=== PATIENT | male | born 1960 | race Two or more races ===

== ENCOUNTER 2019-11-29 10:46 | Inpatient (IN) | payer MEDICAID ==
[2019-11-29] VITALS (7 sets, daily range): BP systolic 112–145; BP diastolic 62–81
[~2019-11-29] VITALS: Ht 167.6 cm; Wt 68.5 kg
--- NOTE | 2019-11-29 11:00 | NUR ---
ED Nurse Note: pt brought in by ambulance from home due to SOB. per pt, he lives with his son and his son tested positive on Covid19. pt also got tested last week and result came out negative but SOB got worse gradually and it was untolerable this morning. room air saturation 65%. pt currently on non breather mask 15L/min and saturating at 95%. SOB and labored breathing noted. pt aao x4 and cooperative. pt is in gown and on rn cardiac.
[2019-11-29] MEDS ORDERED: cefTRIAXone 1 GM in NS 55 ML IV SCH (11:15)
[2019-11-29] MEDS ORDERED: Azithromycin 500 MG in NS 275 ML IV ONE (11:15)
[2019-11-29 11:33] LABS: ANION GAP 15 mmol/L (5-15); BLOOD UREA NITROGEN 19 mg/dL (7-18); CALCIUM 8.7 MG/DL (8.5-10.1); CARBON DIOXIDE 21 MMOL/L (21-32); CHLORIDE 101 MMOL/L (98-107); POTASSIUM 4.5 MMOL/L (3.5-5.1); SODIUM 137 MMOL/L (136-145)
[2019-11-29 11:43] LABS: HEMATOCRIT 44.3 % (42.0-52.0); HEMOGLOBIN 15.2 G/DL (14.2-18.0); MEAN CORPUSCULAR VOLUME 87 FL (80-99); PLATELET COUNT 368 K/UL (150-450); RED BLOOD COUNT 5.08 M/UL (4.70-6.10); RED CELL DISTRIBUTION WIDTH 11.5 % (11.6-14.8); WHITE BLOOD COUNT 13.4 K/UL (4.8-10.8)
[2019-11-29 11:46] LABS: ALANINE AMINOTRANSFERASE 84 U/L (12-78); ALBUMIN 2.6 G/DL (3.4-5.0); ALBUMIN/GLOBULIN RATIO 0.5 (1.0-2.7); ALKALINE PHOSPHATASE 132 U/L (46-116); ASPARTATE AMINO TRANSFERASE 69 U/L (15-37); BILIRUBIN,TOTAL 1.3 MG/DL (0.2-1.0); CREATINE KINASE 145 U/L (26-308)
[2019-11-29 11:48] LABS: BILIRUBIN,DIRECT 0.5 MG/DL (0.0-0.3)
--- NOTE | 2019-11-29 11:57 | NUR ---
ED Nurse Note: x-ray at bedside.
--- NOTE | 2019-11-29 12:01 | Emergency Room Report ---
History of Present Illness General Chief Complaint: Dyspnea/Respdistress Source: Patient, EMS Present Illness HPI This patient is brought in by EMS for difficulty breathing for the past 3 days. The patient's son is positive for COVID-19 and he has been living with his son. EMS state that on their arrival his room air oxygen saturation was 65%. He was put on 15 L nonrebreather mask and had improvement in his O2 saturations to the mid 90s. There are no other complaints. Allergies: Coded Allergies: No Known Allergies (Unverified , 11/29/19) COVID-19 Screening Contact w/high risk pt: Yes Recent Travel to affected area: No Experienced COVID-19 symptoms?: Yes COVID-19 symptoms experienced: Shortness of Breath, Cough Patient History Past Medical History: see triage record, HTN Social History: Denies: smoking, alcohol use, drug use Reviewed Nursing Documentation: PMH: Agreed; PSxH: Agreed Nursing Documentation-PMH Past Medical History: No History, Except For Hx Hypertension: Yes Review of Systems All Other Systems: negative except mentioned in HPI Physical Exam Vital Signs Date Time Temp Pulse Resp B/P (MAP) Pulse Ox O2 Delivery O2 Flow Rate FiO2 11/29/19 10:38 125 22 139/85 (103) 93 Non-Rebreather 15.0 Sp02 EP Interpretation: reviewed, abnormal General Appearance: alert, GCS 15, mild distress - Tachypnea Head: normocephalic, atraumatic Eyes: bilateral eye normal inspection ENT: hearing grossly normal, normal pharynx, no angioedema, normal voice Neck: normal inspection, full range of motion Respiratory: normal breath sounds, no retraction, no accessory muscle use, speaking full sentences - on NRB Cardiovascular #1: no edema, tachycardia Gastrointestinal: normal inspection Rectal: deferred Musculoskeletal: normal inspection, normal range of motion, non-tender Neurologic: alert, motor strength/tone normal, oriented x3, sensory intact, responsive, speech normal Psychiatric: judgement/insight normal, memory normal, mood/affect normal, no suicidal/homicidal ideation Skin: no rash, normal color Medical Decision Making Diagnostic Impression: Primary Impression: Suspected COVID-19 virus infection Additional Impressions: Pneumonia Respiratory distress ER Course This patient presents with suspected COVID-19 ARDS. The patient is alert and oriented and able to follow instructions appropriately. He does have hypoxemia , however, the patient's hypoxemia is responsive to low levels of CPAP. The patient is also able to follow instructions and follow proning protocols. I considered rapid sequence intubation in this patient, however, currently the evolving but current practice in COVID-19 ARDS is to defer intubation as long as the patient is able to tolerate noninvasive ventilation as intubation has proven to worsen outcome in this particular patient population presenting in this manner. IV fluids were held as currently this is also felt to worsen the clinical progress in these patients. There is also data coming out of [facility] where the center of the [place] epidemic lies currently that has shown in this particular patient population, IM epinephrine 0.3 mg, IV atropine 0.4 mg IV and oral montelukast has shown if to be implemented early in the emergency department that better outcomes occur in these patients and many times they do not need to be intubated. This set of medications were given in the emergency department without complication. The patient was given broad- spectrum antibiotics as a precaution, although, I suspect COVID-19. This patient will be admitted to the ICU. This patient was evaluated in the context of the global COVID-19 pandemic, which necessitated consideration that the patient might be at risk for infection with the [id number] virus that causes COVID-19. Institutional protocols and algorithms that pertain to the evaluation of patients at risk for COVID-19 and the state of rapid change based on information released by multiple regulatory bodies including the CDC and federal and state organizations. These policies and algorithms were followed during the patient' s care in the ED. This patient is critically ill. This patient required complex medical decision- making, aggressive intervention, extensive laboratory workup and monitoring. Critical care time: 40 minutes. SEE EMR. Mild leukocytosis. Low lymphocytes. Elevated lactate. EKG Diagnostic Results Rate: tachycardiac Rhythm: other - s.tachycardia ST Segments: no acute changes Rhythm Strip Diag. Results EP Interpretation: yes Rate: 110's Rhythm: no PVC's, no ectopy, other - S.tachycardia Chest X-Ray Diagnostic Results Chest X-Ray Diagnostic Results : Chest X-Ray Ordered: Yes # of Views/Limited/Complete: 1 View Indication: Shortness of Breath EP Interpretation: Yes Interpretation: other - Diffuse interstitial opacities Impression: Other - See ABOVE. Pulmonary edema. Electronically Signed by: Sue Najera DO Last Vital Signs Date Time Temp Pulse Resp B/P (MAP) Pulse Ox O2 Delivery O2 Flow Rate FiO2 11/29/19 10:38 125 22 139/85 (103) 93 Non-Rebreather 15.0 Status: improved Disposition: ADMITTED INPATIENT Condition: Critical Referrals: NOT CHOSEN IPA/,REFERRING (PCP) Sue Najera DO Nov 29, 2019 12:01
[2019-11-29] MEDS ORDERED: Montelukast 10mg tablet ORAL ONE (12:30)
[2019-11-29] MEDS ORDERED: EPINEPHrine 1mg/1ml Amp IM ONE (12:30)
[2019-11-29] MEDS ORDERED: Atropine Sulfate 0.4mg/ml inj IVP ONE (12:30)
--- NOTE | 2019-11-29 13:00 | NUR ---
ED Nurse Note: received verbal order to reposition pt to Lt side and alternate later. pt was directed to lie on Lt side.
--- NOTE | 2019-11-29 13:03 | Diagnostic Imaging Report ---
Indication: Cough Technique: One view of the chest Comparison: none Findings: There are peripheral bilateral hazy infiltrates. The heart size is normal. The pleural spaces are clear. Impression: Bilateral infiltrates, most likely pneumonia. Pulmonary edema also possibility.
--- NOTE | 2019-11-29 14:00 | NUR ---
ED Nurse Note: pt directed to lie on Rt side.
--- NOTE | 2019-11-29 14:48 | NUR ---
ED Nurse Note: Dr Aguayo and Dr. Olivares consulting about pt's RR being between 30 to 40.
--- NOTE | 2019-11-29 14:59 | History and Physical ---
History of Present Illness General Reason for Hospitalization: Dyspnea/Respdistress Present Illness HPI 59-year-old male with PMH of HTN presents with acute respiratory distress. History is limited due to pt being Kyrgyz speaking and in acute respiratory distress, belt glass sander phone used as well as milking machine technician in room acting as belt glass sander. Patient states he was short of breath for 3 days, has mild cough, no hemoptysis, states his son was tested positive for COVID who he lives with. Pt denies F/C, abd pain, dysuria or diarrhea. On admission patient's SPO2 was 60 % on room air, ER physician placed patient placed on nonrebreather with no improvement, was given 1 dose of epinephrine, montelukast and atropine and then was started on BiPAP. CXR reviewed w/ b/l infiltrates. Pt to be admitted to ICU for further treatment and care. PMH: HTN FH: reviewed and not pertinent SH: denies tobacco, ETOH Sx: denies Allergies: NKDA Allergies: Coded Allergies: No Known Allergies (Unverified , 11/29/19) COVID-19 Screening Contact w/high risk pt: Yes Recent Travel to affected area: No Experienced COVID-19 symptoms?: Yes COVID-19 symptoms experienced: Shortness of Breath, Cough Patient History Limited by: language barrier, medical condition Healthcare decision maker N Resuscitation status Advanced Directive on File Review of Systems Constitutional: Denies: no symptoms, see HPI, chills, sweats, fever, malaise, weakness, other Eye: Denies: no symptoms, see HPI, eye pain, blurred vision, tearing, double vision, nose pain, nose congestion, acuity changes, discharge, other ENT: Denies: no symptoms, see HPI, ear pain, ear discharge, nose pain, nose congestion, throat pain, throat swelling, mouth pain, hearing loss, nasal discharge, other Cardiovascular: Denies: no symptoms, see HPI, chest pain, edema, palpitations, syncope, PND, other Gastrointestinal: Denies: no symptoms, see HPI, abdominal pain, constipation, diarrhea, nausea, vomiting, melena, hematemesis, other Genitourinary: Denies: no symptoms, see HPI, discharge, dysuria, frequency, hematuria, pain, retention, incontinence, urgency, vag bleed/dc, other Musculoskeletal: Denies: no symptoms, see HPI, back pain, gout, joint pain, joint swelling, muscle pain, muscle stiffness, other Skin: Denies: no symptoms, see HPI, rash, change in color, change in hair/nails , dryness, lesions, other Physical Exam Physical Exam Narrative General: A&O x 3, in acute respiratory distress, on BiPAP HEENT: NCAT, EOMi CV: tachycardic on exam Pulm: good airway movement in lungs b/l, conversationaly dyspnea, RR on monitor showed 35-50 GI: Soft, nontender, nondistended, bowel sounds present Ext: No lower extremity edema bilaterally Skin: warm, well perfused appearing Msk: Joints symmetrical in upper extremity and lower extremity bilaterally, no joint swelling. Neuro: CN 2-12 grossly intact bilaterally, no focal signs. Last 24 Hour Vital Signs Date Time Temp Pulse Resp B/P (MAP) Pulse Ox O2 Delivery O2 Flow Rate FiO2 11/29/19 12:45 99 30 59 100 11/29/19 11:00 123 35 Non-Rebreather 15.0 11/29/19 11:00 98.9 124 35 126/79 95 Non-Rebreather 15.0 11/29/19 10:38 125 22 139/85 (103) 93 Non-Rebreather 15.0 Laboratory Tests Test 11/29/19 11:00 11/29/19 12:45 White Blood Count 13.4 K/UL (4.8-10.8) H Red Blood Count 5.08 M/UL (4.70-6.10) Hemoglobin 15.2 G/DL (14.2-18.0) Hematocrit 44.3 % (42.0-52.0) Mean Corpuscular Volume 87 FL (80-99) Mean Corpuscular Hemoglobin 30.0 PG (27.0-31.0) Mean Corpuscular Hemoglobin Concent 34.3 G/DL (32.0-36.0) Red Cell Distribution Width 11.5 % (11.6-14.8) L Platelet Count 368 K/UL (150-450) Mean Platelet Volume 5.9 FL (6.5-10.1) L Neutrophils (%) (Auto) % (45.0-75.0) Lymphocytes (%) (Auto) % (20.0-45.0) Monocytes (%) (Auto) % (1.0-10.0) Eosinophils (%) (Auto) % (0.0-3.0) Basophils (%) (Auto) % (0.0-2.0) Differential Total Cells Counted 100 Neutrophils % (Manual) 89 % (45-75) H Lymphocytes % (Manual) 2 % (20-45) L Monocytes % (Manual) 8 % (1-10) Eosinophils % (Manual) 0 % (0-3) Basophils % (Manual) 0 % (0-2) Band Neutrophils 1 % (0-8) Platelet Estimate Adequate Platelet Morphology Normal Red Blood Cell Morphology Normal Sodium Level 137 MMOL/L (136-145) Potassium Level 4.5 MMOL/L (3.5-5.1) Chloride Level 101 MMOL/L (98-107) Carbon Dioxide Level 21 MMOL/L (21-32) Anion Gap 15 mmol/L (5-15) Blood Urea Nitrogen 19 mg/dL (7-18) H Creatinine 1.0 MG/DL (0.55-1.30) Estimat Glomerular Filtration Rate > 60 mL/min (>60) Glucose Level 133 MG/DL (74-106) H Lactic Acid Level 3.30 mmol/L (0.4-2.0) H 2.10 mmol/L (0.66-2.22) Calcium Level 8.7 MG/DL (8.5-10.1) Total Bilirubin 1.3 MG/DL (0.2-1.0) H Direct Bilirubin 0.5 MG/DL (0.0-0.3) H Aspartate Amino Transf (AST/SGOT) 69 U/L (15-37) H Alanine Aminotransferase (ALT/SGPT) 84 U/L (12-78) H Alkaline Phosphatase 132 U/L (46-116) H Total Creatine Kinase 145 U/L (26-308) Creatine Kinase MB 2.0 NG/ML (0.0-3.6) Creatine Kinase MB Relative Index 1.3 Troponin I 0.000 ng/mL (0.000-0.056) Total Protein 8.2 G/DL (6.4-8.2) Albumin 2.6 G/DL (3.4-5.0) L Globulin 5.6 g/dL Albumin/Globulin Ratio 0.5 (1.0-2.7) L Height (Feet): 5 Height (Inches): 7.00 Weight (Pounds): 190 Medications Current Medications Medications (Trade) Dose Ordered Sig/Vicki Route PRN Reason Start Time Stop Time Status Last Admin Dose Admin Ceftriaxone Sodium 1 gm/ Sodium Chloride 55 ml @ 110 mls/hr Q24H IV 11/29/19 11:15 11/30/19 11:14 11/29/19 11:14 Dextrose (Dextrose 50%) 25 ml Q30M PRN IV Hypoglycemia 11/29/19 14:15 02/27/20 14:14 Dextrose (Dextrose 50%) 50 ml Q30M PRN IV Hypoglycemia 11/29/19 14:15 02/27/20 14:14 Ondansetron HCl (Zofran) 4 mg Q6H PRN IVP Nausea & Vomiting 11/29/19 14:15 12/29/19 14:14 Assessment/Plan Assessment/Plan: 59-year-old male with PMH of HTN presents with acute respiratory distress. #Acute Hypoxic Respiratory Distress #Sepsis 2/2 PNA #CAP #COVID exposure, high suspicion #Transaminitis -admit to critical care unit -pt is at high risk of rapid decompensation and requires ICU level of care -pt was given atropine, epinephrine, Singulair in ED -pt was started on BiPAP by ER -COVID-19 ordered, pending -droplet isolation/precautions -Lactic acid 3.5 on admission, improved to 2.10 -CXR reviewed: b/l infiltrates suspicious for PNA -Transaminitis likely reactive/2/2 possible COVID -cont. to monitor LFTs -BCx ordered and pending -EKG reviewed, sinus tach, HR 115, QTc 437 -trop negative x1, no CP at this time -obtain d-dimer -Cont. supplemental O2 to maintain goal SpO2 92-96% -D/w Motor Vehicle Field Representative, Dr. Cortes, pt may need to be intubated if RR remains high -d/w ID, Dr. Rodriguez, start hydroxychloroquine, azithromycin, ceftriaxone #HTN -pt does not know home medications -hydralazine PRN DVT PPX: Lovenox Time spent on encounter: 76 mins, 45 mins spent on critical care time. Critical Care Services performed include: EKG Review Hemodynamic measurement interpretation Laboratory data review and interpretation Radiology image review and interpretation Discussion of patient's care with ER physician, ICU team, Nursing staff, ID and Pulm. Time of note doesn't reflect time of encounter. Theodore Aguayo M.D. Nov 29, 2019 14:59
[2019-11-29] MEDS ORDERED: Hydroxychloroquine Fact Sheet MISC ONE (15:00)
--- NOTE | 2019-11-29 15:06 | NUR ---
ED Nurse Note: REPORT GIVEN TO DARYA DOOLEY BY MANUEL JIN RN.
--- NOTE | 2019-11-29 15:30 | NUR ---
NURSE NOTES: Report received from ED Nurse, Nate Mendoza, RN; however, pt remains in ED at this time as pt is on Airborne isolation and room is not ready as of yet.
--- NOTE | 2019-11-29 15:40 | NUR ---
ED Nurse Note: explained about Hydroxychloroquine and pt agreed.
--- NOTE | 2019-11-29 17:00 | NUR ---
ED Nurse Note: per CN in ICU, pt needs negative pressure room due to having Bipap. they are rearranging the room. will wait until ICU is ready with a room.
--- NOTE | 2019-11-29 19:05 | NUR ---
HAND-OFF: Report given to DARYA Carson. Pt is on their way up to the unit from the ED.
--- NOTE | 2019-11-29 19:06 | NUR ---
NURSE NOTES: Received report from DARYA Pires. patient arrived on unit via gurney from ER. patient awake alert oriented x4. respirations shallow and tachypnic on nonrebreather for transport and changed to CPAP FiO2 100% oxygen saturation 94%. right AC PIV gauge 20 clean and patent saline lock. skin warm dry intact with bilateral lower extremity rash up to and scattered over abdomen. temp 100.5F axillary. will continue to monitor. bed locked lowest position call light within reach.
--- NOTE | 2019-11-29 22:00 | NUR ---
NURSE NOTES: Paged Dr. Sroiano to report temp 100.6F axillary and abnormal labs. message left. awaiting call back. patient on CPAP oxygen saturation 93%. patient repositioned self. will continue to monitor.
--- NOTE | 2019-11-29 22:10 | NUR ---
NURSE NOTES: Dr. Lombardi returned page. order received, read back, and carried out. will continue to monitor.
[2019-11-30] VITALS (24 sets, daily range): BP systolic 99–142; BP diastolic 60–87
--- NOTE | 2019-11-30 | NUR ---
NURSE NOTES: patient awake alert and oriented. patient on CPAP FiO2 100% with oxygen saturation 95% and respirations tachypneic. BP 112/70 HR 112. patient denies pain. patient repositioned self. will continue to monitor.
--- NOTE | 2019-11-30 02:00 | NUR ---
NURSE NOTES: patient asleep arousable to name and oriented. BP 106/69 HR 95 RR 37 on CPAP with FiO2 100% and oxygen saturation 93%. patient kept NPO except for meds and ice. patient repositioned self. will continue to monitor.
--- NOTE | 2019-11-30 04:00 | NUR ---
NURSE NOTES: patient asleep arousable to name and oriented. patient on CPAP FiO2 100% with oxygen saturation 94%. BP 114/74 HR 100 Temp 98.8F axillary, RR 40 with no cough at this time. patient denies pain. patient used urinal to void 250ml dark marge urine. assisted bed bath, patient repositioned self. will continue to monitor.
--- NOTE | 2019-11-30 06:00 | NUR ---
NURSE NOTES: patient asleep arousable to name and oriented x4. patient on CPAP with oxygen saturation 93%. BP 123/80 HR 107, temp 98.9F axillary. right AC PIV gauge 20 clean and asymptomatic. skin warm dry with rashes scattered over abdomen. will continue to monitor.
--- NOTE | 2019-11-30 07:39 | NUR ---
HAND-OFF: Report given to DARYA Ambrose.
[2019-11-30 07:52] LABS: HEMATOCRIT 40.8 % (42.0-52.0); HEMOGLOBIN 14.5 G/DL (14.2-18.0); MEAN CORPUSCULAR VOLUME 88 FL (80-99); PLATELET COUNT 377 K/UL (150-450); RED BLOOD COUNT 4.66 M/UL (4.70-6.10); RED CELL DISTRIBUTION WIDTH 11.6 % (11.6-14.8); WHITE BLOOD COUNT 10.6 K/UL (4.8-10.8)
--- NOTE | 2019-11-30 08:00 | NUR ---
NURSE NOTES: Received report from Carrie Quiroga RN. Patient alert and oriented x 4, anxious and restless. ST 106 on cable engineer outside plant. Patient receiving O2 via CPAP with FiO2 100%, patient's respiratory rate is high 40s-low 50s, left message for Dr. Cortes. Right AC 20g IV site patent and asymptomatic. Bed locked in lowest position with side rails up x 3. All needs attended to. Call light within reach. Will continue to monitor.
[2019-11-30 08:19] LABS: ALANINE AMINOTRANSFERASE 68 U/L (12-78); ALBUMIN 2.2 G/DL (3.4-5.0); ALBUMIN/GLOBULIN RATIO 0.4 (1.0-2.7); ALKALINE PHOSPHATASE 126 U/L (46-116); ANION GAP 12 mmol/L (5-15); ASPARTATE AMINO TRANSFERASE 57 U/L (15-37); BILIRUBIN,TOTAL 1.2 MG/DL (0.2-1.0); BLOOD UREA NITROGEN 24 mg/dL (7-18); CALCIUM 9.2 MG/DL (8.5-10.1); CARBON DIOXIDE 23 MMOL/L (21-32); CHLORIDE 103 MMOL/L (98-107); CREATININE 0.9 MG/DL (0.55-1.30); POTASSIUM 4.6 MMOL/L (3.5-5.1); SODIUM 137 MMOL/L (136-145)
[2019-11-30 08:24] LABS: BILIRUBIN,DIRECT 0.6 MG/DL (0.0-0.3)
--- NOTE | 2019-11-30 08:32 | NUR ---
NURSE NOTES: Dr. Soriano notified of upward trending lactic acid, previously 2.10 and now 2.30, lactic acid reflex order already in place. Also made aware of respiratory rate as high as 50s, patient very anxious. No new orders received. Will continue to monitor.
--- NOTE | 2019-11-30 09:14 | NUR ---
NURSE NOTES: Received call back from Dr. Cortes, notified of patient's respiratory rate as high as low 50s on CPAP with FiO2 100%. Received order for ABG. Will report results.
--- NOTE | 2019-11-30 10:05 | NUR ---
NURSE NOTES: Dr. Duarte at bedside, covering for Dr. Soriano, made aware of patient's status, awaiting ABG results. Patient needs DVT and GI prophylaxis. Dr. Duarte to place orders.
--- NOTE | 2019-11-30 10:43 | NUR ---
NURSE NOTES: Left message for Dr. Cortes regarding ABG results. Awaiting call back.
--- NOTE | 2019-11-30 11:30 | NUR ---
NURSE NOTES: Dr. Cortes at bedside, aware of ABG results. Patient's respiratory rate still between 30-50s
[2019-11-30] MEDS: Pantoprazole Inj IVP SCH (12:52)
[2019-11-30] MEDS: Heparin 5000 units/ml inj SUBQ SCH ×2 (13:01→21:01)
--- NOTE | 2019-11-30 13:20 | NUR ---
NURSE NOTES: Lactic acid drawn and sent to lab.
--- NOTE | 2019-11-30 13:41 | General Progress Note ---
Assessment/Plan Assessment/Plan: 59-year-old male with PMH of HTN presents with acute respiratory distress. #Acute Hypoxic Respiratory Failure #Severe sepsis #COVID19 positive #CAP #Transaminitis -continue ICU level of care -pt is at high risk of rapid decompensation and requires continued ICU level of care -continue BiPAP -COVID-19 positive -droplet isolation/precautions -Lactic acid 3.5 on admission, improved -CXR reviewed: b/l infiltrates suspicious for PNA -Transaminitis likely reactive/2/2 possible COVID -cont. to monitor LFTs -BCx ordered and pending -EKG reviewed, sinus tach, HR 115, QTc 437 -trop negative x1, no CP at this time -obtain d-dimer -Cont. supplemental O2 to maintain goal SpO2 92-96% -D/w Technical Assistant, Dr. Cortes, pt may need to be intubated if RR remains high -d/w ID, Dr. Rodriguez, cont hydroxychloroquine, azithromycin, ceftriaxone #HTN -CTM -hydralazine PRN DVT PPX: Lovenox Time spent on encounter: 75 mins, 40 mins spent on critical care time. Critical Care Services performed include: EKG Review Hemodynamic measurement interpretation Laboratory data review and interpretation Radiology image review and interpretation ABG interpretation Discussion of patient's care with ICU team, Nursing staff, ID and Pulm. Time of note doesn't reflect time of encounter. Subjective Date patient seen: Nov 30, 2019 Time patient seen: 09:00 ROS Limited/Unobtainable: Yes Allergies: Coded Allergies: No Known Allergies (Unverified , 11/29/19) Subjective Follow up for acute hypoxic resp failure, COVID19 positive Patient remains on NIPPV 100% fiO2 Spoke with RN at bedside Objective Last 24 Hour Vital Signs Date Time Temp Pulse Resp B/P (MAP) Pulse Ox O2 Delivery O2 Flow Rate FiO2 11/30/19 13:19 105 44 93 100 11/30/19 13:00 109 43 120/72 (88) 91 11/30/19 12:00 Bi-pap 11/30/19 12:00 99.1 111 43 117/70 (86) 92 11/30/19 12:00 100 11/30/19 11:57 110 11/30/19 11:00 106 43 117/75 (89) 94 11/30/19 10:49 107 38 94 100 11/30/19 10:00 109 46 128/75 (92) 93 11/30/19 09:00 106 44 116/78 (91) 94 11/30/19 09:00 103 45 93 100 11/30/19 08:42 107 11/30/19 08:00 98.0 108 34 121/72 (88) 95 11/30/19 08:00 Bi-pap 11/30/19 08:00 100 11/30/19 07:00 111 30 116/74 (88) 94 11/30/19 06:59 104 47 94 100 11/30/19 06:00 107 45 123/80 (94) 93 11/30/19 05:00 96 43 107/68 (81) 93 11/30/19 04:00 100 11/30/19 04:00 97 11/30/19 04:00 98.8 100 42 114/74 (87) 94 11/30/19 04:00 Bi-pap 11/30/19 03:00 94 34 119/72 (88) 96 11/30/19 02:00 97 42 104/67 (79) 92 11/30/19 01:00 97 39 99/60 (73) 90 11/30/19 00:00 Bi-pap 11/30/19 00:00 100.0 107 43 106/81 (89) 92 11/29/19 23:29 100.3 11/29/19 23:05 95 42 96 100 11/29/19 23:00 114 36 145/77 (99) 88 11/29/19 22:00 120 34 112/80 (91) 91 11/29/19 21:30 115 42 118/62 (80) 92 11/29/19 21:00 111 37 117/77 (90) 93 11/29/19 20:30 110 38 132/81 (98) 96 11/29/19 20:00 113 11/29/19 20:00 100.5 115 40 125/81 (96) 94 11/29/19 20:00 Bi-pap 11/29/19 20:00 113 11/29/19 20:00 100 11/29/19 19:40 Bi-Pap 11/29/19 19:39 Bi-Pap 11/29/19 19:00 107 36 92 Bi-Pap 100 11/29/19 19:00 109 33 95 100 11/29/19 17:05 92 47 96 100 11/29/19 15:05 82 50 95 100 Intake and Output 11/29/19 11/30/19 19:00 07:00 Intake Total 330 ml Output Total 450 ml Balance 330 ml -450 ml IV Total 330 ml Output Urine Total 450 ml # Voids 2 Laboratory Tests 11/30/19 06:32: White Blood Count 10.6, Red Blood Count 4.66L, Hemoglobin 14.5, Hematocrit 40.8L , Mean Corpuscular Volume 88, Mean Corpuscular Hemoglobin 31.1H, Mean Corpuscular Hemoglobin Concent 35.4, Red Cell Distribution Width 11.6, Platelet Count 377, Mean Platelet Volume 5.7L, Neutrophils (%) (Auto) , Lymphocytes (%) ( Auto) , Monocytes (%) (Auto) , Eosinophils (%) (Auto) , Basophils (%) (Auto) , Differential Total Cells Counted 100, Neutrophils % (Manual) 90H, Lymphocytes % (Manual) 6L, Monocytes % (Manual) 4, Eosinophils % (Manual) 0, Basophils % ( Manual) 0, Band Neutrophils 0, Platelet Estimate Adequate, Platelet Morphology Normal, Red Blood Cell Morphology Normal, Sodium Level 137, Potassium Level 4.6 , Chloride Level 103, Carbon Dioxide Level 23, Anion Gap 12, Blood Urea Nitrogen 24H, Creatinine 0.9, Estimat Glomerular Filtration Rate > 60, Glucose Level 112H, Lactic Acid Level 2.30H, Calcium Level 9.2, Total Bilirubin 1.2H, Direct Bilirubin 0.6H, Aspartate Amino Transf (AST/SGOT) 57H, Alanine Aminotransferase (ALT/SGPT) 68, Alkaline Phosphatase 126H, Total Protein 7.5, Albumin 2.2L, Globulin 5.3, Albumin/Globulin Ratio 0.4L 11/30/19 10:15: Arterial Blood pH 7.409, Arterial Blood Partial Pressure CO2 35.6, Arterial Blood Partial Pressure O2 74.2L, Arterial Blood HCO3 22.0, Arterial Blood Oxygen Saturation 94.6L, Arterial Blood Base Excess -2.0, Melecio Test Positive 11/30/19 12:30: Lactic Acid Level [Pending] Height (Feet): 5 Height (Inches): 6.00 Weight (Pounds): 190 General Appearance: lethargic, other - On BiPAP Cardiovascular: normal rate, regular rhythm Respiratory/Chest: lungs clear, normal breath sounds, no respiratory distress Abdomen: non tender, soft Bernabe Cadet MD Nov 30, 2019 13:41
--- NOTE | 2019-11-30 15:15 | NUR ---
NURSE NOTES: Ceftriaxone 1g IV ordered by Dr. Casillas, awaiting pharmacy delivery of medication.
[2019-11-30] MEDS: cefTRIAXone 1 GM in D5W 50 ML IVPB SCH (16:18)
--- NOTE | 2019-11-30 17:13 | NUR ---
NURSE NOTES: Patient requesting water, educated on NPO status and high risk of aspiration, verbalized understanding, reinforcement needed.
--- NOTE | 2019-11-30 17:40 | NUR ---
NURSE NOTES: Dr. Casillas at bedside, updated on patient's status, afebrile, due meds given.
--- NOTE | 2019-11-30 18:13 | NUR ---
NURSE NOTES: Dr. Duarte notified of increasing lactic acid level of 2.5. Ordered next lactic acid lab draw for 6 hours after last draw.
--- NOTE | 2019-11-30 18:27 | Infectious Diseases Prog Note ---
Assessment/Plan Assessment/Plan Full consult dictated; A) 1) covid-19 virus infection with pna, ? cap, sepsis, leukocytosis, fevers 2) on bipap, hypoxia 3) allergies - nkda P) 1) ceftriaxone, doxycycline 2) hydroxychloroquine for 5 days 3) icu care 4) thank you Subjective Allergies: Coded Allergies: No Known Allergies (Unverified , 11/29/19) Objective Vital Signs Last 24 Hour Vital Signs Date Time Temp Pulse Resp B/P (MAP) Pulse Ox O2 Delivery O2 Flow Rate FiO2 11/30/19 17:22 112 42 94 100 11/30/19 17:00 110 39 140/87 (104) 92 11/30/19 16:01 111 11/30/19 16:00 Bi-pap 11/30/19 16:00 97.8 111 41 130/76 (94) 91 11/30/19 16:00 100 11/30/19 15:00 105 46 90 100 11/30/19 15:00 110 40 112/77 (89) 93 11/30/19 14:00 105 41 102/61 (75) 92 11/30/19 13:19 105 44 93 100 11/30/19 13:00 109 43 120/72 (88) 91 11/30/19 12:00 Bi-pap 11/30/19 12:00 99.1 111 43 117/70 (86) 92 11/30/19 12:00 100 11/30/19 11:57 110 11/30/19 11:00 106 43 117/75 (89) 94 11/30/19 10:49 107 38 94 100 11/30/19 10:00 109 46 128/75 (92) 93 11/30/19 09:00 106 44 116/78 (91) 94 11/30/19 09:00 103 45 93 100 11/30/19 08:42 107 11/30/19 08:00 98.0 108 34 121/72 (88) 95 11/30/19 08:00 Bi-pap 11/30/19 08:00 100 11/30/19 07:00 111 30 116/74 (88) 94 11/30/19 06:59 104 47 94 100 11/30/19 06:00 107 45 123/80 (94) 93 11/30/19 05:00 96 43 107/68 (81) 93 11/30/19 04:00 100 11/30/19 04:00 97 11/30/19 04:00 98.8 100 42 114/74 (87) 94 11/30/19 04:00 Bi-pap 11/30/19 03:00 94 34 119/72 (88) 96 11/30/19 02:00 97 42 104/67 (79) 92 11/30/19 01:00 97 39 99/60 (73) 90 11/30/19 00:00 Bi-pap 11/30/19 00:00 100.0 107 43 106/81 (89) 92 11/29/19 23:29 100.3 11/29/19 23:05 95 42 96 100 11/29/19 23:00 114 36 145/77 (99) 88 11/29/19 22:00 120 34 112/80 (91) 91 11/29/19 21:30 115 42 118/62 (80) 92 11/29/19 21:00 111 37 117/77 (90) 93 11/29/19 20:30 110 38 132/81 (98) 96 11/29/19 20:00 113 11/29/19 20:00 100.5 115 40 125/81 (96) 94 11/29/19 20:00 Bi-pap 11/29/19 20:00 113 11/29/19 20:00 100 11/29/19 19:40 Bi-Pap 11/29/19 19:39 Bi-Pap 11/29/19 19:00 107 36 92 Bi-Pap 100 11/29/19 19:00 109 33 95 100 Height (Feet): 5 Height (Inches): 6.00 Weight (Pounds): 190 Laboratory Tests Test 11/30/19 06:32 11/30/19 10:15 11/30/19 12:30 11/30/19 17:10 White Blood Count 10.6 K/UL (4.8-10.8) Red Blood Count 4.66 M/UL (4.70-6.10) L Hemoglobin 14.5 G/DL (14.2-18.0) Hematocrit 40.8 % (42.0-52.0) L Mean Corpuscular Volume 88 FL (80-99) Mean Corpuscular Hemoglobin 31.1 PG (27.0-31.0) H Mean Corpuscular Hemoglobin Concent 35.4 G/DL (32.0-36.0) Red Cell Distribution Width 11.6 % (11.6-14.8) Platelet Count 377 K/UL (150-450) Mean Platelet Volume 5.7 FL (6.5-10.1) L Neutrophils (%) (Auto) % (45.0-75.0) Lymphocytes (%) (Auto) % (20.0-45.0) Monocytes (%) (Auto) % (1.0-10.0) Eosinophils (%) (Auto) % (0.0-3.0) Basophils (%) (Auto) % (0.0-2.0) Differential Total Cells Counted 100 Neutrophils % (Manual) 90 % (45-75) H Lymphocytes % (Manual) 6 % (20-45) L Monocytes % (Manual) 4 % (1-10) Eosinophils % (Manual) 0 % (0-3) Basophils % (Manual) 0 % (0-2) Band Neutrophils 0 % (0-8) Platelet Estimate Adequate Platelet Morphology Normal Red Blood Cell Morphology Normal Sodium Level 137 MMOL/L (136-145) Potassium Level 4.6 MMOL/L (3.5-5.1) Chloride Level 103 MMOL/L (98-107) Carbon Dioxide Level 23 MMOL/L (21-32) Anion Gap 12 mmol/L (5-15) Blood Urea Nitrogen 24 mg/dL (7-18) H Creatinine 0.9 MG/DL (0.55-1.30) Estimat Glomerular Filtration Rate > 60 mL/min (>60) Glucose Level 112 MG/DL (74-106) H Lactic Acid Level 2.30 mmol/L (0.4-2.0) H 2.10 mmol/L (0.4-2.0) H 2.50 mmol/L (0.66-2.22) H Calcium Level 9.2 MG/DL (8.5-10.1) Total Bilirubin 1.2 MG/DL (0.2-1.0) H Direct Bilirubin 0.6 MG/DL (0.0-0.3) H Aspartate Amino Transf (AST/SGOT) 57 U/L (15-37) H Alanine Aminotransferase (ALT/SGPT) 68 U/L (12-78) Alkaline Phosphatase 126 U/L (46-116) H Total Protein 7.5 G/DL (6.4-8.2) Albumin 2.2 G/DL (3.4-5.0) L Globulin 5.3 g/dL Albumin/Globulin Ratio 0.4 (1.0-2.7) L Arterial Blood pH 7.409 (7.350-7.450) Arterial Blood Partial Pressure CO2 35.6 mmHg (35.0-45.0) Arterial Blood Partial Pressure O2 74.2 mmHg (75.0-100.0) L Arterial Blood HCO3 22.0 mmol/L (22.0-26.0) Arterial Blood Oxygen Saturation 94.6 % (95-100) L Arterial Blood Base Excess -2.0 (-2-2) Melecio Test Positive Current Medications Medications (Trade) Dose Ordered Sig/Vicki Route PRN Reason Start Time Stop Time Status Last Admin Dose Admin Acetaminophen (Tylenol) 650 mg Q6H PRN ORAL Temp >100.5 11/29/19 21:00 12/29/19 20:59 11/29/19 22:59 Ceftriaxone Sodium 1 gm/ Dextrose 50 ml @ 100 mls/hr Q24H IVPB 11/30/19 15:15 12/07/19 15:14 11/30/19 16:18 Dextrose (Dextrose 50%) 25 ml Q30M PRN IV Hypoglycemia 11/29/19 14:15 02/27/20 14:14 Dextrose (Dextrose 50%) 50 ml Q30M PRN IV Hypoglycemia 11/29/19 14:15 02/27/20 14:14 Doxycycline Hyclate 100 mg/ Dextrose 100 ml @ 100 mls/hr Q12HR IV 11/30/19 21:00 12/07/19 20:59 Heparin Sodium (Porcine) (Heparin 5000 units/ml) 5,000 units EVERY 8 HOURS SUBQ 11/30/19 14:00 01/14/20 13:59 11/30/19 13:01 Hydralazine HCl (Apresoline) 10 mg Q4H PRN IV For High Blood Pressure 11/29/19 15:15 02/27/20 15:14 Hydroxychloroquine Sulfate (Plaquenil) 200 mg 0900,2100 ORAL 11/30/19 09:00 4/21/20 21:01 11/30/19 09:11 Ondansetron HCl (Zofran) 4 mg Q6H PRN IVP Nausea & Vomiting 11/29/19 14:15 12/29/19 14:14 Pantoprazole (Protonix) 40 mg DAILY IVP 11/30/19 12:15 12/30/19 12:14 11/30/19 12:52 Ilsa Rodriguez MD Nov 30, 2019 18:27
--- NOTE | 2019-11-30 18:58 | NUR ---
HAND-OFF: Report given to Carrie Quiroga RN.
--- NOTE | 2019-11-30 19:00 | NUR ---
NURSE NOTES: patient received from DARYA Ambrose. patient awake alert oriented x4. BP 132/82 HR 110 RR 38 with patient on CPAP with FiO2 100%. patient denies pain. right AC PIV gauge 20 clean and asymptomatic. will continue to monitor. bed locked lowest position call light within reach.
--- NOTE | 2019-11-30 19:57 | NUR ---
RESPIRATORY NOTE: Received pt on CPAP 10, 100%. Pt is on a Full Face mask, skin intact, no redness/breakdowns noted. Foam tape applied on forehead/cheeks/chin to prevent mask irritations. Pt is alert/awake, follows commands. B/S louise. diminished, nonproductive cough. BiPAP plugged into red outlet, alarms on & audible. Will continue to monitor pt.
--- NOTE | 2019-11-30 21:15 | Consultation ---
DATE OF CONSULTATION: 11/30/2019 PULMONARY CONSULTATION HISTORY OF PRESENT ILLNESS: This is a 59-year-old male who was admitted overnight to the ICU with respiratory distress. The patient has a previous history of hypertension only, however, has been living at home with other members who have tested positive for COVID-19. The patient came in shortness of breath. He was placed on a BiPAP by the ER physician. Currently, he remains on CPAP, however, is tachypneic. ABG is adequate with pO2 of 73 on 100% through CPAP. X-ray shows peripheral densities suggestive of COVID-19. The patient denies any hemoptysis or sore throat. The patient did receive epinephrine yesterday and atropine and was placed on CPAP. PAST MEDICAL HISTORY: Hypertension. PAST SURGICAL HISTORY: None. SOCIAL HISTORY: Denies alcohol, tobacco usage. ALLERGIES: None. REVIEW OF SYSTEMS: Denies any headaches, hematemesis, melena, hematochezia, night sweats, or weight loss. PHYSICAL EXAMINATION: GENERAL: Reveals a 59-year-old male. VITAL SIGNS: Blood pressure is 130/60, heart rate 120, respirations 42, O2 saturation 96% on CPAP. HEENT: Unremarkable. CHEST: Decreased breath sounds bilaterally with normal heart sounds. ABDOMEN: Soft. EXTREMITIES: There is no edema. LABORATORY AND DIAGNOSTIC DATA: ABG shows pH 7.40, pCO2 35, pO2 74. CBC and chemistry is unremarkable. Chemistries are normal except for a lactic acid of 3.3, now 2.3. IMPRESSION: 1. Bilateral pneumonia. 2. High suspicion of COVID-19. 3. Impending respiratory failure. DISCUSSION: Admit. Keep in ICU. Keep on isolation. Broad-spectrum antibiotics with the addition of Plaquenil as well as azithromycin. Blood pressure control. Low threshold for intubation. We will follow carefully. Sushil Cortes M.D. DR: Annemarie JOB#: [id number] CC: SABRA
--- NOTE | 2019-11-30 22:00 | NUR ---
NURSE NOTES: patient awake alert and oriented. BP115/71 HR 110 RR 43 Temp 100.6F axillary. prn tylenol administered. patient on CPAP 10 FiO2 100% oxygen saturation 96%. patient denies pain. right forearm Gauge 20 PIV started. patient voided in urinal dark marge urine.
[2019-12-01] VITALS (24 sets, daily range): BP systolic 104–151; BP diastolic 63–94
--- NOTE | 2019-12-01 | NUR ---
NURSE NOTES: patient awake alert and oriented. BP104/69 HR 103 RR 37. patient on CPAP 10 FiO2 80% oxygen saturation 94%. patient denies pain. right forearm Gauge 20 PIV clean and asymptomatic. patient repositioned self.
--- NOTE | 2019-12-01 02:00 | NUR ---
NURSE NOTES: patient awake alert and oriented. BP112/66 HR 102 RR 39 and afebrile. patient on CPAP 10 FiO2 80% oxygen saturation 95%. patient stated eye dryness, RT changed CPAP mask. right forearm Gauge 20 PIV clean and asymptomatic. patient repositioned self. will continue to monitor.
--- NOTE | 2019-12-01 04:00 | NUR ---
NURSE NOTES: patient awake alert and oriented. BP126/79 HR 105 RR 46 and afebrile. patient on CPAP 10 FiO2 80% oxygen saturation 99%. right forearm Gauge 20 PIV clean and asymptomatic. patient repositioned self, and assisted with bath. patient swabed for MRSA nares but refused VRE rectal swab. will continue to monitor.
--- NOTE | 2019-12-01 05:14 | Consultation ---
DATE OF CONSULTATION: 11/30/2019 INFECTIOUS DISEASES CONSULTATION CONSULTING PHYSICIAN: Ilsa Rodriguez MD. ATTENDING PHYSICIAN: Dorian Soriano MD. REFERRING PHYSICIAN: Dorian Soriano MD, and Dr. Aguayo. REASON FOR CONSULTATION: COVID-19 virus infection, pneumonia, sepsis, leukocytosis, fevers. CHIEF COMPLAINT: The patient's chief complaint coming into the hospital is COVID-19 virus infection. HISTORY OF PRESENT ILLNESS: This is a 59-year-old male who was in the ICU on BiPAP, currently with hypoxia. The patient is positive for COVID-19 virus infection with pneumonia. The patient is septic with elevated white count, fevers, and possible community-acquired pneumonia. Infectious Diseases consultation was requested. He is on doxycycline, Rocephin, and hydroxychloroquine. REVIEW OF SYSTEMS: CONSTITUTIONAL: The patient with limited review of systems, on BiPAP, short of breath. He has fevers. No pressors. CARDIAC: No pressors. GASTROINTESTINAL: No nausea, vomiting, or diarrhea. GENITOURINARY: He has a Joe. PULMONARY: He is short of breath and hypoxic. PAST MEDICAL HISTORY: The patient has a past medical history of hypertension. No diabetes history. ALLERGIES: No known drug allergies. SOCIAL HISTORY: Negative for smoking, alcohol, or drug abuse. FAMILY HISTORY: Noncontributory. MEDICATIONS: Noted and reviewed. He is on doxycycline, Rocephin, hydroxychloroquine, Protonix, hydralazine, Zofran, and IV fluids. PHYSICAL EXAMINATION: VITAL SIGNS: Temperature 97.8, pulse rate 112, respiratory rate 42, blood pressure 140/87, saturation 94% on FiO2 to 100% on BiPAP. T-max 100.5. GENERAL: Short of breath, on BiPAP. HEART: Regular. No gallop or murmur. Tachycardic. ABDOMEN: Soft. Positive bowel sounds. LUNGS: Bilateral rhonchi and rales. SKIN: No rash. MUSCULOSKELETAL: No effusion. LINE SITES: Without phlebitis. PERIPHERAL VASCULAR: No cyanosis. GENITOURINARY: He has a Joe. Urine is slightly cloudy. NEUROLOGIC: Alert and responsive. LABORATORY AND DIAGNOSTIC DATA: On admission, white count 13.4, hemoglobin 15.2. Now, white count 10.6, hemoglobin 14.5. Creatinine 0.9. Lactic acid is elevated. LFTs were elevated. Cultures pending. Imaging studies, chest x-ray with bilateral infiltrates, most likely pneumonia. Per the records, COVID-19 virus PCR testing positive. ASSESSMENT AND PLAN: 1. The patient has COVID-19 virus infection with pneumonia, rule out community-acquired pneumonia, sepsis, leukocytosis, and fevers. Continue Rocephin and doxycycline to cover CAP pneumonia and sepsis. Continue hydroxychloroquine for 5-day course. Continue BiPAP. The patient may need intubation. Continue the supportive care and ICU care. Prognosis is quite guarded. 2. Hypertension. 3. No known allergies. 4. Social history negative. 5. Family history noncontributory. 6. MAR was noted. 7. Case discussed with RN. 8. Continue treatment per primary consultants. Ilsa Rodriguez M.D. DR: José JOB#: [id number] CC:
--- NOTE | 2019-12-01 06:00 | NUR ---
NURSE NOTES: patient awake alert and oriented. BP104/53 HR 115 RR 52 and afebrile. patient on CPAP 10 FiO2 80% oxygen saturation 99%. patient encouraged to deep breath, patient verbalized understanding. right forearm Gauge 20 PIV clean and asymptomatic. patient repositioned self, will continue to monitor.
[2019-12-01] MEDS: Heparin 5000 units/ml inj SUBQ SCH ×3 (06:14→20:13)
[2019-12-01 06:44] LABS: HEMATOCRIT 40.6 % (42.0-52.0); HEMOGLOBIN 14.1 G/DL (14.2-18.0); MEAN CORPUSCULAR VOLUME 89 FL (80-99); PLATELET COUNT 453 K/UL (150-450); RED BLOOD COUNT 4.56 M/UL (4.70-6.10); RED CELL DISTRIBUTION WIDTH 11.6 % (11.6-14.8); WHITE BLOOD COUNT 15.8 K/UL (4.8-10.8)
[2019-12-01 07:24] LABS: ALANINE AMINOTRANSFERASE 63 U/L (12-78); ALBUMIN 2.2 G/DL (3.4-5.0); ALBUMIN/GLOBULIN RATIO 0.4 (1.0-2.7); ALKALINE PHOSPHATASE 121 U/L (46-116); ANION GAP 13 mmol/L (5-15); ASPARTATE AMINO TRANSFERASE 46 U/L (15-37); BILIRUBIN,TOTAL 1.3 MG/DL (0.2-1.0); BLOOD UREA NITROGEN 26 mg/dL (7-18); CARBON DIOXIDE 25 MMOL/L (21-32); CHLORIDE 103 MMOL/L (98-107); CREATININE 0.9 MG/DL (0.55-1.30); POTASSIUM 4.4 MMOL/L (3.5-5.1); SODIUM 140 MMOL/L (136-145)
[2019-12-01 07:27] LABS: BILIRUBIN,DIRECT 0.6 MG/DL (0.0-0.3)
--- NOTE | 2019-12-01 07:30 | NUR ---
HAND-OFF: Report given to DARYA Jacome.
--- NOTE | 2019-12-01 08:38 | Diagnostic Imaging Report ---
EXAM: XR Chest, 1 View CLINICAL HISTORY: ABN CHST TECHNIQUE: Frontal view of the chest. COMPARISON: Chest x-ray dated 11/29/19 FINDINGS: Lungs: Persistent diffuse peripheral groundglass opacities, not significantly changed, concerning for pneumonia. Pleural space: Unremarkable. The costophrenic angles are sharp. No visible pneumothorax. Heart: Unremarkable. No cardiomegaly. Mediastinum: Unremarkable. Bones/joints: Mild degenerative changes throughout the visualized spine. Tubes, lines and devices: Telemetry leads overlie the thorax. IMPRESSION: No significant change compared to the prior chest x-ray. Persistent diffuse peripheral groundglass opacities, concerning for pneumonia.
[2019-12-01] MEDS: Pantoprazole Inj IVP SCH (09:30)
--- NOTE | 2019-12-01 10:01 | NUR ---
NURSE NOTES: Dr. Cotres updated on patient respiratory status while on CPAP with pressure of 10 and on fio2 at 100%. he still remains with rr of 35-43 shallow and fast
--- NOTE | 2019-12-01 10:54 | Pulmonology Progress Note ---
Assessment/Plan Assessment/Plan IMPRESSION: 1. Bilateral pneumonia. 2. High suspicion of COVID-19. 3. Impending respiratory failure. DISCUSSION: May need to be intubated Keep in ICU. Keep on isolation. Broad-spectrum antibiotics with the addition of Plaquenil as well as azithromycin. Blood pressure control. Low threshold for intubation. Patient agrees, I will follow carefully. Sushil Cortes M.D. Subjective Interval Events: Remains on BiPAP; [id number]% ; RR 45 Constitutional: Reports: no symptoms HEENT: Repors: no symptoms Respiratory: Reports: dry cough, shortness of breath Cardiovascular: Reports: no symptoms Gastrointestinal/Abdominal: Reports: no symptoms Genitourinary: Reports: no symptoms Allergies: Coded Allergies: No Known Allergies (Unverified , 11/29/19) Objective Last 24 Hour Vital Signs Date Time Temp Pulse Resp B/P (MAP) Pulse Ox O2 Delivery O2 Flow Rate FiO2 12/01/19 10:00 119 47 133/77 (95) 100 12/01/19 09:00 113 46 128/63 (84) 97 12/01/19 09:00 Bi-pap 12/01/19 08:36 123 47 96 100 12/01/19 08:00 98.3 122 48 132/75 (94) 97 12/01/19 08:00 100 12/01/19 08:00 122 12/01/19 07:02 119 49 95 100 12/01/19 07:00 130 42 138/85 (102) 87 12/01/19 06:00 117 42 128/76 (93) 100 12/01/19 05:23 115 47 97 100 12/01/19 05:00 110 46 134/73 (93) 98 12/01/19 04:00 80 12/01/19 04:00 Bi-pap 12/01/19 04:00 98.1 109 43 126/78 (94) 100 12/01/19 04:00 106 12/01/19 03:21 107 45 95 100 12/01/19 03:00 101 37 123/80 (94) 95 12/01/19 02:00 102 39 112/66 (81) 95 12/01/19 01:08 103 45 95 100 12/01/19 01:00 97 37 111/63 (79) 97 12/01/19 00:00 Bi-pap 12/01/19 00:00 98.9 106 34 104/69 (81) 93 11/30/19 23:21 111 47 99 100 11/30/19 23:00 109 39 115/74 (88) 96 11/30/19 22:32 99.9 11/30/19 22:00 113 37 124/75 (91) 99 11/30/19 21:11 112 48 98 100 11/30/19 21:00 114 40 142/79 (100) 98 11/30/19 20:00 100.0 110 47 134/79 (97) 97 11/30/19 20:00 114 11/30/19 20:00 Bi-pap 11/30/19 20:00 100 11/30/19 19:54 112 43 93 100 11/30/19 19:00 109 34 135/75 (95) 92 11/30/19 18:00 112 44 131/78 (95) 92 11/30/19 17:22 112 42 94 100 11/30/19 17:00 110 39 140/87 (104) 92 11/30/19 16:01 111 11/30/19 16:00 Bi-pap 11/30/19 16:00 97.8 111 41 130/76 (94) 91 11/30/19 16:00 100 11/30/19 15:00 105 46 90 100 11/30/19 15:00 110 40 112/77 (89) 93 11/30/19 14:00 105 41 102/61 (75) 92 11/30/19 13:19 105 44 93 100 11/30/19 13:00 109 43 120/72 (88) 91 11/30/19 12:00 Bi-pap 11/30/19 12:00 99.1 111 43 117/70 (86) 92 11/30/19 12:00 100 20 11:57 110 11/30/19 11:00 106 43 117/75 (89) 94 Intake and Output 11/30/19 12/01/19 19:00 07:00 Intake Total 100 ml 100 ml Output Total 400 ml 650 ml Balance -300 ml -550 ml Intake Oral 50 ml 0 ml IV Total 50 ml 100 ml Output Urine Total 400 ml 650 ml # Voids 1 3 General Appearance: no acute distress HEENT: normocephalic Respiratory/Chest: decreased breath sounds Cardiovascular: normal peripheral pulses, tachycardia Abdomen: normal bowel sounds Microbiology Date/Time Source Procedure Growth Status 11/29/19 11:00 Blood Blood Culture - Preliminary NO GROWTH AFTER 24 HOURS Resulted 11/29/19 10:45 Blood Blood Culture - Preliminary NO GROWTH AFTER 24 HOURS Resulted 11/29/19 11:00 Nasopharynx Coronavirus COVID-19 PCR ([facility]) - Final Complete Laboratory Tests 11/30/19 12:30: Lactic Acid Level 2.10H 11/30/19 17:10: Lactic Acid Level 2.50H 11/30/19 20:50: Lactic Acid Level 2.30H 12/01/19 05:20: Lactic Acid Level 2.10H, White Blood Count 15.8H, Red Blood Count 4.56L, Hemoglobin 14.1L, Hematocrit 40.6L, Mean Corpuscular Volume 89, Mean Corpuscular Hemoglobin 30.8, Mean Corpuscular Hemoglobin Concent 34.6, Red Cell Distribution Width 11.6, Platelet Count 453H, Mean Platelet Volume 5.6L, Neutrophils (%) (Auto) , Lymphocytes (%) (Auto) , Monocytes (%) (Auto) , Eosinophils (%) (Auto) , Basophils (%) (Auto) , Differential Total Cells Counted 100, Neutrophils % (Manual) 92H, Lymphocytes % (Manual) 6L, Monocytes % (Manual) 1, Eosinophils % (Manual) 1, Basophils % (Manual) 0, Band Neutrophils 0 , Platelet Estimate Adequate, Platelet Morphology Normal, Red Blood Cell Morphology Normal, Sodium Level 140, Potassium Level 4.4, Chloride Level 103, Carbon Dioxide Level 25, Anion Gap 13, Blood Urea Nitrogen 26H, Creatinine 0.9, Estimat Glomerular Filtration Rate > 60, Glucose Level 100, Calcium Level 9.0, Total Bilirubin 1.3H, Direct Bilirubin 0.6H, Aspartate Amino Transf (AST/SGOT) 46H, Alanine Aminotransferase (ALT/SGPT) 63, Alkaline Phosphatase 121H, Total Protein 7.9, Albumin 2.2L, Globulin 5.7, Albumin/Globulin Ratio 0.4L 12/01/19 08:36: Arterial Blood pH 7.412, Arterial Blood Partial Pressure CO2 36.1, Arterial Blood Partial Pressure O2 62.2L, Arterial Blood HCO3 22.5, Arterial Blood Oxygen Saturation 91.5L, Arterial Blood Base Excess -1.6, Melecio Test Positive Current Medications Medications (Trade) Dose Ordered Sig/Vicki Route PRN Reason Start Time Stop Time Status Last Admin Dose Admin Acetaminophen (Tylenol) 650 mg Q6H PRN ORAL Temp >100.5 11/29/19 21:00 12/29/19 20:59 11/30/19 22:02 Ceftriaxone Sodium 1 gm/ Dextrose 50 ml @ 100 mls/hr Q24H IVPB 11/30/19 15:15 12/07/19 15:14 11/30/19 16:18 Dextrose (Dextrose 50%) 25 ml Q30M PRN IV Hypoglycemia 11/29/19 14:15 02/27/20 14:14 Dextrose (Dextrose 50%) 50 ml Q30M PRN IV Hypoglycemia 11/29/19 14:15 02/27/20 14:14 Doxycycline Hyclate 100 mg/ Dextrose 100 ml @ 100 mls/hr Q12HR IV 11/30/19 21:00 12/07/19 20:59 12/01/19 09:31 Heparin Sodium (Porcine) (Heparin 5000 units/ml) 5,000 units EVERY 8 HOURS SUBQ 11/30/19 14:00 01/14/20 13:59 12/01/19 06:14 Hydralazine HCl (Apresoline) 10 mg Q4H PRN IV For High Blood Pressure 11/29/19 15:15 02/27/20 15:14 Hydroxychloroquine Sulfate (Plaquenil) 200 mg 0900,2100 ORAL 11/30/19 09:00 12/03/19 21:01 12/01/19 09:30 Ondansetron HCl (Zofran) 4 mg Q6H PRN IVP Nausea & Vomiting 11/29/19 14:15 12/29/19 14:14 Pantoprazole (Protonix) 40 mg DAILY IVP 11/30/19 12:15 12/30/19 12:14 12/01/19 09:30 Sushil Cortes MD Dec 01, 2019 10:54
--- NOTE | 2019-12-01 11:30 | NUR ---
NURSE NOTES: patient told about the possibility of intubation if respiratory don't improve. patient spoke with regarding possibility of intubation, daughter informed of patient may have to be intubated.
--- NOTE | 2019-12-01 11:32 | NUR ---
NURSE NOTES: patient remains awake and talkative, no pain over chest and expresses his respiration are at a normal rate. told that Dr. Cortes is worried he may tire out of breathing and require intubation.
[2019-12-01] MEDS ORDERED: NS 275ml ONE (14:01)
[2019-12-01] MEDS ORDERED: Tubing IV Secondary IV ONE (14:01)
--- NOTE | 2019-12-01 14:08 | General Progress Note ---
Assessment/Plan Assessment/Plan: 59-year-old male with PMH of HTN presents with acute respiratory distress. #Acute Hypoxic Respiratory Failure #Severe sepsis #COVID19 positive #CAP #Transaminitis -continue ICU level of care -pt is at high risk of rapid decompensation and requires continued ICU level of care, may need intubation -continue BiPAP -COVID-19 positive -droplet isolation/precautions -CXR reviewed: b/l infiltrates suspicious for PNA -Transaminitis likely reactive/2/2 possible COVID -cont. to monitor LFTs -BCx ordered and pending -EKG reviewed, sinus tach, HR 115, QTc 437 -trop negative x1, no CP at this time -obtain d-dimer -Cont. supplemental O2 to maintain goal SpO2 92-96% -Pulm follow up appreciated -d/w ID, Dr. Rodriguez, cont hydroxychloroquine, azithromycin, ceftriaxone #HTN -CTM -hydralazine PRN DVT PPX: Lovenox Time spent on encounter: 75 mins, 40 mins spent on critical care time. Critical Care Services performed include: EKG Review Hemodynamic measurement interpretation Laboratory data review and interpretation Radiology image review and interpretation ABG interpretation Discussion of patient's care with ICU team, Nursing staff, ID and Pulm. Time of note doesn't reflect time of encounter. Subjective Date patient seen: Dec 01, 2019 Time patient seen: 09:23 ROS Limited/Unobtainable: Yes Allergies: Coded Allergies: No Known Allergies (Unverified , 11/29/19) Subjective Follow up for acute hypoxic resp failure, COVID19 positive Patient remains on NIPPV 100% fiO2 Spoke with RN at bedside, patient is awake and alert. Objective Last 24 Hour Vital Signs Date Time Temp Pulse Resp B/P (MAP) Pulse Ox O2 Delivery O2 Flow Rate FiO2 12/01/19 12:00 111 12/01/19 11:05 118 44 95 100 12/01/19 11:00 112 47 131/94 (106) 98 12/01/19 10:00 119 47 133/77 (95) 100 12/01/19 09:00 113 46 128/63 (84) 97 12/01/19 09:00 Bi-pap 12/01/19 08:36 123 47 96 100 12/01/19 08:00 98.3 122 48 132/75 (94) 97 12/01/19 08:00 100 4/19/20 08:00 122 12/01/19 07:02 119 49 95 100 12/01/19 07:00 130 42 138/85 (102) 87 12/01/19 06:00 117 42 128/76 (93) 100 12/01/19 05:23 115 47 97 100 12/01/19 05:00 110 46 134/73 (93) 98 12/01/19 04:00 80 12/01/19 04:00 Bi-pap 12/01/19 04:00 98.1 109 43 126/78 (94) 100 12/01/19 04:00 106 12/01/19 03:21 107 45 95 100 12/01/19 03:00 101 37 123/80 (94) 95 12/01/19 02:00 102 39 112/66 (81) 95 12/01/19 01:08 103 45 95 100 12/01/19 01:00 97 37 111/63 (79) 97 12/01/19 00:00 Bi-pap 12/01/19 00:00 98.9 106 34 104/69 (81) 93 11/30/19 23:21 111 47 99 100 11/30/19 23:00 109 39 115/74 (88) 96 11/30/19 22:32 99.9 11/30/19 22:00 113 37 124/75 (91) 99 11/30/19 21:11 112 48 98 100 11/30/19 21:00 114 40 142/79 (100) 98 20 20:00 100.0 110 47 134/79 (97) 97 11/30/19 20:00 114 11/30/19 20:00 Bi-pap 11/30/19 20:00 100 11/30/19 19:54 112 43 93 100 11/30/19 19:00 109 34 135/75 (95) 92 20 18:00 112 44 131/78 (95) 92 20 17:22 112 42 94 100 11/30/19 17:00 110 39 140/87 (104) 92 11/30/19 16:01 111 11/30/19 16:00 Bi-pap 11/30/19 16:00 97.8 111 41 130/76 (94) 91 4/18/20 16:00 100 11/30/19 15:00 105 46 90 100 11/30/19 15:00 110 40 112/77 (89) 93 Intake and Output 11/30/19 12/01/19 19:00 07:00 Intake Total 100 ml 100 ml Output Total 400 ml 650 ml Balance -300 ml -550 ml Intake Oral 50 ml 0 ml IV Total 50 ml 100 ml Output Urine Total 400 ml 650 ml # Voids 1 3 Laboratory Tests 11/30/19 17:10: Lactic Acid Level 2.50H 11/30/19 20:50: Lactic Acid Level 2.30H 12/01/19 05:20: Lactic Acid Level 2.10H, White Blood Count 15.8H, Red Blood Count 4.56L, Hemoglobin 14.1L, Hematocrit 40.6L, Mean Corpuscular Volume 89, Mean Corpuscular Hemoglobin 30.8, Mean Corpuscular Hemoglobin Concent 34.6, Red Cell Distribution Width 11.6, Platelet Count 453H, Mean Platelet Volume 5.6L, Neutrophils (%) (Auto) , Lymphocytes (%) (Auto) , Monocytes (%) (Auto) , Eosinophils (%) (Auto) , Basophils (%) (Auto) , Differential Total Cells Counted 100, Neutrophils % (Manual) 92H, Lymphocytes % (Manual) 6L, Monocytes % (Manual) 1, Eosinophils % (Manual) 1, Basophils % (Manual) 0, Band Neutrophils 0 , Platelet Estimate Adequate, Platelet Morphology Normal, Red Blood Cell Morphology Normal, Sodium Level 140, Potassium Level 4.4, Chloride Level 103, Carbon Dioxide Level 25, Anion Gap 13, Blood Urea Nitrogen 26H, Creatinine 0.9, Estimat Glomerular Filtration Rate > 60, Glucose Level 100, Calcium Level 9.0, Total Bilirubin 1.3H, Direct Bilirubin 0.6H, Aspartate Amino Transf (AST/SGOT) 46H, Alanine Aminotransferase (ALT/SGPT) 63, Alkaline Phosphatase 121H, Total Protein 7.9, Albumin 2.2L, Globulin 5.7, Albumin/Globulin Ratio 0.4L 12/01/19 08:36: Arterial Blood pH 7.412, Arterial Blood Partial Pressure CO2 36.1, Arterial Blood Partial Pressure O2 62.2L, Arterial Blood HCO3 22.5, Arterial Blood Oxygen Saturation 91.5L, Arterial Blood Base Excess -1.6, Melecio Test Positive Height (Feet): 5 Height (Inches): 6.00 Weight (Pounds): 186 General Appearance: alert, other - On BiPAP Cardiovascular: normal rate, regular rhythm Respiratory/Chest: lungs clear, normal breath sounds, no respiratory distress Abdomen: non tender, soft Bernabe Cadet MD Dec 01, 2019 14:08
--- NOTE | 2019-12-01 14:15 | NUR ---
NURSE NOTES: Dr. Casillas updated patient WBC count and patient progression while on CPAP, Non vebral orders given at this time.
--- NOTE | 2019-12-01 15:45 | NUR ---
NURSE NOTES: Heparin given subq and and hung ceftriaxone on right forearm iv
[2019-12-01] MEDS: cefTRIAXone 1 GM in D5W 50 ML IVPB SCH (16:06)
--- NOTE | 2019-12-01 17:35 | NUR ---
NURSE NOTES: Patient signed consent for intubation, if unable to tolerate being on CPAP. consent placed on chart.
--- NOTE | 2019-12-01 19:34 | NUR ---
NURSE NOTES: Received patient from DARYA Jacome. patient awake alert oriented x4. BP 121/79 HR 118 RR 46 with oxygen saturation 99%. patient on CPAP 10 with FiO2 100%. patient denies pain. Right AC and Right Forearm PIV gauge 20 clean and asymptomatic TKO. skin warm dry intact with rashes scattered over abdomen. will continue to monitor.
--- NOTE | 2019-12-01 19:34 | NUR ---
HAND-OFF: Report given to DARYA Watts
--- NOTE | 2019-12-01 22:00 | NUR ---
NURSE NOTES: patient awake alert oriented x4. BP 138/84 HR 125 RR 48 with oxygen saturation 98%. patient on CPAP 10 with FiO2 100%. Right AC and Right Forearm PIV gauge 20 clean and asymptomatic TKO. patient voided with urinal, dark marge urine noted. patient repositioned self. will continue to monitor.
[2019-12-02] VITALS (28 sets, daily range): BP systolic 111–149; BP diastolic 60–116
--- NOTE | 2019-12-02 | NUR ---
NURSE NOTES: patient awake alert oriented. BP 123/84 HR 111 RR 37 with oxygen saturation 97%. patient on CPAP 10 with FiO2 100%. Right AC and Right Forearm PIV gauge 20 clean and asymptomatic TKO. patient repositioned self. will continue to monitor.
--- NOTE | 2019-12-02 02:00 | NUR ---
NURSE NOTES: patient awake alert oriented. BP 120/79 HR 114 RR 43 with oxygen saturation 96%. patient on CPAP 10 with FiO2 100%. Right AC and Right Forearm PIV gauge 20 clean and asymptomatic TKO. patient repositioned self. dark marge urine noted in urinal. will continue to monitor.
--- NOTE | 2019-12-02 04:00 | NUR ---
NURSE NOTES: patient awake alert oriented. BP 130/81 HR 106 RR 38 with oxygen saturation 97%, temp 99.7F axillary. patient on CPAP 10 with FiO2 100%. Right AC and Right Forearm PIV gauge 20 clean and asymptomatic TKO. assisted patient with bed bath. will continue to monitor.
[2019-12-02 05:14] LABS: HEMATOCRIT 38.6 % (42.0-52.0); HEMOGLOBIN 13.6 G/DL (14.2-18.0); MEAN CORPUSCULAR VOLUME 88 FL (80-99); PLATELET COUNT 519 K/UL (150-450); RED BLOOD COUNT 4.37 M/UL (4.70-6.10); RED CELL DISTRIBUTION WIDTH 11.6 % (11.6-14.8); WHITE BLOOD COUNT 18.9 K/UL (4.8-10.8)
[2019-12-02] MEDS: Heparin 5000 units/ml inj SUBQ SCH ×3 (05:14→23:28)
[2019-12-02 05:39] LABS: ALANINE AMINOTRANSFERASE 50 U/L (12-78); ALBUMIN 1.9 G/DL (3.4-5.0); ALBUMIN/GLOBULIN RATIO 0.3 (1.0-2.7); ALKALINE PHOSPHATASE 113 U/L (46-116); ANION GAP 12 mmol/L (5-15); ASPARTATE AMINO TRANSFERASE 41 U/L (15-37); BILIRUBIN,TOTAL 1.3 MG/DL (0.2-1.0); BLOOD UREA NITROGEN 24 mg/dL (7-18); CALCIUM 8.9 MG/DL (8.5-10.1); CARBON DIOXIDE 23 MMOL/L (21-32); CHLORIDE 103 MMOL/L (98-107); CREATININE 0.9 MG/DL (0.55-1.30); POTASSIUM 4.7 MMOL/L (3.5-5.1); SODIUM 138 MMOL/L (136-145)
[2019-12-02 05:59] LABS: BILIRUBIN,DIRECT 0.8 MG/DL (0.0-0.3)
--- NOTE | 2019-12-02 06:00 | NUR ---
NURSE NOTES: patient awake alert oriented x4. BP 120/66 HR 111 RR 42 with oxygen saturation 97%. respirations shallow and tachypneic with patient on CPAP 10 with FiO2 100%. Right AC and Right forearm PIV gauge 20 clean and asymptomatic. will continue to monitor.
--- NOTE | 2019-12-02 07:18 | NUR ---
HAND-OFF: Report given to DARYA Valentin. endorsed POC.
--- NOTE | 2019-12-02 07:19 | NUR ---
NURSE NOTES: Pt received from DARYA Carson. Pt awake, able to follow commands, AAOx4. Bilat pupils PERRLA +. 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 Bilat radial pulses 3+ and dorsalis pedis pulses 2+. Pt is on CPAP with FiO2 100% with spO2> 90%. All lung lobes noted with rhonchi upon auscultation. Abd is round, soft, and non-tender with active bowel sounds to all quadrants. Pt has a barnes draining dark marge urine. Skin alterations noted. Pt has RAC and RFA 20g IVs runing NS TKO at 5 cc/hr. Pt is currently afebrile. Bed is in lowest position, alarm on, side rails up x 3, call light within reach. No acute distress noted. Will continue with plan of care.
[2019-12-02] MEDS: Pantoprazole Inj IVP SCH (08:43)
--- NOTE | 2019-12-02 10:00 | NUR ---
NURSE NOTES: Dr Cortes at bedside assessing pt- care plan discussed. Pt in no acute distress at this time.
--- NOTE | 2019-12-02 10:53 | Pulmonology Progress Note ---
Assessment/Plan Assessment/Plan IMPRESSION: 1. Bilateral pneumonia. 2. High suspicion of COVID-19. 3. Impending respiratory failure. DISCUSSION: May need to be intubated however currently holding his own Begin voluntary proning Keep in ICU. Keep on isolation. Broad-spectrum antibiotics with the addition of Plaquenil as well as azithromycin. Blood pressure control. Low threshold for intubation. Patient agrees, I will follow carefully. Sushil Cortes M.D. Subjective Interval Events: None new; looking better Constitutional: Reports: no symptoms HEENT: Repors: no symptoms Respiratory: Reports: no symptoms Cardiovascular: Reports: no symptoms Gastrointestinal/Abdominal: Reports: no symptoms Genitourinary: Reports: no symptoms Allergies: Coded Allergies: No Known Allergies (Unverified , 11/29/19) Objective Last 24 Hour Vital Signs Date Time Temp Pulse Resp B/P (MAP) Pulse Ox O2 Delivery O2 Flow Rate FiO2 12/02/19 08:00 100 12/02/19 07:01 117 32 98 100 12/02/19 07:00 117 44 129/78 (95) 98 12/02/19 06:00 111 42 120/66 (84) 97 12/02/19 05:00 118 42 126/76 (93) 97 12/02/19 04:00 104 12/02/19 04:00 100 12/02/19 04:00 99.7 106 38 130/81 (97) 97 12/02/19 04:00 Bi-pap 12/02/19 03:28 119 36 97 100 12/02/19 03:00 116 48 129/87 (101) 96 12/02/19 02:00 112 43 121/60 (80) 96 12/02/19 01:00 117 47 130/80 (97) 99 12/02/19 00:00 100.2 115 35 123/84 (97) 97 12/02/19 00:00 Bi-pap 12/01/19 23:27 121 52 95 100 12/01/19 23:00 125 48 151/91 (111) 99 12/01/19 22:00 125 44 105/80 (88) 99 12/01/19 21:00 117 45 140/82 (101) 100 12/01/19 20:00 Bi-pap 12/01/19 20:00 99.6 122 46 126/79 (95) 98 12/01/19 20:00 117 12/01/19 20:00 100 12/01/19 19:30 120 41 100 100 12/01/19 19:00 117 48 133/80 (97) 98 12/01/19 18:00 125 38 126/69 (88) 99 12/01/19 17:04 115 32 99 100 12/01/19 17:00 116 46 133/72 (92) 99 12/01/19 16:00 99.9 118 45 125/72 (89) 99 12/01/19 16:00 Bi-pap 12/01/19 16:00 100 12/01/19 15:59 116 12/01/19 15:00 114 45 137/79 (98) 97 12/01/19 14:00 113 45 129/73 (91) 97 12/01/19 13:29 106 40 97 100 12/01/19 13:00 112 44 119/81 (94) 98 12/01/19 12:00 Bi-pap 12/01/19 12:00 100 12/01/19 12:00 99.5 113 43 131/94 (106) 98 12/01/19 12:00 111 12/01/19 11:05 118 44 95 100 12/01/19 11:00 112 47 131/94 (106) 98 Intake and Output 12/01/19 12/02/19 19:00 07:00 Intake Total 200 ml 100 ml Output Total 400 ml 500 ml Balance -200 ml -400 ml Intake Oral 50 ml IV Total 150 ml 100 ml Output Urine Total 400 ml 500 ml # Voids 3 3 General Appearance: no acute distress HEENT: normocephalic Respiratory/Chest: chest wall non-tender, lungs clear Cardiovascular: normal peripheral pulses, normal rate Abdomen: normal bowel sounds Microbiology Date/Time Source Procedure Growth Status 11/29/19 11:00 Blood Blood Culture - Preliminary NO GROWTH AFTER 48 HOURS Resulted 11/29/19 11:00 Nasopharynx Coronavirus COVID-19 PCR ([facility]) - Final Complete Laboratory Tests 12/02/19 04:00: White Blood Count 18.9H, Red Blood Count 4.37L, Hemoglobin 13.6L, Hematocrit 38.6L, Mean Corpuscular Volume 88, Mean Corpuscular Hemoglobin 31.2H, Mean Corpuscular Hemoglobin Concent 35.3, Red Cell Distribution Width 11.6, Platelet Count 519H, Mean Platelet Volume 5.9L, Neutrophils (%) (Auto) , Lymphocytes (%) (Auto) , Monocytes (%) (Auto) , Eosinophils (%) (Auto) , Basophils (%) (Auto) , Differential Total Cells Counted 100, Neutrophils % (Manual) 88H, Lymphocytes % (Manual) 4L, Monocytes % (Manual) 8, Eosinophils % (Manual) 0, Basophils % ( Manual) 0, Band Neutrophils 0, Platelet Estimate Adequate, Platelet Morphology Normal, Red Blood Cell Morphology Normal, Sodium Level 138, Potassium Level 4.7 , Chloride Level 103, Carbon Dioxide Level 23, Anion Gap 12, Blood Urea Nitrogen 24H, Creatinine 0.9, Estimat Glomerular Filtration Rate > 60, Glucose Level 111H, Lactic Acid Level 2.40H, Calcium Level 8.9, Magnesium Level 2.2, Total Bilirubin 1.3H, Direct Bilirubin 0.8H, Aspartate Amino Transf (AST/SGOT) 41H, Alanine Aminotransferase (ALT/SGPT) 50, Alkaline Phosphatase 113, Total Protein 7.6, Albumin 1.9L, Globulin 5.7, Albumin/Globulin Ratio 0.3L Current Medications Medications (Trade) Dose Ordered Sig/Vicki Route PRN Reason Start Time Stop Time Status Last Admin Dose Admin Acetaminophen (Tylenol) 650 mg Q6H PRN ORAL Temp >100.5 11/29/19 21:00 12/29/19 20:59 11/30/19 22:02 Ceftriaxone Sodium 1 gm/ Dextrose 50 ml @ 100 mls/hr Q24H IVPB 11/30/19 15:15 12/07/19 15:14 12/01/19 16:06 Dextrose (Dextrose 50%) 25 ml Q30M PRN IV Hypoglycemia 11/29/19 14:15 02/27/20 14:14 Dextrose (Dextrose 50%) 50 ml Q30M PRN IV Hypoglycemia 11/29/19 14:15 02/27/20 14:14 Doxycycline Hyclate 100 mg/ Dextrose 100 ml @ 100 mls/hr Q12HR IV 11/30/19 21:00 12/07/19 20:59 12/02/19 08:43 Heparin Sodium (Porcine) (Heparin 5000 units/ml) 5,000 units EVERY 8 HOURS SUBQ 11/30/19 14:00 01/14/20 13:59 12/02/19 05:14 Hydralazine HCl (Apresoline) 10 mg Q4H PRN IV For High Blood Pressure 11/29/19 15:15 02/27/20 15:14 Hydroxychloroquine Sulfate (Plaquenil) 200 mg 0900,2100 ORAL 11/30/19 09:00 12/03/19 21:01 12/02/19 08:43 Ondansetron HCl (Zofran) 4 mg Q6H PRN IVP Nausea & Vomiting 11/29/19 14:15 12/29/19 14:14 Pantoprazole (Protonix) 40 mg DAILY IVP 11/30/19 12:15 12/30/19 12:14 12/02/19 08:43 Sushil Cortes MD Dec 02, 2019 10:53
--- NOTE | 2019-12-02 12:00 | NUR ---
NURSE NOTES: Spoke with pt regarding prone position- however, pt is refusing to lay in prone at this time. I explained benefits but pt still refused. Pt remains afebrile at this time with temp 98.4 ax F. No distress noted at this time.
--- NOTE | 2019-12-02 12:06 | NUR ---
Social Work Patient is currently in isolation in ICU, while remains alert/oriented x4. This SW spoke with niece, Lizzy Carolina @ [phone] who explains patient lives with their cousin (age 38) who recently in this hospital from COVID-19. Niece explains there are unknown past medical diagnosis with patient, except for possible diabetes, which had not been treated. 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 This SW informed niece regarding follow up with [facility], as needed, due to does not qualify for full scope [facility] at this time. Niece explains she and her mother (patients sister) will assist, as needed. Patient did not have any history of chronic substance abuse, nor mental health concerns, according to the niece. Pending progress at this time. Niece requesting mortuary contact information (for their cousin who ). Resources provided. Brief support provided to family. SW to follow further, as needed.
[2019-12-02] MEDS ORDERED: Vancomycin 1.5gm/NS Premix IVPB ONE (13:00)
[2019-12-02] MEDS: Piperacillin/Tazobactam 3.375 GM in NS 110 ML IVPB SCH ×2 (13:54→23:27)
--- NOTE | 2019-12-02 14:44 | NUR ---
CASE MANAGEMENT: REVIEW 59 YEAR OLD MALE BIBA FROM HOME CC: SOB SAT 65% . COUGH . PATIENT LIVES WITH COVID POSITIVE SON SI: COVID-19 VIRAL INFECTION . PNA T 100.5 HR 113 RR 40 BP 145/77 SAT 88% BIPAP FIO2 100 WBC 13.4 ALK PHOS 121 D-DIMER 1.13 CORONAVIRUS COVID-19 DETECTED IS: VIBRAMYCIN IV X1 CEFTRIAXONE IV Q24HR AZITHROMYCIN IV X1 NS IVF BOLUS X1 PATIENT ADMITTED TO ICU 11/29/2019 DCP: PATIENT IS FROM HOME
--- NOTE | 2019-12-02 17:10 | NUR ---
NURSE NOTES: Spoke to Dr Cortes, updated him with lactic acid results of 2.4, order received to repeat Lactic acid tomorrow at 0400 (d/c today's lactic acid scheduled for 1999).
--- NOTE | 2019-12-02 19:26 | NUR ---
HAND-OFF: Report given to DARYA New. Pt in no acute distress.
--- NOTE | 2019-12-02 19:30 | NUR ---
NURSE NOTES: Received patient from DARYA Valentin. Will continue plan of care.
--- NOTE | 2019-12-02 20:00 | NUR ---
NURSE NOTES: Patient is awake and alert. On CPAP @ 100%. BP:138/80, HR:119, RESP:43, O2:90%. Patient shows no signs of pain or distress, Safety measures in place. Bed low, locked and alarm is on. Will continue plan of care.
--- NOTE | 2019-12-02 20:41 | Infectious Diseases Prog Note ---
Assessment/Plan Assessment/Plan ASSESSMENT AND PLAN: 1. covid-19 virus infection with pna, rule out bacterial pna, sepsis, fevers, leukocytosis - zosyn, vancomycin, doxycycline - hydroxychloroquine - monitor chest x-ray and labs 2. Hypertension. 3. No known allergies. 4. Social history negative. 5. Family history noncontributory. 6. MAR was noted. 7. Case discussed with RN. 8. Continue treatment per primary consultants. Subjective Constitutional: Reports: fever HEENT: Reports: congestion Respiratory: Reports: shortness of breath Cardiovascular: Denies: chest pain Gastrointestinal/Abdominal: Denies: nausea, vomiting, diarrhea Genitourinary: Reports: other - no barnes Neurologic: Reports: other - alert Psychiatric: Reports: other - NA Skin: Denies: rash Hematologic: Denies: bleeding Musculoskeletal: Denies: pain Allergies: Coded Allergies: No Known Allergies (Unverified , 11/29/19) Objective Vital Signs Last 24 Hour Vital Signs Date Time Temp Pulse Resp B/P (MAP) Pulse Ox O2 Delivery O2 Flow Rate FiO2 12/02/19 20:00 100 12/02/19 20:00 Bi-pap 12/02/19 19:00 114 49 130/81 (97) 90 12/02/19 18:00 113 44 143/86 (105) 92 12/02/19 17:00 105 43 140/81 (100) 92 12/02/19 16:00 114 12/02/19 16:00 98.8 110 44 131/76 (94) 90 12/02/19 16:00 100 12/02/19 16:00 Bi-pap 12/02/19 15:01 112 43 90 100 12/02/19 15:00 112 47 140/81 (100) 92 12/02/19 14:00 115 44 127/80 (96) 88 12/02/19 13:00 103 41 121/71 (88) 92 12/02/19 12:00 Bi-pap 12/02/19 12:00 100 12/02/19 12:00 98.4 109 49 127/75 (92) 90 12/02/19 12:00 108 12/02/19 11:02 107 51 91 100 12/02/19 11:00 113 47 131/83 (99) 91 12/02/19 10:00 113 46 132/77 (95) 98 12/02/19 09:00 121 49 129/78 (95) 96 12/02/19 08:00 100 12/02/19 08:00 125 12/02/19 08:00 Bi-pap 12/02/19 08:00 111 46 111/68 (82) 99 12/02/19 07:01 117 32 98 100 12/02/19 07:00 117 44 129/78 (95) 98 12/02/19 06:00 111 42 120/66 (84) 97 12/02/19 05:00 118 42 126/76 (93) 97 12/02/19 04:00 104 12/02/19 04:00 100 12/02/19 04:00 99.7 106 38 130/81 (97) 97 12/02/19 04:00 Bi-pap 12/02/19 03:28 119 36 97 100 12/02/19 03:00 116 48 129/87 (101) 96 12/02/19 02:00 112 43 121/60 (80) 96 12/02/19 01:00 117 47 130/80 (97) 99 12/02/19 00:00 100.2 115 35 123/84 (97) 97 12/02/19 00:00 Bi-pap 12/01/19 23:27 121 52 95 100 12/01/19 23:00 125 48 151/91 (111) 99 12/01/19 22:00 125 44 105/80 (88) 99 12/01/19 21:00 117 45 140/82 (101) 100 Height (Feet): 5 Height (Inches): 6.00 Weight (Pounds): 178 General Appearance: no acute distress, other - +bipap HEENT: atraumatic, anicteric Respiratory/Chest: respiratory distress, accessory muscle use, crackles/rales, rhonchi - bilaterally Cardiovascular: normal rate, regular rhythm, no gallop/murmur Abdomen: normal bowel sounds, soft, non tender, no organomegaly, non distended Genitourinary: other - no barnes Extremities: no cyanosis Skin: no rash 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 COMPARISON: Chest x-ray dated 11/29/19 FINDINGS: Lungs: Persistent diffuse peripheral groundglass opacities, not significantly changed, concerning for pneumonia. Pleural space: Unremarkable. The costophrenic angles are sharp. No visible pneumothorax. Heart: Unremarkable. No cardiomegaly. Mediastinum: Unremarkable. Bones/joints: Mild degenerative changes throughout the visualized spine. Tubes, lines and devices: Telemetry leads overlie the thorax. IMPRESSION: No significant change compared to the prior chest x-ray. Persistent diffuse peripheral groundglass opacities, concerning for pneumonia. Microbiology Date/Time Source Procedure Growth Status 11/29/19 11:00 Blood Blood Culture - Preliminary NO GROWTH AFTER 48 HOURS Resulted 11/29/19 11:00 Nasopharynx Coronavirus COVID-19 PCR ([facility]) - Final Complete covid-19 - + pcr Laboratory Tests Test 12/02/19 04:00 12/02/19 14:30 White Blood Count 18.9 K/UL (4.8-10.8) H Red Blood Count 4.37 M/UL (4.70-6.10) L Hemoglobin 13.6 G/DL (14.2-18.0) L Hematocrit 38.6 % (42.0-52.0) L Mean Corpuscular Volume 88 FL (80-99) Mean Corpuscular Hemoglobin 31.2 PG (27.0-31.0) H Mean Corpuscular Hemoglobin Concent 35.3 G/DL (32.0-36.0) Red Cell Distribution Width 11.6 % (11.6-14.8) Platelet Count 519 K/UL (150-450) H Mean Platelet Volume 5.9 FL (6.5-10.1) L Neutrophils (%) (Auto) % (45.0-75.0) Lymphocytes (%) (Auto) % (20.0-45.0) Monocytes (%) (Auto) % (1.0-10.0) Eosinophils (%) (Auto) % (0.0-3.0) Basophils (%) (Auto) % (0.0-2.0) Differential Total Cells Counted 100 Neutrophils % (Manual) 88 % (45-75) H Lymphocytes % (Manual) 4 % (20-45) L Monocytes % (Manual) 8 % (1-10) Eosinophils % (Manual) 0 % (0-3) Basophils % (Manual) 0 % (0-2) Band Neutrophils 0 % (0-8) Platelet Estimate Adequate Platelet Morphology Normal Red Blood Cell Morphology Normal Sodium Level 138 MMOL/L (136-145) Potassium Level 4.7 MMOL/L (3.5-5.1) Chloride Level 103 MMOL/L (98-107) Carbon Dioxide Level 23 MMOL/L (21-32) Anion Gap 12 mmol/L (5-15) Blood Urea Nitrogen 24 mg/dL (7-18) H Creatinine 0.9 MG/DL (0.55-1.30) Estimat Glomerular Filtration Rate > 60 mL/min (>60) Glucose Level 111 MG/DL (74-106) H Lactic Acid Level 2.40 mmol/L (0.4-2.0) H 2.40 mmol/L (0.4-2.0) H Calcium Level 8.9 MG/DL (8.5-10.1) Magnesium Level 2.2 MG/DL (1.8-2.4) Total Bilirubin 1.3 MG/DL (0.2-1.0) H Direct Bilirubin 0.8 MG/DL (0.0-0.3) H Aspartate Amino Transf (AST/SGOT) 41 U/L (15-37) H Alanine Aminotransferase (ALT/SGPT) 50 U/L (12-78) Alkaline Phosphatase 113 U/L (46-116) Total Protein 7.6 G/DL (6.4-8.2) Albumin 1.9 G/DL (3.4-5.0) L Globulin 5.7 g/dL Albumin/Globulin Ratio 0.3 (1.0-2.7) L Current Medications Medications (Trade) Dose Ordered Sig/Vicki Route PRN Reason Start Time Stop Time Status Last Admin Dose Admin Acetaminophen (Tylenol) 650 mg Q6H PRN ORAL Temp >100.5 11/29/19 21:00 12/29/19 20:59 11/30/19 22:02 Dextrose (Dextrose 50%) 25 ml Q30M PRN IV Hypoglycemia 11/29/19 14:15 02/27/20 14:14 Dextrose (Dextrose 50%) 50 ml Q30M PRN IV Hypoglycemia 11/29/19 14:15 02/27/20 14:14 Doxycycline Hyclate 100 mg/ Dextrose 100 ml @ 100 mls/hr Q12HR IV 11/30/19 21:00 12/07/19 20:59 12/02/19 08:43 Heparin Sodium (Porcine) (Heparin 5000 units/ml) 5,000 units EVERY 8 HOURS SUBQ 11/30/19 14:00 01/14/20 13:59 12/02/19 13:04 Hydralazine HCl (Apresoline) 10 mg Q4H PRN IV For High Blood Pressure 11/29/19 15:15 02/27/20 15:14 Hydroxychloroquine Sulfate (Plaquenil) 200 mg 0900,2099 ORAL 11/30/19 09:00 12/03/19 21:01 12/02/19 08:43 Ondansetron HCl (Zofran) 4 mg Q6H PRN IVP Nausea & Vomiting 11/29/19 14:15 12/29/19 14:14 Pantoprazole (Protonix) 40 mg DAILY IVP 11/30/19 12:15 12/30/19 12:14 12/02/19 08:43 Piperacillin Sod/ Tazobactam Sod 3.375 gm/Sodium Chloride 110 ml @ 27.5 mls/hr EVERY 8 HOURS IVPB 12/02/19 14:00 12/07/19 13:59 12/02/19 13:54 Vancomycin HCl (Vanco rx to dose) 1 ea DAILY PRN MISC Per rx protocol 12/02/19 12:00 01/01/20 11:59 Vancomycin HCl 750 mg/Sodium Chloride 275 ml @ 183.333 mls/hr Q12H IVPB 12/03/19 01:00 12/08/19 00:59 Ilsa Rodriguez MD Dec 02, 2019 20:41
--- NOTE | 2019-12-02 22:00 | NUR ---
NURSE NOTES: Patient remains on CPAP. Up and sitting in bed. BP:143/83, HR:117, O2:90%. Will continue to monitor.
[2019-12-03] VITALS (26 sets, daily range): BP systolic 103–151; BP diastolic 65–91
--- NOTE | 2019-12-03 | NUR ---
NURSE NOTES: Patient is compliant on keeping CPAP continuously on. Able to swallow medications whole. No changes in condition.
[2019-12-03] MEDS: Vancomycin 750mg/NS 275ml IVPB SCH ×4 (00:58→13:15)
--- NOTE | 2019-12-03 02:00 | NUR ---
NURSE NOTES: Patient remains alert but drowsy. RT at bedside. Patient refuses bed bath and linen change at the moment, informed him I will ask again later in the AM and give fresh linens.
--- NOTE | 2019-12-03 04:00 | NUR ---
NURSE NOTES: Blood drawn and sent to lab for AM results. Bed bath and linen change provided. Patient refuses gown. Compliant on CPAP 100% but O2 saturations remains averaging at 88-90%. Safety measures on. Will continue to monitor.
[2019-12-03 05:26] LABS: HEMATOCRIT 36.8 % (42.0-52.0); HEMOGLOBIN 12.9 G/DL (14.2-18.0); MEAN CORPUSCULAR VOLUME 88 FL (80-99); PLATELET COUNT 505 K/UL (150-450); RED CELL DISTRIBUTION WIDTH 11.3 % (11.6-14.8); WHITE BLOOD COUNT 20.2 K/UL (4.8-10.8)
[2019-12-03 05:45] LABS: ANION GAP 10 mmol/L (5-15); BLOOD UREA NITROGEN 24 mg/dL (7-18); CALCIUM 8.6 MG/DL (8.5-10.1); CARBON DIOXIDE 24 MMOL/L (21-32); CHLORIDE 103 MMOL/L (98-107); CREATININE 0.8 MG/DL (0.55-1.30); POTASSIUM 4.6 MMOL/L (3.5-5.1); SODIUM 137 MMOL/L (136-145)
[2019-12-03] MEDS: Piperacillin/Tazobactam 3.375 GM in NS 110 ML IVPB SCH ×3 (05:46→21:20)
[2019-12-03] MEDS: Heparin 5000 units/ml inj SUBQ SCH ×3 (05:47→21:22)
--- NOTE | 2019-12-03 06:00 | NUR ---
NURSE NOTES: Patient is asleep, remains on CPAP at 100%. Awaiting morning ABG. O2 saturation continues to average 88-90%
--- NOTE | 2019-12-03 07:13 | NUR ---
HAND-OFF: Report given to DARYA Shields.
--- NOTE | 2019-12-03 07:40 | NUR ---
NURSE NOTES: Late entry: Received report from oscar shin. Pt in bed, awake, verbal. very drowsy and fatigued. Follows simple commands. able to understand some azeri. Pupils 3mm sluggish. ST on monitor, hr 119. bp 120/65, rr 46, sating 90%, labored breaths, pursed lips. hob high folwer. pt on cpap 10, 100%fi02. encouraged pt to lye prone to increase ability to breath and get oxygen. pt refused stating too painful to lye on abdomen. secretions scant, thick, white. diminished breath sounds. abdomen distended, hypoactive in all quadrants. no bm. urinal at bedside. voids, dark marge urine. iv access rt fa20g, occluded. will remove and replace. rt ac 20g tko. airborne contact, covid +. will continue to monitor pt.
[2019-12-03] MEDS: Pantoprazole Inj IVP SCH (09:11)
--- NOTE | 2019-12-03 10:00 | NUR ---
NURSE NOTES: MD Cortes here to see pt. was updated on a.m abg: ph 7.415, pc02 37, p02 61.2, hco3 23.2, pt labored breaths and rr 30-40"s. pt won't turn prone due to abdominal pain. no new orders at this time.
--- NOTE | 2019-12-03 10:11 | NUR ---
RADIOLOGY DEPT., CHEST X-RAY DONE.-P.DYE
--- NOTE | 2019-12-03 11:42 | Pulmonology Progress Note ---
Assessment/Plan Assessment/Plan IMPRESSION: 1. Bilateral pneumonia. 2. Positive COVID-19. 3. Respiratory failure. DISCUSSION: May need to be intubated however currently holding his own Begin voluntary proning Keep in ICU. Keep on isolation. Broad-spectrum antibiotics with the addition of Plaquenil as well as azithromycin. Blood pressure control. Low threshold for intubation. Patient agrees, I will follow carefully. Sushil Cortes M.D. Subjective Interval Events: Remains tachypnic; SaO2 92% Constitutional: Reports: no symptoms HEENT: Repors: no symptoms Respiratory: Reports: no symptoms Cardiovascular: Reports: no symptoms Gastrointestinal/Abdominal: Reports: no symptoms Genitourinary: Reports: no symptoms Allergies: Coded Allergies: No Known Allergies (Unverified , 11/29/19) Objective Last 24 Hour Vital Signs Date Time Temp Pulse Resp B/P (MAP) Pulse Ox O2 Delivery O2 Flow Rate FiO2 12/03/19 11:00 111 44 132/79 (96) 91 12/03/19 10:00 117 48 141/81 (101) 91 12/03/19 09:00 121 45 90 100 12/03/19 09:00 119 43 113/82 (92) 91 12/03/19 08:00 116 12/03/19 08:00 116 43 113/82 (92) 90 12/03/19 07:20 120 45 90 100 12/03/19 07:00 118 47 120/65 (83) 90 12/03/19 06:00 104 41 129/91 (104) 87 12/03/19 05:00 103 25 123/72 (89) 89 12/03/19 04:00 Bi-pap 12/03/19 04:00 100 12/03/19 04:00 99.1 111 45 103/76 (85) 88 12/03/19 03:30 103 39 135/76 (95) 89 12/03/19 03:29 119 44 93 100 12/03/19 03:05 103 12/03/19 03:00 104 26 121/74 (90) 91 12/03/19 02:30 109 42 111/70 (84) 88 12/03/19 02:00 117 44 116/70 (85) 90 20 01:28 100.0 12/03/19 01:00 117 36 134/74 (94) 88 12/03/19 00:00 100.2 114 38 130/76 (94) 89 12/03/19 00:00 Bi-pap 12/02/19 23:30 111 25 140/116 (124) 89 12/02/19 23:11 112 35 94 100 12/02/19 23:03 115 12/02/19 23:00 116 25 129/78 (95) 91 12/02/19 22:30 119 25 131/86 (101) 90 12/02/19 22:00 117 25 143/83 (103) 90 12/02/19 21:30 116 25 134/74 (94) 90 12/02/19 21:00 115 25 121/72 (88) 90 12/02/19 20:30 119 48 138/80 (99) 90 12/02/19 20:29 115 12/02/19 20:00 100 12/02/19 20:00 99.9 122 28 149/77 (101) 92 20 20:00 Bi-pap 12/02/19 19:20 117 36 92 100 12/02/19 19:00 114 49 130/81 (97) 90 12/02/19 18:00 113 44 143/86 (105) 92 12/02/19 17:00 105 43 140/81 (100) 92 12/02/19 16:00 114 12/02/19 16:00 98.8 110 44 131/76 (94) 90 12/02/19 16:00 100 12/02/19 16:00 Bi-pap 12/02/19 15:01 112 43 90 100 12/02/19 15:00 112 47 140/81 (100) 92 12/02/19 14:00 115 44 127/80 (96) 88 12/02/19 13:00 103 41 121/71 (88) 92 12/02/19 12:00 Bi-pap 12/02/19 12:00 100 12/02/19 12:00 98.4 109 49 127/75 (92) 90 12/02/19 12:00 108 Intake and Output 12/02/19 12/03/19 19:00 07:00 Intake Total 210.0 ml 427.273 ml Output Total 350 ml 500 ml Balance -140.0 ml -72.727 ml IV Total 210.0 ml 427.273 ml Output Urine Total 350 ml 500 ml # Voids 1 General Appearance: no acute distress HEENT: normocephalic Respiratory/Chest: chest wall non-tender, lungs clear Cardiovascular: normal peripheral pulses, normal rate Abdomen: normal bowel sounds Microbiology Date/Time Source Procedure Growth Status 12/01/19 04:00 Nasal Nares MRSA Culture - Final NO METHICILLIN RESISTANT STAPH AUREUS... Complete Laboratory Tests 12/02/19 14:30: Lactic Acid Level 2.40H 12/03/19 04:00: Lactic Acid Level 2.00, White Blood Count 20.2H, Red Blood Count 4.20L, Hemoglobin 12.9L, Hematocrit 36.8L, Mean Corpuscular Volume 88, Mean Corpuscular Hemoglobin 30.8, Mean Corpuscular Hemoglobin Concent 35.1, Red Cell Distribution Width 11.3L, Platelet Count 505H, Mean Platelet Volume 6.0L, Neutrophils (%) (Auto) , Lymphocytes (%) (Auto) , Monocytes (%) (Auto) , Eosinophils (%) (Auto) , Basophils (%) (Auto) , Differential Total Cells Counted 100, Neutrophils % (Manual) 84H, Lymphocytes % (Manual) 5L, Monocytes % (Manual) 10, Eosinophils % (Manual) 1, Basophils % (Manual) 0, Band Neutrophils 0, Platelet Estimate IncreasedH, Platelet Morphology Normal, Red Blood Cell Morphology Normal, Sodium Level 137, Potassium Level 4.6, Chloride Level 103, Carbon Dioxide Level 24, Anion Gap 10, Blood Urea Nitrogen 24H, Creatinine 0.8, Estimat Glomerular Filtration Rate > 60, Glucose Level 103, Calcium Level 8.6 12/03/19 08:35: Arterial Blood pH 7.415, Arterial Blood Partial Pressure CO2 37.0, Arterial Blood Partial Pressure O2 61.2L, Arterial Blood HCO3 23.2, Arterial Blood Oxygen Saturation 90.2L, Arterial Blood Base Excess -1.0, Melecio Test Positive Current Medications Medications (Trade) Dose Ordered Sig/Vicki Route PRN Reason Start Time Stop Time Status Last Admin Dose Admin Acetaminophen (Tylenol) 650 mg Q6H PRN ORAL Temp >100.5 11/29/19 21:00 12/29/19 20:59 12/03/19 00:58 Dextrose (Dextrose 50%) 25 ml Q30M PRN IV Hypoglycemia 11/29/19 14:15 02/27/20 14:14 Dextrose (Dextrose 50%) 50 ml Q30M PRN IV Hypoglycemia 11/29/19 14:15 02/27/20 14:14 Doxycycline Hyclate 100 mg/ Dextrose 100 ml @ 100 mls/hr Q12HR IV 11/30/19 21:00 12/07/19 20:59 12/03/19 09:11 Heparin Sodium (Porcine) (Heparin 5000 units/ml) 5,000 units EVERY 8 HOURS SUBQ 11/30/19 14:00 01/14/20 13:59 12/03/19 05:47 Hydralazine HCl (Apresoline) 10 mg Q4H PRN IV For High Blood Pressure 11/29/19 15:15 02/27/20 15:14 Hydroxychloroquine Sulfate (Plaquenil) 200 mg 0900,2100 ORAL 11/30/19 09:00 12/03/19 21:01 12/03/19 09:12 Ondansetron HCl (Zofran) 4 mg Q6H PRN IVP Nausea & Vomiting 11/29/19 14:15 12/29/19 14:14 Pantoprazole (Protonix) 40 mg DAILY IVP 11/30/19 12:15 12/30/19 12:14 12/03/19 09:11 Piperacillin Sod/ Tazobactam Sod 3.375 gm/Sodium Chloride 110 ml @ 27.5 mls/hr EVERY 8 HOURS IVPB 12/02/19 14:00 12/07/19 13:59 12/03/19 05:46 Vancomycin HCl (Vanco rx to dose) 1 ea DAILY PRN MISC Per rx protocol 12/02/19 12:00 01/01/20 11:59 Vancomycin HCl 750 mg/Sodium Chloride 275 ml @ 183.333 mls/hr Q12H IVPB 12/03/19 01:00 12/08/19 00:59 12/03/19 00:58 Sushil Cortes MD Dec 03, 2019 11:42
--- NOTE | 2019-12-03 12:00 | NUR ---
NURSE NOTES: pt in room resting. hr 118, bp 151/85, rr 46, sating 90%. diminished breath sounds. abdomen distended, hypoactive in all quadrants. no bm. urinal at bedside. voids, new iv access placed 22g rt wrist. rt ac 20g tko. call light in reach, bed alarm on. bed locked in low position. will continue to monitor pt.
--- NOTE | 2019-12-03 12:38 | Diagnostic Imaging Report ---
Indication: Dyspnea Technique: One view of the chest Comparison: 12/01/2019 Findings: Bilateral peripheral infiltrates are unchanged, allowing for differences in exposure technique. No definite effusions. Normal heart size. Impression: Unchanged bilateral infiltrates, over 2 days
--- NOTE | 2019-12-03 13:25 | NUR ---
RD ASSESSMENT & RECOMMENDATIONS SEE CARE ACTIVITY FOR COMPLETE ASSESSMENT DAILY ESTIMATED NEEDS: Needs based on Pulmonary 68.4kg abw 25-30 kcals/kg total kcals 1-1.5 g protein/kg 68-103 g total protein 25-30 mL/kg total fluid mLs NUTRITION DIAGNOSIS: Altered nutrition related lab values r/t clinical status as evidenced by mildly elev BG 103-133, elev T bili, elev WBC (20.2), febrile (tmax 100.2). CURRENT DIET: NPO PO DIET RECOMMENDATIONS: As medically able-> Regular diet/ texture as tolerated ADDITIONAL RECOMMENDATIONS: 1) Feed as medically able 2) Rec HgA1C for eval 3) Maintain calibrated bed scale wts 4) Rec IVF while NPO
--- NOTE | 2019-12-03 16:18 | NUR ---
NURSE NOTES: pt cleaned, medication administration. pt febrile. cooling measures in place. hob 45. encouraged pt to prone. refused. vss. hydration offered. no bm at this time. will continue to implement plan
--- NOTE | 2019-12-03 19:09 | NUR ---
HAND-OFF: Report given to AMANDA Arshad PT IN NO ACUTE DISTRESS
--- NOTE | 2019-12-03 19:10 | NUR ---
NURSE NOTES: Received patient from DARYA Shields. Will continue plan of care.
--- NOTE | 2019-12-03 20:00 | NUR ---
NURSE NOTES: Patient is awake and alert, sitting in high fowlers position and refusing to be in prone position. On CPAP @ 100%. BP:133/77, HR:122, RESP:44, O2:94%. Patient breathing is labored. Shows no signs of pain or being uncomfortable. Safety measures in place. Bed low, locked and alarm is on. Will continue plan of care.
--- NOTE | 2019-12-03 22:00 | NUR ---
NURSE NOTES: Patient is awake and alert. Elevated temp of 100.9F axillary, re-checked 100.1F axillary. Refuses prone position and ice packs. O2 saturation:92% Will continue to monitor.
[2019-12-04] VITALS (49 sets, daily range): BP systolic 72–174; BP diastolic 43–103
--- NOTE | 2019-12-04 | NUR ---
NURSE NOTES: Patient continues to refuse prone position. Temp down to 99.3F axillary. Blood drawn for vanco trough and sent to lab for results.
[2019-12-04] MEDS: Vancomycin 750mg/NS 275ml IVPB SCH ×2 (01:39)
--- NOTE | 2019-12-04 02:00 | NUR ---
NURSE NOTES: No changes in condition. BP:142/86 HR:115, O2:93. Will continue to monitor.
--- NOTE | 2019-12-04 04:00 | NUR ---
NURSE NOTES: Gown given, patient does not want to put it on. Refused bed bath, he is able to do it himself today. Continues to refuse to be prone.
[2019-12-04] MEDS: Piperacillin/Tazobactam 3.375 GM in NS 110 ML IVPB SCH ×3 (05:26→20:10)
[2019-12-04] MEDS: Heparin 5000 units/ml inj SUBQ SCH ×3 (05:27→20:11)
[2019-12-04] MEDS: Vancomycin 1.5gm/NS Premix IVPB SCH ×3 (05:27→20:10)
[2019-12-04] MEDS ORDERED: Etomidate 40mg/20ml Inj IV ONE (06:00)
[2019-12-04] MEDS ORDERED: Rocuronium Bromide 50mg/5ml Inj IV ONE (06:00)
--- NOTE | 2019-12-04 06:00 | NUR ---
NURSE NOTES: Current BP:144/91, HR:122, O2:92%. No changes in condition. Patient looks comfortable.
--- NOTE | 2019-12-04 07:20 | NUR ---
HAND-OFF: Report given to DARYA German.
--- NOTE | 2019-12-04 07:21 | NUR ---
NURSE NOTES: Received patient from DARYA New. Patient blood pressure, HR, and RR elevated at this time. BP 157/91, HR 130, and SpO2 92%. Patient sleeping at this time. Patient on CPAP at 100% FiO2. Patient is reported to be alert to name, place, and purpose. Patient English speaking. Patient NPO at this time. Patient uses urinal. Urinal at bedside. Patient has right wrist 22 gauge peripheral IV and right forearm 20 gauge peripheral IV. Patient bed in low position with bed alarm on and call light in reach at this time. Patient assisted to reposition. Oral care offered. Will continue to monitor. Addendum: 12/04/19 at 1122 by Monserrat Murphy RN Dry Psoriasis plaques noted on abdomen/belly button.
[2019-12-04] MEDS: Pantoprazole Inj IVP SCH (08:51)
--- NOTE | 2019-12-04 10:00 | NUR ---
NURSE NOTES: Patient denies pain or distress. HR, RR, and BP remain elevated. Will continue to monitor. Patient repositioned himself. Addendum: 12/04/19 at 1118 by Monserrat Murphy RN BP not elevated. BP 114/68.
--- NOTE | 2019-12-04 10:51 | Pulmonology Progress Note ---
Assessment/Plan Assessment/Plan IMPRESSION: 1. Bilateral pneumonia. 2. Positive COVID-19. 3. Respiratory failure. DISCUSSION: May need to be intubated however currently holding his own Begin voluntary proning Keep in ICU. Keep on isolation. Broad-spectrum antibiotics with the addition of Plaquenil as well as azithromycin. Blood pressure control. Low threshold for intubation. Patient agrees, I will follow carefully. Sushil Cortes M.D. Subjective ROS Limited/Unobtainable: Yes Interval Events: Remains tachypnic; SaO2 92% Constitutional: Reports: no symptoms HEENT: Repors: no symptoms Respiratory: Reports: no symptoms Cardiovascular: Reports: no symptoms Gastrointestinal/Abdominal: Reports: no symptoms Genitourinary: Reports: no symptoms Psychiatric: Reports: other - NA Skin: Denies: rash Musculoskeletal: Denies: pain Allergies: Coded Allergies: No Known Allergies (Unverified , 11/29/19) Objective Last 24 Hour Vital Signs Date Time Temp Pulse Resp B/P (MAP) Pulse Ox O2 Delivery O2 Flow Rate FiO2 12/04/19 10:32 115 46 92 100 12/04/19 10:00 131 47 147/86 (106) 90 12/04/19 09:22 100.4 12/04/19 09:00 100.4 128 49 140/90 (107) 92 12/04/19 08:00 Bi-pap 12/04/19 08:00 130 43 93 100 12/04/19 08:00 100 12/04/19 08:00 130 42 157/91 (113) 93 12/04/19 07:00 129 43 142/79 (100) 90 12/04/19 06:00 118 44 144/91 (108) 92 12/04/19 05:00 126 43 124/76 (92) 91 12/04/19 04:00 100 12/04/19 04:00 Bi-pap 12/04/19 04:00 119 46 142/81 (101) 93 12/04/19 03:06 111 12/04/19 03:00 120 41 133/80 (97) 93 12/04/19 02:45 67 42 92 100 12/04/19 02:00 116 51 142/86 (104) 93 12/04/19 01:00 115 44 136/80 (98) 92 12/04/19 00:00 Bi-pap 12/04/19 00:00 99.3 115 31 135/82 (99) 94 12/03/19 23:14 119 12/03/19 23:01 109 36 93 100 12/03/19 23:00 118 45 119/74 (89) 94 12/03/19 22:00 125 43 132/73 (92) 93 12/03/19 21:00 118 48 138/85 (102) 96 12/03/19 20:00 100.1 123 46 133/77 (95) 94 12/03/19 20:00 100 12/03/19 20:00 Bi-pap 12/03/19 19:18 125 12/03/19 19:00 117 47 129/83 (98) 93 12/03/19 18:55 110 38 94 100 12/03/19 18:00 119 47 142/87 (105) 91 12/03/19 17:02 114 41 90 100 12/03/19 17:01 117 38 130/73 (92) 83 12/03/19 16:00 100 12/03/19 16:00 Bi-pap 12/03/19 16:00 101.0 111 46 131/84 (100) 87 12/03/19 16:00 119 12/03/19 15:00 109 36 114/74 (87) 86 12/03/19 14:00 100.0 124 49 123/75 (91) 87 12/03/19 13:00 123 32 128/75 (92) 90 12/03/19 12:35 116 53 93 100 12/03/19 12:00 125 37 151/85 (107) 90 12/03/19 12:00 Bi-pap 12/03/19 12:00 100 12/03/19 12:00 116 12/03/19 11:00 111 44 132/79 (96) 91 Intake and Output 12/03/19 12/04/19 19:00 07:00 Intake Total 646.666 ml 530.432 ml Output Total 680 ml 420 ml Balance -33.334 ml 110.432 ml Intake Oral 70 ml IV Total 576.666 ml 530.432 ml Output Urine Total 680 ml 420 ml General Appearance: no acute distress HEENT: normocephalic Respiratory/Chest: chest wall non-tender, lungs clear Cardiovascular: normal peripheral pulses, normal rate Abdomen: normal bowel sounds Genitourinary: other - no barnes Extremities: no cyanosis Skin: no rash 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/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, alert, oriented x 3, responsive Lymphatic: no neck adenopathy Musculoskeletal: no effusion Laboratory Tests 12/04/19 00:00: Vancomycin Level Trough 1.2L Current Medications Medications (Trade) Dose Ordered Sig/Vicki Route PRN Reason Start Time Stop Time Status Last Admin Dose Admin Acetaminophen (Tylenol) 650 mg Q6H PRN ORAL Temp >100.5 11/29/19 21:00 12/29/19 20:59 12/04/19 08:52 Dextrose (Dextrose 50%) 25 ml Q30M PRN IV Hypoglycemia 11/29/19 14:15 02/27/20 14:14 Dextrose (Dextrose 50%) 50 ml Q30M PRN IV Hypoglycemia 11/29/19 14:15 02/27/20 14:14 Doxycycline Hyclate 100 mg/ Dextrose 100 ml @ 100 mls/hr Q12HR IV 11/30/19 21:00 12/07/19 20:59 12/04/19 08:51 Heparin Sodium (Porcine) (Heparin 5000 units/ml) 5,000 units EVERY 8 HOURS SUBQ 11/30/19 14:00 01/14/20 13:59 12/04/19 05:27 Hydralazine HCl (Apresoline) 10 mg Q4H PRN IV For High Blood Pressure 11/29/19 15:15 02/27/20 15:14 Ondansetron HCl (Zofran) 4 mg Q6H PRN IVP Nausea & Vomiting 11/29/19 14:15 12/29/19 14:14 Pantoprazole (Protonix) 40 mg DAILY IVP 11/30/19 12:15 12/30/19 12:14 12/04/19 08:51 Piperacillin Sod/ Tazobactam Sod 3.375 gm/Sodium Chloride 110 ml @ 27.5 mls/hr EVERY 8 HOURS IVPB 12/02/19 14:00 12/07/19 13:59 12/04/19 05:26 Vancomycin HCl (Vanco rx to dose) 1 ea DAILY PRN MISC Per rx protocol 12/02/19 12:00 01/01/20 11:59 Vancomycin/Sodium Chloride 275 ml @ 137.5 mls/ hr Q8H IVPB 12/04/19 04:00 12/09/19 03:59 12/04/19 05:27 Sushil Cortes MD Dec 04, 2019 10:51
--- NOTE | 2019-12-04 11:09 | General Progress Note ---
Assessment/Plan Assessment/Plan: 59-year-old male with PMH of HTN presents with acute respiratory distress. #Acute Hypoxic Respiratory Failure #Severe sepsis #COVID19 positive #CAP #Transaminitis -continue ICU level of care -pt is at high risk of rapid decompensation and requires continued ICU level of care -droplet isolation/precautions -CXR reviewed: b/l infiltrates suspicious for PNA -Transaminitis likely reactive/ 2/2 possible COVID -cont. to monitor LFTs -continue BiPAP -11/25 BCx NGTD -EKG reviewed, sinus tach, HR 115, QTc 437 -trop negative x1, no CP at this time -d-dimer elevated likely 2/2 COVID -fluctuating fevers likely 2/2 COVID -Pulm following, recs appreciated -ID, Dr. Rodriguez, following: hydroxychloroquine, van, zosyn, doxy -called Lizzy corona , updated on POC, answered all questions to her satisfaction #Tachycardia #HTN -hydralazine PRN -Cardio, , consulted, recs appreciated DVT PPX: Lovenox Time spent on encounter: 75 mins, 40 mins spent on critical care time. Critical Care Services performed include: EKG Review Hemodynamic measurement interpretation Laboratory data review and interpretation Radiology image review and interpretation ABG interpretation Discussion of patient's care with ICU team, Nursing staff, ID and Pulm. Time of note doesn't reflect time of encounter. Subjective Allergies: Coded Allergies: No Known Allergies (Unverified , 11/29/19) Subjective Follow up for acute hypoxic resp failure, COVID19 positive Patient remains on NIPPV 100% fiO2 Spoke with RN at bedside, patient is awake and alert. Fluctuating fevers. Tachycardic. Objective Last 24 Hour Vital Signs Date Time Temp Pulse Resp B/P (MAP) Pulse Ox O2 Delivery O2 Flow Rate FiO2 12/04/19 11:00 128 47 147/86 (106) 91 12/04/19 10:32 115 46 92 100 12/04/19 10:00 131 47 147/86 (106) 90 12/04/19 09:22 100.4 12/04/19 09:00 100.4 128 49 140/90 (107) 92 12/04/19 08:00 Bi-pap 12/04/19 08:00 130 43 93 100 4/22/20 08:00 100 12/04/19 08:00 16 12/04/19 08:00 130 42 157/91 (113) 93 12/04/19 07:00 129 43 142/79 (100) 90 12/04/19 06:00 118 44 144/91 (108) 92 12/04/19 05:00 126 43 124/76 (92) 91 12/04/19 04:00 100 12/04/19 04:00 Bi-pap 12/04/19 04:00 119 46 142/81 (101) 93 12/04/19 03:06 111 12/04/19 03:00 120 41 133/80 (97) 93 12/04/19 02:45 67 42 92 100 12/04/19 02:00 116 51 142/86 (104) 93 12/04/19 01:00 115 44 136/80 (98) 92 12/04/19 00:00 Bi-pap 12/04/19 00:00 99.3 115 31 135/82 (99) 94 12/03/19 23:14 119 12/03/19 23:01 109 36 93 100 12/03/19 23:00 118 45 119/74 (89) 94 12/03/19 22:00 125 43 132/73 (92) 93 12/03/19 21:00 118 48 138/85 (102) 96 12/03/19 20:00 100.1 123 46 133/77 (95) 94 12/03/19 20:00 100 12/03/19 20:00 Bi-pap 12/03/19 19:18 125 12/03/19 19:00 117 47 129/83 (98) 93 12/03/19 18:55 110 38 94 100 12/03/19 18:00 119 47 142/87 (105) 91 12/03/19 17:02 114 41 90 100 12/03/19 17:01 117 38 130/73 (92) 83 12/03/19 16:00 100 12/03/19 16:00 Bi-pap 12/03/19 16:00 101.0 111 46 131/84 (100) 87 12/03/19 16:00 119 12/03/19 15:00 109 36 114/74 (87) 86 12/03/19 14:00 100.0 124 49 123/75 (91) 87 12/03/19 13:00 123 32 128/75 (92) 90 12/03/19 12:35 116 53 93 100 12/03/19 12:00 125 37 151/85 (107) 90 12/03/19 12:00 Bi-pap 12/03/19 12:00 100 12/03/19 12:00 116 Intake and Output 12/03/19 12/04/19 19:00 07:00 Intake Total 646.666 ml 530.432 ml Output Total 680 ml 420 ml Balance -33.334 ml 110.432 ml Intake Oral 70 ml IV Total 576.666 ml 530.432 ml Output Urine Total 680 ml 420 ml Laboratory Tests 12/04/19 00:00: Vancomycin Level Trough 1.2L Height (Feet): 5 Height (Inches): 6.00 Weight (Pounds): 176 Objective General Appearance: alert, awake, On BiPAP Cardiovascular: normal rate, regular rhythm Respiratory/Chest: lungs clear, normal breath sounds, no respiratory distress on BiPAP Abdomen: non tender, soft Ext: no edema Theodore Aguayo M.D. Dec 04, 2019 11:09
--- NOTE | 2019-12-04 12:00 | NUR ---
NURSE NOTES: Vital signs stable. HR remains elevated at 132 beats per minute. patient denies pain or distress. Patient sleeping at this time. Patient on CPAP at 100% FiO2. Patient alert to name, place, and purpose. Patient Luxembourgish speaking. Patient remains NPO at this time. Patient has right wrist 22 gauge peripheral IV and right forearm 20 gauge peripheral IV. Dry Psoriasis plaques noted on abdomen/belly button. Patient bed in low position with bed alarm on and call light in reach at this time. Patient assisted to reposition. Oral care offered. Will continue to monitor.
--- NOTE | 2019-12-04 12:04 | NUR ---
RADIOLOGY DEPT., CHEST X-RAY DONE.-P.DYE
--- NOTE | 2019-12-04 12:26 | Diagnostic Imaging Report ---
Indication: Dyspnea Technique: One view of the chest Comparison: 12/03/2019 Findings: Interim worsening of bilateral extensive airspace consolidation, now in an ARDS pattern. Old healed right navicular fracture deformity again noted. Impression: Worsening bilateral diffuse and extensive infiltrates, over one day
--- NOTE | 2019-12-04 12:48 | Cardiac Electrophysiology PN ---
Subjective Subjective [id number] Objective Last 24 Hour Vital Signs Date Time Temp Pulse Resp B/P (MAP) Pulse Ox O2 Delivery O2 Flow Rate FiO2 12/04/19 11:00 128 47 147/86 (106) 91 12/04/19 10:32 115 46 92 100 12/04/19 10:00 131 47 147/86 (106) 90 12/04/19 09:22 100.4 12/04/19 09:00 100.4 128 49 140/90 (107) 92 12/04/19 08:00 Bi-pap 12/04/19 08:00 130 43 93 100 12/04/19 08:00 100 12/04/19 08:00 16 12/04/19 08:00 130 42 157/91 (113) 93 12/04/19 07:00 129 43 142/79 (100) 90 12/04/19 06:00 118 44 144/91 (108) 92 12/04/19 05:00 126 43 124/76 (92) 91 12/04/19 04:00 100 12/04/19 04:00 Bi-pap 12/04/19 04:00 119 46 142/81 (101) 93 12/04/19 03:06 111 12/04/19 03:00 120 41 133/80 (97) 93 12/04/19 02:45 67 42 92 100 12/04/19 02:00 116 51 142/86 (104) 93 12/04/19 01:00 115 44 136/80 (98) 92 12/04/19 00:00 Bi-pap 12/04/19 00:00 99.3 115 31 135/82 (99) 94 12/03/19 23:14 119 12/03/19 23:01 109 36 93 100 12/03/19 23:00 118 45 119/74 (89) 94 12/03/19 22:00 125 43 132/73 (92) 93 12/03/19 21:00 118 48 138/85 (102) 96 12/03/19 20:00 100.1 123 46 133/77 (95) 94 12/03/19 20:00 100 12/03/19 20:00 Bi-pap 12/03/19 19:18 125 12/03/19 19:00 117 47 129/83 (98) 93 4/21/20 18:55 110 38 94 100 12/03/19 18:00 119 47 142/87 (105) 91 12/03/19 17:02 114 41 90 100 12/03/19 17:01 117 38 130/73 (92) 83 12/03/19 16:00 100 12/03/19 16:00 Bi-pap 12/03/19 16:00 101.0 111 46 131/84 (100) 87 12/03/19 16:00 119 12/03/19 15:00 109 36 114/74 (87) 86 12/03/19 14:00 100.0 124 49 123/75 (91) 87 12/03/19 13:00 123 32 128/75 (92) 90 Intake and Output 12/03/19 12/04/19 19:00 07:00 Intake Total 646.666 ml 530.432 ml Output Total 680 ml 420 ml Balance -33.334 ml 110.432 ml Intake Oral 70 ml IV Total 576.666 ml 530.432 ml Output Urine Total 680 ml 420 ml Laboratory Tests Test 12/04/19 00:00 Vancomycin Level Trough 1.2 ug/mL (5.0-12.0) Raul Ott MD Dec 04, 2019 12:48
[2019-12-04 13:09] LABS: HEMATOCRIT 39.9 % (42.0-52.0); HEMOGLOBIN 13.6 G/DL (14.2-18.0); MEAN CORPUSCULAR VOLUME 89 FL (80-99); PLATELET COUNT 595 K/UL (150-450); RED BLOOD COUNT 4.49 M/UL (4.70-6.10); RED CELL DISTRIBUTION WIDTH 11.8 % (11.6-14.8)
[2019-12-04 13:22] LABS: WHITE BLOOD COUNT 29.4 K/UL (4.8-10.8)
[2019-12-04 13:50] LABS: ALANINE AMINOTRANSFERASE 43 U/L (12-78); ALBUMIN 1.7 G/DL (3.4-5.0); ALBUMIN/GLOBULIN RATIO 0.3 (1.0-2.7); ALKALINE PHOSPHATASE 118 U/L (46-116); ANION GAP 11 mmol/L (5-15); ASPARTATE AMINO TRANSFERASE 46 U/L (15-37); BILIRUBIN,TOTAL 1.2 MG/DL (0.2-1.0); BLOOD UREA NITROGEN 18 mg/dL (7-18); CALCIUM 8.7 MG/DL (8.5-10.1); CARBON DIOXIDE 26 MMOL/L (21-32); CHLORIDE 107 MMOL/L (98-107); CREATININE 0.8 MG/DL (0.55-1.30); POTASSIUM 4.1 MMOL/L (3.5-5.1); SODIUM 143 MMOL/L (136-145)
[2019-12-04 13:53] LABS: BILIRUBIN,DIRECT 0.9 MG/DL (0.0-0.3)
--- NOTE | 2019-12-04 14:58 | NUR ---
NURSE NOTES: Patient HR elevated at 176, RR 50, and O2 saturation 77%. ABG ordered. Awaiting result. Will continue to monitor.
--- NOTE | 2019-12-04 15:20 | NUR ---
NURSE NOTES: Reported ABG result to Dr Cortes. Received telephone order to intubate patient. Dr Cortes notified ER . RN notified RT. Will follow up. Addendum: 12/04/19 at 1941 by Monserrat Murphy RN Order read back, verified, and placed.
[2019-12-04] MEDS: Acetaminophen 650 MG SUPP RECTAL PRN ×2 (16:10→20:10)
--- NOTE | 2019-12-04 16:22 | Emergency Room Report ---
History of Present Illness General Chief Complaint: Dyspnea/Respdistress Source: Patient, EMS Present Illness Allergies: Coded Allergies: No Known Allergies (Unverified , 11/29/19) COVID-19 Screening Contact w/high risk pt: Yes Recent Travel to affected area: No Experienced COVID-19 symptoms?: Yes COVID-19 symptoms experienced: Shortness of Breath, Cough Nursing Documentation-PMH Past Medical History: No History, Except For Hx Cardiac Problems: Yes Hx Hypertension: Yes Hx Gastrointestinal Problems: Yes Hx Neurological Problems: No Physical Exam Vital Signs Date Time Temp Pulse Resp B/P (MAP) Pulse Ox O2 Delivery O2 Flow Rate FiO2 11/30/19 06:59 104 47 94 100 11/30/19 07:00 116/74 (88) 11/30/19 08:00 Bi-pap 11/30/19 08:00 98.0 Procedures Intubation Intubation : Consent: Emergent Time of Intubation: 16:05 Intubation Method: orotracheal Tube Size (cm): 8.0 Medications: Etomidate, Rocuronium Breath Sounds after Intubation: equal Intubation Complications: no complications Post Intubation Xray: Yes Attempts: One Patient Tolerated: Well Complications: None Progress Patient was intubated with a glide scope with direct visualized vocal cords. Patient was noted to have initial saturation approximate 70%. Patient was placed on a ventilator and bagged via endotracheal tube with improvement oxygen saturation to approximately 85%. Patient was placed on ventilator. Continued to be tachycardic. Medical Decision Making Diagnostic Impression: Primary Impression: Suspected COVID-19 virus infection Additional Impressions: Respiratory distress Pneumonia Last Vital Signs Date Time Temp Pulse Resp B/P (MAP) Pulse Ox O2 Delivery O2 Flow Rate FiO2 12/04/19 15:33 140 50 80 100 12/04/19 15:00 174/101 (125) 12/04/19 12:00 98.1 12/04/19 12:00 Bi-pap Disposition: ADMITTED INPATIENT Condition: Critical Referrals: NOT CHOSEN IPA/,REFERRING (PCP) Yuriy Yao MD Dec 04, 2019 16:22
--- NOTE | 2019-12-04 16:33 | NUR ---
NURSE NOTES: Patient successfully intubated with size 8.0 ET tube with 24cm at the lip line. etomidate 20mg and rocuronium 50mg given prior to intubation. Chest x-ray taken. Awaiting result. SpO2 90-96% at this time. HR remains elevated at 166 beats per minute. Will notify Dr Appiah. RR 24. blood pressure 132/79.
--- NOTE | 2019-12-04 17:10 | NUR ---
NURSE NOTES: Notified Dr Cortes via telephone call that patient HR remains elevated at 158-175 beats per minute. Oxygen saturation now dropped to 75%. Received order for ABG after a few hours and propofol drip now. Order read back, verified, and placed.
[2019-12-04] MEDS: propofoL 1,000mg/100ml 100 ML IV SCH ×2 (17:25→22:40)
--- NOTE | 2019-12-04 17:32 | NUR ---
CASE MANAGEMENT: REVIEW SI: COVID-19 INFECTION . PNA . INTUBATED T 100.4 HR 136 RR 49 BP 152/90 SAT 92% MECH VENT FIO2 100 WBC 29.4 ABG: PH 7.376 PCO2 39.2 PO2 41.3 HCO3 74.8 BASE -2.4 IS: VIBRAMYCIN IV Q12HR ZOSYN IV Q8HR VANCO IV Q8HR TYLENOL 650MG Q6HR PRN ICU STATUS DCP: PATIENT IS FROM HOME
--- NOTE | 2019-12-04 17:53 | Diagnostic Imaging Report ---
Indication: Post intubation Technique: One view of the chest Comparison: 5 hours earlier Findings: Satisfactory endotracheal intubation, endotracheal tube tip projecting proximally 3 cm above the cindi. Bilateral extensive infiltrates are unchanged. The heart size is normal. Impression: Satisfactory endotracheal intubation Unchanged bilateral infiltrates
--- NOTE | 2019-12-04 18:04 | NUR ---
NURSE NOTES: Patient HR 155 in sinus tachycardia. Blood pressure 94/54. RR 40 on the ventilator on propofol. Oxygen saturation 58% on 100% FiO2. Called and notified Dr Cortes regarding patient's worsening condition and reported ABG result post intubation. Received order to prone patient, 12 hours on and 12 hours off, and change ventilator setting to AC 20, TV 500, FiO2 100%, and PEEP 10. Orders read back, verified, and placed.
--- NOTE | 2019-12-04 19:20 | NUR ---
NURSE NOTES: Received patient from ADRYA German. Will continue plan of care.
--- NOTE | 2019-12-04 19:30 | NUR ---
HAND-OFF: Report given to DARYA New. Patient HR remains 155. Oxygen saturation 87/88% at this time. Propofol running at 40mcg/kg/hr at this time. Was unable to prone patient. Endorsed to follow up.
--- NOTE | 2019-12-04 19:59 | NUR ---
NURSE NOTES: Patient BP been low SBP drops to the high 70s. HR still high in the 150s, apparently due to the patient fighting ventilator. Informed Dr. Musa and also informed that pt is now on propofol and does not have any maintenance IV fluids.
--- NOTE | 2019-12-04 20:00 | NUR ---
NURSE NOTES: Received patient intubated. ETT 8 @ 24cm to the lipline to vent with settings of AC:20, TV:500, FiO2:100%, PEEP:10. O2 saturation are in the 70-80%s at the moment; patient is very restless and breathing against the ventilator. Propofol was increased to 40mcgs by previous RN to reach goal of RASS -2 light sedation.
--- NOTE | 2019-12-04 20:25 | NUR ---
NURSE NOTES: Dr. Appiah ordered 500ml NS bolus. Will input order and administer.
--- NOTE | 2019-12-04 20:45 | Consultation ---
DATE OF CONSULTATION: 12/04/2019 CARDIOLOGY CONSULTATION CONSULTING PHYSICIAN: aRul Appiah MD. REFERRING PHYSICIAN: Beatrice Morgan MD. REASON FOR CONSULTATION: Tachycardia. HISTORY OF PRESENT ILLNESS: The patient is a 59-year-old gentleman with history of hypertension, who presented to the emergency room with increasing shortness of breath. The patient was having difficulty breathing for 3 days. The patient's son was positive for COVID-19 and he has been living with his son. On the arrival, the oxygen saturation was only 65%. The patient was admitted to intensive care unit. His chest x-ray got worse on a daily basis and ARDS. His heart rate is in the 130s and Cardiology consultation was obtained for further evaluation. At the time of my evaluation, the patient is in intensive care unit on CPAP and is not able to provide any meaningful information. REVIEW OF SYSTEMS: Cannot be obtained. PAST MEDICAL HISTORY: Includes only hypertension. FAMILY HISTORY: Noncontributory. SOCIAL HISTORY: He lives with son. Does not smoke or drink alcohol. PHYSICAL EXAMINATION: VITAL SIGNS: Show blood pressure of 147/86, pulse is 130, respiration is 47. HEAD AND NECK: Shows no JVD. LUNGS: Decreased breath sounds. Coarse rhonchi. CARDIOVASCULAR: Shows tachycardic S1 and S2 with no gallop. ABDOMEN: Soft. EXTREMITIES: No pitting edema. LABORATORY AND DIAGNOSTIC DATA: His labs show white count of 20.2, hemoglobin 12.9, hematocrit 36.8, and platelet count of 505,000. Sodium 137, potassium 4.6, BUN of 24, creatinine 0.8, and glucose of 103. D-dimer is 1.13. ASSESSMENT AND PLAN: 1. Tachycardia due to sinus tachycardia due to respiratory failure and COVID-19 pneumonia. The patient may have superimposing infection. The patient already on IV antibiotic with vancomycin and Zosyn as well as doxycycline. We will get an echocardiogram for further evaluation. The patient already completed hydroxychloroquine. 2. Hypertension, on p.r.n. hydralazine at this time. 3. Respiratory failure, on CPAP, likely would need to be intubated. Further evaluation by Dr. Cortes. Thank you very much for allowing me to participate in the care of this patient. Please do not hesitate to contact me for any questions regarding my evaluation. Raul Appiah M.D. DR: Samia JOB#: [id number] CC:
--- NOTE | 2019-12-04 20:51 | Infectious Diseases Prog Note ---
Assessment/Plan Assessment/Plan ASSESSMENT AND PLAN: 1. covid-19 virus infection with pna, rule out bacterial pna, sepsis, fevers, leukocytosis now on vent - meropenem vancomycin - s/p hydroxychloroquine - monitor chest x-ray and labs - critical - check cultures, labs, chest x-ray 2. Hypertension. 3. No known allergies. 4. Social history negative. 5. Family history noncontributory. 6. MAR was noted. 7. Case discussed with RN. 8. Continue treatment per primary consultants. Subjective Constitutional: Reports: fever, other - on vent now HEENT: Reports: congestion Respiratory: Reports: shortness of breath Cardiovascular: Reports: other - no pressors Gastrointestinal/Abdominal: Denies: nausea, vomiting Genitourinary: Reports: other - no barnes Psychiatric: Reports: other - NA Skin: Denies: rash Hematologic: Denies: bleeding Musculoskeletal: Reports: other - NA Allergies: Coded Allergies: No Known Allergies (Unverified , 11/29/19) Objective Vital Signs Last 24 Hour Vital Signs Date Time Temp Pulse Resp B/P (MAP) Pulse Ox O2 Delivery O2 Flow Rate FiO2 12/04/19 19:00 39 91/52 Mechanical Ventilator 100 12/04/19 19:00 155 39 98/56 (70) 77 12/04/19 18:45 39 91/52 Mechanical Ventilator 100 12/04/19 18:30 39 107/55 Mechanical Ventilator 100 12/04/19 18:15 38 107/55 Mechanical Ventilator 100 12/04/19 18:00 150 41 89/53 (65) 57 12/04/19 18:00 40 94/54 Mechanical Ventilator 100 12/04/19 17:45 40 94/54 Mechanical Ventilator 100 12/04/19 17:25 40 91/57 Mechanical Ventilator 100 12/04/19 17:00 99.5 149 32 93/69 (77) 56 12/04/19 17:00 149 32 93/69 (77) 56 12/04/19 16:40 99.7 12/04/19 16:32 100 12/04/19 16:00 101.4 171 32 132/79 (96) 92 12/04/19 16:00 159 20 100 12/04/19 16:00 Mechanical Ventilator 12/04/19 16:00 171 32 132/79 (96) 92 12/04/19 16:00 169 12/04/19 15:33 140 50 80 100 12/04/19 15:00 160 52 174/101 (125) 77 12/04/19 14:00 174 50 161/103 (122) 80 12/04/19 13:00 136 46 152/90 (110) 86 12/04/19 12:00 131 12/04/19 12:00 100 12/04/19 12:00 98.1 132 51 137/85 (102) 88 12/04/19 12:00 Bi-pap 12/04/19 11:00 128 47 147/86 (106) 91 12/04/19 10:32 115 46 92 100 12/04/19 10:00 131 47 147/86 (106) 90 12/04/19 09:22 100.4 12/04/19 09:00 100.4 128 49 140/90 (107) 92 12/04/19 08:00 Bi-pap 12/04/19 08:00 130 43 93 100 12/04/19 08:00 100 12/04/19 08:00 116 12/04/19 08:00 130 42 157/91 (113) 93 12/04/19 07:00 129 43 142/79 (100) 90 12/04/19 06:00 118 44 144/91 (108) 92 12/04/19 05:00 126 43 124/76 (92) 91 12/04/19 04:00 100 12/04/19 04:00 Bi-pap 12/04/19 04:00 119 46 142/81 (101) 93 12/04/19 03:06 111 12/04/19 03:00 120 41 133/80 (97) 93 12/04/19 02:45 67 42 92 100 12/04/19 02:00 116 51 142/86 (104) 93 12/04/19 01:00 115 44 136/80 (98) 92 12/04/19 00:00 Bi-pap 12/04/19 00:00 99.3 115 31 135/82 (99) 94 12/03/19 23:14 119 12/03/19 23:01 109 36 93 100 12/03/19 23:00 118 45 119/74 (89) 94 12/03/19 22:00 125 43 132/73 (92) 93 12/03/19 21:00 118 48 138/85 (102 96 Height (Feet): 5 Height (Inches): 6.00 Weight (Pounds): 176 General Appearance: other - on vent, low sats noted HEENT: normocephalic, atraumatic, anicteric Respiratory/Chest: crackles/rales, rhonchi - bilaterally Cardiovascular: regular rhythm, tachycardia Abdomen: normal bowel sounds, soft, non tender, no organomegaly, non distended Genitourinary: other - + barnes Extremities: no cyanosis Skin: no rash Neurologic/Psychiatric: other - weak, sedated Lymphatic: no neck adenopathy Musculoskeletal: no effusion Objective Chest x-ray - 12/02/19 - Procedure: XRAY Chest 1v EXAM: XR Chest, 1 View CLINICAL HISTORY: ABN CHST TECHNIQUE: Frontal view of the chest. COMPARISON: Chest x-ray dated 11/29/19 FINDINGS: Lungs: Persistent diffuse peripheral groundglass opacities, not significantly changed, concerning for pneumonia. Pleural space: Unremarkable. The costophrenic angles are sharp. No visible pneumothorax. Heart: Unremarkable. No cardiomegaly. Mediastinum: Unremarkable. Bones/joints: Mild degenerative changes throughout the visualized spine. Tubes, lines and devices: Telemetry leads overlie the thorax. IMPRESSION: No significant change compared to the prior chest x-ray. Persistent diffuse peripheral groundglass opacities, concerning for pneumonia. Laboratory Tests Test 12/04/19 00:00 12/04/19 12:46 12/04/19 14:57 12/04/19 17:30 Vancomycin Level Trough 1.2 ug/mL (5.0-12.0) L White Blood Count 29.4 K/UL (4.8-10.8) *H Red Blood Count 4.49 M/UL (4.70-6.10) L Hemoglobin 13.6 G/DL (14.2-18.0) L Hematocrit 39.9 % (42.0-52.0) L Mean Corpuscular Volume 89 FL (80-99) Mean Corpuscular Hemoglobin 30.2 PG (27.0-31.0) Mean Corpuscular Hemoglobin Concent 34.0 G/DL (32.0-36.0) Red Cell Distribution Width 11.8 % (11.6-14.8) Platelet Count 595 K/UL (150-450) H Mean Platelet Volume 5.9 FL (6.5-10.1) L Neutrophils (%) (Auto) % (45.0-75.0) Lymphocytes (%) (Auto) % (20.0-45.0) Monocytes (%) (Auto) % (1.0-10.0) Eosinophils (%) (Auto) % (0.0-3.0) Basophils (%) (Auto) % (0.0-2.0) Differential Total Cells Counted 100 Neutrophils % (Manual) 93 % (45-75) H Lymphocytes % (Manual) 3 % (20-45) L Monocytes % (Manual) 4 % (1-10) Eosinophils % (Manual) 0 % (0-3) Basophils % (Manual) 0 % (0-2) Band Neutrophils 0 % (0-8) Platelet Estimate Increased H Platelet Morphology Normal Sodium Level 143 MMOL/L (136-145) Potassium Level 4.1 MMOL/L (3.5-5.1) Chloride Level 107 MMOL/L (98-107) Carbon Dioxide Level 26 MMOL/L (21-32) Anion Gap 11 mmol/L (5-15) Blood Urea Nitrogen 18 mg/dL (7-18) Creatinine 0.8 MG/DL (0.55-1.30) Estimat Glomerular Filtration Rate > 60 mL/min (>60) Glucose Level 106 MG/DL (74-106) Calcium Level 8.7 MG/DL (8.5-10.1) Total Bilirubin 1.2 MG/DL (0.2-1.0) H Direct Bilirubin 0.9 MG/DL (0.0-0.3) H Aspartate Amino Transf (AST/SGOT) 46 U/L (15-37) H Alanine Aminotransferase (ALT/SGPT) 43 U/L (12-78) Alkaline Phosphatase 118 U/L (46-116) H Total Protein 7.5 G/DL (6.4-8.2) Albumin 1.7 G/DL (3.4-5.0) L Globulin 5.8 g/dL Albumin/Globulin Ratio 0.3 (1.0-2.7) L Triglycerides Level 109 MG/DL (30-150) Arterial Blood pH 7.376 (7.350-7.450) 7.039 (7.350-7.450) Arterial Blood Partial Pressure CO2 39.2 mmHg (35.0-45.0) 78.0 mmHg (35.0-45.0) *H Arterial Blood Partial Pressure O2 41.3 mmHg (75.0-100.0) 43.4 mmHg (75.0-100.0) Arterial Blood HCO3 22.5 mmol/L (22.0-26.0) 20.6 mmol/L (22.0-26.0) L Arterial Blood Oxygen Saturation 74.8 % (95-100) *L 57.9 % (95-100) *L Arterial Blood Base Excess -2.4 (-2-2) L -11.5 (-2-2) *L Melecio Test Positive Positive Current Medications Medications (Trade) Dose Ordered Sig/Vicki Route PRN Reason Start Time Stop Time Status Last Admin Dose Admin Acetaminophen (Tylenol) 650 mg Q4H PRN RECTAL Mild Pain (Pain Scale 1-3) 12/04/19 11:45 01/03/20 11:44 12/04/19 20:10 Acetaminophen (Tylenol) 650 mg Q6H PRN ORAL Temp >100.5 11/29/19 21:00 12/29/19 20:59 12/04/19 08:52 Dextrose (Dextrose 50%) 25 ml Q30M PRN IV Hypoglycemia 11/29/19 14:15 02/27/20 14:14 Dextrose (Dextrose 50%) 50 ml Q30M PRN IV Hypoglycemia 11/29/19 14:15 02/27/20 14:14 Doxycycline Hyclate 100 mg/ Dextrose 100 ml @ 100 mls/hr Q12HR IV 11/30/19 21:00 12/07/19 20:59 12/04/19 20:10 Heparin Sodium (Porcine) (Heparin 5000 units/ml) 5,000 units EVERY 8 HOURS SUBQ 11/30/19 14:00 01/14/20 13:59 12/04/19 20:11 Hydralazine HCl (Apresoline) 10 mg Q4H PRN IV For High Blood Pressure 11/29/19 15:15 02/27/20 15:14 Ondansetron HCl (Zofran) 4 mg Q6H PRN IVP Nausea & Vomiting 11/29/19 14:15 12/29/19 14:14 Pantoprazole (Protonix) 40 mg DAILY IVP 11/30/19 12:15 12/30/19 12:14 12/04/19 08:51 Piperacillin Sod/ Tazobactam Sod 3.375 gm/Sodium Chloride 110 ml @ 27.5 mls/hr EVERY 8 HOURS IVPB 12/02/19 14:00 12/07/19 13:59 12/04/19 20:10 Propofol 100 ml @ 0 mls/hr Q24H IV 12/04/19 17:15 12/06/19 17:14 12/04/19 17:25 Vancomycin HCl (Vanco rx to dose) 1 ea DAILY PRN MISC Per rx protocol 12/02/19 12:00 01/01/20 11:59 Vancomycin/Sodium Chloride 275 ml @ 137.5 mls/ hr Q8H IVPB 12/04/19 04:00 12/09/19 03:59 12/04/19 20:10 Ilsa Rodriguez MD Dec 04, 2019 20:51
--- NOTE | 2019-12-04 21:16 | NUR ---
RESPIRATORY NOTE: Received pt on AC 20, 500VT, 100%, PEEP +10. Pt intubated w/ ETT 8.0 @ 24cm lipline, secured by anchorfast. Pt sedated. B/S louise. rhonchi/diminished, sxn small amounts of thick/thin, doss-brown secretions w/ occasional red specks/clots. Pt just proned. Vent plugged into red outlet, ambubag at bedside. Pt tolerating well. Will continue to monitor pt.
--- NOTE | 2019-12-04 22:00 | NUR ---
NURSE NOTES: Second attempt at barnes catheter insertion, unable to insert. Urine drainage bag placed. 500ml NS bolus running for low BP (76/62). Patient placed into prone position. Safety measures in place.
[2019-12-04 23:23] LABS: APPEARANCE,URINE CLOUDY; BILIRUBIN, URINE NEGATIVE (NEGATIVE); GLUCOSE, URINE (UA) NEGATIVE (NEGATIVE); KETONES,URINE 3+ (NEGATIVE); LEUKOCYTE ESTERASE ,URINE 1+ (NEGATIVE); NITRITE,URINE NEGATIVE (NEGATIVE); PH,URINE 6 (4.5-8.0); PROTEIN,URINE 2+ (NEGATIVE); UROBILINOGEN,URINE 4 MG/DL (0.0-1.0)
[2019-12-05] VITALS (64 sets, daily range): BP systolic 48–156; BP diastolic 26–80
--- NOTE | 2019-12-05 | NUR ---
NURSE NOTES: Patient is now RASS -2 lightly sedated. Propofol running at 40mcgs and patient is tolerating. BP:101/65 w/ MAP74, HR:136, O2 saturation: 100%, showing little to no distress. Sputum and urine collected and sent to lab. Patient is in prone position, head turned to the right. Will continue plan of care.
[2019-12-05 00:04] LABS: COLOR,URINE YELLOW
--- NOTE | 2019-12-05 02:00 | NUR ---
NURSE NOTES: RASS -2 light sedation. Eyes open briefly and arouses easily. Continues propofol @40mcg, vital signs are stable, O2 saturating >98%. Will continue to monitor.
[2019-12-05] MEDS: propofoL 1,000mg/100ml 100 ML IV SCH ×2 (03:43→08:35)
--- NOTE | 2019-12-05 04:00 | NUR ---
NURSE NOTES: Remains on prone position until 0900. Head turned to the left and arm is positioned on top. Partial bed bath given.
[2019-12-05 05:21] LABS: HEMATOCRIT 38.3 % (42.0-52.0); HEMOGLOBIN 12.9 G/DL (14.2-18.0); MEAN CORPUSCULAR VOLUME 90 FL (80-99); PLATELET COUNT 490 K/UL (150-450); RED BLOOD COUNT 4.24 M/UL (4.70-6.10); RED CELL DISTRIBUTION WIDTH 12.1 % (11.6-14.8)
[2019-12-05 05:23] LABS: WHITE BLOOD COUNT 34.3 K/UL (4.8-10.8)
[2019-12-05 05:37] LABS: ALANINE AMINOTRANSFERASE 83 U/L (12-78); ALBUMIN 1.5 G/DL (3.4-5.0); ALBUMIN/GLOBULIN RATIO 0.3 (1.0-2.7); ALKALINE PHOSPHATASE 106 U/L (46-116); ANION GAP 13 mmol/L (5-15); ASPARTATE AMINO TRANSFERASE 155 U/L (15-37); BLOOD UREA NITROGEN 36 mg/dL (7-18); CALCIUM 8.2 MG/DL (8.5-10.1); CARBON DIOXIDE 23 MMOL/L (21-32); CHLORIDE 111 MMOL/L (98-107); CREATININE 2.3 MG/DL (0.55-1.30); POTASSIUM 5.2 MMOL/L (3.5-5.1); SODIUM 147 MMOL/L (136-145)
[2019-12-05] MEDS: Heparin 5000 units/ml inj SUBQ SCH ×3 (05:56→21:10)
--- NOTE | 2019-12-05 06:00 | NUR ---
NURSE NOTES: Patient suctioned. Very thick secretions. Small amount of blood from the nose. Vital signs stable.
--- NOTE | 2019-12-05 07:22 | NUR ---
HAND-OFF: Report given to DARYA German.
--- NOTE | 2019-12-05 07:23 | NUR ---
NURSE NOTES: Received patient from DARYA New. Patient sedated with RASS -2. Patient HR elevated at 135 beats per minute. Patient blood pressure 129/68. SpO2 98% and RR 39. Patient orally intubated with size 8 ET tube with 24cm at the lip line. Ventilator setting AC 20, tidal volume 500, FiO2 100%, and PEEP 10. Patient NPO. Patient has right wrist 22 gauge peripheral IV and right forearm 20 gauge peripheral IV that is running propofol at 40mcg/kg/hr. RASS -2. Peripheral IV patent, asymptomatic, and saline locked. Patient has urine pouch in place at this time. Dark marge urine noted. Patient bed in low position with bed alarm on and call light in reach at this time. Will continue to monitor. Patients complete metabolic panel results abnormal. will order stat redraw to confirm results are accurate. Oral care done at this time. Patient in prone position at this time. Will turn patient back over at 0900. Skin intact apart from psoriasis dry plaques on abdomen and legs.
--- NOTE | 2019-12-05 07:30 | NUR ---
RESPIRATORY NOTE: Received pt on AC 20,500ml , 100%, PEEP 10. Pt is sedated and intubated with ETT 8.0 @ 24cm lip line, secured by anchor fast. Vent plugged into red outlet, alarms are set and audible, ambu bag at bedside. Pt on prone position and in no apparent distress at this time. Will continue to monitor pt.
[2019-12-05] MEDS: Pantoprazole Inj IVP SCH (08:33)
[2019-12-05] MEDS: Acetaminophen 650 MG SUPP RECTAL PRN ×3 (08:55→21:10)
--- NOTE | 2019-12-05 09:12 | General Progress Note ---
Assessment/Plan Assessment/Plan: 59-year-old male with PMH of HTN presents with acute respiratory distress. #Acute Hypoxic Respiratory Failure s/p intubation #Severe sepsis #COVID19 positive #CAP #Transaminitis #elevated d-dimer #Fevers -continue ICU level of care -s/p Intubation 12/03 -vent management per Pulm/ICU/CCM team -cont. droplet isolation/precautions -CXR reviewed: b/l infiltrates suspicious for PNA -Transaminitis/d-dimer/fluctuating fevers likely reactive/ 2/2 COVID -cont. to monitor LFTs -11/25 BCx NGTD -EKG reviewed, sinus tach, HR 115, QTc 437 -trop negative x1, no CP at this time -s/p hydroxychloroquine -Pulm following, recs appreciated -ID, Dr. Rodriguez, following: Merrem, Vanc -Updated Lizzy yuen , on pt's condition/intubation #ALBARO #Hypernatremia -likely 2/2 to above, COVID -Cr 0.8>2.3 >3.1 -Na 146 -repeat BMP with worsening Cr -d/w Nephro, Dr. Soriano, recs appreciated #Sinus Tachycardia 2/2 respiratory failure #HTN -hydralazine PRN -Cardio, , following: Echo ordered, pending #Hyperkalemia -kayexalate -cont. to montior DVT PPX: Lovenox Pt is at high risk of rapid decompensation and requires continued ICU level of care Prognosis guarded Time spent on encounter: 75 mins, 40 mins spent on critical care time. Critical Care Services performed include: EKG Review Hemodynamic measurement interpretation Laboratory data review and interpretation Radiology image review and interpretation ABG interpretation Reviewed Tele monitor Discussion of patient's care with ICU team, Nursing staff, ID, Nephro and Pulm. Time of note doesn't reflect time of encounter. Subjective Allergies: Coded Allergies: No Known Allergies (Unverified , 11/29/19) Subjective Follow up for acute hypoxic resp failure, COVID19 positive Pt intubated yesterday due to respiratory failure. WBC worsening and Cr worsening from 0.8 -> 2.3. Objective Last 24 Hour Vital Signs Date Time Temp Pulse Resp B/P (MAP) Pulse Ox O2 Delivery O2 Flow Rate FiO2 12/05/19 08:35 35 121/70 Mechanical Ventilator 100 12/05/19 07:30 134 39 100 12/05/19 07:00 133 38 124/71 (88) 98 12/05/19 06:43 36 124/74 Mechanical Ventilator 100 12/05/19 06:00 132 39 127/72 (90) 98 12/05/19 05:43 40 126/75 Mechanical Ventilator 40 12/05/19 05:30 129 40 121/75 (90) 97 12/05/19 05:00 129 39 122/68 (86) 97 12/05/19 04:43 39 120/73 Mechanical Ventilator 100 12/05/19 04:30 128 39 117/75 (89) 98 12/05/19 04:00 100 12/05/19 04:00 Mechanical Ventilator 12/05/19 04:00 100.0 126 25 109/75 (86) 100 12/05/19 03:48 131 36 100 12/05/19 03:43 34 111/71 Mechanical Ventilator 100 12/05/19 03:40 36 111/71 Mechanical Ventilator 100 12/05/19 03:30 130 41 118/79 (92) 100 12/05/19 03:24 130 12/05/19 03:00 132 33 121/72 (88) 100 12/05/19 02:40 38 119/68 Mechanical Ventilator 100 12/05/19 02:30 131 33 98/73 (81) 100 12/05/19 02:00 132 32 97/70 (79) 100 12/05/19 01:40 33 116/70 Mechanical Ventilator 100 12/05/19 01:30 133 33 98/67 (77) 100 12/05/19 01:00 134 40 109/71 (84) 100 12/05/19 00:40 38 104/70 Mechanical Ventilator 100 12/05/19 00:30 135 35 110/68 (82) 100 12/05/19 00:00 99.8 137 34 98/61 (73) 99 12/05/19 00:00 Mechanical Ventilator 12/04/19 23:40 37 99/64 Mechanical Ventilator 100 12/04/19 23:30 136 34 97/64 (75) 99 12/04/19 23:25 137 30 100 12/04/19 23:22 136 12/04/19 23:15 137 45 96/66 (76) 99 12/04/19 23:00 137 46 97/62 (74) 98 12/04/19 22:45 136 39 95/62 (73) 98 12/04/19 22:40 24 86/57 Mechanical Ventilator 100 12/04/19 22:30 140 44 85/63 (70) 100 12/04/19 22:15 142 39 83/59 (67) 100 12/04/19 22:00 38 90/54 Mechanical Ventilator 100 12/04/19 22:00 142 34 77/51 (60) 99 12/04/19 21:45 145 47 72/55 (61) 97 12/04/19 21:30 151 33 107/59 (75) 96 12/04/19 21:25 144 33 85/59 (68) 96 12/04/19 21:22 144 31 72/55 (61) 96 12/04/19 21:20 144 33 74/51 (59) 95 12/04/19 21:19 144 34 80/50 (60) 94 12/04/19 21:17 144 36 77/54 (62) 94 12/04/19 21:16 144 33 94 Mechanical Ventilator 100 12/04/19 21:15 144 44 94/74 (81) 93 12/04/19 21:14 144 33 100 12/04/19 21:10 147 21 85/43 (57) 89 12/04/19 21:00 150 31 79/55 (63) 89 12/04/19 21:00 35 79/55 Mechanical Ventilator 100 12/04/19 20:55 151 36 99/56 (70) 88 12/04/19 20:50 151 37 101/47 (65) 89 12/04/19 20:45 151 39 93/66 (75) 88 12/04/19 20:40 100.0 12/04/19 20:40 151 36 103/58 (73) 88 12/04/19 20:35 151 40 90/49 (63) 90 12/04/19 20:30 151 40 95/61 (72) 89 12/04/19 20:25 152 40 85/49 (61) 89 12/04/19 20:20 152 40 87/48 (61) 89 12/04/19 20:15 152 39 96/51 (66) 88 12/04/19 20:10 153 40 96/44 (61) 89 12/04/19 20:05 154 40 85/60 (68) 88 12/04/19 20:00 100.8 154 40 84/64 (71) 88 12/04/19 20:00 100 12/04/19 20:00 40 85/60 Mechanical Ventilator 100 12/04/19 20:00 Mechanical Ventilator 12/04/19 19:35 155 12/04/19 19:00 39 91/52 Mechanical Ventilator 100 12/04/19 19:00 155 39 98/56 (70) 77 12/04/19 18:45 39 91/52 Mechanical Ventilator 100 12/04/19 18:30 39 107/55 Mechanical Ventilator 100 12/04/19 18:15 38 107/55 Mechanical Ventilator 100 12/04/19 18:00 150 41 89/53 (65) 57 12/04/19 18:00 40 94/54 Mechanical Ventilator 100 12/04/19 17:45 40 94/54 Mechanical Ventilator 100 12/04/19 17:25 40 91/57 Mechanical Ventilator 100 12/04/19 17:00 99.5 149 32 93/69 (77) 56 12/04/19 17:00 149 32 93/69 (77) 56 12/04/19 16:32 100 12/04/19 16:00 101.4 171 32 132/79 (96) 92 12/04/19 16:00 159 20 100 12/04/19 16:00 Mechanical Ventilator 12/04/19 16:00 171 32 132/79 (96) 92 12/04/19 16:00 169 12/04/19 15:33 140 50 80 100 12/04/19 15:00 160 52 174/101 (125) 77 12/04/19 14:00 174 50 161/103 (122) 80 12/04/19 13:00 136 46 152/90 (110) 86 12/04/19 12:00 131 12/04/19 12:00 100 12/04/19 12:00 98.1 132 51 137/85 (102) 88 12/04/19 12:00 Bi-pap 12/04/19 11:00 128 47 147/86 (106) 91 12/04/19 10:32 115 46 92 100 12/04/19 10:00 131 47 147/86 (106) 90 12/04/19 09:22 100.4 Intake and Output 12/04/19 12/05/19 19:00 07:00 Intake Total 628.39200 ml 798.214 ml Output Total 400 ml 300 ml Balance 228.99055 ml 498.214 ml IV Total 628.75938 ml 798.214 ml Output Urine Total 400 ml 300 ml Laboratory Tests 12/04/19 12:46: White Blood Count 29.4*H, Red Blood Count 4.49L, Hemoglobin 13.6L, Hematocrit 39.9L, Mean Corpuscular Volume 89, Mean Corpuscular Hemoglobin 30.2, Mean Corpuscular Hemoglobin Concent 34.0, Red Cell Distribution Width 11.8, Platelet Count 595H, Mean Platelet Volume 5.9L, Neutrophils (%) (Auto) , Lymphocytes (%) (Auto) , Monocytes (%) (Auto) , Eosinophils (%) (Auto) , Basophils (%) (Auto) , Differential Total Cells Counted 100, Neutrophils % (Manual) 93H, Lymphocytes % (Manual) 3L, Monocytes % (Manual) 4, Eosinophils % (Manual) 0, Basophils % ( Manual) 0, Band Neutrophils 0, Platelet Estimate IncreasedH, Platelet Morphology Normal, Sodium Level 143, Potassium Level 4.1, Chloride Level 107, Carbon Dioxide Level 26, Anion Gap 11, Blood Urea Nitrogen 18, Creatinine 0.8, Estimat Glomerular Filtration Rate > 60, Glucose Level 106, Calcium Level 8.7, Total Bilirubin 1.2H, Direct Bilirubin 0.9H, Aspartate Amino Transf (AST/SGOT) 46H, Alanine Aminotransferase (ALT/SGPT) 43, Alkaline Phosphatase 118H, Total Protein 7.5, Albumin 1.7L, Globulin 5.8, Albumin/Globulin Ratio 0.3L, Triglycerides Level 109 12/04/19 14:57: Arterial Blood pH 7.376, Arterial Blood Partial Pressure CO2 39.2, Arterial Blood Partial Pressure O2 41.3*L, Arterial Blood HCO3 22.5, Arterial Blood Oxygen Saturation 74.8*L, Arterial Blood Base Excess -2.4L, Melecio Test Positive 12/04/19 17:30: Arterial Blood pH 7.039*L, Arterial Blood Partial Pressure CO2 78.0*H, Arterial Blood Partial Pressure O2 43.4*L, Arterial Blood HCO3 20.6L, Arterial Blood Oxygen Saturation 57.9*L, Arterial Blood Base Excess -11.5*L, Melecio Test Positive 12/04/19 23:00: Urine Color Yellow, Urine Appearance Cloudy, Urine pH 6, Urine Specific [place] 1.025, Urine Protein 2+H, Urine Glucose (UA) Negative, Urine Ketones 3+H, Urine Blood 5+H, Urine Nitrite Negative, Urine Bilirubin Negative, Urine Urobilinogen 4H, Urine Leukocyte Esterase 1+H, Urine RBC 20-30H, Urine WBC 2-4, Urine Squamous Epithelial Cells Few, Urine Amorphous Sediment ManyH, Urine Bacteria ModerateH, Urine Coarse Granular Casts 2-4H 12/05/19 04:00: White Blood Count 34.3*H, Red Blood Count 4.24L, Hemoglobin 12.9L, Hematocrit 38.3L, Mean Corpuscular Volume 90, Mean Corpuscular Hemoglobin 30.4, Mean Corpuscular Hemoglobin Concent 33.7, Red Cell Distribution Width 12.1, Platelet Count 490H, Mean Platelet Volume 6.7, Neutrophils (%) (Auto) , Lymphocytes (%) ( Auto) , Monocytes (%) (Auto) , Eosinophils (%) (Auto) , Basophils (%) (Auto) , Differential Total Cells Counted 100, Neutrophils % (Manual) 93H, Lymphocytes % (Manual) 3L, Monocytes % (Manual) 2, Eosinophils % (Manual) 0, Basophils % ( Manual) 0, Band Neutrophils 2, Platelet Estimate Adequate, Platelet Morphology Normal, Polychromasia 1+, Sodium Level 147H, Potassium Level 5.2H, Chloride Level 111H, Carbon Dioxide Level 23, Anion Gap 13, Blood Urea Nitrogen 36H, Creatinine 2.3#H, Estimat Glomerular Filtration Rate 29.4, Glucose Level 127H, Calcium Level 8.2L, Total Bilirubin 1.0, Aspartate Amino Transf (AST/SGOT) 155H , Alanine Aminotransferase (ALT/SGPT) 83H, Alkaline Phosphatase 106, Total Protein 6.8, Albumin 1.5L, Globulin 5.3, Albumin/Globulin Ratio 0.3L, Vancomycin Level Trough 30.5H Height (Feet): 5 Height (Inches): 6.00 Weight (Pounds): 177 Objective General Appearance: intubated, prone Cardiovascular: normal rate, regular rhythm on tele Respiratory/Chest: symmetrical rise in lungs b/l, ETT in place Abdomen: non distended Ext: no edema noted Theodore Aguayo M.D. Dec 05, 2019 09:12
[2019-12-05] MEDS ORDERED: Sodium Polystyrene Sulfonate Enema RECTAL ONE (10:00)
--- NOTE | 2019-12-05 10:30 | NUR ---
NURSE NOTES: Dr Aguayo rounded on the patient. Update given. Received order for normal saline at 100mL/hr as patient remains NPO. Received order for NGT insertion and nutrition consult for tube feeding recommendation. ORders read back, verified, and placed.
[2019-12-05 10:53] LABS: ANION GAP 13 mmol/L (5-15); BLOOD UREA NITROGEN 47 mg/dL (7-18); CALCIUM 8.6 MG/DL (8.5-10.1); CARBON DIOXIDE 22 MMOL/L (21-32); CHLORIDE 110 MMOL/L (98-107); CREATININE 3.1 MG/DL (0.55-1.30); POTASSIUM 5.5 MMOL/L (3.5-5.1); SODIUM 145 MMOL/L (136-145)
[2019-12-05 10:58] LABS: ALANINE AMINOTRANSFERASE 76 U/L (12-78); ALBUMIN 1.5 G/DL (3.4-5.0); ALBUMIN/GLOBULIN RATIO 0.3 (1.0-2.7); ALKALINE PHOSPHATASE 108 U/L (46-116); ASPARTATE AMINO TRANSFERASE 160 U/L (15-37); TRIGLYCERIDES 164 MG/DL (30-150)
--- NOTE | 2019-12-05 11:39 | Cardiac Electrophysiology PN ---
Assessment/Plan Assessment/Plan 1. Atrial fib with RVR 170 right before intubation. Converted to Sinus tach after intubation. Troponin pending 2. Sinus Tachycardia due to respiratory failure and COVID-19 pneumonia. The patient may have superimposing infection. The patient already on IV antibiotic with vancomycin and Zosyn as well as doxycycline. Echocardiogram after Covid negative. The patient already completed hydroxychloroquine. 3. Hypotension. Resolved after 1500 cc NS. On NS at 100 cc. Off pressors 4. Respiratory failure, on the Vent by Dr. Cortes. 5. Acute renal failure. On iv fluid per Dr. Laura MORALES RN Subjective Subjective Intubated overnight. Had Atrial fib with RVR 160s.Was hypotensive and got iv fluids.Now in acute renal failure Objective Last 24 Hour Vital Signs Date Time Temp Pulse Resp B/P (MAP) Pulse Ox O2 Delivery O2 Flow Rate FiO2 12/05/19 10:00 135 38 114/64 (81) 99 12/05/19 09:30 135 39 130/71 (90) 98 12/05/19 09:00 137 39 115/73 (87) 98 12/05/19 08:35 35 121/70 Mechanical Ventilator 100 12/05/19 08:30 135 39 116/68 (84) 98 12/05/19 08:00 135 12/05/19 08:00 135 39 125/66 (85) 98 12/05/19 07:30 134 39 100 12/05/19 07:30 134 39 128/69 (88) 98 12/05/19 07:00 133 38 124/71 (88) 98 12/05/19 06:43 36 124/74 Mechanical Ventilator 100 12/05/19 06:00 132 39 127/72 (90) 98 12/05/19 05:43 40 126/75 Mechanical Ventilator 40 12/05/19 05:30 129 40 121/75 (90) 97 12/05/19 05:00 129 39 122/68 (86) 97 12/05/19 04:43 39 120/73 Mechanical Ventilator 100 12/05/19 04:30 128 39 117/75 (89) 98 12/05/19 04:00 100 12/05/19 04:00 Mechanical Ventilator 12/05/19 04:00 100.0 126 25 109/75 (86) 100 12/05/19 03:48 131 36 100 12/05/19 03:43 34 111/71 Mechanical Ventilator 100 12/05/19 03:40 36 111/71 Mechanical Ventilator 100 12/05/19 03:30 130 41 118/79 (92) 100 12/05/19 03:24 130 12/05/19 03:00 132 33 121/72 (88) 100 12/05/19 02:40 38 119/68 Mechanical Ventilator 100 12/05/19 02:30 131 33 98/73 (81) 100 12/05/19 02:00 132 32 97/70 (79) 100 12/05/19 01:40 33 116/70 Mechanical Ventilator 100 12/05/19 01:30 133 33 98/67 (77) 100 12/05/19 01:00 134 40 109/71 (84) 100 12/05/19 00:40 38 104/70 Mechanical Ventilator 100 12/05/19 00:30 135 35 110/68 (82) 100 12/05/19 00:00 99.8 137 34 98/61 (73) 99 12/05/19 00:00 Mechanical Ventilator 12/04/19 23:40 37 99/64 Mechanical Ventilator 100 12/04/19 23:30 136 34 97/64 (75) 99 12/04/19 23:25 137 30 100 12/04/19 23:22 136 12/04/19 23:15 137 45 96/66 (76) 99 12/04/19 23:00 137 46 97/62 (74) 98 12/04/19 22:45 136 39 95/62 (73) 98 12/04/19 22:40 24 86/57 Mechanical Ventilator 100 12/04/19 22:30 140 44 85/63 (70) 100 12/04/19 22:15 142 39 83/59 (67) 100 12/04/19 22:00 38 90/54 Mechanical Ventilator 100 12/04/19 22:00 142 34 77/51 (60) 99 12/04/19 21:45 145 47 72/55 (61) 97 12/04/19 21:30 151 33 107/59 (75) 96 12/04/19 21:25 144 33 85/59 (68) 96 12/04/19 21:22 144 31 72/55 (61) 96 12/04/19 21:20 144 33 74/51 (59) 95 4/22/20 21:19 144 34 80/50 (60) 94 12/04/19 21:17 144 36 77/54 (62) 94 12/04/19 21:16 144 33 94 Mechanical Ventilator 100 12/04/19 21:15 144 44 94/74 (81) 93 12/04/19 21:14 144 33 100 12/04/19 21:10 147 21 85/43 (57) 89 12/04/19 21:00 150 31 79/55 (63) 89 12/04/19 21:00 35 79/55 Mechanical Ventilator 100 12/04/19 20:55 151 36 99/56 (70) 88 12/04/19 20:50 151 37 101/47 (65) 89 12/04/19 20:45 151 39 93/66 (75) 88 12/04/19 20:40 100.0 12/04/19 20:40 151 36 103/58 (73) 88 12/04/19 20:35 151 40 90/49 (63) 90 12/04/19 20:30 151 40 95/61 (72) 89 12/04/19 20:25 152 40 85/49 (61) 89 12/04/19 20:20 152 40 87/48 (61) 89 12/04/19 20:15 152 39 96/51 (66) 88 12/04/19 20:10 153 40 96/44 (61) 89 12/04/19 20:05 154 40 85/60 (68) 88 12/04/19 20:00 100.8 154 40 84/64 (71) 88 12/04/19 20:00 100 12/04/19 20:00 40 85/60 Mechanical Ventilator 100 12/04/19 20:00 Mechanical Ventilator 12/04/19 19:35 155 12/04/19 19:00 39 91/52 Mechanical Ventilator 100 12/04/19 19:00 155 39 98/56 (70) 77 12/04/19 18:45 39 91/52 Mechanical Ventilator 100 12/04/19 18:30 39 107/55 Mechanical Ventilator 100 12/04/19 18:15 38 107/55 Mechanical Ventilator 100 12/04/19 18:00 150 41 89/53 (65) 57 12/04/19 18:00 40 94/54 Mechanical Ventilator 100 12/04/19 17:45 40 94/54 Mechanical Ventilator 100 12/04/19 17:25 40 91/57 Mechanical Ventilator 100 12/04/19 17:00 99.5 149 32 93/69 (77) 56 12/04/19 17:00 149 32 93/69 (77) 56 12/04/19 16:32 100 12/04/19 16:00 101.4 171 32 132/79 (96) 92 12/04/19 16:00 159 20 100 12/04/19 16:00 Mechanical Ventilator 12/04/19 16:00 171 32 132/79 (96) 92 12/04/19 16:00 169 12/04/19 15:33 140 50 80 100 12/04/19 15:00 160 52 174/101 (125) 77 12/04/19 14:00 174 50 161/103 (122) 80 12/04/19 13:00 136 46 152/90 (110) 86 12/04/19 12:00 131 12/04/19 12:00 100 12/04/19 12:00 98.1 132 51 137/85 (102) 88 12/04/19 12:00 Bi-pap Intake and Output 12/04/19 12/05/19 19:00 07:00 Intake Total 628.44272 ml 798.214 ml Output Total 400 ml 300 ml Balance 228.89970 ml 498.214 ml IV Total 628.57092 ml 798.214 ml Output Urine Total 400 ml 300 ml Laboratory Tests Test 12/04/19 12:46 12/04/19 14:57 12/04/19 17:30 12/04/19 23:00 White Blood Count 29.4 K/UL (4.8-10.8) *H Red Blood Count 4.49 M/UL (4.70-6.10) L Hemoglobin 13.6 G/DL (14.2-18.0) L Hematocrit 39.9 % (42.0-52.0) L Mean Corpuscular Volume 89 FL (80-99) Mean Corpuscular Hemoglobin 30.2 PG (27.0-31.0) Mean Corpuscular Hemoglobin Concent 34.0 G/DL (32.0-36.0) Red Cell Distribution Width 11.8 % (11.6-14.8) Platelet Count 595 K/UL (150-450) H Mean Platelet Volume 5.9 FL (6.5-10.1) L Neutrophils (%) (Auto) % (45.0-75.0) Lymphocytes (%) (Auto) % (20.0-45.0) Monocytes (%) (Auto) % (1.0-10.0) Eosinophils (%) (Auto) % (0.0-3.0) Basophils (%) (Auto) % (0.0-2.0) Differential Total Cells Counted 100 Neutrophils % (Manual) 93 % (45-75) H Lymphocytes % (Manual) 3 % (20-45) L Monocytes % (Manual) 4 % (1-10) Eosinophils % (Manual) 0 % (0-3) Basophils % (Manual) 0 % (0-2) Band Neutrophils 0 % (0-8) Platelet Estimate Increased H Platelet Morphology Normal Sodium Level 143 MMOL/L (136-145) Potassium Level 4.1 MMOL/L (3.5-5.1) Chloride Level 107 MMOL/L (98-107) Carbon Dioxide Level 26 MMOL/L (21-32) Anion Gap 11 mmol/L (5-15) Blood Urea Nitrogen 18 mg/dL (7-18) Creatinine 0.8 MG/DL (0.55-1.30) Estimat Glomerular Filtration Rate > 60 mL/min (>60) Glucose Level 106 MG/DL (74-106) Calcium Level 8.7 MG/DL (8.5-10.1) Total Bilirubin 1.2 MG/DL (0.2-1.0) H Direct Bilirubin 0.9 MG/DL (0.0-0.3) H Aspartate Amino Transf (AST/SGOT) 46 U/L (15-37) H Alanine Aminotransferase (ALT/SGPT) 43 U/L (12-78) Alkaline Phosphatase 118 U/L (46-116) H Total Protein 7.5 G/DL (6.4-8.2) Albumin 1.7 G/DL (3.4-5.0) L Globulin 5.8 g/dL Albumin/Globulin Ratio 0.3 (1.0-2.7) L Triglycerides Level 109 MG/DL (30-150) Arterial Blood pH 7.376 (7.350-7.450) 7.039 (7.350-7.450) Arterial Blood Partial Pressure CO2 39.2 mmHg (35.0-45.0) 78.0 mmHg (35.0-45.0) *H Arterial Blood Partial Pressure O2 41.3 mmHg (75.0-100.0) 43.4 mmHg (75.0-100.0) Arterial Blood HCO3 22.5 mmol/L (22.0-26.0) 20.6 mmol/L (22.0-26.0) L Arterial Blood Oxygen Saturation 74.8 % (95-100) *L 57.9 % (95-100) *L Arterial Blood Base Excess -2.4 (-2-2) L -11.5 (-2-2) *L Melecio Test Positive Positive Urine Color Yellow Urine Appearance Cloudy Urine pH 6 (4.5-8.0) Urine Specific [place] 1.025 (1.005-1.035) Urine Protein 2+ (NEGATIVE) H Urine Glucose (UA) Negative (NEGATIVE) Urine Ketones 3+ (NEGATIVE) H Urine Blood 5+ (NEGATIVE) H Urine Nitrite Negative (NEGATIVE) Urine Bilirubin Negative (NEGATIVE) Urine Urobilinogen 4 MG/DL (0.0-1.0) H Urine Leukocyte Esterase 1+ (NEGATIVE) H Urine RBC 20-30 /HPF (0 - 0) H Urine WBC 2-4 /HPF (0 - 0) Urine Squamous Epithelial Cells Few /LPF (NONE/OCC) Urine Amorphous Sediment Many /LPF (NONE) H Urine Bacteria Moderate /HPF (NONE) H Urine Coarse Granular Casts 2-4 /LPF (NONE) H Test 12/05/19 04:00 12/05/19 09:40 White Blood Count 34.3 K/UL (4.8-10.8) *H Red Blood Count 4.24 M/UL (4.70-6.10) L Hemoglobin 12.9 G/DL (14.2-18.0) L Hematocrit 38.3 % (42.0-52.0) L Mean Corpuscular Volume 90 FL (80-99) Mean Corpuscular Hemoglobin 30.4 PG (27.0-31.0) Mean Corpuscular Hemoglobin Concent 33.7 G/DL (32.0-36.0) Red Cell Distribution Width 12.1 % (11.6-14.8) Platelet Count 490 K/UL (150-450) H Mean Platelet Volume 6.7 FL (6.5-10.1) Neutrophils (%) (Auto) % (45.0-75.0) Lymphocytes (%) (Auto) % (20.0-45.0) Monocytes (%) (Auto) % (1.0-10.0) Eosinophils (%) (Auto) % (0.0-3.0) Basophils (%) (Auto) % (0.0-2.0) Differential Total Cells Counted 100 Neutrophils % (Manual) 93 % (45-75) H Lymphocytes % (Manual) 3 % (20-45) L Monocytes % (Manual) 2 % (1-10) Eosinophils % (Manual) 0 % (0-3) Basophils % (Manual) 0 % (0-2) Band Neutrophils 2 % (0-8) Platelet Estimate Adequate Platelet Morphology Normal Polychromasia 1+ Sodium Level 147 MMOL/L (136-145) H 145 MMOL/L (136-145) Potassium Level 5.2 MMOL/L (3.5-5.1) H 5.5 MMOL/L (3.5-5.1) H Chloride Level 111 MMOL/L (98-107) H 110 MMOL/L (98-107) H Carbon Dioxide Level 23 MMOL/L (21-32) 22 MMOL/L (21-32) Anion Gap 13 mmol/L (5-15) 13 mmol/L (5-15) Blood Urea Nitrogen 36 mg/dL (7-18) H 47 mg/dL (7-18) H Creatinine 2.3 MG/DL (0.55-1.30) #H 3.1 MG/DL (0.55-1.30) H Estimat Glomerular Filtration Rate 29.4 mL/min (>60) 20.8 mL/min (>60) Glucose Level 127 MG/DL (74-106) H 120 MG/DL (74-106) H Calcium Level 8.2 MG/DL (8.5-10.1) L 8.6 MG/DL (8.5-10.1) Total Bilirubin 1.0 MG/DL (0.2-1.0) 1.0 MG/DL (0.2-1.0) Aspartate Amino Transf (AST/SGOT) 155 U/L (15-37) H 160 U/L (15-37) H Alanine Aminotransferase (ALT/SGPT) 83 U/L (12-78) H 76 U/L (12-78) Alkaline Phosphatase 106 U/L (46-116) 108 U/L (46-116) Total Protein 6.8 G/DL (6.4-8.2) 6.9 G/DL (6.4-8.2) Albumin 1.5 G/DL (3.4-5.0) L 1.5 G/DL (3.4-5.0) L Globulin 5.3 g/dL 5.4 g/dL Albumin/Globulin Ratio 0.3 (1.0-2.7) L 0.3 (1.0-2.7) L Vancomycin Level Trough 30.5 ug/mL (5.0-12.0) H Triglycerides Level 164 MG/DL (30-150) H Microbiology Date/Time Source Procedure Growth Status 12/04/19 23:00 Sputum Gram Stain - Final Resulted 12/04/19 23:00 Sputum Sputum Culture Pending Resulted Objective HEAD AND NECK: Orally intubated LUNGS: Decreased breath sounds. Coarse rhonchi. CARDIOVASCULAR: Tachycardic S1 and S2 with no gallop. ABDOMEN: Soft. EXTREMITIES: No pitting edema. Raul Appiah MD Dec 05, 2019 11:39
[2019-12-05] MEDS ORDERED: Vancomycin 1 GM in NS 275 ML IVPB SCH (12:00)
--- NOTE | 2019-12-05 12:00 | NUR ---
NURSE NOTES: Patient placed back in semi-fowlers position at 1030. Patient remains sedated with RASS -2. Patient HR elevated at 130 beats per minute. Patient blood pressure 95/56. SpO2 98% and RR 35. Patient remains orally intubated with size 8 ET tube with 24cm at the lip line. Ventilator setting AC 20, tidal volume 500, FiO2 100%, and PEEP 10. Patient remains NPO. Right wrist 22 gauge peripheral IV and right forearm 20 gauge peripheral IV remain patent with the wrist PIV running propofol at 40mcg/kg/hr. RASS -2 and the forearm PIV running normal saline at 100mL/hr. Bed in low position with bed alarm on and call light in reach at this time. Will continue to monitor. Skin remains intact. Patient repositioned and oral care performed.
--- NOTE | 2019-12-05 12:08 | NUR ---
NURSE NOTES: Notified Dr Cortes via telephone call that patient has high triglyceride level this morning and blood pressure trending low. Received order for fentanyl drip, Levophed drip, discontinue propofol drip, insert PICC line. Orders read back, verified, and placed at this time.
--- NOTE | 2019-12-05 12:12 | Consultation ---
History of Present Illness General Chief Complaint: Dyspnea/Respdistress Present Illness HPI 59 year old male with past medical history of HTN and HLD was admitted with hypoexmic respiratory failure found to have COVID pneurmonia, patient now s/p intubation on 12/04/19. patient now with progressive renal failure since yesterday. Cr from 0.8-> 2.3-> 3.1 k 5.5 albumin 1.5 Allergies: Coded Allergies: No Known Allergies (Unverified , 11/29/19) Patient History Healthcare decision maker N Resuscitation status Full Code Advanced Directive on File Review of Systems ROS Narrative unable to obtain due to clinical condition as patient is intubated Physical Exam General Appearance: other - intubated- proned Lines, tubes and drains: central line HEENT: normocephalic, atraumatic Respiratory/Chest: rhonchi - bilaterally Cardiovascular/Chest: other - tachycardic Extremities: pitting Last 24 Hour Vital Signs Date Time Temp Pulse Resp B/P (MAP) Pulse Ox O2 Delivery O2 Flow Rate FiO2 12/05/19 11:10 129 32 100 12/05/19 10:00 135 38 114/64 (81) 99 12/05/19 09:30 135 39 130/71 (90) 98 12/05/19 09:25 98.7 12/05/19 09:00 137 39 115/73 (87) 98 12/05/19 08:35 35 121/70 Mechanical Ventilator 100 12/05/19 08:30 135 39 116/68 (84) 98 12/05/19 08:00 135 12/05/19 08:00 135 39 125/66 (85) 98 12/05/19 07:30 134 39 100 12/05/19 07:30 134 39 128/69 (88) 98 12/05/19 07:00 133 38 124/71 (88) 98 12/05/19 06:43 36 124/74 Mechanical Ventilator 100 12/05/19 06:00 132 39 127/72 (90) 98 12/05/19 05:43 40 126/75 Mechanical Ventilator 40 12/05/19 05:30 129 40 121/75 (90) 97 12/05/19 05:00 129 39 122/68 (86) 97 12/05/19 04:43 39 120/73 Mechanical Ventilator 100 12/05/19 04:30 128 39 117/75 (89) 98 12/05/19 04:00 100 12/05/19 04:00 Mechanical Ventilator 12/05/19 04:00 100.0 126 25 109/75 (86) 100 12/05/19 03:48 131 36 100 12/05/19 03:43 34 111/71 Mechanical Ventilator 100 12/05/19 03:40 36 111/71 Mechanical Ventilator 100 12/05/19 03:30 130 41 118/79 (92) 100 12/05/19 03:24 130 12/05/19 03:00 132 33 121/72 (88) 100 12/05/19 02:40 38 119/68 Mechanical Ventilator 100 12/05/19 02:30 131 33 98/73 (81) 100 12/05/19 02:00 132 32 97/70 (79) 100 12/05/19 01:40 33 116/70 Mechanical Ventilator 100 12/05/19 01:30 133 33 98/67 (77) 100 12/05/19 01:00 134 40 109/71 (84) 100 12/05/19 00:40 38 104/70 Mechanical Ventilator 100 12/05/19 00:30 135 35 110/68 (82) 100 12/05/19 00:00 99.8 137 34 98/61 (73) 99 12/05/19 00:00 Mechanical Ventilator 12/04/19 23:40 37 99/64 Mechanical Ventilator 100 12/04/19 23:30 136 34 97/64 (75) 99 12/04/19 23:25 137 30 100 12/04/19 23:22 136 12/04/19 23:15 137 45 96/66 (76) 99 12/04/19 23:00 137 46 97/62 (74) 98 12/04/19 22:45 136 39 95/62 (73) 98 12/04/19 22:40 24 86/57 Mechanical Ventilator 100 12/04/19 22:30 140 44 85/63 (70) 100 12/04/19 22:15 142 39 83/59 (67) 100 12/04/19 22:00 38 90/54 Mechanical Ventilator 100 12/04/19 22:00 142 34 77/51 (60) 99 12/04/19 21:45 145 47 72/55 (61) 97 12/04/19 21:30 151 33 107/59 (75) 96 12/04/19 21:25 144 33 85/59 (68) 96 12/04/19 21:22 144 31 72/55 (61) 96 12/04/19 21:20 144 33 74/51 (59) 95 12/04/19 21:19 144 34 80/50 (60) 94 12/04/19 21:17 144 36 77/54 (62) 94 12/04/19 21:16 144 33 94 Mechanical Ventilator 100 12/04/19 21:15 144 44 94/74 (81) 93 12/04/19 21:14 144 33 100 12/04/19 21:10 147 21 85/43 (57) 89 12/04/19 21:00 150 31 79/55 (63) 89 12/04/19 21:00 35 79/55 Mechanical Ventilator 100 12/04/19 20:55 151 36 99/56 (70) 88 12/04/19 20:50 151 37 101/47 (65) 89 12/04/19 20:45 151 39 93/66 (75) 88 12/04/19 20:40 151 36 103/58 (73) 88 12/04/19 20:35 151 40 90/49 (63) 90 12/04/19 20:30 151 40 95/61 (72) 89 12/04/19 20:25 152 40 85/49 (61) 89 12/04/19 20:20 152 40 87/48 (61) 89 12/04/19 20:15 152 39 96/51 (66) 88 12/04/19 20:10 153 40 96/44 (61) 89 12/04/19 20:05 154 40 85/60 (68) 88 12/04/19 20:00 100.8 154 40 84/64 (71) 88 12/04/19 20:00 100 12/04/19 20:00 40 85/60 Mechanical Ventilator 100 12/04/19 20:00 Mechanical Ventilator 12/04/19 19:35 155 12/04/19 19:00 39 91/52 Mechanical Ventilator 100 12/04/19 19:00 155 39 98/56 (70) 77 12/04/19 18:45 39 91/52 Mechanical Ventilator 100 12/04/19 18:30 39 107/55 Mechanical Ventilator 100 12/04/19 18:15 38 107/55 Mechanical Ventilator 100 12/04/19 18:00 150 41 89/53 (65) 57 12/04/19 18:00 40 94/54 Mechanical Ventilator 100 12/04/19 17:45 40 94/54 Mechanical Ventilator 100 12/04/19 17:25 40 91/57 Mechanical Ventilator 100 12/04/19 17:00 99.5 149 32 93/69 (77) 56 12/04/19 17:00 149 32 93/69 (77) 56 12/04/19 16:32 100 12/04/19 16:00 101.4 171 32 132/79 (96) 92 12/04/19 16:00 159 20 100 12/04/19 16:00 Mechanical Ventilator 12/04/19 16:00 171 32 132/79 (96) 92 12/04/19 16:00 169 12/04/19 15:33 140 50 80 100 12/04/19 15:00 160 52 174/101 (125) 77 12/04/19 14:00 174 50 161/103 (122) 80 12/04/19 13:00 136 46 152/90 (110) 86 Intake and Output 12/04/19 12/05/19 19:00 07:00 Intake Total 628.20203 ml 798.214 ml Output Total 400 ml 300 ml Balance 228.33289 ml 498.214 ml IV Total 628.13619 ml 798.214 ml Output Urine Total 400 ml 300 ml Laboratory Tests Test 12/04/19 12:46 12/04/19 14:57 12/04/19 17:30 12/04/19 23:00 White Blood Count 29.4 K/UL (4.8-10.8) *H Red Blood Count 4.49 M/UL (4.70-6.10) L Hemoglobin 13.6 G/DL (14.2-18.0) L Hematocrit 39.9 % (42.0-52.0) L Mean Corpuscular Volume 89 FL (80-99) Mean Corpuscular Hemoglobin 30.2 PG (27.0-31.0) Mean Corpuscular Hemoglobin Concent 34.0 G/DL (32.0-36.0) Red Cell Distribution Width 11.8 % (11.6-14.8) Platelet Count 595 K/UL (150-450) H Mean Platelet Volume 5.9 FL (6.5-10.1) L Neutrophils (%) (Auto) % (45.0-75.0) Lymphocytes (%) (Auto) % (20.0-45.0) Monocytes (%) (Auto) % (1.0-10.0) Eosinophils (%) (Auto) % (0.0-3.0) Basophils (%) (Auto) % (0.0-2.0) Differential Total Cells Counted 100 Neutrophils % (Manual) 93 % (45-75) H Lymphocytes % (Manual) 3 % (20-45) L Monocytes % (Manual) 4 % (1-10) Eosinophils % (Manual) 0 % (0-3) Basophils % (Manual) 0 % (0-2) Band Neutrophils 0 % (0-8) Platelet Estimate Increased H Platelet Morphology Normal Sodium Level 143 MMOL/L (136-145) Potassium Level 4.1 MMOL/L (3.5-5.1) Chloride Level 107 MMOL/L (98-107) Carbon Dioxide Level 26 MMOL/L (21-32) Anion Gap 11 mmol/L (5-15) Blood Urea Nitrogen 18 mg/dL (7-18) Creatinine 0.8 MG/DL (0.55-1.30) Estimat Glomerular Filtration Rate > 60 mL/min (>60) Glucose Level 106 MG/DL (74-106) Calcium Level 8.7 MG/DL (8.5-10.1) Total Bilirubin 1.2 MG/DL (0.2-1.0) H Direct Bilirubin 0.9 MG/DL (0.0-0.3) H Aspartate Amino Transf (AST/SGOT) 46 U/L (15-37) H Alanine Aminotransferase (ALT/SGPT) 43 U/L (12-78) Alkaline Phosphatase 118 U/L (46-116) H Total Protein 7.5 G/DL (6.4-8.2) Albumin 1.7 G/DL (3.4-5.0) L Globulin 5.8 g/dL Albumin/Globulin Ratio 0.3 (1.0-2.7) L Triglycerides Level 109 MG/DL (30-150) Arterial Blood pH 7.376 (7.350-7.450) 7.039 (7.350-7.450) Arterial Blood Partial Pressure CO2 39.2 mmHg (35.0-45.0) 78.0 mmHg (35.0-45.0) *H Arterial Blood Partial Pressure O2 41.3 mmHg (75.0-100.0) 43.4 mmHg (75.0-100.0) Arterial Blood HCO3 22.5 mmol/L (22.0-26.0) 20.6 mmol/L (22.0-26.0) L Arterial Blood Oxygen Saturation 74.8 % (95-100) *L 57.9 % (95-100) *L Arterial Blood Base Excess -2.4 (-2-2) L -11.5 (-2-2) *L Melecio Test Positive Positive Urine Color Yellow Urine Appearance Cloudy Urine pH 6 (4.5-8.0) Urine Specific [place] 1.025 (1.005-1.035) Urine Protein 2+ (NEGATIVE) H Urine Glucose (UA) Negative (NEGATIVE) Urine Ketones 3+ (NEGATIVE) H Urine Blood 5+ (NEGATIVE) H Urine Nitrite Negative (NEGATIVE) Urine Bilirubin Negative (NEGATIVE) Urine Urobilinogen 4 MG/DL (0.0-1.0) H Urine Leukocyte Esterase 1+ (NEGATIVE) H Urine RBC 20-30 /HPF (0 - 0) H Urine WBC 2-4 /HPF (0 - 0) Urine Squamous Epithelial Cells Few /LPF (NONE/OCC) Urine Amorphous Sediment Many /LPF (NONE) H Urine Bacteria Moderate /HPF (NONE) H Urine Coarse Granular Casts 2-4 /LPF (NONE) H Test 12/05/19 04:00 12/05/19 09:40 White Blood Count 34.3 K/UL (4.8-10.8) *H Red Blood Count 4.24 M/UL (4.70-6.10) L Hemoglobin 12.9 G/DL (14.2-18.0) L Hematocrit 38.3 % (42.0-52.0) L Mean Corpuscular Volume 90 FL (80-99) Mean Corpuscular Hemoglobin 30.4 PG (27.0-31.0) Mean Corpuscular Hemoglobin Concent 33.7 G/DL (32.0-36.0) Red Cell Distribution Width 12.1 % (11.6-14.8) Platelet Count 490 K/UL (150-450) H Mean Platelet Volume 6.7 FL (6.5-10.1) Neutrophils (%) (Auto) % (45.0-75.0) Lymphocytes (%) (Auto) % (20.0-45.0) Monocytes (%) (Auto) % (1.0-10.0) Eosinophils (%) (Auto) % (0.0-3.0) Basophils (%) (Auto) % (0.0-2.0) Differential Total Cells Counted 100 Neutrophils % (Manual) 93 % (45-75) H Lymphocytes % (Manual) 3 % (20-45) L Monocytes % (Manual) 2 % (1-10) Eosinophils % (Manual) 0 % (0-3) Basophils % (Manual) 0 % (0-2) Band Neutrophils 2 % (0-8) Platelet Estimate Adequate Platelet Morphology Normal Polychromasia 1+ Sodium Level 147 MMOL/L (136-145) H 145 MMOL/L (136-145) Potassium Level 5.2 MMOL/L (3.5-5.1) H 5.5 MMOL/L (3.5-5.1) H Chloride Level 111 MMOL/L (98-107) H 110 MMOL/L (98-107) H Carbon Dioxide Level 23 MMOL/L (21-32) 22 MMOL/L (21-32) Anion Gap 13 mmol/L (5-15) 13 mmol/L (5-15) Blood Urea Nitrogen 36 mg/dL (7-18) H 47 mg/dL (7-18) H Creatinine 2.3 MG/DL (0.55-1.30) #H 3.1 MG/DL (0.55-1.30) H Estimat Glomerular Filtration Rate 29.4 mL/min (>60) 20.8 mL/min (>60) Glucose Level 127 MG/DL (74-106) H 120 MG/DL (74-106) H Calcium Level 8.2 MG/DL (8.5-10.1) L 8.6 MG/DL (8.5-10.1) Total Bilirubin 1.0 MG/DL (0.2-1.0) 1.0 MG/DL (0.2-1.0) Aspartate Amino Transf (AST/SGOT) 155 U/L (15-37) H 160 U/L (15-37) H Alanine Aminotransferase (ALT/SGPT) 83 U/L (12-78) H 76 U/L (12-78) Alkaline Phosphatase 106 U/L (46-116) 108 U/L (46-116) Total Protein 6.8 G/DL (6.4-8.2) 6.9 G/DL (6.4-8.2) Albumin 1.5 G/DL (3.4-5.0) L 1.5 G/DL (3.4-5.0) L Globulin 5.3 g/dL 5.4 g/dL Albumin/Globulin Ratio 0.3 (1.0-2.7) L 0.3 (1.0-2.7) L Vancomycin Level Trough 30.5 ug/mL (5.0-12.0) H Triglycerides Level 164 MG/DL (30-150) H Microbiology Date/Time Source Procedure Growth Status 12/04/19 23:00 Sputum Gram Stain - Final Resulted 12/04/19 23:00 Sputum Sputum Culture Pending Resulted Height (Feet): 5 Height (Inches): 6.00 Weight (Pounds): 177 Medications Current Medications Medications (Trade) Dose Ordered Sig/[place] Route PRN Reason Start Time Stop Time Status Last Admin Dose Admin Acetaminophen (Tylenol) 650 mg Q4H PRN RECTAL Mild Pain (Pain Scale 1-3) 12/04/19 11:45 01/03/20 11:44 12/05/19 08:55 Acetaminophen (Tylenol) 650 mg Q6H PRN ORAL Temp >100.5 11/29/19 21:00 12/29/19 20:59 12/04/19 08:52 Dextrose (Dextrose 50%) 25 ml Q30M PRN IV Hypoglycemia 11/29/19 14:15 02/27/20 14:14 Dextrose (Dextrose 50%) 50 ml Q30M PRN IV Hypoglycemia 11/29/19 14:15 02/27/20 14:14 Fentanyl Citrate 1000 mcg/Sodium Chloride 100 ml @ 0 mls/hr Q24H IV 12/05/19 12:15 12/12/19 12:14 UNV Heparin Sodium (Porcine) (Heparin 5000 units/ml) 5,000 units EVERY 8 HOURS SUBQ 11/30/19 14:00 01/14/20 13:59 12/05/19 05:56 Heparin Sodium/ Sodium Chloride (Heparin 1000 units/500ml Premix) 1,000 unit ONCE ONCE IV 12/05/19 12:15 12/05/19 12:16 UNV Hydralazine HCl (Apresoline) 10 mg Q4H PRN IV For High Blood Pressure 11/29/19 15:15 02/27/20 15:14 Norepinephrine Bitartrate 4 mg/ Dextrose 250 ml @ 0 mls/hr Q24H IV 12/05/19 12:15 01/04/20 12:14 UNV Ondansetron HCl (Zofran) 4 mg Q6H PRN IVP Nausea & Vomiting 11/29/19 14:15 12/29/19 14:14 Pantoprazole (Protonix) 40 mg DAILY IVP 11/30/19 12:15 12/30/19 12:14 12/05/19 08:33 Propofol 100 ml @ 0 mls/hr Q24H IV 12/04/19 17:15 12/06/19 17:14 12/05/19 08:35 Sodium Chloride 1,000 ml @ 100 mls/hr Q10H IV 12/05/19 10:30 01/04/20 10:29 12/05/19 12:00 Vancomycin HCl (Vanco rx to dose) 1 ea DAILY PRN MISC Per rx protocol 12/02/19 12:00 01/01/20 11:59 Vancomycin HCl 1 gm/Sodium Chloride 275 ml @ 183.708 mls/hr Q8H IVPB 12/05/19 12:00 12/10/19 11:59 12/05/19 12:00 Assessment/Plan Diagnosis [place] I: #ALBARO- concerns for developing ischemic ATN in the setting of sepsis- r/o vanco toxicity - r/o COVID nephropathy #Hyperkalemia due to renal insuffiency - exacerbated by acidosis #COID sepsis #COVID pneumonia #hypoxemic respiratary failure #HTN- now in shock - check urinalysis - check urine chem - plan to place temp HD line in the event of needing HD later today - s/p kayexalate- check bMP later today - hold IVF - concerned for volume overload in the setting of progressive oliguria - albumin 25g challenge - continue pressor support to maintain MAP > 65 - consider actemra - abx per ID- on katie- plan to switch from vanco - vent management per pulm - check BMP at 1600 Dorian Soriano M.D. Dec 05, 2019 12:12
[2019-12-05] MEDS ORDERED: Lidocaine 1% Plain 30 ml INJ PRN (12:15)
[2019-12-05] MEDS ORDERED: Heparin1,000 units/500ml Premix(Conc:2 units/ml) IV PRN (12:15)
--- NOTE | 2019-12-05 12:47 | NUR ---
NURSE NOTES: Dr Rodriguez called. Update given. Received order for to discontinue vancomycin and start Zyvox 600mg IV Q12HR. Order read back, verified, and placed.
--- NOTE | 2019-12-05 12:59 | NUR ---
NURSE NOTES: Dr Agosto inserted central line, right femoral.
--- NOTE | 2019-12-05 13:01 | NUR ---
NURSE NOTES: Dr Soriano rounded on the patient. Notified him that we were unable to place a barnes for the ordered urine collection. He reported that he would consult a urologist.
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
[2019-12-05] MEDS ORDERED: Tocilizumab 400 MG in NS 110 ML IV ONE (14:00)
--- NOTE | 2019-12-05 14:20 | Pulmonology Progress Note ---
Assessment/Plan Assessment/Plan IMPRESSION: 1. Bilateral pneumonia. 2. Positive COVID-19. 3. Respiratory failure. DISCUSSION: Intubated On AC 20; FiO2 100; PEEP 10; SaO2 95% Abd Xray shows mediastinal PTX Continue proning Switch to Fentanyl due to high triglycerides Continue proning Too high risk for empiric bedside thoracostomy; discussed with Dr Roverto Lau prognosis I will follow carefully. Sushil Cortes M.D. Subjective ROS Limited/Unobtainable: Yes Interval Events: Intubated now; s/p proning yesterday Constitutional: Reports: fever, other - on vent now HEENT: Repors: no symptoms Respiratory: Reports: no symptoms Cardiovascular: Reports: no symptoms Gastrointestinal/Abdominal: Denies: nausea, vomiting Genitourinary: Reports: no symptoms Psychiatric: Reports: other - NA Skin: Denies: rash Musculoskeletal: Reports: other - NA Allergies: Coded Allergies: No Known Allergies (Unverified , 11/29/19) Objective Last 24 Hour Vital Signs Date Time Temp Pulse Resp B/P (MAP) Pulse Ox O2 Delivery O2 Flow Rate FiO2 12/05/19 13:55 40 Mechanical Ventilator 100 12/05/19 13:54 116/79 12/05/19 13:00 129 23 90/57 (68) 100 12/05/19 12:00 98.7 131 33 83/55 (64) 100 12/05/19 12:00 132 12/05/19 11:30 129 32 95/56 (69) 100 12/05/19 11:10 129 32 100 12/05/19 11:00 129 31 113/73 (86) 100 12/05/19 10:30 134 38 110/62 (78) 99 12/05/19 10:00 135 38 114/64 (81) 99 12/05/19 09:30 135 39 130/71 (90) 98 12/05/19 09:25 98.7 12/05/19 09:00 137 39 115/73 (87) 98 12/05/19 08:35 35 121/70 Mechanical Ventilator 100 12/05/19 08:30 135 39 116/68 (84) 98 12/05/19 08:00 135 12/05/19 08:00 135 39 125/66 (85) 98 12/05/19 08:00 100.5 12/05/19 07:30 134 39 100 12/05/19 07:30 134 39 128/69 (88) 98 12/05/19 07:00 133 38 124/71 (88) 98 12/05/19 06:43 36 124/74 Mechanical Ventilator 100 12/05/19 06:00 132 39 127/72 (90) 98 12/05/19 05:43 40 126/75 Mechanical Ventilator 40 12/05/19 05:30 129 40 121/75 (90) 97 12/05/19 05:00 129 39 122/68 (86) 97 12/05/19 04:43 39 120/73 Mechanical Ventilator 100 12/05/19 04:30 128 39 117/75 (89) 98 12/05/19 04:00 100 12/05/19 04:00 Mechanical Ventilator 12/05/19 04:00 100.0 126 25 109/75 (86) 100 12/05/19 03:48 131 36 100 12/05/19 03:43 34 111/71 Mechanical Ventilator 100 12/05/19 03:40 36 111/71 Mechanical Ventilator 100 12/05/19 03:30 130 41 118/79 (92) 100 12/05/19 03:24 130 12/05/19 03:00 132 33 121/72 (88) 100 12/05/19 02:40 38 119/68 Mechanical Ventilator 100 12/05/19 02:30 131 33 98/73 (81) 100 12/05/19 02:00 132 32 97/70 (79) 100 12/05/19 01:40 33 116/70 Mechanical Ventilator 100 12/05/19 01:30 133 33 98/67 (77) 100 12/05/19 01:00 134 40 109/71 (84) 100 12/05/19 00:40 38 104/70 Mechanical Ventilator 100 12/05/19 00:30 135 35 110/68 (82) 100 12/05/19 00:00 99.8 137 34 98/61 (73) 99 12/05/19 00:00 Mechanical Ventilator 12/04/19 23:40 37 99/64 Mechanical Ventilator 100 12/04/19 23:30 136 34 97/64 (75) 99 12/04/19 23:25 137 30 100 12/04/19 23:22 136 12/04/19 23:15 137 45 96/66 (76) 99 12/04/19 23:00 137 46 97/62 (74) 98 12/04/19 22:45 136 39 95/62 (73) 98 12/04/19 22:40 24 86/57 Mechanical Ventilator 100 12/04/19 22:30 140 44 85/63 (70) 100 12/04/19 22:15 142 39 83/59 (67) 100 12/04/19 22:00 38 90/54 Mechanical Ventilator 100 12/04/19 22:00 142 34 77/51 (60) 99 12/04/19 21:45 145 47 72/55 (61) 97 12/04/19 21:30 151 33 107/59 (75) 96 12/04/19 21:25 144 33 85/59 (68) 96 12/04/19 21:22 144 31 72/55 (61) 96 12/04/19 21:20 144 33 74/51 (59) 95 12/04/19 21:19 144 34 80/50 (60) 94 12/04/19 21:17 144 36 77/54 (62) 94 12/04/19 21:16 144 33 94 Mechanical Ventilator 100 12/04/19 21:15 144 44 94/74 (81) 93 12/04/19 21:14 144 33 100 12/04/19 21:10 147 21 85/43 (57) 89 12/04/19 21:00 150 31 79/55 (63) 89 12/04/19 21:00 35 79/55 Mechanical Ventilator 100 12/04/19 20:55 151 36 99/56 (70) 88 12/04/19 20:50 151 37 101/47 (65) 89 12/04/19 20:45 151 39 93/66 (75) 88 12/04/19 20:40 151 36 103/58 (73) 88 12/04/19 20:35 151 40 90/49 (63) 90 12/04/19 20:30 151 40 95/61 (72) 89 12/04/19 20:25 152 40 85/49 (61) 89 12/04/19 20:20 152 40 87/48 (61) 89 12/04/19 20:15 152 39 96/51 (66) 88 12/04/19 20:10 153 40 96/44 (61) 89 12/04/19 20:05 154 40 85/60 (68) 88 12/04/19 20:00 100.8 154 40 84/64 (71) 88 12/04/19 20:00 100 12/04/19 20:00 40 85/60 Mechanical Ventilator 100 12/04/19 20:00 Mechanical Ventilator 12/04/19 19:35 155 12/04/19 19:00 39 91/52 Mechanical Ventilator 100 12/04/19 19:00 155 39 98/56 (70) 77 12/04/19 18:45 39 91/52 Mechanical Ventilator 100 12/04/19 18:30 39 107/55 Mechanical Ventilator 100 12/04/19 18:15 38 107/55 Mechanical Ventilator 100 12/04/19 18:00 150 41 89/53 (65) 57 12/04/19 18:00 40 94/54 Mechanical Ventilator 100 12/04/19 17:45 40 94/54 Mechanical Ventilator 100 12/04/19 17:25 40 91/57 Mechanical Ventilator 100 12/04/19 17:00 99.5 149 32 93/69 (77) 56 12/04/19 17:00 149 32 93/69 (77) 56 12/04/19 16:32 100 12/04/19 16:00 101.4 171 32 132/79 (96) 92 12/04/19 16:00 159 20 100 12/04/19 16:00 Mechanical Ventilator 12/04/19 16:00 171 32 132/79 (96) 92 12/04/19 16:00 169 12/04/19 15:33 140 50 80 100 12/04/19 15:00 160 52 174/101 (125) 77 Intake and Output 12/04/19 12/05/19 19:00 07:00 Intake Total 628.20763 ml 798.214 ml Output Total 400 ml 300 ml Balance 228.78940 ml 498.214 ml IV Total 628.71793 ml 798.214 ml Output Urine Total 400 ml 300 ml General Appearance: other - on vent, low sats noted HEENT: normocephalic, atraumatic Respiratory/Chest: chest wall non-tender, lungs clear Cardiovascular: normal peripheral pulses, normal rate Abdomen: normal bowel sounds, soft, non tender, no organomegaly, non distended Genitourinary: other - + barnes Extremities: no cyanosis Skin: no rash Neurologic/Psychiatric: other - weak, sedated Lymphatic: no neck adenopathy Musculoskeletal: no effusion Microbiology Date/Time Source Procedure Growth Status 12/04/19 23:00 Sputum Gram Stain - Final Resulted 12/04/19 23:00 Sputum Sputum Culture Pending Resulted Laboratory Tests 12/04/19 14:57: Arterial Blood pH 7.376, Arterial Blood Partial Pressure CO2 39.2, Arterial Blood Partial Pressure O2 41.3*L, Arterial Blood HCO3 22.5, Arterial Blood Oxygen Saturation 74.8*L, Arterial Blood Base Excess -2.4L, Melecio Test Positive 12/04/19 17:30: Arterial Blood pH 7.039*L, Arterial Blood Partial Pressure CO2 78.0*H, Arterial Blood Partial Pressure O2 43.4*L, Arterial Blood HCO3 20.6L, Arterial Blood Oxygen Saturation 57.9*L, Arterial Blood Base Excess -11.5*L, Melecio Test Positive 12/04/19 23:00: Urine Color Yellow, Urine Appearance Cloudy, Urine pH 6, Urine Specific [place] 1.025, Urine Protein 2+H, Urine Glucose (UA) Negative, Urine Ketones 3+H, Urine Blood 5+H, Urine Nitrite Negative, Urine Bilirubin Negative, Urine Urobilinogen 4H, Urine Leukocyte Esterase 1+H, Urine RBC 20-30H, Urine WBC 2-4, Urine Squamous Epithelial Cells Few, Urine Amorphous Sediment ManyH, Urine Bacteria ModerateH, Urine Coarse Granular Casts 2-4H 12/05/19 04:00: White Blood Count 34.3*H, Red Blood Count 4.24L, Hemoglobin 12.9L, Hematocrit 38.3L, Mean Corpuscular Volume 90, Mean Corpuscular Hemoglobin 30.4, Mean Corpuscular Hemoglobin Concent 33.7, Red Cell Distribution Width 12.1, Platelet Count 490H, Mean Platelet Volume 6.7, Neutrophils (%) (Auto) , Lymphocytes (%) ( Auto) , Monocytes (%) (Auto) , Eosinophils (%) (Auto) , Basophils (%) (Auto) , Differential Total Cells Counted 100, Neutrophils % (Manual) 93H, Lymphocytes % (Manual) 3L, Monocytes % (Manual) 2, Eosinophils % (Manual) 0, Basophils % ( Manual) 0, Band Neutrophils 2, Platelet Estimate Adequate, Platelet Morphology Normal, Polychromasia 1+, Sodium Level 147H, Potassium Level 5.2H, Chloride Level 111H, Carbon Dioxide Level 23, Anion Gap 13, Blood Urea Nitrogen 36H, Creatinine 2.3#H, Estimat Glomerular Filtration Rate 29.4, Glucose Level 127H, Calcium Level 8.2L, Total Bilirubin 1.0, Aspartate Amino Transf (AST/SGOT) 155H , Alanine Aminotransferase (ALT/SGPT) 83H, Alkaline Phosphatase 106, Total Protein 6.8, Albumin 1.5L, Globulin 5.3, Albumin/Globulin Ratio 0.3L, Vancomycin Level Trough 30.5H 12/05/19 09:40: Sodium Level 145, Potassium Level 5.5H, Chloride Level 110H, Carbon Dioxide Level 22, Anion Gap 13, Blood Urea Nitrogen 47H, Creatinine 3.1H, Estimat Glomerular Filtration Rate 20.8, Glucose Level 120H, Calcium Level 8.6, Total Bilirubin 1.0, Aspartate Amino Transf (AST/SGOT) 160H, Alanine Aminotransferase (ALT/SGPT) 76, Alkaline Phosphatase 108, Total Protein 6.9, Albumin 1.5L, Globulin 5.4, Albumin/Globulin Ratio 0.3L, Triglycerides Level 164H Current Medications Medications (Trade) Dose Ordered Sig/Vicki Route PRN Reason Start Time Stop Time Status Last Admin Dose Admin Acetaminophen (Tylenol) 650 mg Q4H PRN RECTAL Mild Pain (Pain Scale 1-3) 12/04/19 11:45 01/03/20 11:44 12/05/19 08:55 Acetaminophen (Tylenol) 650 mg Q6H PRN ORAL Temp >100.5 11/29/19 21:00 12/29/19 20:59 12/04/19 08:52 Chlorhexidine Gluconate (Arely-Hex 2%) 1 applic DAILY@1999 TOPIC 12/05/19 20:00 03/04/20 19:59 Dextrose (Dextrose 50%) 25 ml Q30M PRN IV Hypoglycemia 11/29/19 14:15 02/27/20 14:14 Dextrose (Dextrose 50%) 50 ml Q30M PRN IV Hypoglycemia 11/29/19 14:15 02/27/20 14:14 Fentanyl Citrate 1000 mcg/Sodium Chloride 100 ml @ 0 mls/hr Q24H IV 12/05/19 12:15 12/12/19 12:14 12/05/19 13:55 Heparin Sodium (Porcine) (Heparin 5000 units/ml) 5,000 units EVERY 8 HOURS SUBQ 11/30/19 14:00 01/14/20 13:59 12/05/19 13:57 Heparin Sodium/ Sodium Chloride (Heparin 1000 units/500ml Premix) 1,000 unit ONCE PRN IV picc placement 12/05/19 12:15 12/07/19 12:14 Hydralazine HCl (Apresoline) 10 mg Q4H PRN IV For High Blood Pressure 11/29/19 15:15 02/27/20 15:14 Lidocaine HCl (Xylocaine 1% 30ml) 30 ml ONCE PRN INJ picc line placement 12/05/19 12:15 12/07/19 12:14 Linezolid 300 ml @ 300 mls/hr Q12HR IVPB 12/05/19 21:00 12/12/19 20:59 Meropenem 500 mg/ Sodium Chloride 55 ml @ 110 mls/hr EVERY 12 HOURS IVPB 12/05/19 21:00 12/10/19 20:59 Norepinephrine Bitartrate 4 mg/ Dextrose 250 ml @ 0 mls/hr Q24H IV 12/05/19 12:15 01/04/20 12:14 12/05/19 13:54 Ondansetron HCl (Zofran) 4 mg Q6H PRN IVP Nausea & Vomiting 11/29/19 14:15 12/29/19 14:14 Pantoprazole (Protonix) 40 mg DAILY IVP 11/30/19 12:15 12/30/19 12:14 12/05/19 08:33 Tocilizumab 400 mg/Sodium Chloride 130 ml @ 130 mls/hr ONCE ONCE IV 12/05/19 14:00 12/05/19 14:59 12/05/19 13:54 Sushil Cortes MD Dec 05, 2019 14:20
--- NOTE | 2019-12-05 15:14 | NUR ---
CASE MANAGEMENT: REVIEW 12/05/2019 SI:Bilateral pneumonia. Positive COVID-19. VS: T 98.7 HR 131 RR 33 B/P 83/55 SATS 100% ON MECH VENT FIO2 100 LABS: WBC 34.3 K 5.5 CL 110 BUN 47 CR 3.1 GLU 120 AST 160 IS:MEROPENEM IV Q12H LINEZOLID IV Q12H LEVOPHED PER PARAMETERS FENTANYL PER PARAMETERS ICU
--- NOTE | 2019-12-05 15:47 | Consultation ---
History of Present Illness General Date patient seen: Dec 05, 2019 Chief Complaint: Dyspnea/Respdistress Present Illness HPI This is a 51-year-old male with multiple medical comorbidities who presents [facility] respiratory distress intubated in ICU COVID positive ill- appearing deteriorating currently on vent support requiring pressors. Worsening renal function multiorgan system failure potentially requiring dialysis soon as discussed with tunnel inspector. Surgery called to evaluate and assist with care. Chest x-ray noted mediastinum pneumo noted. Patient evaluated bedside. Line placed. Patient unable to provide any history. Care discussed with nursing staff and patient's medical team. Allergies: Coded Allergies: No Known Allergies (Unverified , 11/29/19) Patient History Limited by: medical condition History Provided By: Medical Record, PMD Healthcare decision maker N Resuscitation status Full Code Advanced Directive on File Past Medical/Surgical History Past Medical/Surgical History: (1) Hypotension (2) Encounter for central line placement (3) Respiratory distress (4) Pneumonia (5) Suspected COVID-19 virus infection (6) HTN (hypertension) Review of Systems ROS Narrative Cannot obtain from patient given current medical condition Physical Exam General Appearance: moderate distress Lines, tubes and drains: peripheral HEENT: other Neck: normal alignment Respiratory/Chest: respiratory distress, decreased breath sounds, on vent Cardiovascular/Chest: tachycardia Abdomen: soft, no organomegaly, no mass Extremities: normal inspection, normal capillary refill, non-pitting Skin Exam: warm/dry Neurologic: unresponsiveness Last 24 Hour Vital Signs Date Time Temp Pulse Resp B/P (MAP) Pulse Ox O2 Delivery O2 Flow Rate FiO2 12/05/19 15:00 130 23 120/74 (89) 100 12/05/19 14:00 130 23 124/73 (90) 100 12/05/19 13:55 40 Mechanical Ventilator 100 12/05/19 13:54 116/79 12/05/19 13:00 129 23 90/57 (68) 100 12/05/19 12:47 130 33 100 12/05/19 12:00 98.7 131 33 83/55 (64) 100 12/05/19 12:00 100 12/05/19 12:00 Mechanical Ventilator 12/05/19 12:00 132 12/05/19 11:30 129 32 95/56 (69) 100 12/05/19 11:10 129 32 100 12/05/19 11:00 129 31 113/73 (86) 100 12/05/19 10:30 134 38 110/62 (78) 99 12/05/19 10:00 135 38 114/64 (81) 99 12/05/19 09:30 135 39 130/71 (90) 98 12/05/19 09:25 98.7 12/05/19 09:00 137 39 115/73 (87) 98 12/05/19 08:35 35 121/70 Mechanical Ventilator 100 12/05/19 08:30 135 39 116/68 (84) 98 12/05/19 08:00 Mechanical Ventilator 12/05/19 08:00 100 12/05/19 08:00 135 12/05/19 08:00 135 39 125/66 (85) 98 12/05/19 08:00 100.5 12/05/19 07:30 134 39 100 12/05/19 07:30 134 39 128/69 (88) 98 12/05/19 07:00 133 38 124/71 (88) 98 12/05/19 06:43 36 124/74 Mechanical Ventilator 100 12/05/19 06:00 132 39 127/72 (90) 98 12/05/19 05:43 40 126/75 Mechanical Ventilator 40 12/05/19 05:30 129 40 121/75 (90) 97 12/05/19 05:00 129 39 122/68 (86) 97 12/05/19 04:43 39 120/73 Mechanical Ventilator 100 12/05/19 04:30 128 39 117/75 (89) 98 12/05/19 04:00 100 12/05/19 04:00 Mechanical Ventilator 12/05/19 04:00 100.0 126 25 109/75 (86) 100 12/05/19 03:48 131 36 100 12/05/19 03:43 34 111/71 Mechanical Ventilator 100 12/05/19 03:40 36 111/71 Mechanical Ventilator 100 12/05/19 03:30 130 41 118/79 (92) 100 12/05/19 03:24 130 12/05/19 03:00 132 33 121/72 (88) 100 12/05/19 02:40 38 119/68 Mechanical Ventilator 100 12/05/19 02:30 131 33 98/73 (81) 100 12/05/19 02:00 132 32 97/70 (79) 100 12/05/19 01:40 33 116/70 Mechanical Ventilator 100 12/05/19 01:30 133 33 98/67 (77) 100 12/05/19 01:00 134 40 109/71 (84) 100 12/05/19 00:40 38 104/70 Mechanical Ventilator 100 12/05/19 00:30 135 35 110/68 (82) 100 12/05/19 00:00 99.8 137 34 98/61 (73) 99 12/05/19 00:00 Mechanical Ventilator 12/04/19 23:40 37 99/64 Mechanical Ventilator 100 12/04/19 23:30 136 34 97/64 (75) 99 12/04/19 23:25 137 30 100 12/04/19 23:22 136 12/04/19 23:15 137 45 96/66 (76) 99 12/04/19 23:00 137 46 97/62 (74) 98 12/04/19 22:45 136 39 95/62 (73) 98 12/04/19 22:40 24 86/57 Mechanical Ventilator 100 12/04/19 22:30 140 44 85/63 (70) 100 12/04/19 22:15 142 39 83/59 (67) 100 12/04/19 22:00 38 90/54 Mechanical Ventilator 100 12/04/19 22:00 142 34 77/51 (60) 99 12/04/19 21:45 145 47 72/55 (61) 97 12/04/19 21:30 151 33 107/59 (75) 96 12/04/19 21:25 144 33 85/59 (68) 96 12/04/19 21:22 144 31 72/55 (61) 96 12/04/19 21:20 144 33 74/51 (59) 95 12/04/19 21:19 144 34 80/50 (60) 94 12/04/19 21:17 144 36 77/54 (62) 94 12/04/19 21:16 144 33 94 Mechanical Ventilator 100 12/04/19 21:15 144 44 94/74 (81) 93 12/04/19 21:14 144 33 100 12/04/19 21:10 147 21 85/43 (57) 89 12/04/19 21:00 150 31 79/55 (63) 89 12/04/19 21:00 35 79/55 Mechanical Ventilator 100 12/04/19 20:55 151 36 99/56 (70) 88 12/04/19 20:50 151 37 101/47 (65) 89 12/04/19 20:45 151 39 93/66 (75) 88 12/04/19 20:40 151 36 103/58 (73) 88 12/04/19 20:35 151 40 90/49 (63) 90 12/04/19 20:30 151 40 95/61 (72) 89 12/04/19 20:25 152 40 85/49 (61) 89 12/04/19 20:20 152 40 87/48 (61) 89 12/04/19 20:15 152 39 96/51 (66) 88 12/04/19 20:10 153 40 96/44 (61) 89 12/04/19 20:05 154 40 85/60 (68) 88 12/04/19 20:00 100.8 154 40 84/64 (71) 88 12/04/19 20:00 100 12/04/19 20:00 40 85/60 Mechanical Ventilator 100 12/04/19 20:00 Mechanical Ventilator 12/04/19 19:35 155 12/04/19 19:00 39 91/52 Mechanical Ventilator 100 12/04/19 19:00 155 39 98/56 (70) 77 12/04/19 18:45 39 91/52 Mechanical Ventilator 100 12/04/19 18:30 39 107/55 Mechanical Ventilator 100 12/04/19 18:15 38 107/55 Mechanical Ventilator 100 12/04/19 18:00 150 41 89/53 (65) 57 12/04/19 18:00 40 94/54 Mechanical Ventilator 100 12/04/19 17:45 40 94/54 Mechanical Ventilator 100 12/04/19 17:25 40 91/57 Mechanical Ventilator 100 12/04/19 17:00 99.5 149 32 93/69 (77) 56 12/04/19 17:00 149 32 93/69 (77) 56 12/04/19 16:32 100 12/04/19 16:00 101.4 171 32 132/79 (96) 92 12/04/19 16:00 159 20 100 12/04/19 16:00 Mechanical Ventilator 12/04/19 16:00 171 32 132/79 (96) 92 12/04/19 16:00 169 Intake and Output 12/04/19 12/05/19 19:00 07:00 Intake Total 628.50202 ml 798.214 ml Output Total 400 ml 300 ml Balance 228.50554 ml 498.214 ml IV Total 628.08443 ml 798.214 ml Output Urine Total 400 ml 300 ml Laboratory Tests Test 12/04/19 17:30 12/04/19 23:00 12/05/19 04:00 12/05/19 09:40 Arterial Blood pH 7.039 (7.350-7.450) Arterial Blood Partial Pressure CO2 78.0 mmHg (35.0-45.0) *H Arterial Blood Partial Pressure O2 43.4 mmHg (75.0-100.0) Arterial Blood HCO3 20.6 mmol/L (22.0-26.0) L Arterial Blood Oxygen Saturation 57.9 % (95-100) *L Arterial Blood Base Excess -11.5 (-2-2) *L Melecio Test Positive Urine Color Yellow Urine Appearance Cloudy Urine pH 6 (4.5-8.0) Urine Specific [place] 1.025 (1.005-1.035) Urine Protein 2+ (NEGATIVE) H Urine Glucose (UA) Negative (NEGATIVE) Urine Ketones 3+ (NEGATIVE) H Urine Blood 5+ (NEGATIVE) H Urine Nitrite Negative (NEGATIVE) Urine Bilirubin Negative (NEGATIVE) Urine Urobilinogen 4 MG/DL (0.0-1.0) H Urine Leukocyte Esterase 1+ (NEGATIVE) H Urine RBC 20-30 /HPF (0 - 0) H Urine WBC 2-4 /HPF (0 - 0) Urine Squamous Epithelial Cells Few /LPF (NONE/OCC) Urine Amorphous Sediment Many /LPF (NONE) H Urine Bacteria Moderate /HPF (NONE) H Urine Coarse Granular Casts 2-4 /LPF (NONE) H White Blood Count 34.3 K/UL (4.8-10.8) *H Red Blood Count 4.24 M/UL (4.70-6.10) L Hemoglobin 12.9 G/DL (14.2-18.0) L Hematocrit 38.3 % (42.0-52.0) L Mean Corpuscular Volume 90 FL (80-99) Mean Corpuscular Hemoglobin 30.4 PG (27.0-31.0) Mean Corpuscular Hemoglobin Concent 33.7 G/DL (32.0-36.0) Red Cell Distribution Width 12.1 % (11.6-14.8) Platelet Count 490 K/UL (150-450) H Mean Platelet Volume 6.7 FL (6.5-10.1) Neutrophils (%) (Auto) % (45.0-75.0) Lymphocytes (%) (Auto) % (20.0-45.0) Monocytes (%) (Auto) % (1.0-10.0) Eosinophils (%) (Auto) % (0.0-3.0) Basophils (%) (Auto) % (0.0-2.0) Differential Total Cells Counted 100 Neutrophils % (Manual) 93 % (45-75) H Lymphocytes % (Manual) 3 % (20-45) L Monocytes % (Manual) 2 % (1-10) Eosinophils % (Manual) 0 % (0-3) Basophils % (Manual) 0 % (0-2) Band Neutrophils 2 % (0-8) Platelet Estimate Adequate Platelet Morphology Normal Polychromasia 1+ Sodium Level 147 MMOL/L (136-145) H 145 MMOL/L (136-145) Potassium Level 5.2 MMOL/L (3.5-5.1) H 5.5 MMOL/L (3.5-5.1) H Chloride Level 111 MMOL/L (98-107) H 110 MMOL/L (98-107) H Carbon Dioxide Level 23 MMOL/L (21-32) 22 MMOL/L (21-32) Anion Gap 13 mmol/L (5-15) 13 mmol/L (5-15) Blood Urea Nitrogen 36 mg/dL (7-18) H 47 mg/dL (7-18) H Creatinine 2.3 MG/DL (0.55-1.30) #H 3.1 MG/DL (0.55-1.30) H Estimat Glomerular Filtration Rate 29.4 mL/min (>60) 20.8 mL/min (>60) Glucose Level 127 MG/DL (74-106) H 120 MG/DL (74-106) H Calcium Level 8.2 MG/DL (8.5-10.1) L 8.6 MG/DL (8.5-10.1) Total Bilirubin 1.0 MG/DL (0.2-1.0) 1.0 MG/DL (0.2-1.0) Aspartate Amino Transf (AST/SGOT) 155 U/L (15-37) H 160 U/L (15-37) H Alanine Aminotransferase (ALT/SGPT) 83 U/L (12-78) H 76 U/L (12-78) Alkaline Phosphatase 106 U/L (46-116) 108 U/L (46-116) Total Protein 6.8 G/DL (6.4-8.2) 6.9 G/DL (6.4-8.2) Albumin 1.5 G/DL (3.4-5.0) L 1.5 G/DL (3.4-5.0) L Globulin 5.3 g/dL 5.4 g/dL Albumin/Globulin Ratio 0.3 (1.0-2.7) L 0.3 (1.0-2.7) L Vancomycin Level Trough 30.5 ug/mL (5.0-12.0) H Troponin I 0.777 ng/mL (0.000-0.056) Triglycerides Level 164 MG/DL (30-150) H Microbiology Date/Time Source Procedure Growth Status 12/04/19 23:00 Sputum Gram Stain - Final Resulted 12/04/19 23:00 Sputum Sputum Culture Pending Resulted Height (Feet): 5 Height (Inches): 6.00 Weight (Pounds): 177 Medications Current Medications Medications (Trade) Dose Ordered Sig/Vicki Route PRN Reason Start Time Stop Time Status Last Admin Dose Admin Acetaminophen (Tylenol) 650 mg Q4H PRN RECTAL Mild Pain (Pain Scale 1-3) 12/04/19 11:45 01/03/20 11:44 12/05/19 08:55 Acetaminophen (Tylenol) 650 mg Q6H PRN ORAL Temp >100.5 11/29/19 21:00 12/29/19 20:59 12/04/19 08:52 Chlorhexidine Gluconate (Arely-Hex 2%) 1 applic DAILY@2000 TOPIC 12/05/19 20:00 03/04/20 19:59 Dextrose (Dextrose 50%) 25 ml Q30M PRN IV Hypoglycemia 11/29/19 14:15 7/16/20 14:14 Dextrose (Dextrose 50%) 50 ml Q30M PRN IV Hypoglycemia 11/29/19 14:15 02/27/20 14:14 Fentanyl Citrate 1000 mcg/Sodium Chloride 100 ml @ 0 mls/hr Q24H IV 12/05/19 12:15 12/12/19 12:14 12/05/19 13:55 Heparin Sodium (Porcine) (Heparin 5000 units/ml) 5,000 units EVERY 8 HOURS SUBQ 11/30/19 14:00 01/14/20 13:59 12/05/19 13:57 Heparin Sodium/ Sodium Chloride (Heparin 1000 units/500ml Premix) 1,000 unit ONCE PRN IV picc placement 12/05/19 12:15 12/07/19 12:14 Hydralazine HCl (Apresoline) 10 mg Q4H PRN IV For High Blood Pressure 11/29/19 15:15 02/27/20 15:14 Lidocaine HCl (Xylocaine 1% 30ml) 30 ml ONCE PRN INJ picc line placement 12/05/19 12:15 12/07/19 12:14 Linezolid 300 ml @ 300 mls/hr Q12HR IVPB 12/05/19 21:00 12/12/19 20:59 Meropenem 500 mg/ Sodium Chloride 55 ml @ 110 mls/hr EVERY 12 HOURS IVPB 12/05/19 21:00 12/10/19 20:59 Norepinephrine Bitartrate 4 mg/ Dextrose 250 ml @ 0 mls/hr Q24H IV 12/05/19 12:15 01/04/20 12:14 12/05/19 13:54 Ondansetron HCl (Zofran) 4 mg Q6H PRN IVP Nausea & Vomiting 11/29/19 14:15 12/29/19 14:14 Pantoprazole (Protonix) 40 mg DAILY IVP 11/30/19 12:15 12/30/19 12:14 12/05/19 08:33 Assessment/Plan Problem List: (1) Hypotension ICD Codes: I95.9 - Hypotension, unspecified SNOMED: 63131985 (2) Encounter for central line placement ICD Codes: Z45.2 - Encounter for adjustment and management of vascular access device SNOMED: 174583394 (3) Respiratory distress ICD Codes: R06.03 - Acute respiratory distress SNOMED: 634382740 (4) Pneumonia ICD Codes: J18.9 - Pneumonia, unspecified organism SNOMED: 904052010 (5) HTN (hypertension) ICD Codes: I10 - Essential (primary) hypertension SNOMED: 17048089 (6) COVID-19 Assessment & Plan: 51-year-old male COVID with positive septic multiorgan system failure renal insufficiency deteriorating on vent support Line placed for hemodialysis pulse access for pressors. Please see note Chest x-ray reviewed new mediastinum likely from barotrauma. Patient on ventilatory support at this time. No large pneumothorax noted. The risks of placement of a chest tube at this time given the above findings are higher than that of the benefits Would recommend IV antibiotics and follow-up monitoring. If develops worsening or pneumothorax may require chest tube placement but in the meantime to prophylactically place one order placed on given the anticipated above findings the risks are much higher than that of the benefit Patient overall prognosis guarded deteriorating we will continue to monitor and provide care thank you ICD Codes: U07.1 - COVID-19 SNOMED: 247715956 (7) Pneumomediastinum Assessment & Plan: There is an orogastric tube in place, tip projects at the level gastric fundus, proximal port projecting well beyond the expected level gastric esophageal junction. The bowel gas pattern is unremarkable. A bullet projects in the lower abdominal midline. Included lower thorax demonstrates a vertical lucency paralleling the right mediastinum. There is also a lucency outlining the cardiac apex. Subcutaneous emphysema is seen in the left chest wall. There is also gas outlining the right side of the trachea. Impression: Satisfactory orogastric intubation Unusual lucencies as described, likely indicating a pneumomediastinum Interim development of left chest wall subcutaneous emphysema see above ICD Codes: J98.2 - Interstitial emphysema SNOMED: 18914037 Eliot Agosto Dec 05, 2019 15:47
--- NOTE | 2019-12-05 15:49 | Operative Note - PDOC ---
Operative Note Operative Note Date of Operation/Procedure: Dec 05, 2019 Pre-op Diagnosis: COVID positive, sepsis, multiorgan system failure, renal insufficiency, hypotension Procedure: Right femoral temporary hemodialysis catheter placement with extra central venous port Post-op Diagnosis: same as pre-op Surgeon: Eliot Agosto MD Anesthesia: local, other Specimen: none Complications: none Condition: unstable Estimated Blood Loss: minimal Implant(s) used?: No Indications for Procedure Please see consult note Description of Procedure Patient was made comfortable at bedside in supine position is already on support. The right groin is prepped draped in the same surgical fashion. Local anesthetic was treated and antibiotics identified. The right femoral vein was cannulated on first stick using the finder needle and venous flow noted. Guidewire placed over the needle needle removed. Small skin incision made around the guidewire and dilators were used. A 13 Icelandic temporary hemodialysis catheter with a extension third port for central venous fluid and medication filtration was placed without complication. Line was sutured in place. All ports flushed and aspirated properly. Plan for use of hemodialysis ports for hemodialysis as per recreation officer. Okay to use accessory port for pressors and meds as necessary. Will follow with recommendations. Thank you Eason participate in patient's care Eliot Agosto Dec 05, 2019 15:49
--- NOTE | 2019-12-05 16:00 | NUR ---
NURSE NOTES: Patient sedated with RASS -1. Titrating fentanyl. Current rate 80mcg/hr. Patient HR remains elevated at 127 beats per minute. Patient blood pressure 141/65 on levophed at 2mcg/min. Will stop levophed at this time. SpO2 98% and RR 35. Patient remains orally intubated with size 8 ET tube with 24cm at the lip line. Ventilator setting AC 20, tidal volume 500, FiO2 100%, and PEEP 10. Patient remains NPO. Right wrist 22 gauge peripheral IV and right forearm 20 gauge peripheral IV remain patent with the wrist PIV running fentanyl at 80mcg/hr and the forearm PIV running normal saline at 100mL/hr. Patient now has right femoral [place] catheter with pigtail that is patent, asymptomatic, and newly inserted. Pigtail running levophed at 2mcg/min. Bed in low position with bed alarm on and call light in reach at this time. Will continue to monitor. Skin remains intact. Patient repositioned and oral care performed.
--- NOTE | 2019-12-05 18:30 | NUR ---
NURSE NOTES: Dr Berger placed a barnes using aseptic technique. Tip of penis bleeding slightly at this time. Received order to not let anyone remove the barnes. Will place order at this time. Vital signs stable. Bed bath done at this time. Patient repositioned. Oral care performed. Will continue to monitor.
--- NOTE | 2019-12-05 19:23 | NUR ---
HAND-OFF: Report given to DARYA New.
--- NOTE | 2019-12-05 19:24 | NUR ---
NURSE NOTES: Received patient from DARYA German. Will continue plan of care.
--- NOTE | 2019-12-05 20:00 | NUR ---
NURSE NOTES: Received patient intubated. ETT 8 @ 24cm to the lipline to vent with settings of AC:20, TV:500, FiO2:100%, PEEP:10, O2 saturation: 97%. Patient is currently in supine position; will turn to prone. Newly inserted right femoral jia catheter with pigtail running Fentanyl @ 100mcg RASS -2 light sedation- opens eyes briefly. Safety measures in place. Will continue to monitor.
[2019-12-05] MEDS: Dyna-Hex 2% Top Sol 2oz TOPIC SCH (21:09)
[2019-12-05] MEDS: Meropenem 500mg in NS 55ml IVPB SCH (21:09)
--- NOTE | 2019-12-05 22:00 | NUR ---
NURSE NOTES: Patient placed onto prone position, heading facing to the right. Bed bath given, linens changed, central line dressing changed.
--- NOTE | 2019-12-05 23:00 | Consultation ---
DATE OF CONSULTATION: 12/05/2019 CONSULTING PHYSICIAN: Kai Berger MD. REFERRING PHYSICIAN: Dorian Soriano MD REASON FOR CONSULTATION: Difficult catheterization. HISTORY OF PRESENT ILLNESS: The patient is a 59-year-old male who came in with dyspnea and respiratory distress. He was found to be COVID positive. He is in the intensive care unit on a ventilator. He was noted to have acute kidney injury. The nursing staff were not able to insert Joe catheter. Urology evaluation requested. PAST MEDICAL HISTORY: As above. MEDICATIONS: Current medication list was reviewed. ALLERGIES: No drug allergies. PHYSICAL EXAMINATION: GENERAL: The patient is on vent. He appears to have phimosis. LABORATORY AND DIAGNOSTIC DATA: Laboratory studies were reviewed. His creatinine was normal two days ago. His last creatinine today is 3.1. White count is 34.3. UA from yesterday showed 20 to 30 rbc's, 2+ protein, 2 to 4 white cells. There is no urine culture. Diagnostic imaging studies were reviewed. I do not see any renal imaging. There was an abdominal plain x-ray which was noted. IMPRESSION: 1. Phimosis. 2. Retention. 3. Hematuria. 4. Pyuria. 5. Proteinuria. 6. Acute kidney injury. 7. Meatal stenosis. PLAN AND DISCUSSION: The patient was evaluated at bedside. I was able to stretch open phimotic foreskin. He did have some meatal stenosis, which was also dilated. I was able to pass a 16-German Joe catheter into the bladder. The bladder was relatively empty without any significant residual urine. Catheter was left to gravity drainage. His renal function will be monitored. We will also consider renal imaging studies and ultrasound. Kai Berger M.D. DR: Luisito JOB#: [id number] CC:
[2019-12-06] VITALS (107 sets, daily range): BP systolic 56–146; BP diastolic 32–88
--- NOTE | 2019-12-06 | NUR ---
NURSE NOTES: Patient became hypotensive () Levophed started at 30mcgs. Will continue to monitor.
[2019-12-06] MEDS: Acetaminophen 650 MG SUPP RECTAL PRN ×4 (01:25→19:17)
[2019-12-06] MEDS: fentaNYL Citrate 2,500 MCG in NS 200 ML IVPB SCH ×3 (02:00→23:16)
--- NOTE | 2019-12-06 02:00 | NUR ---
NURSE NOTES: Temp continues to be high. Tylenol given. Ice backs placed throughout body.
--- NOTE | 2019-12-06 04:00 | NUR ---
NURSE NOTES: Cooling measures on, safety measures on. Patient remains in prone position and O2 saturating at 100%.
[2019-12-06] MEDS: Heparin 5000 units/ml inj SUBQ SCH ×3 (05:46→23:12)
--- NOTE | 2019-12-06 06:00 | NUR ---
NURSE NOTES: Levo continues to run @ 30mcg. Current BP: 95/50. Will continue to monitor.
[2019-12-06 06:28] LABS: HEMATOCRIT 39.3 % (42.0-52.0); HEMOGLOBIN 12.3 G/DL (14.2-18.0); MEAN CORPUSCULAR VOLUME 95 FL (80-99); PLATELET COUNT 511 K/UL (150-450); RED BLOOD COUNT 4.13 M/UL (4.70-6.10); RED CELL DISTRIBUTION WIDTH 13.1 % (11.6-14.8)
[2019-12-06 07:04] LABS: ALANINE AMINOTRANSFERASE 139 U/L (12-78); ALBUMIN 1.9 G/DL (3.4-5.0); ALBUMIN/GLOBULIN RATIO 0.4 (1.0-2.7); ALKALINE PHOSPHATASE 129 U/L (46-116); ANION GAP 14 mmol/L (5-15); ASPARTATE AMINO TRANSFERASE 335 U/L (15-37); BILIRUBIN,TOTAL 1.1 MG/DL (0.2-1.0); BLOOD UREA NITROGEN 68 mg/dL (7-18); CARBON DIOXIDE 22 MMOL/L (21-32); CHLORIDE 109 MMOL/L (98-107); CREATININE 5.7 MG/DL (0.55-1.30); SODIUM 143 MMOL/L (136-145)
--- NOTE | 2019-12-06 07:18 | NUR ---
HAND-OFF: Report given to DARYA German.
--- NOTE | 2019-12-06 07:19 | NUR ---
NURSE NOTES: Received patient from DARYA New. Patient blood pressure 90/49 on levophed at 30mcg/min. Will continue to monitor and titrate as needed per protocol. Will ask MD for another medication to increase blood pressure. Patient HR 131 in sinus tachycardia. Patient sedated with RASS score -2 on fentanyl at 150mcg/hr at this time. Patient orally intubated with size 8 ET tube with 24cm at the lip line. Patient ventilator setting AC 20, tidal volume 500, FiO2 100%, and pEEP 10. Patient tolerating with RR 35, SpO2 100%. Patient has left nares, nasal gastric tube that is patent, asymptomatic, and clamped at this time. Patient has barnes for urine retention, inserted by urologist yesterday, some blood discharge noted on tip of penis. Will continue to monitor. Patient has right jia catheter with pigtail that is patent, dressing dry and intact, and running levophed and fentanyl. Patient bed in low position with bed alarm on and call light in reach at this time. Patient in prone position. WIll turn patient over into semi-fowlers position at 1000am when help is available. Oral care performed at this time.
[2019-12-06 07:27] LABS: WHITE BLOOD COUNT 35.6 K/UL (4.8-10.8)
[2019-12-06 07:28] LABS: POTASSIUM 6.6 MMOL/L (3.5-5.1)
[2019-12-06 07:31] LABS: BILIRUBIN,DIRECT 0.7 MG/DL (0.0-0.3)
--- NOTE | 2019-12-06 07:40 | NUR ---
RD ASSESSMENT & RECOMMENDATIONS SEE CARE ACTIVITY FOR COMPLETE ASSESSMENT DAILY ESTIMATED NEEDS: Needs based on Critical care 68.4kg abw 22-28 kcals/kg 9530-3016 total kcals 1.2-2 g protein/kg 82-137 g total protein 25-30 mL/kg 1164-7683 total fluid mLs NUTRITION DIAGNOSIS: Altered nutrition related lab values r/t clinical status as evidenced by elev WBC (34.3), febrile (tmax 102.9), critical ABG, now s/p intubation on pressor support. CURRENT DIET: NPO ENTERAL NUTRITION RECOMMENDATIONS: Nepro @35ml/hr x24 hrs to provide 840ml, 1512 kcal, 68g pro, 611ml free H2O - WITH HEMODYNAMIC STABILITY AND ABLE TO HAVE HOB >30 DEGREES: rec non oral feeds of Nepro. - Start @15ml/hr for 6 hrs, advance 10ml/hr q4-6 hrs to goal. - Flush per MD/ HOB over 30 degrees. 1) For trophic feeds to maintain gut integrity, rec Nepro @5-10ml/hr as able. 2) When Tolerating TF at goal of 35ml/hr, rec to add Prosource BID to better meet protein needs. Will provide additional 22g pro. ADDITIONAL RECOMMENDATIONS: 1) Feed with hemodynamic stability, now on Levo @30ml/hr 2) Rec HgA1C for eval 3) Maintain calibrated bed scale wts 4) Rec IVF while NPO
[2019-12-06] MEDS ORDERED: Calcium Gluconate 1gm/10ml vial IVP SCH ×2 (07:45→12:15)
[2019-12-06] MEDS ORDERED: Sodium Polystyrene Sulfonate 15gm Powder ORAL SCH (07:45)
[2019-12-06] MEDS ORDERED: Sodium Bicarbonate 50ml Carp IV SCH ×2 (07:45→12:15)
--- NOTE | 2019-12-06 07:48 | NUR ---
NURSE NOTES: Notified Dr Soriano via telephone call at 0730 that patient's serum potassium is critically high at 6.6. Received notification that he would place an order for dialysis and speak with the family. Will call family for consent once the doctor has spoken with them. Received call from Dr Soriano at 0748. Received notification that he had placed orders for the patient. WIll follow up. Notified him that the patient is on max dose of levophed at this time with blood pressure 91/48. Received order for vasopressin drip. Order read back, verified, and placed.
[2019-12-06 07:51] LABS: APPEARANCE,URINE CLOUDY; BILIRUBIN, URINE NEGATIVE (NEGATIVE); GLUCOSE, URINE (UA) NEGATIVE (NEGATIVE); KETONES,URINE NEGATIVE (NEGATIVE); LEUKOCYTE ESTERASE ,URINE 1+ (NEGATIVE); NITRITE,URINE NEGATIVE (NEGATIVE); PH,URINE 5 (4.5-8.0); PROTEIN,URINE 2+ (NEGATIVE); UROBILINOGEN,URINE NORMAL MG/DL (0.0-1.0)
[2019-12-06 07:54] LABS: COLOR,URINE YELLOW
--- NOTE | 2019-12-06 07:57 | General Progress Note ---
Assessment/Plan Assessment/Plan: 59-year-old male with PMH of HTN presents with acute respiratory distress. #Acute Hypoxic Respiratory Failure s/p intubation #Severe sepsis #COVID19 positive #CAP #elevated d-dimer #Fevers -Appreciate ICU level of care -s/p Intubation 12/03 -vent management per Pulm/ICU/CCM team -cont. droplet & isolation precautions -Transaminitis/d-dimer/fluctuating fevers likely reactive/ 2/2 COVID -cont. to monitor LFTs -11/25 BCx NGTD -EKG reviewed, sinus tach, HR 115, QTc 437 -trop negative x1, no CP at this time -s/p hydroxychloroquine -prone position per Pulm -Pulm following, recs appreciated -ID, Dr. Rodriguez, following: Merrem, Vanc -grave prognosis #Pneumomediastinum #Subcutaneous emphysema -seen on abd XR -pt too high risk for bedside thoracostomy -d/w general sx and pulm/ICU #ALBARO #Hypernatremia #Hyperkalemia -likely 2/2 to above, COVID -kayexalate, insulin, D5 for hyperkalemia -cont. to montior -12/04: femoral HD cath placed -d/w Nephro, Dr. Soriano, plan for HD today #Transaminitis -likely 2/2 to above -worsening -GI consulted, recs appreciated #Sinus Tachycardia 2/2 respiratory failure #HTN -hydralazine PRN -Cardio, , following: Echo after COVID negative DVT PPX: Lovenox Pt is at high risk of rapid decompensation and requires continued ICU level of care Prognosis grave/poor Time spent on encounter: 75 mins, 40 mins spent on critical care time. Critical Care Services performed include: EKG Review Hemodynamic measurement interpretation Laboratory data review and interpretation Radiology image review and interpretation ABG interpretation Reviewed Tele monitor Discussion of patient's care with ICU team, Nursing staff, ID, Nephro and Pulm. Time of note doesn't reflect time of encounter. Subjective Allergies: Coded Allergies: No Known Allergies (Unverified , 11/29/19) Subjective Follow up for acute hypoxic resp failure, COVID19 positive, s/p intubation Pt remains intubated, unable to obtain ROS due to clinical picture. Worsening kidney failure, WBC rising, LFTs increasing. Pt remains on pressors. HD cath placed yesterday, plan for HD today. Objective Last 24 Hour Vital Signs Date Time Temp Pulse Resp B/P (MAP) Pulse Ox O2 Delivery O2 Flow Rate FiO2 12/06/19 07:00 132 21 92/51 (65) 100 12/06/19 07:00 32 Mechanical Ventilator 100 12/06/19 06:45 133 21 95/49 (64) 100 12/06/19 06:30 133 21 95/50 (65) 100 12/06/19 06:18 87/45 12/06/19 06:16 100.8 12/06/19 06:15 135 21 87/45 (59) 100 12/06/19 06:00 36 Mechanical Ventilator 100 12/06/19 06:00 135 21 95/50 (65) 100 12/06/19 05:47 36 Mechanical Ventilator 100 12/06/19 05:45 135 22 99/50 (66) 100 12/06/19 05:30 136 20 96/50 (65) 100 12/06/19 05:20 136 22 100 12/06/19 05:15 136 20 96/50 (65) 100 12/06/19 05:00 36 Mechanical Ventilator 100 12/06/19 05:00 135 20 96/53 (67) 100 12/06/19 04:45 136 20 100/50 (67) 100 12/06/19 04:30 136 20 97/51 (66) 100 12/06/19 04:15 137 21 98/47 (64) 100 12/06/19 04:00 100.8 136 21 92/50 (64) 99 12/06/19 04:00 Mechanical Ventilator 12/06/19 04:00 36 Mechanical Ventilator 100 12/06/19 04:00 93/48 12/06/19 04:00 100 12/06/19 03:46 126 21 100 12/06/19 03:45 137 22 93/48 (63) 99 12/06/19 03:38 136 12/06/19 03:30 137 22 101/49 (66) 99 12/06/19 03:15 138 21 98/51 (67) 99 12/06/19 03:00 139 23 95/48 (64) 99 12/06/19 03:00 35 Mechanical Ventilator 100 12/06/19 03:00 98/51 12/06/19 02:45 139 23 103/51 (68) 99 12/06/19 02:30 140 24 102/49 (66) 99 12/06/19 02:15 140 24 103/50 (67) 98 12/06/19 02:00 141 25 105/47 (66) 97 12/06/19 02:00 35 Mechanical Ventilator 100 12/06/19 01:45 141 24 102/46 (64) 97 12/06/19 01:39 141 26 100 12/06/19 01:30 140 26 81/39 (53) 96 12/06/19 01:25 104/51 12/06/19 01:15 141 27 104/51 (68) 96 12/06/19 01:00 35 Mechanical Ventilator 100 12/06/19 01:00 143 26 106/47 (66) 96 12/06/19 00:45 143 26 108/58 (75) 96 12/06/19 00:30 143 26 108/48 (68) 96 12/06/19 00:15 143 26 104/47 (66) 96 12/06/19 00:00 102.9 142 28 104/51 (68) 96 12/06/19 00:00 Mechanical Ventilator 12/06/19 00:00 36 Mechanical Ventilator 100 12/05/19 23:54 140 12/05/19 23:45 128 21 97/42 (60) 87 12/05/19 23:40 51/27 12/05/19 23:39 64 21 52/29 (37) 90 12/05/19 23:36 62 21 100 12/05/19 23:36 62 22 48/26 (33) 90 12/05/19 23:30 64 22 49/27 (34) 89 12/05/19 23:15 58 23 91/66 (74) 77 12/05/19 23:07 79 42 111/69 (83) 68 12/05/19 23:00 128 38 76/41 (53) 62 12/05/19 23:00 46 Mechanical Ventilator 100 12/05/19 22:59 35 Mechanical Ventilator 100 12/05/19 22:47 140 51 91/50 (64) 76 12/05/19 22:15 138 33 115/63 (80) 95 12/05/19 22:00 138 33 106/57 (73) 95 12/05/19 22:00 39 Mechanical Ventilator 100 12/05/19 21:45 137 33 104/55 (71) 95 12/05/19 21:30 139 35 119/59 (79) 97 12/05/19 21:15 140 37 116/58 (77) 96 12/05/19 21:09 128 38 100 12/05/19 21:00 138 36 119/65 (83) 98 12/05/19 21:00 36 Mechanical Ventilator 100 12/05/19 20:45 138 36 117/51 (73) 97 12/05/19 20:30 137 36 121/58 (79) 97 12/05/19 20:15 136 34 121/57 (78) 96 12/05/19 20:14 136 12/05/19 20:00 100 12/05/19 20:00 Mechanical Ventilator 12/05/19 20:00 35 Mechanical Ventilator 100 12/05/19 20:00 101.9 134 35 127/56 (79) 97 12/05/19 19:51 124 41 100 12/05/19 19:45 132 34 129/66 (87) 97 12/05/19 19:30 132 35 129/65 (86) 95 12/05/19 19:15 133 36 153/67 (95) 97 12/05/19 19:00 35 Mechanical Ventilator 100 12/05/19 19:00 99.8 130 34 125/57 (79) 97 12/05/19 18:45 134 33 129/63 (85) 96 12/05/19 18:30 134 34 139/63 (88) 96 12/05/19 18:15 133 32 156/80 (105) 99 12/05/19 18:00 132 38 139/73 (95) 100 12/05/19 18:00 35 Mechanical Ventilator 100 12/05/19 18:00 156/80 12/05/19 17:45 129 36 143/71 (95) 100 12/05/19 17:30 130 36 147/62 (90) 100 12/05/19 17:15 99.6 129 31 148/70 (96) 100 12/05/19 17:00 129 37 144/79 (100) 100 12/05/19 17:00 129 36 144/65 (91) 100 12/05/19 17:00 35 Mechanical Ventilator 100 12/05/19 17:00 143/71 12/05/19 16:45 124 35 144/65 (91) 100 12/05/19 16:30 127 36 133/66 (88) 100 12/05/19 16:18 129 35 100 12/05/19 16:15 128 36 138/69 (92) 100 12/05/19 16:00 129 12/05/19 16:00 100 12/05/19 16:00 99.5 128 33 141/65 (90) 100 12/05/19 16:00 35 Mechanical Ventilator 100 12/05/19 16:00 138/69 12/05/19 16:00 Mechanical Ventilator 12/05/19 15:45 35 Mechanical Ventilator 100 12/05/19 15:45 128 34 133/69 (90) 100 12/05/19 15:30 35 Mechanical Ventilator 100 12/05/19 15:30 129 34 122/69 (86) 100 12/05/19 15:15 35 Non-Rebreather 100 12/05/19 15:15 130 37 132/71 (91) 100 12/05/19 15:00 35 Mechanical Ventilator 100 12/05/19 15:00 132/71 12/05/19 15:00 130 23 120/74 (89) 100 12/05/19 14:45 40 Mechanical Ventilator 100 12/05/19 14:30 35 Mechanical Ventilator 100 12/05/19 14:15 35 Mechanical Ventilator 100 12/05/19 14:00 130 23 124/73 (90) 100 12/05/19 13:55 40 Mechanical Ventilator 100 12/05/19 13:55 31 116/79 Mechanical Ventilator 100 12/05/19 13:54 116/79 12/05/19 13:00 129 23 90/57 (68) 100 12/05/19 13:00 29 90/57 Mechanical Ventilator 100 12/05/19 12:47 130 33 100 12/05/19 12:00 98.7 131 33 83/55 (64) 100 12/05/19 12:00 100 12/05/19 12:00 35 85/54 Mechanical Ventilator 100 12/05/19 12:00 Mechanical Ventilator 12/05/19 12:00 132 12/05/19 11:30 129 32 95/56 (69) 100 12/05/19 11:10 129 32 100 4/23/20 11:00 129 31 113/73 (86) 100 12/05/19 11:00 35 95/56 Mechanical Ventilator 100 12/05/19 10:30 134 38 110/62 (78) 99 12/05/19 10:00 135 38 114/64 (81) 99 12/05/19 10:00 41 114/73 Mechanical Ventilator 100 12/05/19 09:30 135 39 130/71 (90) 98 12/05/19 09:00 137 39 115/73 (87) 98 12/05/19 09:00 41 115/73 Mechanical Ventilator 100 12/05/19 08:35 35 121/70 Mechanical Ventilator 100 12/05/19 08:30 135 39 116/68 (84) 98 12/05/19 08:30 39 116/68 Mechanical Ventilator 100 12/05/19 08:00 Mechanical Ventilator 12/05/19 08:00 100 12/05/19 08:00 135 12/05/19 08:00 39 125/66 Mechanical Ventilator 100 12/05/19 08:00 135 39 125/66 (85) 98 12/05/19 08:00 100.5 Intake and Output 12/05/19 12/06/19 19:00 07:00 Intake Total 533.12 ml 1245.125 ml Output Total 60 ml 20 ml Balance 473.12 ml 1225.125 ml IV Total 533.12 ml 1245.125 ml Output Urine Total 60 ml 20 ml # Voids 3 # Bowel Movements 2 Laboratory Tests 12/05/19 09:40: Sodium Level 145, Potassium Level 5.5H, Chloride Level 110H, Carbon Dioxide Level 22, Anion Gap 13, Blood Urea Nitrogen 47H, Creatinine 3.1H, Estimat Glomerular Filtration Rate 20.8, Glucose Level 120H, Calcium Level 8.6, Total Bilirubin 1.0, Aspartate Amino Transf (AST/SGOT) 160H, Alanine Aminotransferase (ALT/SGPT) 76, Alkaline Phosphatase 108, Troponin I 0.777H, Total Protein 6.9, Albumin 1.5L, Globulin 5.4, Albumin/Globulin Ratio 0.3L, Triglycerides Level 164H 12/06/19 03:24: Sodium Level 143, Potassium Level 6.6*H, Chloride Level 109H, Carbon Dioxide Level 22, Anion Gap 14, Blood Urea Nitrogen 68H, Creatinine 5.7#H, Estimat Glomerular Filtration Rate 10.3, Glucose Level 178H, Calcium Level 8.0L, Total Bilirubin 1.1H, Aspartate Amino Transf (AST/SGOT) 335H, Alanine Aminotransferase (ALT/SGPT) 139H, Alkaline Phosphatase 129H, Total Protein 7.0, Albumin 1.9L, Globulin 5.1, Albumin/Globulin Ratio 0.4L, White Blood Count 35.6* H, Red Blood Count 4.13L, Hemoglobin 12.3L, Hematocrit 39.3L, Mean Corpuscular Volume 95, Mean Corpuscular Hemoglobin 29.8, Mean Corpuscular Hemoglobin Concent 31.4L, Red Cell Distribution Width 13.1, Platelet Count 511H, Mean Platelet Volume 6.4L, Neutrophils (%) (Auto) , Lymphocytes (%) (Auto) , Monocytes (%) (Auto) , Eosinophils (%) (Auto) , Basophils (%) (Auto) , Neutrophils % (Manual) [Pending], Lymphocytes % (Manual) [Pending], Platelet Estimate [Pending], Platelet Morphology [Pending], Direct Bilirubin 0.7H Height (Feet): 5 Height (Inches): 6.00 Weight (Pounds): 177 Objective General Appearance: intubated, currently in prone position, OG tube in place Cardiovascular: Sinus tach on tele Respiratory/Chest: ETT in place Abdomen: non distended Ext: no edema noted Theodore Aguayo M.D. Dec 06, 2019 07:57
--- NOTE | 2019-12-06 08:05 | NUR ---
NURSE NOTES: [facility] notified regarding STAT hemodialysis ordered for today, now.
[2019-12-06] MEDS ORDERED: Insulin Human Regular 100units/ml 3ml IV ONE (09:00)
[2019-12-06] MEDS: Vasopressin 100 UNITS in NS 95 ML IV SCH (09:03)
[2019-12-06] MEDS: Norepinephrine Bitartrate 16 MG in D5W 500ml 550 ML IV SCH ×2 (09:12→19:15)
[2019-12-06] MEDS: Pantoprazole Inj IVP SCH (09:13)
[2019-12-06] MEDS: Meropenem 500mg in NS 55ml IVPB SCH ×2 (09:13→23:13)
--- NOTE | 2019-12-06 10:45 | Urology Progress Note ---
Assessment/Plan Assessment/Plan: 1. Phimosis. 2. Retention. 3. Hematuria. 4. Pyuria. 5. Proteinuria. 6. Acute kidney injury. 7. Meatal stenosis. monitor clinically maintain barnes, placed 12/04 hand irrigate PRN monitor urine output and renal fxn consider renal imaging f/u on cx's abx as ordered Subjective Allergies: Coded Allergies: No Known Allergies (Unverified , 11/29/19) Subjective remains on vent, minimal urine output Objective Last 24 Hour Vital Signs Date Time Temp Pulse Resp B/P (MAP) Pulse Ox O2 Delivery O2 Flow Rate FiO2 12/06/19 09:12 70/33 12/06/19 09:00 122 20 100 12/06/19 07:00 132 21 92/51 (65) 100 12/06/19 07:00 32 Mechanical Ventilator 100 12/06/19 06:50 130 20 100 12/06/19 06:45 133 21 95/49 (64) 100 12/06/19 06:30 133 21 95/50 (65) 100 12/06/19 06:18 87/45 12/06/19 06:16 100.8 12/06/19 06:15 135 21 87/45 (59) 100 12/06/19 06:00 36 Mechanical Ventilator 100 12/06/19 06:00 135 21 95/50 (65) 100 12/06/19 05:47 36 Mechanical Ventilator 100 12/06/19 05:45 135 22 99/50 (66) 100 12/06/19 05:30 136 20 96/50 (65) 100 12/06/19 05:20 136 22 100 12/06/19 05:15 136 20 96/50 (65) 100 12/06/19 05:00 36 Mechanical Ventilator 100 12/06/19 05:00 135 20 96/53 (67) 100 12/06/19 04:45 136 20 100/50 (67) 100 12/06/19 04:30 136 20 97/51 (66) 100 12/06/19 04:15 137 21 98/47 (64) 100 12/06/19 04:00 100.8 136 21 92/50 (64) 99 12/06/19 04:00 Mechanical Ventilator 12/06/19 04:00 36 Mechanical Ventilator 100 12/06/19 04:00 93/48 12/06/19 04:00 100 12/06/19 03:46 126 21 100 12/06/19 03:45 137 22 93/48 (63) 99 12/06/19 03:38 136 12/06/19 03:30 137 22 101/49 (66) 99 12/06/19 03:15 138 21 98/51 (67) 99 12/06/19 03:00 139 23 95/48 (64) 99 12/06/19 03:00 35 Mechanical Ventilator 100 12/06/19 03:00 98/51 12/06/19 02:45 139 23 103/51 (68) 99 12/06/19 02:30 140 24 102/49 (66) 99 12/06/19 02:15 140 24 103/50 (67) 98 12/06/19 02:00 141 25 105/47 (66) 97 12/06/19 02:00 35 Mechanical Ventilator 100 12/06/19 01:45 141 24 102/46 (64) 97 12/06/19 01:39 141 26 100 12/06/19 01:30 140 26 81/39 (53) 96 12/06/19 01:25 104/51 12/06/19 01:15 141 27 104/51 (68) 96 12/06/19 01:00 35 Mechanical Ventilator 100 12/06/19 01:00 143 26 106/47 (66) 96 12/06/19 00:45 143 26 108/58 (75) 96 12/06/19 00:30 143 26 108/48 (68) 96 12/06/19 00:15 143 26 104/47 (66) 96 12/06/19 00:00 102.9 142 28 104/51 (68) 96 12/06/19 00:00 Mechanical Ventilator 12/06/19 00:00 36 Mechanical Ventilator 100 12/05/19 23:54 140 12/05/19 23:45 128 21 97/42 (60) 87 12/05/19 23:40 51/27 12/05/19 23:39 64 21 52/29 (37) 90 12/05/19 23:36 62 21 100 12/05/19 23:36 62 22 48/26 (33) 90 12/05/19 23:30 64 22 49/27 (34) 89 12/05/19 23:15 58 23 91/66 (74) 77 12/05/19 23:07 79 42 111/69 (83) 68 12/05/19 23:00 128 38 76/41 (53) 62 12/05/19 23:00 46 Mechanical Ventilator 100 12/05/19 22:59 35 Mechanical Ventilator 100 12/05/19 22:47 140 51 91/50 (64) 76 12/05/19 22:15 138 33 115/63 (80) 95 12/05/19 22:00 138 33 106/57 (73) 95 12/05/19 22:00 39 Mechanical Ventilator 100 12/05/19 21:45 137 33 104/55 (71) 95 12/05/19 21:30 139 35 119/59 (79) 97 12/05/19 21:15 140 37 116/58 (77) 96 12/05/19 21:09 128 38 100 12/05/19 21:00 138 36 119/65 (83) 98 12/05/19 21:00 36 Mechanical Ventilator 100 12/05/19 20:45 138 36 117/51 (73) 97 12/05/19 20:30 137 36 121/58 (79) 97 12/05/19 20:15 136 34 121/57 (78) 96 12/05/19 20:14 136 12/05/19 20:00 100 12/05/19 20:00 Mechanical Ventilator 12/05/19 20:00 35 Mechanical Ventilator 100 12/05/19 20:00 101.9 134 35 127/56 (79) 97 12/05/19 19:51 124 41 100 12/05/19 19:45 132 34 129/66 (87) 97 12/05/19 19:30 132 35 129/65 (86) 95 12/05/19 19:15 133 36 153/67 (95) 97 12/05/19 19:00 35 Mechanical Ventilator 100 12/05/19 19:00 99.8 130 34 125/57 (79) 97 12/05/19 18:45 134 33 129/63 (85) 96 12/05/19 18:30 134 34 139/63 (88) 96 12/05/19 18:15 133 32 156/80 (105) 99 12/05/19 18:00 132 38 139/73 (95) 100 12/05/19 18:00 35 Mechanical Ventilator 100 12/05/19 18:00 156/80 12/05/19 17:45 129 36 143/71 (95) 100 12/05/19 17:30 130 36 147/62 (90) 100 12/05/19 17:15 99.6 129 31 148/70 (96) 100 12/05/19 17:00 129 37 144/79 (100) 100 12/05/19 17:00 129 36 144/65 (91) 100 12/05/19 17:00 35 Mechanical Ventilator 100 12/05/19 17:00 143/71 12/05/19 16:45 124 35 144/65 (91) 100 12/05/19 16:30 127 36 133/66 (88) 100 12/05/19 16:18 129 35 100 12/05/19 16:15 128 36 138/69 (92) 100 12/05/19 16:00 129 12/05/19 16:00 100 12/05/19 16:00 99.5 128 33 141/65 (90) 100 12/05/19 16:00 35 Mechanical Ventilator 100 12/05/19 16:00 138/69 12/05/19 16:00 Mechanical Ventilator 12/05/19 15:45 35 Mechanical Ventilator 100 12/05/19 15:45 128 34 133/69 (90) 100 12/05/19 15:30 35 Mechanical Ventilator 100 12/05/19 15:30 129 34 122/69 (86) 100 12/05/19 15:15 35 Non-Rebreather 100 12/05/19 15:15 130 37 132/71 (91) 100 12/05/19 15:00 35 Mechanical Ventilator 100 12/05/19 15:00 132/71 12/05/19 15:00 130 23 120/74 (89) 100 12/05/19 14:45 40 Mechanical Ventilator 100 12/05/19 14:30 35 Mechanical Ventilator 100 12/05/19 14:15 35 Mechanical Ventilator 100 12/05/19 14:00 130 23 124/73 (90) 100 12/05/19 13:55 40 Mechanical Ventilator 100 12/05/19 13:55 31 116/79 Mechanical Ventilator 100 12/05/19 13:54 116/79 12/05/19 13:00 129 23 90/57 (68) 100 12/05/19 13:00 29 90/57 Mechanical Ventilator 100 12/05/19 12:47 130 33 100 12/05/19 12:00 98.7 131 33 83/55 (64) 100 12/05/19 12:00 100 12/05/19 12:00 35 85/54 Mechanical Ventilator 100 12/05/19 12:00 Mechanical Ventilator 12/05/19 12:00 132 12/05/19 11:30 129 32 95/56 (69) 100 12/05/19 11:10 129 32 100 12/05/19 11:00 129 31 113/73 (86) 100 12/05/19 11:00 35 95/56 Mechanical Ventilator 100 Intake and Output 12/05/19 12/06/19 19:00 07:00 Intake Total 533.12 ml 1245.125 ml Output Total 60 ml 20 ml Balance 473.12 ml 1225.125 ml IV Total 533.12 ml 1245.125 ml Output Urine Total 60 ml 20 ml # Voids 3 # Bowel Movements 2 Microbiology Date/Time Source Procedure Growth Status 12/04/19 12:46 Blood Blood Culture - Preliminary NO GROWTH AFTER 24 HOURS Resulted 12/04/19 23:00 Sputum Gram Stain - Final Resulted 12/04/19 23:00 Sputum Sputum Culture - Preliminary NO GROWTH Resulted Current Medications Medications (Trade) Dose Ordered Sig/Vicki Route PRN Reason Start Time Stop Time Status Last Admin Dose Admin Acetaminophen (Tylenol) 650 mg Q4H PRN RECTAL Mild Pain (Pain Scale 1-3) 12/04/19 11:45 01/03/20 11:44 12/06/19 10:35 Acetaminophen (Tylenol) 650 mg Q6H PRN ORAL Temp >100.5 11/29/19 21:00 12/29/19 20:59 12/04/19 08:52 Chlorhexidine Gluconate (Arely-Hex 2%) 1 applic DAILY@1999 TOPIC 12/05/19 20:00 03/04/20 19:59 12/05/19 21:09 Dextrose (Dextrose 50%) 25 ml Q30M PRN IV Hypoglycemia 11/29/19 14:15 02/27/20 14:14 Dextrose (Dextrose 50%) 50 ml Q30M PRN IV Hypoglycemia 11/29/19 14:15 02/27/20 14:14 Fentanyl Citrate 2500 mcg/Sodium Chloride 250 ml @ 0 mls/hr Q24H IVPB 12/06/19 02:00 12/13/19 01:59 12/06/19 05:47 Heparin Sodium (Porcine) (Heparin 5000 units/ml) 5,000 units EVERY 8 HOURS SUBQ 11/30/19 14:00 01/14/20 13:59 12/06/19 05:46 Heparin Sodium/ Sodium Chloride (Heparin 1000 units/500ml Premix) 1,000 unit ONCE PRN IV picc placement 12/05/19 12:15 12/07/19 12:14 Hydralazine HCl (Apresoline) 10 mg Q4H PRN IV For High Blood Pressure 11/29/19 15:15 02/27/20 15:14 Lidocaine HCl (Xylocaine 1% 30ml) 30 ml ONCE PRN INJ picc line placement 12/05/19 12:15 12/07/19 12:14 Linezolid 300 ml @ 300 mls/hr Q12HR IVPB 12/05/19 21:00 12/12/19 20:59 12/06/19 09:17 Meropenem 500 mg/ Sodium Chloride 55 ml @ 110 mls/hr EVERY 12 HOURS IVPB 12/05/19 21:00 12/10/19 20:59 12/06/19 09:13 Norepinephrine Bitartrate 16 mg/ Dextrose 566 ml @ 0 mls/hr Q24H IV 12/06/19 09:00 01/05/20 08:59 12/06/19 09:12 Ondansetron HCl (Zofran) 4 mg Q6H PRN IVP Nausea & Vomiting 11/29/19 14:15 12/29/19 14:14 Pantoprazole (Protonix) 40 mg DAILY IVP 11/30/19 12:15 12/30/19 12:14 12/06/19 09:13 Vasopressin 100 units/Sodium Chloride 100 ml @ 0 mls/hr Q24H IV 12/06/19 09:00 01/05/20 08:59 12/06/19 09:03 Laboratory Tests 12/06/19 03:24: White Blood Count 35.6*H, Red Blood Count 4.13L, Hemoglobin 12.3L, Hematocrit 39.3L, Mean Corpuscular Volume 95, Mean Corpuscular Hemoglobin 29.8, Mean Corpuscular Hemoglobin Concent 31.4L, Red Cell Distribution Width 13.1, Platelet Count 511H, Mean Platelet Volume 6.4L, Neutrophils (%) (Auto) , Lymphocytes (%) (Auto) , Monocytes (%) (Auto) , Eosinophils (%) (Auto) , Basophils (%) (Auto) , Differential Total Cells Counted 100, Neutrophils % ( Manual) 91H, Lymphocytes % (Manual) 4L, Monocytes % (Manual) 5, Eosinophils % ( Manual) 0, Basophils % (Manual) 0, Band Neutrophils 0, Platelet Estimate Adequate, Platelet Morphology Normal, Red Blood Cell Morphology Normal, Sodium Level 143, Potassium Level 6.6*H, Chloride Level 109H, Carbon Dioxide Level 22, Anion Gap 14, Blood Urea Nitrogen 68H, Creatinine 5.7#H, Estimat Glomerular Filtration Rate 10.3, Glucose Level 178H, Calcium Level 8.0L, Total Bilirubin 1.1H, Direct Bilirubin 0.7H, Aspartate Amino Transf (AST/SGOT) 335H, Alanine Aminotransferase (ALT/SGPT) 139H, Alkaline Phosphatase 129H, Total Protein 7.0, Albumin 1.9L, Globulin 5.1, Albumin/Globulin Ratio 0.4L Height (Feet): 5 Height (Inches): 6.00 Weight (Pounds): 177 Objective stable no bleeding at prepuce barnes indwelling, marge urine Kai Berger MD Dec 06, 2019 10:45
--- NOTE | 2019-12-06 11:09 | Nephrology Progress Note ---
Assessment/Plan Plan #ALBARO- concerns for developing ischemic ATN in the setting of sepsis- r/o vanco toxicity - r/o COVID nephropathy - now with likely ATN #Hyperkalemia due to renal insuffiency - exacerbated by acidosis #COID sepsis #COVID pneumonia #hypoxemic respiratary failure #HTN- now in shock - treat high k - kayexalate, insulin, D50, calcium gluconate, bicarb --> plan for slow iHD today if tolerated - GOALS of care discussion!! - hold IVF - concerned for volume overload in the setting of progressive oliguria - continue pressor support to maintain MAP > 65 - consider actemra - abx per ID- on katie- plan to switch from vanco - vent management per pulm Subjective ROS Limited/Unobtainable: Yes Subjective worsening renal failure hyperkalemia increasing pressor requirement barnes placed oliguric will attempt slow HD if he tolerates Objective Objective Last 24 Hour Vital Signs Date Time Temp Pulse Resp B/P (MAP) Pulse Ox O2 Delivery O2 Flow Rate FiO2 12/06/19 09:12 70/33 12/06/19 09:00 122 20 100 12/06/19 07:00 132 21 92/51 (65) 100 12/06/19 07:00 32 Mechanical Ventilator 100 12/06/19 06:50 130 20 100 12/06/19 06:45 133 21 95/49 (64) 100 12/06/19 06:30 133 21 95/50 (65) 100 12/06/19 06:18 87/45 12/06/19 06:16 100.8 12/06/19 06:15 135 21 87/45 (59) 100 12/06/19 06:00 36 Mechanical Ventilator 100 12/06/19 06:00 135 21 95/50 (65) 100 12/06/19 05:47 36 Mechanical Ventilator 100 12/06/19 05:45 135 22 99/50 (66) 100 12/06/19 05:30 136 20 96/50 (65) 100 12/06/19 05:20 136 22 100 12/06/19 05:15 136 20 96/50 (65) 100 12/06/19 05:00 36 Mechanical Ventilator 100 12/06/19 05:00 135 20 96/53 (67) 100 12/06/19 04:45 136 20 100/50 (67) 100 12/06/19 04:30 136 20 97/51 (66) 100 12/06/19 04:15 137 21 98/47 (64) 100 12/06/19 04:00 100.8 136 21 92/50 (64) 99 12/06/19 04:00 Mechanical Ventilator 12/06/19 04:00 36 Mechanical Ventilator 100 12/06/19 04:00 93/48 12/06/19 04:00 100 12/06/19 03:46 126 21 100 12/06/19 03:45 137 22 93/48 (63) 99 12/06/19 03:38 136 12/06/19 03:30 137 22 101/49 (66) 99 12/06/19 03:15 138 21 98/51 (67) 99 12/06/19 03:00 139 23 95/48 (64) 99 12/06/19 03:00 35 Mechanical Ventilator 100 12/06/19 03:00 98/51 12/06/19 02:45 139 23 103/51 (68) 99 12/06/19 02:30 140 24 102/49 (66) 99 12/06/19 02:15 140 24 103/50 (67) 98 12/06/19 02:00 141 25 105/47 (66) 97 12/06/19 02:00 35 Mechanical Ventilator 100 12/06/19 01:45 141 24 102/46 (64) 97 12/06/19 01:39 141 26 100 12/06/19 01:30 140 26 81/39 (53) 96 12/06/19 01:25 104/51 12/06/19 01:15 141 27 104/51 (68) 96 12/06/19 01:00 35 Mechanical Ventilator 100 12/06/19 01:00 143 26 106/47 (66) 96 12/06/19 00:45 143 26 108/58 (75) 96 12/06/19 00:30 143 26 108/48 (68) 96 12/06/19 00:15 143 26 104/47 (66) 96 12/06/19 00:00 102.9 142 28 104/51 (68) 96 12/06/19 00:00 Mechanical Ventilator 12/06/19 00:00 36 Mechanical Ventilator 100 12/05/19 23:54 140 12/05/19 23:45 128 21 97/42 (60) 87 12/05/19 23:40 51/27 12/05/19 23:39 64 21 52/29 (37) 90 12/05/19 23:36 62 21 100 12/05/19 23:36 62 22 48/26 (33) 90 12/05/19 23:30 64 22 49/27 (34) 89 12/05/19 23:15 58 23 91/66 (74) 77 12/05/19 23:07 79 42 111/69 (83) 68 12/05/19 23:00 128 38 76/41 (53) 62 12/05/19 23:00 46 Mechanical Ventilator 100 12/05/19 22:59 35 Mechanical Ventilator 100 12/05/19 22:47 140 51 91/50 (64) 76 12/05/19 22:15 138 33 115/63 (80) 95 12/05/19 22:00 138 33 106/57 (73) 95 12/05/19 22:00 39 Mechanical Ventilator 100 12/05/19 21:45 137 33 104/55 (71) 95 12/05/19 21:30 139 35 119/59 (79) 97 12/05/19 21:15 140 37 116/58 (77) 96 12/05/19 21:09 128 38 100 12/05/19 21:00 138 36 119/65 (83) 98 12/05/19 21:00 36 Mechanical Ventilator 100 12/05/19 20:45 138 36 117/51 (73) 97 12/05/19 20:30 137 36 121/58 (79) 97 12/05/19 20:15 136 34 121/57 (78) 96 12/05/19 20:14 136 12/05/19 20:00 100 12/05/19 20:00 Mechanical Ventilator 12/05/19 20:00 35 Mechanical Ventilator 100 12/05/19 20:00 101.9 134 35 127/56 (79) 97 12/05/19 19:51 124 41 100 12/05/19 19:45 132 34 129/66 (87) 97 12/05/19 19:30 132 35 129/65 (86) 95 12/05/19 19:15 133 36 153/67 (95) 97 12/05/19 19:00 35 Mechanical Ventilator 100 12/05/19 19:00 99.8 130 34 125/57 (79) 97 12/05/19 18:45 134 33 129/63 (85) 96 12/05/19 18:30 134 34 139/63 (88) 96 12/05/19 18:15 133 32 156/80 (105) 99 12/05/19 18:00 132 38 139/73 (95) 100 12/05/19 18:00 35 Mechanical Ventilator 100 12/05/19 18:00 156/80 12/05/19 17:45 129 36 143/71 (95) 100 12/05/19 17:30 130 36 147/62 (90) 100 12/05/19 17:15 99.6 129 31 148/70 (96) 100 12/05/19 17:00 129 37 144/79 (100) 100 12/05/19 17:00 129 36 144/65 (91) 100 12/05/19 17:00 35 Mechanical Ventilator 100 12/05/19 17:00 143/71 12/05/19 16:45 124 35 144/65 (91) 100 12/05/19 16:30 127 36 133/66 (88) 100 12/05/19 16:18 129 35 100 12/05/19 16:15 128 36 138/69 (92) 100 12/05/19 16:00 129 12/05/19 16:00 100 12/05/19 16:00 99.5 128 33 141/65 (90) 100 12/05/19 16:00 35 Mechanical Ventilator 100 12/05/19 16:00 138/69 12/05/19 16:00 Mechanical Ventilator 12/05/19 15:45 35 Mechanical Ventilator 100 12/05/19 15:45 128 34 133/69 (90) 100 12/05/19 15:30 35 Mechanical Ventilator 100 12/05/19 15:30 129 34 122/69 (86) 100 12/05/19 15:15 35 Non-Rebreather 100 12/05/19 15:15 130 37 132/71 (91) 100 12/05/19 15:00 35 Mechanical Ventilator 100 12/05/19 15:00 132/71 12/05/19 15:00 130 23 120/74 (89) 100 12/05/19 14:45 40 Mechanical Ventilator 100 12/05/19 14:30 35 Mechanical Ventilator 100 12/05/19 14:15 35 Mechanical Ventilator 100 12/05/19 14:00 130 23 124/73 (90) 100 12/05/19 13:55 40 Mechanical Ventilator 100 12/05/19 13:55 31 116/79 Mechanical Ventilator 100 12/05/19 13:54 116/79 12/05/19 13:00 129 23 90/57 (68) 100 12/05/19 13:00 29 90/57 Mechanical Ventilator 100 12/05/19 12:47 130 33 100 12/05/19 12:00 98.7 131 33 83/55 (64) 100 12/05/19 12:00 100 12/05/19 12:00 35 85/54 Mechanical Ventilator 100 12/05/19 12:00 Mechanical Ventilator 12/05/19 12:00 132 12/05/19 11:30 129 32 95/56 (69) 100 12/05/19 11:10 129 32 100 Intake and Output 12/05/19 12/06/19 19:00 07:00 Intake Total 533.12 ml 1245.125 ml Output Total 60 ml 20 ml Balance 473.12 ml 1225.125 ml IV Total 533.12 ml 1245.125 ml Output Urine Total 60 ml 20 ml # Voids 3 # Bowel Movements 2 Laboratory Tests 12/06/19 03:24: White Blood Count 35.6*H, Red Blood Count 4.13L, Hemoglobin 12.3L, Hematocrit 39.3L, Mean Corpuscular Volume 95, Mean Corpuscular Hemoglobin 29.8, Mean Corpuscular Hemoglobin Concent 31.4L, Red Cell Distribution Width 13.1, Platelet Count 511H, Mean Platelet Volume 6.4L, Neutrophils (%) (Auto) , Lymphocytes (%) (Auto) , Monocytes (%) (Auto) , Eosinophils (%) (Auto) , Basophils (%) (Auto) , Differential Total Cells Counted 100, Neutrophils % ( Manual) 91H, Lymphocytes % (Manual) 4L, Monocytes % (Manual) 5, Eosinophils % ( Manual) 0, Basophils % (Manual) 0, Band Neutrophils 0, Platelet Estimate Adequate, Platelet Morphology Normal, Red Blood Cell Morphology Normal, Sodium Level 143, Potassium Level 6.6*H, Chloride Level 109H, Carbon Dioxide Level 22, Anion Gap 14, Blood Urea Nitrogen 68H, Creatinine 5.7#H, Estimat Glomerular Filtration Rate 10.3, Glucose Level 178H, Calcium Level 8.0L, Total Bilirubin 1.1H, Direct Bilirubin 0.7H, Aspartate Amino Transf (AST/SGOT) 335H, Alanine Aminotransferase (ALT/SGPT) 139H, Alkaline Phosphatase 129H, Total Protein 7.0, Albumin 1.9L, Globulin 5.1, Albumin/Globulin Ratio 0.4L Height (Feet): 5 Height (Inches): 6.00 Weight (Pounds): 177 Objective General Appearance: other - intubated- proned Lines, tubes and drains: central line HEENT: normocephalic, atraumatic Respiratory/Chest: rhonchi - bilaterally Cardiovascular/Chest: other - tachycardic Extremities: pitting Dorian Soriano M.D. Dec 06, 2019 11:09
--- NOTE | 2019-12-06 12:00 | NUR ---
NURSE NOTES: Patient blood pressure 113/61 on Levophed at 30mcg/min and vasopressin at 0.04units/hr. Will continue to monitor and titrate as needed per protocol. Temperature elevated at 102.6 at this time. Tylenol given. Cooling blanket in place. Will continue to monitor. Patient HR 132 in sinus tachycardia. Patient sedated with RASS score -2 on fentanyl at 150mcg/hr at this time. Patient remains orally intubated with size 8 ET tube with 24cm at the lip line. ventilator setting AC 20, tidal volume 500, FiO2 100%, and PEEP 10. Patient tolerating with RR 35, SpO2 100%. Left nares, nasal gastric tube that is patent, asymptomatic, and clamped at this time. Joe remains in place with some bloody discharge noted on tip of penis. Will continue to monitor. Right jia catheter with pigtail remains patent, dressing dry and intact, and running levophed, vasopressin, and fentanyl. order for hemodialysis in place. [facility] dialysis notified. 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 Patient bed in low position with bed alarm on and call light in reach at this time. Oral care and repositioning performed at this time.
--- NOTE | 2019-12-06 12:04 | Pulmonology Progress Note ---
Assessment/Plan Assessment/Plan IMPRESSION: 1. Bilateral pneumonia. 2. Positive COVID-19. 3. Respiratory failure. DISCUSSION: Intubated On AC 20; FiO2 100; PEEP 10; SaO2 95% Abd Xray shows mediastinal PTX Continue proning Switch to Fentanyl due to high triglycerides Continue proning Saturations are better Too high risk for empiric bedside thoracostomy; discussed with Dr Roverto Lau prognosis I will follow carefully. Sushil Cortes M.D. Subjective ROS Limited/Unobtainable: Yes Interval Events: Intubated now; s/p proning yesterday Constitutional: Reports: fever, other - on vent now HEENT: Repors: no symptoms Respiratory: Reports: no symptoms Cardiovascular: Reports: no symptoms Gastrointestinal/Abdominal: Denies: nausea, vomiting Genitourinary: Reports: no symptoms Psychiatric: Reports: other - NA Skin: Denies: rash Musculoskeletal: Reports: other - NA Allergies: Coded Allergies: No Known Allergies (Unverified , 11/29/19) Objective Last 24 Hour Vital Signs Date Time Temp Pulse Resp B/P (MAP) Pulse Ox O2 Delivery O2 Flow Rate FiO2 12/06/19 11:05 103.3 12/06/19 09:35 139 22 99/54 (69) 100 12/06/19 09:30 139 23 105/55 (72) 100 12/06/19 09:25 129 21 109/60 (76) 100 12/06/19 09:20 128 23 81/46 (58) 100 12/06/19 09:18 128 22 81/39 (53) 100 12/06/19 09:15 128 22 79/34 (49) 100 12/06/19 09:14 128 22 73/40 (51) 100 12/06/19 09:12 70/33 12/06/19 09:10 128 22 72/42 (52) 100 12/06/19 09:08 128 21 70/33 (45) 100 12/06/19 09:07 127 22 68/32 (44) 100 12/06/19 09:05 127 22 71/33 (46) 100 12/06/19 09:00 128 21 67/37 (47) 100 12/06/19 09:00 122 20 100 12/06/19 08:55 128 21 56/34 (41) 100 12/06/19 08:45 129 21 59/35 (43) 100 12/06/19 08:30 130 21 94/46 (62) 100 12/06/19 08:15 130 23 92/50 (64) 100 12/06/19 08:00 Mechanical Ventilator 12/06/19 08:00 104.2 131 22 90/49 (63) 100 12/06/19 07:45 131 22 91/48 (62) 100 12/06/19 07:30 131 21 93/52 (66) 100 12/06/19 07:15 132 21 95/48 (64) 100 12/06/19 07:00 132 21 92/51 (65) 100 12/06/19 07:00 32 Mechanical Ventilator 100 12/06/19 06:50 130 20 100 12/06/19 06:45 133 21 95/49 (64) 100 12/06/19 06:30 133 21 95/50 (65) 100 12/06/19 06:18 87/45 12/06/19 06:15 135 21 87/45 (59) 100 12/06/19 06:00 36 Mechanical Ventilator 100 12/06/19 06:00 135 21 95/50 (65) 100 12/06/19 05:47 36 Mechanical Ventilator 100 12/06/19 05:45 135 22 99/50 (66) 100 12/06/19 05:30 136 20 96/50 (65) 100 12/06/19 05:20 136 22 100 12/06/19 05:15 136 20 96/50 (65) 100 12/06/19 05:00 36 Mechanical Ventilator 100 12/06/19 05:00 135 20 96/53 (67) 100 12/06/19 04:45 136 20 100/50 (67) 100 12/06/19 04:30 136 20 97/51 (66) 100 12/06/19 04:15 137 21 98/47 (64) 100 12/06/19 04:00 100.8 136 21 92/50 (64) 99 12/06/19 04:00 Mechanical Ventilator 12/06/19 04:00 36 Mechanical Ventilator 100 12/06/19 04:00 93/48 12/06/19 04:00 100 12/06/19 03:46 126 21 100 12/06/19 03:45 137 22 93/48 (63) 99 12/06/19 03:38 136 12/06/19 03:30 137 22 101/49 (66) 99 12/06/19 03:15 138 21 98/51 (67) 99 12/06/19 03:00 139 23 95/48 (64) 99 12/06/19 03:00 35 Mechanical Ventilator 100 12/06/19 03:00 98/51 12/06/19 02:45 139 23 103/51 (68) 99 12/06/19 02:30 140 24 102/49 (66) 99 12/06/19 02:15 140 24 103/50 (67) 98 12/06/19 02:00 141 25 105/47 (66) 97 12/06/19 02:00 35 Mechanical Ventilator 100 12/06/19 01:45 141 24 102/46 (64) 97 12/06/19 01:39 141 26 100 12/06/19 01:30 140 26 81/39 (53) 96 12/06/19 01:25 104/51 12/06/19 01:15 141 27 104/51 (68) 96 12/06/19 01:00 35 Mechanical Ventilator 100 12/06/19 01:00 143 26 106/47 (66) 96 12/06/19 00:45 143 26 108/58 (75) 96 12/06/19 00:30 143 26 108/48 (68) 96 12/06/19 00:15 143 26 104/47 (66) 96 12/06/19 00:00 102.9 142 28 104/51 (68) 96 12/06/19 00:00 Mechanical Ventilator 12/06/19 00:00 36 Mechanical Ventilator 100 12/05/19 23:54 140 12/05/19 23:45 128 21 97/42 (60) 87 12/05/19 23:40 51/27 12/05/19 23:39 64 21 52/29 (37) 90 12/05/19 23:36 62 21 100 12/05/19 23:36 62 22 48/26 (33) 90 12/05/19 23:30 64 22 49/27 (34) 89 12/05/19 23:15 58 23 91/66 (74) 77 12/05/19 23:07 79 42 111/69 (83) 68 12/05/19 23:00 128 38 76/41 (53) 62 12/05/19 23:00 46 Mechanical Ventilator 100 12/05/19 22:59 35 Mechanical Ventilator 100 12/05/19 22:47 140 51 91/50 (64) 76 12/05/19 22:15 138 33 115/63 (80) 95 12/05/19 22:00 138 33 106/57 (73) 95 12/05/19 22:00 39 Mechanical Ventilator 100 12/05/19 21:45 137 33 104/55 (71) 95 12/05/19 21:30 139 35 119/59 (79) 97 12/05/19 21:15 140 37 116/58 (77) 96 12/05/19 21:09 128 38 100 12/05/19 21:00 138 36 119/65 (83) 98 12/05/19 21:00 36 Mechanical Ventilator 100 12/05/19 20:45 138 36 117/51 (73) 97 12/05/19 20:30 137 36 121/58 (79) 97 12/05/19 20:15 136 34 121/57 (78) 96 12/05/19 20:14 136 12/05/19 20:00 100 12/05/19 20:00 Mechanical Ventilator 12/05/19 20:00 35 Mechanical Ventilator 100 12/05/19 20:00 101.9 134 35 127/56 (79) 97 12/05/19 19:51 124 41 100 12/05/19 19:45 132 34 129/66 (87) 97 12/05/19 19:30 132 35 129/65 (86) 95 12/05/19 19:15 133 36 153/67 (95) 97 12/05/19 19:00 35 Mechanical Ventilator 100 12/05/19 19:00 99.8 130 34 125/57 (79) 97 12/05/19 18:45 134 33 129/63 (85) 96 12/05/19 18:30 134 34 139/63 (88) 96 12/05/19 18:15 133 32 156/80 (105) 99 12/05/19 18:00 132 38 139/73 (95) 100 4/23/20 18:00 35 Mechanical Ventilator 100 12/05/19 18:00 156/80 12/05/19 17:45 129 36 143/71 (95) 100 12/05/19 17:30 130 36 147/62 (90) 100 12/05/19 17:15 99.6 129 31 148/70 (96) 100 12/05/19 17:00 129 37 144/79 (100) 100 12/05/19 17:00 129 36 144/65 (91) 100 12/05/19 17:00 35 Mechanical Ventilator 100 12/05/19 17:00 143/71 12/05/19 16:45 124 35 144/65 (91) 100 12/05/19 16:30 127 36 133/66 (88) 100 12/05/19 16:18 129 35 100 12/05/19 16:15 128 36 138/69 (92) 100 12/05/19 16:00 129 12/05/19 16:00 100 12/05/19 16:00 99.5 128 33 141/65 (90) 100 12/05/19 16:00 35 Mechanical Ventilator 100 12/05/19 16:00 138/69 12/05/19 16:00 Mechanical Ventilator 12/05/19 15:45 35 Mechanical Ventilator 100 12/05/19 15:45 128 34 133/69 (90) 100 12/05/19 15:30 35 Mechanical Ventilator 100 12/05/19 15:30 129 34 122/69 (86) 100 12/05/19 15:15 35 Non-Rebreather 100 12/05/19 15:15 130 37 132/71 (91) 100 12/05/19 15:00 35 Mechanical Ventilator 100 12/05/19 15:00 132/71 12/05/19 15:00 130 23 120/74 (89) 100 12/05/19 14:45 40 Mechanical Ventilator 100 12/05/19 14:30 35 Mechanical Ventilator 100 12/05/19 14:15 35 Mechanical Ventilator 100 12/05/19 14:00 130 23 124/73 (90) 100 12/05/19 13:55 40 Mechanical Ventilator 100 12/05/19 13:55 31 116/79 Mechanical Ventilator 100 12/05/19 13:54 116/79 4/23/20 13:00 129 23 90/57 (68) 100 12/05/19 13:00 29 90/57 Mechanical Ventilator 100 12/05/19 12:47 130 33 100 Intake and Output 12/05/19 12/06/19 19:00 07:00 Intake Total 533.12 ml 1245.125 ml Output Total 60 ml 20 ml Balance 473.12 ml 1225.125 ml IV Total 533.12 ml 1245.125 ml Output Urine Total 60 ml 20 ml # Voids 3 # Bowel Movements 2 General Appearance: other - on vent, low sats noted HEENT: other Respiratory/Chest: chest wall non-tender, lungs clear Cardiovascular: normal peripheral pulses, normal rate Abdomen: normal bowel sounds, soft, non tender, no organomegaly, non distended Genitourinary: other - + barnes Extremities: no cyanosis Skin: no rash Neurologic/Psychiatric: unresponsiveness Lymphatic: no neck adenopathy Musculoskeletal: no effusion Microbiology Date/Time Source Procedure Growth Status 12/04/19 12:46 Blood Blood Culture - Preliminary NO GROWTH AFTER 24 HOURS Resulted 12/04/19 12:46 Blood Blood Culture - Preliminary NO GROWTH AFTER 24 HOURS Resulted 12/04/19 23:00 Sputum Gram Stain - Final Resulted 12/04/19 23:00 Sputum Sputum Culture - Preliminary NO GROWTH Resulted Laboratory Tests 12/06/19 03:24: White Blood Count 35.6*H, Red Blood Count 4.13L, Hemoglobin 12.3L, Hematocrit 39.3L, Mean Corpuscular Volume 95, Mean Corpuscular Hemoglobin 29.8, Mean Corpuscular Hemoglobin Concent 31.4L, Red Cell Distribution Width 13.1, Platelet Count 511H, Mean Platelet Volume 6.4L, Neutrophils (%) (Auto) , Lymphocytes (%) (Auto) , Monocytes (%) (Auto) , Eosinophils (%) (Auto) , Basophils (%) (Auto) , Differential Total Cells Counted 100, Neutrophils % ( Manual) 91H, Lymphocytes % (Manual) 4L, Monocytes % (Manual) 5, Eosinophils % ( Manual) 0, Basophils % (Manual) 0, Band Neutrophils 0, Platelet Estimate Adequate, Platelet Morphology Normal, Red Blood Cell Morphology Normal, Sodium Level 143, Potassium Level 6.6*H, Chloride Level 109H, Carbon Dioxide Level 22, Anion Gap 14, Blood Urea Nitrogen 68H, Creatinine 5.7#H, Estimat Glomerular Filtration Rate 10.3, Glucose Level 178H, Calcium Level 8.0L, Total Bilirubin 1.1H, Direct Bilirubin 0.7H, Aspartate Amino Transf (AST/SGOT) 335H, Alanine Aminotransferase (ALT/SGPT) 139H, Alkaline Phosphatase 129H, Total Protein 7.0, Albumin 1.9L, Globulin 5.1, Albumin/Globulin Ratio 0.4L Current Medications Medications (Trade) Dose Ordered Sig/Vicki Route PRN Reason Start Time Stop Time Status Last Admin Dose Admin Acetaminophen (Tylenol) 650 mg Q4H PRN RECTAL Mild Pain (Pain Scale 1-3) 12/04/19 11:45 01/03/20 11:44 12/06/19 10:35 Acetaminophen (Tylenol) 650 mg Q6H PRN ORAL Temp >100.5 11/29/19 21:00 12/29/19 20:59 12/04/19 08:52 Chlorhexidine Gluconate (Arely-Hex 2%) 1 applic DAILY@2000 TOPIC 12/05/19 20:00 03/04/20 19:59 12/05/19 21:09 Dextrose (Dextrose 50%) 25 ml Q30M PRN IV Hypoglycemia 11/29/19 14:15 02/27/20 14:14 Dextrose (Dextrose 50%) 50 ml Q30M PRN IV Hypoglycemia 11/29/19 14:15 02/27/20 14:14 Fentanyl Citrate 2500 mcg/Sodium Chloride 250 ml @ 0 mls/hr Q24H IVPB 12/06/19 02:00 12/13/19 01:59 12/06/19 05:47 Heparin Sodium (Porcine) (Heparin 5000 units/ml) 5,000 units EVERY 8 HOURS SUBQ 11/30/19 14:00 01/14/20 13:59 12/06/19 05:46 Heparin Sodium/ Sodium Chloride (Heparin 1000 units/500ml Premix) 1,000 unit ONCE PRN IV picc placement 12/05/19 12:15 12/07/19 12:14 Hydralazine HCl (Apresoline) 10 mg Q4H PRN IV For High Blood Pressure 11/29/19 15:15 02/27/20 15:14 Lidocaine HCl (Xylocaine 1% 30ml) 30 ml ONCE PRN INJ picc line placement 12/05/19 12:15 12/07/19 12:14 Linezolid 300 ml @ 300 mls/hr Q12HR IVPB 12/05/19 21:00 12/12/19 20:59 12/06/19 09:17 Meropenem 500 mg/ Sodium Chloride 55 ml @ 110 mls/hr EVERY 12 HOURS IVPB 12/05/19 21:00 12/10/19 20:59 12/06/19 09:13 Norepinephrine Bitartrate 16 mg/ Dextrose 566 ml @ 0 mls/hr Q24H IV 12/06/19 09:00 01/05/20 08:59 12/06/19 09:12 Ondansetron HCl (Zofran) 4 mg Q6H PRN IVP Nausea & Vomiting 11/29/19 14:15 12/29/19 14:14 Pantoprazole (Protonix) 40 mg DAILY IVP 11/30/19 12:15 12/30/19 12:14 12/06/19 09:13 Vasopressin 100 units/Sodium Chloride 100 ml @ 0 mls/hr Q24H IV 12/06/19 09:00 01/05/20 08:59 12/06/19 09:03 Sushil Cortes MD Dec 06, 2019 12:04
--- NOTE | 2019-12-06 12:41 | NUR ---
NURSE NOTES: Dr Soriano rounded on the patient. Updated him on patient condition. Was notified that patient's family has been notified that the patient needs hemodialysis. Will call to obtain consent at this time. Received order for 1amp bicarbonate IVP today now and 1gm calcium gluconate IVP today now. Orders read back, verified, and placed at this time.
--- NOTE | 2019-12-06 13:28 | NUR ---
CASE MANAGEMENT: REVIEW 12/06/2019 SI:Bilateral pneumonia. Positive COVID-19. VS: T 102.6 HR 131 RR 20 B/P 113/61 SATS 100% ON MECH VENT FIO2 100 LABS: WBC 35.6 K 6.6 CL 109 BUN 68 CR 5.7 GLU 178 CA 8 TBILI 1.1 DBILI 0.7 AST 335 ALT 139 ALP 129 IS:MEROPENEM IV Q12H LINEZOLID IV Q12H LEVOPHED PER PARAMETERS FENTANYL PER PARAMETERS VASOPRESSIN IV PER PARAMETERS ICU
--- NOTE | 2019-12-06 13:41 | General Progress Note ---
Assessment/Plan Problem List: (1) Elevated LFTs ICD Codes: R79.89 - Other specified abnormal findings of blood chemistry SNOMED: 009567837, 087360721 (2) HTN (hypertension) ICD Codes: I10 - Essential (primary) hypertension SNOMED: 22447498 (3) Suspected COVID-19 virus infection ICD Codes: R68.89 - Other general symptoms and signs SNOMED: 791657886 (4) Pneumonia ICD Codes: J18.9 - Pneumonia, unspecified organism SNOMED: 651123982 (5) Respiratory distress ICD Codes: R06.03 - Acute respiratory distress SNOMED: 518741833 (6) Pneumomediastinum ICD Codes: J98.2 - Interstitial emphysema SNOMED: 19717430 (7) COVID-19 ICD Codes: U07.1 - COVID-19 SNOMED: 395236595 (8) Hypotension ICD Codes: I95.9 - Hypotension, unspecified SNOMED: 69970104 Assessment/Plan: elevated LFTS most likely due to COVID repeat labs in am hepatitis panel abd us Subjective ROS Limited/Unobtainable: No Allergies: Coded Allergies: No Known Allergies (Unverified , 11/29/19) Objective Last 24 Hour Vital Signs Date Time Temp Pulse Resp B/P (MAP) Pulse Ox O2 Delivery O2 Flow Rate FiO2 12/06/19 12:15 132 20 111/60 (77) 100 12/06/19 12:00 102.6 133 20 113/61 (78) 100 12/06/19 12:00 131 12/06/19 12:00 100 12/06/19 12:00 Mechanical Ventilator 12/06/19 11:55 133 20 113/61 (78) 100 12/06/19 11:45 133 21 114/58 (76) 100 12/06/19 11:30 134 21 111/61 (78) 100 12/06/19 11:15 130 22 100 12/06/19 11:15 134 20 114/59 (77) 100 12/06/19 11:05 103.3 12/06/19 11:00 138 22 102/67 (79) 100 12/06/19 10:45 139 22 116/57 (76) 100 12/06/19 10:30 139 21 114/60 (78) 100 12/06/19 10:15 140 21 125/75 (92) 100 12/06/19 10:05 140 21 103/55 (71) 100 12/06/19 09:45 139 23 100/53 (69) 100 12/06/19 09:35 139 22 99/54 (69) 100 12/06/19 09:30 139 23 105/55 (72) 100 12/06/19 09:25 129 21 109/60 (76) 100 12/06/19 09:20 128 23 81/46 (58) 100 12/06/19 09:18 128 22 81/39 (53) 100 12/06/19 09:15 128 22 79/34 (49) 100 12/06/19 09:14 128 22 73/40 (51) 100 12/06/19 09:12 70/33 12/06/19 09:10 128 22 72/42 (52) 100 12/06/19 09:08 128 21 70/33 (45) 100 12/06/19 09:07 127 22 68/32 (44) 100 12/06/19 09:05 127 22 71/33 (46) 100 12/06/19 09:00 128 21 67/37 (47) 100 12/06/19 09:00 122 20 100 12/06/19 08:55 128 21 56/34 (41) 100 12/06/19 08:45 129 21 59/35 (43) 100 12/06/19 08:30 130 21 94/46 (62) 100 12/06/19 08:15 130 23 92/50 (64) 100 12/06/19 08:00 100 12/06/19 08:00 Mechanical Ventilator 12/06/19 08:00 131 12/06/19 08:00 104.2 131 22 90/49 (63) 100 12/06/19 07:45 131 22 91/48 (62) 100 12/06/19 07:30 131 21 93/52 (66) 100 12/06/19 07:15 132 21 95/48 (64) 100 12/06/19 07:00 132 21 92/51 (65) 100 12/06/19 07:00 32 Mechanical Ventilator 100 12/06/19 06:50 130 20 100 12/06/19 06:45 133 21 95/49 (64) 100 12/06/19 06:30 133 21 95/50 (65) 100 12/06/19 06:18 87/45 12/06/19 06:15 135 21 87/45 (59) 100 12/06/19 06:00 36 Mechanical Ventilator 100 12/06/19 06:00 135 21 95/50 (65) 100 12/06/19 05:47 36 Mechanical Ventilator 100 12/06/19 05:45 135 22 99/50 (66) 100 12/06/19 05:30 136 20 96/50 (65) 100 12/06/19 05:20 136 22 100 12/06/19 05:15 136 20 96/50 (65) 100 12/06/19 05:00 36 Mechanical Ventilator 100 12/06/19 05:00 135 20 96/53 (67) 100 12/06/19 04:45 136 20 100/50 (67) 100 12/06/19 04:30 136 20 97/51 (66) 100 12/06/19 04:15 137 21 98/47 (64) 100 12/06/19 04:00 100.8 136 21 92/50 (64) 99 12/06/19 04:00 Mechanical Ventilator 12/06/19 04:00 36 Mechanical Ventilator 100 12/06/19 04:00 93/48 12/06/19 04:00 100 12/06/19 03:46 126 21 100 12/06/19 03:45 137 22 93/48 (63) 99 12/06/19 03:38 136 12/06/19 03:30 137 22 101/49 (66) 99 12/06/19 03:15 138 21 98/51 (67) 99 12/06/19 03:00 139 23 95/48 (64) 99 12/06/19 03:00 35 Mechanical Ventilator 100 12/06/19 03:00 98/51 12/06/19 02:45 139 23 103/51 (68) 99 12/06/19 02:30 140 24 102/49 (66) 99 12/06/19 02:15 140 24 103/50 (67) 98 12/06/19 02:00 141 25 105/47 (66) 97 12/06/19 02:00 35 Mechanical Ventilator 100 12/06/19 01:45 141 24 102/46 (64) 97 12/06/19 01:39 141 26 100 12/06/19 01:30 140 26 81/39 (53) 96 12/06/19 01:25 104/51 12/06/19 01:15 141 27 104/51 (68) 96 12/06/19 01:00 35 Mechanical Ventilator 100 12/06/19 01:00 143 26 106/47 (66) 96 12/06/19 00:45 143 26 108/58 (75) 96 12/06/19 00:30 143 26 108/48 (68) 96 12/06/19 00:15 143 26 104/47 (66) 96 12/06/19 00:00 102.9 142 28 104/51 (68) 96 12/06/19 00:00 Mechanical Ventilator 12/06/19 00:00 36 Mechanical Ventilator 100 12/05/19 23:54 140 12/05/19 23:45 128 21 97/42 (60) 87 12/05/19 23:40 51/27 12/05/19 23:39 64 21 52/29 (37) 90 12/05/19 23:36 62 21 100 12/05/19 23:36 62 22 48/26 (33) 90 12/05/19 23:30 64 22 49/27 (34) 89 12/05/19 23:15 58 23 91/66 (74) 77 12/05/19 23:07 79 42 111/69 (83) 68 12/05/19 23:00 128 38 76/41 (53) 62 12/05/19 23:00 46 Mechanical Ventilator 100 12/05/19 22:59 35 Mechanical Ventilator 100 12/05/19 22:47 140 51 91/50 (64) 76 12/05/19 22:15 138 33 115/63 (80) 95 12/05/19 22:00 138 33 106/57 (73) 95 12/05/19 22:00 39 Mechanical Ventilator 100 12/05/19 21:45 137 33 104/55 (71) 95 12/05/19 21:30 139 35 119/59 (79) 97 12/05/19 21:15 140 37 116/58 (77) 96 12/05/19 21:09 128 38 100 12/05/19 21:00 138 36 119/65 (83) 98 12/05/19 21:00 36 Mechanical Ventilator 100 12/05/19 20:45 138 36 117/51 (73) 97 12/05/19 20:30 137 36 121/58 (79) 97 12/05/19 20:15 136 34 121/57 (78) 96 12/05/19 20:14 136 12/05/19 20:00 100 12/05/19 20:00 Mechanical Ventilator 12/05/19 20:00 35 Mechanical Ventilator 100 12/05/19 20:00 101.9 134 35 127/56 (79) 97 12/05/19 19:51 124 41 100 12/05/19 19:45 132 34 129/66 (87) 97 12/05/19 19:30 132 35 129/65 (86) 95 12/05/19 19:15 133 36 153/67 (95) 97 12/05/19 19:00 35 Mechanical Ventilator 100 12/05/19 19:00 99.8 130 34 125/57 (79) 97 12/05/19 18:45 134 33 129/63 (85) 96 12/05/19 18:30 134 34 139/63 (88) 96 12/05/19 18:15 133 32 156/80 (105) 99 12/05/19 18:00 132 38 139/73 (95) 100 12/05/19 18:00 35 Mechanical Ventilator 100 12/05/19 18:00 156/80 12/05/19 17:45 129 36 143/71 (95) 100 12/05/19 17:30 130 36 147/62 (90) 100 12/05/19 17:15 99.6 129 31 148/70 (96) 100 12/05/19 17:00 129 37 144/79 (100) 100 12/05/19 17:00 129 36 144/65 (91) 100 12/05/19 17:00 35 Mechanical Ventilator 100 12/05/19 17:00 143/71 12/05/19 16:45 124 35 144/65 (91) 100 12/05/19 16:30 127 36 133/66 (88) 100 12/05/19 16:18 129 35 100 12/05/19 16:15 128 36 138/69 (92) 100 12/05/19 16:00 129 12/05/19 16:00 100 12/05/19 16:00 99.5 128 33 141/65 (90) 100 12/05/19 16:00 35 Mechanical Ventilator 100 12/05/19 16:00 138/69 12/05/19 16:00 Mechanical Ventilator 12/05/19 15:45 35 Mechanical Ventilator 100 12/05/19 15:45 128 34 133/69 (90) 100 12/05/19 15:30 35 Mechanical Ventilator 100 12/05/19 15:30 129 34 122/69 (86) 100 12/05/19 15:15 35 Non-Rebreather 100 12/05/19 15:15 130 37 132/71 (91) 100 12/05/19 15:00 35 Mechanical Ventilator 100 12/05/19 15:00 132/71 12/05/19 15:00 130 23 120/74 (89) 100 12/05/19 14:45 40 Mechanical Ventilator 100 12/05/19 14:30 35 Mechanical Ventilator 100 12/05/19 14:15 35 Mechanical Ventilator 100 12/05/19 14:00 130 23 124/73 (90) 100 12/05/19 13:55 40 Mechanical Ventilator 100 12/05/19 13:55 31 116/79 Mechanical Ventilator 100 12/05/19 13:54 116/79 Intake and Output 12/05/19 12/06/19 19:00 07:00 Intake Total 533.12 ml 1245.125 ml Output Total 60 ml 20 ml Balance 473.12 ml 1225.125 ml IV Total 533.12 ml 1245.125 ml Output Urine Total 60 ml 20 ml # Voids 3 # Bowel Movements 2 Laboratory Tests 12/06/19 03:24: White Blood Count 35.6*H, Red Blood Count 4.13L, Hemoglobin 12.3L, Hematocrit 39.3L, Mean Corpuscular Volume 95, Mean Corpuscular Hemoglobin 29.8, Mean Corpuscular Hemoglobin Concent 31.4L, Red Cell Distribution Width 13.1, Platelet Count 511H, Mean Platelet Volume 6.4L, Neutrophils (%) (Auto) , Lymphocytes (%) (Auto) , Monocytes (%) (Auto) , Eosinophils (%) (Auto) , Basophils (%) (Auto) , Differential Total Cells Counted 100, Neutrophils % ( Manual) 91H, Lymphocytes % (Manual) 4L, Monocytes % (Manual) 5, Eosinophils % ( Manual) 0, Basophils % (Manual) 0, Band Neutrophils 0, Platelet Estimate Adequate, Platelet Morphology Normal, Red Blood Cell Morphology Normal, Sodium Level 143, Potassium Level 6.6*H, Chloride Level 109H, Carbon Dioxide Level 22, Anion Gap 14, Blood Urea Nitrogen 68H, Creatinine 5.7#H, Estimat Glomerular Filtration Rate 10.3, Glucose Level 178H, Calcium Level 8.0L, Total Bilirubin 1.1H, Direct Bilirubin 0.7H, Aspartate Amino Transf (AST/SGOT) 335H, Alanine Aminotransferase (ALT/SGPT) 139H, Alkaline Phosphatase 129H, Total Protein 7.0, Albumin 1.9L, Globulin 5.1, Albumin/Globulin Ratio 0.4L Height (Feet): 5 Height (Inches): 6.00 Weight (Pounds): 177 General Appearance: no apparent distress EENT: normal ENT inspection Neck: supple Cardiovascular: normal rate Respiratory/Chest: decreased breath sounds Abdomen: normal bowel sounds, non tender, soft Extremities: non-tender João Rdz MD Dec 06, 2019 13:41
--- NOTE | 2019-12-06 13:45 | Cardiac Electrophysiology PN ---
Assessment/Plan Assessment/Plan 1. Atrial fib with RVR 170 right before intubation. Converted to Sinus tach after intubation. Troponin 0.77 2. Sinus Tachycardia due to respiratory failure and COVID-19 pneumonia and superimposing infection. The patient already on IV antibiotic with Zosyn as well as doxycycline. Echocardiogram after Covid negative. The patient already completed hydroxychloroquine. 3. Septic shock. Maxed out on 2 pressors. 4. Respiratory failure, on the Vent by Dr. Cortes.100% Fio2 PEEP 10 5. Acute renal failure. HD per Dr. Sanchez 6. Full code DW RN Subjective Subjective Intubated in ICU, Maxed out on Levo and Vaso. Had Atrial fib with RVR 160s.In acute renal failure.Got gucose, insulin, Kayexalate for K 6.6.T max 104.3 Had RFV [place] and awaiting HD today Objective Last 24 Hour Vital Signs Date Time Temp Pulse Resp B/P (MAP) Pulse Ox O2 Delivery O2 Flow Rate FiO2 12/06/19 12:15 132 20 111/60 (77) 100 12/06/19 12:00 102.6 133 20 113/61 (78) 100 12/06/19 12:00 131 12/06/19 12:00 100 12/06/19 12:00 Mechanical Ventilator 12/06/19 11:55 133 20 113/61 (78) 100 12/06/19 11:45 133 21 114/58 (76) 100 12/06/19 11:30 134 21 111/61 (78) 100 12/06/19 11:15 130 22 100 12/06/19 11:15 134 20 114/59 (77) 100 12/06/19 11:05 103.3 12/06/19 11:00 138 22 102/67 (79) 100 12/06/19 10:45 139 22 116/57 (76) 100 12/06/19 10:30 139 21 114/60 (78) 100 12/06/19 10:15 140 21 125/75 (92) 100 12/06/19 10:05 140 21 103/55 (71) 100 12/06/19 09:45 139 23 100/53 (69) 100 12/06/19 09:35 139 22 99/54 (69) 100 12/06/19 09:30 139 23 105/55 (72) 100 12/06/19 09:25 129 21 109/60 (76) 100 12/06/19 09:20 128 23 81/46 (58) 100 12/06/19 09:18 128 22 81/39 (53) 100 12/06/19 09:15 128 22 79/34 (49) 100 12/06/19 09:14 128 22 73/40 (51) 100 12/06/19 09:12 70/33 12/06/19 09:10 128 22 72/42 (52) 100 12/06/19 09:08 128 21 70/33 (45) 100 12/06/19 09:07 127 22 68/32 (44) 100 12/06/19 09:05 127 22 71/33 (46) 100 12/06/19 09:00 128 21 67/37 (47) 100 12/06/19 09:00 122 20 100 12/06/19 08:55 128 21 56/34 (41) 100 12/06/19 08:45 129 21 59/35 (43) 100 12/06/19 08:30 130 21 94/46 (62) 100 12/06/19 08:15 130 23 92/50 (64) 100 12/06/19 08:00 100 12/06/19 08:00 Mechanical Ventilator 12/06/19 08:00 131 12/06/19 08:00 104.2 131 22 90/49 (63) 100 12/06/19 07:45 131 22 91/48 (62) 100 12/06/19 07:30 131 21 93/52 (66) 100 12/06/19 07:15 132 21 95/48 (64) 100 12/06/19 07:00 132 21 92/51 (65) 100 12/06/19 07:00 32 Mechanical Ventilator 100 12/06/19 06:50 130 20 100 12/06/19 06:45 133 21 95/49 (64) 100 12/06/19 06:30 133 21 95/50 (65) 100 12/06/19 06:18 87/45 12/06/19 06:15 135 21 87/45 (59) 100 12/06/19 06:00 36 Mechanical Ventilator 100 12/06/19 06:00 135 21 95/50 (65) 100 12/06/19 05:47 36 Mechanical Ventilator 100 12/06/19 05:45 135 22 99/50 (66) 100 12/06/19 05:30 136 20 96/50 (65) 100 12/06/19 05:20 136 22 100 12/06/19 05:15 136 20 96/50 (65) 100 12/06/19 05:00 36 Mechanical Ventilator 100 12/06/19 05:00 135 20 96/53 (67) 100 12/06/19 04:45 136 20 100/50 (67) 100 12/06/19 04:30 136 20 97/51 (66) 100 12/06/19 04:15 137 21 98/47 (64) 100 12/06/19 04:00 100.8 136 21 92/50 (64) 99 12/06/19 04:00 Mechanical Ventilator 12/06/19 04:00 36 Mechanical Ventilator 100 12/06/19 04:00 93/48 12/06/19 04:00 100 12/06/19 03:46 126 21 100 12/06/19 03:45 137 22 93/48 (63) 99 12/06/19 03:38 136 12/06/19 03:30 137 22 101/49 (66) 99 12/06/19 03:15 138 21 98/51 (67) 99 12/06/19 03:00 139 23 95/48 (64) 99 12/06/19 03:00 35 Mechanical Ventilator 100 12/06/19 03:00 98/51 12/06/19 02:45 139 23 103/51 (68) 99 12/06/19 02:30 140 24 102/49 (66) 99 12/06/19 02:15 140 24 103/50 (67) 98 12/06/19 02:00 141 25 105/47 (66) 97 12/06/19 02:00 35 Mechanical Ventilator 100 12/06/19 01:45 141 24 102/46 (64) 97 12/06/19 01:39 141 26 100 12/06/19 01:30 140 26 81/39 (53) 96 12/06/19 01:25 104/51 12/06/19 01:15 141 27 104/51 (68) 96 12/06/19 01:00 35 Mechanical Ventilator 100 12/06/19 01:00 143 26 106/47 (66) 96 12/06/19 00:45 143 26 108/58 (75) 96 12/06/19 00:30 143 26 108/48 (68) 96 12/06/19 00:15 143 26 104/47 (66) 96 12/06/19 00:00 102.9 142 28 104/51 (68) 96 12/06/19 00:00 Mechanical Ventilator 12/06/19 00:00 36 Mechanical Ventilator 100 12/05/19 23:54 140 12/05/19 23:45 128 21 97/42 (60) 87 12/05/19 23:40 51/27 12/05/19 23:39 64 21 52/29 (37) 90 12/05/19 23:36 62 21 100 12/05/19 23:36 62 22 48/26 (33) 90 12/05/19 23:30 64 22 49/27 (34) 89 12/05/19 23:15 58 23 91/66 (74) 77 12/05/19 23:07 79 42 111/69 (83) 68 12/05/19 23:00 128 38 76/41 (53) 62 12/05/19 23:00 46 Mechanical Ventilator 100 12/05/19 22:59 35 Mechanical Ventilator 100 12/05/19 22:47 140 51 91/50 (64) 76 12/05/19 22:15 138 33 115/63 (80) 95 12/05/19 22:00 138 33 106/57 (73) 95 12/05/19 22:00 39 Mechanical Ventilator 100 12/05/19 21:45 137 33 104/55 (71) 95 12/05/19 21:30 139 35 119/59 (79) 97 12/05/19 21:15 140 37 116/58 (77) 96 12/05/19 21:09 128 38 100 12/05/19 21:00 138 36 119/65 (83) 98 12/05/19 21:00 36 Mechanical Ventilator 100 12/05/19 20:45 138 36 117/51 (73) 97 12/05/19 20:30 137 36 121/58 (79) 97 12/05/19 20:15 136 34 121/57 (78) 96 12/05/19 20:14 136 12/05/19 20:00 100 12/05/19 20:00 Mechanical Ventilator 4/23/20 20:00 35 Mechanical Ventilator 100 12/05/19 20:00 101.9 134 35 127/56 (79) 97 12/05/19 19:51 124 41 100 12/05/19 19:45 132 34 129/66 (87) 97 12/05/19 19:30 132 35 129/65 (86) 95 12/05/19 19:15 133 36 153/67 (95) 97 12/05/19 19:00 35 Mechanical Ventilator 100 12/05/19 19:00 99.8 130 34 125/57 (79) 97 12/05/19 18:45 134 33 129/63 (85) 96 12/05/19 18:30 134 34 139/63 (88) 96 12/05/19 18:15 133 32 156/80 (105) 99 12/05/19 18:00 132 38 139/73 (95) 100 12/05/19 18:00 35 Mechanical Ventilator 100 12/05/19 18:00 156/80 12/05/19 17:45 129 36 143/71 (95) 100 12/05/19 17:30 130 36 147/62 (90) 100 12/05/19 17:15 99.6 129 31 148/70 (96) 100 12/05/19 17:00 129 37 144/79 (100) 100 12/05/19 17:00 129 36 144/65 (91) 100 12/05/19 17:00 35 Mechanical Ventilator 100 12/05/19 17:00 143/71 12/05/19 16:45 124 35 144/65 (91) 100 12/05/19 16:30 127 36 133/66 (88) 100 12/05/19 16:18 129 35 100 12/05/19 16:15 128 36 138/69 (92) 100 12/05/19 16:00 129 12/05/19 16:00 100 12/05/19 16:00 99.5 128 33 141/65 (90) 100 12/05/19 16:00 35 Mechanical Ventilator 100 12/05/19 16:00 138/69 12/05/19 16:00 Mechanical Ventilator 12/05/19 15:45 35 Mechanical Ventilator 100 12/05/19 15:45 128 34 133/69 (90) 100 12/05/19 15:30 35 Mechanical Ventilator 100 12/05/19 15:30 129 34 122/69 (86) 100 12/05/19 15:15 35 Non-Rebreather 100 12/05/19 15:15 130 37 132/71 (91) 100 12/05/19 15:00 35 Mechanical Ventilator 100 12/05/19 15:00 132/71 12/05/19 15:00 130 23 120/74 (89) 100 12/05/19 14:45 40 Mechanical Ventilator 100 12/05/19 14:30 35 Mechanical Ventilator 100 12/05/19 14:15 35 Mechanical Ventilator 100 12/05/19 14:00 130 23 124/73 (90) 100 12/05/19 13:55 40 Mechanical Ventilator 100 12/05/19 13:55 31 116/79 Mechanical Ventilator 100 12/05/19 13:54 116/79 Intake and Output 12/05/19 12/06/19 19:00 07:00 Intake Total 533.12 ml 1245.125 ml Output Total 60 ml 20 ml Balance 473.12 ml 1225.125 ml IV Total 533.12 ml 1245.125 ml Output Urine Total 60 ml 20 ml # Voids 3 # Bowel Movements 2 Laboratory Tests Test 12/06/19 03:24 White Blood Count 35.6 K/UL (4.8-10.8) *H Red Blood Count 4.13 M/UL (4.70-6.10) L Hemoglobin 12.3 G/DL (14.2-18.0) L Hematocrit 39.3 % (42.0-52.0) L Mean Corpuscular Volume 95 FL (80-99) Mean Corpuscular Hemoglobin 29.8 PG (27.0-31.0) Mean Corpuscular Hemoglobin Concent 31.4 G/DL (32.0-36.0) L Red Cell Distribution Width 13.1 % (11.6-14.8) Platelet Count 511 K/UL (150-450) H Mean Platelet Volume 6.4 FL (6.5-10.1) L Neutrophils (%) (Auto) % (45.0-75.0) Lymphocytes (%) (Auto) % (20.0-45.0) Monocytes (%) (Auto) % (1.0-10.0) Eosinophils (%) (Auto) % (0.0-3.0) Basophils (%) (Auto) % (0.0-2.0) Differential Total Cells Counted 100 Neutrophils % (Manual) 91 % (45-75) H Lymphocytes % (Manual) 4 % (20-45) L Monocytes % (Manual) 5 % (1-10) Eosinophils % (Manual) 0 % (0-3) Basophils % (Manual) 0 % (0-2) Band Neutrophils 0 % (0-8) Platelet Estimate Adequate Platelet Morphology Normal Red Blood Cell Morphology Normal Sodium Level 143 MMOL/L (136-145) Potassium Level 6.6 MMOL/L (3.5-5.1) *H Chloride Level 109 MMOL/L (98-107) H Carbon Dioxide Level 22 MMOL/L (21-32) Anion Gap 14 mmol/L (5-15) Blood Urea Nitrogen 68 mg/dL (7-18) H Creatinine 5.7 MG/DL (0.55-1.30) #H Estimat Glomerular Filtration Rate 10.3 mL/min (>60) Glucose Level 178 MG/DL (74-106) H Calcium Level 8.0 MG/DL (8.5-10.1) L Total Bilirubin 1.1 MG/DL (0.2-1.0) H Direct Bilirubin 0.7 MG/DL (0.0-0.3) H Aspartate Amino Transf (AST/SGOT) 335 U/L (15-37) H Alanine Aminotransferase (ALT/SGPT) 139 U/L (12-78) H Alkaline Phosphatase 129 U/L (46-116) H Total Protein 7.0 G/DL (6.4-8.2) Albumin 1.9 G/DL (3.4-5.0) L Globulin 5.1 g/dL Albumin/Globulin Ratio 0.4 (1.0-2.7) L Microbiology Date/Time Source Procedure Growth Status 12/04/19 12:46 Blood Blood Culture - Preliminary NO GROWTH AFTER 24 HOURS Resulted 12/04/19 12:46 Blood Blood Culture - Preliminary NO GROWTH AFTER 24 HOURS Resulted 12/04/19 23:00 Sputum Gram Stain - Final Resulted 12/04/19 23:00 Sputum Sputum Culture - Preliminary NO GROWTH Resulted Objective HEAD AND NECK: Orally intubated LUNGS: Decreased breath sounds. Coarse rhonchi. CARDIOVASCULAR: Tachycardic S1 and S2 with no gallop. ABDOMEN: Soft. EXTREMITIES: 1 plus pitting edema. Raul Appiah MD Dec 06, 2019 13:45
--- NOTE | 2019-12-06 13:52 | Diagnostic Imaging Report ---
Indication: Dyspnea Technique: One view of the chest Comparison: 12/04/2019 Findings: Extensive parenchymal consolidation appears slightly improved on the right but worsened on the left, overall still severe. Apparent difference may in part be an artifact due to rotation, however. Stable satisfactory position of endotracheal tube. Interim placement of orogastric tube, tip projecting at the level of the gastric antrum Impression: Apparent shifting infiltrates versus artifact of overlying soft tissue and rotation as described, disease still extensive Satisfactory orogastric intubation.
--- NOTE | 2019-12-06 13:56 | NUR ---
RADIOLOGY DEPT., CHEST X-RAY DONE.-P.DYE
--- NOTE | 2019-12-06 14:28 | NUR ---
NURSE NOTES: Updated Dr. Appiah regarding the patients condition at this time and overnight. Notified him that pateint had an episode of bradycardia during the night and is currently receiving max dose of Levophed and vasopressin. Showed him 12 lead EKG strip done this morning. Received order for Tylenol via NG tube Q4Hr PRN for temp >100.5. Order read back, verified, and placed.
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
[2019-12-06] MEDS: Acetaminophen 650mg/20.3ml NG PRN (14:40)
--- NOTE | 2019-12-06 16:00 | NUR ---
NURSE NOTES: [facility] dialysis nurse has not arrived to dialyze patient. Called to follow up with [facility]. Awaiting call back. Patient blood pressure 96/41 on Levophed at 30mcg/min and vasopressin at 0.03units/hr. Will continue to monitor and titrate as needed per protocol. Temperature elevated at 105.6 at this time. Tylenol given. Cooling blanket in place. ice packs in place. ID MD notified. Will continue to monitor. HR 132 in sinus tachycardia. Patient remains sedated with RASS score -2 on fentanyl at 150mcg/hr at this time. Patient remains orally intubated with size 8 ET tube with 24cm at the lip line. ventilator setting AC 20, tidal volume 500, FiO2 100%, and PEEP 10. Patient tolerating with RR 35, SpO2 100%. Left nares, nasal gastric tube that is patent, asymptomatic, and clamped at this time. Joe remains in place with some bloody discharge noted on tip of penis. Will continue to monitor. Right jia catheter with pigtail remains patent, dressing dry and intact, and running Levophed, vasopressin, and fentanyl. Patient bed in low position with bed alarm on and call light in reach at this time. Oral care and repositioning performed at this time.
--- NOTE | 2019-12-06 19:17 | NUR ---
NURSE NOTES: Temperature remains elevated and rising. Cooling blanket remains in place. Rectal tylenol given at this time. Will continue to administer per order as needed. Will continue to monitor.
--- NOTE | 2019-12-06 19:30 | NUR ---
HAND-OFF: Report given to DARYA Smith. Temperature now 104.2 rectal and dropping. Cooling blanket and ice packs remain in place.
--- NOTE | 2019-12-06 19:40 | NUR ---
NURSE NOTES: Received report from DARYA German. Pt is sleeping on the bed. Pt Orally intubated with ETT #8 placed 24cm lip line. Vent dependent and setting with AC: 20, T:500 P:10 and SaO2 100% and FiO2 98-100% noted. Pt has fever. noted BT: 104 F. Keep cooling measure with cooling mattress. On compliance monitor with ST. On running with Levophed at 30mcg/min, Vasopressin 0.03u/min, Fentanyl drip @ 150mcg/hr. Will continue to monitor and titrate as needed per protocol. Patient has barnes for urine retention and patent. no urine output noted at this time. Patient has right jia catheter with pigtail that is patent, dressing dry and intact. Pt scheduled hemodialysis today. Dialysis nurse stay in bedside. Patient bed in low position with bed alarm on and call light in reach at this time. Will continue to care plan.
--- NOTE | 2019-12-06 20:15 | Infectious Diseases Prog Note ---
Assessment/Plan Assessment/Plan ASSESSMENT AND PLAN: 1. covid-19 virus infection with pna, rule out bacterial pna, sepsis/shock, fevers, leukocytosis vent, respiratory failure, gram + blood cultures, ? bacteremia, ? contaminant - meropenem and linezolid - s/p hydroxychloroquine - monitor chest x-ray and labs - s/p tocilizumab - critical - check cultures, labs, chest x-ray - poor prognosis 2. Hypertension. 3. No known allergies. 4. Social history negative. 5. Family history noncontributory. 6. MAR was noted. 7. Case discussed with RN. 8. Continue treatment per primary consultants. Subjective Constitutional: Reports: fever, other - on vent, poorly responsive HEENT: Reports: congestion Respiratory: Reports: shortness of breath Cardiovascular: Reports: other Gastrointestinal/Abdominal: Denies: nausea, vomiting Genitourinary: Reports: other - + barnes Neurologic: Reports: weakness, other - lethargic Psychiatric: Reports: other - NA Skin: Denies: rash Hematologic: Denies: bleeding Musculoskeletal: Reports: other - NA Allergies: Coded Allergies: No Known Allergies (Unverified , 11/29/19) Objective Vital Signs Last 24 Hour Vital Signs Date Time Temp Pulse Resp B/P (MAP) Pulse Ox O2 Delivery O2 Flow Rate FiO2 12/06/19 19:47 104.1 12/06/19 19:22 129 23 100 12/06/19 19:15 105/60 12/06/19 16:36 130 20 100 12/06/19 16:00 111/62 12/06/19 15:10 102.9 12/06/19 15:00 120/66 12/06/19 14:53 122 23 100 12/06/19 14:00 126/64 12/06/19 14:00 131 20 126/64 (84) 100 12/06/19 13:45 132 20 124/68 (86) 100 12/06/19 13:30 133 19 129/68 (88) 100 12/06/19 13:15 133 23 130/65 (86) 100 12/06/19 13:00 130 20 113/60 (77) 100 12/06/19 13:00 113/60 12/06/19 12:40 131 20 112/61 (78) 100 12/06/19 12:30 131 20 113/63 (80) 100 12/06/19 12:15 132 20 111/60 (77) 100 12/06/19 12:00 102.6 133 20 113/61 (78) 100 12/06/19 12:00 131 12/06/19 12:00 113/61 12/06/19 12:00 100 12/06/19 12:00 Mechanical Ventilator 12/06/19 11:55 133 20 113/61 (78) 100 12/06/19 11:45 133 21 114/58 (76) 100 12/06/19 11:30 134 21 111/61 (78) 100 12/06/19 11:15 130 22 100 12/06/19 11:15 134 20 114/59 (77) 100 12/06/19 11:00 102/67 12/06/19 11:00 138 22 102/67 (79) 100 12/06/19 10:45 139 22 116/57 (76) 100 12/06/19 10:30 139 21 114/60 (78) 100 12/06/19 10:15 140 21 125/75 (92) 100 12/06/19 10:05 140 21 103/55 (71) 100 12/06/19 10:00 125/75 12/06/19 09:45 139 23 100/53 (69) 100 12/06/19 09:35 139 22 99/54 (69) 100 12/06/19 09:30 139 23 105/55 (72) 100 12/06/19 09:25 129 21 109/60 (76) 100 12/06/19 09:20 128 23 81/46 (58) 100 12/06/19 09:18 128 22 81/39 (53) 100 12/06/19 09:15 128 22 79/34 (49) 100 12/06/19 09:14 128 22 73/40 (51) 100 12/06/19 09:12 70/33 12/06/19 09:10 128 22 72/42 (52) 100 12/06/19 09:08 128 21 70/33 (45) 100 12/06/19 09:07 127 22 68/32 (44) 100 12/06/19 09:05 127 22 71/33 (46) 100 12/06/19 09:00 128 21 67/37 (47) 100 12/06/19 09:00 21 Mechanical Ventilator 100 12/06/19 09:00 103/55 12/06/19 09:00 122 20 100 12/06/19 08:55 128 21 56/34 (41) 100 12/06/19 08:45 129 21 59/35 (43) 100 12/06/19 08:30 130 21 94/46 (62) 100 12/06/19 08:15 130 23 92/50 (64) 100 12/06/19 08:00 100 12/06/19 08:00 Mechanical Ventilator 12/06/19 08:00 131 12/06/19 08:00 21 Mechanical Ventilator 100 12/06/19 08:00 90/49 12/06/19 08:00 104.2 131 22 90/49 (63) 100 12/06/19 07:45 131 22 91/48 (62) 100 12/06/19 07:30 131 21 93/52 (66) 100 12/06/19 07:15 132 21 95/48 (64) 100 12/06/19 07:00 132 21 92/51 (65) 100 12/06/19 07:00 32 Mechanical Ventilator 100 12/06/19 06:50 130 20 100 12/06/19 06:45 133 21 95/49 (64) 100 12/06/19 06:30 133 21 95/50 (65) 100 12/06/19 06:18 87/45 12/06/19 06:15 135 21 87/45 (59) 100 12/06/19 06:00 36 Mechanical Ventilator 100 12/06/19 06:00 135 21 95/50 (65) 100 12/06/19 05:47 36 Mechanical Ventilator 100 12/06/19 05:45 135 22 99/50 (66) 100 12/06/19 05:30 136 20 96/50 (65) 100 12/06/19 05:20 136 22 100 12/06/19 05:15 136 20 96/50 (65) 100 12/06/19 05:00 36 Mechanical Ventilator 100 12/06/19 05:00 135 20 96/53 (67) 100 12/06/19 04:45 136 20 100/50 (67) 100 12/06/19 04:30 136 20 97/51 (66) 100 12/06/19 04:15 137 21 98/47 (64) 100 12/06/19 04:00 100.8 136 21 92/50 (64) 99 12/06/19 04:00 Mechanical Ventilator 12/06/19 04:00 36 Mechanical Ventilator 100 12/06/19 04:00 93/48 12/06/19 04:00 100 12/06/19 03:46 126 21 100 12/06/19 03:45 137 22 93/48 (63) 99 12/06/19 03:38 136 12/06/19 03:30 137 22 101/49 (66) 99 12/06/19 03:15 138 21 98/51 (67) 99 12/06/19 03:00 139 23 95/48 (64) 99 12/06/19 03:00 35 Mechanical Ventilator 100 12/06/19 03:00 98/51 12/06/19 02:45 139 23 103/51 (68) 99 12/06/19 02:30 140 24 102/49 (66) 99 12/06/19 02:15 140 24 103/50 (67) 98 12/06/19 02:00 141 25 105/47 (66) 97 12/06/19 02:00 35 Mechanical Ventilator 100 12/06/19 01:45 141 24 102/46 (64) 97 12/06/19 01:39 141 26 100 12/06/19 01:30 140 26 81/39 (53) 96 12/06/19 01:25 104/51 12/06/19 01:15 141 27 104/51 (68) 96 12/06/19 01:00 35 Mechanical Ventilator 100 12/06/19 01:00 143 26 106/47 (66) 96 12/06/19 00:45 143 26 108/58 (75) 96 12/06/19 00:30 143 26 108/48 (68) 96 12/06/19 00:15 143 26 104/47 (66) 96 12/06/19 00:00 102.9 142 28 104/51 (68) 96 12/06/19 00:00 Mechanical Ventilator 12/06/19 00:00 36 Mechanical Ventilator 100 12/05/19 23:54 140 12/05/19 23:45 128 21 97/42 (60) 87 12/05/19 23:40 51/27 12/05/19 23:39 64 21 52/29 (37) 90 12/05/19 23:36 62 21 100 12/05/19 23:36 62 22 48/26 (33) 90 12/05/19 23:30 64 22 49/27 (34) 89 12/05/19 23:15 58 23 91/66 (74) 77 12/05/19 23:07 79 42 111/69 (83) 68 12/05/19 23:00 128 38 76/41 (53) 62 12/05/19 23:00 46 Mechanical Ventilator 100 12/05/19 22:59 35 Mechanical Ventilator 100 12/05/19 22:47 140 51 91/50 (64) 76 12/05/19 22:15 138 33 115/63 (80) 95 12/05/19 22:00 138 33 106/57 (73) 95 12/05/19 22:00 39 Mechanical Ventilator 100 12/05/19 21:45 137 33 104/55 (71) 95 12/05/19 21:30 139 35 119/59 (79) 97 12/05/19 21:15 140 37 116/58 (77) 96 12/05/19 21:09 128 38 100 12/05/19 21:00 138 36 119/65 (83) 98 12/05/19 21:00 36 Mechanical Ventilator 100 12/05/19 20:45 138 36 117/51 (73) 97 12/05/19 20:30 137 36 121/58 (79) 97 12/05/19 20:15 136 34 121/57 (78) 96 12/05/19 20:14 136 Height (Feet): 5 Height (Inches): 6.00 Weight (Pounds): 177 General Appearance: other - on vent and pressors HEENT: normocephalic, atraumatic, other - oral - intubated Respiratory/Chest: crackles/rales, rhonchi - bilaterally Cardiovascular: normal rate, regular rhythm, tachycardia Abdomen: normal bowel sounds, soft, non tender, no organomegaly Genitourinary: other Extremities: no cyanosis Skin: no rash Neurologic/Psychiatric: motor weakness, other - lethargic Lymphatic: no neck adenopathy Musculoskeletal: no effusion Objective Chest x-ray - 12/02/19 - Procedure: XRAY Chest 1v EXAM: XR Chest, 1 View CLINICAL HISTORY: ABN CHST TECHNIQUE: Frontal view of the chest. COMPARISON: Chest x-ray dated 11/29/19 FINDINGS: Lungs: Persistent diffuse peripheral groundglass opacities, not significantly changed, concerning for pneumonia. Pleural space: Unremarkable. The costophrenic angles are sharp. No visible pneumothorax. Heart: Unremarkable. No cardiomegaly. Mediastinum: Unremarkable. Bones/joints: Mild degenerative changes throughout the visualized spine. Tubes, lines and devices: Telemetry leads overlie the thorax. IMPRESSION: No significant change compared to the prior chest x-ray. Persistent diffuse peripheral groundglass opacities, concerning for pneumonia. Microbiology Date/Time Source Procedure Growth Status 12/04/19 12:46 Blood Blood Culture - Preliminary NO GROWTH AFTER 24 HOURS Resulted 12/04/19 12:46 Blood Blood Culture - Preliminary Resulted 12/04/19 23:00 Sputum Gram Stain - Final Resulted 12/04/19 23:00 Sputum Sputum Culture - Preliminary NO GROWTH Resulted Laboratory Tests Test 12/06/19 03:24 White Blood Count 35.6 K/UL (4.8-10.8) *H Red Blood Count 4.13 M/UL (4.70-6.10) L Hemoglobin 12.3 G/DL (14.2-18.0) L Hematocrit 39.3 % (42.0-52.0) L Mean Corpuscular Volume 95 FL (80-99) Mean Corpuscular Hemoglobin 29.8 PG (27.0-31.0) Mean Corpuscular Hemoglobin Concent 31.4 G/DL (32.0-36.0) L Red Cell Distribution Width 13.1 % (11.6-14.8) Platelet Count 511 K/UL (150-450) H Mean Platelet Volume 6.4 FL (6.5-10.1) L Neutrophils (%) (Auto) % (45.0-75.0) Lymphocytes (%) (Auto) % (20.0-45.0) Monocytes (%) (Auto) % (1.0-10.0) Eosinophils (%) (Auto) % (0.0-3.0) Basophils (%) (Auto) % (0.0-2.0) Differential Total Cells Counted 100 Neutrophils % (Manual) 91 % (45-75) H Lymphocytes % (Manual) 4 % (20-45) L Monocytes % (Manual) 5 % (1-10) Eosinophils % (Manual) 0 % (0-3) Basophils % (Manual) 0 % (0-2) Band Neutrophils 0 % (0-8) Platelet Estimate Adequate Platelet Morphology Normal Red Blood Cell Morphology Normal Sodium Level 143 MMOL/L (136-145) Potassium Level 6.6 MMOL/L (3.5-5.1) *H Chloride Level 109 MMOL/L (98-107) H Carbon Dioxide Level 22 MMOL/L (21-32) Anion Gap 14 mmol/L (5-15) Blood Urea Nitrogen 68 mg/dL (7-18) H Creatinine 5.7 MG/DL (0.55-1.30) #H Estimat Glomerular Filtration Rate 10.3 mL/min (>60) Glucose Level 178 MG/DL (74-106) H Calcium Level 8.0 MG/DL (8.5-10.1) L Total Bilirubin 1.1 MG/DL (0.2-1.0) H Direct Bilirubin 0.7 MG/DL (0.0-0.3) H Aspartate Amino Transf (AST/SGOT) 335 U/L (15-37) H Alanine Aminotransferase (ALT/SGPT) 139 U/L (12-78) H Alkaline Phosphatase 129 U/L (46-116) H Total Protein 7.0 G/DL (6.4-8.2) Albumin 1.9 G/DL (3.4-5.0) L Globulin 5.1 g/dL Albumin/Globulin Ratio 0.4 (1.0-2.7) L Current Medications Medications (Trade) Dose Ordered Sig/Vicki Route PRN Reason Start Time Stop Time Status Last Admin Dose Admin Acetaminophen (Tylenol) 650 mg Q4H PRN NG Temp >100.5 12/06/19 14:15 01/05/20 14:14 12/06/19 14:40 Acetaminophen (Tylenol) 650 mg Q4H PRN RECTAL Mild Pain (Pain Scale 1-3) 12/04/19 11:45 01/03/20 11:44 12/06/19 19:17 Albumin Human 100 ml @ 100 mls/hr ONCE ONCE IV 12/06/19 20:00 12/06/19 20:59 Albumin Human 100 ml @ 200 mls/hr ONCE ONCE IV 12/06/19 20:00 12/06/19 20:29 Chlorhexidine Gluconate (Arely-Hex 2%) 1 applic DAILY@2000 TOPIC 12/05/19 20:00 03/04/20 19:59 12/05/19 21:09 Dextrose (Dextrose 50%) 25 ml Q30M PRN IV Hypoglycemia 11/29/19 14:15 02/27/20 14:14 Dextrose (Dextrose 50%) 50 ml Q30M PRN IV Hypoglycemia 11/29/19 14:15 02/27/20 14:14 Fentanyl Citrate 2500 mcg/Sodium Chloride 250 ml @ 0 mls/hr Q24H IVPB 12/06/19 02:00 12/13/19 01:59 12/06/19 05:47 Heparin Sodium (Porcine) (Heparin 5000 units/ml) 5,000 units EVERY 8 HOURS SUBQ 11/30/19 14:00 01/14/20 13:59 12/06/19 14:41 Heparin Sodium/ Sodium Chloride (Heparin 1000 units/500ml Premix) 1,000 unit ONCE PRN IV picc placement 12/05/19 12:15 12/07/19 12:14 Hydralazine HCl (Apresoline) 10 mg Q4H PRN IV For High Blood Pressure 11/29/19 15:15 02/27/20 15:14 Lidocaine HCl (Xylocaine 1% 30ml) 30 ml ONCE PRN INJ picc line placement 12/05/19 12:15 12/07/19 12:14 Linezolid 300 ml @ 300 mls/hr Q12HR IVPB 12/05/19 21:00 12/12/19 20:59 12/06/19 09:17 Meropenem 500 mg/ Sodium Chloride 55 ml @ 110 mls/hr EVERY 12 HOURS IVPB 12/05/19 21:00 12/10/19 20:59 12/06/19 09:13 Norepinephrine Bitartrate 16 mg/ Dextrose 566 ml @ 0 mls/hr Q24H IV 12/06/19 09:00 01/05/20 08:59 12/06/19 19:15 Ondansetron HCl (Zofran) 4 mg Q6H PRN IVP Nausea & Vomiting 11/29/19 14:15 12/29/19 14:14 Pantoprazole (Protonix) 40 mg DAILY IVP 11/30/19 12:15 12/30/19 12:14 12/06/19 09:13 Vasopressin 100 units/Sodium Chloride 100 ml @ 0 mls/hr Q24H IV 12/06/19 09:00 01/05/20 08:59 12/06/19 09:03 Ilsa Rodriguez MD Dec 06, 2019 20:15
[2019-12-06] MEDS: Dyna-Hex 2% Top Sol 2oz TOPIC SCH (20:31)
--- NOTE | 2019-12-06 21:00 | NUR ---
NURSE NOTES: Pt is sleeping on the bed and on hemodialysis. Hemodialysis nurse stay in bed. BT checked 99F noted. Will continue to monitor any change of condition.
--- NOTE | 2019-12-06 23:30 | NUR ---
NURSE NOTES: Pt is sleeping on the bed and no sign of acute distress noted. Finished hemodialysis and no urine output noted. No fever noted. Hold cooling mattress. Noted BP 145/77mmHg. Decrease Levophed drip to 28mcg/min and Vasopressin 0.03u/min. Will continue to monitor any change of condition.
[2019-12-07] VITALS (68 sets, daily range): BP systolic 96–176; BP diastolic 58–96
--- NOTE | 2019-12-07 02:00 | NUR ---
NURSE NOTES: Pt is sleeping on the bed and no sign of acute distress noted. on running with Levophed and vasopressin drip as titrate. Repositioned. Tolerated with current Vent setting. Provide oral care. Placed fall precaution. Will continue to monitor any change of condition.
[2019-12-07] MEDS: Norepinephrine Bitartrate 16 MG in D5W 500ml 550 ML IV SCH (05:37)
[2019-12-07 05:50] LABS: HEMATOCRIT 36.6 % (42.0-52.0); HEMOGLOBIN 11.9 G/DL (14.2-18.0); MEAN CORPUSCULAR VOLUME 93 FL (80-99); PLATELET COUNT 242 K/UL (150-450); RED BLOOD COUNT 3.91 M/UL (4.70-6.10); RED CELL DISTRIBUTION WIDTH 13.2 % (11.6-14.8)
--- NOTE | 2019-12-07 06:00 | NUR ---
NURSE NOTES: Morning care was done. Applied lotion and cream. Changed position. Given oral care. Noted BT 97.8F. On NPO. Tolerated with current Vent setting. Will continue to monitor nay change of condition.
[2019-12-07] MEDS: Heparin 5000 units/ml inj SUBQ SCH ×3 (06:06→22:08)
[2019-12-07 06:29] LABS: ALANINE AMINOTRANSFERASE 488 U/L (12-78); ALBUMIN 2.7 G/DL (3.4-5.0); ALBUMIN/GLOBULIN RATIO 0.7 (1.0-2.7); ALKALINE PHOSPHATASE 99 U/L (46-116); ANION GAP 12 mmol/L (5-15); BILIRUBIN,TOTAL 1.5 MG/DL (0.2-1.0); BLOOD UREA NITROGEN 56 mg/dL (7-18); CARBON DIOXIDE 28 MMOL/L (21-32); CHLORIDE 103 MMOL/L (98-107); POTASSIUM 5.2 MMOL/L (3.5-5.1); SODIUM 143 MMOL/L (136-145)
[2019-12-07 06:40] LABS: ASPARTATE AMINO TRANSFERASE 2065 U/L (15-37); BILIRUBIN,DIRECT 1.1 MG/DL (0.0-0.3)
--- NOTE | 2019-12-07 07:40 | NUR ---
HAND-OFF: Report given to DARYA Pires. Pt is sleeping on the bed and noted SaO2 99% with current Vent setting. On running with Levophed drip @ 18mcg/min and fentanyl drip @ 100mcg/hr. Hold vasopressin drip.
--- NOTE | 2019-12-07 07:42 | NUR ---
NURSE NOTES: Report received from DARYA Smith. Patient sedated with RASS score -2 on fentanyl at 100mcg/hr at this time. Cooling blanket in place; currently off. Patient HR 98 on bus monitor. Patient remains orally intubated with size 8 ETT, 24cm at the lip line. Ventilator settings AC 20, TV 500, FiO2 100%, and PEEP 10. Patient tolerating with RR 22, SpO2 100%. Left nares NGT patent, asymptomatic, and clamped at this time as pt is NPO. Joe catheter in place, draining to urometer, althought pt is making minimal urine. Right jia catheter with pigtail remains patent, dressing clean, dry and intact, and running Levophed & Fentanyl. PIV Lt wrist #[id number]. 2 point wrist restraints D/C'd, as pt is sedated and currently not pulling at tubing. Bed locked and in lowest position with bed alarm on and call light in reach at this time. Oral care and repositioning performed at this time.
[2019-12-07] MEDS ORDERED: Sodium Polystyrene Sulfonate 15gm Powder ORAL SCH (08:00)
[2019-12-07] MEDS ORDERED: Calcium Gluconate 10% 1 GM in NS 110 ML IVPB SCH (08:00)
--- NOTE | 2019-12-07 08:15 | NUR ---
NURSE NOTES: Rectal temp 96.0. Warming measures initiated. Placed on warming blanket and covered with a blanket. Will continue to monitor.
[2019-12-07] MEDS: Meropenem 500mg in NS 55ml IVPB SCH ×2 (08:31→20:24)
[2019-12-07] MEDS: Pantoprazole Inj IVP SCH (08:32)
[2019-12-07] MEDS: Vasopressin 100 UNITS in NS 95 ML IV SCH (09:00)
--- NOTE | 2019-12-07 10:00 | NUR ---
NURSE NOTES: Pt turned and positioned for comfort. Oral care complete. Temp is now 98.3; turned off heating blanket.
--- NOTE | 2019-12-07 11:36 | Urology Progress Note ---
Assessment/Plan Assessment/Plan: 1. Phimosis. 2. Retention. 3. Hematuria. 4. Pyuria. 5. Proteinuria. 6. Acute kidney injury. 7. Meatal stenosis. monitor clinically maintain barnes, placed 12/04 hand irrigate PRN monitor urine output and renal fxn consider renal imaging f/u on blood cx abx as ordered Subjective Allergies: Coded Allergies: No Known Allergies (Unverified , 11/29/19) Subjective remains on vent, still with minimal urine output Objective Last 24 Hour Vital Signs Date Time Temp Pulse Resp B/P (MAP) Pulse Ox O2 Delivery O2 Flow Rate FiO2 12/07/19 11:00 111 20 137/87 (104) 96 12/07/19 10:30 107 20 141/85 (103) 98 12/07/19 10:15 105 19 148/87 (107) 100 12/07/19 10:00 154/89 12/07/19 10:00 22 Mechanical Ventilator 100 12/07/19 10:00 97.0 108 19 154/89 (110) 100 12/07/19 09:45 107 19 164/91 (115) 100 12/07/19 09:30 107 20 154/94 (114) 100 12/07/19 09:15 107 20 141/76 (97) 100 12/07/19 09:00 139/74 12/07/19 09:00 22 Mechanical Ventilator 100 12/07/19 09:00 105 21 139/74 (95) 100 12/07/19 08:45 102 20 135/73 (93) 100 12/07/19 08:31 142/79 12/07/19 08:30 97 22 142/79 (100) 100 12/07/19 08:00 100 12/07/19 08:00 Mechanical Ventilator 12/07/19 08:00 96.0 98 23 166/89 (114) 100 12/07/19 08:00 166/89 12/07/19 08:00 22 Mechanical Ventilator 100 12/07/19 07:45 100 21 167/93 (117) 100 12/07/19 07:30 99 21 176/96 (122) 100 12/07/19 07:01 100 21 100 12/07/19 07:00 100 21 159/87 (111) 100 12/07/19 07:00 159/81 12/07/19 07:00 21 Mechanical Ventilator 100 12/07/19 06:45 99 21 162/84 (110) 100 12/07/19 06:30 149/87 12/07/19 06:30 97 20 149/87 (107) 100 12/07/19 06:15 96 21 153/93 (113) 100 12/07/19 06:00 97.8 101 22 160/88 (112) 100 12/07/19 06:00 160/88 12/07/19 06:00 21 Mechanical Ventilator 100 12/07/19 05:45 102 23 142/77 (98) 97 12/07/19 05:45 142/77 12/07/19 05:37 136/81 12/07/19 05:30 108 21 129/79 (96) 96 12/07/19 05:25 108 21 129/79 (96) 96 12/07/19 05:15 110 21 134/81 (98) 96 12/07/19 05:00 128/74 12/07/19 05:00 21 Mechanical Ventilator 100 12/07/19 05:00 113 21 128/74 (92) 97 12/07/19 04:45 113 21 128/74 (92) 97 12/07/19 04:30 115 21 129/78 (95) 97 12/07/19 04:15 115 21 124/72 (89) 97 12/07/19 04:00 119 12/07/19 04:00 100 12/07/19 04:00 Mechanical Ventilator 12/07/19 04:00 119/74 12/07/19 04:00 21 Mechanical Ventilator 100 12/07/19 04:00 98.8 116 21 119/74 (89) 98 12/07/19 03:46 105 21 100 12/07/19 03:45 117 21 119/69 (86) 99 12/07/19 03:30 117 21 120/69 (86) 99 12/07/19 03:15 118 21 96/62 (73) 100 12/07/19 03:00 119 20 127/71 (89) 100 12/07/19 03:00 127/71 12/07/19 03:00 20 Mechanical Ventilator 100 12/07/19 02:45 118 22 124/74 (91) 100 12/07/19 02:30 99.5 118 21 120/72 (88) 100 12/07/19 02:15 120 20 127/71 (89) 100 12/07/19 02:00 118 21 125/70 (88) 100 12/07/19 02:00 125/70 12/07/19 02:00 20 Mechanical Ventilator 100 12/07/19 01:45 119 20 124/71 (88) 100 12/07/19 01:30 118 21 128/74 (92) 100 12/07/19 01:15 118 21 130/75 (93) 100 12/07/19 01:00 117 20 130/73 (92) 100 12/07/19 01:00 130/73 12/07/19 01:00 20 Mechanical Ventilator 100 12/07/19 00:45 117 20 134/74 (94) 100 12/07/19 00:30 115 20 127/72 (90) 100 12/07/19 00:15 114 20 126/69 (88) 100 12/07/19 00:00 106 12/07/19 00:00 131/71 12/07/19 00:00 20 Mechanical Ventilator 100 12/07/19 00:00 Mechanical Ventilator 12/07/19 00:00 96.9 111 20 131/71 (91) 100 12/06/19 23:30 106 20 142/80 (100) 100 12/06/19 23:16 20 Mechanical Ventilator 100 12/06/19 23:15 105 20 140/76 (97) 100 12/06/19 23:00 145/77 12/06/19 23:00 20 Mechanical Ventilator 100 12/06/19 23:00 97.0 105 20 145/77 (99) 100 12/06/19 22:45 103 20 136/78 (97) 100 12/06/19 22:30 98 20 146/88 (107) 100 12/06/19 22:15 98 20 143/88 (106) 99 12/06/19 22:00 136/80 12/06/19 22:00 20 Mechanical Ventilator 100 12/06/19 22:00 99 20 136/80 (98) 97 12/06/19 21:45 102 20 111/68 (82) 97 12/06/19 21:30 106 20 103/69 (80) 95 12/06/19 21:15 109 20 100/61 (74) 95 12/06/19 21:00 112 20 100/62 (75) 93 12/06/19 21:00 100/62 12/06/19 21:00 19 Mechanical Ventilator 100 12/06/19 20:45 115 20 87/55 (66) 93 12/06/19 20:30 116 20 84/57 (66) 93 12/06/19 20:15 123 20 82/53 (63) 95 12/06/19 20:00 102.0 125 20 84/51 (62) 95 12/06/19 20:00 100 12/06/19 20:00 128 12/06/19 20:00 84/51 12/06/19 20:00 19 Mechanical Ventilator 100 12/06/19 20:00 Mechanical Ventilator 12/06/19 19:47 104.1 12/06/19 19:45 129 21 99/55 (70) 98 12/06/19 19:30 129 22 96/61 (73) 98 12/06/19 19:22 129 23 100 12/06/19 19:15 105/60 12/06/19 19:15 128 22 104/58 (73) 98 12/06/19 19:00 133 27 122/66 (84) 100 12/06/19 19:00 122/69 12/06/19 19:00 25 Mechanical Ventilator 100 12/06/19 18:45 130 24 122/69 (86) 100 12/06/19 18:30 127 25 64/33 (43) 99 12/06/19 18:15 127 24 64/32 (43) 100 12/06/19 18:00 90/50 12/06/19 18:00 26 Mechanical Ventilator 100 12/06/19 18:00 128 22 67/38 (48) 100 12/06/19 17:45 130 21 104/60 (75) 100 12/06/19 17:30 129 22 104/61 (75) 100 12/06/19 17:15 130 20 106/59 (75) 100 12/06/19 17:00 130 21 103/62 (76) 100 12/06/19 17:00 103/62 12/06/19 17:00 25 Mechanical Ventilator 100 12/06/19 16:45 130 21 103/59 (74) 100 12/06/19 16:36 130 20 100 12/06/19 16:30 131 19 104/64 (77) 100 12/06/19 16:15 131 20 108/60 (76) 100 12/06/19 16:00 126 12/06/19 16:00 105.6 131 20 111/62 (78) 100 12/06/19 16:00 111/62 12/06/19 16:00 24 Mechanical Ventilator 100 12/06/19 16:00 Mechanical Ventilator 12/06/19 16:00 100 12/06/19 15:45 130 20 114/63 (80) 100 12/06/19 15:30 130 20 116/60 (78) 100 12/06/19 15:15 129 21 117/61 (79) 100 12/06/19 15:10 102.9 12/06/19 15:00 129 20 120/66 (84) 100 12/06/19 15:00 120/66 12/06/19 15:00 26 Mechanical Ventilator 100 12/06/19 14:53 122 23 100 12/06/19 14:45 131 20 121/66 (84) 100 12/06/19 14:35 130 20 115/67 (83) 100 12/06/19 14:30 131 20 123/65 (84) 100 12/06/19 14:15 131 20 118/68 (85) 100 12/06/19 14:00 126/64 12/06/19 14:00 26 Mechanical Ventilator 100 12/06/19 14:00 131 20 126/64 (84) 100 12/06/19 13:45 132 20 124/68 (86) 100 12/06/19 13:30 133 19 129/68 (88) 100 12/06/19 13:15 133 23 130/65 (86) 100 12/06/19 13:00 130 20 113/60 (77) 100 12/06/19 13:00 113/60 12/06/19 13:00 26 Mechanical Ventilator 100 12/06/19 12:40 131 20 112/61 (78) 100 12/06/19 12:30 131 20 113/63 (80) 100 12/06/19 12:15 132 20 111/60 (77) 100 12/06/19 12:00 102.6 133 20 113/61 (78) 100 12/06/19 12:00 131 12/06/19 12:00 113/61 12/06/19 12:00 25 Mechanical Ventilator 100 12/06/19 12:00 100 12/06/19 12:00 Mechanical Ventilator 12/06/19 11:55 133 20 113/61 (78) 100 12/06/19 11:45 133 21 114/58 (76) 100 Intake and Output 12/06/19 12/07/19 19:00 07:00 Intake Total 1353.78 ml 1269.052 ml Output Total 0 ml 10 ml Balance 1353.78 ml 1259.052 ml IV Total 1353.78 ml 1269.052 ml Output Urine Total 0 ml 10 ml Hemodialysis UF 0 ml Microbiology Date/Time Source Procedure Growth Status 12/04/19 12:46 Blood Blood Culture - Preliminary NO GROWTH AFTER 48 HOURS Resulted 12/04/19 23:00 Sputum Gram Stain - Final Complete 12/04/19 23:00 Sputum Sputum Culture - Final NORMAL UPPER RESPIRATORY ALISIA PRESENT Complete 12/05/19 02:24 Urine,Clean Catch Urine Culture - Preliminary NO GROWTH Resulted Current Medications Medications (Trade) Dose Ordered Sig/Vicki Route PRN Reason Start Time Stop Time Status Last Admin Dose Admin Acetaminophen (Tylenol) 650 mg Q4H PRN NG Temp >100.5 12/06/19 14:15 01/05/20 14:14 12/06/19 14:40 Acetaminophen (Tylenol) 650 mg Q4H PRN RECTAL Mild Pain (Pain Scale 1-3) 12/04/19 11:45 01/03/20 11:44 12/06/19 19:17 Chlorhexidine Gluconate (Arely-Hex 2%) 1 applic DAILY@2000 TOPIC 12/05/19 20:00 03/04/20 19:59 12/06/19 20:31 Dextrose (Dextrose 50%) 25 ml Q30M PRN IV Hypoglycemia 11/29/19 14:15 02/27/20 14:14 Dextrose (Dextrose 50%) 50 ml Q30M PRN IV Hypoglycemia 11/29/19 14:15 02/27/20 14:14 Fentanyl Citrate 2500 mcg/Sodium Chloride 250 ml @ 0 mls/hr Q24H IVPB 12/06/19 02:00 12/13/19 01:59 12/06/19 23:16 Heparin Sodium (Porcine) (Heparin 5000 units/ml) 5,000 units EVERY 8 HOURS SUBQ 11/30/19 14:00 01/14/20 13:59 12/07/19 06:06 Heparin Sodium/ Sodium Chloride (Heparin 1000 units/500ml Premix) 1,000 unit ONCE PRN IV picc placement 12/05/19 12:15 12/07/19 12:14 Hydralazine HCl (Apresoline) 10 mg Q4H PRN IV For High Blood Pressure 11/29/19 15:15 02/27/20 15:14 Lidocaine HCl (Xylocaine 1% 30ml) 30 ml ONCE PRN INJ picc line placement 12/05/19 12:15 12/07/19 12:14 Linezolid 300 ml @ 300 mls/hr Q12HR IVPB 12/05/19 21:00 12/12/19 20:59 12/07/19 08:32 Meropenem 500 mg/ Sodium Chloride 55 ml @ 110 mls/hr EVERY 12 HOURS IVPB 12/05/19 21:00 12/10/19 20:59 12/07/19 08:31 Norepinephrine Bitartrate 16 mg/ Dextrose 566 ml @ 0 mls/hr Q24H IV 12/06/19 09:00 01/05/20 08:59 12/07/19 05:37 Ondansetron HCl (Zofran) 4 mg Q6H PRN IVP Nausea & Vomiting 11/29/19 14:15 12/29/19 14:14 Pantoprazole (Protonix) 40 mg DAILY IVP 11/30/19 12:15 12/30/19 12:14 12/07/19 08:32 Vasopressin 100 units/Sodium Chloride 100 ml @ 0 mls/hr Q24H IV 12/06/19 09:00 01/05/20 08:59 12/06/19 09:03 Laboratory Tests 12/07/19 04:00: Arterial Blood pH 7.124*L, Arterial Blood Partial Pressure CO2 83.7*H, Arterial Blood Partial Pressure O2 226.9H, Arterial Blood HCO3 26.8H, Arterial Blood Oxygen Saturation 99.0, Arterial Blood Base Excess -4.1L, Melecio Test Positive 12/07/19 04:57: White Blood Count 27.0*H, Red Blood Count 3.91L, Hemoglobin 11.9L, Hematocrit 36.6L, Mean Corpuscular Volume 93, Mean Corpuscular Hemoglobin 30.4, Mean Corpuscular Hemoglobin Concent 32.5, Red Cell Distribution Width 13.2, Platelet Count 242#, Mean Platelet Volume 7.6, Neutrophils (%) (Auto) , Lymphocytes (%) ( Auto) , Monocytes (%) (Auto) , Eosinophils (%) (Auto) , Basophils (%) (Auto) , Differential Total Cells Counted 100, Neutrophils % (Manual) 87H, Lymphocytes % (Manual) 8L, Monocytes % (Manual) 5, Eosinophils % (Manual) 0, Basophils % ( Manual) 0, Band Neutrophils 0, Platelet Estimate Adequate, Platelet Morphology Normal, Red Blood Cell Morphology Normal, Sodium Level 143, Potassium Level 5.2H , Chloride Level 103, Carbon Dioxide Level 28, Anion Gap 12, Blood Urea Nitrogen 56H, Creatinine 6.0H, Estimat Glomerular Filtration Rate 9.7, Glucose Level 171H, Calcium Level 7.0L, Total Bilirubin 1.5H, Direct Bilirubin 1.1H, Aspartate Amino Transf (AST/SGOT) 2065H, Alanine Aminotransferase (ALT/SGPT) 488H, Alkaline Phosphatase 99, Total Protein 6.7, Albumin 2.7L, Globulin 4.0, Albumin/Globulin Ratio 0.7L, Hepatitis A IgM Antibody [Pending], Hepatitis B Surface Antigen [Pending], Hepatitis B Core IgM Antibody [Pending], Hepatitis C Antibody [Pending] Height (Feet): 5 Height (Inches): 6.00 Weight (Pounds): 176 Objective stable no bleeding at prepuce barnes indwelling, marge urine Kai Berger MD Dec 07, 2019 11:36
--- NOTE | 2019-12-07 11:56 | Diagnostic Imaging Report ---
EXAM: XR Chest, 1 View CLINICAL HISTORY: ABN CHST TECHNIQUE: Frontal view of the chest. COMPARISON: Chest x-ray 12/06/19 1317 FINDINGS: Lungs: Diffuse bilateral airspace opacities, improved in the left lung and slightly worsened in the right lung. Pleural space: Unremarkable. No pneumothorax. Heart: Mild cardiomegaly. Mediastinum: Unremarkable. Bones/joints: Mild degenerative changes of spine. Tubes, lines and devices: Endotracheal tube and NG tube are stable. IMPRESSION: Diffuse bilateral airspace opacities, improved in the left lung and slightly worsened in the right lung.
--- NOTE | 2019-12-07 12:00 | NUR ---
NURSE NOTES: Pt turned and repositioned for comfort. Oral care done. No distress noted at this time.
--- NOTE | 2019-12-07 12:25 | Pulmonology Progress Note ---
Assessment/Plan Assessment/Plan IMPRESSION: 1. Bilateral pneumonia. 2. Positive COVID-19. 3. Respiratory failure. DISCUSSION: Intubated On AC 20; FiO2 100; PEEP 10; SaO2 95% Abd Xray shows mediastinal PTX Continue proning Switched to Fentanyl due to high triglycerides Continue proning as heart rate tolerates Saturations are better Too high risk for empiric bedside thoracostomy; discussed with Dr Roverto Lau prognosis I will follow carefully. Sushil Cortes M.D. Subjective ROS Limited/Unobtainable: No Interval Events: Intubated ; s/p proning yesterday Constitutional: Reports: fever, other - on vent, poorly responsive HEENT: Repors: no symptoms Respiratory: Reports: no symptoms Cardiovascular: Reports: no symptoms Gastrointestinal/Abdominal: Denies: nausea, vomiting Genitourinary: Reports: no symptoms Psychiatric: Reports: other - NA Skin: Denies: rash Musculoskeletal: Reports: other - NA Allergies: Coded Allergies: No Known Allergies (Unverified , 11/29/19) Objective Last 24 Hour Vital Signs Date Time Temp Pulse Resp B/P (MAP) Pulse Ox O2 Delivery O2 Flow Rate FiO2 12/07/19 12:00 127/79 12/07/19 12:00 22 Mechanical Ventilator 100 12/07/19 12:00 112 12/07/19 12:00 100 12/07/19 12:00 Mechanical Ventilator 12/07/19 12:00 98.3 114 20 139/76 (97) 96 12/07/19 11:30 112 20 138/81 (100) 97 12/07/19 11:03 112 22 100 12/07/19 11:00 130/81 12/07/19 11:00 22 Mechanical Ventilator 100 12/07/19 11:00 111 20 137/87 (104) 96 12/07/19 10:30 107 20 141/85 (103) 98 12/07/19 10:15 105 19 148/87 (107) 100 12/07/19 10:00 154/89 12/07/19 10:00 22 Mechanical Ventilator 100 12/07/19 10:00 97.0 108 19 154/89 (110) 100 12/07/19 09:45 107 19 164/91 (115) 100 12/07/19 09:30 107 20 154/94 (114) 100 12/07/19 09:15 107 20 141/76 (97) 100 12/07/19 09:00 139/74 12/07/19 09:00 22 Mechanical Ventilator 100 12/07/19 09:00 105 21 139/74 (95) 100 12/07/19 08:45 102 20 135/73 (93) 100 12/07/19 08:31 142/79 12/07/19 08:30 97 22 142/79 (100) 100 12/07/19 08:03 98 12/07/19 08:00 100 12/07/19 08:00 Mechanical Ventilator 12/07/19 08:00 96.0 98 23 166/89 (114) 100 12/07/19 08:00 166/89 12/07/19 08:00 22 Mechanical Ventilator 100 12/07/19 07:45 100 21 167/93 (117) 100 12/07/19 07:30 99 21 176/96 (122) 100 12/07/19 07:01 100 21 100 12/07/19 07:00 100 21 159/87 (111) 100 12/07/19 07:00 159/81 12/07/19 07:00 21 Mechanical Ventilator 100 12/07/19 06:45 99 21 162/84 (110) 100 12/07/19 06:30 149/87 12/07/19 06:30 97 20 149/87 (107) 100 12/07/19 06:15 96 21 153/93 (113) 100 12/07/19 06:00 97.8 101 22 160/88 (112) 100 12/07/19 06:00 160/88 12/07/19 06:00 21 Mechanical Ventilator 100 12/07/19 05:45 102 23 142/77 (98) 97 12/07/19 05:45 142/77 12/07/19 05:37 136/81 12/07/19 05:30 108 21 129/79 (96) 96 12/07/19 05:25 108 21 129/79 (96) 96 12/07/19 05:15 110 21 134/81 (98) 96 12/07/19 05:00 128/74 4/25/20 05:00 21 Mechanical Ventilator 100 12/07/19 05:00 113 21 128/74 (92) 97 12/07/19 04:45 113 21 128/74 (92) 97 12/07/19 04:30 115 21 129/78 (95) 97 12/07/19 04:15 115 21 124/72 (89) 97 12/07/19 04:00 119 12/07/19 04:00 100 12/07/19 04:00 Mechanical Ventilator 12/07/19 04:00 119/74 12/07/19 04:00 21 Mechanical Ventilator 100 12/07/19 04:00 98.8 116 21 119/74 (89) 98 12/07/19 03:46 105 21 100 12/07/19 03:45 117 21 119/69 (86) 99 12/07/19 03:30 117 21 120/69 (86) 99 12/07/19 03:15 118 21 96/62 (73) 100 12/07/19 03:00 119 20 127/71 (89) 100 12/07/19 03:00 127/71 12/07/19 03:00 20 Mechanical Ventilator 100 12/07/19 02:45 118 22 124/74 (91) 100 12/07/19 02:30 99.5 118 21 120/72 (88) 100 12/07/19 02:15 120 20 127/71 (89) 100 12/07/19 02:00 118 21 125/70 (88) 100 12/07/19 02:00 125/70 12/07/19 02:00 20 Mechanical Ventilator 100 12/07/19 01:45 119 20 124/71 (88) 100 12/07/19 01:30 118 21 128/74 (92) 100 12/07/19 01:15 118 21 130/75 (93) 100 12/07/19 01:00 117 20 130/73 (92) 100 12/07/19 01:00 130/73 12/07/19 01:00 20 Mechanical Ventilator 100 12/07/19 00:45 117 20 134/74 (94) 100 12/07/19 00:30 115 20 127/72 (90) 100 12/07/19 00:15 114 20 126/69 (88) 100 12/07/19 00:00 106 12/07/19 00:00 131/71 12/07/19 00:00 20 Mechanical Ventilator 100 12/07/19 00:00 Mechanical Ventilator 12/07/19 00:00 96.9 111 20 131/71 (91) 100 12/06/19 23:30 106 20 142/80 (100) 100 12/06/19 23:16 20 Mechanical Ventilator 100 12/06/19 23:15 105 20 140/76 (97) 100 12/06/19 23:00 145/77 12/06/19 23:00 20 Mechanical Ventilator 100 12/06/19 23:00 97.0 105 20 145/77 (99) 100 12/06/19 22:45 103 20 136/78 (97) 100 12/06/19 22:30 98 20 146/88 (107) 100 12/06/19 22:15 98 20 143/88 (106) 99 12/06/19 22:00 136/80 12/06/19 22:00 20 Mechanical Ventilator 100 12/06/19 22:00 99 20 136/80 (98) 97 12/06/19 21:45 102 20 111/68 (82) 97 12/06/19 21:30 106 20 103/69 (80) 95 12/06/19 21:15 109 20 100/61 (74) 95 12/06/19 21:00 112 20 100/62 (75) 93 12/06/19 21:00 100/62 12/06/19 21:00 19 Mechanical Ventilator 100 12/06/19 20:45 115 20 87/55 (66) 93 12/06/19 20:30 116 20 84/57 (66) 93 12/06/19 20:15 123 20 82/53 (63) 95 12/06/19 20:00 102.0 125 20 84/51 (62) 95 12/06/19 20:00 100 12/06/19 20:00 128 12/06/19 20:00 84/51 12/06/19 20:00 19 Mechanical Ventilator 100 12/06/19 20:00 Mechanical Ventilator 12/06/19 19:47 104.1 12/06/19 19:45 129 21 99/55 (70) 98 12/06/19 19:30 129 22 96/61 (73) 98 4/24/20 19:22 129 23 100 12/06/19 19:15 105/60 12/06/19 19:15 128 22 104/58 (73) 98 12/06/19 19:00 133 27 122/66 (84) 100 12/06/19 19:00 122/69 12/06/19 19:00 25 Mechanical Ventilator 100 12/06/19 18:45 130 24 122/69 (86) 100 12/06/19 18:30 127 25 64/33 (43) 99 12/06/19 18:15 127 24 64/32 (43) 100 12/06/19 18:00 90/50 12/06/19 18:00 26 Mechanical Ventilator 100 12/06/19 18:00 128 22 67/38 (48) 100 12/06/19 17:45 130 21 104/60 (75) 100 12/06/19 17:30 129 22 104/61 (75) 100 12/06/19 17:15 130 20 106/59 (75) 100 12/06/19 17:00 130 21 103/62 (76) 100 12/06/19 17:00 103/62 12/06/19 17:00 25 Mechanical Ventilator 100 12/06/19 16:45 130 21 103/59 (74) 100 12/06/19 16:36 130 20 100 12/06/19 16:30 131 19 104/64 (77) 100 12/06/19 16:15 131 20 108/60 (76) 100 12/06/19 16:00 126 12/06/19 16:00 105.6 131 20 111/62 (78) 100 12/06/19 16:00 111/62 12/06/19 16:00 24 Mechanical Ventilator 100 12/06/19 16:00 Mechanical Ventilator 12/06/19 16:00 100 12/06/19 15:45 130 20 114/63 (80) 100 12/06/19 15:30 130 20 116/60 (78) 100 12/06/19 15:15 129 21 117/61 (79) 100 12/06/19 15:10 102.9 12/06/19 15:00 129 20 120/66 (84) 100 12/06/19 15:00 120/66 12/06/19 15:00 26 Mechanical Ventilator 100 12/06/19 14:53 122 23 100 12/06/19 14:45 131 20 121/66 (84) 100 12/06/19 14:35 130 20 115/67 (83) 100 12/06/19 14:30 131 20 123/65 (84) 100 12/06/19 14:15 131 20 118/68 (85) 100 12/06/19 14:00 126/64 12/06/19 14:00 26 Mechanical Ventilator 100 12/06/19 14:00 131 20 126/64 (84) 100 12/06/19 13:45 132 20 124/68 (86) 100 12/06/19 13:30 133 19 129/68 (88) 100 12/06/19 13:15 133 23 130/65 (86) 100 12/06/19 13:00 130 20 113/60 (77) 100 12/06/19 13:00 113/60 12/06/19 13:00 26 Mechanical Ventilator 100 12/06/19 12:40 131 20 112/61 (78) 100 12/06/19 12:30 131 20 113/63 (80) 100 Intake and Output 12/06/19 12/07/19 19:00 07:00 Intake Total 1353.78 ml 1269.052 ml Output Total 0 ml 10 ml Balance 1353.78 ml 1259.052 ml IV Total 1353.78 ml 1269.052 ml Output Urine Total 0 ml 10 ml Hemodialysis UF 0 ml General Appearance: other - on vent and pressors HEENT: normocephalic, atraumatic, other - oral - intubated Respiratory/Chest: chest wall non-tender, lungs clear Cardiovascular: normal peripheral pulses, normal rate Abdomen: normal bowel sounds, soft, non tender, no organomegaly Genitourinary: other Extremities: no cyanosis Skin: no rash Neurologic/Psychiatric: motor weakness, other - lethargic Lymphatic: no neck adenopathy Musculoskeletal: no effusion Microbiology Date/Time Source Procedure Growth Status 12/04/19 12:46 Blood Blood Culture - Preliminary NO GROWTH AFTER 48 HOURS Resulted 12/04/19 12:46 Blood Blood Culture - Preliminary Resulted 12/04/19 23:00 Sputum Gram Stain - Final Complete 12/04/19 23:00 Sputum Sputum Culture - Final NORMAL UPPER RESPIRATORY ALISIA PRESENT Complete 12/05/19 02:24 Urine,Clean Catch Urine Culture - Preliminary NO GROWTH Resulted Laboratory Tests 12/07/19 04:00: Arterial Blood pH 7.124*L, Arterial Blood Partial Pressure CO2 83.7*H, Arterial Blood Partial Pressure O2 226.9H, Arterial Blood HCO3 26.8H, Arterial Blood Oxygen Saturation 99.0, Arterial Blood Base Excess -4.1L, Melecio Test Positive 12/07/19 04:57: White Blood Count 27.0*H, Red Blood Count 3.91L, Hemoglobin 11.9L, Hematocrit 36.6L, Mean Corpuscular Volume 93, Mean Corpuscular Hemoglobin 30.4, Mean Corpuscular Hemoglobin Concent 32.5, Red Cell Distribution Width 13.2, Platelet Count 242#, Mean Platelet Volume 7.6, Neutrophils (%) (Auto) , Lymphocytes (%) ( Auto) , Monocytes (%) (Auto) , Eosinophils (%) (Auto) , Basophils (%) (Auto) , Differential Total Cells Counted 100, Neutrophils % (Manual) 87H, Lymphocytes % (Manual) 8L, Monocytes % (Manual) 5, Eosinophils % (Manual) 0, Basophils % ( Manual) 0, Band Neutrophils 0, Platelet Estimate Adequate, Platelet Morphology Normal, Red Blood Cell Morphology Normal, Sodium Level 143, Potassium Level 5.2H , Chloride Level 103, Carbon Dioxide Level 28, Anion Gap 12, Blood Urea Nitrogen 56H, Creatinine 6.0H, Estimat Glomerular Filtration Rate 9.7, Glucose Level 171H, Calcium Level 7.0L, Total Bilirubin 1.5H, Direct Bilirubin 1.1H, Aspartate Amino Transf (AST/SGOT) 2065H, Alanine Aminotransferase (ALT/SGPT) 488H, Alkaline Phosphatase 99, Total Protein 6.7, Albumin 2.7L, Globulin 4.0, Albumin/Globulin Ratio 0.7L, Hepatitis A IgM Antibody [Pending], Hepatitis B Surface Antigen [Pending], Hepatitis B Core IgM Antibody [Pending], Hepatitis C Antibody [Pending] Current Medications Medications (Trade) Dose Ordered Sig/Vicki Route PRN Reason Start Time Stop Time Status Last Admin Dose Admin Acetaminophen (Tylenol) 650 mg Q4H PRN NG Temp >100.5 12/06/19 14:15 01/05/20 14:14 12/06/19 14:40 Acetaminophen (Tylenol) 650 mg Q4H PRN RECTAL Mild Pain (Pain Scale 1-3) 12/04/19 11:45 01/03/20 11:44 12/06/19 19:17 Chlorhexidine Gluconate (Arely-Hex 2%) 1 applic DAILY@2000 TOPIC 12/05/19 20:00 03/04/20 19:59 12/06/19 20:31 Dextrose (Dextrose 50%) 25 ml Q30M PRN IV Hypoglycemia 11/29/19 14:15 02/27/20 14:14 Dextrose (Dextrose 50%) 50 ml Q30M PRN IV Hypoglycemia 11/29/19 14:15 02/27/20 14:14 Fentanyl Citrate 2500 mcg/Sodium Chloride 250 ml @ 0 mls/hr Q24H IVPB 12/06/19 02:00 12/13/19 01:59 12/06/19 23:16 Heparin Sodium (Porcine) (Heparin 5000 units/ml) 5,000 units EVERY 8 HOURS SUBQ 11/30/19 14:00 01/14/20 13:59 12/07/19 06:06 Hydralazine HCl (Apresoline) 10 mg Q4H PRN IV For High Blood Pressure 11/29/19 15:15 02/27/20 15:14 Linezolid 300 ml @ 300 mls/hr Q12HR IVPB 12/05/19 21:00 12/12/19 20:59 12/07/19 08:32 Meropenem 500 mg/ Sodium Chloride 55 ml @ 110 mls/hr EVERY 12 HOURS IVPB 12/05/19 21:00 12/10/19 20:59 12/07/19 08:31 Norepinephrine Bitartrate 16 mg/ Dextrose 566 ml @ 0 mls/hr Q24H IV 12/06/19 09:00 01/05/20 08:59 12/07/19 05:37 Ondansetron HCl (Zofran) 4 mg Q6H PRN IVP Nausea & Vomiting 11/29/19 14:15 12/29/19 14:14 Pantoprazole (Protonix) 40 mg DAILY IVP 11/30/19 12:15 12/30/19 12:14 12/07/19 08:32 Vasopressin 100 units/Sodium Chloride 100 ml @ 0 mls/hr Q24H IV 12/06/19 09:00 5/24/20 08:59 12/06/19 09:03 Sushil Cortes MD Dec 07, 2019 12:24
--- NOTE | 2019-12-07 12:55 | NUR ---
NURSE NOTES:WOUND CARE NOTES:Pt presents with moisture Intertrigo cleft of buttock. 4 cm elongated slit that is moist and erythematous noted. Surrounding hypopigmentation of R and L gluteal cheeks. Tx.plan: Apply Moisture Barrier Paste to cleft of buttocks with each perineal care. Apply moisture Barrier Paste to Sacrum. Cover with Optifoam drsg. Change every 7 days and prn Apply Cavilon Skin Barrier to both heels. Cover each heel with Optifoam drsg. Change every 7 days and prn. Reposition at least every 2hours or as tolerated. Off-load heels with pillow.
[2019-12-07 13:15] LABS: ANION GAP 14 mmol/L (5-15); BLOOD UREA NITROGEN 68 mg/dL (7-18); CALCIUM 7.2 MG/DL (8.5-10.1); CARBON DIOXIDE 26 MMOL/L (21-32); CHLORIDE 100 MMOL/L (98-107); CREATININE 6.6 MG/DL (0.55-1.30); SODIUM 140 MMOL/L (136-145)
--- NOTE | 2019-12-07 13:34 | GI Progress Note ---
Assessment/Plan Problems: (1) Suspected COVID-19 virus infection ICD Codes: R68.89 - Other general symptoms and signs SNOMED: 556958194 (2) Elevated LFTs ICD Codes: R79.89 - Other specified abnormal findings of blood chemistry SNOMED: 603484045, [id number] Status: unchanged Status Narrative Discussed with Dr. Rdz. Assessment/Plan elevated LFTS most likely due to COVID repeat labs in am hepatitis panel abd us The patient was seen and examined at bedside and all new and available data was reviewed in the patients chart. I agree with the above findings, impression and plan. (Patient seen earlier today. Signature stamp does not reflect patient encounter time.). - João Rdz MD Subjective Subjective limited Objective Last 24 Hour Vital Signs Date Time Temp Pulse Resp B/P (MAP) Pulse Ox O2 Delivery O2 Flow Rate FiO2 12/07/19 12:00 127/79 12/07/19 12:00 22 Mechanical Ventilator 100 12/07/19 12:00 112 12/07/19 12:00 100 12/07/19 12:00 Mechanical Ventilator 12/07/19 12:00 98.3 114 20 139/76 (97) 96 12/07/19 11:30 112 20 138/81 (100) 97 12/07/19 11:03 112 22 100 12/07/19 11:00 130/81 12/07/19 11:00 22 Mechanical Ventilator 100 12/07/19 11:00 111 20 137/87 (104) 96 12/07/19 10:30 107 20 141/85 (103) 98 12/07/19 10:15 105 19 148/87 (107) 100 12/07/19 10:00 154/89 12/07/19 10:00 22 Mechanical Ventilator 100 12/07/19 10:00 97.0 108 19 154/89 (110) 100 12/07/19 09:45 107 19 164/91 (115) 100 12/07/19 09:30 107 20 154/94 (114) 100 12/07/19 09:15 107 20 141/76 (97) 100 12/07/19 09:00 139/74 12/07/19 09:00 22 Mechanical Ventilator 100 12/07/19 09:00 105 21 139/74 (95) 100 12/07/19 08:45 102 20 135/73 (93) 100 12/07/19 08:31 142/79 12/07/19 08:30 97 22 142/79 (100) 100 12/07/19 08:03 98 12/07/19 08:00 100 12/07/19 08:00 Mechanical Ventilator 12/07/19 08:00 96.0 98 23 166/89 (114) 100 12/07/19 08:00 166/89 12/07/19 08:00 22 Mechanical Ventilator 100 12/07/19 07:45 100 21 167/93 (117) 100 12/07/19 07:30 99 21 176/96 (122) 100 12/07/19 07:01 100 21 100 12/07/19 07:00 100 21 159/87 (111) 100 12/07/19 07:00 159/81 12/07/19 07:00 21 Mechanical Ventilator 100 12/07/19 06:45 99 21 162/84 (110) 100 12/07/19 06:30 149/87 12/07/19 06:30 97 20 149/87 (107) 100 12/07/19 06:15 96 21 153/93 (113) 100 12/07/19 06:00 97.8 101 22 160/88 (112) 100 12/07/19 06:00 160/88 12/07/19 06:00 21 Mechanical Ventilator 100 12/07/19 05:45 102 23 142/77 (98) 97 12/07/19 05:45 142/77 12/07/19 05:37 136/81 12/07/19 05:30 108 21 129/79 (96) 96 12/07/19 05:25 108 21 129/79 (96) 96 12/07/19 05:15 110 21 134/81 (98) 96 12/07/19 05:00 128/74 12/07/19 05:00 21 Mechanical Ventilator 100 12/07/19 05:00 113 21 128/74 (92) 97 12/07/19 04:45 113 21 128/74 (92) 97 12/07/19 04:30 115 21 129/78 (95) 97 12/07/19 04:15 115 21 124/72 (89) 97 12/07/19 04:00 119 12/07/19 04:00 100 12/07/19 04:00 Mechanical Ventilator 12/07/19 04:00 119/74 12/07/19 04:00 21 Mechanical Ventilator 100 12/07/19 04:00 98.8 116 21 119/74 (89) 98 12/07/19 03:46 105 21 100 12/07/19 03:45 117 21 119/69 (86) 99 12/07/19 03:30 117 21 120/69 (86) 99 12/07/19 03:15 118 21 96/62 (73) 100 12/07/19 03:00 119 20 127/71 (89) 100 12/07/19 03:00 127/71 12/07/19 03:00 20 Mechanical Ventilator 100 12/07/19 02:45 118 22 124/74 (91) 100 12/07/19 02:30 99.5 118 21 120/72 (88) 100 12/07/19 02:15 120 20 127/71 (89) 100 12/07/19 02:00 118 21 125/70 (88) 100 12/07/19 02:00 125/70 12/07/19 02:00 20 Mechanical Ventilator 100 12/07/19 01:45 119 20 124/71 (88) 100 12/07/19 01:30 118 21 128/74 (92) 100 12/07/19 01:15 118 21 130/75 (93) 100 12/07/19 01:00 117 20 130/73 (92) 100 12/07/19 01:00 130/73 12/07/19 01:00 20 Mechanical Ventilator 100 12/07/19 00:45 117 20 134/74 (94) 100 12/07/19 00:30 115 20 127/72 (90) 100 12/07/19 00:15 114 20 126/69 (88) 100 12/07/19 00:00 106 12/07/19 00:00 131/71 12/07/19 00:00 20 Mechanical Ventilator 100 12/07/19 00:00 Mechanical Ventilator 12/07/19 00:00 96.9 111 20 131/71 (91) 100 12/06/19 23:30 106 20 142/80 (100) 100 12/06/19 23:16 20 Mechanical Ventilator 100 12/06/19 23:15 105 20 140/76 (97) 100 12/06/19 23:00 145/77 12/06/19 23:00 20 Mechanical Ventilator 100 12/06/19 23:00 97.0 105 20 145/77 (99) 100 12/06/19 22:45 103 20 136/78 (97) 100 12/06/19 22:30 98 20 146/88 (107) 100 12/06/19 22:15 98 20 143/88 (106) 99 12/06/19 22:00 136/80 12/06/19 22:00 20 Mechanical Ventilator 100 12/06/19 22:00 99 20 136/80 (98) 97 12/06/19 21:45 102 20 111/68 (82) 97 12/06/19 21:30 106 20 103/69 (80) 95 12/06/19 21:15 109 20 100/61 (74) 95 12/06/19 21:00 112 20 100/62 (75) 93 12/06/19 21:00 100/62 12/06/19 21:00 19 Mechanical Ventilator 100 12/06/19 20:45 115 20 87/55 (66) 93 12/06/19 20:30 116 20 84/57 (66) 93 12/06/19 20:15 123 20 82/53 (63) 95 12/06/19 20:00 102.0 125 20 84/51 (62) 95 12/06/19 20:00 100 12/06/19 20:00 128 12/06/19 20:00 84/51 12/06/19 20:00 19 Mechanical Ventilator 100 12/06/19 20:00 Mechanical Ventilator 12/06/19 19:47 104.1 12/06/19 19:45 129 21 99/55 (70) 98 12/06/19 19:30 129 22 96/61 (73) 98 12/06/19 19:22 129 23 100 12/06/19 19:15 105/60 12/06/19 19:15 128 22 104/58 (73) 98 12/06/19 19:00 133 27 122/66 (84) 100 12/06/19 19:00 122/69 12/06/19 19:00 25 Mechanical Ventilator 100 12/06/19 18:45 130 24 122/69 (86) 100 12/06/19 18:30 127 25 64/33 (43) 99 12/06/19 18:15 127 24 64/32 (43) 100 12/06/19 18:00 90/50 12/06/19 18:00 26 Mechanical Ventilator 100 12/06/19 18:00 128 22 67/38 (48) 100 12/06/19 17:45 130 21 104/60 (75) 100 12/06/19 17:30 129 22 104/61 (75) 100 12/06/19 17:15 130 20 106/59 (75) 100 12/06/19 17:00 130 21 103/62 (76) 100 12/06/19 17:00 103/62 12/06/19 17:00 25 Mechanical Ventilator 100 12/06/19 16:45 130 21 103/59 (74) 100 12/06/19 16:36 130 20 100 12/06/19 16:30 131 19 104/64 (77) 100 12/06/19 16:15 131 20 108/60 (76) 100 12/06/19 16:00 126 12/06/19 16:00 105.6 131 20 111/62 (78) 100 12/06/19 16:00 111/62 12/06/19 16:00 24 Mechanical Ventilator 100 12/06/19 16:00 Mechanical Ventilator 12/06/19 16:00 100 12/06/19 15:45 130 20 114/63 (80) 100 12/06/19 15:30 130 20 116/60 (78) 100 12/06/19 15:15 129 21 117/61 (79) 100 12/06/19 15:10 102.9 12/06/19 15:00 129 20 120/66 (84) 100 12/06/19 15:00 120/66 12/06/19 15:00 26 Mechanical Ventilator 100 12/06/19 14:53 122 23 100 12/06/19 14:45 131 20 121/66 (84) 100 12/06/19 14:35 130 20 115/67 (83) 100 12/06/19 14:30 131 20 123/65 (84) 100 12/06/19 14:15 131 20 118/68 (85) 100 12/06/19 14:00 126/64 12/06/19 14:00 26 Mechanical Ventilator 100 12/06/19 14:00 131 20 126/64 (84) 100 12/06/19 13:45 132 20 124/68 (86) 100 Intake and Output 12/06/19 12/07/19 19:00 07:00 Intake Total 1353.78 ml 1269.052 ml Output Total 0 ml 10 ml Balance 1353.78 ml 1259.052 ml IV Total 1353.78 ml 1269.052 ml Output Urine Total 0 ml 10 ml Hemodialysis UF 0 ml Laboratory Tests Test 12/07/19 04:00 12/07/19 04:57 12/07/19 12:35 Arterial Blood pH 7.124 (7.350-7.450) Arterial Blood Partial Pressure CO2 83.7 mmHg (35.0-45.0) *H Arterial Blood Partial Pressure O2 226.9 mmHg (75.0-100.0) H Arterial Blood HCO3 26.8 mmol/L (22.0-26.0) H Arterial Blood Oxygen Saturation 99.0 % (95-100) Arterial Blood Base Excess -4.1 (-2-2) L Melecio Test Positive White Blood Count 27.0 K/UL (4.8-10.8) *H Red Blood Count 3.91 M/UL (4.70-6.10) L Hemoglobin 11.9 G/DL (14.2-18.0) L Hematocrit 36.6 % (42.0-52.0) L Mean Corpuscular Volume 93 FL (80-99) Mean Corpuscular Hemoglobin 30.4 PG (27.0-31.0) Mean Corpuscular Hemoglobin Concent 32.5 G/DL (32.0-36.0) Red Cell Distribution Width 13.2 % (11.6-14.8) Platelet Count 242 K/UL (150-450) # Mean Platelet Volume 7.6 FL (6.5-10.1) Neutrophils (%) (Auto) % (45.0-75.0) Lymphocytes (%) (Auto) % (20.0-45.0) Monocytes (%) (Auto) % (1.0-10.0) Eosinophils (%) (Auto) % (0.0-3.0) Basophils (%) (Auto) % (0.0-2.0) Differential Total Cells Counted 100 Neutrophils % (Manual) 87 % (45-75) H Lymphocytes % (Manual) 8 % (20-45) L Monocytes % (Manual) 5 % (1-10) Eosinophils % (Manual) 0 % (0-3) Basophils % (Manual) 0 % (0-2) Band Neutrophils 0 % (0-8) Platelet Estimate Adequate Platelet Morphology Normal Red Blood Cell Morphology Normal Sodium Level 143 MMOL/L (136-145) 140 MMOL/L (136-145) Potassium Level 5.2 MMOL/L (3.5-5.1) H 5.0 MMOL/L (3.5-5.1) Chloride Level 103 MMOL/L (98-107) 100 MMOL/L (98-107) Carbon Dioxide Level 28 MMOL/L (21-32) 26 MMOL/L (21-32) Anion Gap 12 mmol/L (5-15) 14 mmol/L (5-15) Blood Urea Nitrogen 56 mg/dL (7-18) H 68 mg/dL (7-18) H Creatinine 6.0 MG/DL (0.55-1.30) H 6.6 MG/DL (0.55-1.30) H Estimat Glomerular Filtration Rate 9.7 mL/min (>60) 8.7 mL/min (>60) Glucose Level 171 MG/DL (74-106) H 139 MG/DL (74-106) H Calcium Level 7.0 MG/DL (8.5-10.1) L 7.2 MG/DL (8.5-10.1) L Total Bilirubin 1.5 MG/DL (0.2-1.0) H Direct Bilirubin 1.1 MG/DL (0.0-0.3) H Aspartate Amino Transf (AST/SGOT) 2065 U/L (15-37) H Alanine Aminotransferase (ALT/SGPT) 488 U/L (12-78) H Alkaline Phosphatase 99 U/L (46-116) Total Protein 6.7 G/DL (6.4-8.2) Albumin 2.7 G/DL (3.4-5.0) L Globulin 4.0 g/dL Albumin/Globulin Ratio 0.7 (1.0-2.7) L Hepatitis A IgM Antibody Pending Hepatitis B Surface Antigen Pending Hepatitis B Core IgM Antibody Pending Hepatitis C Antibody Pending Height (Feet): 5 Height (Inches): 6.00 Weight (Pounds): 176 General Appearance: WD/WN, no apparent distress, alert Cardiovascular: normal rate Respiratory/Chest: normal breath sounds, no respiratory distress Abdominal Exam: normal bowel sounds, non tender, soft Extremities: normal range of motion, non-tender Ronda Gordillo NP Dec 07, 2019 13:34
--- NOTE | 2019-12-07 14:00 | NUR ---
NURSE NOTES: Pt temp 101.0. Cooling measures initiated. Pt on a cooling blanket. Will continue to monitor.
--- NOTE | 2019-12-07 15:32 | Nephrology Progress Note ---
Assessment/Plan Plan #ALBARO- concerns for developing ischemic ATN in the setting of sepsis- r/o vanco toxicity - r/o COVID nephropathy - now with likely ATN #Hyperkalemia due to renal insuffiency - exacerbated by acidosis #COID sepsis #COVID pneumonia #hypoxemic respiratary failure #HTN- now in shock #mediastinal PTX - next HD tomorrow - order placed - GOALS of care discussion!! - hold IVF - concerned for volume overload in the setting of progressive oliguria - continue pressor support to maintain MAP > 65- continue vaso and levo - continue fentanyl dip - consider actemra - abx per ID- on katie and linezolid - vent management per pulm -Abd Xray shows mediastinal PTX - too high risk for thorocotomy Subjective ROS Limited/Unobtainable: Yes Subjective s/p HD last night remains on levo and vaso drips Abd Xray shows mediastinal PTX On fentanyl drip Objective Objective Last 24 Hour Vital Signs Date Time Temp Pulse Resp B/P (MAP) Pulse Ox O2 Delivery O2 Flow Rate FiO2 12/07/19 15:00 117 27 128/72 (90) 100 12/07/19 14:30 119 26 132/73 (92) 97 12/07/19 14:00 117 23 128/75 (92) 96 12/07/19 14:00 128/75 12/07/19 14:00 23 Mechanical Ventilator 100 12/07/19 13:30 116 20 126/71 (89) 97 12/07/19 13:00 115 20 129/75 (93) 98 12/07/19 13:00 129/75 12/07/19 13:00 23 Mechanical Ventilator 100 12/07/19 12:30 114 20 129/78 (95) 98 12/07/19 12:00 127/79 12/07/19 12:00 22 Mechanical Ventilator 100 12/07/19 12:00 112 12/07/19 12:00 100 12/07/19 12:00 Mechanical Ventilator 12/07/19 12:00 98.3 114 20 139/76 (97) 96 12/07/19 11:30 112 20 138/81 (100) 97 12/07/19 11:03 112 22 100 12/07/19 11:00 130/81 12/07/19 11:00 22 Mechanical Ventilator 100 12/07/19 11:00 111 20 137/87 (104) 96 12/07/19 10:30 107 20 141/85 (103) 98 12/07/19 10:15 105 19 148/87 (107) 100 12/07/19 10:00 154/89 12/07/19 10:00 22 Mechanical Ventilator 100 12/07/19 10:00 97.0 108 19 154/89 (110) 100 12/07/19 09:45 107 19 164/91 (115) 100 12/07/19 09:30 107 20 154/94 (114) 100 12/07/19 09:15 107 20 141/76 (97) 100 12/07/19 09:00 139/74 12/07/19 09:00 22 Mechanical Ventilator 100 12/07/19 09:00 105 21 139/74 (95) 100 12/07/19 08:45 102 20 135/73 (93) 100 12/07/19 08:31 142/79 12/07/19 08:30 97 22 142/79 (100) 100 12/07/19 08:03 98 12/07/19 08:00 100 12/07/19 08:00 Mechanical Ventilator 12/07/19 08:00 96.0 98 23 166/89 (114) 100 12/07/19 08:00 166/89 12/07/19 08:00 22 Mechanical Ventilator 100 12/07/19 07:45 100 21 167/93 (117) 100 12/07/19 07:30 99 21 176/96 (122) 100 12/07/19 07:01 100 21 100 12/07/19 07:00 100 21 159/87 (111) 100 12/07/19 07:00 159/81 12/07/19 07:00 21 Mechanical Ventilator 100 12/07/19 06:45 99 21 162/84 (110) 100 12/07/19 06:30 149/87 12/07/19 06:30 97 20 149/87 (107) 100 12/07/19 06:15 96 21 153/93 (113) 100 12/07/19 06:00 97.8 101 22 160/88 (112) 100 12/07/19 06:00 160/88 12/07/19 06:00 21 Mechanical Ventilator 100 12/07/19 05:45 102 23 142/77 (98) 97 12/07/19 05:45 142/77 12/07/19 05:37 136/81 12/07/19 05:30 108 21 129/79 (96) 96 12/07/19 05:25 108 21 129/79 (96) 96 12/07/19 05:15 110 21 134/81 (98) 96 12/07/19 05:00 128/74 12/07/19 05:00 21 Mechanical Ventilator 100 12/07/19 05:00 113 21 128/74 (92) 97 12/07/19 04:45 113 21 128/74 (92) 97 12/07/19 04:30 115 21 129/78 (95) 97 12/07/19 04:15 115 21 124/72 (89) 97 12/07/19 04:00 119 12/07/19 04:00 100 12/07/19 04:00 Mechanical Ventilator 12/07/19 04:00 119/74 12/07/19 04:00 21 Mechanical Ventilator 100 12/07/19 04:00 98.8 116 21 119/74 (89) 98 12/07/19 03:46 105 21 100 12/07/19 03:45 117 21 119/69 (86) 99 12/07/19 03:30 117 21 120/69 (86) 99 12/07/19 03:15 118 21 96/62 (73) 100 12/07/19 03:00 119 20 127/71 (89) 100 12/07/19 03:00 127/71 12/07/19 03:00 20 Mechanical Ventilator 100 12/07/19 02:45 118 22 124/74 (91) 100 12/07/19 02:30 99.5 118 21 120/72 (88) 100 12/07/19 02:15 120 20 127/71 (89) 100 12/07/19 02:00 118 21 125/70 (88) 100 12/07/19 02:00 125/70 12/07/19 02:00 20 Mechanical Ventilator 100 12/07/19 01:45 119 20 124/71 (88) 100 12/07/19 01:30 118 21 128/74 (92) 100 12/07/19 01:15 118 21 130/75 (93) 100 12/07/19 01:00 117 20 130/73 (92) 100 12/07/19 01:00 130/73 12/07/19 01:00 20 Mechanical Ventilator 100 12/07/19 00:45 117 20 134/74 (94) 100 12/07/19 00:30 115 20 127/72 (90) 100 12/07/19 00:15 114 20 126/69 (88) 100 12/07/19 00:00 106 12/07/19 00:00 131/71 12/07/19 00:00 20 Mechanical Ventilator 100 12/07/19 00:00 Mechanical Ventilator 12/07/19 00:00 96.9 111 20 131/71 (91) 100 12/06/19 23:30 106 20 142/80 (100) 100 12/06/19 23:16 20 Mechanical Ventilator 100 12/06/19 23:15 105 20 140/76 (97) 100 12/06/19 23:00 145/77 12/06/19 23:00 20 Mechanical Ventilator 100 12/06/19 23:00 97.0 105 20 145/77 (99) 100 12/06/19 22:45 103 20 136/78 (97) 100 12/06/19 22:30 98 20 146/88 (107) 100 12/06/19 22:15 98 20 143/88 (106) 99 12/06/19 22:00 136/80 12/06/19 22:00 20 Mechanical Ventilator 100 12/06/19 22:00 99 20 136/80 (98) 97 12/06/19 21:45 102 20 111/68 (82) 97 12/06/19 21:30 106 20 103/69 (80) 95 12/06/19 21:15 109 20 100/61 (74) 95 12/06/19 21:00 112 20 100/62 (75) 93 12/06/19 21:00 100/62 12/06/19 21:00 19 Mechanical Ventilator 100 12/06/19 20:45 115 20 87/55 (66) 93 12/06/19 20:30 116 20 84/57 (66) 93 12/06/19 20:15 123 20 82/53 (63) 95 12/06/19 20:00 102.0 125 20 84/51 (62) 95 12/06/19 20:00 100 12/06/19 20:00 128 12/06/19 20:00 84/51 12/06/19 20:00 19 Mechanical Ventilator 100 12/06/19 20:00 Mechanical Ventilator 12/06/19 19:47 104.1 12/06/19 19:45 129 21 99/55 (70) 98 12/06/19 19:30 129 22 96/61 (73) 98 12/06/19 19:22 129 23 100 12/06/19 19:15 105/60 12/06/19 19:15 128 22 104/58 (73) 98 12/06/19 19:00 133 27 122/66 (84) 100 12/06/19 19:00 122/69 12/06/19 19:00 25 Mechanical Ventilator 100 12/06/19 18:45 130 24 122/69 (86) 100 12/06/19 18:30 127 25 64/33 (43) 99 12/06/19 18:15 127 24 64/32 (43) 100 12/06/19 18:00 90/50 12/06/19 18:00 26 Mechanical Ventilator 100 12/06/19 18:00 128 22 67/38 (48) 100 12/06/19 17:45 130 21 104/60 (75) 100 12/06/19 17:30 129 22 104/61 (75) 100 12/06/19 17:15 130 20 106/59 (75) 100 12/06/19 17:00 130 21 103/62 (76) 100 12/06/19 17:00 103/62 12/06/19 17:00 25 Mechanical Ventilator 100 12/06/19 16:45 130 21 103/59 (74) 100 12/06/19 16:36 130 20 100 12/06/19 16:30 131 19 104/64 (77) 100 12/06/19 16:15 131 20 108/60 (76) 100 12/06/19 16:00 126 12/06/19 16:00 105.6 131 20 111/62 (78) 100 12/06/19 16:00 111/62 12/06/19 16:00 24 Mechanical Ventilator 100 12/06/19 16:00 Mechanical Ventilator 12/06/19 16:00 100 12/06/19 15:45 130 20 114/63 (80) 100 12/06/19 15:30 130 20 116/60 (78) 100 Intake and Output 12/06/19 12/07/19 19:00 07:00 Intake Total 1353.78 ml 1269.052 ml Output Total 0 ml 10 ml Balance 1353.78 ml 1259.052 ml IV Total 1353.78 ml 1269.052 ml Output Urine Total 0 ml 10 ml Hemodialysis UF 0 ml Laboratory Tests 12/07/19 04:00: Arterial Blood pH 7.124*L, Arterial Blood Partial Pressure CO2 83.7*H, Arterial Blood Partial Pressure O2 226.9H, Arterial Blood HCO3 26.8H, Arterial Blood Oxygen Saturation 99.0, Arterial Blood Base Excess -4.1L, Melecio Test Positive 12/07/19 04:57: White Blood Count 27.0*H, Red Blood Count 3.91L, Hemoglobin 11.9L, Hematocrit 36.6L, Mean Corpuscular Volume 93, Mean Corpuscular Hemoglobin 30.4, Mean Corpuscular Hemoglobin Concent 32.5, Red Cell Distribution Width 13.2, Platelet Count 242#, Mean Platelet Volume 7.6, Neutrophils (%) (Auto) , Lymphocytes (%) ( Auto) , Monocytes (%) (Auto) , Eosinophils (%) (Auto) , Basophils (%) (Auto) , Differential Total Cells Counted 100, Neutrophils % (Manual) 87H, Lymphocytes % (Manual) 8L, Monocytes % (Manual) 5, Eosinophils % (Manual) 0, Basophils % ( Manual) 0, Band Neutrophils 0, Platelet Estimate Adequate, Platelet Morphology Normal, Red Blood Cell Morphology Normal, Sodium Level 143, Potassium Level 5.2H , Chloride Level 103, Carbon Dioxide Level 28, Anion Gap 12, Blood Urea Nitrogen 56H, Creatinine 6.0H, Estimat Glomerular Filtration Rate 9.7, Glucose Level 171H, Calcium Level 7.0L, Total Bilirubin 1.5H, Direct Bilirubin 1.1H, Aspartate Amino Transf (AST/SGOT) 2065H, Alanine Aminotransferase (ALT/SGPT) 488H, Alkaline Phosphatase 99, Total Protein 6.7, Albumin 2.7L, Globulin 4.0, Albumin/Globulin Ratio 0.7L, Hepatitis A IgM Antibody [Pending], Hepatitis B Surface Antigen [Pending], Hepatitis B Core IgM Antibody [Pending], Hepatitis C Antibody [Pending] 4/25/20 12:35: Sodium Level 140, Potassium Level 5.0, Chloride Level 100, Carbon Dioxide Level 26, Anion Gap 14, Blood Urea Nitrogen 68H, Creatinine 6.6H, Estimat Glomerular Filtration Rate 8.7, Glucose Level 139H, Calcium Level 7.2L Height (Feet): 5 Height (Inches): 6.00 Weight (Pounds): 176 Objective General Appearance: other - intubated- proned Lines, tubes and drains: central line HEENT: normocephalic, atraumatic Respiratory/Chest: rhonchi - bilaterally Cardiovascular/Chest: other - tachycardic Extremities: pitting Dorian Soriano M.D. Dec 07, 2019 15:31
--- NOTE | 2019-12-07 15:40 | Cardiac Electrophysiology PN ---
Assessment/Plan Assessment/Plan 1. Atrial fib with RVR 170 right before intubation on 12/04/19. Converted to Sinus tach after intubation. Troponin 0.77 2. Sinus Tachycardia due to respiratory failure and COVID-19 pneumonia and superimposing infection. On IV antibiotic per ID. Echocardiogram after Covid negative. The patient already completed hydroxychloroquine. 3. Septic shock. Only on Levophed 8 Mcg 4. Respiratory failure, on the Vent by Dr. Cortes.100% Fio2 PEEP 10 5. Acute renal failure. HD per Dr. Sanchez via RFV [place] 6. Full code DW RN Subjective Subjective Intubated in ICU on 100% Fio2 and PEEP 10, on Levo 8mcg and Vaso DCed last night. Had Atrial fib with RVR 160s on 12/04/19 but no recurrence. In acute renal failure.Got glucose, insulin, Kayexalate for K 6.6.T max 104.3 K today 5.5. Had RFV [facility] and HD 12/06/19 Objective Last 24 Hour Vital Signs Date Time Temp Pulse Resp B/P (MAP) Pulse Ox O2 Delivery O2 Flow Rate FiO2 12/07/19 15:00 117 27 128/72 (90) 100 12/07/19 14:30 119 26 132/73 (92) 97 12/07/19 14:00 117 23 128/75 (92) 96 12/07/19 14:00 128/75 12/07/19 14:00 23 Mechanical Ventilator 100 12/07/19 13:30 116 20 126/71 (89) 97 12/07/19 13:00 115 20 129/75 (93) 98 12/07/19 13:00 129/75 12/07/19 13:00 23 Mechanical Ventilator 100 12/07/19 12:30 114 20 129/78 (95) 98 12/07/19 12:00 127/79 12/07/19 12:00 22 Mechanical Ventilator 100 12/07/19 12:00 112 12/07/19 12:00 100 12/07/19 12:00 Mechanical Ventilator 12/07/19 12:00 98.3 114 20 139/76 (97) 96 12/07/19 11:30 112 20 138/81 (100) 97 12/07/19 11:03 112 22 100 12/07/19 11:00 130/81 12/07/19 11:00 22 Mechanical Ventilator 100 12/07/19 11:00 111 20 137/87 (104) 96 12/07/19 10:30 107 20 141/85 (103) 98 12/07/19 10:15 105 19 148/87 (107) 100 12/07/19 10:00 154/89 12/07/19 10:00 22 Mechanical Ventilator 100 12/07/19 10:00 97.0 108 19 154/89 (110) 100 12/07/19 09:45 107 19 164/91 (115) 100 12/07/19 09:30 107 20 154/94 (114) 100 12/07/19 09:15 107 20 141/76 (97) 100 12/07/19 09:00 139/74 12/07/19 09:00 22 Mechanical Ventilator 100 12/07/19 09:00 105 21 139/74 (95) 100 12/07/19 08:45 102 20 135/73 (93) 100 12/07/19 08:31 142/79 12/07/19 08:30 97 22 142/79 (100) 100 12/07/19 08:03 98 12/07/19 08:00 100 12/07/19 08:00 Mechanical Ventilator 12/07/19 08:00 96.0 98 23 166/89 (114) 100 12/07/19 08:00 166/89 12/07/19 08:00 22 Mechanical Ventilator 100 12/07/19 07:45 100 21 167/93 (117) 100 12/07/19 07:30 99 21 176/96 (122) 100 12/07/19 07:01 100 21 100 12/07/19 07:00 100 21 159/87 (111) 100 12/07/19 07:00 159/81 12/07/19 07:00 21 Mechanical Ventilator 100 12/07/19 06:45 99 21 162/84 (110) 100 12/07/19 06:30 149/87 12/07/19 06:30 97 20 149/87 (107) 100 12/07/19 06:15 96 21 153/93 (113) 100 12/07/19 06:00 97.8 101 22 160/88 (112) 100 12/07/19 06:00 160/88 12/07/19 06:00 21 Mechanical Ventilator 100 12/07/19 05:45 102 23 142/77 (98) 97 12/07/19 05:45 142/77 12/07/19 05:37 136/81 12/07/19 05:30 108 21 129/79 (96) 96 12/07/19 05:25 108 21 129/79 (96) 96 12/07/19 05:15 110 21 134/81 (98) 96 12/07/19 05:00 128/74 12/07/19 05:00 21 Mechanical Ventilator 100 12/07/19 05:00 113 21 128/74 (92) 97 12/07/19 04:45 113 21 128/74 (92) 97 12/07/19 04:30 115 21 129/78 (95) 97 12/07/19 04:15 115 21 124/72 (89) 97 12/07/19 04:00 119 12/07/19 04:00 100 12/07/19 04:00 Mechanical Ventilator 12/07/19 04:00 119/74 12/07/19 04:00 21 Mechanical Ventilator 100 12/07/19 04:00 98.8 116 21 119/74 (89) 98 12/07/19 03:46 105 21 100 12/07/19 03:45 117 21 119/69 (86) 99 12/07/19 03:30 117 21 120/69 (86) 99 12/07/19 03:15 118 21 96/62 (73) 100 12/07/19 03:00 119 20 127/71 (89) 100 12/07/19 03:00 127/71 12/07/19 03:00 20 Mechanical Ventilator 100 12/07/19 02:45 118 22 124/74 (91) 100 12/07/19 02:30 99.5 118 21 120/72 (88) 100 12/07/19 02:15 120 20 127/71 (89) 100 12/07/19 02:00 118 21 125/70 (88) 100 12/07/19 02:00 125/70 12/07/19 02:00 20 Mechanical Ventilator 100 12/07/19 01:45 119 20 124/71 (88) 100 12/07/19 01:30 118 21 128/74 (92) 100 12/07/19 01:15 118 21 130/75 (93) 100 12/07/19 01:00 117 20 130/73 (92) 100 12/07/19 01:00 130/73 12/07/19 01:00 20 Mechanical Ventilator 100 12/07/19 00:45 117 20 134/74 (94) 100 12/07/19 00:30 115 20 127/72 (90) 100 12/07/19 00:15 114 20 126/69 (88) 100 12/07/19 00:00 106 12/07/19 00:00 131/71 12/07/19 00:00 20 Mechanical Ventilator 100 12/07/19 00:00 Mechanical Ventilator 12/07/19 00:00 96.9 111 20 131/71 (91) 100 12/06/19 23:30 106 20 142/80 (100) 100 12/06/19 23:16 20 Mechanical Ventilator 100 12/06/19 23:15 105 20 140/76 (97) 100 12/06/19 23:00 145/77 12/06/19 23:00 20 Mechanical Ventilator 100 12/06/19 23:00 97.0 105 20 145/77 (99) 100 12/06/19 22:45 103 20 136/78 (97) 100 12/06/19 22:30 98 20 146/88 (107) 100 12/06/19 22:15 98 20 143/88 (106) 99 12/06/19 22:00 136/80 12/06/19 22:00 20 Mechanical Ventilator 100 12/06/19 22:00 99 20 136/80 (98) 97 12/06/19 21:45 102 20 111/68 (82) 97 12/06/19 21:30 106 20 103/69 (80) 95 12/06/19 21:15 109 20 100/61 (74) 95 12/06/19 21:00 112 20 100/62 (75) 93 12/06/19 21:00 100/62 12/06/19 21:00 19 Mechanical Ventilator 100 12/06/19 20:45 115 20 87/55 (66) 93 12/06/19 20:30 116 20 84/57 (66) 93 12/06/19 20:15 123 20 82/53 (63) 95 12/06/19 20:00 102.0 125 20 84/51 (62) 95 12/06/19 20:00 100 12/06/19 20:00 128 12/06/19 20:00 84/51 12/06/19 20:00 19 Mechanical Ventilator 100 12/06/19 20:00 Mechanical Ventilator 12/06/19 19:47 104.1 12/06/19 19:45 129 21 99/55 (70) 98 12/06/19 19:30 129 22 96/61 (73) 98 12/06/19 19:22 129 23 100 12/06/19 19:15 105/60 12/06/19 19:15 128 22 104/58 (73) 98 12/06/19 19:00 133 27 122/66 (84) 100 12/06/19 19:00 122/69 12/06/19 19:00 25 Mechanical Ventilator 100 12/06/19 18:45 130 24 122/69 (86) 100 12/06/19 18:30 127 25 64/33 (43) 99 12/06/19 18:15 127 24 64/32 (43) 100 12/06/19 18:00 90/50 12/06/19 18:00 26 Mechanical Ventilator 100 12/06/19 18:00 128 22 67/38 (48) 100 12/06/19 17:45 130 21 104/60 (75) 100 12/06/19 17:30 129 22 104/61 (75) 100 12/06/19 17:15 130 20 106/59 (75) 100 12/06/19 17:00 130 21 103/62 (76) 100 12/06/19 17:00 103/62 12/06/19 17:00 25 Mechanical Ventilator 100 12/06/19 16:45 130 21 103/59 (74) 100 12/06/19 16:36 130 20 100 12/06/19 16:30 131 19 104/64 (77) 100 12/06/19 16:15 131 20 108/60 (76) 100 12/06/19 16:00 126 12/06/19 16:00 105.6 131 20 111/62 (78) 100 12/06/19 16:00 111/62 12/06/19 16:00 24 Mechanical Ventilator 100 12/06/19 16:00 Mechanical Ventilator 12/06/19 16:00 100 12/06/19 15:45 130 20 114/63 (80) 100 Intake and Output 12/06/19 12/07/19 19:00 07:00 Intake Total 1353.78 ml 1269.052 ml Output Total 0 ml 10 ml Balance 1353.78 ml 1259.052 ml IV Total 1353.78 ml 1269.052 ml Output Urine Total 0 ml 10 ml Hemodialysis UF 0 ml Laboratory Tests Test 12/07/19 04:00 12/07/19 04:57 12/07/19 12:35 Arterial Blood pH 7.124 (7.350-7.450) Arterial Blood Partial Pressure CO2 83.7 mmHg (35.0-45.0) *H Arterial Blood Partial Pressure O2 226.9 mmHg (75.0-100.0) H Arterial Blood HCO3 26.8 mmol/L (22.0-26.0) H Arterial Blood Oxygen Saturation 99.0 % (95-100) Arterial Blood Base Excess -4.1 (-2-2) L Melecio Test Positive White Blood Count 27.0 K/UL (4.8-10.8) *H Red Blood Count 3.91 M/UL (4.70-6.10) L Hemoglobin 11.9 G/DL (14.2-18.0) L Hematocrit 36.6 % (42.0-52.0) L Mean Corpuscular Volume 93 FL (80-99) Mean Corpuscular Hemoglobin 30.4 PG (27.0-31.0) Mean Corpuscular Hemoglobin Concent 32.5 G/DL (32.0-36.0) Red Cell Distribution Width 13.2 % (11.6-14.8) Platelet Count 242 K/UL (150-450) # Mean Platelet Volume 7.6 FL (6.5-10.1) Neutrophils (%) (Auto) % (45.0-75.0) Lymphocytes (%) (Auto) % (20.0-45.0) Monocytes (%) (Auto) % (1.0-10.0) Eosinophils (%) (Auto) % (0.0-3.0) Basophils (%) (Auto) % (0.0-2.0) Differential Total Cells Counted 100 Neutrophils % (Manual) 87 % (45-75) H Lymphocytes % (Manual) 8 % (20-45) L Monocytes % (Manual) 5 % (1-10) Eosinophils % (Manual) 0 % (0-3) Basophils % (Manual) 0 % (0-2) Band Neutrophils 0 % (0-8) Platelet Estimate Adequate Platelet Morphology Normal Red Blood Cell Morphology Normal Sodium Level 143 MMOL/L (136-145) 140 MMOL/L (136-145) Potassium Level 5.2 MMOL/L (3.5-5.1) H 5.0 MMOL/L (3.5-5.1) Chloride Level 103 MMOL/L (98-107) 100 MMOL/L (98-107) Carbon Dioxide Level 28 MMOL/L (21-32) 26 MMOL/L (21-32) Anion Gap 12 mmol/L (5-15) 14 mmol/L (5-15) Blood Urea Nitrogen 56 mg/dL (7-18) H 68 mg/dL (7-18) H Creatinine 6.0 MG/DL (0.55-1.30) H 6.6 MG/DL (0.55-1.30) H Estimat Glomerular Filtration Rate 9.7 mL/min (>60) 8.7 mL/min (>60) Glucose Level 171 MG/DL (74-106) H 139 MG/DL (74-106) H Calcium Level 7.0 MG/DL (8.5-10.1) L 7.2 MG/DL (8.5-10.1) L Total Bilirubin 1.5 MG/DL (0.2-1.0) H Direct Bilirubin 1.1 MG/DL (0.0-0.3) H Aspartate Amino Transf (AST/SGOT) 2065 U/L (15-37) H Alanine Aminotransferase (ALT/SGPT) 488 U/L (12-78) H Alkaline Phosphatase 99 U/L (46-116) Total Protein 6.7 G/DL (6.4-8.2) Albumin 2.7 G/DL (3.4-5.0) L Globulin 4.0 g/dL Albumin/Globulin Ratio 0.7 (1.0-2.7) L Hepatitis A IgM Antibody Pending Hepatitis B Surface Antigen Pending Hepatitis B Core IgM Antibody Pending Hepatitis C Antibody Pending Microbiology Date/Time Source Procedure Growth Status 12/04/19 23:00 Sputum Gram Stain - Final Complete 12/04/19 23:00 Sputum Sputum Culture - Final NORMAL UPPER RESPIRATORY ALISIA PRESENT Complete 12/05/19 02:24 Urine,Clean Catch Urine Culture - Preliminary NO GROWTH Resulted Objective HEAD AND NECK: Orally intubated LUNGS: Decreased breath sounds. Coarse rhonchi. CARDIOVASCULAR: Tachycardic S1 and S2 with no gallop. ABDOMEN: Soft. EXTREMITIES: 1 plus pitting edema.RFV [place] in place Raul Appiah MD Dec 07, 2019 15:40
--- NOTE | 2019-12-07 16:45 | NUR ---
NURSE NOTES: Pt proned at this time. Good body mechanics used and pt tolerated well. Remains on Levophed 8mcg/min and Fentanyl increased to 150mcg/min for duration of proning.
--- NOTE | 2019-12-07 16:58 | General Progress Note ---
Assessment/Plan Status: unchanged Assessment/Plan: 59-year-old male with PMH of HTN presents with acute respiratory distress. #Acute Hypoxic Respiratory Failure s/p intubation #Severe sepsis #COVID19 positive #CAP #elevated d-dimer #Fevers -Appreciate ICU level of care -s/p Intubation 12/03 -vent management per Pulm/ICU/CCM team -cont. droplet & isolation precautions -Transaminitis/d-dimer/fluctuating fevers likely reactive/ 2/2 COVID -cont. to monitor LFTs -11/25 BCx NGTD -EKG reviewed, sinus tach, HR 115, QTc 437 -trop negative x1, no CP at this time -s/p hydroxychloroquine -prone position per Pulm -Pulm following, recs appreciated -ID, Dr. Rodriguez, following: Merrem, Vanc -grave prognosis #Pneumomediastinum #Subcutaneous emphysema -seen on abd XR -pt too high risk for bedside thoracostomy -d/w general sx and pulm/ICU #ALBARO #Hypernatremia #Hyperkalemia -likely 2/2 to above, COVID -kayexalate, insulin, D5 for hyperkalemia -cont. to montior -12/04: femoral HD cath placed -d/w Nephro, Dr. Soriano, plan for HD today #Transaminitis -likely 2/2 to above -worsening -GI consulted, recs appreciated #Sinus Tachycardia 2/2 respiratory failure #HTN -hydralazine PRN -Cardio, , following: Echo after COVID negative DVT PPX: Lovenox Pt is at high risk of rapid decompensation and requires continued ICU level of care Prognosis grave/poor Time spent on encounter: 75 mins, 40 mins spent on critical care time. Subjective Date patient seen: Dec 07, 2019 Allergies: Coded Allergies: No Known Allergies (Unverified , 11/29/19) Subjective telemed visit using face-time events- remains intubated and sedated following commands dec fent due to oversedation weaning down on NE Tm 105 yesterday, cooling measures effective Objective Last 24 Hour Vital Signs Date Time Temp Pulse Resp B/P (MAP) Pulse Ox O2 Delivery O2 Flow Rate FiO2 12/07/19 15:00 117 27 128/72 (90) 100 12/07/19 14:30 119 26 132/73 (92) 97 12/07/19 14:00 117 23 128/75 (92) 96 12/07/19 14:00 128/75 12/07/19 14:00 23 Mechanical Ventilator 100 12/07/19 13:30 116 20 126/71 (89) 97 12/07/19 13:00 115 20 129/75 (93) 98 12/07/19 13:00 129/75 12/07/19 13:00 23 Mechanical Ventilator 100 12/07/19 12:30 114 20 129/78 (95) 98 12/07/19 12:00 127/79 12/07/19 12:00 22 Mechanical Ventilator 100 12/07/19 12:00 112 12/07/19 12:00 100 12/07/19 12:00 Mechanical Ventilator 12/07/19 12:00 98.3 114 20 139/76 (97) 96 12/07/19 11:30 112 20 138/81 (100) 97 12/07/19 11:03 112 22 100 12/07/19 11:00 130/81 12/07/19 11:00 22 Mechanical Ventilator 100 12/07/19 11:00 111 20 137/87 (104) 96 12/07/19 10:30 107 20 141/85 (103) 98 12/07/19 10:15 105 19 148/87 (107) 100 12/07/19 10:00 154/89 12/07/19 10:00 22 Mechanical Ventilator 100 12/07/19 10:00 97.0 108 19 154/89 (110) 100 12/07/19 09:45 107 19 164/91 (115) 100 12/07/19 09:30 107 20 154/94 (114) 100 12/07/19 09:15 107 20 141/76 (97) 100 12/07/19 09:00 139/74 12/07/19 09:00 22 Mechanical Ventilator 100 12/07/19 09:00 105 21 139/74 (95) 100 12/07/19 08:45 102 20 135/73 (93) 100 12/07/19 08:31 142/79 12/07/19 08:30 97 22 142/79 (100) 100 12/07/19 08:03 98 12/07/19 08:00 100 12/07/19 08:00 Mechanical Ventilator 12/07/19 08:00 96.0 98 23 166/89 (114) 100 12/07/19 08:00 166/89 12/07/19 08:00 22 Mechanical Ventilator 100 12/07/19 07:45 100 21 167/93 (117) 100 12/07/19 07:30 99 21 176/96 (122) 100 12/07/19 07:01 100 21 100 12/07/19 07:00 100 21 159/87 (111) 100 12/07/19 07:00 159/81 12/07/19 07:00 21 Mechanical Ventilator 100 12/07/19 06:45 99 21 162/84 (110) 100 12/07/19 06:30 149/87 12/07/19 06:30 97 20 149/87 (107) 100 12/07/19 06:15 96 21 153/93 (113) 100 12/07/19 06:00 97.8 101 22 160/88 (112) 100 12/07/19 06:00 160/88 12/07/19 06:00 21 Mechanical Ventilator 100 12/07/19 05:45 102 23 142/77 (98) 97 12/07/19 05:45 142/77 12/07/19 05:37 136/81 12/07/19 05:30 108 21 129/79 (96) 96 12/07/19 05:25 108 21 129/79 (96) 96 12/07/19 05:15 110 21 134/81 (98) 96 12/07/19 05:00 128/74 12/07/19 05:00 21 Mechanical Ventilator 100 12/07/19 05:00 113 21 128/74 (92) 97 12/07/19 04:45 113 21 128/74 (92) 97 12/07/19 04:30 115 21 129/78 (95) 97 12/07/19 04:15 115 21 124/72 (89) 97 12/07/19 04:00 119 12/07/19 04:00 100 12/07/19 04:00 Mechanical Ventilator 12/07/19 04:00 119/74 12/07/19 04:00 21 Mechanical Ventilator 100 12/07/19 04:00 98.8 116 21 119/74 (89) 98 12/07/19 03:46 105 21 100 12/07/19 03:45 117 21 119/69 (86) 99 12/07/19 03:30 117 21 120/69 (86) 99 12/07/19 03:15 118 21 96/62 (73) 100 12/07/19 03:00 119 20 127/71 (89) 100 12/07/19 03:00 127/71 12/07/19 03:00 20 Mechanical Ventilator 100 12/07/19 02:45 118 22 124/74 (91) 100 12/07/19 02:30 99.5 118 21 120/72 (88) 100 12/07/19 02:15 120 20 127/71 (89) 100 12/07/19 02:00 118 21 125/70 (88) 100 12/07/19 02:00 125/70 12/07/19 02:00 20 Mechanical Ventilator 100 12/07/19 01:45 119 20 124/71 (88) 100 12/07/19 01:30 118 21 128/74 (92) 100 12/07/19 01:15 118 21 130/75 (93) 100 12/07/19 01:00 117 20 130/73 (92) 100 12/07/19 01:00 130/73 12/07/19 01:00 20 Mechanical Ventilator 100 12/07/19 00:45 117 20 134/74 (94) 100 12/07/19 00:30 115 20 127/72 (90) 100 12/07/19 00:15 114 20 126/69 (88) 100 12/07/19 00:00 106 12/07/19 00:00 131/71 12/07/19 00:00 20 Mechanical Ventilator 100 12/07/19 00:00 Mechanical Ventilator 12/07/19 00:00 96.9 111 20 131/71 (91) 100 12/06/19 23:30 106 20 142/80 (100) 100 12/06/19 23:16 20 Mechanical Ventilator 100 12/06/19 23:15 105 20 140/76 (97) 100 12/06/19 23:00 145/77 12/06/19 23:00 20 Mechanical Ventilator 100 12/06/19 23:00 97.0 105 20 145/77 (99) 100 12/06/19 22:45 103 20 136/78 (97) 100 12/06/19 22:30 98 20 146/88 (107) 100 12/06/19 22:15 98 20 143/88 (106) 99 12/06/19 22:00 136/80 12/06/19 22:00 20 Mechanical Ventilator 100 12/06/19 22:00 99 20 136/80 (98) 97 12/06/19 21:45 102 20 111/68 (82) 97 12/06/19 21:30 106 20 103/69 (80) 95 12/06/19 21:15 109 20 100/61 (74) 95 12/06/19 21:00 112 20 100/62 (75) 93 12/06/19 21:00 100/62 12/06/19 21:00 19 Mechanical Ventilator 100 12/06/19 20:45 115 20 87/55 (66) 93 12/06/19 20:30 116 20 84/57 (66) 93 12/06/19 20:15 123 20 82/53 (63) 95 12/06/19 20:00 102.0 125 20 84/51 (62) 95 12/06/19 20:00 100 12/06/19 20:00 128 12/06/19 20:00 84/51 12/06/19 20:00 19 Mechanical Ventilator 100 12/06/19 20:00 Mechanical Ventilator 12/06/19 19:47 104.1 12/06/19 19:45 129 21 99/55 (70) 98 12/06/19 19:30 129 22 96/61 (73) 98 12/06/19 19:22 129 23 100 12/06/19 19:15 105/60 12/06/19 19:15 128 22 104/58 (73) 98 12/06/19 19:00 133 27 122/66 (84) 100 12/06/19 19:00 122/69 12/06/19 19:00 25 Mechanical Ventilator 100 12/06/19 18:45 130 24 122/69 (86) 100 12/06/19 18:30 127 25 64/33 (43) 99 12/06/19 18:15 127 24 64/32 (43) 100 12/06/19 18:00 90/50 12/06/19 18:00 26 Mechanical Ventilator 100 12/06/19 18:00 128 22 67/38 (48) 100 12/06/19 17:45 130 21 104/60 (75) 100 12/06/19 17:30 129 22 104/61 (75) 100 12/06/19 17:15 130 20 106/59 (75) 100 12/06/19 17:00 130 21 103/62 (76) 100 12/06/19 17:00 103/62 12/06/19 17:00 25 Mechanical Ventilator 100 Intake and Output 12/06/19 12/07/19 19:00 07:00 Intake Total 1353.78 ml 1269.052 ml Output Total 0 ml 10 ml Balance 1353.78 ml 1259.052 ml IV Total 1353.78 ml 1269.052 ml Output Urine Total 0 ml 10 ml Hemodialysis UF 0 ml Laboratory Tests 12/07/19 04:00: Arterial Blood pH 7.124*L, Arterial Blood Partial Pressure CO2 83.7*H, Arterial Blood Partial Pressure O2 226.9H, Arterial Blood HCO3 26.8H, Arterial Blood Oxygen Saturation 99.0, Arterial Blood Base Excess -4.1L, Melecio Test Positive 12/07/19 04:57: White Blood Count 27.0*H, Red Blood Count 3.91L, Hemoglobin 11.9L, Hematocrit 36.6L, Mean Corpuscular Volume 93, Mean Corpuscular Hemoglobin 30.4, Mean Corpuscular Hemoglobin Concent 32.5, Red Cell Distribution Width 13.2, Platelet Count 242#, Mean Platelet Volume 7.6, Neutrophils (%) (Auto) , Lymphocytes (%) ( Auto) , Monocytes (%) (Auto) , Eosinophils (%) (Auto) , Basophils (%) (Auto) , Differential Total Cells Counted 100, Neutrophils % (Manual) 87H, Lymphocytes % (Manual) 8L, Monocytes % (Manual) 5, Eosinophils % (Manual) 0, Basophils % ( Manual) 0, Band Neutrophils 0, Platelet Estimate Adequate, Platelet Morphology Normal, Red Blood Cell Morphology Normal, Sodium Level 143, Potassium Level 5.2H , Chloride Level 103, Carbon Dioxide Level 28, Anion Gap 12, Blood Urea Nitrogen 56H, Creatinine 6.0H, Estimat Glomerular Filtration Rate 9.7, Glucose Level 171H, Calcium Level 7.0L, Total Bilirubin 1.5H, Direct Bilirubin 1.1H, Aspartate Amino Transf (AST/SGOT) 2065H, Alanine Aminotransferase (ALT/SGPT) 488H, Alkaline Phosphatase 99, Total Protein 6.7, Albumin 2.7L, Globulin 4.0, Albumin/Globulin Ratio 0.7L, Hepatitis A IgM Antibody [Pending], Hepatitis B Surface Antigen [Pending], Hepatitis B Core IgM Antibody [Pending], Hepatitis C Antibody [Pending] 12/07/19 12:35: Sodium Level 140, Potassium Level 5.0, Chloride Level 100, Carbon Dioxide Level 26, Anion Gap 14, Blood Urea Nitrogen 68H, Creatinine 6.6H, Estimat Glomerular Filtration Rate 8.7, Glucose Level 139H, Calcium Level 7.2L Height (Feet): 5 Height (Inches): 6.00 Weight (Pounds): 176 Objective PE per RN report: See Pulm note for details Mechanical BS ant lung solares, min secretions S1, S2 Abd non distended Extrem cool as expected on NE gtt Jus Forbes MD Dec 07, 2019 16:58
--- NOTE | 2019-12-07 17:05 | NUR ---
NURSE NOTES: Called [facility] ([phone]) and scheduled dialysis for tomorrow, as ordered.
--- NOTE | 2019-12-07 19:10 | NUR ---
HAND-OFF: Report given to DARYA Smith.
--- NOTE | 2019-12-07 19:30 | NUR ---
NURSE NOTES: Received report from DARYA Pires. Pt is sleeping on the bed. Pt Orally intubated with ETT #8 at 24cm lip line. Vent dependent and setting with AC: 20, T:500 P:10 and SaO2 100% and FiO2 98-100% noted. Checked BT 99.3F by rectal. Keep cooling measure. On monitor technician with ST. On running with Levophed 8mcg/min, Fentanyl drip @ 150mcg/hr. On pron position. Will continue to monitor and titrate as needed per protocol. Patient has Joe for urine retention and patent. no urine output noted at this time. Patient has right Bismark catheter with pigtail that is patent, dressing dry and intact. Pt has wound on sacral area and dressing is intact. Pt scheduled hemodialysis tomorrow. Called to hemodialysis center by previous nurse. Dialysis nurse stay in bedside. Patient bed in low position with bed alarm on and call light in reach at this time. Will continue to care plan.
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
[2019-12-07] MEDS: Dyna-Hex 2% Top Sol 2oz TOPIC SCH (20:23)
[2019-12-07] MEDS: fentaNYL Citrate 2,500 MCG in NS 200 ML IVPB SCH (20:31)
--- NOTE | 2019-12-07 22:00 | NUR ---
NURSE NOTES: Pt is sleeping on the bed with sedation. tolerated well with current Vent setting and SaO2 99-100% noted. BP is stable with Levophed drip @ 8mcg/min. Keep pron position. Given endotracheal suction. Keep NPO. BT checked 99.0F via rectal. Will continue to monitor any change of condition.
[2019-12-08] VITALS (44 sets, daily range): BP systolic 95–148; BP diastolic 59–78
--- NOTE | 2019-12-08 | NUR ---
NURSE NOTES: Pt is sleeping on the bed with sedation. Noted BP: 125/73mmHg. Decrease Levophed drip to 6mcg/min. SaO2 99-100% noted with current Vent setting. BT checked 98.8F via rectal. Given oral care. Will continue to monitor any change of condition.
--- NOTE | 2019-12-08 02:00 | NUR ---
NURSE NOTES: Pt is sleeping on the bed and On running with Levophed drip @ 4mcg/min. and checked BP: 116/67mmHg. Given oral and endotracheal suction. 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 Will continue to care plan.
--- NOTE | 2019-12-08 04:00 | NUR ---
NURSE NOTES: Repositioned Pt. Morning care was done. Cleaned Pt and applied lotion and cream. Changed dressing on sacral area. Pt sedated with Fentanyl drip @ 150mcg/hr. on running with Levophed drip @ 4mcg/min and BP is stable. Given oral care. Provided oral and tracheal suction. Pt bits his tongue and noted slight bleeding from mouth . Will continue to care plan.
[2019-12-08] MEDS: Heparin 5000 units/ml inj SUBQ SCH (05:02)
--- NOTE | 2019-12-08 06:00 | NUR ---
NURSE NOTES: Pt is sleeping on the bed and no sing of acute distress noted. On running with Levophed and Fentanyl drip. changed position. will continue to monitor any change of condition.
[2019-12-08 06:11] LABS: HEMATOCRIT 35.1 % (42.0-52.0); HEMOGLOBIN 11.6 G/DL (14.2-18.0); MEAN CORPUSCULAR VOLUME 93 FL (80-99); PLATELET COUNT 168 K/UL (150-450)
[2019-12-08 06:24] LABS: WHITE BLOOD COUNT 22.6 K/UL (4.8-10.8)
[2019-12-08 07:08] LABS: ALANINE AMINOTRANSFERASE 662 U/L (12-78); ALBUMIN 2.1 G/DL (3.4-5.0); ALBUMIN/GLOBULIN RATIO 0.6 (1.0-2.7); ALKALINE PHOSPHATASE 83 U/L (46-116); ANION GAP 17 mmol/L (5-15); ASPARTATE AMINO TRANSFERASE 1433 U/L (15-37); BILIRUBIN,TOTAL 1.1 MG/DL (0.2-1.0); BLOOD UREA NITROGEN 84 mg/dL (7-18); CALCIUM 6.5 MG/DL (8.5-10.1); CARBON DIOXIDE 26 MMOL/L (21-32); CHLORIDE 98 MMOL/L (98-107); POTASSIUM 5.1 MMOL/L (3.5-5.1); SODIUM 140 MMOL/L (136-145)
--- NOTE | 2019-12-08 07:14 | NUR ---
HAND-OFF: Report given to DARYA Pires. Pt is sleeping on the bed SaO2 100% noted with Current Vent setting. BP is stable with Levophed drip. Pt has hemodialysis schedule today.
--- NOTE | 2019-12-08 07:17 | NUR ---
NURSE NOTES: Report received from DARYA Smith. Patient sedated with RASS score -2 on fentanyl at 150mcg/hr at this time. Cooling blanket in place; currently off. Patient HR 97 on server developer. Patient remains orally intubated with size 8 ETT, 24cm at the lip line. Ventilator settings AC 20, TV 500, FiO2 100%, and PEEP 10. Patient tolerating with RR 22, SpO2 100%. Left nares NGT patent, asymptomatic, and clamped at this time as pt is NPO. Joe catheter in place, draining to urometer, although pt is making minimal urine. Right jia catheter with pigtail remains patent, dressing clean, dry and intact, and running Levophed 6mcg/min & Fentanyl. PIV Lt wrist #[id number]. Bed locked and in lowest position with bed alarm on and call light in reach. Will resume plan of care.
[2019-12-08 07:35] LABS: BILIRUBIN,DIRECT 0.6 MG/DL (0.0-0.3)
[2019-12-08] MEDS: Norepinephrine Bitartrate 16 MG in D5W 500ml 550 ML IV SCH (08:05)
[2019-12-08] MEDS: Meropenem 500mg in NS 55ml IVPB SCH (08:05)
[2019-12-08] MEDS: Pantoprazole Inj IVP SCH (08:05)
[2019-12-08] MEDS: Vasopressin 100 UNITS in NS 95 ML IV SCH (08:06)
--- NOTE | 2019-12-08 09:00 | NUR ---
NURSE NOTES: Pt turned and repositioned for comfort. Oral care done. No distress noted at this time.
--- NOTE | 2019-12-08 10:10 | Urology Progress Note ---
Assessment/Plan Status: unchanged Assessment/Plan: 1. Phimosis. 2. Retention. 3. Hematuria. 4. Pyuria. 5. Proteinuria. 6. Acute kidney injury. 7. Meatal stenosis. monitor clinically maintain barnes, placed 12/04 hand irrigate PRN monitor urine output and renal fxn consider renal imaging f/u on blood cx abx as ordered HD Subjective Allergies: Coded Allergies: No Known Allergies (Unverified , 11/29/19) Subjective remains on vent, still with minimal urine output, HD initiated Objective Last 24 Hour Vital Signs Date Time Temp Pulse Resp B/P (MAP) Pulse Ox O2 Delivery O2 Flow Rate FiO2 12/08/19 09:00 101 25 109/66 (80) 100 12/08/19 09:00 109/66 12/08/19 09:00 22 Mechanical Ventilator 100 12/08/19 08:30 99 24 111/63 (79) 100 12/08/19 08:05 113/64 12/08/19 08:00 100 12/08/19 08:00 113/64 12/08/19 08:00 22 Mechanical Ventilator 100 12/08/19 08:00 Mechanical Ventilator 12/08/19 08:00 96.7 97 24 113/64 (80) 100 12/08/19 07:01 101 24 100 12/08/19 07:00 115/66 12/08/19 07:00 20 Mechanical Ventilator 100 12/08/19 07:00 98 26 115/66 (82) 100 12/08/19 06:00 110/64 12/08/19 06:00 20 Mechanical Ventilator 100 12/08/19 06:00 101 20 110/64 (79) 100 12/08/19 05:30 104 22 108/65 (79) 100 12/08/19 05:00 112/64 12/08/19 05:00 22 Mechanical Ventilator 100 12/08/19 05:00 102 20 112/64 (80) 100 12/08/19 04:30 95/63 12/08/19 04:30 104 20 95/63 (74) 100 12/08/19 04:00 Mechanical Ventilator 12/08/19 04:00 100 12/08/19 04:00 97.8 109 20 115/63 (80) 100 12/08/19 04:00 115/63 4/26/20 04:00 20 Mechanical Ventilator 100 12/08/19 04:00 109 12/08/19 03:30 109 20 110/59 (76) 100 12/08/19 03:07 103 20 100 12/08/19 03:00 108 21 116/64 (81) 100 12/08/19 03:00 116/64 12/08/19 03:00 20 Mechanical Ventilator 100 12/08/19 02:30 109 19 112/67 (82) 100 12/08/19 02:00 109 19 116/67 (83) 100 12/08/19 02:00 116/67 12/08/19 02:00 19 Mechanical Ventilator 100 12/08/19 01:30 110 19 117/64 (81) 100 12/08/19 01:00 109 19 129/70 (89) 100 12/08/19 01:00 129/70 12/08/19 01:00 19 Mechanical Ventilator 100 12/08/19 00:30 109 18 119/75 (90) 100 12/08/19 00:00 Mechanical Ventilator 12/08/19 00:00 100 12/08/19 00:00 125/73 12/08/19 00:00 20 Endotracheal Tube 100 12/08/19 00:00 111 12/08/19 00:00 98.8 110 20 125/73 (90) 100 12/07/19 23:08 112 20 100 12/07/19 23:00 112 20 127/73 (91) 100 12/07/19 23:00 127/73 12/07/19 23:00 20 Mechanical Ventilator 100 12/07/19 22:30 114 20 134/71 (92) 100 12/07/19 22:00 130/73 12/07/19 22:00 20 Mechanical Ventilator 100 12/07/19 22:00 20 Endotracheal Tube 100 12/07/19 22:00 113 19 130/73 (92) 100 12/07/19 21:30 113 18 128/70 (89) 100 12/07/19 21:00 112 19 121/68 (85) 100 12/07/19 21:00 121/68 12/07/19 21:00 20 Mechanical Ventilator 100 12/07/19 20:31 100 12/07/19 20:31 20 Mechanical Ventilator 100 12/07/19 20:30 110 18 130/69 (89) 100 12/07/19 20:00 Mechanical Ventilator 12/07/19 20:00 113 12/07/19 20:00 99.3 112 18 116/70 (85) 100 12/07/19 20:00 116/70 12/07/19 20:00 20 Mechanical Ventilator 100 12/07/19 19:30 113 18 120/72 (88) 100 12/07/19 19:00 111 21 100 12/07/19 19:00 125/73 12/07/19 19:00 22 Mechanical Ventilator 100 12/07/19 19:00 112 19 125/73 (90) 100 12/07/19 18:30 113 20 122/73 (89) 100 12/07/19 18:00 122/67 12/07/19 18:00 20 Mechanical Ventilator 100 12/07/19 18:00 99.4 113 19 122/67 (85) 100 12/07/19 17:30 112 19 118/67 (84) 100 12/07/19 17:15 111 20 123/67 (85) 100 12/07/19 17:00 128/71 12/07/19 17:00 22 Mechanical Ventilator 100 12/07/19 17:00 109 18 128/71 (90) 100 12/07/19 16:47 113 26 111/58 (75) 100 12/07/19 16:30 100.0 114 20 123/76 (92) 100 12/07/19 16:30 22 Mechanical Ventilator 100 12/07/19 16:00 115 12/07/19 16:00 111 27 111/58 (75) 100 12/07/19 16:00 111/58 12/07/19 16:00 23 Mechanical Ventilator 100 12/07/19 16:00 100 12/07/19 16:00 Mechanical Ventilator 12/07/19 15:03 111 21 100 12/07/19 15:00 117 27 128/72 (90) 100 12/07/19 15:00 128/72 12/07/19 15:00 22 Mechanical Ventilator 100 12/07/19 14:30 119 26 132/73 (92) 97 12/07/19 14:00 117 23 128/75 (92) 96 12/07/19 14:00 128/75 12/07/19 14:00 23 Mechanical Ventilator 100 12/07/19 13:30 116 20 126/71 (89) 97 12/07/19 13:00 115 20 129/75 (93) 98 12/07/19 13:00 129/75 12/07/19 13:00 23 Mechanical Ventilator 100 12/07/19 12:30 114 20 129/78 (95) 98 12/07/19 12:00 127/79 12/07/19 12:00 22 Mechanical Ventilator 100 12/07/19 12:00 112 12/07/19 12:00 100 12/07/19 12:00 Mechanical Ventilator 12/07/19 12:00 98.3 114 20 139/76 (97) 96 12/07/19 11:30 112 20 138/81 (100) 97 12/07/19 11:03 112 22 100 12/07/19 11:00 130/81 12/07/19 11:00 22 Mechanical Ventilator 100 12/07/19 11:00 111 20 137/87 (104) 96 12/07/19 10:30 107 20 141/85 (103) 98 12/07/19 10:15 105 19 148/87 (107) 100 Intake and Output 12/07/19 12/08/19 19:00 07:00 Intake Total 1187.93 ml 701.41 ml Output Total 10 ml 5 ml Balance 1177.93 ml 696.41 ml IV Total 887.93 ml 701.41 ml Other 300 ml Output Urine Total 10 ml 5 ml Microbiology Date/Time Source Procedure Growth Status 12/04/19 12:46 Blood Blood Culture - Preliminary NO GROWTH AFTER 72 HOURS Resulted 12/04/19 23:00 Sputum Gram Stain - Final Complete 12/04/19 23:00 Sputum Sputum Culture - Final NORMAL UPPER RESPIRATORY ALISIA PRESENT Complete 12/05/19 02:24 Urine,Clean Catch Urine Culture - Final NO GROWTH AFTER 48 HOURS Complete Current Medications Medications (Trade) Dose Ordered Sig/Vicki Route PRN Reason Start Time Stop Time Status Last Admin Dose Admin Acetaminophen (Tylenol) 650 mg Q4H PRN NG Temp >100.5 12/06/19 14:15 01/05/20 14:14 12/06/19 14:40 Acetaminophen (Tylenol) 650 mg Q4H PRN RECTAL Mild Pain (Pain Scale 1-3) 12/04/19 11:45 01/03/20 11:44 12/06/19 19:17 Chlorhexidine Gluconate (Arely-Hex 2%) 1 applic DAILY@2000 TOPIC 12/05/19 20:00 03/04/20 19:59 12/07/19 20:23 Dextrose (Dextrose 50%) 25 ml Q30M PRN IV Hypoglycemia 11/29/19 14:15 02/27/20 14:14 Dextrose (Dextrose 50%) 50 ml Q30M PRN IV Hypoglycemia 11/29/19 14:15 02/27/20 14:14 Fentanyl Citrate 2500 mcg/Sodium Chloride 250 ml @ 0 mls/hr Q24H IVPB 12/06/19 02:00 12/13/19 01:59 12/07/19 20:31 Heparin Sodium (Porcine) (Heparin 5000 units/ml) 5,000 units EVERY 8 HOURS SUBQ 11/30/19 14:00 01/14/20 13:59 12/08/19 05:02 Hydralazine HCl (Apresoline) 10 mg Q4H PRN IV For High Blood Pressure 11/29/19 15:15 02/27/20 15:14 Linezolid 300 ml @ 300 mls/hr Q12HR IVPB 12/05/19 21:00 12/12/19 20:59 12/08/19 08:06 Meropenem 500 mg/ Sodium Chloride 55 ml @ 110 mls/hr EVERY 12 HOURS IVPB 12/05/19 21:00 12/10/19 20:59 12/08/19 08:05 Norepinephrine Bitartrate 16 mg/ Dextrose 566 ml @ 0 mls/hr Q24H IV 12/06/19 09:00 01/05/20 08:59 12/08/19 08:05 Ondansetron HCl (Zofran) 4 mg Q6H PRN IVP Nausea & Vomiting 11/29/19 14:15 12/29/19 14:14 Pantoprazole (Protonix) 40 mg DAILY IVP 11/30/19 12:15 12/30/19 12:14 12/08/19 08:05 Vasopressin 100 units/Sodium Chloride 100 ml @ 0 mls/hr Q24H IV 12/06/19 09:00 01/05/20 08:59 12/06/19 09:03 Laboratory Tests 12/07/19 12:35: Sodium Level 140, Potassium Level 5.0, Chloride Level 100, Carbon Dioxide Level 26, Anion Gap 14, Blood Urea Nitrogen 68H, Creatinine 6.6H, Estimat Glomerular Filtration Rate 8.7, Glucose Level 139H, Calcium Level 7.2L 12/08/19 03:26: Sodium Level 140, Potassium Level 5.1, Chloride Level 98, Carbon Dioxide Level 26, Anion Gap 17H, Blood Urea Nitrogen 84H, Creatinine 8.0H, Estimat Glomerular Filtration Rate 7.0, Glucose Level 131H, Calcium Level 6.5L, White Blood Count 22.6*H, Red Blood Count 3.80L, Hemoglobin 11.6L, Hematocrit 35.1L, Mean Corpuscular Volume 93, Mean Corpuscular Hemoglobin 30.4, Mean Corpuscular Hemoglobin Concent 32.9, Red Cell Distribution Width 13.0, Platelet Count 168, Mean Platelet Volume 7.9, Neutrophils (%) (Auto) , Lymphocytes (%) (Auto) , Monocytes (%) (Auto) , Eosinophils (%) (Auto) , Basophils (%) (Auto) , Neutrophils % (Manual) [Pending], Lymphocytes % (Manual) [Pending], Platelet Estimate [Pending], Platelet Morphology [Pending], Total Bilirubin 1.1H, Direct Bilirubin 0.6H, Aspartate Amino Transf (AST/SGOT) 1433H, Alanine Aminotransferase (ALT/SGPT) 662H, Alkaline Phosphatase 83, Total Protein 5.4L, Albumin 2.1L, Globulin 3.3, Albumin/Globulin Ratio 0.6L Height (Feet): 5 Height (Inches): 6.00 Weight (Pounds): 176 Objective stable no bleeding at prepuce barnes indwelling, marge urine Kai Berger MD Dec 08, 2019 10:10
--- NOTE | 2019-12-08 10:32 | Nephrology Progress Note ---
Assessment/Plan Plan #ALBARO- concerns for developing ischemic ATN in the setting of sepsis- r/o vanco toxicity - r/o COVID nephropathy - now with likely ATN #Hyperkalemia due to renal insuffiency - exacerbated by acidosis #COID sepsis #COVID pneumonia #hypoxemic respiratary failure #HTN- now in shock #mediastinal PTX - next HD today - order placed - monitor I&Os - daily weights - monitor vinicio ayers - GOALS of care discussion - continue pressor support to maintain MAP > 65- continue vaso and levo - continue fentanyl dip - abx per ID- on katie and linezolid - vent management per pulm -Abd Xray shows mediastinal PTX - too high risk for thorocotomy Subjective ROS Limited/Unobtainable: Yes Subjective plan for HD today remains on levo and vaso drips Abd Xray shows mediastinal PTX On fentanyl drip Objective Objective Last 24 Hour Vital Signs Date Time Temp Pulse Resp B/P (MAP) Pulse Ox O2 Delivery O2 Flow Rate FiO2 12/08/19 09:00 101 25 109/66 (80) 100 12/08/19 09:00 109/66 12/08/19 09:00 22 Mechanical Ventilator 100 12/08/19 08:30 99 24 111/63 (79) 100 12/08/19 08:05 113/64 12/08/19 08:00 100 12/08/19 08:00 113/64 12/08/19 08:00 22 Mechanical Ventilator 100 12/08/19 08:00 Mechanical Ventilator 12/08/19 08:00 96.7 97 24 113/64 (80) 100 12/08/19 07:01 101 24 100 12/08/19 07:00 115/66 12/08/19 07:00 20 Mechanical Ventilator 100 12/08/19 07:00 98 26 115/66 (82) 100 12/08/19 06:00 110/64 12/08/19 06:00 20 Mechanical Ventilator 100 12/08/19 06:00 101 20 110/64 (79) 100 12/08/19 05:30 104 22 108/65 (79) 100 12/08/19 05:00 112/64 12/08/19 05:00 22 Mechanical Ventilator 100 12/08/19 05:00 102 20 112/64 (80) 100 4/26/20 04:30 95/63 12/08/19 04:30 104 20 95/63 (74) 100 12/08/19 04:00 Mechanical Ventilator 12/08/19 04:00 100 12/08/19 04:00 97.8 109 20 115/63 (80) 100 12/08/19 04:00 115/63 12/08/19 04:00 20 Mechanical Ventilator 100 12/08/19 04:00 109 12/08/19 03:30 109 20 110/59 (76) 100 12/08/19 03:07 103 20 100 12/08/19 03:00 108 21 116/64 (81) 100 12/08/19 03:00 116/64 12/08/19 03:00 20 Mechanical Ventilator 100 12/08/19 02:30 109 19 112/67 (82) 100 12/08/19 02:00 109 19 116/67 (83) 100 12/08/19 02:00 116/67 12/08/19 02:00 19 Mechanical Ventilator 100 12/08/19 01:30 110 19 117/64 (81) 100 12/08/19 01:00 109 19 129/70 (89) 100 12/08/19 01:00 129/70 12/08/19 01:00 19 Mechanical Ventilator 100 12/08/19 00:30 109 18 119/75 (90) 100 12/08/19 00:00 Mechanical Ventilator 12/08/19 00:00 100 12/08/19 00:00 125/73 12/08/19 00:00 20 Endotracheal Tube 100 12/08/19 00:00 111 12/08/19 00:00 98.8 110 20 125/73 (90) 100 12/07/19 23:08 112 20 100 12/07/19 23:00 112 20 127/73 (91) 100 12/07/19 23:00 127/73 12/07/19 23:00 20 Mechanical Ventilator 100 12/07/19 22:30 114 20 134/71 (92) 100 12/07/19 22:00 130/73 12/07/19 22:00 20 Mechanical Ventilator 100 12/07/19 22:00 20 Endotracheal Tube 100 12/07/19 22:00 113 19 130/73 (92) 100 12/07/19 21:30 113 18 128/70 (89) 100 12/07/19 21:00 112 19 121/68 (85) 100 12/07/19 21:00 121/68 12/07/19 21:00 20 Mechanical Ventilator 100 12/07/19 20:31 100 12/07/19 20:31 20 Mechanical Ventilator 100 12/07/19 20:30 110 18 130/69 (89) 100 12/07/19 20:00 Mechanical Ventilator 12/07/19 20:00 113 12/07/19 20:00 99.3 112 18 116/70 (85) 100 12/07/19 20:00 116/70 12/07/19 20:00 20 Mechanical Ventilator 100 12/07/19 19:30 113 18 120/72 (88) 100 12/07/19 19:00 111 21 100 12/07/19 19:00 125/73 12/07/19 19:00 22 Mechanical Ventilator 100 12/07/19 19:00 112 19 125/73 (90) 100 12/07/19 18:30 113 20 122/73 (89) 100 12/07/19 18:00 122/67 12/07/19 18:00 20 Mechanical Ventilator 100 12/07/19 18:00 99.4 113 19 122/67 (85) 100 12/07/19 17:30 112 19 118/67 (84) 100 12/07/19 17:15 111 20 123/67 (85) 100 12/07/19 17:00 128/71 12/07/19 17:00 22 Mechanical Ventilator 100 12/07/19 17:00 109 18 128/71 (90) 100 12/07/19 16:47 113 26 111/58 (75) 100 12/07/19 16:30 100.0 114 20 123/76 (92) 100 12/07/19 16:30 22 Mechanical Ventilator 100 12/07/19 16:00 115 12/07/19 16:00 111 27 111/58 (75) 100 12/07/19 16:00 111/58 12/07/19 16:00 23 Mechanical Ventilator 100 12/07/19 16:00 100 12/07/19 16:00 Mechanical Ventilator 12/07/19 15:03 111 21 100 12/07/19 15:00 117 27 128/72 (90) 100 12/07/19 15:00 128/72 12/07/19 15:00 22 Mechanical Ventilator 100 12/07/19 14:30 119 26 132/73 (92) 97 12/07/19 14:00 117 23 128/75 (92) 96 12/07/19 14:00 128/75 12/07/19 14:00 23 Mechanical Ventilator 100 12/07/19 13:30 116 20 126/71 (89) 97 12/07/19 13:00 115 20 129/75 (93) 98 12/07/19 13:00 129/75 12/07/19 13:00 23 Mechanical Ventilator 100 12/07/19 12:30 114 20 129/78 (95) 98 12/07/19 12:00 127/79 12/07/19 12:00 22 Mechanical Ventilator 100 12/07/19 12:00 112 12/07/19 12:00 100 12/07/19 12:00 Mechanical Ventilator 12/07/19 12:00 98.3 114 20 139/76 (97) 96 12/07/19 11:30 112 20 138/81 (100) 97 12/07/19 11:03 112 22 100 12/07/19 11:00 130/81 12/07/19 11:00 22 Mechanical Ventilator 100 12/07/19 11:00 111 20 137/87 (104) 96 Intake and Output 12/07/19 12/08/19 19:00 07:00 Intake Total 1187.93 ml 701.41 ml Output Total 10 ml 5 ml Balance 1177.93 ml 696.41 ml IV Total 887.93 ml 701.41 ml Other 300 ml Output Urine Total 10 ml 5 ml Laboratory Tests 12/07/19 12:35: Sodium Level 140, Potassium Level 5.0, Chloride Level 100, Carbon Dioxide Level 26, Anion Gap 14, Blood Urea Nitrogen 68H, Creatinine 6.6H, Estimat Glomerular Filtration Rate 8.7, Glucose Level 139H, Calcium Level 7.2L 12/08/19 03:26: Sodium Level 140, Potassium Level 5.1, Chloride Level 98, Carbon Dioxide Level 26, Anion Gap 17H, Blood Urea Nitrogen 84H, Creatinine 8.0H, Estimat Glomerular Filtration Rate 7.0, Glucose Level 131H, Calcium Level 6.5L, White Blood Count 22.6*H, Red Blood Count 3.80L, Hemoglobin 11.6L, Hematocrit 35.1L, Mean Corpuscular Volume 93, Mean Corpuscular Hemoglobin 30.4, Mean Corpuscular Hemoglobin Concent 32.9, Red Cell Distribution Width 13.0, Platelet Count 168, Mean Platelet Volume 7.9, Neutrophils (%) (Auto) , Lymphocytes (%) (Auto) , Monocytes (%) (Auto) , Eosinophils (%) (Auto) , Basophils (%) (Auto) , Neutrophils % (Manual) [Pending], Lymphocytes % (Manual) [Pending], Platelet Estimate [Pending], Platelet Morphology [Pending], Total Bilirubin 1.1H, Direct Bilirubin 0.6H, Aspartate Amino Transf (AST/SGOT) 1433H, Alanine Aminotransferase (ALT/SGPT) 662H, Alkaline Phosphatase 83, Total Protein 5.4L, Albumin 2.1L, Globulin 3.3, Albumin/Globulin Ratio 0.6L Height (Feet): 5 Height (Inches): 6.00 Weight (Pounds): 176 Objective General Appearance: other - intubated- proned Lines, tubes and drains: central line HEENT: normocephalic, atraumatic Respiratory/Chest: rhonchi - bilaterally Cardiovascular/Chest: other - tachycardic Extremities: pitting Dorian Soriano M.D. Dec 08, 2019 10:32
[2019-12-08] MEDS ORDERED: Calcium Gluconate 10% 1 GM in NS 110 ML IVPB ONE (10:45)
--- NOTE | 2019-12-08 11:00 | NUR ---
NURSE NOTES: Dr Soriano on the unit assessing pt. Updated him on pt's current condition. New orders received and acknowledged. Will continue to monitor.
--- NOTE | 2019-12-08 12:15 | Pulmonology Progress Note ---
Assessment/Plan Assessment/Plan IMPRESSION: 1. Bilateral pneumonia. 2. Positive COVID-19. 3. Respiratory failure. DISCUSSION: Intubated On AC 20; FiO2 100; PEEP 10; SaO2 95% Abd Xray shows mediastinal PTX Continue proning Switched to Fentanyl due to high triglycerides Continue proning as heart rate tolerates Saturations are better Too high risk for empiric bedside thoracostomy; discussed with Dr Roverto Lau prognosis I will follow carefully. For HD today Sushil Cortes M.D. Subjective ROS Limited/Unobtainable: Yes Interval Events: Intubated ; s/p proning yesterday Constitutional: Reports: fever, other - on vent, poorly responsive HEENT: Repors: no symptoms Respiratory: Reports: no symptoms Cardiovascular: Reports: no symptoms Gastrointestinal/Abdominal: Denies: nausea, vomiting Genitourinary: Reports: no symptoms Psychiatric: Reports: other - NA Skin: Denies: rash Musculoskeletal: Reports: other - NA Allergies: Coded Allergies: No Known Allergies (Unverified , 11/29/19) Objective Last 24 Hour Vital Signs Date Time Temp Pulse Resp B/P (MAP) Pulse Ox O2 Delivery O2 Flow Rate FiO2 12/08/19 11:30 103 23 110/63 (79) 100 12/08/19 11:05 104 27 100 12/08/19 11:00 103 24 112/62 (79) 100 12/08/19 10:30 102 22 112/63 (79) 100 12/08/19 10:00 103 25 112/62 (79) 100 12/08/19 09:00 101 25 109/66 (80) 100 12/08/19 09:00 109/66 12/08/19 09:00 22 Mechanical Ventilator 100 12/08/19 08:30 99 24 111/63 (79) 100 12/08/19 08:05 113/64 12/08/19 08:00 100 12/08/19 08:00 113/64 12/08/19 08:00 22 Mechanical Ventilator 100 12/08/19 08:00 103 12/08/19 08:00 Mechanical Ventilator 12/08/19 08:00 96.7 97 24 113/64 (80) 100 12/08/19 07:01 101 24 100 12/08/19 07:00 115/66 12/08/19 07:00 20 Mechanical Ventilator 100 12/08/19 07:00 98 26 115/66 (82) 100 12/08/19 06:00 110/64 12/08/19 06:00 20 Mechanical Ventilator 100 12/08/19 06:00 101 20 110/64 (79) 100 12/08/19 05:30 104 22 108/65 (79) 100 12/08/19 05:00 112/64 12/08/19 05:00 22 Mechanical Ventilator 100 12/08/19 05:00 102 20 112/64 (80) 100 12/08/19 04:30 95/63 12/08/19 04:30 104 20 95/63 (74) 100 12/08/19 04:00 Mechanical Ventilator 12/08/19 04:00 100 12/08/19 04:00 97.8 109 20 115/63 (80) 100 12/08/19 04:00 115/63 12/08/19 04:00 20 Mechanical Ventilator 100 12/08/19 04:00 109 12/08/19 03:30 109 20 110/59 (76) 100 12/08/19 03:07 103 20 100 12/08/19 03:00 108 21 116/64 (81) 100 12/08/19 03:00 116/64 12/08/19 03:00 20 Mechanical Ventilator 100 12/08/19 02:30 109 19 112/67 (82) 100 12/08/19 02:00 109 19 116/67 (83) 100 12/08/19 02:00 116/67 12/08/19 02:00 19 Mechanical Ventilator 100 12/08/19 01:30 110 19 117/64 (81) 100 12/08/19 01:00 109 19 129/70 (89) 100 12/08/19 01:00 129/70 12/08/19 01:00 19 Mechanical Ventilator 100 12/08/19 00:30 109 18 119/75 (90) 100 12/08/19 00:00 Mechanical Ventilator 12/08/19 00:00 100 12/08/19 00:00 125/73 12/08/19 00:00 20 Endotracheal Tube 100 12/08/19 00:00 111 12/08/19 00:00 98.8 110 20 125/73 (90) 100 12/07/19 23:08 112 20 100 12/07/19 23:00 112 20 127/73 (91) 100 12/07/19 23:00 127/73 12/07/19 23:00 20 Mechanical Ventilator 100 12/07/19 22:30 114 20 134/71 (92) 100 12/07/19 22:00 130/73 12/07/19 22:00 20 Mechanical Ventilator 100 12/07/19 22:00 20 Endotracheal Tube 100 12/07/19 22:00 113 19 130/73 (92) 100 12/07/19 21:30 113 18 128/70 (89) 100 12/07/19 21:00 112 19 121/68 (85) 100 12/07/19 21:00 121/68 12/07/19 21:00 20 Mechanical Ventilator 100 12/07/19 20:31 100 12/07/19 20:31 20 Mechanical Ventilator 100 12/07/19 20:30 110 18 130/69 (89) 100 12/07/19 20:00 Mechanical Ventilator 12/07/19 20:00 113 12/07/19 20:00 99.3 112 18 116/70 (85) 100 12/07/19 20:00 116/70 12/07/19 20:00 20 Mechanical Ventilator 100 12/07/19 19:30 113 18 120/72 (88) 100 12/07/19 19:00 111 21 100 12/07/19 19:00 125/73 12/07/19 19:00 22 Mechanical Ventilator 100 12/07/19 19:00 112 19 125/73 (90) 100 12/07/19 18:30 113 20 122/73 (89) 100 12/07/19 18:00 122/67 12/07/19 18:00 20 Mechanical Ventilator 100 12/07/19 18:00 99.4 113 19 122/67 (85) 100 12/07/19 17:30 112 19 118/67 (84) 100 12/07/19 17:15 111 20 123/67 (85) 100 12/07/19 17:00 128/71 12/07/19 17:00 22 Mechanical Ventilator 100 12/07/19 17:00 109 18 128/71 (90) 100 12/07/19 16:47 113 26 111/58 (75) 100 12/07/19 16:30 100.0 114 20 123/76 (92) 100 12/07/19 16:30 22 Mechanical Ventilator 100 12/07/19 16:00 115 12/07/19 16:00 111 27 111/58 (75) 100 12/07/19 16:00 111/58 12/07/19 16:00 23 Mechanical Ventilator 100 12/07/19 16:00 100 12/07/19 16:00 Mechanical Ventilator 12/07/19 15:03 111 21 100 12/07/19 15:00 117 27 128/72 (90) 100 12/07/19 15:00 128/72 12/07/19 15:00 22 Mechanical Ventilator 100 12/07/19 14:30 119 26 132/73 (92) 97 12/07/19 14:00 117 23 128/75 (92) 96 12/07/19 14:00 128/75 12/07/19 14:00 23 Mechanical Ventilator 100 12/07/19 13:30 116 20 126/71 (89) 97 12/07/19 13:00 115 20 129/75 (93) 98 12/07/19 13:00 129/75 12/07/19 13:00 23 Mechanical Ventilator 100 12/07/19 12:30 114 20 129/78 (95) 98 Intake and Output 12/07/19 12/08/19 19:00 07:00 Intake Total 1187.93 ml 701.41 ml Output Total 10 ml 5 ml Balance 1177.93 ml 696.41 ml IV Total 887.93 ml 701.41 ml Other 300 ml Output Urine Total 10 ml 5 ml General Appearance: other - on vent and pressors HEENT: normocephalic, atraumatic, other - oral - intubated Respiratory/Chest: chest wall non-tender, lungs clear Cardiovascular: normal peripheral pulses, normal rate Abdomen: normal bowel sounds, soft, non tender, no organomegaly Genitourinary: other Extremities: no cyanosis Skin: no rash Neurologic/Psychiatric: motor weakness, other - lethargic Lymphatic: no neck adenopathy Musculoskeletal: no effusion Laboratory Tests 12/07/19 12:35: Sodium Level 140, Potassium Level 5.0, Chloride Level 100, Carbon Dioxide Level 26, Anion Gap 14, Blood Urea Nitrogen 68H, Creatinine 6.6H, Estimat Glomerular Filtration Rate 8.7, Glucose Level 139H, Calcium Level 7.2L 12/08/19 03:26: Sodium Level 140, Potassium Level 5.1, Chloride Level 98, Carbon Dioxide Level 26, Anion Gap 17H, Blood Urea Nitrogen 84H, Creatinine 8.0H, Estimat Glomerular Filtration Rate 7.0, Glucose Level 131H, Calcium Level 6.5L, White Blood Count 22.6*H, Red Blood Count 3.80L, Hemoglobin 11.6L, Hematocrit 35.1L, Mean Corpuscular Volume 93, Mean Corpuscular Hemoglobin 30.4, Mean Corpuscular Hemoglobin Concent 32.9, Red Cell Distribution Width 13.0, Platelet Count 168, Mean Platelet Volume 7.9, Neutrophils (%) (Auto) , Lymphocytes (%) (Auto) , Monocytes (%) (Auto) , Eosinophils (%) (Auto) , Basophils (%) (Auto) , Differential Total Cells Counted 100, Neutrophils % (Manual) 89H, Lymphocytes % (Manual) 5L, Monocytes % (Manual) 6, Eosinophils % (Manual) 0, Basophils % ( Manual) 0, Band Neutrophils 0, Platelet Estimate Adequate, Platelet Morphology Normal, Hypochromasia 1+, Anisocytosis 1+, Total Bilirubin 1.1H, Direct Bilirubin 0.6H, Aspartate Amino Transf (AST/SGOT) 1433H, Alanine Aminotransferase (ALT/SGPT) 662H, Alkaline Phosphatase 83, Total Protein 5.4L, Albumin 2.1L, Globulin 3.3, Albumin/Globulin Ratio 0.6L Current Medications Medications (Trade) Dose Ordered Sig/Vicki Route PRN Reason Start Time Stop Time Status Last Admin Dose Admin Acetaminophen (Tylenol) 650 mg Q4H PRN NG Temp >100.5 12/06/19 14:15 01/05/20 14:14 12/06/19 14:40 Acetaminophen (Tylenol) 650 mg Q4H PRN RECTAL Mild Pain (Pain Scale 1-3) 12/04/19 11:45 01/03/20 11:44 12/06/19 19:17 Chlorhexidine Gluconate (Arely-Hex 2%) 1 applic DAILY@1999 TOPIC 12/05/19 20:00 03/04/20 19:59 12/07/19 20:23 Dextrose (Dextrose 50%) 25 ml Q30M PRN IV Hypoglycemia 11/29/19 14:15 02/27/20 14:14 Dextrose (Dextrose 50%) 50 ml Q30M PRN IV Hypoglycemia 11/29/19 14:15 02/27/20 14:14 Fentanyl Citrate 2500 mcg/Sodium Chloride 250 ml @ 0 mls/hr Q24H IVPB 12/06/19 02:00 12/13/19 01:59 12/07/19 20:31 Heparin Sodium (Porcine) (Heparin 5000 units/ml) 5,000 units EVERY 8 HOURS SUBQ 11/30/19 14:00 01/14/20 13:59 12/08/19 05:02 Hydralazine HCl (Apresoline) 10 mg Q4H PRN IV For High Blood Pressure 11/29/19 15:15 02/27/20 15:14 Norepinephrine Bitartrate 16 mg/ Dextrose 566 ml @ 0 mls/hr Q24H IV 12/06/19 09:00 01/05/20 08:59 12/08/19 08:05 Ondansetron HCl (Zofran) 4 mg Q6H PRN IVP Nausea & Vomiting 11/29/19 14:15 12/29/19 14:14 Pantoprazole (Protonix) 40 mg DAILY IVP 11/30/19 12:15 12/30/19 12:14 12/08/19 08:05 Piperacillin Sod/ Tazobactam Sod 3.375 gm/Dextrose 55 ml @ 13 mls/hr Q12H IVPB 12/08/19 12:00 12/15/19 11:59 Vasopressin 100 units/Sodium Chloride 100 ml @ 0 mls/hr Q24H IV 12/06/19 09:00 01/05/20 08:59 12/06/19 09:03 Sushil Cortes MD Dec 08, 2019 12:15
[2019-12-08] MEDS: Piperacillin/Tazobactam 3.375 GM in D5W 55 ML IVPB SCH ×2 (12:28→23:31)
--- NOTE | 2019-12-08 12:57 | GI Progress Note ---
Assessment/Plan Problems: (1) Suspected COVID-19 virus infection ICD Codes: R68.89 - Other general symptoms and signs SNOMED: 028696514 (2) Elevated LFTs ICD Codes: R79.89 - Other specified abnormal findings of blood chemistry SNOMED: 433213474, 703576903 Status: unchanged Status Narrative Discussed with Dr. Rdz. Assessment/Plan elevated LFTS most likely due to COVID repeat labs in am hepatitis panel >> negative abd us pending GTFs The patient was seen and examined at bedside and all new and available data was reviewed in the patients chart. I agree with the above findings, impression and plan. (Patient seen earlier today. Signature stamp does not reflect patient encounter time.). - João Rdz MD Subjective Subjective limited Objective Last 24 Hour Vital Signs Date Time Temp Pulse Resp B/P (MAP) Pulse Ox O2 Delivery O2 Flow Rate FiO2 12/08/19 12:00 97.7 105 22 115/63 (80) 100 12/08/19 12:00 100 12/08/19 12:00 Mechanical Ventilator 12/08/19 11:30 103 23 110/63 (79) 100 12/08/19 11:05 104 27 100 12/08/19 11:00 103 24 112/62 (79) 100 12/08/19 10:30 102 22 112/63 (79) 100 12/08/19 10:00 103 25 112/62 (79) 100 12/08/19 09:00 101 25 109/66 (80) 100 12/08/19 09:00 109/66 12/08/19 09:00 22 Mechanical Ventilator 100 12/08/19 08:30 99 24 111/63 (79) 100 12/08/19 08:05 113/64 12/08/19 08:00 100 12/08/19 08:00 113/64 12/08/19 08:00 22 Mechanical Ventilator 100 12/08/19 08:00 103 12/08/19 08:00 Mechanical Ventilator 12/08/19 08:00 96.7 97 24 113/64 (80) 100 12/08/19 07:01 101 24 100 12/08/19 07:00 115/66 12/08/19 07:00 20 Mechanical Ventilator 100 12/08/19 07:00 98 26 115/66 (82) 100 12/08/19 06:00 110/64 12/08/19 06:00 20 Mechanical Ventilator 100 12/08/19 06:00 101 20 110/64 (79) 100 12/08/19 05:30 104 22 108/65 (79) 100 12/08/19 05:00 112/64 12/08/19 05:00 22 Mechanical Ventilator 100 12/08/19 05:00 102 20 112/64 (80) 100 12/08/19 04:30 95/63 12/08/19 04:30 104 20 95/63 (74) 100 12/08/19 04:00 Mechanical Ventilator 12/08/19 04:00 100 12/08/19 04:00 97.8 109 20 115/63 (80) 100 12/08/19 04:00 115/63 12/08/19 04:00 20 Mechanical Ventilator 100 12/08/19 04:00 109 12/08/19 03:30 109 20 110/59 (76) 100 12/08/19 03:07 103 20 100 12/08/19 03:00 108 21 116/64 (81) 100 12/08/19 03:00 116/64 12/08/19 03:00 20 Mechanical Ventilator 100 12/08/19 02:30 109 19 112/67 (82) 100 12/08/19 02:00 109 19 116/67 (83) 100 12/08/19 02:00 116/67 12/08/19 02:00 19 Mechanical Ventilator 100 12/08/19 01:30 110 19 117/64 (81) 100 12/08/19 01:00 109 19 129/70 (89) 100 12/08/19 01:00 129/70 12/08/19 01:00 19 Mechanical Ventilator 100 12/08/19 00:30 109 18 119/75 (90) 100 12/08/19 00:00 Mechanical Ventilator 12/08/19 00:00 100 12/08/19 00:00 125/73 12/08/19 00:00 20 Endotracheal Tube 100 12/08/19 00:00 111 12/08/19 00:00 98.8 110 20 125/73 (90) 100 12/07/19 23:08 112 20 100 12/07/19 23:00 112 20 127/73 (91) 100 12/07/19 23:00 127/73 12/07/19 23:00 20 Mechanical Ventilator 100 12/07/19 22:30 114 20 134/71 (92) 100 12/07/19 22:00 130/73 12/07/19 22:00 20 Mechanical Ventilator 100 12/07/19 22:00 20 Endotracheal Tube 100 12/07/19 22:00 113 19 130/73 (92) 100 12/07/19 21:30 113 18 128/70 (89) 100 12/07/19 21:00 112 19 121/68 (85) 100 12/07/19 21:00 121/68 12/07/19 21:00 20 Mechanical Ventilator 100 12/07/19 20:31 100 12/07/19 20:31 20 Mechanical Ventilator 100 12/07/19 20:30 110 18 130/69 (89) 100 12/07/19 20:00 Mechanical Ventilator 12/07/19 20:00 113 12/07/19 20:00 99.3 112 18 116/70 (85) 100 12/07/19 20:00 116/70 12/07/19 20:00 20 Mechanical Ventilator 100 12/07/19 19:30 113 18 120/72 (88) 100 12/07/19 19:00 111 21 100 12/07/19 19:00 125/73 12/07/19 19:00 22 Mechanical Ventilator 100 12/07/19 19:00 112 19 125/73 (90) 100 12/07/19 18:30 113 20 122/73 (89) 100 12/07/19 18:00 122/67 12/07/19 18:00 20 Mechanical Ventilator 100 12/07/19 18:00 99.4 113 19 122/67 (85) 100 12/07/19 17:30 112 19 118/67 (84) 100 12/07/19 17:15 111 20 123/67 (85) 100 12/07/19 17:00 128/71 12/07/19 17:00 22 Mechanical Ventilator 100 12/07/19 17:00 109 18 128/71 (90) 100 12/07/19 16:47 113 26 111/58 (75) 100 12/07/19 16:30 100.0 114 20 123/76 (92) 100 12/07/19 16:30 22 Mechanical Ventilator 100 12/07/19 16:00 115 12/07/19 16:00 111 27 111/58 (75) 100 12/07/19 16:00 111/58 12/07/19 16:00 23 Mechanical Ventilator 100 12/07/19 16:00 100 12/07/19 16:00 Mechanical Ventilator 12/07/19 15:03 111 21 100 12/07/19 15:00 117 27 128/72 (90) 100 12/07/19 15:00 128/72 12/07/19 15:00 22 Mechanical Ventilator 100 12/07/19 14:30 119 26 132/73 (92) 97 12/07/19 14:00 117 23 128/75 (92) 96 12/07/19 14:00 128/75 12/07/19 14:00 23 Mechanical Ventilator 100 12/07/19 13:30 116 20 126/71 (89) 97 12/07/19 13:00 115 20 129/75 (93) 98 12/07/19 13:00 129/75 12/07/19 13:00 23 Mechanical Ventilator 100 Intake and Output 12/07/19 12/08/19 19:00 07:00 Intake Total 1187.93 ml 701.41 ml Output Total 10 ml 5 ml Balance 1177.93 ml 696.41 ml IV Total 887.93 ml 701.41 ml Other 300 ml Output Urine Total 10 ml 5 ml Laboratory Tests Test 12/08/19 03:26 White Blood Count 22.6 K/UL (4.8-10.8) *H Red Blood Count 3.80 M/UL (4.70-6.10) L Hemoglobin 11.6 G/DL (14.2-18.0) L Hematocrit 35.1 % (42.0-52.0) L Mean Corpuscular Volume 93 FL (80-99) Mean Corpuscular Hemoglobin 30.4 PG (27.0-31.0) Mean Corpuscular Hemoglobin Concent 32.9 G/DL (32.0-36.0) Red Cell Distribution Width 13.0 % (11.6-14.8) Platelet Count 168 K/UL (150-450) Mean Platelet Volume 7.9 FL (6.5-10.1) Neutrophils (%) (Auto) % (45.0-75.0) Lymphocytes (%) (Auto) % (20.0-45.0) Monocytes (%) (Auto) % (1.0-10.0) Eosinophils (%) (Auto) % (0.0-3.0) Basophils (%) (Auto) % (0.0-2.0) Differential Total Cells Counted 100 Neutrophils % (Manual) 89 % (45-75) H Lymphocytes % (Manual) 5 % (20-45) L Monocytes % (Manual) 6 % (1-10) Eosinophils % (Manual) 0 % (0-3) Basophils % (Manual) 0 % (0-2) Band Neutrophils 0 % (0-8) Platelet Estimate Adequate Platelet Morphology Normal Hypochromasia 1+ Anisocytosis 1+ Sodium Level 140 MMOL/L (136-145) Potassium Level 5.1 MMOL/L (3.5-5.1) Chloride Level 98 MMOL/L (98-107) Carbon Dioxide Level 26 MMOL/L (21-32) Anion Gap 17 mmol/L (5-15) H Blood Urea Nitrogen 84 mg/dL (7-18) H Creatinine 8.0 MG/DL (0.55-1.30) H Estimat Glomerular Filtration Rate 7.0 mL/min (>60) Glucose Level 131 MG/DL (74-106) H Calcium Level 6.5 MG/DL (8.5-10.1) L Total Bilirubin 1.1 MG/DL (0.2-1.0) H Direct Bilirubin 0.6 MG/DL (0.0-0.3) H Aspartate Amino Transf (AST/SGOT) 1433 U/L (15-37) H Alanine Aminotransferase (ALT/SGPT) 662 U/L (12-78) H Alkaline Phosphatase 83 U/L (46-116) Total Protein 5.4 G/DL (6.4-8.2) L Albumin 2.1 G/DL (3.4-5.0) L Globulin 3.3 g/dL Albumin/Globulin Ratio 0.6 (1.0-2.7) L Height (Feet): 5 Height (Inches): 6.00 Weight (Pounds): 176 General Appearance: WD/WN, no apparent distress Respiratory/Chest: no respiratory distress Abdominal Exam: normal bowel sounds, non tender, soft Extremities: non-tender Ronda Gordillo [employer]ACEMENT ASSISTANT Dec 08, 2019 12:57
--- NOTE | 2019-12-08 13:00 | NUR ---
HAND-OFF: Report given to DARYA Maldonado.
--- NOTE | 2019-12-08 14:56 | General Progress Note ---
Assessment/Plan Status: unchanged Assessment/Plan: 59-year-old male with PMH of HTN presents with acute respiratory distress. #Acute Hypoxic Respiratory Failure s/p intubation #Severe sepsis #COVID19 positive #CAP #elevated d-dimer #Fevers -Appreciate ICU level of care -s/p Intubation 12/03 -vent management per Pulm/ICU/CCM team -cont. droplet & isolation precautions -Transaminitis/d-dimer/fluctuating fevers likely reactive/ 2/2 COVID -cont. to monitor LFTs -11/25 BCx NGTD -EKG reviewed, sinus tach, HR 115, QTc 437 -trop negative x1, no CP at this time -s/p hydroxychloroquine -prone position per Pulm -Pulm following, recs appreciated -ID, Dr. Rodriguez, following: Merrem, Vanc -grave prognosis #Pneumomediastinum #Subcutaneous emphysema -seen on abd XR -pt too high risk for bedside thoracostomy -d/w general sx and pulm/ICU #ALBARO #Hypernatremia #Hyperkalemia -likely 2/2 to above, COVID -kayexalate, insulin, D5 for hyperkalemia -cont. to montior -12/04: femoral HD cath placed -d/w Nephro, Dr. Soriano, plan for HD today #Transaminitis -likely 2/2 to above -worsening -GI consulted, recs appreciated #Sinus Tachycardia 2/2 respiratory failure #HTN -hydralazine PRN -Cardio, , following: Echo after COVID negative DVT PPX: Lovenox Pt is at high risk of rapid decompensation and requires continued ICU level of care Prognosis grave/poor Time spent on encounter: 75 mins, 40 mins spent on critical care time. Subjective Date patient seen: Dec 08, 2019 Allergies: Coded Allergies: No Known Allergies (Unverified , 11/29/19) Subjective intubated and sedated hd today proning as tolerated to high risk for trach Objective Last 24 Hour Vital Signs Date Time Temp Pulse Resp B/P (MAP) Pulse Ox O2 Delivery O2 Flow Rate FiO2 12/08/19 12:00 97.7 105 22 115/63 (80) 100 12/08/19 12:00 100 12/08/19 12:00 Mechanical Ventilator 12/08/19 11:30 103 23 110/63 (79) 100 12/08/19 11:05 104 27 100 12/08/19 11:00 103 24 112/62 (79) 100 12/08/19 10:30 102 22 112/63 (79) 100 12/08/19 10:00 103 25 112/62 (79) 100 12/08/19 09:00 101 25 109/66 (80) 100 12/08/19 09:00 109/66 12/08/19 09:00 22 Mechanical Ventilator 100 12/08/19 08:30 99 24 111/63 (79) 100 12/08/19 08:05 113/64 12/08/19 08:00 100 12/08/19 08:00 113/64 12/08/19 08:00 22 Mechanical Ventilator 100 12/08/19 08:00 103 12/08/19 08:00 Mechanical Ventilator 12/08/19 08:00 96.7 97 24 113/64 (80) 100 12/08/19 07:01 101 24 100 12/08/19 07:00 115/66 12/08/19 07:00 20 Mechanical Ventilator 100 12/08/19 07:00 98 26 115/66 (82) 100 12/08/19 06:00 110/64 12/08/19 06:00 20 Mechanical Ventilator 100 12/08/19 06:00 101 20 110/64 (79) 100 12/08/19 05:30 104 22 108/65 (79) 100 12/08/19 05:00 112/64 12/08/19 05:00 22 Mechanical Ventilator 100 12/08/19 05:00 102 20 112/64 (80) 100 12/08/19 04:30 95/63 12/08/19 04:30 104 20 95/63 (74) 100 12/08/19 04:00 Mechanical Ventilator 12/08/19 04:00 100 12/08/19 04:00 97.8 109 20 115/63 (80) 100 12/08/19 04:00 115/63 12/08/19 04:00 20 Mechanical Ventilator 100 12/08/19 04:00 109 12/08/19 03:30 109 20 110/59 (76) 100 12/08/19 03:07 103 20 100 12/08/19 03:00 108 21 116/64 (81) 100 12/08/19 03:00 116/64 12/08/19 03:00 20 Mechanical Ventilator 100 12/08/19 02:30 109 19 112/67 (82) 100 12/08/19 02:00 109 19 116/67 (83) 100 12/08/19 02:00 116/67 12/08/19 02:00 19 Mechanical Ventilator 100 12/08/19 01:30 110 19 117/64 (81) 100 12/08/19 01:00 109 19 129/70 (89) 100 12/08/19 01:00 129/70 12/08/19 01:00 19 Mechanical Ventilator 100 12/08/19 00:30 109 18 119/75 (90) 100 12/08/19 00:00 Mechanical Ventilator 12/08/19 00:00 100 12/08/19 00:00 125/73 12/08/19 00:00 20 Endotracheal Tube 100 12/08/19 00:00 111 12/08/19 00:00 98.8 110 20 125/73 (90) 100 12/07/19 23:08 112 20 100 12/07/19 23:00 112 20 127/73 (91) 100 12/07/19 23:00 127/73 12/07/19 23:00 20 Mechanical Ventilator 100 12/07/19 22:30 114 20 134/71 (92) 100 12/07/19 22:00 130/73 12/07/19 22:00 20 Mechanical Ventilator 100 12/07/19 22:00 20 Endotracheal Tube 100 12/07/19 22:00 113 19 130/73 (92) 100 12/07/19 21:30 113 18 128/70 (89) 100 12/07/19 21:00 112 19 121/68 (85) 100 12/07/19 21:00 121/68 12/07/19 21:00 20 Mechanical Ventilator 100 12/07/19 20:31 100 12/07/19 20:31 20 Mechanical Ventilator 100 12/07/19 20:30 110 18 130/69 (89) 100 12/07/19 20:00 Mechanical Ventilator 12/07/19 20:00 113 12/07/19 20:00 99.3 112 18 116/70 (85) 100 12/07/19 20:00 116/70 12/07/19 20:00 20 Mechanical Ventilator 100 12/07/19 19:30 113 18 120/72 (88) 100 12/07/19 19:00 111 21 100 12/07/19 19:00 125/73 12/07/19 19:00 22 Mechanical Ventilator 100 12/07/19 19:00 112 19 125/73 (90) 100 12/07/19 18:30 113 20 122/73 (89) 100 12/07/19 18:00 122/67 12/07/19 18:00 20 Mechanical Ventilator 100 12/07/19 18:00 99.4 113 19 122/67 (85) 100 12/07/19 17:30 112 19 118/67 (84) 100 12/07/19 17:15 111 20 123/67 (85) 100 12/07/19 17:00 128/71 12/07/19 17:00 22 Mechanical Ventilator 100 12/07/19 17:00 109 18 128/71 (90) 100 12/07/19 16:47 113 26 111/58 (75) 100 12/07/19 16:30 100.0 114 20 123/76 (92) 100 12/07/19 16:30 22 Mechanical Ventilator 100 12/07/19 16:00 115 12/07/19 16:00 111 27 111/58 (75) 100 12/07/19 16:00 111/58 12/07/19 16:00 23 Mechanical Ventilator 100 12/07/19 16:00 100 12/07/19 16:00 Mechanical Ventilator 12/07/19 15:03 111 21 100 12/07/19 15:00 117 27 128/72 (90) 100 12/07/19 15:00 128/72 12/07/19 15:00 22 Mechanical Ventilator 100 Intake and Output 12/07/19 12/08/19 19:00 07:00 Intake Total 1187.93 ml 701.41 ml Output Total 10 ml 5 ml Balance 1177.93 ml 696.41 ml IV Total 887.93 ml 701.41 ml Other 300 ml Output Urine Total 10 ml 5 ml Laboratory Tests 12/08/19 03:26: White Blood Count 22.6*H, Red Blood Count 3.80L, Hemoglobin 11.6L, Hematocrit 35.1L, Mean Corpuscular Volume 93, Mean Corpuscular Hemoglobin 30.4, Mean Corpuscular Hemoglobin Concent 32.9, Red Cell Distribution Width 13.0, Platelet Count 168, Mean Platelet Volume 7.9, Neutrophils (%) (Auto) , Lymphocytes (%) ( Auto) , Monocytes (%) (Auto) , Eosinophils (%) (Auto) , Basophils (%) (Auto) , Differential Total Cells Counted 100, Neutrophils % (Manual) 89H, Lymphocytes % (Manual) 5L, Monocytes % (Manual) 6, Eosinophils % (Manual) 0, Basophils % ( Manual) 0, Band Neutrophils 0, Platelet Estimate Adequate, Platelet Morphology Normal, Hypochromasia 1+, Anisocytosis 1+, Sodium Level 140, Potassium Level 5.1 , Chloride Level 98, Carbon Dioxide Level 26, Anion Gap 17H, Blood Urea Nitrogen 84H, Creatinine 8.0H, Estimat Glomerular Filtration Rate 7.0, Glucose Level 131H, Calcium Level 6.5L, Total Bilirubin 1.1H, Direct Bilirubin 0.6H, Aspartate Amino Transf (AST/SGOT) 1433H, Alanine Aminotransferase (ALT/SGPT) 662H, Alkaline Phosphatase 83, Total Protein 5.4L, Albumin 2.1L, Globulin 3.3, Albumin/Globulin Ratio 0.6L Height (Feet): 5 Height (Inches): 6.00 Weight (Pounds): 176 Objective PE per RN report: See Pulm note for details Mechanical BS ant lung solares, min secretions S1, S2 Abd non distended Extrem cool as expected on NE gtt Jus Forbes MD Dec 08, 2019 14:56
--- NOTE | 2019-12-08 15:00 | NUR ---
NURSE NOTES: Pt cleaned, turned, and repositioned. No distress noted at this time. Awaiting arrival of dialysis nurse. Remains on Levo 6mcg/min and Fentanyl 150mcg/hr
[2019-12-08] MEDS: fentaNYL Citrate 2,500 MCG in NS 200 ML IVPB SCH (15:15)
--- NOTE | 2019-12-08 18:30 | NUR ---
NURSE NOTES: VIP dialysis nurse, Hari, at bedside. Hooking up pt to dialysis machine.
--- NOTE | 2019-12-08 19:25 | NUR ---
HAND-OFF: Report given to DARYA Maldonado.
--- NOTE | 2019-12-08 19:29 | Infectious Diseases Prog Note ---
Assessment/Plan Assessment/Plan ASSESSMENT AND PLAN: 1. covid-19 virus infection with pna, rule out bacterial pna, sepsis/shock, fevers, leukocytosis vent, respiratory failure, ? 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 Hypertension. 3. No known allergies. 4. Social history negative. 5. Family history noncontributory. 6. MAR was noted. 7. Case discussed with RN. 8. Continue treatment per primary consultants. Subjective Constitutional: Reports: fever, fatigue, other - lethargic, weak, on pressors HEENT: Reports: congestion Respiratory: Reports: shortness of breath Cardiovascular: Reports: other - on pressors Gastrointestinal/Abdominal: Denies: nausea, vomiting Genitourinary: Reports: other - + barnes - urine slt cloudy Neurologic: Reports: weakness, other - lethargic Psychiatric: Reports: other - NA Skin: Denies: rash Hematologic: Denies: bleeding Musculoskeletal: Reports: other - NA Allergies: Coded Allergies: No Known Allergies (Unverified , 11/29/19) Objective Vital Signs Last 24 Hour Vital Signs Date Time Temp Pulse Resp B/P (MAP) Pulse Ox O2 Delivery O2 Flow Rate FiO2 12/08/19 19:00 83 24 139/78 (98) 100 12/08/19 19:00 139/78 12/08/19 19:00 23 Mechanical Ventilator 100 12/08/19 18:30 90 30 124/65 (84) 100 12/08/19 18:00 124/67 12/08/19 18:00 22 Mechanical Ventilator 100 12/08/19 18:00 90 28 132/71 (91) 100 12/08/19 17:30 95 25 117/66 (83) 100 12/08/19 17:00 99 26 124/67 (86) 100 12/08/19 17:00 124/67 12/08/19 17:00 23 Mechanical Ventilator 100 12/08/19 16:30 101 27 118/63 (81) 100 12/08/19 16:00 101 12/08/19 16:00 100 4/26/20 16:00 97.7 100 26 121/67 (85) 100 12/08/19 16:00 121/67 12/08/19 16:00 23 Mechanical Ventilator 100 12/08/19 16:00 Mechanical Ventilator 12/08/19 15:30 108 20 139/68 (91) 100 12/08/19 15:15 22 Mechanical Ventilator 100 12/08/19 15:06 108 23 100 12/08/19 15:00 112 20 122/63 (82) 100 12/08/19 15:00 122/63 12/08/19 14:30 111 23 116/59 (78) 99 12/08/19 14:00 110 19 118/61 (80) 100 12/08/19 14:00 118/61 12/08/19 13:30 108 22 109/62 (78) 100 12/08/19 13:00 108 23 110/62 (78) 100 12/08/19 13:00 110/62 12/08/19 13:00 23 Mechanical Ventilator 100 12/08/19 12:00 97.7 105 22 115/63 (80) 100 12/08/19 12:00 105 12/08/19 12:00 115/63 12/08/19 12:00 22 Mechanical Ventilator 100 12/08/19 12:00 100 12/08/19 12:00 Mechanical Ventilator 12/08/19 11:30 103 23 110/63 (79) 100 12/08/19 11:05 104 27 100 12/08/19 11:00 103 24 112/62 (79) 100 12/08/19 11:00 112/62 12/08/19 11:00 22 Mechanical Ventilator 100 12/08/19 10:30 102 22 112/63 (79) 100 12/08/19 10:00 110/63 12/08/19 10:00 22 Mechanical Ventilator 100 12/08/19 10:00 103 25 112/62 (79) 100 12/08/19 09:00 101 25 109/66 (80) 100 12/08/19 09:00 109/66 12/08/19 09:00 22 Mechanical Ventilator 100 12/08/19 08:30 99 24 111/63 (79) 100 12/08/19 08:05 113/64 12/08/19 08:00 100 12/08/19 08:00 113/64 12/08/19 08:00 22 Mechanical Ventilator 100 12/08/19 08:00 103 12/08/19 08:00 Mechanical Ventilator 12/08/19 08:00 96.7 97 24 113/64 (80) 100 12/08/19 07:01 101 24 100 12/08/19 07:00 115/66 12/08/19 07:00 20 Mechanical Ventilator 100 12/08/19 07:00 98 26 115/66 (82) 100 12/08/19 06:00 110/64 12/08/19 06:00 20 Mechanical Ventilator 100 12/08/19 06:00 101 20 110/64 (79) 100 12/08/19 05:30 104 22 108/65 (79) 100 12/08/19 05:00 112/64 12/08/19 05:00 22 Mechanical Ventilator 100 12/08/19 05:00 102 20 112/64 (80) 100 12/08/19 04:30 95/63 12/08/19 04:30 104 20 95/63 (74) 100 12/08/19 04:00 Mechanical Ventilator 12/08/19 04:00 100 12/08/19 04:00 97.8 109 20 115/63 (80) 100 12/08/19 04:00 115/63 12/08/19 04:00 20 Mechanical Ventilator 100 12/08/19 04:00 109 12/08/19 03:30 109 20 110/59 (76) 100 12/08/19 03:07 103 20 100 12/08/19 03:00 108 21 116/64 (81) 100 12/08/19 03:00 116/64 12/08/19 03:00 20 Mechanical Ventilator 100 12/08/19 02:30 109 19 112/67 (82) 100 12/08/19 02:00 109 19 116/67 (83) 100 12/08/19 02:00 116/67 12/08/19 02:00 19 Mechanical Ventilator 100 12/08/19 01:30 110 19 117/64 (81) 100 12/08/19 01:00 109 19 129/70 (89) 100 12/08/19 01:00 129/70 12/08/19 01:00 19 Mechanical Ventilator 100 12/08/19 00:30 109 18 119/75 (90) 100 12/08/19 00:00 Mechanical Ventilator 12/08/19 00:00 100 12/08/19 00:00 125/73 12/08/19 00:00 20 Endotracheal Tube 100 12/08/19 00:00 111 12/08/19 00:00 98.8 110 20 125/73 (90) 100 12/07/19 23:08 112 20 100 12/07/19 23:00 112 20 127/73 (91) 100 12/07/19 23:00 127/73 12/07/19 23:00 20 Mechanical Ventilator 100 12/07/19 22:30 114 20 134/71 (92) 100 12/07/19 22:00 130/73 12/07/19 22:00 20 Mechanical Ventilator 100 12/07/19 22:00 20 Endotracheal Tube 100 12/07/19 22:00 113 19 130/73 (92) 100 12/07/19 21:30 113 18 128/70 (89) 100 12/07/19 21:00 112 19 121/68 (85) 100 12/07/19 21:00 121/68 12/07/19 21:00 20 Mechanical Ventilator 100 12/07/19 20:31 100 12/07/19 20:31 20 Mechanical Ventilator 100 12/07/19 20:30 110 18 130/69 (89) 100 12/07/19 20:00 Mechanical Ventilator 12/07/19 20:00 113 12/07/19 20:00 99.3 112 18 116/70 (85) 100 12/07/19 20:00 116/70 12/07/19 20:00 20 Mechanical Ventilator 100 12/07/19 19:30 113 18 120/72 (88) 100 Height (Feet): 5 Height (Inches): 6.00 Weight (Pounds): 176 General Appearance: other - on vent and pressors HEENT: no JVD, other - oral - intubated Respiratory/Chest: crackles/rales, rhonchi - bilaterally Cardiovascular: normal rate, regular rhythm Abdomen: normal bowel sounds, soft, non tender, no organomegaly Genitourinary: other - + barnes - urine slt cloudy Extremities: no cyanosis Skin: no rash Neurologic/Psychiatric: motor weakness, other - lethargic Lymphatic: no neck adenopathy Musculoskeletal: no effusion Objective Chest x-ray - 12/02/19 - Procedure: XRAY Chest 1v EXAM: XR Chest, 1 View CLINICAL HISTORY: ABN CHST TECHNIQUE: Frontal view of the chest. COMPARISON: Chest x-ray dated 11/29/19 FINDINGS: Lungs: Persistent diffuse peripheral groundglass opacities, not significantly changed, concerning for pneumonia. Pleural space: Unremarkable. The costophrenic angles are sharp. No visible pneumothorax. Heart: Unremarkable. No cardiomegaly. Mediastinum: Unremarkable. Bones/joints: Mild degenerative changes throughout the visualized spine. Tubes, lines and devices: Telemetry leads overlie the thorax. IMPRESSION: No significant change compared to the prior chest x-ray. Persistent diffuse peripheral groundglass opacities, concerning for pneumonia. Chest x-ray - 12/07/19 - COMPARISON: Chest x-ray 12/06/19 1317 FINDINGS: Lungs: Diffuse bilateral airspace opacities, improved in the left lung and slightly worsened in the right lung. Pleural space: Unremarkable. No pneumothorax. Heart: Mild cardiomegaly. Mediastinum: Unremarkable. Bones/joints: Mild degenerative changes of spine. Tubes, lines and devices: Endotracheal tube and NG tube are stable. IMPRESSION: Diffuse bilateral airspace opacities, improved in the left lung and slightly worsened in the right lung. Microbiology Date/Time Source Procedure Growth Status 12/04/19 12:46 Blood Blood Culture - Preliminary NO GROWTH AFTER 72 HOURS Resulted 12/04/19 23:00 Sputum Gram Stain - Final Complete 12/04/19 23:00 Sputum Sputum Culture - Final NORMAL UPPER RESPIRATORY ALISIA PRESENT Complete 12/05/19 02:24 Urine,Clean Catch Urine Culture - Final NO GROWTH AFTER 48 HOURS Complete Laboratory Tests Test 12/08/19 03:26 White Blood Count 22.6 K/UL (4.8-10.8) *H Red Blood Count 3.80 M/UL (4.70-6.10) L Hemoglobin 11.6 G/DL (14.2-18.0) L Hematocrit 35.1 % (42.0-52.0) L Mean Corpuscular Volume 93 FL (80-99) Mean Corpuscular Hemoglobin 30.4 PG (27.0-31.0) Mean Corpuscular Hemoglobin Concent 32.9 G/DL (32.0-36.0) Red Cell Distribution Width 13.0 % (11.6-14.8) Platelet Count 168 K/UL (150-450) Mean Platelet Volume 7.9 FL (6.5-10.1) Neutrophils (%) (Auto) % (45.0-75.0) Lymphocytes (%) (Auto) % (20.0-45.0) Monocytes (%) (Auto) % (1.0-10.0) Eosinophils (%) (Auto) % (0.0-3.0) Basophils (%) (Auto) % (0.0-2.0) Differential Total Cells Counted 100 Neutrophils % (Manual) 89 % (45-75) H Lymphocytes % (Manual) 5 % (20-45) L Monocytes % (Manual) 6 % (1-10) Eosinophils % (Manual) 0 % (0-3) Basophils % (Manual) 0 % (0-2) Band Neutrophils 0 % (0-8) Platelet Estimate Adequate Platelet Morphology Normal Hypochromasia 1+ Anisocytosis 1+ Sodium Level 140 MMOL/L (136-145) Potassium Level 5.1 MMOL/L (3.5-5.1) Chloride Level 98 MMOL/L (98-107) Carbon Dioxide Level 26 MMOL/L (21-32) Anion Gap 17 mmol/L (5-15) H Blood Urea Nitrogen 84 mg/dL (7-18) H Creatinine 8.0 MG/DL (0.55-1.30) H Estimat Glomerular Filtration Rate 7.0 mL/min (>60) Glucose Level 131 MG/DL (74-106) H Calcium Level 6.5 MG/DL (8.5-10.1) L Total Bilirubin 1.1 MG/DL (0.2-1.0) H Direct Bilirubin 0.6 MG/DL (0.0-0.3) H Aspartate Amino Transf (AST/SGOT) 1433 U/L (15-37) H Alanine Aminotransferase (ALT/SGPT) 662 U/L (12-78) H Alkaline Phosphatase 83 U/L (46-116) Total Protein 5.4 G/DL (6.4-8.2) L Albumin 2.1 G/DL (3.4-5.0) L Globulin 3.3 g/dL Albumin/Globulin Ratio 0.6 (1.0-2.7) L Current Medications Medications (Trade) Dose Ordered Sig/Vicki Route PRN Reason Start Time Stop Time Status Last Admin Dose Admin Acetaminophen (Tylenol) 650 mg Q4H PRN NG Temp >100.5 12/06/19 14:15 01/05/20 14:14 12/06/19 14:40 Acetaminophen (Tylenol) 650 mg Q4H PRN RECTAL Mild Pain (Pain Scale 1-3) 12/04/19 11:45 01/03/20 11:44 12/06/19 19:17 Chlorhexidine Gluconate (Arely-Hex 2%) 1 applic DAILY@2000 TOPIC 12/05/19 20:00 03/04/20 19:59 12/07/19 20:23 Dextrose (Dextrose 50%) 25 ml Q30M PRN IV Hypoglycemia 11/29/19 14:15 02/27/20 14:14 Dextrose (Dextrose 50%) 50 ml Q30M PRN IV Hypoglycemia 11/29/19 14:15 02/27/20 14:14 Fentanyl Citrate 2500 mcg/Sodium Chloride 250 ml @ 0 mls/hr Q24H IVPB 12/06/19 02:00 12/13/19 01:59 12/08/19 15:15 Hydralazine HCl (Apresoline) 10 mg Q4H PRN IV For High Blood Pressure 11/29/19 15:15 02/27/20 15:14 Norepinephrine Bitartrate 16 mg/ Dextrose 566 ml @ 0 mls/hr Q24H IV 12/06/19 09:00 01/05/20 08:59 12/08/19 08:05 Ondansetron HCl (Zofran) 4 mg Q6H PRN IVP Nausea & Vomiting 11/29/19 14:15 12/29/19 14:14 Pantoprazole (Protonix) 40 mg DAILY IVP 11/30/19 12:15 12/30/19 12:14 12/08/19 08:05 Piperacillin Sod/ Tazobactam Sod 3.375 gm/Dextrose 55 ml @ 13 mls/hr Q12H IVPB 12/08/19 12:00 12/15/19 11:59 12/08/19 12:28 Vasopressin 100 units/Sodium Chloride 100 ml @ 0 mls/hr Q24H IV 12/06/19 09:00 01/05/20 08:59 12/06/19 09:03 Ilsa Rodriguez MD Dec 08, 2019 19:29
--- NOTE | 2019-12-08 19:53 | NUR ---
NURSE NOTES: PATIENT SEDATED, ON ETT TO VENT AC20/TV500/FIO2 100%/PEEP7, O2 SATURATION 100% NOTED, HEART RATE 90'S/MIN SR, F/C INTACT AND PATENT, DARK ANGELICA COLOR URINE OUTED, ONGOING DIALYSIS STATUS VIA RIGHT FEMORAL YESI CATH AND ONGOING FENTANYL 150MCG/HR AND LEVOPHED 6MCG/MIN VIA YESI W/ PIGTAIL, LOWER BED POSITION AND LOCKED STATUS, WILL CONTINUE TO MONITOR.
[2019-12-08] MEDS: Dyna-Hex 2% Top Sol 2oz TOPIC SCH (20:41)
[2019-12-08] MEDS ORDERED: Vancomycin 1gm in D5W 275ml IVPB ONE (21:00)
--- NOTE | 2019-12-08 21:50 | NUR ---
NURSE NOTES: FINISHED DIALYSIS. VSS AT THIS TIME.
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
[2019-12-09] VITALS (64 sets, daily range): BP systolic 103–151; BP diastolic 51–102
--- NOTE | 2019-12-09 | NUR ---
NURSE NOTES: LE: ONGOING LEVOPHED DRIP 5MCG/MIN AND FENTANYL 150MCG/HR VIA YESI CATH W/PIG TAIL, VSS AT THIS TIME.
--- NOTE | 2019-12-09 02:12 | NUR ---
NURSE NOTES: PATIENT SEDATED, RASS SCORE -2 ON FENTANYL DRIP 150MCG/HR, NO SOB NOTED AT THIS TIME.
--- NOTE | 2019-12-09 04:20 | NUR ---
NURSE NOTES: MORNING CARE AND ORAL CARE WAS DONE, MADE PRON POSITION ORDER, WILL CONTINUE TO MONITOR.
--- NOTE | 2019-12-09 05:00 | NUR ---
NURSE NOTES: LE: DARK GREENISH DIARRHEA NOTED, INSERTED RECTAL TUBE AT THIS TIME.
[2019-12-09 06:07] LABS: HEMATOCRIT 33.7 % (42.0-52.0); HEMOGLOBIN 11.2 G/DL (14.2-18.0); MEAN CORPUSCULAR VOLUME 91 FL (80-99); PLATELET COUNT 141 K/UL (150-450); RED BLOOD COUNT 3.69 M/UL (4.70-6.10); RED CELL DISTRIBUTION WIDTH 12.9 % (11.6-14.8); WHITE BLOOD COUNT 18.1 K/UL (4.8-10.8)
--- NOTE | 2019-12-09 06:16 | NUR ---
NURSE NOTES: VSS ON PRONE POSITION, NO DISTRESS NOTED AT THIS TIME.
[2019-12-09 06:40] LABS: ALANINE AMINOTRANSFERASE 585 U/L (12-78); ALBUMIN 2.1 G/DL (3.4-5.0); ALBUMIN/GLOBULIN RATIO 0.6 (1.0-2.7); ALKALINE PHOSPHATASE 113 U/L (46-116); ANION GAP 11 mmol/L (5-15); ASPARTATE AMINO TRANSFERASE 562 U/L (15-37); BILIRUBIN,TOTAL 1.9 MG/DL (0.2-1.0); BLOOD UREA NITROGEN 47 mg/dL (7-18); CALCIUM 7.9 MG/DL (8.5-10.1); CARBON DIOXIDE 31 MMOL/L (21-32); CHLORIDE 103 MMOL/L (98-107); CREATININE 5.4 MG/DL (0.55-1.30); POTASSIUM 3.1 MMOL/L (3.5-5.1); SODIUM 145 MMOL/L (136-145)
[2019-12-09 06:51] LABS: BILIRUBIN,DIRECT 1.3 MG/DL (0.0-0.3)
--- NOTE | 2019-12-09 07:05 | NUR ---
HAND-OFF: Report given to DARYA ROMAN.
--- NOTE | 2019-12-09 07:06 | NUR ---
NURSE NOTES: Pt received from DARYA Maldonado. Pt is sedated, opens eyes when called by name for 4 sec, unable to follow commands, pupils are equal and round 3 mm bilat with sluggish light rxn. Pt noted in ST to drop wire aliner. Bilat radial and dorsalis pedis pulses 2+ bilaterally. 1+ pitting edema noted to both hands. Pt is mechanically intubated with 8.0 ETT noted 24 cm at the lip with the following settings: AC 20, TV 500, FiO2 100% Peep 7. All lung lobes diminished upon posterior auscultation- pt in prone position. Left nares NGT noted clamped with TF on hold. Unable to auscultate bowel sounds at this time due to prone position. Rectal tube noted draining dark brown, semi-liquid stool. Pt has a barnes draining a small amount of marge urine. Skin alterations noted. Pt has a LW 20g IV running NS TKO at 5 cc/hr and right femoral line with pigtail running fentanyl at 150 mcg/hr and levophed at 4 mcg/min. Bed is in lowest position, alarm on, side rails up x 3, call light within reach. No acute distress noted. Will continue with plan of care.
[2019-12-09] MEDS: fentaNYL Citrate 2,500 MCG in NS 200 ML IVPB SCH ×2 (08:00→23:26)
[2019-12-09] MEDS: Norepinephrine Bitartrate 16 MG in D5W 500ml 550 ML IV SCH ×2 (08:00→09:00)
[2019-12-09] MEDS: Piperacillin/Tazobactam 3.375 GM in D5W 55 ML IVPB SCH ×2 (08:18→23:24)
[2019-12-09] MEDS: Pantoprazole Inj IVP SCH (08:18)
[2019-12-09] MEDS: Vasopressin 100 UNITS in NS 95 ML IV SCH (08:21)
--- NOTE | 2019-12-09 09:38 | General Progress Note ---
Assessment/Plan Status: unchanged Assessment/Plan: 59-year-old male with PMH of HTN presents with acute respiratory distress. #Acute Hypoxic Respiratory Failure s/p intubation #Severe sepsis #COVID19 positive #CAP #elevated d-dimer #Fevers -Appreciate ICU level of care -s/p Intubation 12/03 -vent management per Pulm/ICU/CCM team -cont. droplet & isolation precautions -Transaminitis/d-dimer/fluctuating fevers likely reactive/ 2/2 COVID -cont. to monitor LFTs -11/25 BCx NGTD -EKG reviewed, sinus tach, HR 115, QTc 437 -trop negative x1, no CP at this time -s/p hydroxychloroquine -prone position per Pulm -Pulm following, recs appreciated -ID, Dr. Rodriguez, following: Merrem, Vanc -grave prognosis -cont. current management per ID/Pulm #Pneumomediastinum #Subcutaneous emphysema -seen on abd XR -pt too high risk for bedside thoracostomy -d/w general sx and pulm/ICU #ALBARO #Hypernatremia #Hyperkalemia -likely 2/2 to above, COVID -kayexalate, insulin, D5 for hyperkalemia -cont. to montior -12/04: femoral HD cath placed -d/w Nephro, Dr. Soriano: HD per nephro #Transaminitis #Shock Liver -likely 2/2 to above -LFTs improving, ctm -abd us when off isolation -cont. NGT feeds -d/w GI, Dr. Rdz #Sinus Tachycardia 2/2 respiratory failure #HTN -hydralazine PRN -Cardio, , following: Echo after COVID negative DVT PPX: Lovenox Pt is at high risk of rapid decompensation and requires continued ICU level of care Prognosis grave/poor Time spent on encounter: 74 mins, 36 mins spent on critical care time. Critical Care Services performed include: Hemodynamic measurement interpretation Laboratory data review and interpretation Radiology image review and interpretation ABG interpretation Reviewed Tele monitor Discussion of patient's care with ICU team, Nursing staff, ID, Nephro, GI and Pulm. Time of note doesn't reflect time of encounter. Subjective Allergies: Coded Allergies: No Known Allergies (Unverified , 4/17/20) Subjective Follow up for acute hypoxic resp failure, COVID19 positive, s/p intubation, multi-organ failure. Pt remains intubated, unable to obtain ROS due to clinical picture. s/p HD yesterday. Objective Last 24 Hour Vital Signs Date Time Temp Pulse Resp B/P (MAP) Pulse Ox O2 Delivery O2 Flow Rate FiO2 12/09/19 09:00 101 25 142/71 (94) 100 12/09/19 08:30 101 25 134/72 (92) 100 12/09/19 08:00 100 12/09/19 08:00 98.6 101 26 143/79 (100) 100 12/09/19 08:00 135/69 12/09/19 08:00 27 Mechanical Ventilator 100 12/09/19 07:30 101 28 135/74 (94) 100 12/09/19 07:12 105 25 100 12/09/19 07:00 137/69 12/09/19 07:00 26 Mechanical Ventilator 100 12/09/19 07:00 106 26 137/69 (91) 100 12/09/19 06:30 105 27 146/75 (98) 100 12/09/19 06:00 105 24 134/74 (94) 100 12/09/19 06:00 134/74 12/09/19 06:00 24 Mechanical Ventilator 100 12/09/19 05:30 106 14 140/69 (92) 100 12/09/19 05:00 107 26 148/73 (98) 100 12/09/19 05:00 148/73 12/09/19 05:00 26 Mechanical Ventilator 100 12/09/19 04:30 99 19 119/63 (81) 100 12/09/19 04:00 Mechanical Ventilator 12/09/19 04:00 114/62 12/09/19 04:00 26 Mechanical Ventilator 100 12/09/19 04:00 95 12/09/19 04:00 97.0 95 26 114/62 (79) 100 12/09/19 04:00 100 12/09/19 03:45 96 26 110/64 (79) 100 12/09/19 03:30 106 22 131/102 (112) 95 12/09/19 03:30 108 29 100 12/09/19 03:00 93 23 116/63 (80) 100 12/09/19 03:00 116/63 12/09/19 03:00 23 Mechanical Ventilator 100 12/09/19 02:30 94 24 109/59 (76) 100 12/09/19 02:00 112/59 12/09/19 02:00 25 Mechanical Ventilator 100 12/09/19 02:00 84 25 112/59 (76) 100 12/09/19 01:30 89 23 114/55 (74) 100 12/09/19 01:00 93 24 108/62 (77) 100 12/09/19 01:00 108/62 12/09/19 01:00 24 Mechanical Ventilator 100 12/09/19 00:30 88 23 107/59 (75) 100 12/09/19 00:00 89 12/09/19 00:00 Mechanical Ventilator 12/09/19 00:00 106/61 12/09/19 00:00 22 Mechanical Ventilator 100 12/09/19 00:00 100 12/09/19 00:00 97.0 89 22 106/61 (76) 100 12/08/19 23:30 80 22 111/62 (78) 100 12/08/19 23:10 103 32 100 12/08/19 23:00 89 24 113/63 (80) 100 12/08/19 23:00 113/63 12/08/19 23:00 24 Mechanical Ventilator 100 12/08/19 22:30 91 23 116/63 (80) 100 12/08/19 22:00 92 23 131/69 (89) 100 12/08/19 22:00 131/69 12/08/19 22:00 23 Mechanical Ventilator 100 12/08/19 21:30 98 27 137/65 (89) 100 12/08/19 21:00 93 25 134/70 (91) 100 12/08/19 21:00 134/70 12/08/19 21:00 25 Mechanical Ventilator 100 12/08/19 20:30 92 24 139/73 (95) 100 12/08/19 20:00 Mechanical Ventilator 12/08/19 20:00 100 12/08/19 20:00 140/73 12/08/19 20:00 25 Mechanical Ventilator 100 12/08/19 20:00 98.6 89 25 140/73 (95) 100 12/08/19 19:30 88 25 148/77 (100) 100 4/26/20 19:21 86 12/08/19 19:00 83 24 139/78 (98) 100 12/08/19 19:00 108 32 100 12/08/19 19:00 139/78 12/08/19 19:00 23 Mechanical Ventilator 100 12/08/19 18:30 90 30 124/65 (84) 100 12/08/19 18:00 124/67 12/08/19 18:00 22 Mechanical Ventilator 100 12/08/19 18:00 90 28 132/71 (91) 100 12/08/19 17:30 95 25 117/66 (83) 100 12/08/19 17:00 99 26 124/67 (86) 100 12/08/19 17:00 124/67 12/08/19 17:00 23 Mechanical Ventilator 100 12/08/19 16:30 101 27 118/63 (81) 100 12/08/19 16:00 101 12/08/19 16:00 100 12/08/19 16:00 97.7 100 26 121/67 (85) 100 12/08/19 16:00 121/67 12/08/19 16:00 23 Mechanical Ventilator 100 12/08/19 16:00 Mechanical Ventilator 12/08/19 15:30 108 20 139/68 (91) 100 12/08/19 15:15 22 Mechanical Ventilator 100 12/08/19 15:06 108 23 100 12/08/19 15:00 112 20 122/63 (82) 100 12/08/19 15:00 122/63 12/08/19 14:30 111 23 116/59 (78) 99 12/08/19 14:00 110 19 118/61 (80) 100 12/08/19 14:00 118/61 12/08/19 13:30 108 22 109/62 (78) 100 12/08/19 13:00 108 23 110/62 (78) 100 12/08/19 13:00 110/62 12/08/19 13:00 23 Mechanical Ventilator 100 12/08/19 12:00 97.7 105 22 115/63 (80) 100 12/08/19 12:00 105 12/08/19 12:00 115/63 12/08/19 12:00 22 Mechanical Ventilator 100 12/08/19 12:00 100 12/08/19 12:00 Mechanical Ventilator 12/08/19 11:30 103 23 110/63 (79) 100 12/08/19 11:05 104 27 100 12/08/19 11:00 103 24 112/62 (79) 100 12/08/19 11:00 112/62 12/08/19 11:00 22 Mechanical Ventilator 100 12/08/19 10:30 102 22 112/63 (79) 100 12/08/19 10:00 110/63 12/08/19 10:00 22 Mechanical Ventilator 100 12/08/19 10:00 103 25 112/62 (79) 100 Intake and Output 12/08/19 12/09/19 19:00 07:00 Intake Total 898.28 ml 874.44 ml Output Total 5 ml 5 ml Balance 893.28 ml 869.44 ml Free Water 100 ml 30 ml IV Total 708.28 ml 639.44 ml Tube Feeding 90 ml 205 ml Output Urine Total 5 ml 5 ml Hemodialysis UF 0 ml # Bowel Movements 101 Laboratory Tests 12/09/19 04:10: White Blood Count 18.1H, Red Blood Count 3.69L, Hemoglobin 11.2L, Hematocrit 33.7L, Mean Corpuscular Volume 91, Mean Corpuscular Hemoglobin 30.4, Mean Corpuscular Hemoglobin Concent 33.2, Red Cell Distribution Width 12.9, Platelet Count 141L, Mean Platelet Volume 9.5, Neutrophils (%) (Auto) , Lymphocytes (%) ( Auto) , Monocytes (%) (Auto) , Eosinophils (%) (Auto) , Basophils (%) (Auto) , Differential Total Cells Counted 100, Neutrophils % (Manual) 91H, Lymphocytes % (Manual) 3L, Monocytes % (Manual) 6, Eosinophils % (Manual) 0, Basophils % ( Manual) 0, Band Neutrophils 0, Platelet Estimate DecreasedL, Platelet Morphology Normal, Hypochromasia 1+, Sodium Level 145, Potassium Level 3.1L, Chloride Level 103, Carbon Dioxide Level 31, Anion Gap 11, Blood Urea Nitrogen 47H, Creatinine 5.4H, Estimat Glomerular Filtration Rate 11.0, Glucose Level 153H, Calcium Level 7.9#L, Total Bilirubin 1.9H, Direct Bilirubin 1.3H, Aspartate Amino Transf (AST/SGOT) 562H, Alanine Aminotransferase (ALT/SGPT) 585H , Alkaline Phosphatase 113, Total Protein 5.5L, Albumin 2.1L, Globulin 3.4, Albumin/Globulin Ratio 0.6L 12/09/19 08:40: Arterial Blood pH 7.215*L, Arterial Blood Partial Pressure CO2 68.7*H, Arterial Blood Partial Pressure O2 154.3H, Arterial Blood HCO3 27.2H, Arterial Blood Oxygen Saturation 98.2, Arterial Blood Base Excess -1.9, Melecio Test Positive Height (Feet): 5 Height (Inches): 6.00 Weight (Pounds): 177 Objective General Appearance: intubated, OG tube in place, prone Cardiovascular: Sinus tach on tele Respiratory/Chest: ETT in place, equal rise in lungs b/l Abdomen: non distended Ext: no edema noted Theodore Aguayo M.D. Dec 09, 2019 09:38
--- NOTE | 2019-12-09 10:29 | General Progress Note ---
Assessment/Plan Problem List: (1) Elevated LFTs ICD Codes: R79.89 - Other specified abnormal findings of blood chemistry SNOMED: 476315719, 485095149 (2) HTN (hypertension) ICD Codes: I10 - Essential (primary) hypertension SNOMED: 07779579 (3) Suspected COVID-19 virus infection ICD Codes: R68.89 - Other general symptoms and signs SNOMED: 774384104 (4) Pneumonia ICD Codes: J18.9 - Pneumonia, unspecified organism SNOMED: 885644222 (5) Respiratory distress ICD Codes: R06.03 - Acute respiratory distress SNOMED: 331093430 (6) Pneumomediastinum ICD Codes: J98.2 - Interstitial emphysema SNOMED: 55914626 (7) COVID-19 ICD Codes: U07.1 - COVID-19 SNOMED: 115987427 (8) Hypotension ICD Codes: I95.9 - Hypotension, unspecified SNOMED: 04840848 Status: unchanged Assessment/Plan: elevated LFTS most likely due to shock liver>>> improving repeat labs in am hepatitis panel abd us when off of iso;ation NGTF fu nephrology Subjective ROS Limited/Unobtainable: No Allergies: Coded Allergies: No Known Allergies (Unverified , 11/29/19) Objective Last 24 Hour Vital Signs Date Time Temp Pulse Resp B/P (MAP) Pulse Ox O2 Delivery O2 Flow Rate FiO2 12/09/19 09:00 101 25 142/71 (94) 100 12/09/19 08:30 101 25 134/72 (92) 100 12/09/19 08:00 100 12/09/19 08:00 100 12/09/19 08:00 98.6 101 26 143/79 (100) 100 12/09/19 08:00 135/69 12/09/19 08:00 27 Mechanical Ventilator 100 12/09/19 07:30 101 28 135/74 (94) 100 12/09/19 07:12 105 25 100 12/09/19 07:00 137/69 12/09/19 07:00 26 Mechanical Ventilator 100 12/09/19 07:00 106 26 137/69 (91) 100 12/09/19 06:30 105 27 146/75 (98) 100 12/09/19 06:00 105 24 134/74 (94) 100 12/09/19 06:00 134/74 12/09/19 06:00 24 Mechanical Ventilator 100 12/09/19 05:30 106 14 140/69 (92) 100 12/09/19 05:00 107 26 148/73 (98) 100 12/09/19 05:00 148/73 12/09/19 05:00 26 Mechanical Ventilator 100 12/09/19 04:30 99 19 119/63 (81) 100 12/09/19 04:00 Mechanical Ventilator 12/09/19 04:00 114/62 12/09/19 04:00 26 Mechanical Ventilator 100 12/09/19 04:00 95 12/09/19 04:00 97.0 95 26 114/62 (79) 100 12/09/19 04:00 100 12/09/19 03:45 96 26 110/64 (79) 100 12/09/19 03:30 106 22 131/102 (112) 95 12/09/19 03:30 108 29 100 12/09/19 03:00 93 23 116/63 (80) 100 12/09/19 03:00 116/63 12/09/19 03:00 23 Mechanical Ventilator 100 12/09/19 02:30 94 24 109/59 (76) 100 12/09/19 02:00 112/59 12/09/19 02:00 25 Mechanical Ventilator 100 12/09/19 02:00 84 25 112/59 (76) 100 12/09/19 01:30 89 23 114/55 (74) 100 12/09/19 01:00 93 24 108/62 (77) 100 12/09/19 01:00 108/62 12/09/19 01:00 24 Mechanical Ventilator 100 12/09/19 00:30 88 23 107/59 (75) 100 12/09/19 00:00 89 12/09/19 00:00 Mechanical Ventilator 12/09/19 00:00 106/61 12/09/19 00:00 22 Mechanical Ventilator 100 12/09/19 00:00 100 12/09/19 00:00 97.0 89 22 106/61 (76) 100 12/08/19 23:30 80 22 111/62 (78) 100 12/08/19 23:10 103 32 100 12/08/19 23:00 89 24 113/63 (80) 100 12/08/19 23:00 113/63 12/08/19 23:00 24 Mechanical Ventilator 100 12/08/19 22:30 91 23 116/63 (80) 100 12/08/19 22:00 92 23 131/69 (89) 100 12/08/19 22:00 131/69 12/08/19 22:00 23 Mechanical Ventilator 100 12/08/19 21:30 98 27 137/65 (89) 100 12/08/19 21:00 93 25 134/70 (91) 100 12/08/19 21:00 134/70 12/08/19 21:00 25 Mechanical Ventilator 100 12/08/19 20:30 92 24 139/73 (95) 100 12/08/19 20:00 Mechanical Ventilator 12/08/19 20:00 100 12/08/19 20:00 140/73 12/08/19 20:00 25 Mechanical Ventilator 100 12/08/19 20:00 98.6 89 25 140/73 (95) 100 12/08/19 19:30 88 25 148/77 (100) 100 12/08/19 19:21 86 12/08/19 19:00 83 24 139/78 (98) 100 12/08/19 19:00 108 32 100 12/08/19 19:00 139/78 12/08/19 19:00 23 Mechanical Ventilator 100 12/08/19 18:30 90 30 124/65 (84) 100 12/08/19 18:00 124/67 12/08/19 18:00 22 Mechanical Ventilator 100 12/08/19 18:00 90 28 132/71 (91) 100 12/08/19 17:30 95 25 117/66 (83) 100 12/08/19 17:00 99 26 124/67 (86) 100 12/08/19 17:00 124/67 12/08/19 17:00 23 Mechanical Ventilator 100 12/08/19 16:30 101 27 118/63 (81) 100 12/08/19 16:00 101 12/08/19 16:00 100 12/08/19 16:00 97.7 100 26 121/67 (85) 100 12/08/19 16:00 121/67 12/08/19 16:00 23 Mechanical Ventilator 100 12/08/19 16:00 Mechanical Ventilator 12/08/19 15:30 108 20 139/68 (91) 100 12/08/19 15:15 22 Mechanical Ventilator 100 12/08/19 15:06 108 23 100 12/08/19 15:00 112 20 122/63 (82) 100 12/08/19 15:00 122/63 12/08/19 14:30 111 23 116/59 (78) 99 12/08/19 14:00 110 19 118/61 (80) 100 12/08/19 14:00 118/61 12/08/19 13:30 108 22 109/62 (78) 100 12/08/19 13:00 108 23 110/62 (78) 100 12/08/19 13:00 110/62 12/08/19 13:00 23 Mechanical Ventilator 100 12/08/19 12:00 97.7 105 22 115/63 (80) 100 12/08/19 12:00 105 12/08/19 12:00 115/63 12/08/19 12:00 22 Mechanical Ventilator 100 12/08/19 12:00 100 12/08/19 12:00 Mechanical Ventilator 12/08/19 11:30 103 23 110/63 (79) 100 12/08/19 11:05 104 27 100 12/08/19 11:00 103 24 112/62 (79) 100 12/08/19 11:00 112/62 12/08/19 11:00 22 Mechanical Ventilator 100 12/08/19 10:30 102 22 112/63 (79) 100 Intake and Output 12/08/19 12/09/19 19:00 07:00 Intake Total 898.28 ml 874.44 ml Output Total 5 ml 5 ml Balance 893.28 ml 869.44 ml Free Water 100 ml 30 ml IV Total 708.28 ml 639.44 ml Tube Feeding 90 ml 205 ml Output Urine Total 5 ml 5 ml Hemodialysis UF 0 ml # Bowel Movements 101 Laboratory Tests 12/09/19 04:10: White Blood Count 18.1H, Red Blood Count 3.69L, Hemoglobin 11.2L, Hematocrit 33.7L, Mean Corpuscular Volume 91, Mean Corpuscular Hemoglobin 30.4, Mean Corpuscular Hemoglobin Concent 33.2, Red Cell Distribution Width 12.9, Platelet Count 141L, Mean Platelet Volume 9.5, Neutrophils (%) (Auto) , Lymphocytes (%) ( Auto) , Monocytes (%) (Auto) , Eosinophils (%) (Auto) , Basophils (%) (Auto) , Differential Total Cells Counted 100, Neutrophils % (Manual) 91H, Lymphocytes % (Manual) 3L, Monocytes % (Manual) 6, Eosinophils % (Manual) 0, Basophils % ( Manual) 0, Band Neutrophils 0, Platelet Estimate DecreasedL, Platelet Morphology Normal, Hypochromasia 1+, Sodium Level 145, Potassium Level 3.1L, Chloride Level 103, Carbon Dioxide Level 31, Anion Gap 11, Blood Urea Nitrogen 47H, Creatinine 5.4H, Estimat Glomerular Filtration Rate 11.0, Glucose Level 153H, Calcium Level 7.9#L, Total Bilirubin 1.9H, Direct Bilirubin 1.3H, Aspartate Amino Transf (AST/SGOT) 562H, Alanine Aminotransferase (ALT/SGPT) 585H , Alkaline Phosphatase 113, Total Protein 5.5L, Albumin 2.1L, Globulin 3.4, Albumin/Globulin Ratio 0.6L 12/09/19 08:40: Arterial Blood pH 7.215*L, Arterial Blood Partial Pressure CO2 68.7*H, Arterial Blood Partial Pressure O2 154.3H, Arterial Blood HCO3 27.2H, Arterial Blood Oxygen Saturation 98.2, Arterial Blood Base Excess -1.9, Melecio Test Positive Height (Feet): 5 Height (Inches): 6.00 Weight (Pounds): 177 EENT: normal ENT inspection Neck: supple Cardiovascular: tachycardia Respiratory/Chest: decreased breath sounds Abdomen: soft, hypoactive bowel sounds Extremities: non-tender João Rdz MD Dec 09, 2019 10:29
--- NOTE | 2019-12-09 11:00 | NUR ---
NURSE NOTES: Dr Cortes at bedside assessing pt and made aware of potassium today of 3.1 and today's ABG results. No new orders at this time other than DVT prophylaxis (SCDs without venous duplex per Dr Cortes).
--- NOTE | 2019-12-09 11:18 | Pulmonology Progress Note ---
Assessment/Plan Assessment/Plan IMPRESSION: 1. Bilateral pneumonia. 2. Positive COVID-19. 3. Respiratory failure. DISCUSSION: Intubated On AC 20; FiO2 100; PEEP 10; SaO2 95% Abd Xray shows mediastinal PTX Continue proning Switched to Fentanyl due to high triglycerides Continue proning as heart rate tolerates Saturations are better Too high risk for empiric bedside thoracostomy; discussed with Dr Roverto Lau prognosis I will follow carefully. S/p HD S/p Actemra Sushil Cortes M.D. Subjective ROS Limited/Unobtainable: No Interval Events: Intubated ;proning continuing Constitutional: Reports: no symptoms, other - lethargic, weak, on pressors HEENT: Repors: no symptoms Respiratory: Reports: no symptoms Cardiovascular: Reports: no symptoms Gastrointestinal/Abdominal: Denies: nausea, vomiting Genitourinary: Reports: no symptoms Psychiatric: Reports: other - NA Skin: Denies: rash Musculoskeletal: Reports: other - NA Allergies: Coded Allergies: No Known Allergies (Unverified , 11/29/19) Objective Last 24 Hour Vital Signs Date Time Temp Pulse Resp B/P (MAP) Pulse Ox O2 Delivery O2 Flow Rate FiO2 12/09/19 11:00 104 26 138/73 (94) 100 12/09/19 11:00 138/73 12/09/19 10:30 103 26 142/74 (96) 100 12/09/19 10:00 102 25 138/72 (94) 100 12/09/19 10:00 124/73 12/09/19 09:30 102 25 134/69 (90) 100 12/09/19 09:00 101 25 142/71 (94) 100 12/09/19 09:00 144/72 12/09/19 08:30 101 25 134/72 (92) 100 12/09/19 08:00 100 12/09/19 08:00 100 12/09/19 08:00 98.6 101 26 143/79 (100) 100 12/09/19 08:00 135/69 12/09/19 08:00 27 Mechanical Ventilator 100 12/09/19 07:30 101 28 135/74 (94) 100 12/09/19 07:12 105 25 100 12/09/19 07:00 137/69 12/09/19 07:00 26 Mechanical Ventilator 100 12/09/19 07:00 106 26 137/69 (91) 100 12/09/19 06:30 105 27 146/75 (98) 100 12/09/19 06:00 105 24 134/74 (94) 100 12/09/19 06:00 134/74 12/09/19 06:00 24 Mechanical Ventilator 100 12/09/19 05:30 106 14 140/69 (92) 100 12/09/19 05:00 107 26 148/73 (98) 100 12/09/19 05:00 148/73 12/09/19 05:00 26 Mechanical Ventilator 100 12/09/19 04:30 99 19 119/63 (81) 100 12/09/19 04:00 Mechanical Ventilator 12/09/19 04:00 114/62 12/09/19 04:00 26 Mechanical Ventilator 100 12/09/19 04:00 95 12/09/19 04:00 97.0 95 26 114/62 (79) 100 12/09/19 04:00 100 12/09/19 03:45 96 26 110/64 (79) 100 12/09/19 03:30 106 22 131/102 (112) 95 12/09/19 03:30 108 29 100 12/09/19 03:00 93 23 116/63 (80) 100 12/09/19 03:00 116/63 12/09/19 03:00 23 Mechanical Ventilator 100 12/09/19 02:30 94 24 109/59 (76) 100 12/09/19 02:00 112/59 12/09/19 02:00 25 Mechanical Ventilator 100 12/09/19 02:00 84 25 112/59 (76) 100 12/09/19 01:30 89 23 114/55 (74) 100 12/09/19 01:00 93 24 108/62 (77) 100 12/09/19 01:00 108/62 12/09/19 01:00 24 Mechanical Ventilator 100 12/09/19 00:30 88 23 107/59 (75) 100 12/09/19 00:00 89 12/09/19 00:00 Mechanical Ventilator 12/09/19 00:00 106/61 12/09/19 00:00 22 Mechanical Ventilator 100 12/09/19 00:00 100 12/09/19 00:00 97.0 89 22 106/61 (76) 100 12/08/19 23:30 80 22 111/62 (78) 100 12/08/19 23:10 103 32 100 12/08/19 23:00 89 24 113/63 (80) 100 12/08/19 23:00 113/63 12/08/19 23:00 24 Mechanical Ventilator 100 12/08/19 22:30 91 23 116/63 (80) 100 12/08/19 22:00 92 23 131/69 (89) 100 12/08/19 22:00 131/69 12/08/19 22:00 23 Mechanical Ventilator 100 12/08/19 21:30 98 27 137/65 (89) 100 12/08/19 21:00 93 25 134/70 (91) 100 12/08/19 21:00 134/70 12/08/19 21:00 25 Mechanical Ventilator 100 12/08/19 20:30 92 24 139/73 (95) 100 12/08/19 20:00 Mechanical Ventilator 12/08/19 20:00 100 12/08/19 20:00 140/73 12/08/19 20:00 25 Mechanical Ventilator 100 12/08/19 20:00 98.6 89 25 140/73 (95) 100 12/08/19 19:30 88 25 148/77 (100) 100 12/08/19 19:21 86 12/08/19 19:00 83 24 139/78 (98) 100 12/08/19 19:00 108 32 100 12/08/19 19:00 139/78 12/08/19 19:00 23 Mechanical Ventilator 100 12/08/19 18:30 90 30 124/65 (84) 100 12/08/19 18:00 124/67 12/08/19 18:00 22 Mechanical Ventilator 100 12/08/19 18:00 90 28 132/71 (91) 100 12/08/19 17:30 95 25 117/66 (83) 100 12/08/19 17:00 99 26 124/67 (86) 100 12/08/19 17:00 124/67 12/08/19 17:00 23 Mechanical Ventilator 100 12/08/19 16:30 101 27 118/63 (81) 100 12/08/19 16:00 101 12/08/19 16:00 100 12/08/19 16:00 97.7 100 26 121/67 (85) 100 12/08/19 16:00 121/67 12/08/19 16:00 23 Mechanical Ventilator 100 12/08/19 16:00 Mechanical Ventilator 12/08/19 15:30 108 20 139/68 (91) 100 12/08/19 15:15 22 Mechanical Ventilator 100 12/08/19 15:06 108 23 100 12/08/19 15:00 112 20 122/63 (82) 100 12/08/19 15:00 122/63 12/08/19 14:30 111 23 116/59 (78) 99 12/08/19 14:00 110 19 118/61 (80) 100 12/08/19 14:00 118/61 12/08/19 13:30 108 22 109/62 (78) 100 12/08/19 13:00 108 23 110/62 (78) 100 12/08/19 13:00 110/62 12/08/19 13:00 23 Mechanical Ventilator 100 12/08/19 12:00 97.7 105 22 115/63 (80) 100 12/08/19 12:00 105 12/08/19 12:00 115/63 12/08/19 12:00 22 Mechanical Ventilator 100 12/08/19 12:00 100 12/08/19 12:00 Mechanical Ventilator 12/08/19 11:30 103 23 110/63 (79) 100 Intake and Output 12/08/19 12/09/19 19:00 07:00 Intake Total 898.28 ml 874.44 ml Output Total 5 ml 5 ml Balance 893.28 ml 869.44 ml Free Water 100 ml 30 ml IV Total 708.28 ml 639.44 ml Tube Feeding 90 ml 205 ml Output Urine Total 5 ml 5 ml Hemodialysis UF 0 ml # Bowel Movements 101 General Appearance: no acute distress, other - on vent and pressors HEENT: no JVD, other - oral - intubated Respiratory/Chest: chest wall non-tender, lungs clear Cardiovascular: normal peripheral pulses, normal rate Abdomen: normal bowel sounds, soft, non tender, no organomegaly Genitourinary: other - + barnes - urine slt cloudy Extremities: no cyanosis Skin: no rash Neurologic/Psychiatric: motor weakness, other - lethargic Lymphatic: no neck adenopathy Musculoskeletal: no effusion Laboratory Tests 12/09/19 04:10: White Blood Count 18.1H, Red Blood Count 3.69L, Hemoglobin 11.2L, Hematocrit 33.7L, Mean Corpuscular Volume 91, Mean Corpuscular Hemoglobin 30.4, Mean Corpuscular Hemoglobin Concent 33.2, Red Cell Distribution Width 12.9, Platelet Count 141L, Mean Platelet Volume 9.5, Neutrophils (%) (Auto) , Lymphocytes (%) ( Auto) , Monocytes (%) (Auto) , Eosinophils (%) (Auto) , Basophils (%) (Auto) , Differential Total Cells Counted 100, Neutrophils % (Manual) 91H, Lymphocytes % (Manual) 3L, Monocytes % (Manual) 6, Eosinophils % (Manual) 0, Basophils % ( Manual) 0, Band Neutrophils 0, Platelet Estimate DecreasedL, Platelet Morphology Normal, Hypochromasia 1+, Sodium Level 145, Potassium Level 3.1L, Chloride Level 103, Carbon Dioxide Level 31, Anion Gap 11, Blood Urea Nitrogen 47H, Creatinine 5.4H, Estimat Glomerular Filtration Rate 11.0, Glucose Level 153H, Calcium Level 7.9#L, Total Bilirubin 1.9H, Direct Bilirubin 1.3H, Aspartate Amino Transf (AST/SGOT) 562H, Alanine Aminotransferase (ALT/SGPT) 585H , Alkaline Phosphatase 113, Total Protein 5.5L, Albumin 2.1L, Globulin 3.4, Albumin/Globulin Ratio 0.6L 12/09/19 08:40: Arterial Blood pH 7.215*L, Arterial Blood Partial Pressure CO2 68.7*H, Arterial Blood Partial Pressure O2 154.3H, Arterial Blood HCO3 27.2H, Arterial Blood Oxygen Saturation 98.2, Arterial Blood Base Excess -1.9, Melceio Test Positive Current Medications Medications (Trade) Dose Ordered Sig/Vicki Route PRN Reason Start Time Stop Time Status Last Admin Dose Admin Acetaminophen (Tylenol) 650 mg Q4H PRN NG Temp >100.5 12/06/19 14:15 01/05/20 14:14 12/06/19 14:40 Acetaminophen (Tylenol) 650 mg Q4H PRN RECTAL Mild Pain (Pain Scale 1-3) 12/04/19 11:45 01/03/20 11:44 12/06/19 19:17 Chlorhexidine Gluconate (Arely-Hex 2%) 1 applic DAILY@2000 TOPIC 12/05/19 20:00 03/04/20 19:59 12/08/19 20:41 Dextrose (Dextrose 50%) 25 ml Q30M PRN IV Hypoglycemia 11/29/19 14:15 02/27/20 14:14 Dextrose (Dextrose 50%) 50 ml Q30M PRN IV Hypoglycemia 11/29/19 14:15 02/27/20 14:14 Fentanyl Citrate 2500 mcg/Sodium Chloride 250 ml @ 0 mls/hr Q24H IVPB 12/06/19 02:00 12/13/19 01:59 12/09/19 08:00 Hydralazine HCl (Apresoline) 10 mg Q4H PRN IV For High Blood Pressure 11/29/19 15:15 02/27/20 15:14 Norepinephrine Bitartrate 16 mg/ Dextrose 566 ml @ 0 mls/hr Q24H IV 12/06/19 09:00 01/05/20 08:59 12/09/19 08:00 Ondansetron HCl (Zofran) 4 mg Q6H PRN IVP Nausea & Vomiting 11/29/19 14:15 12/29/19 14:14 Pantoprazole (Protonix) 40 mg DAILY IVP 11/30/19 12:15 12/30/19 12:14 12/09/19 08:18 Piperacillin Sod/ Tazobactam Sod 3.375 gm/Dextrose 55 ml @ 13 mls/hr Q12H IVPB 12/08/19 12:00 12/15/19 11:59 12/09/19 08:18 Vancomycin HCl (Vanco rx to dose) 1 ea DAILY PRN MISC Per rx protocol 12/08/19 19:30 01/07/20 19:29 Vasopressin 100 units/Sodium Chloride 100 ml @ 0 mls/hr Q24H IV 12/06/19 09:00 01/05/20 08:59 12/06/19 09:03 Sushil Cortes MD Dec 09, 2019 11:18
--- NOTE | 2019-12-09 12:00 | NUR ---
NURSE NOTES: Oral care provided, pt in no distress.
--- NOTE | 2019-12-09 12:12 | Urology Progress Note ---
Assessment/Plan Status: unchanged Assessment/Plan: 1. Phimosis. 2. Retention. 3. Hematuria. 4. Pyuria. 5. Proteinuria. 6. Acute kidney injury. 7. Meatal stenosis. monitor clinically maintain barnes, placed 12/04 hand irrigate PRN monitor urine output and renal fxn consider renal imaging f/u on blood cx abx as ordered HD Subjective Allergies: Coded Allergies: No Known Allergies (Unverified , 11/29/19) Subjective remains on vent, still with minimal urine output, HD initiated Objective Last 24 Hour Vital Signs Date Time Temp Pulse Resp B/P (MAP) Pulse Ox O2 Delivery O2 Flow Rate FiO2 12/09/19 11:51 105 26 100 12/09/19 11:00 104 26 138/73 (94) 100 12/09/19 11:00 138/73 12/09/19 11:00 24 Mechanical Ventilator 100 12/09/19 10:30 103 26 142/74 (96) 100 12/09/19 10:00 102 25 138/72 (94) 100 12/09/19 10:00 124/73 12/09/19 10:00 26 Mechanical Ventilator 100 12/09/19 09:30 102 25 134/69 (90) 100 12/09/19 09:00 101 25 142/71 (94) 100 12/09/19 09:00 144/72 12/09/19 09:00 26 Mechanical Ventilator 100 12/09/19 08:30 101 25 134/72 (92) 100 12/09/19 08:00 100 12/09/19 08:00 100 12/09/19 08:00 98.6 101 26 143/79 (100) 100 12/09/19 08:00 135/69 12/09/19 08:00 27 Mechanical Ventilator 100 12/09/19 08:00 Mechanical Ventilator 12/09/19 07:30 101 28 135/74 (94) 100 12/09/19 07:12 105 25 100 12/09/19 07:00 137/69 12/09/19 07:00 26 Mechanical Ventilator 100 12/09/19 07:00 106 26 137/69 (91) 100 12/09/19 06:30 105 27 146/75 (98) 100 12/09/19 06:00 105 24 134/74 (94) 100 12/09/19 06:00 134/74 12/09/19 06:00 24 Mechanical Ventilator 100 12/09/19 05:30 106 14 140/69 (92) 100 12/09/19 05:00 107 26 148/73 (98) 100 12/09/19 05:00 148/73 12/09/19 05:00 26 Mechanical Ventilator 100 12/09/19 04:30 99 19 119/63 (81) 100 12/09/19 04:00 Mechanical Ventilator 12/09/19 04:00 114/62 12/09/19 04:00 26 Mechanical Ventilator 100 12/09/19 04:00 95 12/09/19 04:00 97.0 95 26 114/62 (79) 100 12/09/19 04:00 100 12/09/19 03:45 96 26 110/64 (79) 100 12/09/19 03:30 106 22 131/102 (112) 95 12/09/19 03:30 108 29 100 12/09/19 03:00 93 23 116/63 (80) 100 12/09/19 03:00 116/63 12/09/19 03:00 23 Mechanical Ventilator 100 12/09/19 02:30 94 24 109/59 (76) 100 12/09/19 02:00 112/59 12/09/19 02:00 25 Mechanical Ventilator 100 12/09/19 02:00 84 25 112/59 (76) 100 12/09/19 01:30 89 23 114/55 (74) 100 12/09/19 01:00 93 24 108/62 (77) 100 12/09/19 01:00 108/62 12/09/19 01:00 24 Mechanical Ventilator 100 12/09/19 00:30 88 23 107/59 (75) 100 12/09/19 00:00 89 12/09/19 00:00 Mechanical Ventilator 12/09/19 00:00 106/61 12/09/19 00:00 22 Mechanical Ventilator 100 12/09/19 00:00 100 12/09/19 00:00 97.0 89 22 106/61 (76) 100 12/08/19 23:30 80 22 111/62 (78) 100 12/08/19 23:10 103 32 100 12/08/19 23:00 89 24 113/63 (80) 100 12/08/19 23:00 113/63 12/08/19 23:00 24 Mechanical Ventilator 100 12/08/19 22:30 91 23 116/63 (80) 100 12/08/19 22:00 92 23 131/69 (89) 100 12/08/19 22:00 131/69 12/08/19 22:00 23 Mechanical Ventilator 100 12/08/19 21:30 98 27 137/65 (89) 100 12/08/19 21:00 93 25 134/70 (91) 100 12/08/19 21:00 134/70 12/08/19 21:00 25 Mechanical Ventilator 100 12/08/19 20:30 92 24 139/73 (95) 100 12/08/19 20:00 Mechanical Ventilator 12/08/19 20:00 100 12/08/19 20:00 140/73 12/08/19 20:00 25 Mechanical Ventilator 100 12/08/19 20:00 98.6 89 25 140/73 (95) 100 12/08/19 19:30 88 25 148/77 (100) 100 12/08/19 19:21 86 12/08/19 19:00 83 24 139/78 (98) 100 12/08/19 19:00 108 32 100 12/08/19 19:00 139/78 12/08/19 19:00 23 Mechanical Ventilator 100 12/08/19 18:30 90 30 124/65 (84) 100 12/08/19 18:00 124/67 12/08/19 18:00 22 Mechanical Ventilator 100 12/08/19 18:00 90 28 132/71 (91) 100 12/08/19 17:30 95 25 117/66 (83) 100 12/08/19 17:00 99 26 124/67 (86) 100 12/08/19 17:00 124/67 12/08/19 17:00 23 Mechanical Ventilator 100 12/08/19 16:30 101 27 118/63 (81) 100 12/08/19 16:00 101 12/08/19 16:00 100 12/08/19 16:00 97.7 100 26 121/67 (85) 100 12/08/19 16:00 121/67 12/08/19 16:00 23 Mechanical Ventilator 100 12/08/19 16:00 Mechanical Ventilator 12/08/19 15:30 108 20 139/68 (91) 100 12/08/19 15:15 22 Mechanical Ventilator 100 12/08/19 15:06 108 23 100 12/08/19 15:00 112 20 122/63 (82) 100 12/08/19 15:00 122/63 12/08/19 14:30 111 23 116/59 (78) 99 12/08/19 14:00 110 19 118/61 (80) 100 12/08/19 14:00 118/61 12/08/19 13:30 108 22 109/62 (78) 100 12/08/19 13:00 108 23 110/62 (78) 100 12/08/19 13:00 110/62 12/08/19 13:00 23 Mechanical Ventilator 100 Intake and Output 12/08/19 12/09/19 19:00 07:00 Intake Total 898.28 ml 874.44 ml Output Total 5 ml 5 ml Balance 893.28 ml 869.44 ml Free Water 100 ml 30 ml IV Total 708.28 ml 639.44 ml Tube Feeding 90 ml 205 ml Output Urine Total 5 ml 5 ml Hemodialysis UF 0 ml # Bowel Movements 101 Microbiology Date/Time Source Procedure Growth Status 12/04/19 12:46 Blood Blood Culture - Preliminary NO GROWTH AFTER 4 DAYS Resulted 12/04/19 23:00 Sputum Gram Stain - Final Complete 12/04/19 23:00 Sputum Sputum Culture - Final NORMAL UPPER RESPIRATORY ALISIA PRESENT Complete 12/05/19 02:24 Urine,Clean Catch Urine Culture - Final NO GROWTH AFTER 48 HOURS Complete Current Medications Medications (Trade) Dose Ordered Sig/Vicki Route PRN Reason Start Time Stop Time Status Last Admin Dose Admin Acetaminophen (Tylenol) 650 mg Q4H PRN NG Temp >100.5 12/06/19 14:15 01/05/20 14:14 12/06/19 14:40 Acetaminophen (Tylenol) 650 mg Q4H PRN RECTAL Mild Pain (Pain Scale 1-3) 12/04/19 11:45 01/03/20 11:44 12/06/19 19:17 Chlorhexidine Gluconate (Arely-Hex 2%) 1 applic DAILY@1999 TOPIC 12/05/19 20:00 03/04/20 19:59 12/08/19 20:41 Dextrose (Dextrose 50%) 25 ml Q30M PRN IV Hypoglycemia 11/29/19 14:15 02/27/20 14:14 Dextrose (Dextrose 50%) 50 ml Q30M PRN IV Hypoglycemia 11/29/19 14:15 02/27/20 14:14 Fentanyl Citrate 2500 mcg/Sodium Chloride 250 ml @ 0 mls/hr Q24H IVPB 12/06/19 02:00 12/13/19 01:59 12/09/19 08:00 Hydralazine HCl (Apresoline) 10 mg Q4H PRN IV For High Blood Pressure 11/29/19 15:15 02/27/20 15:14 Norepinephrine Bitartrate 16 mg/ Dextrose 566 ml @ 0 mls/hr Q24H IV 12/06/19 09:00 01/05/20 08:59 12/09/19 08:00 Ondansetron HCl (Zofran) 4 mg Q6H PRN IVP Nausea & Vomiting 11/29/19 14:15 12/29/19 14:14 Pantoprazole (Protonix) 40 mg DAILY IVP 11/30/19 12:15 12/30/19 12:14 12/09/19 08:18 Piperacillin Sod/ Tazobactam Sod 3.375 gm/Dextrose 55 ml @ 13 mls/hr Q12H IVPB 12/08/19 12:00 12/15/19 11:59 12/09/19 08:18 Vancomycin HCl (Vanco rx to dose) 1 ea DAILY PRN MISC Per rx protocol 12/08/19 19:30 01/07/20 19:29 Vasopressin 100 units/Sodium Chloride 100 ml @ 0 mls/hr Q24H IV 12/06/19 09:00 01/05/20 08:59 12/06/19 09:03 Laboratory Tests 12/09/19 04:10: White Blood Count 18.1H, Red Blood Count 3.69L, Hemoglobin 11.2L, Hematocrit 33.7L, Mean Corpuscular Volume 91, Mean Corpuscular Hemoglobin 30.4, Mean Corpuscular Hemoglobin Concent 33.2, Red Cell Distribution Width 12.9, Platelet Count 141L, Mean Platelet Volume 9.5, Neutrophils (%) (Auto) , Lymphocytes (%) ( Auto) , Monocytes (%) (Auto) , Eosinophils (%) (Auto) , Basophils (%) (Auto) , Differential Total Cells Counted 100, Neutrophils % (Manual) 91H, Lymphocytes % (Manual) 3L, Monocytes % (Manual) 6, Eosinophils % (Manual) 0, Basophils % ( Manual) 0, Band Neutrophils 0, Platelet Estimate DecreasedL, Platelet Morphology Normal, Hypochromasia 1+, Sodium Level 145, Potassium Level 3.1L, Chloride Level 103, Carbon Dioxide Level 31, Anion Gap 11, Blood Urea Nitrogen 47H, Creatinine 5.4H, Estimat Glomerular Filtration Rate 11.0, Glucose Level 153H, Calcium Level 7.9#L, Total Bilirubin 1.9H, Direct Bilirubin 1.3H, Aspartate Amino Transf (AST/SGOT) 562H, Alanine Aminotransferase (ALT/SGPT) 585H , Alkaline Phosphatase 113, Total Protein 5.5L, Albumin 2.1L, Globulin 3.4, Albumin/Globulin Ratio 0.6L 12/09/19 08:40: Arterial Blood pH 7.215*L, Arterial Blood Partial Pressure CO2 68.7*H, Arterial Blood Partial Pressure O2 154.3H, Arterial Blood HCO3 27.2H, Arterial Blood Oxygen Saturation 98.2, Arterial Blood Base Excess -1.9, Melecio Test Positive Height (Feet): 5 Height (Inches): 6.00 Weight (Pounds): 177 Objective stable no bleeding at prepuce barnes indwelling, marge urine Kai Berger MD Dec 09, 2019 12:12
--- NOTE | 2019-12-09 12:55 | Nephrology Progress Note ---
Assessment/Plan Plan #ALBARO- concerns for developing ischemic ATN in the setting of sepsis- r/o vanco toxicity - r/o COVID nephropathy - now with likely ATN #Hyperkalemia due to renal insuffiency - exacerbated by acidosis #COID sepsis #COVID pneumonia #hypoxemic respiratary failure #HTN- now in shock #mediastinal PTX - next HD tomorrow - order placed- UF as tolerated - monitor I&Os - daily weights - monitor vinicio ayers - GOALS of care discussion - continue pressor support to maintain MAP > 65- continue vaso and levo - continue fentanyl dip - abx per ID- on vanco and zosyn - vent management per pulm -Abd Xray shows mediastinal PTX - too high risk for thorocotomy Subjective ROS Limited/Unobtainable: Yes Subjective underwent HD yesterday remains oliguric on Fio2 11 WBC downtrending remains on levo and vaso drips Abd Xray shows mediastinal PTX On fentanyl drip Objective Objective Last 24 Hour Vital Signs Date Time Temp Pulse Resp B/P (MAP) Pulse Ox O2 Delivery O2 Flow Rate FiO2 12/09/19 12:30 104 24 138/70 (92) 100 12/09/19 12:00 Mechanical Ventilator 12/09/19 12:00 107 12/09/19 12:00 100 12/09/19 12:00 98.4 105 26 141/71 (94) 100 12/09/19 12:00 141/71 12/09/19 12:00 26 Mechanical Ventilator 100 12/09/19 11:51 105 26 100 12/09/19 11:30 103 27 142/78 (99) 100 12/09/19 11:00 104 26 138/73 (94) 100 12/09/19 11:00 138/73 12/09/19 11:00 24 Mechanical Ventilator 100 12/09/19 10:30 103 26 142/74 (96) 100 12/09/19 10:00 102 25 138/72 (94) 100 12/09/19 10:00 124/73 12/09/19 10:00 26 Mechanical Ventilator 100 12/09/19 09:30 102 25 134/69 (90) 100 12/09/19 09:00 101 25 142/71 (94) 100 12/09/19 09:00 144/72 12/09/19 09:00 26 Mechanical Ventilator 100 12/09/19 08:30 101 25 134/72 (92) 100 12/09/19 08:00 100 12/09/19 08:00 100 12/09/19 08:00 98.6 101 26 143/79 (100) 100 12/09/19 08:00 135/69 12/09/19 08:00 27 Mechanical Ventilator 100 12/09/19 08:00 Mechanical Ventilator 12/09/19 07:30 101 28 135/74 (94) 100 12/09/19 07:12 105 25 100 12/09/19 07:00 137/69 12/09/19 07:00 26 Mechanical Ventilator 100 12/09/19 07:00 106 26 137/69 (91) 100 12/09/19 06:30 105 27 146/75 (98) 100 12/09/19 06:00 105 24 134/74 (94) 100 12/09/19 06:00 134/74 12/09/19 06:00 24 Mechanical Ventilator 100 12/09/19 05:30 106 14 140/69 (92) 100 12/09/19 05:00 107 26 148/73 (98) 100 12/09/19 05:00 148/73 12/09/19 05:00 26 Mechanical Ventilator 100 12/09/19 04:30 99 19 119/63 (81) 100 12/09/19 04:00 Mechanical Ventilator 12/09/19 04:00 114/62 12/09/19 04:00 26 Mechanical Ventilator 100 12/09/19 04:00 95 12/09/19 04:00 97.0 95 26 114/62 (79) 100 12/09/19 04:00 100 12/09/19 03:45 96 26 110/64 (79) 100 12/09/19 03:30 106 22 131/102 (112) 95 12/09/19 03:30 108 29 100 12/09/19 03:00 93 23 116/63 (80) 100 12/09/19 03:00 116/63 12/09/19 03:00 23 Mechanical Ventilator 100 12/09/19 02:30 94 24 109/59 (76) 100 12/09/19 02:00 112/59 12/09/19 02:00 25 Mechanical Ventilator 100 12/09/19 02:00 84 25 112/59 (76) 100 12/09/19 01:30 89 23 114/55 (74) 100 12/09/19 01:00 93 24 108/62 (77) 100 12/09/19 01:00 108/62 12/09/19 01:00 24 Mechanical Ventilator 100 12/09/19 00:30 88 23 107/59 (75) 100 12/09/19 00:00 89 12/09/19 00:00 Mechanical Ventilator 12/09/19 00:00 106/61 12/09/19 00:00 22 Mechanical Ventilator 100 12/09/19 00:00 100 12/09/19 00:00 97.0 89 22 106/61 (76) 100 12/08/19 23:30 80 22 111/62 (78) 100 12/08/19 23:10 103 32 100 12/08/19 23:00 89 24 113/63 (80) 100 12/08/19 23:00 113/63 12/08/19 23:00 24 Mechanical Ventilator 100 12/08/19 22:30 91 23 116/63 (80) 100 12/08/19 22:00 92 23 131/69 (89) 100 12/08/19 22:00 131/69 12/08/19 22:00 23 Mechanical Ventilator 100 12/08/19 21:30 98 27 137/65 (89) 100 12/08/19 21:00 93 25 134/70 (91) 100 12/08/19 21:00 134/70 12/08/19 21:00 25 Mechanical Ventilator 100 12/08/19 20:30 92 24 139/73 (95) 100 12/08/19 20:00 Mechanical Ventilator 12/08/19 20:00 100 12/08/19 20:00 140/73 12/08/19 20:00 25 Mechanical Ventilator 100 12/08/19 20:00 98.6 89 25 140/73 (95) 100 12/08/19 19:30 88 25 148/77 (100) 100 12/08/19 19:21 86 12/08/19 19:00 83 24 139/78 (98) 100 12/08/19 19:00 108 32 100 12/08/19 19:00 139/78 12/08/19 19:00 23 Mechanical Ventilator 100 12/08/19 18:30 90 30 124/65 (84) 100 12/08/19 18:00 124/67 12/08/19 18:00 22 Mechanical Ventilator 100 12/08/19 18:00 90 28 132/71 (91) 100 12/08/19 17:30 95 25 117/66 (83) 100 12/08/19 17:00 99 26 124/67 (86) 100 12/08/19 17:00 124/67 12/08/19 17:00 23 Mechanical Ventilator 100 12/08/19 16:30 101 27 118/63 (81) 100 12/08/19 16:00 101 12/08/19 16:00 100 12/08/19 16:00 97.7 100 26 121/67 (85) 100 12/08/19 16:00 121/67 12/08/19 16:00 23 Mechanical Ventilator 100 12/08/19 16:00 Mechanical Ventilator 12/08/19 15:30 108 20 139/68 (91) 100 12/08/19 15:15 22 Mechanical Ventilator 100 12/08/19 15:06 108 23 100 12/08/19 15:00 112 20 122/63 (82) 100 12/08/19 15:00 122/63 12/08/19 14:30 111 23 116/59 (78) 99 12/08/19 14:00 110 19 118/61 (80) 100 12/08/19 14:00 118/61 12/08/19 13:30 108 22 109/62 (78) 100 12/08/19 13:00 108 23 110/62 (78) 100 12/08/19 13:00 110/62 12/08/19 13:00 23 Mechanical Ventilator 100 Intake and Output 12/08/19 12/09/19 19:00 07:00 Intake Total 898.28 ml 874.44 ml Output Total 5 ml 5 ml Balance 893.28 ml 869.44 ml Free Water 100 ml 30 ml IV Total 708.28 ml 639.44 ml Tube Feeding 90 ml 205 ml Output Urine Total 5 ml 5 ml Hemodialysis UF 0 ml # Bowel Movements 101 Laboratory Tests 12/09/19 04:10: White Blood Count 18.1H, Red Blood Count 3.69L, Hemoglobin 11.2L, Hematocrit 33.7L, Mean Corpuscular Volume 91, Mean Corpuscular Hemoglobin 30.4, Mean Corpuscular Hemoglobin Concent 33.2, Red Cell Distribution Width 12.9, Platelet Count 141L, Mean Platelet Volume 9.5, Neutrophils (%) (Auto) , Lymphocytes (%) ( Auto) , Monocytes (%) (Auto) , Eosinophils (%) (Auto) , Basophils (%) (Auto) , Differential Total Cells Counted 100, Neutrophils % (Manual) 91H, Lymphocytes % (Manual) 3L, Monocytes % (Manual) 6, Eosinophils % (Manual) 0, Basophils % ( Manual) 0, Band Neutrophils 0, Platelet Estimate DecreasedL, Platelet Morphology Normal, Hypochromasia 1+, Sodium Level 145, Potassium Level 3.1L, Chloride Level 103, Carbon Dioxide Level 31, Anion Gap 11, Blood Urea Nitrogen 47H, Creatinine 5.4H, Estimat Glomerular Filtration Rate 11.0, Glucose Level 153H, Calcium Level 7.9#L, Total Bilirubin 1.9H, Direct Bilirubin 1.3H, Aspartate Amino Transf (AST/SGOT) 562H, Alanine Aminotransferase (ALT/SGPT) 585H , Alkaline Phosphatase 113, Total Protein 5.5L, Albumin 2.1L, Globulin 3.4, Albumin/Globulin Ratio 0.6L 12/09/19 08:40: Arterial Blood pH 7.215*L, Arterial Blood Partial Pressure CO2 68.7*H, Arterial Blood Partial Pressure O2 154.3H, Arterial Blood HCO3 27.2H, Arterial Blood Oxygen Saturation 98.2, Arterial Blood Base Excess -1.9, Melecio Test Positive Height (Feet): 5 Height (Inches): 6.00 Weight (Pounds): 177 Objective General Appearance: other - intubated- proned Lines, tubes and drains: central line HEENT: normocephalic, atraumatic Respiratory/Chest: rhonchi - bilaterally Cardiovascular/Chest: other - tachycardic Extremities: pitting Dorian Soriano M.D. Dec 09, 2019 12:55
[2019-12-09] MEDS ORDERED: NS 275ml ONE (13:03)
[2019-12-09] MEDS ORDERED: Sterile Water Irrig 1000ml IRRIG ONE (13:03)
[2019-12-09] MEDS ORDERED: Tubing IV Secondary IV ONE (13:03)
--- NOTE | 2019-12-09 13:03 | NUR ---
NURSE NOTES: Spoke to Chinmay with [facility] Nephrology to schedule HD for tomorrow 12/10/19 with HD nurse Hari.
--- NOTE | 2019-12-09 13:46 | Cardiac Electrophysiology PN ---
Assessment/Plan Assessment/Plan 1. Atrial fib with RVR 170 right before intubation on 12/04/19. Converted to Sinus tach after intubation. Troponin 0.77. No further atrial fib 2. Sinus Tachycardia due to respiratory failure and COVID-19 pneumonia and superimposing infection. On IV antibiotic per ID. Echocardiogram after Covid negative. Completed hydroxychloroquine. 3. Septic shock. On Levophed 4 Mcg. Will try to taper off 4. Respiratory failure, on the Vent by Dr. Cortes.100% Fio2 PEEP 10 and is proned 5. Acute renal failure. HD per Dr. Sanchez via RFV [place] 6. Full code DW RN Subjective Subjective Intubated in ICU on 100% Fio2 and PEEP 10, on Levo 4 mcg and is proned now. Had Atrial fib with RVR 160s on 12/04/19 but no recurrence. K today 5.5. Last HD 12/08/19 with no output Objective Last 24 Hour Vital Signs Date Time Temp Pulse Resp B/P (MAP) Pulse Ox O2 Delivery O2 Flow Rate FiO2 12/09/19 13:30 106 25 144/69 (94) 100 12/09/19 13:30 106 25 144/69 (94) 100 12/09/19 13:15 105 23 141/72 (95) 100 12/09/19 13:00 107 24 138/69 (92) 100 12/09/19 12:30 104 24 138/70 (92) 100 12/09/19 12:00 Mechanical Ventilator 12/09/19 12:00 107 12/09/19 12:00 100 12/09/19 12:00 98.4 105 26 141/71 (94) 100 12/09/19 12:00 141/71 12/09/19 12:00 26 Mechanical Ventilator 100 12/09/19 11:51 105 26 100 12/09/19 11:30 103 27 142/78 (99) 100 12/09/19 11:00 104 26 138/73 (94) 100 12/09/19 11:00 138/73 12/09/19 11:00 24 Mechanical Ventilator 100 12/09/19 10:30 103 26 142/74 (96) 100 12/09/19 10:00 102 25 138/72 (94) 100 12/09/19 10:00 124/73 12/09/19 10:00 26 Mechanical Ventilator 100 12/09/19 09:30 102 25 134/69 (90) 100 12/09/19 09:00 101 25 142/71 (94) 100 12/09/19 09:00 144/72 12/09/19 09:00 26 Mechanical Ventilator 100 12/09/19 08:30 101 25 134/72 (92) 100 12/09/19 08:00 100 12/09/19 08:00 100 12/09/19 08:00 98.6 101 26 143/79 (100) 100 12/09/19 08:00 135/69 12/09/19 08:00 27 Mechanical Ventilator 100 12/09/19 08:00 Mechanical Ventilator 12/09/19 07:30 101 28 135/74 (94) 100 12/09/19 07:12 105 25 100 12/09/19 07:00 137/69 12/09/19 07:00 26 Mechanical Ventilator 100 12/09/19 07:00 106 26 137/69 (91) 100 12/09/19 06:30 105 27 146/75 (98) 100 12/09/19 06:00 105 24 134/74 (94) 100 12/09/19 06:00 134/74 12/09/19 06:00 24 Mechanical Ventilator 100 12/09/19 05:30 106 14 140/69 (92) 100 12/09/19 05:00 107 26 148/73 (98) 100 12/09/19 05:00 148/73 12/09/19 05:00 26 Mechanical Ventilator 100 12/09/19 04:30 99 19 119/63 (81) 100 12/09/19 04:00 Mechanical Ventilator 12/09/19 04:00 114/62 12/09/19 04:00 26 Mechanical Ventilator 100 12/09/19 04:00 95 12/09/19 04:00 97.0 95 26 114/62 (79) 100 12/09/19 04:00 100 12/09/19 03:45 96 26 110/64 (79) 100 12/09/19 03:30 106 22 131/102 (112) 95 12/09/19 03:30 108 29 100 12/09/19 03:00 93 23 116/63 (80) 100 12/09/19 03:00 116/63 12/09/19 03:00 23 Mechanical Ventilator 100 12/09/19 02:30 94 24 109/59 (76) 100 12/09/19 02:00 112/59 12/09/19 02:00 25 Mechanical Ventilator 100 12/09/19 02:00 84 25 112/59 (76) 100 12/09/19 01:30 89 23 114/55 (74) 100 12/09/19 01:00 93 24 108/62 (77) 100 12/09/19 01:00 108/62 12/09/19 01:00 24 Mechanical Ventilator 100 12/09/19 00:30 88 23 107/59 (75) 100 12/09/19 00:00 89 12/09/19 00:00 Mechanical Ventilator 12/09/19 00:00 106/61 12/09/19 00:00 22 Mechanical Ventilator 100 12/09/19 00:00 100 12/09/19 00:00 97.0 89 22 106/61 (76) 100 12/08/19 23:30 80 22 111/62 (78) 100 12/08/19 23:10 103 32 100 12/08/19 23:00 89 24 113/63 (80) 100 12/08/19 23:00 113/63 12/08/19 23:00 24 Mechanical Ventilator 100 12/08/19 22:30 91 23 116/63 (80) 100 12/08/19 22:00 92 23 131/69 (89) 100 12/08/19 22:00 131/69 12/08/19 22:00 23 Mechanical Ventilator 100 12/08/19 21:30 98 27 137/65 (89) 100 12/08/19 21:00 93 25 134/70 (91) 100 12/08/19 21:00 134/70 12/08/19 21:00 25 Mechanical Ventilator 100 12/08/19 20:30 92 24 139/73 (95) 100 12/08/19 20:00 Mechanical Ventilator 12/08/19 20:00 100 12/08/19 20:00 140/73 12/08/19 20:00 25 Mechanical Ventilator 100 12/08/19 20:00 98.6 89 25 140/73 (95) 100 12/08/19 19:30 88 25 148/77 (100) 100 12/08/19 19:21 86 12/08/19 19:00 83 24 139/78 (98) 100 12/08/19 19:00 108 32 100 12/08/19 19:00 139/78 12/08/19 19:00 23 Mechanical Ventilator 100 12/08/19 18:30 90 30 124/65 (84) 100 12/08/19 18:00 124/67 12/08/19 18:00 22 Mechanical Ventilator 100 12/08/19 18:00 90 28 132/71 (91) 100 12/08/19 17:30 95 25 117/66 (83) 100 12/08/19 17:00 99 26 124/67 (86) 100 12/08/19 17:00 124/67 12/08/19 17:00 23 Mechanical Ventilator 100 12/08/19 16:30 101 27 118/63 (81) 100 12/08/19 16:00 101 12/08/19 16:00 100 12/08/19 16:00 97.7 100 26 121/67 (85) 100 12/08/19 16:00 121/67 12/08/19 16:00 23 Mechanical Ventilator 100 12/08/19 16:00 Mechanical Ventilator 12/08/19 15:30 108 20 139/68 (91) 100 12/08/19 15:15 22 Mechanical Ventilator 100 12/08/19 15:06 108 23 100 12/08/19 15:00 112 20 122/63 (82) 100 12/08/19 15:00 122/63 12/08/19 14:30 111 23 116/59 (78) 99 12/08/19 14:00 110 19 118/61 (80) 100 12/08/19 14:00 118/61 Intake and Output 12/08/19 12/09/19 19:00 07:00 Intake Total 898.28 ml 874.44 ml Output Total 5 ml 5 ml Balance 893.28 ml 869.44 ml Free Water 100 ml 30 ml IV Total 708.28 ml 639.44 ml Tube Feeding 90 ml 205 ml Output Urine Total 5 ml 5 ml Hemodialysis UF 0 ml # Bowel Movements 101 Laboratory Tests Test 12/09/19 04:10 12/09/19 08:40 White Blood Count 18.1 K/UL (4.8-10.8) H Red Blood Count 3.69 M/UL (4.70-6.10) L Hemoglobin 11.2 G/DL (14.2-18.0) L Hematocrit 33.7 % (42.0-52.0) L Mean Corpuscular Volume 91 FL (80-99) Mean Corpuscular Hemoglobin 30.4 PG (27.0-31.0) Mean Corpuscular Hemoglobin Concent 33.2 G/DL (32.0-36.0) Red Cell Distribution Width 12.9 % (11.6-14.8) Platelet Count 141 K/UL (150-450) L Mean Platelet Volume 9.5 FL (6.5-10.1) Neutrophils (%) (Auto) % (45.0-75.0) Lymphocytes (%) (Auto) % (20.0-45.0) Monocytes (%) (Auto) % (1.0-10.0) Eosinophils (%) (Auto) % (0.0-3.0) Basophils (%) (Auto) % (0.0-2.0) Differential Total Cells Counted 100 Neutrophils % (Manual) 91 % (45-75) H Lymphocytes % (Manual) 3 % (20-45) L Monocytes % (Manual) 6 % (1-10) Eosinophils % (Manual) 0 % (0-3) Basophils % (Manual) 0 % (0-2) Band Neutrophils 0 % (0-8) Platelet Estimate Decreased L Platelet Morphology Normal Hypochromasia 1+ Sodium Level 145 MMOL/L (136-145) Potassium Level 3.1 MMOL/L (3.5-5.1) L Chloride Level 103 MMOL/L (98-107) Carbon Dioxide Level 31 MMOL/L (21-32) Anion Gap 11 mmol/L (5-15) Blood Urea Nitrogen 47 mg/dL (7-18) H Creatinine 5.4 MG/DL (0.55-1.30) H Estimat Glomerular Filtration Rate 11.0 mL/min (>60) Glucose Level 153 MG/DL (74-106) H Calcium Level 7.9 MG/DL (8.5-10.1) #L Total Bilirubin 1.9 MG/DL (0.2-1.0) H Direct Bilirubin 1.3 MG/DL (0.0-0.3) H Aspartate Amino Transf (AST/SGOT) 562 U/L (15-37) H Alanine Aminotransferase (ALT/SGPT) 585 U/L (12-78) H Alkaline Phosphatase 113 U/L (46-116) Total Protein 5.5 G/DL (6.4-8.2) L Albumin 2.1 G/DL (3.4-5.0) L Globulin 3.4 g/dL Albumin/Globulin Ratio 0.6 (1.0-2.7) L Arterial Blood pH 7.215 (7.350-7.450) Arterial Blood Partial Pressure CO2 68.7 mmHg (35.0-45.0) *H Arterial Blood Partial Pressure O2 154.3 mmHg (75.0-100.0) H Arterial Blood HCO3 27.2 mmol/L (22.0-26.0) H Arterial Blood Oxygen Saturation 98.2 % (95-100) Arterial Blood Base Excess -1.9 (-2-2) Melecio Test Positive Objective HEAD AND NECK: Orally intubated No JVD LUNGS: Decreased breath sounds. Coarse rhonchi. CARDIOVASCULAR: Tachycardic S1 and S2 with no gallop. ABDOMEN: Soft. EXTREMITIES: 1 plus pitting edema.RFV [place] in place Raul Appiah MD Dec 09, 2019 13:46
--- NOTE | 2019-12-09 13:57 | NUR ---
CASE MANAGEMENT: REVIEW SI: COVID-19 INFECTION . PNA . INTUBATED RIGHT FEMORAL TEM HD CATH PLACEMENT 12/04 T 98.6 HR 106 RR 27 BP 143/79 SAT 100% MECH VENT FIO2 100% WBC 18.1 BUN 47 CR 5.4 AST 562 ALT 585 ABG: PH 7.215 PCO2 68.7 PO2 154.3 HCO3 27.2 IS: VASOPRESSIN IV Q24HR LEVOPHED IV Q24HR FENTANYL IV Q24HR ZOSYN IV Q12HR KCl IVF @ 50ML/HR HD PRN NGT FEEDING ICU STATUS DCP: PATIENT IS FROM HOME
--- NOTE | 2019-12-09 14:00 | NUR ---
NURSE NOTES: Dr Appiah at bedside assessing pt. Pt in no distress, FiO2 decreased to 90%, spO2 noted 100%.
--- NOTE | 2019-12-09 16:30 | NUR ---
NURSE NOTES: Pt placed back to supine with assistance from 2 RNs and RT personnel. Oral care provided, pt in no distress. [place] cath Central line dressing changed. Abd assessed, noted round, large and soft with active bowel sounds to all quadrants. Levophed turned off 1t 1600 for SBP>140. Pt is also afebrile at this time. FiO2 increased to 90%. Will continue to monitor.
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
--- NOTE | 2019-12-09 19:18 | NUR ---
HAND-OFF: Report given to DARYA Maldonado.
--- NOTE | 2019-12-09 19:34 | NUR ---
NURSE NOTES: PATIENT SEDATED, ON ETT TO VENT AC20/TV500/FIO2 90%/PEEP7, O2 SATURATION 96% NOTED, HEART RATE 110'S/MIN ST, NGT TO LEFT NARES, INTACT AND PATENT,ONGOING NEPRO AT 30ML/HR, HOB 30 DEGREES, RECTAL TUBE INTACT, DARK GREENISH STOOL NOTED, F/C INTACT AND PATENT, OLIGURIA STATUS, YESI CATHETER W/PIG TAIL TO RIGHT FEMORAL AND PPL TO LEFT WRIST, ONGOING FENTANYL 150MCG/HR VIA YESI W/ PIGTAIL, LOWER BED POSITION, ON BED ALARM AND LOCKED STATUS, COOLING BLANKET STATUS, WILL CONTINUE TO MONITOR.
[2019-12-09] MEDS: Dyna-Hex 2% Top Sol 2oz TOPIC SCH (19:45)
--- NOTE | 2019-12-09 22:08 | NUR ---
NURSE NOTES: ONGOING FENTANYL 200MCG/HR, RASS SCORE -2 NOTED AT THIS TIME.
[2019-12-09] MEDS: Acetaminophen 650mg/20.3ml NG PRN (23:24)
--- NOTE | 2019-12-09 23:35 | NUR ---
NURSE NOTES: LE; TEMP 101.7F BY RECTAL, GIVEN TYLENOL 650MG VIA NGT AT 2330PM, CONTINUED COOLING BLANKET STATUS, WILL CONTINUE TO MONITOR.
--- NOTE | 2019-12-09 23:50 | NUR ---
HAND-OFF: Report given to MELVI ESCOBAR RN.
[2019-12-10] VITALS (46 sets, daily range): BP systolic 90–132; BP diastolic 52–71
--- NOTE | 2019-12-10 01:00 | NUR ---
Nurse Note: Pt resting, non verbal, orally intubated. No changes to vent setting; AC 20, TV 500, FiO2 90%, Peep 7; O2 sat 98%. Fentanyl at 200mcg/min via RT femoral Bismark cath with pigtail. Nepro held via NGT. Cooling blanket intact; rectal temp 102.3F with cooling blanket. Rectal tube and barnes cath in place. SCD on pt and device on. All safety measures met; will endorse to oncoming shift for continuity of care.
--- NOTE | 2019-12-10 04:20 | NUR ---
Nurse Note: Pt proned around 0400. Pt placed on cooling blanket; rectal temp 102.1F. Tylenol administered via NGT. Nepro held. BP 90/58; levo started at 12 mcg/min; will titrate. Fentanyl titrated after proning for comfort. RT Lg at bedside to monitor O2. All safety measures met; will continue to monitor.
[2019-12-10] MEDS: Acetaminophen 650mg/20.3ml NG PRN (04:34)
--- NOTE | 2019-12-10 06:45 | NUR ---
Nurse Note: Pt resting, non verbal, orally intubated. No changes to vent setting; AC 20, TV 500, FiO2 90%, Peep 7; O2 sat 98%. Pt prone positioned. Levo held at 0640. Fentanyl at 200mcg/min via RT femoral Bismark cath with pigtail. Nepro held via NGT. Cooling blanket intact; rectal temp 99.1F after cooling measures, Tylenol, and ice packs. All safety measures met; will endorse to oncoming shift for continuity of care.
--- NOTE | 2019-12-10 06:55 | General Progress Note ---
Assessment/Plan Problem List: (1) Elevated LFTs ICD Codes: R79.89 - Other specified abnormal findings of blood chemistry SNOMED: 152996846, 351272637 (2) HTN (hypertension) ICD Codes: I10 - Essential (primary) hypertension SNOMED: 72927576 (3) Suspected COVID-19 virus infection ICD Codes: R68.89 - Other general symptoms and signs SNOMED: 933106236 (4) Pneumonia ICD Codes: J18.9 - Pneumonia, unspecified organism SNOMED: 680445740 (5) Respiratory distress ICD Codes: R06.03 - Acute respiratory distress SNOMED: 871589003 (6) Pneumomediastinum ICD Codes: J98.2 - Interstitial emphysema SNOMED: 09921061 (7) COVID-19 ICD Codes: U07.1 - COVID-19 SNOMED: 800790744 (8) Hypotension ICD Codes: I95.9 - Hypotension, unspecified SNOMED: 63920400 Status: unchanged Assessment/Plan: NGTF on hold for placing the patient on prone position rectal tube in place with 350 cc drainage elevated LFTS most likely due to shock liver>>> improving repeat labs in am hepatitis panel>>>Neg abd us when off of isolation fu nephrology recent labs and notes reviewed D/W the nurse Subjective ROS Limited/Unobtainable: No Allergies: Coded Allergies: No Known Allergies (Unverified , 11/29/19) Objective Last 24 Hour Vital Signs Date Time Temp Pulse Resp B/P (MAP) Pulse Ox O2 Delivery O2 Flow Rate FiO2 12/10/19 06:51 99.3 12/10/19 06:00 99.3 108 26 123/54 (77) 99 12/10/19 06:00 123/54 12/10/19 06:00 27 Mechanical Ventilator 90 12/10/19 05:28 115 31 100 12/10/19 05:00 118 26 116/57 (76) 93 12/10/19 05:00 116/54 12/10/19 05:00 28 Mechanical Ventilator 90 12/10/19 04:00 124 28 90/58 (69) 85 12/10/19 04:00 90 12/10/19 04:00 Mechanical Ventilator 12/10/19 04:00 90/58 12/10/19 04:00 30 Mechanical Ventilator 90 12/10/19 04:00 128 4/28/20 03:30 118 30 100 12/10/19 03:00 118 28 109/56 (73) 94 12/10/19 03:00 28 Mechanical Ventilator 90 12/10/19 02:00 27 Mechanical Ventilator 90 12/10/19 02:00 120 29 107/56 (73) 94 12/10/19 01:00 102.3 120 27 103/55 (71) 93 12/10/19 01:00 29 Mechanical Ventilator 90 12/10/19 00:56 118 27 100 12/10/19 00:00 120 28 102/52 (69) 92 12/10/19 00:00 119 12/10/19 00:00 28 Mechanical Ventilator 90 12/10/19 00:00 90 12/10/19 00:00 120 12/10/19 00:00 Mechanical Ventilator 12/09/19 23:30 120 28 100 12/09/19 23:26 30 Mechanical Ventilator 100 12/09/19 23:00 121 30 113/57 (75) 91 12/09/19 23:00 30 Mechanical Ventilator 100 12/09/19 22:30 121 29 114/59 (77) 91 12/09/19 22:00 121 27 111/58 (75) 92 12/09/19 22:00 27 Mechanical Ventilator 100 12/09/19 21:30 121 29 113/59 (77) 93 12/09/19 21:00 29 Mechanical Ventilator 100 12/09/19 21:00 119 29 107/55 (72) 93 12/09/19 20:45 120 28 113/57 (75) 94 12/09/19 20:41 112 30 100 12/09/19 20:30 119 28 114/58 (76) 94 12/09/19 20:15 117 24 103/59 (74) 90 12/09/19 20:05 26 Mechanical Ventilator 100 12/09/19 20:00 Mechanical Ventilator 12/09/19 20:00 100.0 119 26 116/51 (72) 94 12/09/19 20:00 26 Mechanical Ventilator 100 12/09/19 20:00 119 12/09/19 19:55 26 Mechanical Ventilator 100 12/09/19 19:50 26 Mechanical Ventilator 90 12/09/19 19:45 24 Mechanical Ventilator 90 12/09/19 19:45 118 24 116/51 (72) 97 12/09/19 19:30 117 28 110/52 (71) 95 12/09/19 19:30 26 Mechanical Ventilator 90 12/09/19 19:30 114 31 100 12/09/19 19:15 117 24 113/52 (72) 96 12/09/19 19:00 117 26 118/54 (75) 97 12/09/19 19:00 26 Mechanical Ventilator 90 12/09/19 18:45 118 22 119/53 (75) 97 12/09/19 18:30 118 20 121/63 (82) 98 12/09/19 18:15 118 19 122/58 (79) 99 12/09/19 18:00 24 Mechanical Ventilator 90 12/09/19 18:00 119 24 126/55 (78) 97 12/09/19 17:45 119 25 130/58 (82) 98 12/09/19 17:30 120 23 126/58 (80) 99 12/09/19 17:15 118 24 119/56 (77) 91 12/09/19 17:00 90 12/09/19 17:00 25 Mechanical Ventilator 90 12/09/19 17:00 Mechanical Ventilator 12/09/19 17:00 119 25 124/82 (96) 100 12/09/19 16:45 123 27 140/67 (91) 100 12/09/19 16:30 119 26 135/68 (90) 96 12/09/19 16:15 119 22 131/71 (91) 96 12/09/19 16:00 118 12/09/19 16:00 Mechanical Ventilator 12/09/19 16:00 142/74 12/09/19 16:00 23 Mechanical Ventilator 70 12/09/19 16:00 70 12/09/19 16:00 97.4 114 23 142/74 (96) 97 12/09/19 15:45 111 23 143/72 (95) 98 12/09/19 15:30 111 23 129/69 (89) 98 12/09/19 15:15 112 23 131/68 (89) 98 12/09/19 15:00 112 22 132/65 (87) 98 12/09/19 15:00 143/72 12/09/19 15:00 23 Mechanical Ventilator 70 12/09/19 14:45 111 23 143/73 (96) 97 12/09/19 14:45 70 12/09/19 14:43 110 28 70 12/09/19 14:30 110 25 142/72 (95) 100 12/09/19 14:15 108 25 136/73 (94) 100 12/09/19 14:00 107 24 151/73 (99) 100 12/09/19 14:00 90 12/09/19 14:00 151/73 12/09/19 14:00 24 Mechanical Ventilator 90 12/09/19 13:45 107 25 139/69 (92) 100 12/09/19 13:30 24 Mechanical Ventilator 90 12/09/19 13:30 106 25 144/69 (94) 100 12/09/19 13:15 105 23 141/72 (95) 100 12/09/19 13:00 107 24 138/69 (92) 100 12/09/19 13:00 138/69 12/09/19 13:00 24 Mechanical Ventilator 100 12/09/19 12:30 104 24 138/70 (92) 100 12/09/19 12:00 Mechanical Ventilator 12/09/19 12:00 107 12/09/19 12:00 100 12/09/19 12:00 98.4 105 26 141/71 (94) 100 12/09/19 12:00 141/71 12/09/19 12:00 26 Mechanical Ventilator 100 12/09/19 11:51 105 26 100 12/09/19 11:30 103 27 142/78 (99) 100 12/09/19 11:00 104 26 138/73 (94) 100 12/09/19 11:00 138/73 12/09/19 11:00 24 Mechanical Ventilator 100 12/09/19 10:30 103 26 142/74 (96) 100 12/09/19 10:00 102 25 138/72 (94) 100 12/09/19 10:00 124/73 12/09/19 10:00 26 Mechanical Ventilator 100 12/09/19 09:30 102 25 134/69 (90) 100 12/09/19 09:00 101 25 142/71 (94) 100 12/09/19 09:00 144/72 12/09/19 09:00 26 Mechanical Ventilator 100 12/09/19 08:30 101 25 134/72 (92) 100 12/09/19 08:00 100 12/09/19 08:00 100 12/09/19 08:00 98.6 101 26 143/79 (100) 100 12/09/19 08:00 135/69 12/09/19 08:00 27 Mechanical Ventilator 100 12/09/19 08:00 Mechanical Ventilator 12/09/19 07:30 101 28 135/74 (94) 100 12/09/19 07:12 105 25 100 12/09/19 07:00 137/69 12/09/19 07:00 26 Mechanical Ventilator 100 12/09/19 07:00 106 26 137/69 (91) 100 Intake and Output 12/09/19 12/10/19 19:00 07:00 Intake Total 642.91 ml 340 ml Output Total 160 ml 210 ml Balance 482.91 ml 130 ml Free Water 10 ml IV Total 327.91 ml 305 ml Tube Feeding 305 ml 35 ml Output Urine Total 40 ml 10 ml Stool Total 120 ml 200 ml Laboratory Tests 12/09/19 08:40: Arterial Blood pH 7.215*L, Arterial Blood Partial Pressure CO2 68.7*H, Arterial Blood Partial Pressure O2 154.3H, Arterial Blood HCO3 27.2H, Arterial Blood Oxygen Saturation 98.2, Arterial Blood Base Excess -1.9, Melecio Test Positive 12/10/19 04:56: White Blood Count [Pending], Red Blood Count [Pending], Hemoglobin [Pending], Hematocrit [Pending], Mean Corpuscular Volume [Pending], Mean Corpuscular Hemoglobin [Pending], Mean Corpuscular Hemoglobin Concent [Pending], Red Cell Distribution Width [Pending], Platelet Count [Pending], Mean Platelet Volume [ Pending], Neutrophils (%) (Auto) [Pending], Lymphocytes (%) (Auto) [Pending], Monocytes (%) (Auto) [Pending], Eosinophils (%) (Auto) [Pending], Basophils (%) (Auto) [Pending], Sodium Level [Pending], Potassium Level [Pending], Chloride Level [Pending], Carbon Dioxide Level [Pending], Blood Urea Nitrogen [Pending], Creatinine [Pending], Estimat Glomerular Filtration Rate [Pending], Glucose Level [Pending], Calcium Level [Pending], Total Bilirubin [Pending], Aspartate Amino Transf (AST/SGOT) [Pending], Alanine Aminotransferase (ALT/SGPT) [Pending] , Alkaline Phosphatase [Pending], Total Protein [Pending], Albumin [Pending], Globulin [Pending], Random Vancomycin Level [Pending] Height (Feet): 5 Height (Inches): 6.00 Weight (Pounds): 178 General Appearance: lethargic EENT: normal ENT inspection Neck: supple Cardiovascular: tachycardia Respiratory/Chest: decreased breath sounds Abdomen: normal bowel sounds, non tender, soft Extremities: non-tender João Rdz MD Dec 10, 2019 06:55
--- NOTE | 2019-12-10 07:10 | NUR ---
Nurse Note: Spoke with Dr. Rdz about pt update. Dr. Rdz aware of being in prone position, on fentanyl and started levo at 0400 to 0630; Nepro is held after prone position due to aspiration. Report given to DARYA German for continuity of care.
--- NOTE | 2019-12-10 07:20 | NUR ---
NURSE NOTES: Received patient form DARYA Camarena. Patient in prone position. Patient sedated with RASS score -2 at this time. Patient on fentanyl drip at 200mcg/hr. Patient vital signs stable. Blood pressure 109/52. Patient orally intubated with ET tube 8cm and 24cm at the lip line. Ventilator setting AC 20, tidal volume 500, FiO2 100%, and PEEP 7. Patient tolerating with no sign of distress. RR 25 and SpO2 99%. Patient has nasal gastric tube that is patent, 65cm at the lip line, asymptomatic, and clamped at this time. Patient has rectal tube that is patent and draining dark green thin stool at this time. Patient has barnes for urine retention that is patent, asymptomatic, and draining small amount of dark marge urine. Patient has right femoral jia catheter with pigtail that is patent, asymptomatic, and running fentanyl at this time. Patient had hemodialysis order for today. Will follow up with dialysis nurse. Patient has left wrist 20 gauge peripheral IV that is patent, asymptomatic, and saline locked at this time. patient has sacral open wound and psoriasis plaques on his abdomen and legs. Patient bed in low position with bed alarm on and call light in reach at this time. Will continue to monitor. Oral care performed.
[2019-12-10 07:41] LABS: HEMATOCRIT 32.5 % (42.0-52.0); HEMOGLOBIN 10.9 G/DL (14.2-18.0); MEAN CORPUSCULAR VOLUME 91 FL (80-99); PLATELET COUNT 128 K/UL (150-450); RED BLOOD COUNT 3.57 M/UL (4.70-6.10); RED CELL DISTRIBUTION WIDTH 12.7 % (11.6-14.8)
[2019-12-10 07:57] LABS: WHITE BLOOD COUNT 23.7 K/UL (4.8-10.8)
[2019-12-10] MEDS: Vasopressin 100 UNITS in NS 95 ML IV SCH (08:46)
[2019-12-10] MEDS: Pantoprazole Inj IVP SCH (08:46)
[2019-12-10] MEDS: Norepinephrine Bitartrate 16 MG in D5W 500ml 550 ML IV SCH (08:46)
[2019-12-10 09:04] LABS: ALANINE AMINOTRANSFERASE 392 U/L (12-78); ALBUMIN 2.2 G/DL (3.4-5.0); ALBUMIN/GLOBULIN RATIO 0.7 (1.0-2.7); ALKALINE PHOSPHATASE 143 U/L (46-116); ANION GAP 18 mmol/L (5-15); ASPARTATE AMINO TRANSFERASE 254 U/L (15-37); BILIRUBIN,TOTAL 2.2 MG/DL (0.2-1.0); BLOOD UREA NITROGEN 80 mg/dL (7-18); CALCIUM 7.4 MG/DL (8.5-10.1); CARBON DIOXIDE 26 MMOL/L (21-32); CHLORIDE 105 MMOL/L (98-107); CREATININE 7.9 MG/DL (0.55-1.30); POTASSIUM 3.6 MMOL/L (3.5-5.1); SODIUM 149 MMOL/L (136-145)
[2019-12-10 09:17] LABS: BILIRUBIN,DIRECT 1.8 MG/DL (0.0-0.3)
--- NOTE | 2019-12-10 09:17 | NUR ---
RD ASSESSMENT & RECOMMENDATIONS SEE CARE ACTIVITY FOR COMPLETE ASSESSMENT DAILY ESTIMATED NEEDS: Needs based on Critical care 68.4kg abw 22-28 kcals/kg 6459-6809 total kcals 1.2-2 g protein/kg 82-137 g total protein 25-30 mL/kg 9157-0041 total fluid mLs NUTRITION DIAGNOSIS: Altered nutrition related lab values r/t clinical status as evidenced by mildly elev BG 103-133, elev T bili, elev WBC (34.3), febrile (tmax 102.9), critical ABG, now s/p intubation on pressor support. CURRENT TF:Nepro @35ml/hr x24 hrs ENTERAL NUTRITION RECOMMENDATIONS: Nepro @35ml/hr x24 hrs to provide 840ml, 1512 kcal, 68g pro, 611ml free H2O - WITH HEMODYNAMIC STABILITY, maintain current TF - Flush per MD/ HOB over 30 degrees. 1) Without hemodynamic stability, rec trophic feeds to maintain gut integrity, rec Nepro @5-10ml/hr as able. 2) When Tolerating TF at goal of 35ml/hr and Prosource in stock, rec to add Prosource BID to better meet protein needs. Will provide additional 22g pro. ADDITIONAL RECOMMENDATIONS: 1) Monitor hemodynamic stability: NE held 12/09 2) Rec HgA1C for eval 3) NISS w/ TF (elev BGs) 4) Maintain calibrated bed scale wts 5) Monitor for continuity of HD: first HD on 12/05 6) Monitor TF held time due to need to be on prone position -> monitor need to adjust TF rate to meet nutritional needs
[2019-12-10] MEDS ORDERED: Piperacillin/Tazobactam 2.25 GM in D5W 55 ML IV SCH (10:00)
--- NOTE | 2019-12-10 10:00 | NUR ---
NURSE NOTES: Levophed resumed at 2mcg/min. Blood pressure 104/61. All other vital signs stable. Will continue to monitor.
[2019-12-10] MEDS: Zosyn 2.25 gm in D5W 55ml IV SCH ×2 (11:16→17:30)
[2019-12-10] MEDS: fentaNYL Citrate 2,500 MCG in NS 200 ML IVPB SCH (11:17)
--- NOTE | 2019-12-10 11:47 | Pulmonology Progress Note ---
Assessment/Plan Assessment/Plan IMPRESSION: 1. Bilateral pneumonia. 2. Positive COVID-19. 3. Respiratory failure. DISCUSSION: Intubated On AC 20; FiO2 90; PEEP 7; SaO2 97% Abd Xray shows mediastinal PTX Recent CXR 12/06; no PTX or pneumomediastinum seen Continue proning On Fentanyl due to high triglycerides Continue proning as heart rate tolerates Saturations are better Grave prognosis but slowly better I will follow carefully. S/p HD S/p Actemra Blood CS ? contaminant Needs ongoing HD Urine CS negative Sushil Cortes M.D. Subjective ROS Limited/Unobtainable: No Interval Events: Intubated ;proning continuing Constitutional: Reports: no symptoms, other - lethargic, weak, on pressors HEENT: Repors: no symptoms Respiratory: Reports: no symptoms Cardiovascular: Reports: no symptoms Gastrointestinal/Abdominal: Denies: nausea, vomiting Genitourinary: Reports: no symptoms Psychiatric: Reports: other - NA Skin: Denies: rash Musculoskeletal: Reports: other - NA Allergies: Coded Allergies: No Known Allergies (Unverified , 11/29/19) Objective Last 24 Hour Vital Signs Date Time Temp Pulse Resp B/P (MAP) Pulse Ox O2 Delivery O2 Flow Rate FiO2 12/10/19 11:28 95 24 100 12/10/19 11:17 25 Mechanical Ventilator 100 12/10/19 11:00 96 19 110/55 (73) 99 12/10/19 10:30 95 25 105/57 (73) 98 12/10/19 10:00 95 25 110/57 (74) 95 12/10/19 09:45 78 25 108/56 (73) 95 12/10/19 09:30 96 25 102/54 (70) 96 12/10/19 09:30 99 21 100 12/10/19 09:15 98 25 98/55 (69) 98 12/10/19 09:00 97 25 99/56 (70) 98 12/10/19 09:00 98/55 12/10/19 09:00 25 Mechanical Ventilator 100 12/10/19 08:46 100/58 12/10/19 08:00 Mechanical Ventilator 12/10/19 08:00 25 Mechanical Ventilator 100 12/10/19 08:00 100 12/10/19 08:00 97.9 100 25 100/55 (70) 97 12/10/19 07:00 28 Mechanical Ventilator 100 12/10/19 07:00 97.9 103 21 93/53 (66) 98 12/10/19 06:59 104 23 100 12/10/19 06:51 99.3 12/10/19 06:00 99.3 108 26 123/54 (77) 99 12/10/19 06:00 123/54 12/10/19 06:00 27 Mechanical Ventilator 90 12/10/19 05:28 115 31 100 12/10/19 05:00 118 26 116/57 (76) 93 12/10/19 05:00 116/54 12/10/19 05:00 28 Mechanical Ventilator 90 12/10/19 04:00 124 28 90/58 (69) 85 12/10/19 04:00 90 12/10/19 04:00 Mechanical Ventilator 12/10/19 04:00 90/58 12/10/19 04:00 30 Mechanical Ventilator 90 12/10/19 04:00 128 12/10/19 03:30 118 30 100 12/10/19 03:00 118 28 109/56 (73) 94 12/10/19 03:00 28 Mechanical Ventilator 90 12/10/19 02:00 27 Mechanical Ventilator 90 12/10/19 02:00 120 29 107/56 (73) 94 12/10/19 01:00 102.3 120 27 103/55 (71) 93 12/10/19 01:00 29 Mechanical Ventilator 90 12/10/19 00:56 118 27 100 12/10/19 00:00 120 28 102/52 (69) 92 12/10/19 00:00 119 12/10/19 00:00 28 Mechanical Ventilator 90 12/10/19 00:00 90 12/10/19 00:00 120 12/10/19 00:00 Mechanical Ventilator 12/09/19 23:30 120 28 100 12/09/19 23:26 30 Mechanical Ventilator 100 12/09/19 23:00 121 30 113/57 (75) 91 12/09/19 23:00 30 Mechanical Ventilator 100 12/09/19 22:30 121 29 114/59 (77) 91 12/09/19 22:00 121 27 111/58 (75) 92 12/09/19 22:00 27 Mechanical Ventilator 100 12/09/19 21:30 121 29 113/59 (77) 93 12/09/19 21:00 29 Mechanical Ventilator 100 12/09/19 21:00 119 29 107/55 (72) 93 12/09/19 20:45 120 28 113/57 (75) 94 12/09/19 20:41 112 30 100 12/09/19 20:30 119 28 114/58 (76) 94 12/09/19 20:15 117 24 103/59 (74) 90 12/09/19 20:05 26 Mechanical Ventilator 100 12/09/19 20:00 Mechanical Ventilator 12/09/19 20:00 100.0 119 26 116/51 (72) 94 12/09/19 20:00 26 Mechanical Ventilator 100 12/09/19 20:00 119 12/09/19 19:55 26 Mechanical Ventilator 100 12/09/19 19:50 26 Mechanical Ventilator 90 12/09/19 19:45 24 Mechanical Ventilator 90 12/09/19 19:45 118 24 116/51 (72) 97 12/09/19 19:30 117 28 110/52 (71) 95 12/09/19 19:30 26 Mechanical Ventilator 90 12/09/19 19:30 114 31 100 12/09/19 19:15 117 24 113/52 (72) 96 12/09/19 19:00 117 26 118/54 (75) 97 12/09/19 19:00 26 Mechanical Ventilator 90 12/09/19 18:45 118 22 119/53 (75) 97 12/09/19 18:30 118 20 121/63 (82) 98 12/09/19 18:15 118 19 122/58 (79) 99 12/09/19 18:00 24 Mechanical Ventilator 90 12/09/19 18:00 119 24 126/55 (78) 97 12/09/19 17:45 119 25 130/58 (82) 98 12/09/19 17:30 120 23 126/58 (80) 99 12/09/19 17:15 118 24 119/56 (77) 91 12/09/19 17:00 90 12/09/19 17:00 25 Mechanical Ventilator 90 12/09/19 17:00 Mechanical Ventilator 12/09/19 17:00 119 25 124/82 (96) 100 12/09/19 16:45 123 27 140/67 (91) 100 12/09/19 16:30 119 26 135/68 (90) 96 12/09/19 16:15 119 22 131/71 (91) 96 12/09/19 16:00 118 12/09/19 16:00 Mechanical Ventilator 12/09/19 16:00 142/74 12/09/19 16:00 23 Mechanical Ventilator 70 12/09/19 16:00 70 12/09/19 16:00 97.4 114 23 142/74 (96) 97 12/09/19 15:45 111 23 143/72 (95) 98 12/09/19 15:30 111 23 129/69 (89) 98 12/09/19 15:15 112 23 131/68 (89) 98 12/09/19 15:00 112 22 132/65 (87) 98 12/09/19 15:00 143/72 12/09/19 15:00 23 Mechanical Ventilator 70 12/09/19 14:45 111 23 143/73 (96) 97 12/09/19 14:45 70 12/09/19 14:43 110 28 70 12/09/19 14:30 110 25 142/72 (95) 100 12/09/19 14:15 108 25 136/73 (94) 100 12/09/19 14:00 107 24 151/73 (99) 100 12/09/19 14:00 90 12/09/19 14:00 151/73 12/09/19 14:00 24 Mechanical Ventilator 90 12/09/19 13:45 107 25 139/69 (92) 100 12/09/19 13:30 24 Mechanical Ventilator 90 12/09/19 13:30 106 25 144/69 (94) 100 12/09/19 13:15 105 23 141/72 (95) 100 12/09/19 13:00 107 24 138/69 (92) 100 12/09/19 13:00 138/69 12/09/19 13:00 24 Mechanical Ventilator 100 12/09/19 12:30 104 24 138/70 (92) 100 12/09/19 12:00 Mechanical Ventilator 12/09/19 12:00 107 4/27/20 12:00 100 12/09/19 12:00 98.4 105 26 141/71 (94) 100 12/09/19 12:00 141/71 12/09/19 12:00 26 Mechanical Ventilator 100 12/09/19 11:51 105 26 100 Intake and Output 12/09/19 12/10/19 19:00 07:00 Intake Total 642.91 ml 360 ml Output Total 160 ml 210 ml Balance 482.91 ml 150 ml Free Water 10 ml IV Total 327.91 ml 325 ml Tube Feeding 305 ml 35 ml Output Urine Total 40 ml 10 ml Stool Total 120 ml 200 ml General Appearance: no acute distress, other - on vent and pressors HEENT: no JVD, other - oral - intubated Respiratory/Chest: chest wall non-tender, lungs clear Cardiovascular: normal peripheral pulses, normal rate Abdomen: normal bowel sounds, soft, non tender, no organomegaly Genitourinary: other - + barnes - urine slt cloudy Extremities: no cyanosis Skin: no rash Neurologic/Psychiatric: motor weakness, other - lethargic Lymphatic: no neck adenopathy Musculoskeletal: no effusion Laboratory Tests 12/10/19 04:56: White Blood Count 23.7*H, Red Blood Count 3.57L, Hemoglobin 10.9L, Hematocrit 32.5L, Mean Corpuscular Volume 91, Mean Corpuscular Hemoglobin 30.6, Mean Corpuscular Hemoglobin Concent 33.6, Red Cell Distribution Width 12.7, Platelet Count 128L, Mean Platelet Volume 7.8, Neutrophils (%) (Auto) , Lymphocytes (%) ( Auto) , Monocytes (%) (Auto) , Eosinophils (%) (Auto) , Basophils (%) (Auto) , Differential Total Cells Counted 100, Neutrophils % (Manual) 90H, Lymphocytes % (Manual) 3L, Monocytes % (Manual) 6, Eosinophils % (Manual) 1, Basophils % ( Manual) 0, Band Neutrophils 0, Nucleated Red Blood Cells 1, Platelet Estimate DecreasedL, Platelet Morphology Normal, Hypochromasia 1+, Anisocytosis 1+, Sodium Level 149H, Potassium Level 3.6, Chloride Level 105, Carbon Dioxide Level 26, Anion Gap 18H, Blood Urea Nitrogen 80H, Creatinine 7.9H, Estimat Glomerular Filtration Rate 7.1, Glucose Level 103, Calcium Level 7.4L, Total Bilirubin 2.2H, Direct Bilirubin 1.8H, Aspartate Amino Transf (AST/SGOT) 254H, Alanine Aminotransferase (ALT/SGPT) 392H, Alkaline Phosphatase 143H, Total Protein 5.2L, Albumin 2.2L, Globulin 3.0, Albumin/Globulin Ratio 0.7L, Random Vancomycin Level 24.6 Current Medications Medications (Trade) Dose Ordered Sig/Vicki Route PRN Reason Start Time Stop Time Status Last Admin Dose Admin Acetaminophen (Tylenol) 650 mg Q4H PRN NG Temp >100.5 12/06/19 14:15 01/05/20 14:14 12/10/19 04:34 Acetaminophen (Tylenol) 650 mg Q4H PRN RECTAL Mild Pain (Pain Scale 1-3) 12/04/19 11:45 01/03/20 11:44 12/06/19 19:17 Chlorhexidine Gluconate (Arely-Hex 2%) 1 applic DAILY@2000 TOPIC 12/05/19 20:00 03/04/20 19:59 12/09/19 19:45 Dextrose (Dextrose 50%) 25 ml Q30M PRN IV Hypoglycemia 11/29/19 14:15 02/27/20 14:14 Dextrose (Dextrose 50%) 50 ml Q30M PRN IV Hypoglycemia 11/29/19 14:15 02/27/20 14:14 Fentanyl Citrate 2500 mcg/Sodium Chloride 250 ml @ 0 mls/hr Q24H IVPB 12/06/19 02:00 12/13/19 01:59 12/10/19 11:17 Hydralazine HCl (Apresoline) 10 mg Q4H PRN IV For High Blood Pressure 11/29/19 15:15 02/27/20 15:14 Norepinephrine Bitartrate 16 mg/ Dextrose 566 ml @ 0 mls/hr Q24H IV 12/06/19 09:00 01/05/20 08:59 12/09/19 08:00 Ondansetron HCl (Zofran) 4 mg Q6H PRN IVP Nausea & Vomiting 11/29/19 14:15 12/29/19 14:14 Pantoprazole (Protonix) 40 mg DAILY IVP 11/30/19 12:15 12/30/19 12:14 12/10/19 08:46 Piperacillin Sod/ Tazobactam Sod 2.25 gm/Dextrose 55 ml @ 110 mls/hr Q8H IV 12/10/19 10:00 12/17/19 09:59 12/10/19 11:16 Vancomycin HCl (Vanco rx to dose) 1 ea DAILY PRN MISC Per rx protocol 12/08/19 19:30 01/07/20 19:29 Vasopressin 100 units/Sodium Chloride 100 ml @ 0 mls/hr Q24H IV 12/06/19 09:00 01/05/20 08:59 12/06/19 09:03 Sushil Cortes MD Dec 10, 2019 11:47
--- NOTE | 2019-12-10 12:00 | NUR ---
NURSE NOTES: Patient remains in prone position. Patient remains sedated with RASS score -2 at this time. Fentanyl drip at 200mcg/hr. Vital signs stable. Blood pressure 111/62 on 2mcg/min Levophed. Patient remains orally intubated with ET tube 8cm and 24cm at the lip line. Ventilator setting AC 20, tidal volume 500, FiO2 100%, and PEEP 7. Patient tolerating with no sign of distress. RR 25 and SpO2 99%. Nasal gastric tube patent, 65cm at the lip line, asymptomatic, and clamped at this time. Rectal tube patent and draining dark green thin stool at this time. Joe patent, asymptomatic, and draining small amount of dark marge urine. Right femoral jia catheter with pigtail patent, asymptomatic, and running fentanyl at this time. port steward reported that she will be coming to perform dialysis in the afternoon. Will follow up. Left wrist 20 gauge peripheral IV remains patent, asymptomatic, and saline locked at this time. Wound dressing dry and intact. Patient bed in low position with bed alarm on and call light in reach at this time. Will continue to monitor. Oral care performed.
--- NOTE | 2019-12-10 12:10 | Nephrology Progress Note ---
Assessment/Plan Plan #ALBARO- concerns for developing ischemic ATN in the setting of sepsis- r/o vanco toxicity - r/o COVID nephropathy - now with likely ATN #Hyperkalemia due to renal insuffiency - exacerbated by acidosis #COID sepsis #COVID pneumonia #hypoxemic respiratary failure #HTN- now in shock #mediastinal PTX - next HD today - order placed- UF as tolerated - monitor I&Os - daily weights - monitor vinicio tirsoley - proned - GOALS of care discussion - continue pressor support to maintain MAP > 65- continue vaso and levo - continue fentanyl dip - abx per ID- on vanco and zosyn - vent management per pulm -Abd Xray shows mediastinal PTX - too high risk for thorocotomy Subjective ROS Limited/Unobtainable: Yes Subjective plan for HD today remains oliguric on Fio2 100 WBC downtrending remains on levo and vaso drips Abd Xray shows mediastinal PTX On fentanyl drip Objective Objective Last 24 Hour Vital Signs Date Time Temp Pulse Resp B/P (MAP) Pulse Ox O2 Delivery O2 Flow Rate FiO2 12/10/19 11:28 95 24 100 12/10/19 11:17 25 Mechanical Ventilator 100 12/10/19 11:00 96 19 110/55 (73) 99 12/10/19 10:30 95 25 105/57 (73) 98 12/10/19 10:00 95 25 110/57 (74) 95 12/10/19 09:45 78 25 108/56 (73) 95 12/10/19 09:30 96 25 102/54 (70) 96 12/10/19 09:30 99 21 100 12/10/19 09:15 98 25 98/55 (69) 98 12/10/19 09:00 97 25 99/56 (70) 98 12/10/19 09:00 98/55 12/10/19 09:00 25 Mechanical Ventilator 100 12/10/19 08:46 100/58 12/10/19 08:00 Mechanical Ventilator 12/10/19 08:00 25 Mechanical Ventilator 100 12/10/19 08:00 100 12/10/19 08:00 97.9 100 25 100/55 (70) 97 12/10/19 07:00 28 Mechanical Ventilator 100 12/10/19 07:00 97.9 103 21 93/53 (66) 98 12/10/19 06:59 104 23 100 12/10/19 06:51 99.3 12/10/19 06:00 99.3 108 26 123/54 (77) 99 12/10/19 06:00 123/54 12/10/19 06:00 27 Mechanical Ventilator 90 12/10/19 05:28 115 31 100 12/10/19 05:00 118 26 116/57 (76) 93 12/10/19 05:00 116/54 12/10/19 05:00 28 Mechanical Ventilator 90 12/10/19 04:00 124 28 90/58 (69) 85 12/10/19 04:00 90 12/10/19 04:00 Mechanical Ventilator 12/10/19 04:00 90/58 12/10/19 04:00 30 Mechanical Ventilator 90 12/10/19 04:00 128 12/10/19 03:30 118 30 100 12/10/19 03:00 118 28 109/56 (73) 94 12/10/19 03:00 28 Mechanical Ventilator 90 12/10/19 02:00 27 Mechanical Ventilator 90 12/10/19 02:00 120 29 107/56 (73) 94 12/10/19 01:00 102.3 120 27 103/55 (71) 93 12/10/19 01:00 29 Mechanical Ventilator 90 12/10/19 00:56 118 27 100 12/10/19 00:00 120 28 102/52 (69) 92 12/10/19 00:00 119 12/10/19 00:00 28 Mechanical Ventilator 90 12/10/19 00:00 90 12/10/19 00:00 120 12/10/19 00:00 Mechanical Ventilator 12/09/19 23:30 120 28 100 12/09/19 23:26 30 Mechanical Ventilator 100 12/09/19 23:00 121 30 113/57 (75) 91 12/09/19 23:00 30 Mechanical Ventilator 100 12/09/19 22:30 121 29 114/59 (77) 91 12/09/19 22:00 121 27 111/58 (75) 92 12/09/19 22:00 27 Mechanical Ventilator 100 12/09/19 21:30 121 29 113/59 (77) 93 12/09/19 21:00 29 Mechanical Ventilator 100 12/09/19 21:00 119 29 107/55 (72) 93 12/09/19 20:45 120 28 113/57 (75) 94 12/09/19 20:41 112 30 100 12/09/19 20:30 119 28 114/58 (76) 94 12/09/19 20:15 117 24 103/59 (74) 90 12/09/19 20:05 26 Mechanical Ventilator 100 12/09/19 20:00 Mechanical Ventilator 12/09/19 20:00 100.0 119 26 116/51 (72) 94 12/09/19 20:00 26 Mechanical Ventilator 100 12/09/19 20:00 119 12/09/19 19:55 26 Mechanical Ventilator 100 12/09/19 19:50 26 Mechanical Ventilator 90 12/09/19 19:45 24 Mechanical Ventilator 90 12/09/19 19:45 118 24 116/51 (72) 97 12/09/19 19:30 117 28 110/52 (71) 95 12/09/19 19:30 26 Mechanical Ventilator 90 12/09/19 19:30 114 31 100 12/09/19 19:15 117 24 113/52 (72) 96 12/09/19 19:00 117 26 118/54 (75) 97 12/09/19 19:00 26 Mechanical Ventilator 90 12/09/19 18:45 118 22 119/53 (75) 97 12/09/19 18:30 118 20 121/63 (82) 98 12/09/19 18:15 118 19 122/58 (79) 99 12/09/19 18:00 24 Mechanical Ventilator 90 12/09/19 18:00 119 24 126/55 (78) 97 12/09/19 17:45 119 25 130/58 (82) 98 12/09/19 17:30 120 23 126/58 (80) 99 12/09/19 17:15 118 24 119/56 (77) 91 12/09/19 17:00 90 12/09/19 17:00 25 Mechanical Ventilator 90 12/09/19 17:00 Mechanical Ventilator 12/09/19 17:00 119 25 124/82 (96) 100 12/09/19 16:45 123 27 140/67 (91) 100 12/09/19 16:30 119 26 135/68 (90) 96 12/09/19 16:15 119 22 131/71 (91) 96 12/09/19 16:00 118 12/09/19 16:00 Mechanical Ventilator 12/09/19 16:00 142/74 12/09/19 16:00 23 Mechanical Ventilator 70 12/09/19 16:00 70 12/09/19 16:00 97.4 114 23 142/74 (96) 97 12/09/19 15:45 111 23 143/72 (95) 98 12/09/19 15:30 111 23 129/69 (89) 98 12/09/19 15:15 112 23 131/68 (89) 98 12/09/19 15:00 112 22 132/65 (87) 98 12/09/19 15:00 143/72 12/09/19 15:00 23 Mechanical Ventilator 70 12/09/19 14:45 111 23 143/73 (96) 97 12/09/19 14:45 70 12/09/19 14:43 110 28 70 12/09/19 14:30 110 25 142/72 (95) 100 12/09/19 14:15 108 25 136/73 (94) 100 12/09/19 14:00 107 24 151/73 (99) 100 12/09/19 14:00 90 12/09/19 14:00 151/73 12/09/19 14:00 24 Mechanical Ventilator 90 12/09/19 13:45 107 25 139/69 (92) 100 12/09/19 13:30 24 Mechanical Ventilator 90 12/09/19 13:30 106 25 144/69 (94) 100 12/09/19 13:15 105 23 141/72 (95) 100 12/09/19 13:00 107 24 138/69 (92) 100 12/09/19 13:00 138/69 12/09/19 13:00 24 Mechanical Ventilator 100 12/09/19 12:30 104 24 138/70 (92) 100 Intake and Output 12/09/19 12/10/19 19:00 07:00 Intake Total 642.91 ml 360 ml Output Total 160 ml 210 ml Balance 482.91 ml 150 ml Free Water 10 ml IV Total 327.91 ml 325 ml Tube Feeding 305 ml 35 ml Output Urine Total 40 ml 10 ml Stool Total 120 ml 200 ml Laboratory Tests 12/10/19 04:56: White Blood Count 23.7*H, Red Blood Count 3.57L, Hemoglobin 10.9L, Hematocrit 32.5L, Mean Corpuscular Volume 91, Mean Corpuscular Hemoglobin 30.6, Mean Corpuscular Hemoglobin Concent 33.6, Red Cell Distribution Width 12.7, Platelet Count 128L, Mean Platelet Volume 7.8, Neutrophils (%) (Auto) , Lymphocytes (%) ( Auto) , Monocytes (%) (Auto) , Eosinophils (%) (Auto) , Basophils (%) (Auto) , Differential Total Cells Counted 100, Neutrophils % (Manual) 90H, Lymphocytes % (Manual) 3L, Monocytes % (Manual) 6, Eosinophils % (Manual) 1, Basophils % ( Manual) 0, Band Neutrophils 0, Nucleated Red Blood Cells 1, Platelet Estimate DecreasedL, Platelet Morphology Normal, Hypochromasia 1+, Anisocytosis 1+, Sodium Level 149H, Potassium Level 3.6, Chloride Level 105, Carbon Dioxide Level 26, Anion Gap 18H, Blood Urea Nitrogen 80H, Creatinine 7.9H, Estimat Glomerular Filtration Rate 7.1, Glucose Level 103, Calcium Level 7.4L, Total Bilirubin 2.2H, Direct Bilirubin 1.8H, Aspartate Amino Transf (AST/SGOT) 254H, Alanine Aminotransferase (ALT/SGPT) 392H, Alkaline Phosphatase 143H, Total Protein 5.2L, Albumin 2.2L, Globulin 3.0, Albumin/Globulin Ratio 0.7L, Random Vancomycin Level 24.6 Height (Feet): 5 Height (Inches): 6.00 Weight (Pounds): 178 Objective General Appearance: other - intubated- proned Lines, tubes and drains: central line HEENT: normocephalic, atraumatic Respiratory/Chest: rhonchi - bilaterally Cardiovascular/Chest: other - tachycardic Extremities: pitting Dorian Soriano M.D. Dec 10, 2019 12:10
--- NOTE | 2019-12-10 12:13 | Cardiac Electrophysiology PN ---
Assessment/Plan Assessment/Plan 1. Atrial fib with RVR 170 right before intubation on 12/04/19. Converted to Sinus tach after intubation. Troponin 0.77. No further atrial fib 2. Sinus Tachycardia due to respiratory failure and COVID-19 pneumonia. On IV antibiotic per ID. Echocardiogram after Covid negative. Completed hydroxychloroquine. 3. Septic shock. On Levophed 4 Mcg. 4. Respiratory failure, on the Vent by Dr. Cortes.100% Fio2 PEEP 10 and is proned 5. Acute renal failure. HD per Dr. Sanchez via RFV [place] 6. Full code DW RN Subjective Subjective Intubated in ICU on 100% Fio2 and PEEP 10 on Levo 4 mcg and is proned now. Had Atrial fib with RVR 160s on 12/04/19 but no recurrence. K today 5.5. Scheduled for HD today Objective Last 24 Hour Vital Signs Date Time Temp Pulse Resp B/P (MAP) Pulse Ox O2 Delivery O2 Flow Rate FiO2 12/10/19 11:28 95 24 100 12/10/19 11:17 25 Mechanical Ventilator 100 12/10/19 11:00 96 19 110/55 (73) 99 12/10/19 10:30 95 25 105/57 (73) 98 12/10/19 10:00 95 25 110/57 (74) 95 12/10/19 09:45 78 25 108/56 (73) 95 12/10/19 09:30 96 25 102/54 (70) 96 12/10/19 09:30 99 21 100 12/10/19 09:15 98 25 98/55 (69) 98 12/10/19 09:00 97 25 99/56 (70) 98 12/10/19 09:00 98/55 12/10/19 09:00 25 Mechanical Ventilator 100 12/10/19 08:46 100/58 12/10/19 08:00 Mechanical Ventilator 12/10/19 08:00 25 Mechanical Ventilator 100 12/10/19 08:00 100 12/10/19 08:00 97.9 100 25 100/55 (70) 97 12/10/19 07:00 28 Mechanical Ventilator 100 12/10/19 07:00 97.9 103 21 93/53 (66) 98 12/10/19 06:59 104 23 100 12/10/19 06:51 99.3 12/10/19 06:00 99.3 108 26 123/54 (77) 99 12/10/19 06:00 123/54 12/10/19 06:00 27 Mechanical Ventilator 90 12/10/19 05:28 115 31 100 12/10/19 05:00 118 26 116/57 (76) 93 12/10/19 05:00 116/54 12/10/19 05:00 28 Mechanical Ventilator 90 12/10/19 04:00 124 28 90/58 (69) 85 12/10/19 04:00 90 12/10/19 04:00 Mechanical Ventilator 12/10/19 04:00 90/58 12/10/19 04:00 30 Mechanical Ventilator 90 12/10/19 04:00 128 12/10/19 03:30 118 30 100 12/10/19 03:00 118 28 109/56 (73) 94 12/10/19 03:00 28 Mechanical Ventilator 90 12/10/19 02:00 27 Mechanical Ventilator 90 12/10/19 02:00 120 29 107/56 (73) 94 12/10/19 01:00 102.3 120 27 103/55 (71) 93 12/10/19 01:00 29 Mechanical Ventilator 90 12/10/19 00:56 118 27 100 12/10/19 00:00 120 28 102/52 (69) 92 12/10/19 00:00 119 12/10/19 00:00 28 Mechanical Ventilator 90 12/10/19 00:00 90 12/10/19 00:00 120 12/10/19 00:00 Mechanical Ventilator 12/09/19 23:30 120 28 100 12/09/19 23:26 30 Mechanical Ventilator 100 12/09/19 23:00 121 30 113/57 (75) 91 12/09/19 23:00 30 Mechanical Ventilator 100 12/09/19 22:30 121 29 114/59 (77) 91 12/09/19 22:00 121 27 111/58 (75) 92 12/09/19 22:00 27 Mechanical Ventilator 100 12/09/19 21:30 121 29 113/59 (77) 93 12/09/19 21:00 29 Mechanical Ventilator 100 12/09/19 21:00 119 29 107/55 (72) 93 12/09/19 20:45 120 28 113/57 (75) 94 12/09/19 20:41 112 30 100 12/09/19 20:30 119 28 114/58 (76) 94 12/09/19 20:15 117 24 103/59 (74) 90 12/09/19 20:05 26 Mechanical Ventilator 100 12/09/19 20:00 Mechanical Ventilator 12/09/19 20:00 100.0 119 26 116/51 (72) 94 12/09/19 20:00 26 Mechanical Ventilator 100 12/09/19 20:00 119 12/09/19 19:55 26 Mechanical Ventilator 100 12/09/19 19:50 26 Mechanical Ventilator 90 12/09/19 19:45 24 Mechanical Ventilator 90 12/09/19 19:45 118 24 116/51 (72) 97 12/09/19 19:30 117 28 110/52 (71) 95 12/09/19 19:30 26 Mechanical Ventilator 90 12/09/19 19:30 114 31 100 12/09/19 19:15 117 24 113/52 (72) 96 12/09/19 19:00 117 26 118/54 (75) 97 12/09/19 19:00 26 Mechanical Ventilator 90 12/09/19 18:45 118 22 119/53 (75) 97 12/09/19 18:30 118 20 121/63 (82) 98 12/09/19 18:15 118 19 122/58 (79) 99 12/09/19 18:00 24 Mechanical Ventilator 90 12/09/19 18:00 119 24 126/55 (78) 97 12/09/19 17:45 119 25 130/58 (82) 98 12/09/19 17:30 120 23 126/58 (80) 99 12/09/19 17:15 118 24 119/56 (77) 91 12/09/19 17:00 90 12/09/19 17:00 25 Mechanical Ventilator 90 12/09/19 17:00 Mechanical Ventilator 12/09/19 17:00 119 25 124/82 (96) 100 12/09/19 16:45 123 27 140/67 (91) 100 12/09/19 16:30 119 26 135/68 (90) 96 12/09/19 16:15 119 22 131/71 (91) 96 12/09/19 16:00 118 12/09/19 16:00 Mechanical Ventilator 12/09/19 16:00 142/74 12/09/19 16:00 23 Mechanical Ventilator 70 12/09/19 16:00 70 12/09/19 16:00 97.4 114 23 142/74 (96) 97 12/09/19 15:45 111 23 143/72 (95) 98 12/09/19 15:30 111 23 129/69 (89) 98 12/09/19 15:15 112 23 131/68 (89) 98 12/09/19 15:00 112 22 132/65 (87) 98 12/09/19 15:00 143/72 12/09/19 15:00 23 Mechanical Ventilator 70 12/09/19 14:45 111 23 143/73 (96) 97 12/09/19 14:45 70 12/09/19 14:43 110 28 70 12/09/19 14:30 110 25 142/72 (95) 100 12/09/19 14:15 108 25 136/73 (94) 100 12/09/19 14:00 107 24 151/73 (99) 100 12/09/19 14:00 90 12/09/19 14:00 151/73 12/09/19 14:00 24 Mechanical Ventilator 90 12/09/19 13:45 107 25 139/69 (92) 100 12/09/19 13:30 24 Mechanical Ventilator 90 12/09/19 13:30 106 25 144/69 (94) 100 12/09/19 13:15 105 23 141/72 (95) 100 12/09/19 13:00 107 24 138/69 (92) 100 12/09/19 13:00 138/69 12/09/19 13:00 24 Mechanical Ventilator 100 12/09/19 12:30 104 24 138/70 (92) 100 Intake and Output 12/09/19 12/10/19 19:00 07:00 Intake Total 642.91 ml 360 ml Output Total 160 ml 210 ml Balance 482.91 ml 150 ml Free Water 10 ml IV Total 327.91 ml 325 ml Tube Feeding 305 ml 35 ml Output Urine Total 40 ml 10 ml Stool Total 120 ml 200 ml Laboratory Tests Test 12/10/19 04:56 White Blood Count 23.7 K/UL (4.8-10.8) *H Red Blood Count 3.57 M/UL (4.70-6.10) L Hemoglobin 10.9 G/DL (14.2-18.0) L Hematocrit 32.5 % (42.0-52.0) L Mean Corpuscular Volume 91 FL (80-99) Mean Corpuscular Hemoglobin 30.6 PG (27.0-31.0) Mean Corpuscular Hemoglobin Concent 33.6 G/DL (32.0-36.0) Red Cell Distribution Width 12.7 % (11.6-14.8) Platelet Count 128 K/UL (150-450) L Mean Platelet Volume 7.8 FL (6.5-10.1) Neutrophils (%) (Auto) % (45.0-75.0) Lymphocytes (%) (Auto) % (20.0-45.0) Monocytes (%) (Auto) % (1.0-10.0) Eosinophils (%) (Auto) % (0.0-3.0) Basophils (%) (Auto) % (0.0-2.0) Differential Total Cells Counted 100 Neutrophils % (Manual) 90 % (45-75) H Lymphocytes % (Manual) 3 % (20-45) L Monocytes % (Manual) 6 % (1-10) Eosinophils % (Manual) 1 % (0-3) Basophils % (Manual) 0 % (0-2) Band Neutrophils 0 % (0-8) Nucleated Red Blood Cells 1 /100 WBC Platelet Estimate Decreased L Platelet Morphology Normal Hypochromasia 1+ Anisocytosis 1+ Sodium Level 149 MMOL/L (136-145) H Potassium Level 3.6 MMOL/L (3.5-5.1) Chloride Level 105 MMOL/L (98-107) Carbon Dioxide Level 26 MMOL/L (21-32) Anion Gap 18 mmol/L (5-15) H Blood Urea Nitrogen 80 mg/dL (7-18) H Creatinine 7.9 MG/DL (0.55-1.30) H Estimat Glomerular Filtration Rate 7.1 mL/min (>60) Glucose Level 103 MG/DL (74-106) Calcium Level 7.4 MG/DL (8.5-10.1) L Total Bilirubin 2.2 MG/DL (0.2-1.0) H Direct Bilirubin 1.8 MG/DL (0.0-0.3) H Aspartate Amino Transf (AST/SGOT) 254 U/L (15-37) H Alanine Aminotransferase (ALT/SGPT) 392 U/L (12-78) H Alkaline Phosphatase 143 U/L (46-116) H Total Protein 5.2 G/DL (6.4-8.2) L Albumin 2.2 G/DL (3.4-5.0) L Globulin 3.0 g/dL Albumin/Globulin Ratio 0.7 (1.0-2.7) L Random Vancomycin Level 24.6 ug/mL Objective HEAD AND NECK: Orally intubated No JVD LUNGS: Decreased breath sounds. Coarse rhonchi. CARDIOVASCULAR: Tachycardic S1 and S2 with no gallop. ABDOMEN: Soft. EXTREMITIES: 1 plus pitting edema.RFV [place] in place Raul Appiah MD Dec 10, 2019 12:13
--- NOTE | 2019-12-10 12:29 | Urology Progress Note ---
Assessment/Plan Status: unchanged Assessment/Plan: 1. Phimosis. 2. Retention. 3. Hematuria. 4. Pyuria. 5. Proteinuria. 6. Acute kidney injury. 7. Meatal stenosis. monitor clinically maintain barnes, placed 12/04 hand irrigate PRN monitor urine output and renal fxn consider renal imaging abx as ordered HD Subjective Allergies: Coded Allergies: No Known Allergies (Unverified , 11/29/19) Subjective remains on vent, still with minimal urine output, HD initiated Objective Last 24 Hour Vital Signs Date Time Temp Pulse Resp B/P (MAP) Pulse Ox O2 Delivery O2 Flow Rate FiO2 12/10/19 11:28 95 24 100 12/10/19 11:17 25 Mechanical Ventilator 100 12/10/19 11:00 96 19 110/55 (73) 99 12/10/19 10:30 95 25 105/57 (73) 98 12/10/19 10:00 95 25 110/57 (74) 95 12/10/19 09:45 78 25 108/56 (73) 95 12/10/19 09:30 96 25 102/54 (70) 96 12/10/19 09:30 99 21 100 12/10/19 09:15 98 25 98/55 (69) 98 12/10/19 09:00 97 25 99/56 (70) 98 12/10/19 09:00 98/55 12/10/19 09:00 25 Mechanical Ventilator 100 12/10/19 08:46 100/58 12/10/19 08:00 Mechanical Ventilator 12/10/19 08:00 25 Mechanical Ventilator 100 12/10/19 08:00 100 12/10/19 08:00 97.9 100 25 100/55 (70) 97 12/10/19 07:00 28 Mechanical Ventilator 100 12/10/19 07:00 97.9 103 21 93/53 (66) 98 12/10/19 06:59 104 23 100 12/10/19 06:51 99.3 12/10/19 06:00 99.3 108 26 123/54 (77) 99 12/10/19 06:00 123/54 12/10/19 06:00 27 Mechanical Ventilator 90 12/10/19 05:28 115 31 100 12/10/19 05:00 118 26 116/57 (76) 93 12/10/19 05:00 116/54 4/28/20 05:00 28 Mechanical Ventilator 90 12/10/19 04:00 124 28 90/58 (69) 85 12/10/19 04:00 90 12/10/19 04:00 Mechanical Ventilator 12/10/19 04:00 90/58 12/10/19 04:00 30 Mechanical Ventilator 90 12/10/19 04:00 128 12/10/19 03:30 118 30 100 12/10/19 03:00 118 28 109/56 (73) 94 12/10/19 03:00 28 Mechanical Ventilator 90 12/10/19 02:00 27 Mechanical Ventilator 90 12/10/19 02:00 120 29 107/56 (73) 94 12/10/19 01:00 102.3 120 27 103/55 (71) 93 12/10/19 01:00 29 Mechanical Ventilator 90 12/10/19 00:56 118 27 100 12/10/19 00:00 120 28 102/52 (69) 92 12/10/19 00:00 119 12/10/19 00:00 28 Mechanical Ventilator 90 12/10/19 00:00 90 12/10/19 00:00 120 12/10/19 00:00 Mechanical Ventilator 12/09/19 23:30 120 28 100 12/09/19 23:26 30 Mechanical Ventilator 100 12/09/19 23:00 121 30 113/57 (75) 91 12/09/19 23:00 30 Mechanical Ventilator 100 12/09/19 22:30 121 29 114/59 (77) 91 12/09/19 22:00 121 27 111/58 (75) 92 12/09/19 22:00 27 Mechanical Ventilator 100 12/09/19 21:30 121 29 113/59 (77) 93 12/09/19 21:00 29 Mechanical Ventilator 100 12/09/19 21:00 119 29 107/55 (72) 93 12/09/19 20:45 120 28 113/57 (75) 94 12/09/19 20:41 112 30 100 12/09/19 20:30 119 28 114/58 (76) 94 12/09/19 20:15 117 24 103/59 (74) 90 12/09/19 20:05 26 Mechanical Ventilator 100 12/09/19 20:00 Mechanical Ventilator 12/09/19 20:00 100.0 119 26 116/51 (72) 94 12/09/19 20:00 26 Mechanical Ventilator 100 12/09/19 20:00 119 12/09/19 19:55 26 Mechanical Ventilator 100 12/09/19 19:50 26 Mechanical Ventilator 90 12/09/19 19:45 24 Mechanical Ventilator 90 12/09/19 19:45 118 24 116/51 (72) 97 12/09/19 19:30 117 28 110/52 (71) 95 12/09/19 19:30 26 Mechanical Ventilator 90 12/09/19 19:30 114 31 100 12/09/19 19:15 117 24 113/52 (72) 96 12/09/19 19:00 117 26 118/54 (75) 97 12/09/19 19:00 26 Mechanical Ventilator 90 12/09/19 18:45 118 22 119/53 (75) 97 12/09/19 18:30 118 20 121/63 (82) 98 12/09/19 18:15 118 19 122/58 (79) 99 12/09/19 18:00 24 Mechanical Ventilator 90 12/09/19 18:00 119 24 126/55 (78) 97 12/09/19 17:45 119 25 130/58 (82) 98 12/09/19 17:30 120 23 126/58 (80) 99 12/09/19 17:15 118 24 119/56 (77) 91 12/09/19 17:00 90 12/09/19 17:00 25 Mechanical Ventilator 90 12/09/19 17:00 Mechanical Ventilator 12/09/19 17:00 119 25 124/82 (96) 100 12/09/19 16:45 123 27 140/67 (91) 100 12/09/19 16:30 119 26 135/68 (90) 96 12/09/19 16:15 119 22 131/71 (91) 96 12/09/19 16:00 118 12/09/19 16:00 Mechanical Ventilator 12/09/19 16:00 142/74 12/09/19 16:00 23 Mechanical Ventilator 70 12/09/19 16:00 70 12/09/19 16:00 97.4 114 23 142/74 (96) 97 12/09/19 15:45 111 23 143/72 (95) 98 12/09/19 15:30 111 23 129/69 (89) 98 12/09/19 15:15 112 23 131/68 (89) 98 12/09/19 15:00 112 22 132/65 (87) 98 12/09/19 15:00 143/72 12/09/19 15:00 23 Mechanical Ventilator 70 12/09/19 14:45 111 23 143/73 (96) 97 12/09/19 14:45 70 12/09/19 14:43 110 28 70 12/09/19 14:30 110 25 142/72 (95) 100 12/09/19 14:15 108 25 136/73 (94) 100 12/09/19 14:00 107 24 151/73 (99) 100 12/09/19 14:00 90 12/09/19 14:00 151/73 12/09/19 14:00 24 Mechanical Ventilator 90 12/09/19 13:45 107 25 139/69 (92) 100 12/09/19 13:30 24 Mechanical Ventilator 90 12/09/19 13:30 106 25 144/69 (94) 100 12/09/19 13:15 105 23 141/72 (95) 100 12/09/19 13:00 107 24 138/69 (92) 100 12/09/19 13:00 138/69 12/09/19 13:00 24 Mechanical Ventilator 100 12/09/19 12:30 104 24 138/70 (92) 100 Intake and Output 12/09/19 12/10/19 19:00 07:00 Intake Total 642.91 ml 360 ml Output Total 160 ml 210 ml Balance 482.91 ml 150 ml Free Water 10 ml IV Total 327.91 ml 325 ml Tube Feeding 305 ml 35 ml Output Urine Total 40 ml 10 ml Stool Total 120 ml 200 ml Microbiology Date/Time Source Procedure Growth Status 12/04/19 12:46 Blood Blood Culture - Final NO GROWTH AFTER 5 DAYS Complete 12/04/19 23:00 Sputum Gram Stain - Final Complete 12/04/19 23:00 Sputum Sputum Culture - Final NORMAL UPPER RESPIRATORY ALISIA PRESENT Complete 12/05/19 02:24 Urine,Clean Catch Urine Culture - Final NO GROWTH AFTER 48 HOURS Complete Current Medications Medications (Trade) Dose Ordered Sig/Vicki Route PRN Reason Start Time Stop Time Status Last Admin Dose Admin Acetaminophen (Tylenol) 650 mg Q4H PRN NG Temp >100.5 12/06/19 14:15 01/05/20 14:14 12/10/19 04:34 Acetaminophen (Tylenol) 650 mg Q4H PRN RECTAL Mild Pain (Pain Scale 1-3) 12/04/19 11:45 01/03/20 11:44 12/06/19 19:17 Chlorhexidine Gluconate (Arely-Hex 2%) 1 applic DAILY@2000 TOPIC 12/05/19 20:00 03/04/20 19:59 12/09/19 19:45 Dextrose (Dextrose 50%) 25 ml Q30M PRN IV Hypoglycemia 11/29/19 14:15 02/27/20 14:14 Dextrose (Dextrose 50%) 50 ml Q30M PRN IV Hypoglycemia 11/29/19 14:15 02/27/20 14:14 Fentanyl Citrate 2500 mcg/Sodium Chloride 250 ml @ 0 mls/hr Q24H IVPB 12/06/19 02:00 12/13/19 01:59 12/10/19 11:17 Hydralazine HCl (Apresoline) 10 mg Q4H PRN IV For High Blood Pressure 11/29/19 15:15 02/27/20 15:14 Norepinephrine Bitartrate 16 mg/ Dextrose 566 ml @ 0 mls/hr Q24H IV 12/06/19 09:00 01/05/20 08:59 12/09/19 08:00 Ondansetron HCl (Zofran) 4 mg Q6H PRN IVP Nausea & Vomiting 11/29/19 14:15 12/29/19 14:14 Pantoprazole (Protonix) 40 mg DAILY IVP 11/30/19 12:15 12/30/19 12:14 12/10/19 08:46 Piperacillin Sod/ Tazobactam Sod 2.25 gm/Dextrose 55 ml @ 110 mls/hr Q8H IV 12/10/19 10:00 12/17/19 09:59 12/10/19 11:16 Vancomycin HCl (Vanco rx to dose) 1 ea DAILY PRN MISC Per rx protocol 12/08/19 19:30 01/07/20 19:29 Vasopressin 100 units/Sodium Chloride 100 ml @ 0 mls/hr Q24H IV 12/06/19 09:00 01/05/20 08:59 12/06/19 09:03 Laboratory Tests 12/10/19 04:56: White Blood Count 23.7*H, Red Blood Count 3.57L, Hemoglobin 10.9L, Hematocrit 32.5L, Mean Corpuscular Volume 91, Mean Corpuscular Hemoglobin 30.6, Mean Corpuscular Hemoglobin Concent 33.6, Red Cell Distribution Width 12.7, Platelet Count 128L, Mean Platelet Volume 7.8, Neutrophils (%) (Auto) , Lymphocytes (%) ( Auto) , Monocytes (%) (Auto) , Eosinophils (%) (Auto) , Basophils (%) (Auto) , Differential Total Cells Counted 100, Neutrophils % (Manual) 90H, Lymphocytes % (Manual) 3L, Monocytes % (Manual) 6, Eosinophils % (Manual) 1, Basophils % ( Manual) 0, Band Neutrophils 0, Nucleated Red Blood Cells 1, Platelet Estimate DecreasedL, Platelet Morphology Normal, Hypochromasia 1+, Anisocytosis 1+, Sodium Level 149H, Potassium Level 3.6, Chloride Level 105, Carbon Dioxide Level 26, Anion Gap 18H, Blood Urea Nitrogen 80H, Creatinine 7.9H, Estimat Glomerular Filtration Rate 7.1, Glucose Level 103, Calcium Level 7.4L, Total Bilirubin 2.2H, Direct Bilirubin 1.8H, Aspartate Amino Transf (AST/SGOT) 254H, Alanine Aminotransferase (ALT/SGPT) 392H, Alkaline Phosphatase 143H, Total Protein 5.2L, Albumin 2.2L, Globulin 3.0, Albumin/Globulin Ratio 0.7L, Random Vancomycin Level 24.6 Height (Feet): 5 Height (Inches): 6.00 Weight (Pounds): 178 Objective stable no bleeding at prepuce barnes indwelling, marge urine Kai Berger MD Dec 10, 2019 12:29
--- NOTE | 2019-12-10 14:00 | NUR ---
NURSE NOTES: Vital signs stable. Blood pressure 101/52 on 2mcg/min levophed drip. Will continue to monitor.
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
[2019-12-10] MEDS: Vancomycin oral 125mg/2.5ml ORAL SCH ×3 (14:38→22:33)
--- NOTE | 2019-12-10 16:00 | NUR ---
NURSE NOTES: Patient remains in prone position. Patient remains sedated with RASS score -2 at this time. Fentanyl drip at 200mcg/hr. Vital signs stable. Blood pressure 95/53 on 2mcg/min Levophed. Patient remains orally intubated with ET tube 8cm and 24cm at the lip line. Ventilator setting AC 20, tidal volume 500, FiO2 100%, and PEEP 7. Patient tolerating with no sign of distress. RR 25 and SpO2 99%. Nasal gastric tube patent, 65cm at the lip line, asymptomatic, and running Glucerna at 35mL/hr at this time. Rectal tube patent and draining dark green thin stool at this time. Joe patent, asymptomatic, and draining small amount of dark marge urine. Right femoral jia catheter with pigtail patent, asymptomatic, and running fentanyl and Levophed. Left wrist 22 gauge peripheral IV remains patent, asymptomatic, and saline locked at this time. Wound dressing dry and intact. Patient bed in low position with bed alarm on and call light in reach at this time. Will continue to monitor. Oral care performed.
--- NOTE | 2019-12-10 16:31 | NUR ---
CASE MANAGEMENT: REVIEW SI: COVID-19 INFECTION . PNA . INTUBATED RIGHT FEMORAL TEMP HD CATH PLACEMENT 12/04 T 102.3 HR 120 RR 30 BP 93/53 SAT 97% MECH VENT FIO2 100 WBC 23.7 H/H 10.9/32.5 NA 149 BUN 80 CR 7.9 AST 254 ALT 392 IS: VASOPRESSIN IV Q24HR LEVOPHED IV Q24HR FENTANYL IV Q24HR ZOSYN IV Q12HR HD PRN NGT FEEDING ICU STATUS DCP: PATIENT IS FROM HOME
--- NOTE | 2019-12-10 16:56 | General Progress Note ---
Assessment/Plan Status: unchanged Assessment/Plan: 59-year-old male with PMH of HTN presents with acute respiratory distress. #Acute Hypoxic Respiratory Failure s/p intubation #Severe sepsis #COVID19 positive #CAP #elevated d-dimer #Fevers -Appreciate ICU level of care -s/p Intubation 12/03 -vent management per Pulm/ICU/CCM team -cont. droplet & isolation precautions -Transaminitis/d-dimer/fluctuating fevers likely reactive/ 2/2 COVID -cont. to monitor LFTs -11/25 BCx NGTD -EKG reviewed, sinus tach, HR 115, QTc 437 -trop negative x1, no CP at this time -s/p hydroxychloroquine -prone position per Pulm -Pulm following, recs appreciated -ID, Dr. Rodriguez, following: Merrem, Vanc -cont. current management per ID/Pulm -updated Lizzy corona, on condition, prognosis grave #loose stools -check c diff -start PO vanco -d/w Nephro and ID -ID following #Pneumomediastinum #Subcutaneous emphysema -seen on abd XR -pt too high risk for bedside thoracostomy -d/w general sx and pulm/ICU #ALBARO #Hypernatremia #Hyperkalemia -likely 2/2 to above, COVID -kayexalate, insulin, D5 for hyperkalemia -cont. to montior -12/04: femoral HD cath placed -d/w Nephro, Dr. Soriano: HD per nephro #Transaminitis #Shock Liver -likely 2/2 to above -LFTs improving, ctm -abd us when off isolation -cont. NGT feeds -d/w GI, Dr. Rdz #Sinus Tachycardia 2/2 respiratory failure #HTN -hydralazine PRN -Cardio, , following: Echo after COVID negative DVT PPX: Lovenox Pt is at high risk of rapid decompensation and requires continued ICU level of care Prognosis grave/poor Time spent on encounter: 72 mins, 35 mins spent on critical care time. Critical Care Services performed include: Hemodynamic measurement interpretation Laboratory data review and interpretation Radiology image review and interpretation ABG interpretation Reviewed Tele monitor Discussion of patient's care with ICU team, Nursing staff, ID, Nephro, GI and Pulm. Additional 30 mins spent with pt family counseling, discussed plan of care, advanced end-of-life planning, remain full code at this time. Time of note doesn't reflect time of encounter. Subjective Allergies: Coded Allergies: No Known Allergies (Unverified , 11/29/19) Subjective Follow up for acute hypoxic resp failure, COVID19 positive, s/p intubation, multi-organ failure. Pt remains intubated, unable to obtain ROS due to clinical picture. Plan for HD today. pt w/loose stools per nurse. Objective Last 24 Hour Vital Signs Date Time Temp Pulse Resp B/P (MAP) Pulse Ox O2 Delivery O2 Flow Rate FiO2 12/10/19 16:00 93 19 99/56 (70) 99 12/10/19 16:00 94 12/10/19 15:30 94 18 105/53 (70) 99 12/10/19 15:00 91 14 110/55 (73) 98 12/10/19 14:58 89 25 100 12/10/19 14:30 92 18 101/52 (68) 99 12/10/19 14:00 91 21 102/60 (74) 100 12/10/19 13:30 93 20 106/55 (72) 100 12/10/19 13:01 85 22 100 12/10/19 13:00 94 20 107/57 (74) 99 12/10/19 12:30 93 20 104/59 (74) 99 12/10/19 12:00 95 12/10/19 12:00 97.9 87 19 103/57 (72) 99 12/10/19 12:00 100 12/10/19 12:00 Mechanical Ventilator 12/10/19 11:30 103 13 127/64 (85) 97 12/10/19 11:28 95 24 100 12/10/19 11:17 25 Mechanical Ventilator 100 12/10/19 11:00 96 19 110/55 (73) 99 12/10/19 10:30 95 25 105/57 (73) 98 12/10/19 10:00 95 25 110/57 (74) 95 12/10/19 09:45 78 25 108/56 (73) 95 12/10/19 09:30 96 25 102/54 (70) 96 12/10/19 09:30 99 21 100 12/10/19 09:15 98 25 98/55 (69) 98 12/10/19 09:00 97 25 99/56 (70) 98 12/10/19 09:00 98/55 12/10/19 09:00 25 Mechanical Ventilator 100 12/10/19 08:46 100/58 12/10/19 08:00 101 12/10/19 08:00 Mechanical Ventilator 12/10/19 08:00 25 Mechanical Ventilator 100 12/10/19 08:00 100 12/10/19 08:00 97.9 100 25 100/55 (70) 97 12/10/19 07:00 28 Mechanical Ventilator 100 12/10/19 07:00 97.9 103 21 93/53 (66) 98 12/10/19 06:59 104 23 100 12/10/19 06:51 99.3 12/10/19 06:00 99.3 108 26 123/54 (77) 99 12/10/19 06:00 123/54 12/10/19 06:00 27 Mechanical Ventilator 90 12/10/19 05:28 115 31 100 12/10/19 05:00 118 26 116/57 (76) 93 12/10/19 05:00 116/54 12/10/19 05:00 28 Mechanical Ventilator 90 12/10/19 04:00 124 28 90/58 (69) 85 12/10/19 04:00 90 12/10/19 04:00 Mechanical Ventilator 12/10/19 04:00 90/58 12/10/19 04:00 30 Mechanical Ventilator 90 12/10/19 04:00 128 12/10/19 03:30 118 30 100 12/10/19 03:00 118 28 109/56 (73) 94 12/10/19 03:00 28 Mechanical Ventilator 90 12/10/19 02:00 27 Mechanical Ventilator 90 12/10/19 02:00 120 29 107/56 (73) 94 12/10/19 01:00 102.3 120 27 103/55 (71) 93 12/10/19 01:00 29 Mechanical Ventilator 90 12/10/19 00:56 118 27 100 12/10/19 00:00 120 28 102/52 (69) 92 12/10/19 00:00 119 12/10/19 00:00 28 Mechanical Ventilator 90 12/10/19 00:00 90 12/10/19 00:00 120 12/10/19 00:00 Mechanical Ventilator 12/09/19 23:30 120 28 100 12/09/19 23:26 30 Mechanical Ventilator 100 12/09/19 23:00 121 30 113/57 (75) 91 12/09/19 23:00 30 Mechanical Ventilator 100 12/09/19 22:30 121 29 114/59 (77) 91 12/09/19 22:00 121 27 111/58 (75) 92 12/09/19 22:00 27 Mechanical Ventilator 100 12/09/19 21:30 121 29 113/59 (77) 93 12/09/19 21:00 29 Mechanical Ventilator 100 12/09/19 21:00 119 29 107/55 (72) 93 12/09/19 20:45 120 28 113/57 (75) 94 12/09/19 20:41 112 30 100 12/09/19 20:30 119 28 114/58 (76) 94 12/09/19 20:15 117 24 103/59 (74) 90 12/09/19 20:05 26 Mechanical Ventilator 100 12/09/19 20:00 Mechanical Ventilator 12/09/19 20:00 100.0 119 26 116/51 (72) 94 12/09/19 20:00 26 Mechanical Ventilator 100 12/09/19 20:00 119 12/09/19 19:55 26 Mechanical Ventilator 100 12/09/19 19:50 26 Mechanical Ventilator 90 12/09/19 19:45 24 Mechanical Ventilator 90 12/09/19 19:45 118 24 116/51 (72) 97 12/09/19 19:30 117 28 110/52 (71) 95 12/09/19 19:30 26 Mechanical Ventilator 90 12/09/19 19:30 114 31 100 12/09/19 19:15 117 24 113/52 (72) 96 12/09/19 19:00 117 26 118/54 (75) 97 12/09/19 19:00 26 Mechanical Ventilator 90 12/09/19 18:45 118 22 119/53 (75) 97 12/09/19 18:30 118 20 121/63 (82) 98 12/09/19 18:15 118 19 122/58 (79) 99 12/09/19 18:00 24 Mechanical Ventilator 90 12/09/19 18:00 119 24 126/55 (78) 97 12/09/19 17:45 119 25 130/58 (82) 98 12/09/19 17:30 120 23 126/58 (80) 99 12/09/19 17:15 118 24 119/56 (77) 91 12/09/19 17:00 90 12/09/19 17:00 25 Mechanical Ventilator 90 12/09/19 17:00 Mechanical Ventilator 12/09/19 17:00 119 25 124/82 (96) 100 12/09/19 16:45 123 27 140/67 (91) 100 Intake and Output 12/09/19 12/10/19 19:00 07:00 Intake Total 642.91 ml 360 ml Output Total 160 ml 210 ml Balance 482.91 ml 150 ml Free Water 10 ml IV Total 327.91 ml 325 ml Tube Feeding 305 ml 35 ml Output Urine Total 40 ml 10 ml Stool Total 120 ml 200 ml Laboratory Tests 12/10/19 04:56: White Blood Count 23.7*H, Red Blood Count 3.57L, Hemoglobin 10.9L, Hematocrit 32.5L, Mean Corpuscular Volume 91, Mean Corpuscular Hemoglobin 30.6, Mean Corpuscular Hemoglobin Concent 33.6, Red Cell Distribution Width 12.7, Platelet Count 128L, Mean Platelet Volume 7.8, Neutrophils (%) (Auto) , Lymphocytes (%) ( Auto) , Monocytes (%) (Auto) , Eosinophils (%) (Auto) , Basophils (%) (Auto) , Differential Total Cells Counted 100, Neutrophils % (Manual) 90H, Lymphocytes % (Manual) 3L, Monocytes % (Manual) 6, Eosinophils % (Manual) 1, Basophils % ( Manual) 0, Band Neutrophils 0, Nucleated Red Blood Cells 1, Platelet Estimate DecreasedL, Platelet Morphology Normal, Hypochromasia 1+, Anisocytosis 1+, Sodium Level 149H, Potassium Level 3.6, Chloride Level 105, Carbon Dioxide Level 26, Anion Gap 18H, Blood Urea Nitrogen 80H, Creatinine 7.9H, Estimat Glomerular Filtration Rate 7.1, Glucose Level 103, Calcium Level 7.4L, Total Bilirubin 2.2H, Direct Bilirubin 1.8H, Aspartate Amino Transf (AST/SGOT) 254H, Alanine Aminotransferase (ALT/SGPT) 392H, Alkaline Phosphatase 143H, Total Protein 5.2L, Albumin 2.2L, Globulin 3.0, Albumin/Globulin Ratio 0.7L, Random Vancomycin Level 24.6 Height (Feet): 5 Height (Inches): 6.00 Weight (Pounds): 178 Objective General Appearance: intubated, OG tube in place, in prone position Cardiovascular: Sinus tach on tele Respiratory/Chest: ETT in place, equal rise in lungs b/l Abdomen: non distended Ext: no edema noted Theodore Aguayo M.D. Dec 10, 2019 16:56
--- NOTE | 2019-12-10 17:00 | NUR ---
NURSE NOTES: Patient placed back in semi-fowlers supine position. Patient showing no sign of distress. Periorbital edema noted on bilateral eyes. Vital signs stable. Patient remains on Levophed at 2mcg/min. Will continue to monitor.
--- NOTE | 2019-12-10 17:22 | Diagnostic Imaging Report ---
Indication: Shortness of breath Technique: One view of the chest Comparison: 12/07/2019 Findings: There is worsening airspace opacity in the bilateral mid and lower lungs. The left hemidiaphragm is obscured, could indicate some pleural fluid. Stable satisfactory positions of endotracheal and nasogastric tubes. Impression: Worsening infiltrates, likely pneumonia, bilaterally
[2019-12-10] MEDS: Dyna-Hex 2% Top Sol 2oz TOPIC SCH (19:52)
--- NOTE | 2019-12-10 20:01 | NUR ---
NURSE NOTES: PATIENT SEDATED, ON ETT TO VENT AC20/TV500/FIO2 100%/PEEP7, O2 SATURATION 97% NOTED, HEART RATE 100'S/MIN ST, NGT TO LEFT NARES, INTACT AND PATENT,ONGOING NEPRO AT 35ML/HR, HOB 30 DEGREES, RECTAL TUBE INTACT, DARK GREENISH STOOL NOTED, F/C INTACT AND PATENT, OLIGURIA STATUS, YESI CATHETER W/PIG TAIL TO RIGHT FEMORAL AND PPL TO LEFT WRIST, ONGOING FENTANYL 200MCG/HR AND LEVOPHED 2MCG/MIN VIA YESI W/ PIGTAIL, LOWER BED POSITION, ON BED ALARM AND LOCKED STATUS, COOLING BLANKET STATUS, WILL CONTINUE TO MONITOR. DIALYSIS NURSE CAME, DOING DIALYSIS STATUS.
--- NOTE | 2019-12-10 20:05 | NUR ---
RESPIRATORY NOTE: Received pt on AC 20, 500VT, 100%, PEEP +7. Pt intubated w/ ETT 8.0 @ 24cm. Pt sedated. B/S louise. rhonchi, sxn moderate amounts of thick, doss-brown secretions w/ occasional blood clots. Vent plugged into red outlet, ambubag at bedside. Pt in no apparent distress at this time. Will continue to monitor pt.
--- NOTE | 2019-12-10 20:53 | Infectious Diseases Prog Note ---
Assessment/Plan Assessment/Plan ASSESSMENT AND PLAN: 1. covid-19 virus infection with pna, rule out bacterial pna, sepsis/shock, fevers, leukocytosis vent, respiratory failure, ? oracle manager bacteremia vs contaminant - vancomycin, cefepime and flagyl, po vancomycin - s/p hydroxychloroquine - monitor chest x-ray and labs, f/u cultures - 12/10/19 - chest x-ray worse - s/p tocilizumab - critical - getting HD - poor prognosis - cultures reviewed 2. Hypertension. 3. No known allergies. 4. Social history negative. 5. Family history noncontributory. 6. MAR was noted. 7. Case discussed with RN. 8. Continue treatment per primary consultants. Subjective Constitutional: Reports: fever, other - on pressors and vent HEENT: Reports: congestion Respiratory: Reports: shortness of breath Cardiovascular: Reports: other - + pressors Gastrointestinal/Abdominal: Denies: nausea, vomiting, diarrhea Genitourinary: Reports: other - + barnes Neurologic: Reports: weakness, other - lethargic, sedated Psychiatric: Reports: other - NA Skin: Denies: rash Hematologic: Denies: bleeding Musculoskeletal: Reports: other - NA Allergies: Coded Allergies: No Known Allergies (Unverified , 11/29/19) Objective Vital Signs Last 24 Hour Vital Signs Date Time Temp Pulse Resp B/P (MAP) Pulse Ox O2 Delivery O2 Flow Rate FiO2 12/10/19 20:00 99 26 100 12/10/19 19:00 116/63 12/10/19 19:00 24 Non-Rebreather 100 12/10/19 19:00 99 23 118/64 (82) 94 12/10/19 18:00 116/64 12/10/19 18:00 20 Mechanical Ventilator 100 12/10/19 18:00 95 21 119/64 (82) 93 12/10/19 17:30 96 21 115/61 (79) 93 12/10/19 17:00 88 22 114/57 (76) 94 12/10/19 17:00 114/57 12/10/19 17:00 20 Mechanical Ventilator 100 12/10/19 16:49 91 26 100 12/10/19 16:30 96 19 110/54 (72) 94 12/10/19 16:00 100 12/10/19 16:00 93 19 99/56 (70) 99 12/10/19 16:00 94 12/10/19 16:00 98/52 12/10/19 16:00 20 Mechanical Ventilator 100 12/10/19 16:00 97.9 12/10/19 16:00 Mechanical Ventilator 12/10/19 15:30 94 18 105/53 (70) 99 12/10/19 15:00 91 14 110/55 (73) 98 12/10/19 15:00 107/56 12/10/19 15:00 20 Mechanical Ventilator 100 12/10/19 14:58 89 25 100 12/10/19 14:30 92 18 101/52 (68) 99 12/10/19 14:00 91 21 102/60 (74) 100 12/10/19 14:00 128/63 12/10/19 14:00 20 Mechanical Ventilator 100 12/10/19 13:30 93 20 106/55 (72) 100 12/10/19 13:01 85 22 100 12/10/19 13:00 94 20 107/57 (74) 99 12/10/19 13:00 106/55 12/10/19 13:00 20 Mechanical Ventilator 100 12/10/19 12:30 93 20 104/59 (74) 99 12/10/19 12:00 95 12/10/19 12:00 97.9 87 19 103/57 (72) 99 12/10/19 12:00 100 12/10/19 12:00 93/44 12/10/19 12:00 20 Mechanical Ventilator 100 12/10/19 12:00 Mechanical Ventilator 12/10/19 11:30 103 13 127/64 (85) 97 12/10/19 11:28 95 24 100 12/10/19 11:17 25 Mechanical Ventilator 100 12/10/19 11:00 86/43 12/10/19 11:00 20 Mechanical Ventilator 100 12/10/19 11:00 96 19 110/55 (73) 99 12/10/19 10:30 95 25 105/57 (73) 98 12/10/19 10:00 95 25 110/57 (74) 95 12/10/19 10:00 104/61 12/10/19 10:00 20 Mechanical Ventilator 100 12/10/19 09:45 78 25 108/56 (73) 95 12/10/19 09:30 96 25 102/54 (70) 96 12/10/19 09:30 99 21 100 12/10/19 09:15 98 25 98/55 (69) 98 12/10/19 09:00 97 25 99/56 (70) 98 12/10/19 09:00 98/55 12/10/19 09:00 25 Mechanical Ventilator 100 12/10/19 08:46 100/58 12/10/19 08:00 101 12/10/19 08:00 Mechanical Ventilator 12/10/19 08:00 25 Mechanical Ventilator 100 12/10/19 08:00 100 12/10/19 08:00 97.9 100 25 100/55 (70) 97 12/10/19 07:00 28 Mechanical Ventilator 100 12/10/19 07:00 97.9 103 21 93/53 (66) 98 12/10/19 06:59 104 23 100 12/10/19 06:51 99.3 12/10/19 06:00 99.3 108 26 123/54 (77) 99 12/10/19 06:00 123/54 12/10/19 06:00 27 Mechanical Ventilator 90 12/10/19 05:28 115 31 100 12/10/19 05:00 118 26 116/57 (76) 93 12/10/19 05:00 116/54 12/10/19 05:00 28 Mechanical Ventilator 90 12/10/19 04:00 124 28 90/58 (69) 85 12/10/19 04:00 90 12/10/19 04:00 Mechanical Ventilator 12/10/19 04:00 90/58 12/10/19 04:00 30 Mechanical Ventilator 90 12/10/19 04:00 128 12/10/19 03:30 118 30 100 12/10/19 03:00 118 28 109/56 (73) 94 12/10/19 03:00 28 Mechanical Ventilator 90 12/10/19 02:00 27 Mechanical Ventilator 90 12/10/19 02:00 120 29 107/56 (73) 94 12/10/19 01:00 102.3 120 27 103/55 (71) 93 12/10/19 01:00 29 Mechanical Ventilator 90 12/10/19 00:56 118 27 100 12/10/19 00:00 120 28 102/52 (69) 92 12/10/19 00:00 119 12/10/19 00:00 28 Mechanical Ventilator 90 12/10/19 00:00 90 12/10/19 00:00 120 12/10/19 00:00 Mechanical Ventilator 12/09/19 23:30 120 28 100 12/09/19 23:26 30 Mechanical Ventilator 100 12/09/19 23:00 121 30 113/57 (75) 91 12/09/19 23:00 30 Mechanical Ventilator 100 12/09/19 22:30 121 29 114/59 (77) 91 12/09/19 22:00 121 27 111/58 (75) 92 12/09/19 22:00 27 Mechanical Ventilator 100 12/09/19 21:30 121 29 113/59 (77) 93 12/09/19 21:00 29 Mechanical Ventilator 100 12/09/19 21:00 119 29 107/55 (72) 93 12/09/19 20:45 120 28 113/57 (75) 94 Height (Feet): 5 Height (Inches): 6.00 Weight (Pounds): 178 General Appearance: other - on vent and pressors HEENT: normocephalic, atraumatic, anicteric, no JVD, other - oral - intubated Respiratory/Chest: no accessory muscle use, crackles/rales, rhonchi - bilaterally Cardiovascular: normal rate, regular rhythm, no gallop/murmur, no JVD Abdomen: normal bowel sounds, soft, non tender, no organomegaly, non distended , other - + rectal tube Genitourinary: other - + barnes - urine slt cloudy Extremities: no cyanosis Skin: no rash Neurologic/Psychiatric: chef saucier II-XII grossly normal, alert, responsive Lymphatic: no neck adenopathy Musculoskeletal: no effusion Objective Chest x-ray - 12/02/19 - Procedure: XRAY Chest 1v EXAM: XR Chest, 1 View CLINICAL HISTORY: ABN CHST TECHNIQUE: Frontal view of the chest. COMPARISON: Chest x-ray dated 11/29/19 FINDINGS: Lungs: Persistent diffuse peripheral groundglass opacities, not significantly changed, concerning for pneumonia. Pleural space: Unremarkable. The costophrenic angles are sharp. No visible pneumothorax. Heart: Unremarkable. No cardiomegaly. Mediastinum: Unremarkable. Bones/joints: Mild degenerative changes throughout the visualized spine. Tubes, lines and devices: Telemetry leads overlie the thorax. IMPRESSION: No significant change compared to the prior chest x-ray. Persistent diffuse peripheral groundglass opacities, concerning for pneumonia. Chest x-ray - 12/07/19 - COMPARISON: Chest x-ray 12/06/19 1317 FINDINGS: Lungs: Diffuse bilateral airspace opacities, improved in the left lung and slightly worsened in the right lung. Pleural space: Unremarkable. No pneumothorax. Heart: Mild cardiomegaly. Mediastinum: Unremarkable. Bones/joints: Mild degenerative changes of spine. Tubes, lines and devices: Endotracheal tube and NG tube are stable. IMPRESSION: Diffuse bilateral airspace opacities, improved in the left lung and slightly worsened in the right lung. Procedure: XRAY Chest 1v Indication: Shortness of breath Technique: One view of the chest Comparison: 12/07/2019 Findings: There is worsening airspace opacity in the bilateral mid and lower lungs. The left hemidiaphragm is obscured, could indicate some pleural fluid. Stable satisfactory positions of endotracheal and nasogastric tubes. Impression: Worsening infiltrates, likely pneumonia, bilaterally Microbiology Date/Time Source Procedure Growth Status 12/04/19 12:46 Blood Blood Culture - Final NO GROWTH AFTER 5 DAYS Complete 12/04/19 23:00 Sputum Gram Stain - Final Complete 12/04/19 23:00 Sputum Sputum Culture - Final NORMAL UPPER RESPIRATORY ALISIA PRESENT Complete 12/05/19 02:24 Urine,Clean Catch Urine Culture - Final NO GROWTH AFTER 48 HOURS Complete Laboratory Tests Test 12/10/19 04:56 White Blood Count 23.7 K/UL (4.8-10.8) *H Red Blood Count 3.57 M/UL (4.70-6.10) L Hemoglobin 10.9 G/DL (14.2-18.0) L Hematocrit 32.5 % (42.0-52.0) L Mean Corpuscular Volume 91 FL (80-99) Mean Corpuscular Hemoglobin 30.6 PG (27.0-31.0) Mean Corpuscular Hemoglobin Concent 33.6 G/DL (32.0-36.0) Red Cell Distribution Width 12.7 % (11.6-14.8) Platelet Count 128 K/UL (150-450) L Mean Platelet Volume 7.8 FL (6.5-10.1) Neutrophils (%) (Auto) % (45.0-75.0) Lymphocytes (%) (Auto) % (20.0-45.0) Monocytes (%) (Auto) % (1.0-10.0) Eosinophils (%) (Auto) % (0.0-3.0) Basophils (%) (Auto) % (0.0-2.0) Differential Total Cells Counted 100 Neutrophils % (Manual) 90 % (45-75) H Lymphocytes % (Manual) 3 % (20-45) L Monocytes % (Manual) 6 % (1-10) Eosinophils % (Manual) 1 % (0-3) Basophils % (Manual) 0 % (0-2) Band Neutrophils 0 % (0-8) Nucleated Red Blood Cells 1 /100 WBC Platelet Estimate Decreased L Platelet Morphology Normal Hypochromasia 1+ Anisocytosis 1+ Sodium Level 149 MMOL/L (136-145) H Potassium Level 3.6 MMOL/L (3.5-5.1) Chloride Level 105 MMOL/L (98-107) Carbon Dioxide Level 26 MMOL/L (21-32) Anion Gap 18 mmol/L (5-15) H Blood Urea Nitrogen 80 mg/dL (7-18) H Creatinine 7.9 MG/DL (0.55-1.30) H Estimat Glomerular Filtration Rate 7.1 mL/min (>60) Glucose Level 103 MG/DL (74-106) Calcium Level 7.4 MG/DL (8.5-10.1) L Total Bilirubin 2.2 MG/DL (0.2-1.0) H Direct Bilirubin 1.8 MG/DL (0.0-0.3) H Aspartate Amino Transf (AST/SGOT) 254 U/L (15-37) H Alanine Aminotransferase (ALT/SGPT) 392 U/L (12-78) H Alkaline Phosphatase 143 U/L (46-116) H Total Protein 5.2 G/DL (6.4-8.2) L Albumin 2.2 G/DL (3.4-5.0) L Globulin 3.0 g/dL Albumin/Globulin Ratio 0.7 (1.0-2.7) L Random Vancomycin Level 24.6 ug/mL Current Medications Medications (Trade) Dose Ordered Sig/Vicki Route PRN Reason Start Time Stop Time Status Last Admin Dose Admin Acetaminophen (Tylenol) 650 mg Q4H PRN NG Temp >100.5 12/06/19 14:15 01/05/20 14:14 12/10/19 04:34 Acetaminophen (Tylenol) 650 mg Q4H PRN RECTAL Mild Pain (Pain Scale 1-3) 12/04/19 11:45 01/03/20 11:44 12/06/19 19:17 Chlorhexidine Gluconate (Arely-Hex 2%) 1 applic DAILY@2000 TOPIC 12/05/19 20:00 03/04/20 19:59 12/10/19 19:52 Dextrose (Dextrose 50%) 25 ml Q30M PRN IV Hypoglycemia 11/29/19 14:15 02/27/20 14:14 Dextrose (Dextrose 50%) 50 ml Q30M PRN IV Hypoglycemia 11/29/19 14:15 02/27/20 14:14 Fentanyl Citrate 2500 mcg/Sodium Chloride 250 ml @ 0 mls/hr Q24H IVPB 12/06/19 02:00 12/13/19 01:59 12/10/19 11:17 Hydralazine HCl (Apresoline) 10 mg Q4H PRN IV For High Blood Pressure 11/29/19 15:15 02/27/20 15:14 Norepinephrine Bitartrate 16 mg/ Dextrose 566 ml @ 0 mls/hr Q24H IV 12/06/19 09:00 01/05/20 08:59 12/09/19 08:00 Ondansetron HCl (Zofran) 4 mg Q6H PRN IVP Nausea & Vomiting 11/29/19 14:15 12/29/19 14:14 Pantoprazole (Protonix) 40 mg DAILY IVP 11/30/19 12:15 12/30/19 12:14 12/10/19 08:46 Piperacillin Sod/ Tazobactam Sod 2.25 gm/Dextrose 55 ml @ 110 mls/hr Q8H IV 12/10/19 10:00 12/17/19 09:59 12/10/19 17:30 Vancomycin HCl (Firvanq) 125 mg FOUR TIMES A DAY ORAL 12/10/19 13:00 12/20/19 12:59 12/10/19 17:31 Vancomycin HCl (Vanco rx to dose) 1 ea DAILY PRN MISC Per rx protocol 12/08/19 19:30 01/07/20 19:29 Vasopressin 100 units/Sodium Chloride 100 ml @ 0 mls/hr Q24H IV 12/06/19 09:00 01/05/20 08:59 12/06/19 09:03 Ilsa Rodriguez MD Dec 10, 2019 20:53
--- NOTE | 2019-12-10 22:20 | NUR ---
NURSE NOTES: FINISHED DIALYSIS, 2000ML WAS REMOVED. ONGOING LEVOPHED 10MCG/MIN STATUS.
[2019-12-11] VITALS (69 sets, daily range): BP systolic 91–143; BP diastolic 47–73
--- NOTE | 2019-12-11 | NUR ---
NURSE NOTES: LE: ONGOING LEVOPHED 8MCG AND FENTANYL 200MCG/HR STATUS, RASS SCORE -2 AT THIS TIME.
[2019-12-11] MEDS: fentaNYL Citrate 2,500 MCG in NS 200 ML IVPB SCH ×3 (00:56→20:05)
--- NOTE | 2019-12-11 02:05 | NUR ---
NURSE NOTES: VSS, ON LEVOPHED 6MCG/MIN, NO PAIN OR DISTRESS NOTED AT THIS TIME.
--- NOTE | 2019-12-11 04:15 | NUR ---
NURSE NOTES: LE: MORNING CARE AND ORAL CARE WAS DONE, MADE PRONE POSITION ORDER, F/C INTACT AND ANURIC STATUS, RECTAL TUBE INTACT, NO DIARRHEA NOTED, ONGOING FENTANYL DRIP 300MCG/HR, WILL CONTINUE TO MONITOR.
[2019-12-11 05:46] LABS: INR 1.1 (0.9-1.1)
[2019-12-11 05:48] LABS: HEMATOCRIT 32.9 % (42.0-52.0); MEAN CORPUSCULAR VOLUME 91 FL (80-99); PLATELET COUNT 129 K/UL (150-450); RED BLOOD COUNT 3.61 M/UL (4.70-6.10)
[2019-12-11 06:09] LABS: WHITE BLOOD COUNT 24.2 K/UL (4.8-10.8)
[2019-12-11 06:13] LABS: ALANINE AMINOTRANSFERASE 248 U/L (12-78); ALBUMIN 2.1 G/DL (3.4-5.0); ALBUMIN/GLOBULIN RATIO 0.6 (1.0-2.7); ALKALINE PHOSPHATASE 138 U/L (46-116); ANION GAP 10 mmol/L (5-15); ASPARTATE AMINO TRANSFERASE 117 U/L (15-37); BILIRUBIN,TOTAL 2.3 MG/DL (0.2-1.0); BLOOD UREA NITROGEN 64 mg/dL (7-18); CALCIUM 7.9 MG/DL (8.5-10.1); CARBON DIOXIDE 33 MMOL/L (21-32); CHLORIDE 102 MMOL/L (98-107); CREATININE 6.9 MG/DL (0.55-1.30); POTASSIUM 2.8 MMOL/L (3.5-5.1); SODIUM 145 MMOL/L (136-145)
[2019-12-11 06:42] LABS: BILIRUBIN,DIRECT 1.8 MG/DL (0.0-0.3)
--- NOTE | 2019-12-11 06:46 | NUR ---
NURSE NOTES: PATIENT SEDATED, RASS SCORE -2, HR 100'S/MIN ST NOTED, BP 111/58MMHG ON LEVOPHED 6MCG/MIN. O2 SATURATION 93% NOTED AT THIS TIME.
--- NOTE | 2019-12-11 07:18 | NUR ---
HAND-OFF: Report given to DARYA MATHEW.
--- NOTE | 2019-12-11 08:10 | NUR ---
NURSE NOTES: Dr. Casillas made aware of patient WBC count increase to 24.2 with temperature of 99.5 F in the morning. no verbal orders given at this time.
[2019-12-11] MEDS ORDERED: Vancomycin 500mg/D5W 110ml IVPB ONE ×2 (09:00)
[2019-12-11] MEDS: Vasopressin 100 UNITS in NS 95 ML IV SCH (09:00)
--- NOTE | 2019-12-11 09:20 | General Progress Note ---
Assessment/Plan Status: unchanged Assessment/Plan: 59-year-old male with PMH of HTN presents with acute respiratory distress. #Acute Hypoxic Respiratory Failure s/p intubation #Severe sepsis #COVID19 positive #CAP #elevated d-dimer #Fevers -Appreciate ICU level of care -s/p Intubation 12/03 -vent management per Pulm/ICU/CCM team -cont. droplet & isolation precautions -Transaminitis/d-dimer/fluctuating fevers likely reactive/ 2/2 COVID -cont. to monitor LFTs -sedation per pulm/ICU -s/p hydroxychloroquine -s/p actrema -prone position per Pulm -Pulm following, recs appreciated -ID, Dr. Rodriguez, following: Merrem, Vanc -cont. current management per ID/Pulm -updated Lizzy corona, on condition, prognosis grave #loose stools -check c diff -start PO vanco -d/w Nephro and ID -ID following #Pneumomediastinum #Subcutaneous emphysema -seen on abd XR -pt too high risk for bedside thoracostomy -d/w general sx and pulm/ICU #ALBARO #Hypernatremia #Hyperkalemia -likely 2/2 to above, COVID -kayexalate, insulin, D5 for hyperkalemia -cont. to montior -12/04: femoral HD cath placed -may need ultrafiltration -d/w Nephdeni, Dr. Soriano: HD per nephro #Transaminitis #Shock Liver -likely 2/2 to above -LFTs improving, ctm -abd us when off isolation -cont. NGT feeds -d/w GI, Dr. Rdz #Sinus Tachycardia 2/2 respiratory failure #HTN -hydralazine PRN -Cardio, , following: Echo after COVID negative DVT PPX: Lovenox Pt is at high risk of rapid decompensation and requires continued ICU level of care Prognosis grave/poor Time spent on encounter: 67 mins, 32 mins spent on critical care time. Critical Care Services performed include: Hemodynamic measurement interpretation Laboratory data review and interpretation Radiology image review and interpretation ABG interpretation Reviewed Tele monitor Discussion of patient's care with ICU team, Nursing staff, ID, Nephro, and Pulm. Time of note doesn't reflect time of encounter. Subjective Allergies: Coded Allergies: No Known Allergies (Unverified , 11/29/19) Subjective Follow up for acute hypoxic resp failure, COVID19 positive, s/p intubation, multi-organ failure. Pt remains intubated, unable to obtain ROS due to clinical picture. Plan for HD today. CXR w/increased fluid. Objective Last 24 Hour Vital Signs Date Time Temp Pulse Resp B/P (MAP) Pulse Ox O2 Delivery O2 Flow Rate FiO2 12/11/19 07:02 110 28 100 12/11/19 07:00 112/58 12/11/19 07:00 21 Mechanical Ventilator 100 12/11/19 07:00 108 21 112/58 (76) 94 12/11/19 06:30 108 27 111/58 (75) 94 12/11/19 06:15 107 27 120/60 (80) 94 12/11/19 06:00 120/62 12/11/19 06:00 24 Mechanical Ventilator 100 12/11/19 06:00 110 24 120/62 (81) 94 12/11/19 05:45 107 24 113/56 (75) 93 12/11/19 05:30 106 20 113/56 (75) 95 12/11/19 05:15 107 22 117/54 (75) 92 12/11/19 05:00 119/55 12/11/19 05:00 23 Mechanical Ventilator 100 12/11/19 05:00 108 23 119/55 (76) 86 12/11/19 04:58 105 22 109/54 (72) 86 12/11/19 04:45 109 23 117/48 (71) 86 12/11/19 04:40 111 25 100 12/11/19 04:30 108 24 117/49 (71) 75 12/11/19 04:15 22 Mechanical Ventilator 100 12/11/19 04:15 98 27 106/50 (68) 88 12/11/19 04:10 23 Mechanical Ventilator 100 12/11/19 04:00 98.9 85 24 118/59 (78) 100 12/11/19 04:00 85 12/11/19 04:00 100 12/11/19 04:00 118/59 12/11/19 04:00 24 Mechanical Ventilator 100 12/11/19 04:00 Mechanical Ventilator 12/11/19 03:55 24 Mechanical Ventilator 100 12/11/19 03:50 23 Mechanical Ventilator 100 12/11/19 03:45 96 23 122/67 (85) 100 12/11/19 03:45 24 Mechanical Ventilator 100 12/11/19 03:40 24 Mechanical Ventilator 100 12/11/19 03:35 23 Mechanical Ventilator 100 12/11/19 03:30 22 Mechanical Ventilator 100 12/11/19 03:30 83 22 125/64 (84) 100 12/11/19 03:24 93 27 100 12/11/19 03:00 121/84 12/11/19 03:00 23 Mechanical Ventilator 100 12/11/19 03:00 84 23 121/64 (83) 99 12/11/19 02:30 83 22 116/64 (81) 100 12/11/19 02:00 84 21 118/63 (81) 100 12/11/19 02:00 118/63 12/11/19 02:00 21 Mechanical Ventilator 100 12/11/19 01:30 81 21 118/62 (80) 100 12/11/19 01:20 75 25 100 12/11/19 01:00 85 24 109/60 (76) 100 12/11/19 01:00 109/60 12/11/19 01:00 24 Mechanical Ventilator 100 12/11/19 00:56 28 Mechanical Ventilator 100 12/11/19 00:30 84 21 121/65 (83) 100 12/11/19 00:00 Mechanical Ventilator 12/11/19 00:00 98.6 85 22 122/62 (82) 100 12/11/19 00:00 85 12/11/19 00:00 122/62 12/11/19 00:00 22 Mechanical Ventilator 100 12/11/19 00:00 100 12/10/19 23:48 92 26 100 12/10/19 23:30 93 19 110/59 (76) 100 12/10/19 23:00 93 24 132/67 (88) 100 12/10/19 23:00 133/67 12/10/19 23:00 24 Mechanical Ventilator 100 12/10/19 22:30 90 24 129/66 (87) 100 12/10/19 22:00 82 24 118/71 (87) 100 12/10/19 22:00 118/71 12/10/19 22:00 24 Mechanical Ventilator 100 12/10/19 21:45 83 24 119/71 (87) 100 12/10/19 21:30 84 21 118/70 (86) 99 12/10/19 21:16 77 26 100 12/10/19 21:15 87 21 95/59 (71) 98 12/10/19 21:00 106/63 12/10/19 21:00 20 Mechanical Ventilator 100 12/10/19 21:00 88 20 106/63 (77) 98 12/10/19 20:45 89 22 103/62 (76) 99 12/10/19 20:30 95 22 104/62 (76) 98 12/10/19 20:15 99 24 105/60 (75) 98 12/10/19 20:00 Mechanical Ventilator 12/10/19 20:00 100 12/10/19 20:00 97.5 98 28 113/59 (77) 96 12/10/19 20:00 113/59 12/10/19 20:00 28 Mechanical Ventilator 100 12/10/19 20:00 99 26 100 12/10/19 19:55 101 23 132/59 (83) 93 12/10/19 19:45 103 26 123/62 (82) 94 12/10/19 19:30 102 24 116/63 (80) 94 12/10/19 19:16 100 12/10/19 19:00 116/63 12/10/19 19:00 24 Non-Rebreather 100 12/10/19 19:00 99 23 118/64 (82) 94 12/10/19 18:00 116/64 12/10/19 18:00 20 Mechanical Ventilator 100 12/10/19 18:00 95 21 119/64 (82) 93 12/10/19 17:30 96 21 115/61 (79) 93 12/10/19 17:00 88 22 114/57 (76) 94 12/10/19 17:00 114/57 12/10/19 17:00 20 Mechanical Ventilator 100 12/10/19 16:49 91 26 100 12/10/19 16:30 96 19 110/54 (72) 94 12/10/19 16:00 100 12/10/19 16:00 93 19 99/56 (70) 99 12/10/19 16:00 94 12/10/19 16:00 98/52 12/10/19 16:00 20 Mechanical Ventilator 100 12/10/19 16:00 97.9 12/10/19 16:00 Mechanical Ventilator 12/10/19 15:30 94 18 105/53 (70) 99 12/10/19 15:00 91 14 110/55 (73) 98 12/10/19 15:00 107/56 12/10/19 15:00 20 Mechanical Ventilator 100 12/10/19 14:58 89 25 100 12/10/19 14:30 92 18 101/52 (68) 99 12/10/19 14:00 91 21 102/60 (74) 100 12/10/19 14:00 128/63 12/10/19 14:00 20 Mechanical Ventilator 100 12/10/19 13:30 93 20 106/55 (72) 100 12/10/19 13:01 85 22 100 12/10/19 13:00 94 20 107/57 (74) 99 12/10/19 13:00 106/55 12/10/19 13:00 20 Mechanical Ventilator 100 12/10/19 12:30 93 20 104/59 (74) 99 12/10/19 12:00 95 12/10/19 12:00 97.9 87 19 103/57 (72) 99 12/10/19 12:00 100 12/10/19 12:00 93/44 12/10/19 12:00 20 Mechanical Ventilator 100 12/10/19 12:00 Mechanical Ventilator 12/10/19 11:30 103 13 127/64 (85) 97 12/10/19 11:28 95 24 100 12/10/19 11:17 25 Mechanical Ventilator 100 12/10/19 11:00 86/43 12/10/19 11:00 20 Mechanical Ventilator 100 12/10/19 11:00 96 19 110/55 (73) 99 12/10/19 10:30 95 25 105/57 (73) 98 12/10/19 10:00 95 25 110/57 (74) 95 12/10/19 10:00 104/61 12/10/19 10:00 20 Mechanical Ventilator 100 12/10/19 09:45 78 25 108/56 (73) 95 12/10/19 09:30 96 25 102/54 (70) 96 12/10/19 09:30 99 21 100 Intake and Output 12/10/19 12/11/19 19:00 07:00 Intake Total 532.40 ml 1099.26 ml Output Total 10 ml 2000 ml Balance 522.40 ml -900.74 ml IV Total 392.40 ml 684.26 ml Tube Feeding 140 ml 385 ml Other 30 ml Output Urine Total 10 ml 0 ml Stool Total 0 ml Hemodialysis UF 2000 ml Laboratory Tests 12/11/19 03:50: White Blood Count 24.2*H, Red Blood Count 3.61L, Hemoglobin 11.0L, Hematocrit 32.9L, Mean Corpuscular Volume 91, Mean Corpuscular Hemoglobin 30.5, Mean Corpuscular Hemoglobin Concent 33.4, Red Cell Distribution Width 13.0, Platelet Count 129L, Mean Platelet Volume 7.9, Neutrophils (%) (Auto) , Lymphocytes (%) ( Auto) , Monocytes (%) (Auto) , Eosinophils (%) (Auto) , Basophils (%) (Auto) , Differential Total Cells Counted 100, Neutrophils % (Manual) 90H, Lymphocytes % (Manual) 4L, Monocytes % (Manual) 5, Eosinophils % (Manual) 1, Basophils % ( Manual) 0, Band Neutrophils 0, Nucleated Red Blood Cells 1, Platelet Estimate DecreasedL, Platelet Morphology Normal, Hypochromasia 1+, Anisocytosis 1+, Prothrombin Time 11.7H, Prothromb Time International Ratio 1.1, Sodium Level 145 , Potassium Level 2.8L, Chloride Level 102, Carbon Dioxide Level 33H, Anion Gap 10, Blood Urea Nitrogen 64H, Creatinine 6.9H, Estimat Glomerular Filtration Rate 8.3, Glucose Level 115H, Calcium Level 7.9L, Total Bilirubin 2.3H, Direct Bilirubin 1.8H, Aspartate Amino Transf (AST/SGOT) 117H, Alanine Aminotransferase (ALT/SGPT) 248H, Alkaline Phosphatase 138H, Total Protein 5.6L , Albumin 2.1L, Globulin 3.5, Albumin/Globulin Ratio 0.6L, Random Vancomycin Level 18.6 12/11/19 08:17: Arterial Blood pH [Pending], Arterial Blood Partial Pressure CO2 [Pending], Arterial Blood Partial Pressure O2 [Pending], Arterial Blood HCO3 [Pending], Arterial Blood Oxygen Saturation [Pending], Arterial Blood Base Excess [Pending] , Melecio Test [Pending] Height (Feet): 5 Height (Inches): 6.00 Weight (Pounds): 177 Objective General Appearance: intubated, OG tube in place, in prone position Cardiovascular: Sinus tach on tele Respiratory/Chest: ETT in place, equal rise in lungs b/l Abdomen: non distended Ext: no edema noted Theodore Aguayo M.D. Dec 11, 2019 09:20
--- NOTE | 2019-12-11 09:28 | General Progress Note ---
Assessment/Plan Problem List: (1) Elevated LFTs ICD Codes: R79.89 - Other specified abnormal findings of blood chemistry SNOMED: 068567170, 034898006 (2) HTN (hypertension) ICD Codes: I10 - Essential (primary) hypertension SNOMED: 62501408 (3) Suspected COVID-19 virus infection ICD Codes: R68.89 - Other general symptoms and signs SNOMED: 799176913 (4) Pneumonia ICD Codes: J18.9 - Pneumonia, unspecified organism SNOMED: 739403672 (5) Respiratory distress ICD Codes: R06.03 - Acute respiratory distress SNOMED: 960924462 (6) Pneumomediastinum ICD Codes: J98.2 - Interstitial emphysema SNOMED: 36277124 (7) COVID-19 ICD Codes: U07.1 - COVID-19 SNOMED: 475211629 (8) Hypotension ICD Codes: I95.9 - Hypotension, unspecified SNOMED: 40641937 Status: unchanged Assessment/Plan: NGTF rectal tube in place elevated LFTS most likely due to shock liver>>> improving repeat labs in am hepatitis panel>>>Neg abd us when off of isolation fu nephrology recent labs and notes reviewed D/W the nurse Subjective ROS Limited/Unobtainable: No Allergies: Coded Allergies: No Known Allergies (Unverified , 11/29/19) Objective Last 24 Hour Vital Signs Date Time Temp Pulse Resp B/P (MAP) Pulse Ox O2 Delivery O2 Flow Rate FiO2 12/11/19 07:02 110 28 100 12/11/19 07:00 112/58 12/11/19 07:00 21 Mechanical Ventilator 100 12/11/19 07:00 108 21 112/58 (76) 94 12/11/19 06:30 108 27 111/58 (75) 94 12/11/19 06:15 107 27 120/60 (80) 94 12/11/19 06:00 120/62 12/11/19 06:00 24 Mechanical Ventilator 100 12/11/19 06:00 110 24 120/62 (81) 94 12/11/19 05:45 107 24 113/56 (75) 93 12/11/19 05:30 106 20 113/56 (75) 95 12/11/19 05:15 107 22 117/54 (75) 92 12/11/19 05:00 119/55 4/29/20 05:00 23 Mechanical Ventilator 100 12/11/19 05:00 108 23 119/55 (76) 86 12/11/19 04:58 105 22 109/54 (72) 86 12/11/19 04:45 109 23 117/48 (71) 86 12/11/19 04:40 111 25 100 12/11/19 04:30 108 24 117/49 (71) 75 12/11/19 04:15 22 Mechanical Ventilator 100 12/11/19 04:15 98 27 106/50 (68) 88 12/11/19 04:10 23 Mechanical Ventilator 100 12/11/19 04:00 98.9 85 24 118/59 (78) 100 12/11/19 04:00 85 12/11/19 04:00 100 12/11/19 04:00 118/59 12/11/19 04:00 24 Mechanical Ventilator 100 12/11/19 04:00 Mechanical Ventilator 12/11/19 03:55 24 Mechanical Ventilator 100 12/11/19 03:50 23 Mechanical Ventilator 100 12/11/19 03:45 96 23 122/67 (85) 100 12/11/19 03:45 24 Mechanical Ventilator 100 12/11/19 03:40 24 Mechanical Ventilator 100 12/11/19 03:35 23 Mechanical Ventilator 100 12/11/19 03:30 22 Mechanical Ventilator 100 12/11/19 03:30 83 22 125/64 (84) 100 12/11/19 03:24 93 27 100 12/11/19 03:00 121/84 12/11/19 03:00 23 Mechanical Ventilator 100 12/11/19 03:00 84 23 121/64 (83) 99 12/11/19 02:30 83 22 116/64 (81) 100 12/11/19 02:00 84 21 118/63 (81) 100 12/11/19 02:00 118/63 12/11/19 02:00 21 Mechanical Ventilator 100 12/11/19 01:30 81 21 118/62 (80) 100 12/11/19 01:20 75 25 100 12/11/19 01:00 85 24 109/60 (76) 100 12/11/19 01:00 109/60 12/11/19 01:00 24 Mechanical Ventilator 100 12/11/19 00:56 28 Mechanical Ventilator 100 12/11/19 00:30 84 21 121/65 (83) 100 12/11/19 00:00 Mechanical Ventilator 12/11/19 00:00 98.6 85 22 122/62 (82) 100 12/11/19 00:00 85 12/11/19 00:00 122/62 12/11/19 00:00 22 Mechanical Ventilator 100 12/11/19 00:00 100 12/10/19 23:48 92 26 100 12/10/19 23:30 93 19 110/59 (76) 100 12/10/19 23:00 93 24 132/67 (88) 100 12/10/19 23:00 133/67 12/10/19 23:00 24 Mechanical Ventilator 100 12/10/19 22:30 90 24 129/66 (87) 100 12/10/19 22:00 82 24 118/71 (87) 100 12/10/19 22:00 118/71 12/10/19 22:00 24 Mechanical Ventilator 100 12/10/19 21:45 83 24 119/71 (87) 100 12/10/19 21:30 84 21 118/70 (86) 99 12/10/19 21:16 77 26 100 12/10/19 21:15 87 21 95/59 (71) 98 12/10/19 21:00 106/63 12/10/19 21:00 20 Mechanical Ventilator 100 12/10/19 21:00 88 20 106/63 (77) 98 12/10/19 20:45 89 22 103/62 (76) 99 12/10/19 20:30 95 22 104/62 (76) 98 12/10/19 20:15 99 24 105/60 (75) 98 12/10/19 20:00 Mechanical Ventilator 12/10/19 20:00 100 12/10/19 20:00 97.5 98 28 113/59 (77) 96 12/10/19 20:00 113/59 12/10/19 20:00 28 Mechanical Ventilator 100 12/10/19 20:00 99 26 100 12/10/19 19:55 101 23 132/59 (83) 93 12/10/19 19:45 103 26 123/62 (82) 94 12/10/19 19:30 102 24 116/63 (80) 94 4/28/20 19:16 100 12/10/19 19:00 116/63 12/10/19 19:00 24 Non-Rebreather 100 12/10/19 19:00 99 23 118/64 (82) 94 12/10/19 18:00 116/64 12/10/19 18:00 20 Mechanical Ventilator 100 12/10/19 18:00 95 21 119/64 (82) 93 12/10/19 17:30 96 21 115/61 (79) 93 12/10/19 17:00 88 22 114/57 (76) 94 12/10/19 17:00 114/57 12/10/19 17:00 20 Mechanical Ventilator 100 12/10/19 16:49 91 26 100 12/10/19 16:30 96 19 110/54 (72) 94 12/10/19 16:00 100 12/10/19 16:00 93 19 99/56 (70) 99 12/10/19 16:00 94 12/10/19 16:00 98/52 12/10/19 16:00 20 Mechanical Ventilator 100 12/10/19 16:00 97.9 12/10/19 16:00 Mechanical Ventilator 12/10/19 15:30 94 18 105/53 (70) 99 12/10/19 15:00 91 14 110/55 (73) 98 12/10/19 15:00 107/56 12/10/19 15:00 20 Mechanical Ventilator 100 12/10/19 14:58 89 25 100 12/10/19 14:30 92 18 101/52 (68) 99 12/10/19 14:00 91 21 102/60 (74) 100 12/10/19 14:00 128/63 12/10/19 14:00 20 Mechanical Ventilator 100 12/10/19 13:30 93 20 106/55 (72) 100 12/10/19 13:01 85 22 100 12/10/19 13:00 94 20 107/57 (74) 99 12/10/19 13:00 106/55 12/10/19 13:00 20 Mechanical Ventilator 100 12/10/19 12:30 93 20 104/59 (74) 99 12/10/19 12:00 95 12/10/19 12:00 97.9 87 19 103/57 (72) 99 12/10/19 12:00 100 12/10/19 12:00 93/44 12/10/19 12:00 20 Mechanical Ventilator 100 12/10/19 12:00 Mechanical Ventilator 12/10/19 11:30 103 13 127/64 (85) 97 12/10/19 11:28 95 24 100 12/10/19 11:17 25 Mechanical Ventilator 100 12/10/19 11:00 86/43 12/10/19 11:00 20 Mechanical Ventilator 100 12/10/19 11:00 96 19 110/55 (73) 99 12/10/19 10:30 95 25 105/57 (73) 98 12/10/19 10:00 95 25 110/57 (74) 95 12/10/19 10:00 104/61 12/10/19 10:00 20 Mechanical Ventilator 100 12/10/19 09:45 78 25 108/56 (73) 95 12/10/19 09:30 96 25 102/54 (70) 96 12/10/19 09:30 99 21 100 Intake and Output 12/10/19 12/11/19 19:00 07:00 Intake Total 532.40 ml 1099.26 ml Output Total 10 ml 2000 ml Balance 522.40 ml -900.74 ml IV Total 392.40 ml 684.26 ml Tube Feeding 140 ml 385 ml Other 30 ml Output Urine Total 10 ml 0 ml Stool Total 0 ml Hemodialysis UF 2000 ml Laboratory Tests 12/11/19 03:50: White Blood Count 24.2*H, Red Blood Count 3.61L, Hemoglobin 11.0L, Hematocrit 32.9L, Mean Corpuscular Volume 91, Mean Corpuscular Hemoglobin 30.5, Mean Corpuscular Hemoglobin Concent 33.4, Red Cell Distribution Width 13.0, Platelet Count 129L, Mean Platelet Volume 7.9, Neutrophils (%) (Auto) , Lymphocytes (%) ( Auto) , Monocytes (%) (Auto) , Eosinophils (%) (Auto) , Basophils (%) (Auto) , Differential Total Cells Counted 100, Neutrophils % (Manual) 90H, Lymphocytes % (Manual) 4L, Monocytes % (Manual) 5, Eosinophils % (Manual) 1, Basophils % ( Manual) 0, Band Neutrophils 0, Nucleated Red Blood Cells 1, Platelet Estimate DecreasedL, Platelet Morphology Normal, Hypochromasia 1+, Anisocytosis 1+, Prothrombin Time 11.7H, Prothromb Time International Ratio 1.1, Sodium Level 145 , Potassium Level 2.8L, Chloride Level 102, Carbon Dioxide Level 33H, Anion Gap 10, Blood Urea Nitrogen 64H, Creatinine 6.9H, Estimat Glomerular Filtration Rate 8.3, Glucose Level 115H, Calcium Level 7.9L, Magnesium Level [Pending], Total Bilirubin 2.3H, Direct Bilirubin 1.8H, Aspartate Amino Transf (AST/SGOT) 117H, Alanine Aminotransferase (ALT/SGPT) 248H, Alkaline Phosphatase 138H, Total Protein 5.6L, Albumin 2.1L, Globulin 3.5, Albumin/Globulin Ratio 0.6L, Random Vancomycin Level 18.6 12/11/19 08:17: Arterial Blood pH 7.204*L, Arterial Blood Partial Pressure CO2 82.6*H, Arterial Blood Partial Pressure O2 55.2L, Arterial Blood HCO3 31.9H, Arterial Blood Oxygen Saturation 84.8*L, Arterial Blood Base Excess 2.0, Melecio Test Positive Height (Feet): 5 Height (Inches): 6.00 Weight (Pounds): 177 General Appearance: lethargic EENT: normal ENT inspection Neck: supple Cardiovascular: normal rate Respiratory/Chest: decreased breath sounds Abdomen: normal bowel sounds, non tender, soft Extremities: non-tender João Rdz MD Dec 11, 2019 09:27
[2019-12-11] MEDS ORDERED: Sodium Chloride for KCL Premix x 2hrs IV SCH (09:30)
--- NOTE | 2019-12-11 09:30 | NUR ---
NURSE NOTES: Dr. Aguayo placed order for potassium chloride 40mEq PO and potassium chloride 20mEq IV.
[2019-12-11] MEDS: Norepinephrine Bitartrate 16 MG in D5W 500ml 550 ML IV SCH (09:56)
[2019-12-11] MEDS: Pantoprazole Inj IVP SCH (09:58)
[2019-12-11] MEDS: Vancomycin oral 125mg/2.5ml ORAL SCH ×4 (09:59→21:39)
--- NOTE | 2019-12-11 10:04 | Pulmonology Progress Note ---
Assessment/Plan Assessment/Plan IMPRESSION: 1. Bilateral pneumonia. 2. Positive COVID-19. 3. Respiratory failure. DISCUSSION: Intubated On AC 20; FiO2 90; PEEP 7; SaO2 97% Pa)2 low today (55) Abd Xray shows mediastinal PTX Recent CXR 12/06; no PTX or pneumomediastinum seen Continue proning On Fentanyl due to high triglycerides Continue proning as heart rate tolerates Saturations are better Grave prognosis but slowly better; CXR and oxygenation worse today I will follow carefully. S/p HD S/p Actemra Blood CS ? contaminant Needs ongoing HD; more ultrafiltration Urine CS negative Sushil Cortes M.D. Subjective ROS Limited/Unobtainable: No Interval Events: Intubated ;proning continuing Constitutional: Reports: fever, other - on pressors and vent HEENT: Repors: no symptoms Respiratory: Reports: no symptoms Cardiovascular: Reports: no symptoms Gastrointestinal/Abdominal: Denies: nausea, vomiting, diarrhea Genitourinary: Reports: no symptoms Psychiatric: Reports: other - NA Skin: Denies: rash Musculoskeletal: Reports: other - NA Allergies: Coded Allergies: No Known Allergies (Unverified , 11/29/19) Objective Last 24 Hour Vital Signs Date Time Temp Pulse Resp B/P (MAP) Pulse Ox O2 Delivery O2 Flow Rate FiO2 12/11/19 09:56 118/61 12/11/19 07:02 110 28 100 12/11/19 07:00 112/58 12/11/19 07:00 21 Mechanical Ventilator 100 12/11/19 07:00 108 21 112/58 (76) 94 12/11/19 06:30 108 27 111/58 (75) 94 12/11/19 06:15 107 27 120/60 (80) 94 12/11/19 06:00 120/62 12/11/19 06:00 24 Mechanical Ventilator 100 12/11/19 06:00 110 24 120/62 (81) 94 12/11/19 05:45 107 24 113/56 (75) 93 12/11/19 05:30 106 20 113/56 (75) 95 12/11/19 05:15 107 22 117/54 (75) 92 12/11/19 05:00 119/55 12/11/19 05:00 23 Mechanical Ventilator 100 12/11/19 05:00 108 23 119/55 (76) 86 12/11/19 04:58 105 22 109/54 (72) 86 12/11/19 04:45 109 23 117/48 (71) 86 12/11/19 04:40 111 25 100 12/11/19 04:30 108 24 117/49 (71) 75 12/11/19 04:15 22 Mechanical Ventilator 100 12/11/19 04:15 98 27 106/50 (68) 88 12/11/19 04:10 23 Mechanical Ventilator 100 12/11/19 04:00 98.9 85 24 118/59 (78) 100 12/11/19 04:00 85 12/11/19 04:00 100 12/11/19 04:00 118/59 12/11/19 04:00 24 Mechanical Ventilator 100 12/11/19 04:00 Mechanical Ventilator 12/11/19 03:55 24 Mechanical Ventilator 100 12/11/19 03:50 23 Mechanical Ventilator 100 12/11/19 03:45 96 23 122/67 (85) 100 12/11/19 03:45 24 Mechanical Ventilator 100 12/11/19 03:40 24 Mechanical Ventilator 100 12/11/19 03:35 23 Mechanical Ventilator 100 12/11/19 03:30 22 Mechanical Ventilator 100 12/11/19 03:30 83 22 125/64 (84) 100 12/11/19 03:24 93 27 100 12/11/19 03:00 121/84 12/11/19 03:00 23 Mechanical Ventilator 100 12/11/19 03:00 84 23 121/64 (83) 99 12/11/19 02:30 83 22 116/64 (81) 100 12/11/19 02:00 84 21 118/63 (81) 100 12/11/19 02:00 118/63 12/11/19 02:00 21 Mechanical Ventilator 100 12/11/19 01:30 81 21 118/62 (80) 100 12/11/19 01:20 75 25 100 12/11/19 01:00 85 24 109/60 (76) 100 12/11/19 01:00 109/60 12/11/19 01:00 24 Mechanical Ventilator 100 12/11/19 00:56 28 Mechanical Ventilator 100 12/11/19 00:30 84 21 121/65 (83) 100 12/11/19 00:00 Mechanical Ventilator 12/11/19 00:00 98.6 85 22 122/62 (82) 100 12/11/19 00:00 85 12/11/19 00:00 122/62 12/11/19 00:00 22 Mechanical Ventilator 100 12/11/19 00:00 100 12/10/19 23:48 92 26 100 12/10/19 23:30 93 19 110/59 (76) 100 12/10/19 23:00 93 24 132/67 (88) 100 12/10/19 23:00 133/67 12/10/19 23:00 24 Mechanical Ventilator 100 12/10/19 22:30 90 24 129/66 (87) 100 12/10/19 22:00 82 24 118/71 (87) 100 12/10/19 22:00 118/71 12/10/19 22:00 24 Mechanical Ventilator 100 12/10/19 21:45 83 24 119/71 (87) 100 12/10/19 21:30 84 21 118/70 (86) 99 12/10/19 21:16 77 26 100 12/10/19 21:15 87 21 95/59 (71) 98 12/10/19 21:00 106/63 12/10/19 21:00 20 Mechanical Ventilator 100 12/10/19 21:00 88 20 106/63 (77) 98 12/10/19 20:45 89 22 103/62 (76) 99 12/10/19 20:30 95 22 104/62 (76) 98 12/10/19 20:15 99 24 105/60 (75) 98 12/10/19 20:00 Mechanical Ventilator 12/10/19 20:00 100 12/10/19 20:00 97.5 98 28 113/59 (77) 96 12/10/19 20:00 113/59 12/10/19 20:00 28 Mechanical Ventilator 100 12/10/19 20:00 99 26 100 12/10/19 19:55 101 23 132/59 (83) 93 12/10/19 19:45 103 26 123/62 (82) 94 12/10/19 19:30 102 24 116/63 (80) 94 12/10/19 19:16 100 12/10/19 19:00 116/63 12/10/19 19:00 24 Non-Rebreather 100 12/10/19 19:00 99 23 118/64 (82) 94 12/10/19 18:00 116/64 12/10/19 18:00 20 Mechanical Ventilator 100 12/10/19 18:00 95 21 119/64 (82) 93 12/10/19 17:30 96 21 115/61 (79) 93 12/10/19 17:00 88 22 114/57 (76) 94 12/10/19 17:00 114/57 12/10/19 17:00 20 Mechanical Ventilator 100 12/10/19 16:49 91 26 100 12/10/19 16:30 96 19 110/54 (72) 94 12/10/19 16:00 100 12/10/19 16:00 93 19 99/56 (70) 99 12/10/19 16:00 94 12/10/19 16:00 98/52 12/10/19 16:00 20 Mechanical Ventilator 100 12/10/19 16:00 97.9 12/10/19 16:00 Mechanical Ventilator 12/10/19 15:30 94 18 105/53 (70) 99 12/10/19 15:00 91 14 110/55 (73) 98 12/10/19 15:00 107/56 12/10/19 15:00 20 Mechanical Ventilator 100 12/10/19 14:58 89 25 100 12/10/19 14:30 92 18 101/52 (68) 99 12/10/19 14:00 91 21 102/60 (74) 100 12/10/19 14:00 128/63 12/10/19 14:00 20 Mechanical Ventilator 100 12/10/19 13:30 93 20 106/55 (72) 100 12/10/19 13:01 85 22 100 12/10/19 13:00 94 20 107/57 (74) 99 12/10/19 13:00 106/55 12/10/19 13:00 20 Mechanical Ventilator 100 12/10/19 12:30 93 20 104/59 (74) 99 12/10/19 12:00 95 12/10/19 12:00 97.9 87 19 103/57 (72) 99 12/10/19 12:00 100 12/10/19 12:00 93/44 12/10/19 12:00 20 Mechanical Ventilator 100 12/10/19 12:00 Mechanical Ventilator 12/10/19 11:30 103 13 127/64 (85) 97 12/10/19 11:28 95 24 100 12/10/19 11:17 25 Mechanical Ventilator 100 12/10/19 11:00 86/43 12/10/19 11:00 20 Mechanical Ventilator 100 12/10/19 11:00 96 19 110/55 (73) 99 12/10/19 10:30 95 25 105/57 (73) 98 Intake and Output 12/10/19 12/11/19 19:00 07:00 Intake Total 532.40 ml 1099.26 ml Output Total 10 ml 2000 ml Balance 522.40 ml -900.74 ml IV Total 392.40 ml 684.26 ml Tube Feeding 140 ml 385 ml Other 30 ml Output Urine Total 10 ml 0 ml Stool Total 0 ml Hemodialysis UF 2000 ml General Appearance: other - on vent and pressors HEENT: normocephalic, atraumatic, anicteric, no JVD, other - oral - intubated Respiratory/Chest: chest wall non-tender, lungs clear Cardiovascular: normal peripheral pulses, normal rate Abdomen: normal bowel sounds, soft, non tender, no organomegaly, non distended , other - + rectal tube Genitourinary: other - + barnes - urine slt cloudy Extremities: no cyanosis Skin: no rash 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, alert, responsive Lymphatic: no neck adenopathy Musculoskeletal: no effusion Laboratory Tests 12/11/19 03:50: White Blood Count 24.2*H, Red Blood Count 3.61L, Hemoglobin 11.0L, Hematocrit 32.9L, Mean Corpuscular Volume 91, Mean Corpuscular Hemoglobin 30.5, Mean Corpuscular Hemoglobin Concent 33.4, Red Cell Distribution Width 13.0, Platelet Count 129L, Mean Platelet Volume 7.9, Neutrophils (%) (Auto) , Lymphocytes (%) ( Auto) , Monocytes (%) (Auto) , Eosinophils (%) (Auto) , Basophils (%) (Auto) , Differential Total Cells Counted 100, Neutrophils % (Manual) 90H, Lymphocytes % (Manual) 4L, Monocytes % (Manual) 5, Eosinophils % (Manual) 1, Basophils % ( Manual) 0, Band Neutrophils 0, Nucleated Red Blood Cells 1, Platelet Estimate DecreasedL, Platelet Morphology Normal, Hypochromasia 1+, Anisocytosis 1+, Prothrombin Time 11.7H, Prothromb Time International Ratio 1.1, Sodium Level 145 , Potassium Level 2.8L, Chloride Level 102, Carbon Dioxide Level 33H, Anion Gap 10, Blood Urea Nitrogen 64H, Creatinine 6.9H, Estimat Glomerular Filtration Rate 8.3, Glucose Level 115H, Calcium Level 7.9L, Magnesium Level 2.4, Total Bilirubin 2.3H, Direct Bilirubin 1.8H, Aspartate Amino Transf (AST/SGOT) 117H, Alanine Aminotransferase (ALT/SGPT) 248H, Alkaline Phosphatase 138H, Total Protein 5.6L, Albumin 2.1L, Globulin 3.5, Albumin/Globulin Ratio 0.6L, Random Vancomycin Level 18.6 12/11/19 08:17: Arterial Blood pH 7.204*L, Arterial Blood Partial Pressure CO2 82.6*H, Arterial Blood Partial Pressure O2 55.2L, Arterial Blood HCO3 31.9H, Arterial Blood Oxygen Saturation 84.8*L, Arterial Blood Base Excess 2.0, Melecio Test Positive Current Medications Medications (Trade) Dose Ordered Sig/Vicki Route PRN Reason Start Time Stop Time Status Last Admin Dose Admin Acetaminophen (Tylenol) 650 mg Q4H PRN NG Temp >100.5 12/06/19 14:15 01/05/20 14:14 12/10/19 04:34 Acetaminophen (Tylenol) 650 mg Q4H PRN RECTAL Mild Pain (Pain Scale 1-3) 12/04/19 11:45 01/03/20 11:44 12/06/19 19:17 Cefepime HCl 500 mg/Dextrose 50 ml @ 100 mls/hr Q24HRS IV 12/10/19 23:00 12/17/19 22:59 12/10/19 22:33 Chlorhexidine Gluconate (Arely-Hex 2%) 1 applic DAILY@2000 TOPIC 12/05/19 20:00 03/04/20 19:59 12/10/19 19:52 Dextrose (Dextrose 50%) 25 ml Q30M PRN IV Hypoglycemia 11/29/19 14:15 02/27/20 14:14 Dextrose (Dextrose 50%) 50 ml Q30M PRN IV Hypoglycemia 11/29/19 14:15 02/27/20 14:14 Fentanyl Citrate 2500 mcg/Sodium Chloride 250 ml @ 0 mls/hr Q24H IVPB 12/06/19 02:00 12/13/19 01:59 12/11/19 00:56 Hydralazine HCl (Apresoline) 10 mg Q4H PRN IV For High Blood Pressure 11/29/19 15:15 02/27/20 15:14 Metronidazole 100 ml @ 100 mls/hr Q8HR IVPB 12/10/19 23:00 12/17/19 22:59 12/11/19 05:42 Norepinephrine Bitartrate 16 mg/ Dextrose 566 ml @ 0 mls/hr Q24H IV 12/06/19 09:00 01/05/20 08:59 12/11/19 09:56 Ondansetron HCl (Zofran) 4 mg Q6H PRN IVP Nausea & Vomiting 11/29/19 14:15 12/29/19 14:14 Pantoprazole (Protonix) 40 mg DAILY IVP 11/30/19 12:15 12/30/19 12:14 12/11/19 09:58 Potassium Chloride 100 ml @ 50 mls/hr ONCE ONCE IVPB 12/11/19 09:30 12/11/19 11:29 12/11/19 09:57 Potassium Chloride (K-Dur) 40 meq TWICE A DAY ORAL 12/11/19 09:30 03/10/20 09:29 12/11/19 09:58 Sodium Chloride 200 ml @ 100 mls/hr Q2H IV 12/11/19 09:30 12/11/19 11:29 12/11/19 09:58 Vancomycin HCl (Firvanq) 125 mg FOUR TIMES A DAY ORAL 12/10/19 21:00 12/17/19 20:59 12/11/19 09:59 Vancomycin HCl (Vanco rx to dose) 1 ea DAILY PRN MISC Per rx protocol 12/08/19 19:30 01/07/20 19:29 Vasopressin 100 units/Sodium Chloride 100 ml @ 0 mls/hr Q24H IV 12/06/19 09:00 01/05/20 08:59 12/06/19 09:03 Sushil Cortes MD Dec 11, 2019 10:04
--- NOTE | 2019-12-11 10:20 | NUR ---
NURSE NOTES: Dr. Cortes aware of ABG results taken this morning, no verbal orders given at this time. Patient remains on AC 20, Tv: 600, FIO2:100%, Peep of 7 with saturations of 97-99%
--- NOTE | 2019-12-11 10:58 | NUR ---
CASE MANAGEMENT: REVIEW SI: COVID-19 INFECTION . PNA . INTUBATED RIGHT FEMORAL TEMP HD CATH PLACEMENT 12/04 T 98.8 HR 111 RR 28 BP 108/56 SAT 94% MECH VENT FIO2 100% WBC 24.2 H/H 11.0/32.9 K+ 2.8 BUN 64 CR 6.9 AST 117 ALT 248 ALK PHOS 138 IS: VASOPRESSIN IV Q24HR LEVOPHED IV Q24HR FENTANYL IV Q24HR HD PRN NGT FEEDING ICU STATUS DCP: PATIENT IS FROM HOME
--- NOTE | 2019-12-11 11:05 | NUR ---
NURSE NOTES: Levophed titrated to 4mcg/min for bp of 114/55 with HR at 103 in sinus tachycardia. patient remains prone with secretions noted at the bedside. Fentanyl bag changed with infusion remaining at 300mcg/hr.
--- NOTE | 2019-12-11 11:42 | Urology Progress Note ---
Assessment/Plan Status: unchanged Assessment/Plan: 1. Phimosis. 2. Retention. 3. Hematuria. 4. Pyuria. 5. Proteinuria. 6. Acute kidney injury. 7. Meatal stenosis. monitor clinically maintain barnes, placed 12/04 hand irrigate PRN monitor urine output and renal fxn consider renal imaging abx as ordered HD Subjective Allergies: Coded Allergies: No Known Allergies (Unverified , 11/29/19) Subjective remains on vent, still with minimal urine output, HD initiated Objective Last 24 Hour Vital Signs Date Time Temp Pulse Resp B/P (MAP) Pulse Ox O2 Delivery O2 Flow Rate FiO2 12/11/19 11:03 103 28 100 12/11/19 11:00 114/55 12/11/19 11:00 103 21 114/55 (74) 97 12/11/19 10:35 23 Mechanical Ventilator 100 12/11/19 10:30 106 24 114/57 (76) 96 12/11/19 10:00 110 23 113/60 (77) 98 12/11/19 09:56 118/61 12/11/19 09:30 110 25 114/58 (76) 97 12/11/19 09:00 109 22 108/58 (75) 97 12/11/19 08:30 111 22 108/56 (73) 94 12/11/19 08:00 100 12/11/19 08:00 98.8 109 22 108/60 (76) 94 12/11/19 08:00 110 12/11/19 08:00 Mechanical Ventilator 12/11/19 07:30 109 23 122/59 (80) 95 12/11/19 07:02 110 28 100 12/11/19 07:00 112/58 12/11/19 07:00 21 Mechanical Ventilator 100 12/11/19 07:00 108 21 112/58 (76) 94 12/11/19 06:30 108 27 111/58 (75) 94 12/11/19 06:15 107 27 120/60 (80) 94 12/11/19 06:00 120/62 12/11/19 06:00 24 Mechanical Ventilator 100 12/11/19 06:00 110 24 120/62 (81) 94 12/11/19 05:45 107 24 113/56 (75) 93 12/11/19 05:30 106 20 113/56 (75) 95 12/11/19 05:15 107 22 117/54 (75) 92 12/11/19 05:00 119/55 12/11/19 05:00 23 Mechanical Ventilator 100 12/11/19 05:00 108 23 119/55 (76) 86 12/11/19 04:58 105 22 109/54 (72) 86 12/11/19 04:45 109 23 117/48 (71) 86 12/11/19 04:40 111 25 100 12/11/19 04:30 108 24 117/49 (71) 75 12/11/19 04:15 22 Mechanical Ventilator 100 12/11/19 04:15 98 27 106/50 (68) 88 12/11/19 04:10 23 Mechanical Ventilator 100 12/11/19 04:00 98.9 85 24 118/59 (78) 100 12/11/19 04:00 85 12/11/19 04:00 100 12/11/19 04:00 118/59 12/11/19 04:00 24 Mechanical Ventilator 100 12/11/19 04:00 Mechanical Ventilator 12/11/19 03:55 24 Mechanical Ventilator 100 12/11/19 03:50 23 Mechanical Ventilator 100 12/11/19 03:45 96 23 122/67 (85) 100 12/11/19 03:45 24 Mechanical Ventilator 100 12/11/19 03:40 24 Mechanical Ventilator 100 12/11/19 03:35 23 Mechanical Ventilator 100 12/11/19 03:30 22 Mechanical Ventilator 100 12/11/19 03:30 83 22 125/64 (84) 100 12/11/19 03:24 93 27 100 12/11/19 03:00 121/84 12/11/19 03:00 23 Mechanical Ventilator 100 12/11/19 03:00 84 23 121/64 (83) 99 12/11/19 02:30 83 22 116/64 (81) 100 12/11/19 02:00 84 21 118/63 (81) 100 12/11/19 02:00 118/63 12/11/19 02:00 21 Mechanical Ventilator 100 12/11/19 01:30 81 21 118/62 (80) 100 12/11/19 01:20 75 25 100 12/11/19 01:00 85 24 109/60 (76) 100 12/11/19 01:00 109/60 12/11/19 01:00 24 Mechanical Ventilator 100 12/11/19 00:56 28 Mechanical Ventilator 100 12/11/19 00:30 84 21 121/65 (83) 100 12/11/19 00:00 Mechanical Ventilator 12/11/19 00:00 98.6 85 22 122/62 (82) 100 12/11/19 00:00 85 12/11/19 00:00 122/62 12/11/19 00:00 22 Mechanical Ventilator 100 12/11/19 00:00 100 12/10/19 23:48 92 26 100 12/10/19 23:30 93 19 110/59 (76) 100 12/10/19 23:00 93 24 132/67 (88) 100 12/10/19 23:00 133/67 12/10/19 23:00 24 Mechanical Ventilator 100 12/10/19 22:30 90 24 129/66 (87) 100 12/10/19 22:00 82 24 118/71 (87) 100 12/10/19 22:00 118/71 12/10/19 22:00 24 Mechanical Ventilator 100 12/10/19 21:45 83 24 119/71 (87) 100 12/10/19 21:30 84 21 118/70 (86) 99 12/10/19 21:16 77 26 100 12/10/19 21:15 87 21 95/59 (71) 98 12/10/19 21:00 106/63 12/10/19 21:00 20 Mechanical Ventilator 100 12/10/19 21:00 88 20 106/63 (77) 98 12/10/19 20:45 89 22 103/62 (76) 99 12/10/19 20:30 95 22 104/62 (76) 98 12/10/19 20:15 99 24 105/60 (75) 98 12/10/19 20:00 Mechanical Ventilator 12/10/19 20:00 100 12/10/19 20:00 97.5 98 28 113/59 (77) 96 12/10/19 20:00 113/59 12/10/19 20:00 28 Mechanical Ventilator 100 12/10/19 20:00 99 26 100 12/10/19 19:55 101 23 132/59 (83) 93 12/10/19 19:45 103 26 123/62 (82) 94 12/10/19 19:30 102 24 116/63 (80) 94 12/10/19 19:16 100 12/10/19 19:00 116/63 12/10/19 19:00 24 Non-Rebreather 100 12/10/19 19:00 99 23 118/64 (82) 94 12/10/19 18:00 116/64 12/10/19 18:00 20 Mechanical Ventilator 100 12/10/19 18:00 95 21 119/64 (82) 93 12/10/19 17:30 96 21 115/61 (79) 93 12/10/19 17:00 88 22 114/57 (76) 94 12/10/19 17:00 114/57 12/10/19 17:00 20 Mechanical Ventilator 100 12/10/19 16:49 91 26 100 12/10/19 16:30 96 19 110/54 (72) 94 12/10/19 16:00 100 12/10/19 16:00 93 19 99/56 (70) 99 12/10/19 16:00 94 12/10/19 16:00 98/52 12/10/19 16:00 20 Mechanical Ventilator 100 12/10/19 16:00 97.9 12/10/19 16:00 Mechanical Ventilator 12/10/19 15:30 94 18 105/53 (70) 99 12/10/19 15:00 91 14 110/55 (73) 98 12/10/19 15:00 107/56 12/10/19 15:00 20 Mechanical Ventilator 100 12/10/19 14:58 89 25 100 12/10/19 14:30 92 18 101/52 (68) 99 12/10/19 14:00 91 21 102/60 (74) 100 12/10/19 14:00 128/63 12/10/19 14:00 20 Mechanical Ventilator 100 12/10/19 13:30 93 20 106/55 (72) 100 12/10/19 13:01 85 22 100 12/10/19 13:00 94 20 107/57 (74) 99 12/10/19 13:00 106/55 12/10/19 13:00 20 Mechanical Ventilator 100 12/10/19 12:30 93 20 104/59 (74) 99 12/10/19 12:00 95 12/10/19 12:00 97.9 87 19 103/57 (72) 99 12/10/19 12:00 100 12/10/19 12:00 93/44 12/10/19 12:00 20 Mechanical Ventilator 100 12/10/19 12:00 Mechanical Ventilator Intake and Output 12/10/19 12/11/19 19:00 07:00 Intake Total 532.40 ml 1099.26 ml Output Total 10 ml 2000 ml Balance 522.40 ml -900.74 ml IV Total 392.40 ml 684.26 ml Tube Feeding 140 ml 385 ml Other 30 ml Output Urine Total 10 ml 0 ml Stool Total 0 ml Hemodialysis UF 2000 ml Microbiology Date/Time Source Procedure Growth Status 12/04/19 12:46 Blood Blood Culture - Final NO GROWTH AFTER 5 DAYS Complete 12/04/19 23:00 Sputum Gram Stain - Final Complete 12/04/19 23:00 Sputum Sputum Culture - Final NORMAL UPPER RESPIRATORY ALISIA PRESENT Complete 12/05/19 02:24 Urine,Clean Catch Urine Culture - Final NO GROWTH AFTER 48 HOURS Complete Current Medications Medications (Trade) Dose Ordered Sig/Vicki Route PRN Reason Start Time Stop Time Status Last Admin Dose Admin Acetaminophen (Tylenol) 650 mg Q4H PRN NG Temp >100.5 12/06/19 14:15 01/05/20 14:14 12/10/19 04:34 Acetaminophen (Tylenol) 650 mg Q4H PRN RECTAL Mild Pain (Pain Scale 1-3) 12/04/19 11:45 01/03/20 11:44 12/06/19 19:17 Cefepime HCl 500 mg/Dextrose 50 ml @ 100 mls/hr Q24HRS IV 12/10/19 23:00 12/17/19 22:59 12/10/19 22:33 Chlorhexidine Gluconate (Arely-Hex 2%) 1 applic DAILY@2000 TOPIC 12/05/19 20:00 03/04/20 19:59 12/10/19 19:52 Dextrose (Dextrose 50%) 25 ml Q30M PRN IV Hypoglycemia 11/29/19 14:15 02/27/20 14:14 Dextrose (Dextrose 50%) 50 ml Q30M PRN IV Hypoglycemia 11/29/19 14:15 02/27/20 14:14 Fentanyl Citrate 2500 mcg/Sodium Chloride 250 ml @ 0 mls/hr Q24H IVPB 12/06/19 02:00 12/13/19 01:59 12/11/19 10:35 Hydralazine HCl (Apresoline) 10 mg Q4H PRN IV For High Blood Pressure 11/29/19 15:15 02/27/20 15:14 Metronidazole 100 ml @ 100 mls/hr Q8HR IVPB 12/10/19 23:00 12/17/19 22:59 12/11/19 05:42 Norepinephrine Bitartrate 16 mg/ Dextrose 566 ml @ 0 mls/hr Q24H IV 12/06/19 09:00 01/05/20 08:59 12/11/19 09:56 Ondansetron HCl (Zofran) 4 mg Q6H PRN IVP Nausea & Vomiting 11/29/19 14:15 12/29/19 14:14 Pantoprazole (Protonix) 40 mg DAILY IVP 11/30/19 12:15 12/30/19 12:14 12/11/19 09:58 Potassium Chloride (K-Dur) 40 meq TWICE A DAY ORAL 12/11/19 09:30 03/10/20 09:29 12/11/19 09:58 Vancomycin HCl (Firvanq) 125 mg FOUR TIMES A DAY ORAL 12/10/19 21:00 12/17/19 20:59 12/11/19 09:59 Vancomycin HCl (Vanco rx to dose) 1 ea DAILY PRN MISC Per rx protocol 12/08/19 19:30 01/07/20 19:29 Vasopressin 100 units/Sodium Chloride 100 ml @ 0 mls/hr Q24H IV 12/06/19 09:00 01/05/20 08:59 12/06/19 09:03 Laboratory Tests 12/11/19 03:50: White Blood Count 24.2*H, Red Blood Count 3.61L, Hemoglobin 11.0L, Hematocrit 32.9L, Mean Corpuscular Volume 91, Mean Corpuscular Hemoglobin 30.5, Mean Corpuscular Hemoglobin Concent 33.4, Red Cell Distribution Width 13.0, Platelet Count 129L, Mean Platelet Volume 7.9, Neutrophils (%) (Auto) , Lymphocytes (%) ( Auto) , Monocytes (%) (Auto) , Eosinophils (%) (Auto) , Basophils (%) (Auto) , Differential Total Cells Counted 100, Neutrophils % (Manual) 90H, Lymphocytes % (Manual) 4L, Monocytes % (Manual) 5, Eosinophils % (Manual) 1, Basophils % ( Manual) 0, Band Neutrophils 0, Nucleated Red Blood Cells 1, Platelet Estimate DecreasedL, Platelet Morphology Normal, Hypochromasia 1+, Anisocytosis 1+, Prothrombin Time 11.7H, Prothromb Time International Ratio 1.1, Sodium Level 145 , Potassium Level 2.8L, Chloride Level 102, Carbon Dioxide Level 33H, Anion Gap 10, Blood Urea Nitrogen 64H, Creatinine 6.9H, Estimat Glomerular Filtration Rate 8.3, Glucose Level 115H, Calcium Level 7.9L, Magnesium Level 2.4, Total Bilirubin 2.3H, Direct Bilirubin 1.8H, Aspartate Amino Transf (AST/SGOT) 117H, Alanine Aminotransferase (ALT/SGPT) 248H, Alkaline Phosphatase 138H, Total Protein 5.6L, Albumin 2.1L, Globulin 3.5, Albumin/Globulin Ratio 0.6L, Random Vancomycin Level 18.6 12/11/19 08:17: Arterial Blood pH 7.204*L, Arterial Blood Partial Pressure CO2 82.6*H, Arterial Blood Partial Pressure O2 55.2L, Arterial Blood HCO3 31.9H, Arterial Blood Oxygen Saturation 84.8*L, Arterial Blood Base Excess 2.0, Melecio Test Positive Height (Feet): 5 Height (Inches): 6.00 Weight (Pounds): 177 Objective stable no bleeding at prepuce barnes indwelling, marge urine Kai Berger MD Dec 11, 2019 11:42
--- NOTE | 2019-12-11 12:18 | Cardiac Electrophysiology PN ---
Assessment/Plan Assessment/Plan 1. Atrial fib with RVR 170 right before intubation on 12/04/19. Converted to Sinus tach after intubation. Troponin 0.77. No further atrial fib 2. Sinus Tachycardia due to respiratory failure and COVID-19 pneumonia. On IV antibiotic per ID. Echocardiogram after Covid negative. Completed hydroxychloroquine. 3. Septic shock. On Levophed 4 Mcg and iv Abx. 4. Respiratory failure, on the Vent by Dr. Cortes. 100% Fio2 PEEP 10 and is proned 5. Acute renal failure. HD per Dr. Sanchez via V [place] 6. Full code DW RN Subjective Subjective Intubated in ICU on 100% Fio2 and PEEP 10 on Levo 4 mcg and is proned. H Atrial fib with RVR 160s on 12/04/19 but no recurrence. In SR Had HD 2 liters out yesterday Objective Last 24 Hour Vital Signs Date Time Temp Pulse Resp B/P (MAP) Pulse Ox O2 Delivery O2 Flow Rate FiO2 12/11/19 11:03 103 28 100 12/11/19 11:00 114/55 12/11/19 11:00 103 21 114/55 (74) 97 12/11/19 10:35 23 Mechanical Ventilator 100 12/11/19 10:30 106 24 114/57 (76) 96 12/11/19 10:00 110 23 113/60 (77) 98 12/11/19 09:56 118/61 12/11/19 09:30 110 25 114/58 (76) 97 12/11/19 09:00 109 22 108/58 (75) 97 12/11/19 08:30 111 22 108/56 (73) 94 12/11/19 08:00 100 12/11/19 08:00 98.8 109 22 108/60 (76) 94 12/11/19 08:00 110 12/11/19 08:00 Mechanical Ventilator 12/11/19 07:30 109 23 122/59 (80) 95 12/11/19 07:02 110 28 100 12/11/19 07:00 112/58 12/11/19 07:00 21 Mechanical Ventilator 100 12/11/19 07:00 108 21 112/58 (76) 94 12/11/19 06:30 108 27 111/58 (75) 94 12/11/19 06:15 107 27 120/60 (80) 94 12/11/19 06:00 120/62 12/11/19 06:00 24 Mechanical Ventilator 100 12/11/19 06:00 110 24 120/62 (81) 94 12/11/19 05:45 107 24 113/56 (75) 93 12/11/19 05:30 106 20 113/56 (75) 95 12/11/19 05:15 107 22 117/54 (75) 92 12/11/19 05:00 119/55 12/11/19 05:00 23 Mechanical Ventilator 100 12/11/19 05:00 108 23 119/55 (76) 86 12/11/19 04:58 105 22 109/54 (72) 86 12/11/19 04:45 109 23 117/48 (71) 86 12/11/19 04:40 111 25 100 12/11/19 04:30 108 24 117/49 (71) 75 12/11/19 04:15 22 Mechanical Ventilator 100 12/11/19 04:15 98 27 106/50 (68) 88 12/11/19 04:10 23 Mechanical Ventilator 100 12/11/19 04:00 98.9 85 24 118/59 (78) 100 12/11/19 04:00 85 12/11/19 04:00 100 12/11/19 04:00 118/59 12/11/19 04:00 24 Mechanical Ventilator 100 12/11/19 04:00 Mechanical Ventilator 12/11/19 03:55 24 Mechanical Ventilator 100 12/11/19 03:50 23 Mechanical Ventilator 100 12/11/19 03:45 96 23 122/67 (85) 100 12/11/19 03:45 24 Mechanical Ventilator 100 12/11/19 03:40 24 Mechanical Ventilator 100 12/11/19 03:35 23 Mechanical Ventilator 100 12/11/19 03:30 22 Mechanical Ventilator 100 12/11/19 03:30 83 22 125/64 (84) 100 12/11/19 03:24 93 27 100 12/11/19 03:00 121/84 12/11/19 03:00 23 Mechanical Ventilator 100 12/11/19 03:00 84 23 121/64 (83) 99 12/11/19 02:30 83 22 116/64 (81) 100 12/11/19 02:00 84 21 118/63 (81) 100 12/11/19 02:00 118/63 12/11/19 02:00 21 Mechanical Ventilator 100 12/11/19 01:30 81 21 118/62 (80) 100 12/11/19 01:20 75 25 100 12/11/19 01:00 85 24 109/60 (76) 100 12/11/19 01:00 109/60 12/11/19 01:00 24 Mechanical Ventilator 100 12/11/19 00:56 28 Mechanical Ventilator 100 12/11/19 00:30 84 21 121/65 (83) 100 12/11/19 00:00 Mechanical Ventilator 12/11/19 00:00 98.6 85 22 122/62 (82) 100 12/11/19 00:00 85 12/11/19 00:00 122/62 12/11/19 00:00 22 Mechanical Ventilator 100 12/11/19 00:00 100 12/10/19 23:48 92 26 100 12/10/19 23:30 93 19 110/59 (76) 100 12/10/19 23:00 93 24 132/67 (88) 100 12/10/19 23:00 133/67 12/10/19 23:00 24 Mechanical Ventilator 100 12/10/19 22:30 90 24 129/66 (87) 100 12/10/19 22:00 82 24 118/71 (87) 100 12/10/19 22:00 118/71 12/10/19 22:00 24 Mechanical Ventilator 100 12/10/19 21:45 83 24 119/71 (87) 100 12/10/19 21:30 84 21 118/70 (86) 99 12/10/19 21:16 77 26 100 12/10/19 21:15 87 21 95/59 (71) 98 12/10/19 21:00 106/63 12/10/19 21:00 20 Mechanical Ventilator 100 12/10/19 21:00 88 20 106/63 (77) 98 12/10/19 20:45 89 22 103/62 (76) 99 12/10/19 20:30 95 22 104/62 (76) 98 12/10/19 20:15 99 24 105/60 (75) 98 12/10/19 20:00 Mechanical Ventilator 12/10/19 20:00 100 4/28/20 20:00 97.5 98 28 113/59 (77) 96 12/10/19 20:00 113/59 12/10/19 20:00 28 Mechanical Ventilator 100 12/10/19 20:00 99 26 100 12/10/19 19:55 101 23 132/59 (83) 93 12/10/19 19:45 103 26 123/62 (82) 94 12/10/19 19:30 102 24 116/63 (80) 94 12/10/19 19:16 100 12/10/19 19:00 116/63 12/10/19 19:00 24 Non-Rebreather 100 12/10/19 19:00 99 23 118/64 (82) 94 12/10/19 18:00 116/64 12/10/19 18:00 20 Mechanical Ventilator 100 12/10/19 18:00 95 21 119/64 (82) 93 12/10/19 17:30 96 21 115/61 (79) 93 12/10/19 17:00 88 22 114/57 (76) 94 12/10/19 17:00 114/57 12/10/19 17:00 20 Mechanical Ventilator 100 12/10/19 16:49 91 26 100 12/10/19 16:30 96 19 110/54 (72) 94 12/10/19 16:00 100 12/10/19 16:00 93 19 99/56 (70) 99 12/10/19 16:00 94 12/10/19 16:00 98/52 12/10/19 16:00 20 Mechanical Ventilator 100 12/10/19 16:00 97.9 12/10/19 16:00 Mechanical Ventilator 12/10/19 15:30 94 18 105/53 (70) 99 12/10/19 15:00 91 14 110/55 (73) 98 12/10/19 15:00 107/56 12/10/19 15:00 20 Mechanical Ventilator 100 12/10/19 14:58 89 25 100 12/10/19 14:30 92 18 101/52 (68) 99 12/10/19 14:00 91 21 102/60 (74) 100 12/10/19 14:00 128/63 12/10/19 14:00 20 Mechanical Ventilator 100 12/10/19 13:30 93 20 106/55 (72) 100 12/10/19 13:01 85 22 100 12/10/19 13:00 94 20 107/57 (74) 99 12/10/19 13:00 106/55 12/10/19 13:00 20 Mechanical Ventilator 100 12/10/19 12:30 93 20 104/59 (74) 99 Intake and Output 12/10/19 12/11/19 19:00 07:00 Intake Total 532.40 ml 1099.26 ml Output Total 10 ml 2000 ml Balance 522.40 ml -900.74 ml IV Total 392.40 ml 684.26 ml Tube Feeding 140 ml 385 ml Other 30 ml Output Urine Total 10 ml 0 ml Stool Total 0 ml Hemodialysis UF 2000 ml Laboratory Tests Test 12/11/19 03:50 12/11/19 08:17 White Blood Count 24.2 K/UL (4.8-10.8) *H Red Blood Count 3.61 M/UL (4.70-6.10) L Hemoglobin 11.0 G/DL (14.2-18.0) L Hematocrit 32.9 % (42.0-52.0) L Mean Corpuscular Volume 91 FL (80-99) Mean Corpuscular Hemoglobin 30.5 PG (27.0-31.0) Mean Corpuscular Hemoglobin Concent 33.4 G/DL (32.0-36.0) Red Cell Distribution Width 13.0 % (11.6-14.8) Platelet Count 129 K/UL (150-450) L Mean Platelet Volume 7.9 FL (6.5-10.1) Neutrophils (%) (Auto) % (45.0-75.0) Lymphocytes (%) (Auto) % (20.0-45.0) Monocytes (%) (Auto) % (1.0-10.0) Eosinophils (%) (Auto) % (0.0-3.0) Basophils (%) (Auto) % (0.0-2.0) Differential Total Cells Counted 100 Neutrophils % (Manual) 90 % (45-75) H Lymphocytes % (Manual) 4 % (20-45) L Monocytes % (Manual) 5 % (1-10) Eosinophils % (Manual) 1 % (0-3) Basophils % (Manual) 0 % (0-2) Band Neutrophils 0 % (0-8) Nucleated Red Blood Cells 1 /100 WBC Platelet Estimate Decreased L Platelet Morphology Normal Hypochromasia 1+ Anisocytosis 1+ Prothrombin Time 11.7 SEC (9.30-11.50) H Prothromb Time International Ratio 1.1 (0.9-1.1) Sodium Level 145 MMOL/L (136-145) Potassium Level 2.8 MMOL/L (3.5-5.1) L Chloride Level 102 MMOL/L (98-107) Carbon Dioxide Level 33 MMOL/L (21-32) H Anion Gap 10 mmol/L (5-15) Blood Urea Nitrogen 64 mg/dL (7-18) H Creatinine 6.9 MG/DL (0.55-1.30) H Estimat Glomerular Filtration Rate 8.3 mL/min (>60) Glucose Level 115 MG/DL (74-106) H Calcium Level 7.9 MG/DL (8.5-10.1) L Magnesium Level 2.4 MG/DL (1.8-2.4) Total Bilirubin 2.3 MG/DL (0.2-1.0) H Direct Bilirubin 1.8 MG/DL (0.0-0.3) H Aspartate Amino Transf (AST/SGOT) 117 U/L (15-37) H Alanine Aminotransferase (ALT/SGPT) 248 U/L (12-78) H Alkaline Phosphatase 138 U/L (46-116) H Total Protein 5.6 G/DL (6.4-8.2) L Albumin 2.1 G/DL (3.4-5.0) L Globulin 3.5 g/dL Albumin/Globulin Ratio 0.6 (1.0-2.7) L Random Vancomycin Level 18.6 ug/mL Arterial Blood pH 7.204 (7.350-7.450) Arterial Blood Partial Pressure CO2 82.6 mmHg (35.0-45.0) *H Arterial Blood Partial Pressure O2 55.2 mmHg (75.0-100.0) L Arterial Blood HCO3 31.9 mmol/L (22.0-26.0) H Arterial Blood Oxygen Saturation 84.8 % (95-100) *L Arterial Blood Base Excess 2.0 (-2-2) Melecio Test Positive Objective HEAD AND NECK: Orally intubated No JVD LUNGS: Decreased breath sounds. Coarse rhonchi. CARDIOVASCULAR: Tachycardic S1 and S2 with no gallop. ABDOMEN: Soft. EXTREMITIES: 1 plus pitting edema. RFV [place] in place Raul Appiah MD Dec 11, 2019 12:18
--- NOTE | 2019-12-11 13:10 | NUR ---
NURSE NOTES: Dr. Agosto updated on patient condition at the bedside, no verbal orders given at this time.
--- NOTE | 2019-12-11 13:54 | Nephrology Progress Note ---
Assessment/Plan Plan #ALBARO- concerns for developing ischemic ATN in the setting of sepsis- r/o vanco toxicity - r/o COVID nephropathy - now with likely ATN #Hyperkalemia due to renal insuffiency - exacerbated by acidosis #COID sepsis #COVID pneumonia #hypoxemic respiratary failure #HTN- now in shock #mediastinal PTX - next HD today - order placed- UF as tolerated- 3L - monitor I&Os - daily weights - monitor lytes closely - proned - GOALS of care discussion - continue pressor support to maintain MAP > 65- continue vaso and levo - continue fentanyl dip - abx per ID- on vanco and cefepime, flagyl - vent management per pulm -Abd Xray shows mediastinal PTX - too high risk for thorocotomy Subjective ROS Limited/Unobtainable: Yes Subjective s/p HD yesterday with 2l UF chest xray with vascular congestion plan for HD today again remains oliguric on Fio2 100 remains on levo and vaso drips Abd Xray shows mediastinal PTX On fentanyl drip Objective Objective Last 24 Hour Vital Signs Date Time Temp Pulse Resp B/P (MAP) Pulse Ox O2 Delivery O2 Flow Rate FiO2 12/11/19 12:30 96 21 109/60 (76) 98 12/11/19 12:00 99 12/11/19 12:00 Mechanical Ventilator 12/11/19 12:00 98.0 96 22 113/62 (79) 99 12/11/19 12:00 100 12/11/19 11:03 103 28 100 12/11/19 11:00 114/55 12/11/19 11:00 103 21 114/55 (74) 97 12/11/19 10:35 23 Mechanical Ventilator 100 12/11/19 10:30 106 24 114/57 (76) 96 12/11/19 10:00 110 23 113/60 (77) 98 12/11/19 09:56 118/61 12/11/19 09:30 110 25 114/58 (76) 97 12/11/19 09:00 109 22 108/58 (75) 97 12/11/19 08:30 111 22 108/56 (73) 94 12/11/19 08:00 100 12/11/19 08:00 98.8 109 22 108/60 (76) 94 12/11/19 08:00 110 12/11/19 08:00 Mechanical Ventilator 12/11/19 07:30 109 23 122/59 (80) 95 12/11/19 07:02 110 28 100 12/11/19 07:00 112/58 12/11/19 07:00 21 Mechanical Ventilator 100 12/11/19 07:00 108 21 112/58 (76) 94 12/11/19 06:30 108 27 111/58 (75) 94 12/11/19 06:15 107 27 120/60 (80) 94 12/11/19 06:00 120/62 12/11/19 06:00 24 Mechanical Ventilator 100 12/11/19 06:00 110 24 120/62 (81) 94 12/11/19 05:45 107 24 113/56 (75) 93 12/11/19 05:30 106 20 113/56 (75) 95 12/11/19 05:15 107 22 117/54 (75) 92 12/11/19 05:00 119/55 12/11/19 05:00 23 Mechanical Ventilator 100 12/11/19 05:00 108 23 119/55 (76) 86 12/11/19 04:58 105 22 109/54 (72) 86 12/11/19 04:45 109 23 117/48 (71) 86 12/11/19 04:40 111 25 100 12/11/19 04:30 108 24 117/49 (71) 75 12/11/19 04:15 22 Mechanical Ventilator 100 12/11/19 04:15 98 27 106/50 (68) 88 12/11/19 04:10 23 Mechanical Ventilator 100 12/11/19 04:00 98.9 85 24 118/59 (78) 100 12/11/19 04:00 85 12/11/19 04:00 100 12/11/19 04:00 118/59 12/11/19 04:00 24 Mechanical Ventilator 100 12/11/19 04:00 Mechanical Ventilator 12/11/19 03:55 24 Mechanical Ventilator 100 12/11/19 03:50 23 Mechanical Ventilator 100 12/11/19 03:45 96 23 122/67 (85) 100 12/11/19 03:45 24 Mechanical Ventilator 100 12/11/19 03:40 24 Mechanical Ventilator 100 12/11/19 03:35 23 Mechanical Ventilator 100 4/29/20 03:30 22 Mechanical Ventilator 100 12/11/19 03:30 83 22 125/64 (84) 100 12/11/19 03:24 93 27 100 12/11/19 03:00 121/84 12/11/19 03:00 23 Mechanical Ventilator 100 12/11/19 03:00 84 23 121/64 (83) 99 12/11/19 02:30 83 22 116/64 (81) 100 12/11/19 02:00 84 21 118/63 (81) 100 12/11/19 02:00 118/63 12/11/19 02:00 21 Mechanical Ventilator 100 12/11/19 01:30 81 21 118/62 (80) 100 12/11/19 01:20 75 25 100 12/11/19 01:00 85 24 109/60 (76) 100 12/11/19 01:00 109/60 12/11/19 01:00 24 Mechanical Ventilator 100 12/11/19 00:56 28 Mechanical Ventilator 100 12/11/19 00:30 84 21 121/65 (83) 100 12/11/19 00:00 Mechanical Ventilator 12/11/19 00:00 98.6 85 22 122/62 (82) 100 12/11/19 00:00 85 12/11/19 00:00 122/62 12/11/19 00:00 22 Mechanical Ventilator 100 12/11/19 00:00 100 12/10/19 23:48 92 26 100 12/10/19 23:30 93 19 110/59 (76) 100 12/10/19 23:00 93 24 132/67 (88) 100 12/10/19 23:00 133/67 12/10/19 23:00 24 Mechanical Ventilator 100 12/10/19 22:30 90 24 129/66 (87) 100 12/10/19 22:00 82 24 118/71 (87) 100 12/10/19 22:00 118/71 12/10/19 22:00 24 Mechanical Ventilator 100 12/10/19 21:45 83 24 119/71 (87) 100 12/10/19 21:30 84 21 118/70 (86) 99 12/10/19 21:16 77 26 100 12/10/19 21:15 87 21 95/59 (71) 98 12/10/19 21:00 106/63 12/10/19 21:00 20 Mechanical Ventilator 100 12/10/19 21:00 88 20 106/63 (77) 98 12/10/19 20:45 89 22 103/62 (76) 99 12/10/19 20:30 95 22 104/62 (76) 98 12/10/19 20:15 99 24 105/60 (75) 98 12/10/19 20:00 Mechanical Ventilator 12/10/19 20:00 100 12/10/19 20:00 97.5 98 28 113/59 (77) 96 12/10/19 20:00 113/59 12/10/19 20:00 28 Mechanical Ventilator 100 12/10/19 20:00 99 26 100 12/10/19 19:55 101 23 132/59 (83) 93 12/10/19 19:45 103 26 123/62 (82) 94 12/10/19 19:30 102 24 116/63 (80) 94 12/10/19 19:16 100 12/10/19 19:00 116/63 12/10/19 19:00 24 Non-Rebreather 100 12/10/19 19:00 99 23 118/64 (82) 94 12/10/19 18:00 116/64 12/10/19 18:00 20 Mechanical Ventilator 100 12/10/19 18:00 95 21 119/64 (82) 93 12/10/19 17:30 96 21 115/61 (79) 93 12/10/19 17:00 88 22 114/57 (76) 94 12/10/19 17:00 114/57 12/10/19 17:00 20 Mechanical Ventilator 100 12/10/19 16:49 91 26 100 12/10/19 16:30 96 19 110/54 (72) 94 12/10/19 16:00 100 12/10/19 16:00 93 19 99/56 (70) 99 12/10/19 16:00 94 12/10/19 16:00 98/52 12/10/19 16:00 20 Mechanical Ventilator 100 12/10/19 16:00 97.9 12/10/19 16:00 Mechanical Ventilator 12/10/19 15:30 94 18 105/53 (70) 99 12/10/19 15:00 91 14 110/55 (73) 98 12/10/19 15:00 107/56 12/10/19 15:00 20 Mechanical Ventilator 100 12/10/19 14:58 89 25 100 12/10/19 14:30 92 18 101/52 (68) 99 12/10/19 14:00 91 21 102/60 (74) 100 12/10/19 14:00 128/63 12/10/19 14:00 20 Mechanical Ventilator 100 Intake and Output 12/10/19 12/11/19 19:00 07:00 Intake Total 532.40 ml 1099.26 ml Output Total 10 ml 2000 ml Balance 522.40 ml -900.74 ml IV Total 392.40 ml 684.26 ml Tube Feeding 140 ml 385 ml Other 30 ml Output Urine Total 10 ml 0 ml Stool Total 0 ml Hemodialysis UF 2000 ml Laboratory Tests 12/11/19 03:50: White Blood Count 24.2*H, Red Blood Count 3.61L, Hemoglobin 11.0L, Hematocrit 32.9L, Mean Corpuscular Volume 91, Mean Corpuscular Hemoglobin 30.5, Mean Corpuscular Hemoglobin Concent 33.4, Red Cell Distribution Width 13.0, Platelet Count 129L, Mean Platelet Volume 7.9, Neutrophils (%) (Auto) , Lymphocytes (%) ( Auto) , Monocytes (%) (Auto) , Eosinophils (%) (Auto) , Basophils (%) (Auto) , Differential Total Cells Counted 100, Neutrophils % (Manual) 90H, Lymphocytes % (Manual) 4L, Monocytes % (Manual) 5, Eosinophils % (Manual) 1, Basophils % ( Manual) 0, Band Neutrophils 0, Nucleated Red Blood Cells 1, Platelet Estimate DecreasedL, Platelet Morphology Normal, Hypochromasia 1+, Anisocytosis 1+, Prothrombin Time 11.7H, Prothromb Time International Ratio 1.1, Sodium Level 145 , Potassium Level 2.8L, Chloride Level 102, Carbon Dioxide Level 33H, Anion Gap 10, Blood Urea Nitrogen 64H, Creatinine 6.9H, Estimat Glomerular Filtration Rate 8.3, Glucose Level 115H, Calcium Level 7.9L, Magnesium Level 2.4, Total Bilirubin 2.3H, Direct Bilirubin 1.8H, Aspartate Amino Transf (AST/SGOT) 117H, Alanine Aminotransferase (ALT/SGPT) 248H, Alkaline Phosphatase 138H, Total Protein 5.6L, Albumin 2.1L, Globulin 3.5, Albumin/Globulin Ratio 0.6L, Random Vancomycin Level 18.6 12/11/19 08:17: Arterial Blood pH 7.204*L, Arterial Blood Partial Pressure CO2 82.6*H, Arterial Blood Partial Pressure O2 55.2L, Arterial Blood HCO3 31.9H, Arterial Blood Oxygen Saturation 84.8*L, Arterial Blood Base Excess 2.0, Melecio Test Positive Height (Feet): 5 Height (Inches): 6.00 Weight (Pounds): 177 Objective General Appearance: other - intubated- proned Lines, tubes and drains: central line HEENT: normocephalic, atraumatic Respiratory/Chest: rhonchi - bilaterally Cardiovascular/Chest: other - tachycardic Extremities: pitting Dorian Soriano M.D. Dec 11, 2019 13:54
--- NOTE | 2019-12-11 14:30 | NUR ---
NURSE NOTES: Dr. Soriano rounded and called to have patient hemodialyses this afternoon. no other verbal orders given.
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
--- NOTE | 2019-12-11 18:00 | NUR ---
NURSE NOTES: Hemodialysis nurse at the bedside, patient stable with Blood pressure in the 100-110 systolic.
[2019-12-11] MEDS ORDERED: Midodrine 10mg tab ORAL SCH (18:30)
--- NOTE | 2019-12-11 19:24 | NUR ---
HAND-OFF: Report given to DARYA Lr.
--- NOTE | 2019-12-11 19:29 | NUR ---
NURSE NOTES: ONGOING DIALYSIS STATUS.
--- NOTE | 2019-12-11 19:55 | NUR ---
NURSE NOTES: LE: PATIENT SEDATED, ON ETT TO VENT AC20/TV500/FIO2 90%/PEEP7, O2 SATURATION 95% NOTED, HEART RATE 1000'S/MIN ST, NGT TO LEFT NARES, INTACT AND PATENT,ONGOING NEPRO AT 35ML/HR, HOB 30 DEGREES, RECTAL TUBE INTACT, SEEN DARK GREENISH STOOL IN THE LINE, F/C INTACT AND PATENT, ANURIC STATUS, YESI CATHETER W/PIG TAIL TO RIGHT FEMORAL AND PPL TO LEFT WRIST, ONGOING FENTANYL 300MCG/HR AND LEVOPHED 16MCG/MIN VIA YESI W/ PIGTAIL, LOWER BED POSITION, ON BED ALARM AND LOCKED STATUS, COOLING BLANKET STATUS, WILL CONTINUE TO MONITOR. ONGOING DIALYSIS STATUS. Addendum: 12/11/19 at 2332 by DREW HOPPER RN NURSE NOTES: LE: PATIENT SEDATED, ON ETT TO VENT AC20/TV500/FIO2 90%/PEEP7, O2 SATURATION 95% NOTED, HEART RATE 1000'S/MIN ST, NGT TO LEFT NARES, INTACT AND PATENT,ONGOING NEPRO AT 35ML/HR, HOB 30 DEGREES, RECTAL TUBE INTACT, SEEN DARK GREENISH STOOL IN THE LINE, F/C INTACT AND PATENT, ANURIC STATUS, YESI CATHETER W/PIG TAIL TO RIGHT FEMORAL AND PPL TO LEFT WRIST, ONGOING FENTANYL 300MCG/HR AND LEVOPHED 18MCG/MIN VIA YESI W/ PIGTAIL, LOWER BED POSITION, ON BED ALARM AND LOCKED STATUS, COOLING BLANKET STATUS, WILL CONTINUE TO MONITOR. ONGOING DIALYSIS STATUS.
[2019-12-11] MEDS: Dyna-Hex 2% Top Sol 2oz TOPIC SCH (20:04)
--- NOTE | 2019-12-11 20:25 | NUR ---
NURSE NOTES: LE: FINISHED DIALYSIS, 3000ML WAS REMOVED.
--- NOTE | 2019-12-11 22:50 | NUR ---
NURSE NOTES: OBTAINED SPECIMEN OF STOOL C-DIFF AND SPUTUM C/S, WILL SEND TO LAB. PATIENT SEDATED, RASS SCORE -2, NO PAIN OR SOB NOTED, O2 SATURATION 100% AT THIS TIME.
[2019-12-12] VITALS (37 sets, daily range): BP systolic 86–145; BP diastolic 53–119
--- NOTE | 2019-12-12 00:15 | NUR ---
NURSE NOTES: ONGOING NEPRO 35ML/HR, TOLERATED FEEDING, WILL CONTINUE TO MONITOR.
--- NOTE | 2019-12-12 02:09 | NUR ---
NURSE NOTES: VSS, NO ACUTE DISTRESS NOTED AT THIS TIME.
[2019-12-12] MEDS: fentaNYL Citrate 2,500 MCG in NS 200 ML IVPB SCH ×3 (03:53→22:15)
--- NOTE | 2019-12-12 04:10 | NUR ---
NURSE NOTES: LE; MADE PRONE POSITION ORDER, HEART RATE GOES UP TO 108/MIN ST WHEN REPOSITION, O2 SATURATION OVER 96% NOTED AT THAT TIME.
[2019-12-12 06:00] LABS: HEMATOCRIT 32.7 % (42.0-52.0); HEMOGLOBIN 10.8 G/DL (14.2-18.0); MEAN CORPUSCULAR VOLUME 92 FL (80-99); PLATELET COUNT 140 K/UL (150-450); RED BLOOD COUNT 3.56 M/UL (4.70-6.10); RED CELL DISTRIBUTION WIDTH 13.2 % (11.6-14.8)
--- NOTE | 2019-12-12 06:10 | NUR ---
NURSE NOTES: SEDATED STATUS, ONGOING LEVOPHED 12MCG/MIN AND FENTANYL 300MCG/HR STA Addendum: 12/12/19 at 0625 shannon HOPPER RN NURSE NOTES: SEDATED STATUS, ONGOING LEVOPHED 12MCG/MIN AND FENTANYL 300MCG/HR STATUS, NO ACUTE DISTRESS NOTED AT THIS SHIFT.
[2019-12-12 06:12] LABS: WHITE BLOOD COUNT 23.9 K/UL (4.8-10.8)
[2019-12-12 06:29] LABS: ALANINE AMINOTRANSFERASE 144 U/L (12-78); ALBUMIN 2.6 G/DL (3.4-5.0); ALBUMIN/GLOBULIN RATIO 0.8 (1.0-2.7); ALKALINE PHOSPHATASE 159 U/L (46-116); ANION GAP 8 mmol/L (5-15); ASPARTATE AMINO TRANSFERASE 61 U/L (15-37); BILIRUBIN,TOTAL 1.6 MG/DL (0.2-1.0); BLOOD UREA NITROGEN 66 mg/dL (7-18); CALCIUM 8.8 MG/DL (8.5-10.1); CARBON DIOXIDE 31 MMOL/L (21-32); CHLORIDE 102 MMOL/L (98-107); CREATININE 6.6 MG/DL (0.55-1.30); POTASSIUM 3.4 MMOL/L (3.5-5.1); SODIUM 141 MMOL/L (136-145)
[2019-12-12 06:35] LABS: BILIRUBIN,DIRECT 1.1 MG/DL (0.0-0.3)
--- NOTE | 2019-12-12 07:10 | NUR ---
HAND-OFF: Report given to DARYA GUY.
--- NOTE | 2019-12-12 07:30 | NUR ---
NURSE NOTES: late entry: RECEIVED REPORT FROM DREW Arshad PT IN BED, PRONE POSITION. HEAD POSITIONED TO LEFT SIDE. DRAINAGE NOTED FROM ORAL CAVITY, PLACED ADDITIONAL TOWEL FOR SECRETIONS. PINK TINGED, THICK. REPORTED PT TURNED AT 0400. TURN SUPINE AT 1600. SEDATED ON FENTANYL DRIP AT 300MCG/MIN. ST ON MONITOR. VSS. RECEIVED LEVOPHED AT 12MCG/MIN. INTUBATED 8, 24CM AT LIP. VENT SETTINGS AC 20, VT 500, FI02 100%, PEEP 7. TUBE FEEDING TO CONTINUE WHILE PT PRONE. RUNNING NEPRO AT 35ML/HR. NGT LT NARES. RECTAL TUBE INTACT, DRAINING GREEN STOOL. PT ANURIC, MIKE INTACT. SKIN- SEE ASSESSMENT. LT WRIST 20G, YESI W/ PIGTAIL RT FEMORAL TLC. A FEBRILE. BILATERAL RADIAL AND PEDAL PULSES WEAK. AIRBORNE ISOLATION PRECAUTIONS IN PLACE. BED ALARM ON, IN LOW POSITION. WILL CONTINUE TO MONITOR TP.
[2019-12-12] MEDS: Vancomycin oral 125mg/2.5ml ORAL SCH ×2 (08:23→12:15)
[2019-12-12] MEDS: Pantoprazole Inj IVP SCH (08:24)
[2019-12-12] MEDS: Norepinephrine Bitartrate 16 MG in D5W 500ml 550 ML IV SCH (08:25)
[2019-12-12] MEDS: Vasopressin 100 UNITS in NS 95 ML IV SCH (08:26)
--- NOTE | 2019-12-12 10:03 | Urology Progress Note ---
Assessment/Plan Status: unchanged Assessment/Plan: 1. Phimosis. 2. Retention. 3. Hematuria. 4. Pyuria. 5. Proteinuria. 6. Acute kidney injury. 7. Meatal stenosis. monitor clinically maintain barnes, placed 12/04 hand irrigate PRN monitor urine output and renal fxn consider renal imaging abx as ordered HD Subjective Allergies: Coded Allergies: No Known Allergies (Unverified , 11/29/19) Subjective remains on vent, still with minimal urine output, HD initiated Objective Last 24 Hour Vital Signs Date Time Temp Pulse Resp B/P (MAP) Pulse Ox O2 Delivery O2 Flow Rate FiO2 12/12/19 08:25 129/68 12/12/19 08:00 102 12/12/19 08:00 102 22 134/65 (88) 98 12/12/19 07:03 106 31 100 12/12/19 07:00 107 22 132/60 (84) 93 12/12/19 07:00 132/60 12/12/19 07:00 23 Mechanical Ventilator 100 12/12/19 06:30 108 21 132/63 (86) 94 12/12/19 06:00 110 18 132/59 (83) 92 12/12/19 06:00 132/59 12/12/19 06:00 18 Mechanical Ventilator 100 12/12/19 05:30 108 19 137/64 (88) 97 12/12/19 05:00 129/63 12/12/19 05:00 22 Mechanical Ventilator 100 12/12/19 05:00 106 22 129/63 (85) 99 12/12/19 04:34 106 24 100 12/12/19 04:30 104 25 135/67 (89) 99 12/12/19 04:14 104 12/12/19 04:00 98.6 97 24 145/119 (128) 99 12/12/19 04:00 Mechanical Ventilator 12/12/19 04:00 100 12/12/19 04:00 145/119 12/12/19 04:00 24 Mechanical Ventilator 100 12/12/19 03:53 23 Mechanical Ventilator 100 12/12/19 03:30 96 22 126/64 (84) 100 12/12/19 03:00 119/62 12/12/19 03:00 23 Mechanical Ventilator 100 12/12/19 03:00 98 23 119/62 (81) 100 12/12/19 02:42 103 23 100 12/12/19 02:30 96 22 122/64 (83) 100 12/12/19 02:00 94 23 120/63 (82) 100 12/12/19 02:00 120/64 12/12/19 02:00 23 Mechanical Ventilator 100 12/12/19 01:30 100 24 116/60 (78) 100 12/12/19 01:00 119/60 12/12/19 01:00 21 Mechanical Ventilator 100 12/12/19 01:00 101 21 119/60 (79) 100 12/12/19 00:57 104 23 100 12/12/19 00:30 98 22 120/60 (80) 100 12/12/19 00:00 97.8 99 22 116/62 (80) 100 12/12/19 00:00 116/62 12/12/19 00:00 22 Mechanical Ventilator 100 12/12/19 00:00 100 12/12/19 00:00 Mechanical Ventilator 12/11/19 23:30 100 24 117/60 (79) 100 12/11/19 23:18 106 25 100 12/11/19 23:01 98 12/11/19 23:00 95 26 124/64 (84) 100 12/11/19 23:00 124/64 12/11/19 23:00 26 Mechanical Ventilator 100 12/11/19 22:30 98 22 120/56 (77) 98 12/11/19 22:00 123/59 12/11/19 22:00 21 Mechanical Ventilator 100 12/11/19 22:00 97 21 123/59 (80) 100 12/11/19 21:30 101 22 121/58 (79) 100 12/11/19 21:00 114/60 12/11/19 21:00 23 Mechanical Ventilator 100 12/11/19 21:00 105 23 114/60 (78) 100 12/11/19 20:46 108 26 100 12/11/19 20:30 108 22 127/59 (81) 99 12/11/19 20:05 28 Mechanical Ventilator 100 12/11/19 20:00 Mechanical Ventilator 12/11/19 20:00 98/56 12/11/19 20:00 23 Mechanical Ventilator 100 12/11/19 20:00 100 12/11/19 20:00 98.5 104 20 98/56 (70) 99 12/11/19 19:30 103 23 129/69 (89) 99 12/11/19 19:22 104 12/11/19 19:00 105 23 143/62 (89) 96 12/11/19 18:45 104 24 100 12/11/19 18:30 106 18 118/56 (76) 98 12/11/19 18:00 106 22 106/53 (70) 90 12/11/19 17:30 107 23 96/52 (67) 92 12/11/19 17:00 110 22 101/51 (68) 91 12/11/19 16:00 Mechanical Ventilator 12/11/19 16:00 100 12/11/19 16:00 98.1 108 23 91/47 (62) 93 12/11/19 16:00 97 12/11/19 15:30 103 26 103/58 (73) 92 12/11/19 15:07 108 25 100 12/11/19 15:00 108 22 111/58 (75) 96 12/11/19 14:30 98 21 108/61 (77) 98 12/11/19 14:00 96 22 110/62 (78) 100 12/11/19 13:30 94 22 108/62 (77) 100 12/11/19 13:00 93 22 114/64 (81) 100 12/11/19 12:30 96 21 109/60 (76) 98 12/11/19 12:00 99 12/11/19 12:00 Mechanical Ventilator 12/11/19 12:00 98.0 96 22 113/62 (79) 99 12/11/19 12:00 100 12/11/19 11:03 103 28 100 12/11/19 11:00 114/55 12/11/19 11:00 103 21 114/55 (74) 97 12/11/19 10:35 23 Mechanical Ventilator 100 12/11/19 10:30 106 24 114/57 (76) 96 Intake and Output 12/11/19 12/12/19 19:00 07:00 Intake Total 1378.4525 ml 1468.25 ml Output Total 150 ml 3000 ml Balance 1228.4525 ml -1531.75 ml IV Total 888.4525 ml 1013.25 ml Tube Feeding 420 ml 405 ml Other 70 ml 50 ml Output Urine Total 0 ml 0 ml Stool Total 150 ml Hemodialysis UF 3000 ml # Bowel Movements 50 Microbiology Date/Time Source Procedure Growth Status 12/10/19 21:15 Blood Blood Culture - Preliminary NO GROWTH AFTER 24 HOURS Resulted 12/04/19 23:00 Sputum Gram Stain - Final Complete 12/04/19 23:00 Sputum Sputum Culture - Final NORMAL UPPER RESPIRATORY ALISIA PRESENT Complete 12/11/19 22:50 Stool Clostridium difficile Toxin Assay - Final Complete 12/11/19 20:33 Indwelling Cath Urine Culture - Preliminary NO GROWTH Resulted Current Medications Medications (Trade) Dose Ordered Sig/Vicki Route PRN Reason Start Time Stop Time Status Last Admin Dose Admin Acetaminophen (Tylenol) 650 mg Q4H PRN NG Temp >100.5 12/06/19 14:15 01/05/20 14:14 12/10/19 04:34 Acetaminophen (Tylenol) 650 mg Q4H PRN RECTAL Mild Pain (Pain Scale 1-3) 12/04/19 11:45 01/03/20 11:44 12/06/19 19:17 Cefepime HCl 500 mg/Dextrose 50 ml @ 100 mls/hr Q24HRS IV 12/10/19 23:00 12/17/19 22:59 12/11/19 22:07 Chlorhexidine Gluconate (Arely-Hex 2%) 1 applic DAILY@2000 TOPIC 12/05/19 20:00 03/04/20 19:59 12/11/19 20:04 Dextrose (Dextrose 50%) 25 ml Q30M PRN IV Hypoglycemia 11/29/19 14:15 02/27/20 14:14 Dextrose (Dextrose 50%) 50 ml Q30M PRN IV Hypoglycemia 11/29/19 14:15 02/27/20 14:14 Fentanyl Citrate 2500 mcg/Sodium Chloride 250 ml @ 0 mls/hr Q24H IVPB 12/06/19 02:00 12/13/19 01:59 12/12/19 03:53 Hydralazine HCl (Apresoline) 10 mg Q4H PRN IV For High Blood Pressure 11/29/19 15:15 02/27/20 15:14 Metronidazole 100 ml @ 100 mls/hr Q8HR IVPB 12/10/19 23:00 12/17/19 22:59 12/12/19 05:32 Norepinephrine Bitartrate 16 mg/ Dextrose 566 ml @ 0 mls/hr Q24H IV 12/06/19 09:00 01/05/20 08:59 12/12/19 08:25 Ondansetron HCl (Zofran) 4 mg Q6H PRN IVP Nausea & Vomiting 11/29/19 14:15 12/29/19 14:14 Pantoprazole (Protonix) 40 mg DAILY IVP 11/30/19 12:15 12/30/19 12:14 12/12/19 08:24 Potassium Chloride (K-Dur) 40 meq TWICE A DAY ORAL 12/11/19 09:30 03/10/20 09:29 12/12/19 08:24 Vancomycin HCl (Firvanq) 125 mg FOUR TIMES A DAY ORAL 12/10/19 21:00 12/17/19 20:59 12/12/19 08:23 Vancomycin HCl (Vanco rx to dose) 1 ea DAILY PRN MISC Per rx protocol 12/08/19 19:30 01/07/20 19:29 Vasopressin 100 units/Sodium Chloride 100 ml @ 0 mls/hr Q24H IV 12/06/19 09:00 01/05/20 08:59 12/06/19 09:03 Laboratory Tests 12/12/19 05:09: White Blood Count 23.9*H, Red Blood Count 3.56L, Hemoglobin 10.8L, Hematocrit 32.7L, Mean Corpuscular Volume 92, Mean Corpuscular Hemoglobin 30.4, Mean Corpuscular Hemoglobin Concent 33.1, Red Cell Distribution Width 13.2, Platelet Count 140L, Mean Platelet Volume 8.8, Neutrophils (%) (Auto) , Lymphocytes (%) ( Auto) , Monocytes (%) (Auto) , Eosinophils (%) (Auto) , Basophils (%) (Auto) , Differential Total Cells Counted 100, Neutrophils % (Manual) 91H, Lymphocytes % (Manual) 3L, Monocytes % (Manual) 3, Eosinophils % (Manual) 0, Basophils % ( Manual) 0, Metamyelocytes % 2H, Band Neutrophils 1, Nucleated Red Blood Cells 1 , Platelet Estimate DecreasedL, Platelet Morphology Normal, Hypochromasia 1+, Anisocytosis 1+, Sodium Level 141, Potassium Level 3.4L, Chloride Level 102, Carbon Dioxide Level 31, Anion Gap 8, Blood Urea Nitrogen 66H, Creatinine 6.6H, Estimat Glomerular Filtration Rate 8.7, Glucose Level 151H, Calcium Level 8.8, Total Bilirubin 1.6H, Direct Bilirubin 1.1H, Aspartate Amino Transf (AST/SGOT) 61H, Alanine Aminotransferase (ALT/SGPT) 144H, Alkaline Phosphatase 159H, Total Protein 5.9L, Albumin 2.6L, Globulin 3.3, Albumin/Globulin Ratio 0.8L Height (Feet): 5 Height (Inches): 6.00 Weight (Pounds): 157 Objective stable no bleeding at prepuce barnes indwelling, marge urine Kai Berger MD Dec 12, 2019 10:03
--- NOTE | 2019-12-12 10:12 | NUR ---
CASE MANAGEMENT:REVIEW 12/12/19 SI: COVID 19 PNA. ACUTE RESPIRATORY FAILURE ~ INTUBATED 98.6 110 22 134/65 93% ON VENT SUPPORT @ 100% FIO2 WBC+23.9 BUN+66 CR+6.6 TBILI+1.6 DBILI+1.1 IS: FENTANYL GTT IV CEFEPIME Q24 IV FLAGYL Q8HRS VANCOMYCIN NG QID IV PROTONIX Q24 : ICU STATUS DCP; PATIENT IS FROM HOME
--- NOTE | 2019-12-12 10:32 | General Progress Note ---
Assessment/Plan Problem List: (1) Elevated LFTs ICD Codes: R79.89 - Other specified abnormal findings of blood chemistry SNOMED: 862801269, 705870957 (2) HTN (hypertension) ICD Codes: I10 - Essential (primary) hypertension SNOMED: 38381225 (3) Suspected COVID-19 virus infection ICD Codes: R68.89 - Other general symptoms and signs SNOMED: 273780147 (4) Pneumonia ICD Codes: J18.9 - Pneumonia, unspecified organism SNOMED: 388308011 (5) Respiratory distress ICD Codes: R06.03 - Acute respiratory distress SNOMED: 891327710 (6) Pneumomediastinum ICD Codes: J98.2 - Interstitial emphysema SNOMED: 45211263 (7) COVID-19 ICD Codes: U07.1 - COVID-19 SNOMED: 208126789 (8) Hypotension ICD Codes: I95.9 - Hypotension, unspecified SNOMED: 91256615 Status: unchanged Assessment/Plan: NGTF rectal tube in place elevated LFTS most likely due to shock liver>>> improving repeat labs in am hepatitis panel>>>Neg abd us when off of isolation fu nephrology recent labs and notes reviewed D/W the nurse Subjective ROS Limited/Unobtainable: No Allergies: Coded Allergies: No Known Allergies (Unverified , 11/29/19) Objective Last 24 Hour Vital Signs Date Time Temp Pulse Resp B/P (MAP) Pulse Ox O2 Delivery O2 Flow Rate FiO2 12/12/19 08:25 129/68 12/12/19 08:00 102 12/12/19 08:00 102 22 134/65 (88) 98 12/12/19 07:03 106 31 100 12/12/19 07:00 107 22 132/60 (84) 93 12/12/19 07:00 132/60 12/12/19 07:00 23 Mechanical Ventilator 100 12/12/19 06:30 108 21 132/63 (86) 94 12/12/19 06:00 110 18 132/59 (83) 92 12/12/19 06:00 132/59 12/12/19 06:00 18 Mechanical Ventilator 100 12/12/19 05:30 108 19 137/64 (88) 97 12/12/19 05:00 129/63 12/12/19 05:00 22 Mechanical Ventilator 100 12/12/19 05:00 106 22 129/63 (85) 99 12/12/19 04:34 106 24 100 12/12/19 04:30 104 25 135/67 (89) 99 12/12/19 04:14 104 12/12/19 04:00 98.6 97 24 145/119 (128) 99 12/12/19 04:00 Mechanical Ventilator 12/12/19 04:00 100 12/12/19 04:00 145/119 12/12/19 04:00 24 Mechanical Ventilator 100 12/12/19 03:53 23 Mechanical Ventilator 100 12/12/19 03:30 96 22 126/64 (84) 100 12/12/19 03:00 119/62 12/12/19 03:00 23 Mechanical Ventilator 100 12/12/19 03:00 98 23 119/62 (81) 100 12/12/19 02:42 103 23 100 12/12/19 02:30 96 22 122/64 (83) 100 12/12/19 02:00 94 23 120/63 (82) 100 12/12/19 02:00 120/64 12/12/19 02:00 23 Mechanical Ventilator 100 12/12/19 01:30 100 24 116/60 (78) 100 12/12/19 01:00 119/60 12/12/19 01:00 21 Mechanical Ventilator 100 12/12/19 01:00 101 21 119/60 (79) 100 12/12/19 00:57 104 23 100 12/12/19 00:30 98 22 120/60 (80) 100 12/12/19 00:00 97.8 99 22 116/62 (80) 100 12/12/19 00:00 116/62 12/12/19 00:00 22 Mechanical Ventilator 100 12/12/19 00:00 100 12/12/19 00:00 Mechanical Ventilator 12/11/19 23:30 100 24 117/60 (79) 100 12/11/19 23:18 106 25 100 12/11/19 23:01 98 12/11/19 23:00 95 26 124/64 (84) 100 12/11/19 23:00 124/64 12/11/19 23:00 26 Mechanical Ventilator 100 12/11/19 22:30 98 22 120/56 (77) 98 12/11/19 22:00 123/59 12/11/19 22:00 21 Mechanical Ventilator 100 12/11/19 22:00 97 21 123/59 (80) 100 12/11/19 21:30 101 22 121/58 (79) 100 12/11/19 21:00 114/60 12/11/19 21:00 23 Mechanical Ventilator 100 12/11/19 21:00 105 23 114/60 (78) 100 12/11/19 20:46 108 26 100 12/11/19 20:30 108 22 127/59 (81) 99 12/11/19 20:05 28 Mechanical Ventilator 100 12/11/19 20:00 Mechanical Ventilator 12/11/19 20:00 98/56 12/11/19 20:00 23 Mechanical Ventilator 100 12/11/19 20:00 100 12/11/19 20:00 98.5 104 20 98/56 (70) 99 12/11/19 19:30 103 23 129/69 (89) 99 12/11/19 19:22 104 12/11/19 19:00 105 23 143/62 (89) 96 12/11/19 18:45 104 24 100 12/11/19 18:30 106 18 118/56 (76) 98 12/11/19 18:00 106 22 106/53 (70) 90 12/11/19 17:30 107 23 96/52 (67) 92 12/11/19 17:00 110 22 101/51 (68) 91 12/11/19 16:00 Mechanical Ventilator 12/11/19 16:00 100 12/11/19 16:00 98.1 108 23 91/47 (62) 93 12/11/19 16:00 97 12/11/19 15:30 103 26 103/58 (73) 92 12/11/19 15:07 108 25 100 12/11/19 15:00 108 22 111/58 (75) 96 12/11/19 14:30 98 21 108/61 (77) 98 12/11/19 14:00 96 22 110/62 (78) 100 12/11/19 13:30 94 22 108/62 (77) 100 12/11/19 13:00 93 22 114/64 (81) 100 12/11/19 12:30 96 21 109/60 (76) 98 12/11/19 12:00 99 12/11/19 12:00 Mechanical Ventilator 12/11/19 12:00 98.0 96 22 113/62 (79) 99 12/11/19 12:00 100 12/11/19 11:03 103 28 100 12/11/19 11:00 114/55 12/11/19 11:00 103 21 114/55 (74) 97 12/11/19 10:35 23 Mechanical Ventilator 100 Intake and Output 12/11/19 12/12/19 19:00 07:00 Intake Total 1378.4525 ml 1468.25 ml Output Total 150 ml 3000 ml Balance 1228.4525 ml -1531.75 ml IV Total 888.4525 ml 1013.25 ml Tube Feeding 420 ml 405 ml Other 70 ml 50 ml Output Urine Total 0 ml 0 ml Stool Total 150 ml Hemodialysis UF 3000 ml # Bowel Movements 50 Laboratory Tests 12/12/19 05:09: White Blood Count 23.9*H, Red Blood Count 3.56L, Hemoglobin 10.8L, Hematocrit 32.7L, Mean Corpuscular Volume 92, Mean Corpuscular Hemoglobin 30.4, Mean Corpuscular Hemoglobin Concent 33.1, Red Cell Distribution Width 13.2, Platelet Count 140L, Mean Platelet Volume 8.8, Neutrophils (%) (Auto) , Lymphocytes (%) ( Auto) , Monocytes (%) (Auto) , Eosinophils (%) (Auto) , Basophils (%) (Auto) , Differential Total Cells Counted 100, Neutrophils % (Manual) 91H, Lymphocytes % (Manual) 3L, Monocytes % (Manual) 3, Eosinophils % (Manual) 0, Basophils % ( Manual) 0, Metamyelocytes % 2H, Band Neutrophils 1, Nucleated Red Blood Cells 1 , Platelet Estimate DecreasedL, Platelet Morphology Normal, Hypochromasia 1+, Anisocytosis 1+, Sodium Level 141, Potassium Level 3.4L, Chloride Level 102, Carbon Dioxide Level 31, Anion Gap 8, Blood Urea Nitrogen 66H, Creatinine 6.6H, Estimat Glomerular Filtration Rate 8.7, Glucose Level 151H, Calcium Level 8.8, Total Bilirubin 1.6H, Direct Bilirubin 1.1H, Aspartate Amino Transf (AST/SGOT) 61H, Alanine Aminotransferase (ALT/SGPT) 144H, Alkaline Phosphatase 159H, Total Protein 5.9L, Albumin 2.6L, Globulin 3.3, Albumin/Globulin Ratio 0.8L Height (Feet): 5 Height (Inches): 6.00 Weight (Pounds): 157 General Appearance: lethargic EENT: normal ENT inspection Neck: supple Cardiovascular: normal rate Respiratory/Chest: decreased breath sounds Abdomen: normal bowel sounds, non tender, soft Extremities: non-tender João Rdz MD Dec 12, 2019 10:32
--- NOTE | 2019-12-12 10:45 | NUR ---
NURSE NOTES: called [facility] HD. spoke with call director [facility] development [facility]. pt in prone position, will be supine by 1600. H.D R.N will be notified.
--- NOTE | 2019-12-12 10:56 | Nephrology Progress Note ---
Assessment/Plan Plan #ALBARO- concerns for developing ischemic ATN in the setting of sepsis- r/o vanco toxicity - r/o COVID nephropathy - now with likely ATN #Hyperkalemia due to renal insuffiency - exacerbated by acidosis #COID sepsis #COVID pneumonia #hypoxemic respiratary failure #HTN- now in shock #mediastinal PTX - next HD today - order placed- UF as tolerated- 3L-> will given albumin PRN - middorine 10mg q8hr - monitor I&Os - daily weights - monitor lytes closely - proned - GOALS of care discussion - continue pressor support to maintain MAP > 65- continue levo - continue fentanyl dip - abx per ID- on vanco and cefepime, flagyl - vent management per pulm -Abd Xray shows mediastinal PTX - too high risk for thorocotomy Subjective ROS Limited/Unobtainable: No Subjective s/p HD yesterday with 3L UF given albumin plan HD gain today chest xray with vascular congestion remains oliguric on Fio2 100 remains on levo 4 Abd Xray shows mediastinal PTX On fentanyl drip Objective Objective Last 24 Hour Vital Signs Date Time Temp Pulse Resp B/P (MAP) Pulse Ox O2 Delivery O2 Flow Rate FiO2 12/12/19 08:25 129/68 12/12/19 08:00 102 12/12/19 08:00 102 22 134/65 (88) 98 12/12/19 07:03 106 31 100 12/12/19 07:00 107 22 132/60 (84) 93 12/12/19 07:00 132/60 12/12/19 07:00 23 Mechanical Ventilator 100 12/12/19 06:30 108 21 132/63 (86) 94 12/12/19 06:00 110 18 132/59 (83) 92 12/12/19 06:00 132/59 12/12/19 06:00 18 Mechanical Ventilator 100 12/12/19 05:30 108 19 137/64 (88) 97 12/12/19 05:00 129/63 12/12/19 05:00 22 Mechanical Ventilator 100 12/12/19 05:00 106 22 129/63 (85) 99 12/12/19 04:34 106 24 100 12/12/19 04:30 104 25 135/67 (89) 99 12/12/19 04:14 104 12/12/19 04:00 98.6 97 24 145/119 (128) 99 12/12/19 04:00 Mechanical Ventilator 12/12/19 04:00 100 12/12/19 04:00 145/119 12/12/19 04:00 24 Mechanical Ventilator 100 12/12/19 03:53 23 Mechanical Ventilator 100 12/12/19 03:30 96 22 126/64 (84) 100 12/12/19 03:00 119/62 12/12/19 03:00 23 Mechanical Ventilator 100 12/12/19 03:00 98 23 119/62 (81) 100 12/12/19 02:42 103 23 100 12/12/19 02:30 96 22 122/64 (83) 100 12/12/19 02:00 94 23 120/63 (82) 100 12/12/19 02:00 120/64 12/12/19 02:00 23 Mechanical Ventilator 100 12/12/19 01:30 100 24 116/60 (78) 100 12/12/19 01:00 119/60 12/12/19 01:00 21 Mechanical Ventilator 100 12/12/19 01:00 101 21 119/60 (79) 100 12/12/19 00:57 104 23 100 12/12/19 00:30 98 22 120/60 (80) 100 12/12/19 00:00 97.8 99 22 116/62 (80) 100 12/12/19 00:00 116/62 12/12/19 00:00 22 Mechanical Ventilator 100 12/12/19 00:00 100 12/12/19 00:00 Mechanical Ventilator 12/11/19 23:30 100 24 117/60 (79) 100 12/11/19 23:18 106 25 100 12/11/19 23:01 98 12/11/19 23:00 95 26 124/64 (84) 100 12/11/19 23:00 124/64 12/11/19 23:00 26 Mechanical Ventilator 100 12/11/19 22:30 98 22 120/56 (77) 98 12/11/19 22:00 123/59 12/11/19 22:00 21 Mechanical Ventilator 100 12/11/19 22:00 97 21 123/59 (80) 100 12/11/19 21:30 101 22 121/58 (79) 100 12/11/19 21:00 114/60 12/11/19 21:00 23 Mechanical Ventilator 100 12/11/19 21:00 105 23 114/60 (78) 100 12/11/19 20:46 108 26 100 12/11/19 20:30 108 22 127/59 (81) 99 12/11/19 20:05 28 Mechanical Ventilator 100 12/11/19 20:00 Mechanical Ventilator 12/11/19 20:00 98/56 12/11/19 20:00 23 Mechanical Ventilator 100 12/11/19 20:00 100 12/11/19 20:00 98.5 104 20 98/56 (70) 99 12/11/19 19:30 103 23 129/69 (89) 99 12/11/19 19:22 104 12/11/19 19:00 105 23 143/62 (89) 96 12/11/19 18:45 104 24 100 12/11/19 18:30 106 18 118/56 (76) 98 12/11/19 18:00 106 22 106/53 (70) 90 12/11/19 17:30 107 23 96/52 (67) 92 12/11/19 17:00 110 22 101/51 (68) 91 12/11/19 16:00 Mechanical Ventilator 12/11/19 16:00 100 12/11/19 16:00 98.1 108 23 91/47 (62) 93 12/11/19 16:00 97 12/11/19 15:30 103 26 103/58 (73) 92 12/11/19 15:07 108 25 100 12/11/19 15:00 108 22 111/58 (75) 96 12/11/19 14:30 98 21 108/61 (77) 98 12/11/19 14:00 96 22 110/62 (78) 100 12/11/19 13:30 94 22 108/62 (77) 100 12/11/19 13:00 93 22 114/64 (81) 100 12/11/19 12:30 96 21 109/60 (76) 98 12/11/19 12:00 99 12/11/19 12:00 Mechanical Ventilator 12/11/19 12:00 98.0 96 22 113/62 (79) 99 12/11/19 12:00 100 12/11/19 11:03 103 28 100 12/11/19 11:00 114/55 12/11/19 11:00 103 21 114/55 (74) 97 Intake and Output 12/11/19 12/12/19 19:00 07:00 Intake Total 1378.4525 ml 1468.25 ml Output Total 150 ml 3000 ml Balance 1228.4525 ml -1531.75 ml IV Total 888.4525 ml 1013.25 ml Tube Feeding 420 ml 405 ml Other 70 ml 50 ml Output Urine Total 0 ml 0 ml Stool Total 150 ml Hemodialysis UF 3000 ml # Bowel Movements 50 Laboratory Tests 12/12/19 05:09: White Blood Count 23.9*H, Red Blood Count 3.56L, Hemoglobin 10.8L, Hematocrit 32.7L, Mean Corpuscular Volume 92, Mean Corpuscular Hemoglobin 30.4, Mean Corpuscular Hemoglobin Concent 33.1, Red Cell Distribution Width 13.2, Platelet Count 140L, Mean Platelet Volume 8.8, Neutrophils (%) (Auto) , Lymphocytes (%) ( Auto) , Monocytes (%) (Auto) , Eosinophils (%) (Auto) , Basophils (%) (Auto) , Differential Total Cells Counted 100, Neutrophils % (Manual) 91H, Lymphocytes % (Manual) 3L, Monocytes % (Manual) 3, Eosinophils % (Manual) 0, Basophils % ( Manual) 0, Metamyelocytes % 2H, Band Neutrophils 1, Nucleated Red Blood Cells 1 , Platelet Estimate DecreasedL, Platelet Morphology Normal, Hypochromasia 1+, Anisocytosis 1+, Sodium Level 141, Potassium Level 3.4L, Chloride Level 102, Carbon Dioxide Level 31, Anion Gap 8, Blood Urea Nitrogen 66H, Creatinine 6.6H, Estimat Glomerular Filtration Rate 8.7, Glucose Level 151H, Calcium Level 8.8, Total Bilirubin 1.6H, Direct Bilirubin 1.1H, Aspartate Amino Transf (AST/SGOT) 61H, Alanine Aminotransferase (ALT/SGPT) 144H, Alkaline Phosphatase 159H, Total Protein 5.9L, Albumin 2.6L, Globulin 3.3, Albumin/Globulin Ratio 0.8L Height (Feet): 5 Height (Inches): 6.00 Weight (Pounds): 157 Objective General Appearance: other - intubated- proned Lines, tubes and drains: central line HEENT: normocephalic, atraumatic Respiratory/Chest: rhonchi - bilaterally Cardiovascular/Chest: other - tachycardic Extremities: pitting Dorian Soriano M.D. Dec 12, 2019 10:56
[2019-12-12] MEDS: Midodrine 10mg tab ORAL SCH ×2 (12:16→17:12)
--- NOTE | 2019-12-12 12:21 | Pulmonology Progress Note ---
Assessment/Plan Assessment/Plan IMPRESSION: 1. Bilateral pneumonia. 2. Positive COVID-19. 3. Respiratory failure. DISCUSSION: Intubated On AC 20; FiO2 90; PEEP 7; SaO2 97% Abd Xray shows mediastinal PTX Recent CXR 12/06; no PTX or pneumomediastinum seen Continue proning On Fentanyl due to high triglycerides Continue proning as heart rate tolerates Saturations are better Grave prognosis but slowly better; CXR and oxygenation worse today I will follow carefully. S/p HD S/p Actemra Blood CS ? contaminant Needs ongoing HD; more ultrafiltration Urine CS negative Sushil Cortes M.D. Subjective ROS Limited/Unobtainable: No Interval Events: Intubated ;proning continuing Constitutional: Reports: fever, other - on pressors and vent HEENT: Repors: no symptoms Respiratory: Reports: no symptoms Cardiovascular: Reports: no symptoms Gastrointestinal/Abdominal: Denies: nausea, vomiting, diarrhea Genitourinary: Reports: no symptoms Psychiatric: Reports: other - NA Skin: Denies: rash Musculoskeletal: Reports: other - NA Allergies: Coded Allergies: No Known Allergies (Unverified , 11/29/19) Objective Last 24 Hour Vital Signs Date Time Temp Pulse Resp B/P (MAP) Pulse Ox O2 Delivery O2 Flow Rate FiO2 12/12/19 12:17 Mechanical Ventilator 12/12/19 11:06 109 22 100 12/12/19 11:00 107 24 129/61 (83) 95 12/12/19 11:00 Mechanical Ventilator 12/12/19 10:00 Mechanical Ventilator 12/12/19 10:00 106 24 131/64 (86) 97 12/12/19 09:00 Mechanical Ventilator 12/12/19 09:00 104 25 131/65 (87) 98 12/12/19 08:25 129/68 12/12/19 08:00 102 12/12/19 08:00 100 12/12/19 08:00 Mechanical Ventilator 12/12/19 08:00 102 22 134/65 (88) 98 12/12/19 07:03 106 31 100 12/12/19 07:00 107 22 132/60 (84) 93 12/12/19 07:00 132/60 12/12/19 07:00 23 Mechanical Ventilator 100 12/12/19 06:30 108 21 132/63 (86) 94 12/12/19 06:00 110 18 132/59 (83) 92 12/12/19 06:00 132/59 12/12/19 06:00 18 Mechanical Ventilator 100 12/12/19 05:30 108 19 137/64 (88) 97 12/12/19 05:00 129/63 12/12/19 05:00 22 Mechanical Ventilator 100 12/12/19 05:00 106 22 129/63 (85) 99 12/12/19 04:34 106 24 100 12/12/19 04:30 104 25 135/67 (89) 99 12/12/19 04:14 104 12/12/19 04:00 98.6 97 24 145/119 (128) 99 12/12/19 04:00 Mechanical Ventilator 12/12/19 04:00 100 12/12/19 04:00 145/119 12/12/19 04:00 24 Mechanical Ventilator 100 12/12/19 03:53 23 Mechanical Ventilator 100 12/12/19 03:30 96 22 126/64 (84) 100 12/12/19 03:00 119/62 12/12/19 03:00 23 Mechanical Ventilator 100 12/12/19 03:00 98 23 119/62 (81) 100 12/12/19 02:42 103 23 100 12/12/19 02:30 96 22 122/64 (83) 100 12/12/19 02:00 94 23 120/63 (82) 100 12/12/19 02:00 120/64 12/12/19 02:00 23 Mechanical Ventilator 100 12/12/19 01:30 100 24 116/60 (78) 100 12/12/19 01:00 119/60 12/12/19 01:00 21 Mechanical Ventilator 100 12/12/19 01:00 101 21 119/60 (79) 100 12/12/19 00:57 104 23 100 12/12/19 00:30 98 22 120/60 (80) 100 12/12/19 00:00 97.8 99 22 116/62 (80) 100 12/12/19 00:00 116/62 12/12/19 00:00 22 Mechanical Ventilator 100 12/12/19 00:00 100 12/12/19 00:00 Mechanical Ventilator 12/11/19 23:30 100 24 117/60 (79) 100 12/11/19 23:18 106 25 100 12/11/19 23:01 98 12/11/19 23:00 95 26 124/64 (84) 100 12/11/19 23:00 124/64 12/11/19 23:00 26 Mechanical Ventilator 100 12/11/19 22:30 98 22 120/56 (77) 98 12/11/19 22:00 123/59 12/11/19 22:00 21 Mechanical Ventilator 100 12/11/19 22:00 97 21 123/59 (80) 100 12/11/19 21:30 101 22 121/58 (79) 100 12/11/19 21:00 114/60 12/11/19 21:00 23 Mechanical Ventilator 100 12/11/19 21:00 105 23 114/60 (78) 100 12/11/19 20:46 108 26 100 12/11/19 20:30 108 22 127/59 (81) 99 12/11/19 20:05 28 Mechanical Ventilator 100 12/11/19 20:00 Mechanical Ventilator 12/11/19 20:00 98/56 12/11/19 20:00 23 Mechanical Ventilator 100 12/11/19 20:00 100 12/11/19 20:00 98.5 104 20 98/56 (70) 99 12/11/19 19:30 103 23 129/69 (89) 99 12/11/19 19:22 104 12/11/19 19:00 105 23 143/62 (89) 96 12/11/19 18:45 104 24 100 12/11/19 18:30 106 18 118/56 (76) 98 12/11/19 18:00 106 22 106/53 (70) 90 12/11/19 17:30 107 23 96/52 (67) 92 12/11/19 17:00 110 22 101/51 (68) 91 12/11/19 16:00 Mechanical Ventilator 12/11/19 16:00 100 12/11/19 16:00 98.1 108 23 91/47 (62) 93 12/11/19 16:00 97 12/11/19 15:30 103 26 103/58 (73) 92 12/11/19 15:07 108 25 100 12/11/19 15:00 108 22 111/58 (75) 96 12/11/19 14:30 98 21 108/61 (77) 98 12/11/19 14:00 96 22 110/62 (78) 100 12/11/19 13:30 94 22 108/62 (77) 100 12/11/19 13:00 93 22 114/64 (81) 100 12/11/19 12:30 96 21 109/60 (76) 98 Intake and Output 12/11/19 12/12/19 19:00 07:00 Intake Total 1378.4525 ml 1468.25 ml Output Total 150 ml 3000 ml Balance 1228.4525 ml -1531.75 ml IV Total 888.4525 ml 1013.25 ml Tube Feeding 420 ml 405 ml Other 70 ml 50 ml Output Urine Total 0 ml 0 ml Stool Total 150 ml Hemodialysis UF 3000 ml # Bowel Movements 50 General Appearance: other - on vent and pressors HEENT: normocephalic, atraumatic, anicteric, no JVD, other - oral - intubated Respiratory/Chest: chest wall non-tender, lungs clear Cardiovascular: normal peripheral pulses, normal rate Abdomen: normal bowel sounds, soft, non tender, no organomegaly, non distended , other - + rectal tube Genitourinary: other - + barnes - urine slt cloudy Extremities: no cyanosis Skin: no rash Neurologic/Psychiatric: want ad supervisor II-XII grossly normal, alert, responsive Lymphatic: no neck adenopathy Musculoskeletal: no effusion Microbiology Date/Time Source Procedure Growth Status 12/10/19 21:15 Blood Blood Culture - Preliminary NO GROWTH AFTER 24 HOURS Resulted 12/10/19 21:00 Blood Blood Culture - Preliminary NO GROWTH AFTER 24 HOURS Resulted 12/11/19 22:50 Stool Clostridium difficile Toxin Assay - Final Complete 12/11/19 20:33 Indwelling Cath Urine Culture - Preliminary NO GROWTH Resulted Laboratory Tests 12/12/19 05:09: White Blood Count 23.9*H, Red Blood Count 3.56L, Hemoglobin 10.8L, Hematocrit 32.7L, Mean Corpuscular Volume 92, Mean Corpuscular Hemoglobin 30.4, Mean Corpuscular Hemoglobin Concent 33.1, Red Cell Distribution Width 13.2, Platelet Count 140L, Mean Platelet Volume 8.8, Neutrophils (%) (Auto) , Lymphocytes (%) ( Auto) , Monocytes (%) (Auto) , Eosinophils (%) (Auto) , Basophils (%) (Auto) , Differential Total Cells Counted 100, Neutrophils % (Manual) 91H, Lymphocytes % (Manual) 3L, Monocytes % (Manual) 3, Eosinophils % (Manual) 0, Basophils % ( Manual) 0, Metamyelocytes % 2H, Band Neutrophils 1, Nucleated Red Blood Cells 1 , Platelet Estimate DecreasedL, Platelet Morphology Normal, Hypochromasia 1+, Anisocytosis 1+, Sodium Level 141, Potassium Level 3.4L, Chloride Level 102, Carbon Dioxide Level 31, Anion Gap 8, Blood Urea Nitrogen 66H, Creatinine 6.6H, Estimat Glomerular Filtration Rate 8.7, Glucose Level 151H, Calcium Level 8.8, Total Bilirubin 1.6H, Direct Bilirubin 1.1H, Aspartate Amino Transf (AST/SGOT) 61H, Alanine Aminotransferase (ALT/SGPT) 144H, Alkaline Phosphatase 159H, Total Protein 5.9L, Albumin 2.6L, Globulin 3.3, Albumin/Globulin Ratio 0.8L 12/12/19 11:10: Random Vancomycin Level [Pending] Current Medications Medications (Trade) Dose Ordered Sig/Vicki Route PRN Reason Start Time Stop Time Status Last Admin Dose Admin Acetaminophen (Tylenol) 650 mg Q4H PRN NG Temp >100.5 12/06/19 14:15 01/05/20 14:14 12/10/19 04:34 Acetaminophen (Tylenol) 650 mg Q4H PRN RECTAL Mild Pain (Pain Scale 1-3) 12/04/19 11:45 01/03/20 11:44 12/06/19 19:17 Cefepime HCl 500 mg/Dextrose 50 ml @ 100 mls/hr Q24HRS IV 12/10/19 23:00 12/17/19 22:59 12/11/19 22:07 Chlorhexidine Gluconate (Arely-Hex 2%) 1 applic DAILY@2000 TOPIC 12/05/19 20:00 03/04/20 19:59 12/11/19 20:04 Dextrose (Dextrose 50%) 25 ml Q30M PRN IV Hypoglycemia 11/29/19 14:15 02/27/20 14:14 Dextrose (Dextrose 50%) 50 ml Q30M PRN IV Hypoglycemia 11/29/19 14:15 02/27/20 14:14 Fentanyl Citrate 2500 mcg/Sodium Chloride 250 ml @ 0 mls/hr Q24H IVPB 12/06/19 02:00 12/13/19 01:59 12/12/19 12:17 Hydralazine HCl (Apresoline) 10 mg Q4H PRN IV For High Blood Pressure 11/29/19 15:15 02/27/20 15:14 Metronidazole 100 ml @ 100 mls/hr Q8HR IVPB 12/10/19 23:00 12/17/19 22:59 12/12/19 05:32 Midodrine (Pro-Amatine) 10 mg THREE TIMES A DAY ORAL 12/12/19 13:00 03/11/20 12:59 12/12/19 12:16 Norepinephrine Bitartrate 16 mg/ Dextrose 566 ml @ 0 mls/hr Q24H IV 12/06/19 09:00 01/05/20 08:59 12/12/19 08:25 Ondansetron HCl (Zofran) 4 mg Q6H PRN IVP Nausea & Vomiting 11/29/19 14:15 12/29/19 14:14 Pantoprazole (Protonix) 40 mg DAILY IVP 11/30/19 12:15 12/30/19 12:14 12/12/19 08:24 Potassium Chloride (K-Dur) 40 meq TWICE A DAY ORAL 12/11/19 09:30 03/10/20 09:29 12/12/19 08:24 Vancomycin HCl (Firvanq) 125 mg FOUR TIMES A DAY ORAL 12/10/19 21:00 12/17/19 20:59 12/12/19 12:15 Vancomycin HCl (Vanco rx to dose) 1 ea DAILY PRN MISC Per rx protocol 12/08/19 19:30 01/07/20 19:29 Vasopressin 100 units/Sodium Chloride 100 ml @ 0 mls/hr Q24H IV 12/06/19 09:00 01/05/20 08:59 12/06/19 09:03 Sushil Cortes MD Dec 12, 2019 12:21
--- NOTE | 2019-12-12 12:32 | General Progress Note ---
Assessment/Plan Status: unchanged Assessment/Plan: 59-year-old male with PMH of HTN presents with acute respiratory distress. #Acute Hypoxic Respiratory Failure s/p intubation #Severe sepsis #COVID19 positive #CAP #elevated d-dimer #Fevers - improved -Appreciate ICU level of care -s/p Intubation 12/03 -vent management per Pulm/ICU/CCM team -cont. droplet & isolation precautions -Transaminitis/d-dimer/fluctuating fevers likely reactive/ 2/2 COVID -cont. to monitor LFTs -sedation per pulm/ICU -s/p hydroxychloroquine -s/p actrema -prone position per Pulm -Pulm following, recs appreciated -ID, Dr. Rodriguez, following: Merrem, Vanc -cont. current management per ID/Pulm #loose stools -c diff negative -d/c PO vanco -immodium PRN #Pneumomediastinum #Subcutaneous emphysema -seen on abd XR -pt too high risk for bedside thoracostomy -d/w general sx and pulm/ICU #ALBARO #Hypernatremia #Hyperkalemia -likely 2/2 to above, COVID -kayexalate, insulin, D5 for hyperkalemia -cont. to montior -12/04: femoral HD cath placed -may need ultrafiltration -d/w Nephro, Dr. Soriano: HD per nephro #Transaminitis #Shock Liver -likely 2/2 to above/COVID -LFTs improving, ctm -abd us when off isolation -cont. NGT feeds -GI, Dr. Rdz, following, recs appreciated #Sinus Tachycardia 2/2 respiratory failure #HTN -hydralazine PRN -Cardio, , following: Echo after COVID negative DVT PPX: Lovenox Pt is at high risk of rapid decompensation and requires continued ICU level of care Prognosis grave/poor Time spent on encounter: 45 mins, 20 mins spent on coordination of care, reviewing tele monitor, discussed w/Pulm. Time of note doesn't reflect time of encounter. Subjective Allergies: Coded Allergies: No Known Allergies (Unverified , 11/29/19) Subjective Follow up for acute hypoxic resp failure, COVID19 positive, s/p intubation, multi-organ failure. Afebrile. Remains on vent, AC 20, 500 VT, 100% fio2, PEEP 10. Leukocytosis remains elevated. Pt remains intubated, unable to obtain ROS due to clinical picture. Objective Last 24 Hour Vital Signs Date Time Temp Pulse Resp B/P (MAP) Pulse Ox O2 Delivery O2 Flow Rate FiO2 12/12/19 12:17 Mechanical Ventilator 12/12/19 11:06 109 22 100 12/12/19 11:00 107 24 129/61 (83) 95 12/12/19 11:00 Mechanical Ventilator 12/12/19 10:00 Mechanical Ventilator 12/12/19 10:00 106 24 131/64 (86) 97 12/12/19 09:00 Mechanical Ventilator 12/12/19 09:00 104 25 131/65 (87) 98 12/12/19 08:25 129/68 12/12/19 08:00 102 12/12/19 08:00 100 12/12/19 08:00 Mechanical Ventilator 12/12/19 08:00 102 22 134/65 (88) 98 12/12/19 07:03 106 31 100 12/12/19 07:00 107 22 132/60 (84) 93 12/12/19 07:00 132/60 12/12/19 07:00 23 Mechanical Ventilator 100 12/12/19 06:30 108 21 132/63 (86) 94 12/12/19 06:00 110 18 132/59 (83) 92 12/12/19 06:00 132/59 12/12/19 06:00 18 Mechanical Ventilator 100 12/12/19 05:30 108 19 137/64 (88) 97 12/12/19 05:00 129/63 12/12/19 05:00 22 Mechanical Ventilator 100 12/12/19 05:00 106 22 129/63 (85) 99 12/12/19 04:34 106 24 100 12/12/19 04:30 104 25 135/67 (89) 99 12/12/19 04:14 104 12/12/19 04:00 98.6 97 24 145/119 (128) 99 12/12/19 04:00 Mechanical Ventilator 12/12/19 04:00 100 12/12/19 04:00 145/119 12/12/19 04:00 24 Mechanical Ventilator 100 12/12/19 03:53 23 Mechanical Ventilator 100 12/12/19 03:30 96 22 126/64 (84) 100 12/12/19 03:00 119/62 12/12/19 03:00 23 Mechanical Ventilator 100 12/12/19 03:00 98 23 119/62 (81) 100 12/12/19 02:42 103 23 100 12/12/19 02:30 96 22 122/64 (83) 100 12/12/19 02:00 94 23 120/63 (82) 100 12/12/19 02:00 120/64 12/12/19 02:00 23 Mechanical Ventilator 100 12/12/19 01:30 100 24 116/60 (78) 100 12/12/19 01:00 119/60 12/12/19 01:00 21 Mechanical Ventilator 100 12/12/19 01:00 101 21 119/60 (79) 100 12/12/19 00:57 104 23 100 12/12/19 00:30 98 22 120/60 (80) 100 12/12/19 00:00 97.8 99 22 116/62 (80) 100 12/12/19 00:00 116/62 12/12/19 00:00 22 Mechanical Ventilator 100 12/12/19 00:00 100 12/12/19 00:00 Mechanical Ventilator 12/11/19 23:30 100 24 117/60 (79) 100 12/11/19 23:18 106 25 100 12/11/19 23:01 98 12/11/19 23:00 95 26 124/64 (84) 100 12/11/19 23:00 124/64 12/11/19 23:00 26 Mechanical Ventilator 100 12/11/19 22:30 98 22 120/56 (77) 98 12/11/19 22:00 123/59 12/11/19 22:00 21 Mechanical Ventilator 100 12/11/19 22:00 97 21 123/59 (80) 100 12/11/19 21:30 101 22 121/58 (79) 100 12/11/19 21:00 114/60 12/11/19 21:00 23 Mechanical Ventilator 100 12/11/19 21:00 105 23 114/60 (78) 100 12/11/19 20:46 108 26 100 12/11/19 20:30 108 22 127/59 (81) 99 12/11/19 20:05 28 Mechanical Ventilator 100 12/11/19 20:00 Mechanical Ventilator 12/11/19 20:00 98/56 12/11/19 20:00 23 Mechanical Ventilator 100 12/11/19 20:00 100 12/11/19 20:00 98.5 104 20 98/56 (70) 99 12/11/19 19:30 103 23 129/69 (89) 99 12/11/19 19:22 104 12/11/19 19:00 105 23 143/62 (89) 96 12/11/19 18:45 104 24 100 12/11/19 18:30 106 18 118/56 (76) 98 12/11/19 18:00 106 22 106/53 (70) 90 12/11/19 17:30 107 23 96/52 (67) 92 12/11/19 17:00 110 22 101/51 (68) 91 12/11/19 16:00 Mechanical Ventilator 12/11/19 16:00 100 12/11/19 16:00 98.1 108 23 91/47 (62) 93 12/11/19 16:00 97 12/11/19 15:30 103 26 103/58 (73) 92 12/11/19 15:07 108 25 100 12/11/19 15:00 108 22 111/58 (75) 96 12/11/19 14:30 98 21 108/61 (77) 98 12/11/19 14:00 96 22 110/62 (78) 100 12/11/19 13:30 94 22 108/62 (77) 100 12/11/19 13:00 93 22 114/64 (81) 100 12/11/19 12:30 96 21 109/60 (76) 98 Intake and Output 12/11/19 12/12/19 19:00 07:00 Intake Total 1378.4525 ml 1468.25 ml Output Total 150 ml 3000 ml Balance 1228.4525 ml -1531.75 ml IV Total 888.4525 ml 1013.25 ml Tube Feeding 420 ml 405 ml Other 70 ml 50 ml Output Urine Total 0 ml 0 ml Stool Total 150 ml Hemodialysis UF 3000 ml # Bowel Movements 50 Laboratory Tests 12/12/19 05:09: White Blood Count 23.9*H, Red Blood Count 3.56L, Hemoglobin 10.8L, Hematocrit 32.7L, Mean Corpuscular Volume 92, Mean Corpuscular Hemoglobin 30.4, Mean Corpuscular Hemoglobin Concent 33.1, Red Cell Distribution Width 13.2, Platelet Count 140L, Mean Platelet Volume 8.8, Neutrophils (%) (Auto) , Lymphocytes (%) ( Auto) , Monocytes (%) (Auto) , Eosinophils (%) (Auto) , Basophils (%) (Auto) , Differential Total Cells Counted 100, Neutrophils % (Manual) 91H, Lymphocytes % (Manual) 3L, Monocytes % (Manual) 3, Eosinophils % (Manual) 0, Basophils % ( Manual) 0, Metamyelocytes % 2H, Band Neutrophils 1, Nucleated Red Blood Cells 1 , Platelet Estimate DecreasedL, Platelet Morphology Normal, Hypochromasia 1+, Anisocytosis 1+, Sodium Level 141, Potassium Level 3.4L, Chloride Level 102, Carbon Dioxide Level 31, Anion Gap 8, Blood Urea Nitrogen 66H, Creatinine 6.6H, Estimat Glomerular Filtration Rate 8.7, Glucose Level 151H, Calcium Level 8.8, Total Bilirubin 1.6H, Direct Bilirubin 1.1H, Aspartate Amino Transf (AST/SGOT) 61H, Alanine Aminotransferase (ALT/SGPT) 144H, Alkaline Phosphatase 159H, Total Protein 5.9L, Albumin 2.6L, Globulin 3.3, Albumin/Globulin Ratio 0.8L 12/12/19 11:10: Random Vancomycin Level 18.7 Height (Feet): 5 Height (Inches): 6.00 Weight (Pounds): 157 Objective General Appearance: intubated, OG tube in place, in prone position Cardiovascular: Sinus tach on tele Respiratory/Chest: ETT in place, equal rise in lungs b/l Abdomen: non distended Ext: no edema noted Theodore Aguayo M.D. Dec 12, 2019 12:32
--- NOTE | 2019-12-12 12:43 | Consultation ---
History of Present Illness General Chief Complaint: Dyspnea/Respdistress Present Illness Allergies: Coded Allergies: No Known Allergies (Unverified , 11/29/19) Patient History Healthcare decision maker N Resuscitation status Full Code Advanced Directive on File Physical Exam Last 24 Hour Vital Signs Date Time Temp Pulse Resp B/P (MAP) Pulse Ox O2 Delivery O2 Flow Rate FiO2 12/12/19 12:17 Mechanical Ventilator 12/12/19 11:06 109 22 100 12/12/19 11:00 107 24 129/61 (83) 95 12/12/19 11:00 Mechanical Ventilator 12/12/19 10:00 Mechanical Ventilator 12/12/19 10:00 106 24 131/64 (86) 97 12/12/19 09:00 Mechanical Ventilator 12/12/19 09:00 104 25 131/65 (87) 98 12/12/19 08:25 129/68 12/12/19 08:00 102 12/12/19 08:00 100 12/12/19 08:00 Mechanical Ventilator 12/12/19 08:00 102 22 134/65 (88) 98 12/12/19 07:03 106 31 100 12/12/19 07:00 107 22 132/60 (84) 93 12/12/19 07:00 132/60 12/12/19 07:00 23 Mechanical Ventilator 100 12/12/19 06:30 108 21 132/63 (86) 94 12/12/19 06:00 110 18 132/59 (83) 92 12/12/19 06:00 132/59 12/12/19 06:00 18 Mechanical Ventilator 100 12/12/19 05:30 108 19 137/64 (88) 97 12/12/19 05:00 129/63 12/12/19 05:00 22 Mechanical Ventilator 100 12/12/19 05:00 106 22 129/63 (85) 99 12/12/19 04:34 106 24 100 12/12/19 04:30 104 25 135/67 (89) 99 12/12/19 04:14 104 12/12/19 04:00 98.6 97 24 145/119 (128) 99 12/12/19 04:00 Mechanical Ventilator 12/12/19 04:00 100 12/12/19 04:00 145/119 12/12/19 04:00 24 Mechanical Ventilator 100 12/12/19 03:53 23 Mechanical Ventilator 100 12/12/19 03:30 96 22 126/64 (84) 100 12/12/19 03:00 119/62 12/12/19 03:00 23 Mechanical Ventilator 100 12/12/19 03:00 98 23 119/62 (81) 100 12/12/19 02:42 103 23 100 12/12/19 02:30 96 22 122/64 (83) 100 12/12/19 02:00 94 23 120/63 (82) 100 12/12/19 02:00 120/64 12/12/19 02:00 23 Mechanical Ventilator 100 12/12/19 01:30 100 24 116/60 (78) 100 12/12/19 01:00 119/60 12/12/19 01:00 21 Mechanical Ventilator 100 12/12/19 01:00 101 21 119/60 (79) 100 12/12/19 00:57 104 23 100 12/12/19 00:30 98 22 120/60 (80) 100 12/12/19 00:00 97.8 99 22 116/62 (80) 100 12/12/19 00:00 116/62 12/12/19 00:00 22 Mechanical Ventilator 100 12/12/19 00:00 100 12/12/19 00:00 Mechanical Ventilator 12/11/19 23:30 100 24 117/60 (79) 100 12/11/19 23:18 106 25 100 12/11/19 23:01 98 12/11/19 23:00 95 26 124/64 (84) 100 12/11/19 23:00 124/64 12/11/19 23:00 26 Mechanical Ventilator 100 12/11/19 22:30 98 22 120/56 (77) 98 12/11/19 22:00 123/59 12/11/19 22:00 21 Mechanical Ventilator 100 12/11/19 22:00 97 21 123/59 (80) 100 12/11/19 21:30 101 22 121/58 (79) 100 12/11/19 21:00 114/60 12/11/19 21:00 23 Mechanical Ventilator 100 12/11/19 21:00 105 23 114/60 (78) 100 12/11/19 20:46 108 26 100 12/11/19 20:30 108 22 127/59 (81) 99 12/11/19 20:05 28 Mechanical Ventilator 100 12/11/19 20:00 Mechanical Ventilator 12/11/19 20:00 98/56 12/11/19 20:00 23 Mechanical Ventilator 100 12/11/19 20:00 100 12/11/19 20:00 98.5 104 20 98/56 (70) 99 12/11/19 19:30 103 23 129/69 (89) 99 12/11/19 19:22 104 12/11/19 19:00 105 23 143/62 (89) 96 12/11/19 18:45 104 24 100 12/11/19 18:30 106 18 118/56 (76) 98 12/11/19 18:00 106 22 106/53 (70) 90 12/11/19 17:30 107 23 96/52 (67) 92 12/11/19 17:00 110 22 101/51 (68) 91 12/11/19 16:00 Mechanical Ventilator 12/11/19 16:00 100 12/11/19 16:00 98.1 108 23 91/47 (62) 93 12/11/19 16:00 97 12/11/19 15:30 103 26 103/58 (73) 92 12/11/19 15:07 108 25 100 12/11/19 15:00 108 22 111/58 (75) 96 12/11/19 14:30 98 21 108/61 (77) 98 12/11/19 14:00 96 22 110/62 (78) 100 12/11/19 13:30 94 22 108/62 (77) 100 12/11/19 13:00 93 22 114/64 (81) 100 Intake and Output 12/11/19 12/12/19 19:00 07:00 Intake Total 1378.4525 ml 1468.25 ml Output Total 150 ml 3000 ml Balance 1228.4525 ml -1531.75 ml IV Total 888.4525 ml 1013.25 ml Tube Feeding 420 ml 405 ml Other 70 ml 50 ml Output Urine Total 0 ml 0 ml Stool Total 150 ml Hemodialysis UF 3000 ml # Bowel Movements 50 Laboratory Tests Test 12/12/19 05:09 12/12/19 11:10 White Blood Count 23.9 K/UL (4.8-10.8) *H Red Blood Count 3.56 M/UL (4.70-6.10) L Hemoglobin 10.8 G/DL (14.2-18.0) L Hematocrit 32.7 % (42.0-52.0) L Mean Corpuscular Volume 92 FL (80-99) Mean Corpuscular Hemoglobin 30.4 PG (27.0-31.0) Mean Corpuscular Hemoglobin Concent 33.1 G/DL (32.0-36.0) Red Cell Distribution Width 13.2 % (11.6-14.8) Platelet Count 140 K/UL (150-450) L Mean Platelet Volume 8.8 FL (6.5-10.1) Neutrophils (%) (Auto) % (45.0-75.0) Lymphocytes (%) (Auto) % (20.0-45.0) Monocytes (%) (Auto) % (1.0-10.0) Eosinophils (%) (Auto) % (0.0-3.0) Basophils (%) (Auto) % (0.0-2.0) Differential Total Cells Counted 100 Neutrophils % (Manual) 91 % (45-75) H Lymphocytes % (Manual) 3 % (20-45) L Monocytes % (Manual) 3 % (1-10) Eosinophils % (Manual) 0 % (0-3) Basophils % (Manual) 0 % (0-2) Metamyelocytes % 2 % (0-0) H Band Neutrophils 1 % (0-8) Nucleated Red Blood Cells 1 /100 WBC Platelet Estimate Decreased L Platelet Morphology Normal Hypochromasia 1+ Anisocytosis 1+ Sodium Level 141 MMOL/L (136-145) Potassium Level 3.4 MMOL/L (3.5-5.1) L Chloride Level 102 MMOL/L (98-107) Carbon Dioxide Level 31 MMOL/L (21-32) Anion Gap 8 mmol/L (5-15) Blood Urea Nitrogen 66 mg/dL (7-18) H Creatinine 6.6 MG/DL (0.55-1.30) H Estimat Glomerular Filtration Rate 8.7 mL/min (>60) Glucose Level 151 MG/DL (74-106) H Calcium Level 8.8 MG/DL (8.5-10.1) Total Bilirubin 1.6 MG/DL (0.2-1.0) H Direct Bilirubin 1.1 MG/DL (0.0-0.3) H Aspartate Amino Transf (AST/SGOT) 61 U/L (15-37) H Alanine Aminotransferase (ALT/SGPT) 144 U/L (12-78) H Alkaline Phosphatase 159 U/L (46-116) H Total Protein 5.9 G/DL (6.4-8.2) L Albumin 2.6 G/DL (3.4-5.0) L Globulin 3.3 g/dL Albumin/Globulin Ratio 0.8 (1.0-2.7) L Random Vancomycin Level 18.7 ug/mL Microbiology Date/Time Source Procedure Growth Status 12/11/19 22:50 Stool Clostridium difficile Toxin Assay - Final Complete 12/11/19 20:33 Indwelling Cath Urine Culture - Preliminary NO GROWTH Resulted Height (Feet): 5 Height (Inches): 6.00 Weight (Pounds): 157 Medications Current Medications Medications (Trade) Dose Ordered Sig/Vicki Route PRN Reason Start Time Stop Time Status Last Admin Dose Admin Acetaminophen (Tylenol) 650 mg Q4H PRN NG Temp >100.5 12/06/19 14:15 01/05/20 14:14 12/10/19 04:34 Acetaminophen (Tylenol) 650 mg Q4H PRN RECTAL Mild Pain (Pain Scale 1-3) 12/04/19 11:45 01/03/20 11:44 12/06/19 19:17 Cefepime HCl 500 mg/Dextrose 50 ml @ 100 mls/hr Q24HRS IV 12/10/19 23:00 12/17/19 22:59 12/11/19 22:07 Chlorhexidine Gluconate (Arely-Hex 2%) 1 applic DAILY@2000 TOPIC 12/05/19 20:00 03/04/20 19:59 12/11/19 20:04 Dextrose (Dextrose 50%) 25 ml Q30M PRN IV Hypoglycemia 11/29/19 14:15 02/27/20 14:14 Dextrose (Dextrose 50%) 50 ml Q30M PRN IV Hypoglycemia 11/29/19 14:15 02/27/20 14:14 Fentanyl Citrate 2500 mcg/Sodium Chloride 250 ml @ 0 mls/hr Q24H IVPB 12/06/19 02:00 12/13/19 01:59 12/12/19 12:17 Hydralazine HCl (Apresoline) 10 mg Q4H PRN IV For High Blood Pressure 11/29/19 15:15 02/27/20 15:14 Loperamide HCl (Imodium) 2 mg Q6H PRN NG Diarrhea 12/12/19 12:45 01/11/20 12:44 UNV Metronidazole 100 ml @ 100 mls/hr Q8HR IVPB 12/10/19 23:00 12/17/19 22:59 12/12/19 05:32 Midodrine (Pro-Amatine) 10 mg THREE TIMES A DAY ORAL 12/12/19 13:00 03/11/20 12:59 12/12/19 12:16 Norepinephrine Bitartrate 16 mg/ Dextrose 566 ml @ 0 mls/hr Q24H IV 12/06/19 09:00 01/05/20 08:59 12/12/19 08:25 Ondansetron HCl (Zofran) 4 mg Q6H PRN IVP Nausea & Vomiting 11/29/19 14:15 12/29/19 14:14 Pantoprazole (Protonix) 40 mg DAILY IVP 11/30/19 12:15 12/30/19 12:14 12/12/19 08:24 Potassium Chloride (K-Dur) 40 meq TWICE A DAY ORAL 12/11/19 09:30 03/10/20 09:29 12/12/19 08:24 Vancomycin HCl (Vanco rx to dose) 1 ea DAILY PRN MISC Per rx protocol 12/08/19 19:30 01/07/20 19:29 Vasopressin 100 units/Sodium Chloride 100 ml @ 0 mls/hr Q24H IV 12/06/19 09:00 01/05/20 08:59 12/06/19 09:03 Assessment/Plan Assessment/Plan: Hematology Consultation JOSE ANGEL WALSH: Cathy and Esme Aguayo RFC: Ongoing leukocytosis, metamyelocytes on smear DOS 12/12/2019 ID [id number] old male brought in by EMS for difficulty breathing for the past 3 days. The patient's son is positive for COVID-19 and he has been living with his son. EMS state that on their arrival his room air oxygen saturation was 65%. He was put on 15 L nonrebreather mask and had improvement in his O2 saturations to the mid 90s. There are no other complaints. Now with covid19++, intubated, on vent, with HD, rfv jia placed. Coded Allergies: No Known Allergies (Unverified , 11/29/19) COVID-19 Screening Contact w/high risk pt: Yes Recent Travel to affected area: No Experienced COVID-19 symptoms?: Yes COVID-19 symptoms experienced: Shortness of Breath, Cough Patient History Past Medical History: see triage record, HTN Social History: Denies: smoking, alcohol use, drug use Reviewed Nursing Documentation: PMH: Agreed; PSxH: Agreed Nursing Documentation-PMH Past Medical History: No History, Except For Hx Hypertension: Yes Review of Systems All Other Systems: negative except mentioned in HPI, on vent Physical Exam Sp02 EP Interpretation: reviewed, abnormal General Appearance: alert, GCS 15, Tachypnea Heent: nc, at+ ng Respiratory: normal breath sounds, no retraction, vent++ Cardiovascular: no edema, tachycardia Gastrointestinal: normal inspection Neurologic unresponsive on vent Psychiatric: judgement/insight normal, memory normal, mood/affect normal, no suicidal/homicidal ideation Ext: with hd fem jia in place Labs noted Imaging: reviewed Assessment and Recs # Leukocytosis/elevated white blood cell count, unspecified likely related to underlying stress reaction and addition of infection, covid19++ on vent, intubated --> have reviewed peripheral smear and bandemia/neutrophilia noted --> continue antibiotics if they have been started by ID team --> on broad spectrum abx --> monitor for resolution --> smear is noted, with metamyelocytes # Anemia of chronic disease due to underlying chronic medical issues, multifactorial v Gi bleed --> Anemia workup has been ordered, rule out gi bleed --> No evidence of hemolysis is noted, peripheral smear has been reviewed. --> Hgb goal >7. Transfuse prn. --> Epogen or iron at this time is not particularly indicated --> Medications have been reviewed --> low threshold for gi evaluation in case has occult + # Thrombocytopenia also likely covid relaetd --> supportive care -> as per id # Acute Hypoxic Respiratory Failure s/p intubation --> now on vent --> as per Dr. Cortes, weaning # COVID19 positive --> abx # Pneumomediastinum --> monitor for expansion # Subcutaneous emphysema --> too high risk for bedside thoracostomy # ALBARO on ckd --> hd as needed # 12/04: femoral HD cath placed DW Rn and appreciate consultation Mj Zhu MD Dec 12, 2019 12:43
--- NOTE | 2019-12-12 14:15 | Cardiac Electrophysiology PN ---
Assessment/Plan Assessment/Plan 1. Atrial fib with RVR 170 right before intubation on 12/04/19. Converted to Sinus tach after intubation. Troponin 0.77. No further atrial fib. In SR 2. Sinus Tachycardia due to respiratory failure and COVID-19 pneumonia. On IV antibiotic per ID. Echo pending. Was also proned. 3. Septic shock. On Levophed 12 Mcg and iv Abx. 4. Respiratory failure, on the Vent by Dr. Cortes. 100% Fio2 PEEP 10 and is proned 5. Acute renal failure. On HD per Dr. Sanchez via RFV [place] 6. Full code DW RN Subjective Subjective Intubated in ICU on 100% Fio2 and PEEP 10 on Levo 12 mcg. Was proned for 10 hours. Atrial fib with RVR 160s on 12/04/19 but no recurrence. In SR Getting HD today. Yesterday also had 3 liter out. Objective Last 24 Hour Vital Signs Date Time Temp Pulse Resp B/P (MAP) Pulse Ox O2 Delivery O2 Flow Rate FiO2 12/12/19 12:17 Mechanical Ventilator 12/12/19 11:06 109 22 100 12/12/19 11:00 107 24 129/61 (83) 95 12/12/19 11:00 Mechanical Ventilator 12/12/19 10:00 Mechanical Ventilator 12/12/19 10:00 106 24 131/64 (86) 97 12/12/19 09:00 Mechanical Ventilator 12/12/19 09:00 104 25 131/65 (87) 98 12/12/19 08:25 129/68 12/12/19 08:00 102 12/12/19 08:00 100 12/12/19 08:00 Mechanical Ventilator 12/12/19 08:00 102 22 134/65 (88) 98 12/12/19 07:03 106 31 100 12/12/19 07:00 107 22 132/60 (84) 93 12/12/19 07:00 132/60 12/12/19 07:00 23 Mechanical Ventilator 100 12/12/19 06:30 108 21 132/63 (86) 94 12/12/19 06:00 110 18 132/59 (83) 92 12/12/19 06:00 132/59 12/12/19 06:00 18 Mechanical Ventilator 100 12/12/19 05:30 108 19 137/64 (88) 97 12/12/19 05:00 129/63 12/12/19 05:00 22 Mechanical Ventilator 100 12/12/19 05:00 106 22 129/63 (85) 99 12/12/19 04:34 106 24 100 12/12/19 04:30 104 25 135/67 (89) 99 12/12/19 04:14 104 12/12/19 04:00 98.6 97 24 145/119 (128) 99 12/12/19 04:00 Mechanical Ventilator 12/12/19 04:00 100 12/12/19 04:00 145/119 12/12/19 04:00 24 Mechanical Ventilator 100 12/12/19 03:53 23 Mechanical Ventilator 100 12/12/19 03:30 96 22 126/64 (84) 100 12/12/19 03:00 119/62 12/12/19 03:00 23 Mechanical Ventilator 100 12/12/19 03:00 98 23 119/62 (81) 100 12/12/19 02:42 103 23 100 12/12/19 02:30 96 22 122/64 (83) 100 12/12/19 02:00 94 23 120/63 (82) 100 12/12/19 02:00 120/64 12/12/19 02:00 23 Mechanical Ventilator 100 12/12/19 01:30 100 24 116/60 (78) 100 12/12/19 01:00 119/60 12/12/19 01:00 21 Mechanical Ventilator 100 12/12/19 01:00 101 21 119/60 (79) 100 12/12/19 00:57 104 23 100 12/12/19 00:30 98 22 120/60 (80) 100 12/12/19 00:00 97.8 99 22 116/62 (80) 100 12/12/19 00:00 116/62 12/12/19 00:00 22 Mechanical Ventilator 100 12/12/19 00:00 100 12/12/19 00:00 Mechanical Ventilator 12/11/19 23:30 100 24 117/60 (79) 100 12/11/19 23:18 106 25 100 12/11/19 23:01 98 12/11/19 23:00 95 26 124/64 (84) 100 12/11/19 23:00 124/64 12/11/19 23:00 26 Mechanical Ventilator 100 12/11/19 22:30 98 22 120/56 (77) 98 12/11/19 22:00 123/59 12/11/19 22:00 21 Mechanical Ventilator 100 12/11/19 22:00 97 21 123/59 (80) 100 12/11/19 21:30 101 22 121/58 (79) 100 12/11/19 21:00 114/60 12/11/19 21:00 23 Mechanical Ventilator 100 12/11/19 21:00 105 23 114/60 (78) 100 12/11/19 20:46 108 26 100 12/11/19 20:30 108 22 127/59 (81) 99 12/11/19 20:05 28 Mechanical Ventilator 100 12/11/19 20:00 Mechanical Ventilator 12/11/19 20:00 98/56 12/11/19 20:00 23 Mechanical Ventilator 100 12/11/19 20:00 100 12/11/19 20:00 98.5 104 20 98/56 (70) 99 12/11/19 19:30 103 23 129/69 (89) 99 12/11/19 19:22 104 12/11/19 19:00 105 23 143/62 (89) 96 12/11/19 18:45 104 24 100 12/11/19 18:30 106 18 118/56 (76) 98 12/11/19 18:00 106 22 106/53 (70) 90 12/11/19 17:30 107 23 96/52 (67) 92 12/11/19 17:00 110 22 101/51 (68) 91 12/11/19 16:00 Mechanical Ventilator 12/11/19 16:00 100 12/11/19 16:00 98.1 108 23 91/47 (62) 93 12/11/19 16:00 97 12/11/19 15:30 103 26 103/58 (73) 92 12/11/19 15:07 108 25 100 12/11/19 15:00 108 22 111/58 (75) 96 12/11/19 14:30 98 21 108/61 (77) 98 Intake and Output 12/11/19 12/12/19 19:00 07:00 Intake Total 1378.4525 ml 1468.25 ml Output Total 150 ml 3000 ml Balance 1228.4525 ml -1531.75 ml IV Total 888.4525 ml 1013.25 ml Tube Feeding 420 ml 405 ml Other 70 ml 50 ml Output Urine Total 0 ml 0 ml Stool Total 150 ml Hemodialysis UF 3000 ml # Bowel Movements 50 Laboratory Tests Test 12/12/19 05:09 12/12/19 11:10 White Blood Count 23.9 K/UL (4.8-10.8) *H Red Blood Count 3.56 M/UL (4.70-6.10) L Hemoglobin 10.8 G/DL (14.2-18.0) L Hematocrit 32.7 % (42.0-52.0) L Mean Corpuscular Volume 92 FL (80-99) Mean Corpuscular Hemoglobin 30.4 PG (27.0-31.0) Mean Corpuscular Hemoglobin Concent 33.1 G/DL (32.0-36.0) Red Cell Distribution Width 13.2 % (11.6-14.8) Platelet Count 140 K/UL (150-450) L Mean Platelet Volume 8.8 FL (6.5-10.1) Neutrophils (%) (Auto) % (45.0-75.0) Lymphocytes (%) (Auto) % (20.0-45.0) Monocytes (%) (Auto) % (1.0-10.0) Eosinophils (%) (Auto) % (0.0-3.0) Basophils (%) (Auto) % (0.0-2.0) Differential Total Cells Counted 100 Neutrophils % (Manual) 91 % (45-75) H Lymphocytes % (Manual) 3 % (20-45) L Monocytes % (Manual) 3 % (1-10) Eosinophils % (Manual) 0 % (0-3) Basophils % (Manual) 0 % (0-2) Metamyelocytes % 2 % (0-0) H Band Neutrophils 1 % (0-8) Nucleated Red Blood Cells 1 /100 WBC Platelet Estimate Decreased L Platelet Morphology Normal Hypochromasia 1+ Anisocytosis 1+ Sodium Level 141 MMOL/L (136-145) Potassium Level 3.4 MMOL/L (3.5-5.1) L Chloride Level 102 MMOL/L (98-107) Carbon Dioxide Level 31 MMOL/L (21-32) Anion Gap 8 mmol/L (5-15) Blood Urea Nitrogen 66 mg/dL (7-18) H Creatinine 6.6 MG/DL (0.55-1.30) H Estimat Glomerular Filtration Rate 8.7 mL/min (>60) Glucose Level 151 MG/DL (74-106) H Calcium Level 8.8 MG/DL (8.5-10.1) Total Bilirubin 1.6 MG/DL (0.2-1.0) H Direct Bilirubin 1.1 MG/DL (0.0-0.3) H Aspartate Amino Transf (AST/SGOT) 61 U/L (15-37) H Alanine Aminotransferase (ALT/SGPT) 144 U/L (12-78) H Alkaline Phosphatase 159 U/L (46-116) H Total Protein 5.9 G/DL (6.4-8.2) L Albumin 2.6 G/DL (3.4-5.0) L Globulin 3.3 g/dL Albumin/Globulin Ratio 0.8 (1.0-2.7) L Random Vancomycin Level 18.7 ug/mL Microbiology Date/Time Source Procedure Growth Status 12/10/19 21:15 Blood Blood Culture - Preliminary NO GROWTH AFTER 24 HOURS Resulted 12/10/19 21:00 Blood Blood Culture - Preliminary NO GROWTH AFTER 24 HOURS Resulted 12/11/19 22:50 Stool Clostridium difficile Toxin Assay - Final Complete 12/11/19 20:33 Indwelling Cath Urine Culture - Preliminary NO GROWTH Resulted Objective HEAD AND NECK: Orally intubated No JVD LUNGS: Decreased breath sounds. Coarse rhonchi. CARDIOVASCULAR: Tachycardic S1 and S2 with no gallop. ABDOMEN: Soft. EXTREMITIES: 1 plus pitting edema. RFV [place] in place Raul Appiah MD Dec 12, 2019 14:15
--- NOTE | 2019-12-12 14:53 | NUR ---
NURSE NOTES: PT TURNED SUPINE. DESATED TO 60"S, PT SUCTIONED, NO INCREASE IN O2SAT. PULSE OX CHANGED. AIRWAY CLEARED, SECRETIONS LIGHT KLEIN IN COLOR. TUBE FEEDING ON HOLD. SAT INCREASED TO 86%. CALLED MD YI REGARDING POSSIBLE VENT CHANGES. FI02 100%, PEEP 7.
--- NOTE | 2019-12-12 15:19 | NUR ---
NURSE NOTES: CALLED RADIOLOGY, INFORMED THAT PT SUPINE, CAN CONDUCT CXR.
--- NOTE | 2019-12-12 16:15 | NUR ---
NURSE NOTES: MD SETHI HERE TO SEE PT. INQUIRED ABOUT NGT FEEDING BEING HELD. INFORMED DRElda ABOUT POSSIBLE ASPIRATION, PT DESATED TO 60'SWHILE PRONE WITH FEEDING, TF PLACED ON HOLD. STATES TO CONTINUE ONCE SATS STABLE.
--- NOTE | 2019-12-12 16:18 | NUR ---
NURSE NOTES: H.Nina RN HERE TO START H.D. PT ON LEVOPHED 12MCG/MIN. BP 107/56, SATS 90%. HR 120'S.
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
[2019-12-12] MEDS ORDERED: Vancomycin 500 MG in NS 110 ML IVPB SCH (18:00)
--- NOTE | 2019-12-12 18:32 | NUR ---
NURSE NOTES: PT SUPINE. RECEIVING IN H.D. BP STABLE. WILL CONTINUE TO MONITOR PT.
--- NOTE | 2019-12-12 19:44 | NUR ---
HAND-OFF: Report given to riky moore. pt in no acute distress.
--- NOTE | 2019-12-12 19:45 | NUR ---
NURSE NOTES: Received report from Jayda LACKEY. Upon visual inspection, patient presents in no acute distress. Patient sedated. Attached to monitor; vitals stable to baseline. Endorsed plan for proning at 0400; discussed plan with RT. HD nurse at bedside; pt currently undergoing hemodialysis. Will continue to monitor closely.
--- NOTE | 2019-12-12 20:00 | NUR ---
NURSE NOTES: Patient done with hemodialysis; 3L out. Radiology at bedside for CXR. Patient tolerated well. Patient and vitals remain stable to baseline.
--- NOTE | 2019-12-12 20:47 | Infectious Diseases Prog Note ---
Assessment/Plan Assessment/Plan ASSESSMENT AND PLAN: 1. covid-19 virus infection with pna, rule out bacterial pna, sepsis/shock, fevers, leukocytosis vent, respiratory failure, ? 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 negative - s/p tocilizumab - critical - getting HD - poor prognosis - fever curve better 2. Hypertension. 3. No known allergies. 4. Social history negative. 5. Family history noncontributory. 6. MAR was noted. 7. Case discussed with RN. 8. Continue treatment per primary consultants. Subjective Constitutional: Reports: fatigue, other - sedated, on pressors, on vent ; Denies: fever HEENT: Denies: congestion Respiratory: Denies: shortness of breath Cardiovascular: Denies: chest pain Gastrointestinal/Abdominal: Denies: nausea, vomiting, diarrhea Genitourinary: Reports: other - barnes Psychiatric: Reports: other - NA Skin: Denies: rash Hematologic: Denies: bleeding Musculoskeletal: Reports: other - NA Allergies: Coded Allergies: No Known Allergies (Unverified , 11/29/19) Objective Vital Signs Last 24 Hour Vital Signs Date Time Temp Pulse Resp B/P (MAP) Pulse Ox O2 Delivery O2 Flow Rate FiO2 12/12/19 19:24 105 30 100 12/12/19 19:00 112 6 96/55 (69) 97 12/12/19 18:30 108 11 102/59 (73) 97 12/12/19 18:00 107 8 110/66 (81) 96 12/12/19 18:00 Mechanical Ventilator 12/12/19 17:00 Mechanical Ventilator 12/12/19 17:00 107 17 86/72 (77) 96 12/12/19 16:24 117 17 105/53 (70) 91 12/12/19 16:04 100 12/12/19 16:00 121 24 103/54 (70) 80 12/12/19 16:00 Mechanical Ventilator 12/12/19 16:00 100 12/12/19 16:00 113 12/12/19 16:00 Mechanical Ventilator 12/12/19 15:00 Mechanical Ventilator 12/12/19 15:00 97.3 116 20 112/55 (74) 85 12/12/19 14:45 116 28 100 12/12/19 14:00 111 19 120/57 (78) 91 12/12/19 14:00 Mechanical Ventilator 12/12/19 13:00 111 20 132/59 (83) 91 12/12/19 12:17 Mechanical Ventilator 12/12/19 12:00 110 12/12/19 12:00 Mechanical Ventilator 12/12/19 12:00 100 12/12/19 12:00 114 24 129/63 (85) 94 12/12/19 11:06 109 22 100 12/12/19 11:00 107 24 129/61 (83) 95 12/12/19 11:00 Mechanical Ventilator 12/12/19 10:00 Mechanical Ventilator 12/12/19 10:00 106 24 131/64 (86) 97 12/12/19 09:00 Mechanical Ventilator 12/12/19 09:00 104 25 131/65 (87) 98 12/12/19 08:25 129/68 12/12/19 08:00 102 12/12/19 08:00 100 12/12/19 08:00 Mechanical Ventilator 12/12/19 08:00 102 22 134/65 (88) 98 12/12/19 07:03 106 31 100 12/12/19 07:00 107 22 132/60 (84) 93 12/12/19 07:00 132/60 12/12/19 07:00 23 Mechanical Ventilator 100 12/12/19 06:30 108 21 132/63 (86) 94 12/12/19 06:00 110 18 132/59 (83) 92 12/12/19 06:00 132/59 12/12/19 06:00 18 Mechanical Ventilator 100 12/12/19 05:30 108 19 137/64 (88) 97 12/12/19 05:00 129/63 12/12/19 05:00 22 Mechanical Ventilator 100 12/12/19 05:00 106 22 129/63 (85) 99 12/12/19 04:34 106 24 100 12/12/19 04:30 104 25 135/67 (89) 99 12/12/19 04:14 104 12/12/19 04:00 98.6 97 24 145/119 (128) 99 12/12/19 04:00 Mechanical Ventilator 12/12/19 04:00 100 12/12/19 04:00 145/119 12/12/19 04:00 24 Mechanical Ventilator 100 12/12/19 03:53 23 Mechanical Ventilator 100 12/12/19 03:30 96 22 126/64 (84) 100 12/12/19 03:00 119/62 12/12/19 03:00 23 Mechanical Ventilator 100 12/12/19 03:00 98 23 119/62 (81) 100 12/12/19 02:42 103 23 100 12/12/19 02:30 96 22 122/64 (83) 100 12/12/19 02:00 94 23 120/63 (82) 100 12/12/19 02:00 120/64 12/12/19 02:00 23 Mechanical Ventilator 100 12/12/19 01:30 100 24 116/60 (78) 100 12/12/19 01:00 119/60 12/12/19 01:00 21 Mechanical Ventilator 100 12/12/19 01:00 101 21 119/60 (79) 100 12/12/19 00:57 104 23 100 12/12/19 00:30 98 22 120/60 (80) 100 12/12/19 00:00 97.8 99 22 116/62 (80) 100 12/12/19 00:00 116/62 12/12/19 00:00 22 Mechanical Ventilator 100 12/12/19 00:00 100 12/12/19 00:00 Mechanical Ventilator 12/11/19 23:30 100 24 117/60 (79) 100 12/11/19 23:18 106 25 100 12/11/19 23:01 98 12/11/19 23:00 95 26 124/64 (84) 100 12/11/19 23:00 124/64 12/11/19 23:00 26 Mechanical Ventilator 100 12/11/19 22:30 98 22 120/56 (77) 98 12/11/19 22:00 123/59 12/11/19 22:00 21 Mechanical Ventilator 100 12/11/19 22:00 97 21 123/59 (80) 100 12/11/19 21:30 101 22 121/58 (79) 100 12/11/19 21:00 114/60 12/11/19 21:00 23 Mechanical Ventilator 100 12/11/19 21:00 105 23 114/60 (78) 100 12/11/19 20:46 108 26 100 Height (Feet): 5 Height (Inches): 6.00 Weight (Pounds): 157 General Appearance: other - on vent and pressors - on 15 mcqs levophed HEENT: normocephalic, atraumatic, no JVD, other - oral - intubated Respiratory/Chest: crackles/rales, rhonchi - bilaterally Cardiovascular: normal rate, regular rhythm, no gallop/murmur Abdomen: normal bowel sounds, soft, non tender, no organomegaly, non distended Genitourinary: other - + barnes - urine slt cloudy Extremities: no cyanosis Skin: no rash Neurologic/Psychiatric: other - sedated and weak Lymphatic: no neck adenopathy Musculoskeletal: no effusion Objective Chest x-ray - 12/02/19 - Procedure: XRAY Chest 1v EXAM: XR Chest, 1 View CLINICAL HISTORY: ABN CHST TECHNIQUE: Frontal view of the chest. COMPARISON: Chest x-ray dated 11/29/19 FINDINGS: Lungs: Persistent diffuse peripheral groundglass opacities, not significantly changed, concerning for pneumonia. Pleural space: Unremarkable. The costophrenic angles are sharp. No visible pneumothorax. Heart: Unremarkable. No cardiomegaly. Mediastinum: Unremarkable. Bones/joints: Mild degenerative changes throughout the visualized spine. Tubes, lines and devices: Telemetry leads overlie the thorax. IMPRESSION: No significant change compared to the prior chest x-ray. Persistent diffuse peripheral groundglass opacities, concerning for pneumonia. Chest x-ray - 12/07/19 - COMPARISON: Chest x-ray 12/06/19 1317 FINDINGS: Lungs: Diffuse bilateral airspace opacities, improved in the left lung and slightly worsened in the right lung. Pleural space: Unremarkable. No pneumothorax. Heart: Mild cardiomegaly. Mediastinum: Unremarkable. Bones/joints: Mild degenerative changes of spine. Tubes, lines and devices: Endotracheal tube and NG tube are stable. IMPRESSION: Diffuse bilateral airspace opacities, improved in the left lung and slightly worsened in the right lung. Chest x-ray - 12/10/19 - Procedure: XRAY Chest 1v Indication: Shortness of breath Technique: One view of the chest Comparison: 12/07/2019 Findings: There is worsening airspace opacity in the bilateral mid and lower lungs. The left hemidiaphragm is obscured, could indicate some pleural fluid. Stable satisfactory positions of endotracheal and nasogastric tubes. Impression: Worsening infiltrates, likely pneumonia, bilaterally Microbiology Date/Time Source Procedure Growth Status 12/10/19 21:15 Blood Blood Culture - Preliminary NO GROWTH AFTER 24 HOURS Resulted 12/10/19 21:00 Blood Blood Culture - Preliminary NO GROWTH AFTER 24 HOURS Resulted 12/11/19 22:50 Stool Clostridium difficile Toxin Assay - Final Complete 12/11/19 20:33 Indwelling Cath Urine Culture - Preliminary NO GROWTH Resulted Laboratory Tests Test 12/12/19 05:09 12/12/19 11:10 White Blood Count 23.9 K/UL (4.8-10.8) *H Red Blood Count 3.56 M/UL (4.70-6.10) L Hemoglobin 10.8 G/DL (14.2-18.0) L Hematocrit 32.7 % (42.0-52.0) L Mean Corpuscular Volume 92 FL (80-99) Mean Corpuscular Hemoglobin 30.4 PG (27.0-31.0) Mean Corpuscular Hemoglobin Concent 33.1 G/DL (32.0-36.0) Red Cell Distribution Width 13.2 % (11.6-14.8) Platelet Count 140 K/UL (150-450) L Mean Platelet Volume 8.8 FL (6.5-10.1) Neutrophils (%) (Auto) % (45.0-75.0) Lymphocytes (%) (Auto) % (20.0-45.0) Monocytes (%) (Auto) % (1.0-10.0) Eosinophils (%) (Auto) % (0.0-3.0) Basophils (%) (Auto) % (0.0-2.0) Differential Total Cells Counted 100 Neutrophils % (Manual) 91 % (45-75) H Lymphocytes % (Manual) 3 % (20-45) L Monocytes % (Manual) 3 % (1-10) Eosinophils % (Manual) 0 % (0-3) Basophils % (Manual) 0 % (0-2) Metamyelocytes % 2 % (0-0) H Band Neutrophils 1 % (0-8) Nucleated Red Blood Cells 1 /100 WBC Platelet Estimate Decreased L Platelet Morphology Normal Hypochromasia 1+ Anisocytosis 1+ Sodium Level 141 MMOL/L (136-145) Potassium Level 3.4 MMOL/L (3.5-5.1) L Chloride Level 102 MMOL/L (98-107) Carbon Dioxide Level 31 MMOL/L (21-32) Anion Gap 8 mmol/L (5-15) Blood Urea Nitrogen 66 mg/dL (7-18) H Creatinine 6.6 MG/DL (0.55-1.30) H Estimat Glomerular Filtration Rate 8.7 mL/min (>60) Glucose Level 151 MG/DL (74-106) H Calcium Level 8.8 MG/DL (8.5-10.1) Total Bilirubin 1.6 MG/DL (0.2-1.0) H Direct Bilirubin 1.1 MG/DL (0.0-0.3) H Aspartate Amino Transf (AST/SGOT) 61 U/L (15-37) H Alanine Aminotransferase (ALT/SGPT) 144 U/L (12-78) H Alkaline Phosphatase 159 U/L (46-116) H Total Protein 5.9 G/DL (6.4-8.2) L Albumin 2.6 G/DL (3.4-5.0) L Globulin 3.3 g/dL Albumin/Globulin Ratio 0.8 (1.0-2.7) L Random Vancomycin Level 18.7 ug/mL Current Medications Medications (Trade) Dose Ordered Sig/Vicki Route PRN Reason Start Time Stop Time Status Last Admin Dose Admin Acetaminophen (Tylenol) 650 mg Q4H PRN NG Temp >100.5 12/06/19 14:15 01/05/20 14:14 12/10/19 04:34 Acetaminophen (Tylenol) 650 mg Q4H PRN RECTAL Mild Pain (Pain Scale 1-3) 12/04/19 11:45 01/03/20 11:44 12/06/19 19:17 Cefepime HCl 500 mg/Dextrose 50 ml @ 100 mls/hr Q24HRS IV 12/10/19 23:00 12/17/19 22:59 12/11/19 22:07 Chlorhexidine Gluconate (Arely-Hex 2%) 1 applic DAILY@2000 TOPIC 12/05/19 20:00 03/04/20 19:59 12/11/19 20:04 Dextrose (Dextrose 50%) 25 ml Q30M PRN IV Hypoglycemia 11/29/19 14:15 02/27/20 14:14 Dextrose (Dextrose 50%) 50 ml Q30M PRN IV Hypoglycemia 11/29/19 14:15 02/27/20 14:14 Fentanyl Citrate 2500 mcg/Sodium Chloride 250 ml @ 0 mls/hr Q24H IVPB 12/06/19 02:00 12/13/19 01:59 12/12/19 12:17 Hydralazine HCl (Apresoline) 10 mg Q4H PRN IV For High Blood Pressure 11/29/19 15:15 02/27/20 15:14 Loperamide HCl (Imodium) 2 mg Q6H PRN NG Diarrhea 12/12/19 12:45 01/11/20 12:44 Metronidazole 100 ml @ 100 mls/hr Q8HR IVPB 12/10/19 23:00 12/17/19 22:59 12/12/19 14:39 Midodrine (Pro-Amatine) 10 mg THREE TIMES A DAY ORAL 12/12/19 13:00 03/11/20 12:59 12/12/19 12:16 Norepinephrine Bitartrate 16 mg/ Dextrose 566 ml @ 0 mls/hr Q24H IV 12/06/19 09:00 01/05/20 08:59 12/12/19 08:25 Ondansetron HCl (Zofran) 4 mg Q6H PRN IVP Nausea & Vomiting 11/29/19 14:15 12/29/19 14:14 Pantoprazole (Protonix) 40 mg DAILY IVP 11/30/19 12:15 12/30/19 12:14 12/12/19 08:24 Potassium Chloride (K-Dur) 40 meq TWICE A DAY ORAL 12/11/19 09:30 03/10/20 09:29 12/12/19 08:24 Vancomycin HCl (Vanco rx to dose) 1 ea DAILY PRN MISC Per rx protocol 12/08/19 19:30 01/07/20 19:29 Vancomycin HCl 500 mg/Sodium Chloride 110 ml @ 110 mls/hr POSTHD IVPB 12/12/19 18:00 12/12/19 22:00 Vasopressin 100 units/Sodium Chloride 100 ml @ 0 mls/hr Q24H IV 12/06/19 09:00 01/05/20 08:59 12/06/19 09:03 Ilsa Rodriguez MD Dec 12, 2019 20:46
[2019-12-12] MEDS: Dyna-Hex 2% Top Sol 2oz TOPIC SCH (21:12)
--- NOTE | 2019-12-12 22:00 | NUR ---
NURSE NOTES: Patient in bed with no acute distress. Vitals stable to baseline. ETT 8; 24cm at lipline; ac 20; tv 500; peep 10; fio2 100%. Pt tolerating vent settings; spo2 98% at 11 breaths per min. OGT noted; flushed and patent; Nepro running at goal of 35cc/hr; no residual noted; flushed 60 ml. . Aspiration precautions observed; HOB raised >30 degrees. Right femoral Bismark noted; flushed and patent; levophed infusing at 12 mcg/min and Fentanyl at 300mcg/hour. Left wrist 20g IV noted; initiated IV ABX as prescribed. Oje and rectal tube noted; draining well to gravity. Rectal thermometer probe in place; 98.1F. Contact precautions observed. All safety measures met; side rails raised x3; bed locked at lowest position; bed alarm engaged on zone 2; call light within reach.
[2019-12-13] VITALS (57 sets, daily range): BP systolic 96–147; BP diastolic 47–68
--- NOTE | 2019-12-13 | NUR ---
NURSE NOTES: Upon visual inspection, patient resting in bed with no acute signs of distress. Vitals remains stable to baseline. Will continue to monitor.
--- NOTE | 2019-12-13 02:00 | NUR ---
NURSE NOTES: Upon visual inspection, patient resting in bed with no acute signs of distress. Vitals remains stable to baseline. Will continue to monitor.
[2019-12-13] MEDS: Norepinephrine Bitartrate 16 MG in D5W 500ml 550 ML IV SCH (04:00)
[2019-12-13] MEDS: fentaNYL Citrate 2,500 MCG in NS 200 ML IV SCH ×3 (04:00→21:20)
--- NOTE | 2019-12-13 04:00 | NUR ---
NURSE NOTES: AM labs drawn; sent down to lab. Bismark dressing remains intact; no saturation of blood noted; flushed and patent, Fentanyl running at 300mcg/hr and levophed at 12 mcg/min. Provided patient with complete bedbath; changed linens and gown. Sacral redness noted. Applied dressing to sacral and bilateral heels. Placed patient prone per MD order; 2RT and 2 RN at bedside. Patient tolerated well. Patient and vitals remains stable to baseline. Repositioned for comfort; right arm raised; feet elevated with pillow. Will continue to monitor.
[2019-12-13 05:36] LABS: HEMATOCRIT 32.9 % (42.0-52.0); HEMOGLOBIN 10.7 G/DL (14.2-18.0); MEAN CORPUSCULAR VOLUME 92 FL (80-99); PLATELET COUNT 146 K/UL (150-450); RED BLOOD COUNT 3.56 M/UL (4.70-6.10); RED CELL DISTRIBUTION WIDTH 13.5 % (11.6-14.8)
[2019-12-13 05:53] LABS: WHITE BLOOD COUNT 23.9 K/UL (4.8-10.8)
--- NOTE | 2019-12-13 06:00 | NUR ---
NURSE NOTES: Patient sleeping without acute distress. Vitals remain stable to baseline.Emptied barnes and rectal tube; documented output. All safety measures met.
[2019-12-13 06:21] LABS: ALANINE AMINOTRANSFERASE 127 U/L (12-78); ALBUMIN 2.5 G/DL (3.4-5.0); ALBUMIN/GLOBULIN RATIO 0.7 (1.0-2.7); ALKALINE PHOSPHATASE 186 U/L (46-116); ANION GAP 8 mmol/L (5-15); ASPARTATE AMINO TRANSFERASE 54 U/L (15-37); BILIRUBIN,TOTAL 1.5 MG/DL (0.2-1.0); BLOOD UREA NITROGEN 46 mg/dL (7-18); CALCIUM 8.6 MG/DL (8.5-10.1); CARBON DIOXIDE 34 MMOL/L (21-32); CHLORIDE 101 MMOL/L (98-107); POTASSIUM 3.8 MMOL/L (3.5-5.1); SODIUM 142 MMOL/L (136-145)
--- NOTE | 2019-12-13 07:11 | Hematology/Onc Progress Note ---
Assessment/Plan Assessment/Plan # Leukocytosis/elevated white blood cell count, unspecified likely related to underlying stress reaction and addition of infection, covid19++ on vent, intubated --> have reviewed peripheral smear and bandemia/neutrophilia noted --> continue antibiotics if they have been started by ID team --> on broad spectrum abx cefepime/flag/vanc --> monitor for resolution --> smear is noted, with metamyelocytes --> wbc trend 18-->24 # Anemia of chronic disease due to underlying chronic medical issues, multifactorial v Gi bleed --> Anemia workup has been ordered, rule out gi bleed --> No evidence of hemolysis is noted, peripheral smear has been reviewed. --> Hgb goal >7. Transfuse prn. --> Epogen or iron at this time is not particularly indicated --> Medications have been reviewed --> low threshold for gi evaluation in case has occult + ==> hgb trend 11-->10.7 # Thrombocytopenia also likely covid relaetd --> supportive care -> as per id # Acute Hypoxic Respiratory Failure s/p intubation --> now on vent --> as per Dr. Cortes, weaning # COVID19 positive --> abx # Pneumomediastinum --> monitor for expansion # Subcutaneous emphysema --> too high risk for bedside thoracostomy # ALBARO on ckd --> hd as needed # 12/04: femoral HD cath placed --> hd prn ANDREW Rn and appreciate consultation Subjective HEENT: Denies: no symptoms, eye pain, blurred vision, tearing, double vision, ear pain, ear discharge, nose pain, nose congestion, throat pain, throat swelling, mouth pain, mouth swelling, other Allergies: Coded Allergies: No Known Allergies (Unverified , 11/29/19) All Systems: reviewed and negative except above Subjective 12/12 remains on vent, ogtube, barnes and rectal tube emptied, right fem jia line Objective Objective Current Medications Medications (Trade) Dose Ordered Sig/Vicki Route PRN Reason Start Time Stop Time Status Last Admin Dose Admin Acetaminophen (Tylenol) 650 mg Q4H PRN NG Temp >100.5 12/06/19 14:15 01/05/20 14:14 12/10/19 04:34 Acetaminophen (Tylenol) 650 mg Q4H PRN RECTAL Mild Pain (Pain Scale 1-3) 12/04/19 11:45 01/03/20 11:44 12/06/19 19:17 Cefepime HCl 500 mg/Dextrose 50 ml @ 100 mls/hr Q24HRS IV 12/10/19 23:00 12/17/19 22:59 12/12/19 21:13 Chlorhexidine Gluconate (Arely-Hex 2%) 1 applic DAILY@2000 TOPIC 12/05/19 20:00 03/04/20 19:59 12/12/19 21:12 Dextrose (Dextrose 50%) 25 ml Q30M PRN IV Hypoglycemia 11/29/19 14:15 02/27/20 14:14 Dextrose (Dextrose 50%) 50 ml Q30M PRN IV Hypoglycemia 11/29/19 14:15 02/27/20 14:14 Fentanyl Citrate 2500 mcg/Sodium Chloride 250 ml @ 0 mls/hr Q24H IV 12/13/19 00:00 12/20/19 00:00 12/13/19 04:00 Hydralazine HCl (Apresoline) 10 mg Q4H PRN IV For High Blood Pressure 11/29/19 15:15 02/27/20 15:14 Loperamide HCl (Imodium) 2 mg Q6H PRN NG Diarrhea 12/12/19 12:45 01/11/20 12:44 Metronidazole 100 ml @ 100 mls/hr Q8HR IVPB 12/10/19 23:00 12/17/19 22:59 12/13/19 06:02 Midodrine (Pro-Amatine) 10 mg THREE TIMES A DAY ORAL 12/12/19 13:00 03/11/20 12:59 12/12/19 12:16 Norepinephrine Bitartrate 16 mg/ Dextrose 566 ml @ 0 mls/hr Q24H IV 12/06/19 09:00 01/05/20 08:59 12/13/19 04:00 Ondansetron HCl (Zofran) 4 mg Q6H PRN IVP Nausea & Vomiting 11/29/19 14:15 12/29/19 14:14 Pantoprazole (Protonix) 40 mg DAILY IVP 11/30/19 12:15 12/30/19 12:14 12/12/19 08:24 Potassium Chloride (K-Dur) 40 meq TWICE A DAY ORAL 12/11/19 09:30 03/10/20 09:29 12/12/19 08:24 Vancomycin HCl (Vanco rx to dose) 1 ea DAILY PRN MISC Per rx protocol 12/08/19 19:30 01/07/20 19:29 Vasopressin 100 units/Sodium Chloride 100 ml @ 0 mls/hr Q24H IV 12/06/19 09:00 01/05/20 08:59 12/06/19 09:03 Last 24 Hour Vital Signs Date Time Temp Pulse Resp B/P (MAP) Pulse Ox O2 Delivery O2 Flow Rate FiO2 12/13/19 06:30 98 24 126/63 (84) 99 12/13/19 06:00 24 Mechanical Ventilator 100 12/13/19 06:00 117/59 12/13/19 06:00 97 24 117/59 (78) 99 12/13/19 05:30 96 24 124/64 (84) 99 12/13/19 05:00 25 Mechanical Ventilator 100 12/13/19 05:00 117/59 12/13/19 05:00 98 25 122/62 (82) 99 12/13/19 04:45 101 26 100 12/13/19 04:30 99 23 125/59 (81) 98 12/13/19 04:00 98.1 100 24 124/62 (82) 98 12/13/19 04:00 101 12/13/19 04:00 24 Mechanical Ventilator 40 12/13/19 04:00 124/63 12/13/19 04:00 24 Mechanical Ventilator 100 12/13/19 04:00 100 12/13/19 04:00 Mechanical Ventilator 12/13/19 03:30 101 20 118/56 (76) 96 12/13/19 03:00 101 23 142/67 (92) 99 12/13/19 03:00 142/67 12/13/19 03:00 23 Mechanical Ventilator 100 12/13/19 02:30 101 22 124/64 (84) 99 12/13/19 02:30 99 26 100 12/13/19 02:00 125/62 12/13/19 02:00 24 Mechanical Ventilator 100 12/13/19 02:00 98 24 125/62 (83) 99 12/13/19 01:30 96 24 119/59 (79) 99 12/13/19 01:00 98 22 118/62 (80) 99 12/13/19 01:00 118/62 12/13/19 01:00 22 Mechanical Ventilator 100 12/13/19 00:45 98 24 118/62 (80) 99 12/13/19 00:30 101 24 118/63 (81) 99 12/13/19 00:00 103 12/13/19 00:00 114/60 12/13/19 00:00 27 Mechanical Ventilator 100 12/13/19 00:00 99.1 105 27 114/60 (78) 99 12/13/19 00:00 Mechanical Ventilator 12/12/19 23:30 102 23 116/63 (80) 99 12/12/19 23:00 118/61 12/12/19 23:00 26 Mechanical Ventilator 100 12/12/19 23:00 100 26 118/61 (80) 99 12/12/19 22:32 104 28 100 12/12/19 22:30 100 26 116/57 (76) 99 12/12/19 22:15 21 Mechanical Ventilator 100 12/12/19 22:00 107/58 12/12/19 22:00 25 Mechanical Ventilator 100 12/12/19 22:00 105 23 107/58 (74) 99 12/12/19 21:30 109 26 109/58 (75) 99 12/12/19 21:00 106 26 110/59 (76) 100 12/12/19 21:00 110/59 12/12/19 21:00 26 Mechanical Ventilator 100 12/12/19 20:30 104 0 113/64 (80) 100 12/12/19 20:00 98.1 104 5 98/62 (74) 99 12/12/19 20:00 Mechanical Ventilator 12/12/19 20:00 103 12/12/19 20:00 98/62 12/12/19 20:00 14 Mechanical Ventilator 100 12/12/19 20:00 100 12/12/19 19:24 105 30 100 12/12/19 19:00 112 6 96/55 (69) 97 12/12/19 19:00 96/55 12/12/19 19:00 13 Mechanical Ventilator 100 12/12/19 18:30 108 11 102/59 (73) 97 12/12/19 18:00 107 8 110/66 (81) 96 12/12/19 18:00 Mechanical Ventilator 12/12/19 17:00 Mechanical Ventilator 12/12/19 17:00 107 17 86/72 (77) 96 12/12/19 16:24 117 17 105/53 (70) 91 12/12/19 16:04 100 12/12/19 16:00 121 24 103/54 (70) 80 12/12/19 16:00 Mechanical Ventilator 12/12/19 16:00 100 12/12/19 16:00 113 12/12/19 16:00 Mechanical Ventilator 12/12/19 15:00 Mechanical Ventilator 12/12/19 15:00 97.3 116 20 112/55 (74) 85 12/12/19 14:45 116 28 100 12/12/19 14:00 111 19 120/57 (78) 91 12/12/19 14:00 Mechanical Ventilator 12/12/19 13:00 111 20 132/59 (83) 91 12/12/19 12:17 Mechanical Ventilator 12/12/19 12:00 110 12/12/19 12:00 Mechanical Ventilator 12/12/19 12:00 100 12/12/19 12:00 114 24 129/63 (85) 94 12/12/19 11:06 109 22 100 12/12/19 11:00 107 24 129/61 (83) 95 12/12/19 11:00 Mechanical Ventilator 12/12/19 10:00 Mechanical Ventilator 12/12/19 10:00 106 24 131/64 (86) 97 12/12/19 09:00 Mechanical Ventilator 12/12/19 09:00 104 25 131/65 (87) 98 12/12/19 08:25 129/68 12/12/19 08:00 102 12/12/19 08:00 100 12/12/19 08:00 Mechanical Ventilator 12/12/19 08:00 102 22 134/65 (88) 98 12/12/19 07:03 106 31 100 12/12/19 07:00 107 22 132/60 (84) 93 12/12/19 07:00 132/60 12/12/19 07:00 23 Mechanical Ventilator 100 12/12/19 06:30 108 21 132/63 (86) 94 12/12/19 06:00 110 18 132/59 (83) 92 12/12/19 06:00 132/59 12/12/19 06:00 18 Mechanical Ventilator 100 12/12/19 05:30 108 19 137/64 (88) 97 12/12/19 05:00 129/63 12/12/19 05:00 22 Mechanical Ventilator 100 12/12/19 05:00 106 22 129/63 (85) 99 12/12/19 04:34 106 24 100 12/12/19 04:30 104 25 135/67 (89) 99 12/12/19 04:14 104 12/12/19 04:00 98.6 97 24 145/119 (128) 99 12/12/19 04:00 Mechanical Ventilator 12/12/19 04:00 100 12/12/19 04:00 145/119 12/12/19 04:00 24 Mechanical Ventilator 100 12/12/19 03:53 23 Mechanical Ventilator 100 12/12/19 03:30 96 22 126/64 (84) 100 12/12/19 03:00 119/62 12/12/19 03:00 23 Mechanical Ventilator 100 12/12/19 03:00 98 23 119/62 (81) 100 12/12/19 02:42 103 23 100 12/12/19 02:30 96 22 122/64 (83) 100 12/12/19 02:00 94 23 120/63 (82) 100 12/12/19 02:00 120/64 12/12/19 02:00 23 Mechanical Ventilator 100 12/12/19 01:30 100 24 116/60 (78) 100 12/12/19 01:00 119/60 12/12/19 01:00 21 Mechanical Ventilator 100 12/12/19 01:00 101 21 119/60 (79) 100 12/12/19 00:57 104 23 100 12/12/19 00:30 98 22 120/60 (80) 100 12/12/19 00:00 97.8 99 22 116/62 (80) 100 12/12/19 00:00 116/62 12/12/19 00:00 22 Mechanical Ventilator 100 12/12/19 00:00 100 12/12/19 00:00 Mechanical Ventilator 12/11/19 23:30 100 24 117/60 (79) 100 12/11/19 23:18 106 25 100 4/29/20 23:01 98 12/11/19 23:00 95 26 124/64 (84) 100 12/11/19 23:00 124/64 12/11/19 23:00 26 Mechanical Ventilator 100 12/11/19 22:30 98 22 120/56 (77) 98 12/11/19 22:00 123/59 12/11/19 22:00 21 Mechanical Ventilator 100 12/11/19 22:00 97 21 123/59 (80) 100 12/11/19 21:30 101 22 121/58 (79) 100 12/11/19 21:00 114/60 12/11/19 21:00 23 Mechanical Ventilator 100 12/11/19 21:00 105 23 114/60 (78) 100 12/11/19 20:46 108 26 100 12/11/19 20:30 108 22 127/59 (81) 99 12/11/19 20:05 28 Mechanical Ventilator 100 12/11/19 20:00 Mechanical Ventilator 12/11/19 20:00 98/56 12/11/19 20:00 23 Mechanical Ventilator 100 12/11/19 20:00 100 12/11/19 20:00 98.5 104 20 98/56 (70) 99 12/11/19 19:30 103 23 129/69 (89) 99 12/11/19 19:22 104 12/11/19 19:00 105 23 143/62 (89) 96 12/11/19 18:45 104 24 100 12/11/19 18:30 106 18 118/56 (76) 98 12/11/19 18:00 106 22 106/53 (70) 90 12/11/19 17:30 107 23 96/52 (67) 92 12/11/19 17:00 110 22 101/51 (68) 91 12/11/19 16:00 Mechanical Ventilator 12/11/19 16:00 100 12/11/19 16:00 98.1 108 23 91/47 (62) 93 12/11/19 16:00 97 12/11/19 15:30 103 26 103/58 (73) 92 12/11/19 15:07 108 25 100 12/11/19 15:00 108 22 111/58 (75) 96 12/11/19 14:30 98 21 108/61 (77) 98 12/11/19 14:00 96 22 110/62 (78) 100 12/11/19 13:30 94 22 108/62 (77) 100 12/11/19 13:00 93 22 114/64 (81) 100 12/11/19 12:30 96 21 109/60 (76) 98 12/11/19 12:00 99 12/11/19 12:00 Mechanical Ventilator 12/11/19 12:00 98.0 96 22 113/62 (79) 99 12/11/19 12:00 100 12/11/19 11:03 103 28 100 12/11/19 11:00 114/55 12/11/19 11:00 103 21 114/55 (74) 97 12/11/19 10:35 23 Mechanical Ventilator 100 12/11/19 10:30 106 24 114/57 (76) 96 12/11/19 10:00 110 23 113/60 (77) 98 12/11/19 09:56 118/61 12/11/19 09:30 110 25 114/58 (76) 97 12/11/19 09:00 109 22 108/58 (75) 97 12/11/19 08:30 111 22 108/56 (73) 94 12/11/19 08:00 100 12/11/19 08:00 98.8 109 22 108/60 (76) 94 12/11/19 08:00 110 12/11/19 08:00 Mechanical Ventilator 12/11/19 07:30 109 23 122/59 (80) 95 Intake and Output 12/12/19 12/13/19 19:00 07:00 Intake Total 807.98 ml 1274.70 ml Output Total 130 ml 3150 ml Balance 677.98 ml -1875.30 ml Free Water 120 ml IV Total 562.98 ml 734.70 ml Tube Feeding 245 ml 420 ml Output Urine Total 0 ml 0 ml Stool Total 130 ml 150 ml Hemodialysis UF 3000 ml Labs Test 12/11/19 03:50 12/11/19 08:17 12/12/19 05:09 12/12/19 11:10 White Blood Count 24.2 K/UL (4.8-10.8) 23.9 K/UL (4.8-10.8) Red Blood Count 3.61 M/UL (4.70-6.10) 3.56 M/UL (4.70-6.10) Hemoglobin 11.0 G/DL (14.2-18.0) 10.8 G/DL (14.2-18.0) Hematocrit 32.9 % (42.0-52.0) 32.7 % (42.0-52.0) Mean Corpuscular Volume 91 FL (80-99) 92 FL (80-99) Mean Corpuscular Hemoglobin 30.5 PG (27.0-31.0) 30.4 PG (27.0-31.0) Mean Corpuscular Hemoglobin Concent 33.4 G/DL (32.0-36.0) 33.1 G/DL (32.0-36.0) Red Cell Distribution Width 13.0 % (11.6-14.8) 13.2 % (11.6-14.8) Platelet Count 129 K/UL (150-450) 140 K/UL (150-450) Mean Platelet Volume 7.9 FL (6.5-10.1) 8.8 FL (6.5-10.1) Neutrophils (%) (Auto) % (45.0-75.0) % (45.0-75.0) Lymphocytes (%) (Auto) % (20.0-45.0) % (20.0-45.0) Monocytes (%) (Auto) % (1.0-10.0) % (1.0-10.0) Eosinophils (%) (Auto) % (0.0-3.0) % (0.0-3.0) Basophils (%) (Auto) % (0.0-2.0) % (0.0-2.0) Differential Total Cells Counted 100 100 Neutrophils % (Manual) 90 % (45-75) 91 % (45-75) Lymphocytes % (Manual) 4 % (20-45) 3 % (20-45) Monocytes % (Manual) 5 % (1-10) 3 % (1-10) Eosinophils % (Manual) 1 % (0-3) 0 % (0-3) Basophils % (Manual) 0 % (0-2) 0 % (0-2) Band Neutrophils 0 % (0-8) 1 % (0-8) Nucleated Red Blood Cells 1 /100 WBC 1 /100 WBC Platelet Estimate Decreased Decreased Platelet Morphology Normal Normal Hypochromasia 1+ 1+ Anisocytosis 1+ 1+ Prothrombin Time 11.7 SEC (9.30-11.50) Prothromb Time International Ratio 1.1 (0.9-1.1) Sodium Level 145 MMOL/L (136-145) 141 MMOL/L (136-145) Potassium Level 2.8 MMOL/L (3.5-5.1) 3.4 MMOL/L (3.5-5.1) Chloride Level 102 MMOL/L (98-107) 102 MMOL/L (98-107) Carbon Dioxide Level 33 MMOL/L (21-32) 31 MMOL/L (21-32) Anion Gap 10 mmol/L (5-15) 8 mmol/L (5-15) Blood Urea Nitrogen 64 mg/dL (7-18) 66 mg/dL (7-18) Creatinine 6.9 MG/DL (0.55-1.30) 6.6 MG/DL (0.55-1.30) Estimat Glomerular Filtration Rate 8.3 mL/min (>60) 8.7 mL/min (>60) Glucose Level 115 MG/DL (74-106) 151 MG/DL (74-106) Calcium Level 7.9 MG/DL (8.5-10.1) 8.8 MG/DL (8.5-10.1) Magnesium Level 2.4 MG/DL (1.8-2.4) Total Bilirubin 2.3 MG/DL (0.2-1.0) 1.6 MG/DL (0.2-1.0) Direct Bilirubin 1.8 MG/DL (0.0-0.3) 1.1 MG/DL (0.0-0.3) Aspartate Amino Transf (AST/SGOT) 117 U/L (15-37) 61 U/L (15-37) Alanine Aminotransferase (ALT/SGPT) 248 U/L (12-78) 144 U/L (12-78) Alkaline Phosphatase 138 U/L (46-116) 159 U/L (46-116) Total Protein 5.6 G/DL (6.4-8.2) 5.9 G/DL (6.4-8.2) Albumin 2.1 G/DL (3.4-5.0) 2.6 G/DL (3.4-5.0) Globulin 3.5 g/dL 3.3 g/dL Albumin/Globulin Ratio 0.6 (1.0-2.7) 0.8 (1.0-2.7) Random Vancomycin Level 18.6 ug/mL 18.7 ug/mL Arterial Blood pH 7.204 (7.350-7.450) Arterial Blood Partial Pressure CO2 82.6 mmHg (35.0-45.0) Arterial Blood Partial Pressure O2 55.2 mmHg (75.0-100.0) Arterial Blood HCO3 31.9 mmol/L (22.0-26.0) Arterial Blood Oxygen Saturation 84.8 % (95-100) Arterial Blood Base Excess 2.0 (-2-2) Melecio Test Positive Metamyelocytes % 2 % (0-0) Test 12/13/19 03:26 White Blood Count 23.9 K/UL (4.8-10.8) Red Blood Count 3.56 M/UL (4.70-6.10) Hemoglobin 10.7 G/DL (14.2-18.0) Hematocrit 32.9 % (42.0-52.0) Mean Corpuscular Volume 92 FL (80-99) Mean Corpuscular Hemoglobin 30.0 PG (27.0-31.0) Mean Corpuscular Hemoglobin Concent 32.5 G/DL (32.0-36.0) Red Cell Distribution Width 13.5 % (11.6-14.8) Platelet Count 146 K/UL (150-450) Mean Platelet Volume 9.6 FL (6.5-10.1) Neutrophils (%) (Auto) % (45.0-75.0) Lymphocytes (%) (Auto) % (20.0-45.0) Monocytes (%) (Auto) % (1.0-10.0) Eosinophils (%) (Auto) % (0.0-3.0) Basophils (%) (Auto) % (0.0-2.0) Sodium Level 142 MMOL/L (136-145) Potassium Level 3.8 MMOL/L (3.5-5.1) Chloride Level 101 MMOL/L (98-107) Carbon Dioxide Level 34 MMOL/L (21-32) Anion Gap 8 mmol/L (5-15) Blood Urea Nitrogen 46 mg/dL (7-18) Creatinine 5.0 MG/DL (0.55-1.30) Estimat Glomerular Filtration Rate 12.0 mL/min (>60) Glucose Level 131 MG/DL (74-106) Calcium Level 8.6 MG/DL (8.5-10.1) Total Bilirubin 1.5 MG/DL (0.2-1.0) Direct Bilirubin 1.0 MG/DL (0.0-0.3) Aspartate Amino Transf (AST/SGOT) 54 U/L (15-37) Alanine Aminotransferase (ALT/SGPT) 127 U/L (12-78) Alkaline Phosphatase 186 U/L (46-116) Total Protein 5.9 G/DL (6.4-8.2) Albumin 2.5 G/DL (3.4-5.0) Globulin 3.4 g/dL Albumin/Globulin Ratio 0.7 (1.0-2.7) Height (Feet): 5 Height (Inches): 6.00 Weight (Pounds): 168 Objective Sp02 EP Interpretation: reviewed, General Appearance: prone position on vent Heent: nc, at+ ng Respiratory: normal breath sounds, no retraction, vent++ Cardiovascular: no edema, tachycardia Gastrointestinal: normal inspection Neurologic unresponsive on vent Psychiatric: judgement/insight normal, memory normal, mood/affect normal, no suicidal/homicidal ideation Ext: with hd fem jia in place : + barnes and rectal tube Mj Zhu MD December 13, 2019 07:11
--- NOTE | 2019-12-13 07:13 | NUR ---
HAND-OFF: Report given to DARYA Shields. Endorsed reposition to supine from prone at 1600 and 4/30 HD 3L output
--- NOTE | 2019-12-13 07:33 | NUR ---
NURSE NOTES: late entry: RECEIVED REPORT FROM TREVOR COSME R.N. PT IN BED, PRONE POSITION. DRAINAGE PINK TINGED, THICK. WILL TURN SUPINE AT 1600. SEDATED ON FENTANYL DRIP AT 300MCG/MIN. ST ON MONITOR. VSS. RECEIVED LEVOPHED AT 12MCG/MIN, DECREASED TO 10MCG/MIN. INTUBATED 8, 24CM AT LIP. VENT SETTINGS AC 20, VT 500, FI02 100%, PEEP 10. TUBE FEEDING TO CONTINUE WHILE PT PRONE. RUNNING NEPRO AT 35ML/HR. NGT LT NARES. RECTAL TUBE, DRAINING GREEN STOOL. PT ANURIC, MIKE INTACT. SKIN- SEE ASSESSMENT. LT WRIST 20G, YESI W/ PIGTAIL RT FEMORAL TLC. A FEBRILE. BILATERAL RADIAL AND PEDAL PULSES WEAK. AIRBORNE ISOLATION PRECAUTIONS IN PLACE. BED ALARM ON, IN LOW POSITION. WILL CONTINUE TO MONITOR TP.
[2019-12-13] MEDS: Pantoprazole Inj IVP SCH (08:45)
[2019-12-13] MEDS: Midodrine 10mg tab ORAL SCH ×3 (08:45→18:29)
[2019-12-13] MEDS: Vasopressin 100 UNITS in NS 95 ML IV SCH (08:46)
--- NOTE | 2019-12-13 10:25 | Diagnostic Imaging Report ---
Indication: Shortness of breath Technique: One view of the chest Comparison: 12/10/2019 Findings: Overlying backboard limits evaluation. There is suggestion of interim marked improvement of previously demonstrated bilateral infiltrates, although considerable disease persists. The borders of the right hemidiaphragm and the inferior and right lateral cardiac shadow are unusually well demarcated. Stable satisfactory position of endotracheal tube. Borderline high position of orogastric tube, proximal sidehole at the level gastroesophageal junction Impression: Limited exam, as described Unusually well demarcated right inferolateral heart border and medial right hemidiaphragm without definite extraluminal air collection, possibility of pneumomediastinum should be considered. Dr. Cortes notified of this finding at in the time of interpretation Improved but persistent and still extensive bilateral infiltrates Borderline high position of orogastric tube
--- NOTE | 2019-12-13 10:32 | General Progress Note ---
Assessment/Plan Problem List: (1) Elevated LFTs ICD Codes: R79.89 - Other specified abnormal findings of blood chemistry SNOMED: 813308202, 083268291 (2) HTN (hypertension) ICD Codes: I10 - Essential (primary) hypertension SNOMED: 32783931 (3) Suspected COVID-19 virus infection ICD Codes: R68.89 - Other general symptoms and signs SNOMED: 430765026 (4) Pneumonia ICD Codes: J18.9 - Pneumonia, unspecified organism SNOMED: 644854996 (5) Respiratory distress ICD Codes: R06.03 - Acute respiratory distress SNOMED: 671320011 (6) Pneumomediastinum ICD Codes: J98.2 - Interstitial emphysema SNOMED: 46732368 (7) COVID-19 ICD Codes: U07.1 - COVID-19 SNOMED: 830876273 (8) Hypotension ICD Codes: I95.9 - Hypotension, unspecified SNOMED: 29514922 Status: unchanged Assessment/Plan: NGTF rectal tube in place elevated LFTS most likely due to shock liver>>> improving repeat labs in am hepatitis panel>>>Neg abd us when off of isolation fu nephrology recent labs and notes reviewed D/W the nurse Subjective ROS Limited/Unobtainable: No Allergies: Coded Allergies: No Known Allergies (Unverified , 11/29/19) Objective Last 24 Hour Vital Signs Date Time Temp Pulse Resp B/P (MAP) Pulse Ox O2 Delivery O2 Flow Rate FiO2 12/13/19 09:14 100 22 100 12/13/19 07:30 98.3 105 19 125/63 (83) 99 12/13/19 07:00 101 23 100 12/13/19 07:00 24 Mechanical Ventilator 100 12/13/19 07:00 116/58 12/13/19 07:00 100 24 116/58 (77) 99 12/13/19 06:30 98 24 126/63 (84) 99 12/13/19 06:00 24 Mechanical Ventilator 100 12/13/19 06:00 117/59 12/13/19 06:00 97 24 117/59 (78) 99 12/13/19 05:30 96 24 124/64 (84) 99 12/13/19 05:00 25 Mechanical Ventilator 100 12/13/19 05:00 117/59 12/13/19 05:00 98 25 122/62 (82) 99 12/13/19 04:45 101 26 100 12/13/19 04:30 99 23 125/59 (81) 98 12/13/19 04:00 98.1 100 24 124/62 (82) 98 12/13/19 04:00 101 12/13/19 04:00 24 Mechanical Ventilator 40 12/13/19 04:00 124/63 12/13/19 04:00 24 Mechanical Ventilator 100 12/13/19 04:00 100 12/13/19 04:00 Mechanical Ventilator 12/13/19 03:30 101 20 118/56 (76) 96 12/13/19 03:00 101 23 142/67 (92) 99 12/13/19 03:00 142/67 12/13/19 03:00 23 Mechanical Ventilator 100 12/13/19 02:30 101 22 124/64 (84) 99 12/13/19 02:30 99 26 100 12/13/19 02:00 125/62 12/13/19 02:00 24 Mechanical Ventilator 100 12/13/19 02:00 98 24 125/62 (83) 99 12/13/19 01:30 96 24 119/59 (79) 99 12/13/19 01:00 98 22 118/62 (80) 99 12/13/19 01:00 118/62 12/13/19 01:00 22 Mechanical Ventilator 100 12/13/19 00:45 98 24 118/62 (80) 99 12/13/19 00:30 101 24 118/63 (81) 99 12/13/19 00:00 103 12/13/19 00:00 114/60 12/13/19 00:00 27 Mechanical Ventilator 100 12/13/19 00:00 99.1 105 27 114/60 (78) 99 12/13/19 00:00 Mechanical Ventilator 12/12/19 23:30 102 23 116/63 (80) 99 12/12/19 23:00 118/61 12/12/19 23:00 26 Mechanical Ventilator 100 12/12/19 23:00 100 26 118/61 (80) 99 12/12/19 22:32 104 28 100 12/12/19 22:30 100 26 116/57 (76) 99 12/12/19 22:15 21 Mechanical Ventilator 100 12/12/19 22:00 107/58 12/12/19 22:00 25 Mechanical Ventilator 100 12/12/19 22:00 105 23 107/58 (74) 99 12/12/19 21:30 109 26 109/58 (75) 99 12/12/19 21:00 106 26 110/59 (76) 100 12/12/19 21:00 110/59 12/12/19 21:00 26 Mechanical Ventilator 100 12/12/19 20:30 104 0 113/64 (80) 100 12/12/19 20:00 98.1 104 5 98/62 (74) 99 12/12/19 20:00 Mechanical Ventilator 12/12/19 20:00 103 12/12/19 20:00 98/62 12/12/19 20:00 14 Mechanical Ventilator 100 12/12/19 20:00 100 12/12/19 19:24 105 30 100 12/12/19 19:00 112 6 96/55 (69) 97 12/12/19 19:00 96/55 12/12/19 19:00 13 Mechanical Ventilator 100 12/12/19 18:30 108 11 102/59 (73) 97 12/12/19 18:00 107 8 110/66 (81) 96 12/12/19 18:00 Mechanical Ventilator 12/12/19 17:00 Mechanical Ventilator 12/12/19 17:00 107 17 86/72 (77) 96 12/12/19 16:24 117 17 105/53 (70) 91 12/12/19 16:04 100 12/12/19 16:00 121 24 103/54 (70) 80 12/12/19 16:00 Mechanical Ventilator 12/12/19 16:00 100 12/12/19 16:00 113 12/12/19 16:00 Mechanical Ventilator 12/12/19 15:00 Mechanical Ventilator 12/12/19 15:00 97.3 116 20 112/55 (74) 85 12/12/19 14:45 116 28 100 12/12/19 14:00 111 19 120/57 (78) 91 12/12/19 14:00 Mechanical Ventilator 12/12/19 13:00 111 20 132/59 (83) 91 12/12/19 12:17 Mechanical Ventilator 12/12/19 12:00 110 4/30/20 12:00 Mechanical Ventilator 12/12/19 12:00 100 12/12/19 12:00 114 24 129/63 (85) 94 12/12/19 11:06 109 22 100 12/12/19 11:00 107 24 129/61 (83) 95 12/12/19 11:00 Mechanical Ventilator Intake and Output 12/12/19 12/13/19 19:00 07:00 Intake Total 807.98 ml 1426.17 ml Output Total 130 ml 3150 ml Balance 677.98 ml -1723.83 ml Free Water 120 ml IV Total 562.98 ml 886.17 ml Tube Feeding 245 ml 420 ml Output Urine Total 0 ml 0 ml Stool Total 130 ml 150 ml Hemodialysis UF 3000 ml Laboratory Tests 12/12/19 11:10: Random Vancomycin Level 18.7 12/13/19 03:26: White Blood Count 23.9*H, Red Blood Count 3.56L, Hemoglobin 10.7L, Hematocrit 32.9L, Mean Corpuscular Volume 92, Mean Corpuscular Hemoglobin 30.0, Mean Corpuscular Hemoglobin Concent 32.5, Red Cell Distribution Width 13.5, Platelet Count 146L, Mean Platelet Volume 9.6, Neutrophils (%) (Auto) , Lymphocytes (%) ( Auto) , Monocytes (%) (Auto) , Eosinophils (%) (Auto) , Basophils (%) (Auto) , Differential Total Cells Counted 100, Neutrophils % (Manual) 89H, Lymphocytes % (Manual) 5L, Monocytes % (Manual) 5, Eosinophils % (Manual) 0, Basophils % ( Manual) 0, Metamyelocytes % 1H, Band Neutrophils 0, Platelet Estimate DecreasedL , Platelet Morphology Normal, Sodium Level 142, Potassium Level 3.8, Chloride Level 101, Carbon Dioxide Level 34H, Anion Gap 8, Blood Urea Nitrogen 46H, Creatinine 5.0H, Estimat Glomerular Filtration Rate 12.0, Glucose Level 131H, Calcium Level 8.6, Total Bilirubin 1.5H, Direct Bilirubin 1.0H, Aspartate Amino Transf (AST/SGOT) 54H, Alanine Aminotransferase (ALT/SGPT) 127H, Alkaline Phosphatase 186H, Total Protein 5.9L, Albumin 2.5L, Globulin 3.4, Albumin/ Globulin Ratio 0.7L Height (Feet): 5 Height (Inches): 6.00 Weight (Pounds): 168 General Appearance: no apparent distress EENT: normal ENT inspection Neck: supple Cardiovascular: normal rate Respiratory/Chest: decreased breath sounds Abdomen: normal bowel sounds, non tender, soft Extremities: non-tender João Rdz MD December 13, 2019 10:32
--- NOTE | 2019-12-13 10:55 | Pulmonology Progress Note ---
Assessment/Plan Assessment/Plan IMPRESSION: 1. Bilateral pneumonia. 2. Positive COVID-19. 3. Respiratory failure. DISCUSSION: Intubated On AC 20; FiO2 100; PEEP 10; SaO2 99% Abd Xray shows mediastinal PTX Recent CXR 12/06; no PTX or pneumomediastinum seen Repeat CXR today again shows mediastinal PTX Continue proning On Fentanyl due to high triglycerides Continue proning as heart rate tolerates Saturations are better Grave prognosis I will follow carefully. S/p HD S/p Actemra Blood CS ? contaminant Needs ongoing HD; more ultrafiltration Urine CS negative Sushil Cortes M.D. Subjective ROS Limited/Unobtainable: No Interval Events: Intubated ;proning continuing Constitutional: Reports: fatigue, other HEENT: Repors: no symptoms Respiratory: Reports: no symptoms Cardiovascular: Reports: no symptoms Gastrointestinal/Abdominal: Denies: nausea, vomiting, diarrhea Genitourinary: Reports: no symptoms Psychiatric: Reports: other Skin: Denies: rash Musculoskeletal: Reports: other Allergies: Coded Allergies: No Known Allergies (Unverified , 11/29/19) All Systems: reviewed and negative except above Objective Last 24 Hour Vital Signs Date Time Temp Pulse Resp B/P (MAP) Pulse Ox O2 Delivery O2 Flow Rate FiO2 12/13/19 09:14 100 22 100 12/13/19 07:30 98.3 105 19 125/63 (83) 99 12/13/19 07:00 101 23 100 12/13/19 07:00 24 Mechanical Ventilator 100 12/13/19 07:00 116/58 12/13/19 07:00 100 24 116/58 (77) 99 12/13/19 06:30 98 24 126/63 (84) 99 12/13/19 06:00 24 Mechanical Ventilator 100 12/13/19 06:00 117/59 12/13/19 06:00 97 24 117/59 (78) 99 12/13/19 05:30 96 24 124/64 (84) 99 12/13/19 05:00 25 Mechanical Ventilator 100 12/13/19 05:00 117/59 12/13/19 05:00 98 25 122/62 (82) 99 12/13/19 04:45 101 26 100 12/13/19 04:30 99 23 125/59 (81) 98 12/13/19 04:00 98.1 100 24 124/62 (82) 98 12/13/19 04:00 101 12/13/19 04:00 24 Mechanical Ventilator 40 12/13/19 04:00 124/63 12/13/19 04:00 24 Mechanical Ventilator 100 12/13/19 04:00 100 12/13/19 04:00 Mechanical Ventilator 12/13/19 03:30 101 20 118/56 (76) 96 12/13/19 03:00 101 23 142/67 (92) 99 12/13/19 03:00 142/67 12/13/19 03:00 23 Mechanical Ventilator 100 12/13/19 02:30 101 22 124/64 (84) 99 12/13/19 02:30 99 26 100 12/13/19 02:00 125/62 12/13/19 02:00 24 Mechanical Ventilator 100 12/13/19 02:00 98 24 125/62 (83) 99 12/13/19 01:30 96 24 119/59 (79) 99 12/13/19 01:00 98 22 118/62 (80) 99 12/13/19 01:00 118/62 12/13/19 01:00 22 Mechanical Ventilator 100 12/13/19 00:45 98 24 118/62 (80) 99 12/13/19 00:30 101 24 118/63 (81) 99 12/13/19 00:00 103 12/13/19 00:00 114/60 12/13/19 00:00 27 Mechanical Ventilator 100 12/13/19 00:00 99.1 105 27 114/60 (78) 99 12/13/19 00:00 Mechanical Ventilator 12/12/19 23:30 102 23 116/63 (80) 99 12/12/19 23:00 118/61 12/12/19 23:00 26 Mechanical Ventilator 100 12/12/19 23:00 100 26 118/61 (80) 99 12/12/19 22:32 104 28 100 12/12/19 22:30 100 26 116/57 (76) 99 12/12/19 22:15 21 Mechanical Ventilator 100 12/12/19 22:00 107/58 12/12/19 22:00 25 Mechanical Ventilator 100 12/12/19 22:00 105 23 107/58 (74) 99 12/12/19 21:30 109 26 109/58 (75) 99 12/12/19 21:00 106 26 110/59 (76) 100 12/12/19 21:00 110/59 12/12/19 21:00 26 Mechanical Ventilator 100 12/12/19 20:30 104 0 113/64 (80) 100 12/12/19 20:00 98.1 104 5 98/62 (74) 99 12/12/19 20:00 Mechanical Ventilator 12/12/19 20:00 103 12/12/19 20:00 98/62 12/12/19 20:00 14 Mechanical Ventilator 100 12/12/19 20:00 100 12/12/19 19:24 105 30 100 12/12/19 19:00 112 6 96/55 (69) 97 12/12/19 19:00 96/55 12/12/19 19:00 13 Mechanical Ventilator 100 12/12/19 18:30 108 11 102/59 (73) 97 12/12/19 18:00 107 8 110/66 (81) 96 12/12/19 18:00 Mechanical Ventilator 12/12/19 17:00 Mechanical Ventilator 12/12/19 17:00 107 17 86/72 (77) 96 12/12/19 16:24 117 17 105/53 (70) 91 12/12/19 16:04 100 12/12/19 16:00 121 24 103/54 (70) 80 12/12/19 16:00 Mechanical Ventilator 12/12/19 16:00 100 12/12/19 16:00 113 12/12/19 16:00 Mechanical Ventilator 12/12/19 15:00 Mechanical Ventilator 12/12/19 15:00 97.3 116 20 112/55 (74) 85 12/12/19 14:45 116 28 100 12/12/19 14:00 111 19 120/57 (78) 91 12/12/19 14:00 Mechanical Ventilator 12/12/19 13:00 111 20 132/59 (83) 91 12/12/19 12:17 Mechanical Ventilator 12/12/19 12:00 110 12/12/19 12:00 Mechanical Ventilator 12/12/19 12:00 100 12/12/19 12:00 114 24 129/63 (85) 94 12/12/19 11:06 109 22 100 12/12/19 11:00 107 24 129/61 (83) 95 12/12/19 11:00 Mechanical Ventilator Intake and Output 12/12/19 12/13/19 19:00 07:00 Intake Total 807.98 ml 1426.17 ml Output Total 130 ml 3150 ml Balance 677.98 ml -1723.83 ml Free Water 120 ml IV Total 562.98 ml 886.17 ml Tube Feeding 245 ml 420 ml Output Urine Total 0 ml 0 ml Stool Total 130 ml 150 ml Hemodialysis UF 3000 ml General Appearance: other HEENT: normocephalic, atraumatic, no JVD, other Respiratory/Chest: chest wall non-tender, lungs clear Cardiovascular: normal peripheral pulses, normal rate Abdomen: normal bowel sounds, soft, non tender, no organomegaly, non distended Genitourinary: other Extremities: no cyanosis Skin: no rash Neurologic/Psychiatric: other Lymphatic: no neck adenopathy Musculoskeletal: no effusion Microbiology Date/Time Source Procedure Growth Status 12/10/19 21:15 Blood Blood Culture - Preliminary NO GROWTH AFTER 48 HOURS Resulted 12/10/19 21:00 Blood Blood Culture - Preliminary NO GROWTH AFTER 48 HOURS Resulted 12/11/19 22:50 Sputum Gram Stain - Final Resulted 12/11/19 22:50 Sputum Sputum Culture - Preliminary NO GROWTH Resulted 12/11/19 22:50 Stool Clostridium difficile Toxin Assay - Final Complete 12/11/19 20:33 Indwelling Cath Urine Culture - Final NO GROWTH AFTER 48 HOURS Complete Laboratory Tests 12/12/19 11:10: Random Vancomycin Level 18.7 12/13/19 03:26: White Blood Count 23.9*H, Red Blood Count 3.56L, Hemoglobin 10.7L, Hematocrit 32.9L, Mean Corpuscular Volume 92, Mean Corpuscular Hemoglobin 30.0, Mean Corpuscular Hemoglobin Concent 32.5, Red Cell Distribution Width 13.5, Platelet Count 146L, Mean Platelet Volume 9.6, Neutrophils (%) (Auto) , Lymphocytes (%) ( Auto) , Monocytes (%) (Auto) , Eosinophils (%) (Auto) , Basophils (%) (Auto) , Differential Total Cells Counted 100, Neutrophils % (Manual) 89H, Lymphocytes % (Manual) 5L, Monocytes % (Manual) 5, Eosinophils % (Manual) 0, Basophils % ( Manual) 0, Metamyelocytes % 1H, Band Neutrophils 0, Platelet Estimate DecreasedL , Platelet Morphology Normal, Sodium Level 142, Potassium Level 3.8, Chloride Level 101, Carbon Dioxide Level 34H, Anion Gap 8, Blood Urea Nitrogen 46H, Creatinine 5.0H, Estimat Glomerular Filtration Rate 12.0, Glucose Level 131H, Calcium Level 8.6, Total Bilirubin 1.5H, Direct Bilirubin 1.0H, Aspartate Amino Transf (AST/SGOT) 54H, Alanine Aminotransferase (ALT/SGPT) 127H, Alkaline Phosphatase 186H, Total Protein 5.9L, Albumin 2.5L, Globulin 3.4, Albumin/ Globulin Ratio 0.7L Current Medications Medications (Trade) Dose Ordered Sig/Vicki Route PRN Reason Start Time Stop Time Status Last Admin Dose Admin Acetaminophen (Tylenol) 650 mg Q4H PRN NG Temp >100.5 12/06/19 14:15 01/05/20 14:14 12/10/19 04:34 Acetaminophen (Tylenol) 650 mg Q4H PRN RECTAL Mild Pain (Pain Scale 1-3) 12/04/19 11:45 01/03/20 11:44 12/06/19 19:17 Cefepime HCl 500 mg/Dextrose 50 ml @ 100 mls/hr Q24HRS IV 12/10/19 23:00 12/17/19 22:59 12/12/19 21:13 Chlorhexidine Gluconate (Arely-Hex 2%) 1 applic DAILY@2000 TOPIC 12/05/19 20:00 03/04/20 19:59 12/12/19 21:12 Dextrose (Dextrose 50%) 25 ml Q30M PRN IV Hypoglycemia 11/29/19 14:15 02/27/20 14:14 Dextrose (Dextrose 50%) 50 ml Q30M PRN IV Hypoglycemia 11/29/19 14:15 02/27/20 14:14 Fentanyl Citrate 2500 mcg/Sodium Chloride 250 ml @ 0 mls/hr Q24H IV 12/13/19 00:00 12/20/19 00:00 12/13/19 04:00 Hydralazine HCl (Apresoline) 10 mg Q4H PRN IV For High Blood Pressure 11/29/19 15:15 02/27/20 15:14 Loperamide HCl (Imodium) 2 mg Q6H PRN NG Diarrhea 12/12/19 12:45 01/11/20 12:44 Metronidazole 100 ml @ 100 mls/hr Q8HR IVPB 12/10/19 23:00 12/17/19 22:59 12/13/19 06:02 Midodrine (Pro-Amatine) 10 mg THREE TIMES A DAY ORAL 12/12/19 13:00 03/11/20 12:59 12/13/19 08:45 Norepinephrine Bitartrate 16 mg/ Dextrose 566 ml @ 0 mls/hr Q24H IV 12/06/19 09:00 01/05/20 08:59 12/13/19 04:00 Ondansetron HCl (Zofran) 4 mg Q6H PRN IVP Nausea & Vomiting 11/29/19 14:15 12/29/19 14:14 Pantoprazole (Protonix) 40 mg DAILY IVP 11/30/19 12:15 12/30/19 12:14 12/13/19 08:45 Potassium Chloride (K-Dur) 40 meq TWICE A DAY ORAL 12/11/19 09:30 03/10/20 09:29 12/13/19 08:45 Vancomycin HCl (Vanco rx to dose) 1 ea DAILY PRN MISC Per rx protocol 12/08/19 19:30 01/07/20 19:29 Vasopressin 100 units/Sodium Chloride 100 ml @ 0 mls/hr Q24H IV 12/06/19 09:00 01/05/20 08:59 12/06/19 09:03 Sushil Cortes MD December 13, 2019 10:54
--- NOTE | 2019-12-13 11:22 | Nephrology Progress Note ---
Assessment/Plan Plan #ALBARO- concerns for developing ischemic ATN in the setting of sepsis- r/o vanco toxicity - r/o COVID nephropathy - now with likely ATN #Hyperkalemia due to renal insuffiency - exacerbated by acidosis #COID sepsis #COVID pneumonia #hypoxemic respiratary failure #HTN- now in shock #mediastinal PTX - next HD today - order placed- UF as tolerated- 3L-> will given albumin PRN - albumin 25g x1 today - middorine 10mg q8hr - monitor I&Os - daily weights - monitor lytes closely - proned - GOALS of care discussion - continue pressor support to maintain MAP > 65- continue levo - continue fentanyl dip - abx per ID- on vanco and cefepime, flagyl - vent management per pulm -Abd Xray shows mediastinal PTX - too high risk for thorocotomy Subjective ROS Limited/Unobtainable: Yes Subjective s/p HD yesterday with 3L UF albumin 25g now plan HD gain today chest xray looks better remains oliguric on Fio2 100 on levo Abd Xray shows mediastinal PTX On fentanyl drip Objective Objective Last 24 Hour Vital Signs Date Time Temp Pulse Resp B/P (MAP) Pulse Ox O2 Delivery O2 Flow Rate FiO2 12/13/19 09:14 100 22 100 12/13/19 07:30 98.3 105 19 125/63 (83) 99 12/13/19 07:00 101 23 100 12/13/19 07:00 24 Mechanical Ventilator 100 12/13/19 07:00 116/58 12/13/19 07:00 100 24 116/58 (77) 99 12/13/19 06:30 98 24 126/63 (84) 99 12/13/19 06:00 24 Mechanical Ventilator 100 12/13/19 06:00 117/59 12/13/19 06:00 97 24 117/59 (78) 99 12/13/19 05:30 96 24 124/64 (84) 99 12/13/19 05:00 25 Mechanical Ventilator 100 12/13/19 05:00 117/59 12/13/19 05:00 98 25 122/62 (82) 99 12/13/19 04:45 101 26 100 12/13/19 04:30 99 23 125/59 (81) 98 12/13/19 04:00 98.1 100 24 124/62 (82) 98 12/13/19 04:00 101 12/13/19 04:00 24 Mechanical Ventilator 40 12/13/19 04:00 124/63 12/13/19 04:00 24 Mechanical Ventilator 100 12/13/19 04:00 100 12/13/19 04:00 Mechanical Ventilator 12/13/19 03:30 101 20 118/56 (76) 96 12/13/19 03:00 101 23 142/67 (92) 99 12/13/19 03:00 142/67 12/13/19 03:00 23 Mechanical Ventilator 100 12/13/19 02:30 101 22 124/64 (84) 99 12/13/19 02:30 99 26 100 12/13/19 02:00 125/62 12/13/19 02:00 24 Mechanical Ventilator 100 12/13/19 02:00 98 24 125/62 (83) 99 12/13/19 01:30 96 24 119/59 (79) 99 12/13/19 01:00 98 22 118/62 (80) 99 12/13/19 01:00 118/62 12/13/19 01:00 22 Mechanical Ventilator 100 12/13/19 00:45 98 24 118/62 (80) 99 12/13/19 00:30 101 24 118/63 (81) 99 12/13/19 00:00 103 12/13/19 00:00 114/60 12/13/19 00:00 27 Mechanical Ventilator 100 12/13/19 00:00 99.1 105 27 114/60 (78) 99 12/13/19 00:00 Mechanical Ventilator 12/12/19 23:30 102 23 116/63 (80) 99 12/12/19 23:00 118/61 12/12/19 23:00 26 Mechanical Ventilator 100 12/12/19 23:00 100 26 118/61 (80) 99 12/12/19 22:32 104 28 100 12/12/19 22:30 100 26 116/57 (76) 99 12/12/19 22:15 21 Mechanical Ventilator 100 12/12/19 22:00 107/58 12/12/19 22:00 25 Mechanical Ventilator 100 12/12/19 22:00 105 23 107/58 (74) 99 12/12/19 21:30 109 26 109/58 (75) 99 12/12/19 21:00 106 26 110/59 (76) 100 12/12/19 21:00 110/59 12/12/19 21:00 26 Mechanical Ventilator 100 12/12/19 20:30 104 0 113/64 (80) 100 12/12/19 20:00 98.1 104 5 98/62 (74) 99 12/12/19 20:00 Mechanical Ventilator 12/12/19 20:00 103 12/12/19 20:00 98/62 12/12/19 20:00 14 Mechanical Ventilator 100 12/12/19 20:00 100 12/12/19 19:24 105 30 100 12/12/19 19:00 112 6 96/55 (69) 97 12/12/19 19:00 96/55 12/12/19 19:00 13 Mechanical Ventilator 100 12/12/19 18:30 108 11 102/59 (73) 97 12/12/19 18:00 107 8 110/66 (81) 96 12/12/19 18:00 Mechanical Ventilator 12/12/19 17:00 Mechanical Ventilator 12/12/19 17:00 107 17 86/72 (77) 96 12/12/19 16:24 117 17 105/53 (70) 91 12/12/19 16:04 100 12/12/19 16:00 121 24 103/54 (70) 80 12/12/19 16:00 Mechanical Ventilator 12/12/19 16:00 100 12/12/19 16:00 113 12/12/19 16:00 Mechanical Ventilator 12/12/19 15:00 Mechanical Ventilator 12/12/19 15:00 97.3 116 20 112/55 (74) 85 12/12/19 14:45 116 28 100 12/12/19 14:00 111 19 120/57 (78) 91 12/12/19 14:00 Mechanical Ventilator 12/12/19 13:00 111 20 132/59 (83) 91 12/12/19 12:17 Mechanical Ventilator 12/12/19 12:00 110 12/12/19 12:00 Mechanical Ventilator 12/12/19 12:00 100 12/12/19 12:00 114 24 129/63 (85) 94 Intake and Output 12/12/19 12/13/19 19:00 07:00 Intake Total 807.98 ml 1426.17 ml Output Total 130 ml 3150 ml Balance 677.98 ml -1723.83 ml Free Water 120 ml IV Total 562.98 ml 886.17 ml Tube Feeding 245 ml 420 ml Output Urine Total 0 ml 0 ml Stool Total 130 ml 150 ml Hemodialysis UF 3000 ml Laboratory Tests 12/13/19 03:26: White Blood Count 23.9*H, Red Blood Count 3.56L, Hemoglobin 10.7L, Hematocrit 32.9L, Mean Corpuscular Volume 92, Mean Corpuscular Hemoglobin 30.0, Mean Corpuscular Hemoglobin Concent 32.5, Red Cell Distribution Width 13.5, Platelet Count 146L, Mean Platelet Volume 9.6, Neutrophils (%) (Auto) , Lymphocytes (%) ( Auto) , Monocytes (%) (Auto) , Eosinophils (%) (Auto) , Basophils (%) (Auto) , Differential Total Cells Counted 100, Neutrophils % (Manual) 89H, Lymphocytes % (Manual) 5L, Monocytes % (Manual) 5, Eosinophils % (Manual) 0, Basophils % ( Manual) 0, Metamyelocytes % 1H, Band Neutrophils 0, Platelet Estimate DecreasedL , Platelet Morphology Normal, Sodium Level 142, Potassium Level 3.8, Chloride Level 101, Carbon Dioxide Level 34H, Anion Gap 8, Blood Urea Nitrogen 46H, Creatinine 5.0H, Estimat Glomerular Filtration Rate 12.0, Glucose Level 131H, Calcium Level 8.6, Total Bilirubin 1.5H, Direct Bilirubin 1.0H, Aspartate Amino Transf (AST/SGOT) 54H, Alanine Aminotransferase (ALT/SGPT) 127H, Alkaline Phosphatase 186H, Total Protein 5.9L, Albumin 2.5L, Globulin 3.4, Albumin/ Globulin Ratio 0.7L 12/13/19 10:50: Random Vancomycin Level [Pending] 12/13/19 11:06: Arterial Blood pH 7.003*L, Arterial Blood Partial Pressure CO2 149.1*H, Arterial Blood Partial Pressure O2 146.8H, Arterial Blood HCO3 36.2H, Arterial Blood Oxygen Saturation 98.2, Arterial Blood Base Excess 1.4, Melecio Test Positive Height (Feet): 5 Height (Inches): 6.00 Weight (Pounds): 168 Objective General Appearance: other - intubated- proned Lines, tubes and drains: central line HEENT: normocephalic, atraumatic Respiratory/Chest: rhonchi - bilaterally Cardiovascular/Chest: other - tachycardic Extremities: pitting Dorian Soriano M.D. December 13, 2019 11:22
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
--- NOTE | 2019-12-13 11:45 | NUR ---
NURSE NOTES: LATE ENTRY: CALLED [facility] FOR STAT ORDER TODAY.
--- NOTE | 2019-12-13 11:47 | NUR ---
CASE MANAGEMENT:REVIEW 12/13/2019 SI: COVID 19 PNA. ACUTE RESPIRATORY FAILURE ~ INTUBATED 98.3 HR 105 RR 19 B/P 125/63 SATS 99% ON MECH VENT FIO2 100 LABS: WBC 23.9 CO2 34 BUN 46 CR 5 GLU 131 TBILI 1.5 DBILI 1 AST 54 ALT 127 ALP 186 ABGs PH 7.003 PCO2 149.1 PO2 146.8 HCO3 36.2 IS: FENTANYL GTT IV CEFEPIME Q24 IV FLAGYL Q8HRS VANCOMYCIN IV QD IV PROTONIX Q24 KDUR PO BID VASOPRESSIN IV Q24H LEVOPHED IV PER PARAMETERS MIDODRINE NG TID : ICU STATUS DCP; PATIENT IS FROM HOME
--- NOTE | 2019-12-13 12:12 | NUR ---
NURSE NOTES: late entry: PT IN BED, PRONE POSITION. SEDATED ON FENTANYL DRIP AT 300MCG/MIN. ST ON MONITOR. VSS. INTUBATED 8, 24CM AT LIP. VENT SETTINGS AC 20, VT 500, FI02 100%, PEEP 10. TUBE FEEDING RUNNING NEPRO AT 35ML/HR. NGT LT NARES. RECTAL TUBE INTACT, DRAINING GREEN STOOL. PT ANURIC, MIKE INTACT. SKIN- SEE ASSESSMENT. LT WRIST 20G, YESI W/ PIGTAIL RT FEMORAL TLC. A FEBRILE. AIRBORNE ISOLATION PRECAUTIONS IN PLACE. BED ALARM ON, IN LOW POSITION. WILL CONTINUE TO MONITOR TP.
--- NOTE | 2019-12-13 12:57 | Cardiac Electrophysiology PN ---
Assessment/Plan Assessment/Plan 1. Atrial fib with RVR 170 before intubation on 12/04/19. Converted to Sinus tach Troponin 0.77. No further atrial fib. In SR 2. Sinus Tachycardia due to respiratory failure and COVID-19 pneumonia. On IV antibiotic per ID. Echo pending. 3. Septic shock. On Levophed 10 Mcg and iv Abx. 4. Respiratory failure, on the Vent by Dr. Cortes. 100% Fio2 PEEP 10 and is proned 5. Acute renal failure. On HD per Dr. Sanchez via RFV [place] 6. Full code DW RN Subjective Subjective Intubated in ICU on 100% Fio2 and PEEP 10 on Levo 10 mcg and is proned . Atrial fib with RVR 160s on 12/04/19 but no recurrence. In SR Had HD yesterday. RN in room Objective Last 24 Hour Vital Signs Date Time Temp Pulse Resp B/P (MAP) Pulse Ox O2 Delivery O2 Flow Rate FiO2 12/13/19 11:15 104 21 100 12/13/19 09:14 100 22 100 12/13/19 07:30 98.3 105 19 125/63 (83) 99 12/13/19 07:00 101 23 100 12/13/19 07:00 24 Mechanical Ventilator 100 12/13/19 07:00 116/58 12/13/19 07:00 100 24 116/58 (77) 99 12/13/19 06:30 98 24 126/63 (84) 99 12/13/19 06:00 24 Mechanical Ventilator 100 12/13/19 06:00 117/59 12/13/19 06:00 97 24 117/59 (78) 99 12/13/19 05:30 96 24 124/64 (84) 99 12/13/19 05:00 25 Mechanical Ventilator 100 12/13/19 05:00 117/59 12/13/19 05:00 98 25 122/62 (82) 99 12/13/19 04:45 101 26 100 12/13/19 04:30 99 23 125/59 (81) 98 12/13/19 04:00 98.1 100 24 124/62 (82) 98 12/13/19 04:00 101 12/13/19 04:00 24 Mechanical Ventilator 40 12/13/19 04:00 124/63 12/13/19 04:00 24 Mechanical Ventilator 100 12/13/19 04:00 100 12/13/19 04:00 Mechanical Ventilator 12/13/19 03:30 101 20 118/56 (76) 96 12/13/19 03:00 101 23 142/67 (92) 99 12/13/19 03:00 142/67 12/13/19 03:00 23 Mechanical Ventilator 100 12/13/19 02:30 101 22 124/64 (84) 99 12/13/19 02:30 99 26 100 12/13/19 02:00 125/62 12/13/19 02:00 24 Mechanical Ventilator 100 12/13/19 02:00 98 24 125/62 (83) 99 12/13/19 01:30 96 24 119/59 (79) 99 12/13/19 01:00 98 22 118/62 (80) 99 12/13/19 01:00 118/62 12/13/19 01:00 22 Mechanical Ventilator 100 12/13/19 00:45 98 24 118/62 (80) 99 12/13/19 00:30 101 24 118/63 (81) 99 12/13/19 00:00 103 12/13/19 00:00 114/60 12/13/19 00:00 27 Mechanical Ventilator 100 12/13/19 00:00 99.1 105 27 114/60 (78) 99 12/13/19 00:00 Mechanical Ventilator 12/12/19 23:30 102 23 116/63 (80) 99 12/12/19 23:00 118/61 12/12/19 23:00 26 Mechanical Ventilator 100 12/12/19 23:00 100 26 118/61 (80) 99 12/12/19 22:32 104 28 100 12/12/19 22:30 100 26 116/57 (76) 99 12/12/19 22:15 21 Mechanical Ventilator 100 12/12/19 22:00 107/58 12/12/19 22:00 25 Mechanical Ventilator 100 12/12/19 22:00 105 23 107/58 (74) 99 12/12/19 21:30 109 26 109/58 (75) 99 12/12/19 21:00 106 26 110/59 (76) 100 12/12/19 21:00 110/59 12/12/19 21:00 26 Mechanical Ventilator 100 4/30/20 20:30 104 0 113/64 (80) 100 12/12/19 20:00 98.1 104 5 98/62 (74) 99 12/12/19 20:00 Mechanical Ventilator 12/12/19 20:00 103 12/12/19 20:00 98/62 12/12/19 20:00 14 Mechanical Ventilator 100 12/12/19 20:00 100 12/12/19 19:24 105 30 100 12/12/19 19:00 112 6 96/55 (69) 97 12/12/19 19:00 96/55 12/12/19 19:00 13 Mechanical Ventilator 100 12/12/19 18:30 108 11 102/59 (73) 97 12/12/19 18:00 107 8 110/66 (81) 96 12/12/19 18:00 Mechanical Ventilator 12/12/19 17:00 Mechanical Ventilator 12/12/19 17:00 107 17 86/72 (77) 96 12/12/19 16:24 117 17 105/53 (70) 91 12/12/19 16:04 100 12/12/19 16:00 121 24 103/54 (70) 80 12/12/19 16:00 Mechanical Ventilator 12/12/19 16:00 100 12/12/19 16:00 113 12/12/19 16:00 Mechanical Ventilator 12/12/19 15:00 Mechanical Ventilator 12/12/19 15:00 97.3 116 20 112/55 (74) 85 12/12/19 14:45 116 28 100 12/12/19 14:00 111 19 120/57 (78) 91 12/12/19 14:00 Mechanical Ventilator 12/12/19 13:00 111 20 132/59 (83) 91 Intake and Output 12/12/19 12/13/19 19:00 07:00 Intake Total 807.98 ml 1426.17 ml Output Total 130 ml 3150 ml Balance 677.98 ml -1723.83 ml Free Water 120 ml IV Total 562.98 ml 886.17 ml Tube Feeding 245 ml 420 ml Output Urine Total 0 ml 0 ml Stool Total 130 ml 150 ml Hemodialysis UF 3000 ml Laboratory Tests Test 12/13/19 03:26 12/13/19 10:50 12/13/19 11:06 White Blood Count 23.9 K/UL (4.8-10.8) *H Red Blood Count 3.56 M/UL (4.70-6.10) L Hemoglobin 10.7 G/DL (14.2-18.0) L Hematocrit 32.9 % (42.0-52.0) L Mean Corpuscular Volume 92 FL (80-99) Mean Corpuscular Hemoglobin 30.0 PG (27.0-31.0) Mean Corpuscular Hemoglobin Concent 32.5 G/DL (32.0-36.0) Red Cell Distribution Width 13.5 % (11.6-14.8) Platelet Count 146 K/UL (150-450) L Mean Platelet Volume 9.6 FL (6.5-10.1) Neutrophils (%) (Auto) % (45.0-75.0) Lymphocytes (%) (Auto) % (20.0-45.0) Monocytes (%) (Auto) % (1.0-10.0) Eosinophils (%) (Auto) % (0.0-3.0) Basophils (%) (Auto) % (0.0-2.0) Differential Total Cells Counted 100 Neutrophils % (Manual) 89 % (45-75) H Lymphocytes % (Manual) 5 % (20-45) L Monocytes % (Manual) 5 % (1-10) Eosinophils % (Manual) 0 % (0-3) Basophils % (Manual) 0 % (0-2) Metamyelocytes % 1 % (0-0) H Band Neutrophils 0 % (0-8) Platelet Estimate Decreased L Platelet Morphology Normal Sodium Level 142 MMOL/L (136-145) Potassium Level 3.8 MMOL/L (3.5-5.1) Chloride Level 101 MMOL/L (98-107) Carbon Dioxide Level 34 MMOL/L (21-32) H Anion Gap 8 mmol/L (5-15) Blood Urea Nitrogen 46 mg/dL (7-18) H Creatinine 5.0 MG/DL (0.55-1.30) H Estimat Glomerular Filtration Rate 12.0 mL/min (>60) Glucose Level 131 MG/DL (74-106) H Calcium Level 8.6 MG/DL (8.5-10.1) Total Bilirubin 1.5 MG/DL (0.2-1.0) H Direct Bilirubin 1.0 MG/DL (0.0-0.3) H Aspartate Amino Transf (AST/SGOT) 54 U/L (15-37) H Alanine Aminotransferase (ALT/SGPT) 127 U/L (12-78) H Alkaline Phosphatase 186 U/L (46-116) H Total Protein 5.9 G/DL (6.4-8.2) L Albumin 2.5 G/DL (3.4-5.0) L Globulin 3.4 g/dL Albumin/Globulin Ratio 0.7 (1.0-2.7) L Random Vancomycin Level 13.4 ug/mL Arterial Blood pH 7.003 (7.350-7.450) Arterial Blood Partial Pressure CO2 149.1 mmHg (35.0-45.0) *H Arterial Blood Partial Pressure O2 146.8 mmHg (75.0-100.0) H Arterial Blood HCO3 36.2 mmol/L (22.0-26.0) H Arterial Blood Oxygen Saturation 98.2 % (95-100) Arterial Blood Base Excess 1.4 (-2-2) Melecio Test Positive Microbiology Date/Time Source Procedure Growth Status 12/10/19 21:15 Blood Blood Culture - Preliminary NO GROWTH AFTER 48 HOURS Resulted 12/10/19 21:00 Blood Blood Culture - Preliminary NO GROWTH AFTER 48 HOURS Resulted 12/11/19 22:50 Sputum Gram Stain - Final Resulted 12/11/19 22:50 Sputum Sputum Culture - Preliminary NO GROWTH Resulted 12/11/19 22:50 Stool Clostridium difficile Toxin Assay - Final Complete 12/11/19 20:33 Indwelling Cath Urine Culture - Final NO GROWTH AFTER 48 HOURS Complete Objective HEAD AND NECK: Orally intubated No JVD LUNGS: Decreased breath sounds. Coarse rhonchi. CARDIOVASCULAR: Tachycardic S1 and S2 with no gallop. ABDOMEN: Soft. EXTREMITIES: 1 plus pitting edema. RFV [place] in place Raul Appiah MD December 13, 2019 12:57
[2019-12-13] MEDS ORDERED: Vancomycin 1gm/D5W 275ml IVPB ONE ×2 (13:00)
--- NOTE | 2019-12-13 14:22 | Urology Progress Note ---
Assessment/Plan Status: unchanged Assessment/Plan: 1. Phimosis. 2. Retention. 3. Hematuria. 4. Pyuria. 5. Proteinuria. 6. Acute kidney injury. 7. Meatal stenosis. monitor clinically maintain barnes, placed 12/04 hand irrigate PRN monitor urine output and renal fxn consider renal imaging abx as ordered HD Subjective Allergies: Coded Allergies: No Known Allergies (Unverified , 11/29/19) Subjective remains on vent, still with minimal urine output, HD initiated Objective Last 24 Hour Vital Signs Date Time Temp Pulse Resp B/P (MAP) Pulse Ox O2 Delivery O2 Flow Rate FiO2 12/13/19 13:09 116 25 100 12/13/19 12:30 115 18 112/55 (74) 100 12/13/19 12:00 Mechanical Ventilator 12/13/19 12:00 100 12/13/19 12:00 99.4 111 27 114/53 (73) 100 12/13/19 11:30 107 25 122/61 (81) 100 12/13/19 11:15 104 21 100 12/13/19 11:00 105 14 117/65 (82) 100 12/13/19 10:30 106 25 128/59 (82) 100 12/13/19 10:00 105 16 127/65 (85) 100 12/13/19 09:30 106 18 128/66 (86) 100 12/13/19 09:14 100 22 100 12/13/19 09:00 107 21 133/63 (86) 100 12/13/19 08:30 98.8 108 24 127/63 (84) 100 12/13/19 08:00 110 24 122/62 (82) 100 12/13/19 08:00 Mechanical Ventilator 12/13/19 08:00 100 12/13/19 07:30 98.3 105 19 125/63 (83) 99 12/13/19 07:00 101 23 100 12/13/19 07:00 24 Mechanical Ventilator 100 12/13/19 07:00 116/58 12/13/19 07:00 100 24 116/58 (77) 99 12/13/19 06:30 98 24 126/63 (84) 99 12/13/19 06:00 24 Mechanical Ventilator 100 12/13/19 06:00 117/59 12/13/19 06:00 97 24 117/59 (78) 99 12/13/19 05:30 96 24 124/64 (84) 99 12/13/19 05:00 25 Mechanical Ventilator 100 12/13/19 05:00 117/59 12/13/19 05:00 98 25 122/62 (82) 99 12/13/19 04:45 101 26 100 12/13/19 04:30 99 23 125/59 (81) 98 12/13/19 04:00 98.1 100 24 124/62 (82) 98 12/13/19 04:00 101 12/13/19 04:00 24 Mechanical Ventilator 40 12/13/19 04:00 124/63 12/13/19 04:00 24 Mechanical Ventilator 100 12/13/19 04:00 100 12/13/19 04:00 Mechanical Ventilator 12/13/19 03:30 101 20 118/56 (76) 96 12/13/19 03:00 101 23 142/67 (92) 99 12/13/19 03:00 142/67 12/13/19 03:00 23 Mechanical Ventilator 100 12/13/19 02:30 101 22 124/64 (84) 99 12/13/19 02:30 99 26 100 12/13/19 02:00 125/62 12/13/19 02:00 24 Mechanical Ventilator 100 12/13/19 02:00 98 24 125/62 (83) 99 12/13/19 01:30 96 24 119/59 (79) 99 12/13/19 01:00 98 22 118/62 (80) 99 12/13/19 01:00 118/62 12/13/19 01:00 22 Mechanical Ventilator 100 12/13/19 00:45 98 24 118/62 (80) 99 12/13/19 00:30 101 24 118/63 (81) 99 12/13/19 00:00 103 12/13/19 00:00 114/60 12/13/19 00:00 27 Mechanical Ventilator 100 12/13/19 00:00 99.1 105 27 114/60 (78) 99 12/13/19 00:00 Mechanical Ventilator 12/12/19 23:30 102 23 116/63 (80) 99 12/12/19 23:00 118/61 12/12/19 23:00 26 Mechanical Ventilator 100 12/12/19 23:00 100 26 118/61 (80) 99 12/12/19 22:32 104 28 100 12/12/19 22:30 100 26 116/57 (76) 99 12/12/19 22:15 21 Mechanical Ventilator 100 12/12/19 22:00 107/58 12/12/19 22:00 25 Mechanical Ventilator 100 12/12/19 22:00 105 23 107/58 (74) 99 12/12/19 21:30 109 26 109/58 (75) 99 12/12/19 21:00 106 26 110/59 (76) 100 12/12/19 21:00 110/59 12/12/19 21:00 26 Mechanical Ventilator 100 12/12/19 20:30 104 0 113/64 (80) 100 12/12/19 20:00 98.1 104 5 98/62 (74) 99 12/12/19 20:00 Mechanical Ventilator 12/12/19 20:00 103 12/12/19 20:00 98/62 12/12/19 20:00 14 Mechanical Ventilator 100 12/12/19 20:00 100 12/12/19 19:24 105 30 100 12/12/19 19:00 112 6 96/55 (69) 97 12/12/19 19:00 96/55 12/12/19 19:00 13 Mechanical Ventilator 100 12/12/19 18:30 108 11 102/59 (73) 97 12/12/19 18:00 107 8 110/66 (81) 96 12/12/19 18:00 Mechanical Ventilator 12/12/19 17:00 Mechanical Ventilator 12/12/19 17:00 107 17 86/72 (77) 96 12/12/19 16:24 117 17 105/53 (70) 91 12/12/19 16:04 100 12/12/19 16:00 121 24 103/54 (70) 80 12/12/19 16:00 Mechanical Ventilator 12/12/19 16:00 100 12/12/19 16:00 113 12/12/19 16:00 Mechanical Ventilator 12/12/19 15:00 Mechanical Ventilator 12/12/19 15:00 97.3 116 20 112/55 (74) 85 12/12/19 14:45 116 28 100 Intake and Output 12/12/19 12/13/19 19:00 07:00 Intake Total 807.98 ml 1426.17 ml Output Total 130 ml 3150 ml Balance 677.98 ml -1723.83 ml Free Water 120 ml IV Total 562.98 ml 886.17 ml Tube Feeding 245 ml 420 ml Output Urine Total 0 ml 0 ml Stool Total 130 ml 150 ml Hemodialysis UF 3000 ml Microbiology Date/Time Source Procedure Growth Status 12/10/19 21:15 Blood Blood Culture - Preliminary NO GROWTH AFTER 48 HOURS Resulted 12/11/19 22:50 Sputum Gram Stain - Final Resulted 12/11/19 22:50 Sputum Sputum Culture - Preliminary NO GROWTH Resulted 12/11/19 22:50 Stool Clostridium difficile Toxin Assay - Final Complete 12/11/19 20:33 Indwelling Cath Urine Culture - Final NO GROWTH AFTER 48 HOURS Complete Current Medications Medications (Trade) Dose Ordered Sig/Vicki Route PRN Reason Start Time Stop Time Status Last Admin Dose Admin Acetaminophen (Tylenol) 650 mg Q4H PRN NG Temp >100.5 12/06/19 14:15 01/05/20 14:14 12/10/19 04:34 Acetaminophen (Tylenol) 650 mg Q4H PRN RECTAL Mild Pain (Pain Scale 1-3) 12/04/19 11:45 01/03/20 11:44 12/06/19 19:17 Cefepime HCl 500 mg/Dextrose 50 ml @ 100 mls/hr Q24HRS IV 12/10/19 23:00 12/17/19 22:59 12/12/19 21:13 Chlorhexidine Gluconate (Arely-Hex 2%) 1 applic DAILY@2000 TOPIC 12/05/19 20:00 03/04/20 19:59 12/12/19 21:12 Dextrose (Dextrose 50%) 25 ml Q30M PRN IV Hypoglycemia 11/29/19 14:15 02/27/20 14:14 Dextrose (Dextrose 50%) 50 ml Q30M PRN IV Hypoglycemia 11/29/19 14:15 02/27/20 14:14 Fentanyl Citrate 2500 mcg/Sodium Chloride 250 ml @ 0 mls/hr Q24H IV 12/13/19 00:00 12/20/19 00:00 12/13/19 04:00 Hydralazine HCl (Apresoline) 10 mg Q4H PRN IV For High Blood Pressure 11/29/19 15:15 02/27/20 15:14 Loperamide HCl (Imodium) 2 mg Q6H PRN NG Diarrhea 12/12/19 12:45 01/11/20 12:44 Metronidazole 100 ml @ 100 mls/hr Q8HR IVPB 12/10/19 23:00 12/17/19 22:59 12/13/19 06:02 Midodrine (Pro-Amatine) 10 mg THREE TIMES A DAY ORAL 12/12/19 13:00 03/11/20 12:59 12/13/19 12:47 Norepinephrine Bitartrate 16 mg/ Dextrose 566 ml @ 0 mls/hr Q24H IV 12/06/19 09:00 01/05/20 08:59 12/13/19 04:00 Ondansetron HCl (Zofran) 4 mg Q6H PRN IVP Nausea & Vomiting 11/29/19 14:15 12/29/19 14:14 Pantoprazole (Protonix) 40 mg DAILY IVP 11/30/19 12:15 12/30/19 12:14 12/13/19 08:45 Potassium Chloride (K-Dur) 40 meq TWICE A DAY ORAL 12/11/19 09:30 03/10/20 09:29 12/13/19 08:45 Vancomycin HCl (Vanco rx to dose) 1 ea DAILY PRN MISC Per rx protocol 12/08/19 19:30 01/07/20 19:29 Vancomycin HCl 1 gm/Dextrose 275 ml @ 183.708 mls/hr ONCE ONCE IVPB 12/13/19 13:00 12/13/19 14:29 12/13/19 12:48 Vasopressin 100 units/Sodium Chloride 100 ml @ 0 mls/hr Q24H IV 12/06/19 09:00 01/05/20 08:59 12/06/19 09:03 Laboratory Tests 12/13/19 03:26: White Blood Count 23.9*H, Red Blood Count 3.56L, Hemoglobin 10.7L, Hematocrit 32.9L, Mean Corpuscular Volume 92, Mean Corpuscular Hemoglobin 30.0, Mean Corpuscular Hemoglobin Concent 32.5, Red Cell Distribution Width 13.5, Platelet Count 146L, Mean Platelet Volume 9.6, Neutrophils (%) (Auto) , Lymphocytes (%) ( Auto) , Monocytes (%) (Auto) , Eosinophils (%) (Auto) , Basophils (%) (Auto) , Differential Total Cells Counted 100, Neutrophils % (Manual) 89H, Lymphocytes % (Manual) 5L, Monocytes % (Manual) 5, Eosinophils % (Manual) 0, Basophils % ( Manual) 0, Metamyelocytes % 1H, Band Neutrophils 0, Platelet Estimate DecreasedL , Platelet Morphology Normal, Sodium Level 142, Potassium Level 3.8, Chloride Level 101, Carbon Dioxide Level 34H, Anion Gap 8, Blood Urea Nitrogen 46H, Creatinine 5.0H, Estimat Glomerular Filtration Rate 12.0, Glucose Level 131H, Calcium Level 8.6, Total Bilirubin 1.5H, Direct Bilirubin 1.0H, Aspartate Amino Transf (AST/SGOT) 54H, Alanine Aminotransferase (ALT/SGPT) 127H, Alkaline Phosphatase 186H, Total Protein 5.9L, Albumin 2.5L, Globulin 3.4, Albumin/ Globulin Ratio 0.7L 12/13/19 10:50: Random Vancomycin Level 13.4 12/13/19 11:06: Arterial Blood pH 7.003*L, Arterial Blood Partial Pressure CO2 149.1*H, Arterial Blood Partial Pressure O2 146.8H, Arterial Blood HCO3 36.2H, Arterial Blood Oxygen Saturation 98.2, Arterial Blood Base Excess 1.4, Melecio Test Positive Height (Feet): 5 Height (Inches): 6.00 Weight (Pounds): 168 Objective stable no bleeding at prepuce barnes indwelling, marge urine Kai Berger MD December 13, 2019 14:22
--- NOTE | 2019-12-13 14:55 | General Progress Note ---
Assessment/Plan Status: unchanged Assessment/Plan: 59-year-old male with PMH of HTN presents with acute respiratory distress. #Acute Hypoxic Respiratory Failure s/p intubation #Severe sepsis #COVID19 positive #CAP #elevated d-dimer #Fevers - improved -Appreciate ICU level of care -s/p Intubation 12/03 -vent management per Pulm/ICU/CCM team -cont. droplet & isolation precautions -Transaminitis/d-dimer/fluctuating fevers likely reactive/ 2/2 COVID -cont. to monitor LFTs -sedation per pulm/ICU -s/p hydroxychloroquine -s/p actrema -prone position per Pulm -Pulm following, recs appreciated -ID, Dr. Rodriguez, following: Merrem, Vanc -cont. current management per ID/Pulm -abg per Pulm #loose stools -c diff negative -d/c PO vanco -immodium PRN #Pneumomediastinum #Subcutaneous emphysema -seen on abd XR -pt too high risk for bedside thoracostomy -d/w general sx and pulm/ICU #ALBARO #Hypernatremia #Hyperkalemia -likely 2/2 to above, COVID -kayexalate, insulin, D5 for hyperkalemia -cont. to montior -12/04: femoral HD cath placed -may need ultrafiltration -d/w Nephdeni, Dr. Soriano: s/p HD w/3 L removed yesterday, plan for HD again today #Transaminitis #Shock Liver -likely 2/2 to above/COVID -LFTs improving, ctm -abd us when off isolation -cont. NGT feeds -GI, Dr. Rdz, following, recs appreciated #Sinus Tachycardia 2/2 respiratory failure #HTN -hydralazine PRN -Cardio, , following: Echo after COVID negative DVT PPX: Lovenox Pt is at high risk of rapid decompensation and requires continued ICU level of care Prognosis grave/poor Time spent on encounter: 41 mins, 25 mins spent on coordination of care, reviewing tele monitor, discussed w/Nephdeni, RN. Time of note doesn't reflect time of encounter. Subjective Allergies: Coded Allergies: No Known Allergies (Unverified , 11/29/19) Subjective Follow up for acute hypoxic resp failure, COVID19 positive, s/p intubation, multi-organ failure. Remains afebrile, tachycardic on tele 110's. Remains on vent, AC 20, 500 VT, 100% fio2, PEEP 10. Leukocytosis remains elevated, WBC 23. s/p HD w/3 L removed yesterday Plan for HD again today. Pt remains intubated, unable to obtain ROS due to clinical picture. Objective Last 24 Hour Vital Signs Date Time Temp Pulse Resp B/P (MAP) Pulse Ox O2 Delivery O2 Flow Rate FiO2 12/13/19 14:00 Mechanical Ventilator 12/13/19 13:09 116 25 100 12/13/19 12:30 115 18 112/55 (74) 100 12/13/19 12:00 Mechanical Ventilator 12/13/19 12:00 100 12/13/19 12:00 99.4 111 27 114/53 (73) 100 12/13/19 12:00 112 12/13/19 11:30 107 25 122/61 (81) 100 12/13/19 11:15 104 21 100 12/13/19 11:00 105 14 117/65 (82) 100 12/13/19 10:30 106 25 128/59 (82) 100 12/13/19 10:00 105 16 127/65 (85) 100 12/13/19 09:30 106 18 128/66 (86) 100 12/13/19 09:14 100 22 100 12/13/19 09:00 107 21 133/63 (86) 100 12/13/19 08:30 98.8 108 24 127/63 (84) 100 12/13/19 08:00 110 24 122/62 (82) 100 12/13/19 08:00 Mechanical Ventilator 12/13/19 08:00 100 12/13/19 08:00 105 12/13/19 07:30 98.3 105 19 125/63 (83) 99 12/13/19 07:00 101 23 100 12/13/19 07:00 24 Mechanical Ventilator 100 12/13/19 07:00 116/58 12/13/19 07:00 100 24 116/58 (77) 99 12/13/19 06:30 98 24 126/63 (84) 99 12/13/19 06:00 24 Mechanical Ventilator 100 12/13/19 06:00 117/59 12/13/19 06:00 97 24 117/59 (78) 99 12/13/19 05:30 96 24 124/64 (84) 99 12/13/19 05:00 25 Mechanical Ventilator 100 12/13/19 05:00 117/59 12/13/19 05:00 98 25 122/62 (82) 99 12/13/19 04:45 101 26 100 12/13/19 04:30 99 23 125/59 (81) 98 12/13/19 04:00 98.1 100 24 124/62 (82) 98 12/13/19 04:00 101 12/13/19 04:00 24 Mechanical Ventilator 40 12/13/19 04:00 124/63 12/13/19 04:00 24 Mechanical Ventilator 100 12/13/19 04:00 100 12/13/19 04:00 Mechanical Ventilator 12/13/19 03:30 101 20 118/56 (76) 96 12/13/19 03:00 101 23 142/67 (92) 99 12/13/19 03:00 142/67 12/13/19 03:00 23 Mechanical Ventilator 100 12/13/19 02:30 101 22 124/64 (84) 99 12/13/19 02:30 99 26 100 12/13/19 02:00 125/62 12/13/19 02:00 24 Mechanical Ventilator 100 12/13/19 02:00 98 24 125/62 (83) 99 12/13/19 01:30 96 24 119/59 (79) 99 12/13/19 01:00 98 22 118/62 (80) 99 12/13/19 01:00 118/62 12/13/19 01:00 22 Mechanical Ventilator 100 12/13/19 00:45 98 24 118/62 (80) 99 12/13/19 00:30 101 24 118/63 (81) 99 12/13/19 00:00 103 12/13/19 00:00 114/60 12/13/19 00:00 27 Mechanical Ventilator 100 12/13/19 00:00 99.1 105 27 114/60 (78) 99 12/13/19 00:00 Mechanical Ventilator 12/12/19 23:30 102 23 116/63 (80) 99 12/12/19 23:00 118/61 12/12/19 23:00 26 Mechanical Ventilator 100 12/12/19 23:00 100 26 118/61 (80) 99 12/12/19 22:32 104 28 100 12/12/19 22:30 100 26 116/57 (76) 99 12/12/19 22:15 21 Mechanical Ventilator 100 12/12/19 22:00 107/58 12/12/19 22:00 25 Mechanical Ventilator 100 12/12/19 22:00 105 23 107/58 (74) 99 12/12/19 21:30 109 26 109/58 (75) 99 12/12/19 21:00 106 26 110/59 (76) 100 12/12/19 21:00 110/59 12/12/19 21:00 26 Mechanical Ventilator 100 12/12/19 20:30 104 0 113/64 (80) 100 12/12/19 20:00 98.1 104 5 98/62 (74) 99 12/12/19 20:00 Mechanical Ventilator 12/12/19 20:00 103 12/12/19 20:00 98/62 12/12/19 20:00 14 Mechanical Ventilator 100 12/12/19 20:00 100 12/12/19 19:24 105 30 100 12/12/19 19:00 112 6 96/55 (69) 97 12/12/19 19:00 96/55 12/12/19 19:00 13 Mechanical Ventilator 100 12/12/19 18:30 108 11 102/59 (73) 97 12/12/19 18:00 107 8 110/66 (81) 96 12/12/19 18:00 Mechanical Ventilator 12/12/19 17:00 Mechanical Ventilator 12/12/19 17:00 107 17 86/72 (77) 96 12/12/19 16:24 117 17 105/53 (70) 91 12/12/19 16:04 100 12/12/19 16:00 121 24 103/54 (70) 80 12/12/19 16:00 Mechanical Ventilator 12/12/19 16:00 100 12/12/19 16:00 113 12/12/19 16:00 Mechanical Ventilator 12/12/19 15:00 Mechanical Ventilator 12/12/19 15:00 97.3 116 20 112/55 (74) 85 Intake and Output 12/12/19 12/13/19 19:00 07:00 Intake Total 807.98 ml 1426.17 ml Output Total 130 ml 3150 ml Balance 677.98 ml -1723.83 ml Free Water 120 ml IV Total 562.98 ml 886.17 ml Tube Feeding 245 ml 420 ml Output Urine Total 0 ml 0 ml Stool Total 130 ml 150 ml Hemodialysis UF 3000 ml Laboratory Tests 12/13/19 03:26: White Blood Count 23.9*H, Red Blood Count 3.56L, Hemoglobin 10.7L, Hematocrit 32.9L, Mean Corpuscular Volume 92, Mean Corpuscular Hemoglobin 30.0, Mean Corpuscular Hemoglobin Concent 32.5, Red Cell Distribution Width 13.5, Platelet Count 146L, Mean Platelet Volume 9.6, Neutrophils (%) (Auto) , Lymphocytes (%) ( Auto) , Monocytes (%) (Auto) , Eosinophils (%) (Auto) , Basophils (%) (Auto) , Differential Total Cells Counted 100, Neutrophils % (Manual) 89H, Lymphocytes % (Manual) 5L, Monocytes % (Manual) 5, Eosinophils % (Manual) 0, Basophils % ( Manual) 0, Metamyelocytes % 1H, Band Neutrophils 0, Platelet Estimate DecreasedL , Platelet Morphology Normal, Sodium Level 142, Potassium Level 3.8, Chloride Level 101, Carbon Dioxide Level 34H, Anion Gap 8, Blood Urea Nitrogen 46H, Creatinine 5.0H, Estimat Glomerular Filtration Rate 12.0, Glucose Level 131H, Calcium Level 8.6, Total Bilirubin 1.5H, Direct Bilirubin 1.0H, Aspartate Amino Transf (AST/SGOT) 54H, Alanine Aminotransferase (ALT/SGPT) 127H, Alkaline Phosphatase 186H, Total Protein 5.9L, Albumin 2.5L, Globulin 3.4, Albumin/ Globulin Ratio 0.7L 12/13/19 10:50: Random Vancomycin Level 13.4 12/13/19 11:06: Arterial Blood pH 7.003*L, Arterial Blood Partial Pressure CO2 149.1*H, Arterial Blood Partial Pressure O2 146.8H, Arterial Blood HCO3 36.2H, Arterial Blood Oxygen Saturation 98.2, Arterial Blood Base Excess 1.4, Melecio Test Positive Height (Feet): 5 Height (Inches): 6.00 Weight (Pounds): 168 Objective General Appearance: intubated, OG tube in place, in prone position Cardiovascular: Sinus tach on tele Respiratory/Chest: ETT in place, equal rise in lungs b/l Abdomen: non distended Ext: no edema noted Theodore Aguayo M.D. December 13, 2019 14:55
--- NOTE | 2019-12-13 16:00 | NUR ---
NURSE NOTES: MEDICATION ADMINISTRATION COMPLETE PER MD ORDER. PT NOW SUPINE. SUCTION PROVIDED. NOTED BILATERAL OCULAR SWELLING, EDEMA OF LIPS. ONT APPLIED. [id number]. COOLING BLANKET OFF TEMPORALLY. WILL CONTINUE TO MONITOR PT.
--- NOTE | 2019-12-13 20:08 | NUR ---
HAND-OFF: Report given to HELEN Solano PT IN NO ACUTE DISTRESS. ENDORSED TURNING ON COOLING BLANKET.
--- NOTE | 2019-12-13 20:11 | NUR ---
NURSE NOTES: SBAR received from Alyson LACKEY. Patient is currently orally intubated AC 20, 500, 100% FiO2 and peep of 10. NGT nepro at 35ml/hr. Rectal tube noted, liquid stool. R fem Bism[place] cath noted with pigtail, L wrist 20G intact and patent. Vitals are stable. Isolation noted. Levophed, fentanyl infusing. RASS score of -2 at this time.
[2019-12-13] MEDS: Dyna-Hex 2% Top Sol 2oz TOPIC SCH (20:48)
--- NOTE | 2019-12-13 22:00 | NUR ---
NURSE NOTES: Dialysis nurse at bedside starting to do HD on patient. Vitals remains stable, afebrile at this time.
[2019-12-14] VITALS (64 sets, daily range): BP systolic 81–126; BP diastolic 42–67
--- NOTE | 2019-12-14 01:09 | NUR ---
NURSE NOTES: Patient still receiving dialysis. Blood pressure remains stable, NAD at this time. HR is NSR. RASS remains at -2. NAD at this time. Will continue to monitor.
[2019-12-14] MEDS: Norepinephrine Bitartrate 16 MG in D5W 500ml 550 ML IV SCH (01:25)
--- NOTE | 2019-12-14 02:00 | NUR ---
NURSE NOTES: HD complete. 3000ml removed. Patient tolerated dialysis well. Vitals remains stable. Patient suctioned.
--- NOTE | 2019-12-14 04:00 | NUR ---
NURSE NOTES: Am care performed. Blood drawn and sent to lab. Patient was proned at this time with 2 RT's and 2 RN's. Patient tolerated proning well, no issue during proning. Patients Increased fentanyl to 200mcg. Pressors slowly being titrated down, patients blood pressure is tolerating well. Oral care performed. Will continue to monitor.
--- NOTE | 2019-12-14 07:00 | NUR ---
NURSE NOTES: Pt received from DARYA Edwards. Pt is sedated, opens eyes when called by name for 4 sec, unable to follow commands, pupils are equal and round 3 mm bilat with sluggish light rxn. Pt noted in ST to air sampling and monitoring. Bilat radial and dorsalis pedis pulses 2+ bilaterally. Non-pitting pitting edema noted to both hands. Pt is mechanically intubated with 8.0 ETT noted 24 cm at the lip with the following settings: AC 20, TV 500, FiO2 100% Peep 10. All lung lobes diminished upon posterior auscultation- pt in prone position. Left nares NGT noted running Nepro at 35 cc/hr. Unable to auscultate bowel sounds at this time due to prone positioning. Rectal tube noted draining dark brown/green, liquid stool. Pt has a barnes- no urine output noted. Skin alterations noted. Pt has a LW 20g IV running NS TKO at 5 cc/hr and right femoral line with pigtail running fentanyl at 200 mcg/hr and levophed at 4 mcg/min. Bed is in lowest position, alarm on, side rails up x 3, call light within reach. No acute distress noted. Will continue with plan of care.
--- NOTE | 2019-12-14 07:00 | NUR ---
RESPIRATORY NOTE: Received pt on AC [id number]%FiO2-peep 10. Pt is intubated with ETT 8.0@24cm lip line, secured by anchor fast. No SOB or resp distress noted. Pt on prone position. Alarms are set and audible, vent is plugged into the red outlet, ambu bag is at bedside. Will continue to monitor.
--- NOTE | 2019-12-14 07:27 | General Progress Note ---
Assessment/Plan Problem List: (1) Elevated LFTs ICD Codes: R79.89 - Other specified abnormal findings of blood chemistry SNOMED: 431413306, 003302815 (2) HTN (hypertension) ICD Codes: I10 - Essential (primary) hypertension SNOMED: 18322211 (3) Suspected COVID-19 virus infection ICD Codes: R68.89 - Other general symptoms and signs SNOMED: 665420026 (4) Pneumonia ICD Codes: J18.9 - Pneumonia, unspecified organism SNOMED: 465874815 (5) Respiratory distress ICD Codes: R06.03 - Acute respiratory distress SNOMED: 435647590 (6) Pneumomediastinum ICD Codes: J98.2 - Interstitial emphysema SNOMED: 68792388 (7) COVID-19 ICD Codes: U07.1 - COVID-19 SNOMED: 352622848 (8) Hypotension ICD Codes: I95.9 - Hypotension, unspecified SNOMED: 24124080 Status: unchanged Assessment/Plan: NGTF rectal tube in place elevated LFTS most likely due to shock liver>>> improving repeat labs in am hepatitis panel>>>Neg abd us when off of isolation fu nephrology recent labs and notes reviewed D/W the nurse Subjective ROS Limited/Unobtainable: No Allergies: Coded Allergies: No Known Allergies (Unverified , 11/29/19) Objective Last 24 Hour Vital Signs Date Time Temp Pulse Resp B/P (MAP) Pulse Ox O2 Delivery O2 Flow Rate FiO2 12/14/19 06:30 99 14 96/46 (63) 99 12/14/19 06:00 99 13 101/47 (65) 99 12/14/19 06:00 20 Mechanical Ventilator 100 12/14/19 06:00 96/46 12/14/19 05:30 99 20 104/54 (71) 99 12/14/19 05:00 97 20 108/52 (70) 100 12/14/19 05:00 20 Mechanical Ventilator 100 12/14/19 05:00 104/57 12/14/19 04:31 108 20 100 12/14/19 04:30 94 17 104/51 (68) 100 12/14/19 04:00 86 12/14/19 04:00 98.1 90 20 101/46 (64) 100 12/14/19 04:00 Mechanical Ventilator 12/14/19 04:00 20 Mechanical Ventilator 100 12/14/19 04:00 119/55 12/14/19 04:00 100 12/14/19 03:30 85 21 119/55 (76) 100 12/14/19 03:10 106 20 100 12/14/19 03:00 20 Mechanical Ventilator 100 12/14/19 03:00 108/59 12/14/19 03:00 99 18 121/63 (82) 100 12/14/19 02:30 99 20 126/57 (80) 100 12/14/19 02:00 102 21 108/59 (75) 100 12/14/19 02:00 20 Mechanical Ventilator 100 12/14/19 02:00 126/66 12/14/19 01:30 93 22 126/66 (86) 100 12/14/19 01:25 101/52 12/14/19 01:00 99 21 109/54 (72) 100 12/14/19 01:00 20 Mechanical Ventilator 100 12/14/19 01:00 101/52 12/14/19 00:45 109 20 100 12/14/19 00:30 98 20 100/59 (73) 100 12/14/19 00:00 99.1 98 22 102/57 (72) 100 12/14/19 00:00 20 Mechanical Ventilator 100 12/14/19 00:00 99/60 12/14/19 00:00 100 12/14/19 00:00 Mechanical Ventilator 12/14/19 00:00 99 12/13/19 23:52 97 21 96/56 (69) 100 12/13/19 23:30 96 21 113/60 (77) 100 12/13/19 23:05 107 20 100 12/13/19 23:00 99 19 114/55 (74) 100 12/13/19 23:00 20 Mechanical Ventilator 100 12/13/19 23:00 102/56 12/13/19 22:45 99 19 114/55 (74) 100 12/13/19 22:30 98 18 114/59 (77) 100 12/13/19 22:00 94 18 99/50 (66) 100 12/13/19 22:00 20 Mechanical Ventilator 100 12/13/19 22:00 99/50 12/13/19 21:45 95 20 121/58 (79) 100 12/13/19 21:41 97 20 112/57 (75) 100 12/13/19 21:30 96 21 110/55 (73) 100 12/13/19 21:20 Mechanical Ventilator 100 12/13/19 21:15 95 21 99/47 (64) 100 12/13/19 21:00 20 Mechanical Ventilator 100 12/13/19 21:00 99/48 12/13/19 21:00 95 20 99/48 (65) 100 12/13/19 20:45 98 20 101/48 (65) 100 12/13/19 20:33 105 20 100 12/13/19 20:30 97 20 97/49 (65) 100 12/13/19 20:15 97 20 102/50 (67) 100 12/13/19 20:00 98 12/13/19 20:00 20 Mechanical Ventilator 100 12/13/19 20:00 104/49 12/13/19 20:00 100 12/13/19 20:00 Mechanical Ventilator 12/13/19 20:00 96.5 96 20 104/49 (67) 100 12/13/19 19:45 97 20 107/50 (69) 100 12/13/19 19:30 96 21 107/51 (69) 100 12/13/19 19:00 20 Mechanical Ventilator 100 12/13/19 19:00 106/51 12/13/19 19:00 95 20 106/51 (69) 100 12/13/19 18:35 108 21 100 12/13/19 18:30 96 21 110/53 (72) 100 12/13/19 18:00 95 20 110/57 (74) 100 12/13/19 17:30 94 20 110/54 (72) 100 12/13/19 17:00 93 20 114/56 (75) 100 12/13/19 17:00 Mechanical Ventilator 12/13/19 16:30 92 19 111/52 (71) 100 12/13/19 16:24 102 22 100 12/13/19 16:00 100 12/13/19 16:00 103 12/13/19 16:00 96.9 104 21 119/54 (75) 100 12/13/19 16:00 Mechanical Ventilator 12/13/19 16:00 Mechanical Ventilator 12/13/19 15:30 105 22 121/57 (78) 100 12/13/19 15:10 105 22 100 12/13/19 15:00 106 23 120/60 (80) 100 12/13/19 14:30 105 21 147/68 (94) 100 12/13/19 14:00 110 22 110/52 (71) 100 12/13/19 14:00 Mechanical Ventilator 12/13/19 13:30 112 19 116/59 (78) 100 12/13/19 13:09 116 25 100 12/13/19 13:00 117 15 108/57 (74) 100 12/13/19 12:30 115 18 112/55 (74) 100 12/13/19 12:00 Mechanical Ventilator 12/13/19 12:00 100 12/13/19 12:00 99.4 111 27 114/53 (73) 100 12/13/19 12:00 112 12/13/19 11:30 107 25 122/61 (81) 100 12/13/19 11:15 104 21 100 12/13/19 11:00 105 14 117/65 (82) 100 12/13/19 10:30 106 25 128/59 (82) 100 12/13/19 10:00 105 16 127/65 (85) 100 12/13/19 09:30 106 18 128/66 (86) 100 12/13/19 09:14 100 22 100 12/13/19 09:00 107 21 133/63 (86) 100 12/13/19 08:30 98.8 108 24 127/63 (84) 100 12/13/19 08:00 110 24 122/62 (82) 100 12/13/19 08:00 Mechanical Ventilator 12/13/19 08:00 100 12/13/19 08:00 105 12/13/19 07:30 98.3 105 19 125/63 (83) 99 Intake and Output 12/13/19 12/14/19 19:00 07:00 Intake Total 1168.89 ml 949.35 ml Output Total 100 ml 3300 ml Balance 1068.89 ml -2350.65 ml IV Total 688.89 ml 564.35 ml Tube Feeding 420 ml 385 ml Other 60 ml Output Urine Total 0 ml 0 ml Stool Total 100 ml Hemodialysis UF 3300 ml Laboratory Tests 12/13/19 10:50: Random Vancomycin Level 13.4 12/13/19 11:06: Arterial Blood pH 7.003*L, Arterial Blood Partial Pressure CO2 149.1*H, Arterial Blood Partial Pressure O2 146.8H, Arterial Blood HCO3 36.2H, Arterial Blood Oxygen Saturation 98.2, Arterial Blood Base Excess 1.4, Melecio Test Positive 12/14/19 04:00: White Blood Count [Pending], Red Blood Count [Pending], Hemoglobin [Pending], Hematocrit [Pending], Mean Corpuscular Volume [Pending], Mean Corpuscular Hemoglobin [Pending], Mean Corpuscular Hemoglobin Concent [Pending], Red Cell Distribution Width [Pending], Platelet Count [Pending], Mean Platelet Volume [ Pending], Neutrophils (%) (Auto) [Pending], Lymphocytes (%) (Auto) [Pending], Monocytes (%) (Auto) [Pending], Eosinophils (%) (Auto) [Pending], Basophils (%) (Auto) [Pending], Sodium Level [Pending], Potassium Level [Pending], Chloride Level [Pending], Carbon Dioxide Level [Pending], Blood Urea Nitrogen [Pending], Creatinine [Pending], Estimat Glomerular Filtration Rate [Pending], Glucose Level [Pending], Calcium Level [Pending], Total Bilirubin [Pending], Aspartate Amino Transf (AST/SGOT) [Pending], Alanine Aminotransferase (ALT/SGPT) [Pending] , Alkaline Phosphatase [Pending], Total Protein [Pending], Albumin [Pending], Globulin [Pending] Height (Feet): 5 Height (Inches): 6.00 Weight (Pounds): 160 General Appearance: lethargic EENT: normal ENT inspection Neck: supple Cardiovascular: normal rate Respiratory/Chest: decreased breath sounds Abdomen: normal bowel sounds, non tender, soft Extremities: non-tender Jãoo Rdz MD December 14, 2019 07:27
[2019-12-14 08:10] LABS: ALANINE AMINOTRANSFERASE 98 U/L (12-78); ALBUMIN 3.1 G/DL (3.4-5.0); ALKALINE PHOSPHATASE 226 U/L (46-116); ANION GAP 8 mmol/L (5-15); ASPARTATE AMINO TRANSFERASE 62 U/L (15-37); BILIRUBIN,TOTAL 1.5 MG/DL (0.2-1.0); BLOOD UREA NITROGEN 35 mg/dL (7-18); CALCIUM 8.9 MG/DL (8.5-10.1); CARBON DIOXIDE 34 MMOL/L (21-32); CHLORIDE 97 MMOL/L (98-107); CREATININE 3.8 MG/DL (0.55-1.30); POTASSIUM 4.3 MMOL/L (3.5-5.1); SODIUM 139 MMOL/L (136-145)
[2019-12-14 08:14] LABS: BILIRUBIN,DIRECT 1.1 MG/DL (0.0-0.3)
[2019-12-14] MEDS: Vasopressin 100 UNITS in NS 95 ML IV SCH (08:29)
[2019-12-14] MEDS: Midodrine 10mg tab ORAL SCH ×3 (08:30→17:35)
[2019-12-14] MEDS: Pantoprazole Inj IVP SCH (08:30)
[2019-12-14 08:42] LABS: HEMATOCRIT 33.3 % (42.0-52.0); HEMOGLOBIN 10.7 G/DL (14.2-18.0); MEAN CORPUSCULAR VOLUME 93 FL (80-99); PLATELET COUNT 176 K/UL (150-450); RED BLOOD COUNT 3.58 M/UL (4.70-6.10)
--- NOTE | 2019-12-14 09:01 | Pulmonology Progress Note ---
Assessment/Plan Assessment/Plan IMPRESSION: 1. Bilateral pneumonia. 2. Positive COVID-19. 3. Respiratory failure. DISCUSSION: Intubated On AC 20; FiO2 100; PEEP 10; SaO2 99% Abd Xray shows mediastinal PTX Recent CXR 12/06; no PTX or pneumomediastinum seen Repeat CXR today again shows mediastinal PTX Continue proning On Fentanyl due to high triglycerides Continue proning as heart rate tolerates Saturations are better Grave prognosis I will follow carefully. S/p HD S/p Actemra Blood CS ? contaminant Needs ongoing HD; more ultrafiltration Urine CS negative Sushil Cortes M.D. Subjective ROS Limited/Unobtainable: No Interval Events: Intubated ;proning continuing Constitutional: Reports: fatigue, other HEENT: Repors: no symptoms Respiratory: Reports: no symptoms Cardiovascular: Reports: no symptoms Gastrointestinal/Abdominal: Denies: nausea, vomiting, diarrhea Genitourinary: Reports: no symptoms Psychiatric: Reports: other Skin: Denies: rash Musculoskeletal: Reports: other Allergies: Coded Allergies: No Known Allergies (Unverified , 11/29/19) All Systems: reviewed and negative except above Objective Last 24 Hour Vital Signs Date Time Temp Pulse Resp B/P (MAP) Pulse Ox O2 Delivery O2 Flow Rate FiO2 12/14/19 07:30 99 22 100 12/14/19 06:30 99 14 96/46 (63) 99 12/14/19 06:00 99 13 101/47 (65) 99 12/14/19 06:00 20 Mechanical Ventilator 100 12/14/19 06:00 96/46 12/14/19 05:30 99 20 104/54 (71) 99 12/14/19 05:00 97 20 108/52 (70) 100 12/14/19 05:00 20 Mechanical Ventilator 100 12/14/19 05:00 104/57 12/14/19 04:31 108 20 100 12/14/19 04:30 94 17 104/51 (68) 100 12/14/19 04:00 86 12/14/19 04:00 98.1 90 20 101/46 (64) 100 12/14/19 04:00 Mechanical Ventilator 12/14/19 04:00 20 Mechanical Ventilator 100 12/14/19 04:00 119/55 12/14/19 04:00 100 12/14/19 03:30 85 21 119/55 (76) 100 12/14/19 03:10 106 20 100 12/14/19 03:00 20 Mechanical Ventilator 100 12/14/19 03:00 108/59 12/14/19 03:00 99 18 121/63 (82) 100 12/14/19 02:30 99 20 126/57 (80) 100 12/14/19 02:00 102 21 108/59 (75) 100 12/14/19 02:00 20 Mechanical Ventilator 100 12/14/19 02:00 126/66 12/14/19 01:30 93 22 126/66 (86) 100 12/14/19 01:25 101/52 12/14/19 01:00 99 21 109/54 (72) 100 12/14/19 01:00 20 Mechanical Ventilator 100 12/14/19 01:00 101/52 12/14/19 00:45 109 20 100 12/14/19 00:30 98 20 100/59 (73) 100 12/14/19 00:00 99.1 98 22 102/57 (72) 100 12/14/19 00:00 20 Mechanical Ventilator 100 12/14/19 00:00 99/60 12/14/19 00:00 100 12/14/19 00:00 Mechanical Ventilator 12/14/19 00:00 99 12/13/19 23:52 97 21 96/56 (69) 100 12/13/19 23:30 96 21 113/60 (77) 100 12/13/19 23:05 107 20 100 12/13/19 23:00 99 19 114/55 (74) 100 12/13/19 23:00 20 Mechanical Ventilator 100 12/13/19 23:00 102/56 12/13/19 22:45 99 19 114/55 (74) 100 12/13/19 22:30 98 18 114/59 (77) 100 12/13/19 22:00 94 18 99/50 (66) 100 12/13/19 22:00 20 Mechanical Ventilator 100 12/13/19 22:00 99/50 5/1/20 21:45 95 20 121/58 (79) 100 12/13/19 21:41 97 20 112/57 (75) 100 12/13/19 21:30 96 21 110/55 (73) 100 12/13/19 21:20 Mechanical Ventilator 100 12/13/19 21:15 95 21 99/47 (64) 100 12/13/19 21:00 20 Mechanical Ventilator 100 12/13/19 21:00 99/48 12/13/19 21:00 95 20 99/48 (65) 100 12/13/19 20:45 98 20 101/48 (65) 100 12/13/19 20:33 105 20 100 12/13/19 20:30 97 20 97/49 (65) 100 12/13/19 20:15 97 20 102/50 (67) 100 12/13/19 20:00 98 12/13/19 20:00 20 Mechanical Ventilator 100 12/13/19 20:00 104/49 12/13/19 20:00 100 12/13/19 20:00 Mechanical Ventilator 12/13/19 20:00 96.5 96 20 104/49 (67) 100 12/13/19 19:45 97 20 107/50 (69) 100 12/13/19 19:30 96 21 107/51 (69) 100 12/13/19 19:00 20 Mechanical Ventilator 100 12/13/19 19:00 106/51 12/13/19 19:00 95 20 106/51 (69) 100 12/13/19 18:35 108 21 100 12/13/19 18:30 96 21 110/53 (72) 100 12/13/19 18:00 95 20 110/57 (74) 100 12/13/19 17:30 94 20 110/54 (72) 100 12/13/19 17:00 93 20 114/56 (75) 100 12/13/19 17:00 Mechanical Ventilator 12/13/19 16:30 92 19 111/52 (71) 100 12/13/19 16:24 102 22 100 12/13/19 16:00 100 12/13/19 16:00 103 12/13/19 16:00 96.9 104 21 119/54 (75) 100 12/13/19 16:00 Mechanical Ventilator 12/13/19 16:00 Mechanical Ventilator 12/13/19 15:30 105 22 121/57 (78) 100 12/13/19 15:10 105 22 100 12/13/19 15:00 106 23 120/60 (80) 100 12/13/19 14:30 105 21 147/68 (94) 100 12/13/19 14:00 110 22 110/52 (71) 100 12/13/19 14:00 Mechanical Ventilator 12/13/19 13:30 112 19 116/59 (78) 100 12/13/19 13:09 116 25 100 12/13/19 13:00 117 15 108/57 (74) 100 12/13/19 12:30 115 18 112/55 (74) 100 12/13/19 12:00 Mechanical Ventilator 12/13/19 12:00 100 12/13/19 12:00 99.4 111 27 114/53 (73) 100 12/13/19 12:00 112 12/13/19 11:30 107 25 122/61 (81) 100 12/13/19 11:15 104 21 100 12/13/19 11:00 105 14 117/65 (82) 100 12/13/19 10:30 106 25 128/59 (82) 100 12/13/19 10:00 105 16 127/65 (85) 100 12/13/19 09:30 106 18 128/66 (86) 100 12/13/19 09:14 100 22 100 Intake and Output 12/13/19 12/14/19 19:00 07:00 Intake Total 1168.89 ml 949.35 ml Output Total 100 ml 3300 ml Balance 1068.89 ml -2350.65 ml IV Total 688.89 ml 564.35 ml Tube Feeding 420 ml 385 ml Other 60 ml Output Urine Total 0 ml 0 ml Stool Total 100 ml Hemodialysis UF 3300 ml General Appearance: other HEENT: normocephalic, atraumatic, no JVD, other Respiratory/Chest: chest wall non-tender, lungs clear Cardiovascular: normal peripheral pulses, normal rate Abdomen: normal bowel sounds, soft, non tender, no organomegaly, non distended Genitourinary: other Extremities: no cyanosis Skin: no rash Neurologic/Psychiatric: other Lymphatic: no neck adenopathy Musculoskeletal: no effusion Microbiology Date/Time Source Procedure Growth Status 12/11/19 22:50 Sputum Gram Stain - Final Complete 12/11/19 22:50 Sputum Sputum Culture - Final NORMAL UPPER RESPIRATORY ALISIA AT 48 ... Complete 12/11/19 22:50 Stool Clostridium difficile Toxin Assay - Final Complete 12/11/19 20:33 Indwelling Cath Urine Culture - Final NO GROWTH AFTER 48 HOURS Complete Laboratory Tests 12/13/19 10:50: Random Vancomycin Level 13.4 12/13/19 11:06: Arterial Blood pH 7.003*L, Arterial Blood Partial Pressure CO2 149.1*H, Arterial Blood Partial Pressure O2 146.8H, Arterial Blood HCO3 36.2H, Arterial Blood Oxygen Saturation 98.2, Arterial Blood Base Excess 1.4, Melecio Test Positive 12/14/19 04:00: White Blood Count 25.0*H, Red Blood Count 3.58L, Hemoglobin 10.7L, Hematocrit 33.3L, Mean Corpuscular Volume 93, Mean Corpuscular Hemoglobin 30.0, Mean Corpuscular Hemoglobin Concent 32.2, Red Cell Distribution Width 14.0, Platelet Count 176, Mean Platelet Volume 9.1, Neutrophils (%) (Auto) , Lymphocytes (%) ( Auto) , Monocytes (%) (Auto) , Eosinophils (%) (Auto) , Basophils (%) (Auto) , Neutrophils % (Manual) [Pending], Lymphocytes % (Manual) [Pending], Platelet Estimate [Pending], Platelet Morphology [Pending], Sodium Level 139, Potassium Level 4.3, Chloride Level 97L, Carbon Dioxide Level 34H, Anion Gap 8, Blood Urea Nitrogen 35H, Creatinine 3.8H, Estimat Glomerular Filtration Rate 16.4, Glucose Level 147H, Calcium Level 8.9, Total Bilirubin 1.5H, Direct Bilirubin 1.1H, Aspartate Amino Transf (AST/SGOT) 62H, Alanine Aminotransferase (ALT/SGPT ) 98H, Alkaline Phosphatase 226H, Total Protein 6.2L, Albumin 3.1L, Globulin 3.1 , Albumin/Globulin Ratio 1.0 Current Medications Medications (Trade) Dose Ordered Sig/Vicki Route PRN Reason Start Time Stop Time Status Last Admin Dose Admin Acetaminophen (Tylenol) 650 mg Q4H PRN NG Temp >100.5 12/06/19 14:15 01/05/20 14:14 12/10/19 04:34 Acetaminophen (Tylenol) 650 mg Q4H PRN RECTAL Mild Pain (Pain Scale 1-3) 12/04/19 11:45 01/03/20 11:44 12/06/19 19:17 Cefepime HCl 500 mg/Dextrose 50 ml @ 100 mls/hr Q24HRS IV 12/10/19 23:00 12/17/19 22:59 12/14/19 00:09 Chlorhexidine Gluconate (Arely-Hex 2%) 1 applic DAILY@2000 TOPIC 12/05/19 20:00 03/04/20 19:59 12/13/19 20:48 Dextrose (Dextrose 50%) 25 ml Q30M PRN IV Hypoglycemia 11/29/19 14:15 02/27/20 14:14 Dextrose (Dextrose 50%) 50 ml Q30M PRN IV Hypoglycemia 11/29/19 14:15 02/27/20 14:14 Fentanyl Citrate 2500 mcg/Sodium Chloride 250 ml @ 0 mls/hr Q24H IV 12/13/19 00:00 12/20/19 00:00 12/13/19 21:20 Hydralazine HCl (Apresoline) 10 mg Q4H PRN IV For High Blood Pressure 11/29/19 15:15 02/27/20 15:14 Loperamide HCl (Imodium) 2 mg Q6H PRN NG Diarrhea 12/12/19 12:45 01/11/20 12:44 Metronidazole 100 ml @ 100 mls/hr Q8HR IVPB 12/10/19 23:00 12/17/19 22:59 12/14/19 05:47 Midodrine (Pro-Amatine) 10 mg THREE TIMES A DAY ORAL 12/12/19 13:00 03/11/20 12:59 12/14/19 08:30 Norepinephrine Bitartrate 16 mg/ Dextrose 566 ml @ 0 mls/hr Q24H IV 12/06/19 09:00 01/05/20 08:59 12/14/19 01:25 Ondansetron HCl (Zofran) 4 mg Q6H PRN IVP Nausea & Vomiting 11/29/19 14:15 12/29/19 14:14 Pantoprazole (Protonix) 40 mg DAILY IVP 11/30/19 12:15 12/30/19 12:14 12/14/19 08:30 Potassium Chloride (K-Dur) 40 meq TWICE A DAY ORAL 12/11/19 09:30 03/10/20 09:29 12/14/19 08:31 Vancomycin HCl (Vanco rx to dose) 1 ea DAILY PRN MISC Per rx protocol 12/08/19 19:30 01/07/20 19:29 Vasopressin 100 units/Sodium Chloride 100 ml @ 0 mls/hr Q24H IV 12/06/19 09:00 01/05/20 08:59 12/06/19 09:03 Sushil Cortes MD December 14, 2019 09:01
--- NOTE | 2019-12-14 09:39 | General Progress Note ---
Assessment/Plan Status: unchanged Assessment/Plan: 59-year-old male with PMH of HTN presents with acute respiratory distress. #Acute Hypoxic Respiratory Failure s/p intubation #Severe sepsis #COVID19 positive #CAP #elevated d-dimer #Fevers - improved -Appreciate ICU level of care -s/p Intubation 12/03 -vent management per Pulm/ICU/CCM team -cont. droplet & isolation precautions -Transaminitis/d-dimer/fluctuating fevers likely reactive/ 2/2 COVID -cont. to monitor LFTs -sedation per pulm/ICU -s/p hydroxychloroquine -s/p actrema -prone position per Pulm -Pulm following, recs appreciated -ID, Dr. Rodriguez, following: Merrem, Vanc -cont. current management per ID/Pulm -ABG per pulm #loose stools -c diff negative -d/c PO vanco -immodium PRN #Pneumomediastinum #Subcutaneous emphysema -seen on abd XR -pt too high risk for bedside thoracostomy -d/w general sx and pulm/ICU #ALBARO #Hypernatremia #Hyperkalemia -likely 2/2 to above, COVID -kayexalate, insulin, D5 for hyperkalemia -cont. to montior -12/04: femoral HD cath placed -d/w Nephro, Dr. Soriano: HD per nephro #Transaminitis #Shock Liver -improved -likely 2/2 to above/COVID -LFTs improving, ctm -abd us when off isolation -cont. NGT feeds -GI, Dr. Rdz, following, recs appreciated #Sinus Tachycardia 2/2 respiratory failure #HTN -hydralazine PRN -Cardio, , following: Echo after COVID negative DVT PPX: Lovenox Pt is at high risk of rapid decompensation and requires continued ICU level of care Prognosis grave/poor Time spent on encounter: 40 mins, 25 mins spent on coordination of care, reviewing tele monitor, discussed w/Nephdeni, RN. Time of note doesn't reflect time of encounter. Subjective Allergies: Coded Allergies: No Known Allergies (Unverified , 11/29/19) Subjective Follow up for acute hypoxic resp failure, COVID19 positive, intubation/sedated, multi-organ failure. Remains on pressure support, sedated. Plan for HD today. Pt remains intubated, unable to obtain ROS due to clinical picture. Objective Last 24 Hour Vital Signs Date Time Temp Pulse Resp B/P (MAP) Pulse Ox O2 Delivery O2 Flow Rate FiO2 12/14/19 08:50 99 22 100 12/14/19 07:30 99 22 100 12/14/19 06:30 99 14 96/46 (63) 99 12/14/19 06:00 99 13 101/47 (65) 99 12/14/19 06:00 20 Mechanical Ventilator 100 12/14/19 06:00 96/46 12/14/19 05:30 99 20 104/54 (71) 99 12/14/19 05:00 97 20 108/52 (70) 100 12/14/19 05:00 20 Mechanical Ventilator 100 12/14/19 05:00 104/57 12/14/19 04:31 108 20 100 12/14/19 04:30 94 17 104/51 (68) 100 12/14/19 04:00 86 12/14/19 04:00 98.1 90 20 101/46 (64) 100 12/14/19 04:00 Mechanical Ventilator 12/14/19 04:00 20 Mechanical Ventilator 100 12/14/19 04:00 119/55 12/14/19 04:00 100 12/14/19 03:30 85 21 119/55 (76) 100 12/14/19 03:10 106 20 100 12/14/19 03:00 20 Mechanical Ventilator 100 12/14/19 03:00 108/59 12/14/19 03:00 99 18 121/63 (82) 100 12/14/19 02:30 99 20 126/57 (80) 100 12/14/19 02:00 102 21 108/59 (75) 100 12/14/19 02:00 20 Mechanical Ventilator 100 12/14/19 02:00 126/66 12/14/19 01:30 93 22 126/66 (86) 100 12/14/19 01:25 101/52 12/14/19 01:00 99 21 109/54 (72) 100 12/14/19 01:00 20 Mechanical Ventilator 100 12/14/19 01:00 101/52 12/14/19 00:45 109 20 100 12/14/19 00:30 98 20 100/59 (73) 100 12/14/19 00:00 99.1 98 22 102/57 (72) 100 12/14/19 00:00 20 Mechanical Ventilator 100 12/14/19 00:00 99/60 12/14/19 00:00 100 12/14/19 00:00 Mechanical Ventilator 12/14/19 00:00 99 12/13/19 23:52 97 21 96/56 (69) 100 12/13/19 23:30 96 21 113/60 (77) 100 12/13/19 23:05 107 20 100 12/13/19 23:00 99 19 114/55 (74) 100 12/13/19 23:00 20 Mechanical Ventilator 100 12/13/19 23:00 102/56 12/13/19 22:45 99 19 114/55 (74) 100 12/13/19 22:30 98 18 114/59 (77) 100 12/13/19 22:00 94 18 99/50 (66) 100 12/13/19 22:00 20 Mechanical Ventilator 100 12/13/19 22:00 99/50 12/13/19 21:45 95 20 121/58 (79) 100 12/13/19 21:41 97 20 112/57 (75) 100 12/13/19 21:30 96 21 110/55 (73) 100 12/13/19 21:20 Mechanical Ventilator 100 12/13/19 21:15 95 21 99/47 (64) 100 12/13/19 21:00 20 Mechanical Ventilator 100 12/13/19 21:00 99/48 12/13/19 21:00 95 20 99/48 (65) 100 12/13/19 20:45 98 20 101/48 (65) 100 12/13/19 20:33 105 20 100 12/13/19 20:30 97 20 97/49 (65) 100 12/13/19 20:15 97 20 102/50 (67) 100 12/13/19 20:00 98 12/13/19 20:00 20 Mechanical Ventilator 100 12/13/19 20:00 104/49 12/13/19 20:00 100 12/13/19 20:00 Mechanical Ventilator 12/13/19 20:00 96.5 96 20 104/49 (67) 100 5/1/20 19:45 97 20 107/50 (69) 100 12/13/19 19:30 96 21 107/51 (69) 100 12/13/19 19:00 20 Mechanical Ventilator 100 12/13/19 19:00 106/51 12/13/19 19:00 95 20 106/51 (69) 100 12/13/19 18:35 108 21 100 12/13/19 18:30 96 21 110/53 (72) 100 12/13/19 18:00 95 20 110/57 (74) 100 12/13/19 17:30 94 20 110/54 (72) 100 12/13/19 17:00 93 20 114/56 (75) 100 12/13/19 17:00 Mechanical Ventilator 12/13/19 16:30 92 19 111/52 (71) 100 12/13/19 16:24 102 22 100 12/13/19 16:00 100 12/13/19 16:00 103 12/13/19 16:00 96.9 104 21 119/54 (75) 100 12/13/19 16:00 Mechanical Ventilator 12/13/19 16:00 Mechanical Ventilator 12/13/19 15:30 105 22 121/57 (78) 100 12/13/19 15:10 105 22 100 12/13/19 15:00 106 23 120/60 (80) 100 12/13/19 14:30 105 21 147/68 (94) 100 12/13/19 14:00 110 22 110/52 (71) 100 12/13/19 14:00 Mechanical Ventilator 12/13/19 13:30 112 19 116/59 (78) 100 12/13/19 13:09 116 25 100 12/13/19 13:00 117 15 108/57 (74) 100 12/13/19 12:30 115 18 112/55 (74) 100 12/13/19 12:00 Mechanical Ventilator 12/13/19 12:00 100 12/13/19 12:00 99.4 111 27 114/53 (73) 100 12/13/19 12:00 112 12/13/19 11:30 107 25 122/61 (81) 100 12/13/19 11:15 104 21 100 12/13/19 11:00 105 14 117/65 (82) 100 12/13/19 10:30 106 25 128/59 (82) 100 12/13/19 10:00 105 16 127/65 (85) 100 Intake and Output 12/13/19 12/14/19 18:59 06:59 Intake Total 1269.14 ml 1035.57 ml Output Total 100 ml 3300 ml Balance 1169.14 ml -2264.43 ml IV Total 789.14 ml 615.57 ml Tube Feeding 420 ml 420 ml Other 60 ml Output Urine Total 0 ml 0 ml Stool Total 100 ml Hemodialysis UF 3300 ml Laboratory Tests 12/13/19 10:50: Random Vancomycin Level 13.4 12/13/19 11:06: Arterial Blood pH 7.003*L, Arterial Blood Partial Pressure CO2 149.1*H, Arterial Blood Partial Pressure O2 146.8H, Arterial Blood HCO3 36.2H, Arterial Blood Oxygen Saturation 98.2, Arterial Blood Base Excess 1.4, Melecio Test Positive 12/14/19 04:00: White Blood Count 25.0*H, Red Blood Count 3.58L, Hemoglobin 10.7L, Hematocrit 33.3L, Mean Corpuscular Volume 93, Mean Corpuscular Hemoglobin 30.0, Mean Corpuscular Hemoglobin Concent 32.2, Red Cell Distribution Width 14.0, Platelet Count 176, Mean Platelet Volume 9.1, Neutrophils (%) (Auto) , Lymphocytes (%) ( Auto) , Monocytes (%) (Auto) , Eosinophils (%) (Auto) , Basophils (%) (Auto) , Neutrophils % (Manual) [Pending], Lymphocytes % (Manual) [Pending], Platelet Estimate [Pending], Platelet Morphology [Pending], Sodium Level 139, Potassium Level 4.3, Chloride Level 97L, Carbon Dioxide Level 34H, Anion Gap 8, Blood Urea Nitrogen 35H, Creatinine 3.8H, Estimat Glomerular Filtration Rate 16.4, Glucose Level 147H, Calcium Level 8.9, Total Bilirubin 1.5H, Direct Bilirubin 1.1H, Aspartate Amino Transf (AST/SGOT) 62H, Alanine Aminotransferase (ALT/SGPT ) 98H, Alkaline Phosphatase 226H, Total Protein 6.2L, Albumin 3.1L, Globulin 3.1 , Albumin/Globulin Ratio 1.0 12/14/19 08:50: Arterial Blood pH 7.146*L, Arterial Blood Partial Pressure CO2 101.2*H, Arterial Blood Partial Pressure O2 193.5H, Arterial Blood HCO3 34.1H, Arterial Blood Oxygen Saturation 98.4, Arterial Blood Base Excess 3.0H, Melecio Test Positive Height (Feet): 5 Height (Inches): 6.00 Weight (Pounds): 160 Objective General Appearance: intubated, OG tube in place, in prone position Cardiovascular: Sinus tach on tele Respiratory/Chest: ETT in place, equal rise in lungs b/l Abdomen: non distended Ext: no edema noted Theodore Aguayo M.D. December 14, 2019 09:39
--- NOTE | 2019-12-14 10:06 | Urology Progress Note ---
Assessment/Plan Status: unchanged Assessment/Plan: 1. Phimosis. 2. Retention. 3. Hematuria. 4. Pyuria. 5. Proteinuria. 6. Acute kidney injury. 7. Meatal stenosis. monitor clinically maintain barnes, placed 12/04 hand irrigate PRN monitor urine output and renal fxn consider renal imaging abx as ordered HD per nephrology f/u on last blood cx Subjective Allergies: Coded Allergies: No Known Allergies (Unverified , 11/29/19) Subjective remains on vent, still with minimal urine output, HD Objective Last 24 Hour Vital Signs Date Time Temp Pulse Resp B/P (MAP) Pulse Ox O2 Delivery O2 Flow Rate FiO2 12/14/19 08:50 99 22 100 12/14/19 07:30 99 22 100 12/14/19 06:30 99 14 96/46 (63) 99 12/14/19 06:00 99 13 101/47 (65) 99 12/14/19 06:00 20 Mechanical Ventilator 100 12/14/19 06:00 96/46 12/14/19 05:30 99 20 104/54 (71) 99 12/14/19 05:00 97 20 108/52 (70) 100 12/14/19 05:00 20 Mechanical Ventilator 100 12/14/19 05:00 104/57 12/14/19 04:31 108 20 100 12/14/19 04:30 94 17 104/51 (68) 100 12/14/19 04:00 86 12/14/19 04:00 98.1 90 20 101/46 (64) 100 12/14/19 04:00 Mechanical Ventilator 12/14/19 04:00 20 Mechanical Ventilator 100 12/14/19 04:00 119/55 12/14/19 04:00 100 12/14/19 03:30 85 21 119/55 (76) 100 12/14/19 03:10 106 20 100 12/14/19 03:00 20 Mechanical Ventilator 100 12/14/19 03:00 108/59 12/14/19 03:00 99 18 121/63 (82) 100 12/14/19 02:30 99 20 126/57 (80) 100 12/14/19 02:00 102 21 108/59 (75) 100 12/14/19 02:00 20 Mechanical Ventilator 100 12/14/19 02:00 126/66 12/14/19 01:30 93 22 126/66 (86) 100 12/14/19 01:25 101/52 12/14/19 01:00 99 21 109/54 (72) 100 12/14/19 01:00 20 Mechanical Ventilator 100 12/14/19 01:00 101/52 12/14/19 00:45 109 20 100 12/14/19 00:30 98 20 100/59 (73) 100 12/14/19 00:00 99.1 98 22 102/57 (72) 100 12/14/19 00:00 20 Mechanical Ventilator 100 12/14/19 00:00 99/60 12/14/19 00:00 100 12/14/19 00:00 Mechanical Ventilator 12/14/19 00:00 99 12/13/19 23:52 97 21 96/56 (69) 100 12/13/19 23:30 96 21 113/60 (77) 100 12/13/19 23:05 107 20 100 12/13/19 23:00 99 19 114/55 (74) 100 12/13/19 23:00 20 Mechanical Ventilator 100 12/13/19 23:00 102/56 12/13/19 22:45 99 19 114/55 (74) 100 12/13/19 22:30 98 18 114/59 (77) 100 12/13/19 22:00 94 18 99/50 (66) 100 12/13/19 22:00 20 Mechanical Ventilator 100 12/13/19 22:00 99/50 12/13/19 21:45 95 20 121/58 (79) 100 12/13/19 21:41 97 20 112/57 (75) 100 12/13/19 21:30 96 21 110/55 (73) 100 12/13/19 21:20 Mechanical Ventilator 100 12/13/19 21:15 95 21 99/47 (64) 100 12/13/19 21:00 20 Mechanical Ventilator 100 12/13/19 21:00 99/48 12/13/19 21:00 95 20 99/48 (65) 100 12/13/19 20:45 98 20 101/48 (65) 100 12/13/19 20:33 105 20 100 12/13/19 20:30 97 20 97/49 (65) 100 12/13/19 20:15 97 20 102/50 (67) 100 12/13/19 20:00 98 12/13/19 20:00 20 Mechanical Ventilator 100 12/13/19 20:00 104/49 12/13/19 20:00 100 12/13/19 20:00 Mechanical Ventilator 12/13/19 20:00 96.5 96 20 104/49 (67) 100 12/13/19 19:45 97 20 107/50 (69) 100 12/13/19 19:30 96 21 107/51 (69) 100 12/13/19 19:00 20 Mechanical Ventilator 100 12/13/19 19:00 106/51 12/13/19 19:00 95 20 106/51 (69) 100 12/13/19 18:35 108 21 100 12/13/19 18:30 96 21 110/53 (72) 100 12/13/19 18:00 95 20 110/57 (74) 100 12/13/19 17:30 94 20 110/54 (72) 100 12/13/19 17:00 93 20 114/56 (75) 100 12/13/19 17:00 Mechanical Ventilator 12/13/19 16:30 92 19 111/52 (71) 100 12/13/19 16:24 102 22 100 12/13/19 16:00 100 12/13/19 16:00 103 12/13/19 16:00 96.9 104 21 119/54 (75) 100 12/13/19 16:00 Mechanical Ventilator 12/13/19 16:00 Mechanical Ventilator 12/13/19 15:30 105 22 121/57 (78) 100 12/13/19 15:10 105 22 100 12/13/19 15:00 106 23 120/60 (80) 100 12/13/19 14:30 105 21 147/68 (94) 100 12/13/19 14:00 110 22 110/52 (71) 100 12/13/19 14:00 Mechanical Ventilator 12/13/19 13:30 112 19 116/59 (78) 100 12/13/19 13:09 116 25 100 12/13/19 13:00 117 15 108/57 (74) 100 12/13/19 12:30 115 18 112/55 (74) 100 12/13/19 12:00 Mechanical Ventilator 12/13/19 12:00 100 12/13/19 12:00 99.4 111 27 114/53 (73) 100 12/13/19 12:00 112 12/13/19 11:30 107 25 122/61 (81) 100 12/13/19 11:15 104 21 100 12/13/19 11:00 105 14 117/65 (82) 100 12/13/19 10:30 106 25 128/59 (82) 100 Intake and Output 12/13/19 12/14/19 19:00 07:00 Intake Total 1168.89 ml 949.35 ml Output Total 100 ml 3300 ml Balance 1068.89 ml -2350.65 ml IV Total 688.89 ml 564.35 ml Tube Feeding 420 ml 385 ml Other 60 ml Output Urine Total 0 ml 0 ml Stool Total 100 ml Hemodialysis UF 3300 ml Microbiology Date/Time Source Procedure Growth Status 12/10/19 21:15 Blood Blood Culture - Preliminary NO GROWTH AFTER 72 HOURS Resulted 12/11/19 22:50 Sputum Gram Stain - Final Complete 12/11/19 22:50 Sputum Sputum Culture - Final NORMAL UPPER RESPIRATORY ALISIA AT 48 ... Complete 12/11/19 22:50 Stool Clostridium difficile Toxin Assay - Final Complete 12/11/19 20:33 Indwelling Cath Urine Culture - Final NO GROWTH AFTER 48 HOURS Complete Current Medications Medications (Trade) Dose Ordered Sig/Vicki Route PRN Reason Start Time Stop Time Status Last Admin Dose Admin Acetaminophen (Tylenol) 650 mg Q4H PRN NG Temp >100.5 12/06/19 14:15 01/05/20 14:14 12/10/19 04:34 Acetaminophen (Tylenol) 650 mg Q4H PRN RECTAL Mild Pain (Pain Scale 1-3) 12/04/19 11:45 01/03/20 11:44 12/06/19 19:17 Cefepime HCl 500 mg/Dextrose 50 ml @ 100 mls/hr Q24HRS IV 12/10/19 23:00 12/17/19 22:59 12/14/19 00:09 Chlorhexidine Gluconate (Arely-Hex 2%) 1 applic DAILY@1999 TOPIC 12/05/19 20:00 03/04/20 19:59 12/13/19 20:48 Dextrose (Dextrose 50%) 25 ml Q30M PRN IV Hypoglycemia 11/29/19 14:15 02/27/20 14:14 Dextrose (Dextrose 50%) 50 ml Q30M PRN IV Hypoglycemia 11/29/19 14:15 02/27/20 14:14 Fentanyl Citrate 2500 mcg/Sodium Chloride 250 ml @ 0 mls/hr Q24H IV 12/13/19 00:00 12/20/19 00:00 12/13/19 21:20 Hydralazine HCl (Apresoline) 10 mg Q4H PRN IV For High Blood Pressure 11/29/19 15:15 02/27/20 15:14 Loperamide HCl (Imodium) 2 mg Q6H PRN NG Diarrhea 12/12/19 12:45 01/11/20 12:44 Metronidazole 100 ml @ 100 mls/hr Q8HR IVPB 12/10/19 23:00 12/17/19 22:59 12/14/19 05:47 Midodrine (Pro-Amatine) 10 mg THREE TIMES A DAY ORAL 12/12/19 13:00 03/11/20 12:59 12/14/19 08:30 Norepinephrine Bitartrate 16 mg/ Dextrose 566 ml @ 0 mls/hr Q24H IV 12/06/19 09:00 01/05/20 08:59 12/14/19 01:25 Ondansetron HCl (Zofran) 4 mg Q6H PRN IVP Nausea & Vomiting 11/29/19 14:15 12/29/19 14:14 Pantoprazole (Protonix) 40 mg DAILY IVP 11/30/19 12:15 12/30/19 12:14 12/14/19 08:30 Potassium Chloride (K-Dur) 40 meq TWICE A DAY ORAL 12/11/19 09:30 03/10/20 09:29 12/14/19 08:31 Vancomycin HCl (Vanco rx to dose) 1 ea DAILY PRN MISC Per rx protocol 12/08/19 19:30 01/07/20 19:29 Vasopressin 100 units/Sodium Chloride 100 ml @ 0 mls/hr Q24H IV 12/06/19 09:00 01/05/20 08:59 12/06/19 09:03 Laboratory Tests 12/13/19 10:50: Random Vancomycin Level 13.4 12/13/19 11:06: Arterial Blood pH 7.003*L, Arterial Blood Partial Pressure CO2 149.1*H, Arterial Blood Partial Pressure O2 146.8H, Arterial Blood HCO3 36.2H, Arterial Blood Oxygen Saturation 98.2, Arterial Blood Base Excess 1.4, Melecio Test Positive 12/14/19 04:00: White Blood Count 25.0*H, Red Blood Count 3.58L, Hemoglobin 10.7L, Hematocrit 33.3L, Mean Corpuscular Volume 93, Mean Corpuscular Hemoglobin 30.0, Mean Corpuscular Hemoglobin Concent 32.2, Red Cell Distribution Width 14.0, Platelet Count 176, Mean Platelet Volume 9.1, Neutrophils (%) (Auto) , Lymphocytes (%) ( Auto) , Monocytes (%) (Auto) , Eosinophils (%) (Auto) , Basophils (%) (Auto) , Neutrophils % (Manual) [Pending], Lymphocytes % (Manual) [Pending], Platelet Estimate [Pending], Platelet Morphology [Pending], Sodium Level 139, Potassium Level 4.3, Chloride Level 97L, Carbon Dioxide Level 34H, Anion Gap 8, Blood Urea Nitrogen 35H, Creatinine 3.8H, Estimat Glomerular Filtration Rate 16.4, Glucose Level 147H, Calcium Level 8.9, Total Bilirubin 1.5H, Direct Bilirubin 1.1H, Aspartate Amino Transf (AST/SGOT) 62H, Alanine Aminotransferase (ALT/SGPT ) 98H, Alkaline Phosphatase 226H, Total Protein 6.2L, Albumin 3.1L, Globulin 3.1 , Albumin/Globulin Ratio 1.0 12/14/19 08:50: Arterial Blood pH 7.146*L, Arterial Blood Partial Pressure CO2 101.2*H, Arterial Blood Partial Pressure O2 193.5H, Arterial Blood HCO3 34.1H, Arterial Blood Oxygen Saturation 98.4, Arterial Blood Base Excess 3.0H, Melecio Test Positive Height (Feet): 5 Height (Inches): 6.00 Weight (Pounds): 160 Objective stable no bleeding at prepuce barnes indwelling, marge urine Kai Berger MD December 14, 2019 10:06
--- NOTE | 2019-12-14 10:11 | NUR ---
NURSE NOTES: Spoke with Chinmay from [facility] nephrology- STAT HD scheduled for today 12/14/19 with Cruz Noriega (HD RN). Awaiting call back with confirmation from Hari.
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
--- NOTE | 2019-12-14 10:30 | NUR ---
NURSE NOTES: Dr Aguayo at bedside, made aware of WBC 25.2 and ABG results for today.
--- NOTE | 2019-12-14 11:54 | NUR ---
NURSE NOTES: HD RN Yao just arrived on unit. HD will begin shortly.
--- NOTE | 2019-12-14 12:00 | NUR ---
NURSE NOTES: Pt in no distress, oral care provided, pt receiving HD at this time. Temp 99 F rectal.
--- NOTE | 2019-12-14 13:26 | NUR ---
NURSE NOTES: Received call back from Dr Cortes with order to decrease peep to 7. Vanessa RT notified.
[2019-12-14] MEDS: fentaNYL Citrate 2,500 MCG in NS 200 ML IV SCH (13:36)
--- NOTE | 2019-12-14 14:00 | NUR ---
NURSE NOTES: Message left with Dr Donovan regarding WBC (25). Awaiting call back. Pt still receiving HD at this time.
--- NOTE | 2019-12-14 14:10 | NUR ---
NURSE NOTES: Dr Donovan called back and will see pt later today. No new orders received.
--- NOTE | 2019-12-14 14:20 | NUR ---
NURSE NOTES: Waiting for HD completion to hang flagyl.
--- NOTE | 2019-12-14 14:39 | Cardiac Electrophysiology PN ---
Assessment/Plan Assessment/Plan 1. Atrial fib with RVR 170 before intubation on 12/04/19. Converted to Sinus tach Troponin 0.77. No further atrial fib. In SR 2. Sinus Tachycardia due to respiratory failure and COVID-19 pneumonia. On IV antibiotic per ID. Echo pending. 3. Septic shock. On Levophed 4 Mcg, Midodrine 10 tid and iv Abx. 4. Respiratory failure, on the Vent by Dr. Cortes. 100% Fio2 PEEP 10 and is proned 5. Acute renal failure. On HD per Dr. Sanchez via RFV [place] 6. Full code DW RN Subjective Subjective Intubated in ICU on 100% Fio2 and PEEP 10 on Levo 4 mcg and is proned . Atrial fib with RVR 160s on 12/04/19 but no recurrence. In SR Had HD yesterday 3 liter out and getting HD again today. RN in room Objective Last 24 Hour Vital Signs Date Time Temp Pulse Resp B/P (MAP) Pulse Ox O2 Delivery O2 Flow Rate FiO2 12/14/19 14:00 38 Mechanical Ventilator 100 12/14/19 14:00 100/58 12/14/19 14:00 110 38 100/58 (72) 100 12/14/19 13:57 100 12/14/19 13:36 32 100 12/14/19 13:30 113 33 108/57 (74) 100 12/14/19 13:30 108 20 100 12/14/19 13:00 38 Mechanical Ventilator 100 12/14/19 13:00 101/59 12/14/19 13:00 110 29 119/60 (79) 100 12/14/19 12:30 107 27 97/45 (62) 98 12/14/19 12:00 107 12/14/19 12:00 24 Mechanical Ventilator 100 12/14/19 12:00 94/48 12/14/19 12:00 Mechanical Ventilator 12/14/19 12:00 100 12/14/19 12:00 99.0 105 26 119/60 (79) 99 12/14/19 11:45 106 20 105/53 (70) 98 12/14/19 11:30 105 19 103/58 (73) 98 12/14/19 11:15 110 31 119/63 (81) 100 12/14/19 11:00 21 Mechanical Ventilator 100 12/14/19 11:00 119/63 12/14/19 11:00 107 21 106/57 (73) 99 12/14/19 10:59 105 26 100 12/14/19 10:45 106 22 99/53 (68) 98 12/14/19 10:30 106 22 89/51 (64) 98 12/14/19 10:15 106 20 90/47 (61) 99 12/14/19 10:00 104 20 90/48 (62) 99 12/14/19 10:00 20 Mechanical Ventilator 100 12/14/19 10:00 90/47 12/14/19 09:45 106 21 90/46 (61) 99 12/14/19 09:30 106 17 82/42 (55) 98 12/14/19 09:15 110 29 81/42 (55) 98 12/14/19 09:00 103 20 85/44 (58) 98 12/14/19 09:00 21 Mechanical Ventilator 100 12/14/19 09:00 81/42 12/14/19 08:50 99 22 100 12/14/19 08:45 103 18 93/44 (60) 98 12/14/19 08:36 98 17 99/45 (63) 99 12/14/19 08:30 101 19 85/46 (59) 99 12/14/19 08:15 101 19 94/45 (61) 98 12/14/19 08:00 98.2 101 19 90/48 (62) 98 12/14/19 08:00 101 12/14/19 08:00 20 Mechanical Ventilator 100 12/14/19 08:00 94/45 12/14/19 08:00 100 12/14/19 08:00 Mechanical Ventilator 12/14/19 07:45 101 20 91/47 (62) 99 12/14/19 07:30 99 22 100 12/14/19 07:30 101 20 92/44 (60) 98 12/14/19 07:15 100 19 91/45 (60) 99 12/14/19 07:00 20 Mechanical Ventilator 100 12/14/19 07:00 91/45 12/14/19 07:00 100 19 94/46 (62) 99 12/14/19 06:30 99 14 96/46 (63) 99 12/14/19 06:00 99 13 101/47 (65) 99 12/14/19 06:00 20 Mechanical Ventilator 100 12/14/19 06:00 96/46 12/14/19 05:30 99 20 104/54 (71) 99 12/14/19 05:00 97 20 108/52 (70) 100 12/14/19 05:00 20 Mechanical Ventilator 100 12/14/19 05:00 104/57 12/14/19 04:31 108 20 100 12/14/19 04:30 94 17 104/51 (68) 100 12/14/19 04:00 86 12/14/19 04:00 98.1 90 20 101/46 (64) 100 12/14/19 04:00 Mechanical Ventilator 12/14/19 04:00 20 Mechanical Ventilator 100 12/14/19 04:00 119/55 12/14/19 04:00 100 12/14/19 03:30 85 21 119/55 (76) 100 12/14/19 03:10 106 20 100 12/14/19 03:00 20 Mechanical Ventilator 100 12/14/19 03:00 108/59 12/14/19 03:00 99 18 121/63 (82) 100 12/14/19 02:30 99 20 126/57 (80) 100 12/14/19 02:00 102 21 108/59 (75) 100 12/14/19 02:00 20 Mechanical Ventilator 100 12/14/19 02:00 126/66 12/14/19 01:30 93 22 126/66 (86) 100 12/14/19 01:25 101/52 12/14/19 01:00 99 21 109/54 (72) 100 12/14/19 01:00 20 Mechanical Ventilator 100 12/14/19 01:00 101/52 12/14/19 00:45 109 20 100 12/14/19 00:30 98 20 100/59 (73) 100 12/14/19 00:00 99.1 98 22 102/57 (72) 100 12/14/19 00:00 20 Mechanical Ventilator 100 12/14/19 00:00 99/60 12/14/19 00:00 100 12/14/19 00:00 Mechanical Ventilator 12/14/19 00:00 99 12/13/19 23:52 97 21 96/56 (69) 100 12/13/19 23:30 96 21 113/60 (77) 100 12/13/19 23:05 107 20 100 12/13/19 23:00 99 19 114/55 (74) 100 12/13/19 23:00 20 Mechanical Ventilator 100 12/13/19 23:00 102/56 12/13/19 22:45 99 19 114/55 (74) 100 12/13/19 22:30 98 18 114/59 (77) 100 12/13/19 22:00 94 18 99/50 (66) 100 12/13/19 22:00 20 Mechanical Ventilator 100 12/13/19 22:00 99/50 12/13/19 21:45 95 20 121/58 (79) 100 12/13/19 21:41 97 20 112/57 (75) 100 12/13/19 21:30 96 21 110/55 (73) 100 12/13/19 21:20 Mechanical Ventilator 100 12/13/19 21:15 95 21 99/47 (64) 100 12/13/19 21:00 20 Mechanical Ventilator 100 12/13/19 21:00 99/48 12/13/19 21:00 95 20 99/48 (65) 100 12/13/19 20:45 98 20 101/48 (65) 100 12/13/19 20:33 105 20 100 12/13/19 20:30 97 20 97/49 (65) 100 12/13/19 20:15 97 20 102/50 (67) 100 12/13/19 20:00 98 12/13/19 20:00 20 Mechanical Ventilator 100 12/13/19 20:00 104/49 12/13/19 20:00 100 12/13/19 20:00 Mechanical Ventilator 12/13/19 20:00 96.5 96 20 104/49 (67) 100 12/13/19 19:45 97 20 107/50 (69) 100 12/13/19 19:30 96 21 107/51 (69) 100 12/13/19 19:00 20 Mechanical Ventilator 100 12/13/19 19:00 106/51 12/13/19 19:00 95 20 106/51 (69) 100 12/13/19 18:35 108 21 100 12/13/19 18:30 96 21 110/53 (72) 100 12/13/19 18:00 95 20 110/57 (74) 100 12/13/19 17:30 94 20 110/54 (72) 100 12/13/19 17:00 93 20 114/56 (75) 100 12/13/19 17:00 Mechanical Ventilator 12/13/19 16:30 92 19 111/52 (71) 100 12/13/19 16:24 102 22 100 12/13/19 16:00 100 12/13/19 16:00 103 12/13/19 16:00 96.9 104 21 119/54 (75) 100 12/13/19 16:00 Mechanical Ventilator 12/13/19 16:00 Mechanical Ventilator 12/13/19 15:30 105 22 121/57 (78) 100 12/13/19 15:10 105 22 100 12/13/19 15:00 106 23 120/60 (80) 100 Intake and Output 12/13/19 12/14/19 19:00 07:00 Intake Total 1168.89 ml 1057.84 ml Output Total 100 ml 3300 ml Balance 1068.89 ml -2242.16 ml Free Water 10 ml IV Total 688.89 ml 592.84 ml Tube Feeding 420 ml 455 ml Other 60 ml Output Urine Total 0 ml 0 ml Stool Total 100 ml Hemodialysis UF 3300 ml Laboratory Tests Test 12/14/19 04:00 12/14/19 08:50 White Blood Count 25.0 K/UL (4.8-10.8) *H Red Blood Count 3.58 M/UL (4.70-6.10) L Hemoglobin 10.7 G/DL (14.2-18.0) L Hematocrit 33.3 % (42.0-52.0) L Mean Corpuscular Volume 93 FL (80-99) Mean Corpuscular Hemoglobin 30.0 PG (27.0-31.0) Mean Corpuscular Hemoglobin Concent 32.2 G/DL (32.0-36.0) Red Cell Distribution Width 14.0 % (11.6-14.8) Platelet Count 176 K/UL (150-450) Mean Platelet Volume 9.1 FL (6.5-10.1) Neutrophils (%) (Auto) % (45.0-75.0) Lymphocytes (%) (Auto) % (20.0-45.0) Monocytes (%) (Auto) % (1.0-10.0) Eosinophils (%) (Auto) % (0.0-3.0) Basophils (%) (Auto) % (0.0-2.0) Neutrophils % (Manual) Pending Lymphocytes % (Manual) Pending Platelet Estimate Pending Platelet Morphology Pending Sodium Level 139 MMOL/L (136-145) Potassium Level 4.3 MMOL/L (3.5-5.1) Chloride Level 97 MMOL/L (98-107) L Carbon Dioxide Level 34 MMOL/L (21-32) H Anion Gap 8 mmol/L (5-15) Blood Urea Nitrogen 35 mg/dL (7-18) H Creatinine 3.8 MG/DL (0.55-1.30) H Estimat Glomerular Filtration Rate 16.4 mL/min (>60) Glucose Level 147 MG/DL (74-106) H Calcium Level 8.9 MG/DL (8.5-10.1) Total Bilirubin 1.5 MG/DL (0.2-1.0) H Direct Bilirubin 1.1 MG/DL (0.0-0.3) H Aspartate Amino Transf (AST/SGOT) 62 U/L (15-37) H Alanine Aminotransferase (ALT/SGPT) 98 U/L (12-78) H Alkaline Phosphatase 226 U/L (46-116) H Total Protein 6.2 G/DL (6.4-8.2) L Albumin 3.1 G/DL (3.4-5.0) L Globulin 3.1 g/dL Albumin/Globulin Ratio 1.0 (1.0-2.7) Arterial Blood pH 7.146 (7.350-7.450) Arterial Blood Partial Pressure CO2 101.2 mmHg (35.0-45.0) *H Arterial Blood Partial Pressure O2 193.5 mmHg (75.0-100.0) H Arterial Blood HCO3 34.1 mmol/L (22.0-26.0) H Arterial Blood Oxygen Saturation 98.4 % (95-100) Arterial Blood Base Excess 3.0 (-2-2) H Melecio Test Positive Microbiology Date/Time Source Procedure Growth Status 12/11/19 22:50 Sputum Gram Stain - Final Complete 12/11/19 22:50 Sputum Sputum Culture - Final NORMAL UPPER RESPIRATORY ALISIA AT 48 ... Complete 12/11/19 22:50 Stool Clostridium difficile Toxin Assay - Final Complete 12/11/19 20:33 Indwelling Cath Urine Culture - Final NO GROWTH AFTER 48 HOURS Complete Objective HEAD AND NECK: Orally intubated No JVD LUNGS: Decreased breath sounds. Coarse rhonchi. CARDIOVASCULAR: Tachycardic S1 and S2 with no gallop. ABDOMEN: Soft. EXTREMITIES: 1 plus pitting edema. RFV [place] in place Raul Appiah MD December 14, 2019 14:39
[2019-12-14] MEDS ORDERED: NS 275ml ONE (15:57)
--- NOTE | 2019-12-14 17:00 | NUR ---
NURSE NOTES: Pt moved form prone positioning to supine- un-stageable pressure injuries noted to both cheeks upon loosening ETT securement device (anchor fast). pictures taken, wound care orders updated and wound care provided per protocol. Yoshi notified.
--- NOTE | 2019-12-14 17:20 | NUR ---
RESPIRATORY NOTE: Place pt back on supine position with RN and [employer]. When changed anchor fast noted two wounds on pt's cheeks under anchor fast(one in each side).DARYA Valentin at bedside and took pictures of the wounds.We cleaned the wound and placed the wound tapes on the wound before placing the new anchor fast back on.
--- NOTE | 2019-12-14 17:39 | NUR ---
RESPIRATORY NOTE: Notified wound care nurse Yoshi about the wounds. She aware now and will follow up.
--- NOTE | 2019-12-14 18:24 | Nephrology Progress Note ---
Assessment/Plan Plan #ALBARO- concerns for developing ischemic ATN in the setting of sepsis- r/o vanco toxicity - r/o COVID nephropathy - now with likely ATN #Hyperkalemia due to renal insuffiency - exacerbated by acidosis #COID sepsis #COVID pneumonia #hypoxemic respiratary failure #HTN- now in shock #mediastinal PTX - next HD today - order placed- UF as tolerated- 3L-> will given albumin PRN - midodorine 10mg q8hr - monitor I&Os - daily weights - monitor lytes closely - proned - GOALS of care discussion - continue pressor support to maintain MAP > 65- continue levo - continue fentanyl dip - abx per ID- on vanco and cefepime, flagyl - vent management per pulm -Abd Xray shows mediastinal PTX - too high risk for thorocotomy Subjective ROS Limited/Unobtainable: Yes Subjective s/p HD yesterday with 3.L UF plan HD gain today chest xray looks better remains oliguric on Fio2 100 on levo Abd Xray shows mediastinal PTX On fentanyl drip Objective Objective Last 24 Hour Vital Signs Date Time Temp Pulse Resp B/P (MAP) Pulse Ox O2 Delivery O2 Flow Rate FiO2 12/14/19 17:45 99 20 113/58 (76) 100 12/14/19 17:30 102 21 104/49 (67) 100 12/14/19 17:20 105 26 100 12/14/19 17:15 99 23 106/49 (68) 80 12/14/19 17:00 107 20 88/50 (63) 99 12/14/19 17:00 20 Mechanical Ventilator 100 12/14/19 17:00 88/60 12/14/19 16:30 104 18 120/60 (80) 99 12/14/19 16:00 110 12/14/19 16:00 Mechanical Ventilator 12/14/19 16:00 17 Mechanical Ventilator 100 12/14/19 16:00 120/63 12/14/19 16:00 99.5 107 17 120/63 (82) 100 12/14/19 15:30 110 20 110/55 (73) 99 12/14/19 15:00 34 Mechanical Ventilator 100 12/14/19 15:00 100/57 12/14/19 15:00 110 34 100/57 (71) 99 12/14/19 14:51 110 21 100 12/14/19 14:30 110 36 104/52 (69) 100 12/14/19 14:00 38 Mechanical Ventilator 100 12/14/19 14:00 100/58 12/14/19 14:00 110 38 100/58 (72) 100 12/14/19 13:57 100 12/14/19 13:36 32 100 12/14/19 13:30 113 33 108/57 (74) 100 12/14/19 13:30 108 20 100 12/14/19 13:00 38 Mechanical Ventilator 100 12/14/19 13:00 101/59 12/14/19 13:00 110 29 119/60 (79) 100 12/14/19 12:30 107 27 97/45 (62) 98 12/14/19 12:00 107 12/14/19 12:00 24 Mechanical Ventilator 100 12/14/19 12:00 94/48 12/14/19 12:00 Mechanical Ventilator 12/14/19 12:00 100 12/14/19 12:00 99.0 105 26 119/60 (79) 99 12/14/19 11:45 106 20 105/53 (70) 98 12/14/19 11:30 105 19 103/58 (73) 98 12/14/19 11:15 110 31 119/63 (81) 100 12/14/19 11:00 21 Mechanical Ventilator 100 12/14/19 11:00 119/63 12/14/19 11:00 107 21 106/57 (73) 99 12/14/19 10:59 105 26 100 12/14/19 10:45 106 22 99/53 (68) 98 12/14/19 10:30 106 22 89/51 (64) 98 12/14/19 10:15 106 20 90/47 (61) 99 12/14/19 10:00 104 20 90/48 (62) 99 12/14/19 10:00 20 Mechanical Ventilator 100 12/14/19 10:00 90/47 12/14/19 09:45 106 21 90/46 (61) 99 12/14/19 09:30 106 17 82/42 (55) 98 12/14/19 09:15 110 29 81/42 (55) 98 12/14/19 09:00 103 20 85/44 (58) 98 12/14/19 09:00 21 Mechanical Ventilator 100 12/14/19 09:00 81/42 12/14/19 08:50 99 22 100 12/14/19 08:45 103 18 93/44 (60) 98 12/14/19 08:36 98 17 99/45 (63) 99 12/14/19 08:30 101 19 85/46 (59) 99 12/14/19 08:15 101 19 94/45 (61) 98 12/14/19 08:00 98.2 101 19 90/48 (62) 98 12/14/19 08:00 101 12/14/19 08:00 20 Mechanical Ventilator 100 12/14/19 08:00 94/45 12/14/19 08:00 100 12/14/19 08:00 Mechanical Ventilator 12/14/19 07:45 101 20 91/47 (62) 99 12/14/19 07:30 99 22 100 12/14/19 07:30 101 20 92/44 (60) 98 12/14/19 07:15 100 19 91/45 (60) 99 12/14/19 07:00 20 Mechanical Ventilator 100 12/14/19 07:00 91/45 12/14/19 07:00 100 19 94/46 (62) 99 12/14/19 06:30 99 14 96/46 (63) 99 12/14/19 06:00 99 13 101/47 (65) 99 12/14/19 06:00 20 Mechanical Ventilator 100 12/14/19 06:00 96/46 12/14/19 05:30 99 20 104/54 (71) 99 12/14/19 05:00 97 20 108/52 (70) 100 12/14/19 05:00 20 Mechanical Ventilator 100 12/14/19 05:00 104/57 12/14/19 04:31 108 20 100 12/14/19 04:30 94 17 104/51 (68) 100 12/14/19 04:00 86 12/14/19 04:00 98.1 90 20 101/46 (64) 100 12/14/19 04:00 Mechanical Ventilator 12/14/19 04:00 20 Mechanical Ventilator 100 12/14/19 04:00 119/55 12/14/19 04:00 100 12/14/19 03:30 85 21 119/55 (76) 100 12/14/19 03:10 106 20 100 12/14/19 03:00 20 Mechanical Ventilator 100 12/14/19 03:00 108/59 12/14/19 03:00 99 18 121/63 (82) 100 12/14/19 02:30 99 20 126/57 (80) 100 12/14/19 02:00 102 21 108/59 (75) 100 12/14/19 02:00 20 Mechanical Ventilator 100 12/14/19 02:00 126/66 12/14/19 01:30 93 22 126/66 (86) 100 12/14/19 01:25 101/52 12/14/19 01:00 99 21 109/54 (72) 100 12/14/19 01:00 20 Mechanical Ventilator 100 12/14/19 01:00 101/52 12/14/19 00:45 109 20 100 12/14/19 00:30 98 20 100/59 (73) 100 12/14/19 00:00 99.1 98 22 102/57 (72) 100 12/14/19 00:00 20 Mechanical Ventilator 100 12/14/19 00:00 99/60 12/14/19 00:00 100 12/14/19 00:00 Mechanical Ventilator 12/14/19 00:00 99 12/13/19 23:52 97 21 96/56 (69) 100 12/13/19 23:30 96 21 113/60 (77) 100 12/13/19 23:05 107 20 100 12/13/19 23:00 99 19 114/55 (74) 100 12/13/19 23:00 20 Mechanical Ventilator 100 12/13/19 23:00 102/56 12/13/19 22:45 99 19 114/55 (74) 100 12/13/19 22:30 98 18 114/59 (77) 100 12/13/19 22:00 94 18 99/50 (66) 100 12/13/19 22:00 20 Mechanical Ventilator 100 12/13/19 22:00 99/50 12/13/19 21:45 95 20 121/58 (79) 100 12/13/19 21:41 97 20 112/57 (75) 100 12/13/19 21:30 96 21 110/55 (73) 100 12/13/19 21:20 Mechanical Ventilator 100 12/13/19 21:15 95 21 99/47 (64) 100 12/13/19 21:00 20 Mechanical Ventilator 100 12/13/19 21:00 99/48 12/13/19 21:00 95 20 99/48 (65) 100 12/13/19 20:45 98 20 101/48 (65) 100 12/13/19 20:33 105 20 100 12/13/19 20:30 97 20 97/49 (65) 100 12/13/19 20:15 97 20 102/50 (67) 100 12/13/19 20:00 98 12/13/19 20:00 20 Mechanical Ventilator 100 12/13/19 20:00 104/49 12/13/19 20:00 100 12/13/19 20:00 Mechanical Ventilator 12/13/19 20:00 96.5 96 20 104/49 (67) 100 12/13/19 19:45 97 20 107/50 (69) 100 12/13/19 19:30 96 21 107/51 (69) 100 12/13/19 19:00 20 Mechanical Ventilator 100 12/13/19 19:00 106/51 12/13/19 19:00 95 20 106/51 (69) 100 12/13/19 18:35 108 21 100 12/13/19 18:30 96 21 110/53 (72) 100 Intake and Output 12/13/19 12/14/19 19:00 07:00 Intake Total 1168.89 ml 1057.84 ml Output Total 100 ml 3300 ml Balance 1068.89 ml -2242.16 ml Free Water 10 ml IV Total 688.89 ml 592.84 ml Tube Feeding 420 ml 455 ml Other 60 ml Output Urine Total 0 ml 0 ml Stool Total 100 ml Hemodialysis UF 3300 ml Laboratory Tests 12/14/19 04:00: White Blood Count 25.0*H, Red Blood Count 3.58L, Hemoglobin 10.7L, Hematocrit 33.3L, Mean Corpuscular Volume 93, Mean Corpuscular Hemoglobin 30.0, Mean Corpuscular Hemoglobin Concent 32.2, Red Cell Distribution Width 14.0, Platelet Count 176, Mean Platelet Volume 9.1, Neutrophils (%) (Auto) , Lymphocytes (%) ( Auto) , Monocytes (%) (Auto) , Eosinophils (%) (Auto) , Basophils (%) (Auto) , Differential Total Cells Counted 100, Neutrophils % (Manual) 78H, Lymphocytes % (Manual) 4L, Monocytes % (Manual) 6, Eosinophils % (Manual) 1, Basophils % ( Manual) 0, Metamyelocytes % 1H, Myelocytes % 2H, Band Neutrophils 8, Platelet Estimate Adequate, Platelet Morphology Normal, Red Blood Cell Morphology Normal , Sodium Level 139, Potassium Level 4.3, Chloride Level 97L, Carbon Dioxide Level 34H, Anion Gap 8, Blood Urea Nitrogen 35H, Creatinine 3.8H, Estimat Glomerular Filtration Rate 16.4, Glucose Level 147H, Calcium Level 8.9, Total Bilirubin 1.5H, Direct Bilirubin 1.1H, Aspartate Amino Transf (AST/SGOT) 62H, Alanine Aminotransferase (ALT/SGPT) 98H, Alkaline Phosphatase 226H, Total Protein 6.2L, Albumin 3.1L, Globulin 3.1, Albumin/Globulin Ratio 1.0 12/14/19 08:50: Arterial Blood pH 7.146*L, Arterial Blood Partial Pressure CO2 101.2*H, Arterial Blood Partial Pressure O2 193.5H, Arterial Blood HCO3 34.1H, Arterial Blood Oxygen Saturation 98.4, Arterial Blood Base Excess 3.0H, Melecio Test Positive Height (Feet): 5 Height (Inches): 6.00 Weight (Pounds): 160 Objective General Appearance: other - intubated- proned Lines, tubes and drains: central line HEENT: normocephalic, atraumatic Respiratory/Chest: rhonchi - bilaterally Cardiovascular/Chest: other - tachycardic Extremities: pitting Dorian Soriano M.D. December 14, 2019 18:24
--- NOTE | 2019-12-14 19:23 | NUR ---
HAND-OFF: Report given to DARYA Hdz. Pt remains on 200 mcg/hr of fentanyl and 6 mcg/min of Levophed with current BP of 105/55. No distress noted.
--- NOTE | 2019-12-14 19:34 | NUR ---
RESPIRATORY NOTE: Received pt on AC 20, 500VT, 100%, PEEP +7. Pt intubated w/ ETT 8.0 @ 24cm. Pt sedated. B/S louise. rhonchi, sxn moderate amounts of thick, doss-brown secretions w/ occasional blood clots & plugs. Vent plugged into red outlet, ambubag at bedside. Pt in no apparent distress at this time. Will continue to monitor pt.
--- NOTE | 2019-12-14 19:43 | Infectious Diseases Prog Note ---
Assessment/Plan Assessment/Plan ASSESSMENT AND PLAN: 1. covid-19 virus infection with pna, rule out bacterial pna, sepsis/shock, fevers, leukocytosis vent, respiratory failure, ? 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 negative - s/p tocilizumab - critical - getting HD - poor prognosis - fever curve better 2. Hypertension. 3. No known allergies. 4. Social history negative. 5. Family history noncontributory. 6. MAR was noted. 7. Case discussed with RN. 8. Continue treatment per primary consultants. Subjective Constitutional: Reports: fever - less, other - on vent and pressors HEENT: Reports: congestion Respiratory: Reports: shortness of breath Cardiovascular: Denies: chest pain Gastrointestinal/Abdominal: Denies: nausea, vomiting, diarrhea Genitourinary: Reports: other - + barnes Neurologic: Reports: weakness, other - lethargic Psychiatric: Reports: other - NA Skin: Denies: rash Hematologic: Denies: bleeding Musculoskeletal: Reports: other - NA Allergies: Coded Allergies: No Known Allergies (Unverified , 11/29/19) Objective Vital Signs Last 24 Hour Vital Signs Date Time Temp Pulse Resp B/P (MAP) Pulse Ox O2 Delivery O2 Flow Rate FiO2 12/14/19 19:28 83 23 100 12/14/19 19:00 86 20 106/53 (70) 100 12/14/19 19:00 20 Mechanical Ventilator 100 12/14/19 19:00 106/53 12/14/19 18:45 87 15 106/52 (70) 100 12/14/19 18:33 88 16 100/55 (70) 100 12/14/19 18:30 88 17 100/55 (70) 100 12/14/19 18:15 90 16 110/53 (72) 100 12/14/19 18:00 20 Mechanical Ventilator 100 12/14/19 18:00 112/58 12/14/19 18:00 94 19 112/58 (76) 100 12/14/19 17:45 99 20 113/58 (76) 100 12/14/19 17:30 102 21 104/49 (67) 100 12/14/19 17:20 105 26 100 12/14/19 17:15 99 23 106/49 (68) 80 12/14/19 17:00 107 20 88/50 (63) 99 12/14/19 17:00 20 Mechanical Ventilator 100 12/14/19 17:00 88/60 12/14/19 16:30 104 18 120/60 (80) 99 12/14/19 16:00 110 12/14/19 16:00 Mechanical Ventilator 12/14/19 16:00 20 Mechanical Ventilator 100 12/14/19 16:00 120/63 12/14/19 16:00 99.5 107 17 120/63 (82) 100 12/14/19 15:30 110 20 110/55 (73) 99 12/14/19 15:00 34 Mechanical Ventilator 100 12/14/19 15:00 100/57 12/14/19 15:00 110 34 100/57 (71) 99 12/14/19 14:51 110 21 100 12/14/19 14:30 110 36 104/52 (69) 100 12/14/19 14:00 38 Mechanical Ventilator 100 12/14/19 14:00 100/58 12/14/19 14:00 110 38 100/58 (72) 100 12/14/19 13:57 100 12/14/19 13:36 32 100 12/14/19 13:30 113 33 108/57 (74) 100 12/14/19 13:30 108 20 100 12/14/19 13:00 38 Mechanical Ventilator 100 12/14/19 13:00 101/59 12/14/19 13:00 110 29 119/60 (79) 100 12/14/19 12:30 107 27 97/45 (62) 98 12/14/19 12:00 107 12/14/19 12:00 24 Mechanical Ventilator 100 12/14/19 12:00 94/48 12/14/19 12:00 Mechanical Ventilator 12/14/19 12:00 100 12/14/19 12:00 99.0 105 26 119/60 (79) 99 12/14/19 11:45 106 20 105/53 (70) 98 12/14/19 11:30 105 19 103/58 (73) 98 12/14/19 11:15 110 31 119/63 (81) 100 12/14/19 11:00 21 Mechanical Ventilator 100 5/2/20 11:00 119/63 12/14/19 11:00 107 21 106/57 (73) 99 12/14/19 10:59 105 26 100 12/14/19 10:45 106 22 99/53 (68) 98 12/14/19 10:30 106 22 89/51 (64) 98 12/14/19 10:15 106 20 90/47 (61) 99 12/14/19 10:00 104 20 90/48 (62) 99 12/14/19 10:00 20 Mechanical Ventilator 100 12/14/19 10:00 90/47 12/14/19 09:45 106 21 90/46 (61) 99 12/14/19 09:30 106 17 82/42 (55) 98 12/14/19 09:15 110 29 81/42 (55) 98 12/14/19 09:00 103 20 85/44 (58) 98 12/14/19 09:00 21 Mechanical Ventilator 100 12/14/19 09:00 81/42 12/14/19 08:50 99 22 100 12/14/19 08:45 103 18 93/44 (60) 98 12/14/19 08:36 98 17 99/45 (63) 99 12/14/19 08:30 101 19 85/46 (59) 99 12/14/19 08:15 101 19 94/45 (61) 98 12/14/19 08:00 98.2 101 19 90/48 (62) 98 12/14/19 08:00 101 12/14/19 08:00 20 Mechanical Ventilator 100 12/14/19 08:00 94/45 12/14/19 08:00 100 12/14/19 08:00 Mechanical Ventilator 12/14/19 07:45 101 20 91/47 (62) 99 12/14/19 07:30 99 22 100 12/14/19 07:30 101 20 92/44 (60) 98 12/14/19 07:15 100 19 91/45 (60) 99 12/14/19 07:00 20 Mechanical Ventilator 100 12/14/19 07:00 91/45 12/14/19 07:00 100 19 94/46 (62) 99 12/14/19 06:30 99 14 96/46 (63) 99 12/14/19 06:00 99 13 101/47 (65) 99 12/14/19 06:00 20 Mechanical Ventilator 100 12/14/19 06:00 96/46 12/14/19 05:30 99 20 104/54 (71) 99 12/14/19 05:00 97 20 108/52 (70) 100 12/14/19 05:00 20 Mechanical Ventilator 100 12/14/19 05:00 104/57 12/14/19 04:31 108 20 100 12/14/19 04:30 94 17 104/51 (68) 100 12/14/19 04:00 86 12/14/19 04:00 98.1 90 20 101/46 (64) 100 12/14/19 04:00 Mechanical Ventilator 12/14/19 04:00 20 Mechanical Ventilator 100 12/14/19 04:00 119/55 12/14/19 04:00 100 12/14/19 03:30 85 21 119/55 (76) 100 12/14/19 03:10 106 20 100 12/14/19 03:00 20 Mechanical Ventilator 100 12/14/19 03:00 108/59 12/14/19 03:00 99 18 121/63 (82) 100 12/14/19 02:30 99 20 126/57 (80) 100 12/14/19 02:00 102 21 108/59 (75) 100 12/14/19 02:00 20 Mechanical Ventilator 100 12/14/19 02:00 126/66 12/14/19 01:30 93 22 126/66 (86) 100 12/14/19 01:25 101/52 12/14/19 01:00 99 21 109/54 (72) 100 12/14/19 01:00 20 Mechanical Ventilator 100 12/14/19 01:00 101/52 12/14/19 00:45 109 20 100 12/14/19 00:30 98 20 100/59 (73) 100 12/14/19 00:00 99.1 98 22 102/57 (72) 100 12/14/19 00:00 20 Mechanical Ventilator 100 12/14/19 00:00 99/60 12/14/19 00:00 100 12/14/19 00:00 Mechanical Ventilator 12/14/19 00:00 99 12/13/19 23:52 97 21 96/56 (69) 100 12/13/19 23:30 96 21 113/60 (77) 100 12/13/19 23:05 107 20 100 12/13/19 23:00 99 19 114/55 (74) 100 12/13/19 23:00 20 Mechanical Ventilator 100 12/13/19 23:00 102/56 12/13/19 22:45 99 19 114/55 (74) 100 12/13/19 22:30 98 18 114/59 (77) 100 12/13/19 22:00 94 18 99/50 (66) 100 12/13/19 22:00 20 Mechanical Ventilator 100 12/13/19 22:00 99/50 12/13/19 21:45 95 20 121/58 (79) 100 12/13/19 21:41 97 20 112/57 (75) 100 12/13/19 21:30 96 21 110/55 (73) 100 12/13/19 21:20 Mechanical Ventilator 100 12/13/19 21:15 95 21 99/47 (64) 100 12/13/19 21:00 20 Mechanical Ventilator 100 12/13/19 21:00 99/48 12/13/19 21:00 95 20 99/48 (65) 100 12/13/19 20:45 98 20 101/48 (65) 100 12/13/19 20:33 105 20 100 12/13/19 20:30 97 20 97/49 (65) 100 12/13/19 20:15 97 20 102/50 (67) 100 12/13/19 20:00 98 12/13/19 20:00 20 Mechanical Ventilator 100 12/13/19 20:00 104/49 12/13/19 20:00 100 12/13/19 20:00 Mechanical Ventilator 12/13/19 20:00 96.5 96 20 104/49 (67) 100 12/13/19 19:45 97 20 107/50 (69) 100 Height (Feet): 5 Height (Inches): 6.00 Weight (Pounds): 160 General Appearance: other - on vent, pressors and sedated HEENT: normocephalic, atraumatic, anicteric, no JVD, other - oral - intubated Respiratory/Chest: crackles/rales, rhonchi - bilaterally Cardiovascular: normal rate, regular rhythm, no gallop/murmur Abdomen: normal bowel sounds, soft, non tender, no organomegaly, non distended Genitourinary: other - + barnes - urine slt cloudy Extremities: no cyanosis Skin: no rash Neurologic/Psychiatric: 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 COMPARISON: Chest x-ray dated 11/29/19 FINDINGS: Lungs: Persistent diffuse peripheral groundglass opacities, not significantly changed, concerning for pneumonia. Pleural space: Unremarkable. The costophrenic angles are sharp. No visible pneumothorax. Heart: Unremarkable. No cardiomegaly. Mediastinum: Unremarkable. Bones/joints: Mild degenerative changes throughout the visualized spine. Tubes, lines and devices: Telemetry leads overlie the thorax. IMPRESSION: No significant change compared to the prior chest x-ray. Persistent diffuse peripheral groundglass opacities, concerning for pneumonia. Chest x-ray - 12/07/19 - COMPARISON: Chest x-ray 12/06/19 1317 FINDINGS: Lungs: Diffuse bilateral airspace opacities, improved in the left lung and slightly worsened in the right lung. Pleural space: Unremarkable. No pneumothorax. Heart: Mild cardiomegaly. Mediastinum: Unremarkable. Bones/joints: Mild degenerative changes of spine. Tubes, lines and devices: Endotracheal tube and NG tube are stable. IMPRESSION: Diffuse bilateral airspace opacities, improved in the left lung and slightly worsened in the right lung. Chest x-ray - 12/10/19 - Procedure: XRAY Chest 1v Indication: Shortness of breath Technique: One view of the chest Comparison: 12/07/2019 Findings: There is worsening airspace opacity in the bilateral mid and lower lungs. The left hemidiaphragm is obscured, could indicate some pleural fluid. Stable satisfactory positions of endotracheal and nasogastric tubes. Impression: Worsening infiltrates, likely pneumonia, bilaterally Microbiology Date/Time Source Procedure Growth Status 12/11/19 22:50 Sputum Gram Stain - Final Complete 12/11/19 22:50 Sputum Sputum Culture - Final NORMAL UPPER RESPIRATORY ALISIA AT 48 ... Complete 12/11/19 22:50 Stool Clostridium difficile Toxin Assay - Final Complete 12/11/19 20:33 Indwelling Cath Urine Culture - Final NO GROWTH AFTER 48 HOURS Complete Laboratory Tests Test 12/14/19 04:00 12/14/19 08:50 White Blood Count 25.0 K/UL (4.8-10.8) *H Red Blood Count 3.58 M/UL (4.70-6.10) L Hemoglobin 10.7 G/DL (14.2-18.0) L Hematocrit 33.3 % (42.0-52.0) L Mean Corpuscular Volume 93 FL (80-99) Mean Corpuscular Hemoglobin 30.0 PG (27.0-31.0) Mean Corpuscular Hemoglobin Concent 32.2 G/DL (32.0-36.0) Red Cell Distribution Width 14.0 % (11.6-14.8) Platelet Count 176 K/UL (150-450) Mean Platelet Volume 9.1 FL (6.5-10.1) Neutrophils (%) (Auto) % (45.0-75.0) Lymphocytes (%) (Auto) % (20.0-45.0) Monocytes (%) (Auto) % (1.0-10.0) Eosinophils (%) (Auto) % (0.0-3.0) Basophils (%) (Auto) % (0.0-2.0) Differential Total Cells Counted 100 Neutrophils % (Manual) 78 % (45-75) H Lymphocytes % (Manual) 4 % (20-45) L Monocytes % (Manual) 6 % (1-10) Eosinophils % (Manual) 1 % (0-3) Basophils % (Manual) 0 % (0-2) Metamyelocytes % 1 % (0-0) H Myelocytes % 2 % (0-0) H Band Neutrophils 8 % (0-8) Platelet Estimate Adequate Platelet Morphology Normal Red Blood Cell Morphology Normal Sodium Level 139 MMOL/L (136-145) Potassium Level 4.3 MMOL/L (3.5-5.1) Chloride Level 97 MMOL/L (98-107) L Carbon Dioxide Level 34 MMOL/L (21-32) H Anion Gap 8 mmol/L (5-15) Blood Urea Nitrogen 35 mg/dL (7-18) H Creatinine 3.8 MG/DL (0.55-1.30) H Estimat Glomerular Filtration Rate 16.4 mL/min (>60) Glucose Level 147 MG/DL (74-106) H Calcium Level 8.9 MG/DL (8.5-10.1) Total Bilirubin 1.5 MG/DL (0.2-1.0) H Direct Bilirubin 1.1 MG/DL (0.0-0.3) H Aspartate Amino Transf (AST/SGOT) 62 U/L (15-37) H Alanine Aminotransferase (ALT/SGPT) 98 U/L (12-78) H Alkaline Phosphatase 226 U/L (46-116) H Total Protein 6.2 G/DL (6.4-8.2) L Albumin 3.1 G/DL (3.4-5.0) L Globulin 3.1 g/dL Albumin/Globulin Ratio 1.0 (1.0-2.7) Arterial Blood pH 7.146 (7.350-7.450) Arterial Blood Partial Pressure CO2 101.2 mmHg (35.0-45.0) *H Arterial Blood Partial Pressure O2 193.5 mmHg (75.0-100.0) H Arterial Blood HCO3 34.1 mmol/L (22.0-26.0) H Arterial Blood Oxygen Saturation 98.4 % (95-100) Arterial Blood Base Excess 3.0 (-2-2) H Melecio Test Positive Current Medications Medications (Trade) Dose Ordered Sig/Vicki Route PRN Reason Start Time Stop Time Status Last Admin Dose Admin Acetaminophen (Tylenol) 650 mg Q4H PRN NG Temp >100.5 12/06/19 14:15 01/05/20 14:14 12/10/19 04:34 Acetaminophen (Tylenol) 650 mg Q4H PRN RECTAL Mild Pain (Pain Scale 1-3) 12/04/19 11:45 01/03/20 11:44 12/06/19 19:17 Cefepime HCl 500 mg/Dextrose 50 ml @ 100 mls/hr Q24HRS IV 12/10/19 23:00 12/17/19 22:59 12/14/19 00:09 Chlorhexidine Gluconate (Arely-Hex 2%) 1 applic DAILY@2000 TOPIC 12/05/19 20:00 03/04/20 19:59 12/13/19 20:48 Dextrose (Dextrose 50%) 25 ml Q30M PRN IV Hypoglycemia 4/17/20 14:15 02/27/20 14:14 Dextrose (Dextrose 50%) 50 ml Q30M PRN IV Hypoglycemia 11/29/19 14:15 02/27/20 14:14 Fentanyl Citrate 2500 mcg/Sodium Chloride 250 ml @ 0 mls/hr Q24H IV 12/13/19 00:00 12/20/19 00:00 12/14/19 13:36 Hydralazine HCl (Apresoline) 10 mg Q4H PRN IV For High Blood Pressure 11/29/19 15:15 02/27/20 15:14 Loperamide HCl (Imodium) 2 mg Q6H PRN NG Diarrhea 12/12/19 12:45 01/11/20 12:44 Metronidazole 100 ml @ 100 mls/hr Q8HR IVPB 12/10/19 23:00 12/17/19 22:59 12/14/19 14:58 Midodrine (Pro-Amatine) 10 mg THREE TIMES A DAY ORAL 12/12/19 13:00 03/11/20 12:59 12/14/19 17:35 Norepinephrine Bitartrate 16 mg/ Dextrose 566 ml @ 0 mls/hr Q24H IV 12/06/19 09:00 01/05/20 08:59 12/14/19 01:25 Ondansetron HCl (Zofran) 4 mg Q6H PRN IVP Nausea & Vomiting 11/29/19 14:15 12/29/19 14:14 Pantoprazole (Protonix) 40 mg DAILY IVP 11/30/19 12:15 12/30/19 12:14 12/14/19 08:30 Potassium Chloride (K-Dur) 40 meq TWICE A DAY ORAL 12/11/19 09:30 03/10/20 09:29 12/14/19 17:35 Vancomycin HCl (Vanco rx to dose) 1 ea DAILY PRN MISC Per rx protocol 12/08/19 19:30 01/07/20 19:29 Vasopressin 100 units/Sodium Chloride 100 ml @ 0 mls/hr Q24H IV 12/06/19 09:00 01/05/20 08:59 12/06/19 09:03 Ilsa Rodriguez MD December 14, 2019 19:43
--- NOTE | 2019-12-14 20:00 | NUR ---
NURSE NOTES: Received pt in no acute distress;calm, asleep, sedated . Orally intubated with #8 ETT placed over right lip at 24 cm; appears to be tolerating vent settings of AC 20 TV500 fiO2 1.0 peep7; secretions thick pinkish; chest sounds with scateered rhonchi and diminished air entry; sats 100%.NGT to left nare intact, TF with nepro infuses at 35ml/h with 0 residuals. Right femoral [place] cath intact with pigtail. Levophed gtt infuses at 6mcg/min; Fentanyl gtt infuses at 200mcg/h to RASS-2. Pt appears to be lightly sedated. Moves extremities and grimaces to pain. Rectal tube in place; stools liquid brown. Pt also has PIV on Left wrist area, intact and patent. FC in place but oliguric. Will continue to monitor sedation status, vitals signs.
[2019-12-14] MEDS: Dyna-Hex 2% Top Sol 2oz TOPIC SCH (21:43)
--- NOTE | 2019-12-14 22:00 | NUR ---
HAND-OFF: NURSE NOTES: Remains calm and sedated to RASS-2 with Fentanyl at 200mcg/h. No distress.
[2019-12-15] VITALS (59 sets, daily range): BP systolic 96–124; BP diastolic 50–70
--- NOTE | 2019-12-15 | NUR ---
NURSE NOTES: Rectal temps 96. Cooling blanket on monitor mode. No distress, calm, asleep.
--- NOTE | 2019-12-15 02:00 | NUR ---
NURSE NOTES: fio2 still at 1.0 but sats at 100%. Anuric. BP stable, Levophed gtt remains at 6mcg/min
[2019-12-15] MEDS: fentaNYL Citrate 2,500 MCG in NS 200 ML IV SCH ×2 (02:52→16:00)
--- NOTE | 2019-12-15 04:00 | NUR ---
NURSE NOTES: AM care done. Placed pt on prone position with 2 RTs and 2 RNs. TF placed on hold. No change in vent settings. Siderails upx4. Right femoral QCcath intact, Lwrist PIV patent. Will monitor tolerance for proning. Afebrile. BP stable
--- NOTE | 2019-12-15 06:52 | General Progress Note ---
Assessment/Plan Problem List: (1) Elevated LFTs ICD Codes: R79.89 - Other specified abnormal findings of blood chemistry SNOMED: 320196612, 327782812 (2) HTN (hypertension) ICD Codes: I10 - Essential (primary) hypertension SNOMED: 91247878 (3) Suspected COVID-19 virus infection ICD Codes: R68.89 - Other general symptoms and signs SNOMED: 259960698 (4) Pneumonia ICD Codes: J18.9 - Pneumonia, unspecified organism SNOMED: 886041114 (5) Respiratory distress ICD Codes: R06.03 - Acute respiratory distress SNOMED: 322459130 (6) Pneumomediastinum ICD Codes: J98.2 - Interstitial emphysema SNOMED: 14322884 (7) COVID-19 ICD Codes: U07.1 - COVID-19 SNOMED: 701865318 (8) Hypotension ICD Codes: I95.9 - Hypotension, unspecified SNOMED: 06702048 Status: unchanged Assessment/Plan: NGTF rectal tube in place elevated LFTS most likely due to shock liver>>> improving repeat labs in am hepatitis panel>>>Neg abd us when off of isolation fu nephrology recent labs and notes reviewed D/W the nurse Subjective ROS Limited/Unobtainable: No Allergies: Coded Allergies: No Known Allergies (Unverified , 11/29/19) Objective Last 24 Hour Vital Signs Date Time Temp Pulse Resp B/P (MAP) Pulse Ox O2 Delivery O2 Flow Rate FiO2 12/15/19 06:00 20 Mechanical Ventilator 100 12/15/19 06:00 114/62 12/15/19 06:00 86 20 114/62 (79) 100 12/15/19 05:30 78 17 118/55 (76) 100 12/15/19 05:00 73 20 110/57 (74) 100 12/15/19 05:00 19 Mechanical Ventilator 100 12/15/19 05:00 109/57 12/15/19 05:00 69 22 100 12/15/19 04:30 71 23 124/61 (82) 100 12/15/19 04:15 79 26 100 12/15/19 04:00 74 12/15/19 04:00 96.0 71 25 124/54 (77) 100 12/15/19 04:00 100 5/3/20 04:00 Mechanical Ventilator 12/15/19 04:00 19 Mechanical Ventilator 100 12/15/19 04:00 142/62 12/15/19 03:30 72 21 108/53 (71) 100 12/15/19 03:00 72 20 115/54 (74) 100 12/15/19 03:00 20 Mechanical Ventilator 100 12/15/19 03:00 117/55 12/15/19 02:52 19 Mechanical Ventilator 100 12/15/19 02:30 75 19 114/53 (73) 100 12/15/19 02:00 75 18 114/52 (72) 100 12/15/19 02:00 20 Mechanical Ventilator 100 12/15/19 02:00 114/54 12/15/19 01:30 71 22 115/55 (75) 100 12/15/19 01:05 74 23 100 12/15/19 01:00 20 Mechanical Ventilator 100 12/15/19 01:00 113/54 12/15/19 01:00 73 21 112/54 (73) 100 12/15/19 00:30 74 21 111/54 (73) 100 12/15/19 00:00 96.0 74 19 117/50 (72) 100 12/15/19 00:00 100 12/15/19 00:00 21 Mechanical Ventilator 100 12/15/19 00:00 112/53 12/15/19 00:00 Mechanical Ventilator 12/15/19 00:00 75 12/14/19 23:30 70 21 115/59 (77) 100 12/14/19 23:00 67 20 119/53 (75) 100 12/14/19 23:00 22 Mechanical Ventilator 100 12/14/19 23:00 116/57 12/14/19 22:55 72 23 100 12/14/19 22:30 77 20 109/54 (72) 100 12/14/19 22:00 79 22 106/45 (65) 100 12/14/19 22:00 22 Mechanical Ventilator 100 12/14/19 22:00 91/46 12/14/19 21:30 75 21 115/57 (76) 100 12/14/19 21:00 78 23 100 12/14/19 21:00 22 Mechanical Ventilator 100 12/14/19 21:00 115/57 12/14/19 21:00 77 23 119/53 (75) 100 12/14/19 20:30 77 20 112/52 (72) 100 12/14/19 20:00 100 12/14/19 20:00 76 12/14/19 20:00 22 Mechanical Ventilator 100 12/14/19 20:00 110/50 5 20:00 Mechanical Ventilator 12/14/19 20:00 97.6 75 22 111/52 (71) 100 12/14/19 19:30 94 26 122/67 (85) 99 12/14/19 19:28 83 23 100 12/14/19 19:00 86 20 106/53 (70) 100 12/14/19 19:00 20 Mechanical Ventilator 100 12/14/19 19:00 106/53 12/14/19 18:45 87 15 106/52 (70) 100 12/14/19 18:33 88 16 100/55 (70) 100 12/14/19 18:30 88 17 100/55 (70) 100 12/14/19 18:15 90 16 110/53 (72) 100 12/14/19 18:00 20 Mechanical Ventilator 100 12/14/19 18:00 112/58 12/14/19 18:00 94 19 112/58 (76) 100 12/14/19 17:45 99 20 113/58 (76) 100 12/14/19 17:30 102 21 104/49 (67) 100 12/14/19 17:20 105 26 100 12/14/19 17:15 99 23 106/49 (68) 80 12/14/19 17:00 107 20 88/50 (63) 99 12/14/19 17:00 20 Mechanical Ventilator 100 12/14/19 17:00 88/60 12/14/19 16:30 104 18 120/60 (80) 99 12/14/19 16:00 110 12/14/19 16:00 Mechanical Ventilator 12/14/19 16:00 20 Mechanical Ventilator 100 12/14/19 16:00 120/63 12/14/19 16:00 99.5 107 17 120/63 (82) 100 12/14/19 15:30 110 20 110/55 (73) 99 12/14/19 15:00 34 Mechanical Ventilator 100 12/14/19 15:00 100/57 12/14/19 15:00 110 34 100/57 (71) 99 5//20 14:51 110 21 100 12/14/19 14:30 110 36 104/52 (69) 100 12/14/19 14:00 38 Mechanical Ventilator 100 12/14/19 14:00 100/58 12/14/19 14:00 110 38 100/58 (72) 100 12/14/19 13:57 100 12/14/19 13:36 32 100 12/14/19 13:30 113 33 108/57 (74) 100 12/14/19 13:30 108 20 100 12/14/19 13:00 38 Mechanical Ventilator 100 12/14/19 13:00 101/59 12/14/19 13:00 110 29 119/60 (79) 100 12/14/19 12:30 107 27 97/45 (62) 98 12/14/19 12:00 107 12/14/19 12:00 24 Mechanical Ventilator 100 12/14/19 12:00 94/48 12/14/19 12:00 Mechanical Ventilator 12/14/19 12:00 100 12/14/19 12:00 99.0 105 26 119/60 (79) 99 12/14/19 11:45 106 20 105/53 (70) 98 12/14/19 11:30 105 19 103/58 (73) 98 12/14/19 11:15 110 31 119/63 (81) 100 12/14/19 11:00 21 Mechanical Ventilator 100 12/14/19 11:00 119/63 12/14/19 11:00 107 21 106/57 (73) 99 12/14/19 10:59 105 26 100 12/14/19 10:45 106 22 99/53 (68) 98 12/14/19 10:30 106 22 89/51 (64) 98 12/14/19 10:15 106 20 90/47 (61) 99 12/14/19 10:00 104 20 90/48 (62) 99 12/14/19 10:00 20 Mechanical Ventilator 100 12/14/19 10:00 90/47 12/14/19 09:45 106 21 90/46 (61) 99 12/14/19 09:30 106 17 82/42 (55) 98 12/14/19 09:15 110 29 81/42 (55) 98 12/14/19 09:00 103 20 85/44 (58) 98 12/14/19 09:00 21 Mechanical Ventilator 100 12/14/19 09:00 81/42 12/14/19 08:50 99 22 100 12/14/19 08:45 103 18 93/44 (60) 98 12/14/19 08:36 98 17 99/45 (63) 99 12/14/19 08:30 101 19 85/46 (59) 99 12/14/19 08:15 101 19 94/45 (61) 98 12/14/19 08:00 98.2 101 19 90/48 (62) 98 12/14/19 08:00 101 12/14/19 08:00 20 Mechanical Ventilator 100 12/14/19 08:00 94/45 12/14/19 08:00 100 12/14/19 08:00 Mechanical Ventilator 12/14/19 07:45 101 20 91/47 (62) 99 12/14/19 07:30 99 22 100 12/14/19 07:30 101 20 92/44 (60) 98 12/14/19 07:15 100 19 91/45 (60) 99 12/14/19 07:00 20 Mechanical Ventilator 100 12/14/19 07:00 91/45 12/14/19 07:00 100 19 94/46 (62) 99 Intake and Output 12/14/19 12/15/19 19:00 07:00 Intake Total 920.58517 ml 995.03 ml Output Total 3055 ml 150 ml Balance -2134.80412 ml 845.03 ml Free Water 50 ml IV Total 450.74887 ml 610.03 ml Tube Feeding 420 ml 385 ml Output Urine Total 5 ml 0 ml Stool Total 50 ml 150 ml Hemodialysis UF 3000 ml Laboratory Tests 12/14/19 08:50: Arterial Blood pH 7.146*L, Arterial Blood Partial Pressure CO2 101.2*H, Arterial Blood Partial Pressure O2 193.5H, Arterial Blood HCO3 34.1H, Arterial Blood Oxygen Saturation 98.4, Arterial Blood Base Excess 3.0H, Melecio Test Positive 12/15/19 05:45: White Blood Count [Pending], Red Blood Count [Pending], Hemoglobin [Pending], Hematocrit [Pending], Mean Corpuscular Volume [Pending], Mean Corpuscular Hemoglobin [Pending], Mean Corpuscular Hemoglobin Concent [Pending], Red Cell Distribution Width [Pending], Platelet Count [Pending], Mean Platelet Volume [ Pending], Neutrophils (%) (Auto) [Pending], Lymphocytes (%) (Auto) [Pending], Monocytes (%) (Auto) [Pending], Eosinophils (%) (Auto) [Pending], Basophils (%) (Auto) [Pending], Sodium Level [Pending], Potassium Level [Pending], Chloride Level [Pending], Carbon Dioxide Level [Pending], Blood Urea Nitrogen [Pending], Creatinine [Pending], Estimat Glomerular Filtration Rate [Pending], Glucose Level [Pending], Calcium Level [Pending], Total Bilirubin [Pending], Aspartate Amino Transf (AST/SGOT) [Pending], Alanine Aminotransferase (ALT/SGPT) [Pending] , Alkaline Phosphatase [Pending], Total Protein [Pending], Albumin [Pending], Globulin [Pending], Random Vancomycin Level [Pending] Height (Feet): 5 Height (Inches): 6.00 Weight (Pounds): 159 General Appearance: lethargic EENT: normal ENT inspection Neck: supple Cardiovascular: tachycardia Respiratory/Chest: decreased breath sounds Abdomen: normal bowel sounds, non tender, soft Extremities: non-tender João Rdz MD December 15, 2019 06:52
[2019-12-15 06:54] LABS: HEMATOCRIT 33.1 % (42.0-52.0); HEMOGLOBIN 10.4 G/DL (14.2-18.0); MEAN CORPUSCULAR VOLUME 94 FL (80-99); PLATELET COUNT 160 K/UL (150-450); RED BLOOD COUNT 3.53 M/UL (4.70-6.10)
[2019-12-15 07:00] LABS: WHITE BLOOD COUNT 32.9 K/UL (4.8-10.8)
[2019-12-15 07:04] LABS: ALANINE AMINOTRANSFERASE 86 U/L (12-78); ALBUMIN 2.8 G/DL (3.4-5.0); ALBUMIN/GLOBULIN RATIO 0.8 (1.0-2.7); ALKALINE PHOSPHATASE 258 U/L (46-116); ANION GAP 6 mmol/L (5-15); ASPARTATE AMINO TRANSFERASE 64 U/L (15-37); BLOOD UREA NITROGEN 55 mg/dL (7-18); CALCIUM 9.4 MG/DL (8.5-10.1); CARBON DIOXIDE 31 MMOL/L (21-32); CHLORIDE 105 MMOL/L (98-107); CREATININE 4.5 MG/DL (0.55-1.30); POTASSIUM 4.6 MMOL/L (3.5-5.1); SODIUM 142 MMOL/L (136-145)
--- NOTE | 2019-12-15 07:22 | NUR ---
HAND-OFF: Report given to Ellen Murphy RN.
--- NOTE | 2019-12-15 07:23 | NUR ---
NURSE NOTES: Received patient from DARYA Ortiz. Patient blood pressure 123/63 on levophed at 6mcg/min. Will titrate per protocol as needed. patient orally intubated with ventilator setting AC 20, tidal volume 500, FiO2 100%, and PEEP 7. Patient in prone position at this time. patient tolerating with FiO2 100% and RR 25. patient sedated with RASS score -2 on fentanyl at 200mcg/hr. Patient has oral gastric tube that is patent, asymptomatic, and clamped at this time. Will resume feeding of Nepro at 35mL/hr. No residual noted at this time. patient has been NPO since 399. Patient has left wrist 20 gauge peripheral IV that is patent, asymptomatic, and saline locked at this time. patient has right femoral jia catheter with pigtail that is patent, asymptomatic, and running levophed and fentanyl. Dressing dry and intact. NO hemodialysis ordered for today. Patient has barnes for urine retention with minimal output noted a this time. Patient bed in low position with bed alarm on and call light in reach at this time. Oral care performed. Will continue to monitor.
[2019-12-15] MEDS: Vasopressin 100 UNITS in NS 95 ML IV SCH (09:00)
[2019-12-15] MEDS: Norepinephrine Bitartrate 16 MG in D5W 500ml 550 ML IV SCH ×2 (09:00→16:39)
[2019-12-15] MEDS: Pantoprazole Inj IVP SCH (09:12)
[2019-12-15] MEDS: Midodrine 10mg tab ORAL SCH ×3 (09:12→18:00)
[2019-12-15] MEDS ORDERED: Vancomycin 1gm/D5W 275ml IVPB ONE ×2 (10:00)
--- NOTE | 2019-12-15 10:00 | NUR ---
NURSE NOTES: Patient vital signs stable. Blood pressure stable on 6mcg/min levophed. Will continue to monitor. remains prone. Will continue to monitor.
--- NOTE | 2019-12-15 10:24 | Urology Progress Note ---
Assessment/Plan Status: unchanged Assessment/Plan: 1. Phimosis. 2. Retention. 3. Hematuria. 4. Pyuria. 5. Proteinuria. 6. Acute kidney injury. 7. Meatal stenosis. monitor clinically maintain barnes, placed 12/04 hand irrigate PRN monitor urine output and renal fxn consider renal imaging abx as ordered HD per nephrology f/u on last blood cx Subjective Allergies: Coded Allergies: No Known Allergies (Unverified , 11/29/19) Subjective remains on vent, still with minimal urine output, HD Objective Last 24 Hour Vital Signs Date Time Temp Pulse Resp B/P (MAP) Pulse Ox O2 Delivery O2 Flow Rate FiO2 12/15/19 09:30 95 12 117/60 (79) 100 12/15/19 09:04 84 22 100 12/15/19 09:00 92 12 119/59 (79) 100 12/15/19 09:00 116/58 12/15/19 08:30 84 11 115/58 (77) 100 12/15/19 08:00 82 12/15/19 08:00 82 14 113/64 (80) 100 12/15/19 08:00 100 12/15/19 07:30 82 13 114/55 (74) 100 12/15/19 07:15 80 11 115/60 (78) 100 12/15/19 07:00 83 16 111/60 (77) 100 12/15/19 06:50 78 22 100 12/15/19 06:30 86 15 115/58 (77) 100 12/15/19 06:00 20 Mechanical Ventilator 100 12/15/19 06:00 114/62 12/15/19 06:00 86 20 114/62 (79) 100 12/15/19 05:30 78 17 118/55 (76) 100 12/15/19 05:00 73 20 110/57 (74) 100 12/15/19 05:00 19 Mechanical Ventilator 100 12/15/19 05:00 109/57 12/15/19 05:00 69 22 100 12/15/19 04:30 71 23 124/61 (82) 100 12/15/19 04:30 71 23 124/61 (82) 100 12/15/19 04:15 79 26 100 12/15/19 04:00 74 12/15/19 04:00 96.0 71 25 124/54 (77) 100 12/15/19 04:00 100 12/15/19 04:00 Mechanical Ventilator 12/15/19 04:00 19 Mechanical Ventilator 100 12/15/19 04:00 142/62 12/15/19 03:30 72 21 108/53 (71) 100 12/15/19 03:00 72 20 115/54 (74) 100 12/15/19 03:00 20 Mechanical Ventilator 100 12/15/19 03:00 117/55 12/15/19 02:52 19 Mechanical Ventilator 100 12/15/19 02:30 75 19 114/53 (73) 100 12/15/19 02:00 75 18 114/52 (72) 100 12/15/19 02:00 20 Mechanical Ventilator 100 12/15/19 02:00 114/54 12/15/19 01:30 71 22 115/55 (75) 100 12/15/19 01:05 74 23 100 12/15/19 01:00 20 Mechanical Ventilator 100 12/15/19 01:00 113/54 12/15/19 01:00 73 21 112/54 (73) 100 12/15/19 00:30 74 21 111/54 (73) 100 12/15/19 00:00 96.0 74 19 117/50 (72) 100 12/15/19 00:00 100 12/15/19 00:00 21 Mechanical Ventilator 100 12/15/19 00:00 112/53 12/15/19 00:00 Mechanical Ventilator 12/15/19 00:00 75 12/14/19 23:30 70 21 115/59 (77) 100 12/14/19 23:00 67 20 119/53 (75) 100 12/14/19 23:00 22 Mechanical Ventilator 100 12/14/19 23:00 116/57 12/14/19 22:55 72 23 100 12/14/19 22:30 77 20 109/54 (72) 100 12/14/19 22:00 79 22 106/45 (65) 100 12/14/19 22:00 22 Mechanical Ventilator 100 12/14/19 22:00 91/46 12/14/19 21:30 75 21 115/57 (76) 100 12/14/19 21:00 78 23 100 12/14/19 21:00 22 Mechanical Ventilator 100 12/14/19 21:00 115/57 12/14/19 21:00 77 23 119/53 (75) 100 12/14/19 20:30 77 20 112/52 (72) 100 12/14/19 20:00 100 12/14/19 20:00 76 12/14/19 20:00 22 Mechanical Ventilator 100 12/14/19 20:00 110/50 12/14/19 20:00 Mechanical Ventilator 12/14/19 20:00 97.6 75 22 111/52 (71) 100 12/14/19 19:30 94 26 122/67 (85) 99 12/14/19 19:28 83 23 100 12/14/19 19:00 86 20 106/53 (70) 100 12/14/19 19:00 20 Mechanical Ventilator 100 12/14/19 19:00 106/53 12/14/19 18:45 87 15 106/52 (70) 100 12/14/19 18:33 88 16 100/55 (70) 100 12/14/19 18:30 88 17 100/55 (70) 100 12/14/19 18:15 90 16 110/53 (72) 100 12/14/19 18:00 20 Mechanical Ventilator 100 12/14/19 18:00 112/58 12/14/19 18:00 94 19 112/58 (76) 100 12/14/19 17:45 99 20 113/58 (76) 100 12/14/19 17:30 102 21 104/49 (67) 100 12/14/19 17:20 105 26 100 12/14/19 17:15 99 23 106/49 (68) 80 12/14/19 17:00 107 20 88/50 (63) 99 12/14/19 17:00 20 Mechanical Ventilator 100 12/14/19 17:00 88/60 12/14/19 16:30 104 18 120/60 (80) 99 12/14/19 16:00 110 12/14/19 16:00 Mechanical Ventilator 12/14/19 16:00 20 Mechanical Ventilator 100 12/14/19 16:00 120/63 12/14/19 16:00 99.5 107 17 120/63 (82) 100 12/14/19 15:30 110 20 110/55 (73) 99 12/14/19 15:00 34 Mechanical Ventilator 100 12/14/19 15:00 100/57 12/14/19 15:00 110 34 100/57 (71) 99 12/14/19 14:51 110 21 100 12/14/19 14:30 110 36 104/52 (69) 100 12/14/19 14:00 38 Mechanical Ventilator 100 12/14/19 14:00 100/58 12/14/19 14:00 110 38 100/58 (72) 100 12/14/19 13:57 100 12/14/19 13:36 32 100 12/14/19 13:30 113 33 108/57 (74) 100 12/14/19 13:30 108 20 100 12/14/19 13:00 38 Mechanical Ventilator 100 12/14/19 13:00 101/59 12/14/19 13:00 110 29 119/60 (79) 100 12/14/19 12:30 107 27 97/45 (62) 98 12/14/19 12:00 107 12/14/19 12:00 24 Mechanical Ventilator 100 12/14/19 12:00 94/48 12/14/19 12:00 Mechanical Ventilator 12/14/19 12:00 100 12/14/19 12:00 99.0 105 26 119/60 (79) 99 12/14/19 11:45 106 20 105/53 (70) 98 12/14/19 11:30 105 19 103/58 (73) 98 12/14/19 11:15 110 31 119/63 (81) 100 12/14/19 11:00 21 Mechanical Ventilator 100 12/14/19 11:00 119/63 12/14/19 11:00 107 21 106/57 (73) 99 12/14/19 10:59 105 26 100 12/14/19 10:45 106 22 99/53 (68) 98 12/14/19 10:30 106 22 89/51 (64) 98 Intake and Output 12/14/19 12/15/19 19:00 07:00 Intake Total 920.74319 ml 995.03 ml Output Total 3055 ml 150 ml Balance -2134.82277 ml 845.03 ml Free Water 50 ml IV Total 450.62691 ml 610.03 ml Tube Feeding 420 ml 385 ml Output Urine Total 5 ml 0 ml Stool Total 50 ml 150 ml Hemodialysis UF 3000 ml Microbiology Date/Time Source Procedure Growth Status 4/28/20 21:15 Blood Blood Culture - Preliminary NO GROWTH AFTER 4 DAYS Resulted 12/11/19 22:50 Sputum Gram Stain - Final Complete 12/11/19 22:50 Sputum Sputum Culture - Final NORMAL UPPER RESPIRATORY ALISIA AT 48 ... Complete 12/11/19 22:50 Stool Clostridium difficile Toxin Assay - Final Complete 12/11/19 20:33 Indwelling Cath Urine Culture - Final NO GROWTH AFTER 48 HOURS Complete Current Medications Medications (Trade) Dose Ordered Sig/Vicki Route PRN Reason Start Time Stop Time Status Last Admin Dose Admin Acetaminophen (Tylenol) 650 mg Q4H PRN NG Temp >100.5 12/06/19 14:15 01/05/20 14:14 12/10/19 04:34 Acetaminophen (Tylenol) 650 mg Q4H PRN RECTAL Mild Pain (Pain Scale 1-3) 12/04/19 11:45 01/03/20 11:44 12/06/19 19:17 Cefepime HCl 500 mg/Dextrose 50 ml @ 100 mls/hr Q24HRS IV 12/10/19 23:00 12/17/19 22:59 12/14/19 23:15 Chlorhexidine Gluconate (Arely-Hex 2%) 1 applic DAILY@2000 TOPIC 12/05/19 20:00 03/04/20 19:59 12/14/19 21:43 Dextrose (Dextrose 50%) 25 ml Q30M PRN IV Hypoglycemia 11/29/19 14:15 02/27/20 14:14 Dextrose (Dextrose 50%) 50 ml Q30M PRN IV Hypoglycemia 11/29/19 14:15 02/27/20 14:14 Fentanyl Citrate 2500 mcg/Sodium Chloride 250 ml @ 0 mls/hr Q24H IV 12/13/19 00:00 12/20/19 00:00 12/15/19 02:52 Hydralazine HCl (Apresoline) 10 mg Q4H PRN IV For High Blood Pressure 11/29/19 15:15 02/27/20 15:14 Loperamide HCl (Imodium) 2 mg Q6H PRN NG Diarrhea 12/12/19 12:45 01/11/20 12:44 Metronidazole 100 ml @ 100 mls/hr Q8HR IVPB 12/10/19 23:00 12/17/19 22:59 5/3/20 05:46 Midodrine (Pro-Amatine) 10 mg THREE TIMES A DAY ORAL 12/12/19 13:00 03/11/20 12:59 12/15/19 09:12 Norepinephrine Bitartrate 16 mg/ Dextrose 566 ml @ 0 mls/hr Q24H IV 12/06/19 09:00 01/05/20 08:59 12/14/19 01:25 Ondansetron HCl (Zofran) 4 mg Q6H PRN IVP Nausea & Vomiting 11/29/19 14:15 12/29/19 14:14 Pantoprazole (Protonix) 40 mg DAILY IVP 11/30/19 12:15 12/30/19 12:14 12/15/19 09:12 Potassium Chloride (K-Dur) 40 meq TWICE A DAY ORAL 12/11/19 09:30 03/10/20 09:29 12/14/19 17:35 Vancomycin HCl (Vanco rx to dose) 1 ea DAILY PRN MISC Per rx protocol 12/08/19 19:30 01/07/20 19:29 Vancomycin HCl 1 gm/Dextrose 275 ml @ 183.708 mls/hr ONCE ONCE IVPB 12/15/19 10:00 12/15/19 11:29 12/15/19 09:14 Vasopressin 100 units/Sodium Chloride 100 ml @ 0 mls/hr Q24H IV 12/06/19 09:00 01/05/20 08:59 12/06/19 09:03 Laboratory Tests 12/15/19 05:45: White Blood Count 32.9*H, Red Blood Count 3.53L, Hemoglobin 10.4L, Hematocrit 33.1L, Mean Corpuscular Volume 94, Mean Corpuscular Hemoglobin 29.5, Mean Corpuscular Hemoglobin Concent 31.5L, Red Cell Distribution Width 14.0, Platelet Count 160, Mean Platelet Volume 9.1, Neutrophils (%) (Auto) , Lymphocytes (%) (Auto) , Monocytes (%) (Auto) , Eosinophils (%) (Auto) , Basophils (%) (Auto) , Neutrophils % (Manual) [Pending], Lymphocytes % (Manual) [Pending], Platelet Estimate [Pending], Platelet Morphology [Pending], Sodium Level 142, Potassium Level 4.6, Chloride Level 105, Carbon Dioxide Level 31, Anion Gap 6, Blood Urea Nitrogen 55H, Creatinine 4.5H, Estimat Glomerular Filtration Rate 13.5, Glucose Level 166H, Calcium Level 9.4, Total Bilirubin 1.0 , Aspartate Amino Transf (AST/SGOT) 64H, Alanine Aminotransferase (ALT/SGPT) 86H , Alkaline Phosphatase 258H, Total Protein 6.3L, Albumin 2.8L, Globulin 3.5, Albumin/Globulin Ratio 0.8L, Random Vancomycin Level 7.9 Height (Feet): 5 Height (Inches): 6.00 Weight (Pounds): 159 Objective stable no bleeding at prepuce barnes indwelling, marge urine Kai Berger MD December 15, 2019 10:24
--- NOTE | 2019-12-15 10:31 | General Progress Note ---
Assessment/Plan Status: unchanged Assessment/Plan: 59-year-old male with PMH of HTN presents with acute respiratory distress. #Acute Hypoxic Respiratory Failure s/p intubation #Severe sepsis #COVID19 positive #CAP #elevated d-dimer #Fevers - improved -Appreciate ICU level of care -s/p Intubation 12/03 -vent management per Pulm/ICU/CCM team -cont. droplet & isolation precautions -Transaminitis/d-dimer/fluctuating fevers likely reactive/ 2/2 COVID -cont. to monitor LFTs -sedation per pulm/ICU -s/p hydroxychloroquine -s/p actrema -prone position per Pulm -Pulm following, recs appreciated -ID, Dr. Rodriguez, following: Vanc, cefepime, flagyl -cont. current management per ID/Pulm #loose stools -c diff negative -d/c PO vanco -immodium PRN #Pneumomediastinum #Subcutaneous emphysema -seen on abd XR -pt too high risk for bedside thoracostomy -d/w general sx and pulm/ICU #ALBARO #Hypernatremia #Hyperkalemia -likely 2/2 to above, COVID -s/p kayexalate, insulin, D5 for hyperkalemia -cont. to montior -12/04: femoral HD cath placed -d/w Nephdeni, Dr. Soriano: HD per nephro, plan for HD again today #Transaminitis #Shock Liver -improved -likely 2/2 to above/COVID -LFTs improving, ctm -abd us when off isolation -cont. NGT feeds -GI, Dr. Rdz, following, recs appreciated #Sinus Tachycardia 2/2 respiratory failure #HTN -hydralazine PRN -Cardio, , following: Echo after COVID negative DVT PPX: Lovenox Pt is at high risk of rapid decompensation and requires continued ICU level of care Prognosis grave/poor Time spent on encounter: 50 mins, 30 mins spent on coordination of care, reviewing tele monitor, discussed w/DARYA Duckworth. Critical Care Services performed include: Telemetry Review Hemodynamic measurement interpretation Laboratory data review and interpretation Radiology image review and interpretation Interpretation of ABG's Discussion of patient's care with ICU team, Nursing staff and/or consulting services, ID, Dr Rodriguez. Time of note doesn't reflect time of encounter. Subjective Allergies: Coded Allergies: No Known Allergies (Unverified , 11/29/19) Subjective Follow up for acute hypoxic resp failure, COVID19 positive, intubation/sedated, multi-organ failure. Remains on pressure support, decreased Levo from 6 to 4 today. Remains on sedation however, per nurse, pt responsive when turning from supine to prone this AM. s/p HD yesterday, plan for HD again today. Pt remains intubated, unable to obtain ROS due to clinical picture. Objective Last 24 Hour Vital Signs Date Time Temp Pulse Resp B/P (MAP) Pulse Ox O2 Delivery O2 Flow Rate FiO2 12/15/19 09:30 95 12 117/60 (79) 100 12/15/19 09:04 84 22 100 12/15/19 09:00 92 12 119/59 (79) 100 12/15/19 09:00 116/58 12/15/19 08:30 84 11 115/58 (77) 100 12/15/19 08:00 82 12/15/19 08:00 82 14 113/64 (80) 100 12/15/19 08:00 100 12/15/19 07:30 82 13 114/55 (74) 100 12/15/19 07:15 80 11 115/60 (78) 100 12/15/19 07:00 83 16 111/60 (77) 100 12/15/19 06:50 78 22 100 12/15/19 06:30 86 15 115/58 (77) 100 12/15/19 06:00 20 Mechanical Ventilator 100 12/15/19 06:00 114/62 12/15/19 06:00 86 20 114/62 (79) 100 12/15/19 05:30 78 17 118/55 (76) 100 12/15/19 05:00 73 20 110/57 (74) 100 12/15/19 05:00 19 Mechanical Ventilator 100 12/15/19 05:00 109/57 12/15/19 05:00 69 22 100 12/15/19 04:30 71 23 124/61 (82) 100 12/15/19 04:30 71 23 124/61 (82) 100 12/15/19 04:15 79 26 100 12/15/19 04:00 74 12/15/19 04:00 96.0 71 25 124/54 (77) 100 12/15/19 04:00 100 12/15/19 04:00 Mechanical Ventilator 12/15/19 04:00 19 Mechanical Ventilator 100 12/15/19 04:00 142/62 12/15/19 03:30 72 21 108/53 (71) 100 12/15/19 03:00 72 20 115/54 (74) 100 12/15/19 03:00 20 Mechanical Ventilator 100 12/15/19 03:00 117/55 12/15/19 02:52 19 Mechanical Ventilator 100 12/15/19 02:30 75 19 114/53 (73) 100 12/15/19 02:00 75 18 114/52 (72) 100 12/15/19 02:00 20 Mechanical Ventilator 100 12/15/19 02:00 114/54 12/15/19 01:30 71 22 115/55 (75) 100 12/15/19 01:05 74 23 100 12/15/19 01:00 20 Mechanical Ventilator 100 12/15/19 01:00 113/54 12/15/19 01:00 73 21 112/54 (73) 100 12/15/19 00:30 74 21 111/54 (73) 100 12/15/19 00:00 96.0 74 19 117/50 (72) 100 12/15/19 00:00 100 12/15/19 00:00 21 Mechanical Ventilator 100 12/15/19 00:00 112/53 12/15/19 00:00 Mechanical Ventilator 12/15/19 00:00 75 12/14/19 23:30 70 21 115/59 (77) 100 12/14/19 23:00 67 20 119/53 (75) 100 12/14/19 23:00 22 Mechanical Ventilator 100 12/14/19 23:00 116/57 12/14/19 22:55 72 23 100 12/14/19 22:30 77 20 109/54 (72) 100 12/14/19 22:00 79 22 106/45 (65) 100 12/14/19 22:00 22 Mechanical Ventilator 100 12/14/19 22:00 91/46 12/14/19 21:30 75 21 115/57 (76) 100 12/14/19 21:00 78 23 100 12/14/19 21:00 22 Mechanical Ventilator 100 12/14/19 21:00 115/57 12/14/19 21:00 77 23 119/53 (75) 100 12/14/19 20:30 77 20 112/52 (72) 100 12/14/19 20:00 100 12/14/19 20:00 76 12/14/19 20:00 22 Mechanical Ventilator 100 12/14/19 20:00 110/50 12/14/19 20:00 Mechanical Ventilator 12/14/19 20:00 97.6 75 22 111/52 (71) 100 12/14/19 19:30 94 26 122/67 (85) 99 12/14/19 19:28 83 23 100 12/14/19 19:00 86 20 106/53 (70) 100 12/14/19 19:00 20 Mechanical Ventilator 100 12/14/19 19:00 106/53 12/14/19 18:45 87 15 106/52 (70) 100 12/14/19 18:33 88 16 100/55 (70) 100 12/14/19 18:30 88 17 100/55 (70) 100 12/14/19 18:15 90 16 110/53 (72) 100 12/14/19 18:00 20 Mechanical Ventilator 100 12/14/19 18:00 112/58 12/14/19 18:00 94 19 112/58 (76) 100 12/14/19 17:45 99 20 113/58 (76) 100 12/14/19 17:30 102 21 104/49 (67) 100 12/14/19 17:20 105 26 100 12/14/19 17:15 99 23 106/49 (68) 80 12/14/19 17:00 107 20 88/50 (63) 99 12/14/19 17:00 20 Mechanical Ventilator 100 12/14/19 17:00 88/60 12/14/19 16:30 104 18 120/60 (80) 99 12/14/19 16:00 110 12/14/19 16:00 Mechanical Ventilator 12/14/19 16:00 20 Mechanical Ventilator 100 12/14/19 16:00 120/63 12/14/19 16:00 99.5 107 17 120/63 (82) 100 12/14/19 15:30 110 20 110/55 (73) 99 12/14/19 15:00 34 Mechanical Ventilator 100 12/14/19 15:00 100/57 12/14/19 15:00 110 34 100/57 (71) 99 12/14/19 14:51 110 21 100 12/14/19 14:30 110 36 104/52 (69) 100 12/14/19 14:00 38 Mechanical Ventilator 100 12/14/19 14:00 100/58 12/14/19 14:00 110 38 100/58 (72) 100 12/14/19 13:57 100 12/14/19 13:36 32 100 12/14/19 13:30 113 33 108/57 (74) 100 12/14/19 13:30 108 20 100 12/14/19 13:00 38 Mechanical Ventilator 100 12/14/19 13:00 101/59 12/14/19 13:00 110 29 119/60 (79) 100 12/14/19 12:30 107 27 97/45 (62) 98 12/14/19 12:00 107 12/14/19 12:00 24 Mechanical Ventilator 100 12/14/19 12:00 94/48 12/14/19 12:00 Mechanical Ventilator 12/14/19 12:00 100 12/14/19 12:00 99.0 105 26 119/60 (79) 99 12/14/19 11:45 106 20 105/53 (70) 98 12/14/19 11:30 105 19 103/58 (73) 98 12/14/19 11:15 110 31 119/63 (81) 100 12/14/19 11:00 21 Mechanical Ventilator 100 12/14/19 11:00 119/63 12/14/19 11:00 107 21 106/57 (73) 99 12/14/19 10:59 105 26 100 12/14/19 10:45 106 22 99/53 (68) 98 Intake and Output 12/14/19 12/15/19 19:00 07:00 Intake Total 920.89936 ml 995.03 ml Output Total 3055 ml 150 ml Balance -2134.13068 ml 845.03 ml Free Water 50 ml IV Total 450.65624 ml 610.03 ml Tube Feeding 420 ml 385 ml Output Urine Total 5 ml 0 ml Stool Total 50 ml 150 ml Hemodialysis UF 3000 ml Laboratory Tests 12/15/19 05:45: White Blood Count 32.9*H, Red Blood Count 3.53L, Hemoglobin 10.4L, Hematocrit 33.1L, Mean Corpuscular Volume 94, Mean Corpuscular Hemoglobin 29.5, Mean Corpuscular Hemoglobin Concent 31.5L, Red Cell Distribution Width 14.0, Platelet Count 160, Mean Platelet Volume 9.1, Neutrophils (%) (Auto) , Lymphocytes (%) (Auto) , Monocytes (%) (Auto) , Eosinophils (%) (Auto) , Basophils (%) (Auto) , Neutrophils % (Manual) [Pending], Lymphocytes % (Manual) [Pending], Platelet Estimate [Pending], Platelet Morphology [Pending], Sodium Level 142, Potassium Level 4.6, Chloride Level 105, Carbon Dioxide Level 31, Anion Gap 6, Blood Urea Nitrogen 55H, Creatinine 4.5H, Estimat Glomerular Filtration Rate 13.5, Glucose Level 166H, Calcium Level 9.4, Total Bilirubin 1.0 , Aspartate Amino Transf (AST/SGOT) 64H, Alanine Aminotransferase (ALT/SGPT) 86H , Alkaline Phosphatase 258H, Total Protein 6.3L, Albumin 2.8L, Globulin 3.5, Albumin/Globulin Ratio 0.8L, Random Vancomycin Level 7.9 Height (Feet): 5 Height (Inches): 6.00 Weight (Pounds): 159 Objective General Appearance: intubated, OG tube in place, in prone position Cardiovascular: RRR on tele Respiratory/Chest: ETT in place, equal rise in lungs b/l Abdomen: non distended Ext: no edema noted Theodore Aguayo M.D. December 15, 2019 10:31
--- NOTE | 2019-12-15 12:15 | NUR ---
RESPIRATORY NOTE: Pt back on supine position with DARYA German and two other RNs. When DARYA German changed the tape for NG tube, noted a new wound at the bottom of the left nose (on top of the anchor fast) and another new wound on the left tip of the nose where the NG tube was placed, covered by tape. DARYA German at bedside and aware. We cleaned and place gauzes between the NG tube and the wound, and another gauze between anchor fast and the other wound.
--- NOTE | 2019-12-15 12:30 | NUR ---
NURSE NOTES: Patient blood pressure 96/51, levophed increased to 10mcg/min by light technician. Will titrate per protocol as needed. patient remains orally intubated with ventilator setting AC 20, tidal volume 500, FiO2 100%, and PEEP 7. Patient turned to supine position and elevated to semi-fowlers by 3 RN and RT at 1215. Patient stable with FiO2 100% and RR 25. patient remains sedated with RASS score -2 on fentanyl at 200mcg/hr. Oral gastric tube remains patent, asymptomatic, and running Nepro at 35mL/hr. No residual noted. Left wrist 20 gauge peripheral IV that is patent, asymptomatic, and saline locked at this time. Right femoral jia catheter with pigtail patent, asymptomatic, and running levophed and fentanyl. Dressing dry and intact. Patient started on hemodialysis by Hari light technician at this time. Joe patent, asymptomatic, and draining at this time. Patient bed in low position with bed alarm on and call light in reach at this time. Oral care performed. Will continue to monitor.
--- NOTE | 2019-12-15 14:00 | NUR ---
NURSE NOTES: Patient remains on hemodialysis. Blood pressure 113/68 on levophed at 10mcg/min. Will continue to monitor. Patient repositioned. New wound discovered on left nares and upper lip. Wound care orders placed. Gauze placed to prevent further injury. Will ensure drawstring knotter notified.
[2019-12-15] MEDS ORDERED: Tubing IV Secondary IV ONE ×6 (14:05→16:06)
[2019-12-15] MEDS ORDERED: NS 275ml ONE ×6 (14:05→16:06)
[2019-12-15] MEDS ORDERED: D5W 275ml ONE (14:05)
[2019-12-15] MEDS ORDERED: NS 500ML ONE (14:07)
[2019-12-15] MEDS ORDERED: Sterile Water Irrig 1000ml IRRIG ONE (14:16)
[2019-12-15] MEDS ORDERED: D5W 550ml IV ONE (14:22)
--- NOTE | 2019-12-15 16:00 | NUR ---
NURSE NOTES: Patient remains on hemodialysis. Vital signs stable. Patient blood pressure 116/67 with levophed running at 10mcg/min. Will titrate per protocol as needed. patient remains orally intubated with ventilator setting AC 20, tidal volume 500, FiO2 100%, and PEEP 7. Patient stable with FiO2 100% and RR 25. patient remains sedated with RASS score -2 on fentanyl at 200mcg/hr. Oral gastric tube remains patent, asymptomatic, and running Nepro at 35mL/hr. No residual noted. Left wrist 20 gauge peripheral IV remains patent, asymptomatic, and saline locked at this time. Right femoral jia catheter with pigtail remains patent, asymptomatic, and running levophed and fentanyl. Dressing dry and intact. Joe patent, asymptomatic, and draining at this time. Patient bed in low position with bed alarm on and call light in reach at this time. Oral care performed. Will continue to monitor.
--- NOTE | 2019-12-15 17:21 | Pulmonology Progress Note ---
Assessment/Plan Assessment/Plan IMPRESSION: 1. Bilateral pneumonia. 2. Positive COVID-19. 3. Respiratory failure. DISCUSSION: Intubated On AC 20; FiO2 100; PEEP 10; SaO2 99% Abd Xray shows mediastinal PTX Recent CXR 12/06; no PTX or pneumomediastinum seen Repeat CXR today again shows mediastinal PTX Continue proning On Fentanyl due to high triglycerides Continue proning as heart rate tolerates Saturations are better Grave prognosis I will follow carefully. On HD now S/p Actemra Blood CS ? contaminant Needs ongoing HD; more ultrafiltration Urine CS negative Sushil Cortes M.D. Subjective ROS Limited/Unobtainable: No Interval Events: Intubated ;proning continuing Constitutional: Reports: fever - less, other - on vent and pressors HEENT: Repors: no symptoms Respiratory: Reports: no symptoms Cardiovascular: Reports: no symptoms Gastrointestinal/Abdominal: Denies: nausea, vomiting, diarrhea Genitourinary: Reports: no symptoms Psychiatric: Reports: other - NA Skin: Denies: rash Musculoskeletal: Reports: other - NA Allergies: Coded Allergies: No Known Allergies (Unverified , 11/29/19) All Systems: reviewed and negative except above Objective Last 24 Hour Vital Signs Date Time Temp Pulse Resp B/P (MAP) Pulse Ox O2 Delivery O2 Flow Rate FiO2 12/15/19 16:39 116/67 12/15/19 16:00 Mechanical Ventilator 12/15/19 16:00 100 12/15/19 16:00 99.6 104 16 108/63 (78) 100 12/15/19 16:00 24 Mechanical Ventilator 100 12/15/19 15:45 102 18 109/65 (80) 100 12/15/19 15:30 100 16 114/63 (80) 100 12/15/19 15:15 99 17 107/66 (80) 100 12/15/19 15:15 99 24 100 12/15/19 15:00 101 17 96/57 (70) 100 12/15/19 14:45 99 15 103/64 (77) 100 12/15/19 14:30 98 16 114/63 (80) 100 12/15/19 14:15 96 17 113/68 (83) 100 12/15/19 14:00 95 19 111/54 (73) 100 12/15/19 13:45 91 18 108/65 (79) 100 12/15/19 13:30 90 20 105/63 (77) 100 12/15/19 13:15 94 21 105/54 (71) 100 12/15/19 13:04 94 20 100 12/15/19 13:00 94 20 103/54 (70) 100 12/15/19 12:45 96 21 96/51 (66) 100 12/15/19 12:30 93 20 108/54 (72) 100 12/15/19 12:15 98.6 90 22 106/51 (69) 100 12/15/19 12:00 91 21 106/51 (69) 100 12/15/19 12:00 88 12/15/19 12:00 100 12/15/19 12:00 Mechanical Ventilator 12/15/19 11:30 96 21 117/62 (80) 100 12/15/19 11:00 95 21 110/62 (78) 100 12/15/19 10:51 95 20 100 12/15/19 10:30 95 21 116/55 (75) 100 12/15/19 10:00 96 18 114/53 (73) 100 12/15/19 09:30 95 12 117/60 (79) 100 12/15/19 09:04 84 22 100 12/15/19 09:00 92 12 119/59 (79) 100 12/15/19 09:00 116/58 12/15/19 08:30 84 11 115/58 (77) 100 12/15/19 08:00 82 12/15/19 08:00 97.6 12/15/19 08:00 82 14 113/64 (80) 100 12/15/19 08:00 Mechanical Ventilator 12/15/19 08:00 100 12/15/19 07:30 82 13 114/55 (74) 100 12/15/19 07:15 80 11 115/60 (78) 100 12/15/19 07:00 83 16 111/60 (77) 100 12/15/19 06:50 78 22 100 12/15/19 06:30 86 15 115/58 (77) 100 12/15/19 06:00 20 Mechanical Ventilator 100 12/15/19 06:00 114/62 12/15/19 06:00 86 20 114/62 (79) 100 12/15/19 05:30 78 17 118/55 (76) 100 12/15/19 05:00 73 20 110/57 (74) 100 12/15/19 05:00 19 Mechanical Ventilator 100 12/15/19 05:00 109/57 12/15/19 05:00 69 22 100 12/15/19 04:30 71 23 124/61 (82) 100 12/15/19 04:30 71 23 124/61 (82) 100 12/15/19 04:15 79 26 100 12/15/19 04:00 74 12/15/19 04:00 96.0 71 25 124/54 (77) 100 12/15/19 04:00 100 12/15/19 04:00 Mechanical Ventilator 12/15/19 04:00 19 Mechanical Ventilator 100 12/15/19 04:00 142/62 12/15/19 03:30 72 21 108/53 (71) 100 12/15/19 03:00 72 20 115/54 (74) 100 12/15/19 03:00 20 Mechanical Ventilator 100 12/15/19 03:00 117/55 12/15/19 02:52 19 Mechanical Ventilator 100 12/15/19 02:30 75 19 114/53 (73) 100 12/15/19 02:00 75 18 114/52 (72) 100 12/15/19 02:00 20 Mechanical Ventilator 100 12/15/19 02:00 114/54 12/15/19 01:30 71 22 115/55 (75) 100 12/15/19 01:05 74 23 100 12/15/19 01:00 20 Mechanical Ventilator 100 12/15/19 01:00 113/54 12/15/19 01:00 73 21 112/54 (73) 100 12/15/19 00:30 74 21 111/54 (73) 100 12/15/19 00:00 96.0 74 19 117/50 (72) 100 12/15/19 00:00 100 12/15/19 00:00 21 Mechanical Ventilator 100 12/15/19 00:00 112/53 12/15/19 00:00 Mechanical Ventilator 12/15/19 00:00 75 12/14/19 23:30 70 21 115/59 (77) 100 12/14/19 23:00 67 20 119/53 (75) 100 12/14/19 23:00 22 Mechanical Ventilator 100 12/14/19 23:00 116/57 12/14/19 22:55 72 23 100 12/14/19 22:30 77 20 109/54 (72) 100 12/14/19 22:00 79 22 106/45 (65) 100 12/14/19 22:00 22 Mechanical Ventilator 100 12/14/19 22:00 91/46 12/14/19 21:30 75 21 115/57 (76) 100 12/14/19 21:00 78 23 100 12/14/19 21:00 22 Mechanical Ventilator 100 12/14/19 21:00 115/57 12/14/19 21:00 77 23 119/53 (75) 100 12/14/19 20:30 77 20 112/52 (72) 100 12/14/19 20:00 100 12/14/19 20:00 76 12/14/19 20:00 22 Mechanical Ventilator 100 12/14/19 20:00 110/50 12/14/19 20:00 Mechanical Ventilator 12/14/19 20:00 97.6 75 22 111/52 (71) 100 12/14/19 19:30 94 26 122/67 (85) 99 12/14/19 19:28 83 23 100 12/14/19 19:00 86 20 106/53 (70) 100 12/14/19 19:00 20 Mechanical Ventilator 100 12/14/19 19:00 106/53 12/14/19 18:45 87 15 106/52 (70) 100 12/14/19 18:33 88 16 100/55 (70) 100 12/14/19 18:30 88 17 100/55 (70) 100 12/14/19 18:15 90 16 110/53 (72) 100 12/14/19 18:00 20 Mechanical Ventilator 100 12/14/19 18:00 112/58 12/14/19 18:00 94 19 112/58 (76) 100 12/14/19 17:45 99 20 113/58 (76) 100 12/14/19 17:30 102 21 104/49 (67) 100 Intake and Output 12/14/19 12/15/19 19:00 07:00 Intake Total 920.54758 ml 1030.03 ml Output Total 3055 ml 150 ml Balance -2134.76358 ml 880.03 ml Free Water 50 ml IV Total 450.94051 ml 610.03 ml Tube Feeding 420 ml 420 ml Output Urine Total 5 ml 0 ml Stool Total 50 ml 150 ml Hemodialysis UF 3000 ml General Appearance: other - on vent, pressors and sedated HEENT: normocephalic, atraumatic, anicteric, no JVD, other - oral - intubated Respiratory/Chest: chest wall non-tender, lungs clear Cardiovascular: normal peripheral pulses, normal rate Abdomen: normal bowel sounds, soft, non tender, no organomegaly, non distended Genitourinary: other - + barnes - urine slt cloudy Extremities: no cyanosis Skin: no rash Neurologic/Psychiatric: 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 production worker II-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 grossly normal, alert, responsive Lymphatic: no neck adenopathy Musculoskeletal: no effusion Laboratory Tests 12/15/19 05:45: White Blood Count 32.9*H, Red Blood Count 3.53L, Hemoglobin 10.4L, Hematocrit 33.1L, Mean Corpuscular Volume 94, Mean Corpuscular Hemoglobin 29.5, Mean Corpuscular Hemoglobin Concent 31.5L, Red Cell Distribution Width 14.0, Platelet Count 160, Mean Platelet Volume 9.1, Neutrophils (%) (Auto) , Lymphocytes (%) (Auto) , Monocytes (%) (Auto) , Eosinophils (%) (Auto) , Basophils (%) (Auto) , Differential Total Cells Counted 100, Neutrophils % ( Manual) 87H, Lymphocytes % (Manual) 5L, Monocytes % (Manual) 6, Eosinophils % ( Manual) 0, Basophils % (Manual) 0, Metamyelocytes % 1H, Myelocytes % 1H, Band Neutrophils 0, Platelet Estimate Adequate, Platelet Morphology Normal, Sodium Level 142, Potassium Level 4.6, Chloride Level 105, Carbon Dioxide Level 31, Anion Gap 6, Blood Urea Nitrogen 55H, Creatinine 4.5H, Estimat Glomerular Filtration Rate 13.5, Glucose Level 166H, Calcium Level 9.4, Total Bilirubin 1.0 , Aspartate Amino Transf (AST/SGOT) 64H, Alanine Aminotransferase (ALT/SGPT) 86H , Alkaline Phosphatase 258H, Total Protein 6.3L, Albumin 2.8L, Globulin 3.5, Albumin/Globulin Ratio 0.8L, Random Vancomycin Level 7.9 Current Medications Medications (Trade) Dose Ordered Sig/Vicki Route PRN Reason Start Time Stop Time Status Last Admin Dose Admin Acetaminophen (Tylenol) 650 mg Q4H PRN NG Temp >100.5 12/06/19 14:15 01/05/20 14:14 12/10/19 04:34 Acetaminophen (Tylenol) 650 mg Q4H PRN RECTAL Mild Pain (Pain Scale 1-3) 12/04/19 11:45 01/03/20 11:44 12/06/19 19:17 Cefepime HCl 500 mg/Dextrose 50 ml @ 100 mls/hr Q24HRS IV 12/10/19 23:00 12/17/19 22:59 12/14/19 23:15 Chlorhexidine Gluconate (Arely-Hex 2%) 1 applic DAILY@2000 TOPIC 12/05/19 20:00 03/04/20 19:59 12/14/19 21:43 Dextrose (Dextrose 50%) 25 ml Q30M PRN IV Hypoglycemia 11/29/19 14:15 02/27/20 14:14 Dextrose (Dextrose 50%) 50 ml Q30M PRN IV Hypoglycemia 11/29/19 14:15 02/27/20 14:14 Fentanyl Citrate 2500 mcg/Sodium Chloride 250 ml @ 0 mls/hr Q24H IV 12/13/19 00:00 12/20/19 00:00 12/15/19 16:00 Hydralazine HCl (Apresoline) 10 mg Q4H PRN IV For High Blood Pressure 11/29/19 15:15 02/27/20 15:14 Loperamide HCl (Imodium) 2 mg Q6H PRN NG Diarrhea 12/12/19 12:45 01/11/20 12:44 Metronidazole 100 ml @ 100 mls/hr Q8HR IVPB 12/10/19 23:00 12/17/19 22:59 12/15/19 14:24 Midodrine (Pro-Amatine) 10 mg THREE TIMES A DAY ORAL 12/12/19 13:00 03/11/20 12:59 12/15/19 13:05 Norepinephrine Bitartrate 16 mg/ Dextrose 566 ml @ 0 mls/hr Q24H IV 12/06/19 09:00 01/05/20 08:59 12/15/19 16:39 Ondansetron HCl (Zofran) 4 mg Q6H PRN IVP Nausea & Vomiting 11/29/19 14:15 12/29/19 14:14 Pantoprazole (Protonix) 40 mg DAILY IVP 11/30/19 12:15 12/30/19 12:14 12/15/19 09:12 Potassium Chloride (K-Dur) 40 meq TWICE A DAY ORAL 12/11/19 09:30 03/10/20 09:29 12/14/19 17:35 Vancomycin HCl (Vanco rx to dose) 1 ea DAILY PRN MISC Per rx protocol 12/08/19 19:30 01/07/20 19:29 Vasopressin 100 units/Sodium Chloride 100 ml @ 0 mls/hr Q24H IV 12/06/19 09:00 01/05/20 08:59 12/06/19 09:03 Sushil Cortes MD December 15, 2019 17:21
[2019-12-15] MEDS: Acetaminophen 650mg/20.3ml NG PRN (18:00)
--- NOTE | 2019-12-15 18:00 | NUR ---
NURSE NOTES: Vital signs stable. Blood pressure stable on 10mcg/min levophed. RASS -2 with fentanyl 200mcg/hr. Patient repositioned. Will continue to monitor.
--- NOTE | 2019-12-15 18:11 | Nephrology Progress Note ---
Assessment/Plan Plan #ALBARO- concerns for developing ischemic ATN in the setting of sepsis- r/o vanco toxicity - r/o COVID nephropathy - now with likely ATN #Hyperkalemia due to renal insuffiency - exacerbated by acidosis #COID sepsis #COVID pneumonia #hypoxemic respiratary failure #HTN- now in shock #mediastinal PTX - HD today - order placed- UF as tolerated- 3L-> will given albumin PRN - midodorine 10mg q8hr - monitor I&Os - daily weights - monitor lytes closely - proned -add nephrovite - GOALS of care discussion - continue pressor support to maintain MAP > 65- continue levo - continue fentanyl dip - abx per ID- on vanco and cefepime, flagyl - vent management per pulm -Abd Xray shows mediastinal PTX - too high risk for thorocotomy Subjective ROS Limited/Unobtainable: Yes Subjective s/p HD yesterday with 3.L UF plan HD gain today remains oliguric on Fio2 100 on levo Abd Xray shows mediastinal PTX On fentanyl drip Objective Objective Last 24 Hour Vital Signs Date Time Temp Pulse Resp B/P (MAP) Pulse Ox O2 Delivery O2 Flow Rate FiO2 12/15/19 17:30 107 17 105/54 (71) 100 12/15/19 17:15 108 20 116/58 (77) 100 12/15/19 17:00 105 18 117/59 (78) 100 12/15/19 16:52 108 24 100 12/15/19 16:45 109 14 114/70 (85) 100 12/15/19 16:39 116/67 12/15/19 16:30 104 15 116/67 (83) 100 12/15/19 16:00 Mechanical Ventilator 12/15/19 16:00 100 12/15/19 16:00 99.6 104 16 108/63 (78) 100 12/15/19 16:00 24 Mechanical Ventilator 100 12/15/19 16:00 106 12/15/19 15:45 102 18 109/65 (80) 100 12/15/19 15:30 100 16 114/63 (80) 100 12/15/19 15:15 99 17 107/66 (80) 100 12/15/19 15:15 99 24 100 12/15/19 15:00 101 17 96/57 (70) 100 12/15/19 14:45 99 15 103/64 (77) 100 12/15/19 14:30 98 16 114/63 (80) 100 12/15/19 14:15 96 17 113/68 (83) 100 12/15/19 14:00 95 19 111/54 (73) 100 12/15/19 13:45 91 18 108/65 (79) 100 12/15/19 13:30 90 20 105/63 (77) 100 12/15/19 13:15 94 21 105/54 (71) 100 12/15/19 13:04 94 20 100 12/15/19 13:00 94 20 103/54 (70) 100 12/15/19 12:45 96 21 96/51 (66) 100 12/15/19 12:30 93 20 108/54 (72) 100 12/15/19 12:15 98.6 90 22 106/51 (69) 100 12/15/19 12:00 91 21 106/51 (69) 100 12/15/19 12:00 88 12/15/19 12:00 100 12/15/19 12:00 Mechanical Ventilator 12/15/19 11:30 96 21 117/62 (80) 100 12/15/19 11:00 95 21 110/62 (78) 100 12/15/19 10:51 95 20 100 12/15/19 10:30 95 21 116/55 (75) 100 12/15/19 10:00 96 18 114/53 (73) 100 12/15/19 09:30 95 12 117/60 (79) 100 12/15/19 09:04 84 22 100 12/15/19 09:00 92 12 119/59 (79) 100 12/15/19 09:00 116/58 12/15/19 08:30 84 11 115/58 (77) 100 12/15/19 08:00 82 12/15/19 08:00 97.6 12/15/19 08:00 82 14 113/64 (80) 100 12/15/19 08:00 Mechanical Ventilator 12/15/19 08:00 100 12/15/19 07:30 82 13 114/55 (74) 100 12/15/19 07:15 80 11 115/60 (78) 100 12/15/19 07:00 83 16 111/60 (77) 100 12/15/19 06:50 78 22 100 12/15/19 06:30 86 15 115/58 (77) 100 12/15/19 06:00 20 Mechanical Ventilator 100 12/15/19 06:00 114/62 12/15/19 06:00 86 20 114/62 (79) 100 12/15/19 05:30 78 17 118/55 (76) 100 12/15/19 05:00 73 20 110/57 (74) 100 12/15/19 05:00 19 Mechanical Ventilator 100 12/15/19 05:00 109/57 12/15/19 05:00 69 22 100 12/15/19 04:30 71 23 124/61 (82) 100 12/15/19 04:30 71 23 124/61 (82) 100 12/15/19 04:15 79 26 100 12/15/19 04:00 74 12/15/19 04:00 96.0 71 25 124/54 (77) 100 12/15/19 04:00 100 12/15/19 04:00 Mechanical Ventilator 12/15/19 04:00 19 Mechanical Ventilator 100 12/15/19 04:00 142/62 12/15/19 03:30 72 21 108/53 (71) 100 12/15/19 03:00 72 20 115/54 (74) 100 12/15/19 03:00 20 Mechanical Ventilator 100 12/15/19 03:00 117/55 12/15/19 02:52 19 Mechanical Ventilator 100 12/15/19 02:30 75 19 114/53 (73) 100 12/15/19 02:00 75 18 114/52 (72) 100 12/15/19 02:00 20 Mechanical Ventilator 100 12/15/19 02:00 114/54 12/15/19 01:30 71 22 115/55 (75) 100 12/15/19 01:05 74 23 100 12/15/19 01:00 20 Mechanical Ventilator 100 12/15/19 01:00 113/54 12/15/19 01:00 73 21 112/54 (73) 100 12/15/19 00:30 74 21 111/54 (73) 100 12/15/19 00:00 96.0 74 19 117/50 (72) 100 5/3/20 00:00 100 12/15/19 00:00 21 Mechanical Ventilator 100 12/15/19 00:00 112/53 12/15/19 00:00 Mechanical Ventilator 12/15/19 00:00 75 12/14/19 23:30 70 21 115/59 (77) 100 12/14/19 23:00 67 20 119/53 (75) 100 12/14/19 23:00 22 Mechanical Ventilator 100 12/14/19 23:00 116/57 12/14/19 22:55 72 23 100 12/14/19 22:30 77 20 109/54 (72) 100 12/14/19 22:00 79 22 106/45 (65) 100 12/14/19 22:00 22 Mechanical Ventilator 100 12/14/19 22:00 91/46 12/14/19 21:30 75 21 115/57 (76) 100 12/14/19 21:00 78 23 100 12/14/19 21:00 22 Mechanical Ventilator 100 12/14/19 21:00 115/57 12/14/19 21:00 77 23 119/53 (75) 100 12/14/19 20:30 77 20 112/52 (72) 100 12/14/19 20:00 100 12/14/19 20:00 76 12/14/19 20:00 22 Mechanical Ventilator 100 12/14/19 20:00 110/50 12/14/19 20:00 Mechanical Ventilator 12/14/19 20:00 97.6 75 22 111/52 (71) 100 12/14/19 19:30 94 26 122/67 (85) 99 12/14/19 19:28 83 23 100 12/14/19 19:00 86 20 106/53 (70) 100 12/14/19 19:00 20 Mechanical Ventilator 100 12/14/19 19:00 106/53 12/14/19 18:45 87 15 106/52 (70) 100 12/14/19 18:33 88 16 100/55 (70) 100 12/14/19 18:30 88 17 100/55 (70) 100 12/14/19 18:15 90 16 110/53 (72) 100 Intake and Output 12/14/19 12/15/19 19:00 07:00 Intake Total 920.52014 ml 1030.03 ml Output Total 3055 ml 150 ml Balance -2134.70796 ml 880.03 ml Free Water 50 ml IV Total 450.67340 ml 610.03 ml Tube Feeding 420 ml 420 ml Output Urine Total 5 ml 0 ml Stool Total 50 ml 150 ml Hemodialysis UF 3000 ml Laboratory Tests 12/15/19 05:45: White Blood Count 32.9*H, Red Blood Count 3.53L, Hemoglobin 10.4L, Hematocrit 33.1L, Mean Corpuscular Volume 94, Mean Corpuscular Hemoglobin 29.5, Mean Corpuscular Hemoglobin Concent 31.5L, Red Cell Distribution Width 14.0, Platelet Count 160, Mean Platelet Volume 9.1, Neutrophils (%) (Auto) , Lymphocytes (%) (Auto) , Monocytes (%) (Auto) , Eosinophils (%) (Auto) , Basophils (%) (Auto) , Differential Total Cells Counted 100, Neutrophils % ( Manual) 87H, Lymphocytes % (Manual) 5L, Monocytes % (Manual) 6, Eosinophils % ( Manual) 0, Basophils % (Manual) 0, Metamyelocytes % 1H, Myelocytes % 1H, Band Neutrophils 0, Platelet Estimate Adequate, Platelet Morphology Normal, Sodium Level 142, Potassium Level 4.6, Chloride Level 105, Carbon Dioxide Level 31, Anion Gap 6, Blood Urea Nitrogen 55H, Creatinine 4.5H, Estimat Glomerular Filtration Rate 13.5, Glucose Level 166H, Calcium Level 9.4, Total Bilirubin 1.0 , Aspartate Amino Transf (AST/SGOT) 64H, Alanine Aminotransferase (ALT/SGPT) 86H , Alkaline Phosphatase 258H, Total Protein 6.3L, Albumin 2.8L, Globulin 3.5, Albumin/Globulin Ratio 0.8L, Random Vancomycin Level 7.9 Height (Feet): 5 Height (Inches): 6.00 Weight (Pounds): 159 Objective General Appearance: other - intubated- proned Lines, tubes and drains: central line HEENT: normocephalic, atraumatic Respiratory/Chest: rhonchi - bilaterally Cardiovascular/Chest: other - tachycardic Extremities: pitting Dorian Soriano M.D. December 15, 2019 18:11
--- NOTE | 2019-12-15 18:15 | Hematology/Onc Progress Note ---
Assessment/Plan Assessment/Plan # Leukocytosis/elevated white blood cell count, unspecified likely related to underlying stress reaction and addition of infection, covid19++ on vent, intubated --> have reviewed peripheral smear and bandemia/neutrophilia noted --> continue antibiotics if they have been started by ID team --> on broad spectrum abx cefepime/flag/vanc --> monitor for resolution --> smear is noted, with metamyelocytes --> wbc trend 18-->24-->32.9 # Anemia of chronic disease due to underlying chronic medical issues, multifactorial v Gi bleed --> Anemia workup has been ordered, rule out gi bleed --> No evidence of hemolysis is noted, peripheral smear has been reviewed. --> Hgb goal >7. Transfuse prn. --> Epogen or iron at this time is not particularly indicated --> Medications have been reviewed --> low threshold for gi evaluation in case has occult + ==> hgb trend 11-->10.7-->10.4 # Thrombocytopenia also likely covid related --> supportive care # Acute Hypoxic Respiratory Failure s/p intubation --> now on vent --> as per Dr. Cortes, weaning # COVID19 positive --> abx # Pneumomediastinum --> monitor for expansion # Subcutaneous emphysema --> too high risk for bedside thoracostomy # ALBARO on ckd --> hd as needed # 12/04: femoral HD cath placed --> hd prn DW Rn and appreciate consultation Subjective Allergies: Coded Allergies: No Known Allergies (Unverified , 11/29/19) Subjective 12/12 remains on vent, ogtube, barnes and rectal tube emptied, right fem jia line 12/14 icu, prone, levo gtt, multiple abx, labs reviewed Objective Objective Current Medications Medications (Trade) Dose Ordered Sig/Vicki Route PRN Reason Start Time Stop Time Status Last Admin Dose Admin Acetaminophen (Tylenol) 650 mg Q4H PRN NG Temp >100.5 12/06/19 14:15 01/05/20 14:14 12/15/19 18:00 Acetaminophen (Tylenol) 650 mg Q4H PRN RECTAL Mild Pain (Pain Scale 1-3) 12/04/19 11:45 01/03/20 11:44 12/06/19 19:17 Cefepime HCl 500 mg/Dextrose 50 ml @ 100 mls/hr Q24HRS IV 12/10/19 23:00 12/17/19 22:59 12/14/19 23:15 Chlorhexidine Gluconate (Arely-Hex 2%) 1 applic DAILY@2000 TOPIC 12/05/19 20:00 03/04/20 19:59 12/14/19 21:43 Dextrose (Dextrose 50%) 25 ml Q30M PRN IV Hypoglycemia 11/29/19 14:15 02/27/20 14:14 Dextrose (Dextrose 50%) 50 ml Q30M PRN IV Hypoglycemia 11/29/19 14:15 02/27/20 14:14 Fentanyl Citrate 2500 mcg/Sodium Chloride 250 ml @ 0 mls/hr Q24H IV 12/13/19 00:00 12/20/19 00:00 12/15/19 16:00 Hydralazine HCl (Apresoline) 10 mg Q4H PRN IV For High Blood Pressure 11/29/19 15:15 02/27/20 15:14 Loperamide HCl (Imodium) 2 mg Q6H PRN NG Diarrhea 12/12/19 12:45 01/11/20 12:44 Metronidazole 100 ml @ 100 mls/hr Q8HR IVPB 12/10/19 23:00 12/17/19 22:59 12/15/19 14:24 Midodrine (Pro-Amatine) 10 mg THREE TIMES A DAY ORAL 12/12/19 13:00 03/11/20 12:59 12/15/19 18:00 Norepinephrine Bitartrate 16 mg/ Dextrose 566 ml @ 0 mls/hr Q24H IV 12/06/19 09:00 01/05/20 08:59 12/15/19 16:39 Ondansetron HCl (Zofran) 4 mg Q6H PRN IVP Nausea & Vomiting 11/29/19 14:15 12/29/19 14:14 Pantoprazole (Protonix) 40 mg DAILY IVP 11/30/19 12:15 12/30/19 12:14 12/15/19 09:12 Potassium Chloride (K-Dur) 40 meq TWICE A DAY ORAL 12/11/19 09:30 03/10/20 09:29 12/14/19 17:35 Vancomycin HCl (Vanco rx to dose) 1 ea DAILY PRN MISC Per rx protocol 12/08/19 19:30 01/07/20 19:29 Vasopressin 100 units/Sodium Chloride 100 ml @ 0 mls/hr Q24H IV 12/06/19 09:00 01/05/20 08:59 12/06/19 09:03 Vitamin B Complex/ Vit C/Folic Acid (Nephrovite) 1 tab DAILY ORAL 12/16/19 09:00 01/15/20 08:59 UNV Last 24 Hour Vital Signs Date Time Temp Pulse Resp B/P (MAP) Pulse Ox O2 Delivery O2 Flow Rate FiO2 12/15/19 17:30 107 17 105/54 (71) 100 12/15/19 17:15 108 20 116/58 (77) 100 12/15/19 17:00 105 18 117/59 (78) 100 12/15/19 16:52 108 24 100 12/15/19 16:45 109 14 114/70 (85) 100 12/15/19 16:39 116/67 12/15/19 16:30 104 15 116/67 (83) 100 12/15/19 16:00 Mechanical Ventilator 12/15/19 16:00 100 12/15/19 16:00 99.6 104 16 108/63 (78) 100 12/15/19 16:00 24 Mechanical Ventilator 100 12/15/19 16:00 106 12/15/19 15:45 102 18 109/65 (80) 100 12/15/19 15:30 100 16 114/63 (80) 100 12/15/19 15:15 99 17 107/66 (80) 100 12/15/19 15:15 99 24 100 12/15/19 15:00 101 17 96/57 (70) 100 12/15/19 14:45 99 15 103/64 (77) 100 12/15/19 14:30 98 16 114/63 (80) 100 12/15/19 14:15 96 17 113/68 (83) 100 12/15/19 14:00 95 19 111/54 (73) 100 12/15/19 13:45 91 18 108/65 (79) 100 12/15/19 13:30 90 20 105/63 (77) 100 12/15/19 13:15 94 21 105/54 (71) 100 12/15/19 13:04 94 20 100 12/15/19 13:00 94 20 103/54 (70) 100 12/15/19 12:45 96 21 96/51 (66) 100 12/15/19 12:30 93 20 108/54 (72) 100 12/15/19 12:15 98.6 90 22 106/51 (69) 100 12/15/19 12:00 91 21 106/51 (69) 100 12/15/19 12:00 88 12/15/19 12:00 100 12/15/19 12:00 Mechanical Ventilator 12/15/19 11:30 96 21 117/62 (80) 100 12/15/19 11:00 95 21 110/62 (78) 100 12/15/19 10:51 95 20 100 12/15/19 10:30 95 21 116/55 (75) 100 12/15/19 10:00 96 18 114/53 (73) 100 12/15/19 09:30 95 12 117/60 (79) 100 12/15/19 09:04 84 22 100 12/15/19 09:00 92 12 119/59 (79) 100 12/15/19 09:00 116/58 12/15/19 08:30 84 11 115/58 (77) 100 12/15/19 08:00 82 12/15/19 08:00 97.6 12/15/19 08:00 82 14 113/64 (80) 100 12/15/19 08:00 Mechanical Ventilator 12/15/19 08:00 100 12/15/19 07:30 82 13 114/55 (74) 100 12/15/19 07:15 80 11 115/60 (78) 100 12/15/19 07:00 83 16 111/60 (77) 100 12/15/19 06:50 78 22 100 12/15/19 06:30 86 15 115/58 (77) 100 12/15/19 06:00 20 Mechanical Ventilator 100 12/15/19 06:00 114/62 12/15/19 06:00 86 20 114/62 (79) 100 12/15/19 05:30 78 17 118/55 (76) 100 12/15/19 05:00 73 20 110/57 (74) 100 12/15/19 05:00 19 Mechanical Ventilator 100 12/15/19 05:00 109/57 12/15/19 05:00 69 22 100 12/15/19 04:30 71 23 124/61 (82) 100 12/15/19 04:30 71 23 124/61 (82) 100 12/15/19 04:15 79 26 100 12/15/19 04:00 74 12/15/19 04:00 96.0 71 25 124/54 (77) 100 12/15/19 04:00 100 12/15/19 04:00 Mechanical Ventilator 12/15/19 04:00 19 Mechanical Ventilator 100 12/15/19 04:00 142/62 12/15/19 03:30 72 21 108/53 (71) 100 12/15/19 03:00 72 20 115/54 (74) 100 12/15/19 03:00 20 Mechanical Ventilator 100 12/15/19 03:00 117/55 12/15/19 02:52 19 Mechanical Ventilator 100 12/15/19 02:30 75 19 114/53 (73) 100 12/15/19 02:00 75 18 114/52 (72) 100 12/15/19 02:00 20 Mechanical Ventilator 100 12/15/19 02:00 114/54 12/15/19 01:30 71 22 115/55 (75) 100 12/15/19 01:05 74 23 100 12/15/19 01:00 20 Mechanical Ventilator 100 12/15/19 01:00 113/54 12/15/19 01:00 73 21 112/54 (73) 100 12/15/19 00:30 74 21 111/54 (73) 100 12/15/19 00:00 96.0 74 19 117/50 (72) 100 12/15/19 00:00 100 12/15/19 00:00 21 Mechanical Ventilator 100 12/15/19 00:00 112/53 12/15/19 00:00 Mechanical Ventilator 12/15/19 00:00 75 12/14/19 23:30 70 21 115/59 (77) 100 12/14/19 23:00 67 20 119/53 (75) 100 12/14/19 23:00 22 Mechanical Ventilator 100 12/14/19 23:00 116/57 12/14/19 22:55 72 23 100 12/14/19 22:30 77 20 109/54 (72) 100 12/14/19 22:00 79 22 106/45 (65) 100 12/14/19 22:00 22 Mechanical Ventilator 100 12/14/19 22:00 91/46 12/14/19 21:30 75 21 115/57 (76) 100 12/14/19 21:00 78 23 100 12/14/19 21:00 22 Mechanical Ventilator 100 12/14/19 21:00 115/57 12/14/19 21:00 77 23 119/53 (75) 100 12/14/19 20:30 77 20 112/52 (72) 100 12/14/19 20:00 100 12/14/19 20:00 76 12/14/19 20:00 22 Mechanical Ventilator 100 12/14/19 20:00 110/50 12/14/19 20:00 Mechanical Ventilator 12/14/19 20:00 97.6 75 22 111/52 (71) 100 12/14/19 19:30 94 26 122/67 (85) 99 12/14/19 19:28 83 23 100 12/14/19 19:00 86 20 106/53 (70) 100 12/14/19 19:00 20 Mechanical Ventilator 100 12/14/19 19:00 106/53 12/14/19 18:45 87 15 106/52 (70) 100 12/14/19 18:33 88 16 100/55 (70) 100 12/14/19 18:30 88 17 100/55 (70) 100 12/14/19 18:15 90 16 110/53 (72) 100 12/14/19 18:00 20 Mechanical Ventilator 100 12/14/19 18:00 112/58 12/14/19 18:00 94 19 112/58 (76) 100 12/14/19 17:45 99 20 113/58 (76) 100 12/14/19 17:30 102 21 104/49 (67) 100 12/14/19 17:20 105 26 100 12/14/19 17:15 99 23 106/49 (68) 80 12/14/19 17:00 107 20 88/50 (63) 99 20 17:00 20 Mechanical Ventilator 100 12/14/19 17:00 88/60 12/14/19 16:30 104 18 120/60 (80) 99 5/2/20 16:00 110 12/14/19 16:00 Mechanical Ventilator 12/14/19 16:00 20 Mechanical Ventilator 100 12/14/19 16:00 120/63 12/14/19 16:00 99.5 107 17 120/63 (82) 100 12/14/19 15:30 110 20 110/55 (73) 99 12/14/19 15:00 34 Mechanical Ventilator 100 12/14/19 15:00 100/57 12/14/19 15:00 110 34 100/57 (71) 99 12/14/19 14:51 110 21 100 12/14/19 14:30 110 36 104/52 (69) 100 12/14/19 14:00 38 Mechanical Ventilator 100 12/14/19 14:00 100/58 12/14/19 14:00 110 38 100/58 (72) 100 12/14/19 13:57 100 12/14/19 13:36 32 100 12/14/19 13:30 113 33 108/57 (74) 100 12/14/19 13:30 108 20 100 12/14/19 13:00 38 Mechanical Ventilator 100 12/14/19 13:00 101/59 12/14/19 13:00 110 29 119/60 (79) 100 12/14/19 12:30 107 27 97/45 (62) 98 12/14/19 12:00 107 12/14/19 12:00 24 Mechanical Ventilator 100 12/14/19 12:00 94/48 12/14/19 12:00 Mechanical Ventilator 12/14/19 12:00 100 12/14/19 12:00 99.0 105 26 119/60 (79) 99 12/14/19 11:45 106 20 105/53 (70) 98 12/14/19 11:30 105 19 103/58 (73) 98 12/14/19 11:15 110 31 119/63 (81) 100 12/14/19 11:00 21 Mechanical Ventilator 100 12/14/19 11:00 119/63 12/14/19 11:00 107 21 106/57 (73) 99 12/14/19 10:59 105 26 100 12/14/19 10:45 106 22 99/53 (68) 98 12/14/19 10:30 106 22 89/51 (64) 98 12/14/19 10:15 106 20 90/47 (61) 99 12/14/19 10:00 104 20 90/48 (62) 99 12/14/19 10:00 20 Mechanical Ventilator 100 12/14/19 10:00 90/47 12/14/19 09:45 106 21 90/46 (61) 99 12/14/19 09:30 106 17 82/42 (55) 98 12/14/19 09:15 110 29 81/42 (55) 98 12/14/19 09:00 103 20 85/44 (58) 98 12/14/19 09:00 21 Mechanical Ventilator 100 12/14/19 09:00 81/42 12/14/19 08:50 99 22 100 12/14/19 08:45 103 18 93/44 (60) 98 12/14/19 08:36 98 17 99/45 (63) 99 12/14/19 08:30 101 19 85/46 (59) 99 12/14/19 08:15 101 19 94/45 (61) 98 12/14/19 08:00 98.2 101 19 90/48 (62) 98 12/14/19 08:00 101 12/14/19 08:00 20 Mechanical Ventilator 100 12/14/19 08:00 94/45 12/14/19 08:00 100 12/14/19 08:00 Mechanical Ventilator 12/14/19 07:45 101 20 91/47 (62) 99 12/14/19 07:30 99 22 100 12/14/19 07:30 101 20 92/44 (60) 98 12/14/19 07:15 100 19 91/45 (60) 99 12/14/19 07:00 20 Mechanical Ventilator 100 12/14/19 07:00 91/45 12/14/19 07:00 100 19 94/46 (62) 99 12/14/19 06:30 99 14 96/46 (63) 99 12/14/19 06:00 99 13 101/47 (65) 99 12/14/19 06:00 20 Mechanical Ventilator 100 12/14/19 06:00 96/46 12/14/19 05:30 99 20 104/54 (71) 99 12/14/19 05:00 97 20 108/52 (70) 100 12/14/19 05:00 20 Mechanical Ventilator 100 12/14/19 05:00 104/57 12/14/19 04:31 108 20 100 12/14/19 04:30 94 17 104/51 (68) 100 12/14/19 04:00 86 12/14/19 04:00 98.1 90 20 101/46 (64) 100 12/14/19 04:00 Mechanical Ventilator 12/14/19 04:00 20 Mechanical Ventilator 100 12/14/19 04:00 119/55 12/14/19 04:00 100 12/14/19 03:30 85 21 119/55 (76) 100 12/14/19 03:10 106 20 100 12/14/19 03:00 20 Mechanical Ventilator 100 12/14/19 03:00 108/59 12/14/19 03:00 99 18 121/63 (82) 100 12/14/19 02:30 99 20 126/57 (80) 100 12/14/19 02:00 102 21 108/59 (75) 100 12/14/19 02:00 20 Mechanical Ventilator 100 12/14/19 02:00 126/66 12/14/19 01:30 93 22 126/66 (86) 100 12/14/19 01:25 101/52 12/14/19 01:00 99 21 109/54 (72) 100 12/14/19 01:00 20 Mechanical Ventilator 100 12/14/19 01:00 101/52 12/14/19 00:45 109 20 100 12/14/19 00:30 98 20 100/59 (73) 100 12/14/19 00:00 99.1 98 22 102/57 (72) 100 12/14/19 00:00 20 Mechanical Ventilator 100 12/14/19 00:00 99/60 12/14/19 00:00 100 12/14/19 00:00 Mechanical Ventilator 12/14/19 00:00 99 12/13/19 23:52 97 21 96/56 (69) 100 12/13/19 23:30 96 21 113/60 (77) 100 12/13/19 23:05 107 20 100 12/13/19 23:00 99 19 114/55 (74) 100 12/13/19 23:00 20 Mechanical Ventilator 100 12/13/19 23:00 102/56 5/1/20 22:45 99 19 114/55 (74) 100 12/13/19 22:30 98 18 114/59 (77) 100 12/13/19 22:00 94 18 99/50 (66) 100 12/13/19 22:00 20 Mechanical Ventilator 100 12/13/19 22:00 99/50 12/13/19 21:45 95 20 121/58 (79) 100 12/13/19 21:41 97 20 112/57 (75) 100 12/13/19 21:30 96 21 110/55 (73) 100 12/13/19 21:20 Mechanical Ventilator 100 12/13/19 21:15 95 21 99/47 (64) 100 12/13/19 21:00 20 Mechanical Ventilator 100 12/13/19 21:00 99/48 12/13/19 21:00 95 20 99/48 (65) 100 12/13/19 20:45 98 20 101/48 (65) 100 12/13/19 20:33 105 20 100 12/13/19 20:30 97 20 97/49 (65) 100 12/13/19 20:15 97 20 102/50 (67) 100 12/13/19 20:00 98 12/13/19 20:00 20 Mechanical Ventilator 100 12/13/19 20:00 104/49 12/13/19 20:00 100 12/13/19 20:00 Mechanical Ventilator 12/13/19 20:00 96.5 96 20 104/49 (67) 100 12/13/19 19:45 97 20 107/50 (69) 100 12/13/19 19:30 96 21 107/51 (69) 100 12/13/19 19:00 20 Mechanical Ventilator 100 12/13/19 19:00 106/51 12/13/19 19:00 95 20 106/51 (69) 100 12/13/19 18:35 108 21 100 12/13/19 18:30 96 21 110/53 (72) 100 Intake and Output 12/14/19 12/15/19 19:00 07:00 Intake Total 920.79042 ml 1030.03 ml Output Total 3055 ml 150 ml Balance -2134.92028 ml 880.03 ml Free Water 50 ml IV Total 450.24061 ml 610.03 ml Tube Feeding 420 ml 420 ml Output Urine Total 5 ml 0 ml Stool Total 50 ml 150 ml Hemodialysis UF 3000 ml Labs Test 12/13/19 03:26 12/13/19 10:50 12/13/19 11:06 12/14/19 04:00 White Blood Count 23.9 K/UL (4.8-10.8) 25.0 K/UL (4.8-10.8) Red Blood Count 3.56 M/UL (4.70-6.10) 3.58 M/UL (4.70-6.10) Hemoglobin 10.7 G/DL (14.2-18.0) 10.7 G/DL (14.2-18.0) Hematocrit 32.9 % (42.0-52.0) 33.3 % (42.0-52.0) Mean Corpuscular Volume 92 FL (80-99) 93 FL (80-99) Mean Corpuscular Hemoglobin 30.0 PG (27.0-31.0) 30.0 PG (27.0-31.0) Mean Corpuscular Hemoglobin Concent 32.5 G/DL (32.0-36.0) 32.2 G/DL (32.0-36.0) Red Cell Distribution Width 13.5 % (11.6-14.8) 14.0 % (11.6-14.8) Platelet Count 146 K/UL (150-450) 176 K/UL (150-450) Mean Platelet Volume 9.6 FL (6.5-10.1) 9.1 FL (6.5-10.1) Neutrophils (%) (Auto) % (45.0-75.0) % (45.0-75.0) Lymphocytes (%) (Auto) % (20.0-45.0) % (20.0-45.0) Monocytes (%) (Auto) % (1.0-10.0) % (1.0-10.0) Eosinophils (%) (Auto) % (0.0-3.0) % (0.0-3.0) Basophils (%) (Auto) % (0.0-2.0) % (0.0-2.0) Differential Total Cells Counted 100 100 Neutrophils % (Manual) 89 % (45-75) 78 % (45-75) Lymphocytes % (Manual) 5 % (20-45) 4 % (20-45) Monocytes % (Manual) 5 % (1-10) 6 % (1-10) Eosinophils % (Manual) 0 % (0-3) 1 % (0-3) Basophils % (Manual) 0 % (0-2) 0 % (0-2) Metamyelocytes % 1 % (0-0) 1 % (0-0) Band Neutrophils 0 % (0-8) 8 % (0-8) Platelet Estimate Decreased Adequate Platelet Morphology Normal Normal Sodium Level 142 MMOL/L (136-145) 139 MMOL/L (136-145) Potassium Level 3.8 MMOL/L (3.5-5.1) 4.3 MMOL/L (3.5-5.1) Chloride Level 101 MMOL/L (98-107) 97 MMOL/L (98-107) Carbon Dioxide Level 34 MMOL/L (21-32) 34 MMOL/L (21-32) Anion Gap 8 mmol/L (5-15) 8 mmol/L (5-15) Blood Urea Nitrogen 46 mg/dL (7-18) 35 mg/dL (7-18) Creatinine 5.0 MG/DL (0.55-1.30) 3.8 MG/DL (0.55-1.30) Estimat Glomerular Filtration Rate 12.0 mL/min (>60) 16.4 mL/min (>60) Glucose Level 131 MG/DL (74-106) 147 MG/DL (74-106) Calcium Level 8.6 MG/DL (8.5-10.1) 8.9 MG/DL (8.5-10.1) Total Bilirubin 1.5 MG/DL (0.2-1.0) 1.5 MG/DL (0.2-1.0) Direct Bilirubin 1.0 MG/DL (0.0-0.3) 1.1 MG/DL (0.0-0.3) Aspartate Amino Transf (AST/SGOT) 54 U/L (15-37) 62 U/L (15-37) Alanine Aminotransferase (ALT/SGPT) 127 U/L (12-78) 98 U/L (12-78) Alkaline Phosphatase 186 U/L (46-116) 226 U/L (46-116) Total Protein 5.9 G/DL (6.4-8.2) 6.2 G/DL (6.4-8.2) Albumin 2.5 G/DL (3.4-5.0) 3.1 G/DL (3.4-5.0) Globulin 3.4 g/dL 3.1 g/dL Albumin/Globulin Ratio 0.7 (1.0-2.7) 1.0 (1.0-2.7) Random Vancomycin Level 13.4 ug/mL Arterial Blood pH 7.003 (7.350-7.450) Arterial Blood Partial Pressure CO2 149.1 mmHg (35.0-45.0) Arterial Blood Partial Pressure O2 146.8 mmHg (75.0-100.0) Arterial Blood HCO3 36.2 mmol/L (22.0-26.0) Arterial Blood Oxygen Saturation 98.2 % (95-100) Arterial Blood Base Excess 1.4 (-2-2) Melecio Test Positive Myelocytes % 2 % (0-0) Red Blood Cell Morphology Normal Test 12/14/19 08:50 12/15/19 05:45 Arterial Blood pH 7.146 (7.350-7.450) Arterial Blood Partial Pressure CO2 101.2 mmHg (35.0-45.0) Arterial Blood Partial Pressure O2 193.5 mmHg (75.0-100.0) Arterial Blood HCO3 34.1 mmol/L (22.0-26.0) Arterial Blood Oxygen Saturation 98.4 % (95-100) Arterial Blood Base Excess 3.0 (-2-2) Melecio Test Positive White Blood Count 32.9 K/UL (4.8-10.8) Red Blood Count 3.53 M/UL (4.70-6.10) Hemoglobin 10.4 G/DL (14.2-18.0) Hematocrit 33.1 % (42.0-52.0) Mean Corpuscular Volume 94 FL (80-99) Mean Corpuscular Hemoglobin 29.5 PG (27.0-31.0) Mean Corpuscular Hemoglobin Concent 31.5 G/DL (32.0-36.0) Red Cell Distribution Width 14.0 % (11.6-14.8) Platelet Count 160 K/UL (150-450) Mean Platelet Volume 9.1 FL (6.5-10.1) Neutrophils (%) (Auto) % (45.0-75.0) Lymphocytes (%) (Auto) % (20.0-45.0) Monocytes (%) (Auto) % (1.0-10.0) Eosinophils (%) (Auto) % (0.0-3.0) Basophils (%) (Auto) % (0.0-2.0) Differential Total Cells Counted 100 Neutrophils % (Manual) 87 % (45-75) Lymphocytes % (Manual) 5 % (20-45) Monocytes % (Manual) 6 % (1-10) Eosinophils % (Manual) 0 % (0-3) Basophils % (Manual) 0 % (0-2) Metamyelocytes % 1 % (0-0) Myelocytes % 1 % (0-0) Band Neutrophils 0 % (0-8) Platelet Estimate Adequate Platelet Morphology Normal Sodium Level 142 MMOL/L (136-145) Potassium Level 4.6 MMOL/L (3.5-5.1) Chloride Level 105 MMOL/L (98-107) Carbon Dioxide Level 31 MMOL/L (21-32) Anion Gap 6 mmol/L (5-15) Blood Urea Nitrogen 55 mg/dL (7-18) Creatinine 4.5 MG/DL (0.55-1.30) Estimat Glomerular Filtration Rate 13.5 mL/min (>60) Glucose Level 166 MG/DL (74-106) Calcium Level 9.4 MG/DL (8.5-10.1) Total Bilirubin 1.0 MG/DL (0.2-1.0) Aspartate Amino Transf (AST/SGOT) 64 U/L (15-37) Alanine Aminotransferase (ALT/SGPT) 86 U/L (12-78) Alkaline Phosphatase 258 U/L (46-116) Total Protein 6.3 G/DL (6.4-8.2) Albumin 2.8 G/DL (3.4-5.0) Globulin 3.5 g/dL Albumin/Globulin Ratio 0.8 (1.0-2.7) Random Vancomycin Level 7.9 ug/mL Height (Feet): 5 Height (Inches): 6.00 Weight (Pounds): 159 Objective General Appearance: prone position on vent Heent: nc, at+ ng Respiratory: normal breath sounds, no retraction, vent++ Cardiovascular: no edema, tachycardia Gastrointestinal: normal inspection Neurologic unresponsive on vent Psychiatric: judgement/insight normal, memory normal, mood/affect normal, no suicidal/homicidal ideation Ext: with hd fem jia in place : + barnes and rectal tube Mj Zhu MD December 15, 2019 18:15
--- NOTE | 2019-12-15 19:30 | NUR ---
NURSE NOTES: Pt is sleeping on the bed and obtunded. Vital signs stable. Patient remains orally intubated ETT#8.0 at 24cm lip line. Vent dependent setting with setting AC 20, T : 500, P: 7, FiO2 100% ans Sao2 100% noted. Given suction and oral care. Iv site intact and no sign of infiltration and dressing is clean and dry on B[place] cath area. On running with Fentanyl at 200mcg/hr and Levophed drip @ 10mcg/min and BP is stable. Noted BT: 100.3F. Keep cooling blanket. On NG tube and running Nepro at 35mL/hr. No residual noted. Joe and rectal tube patent. Pt s/p hemodialysis today. Dressing is clean and dry on wound area. Noted open wound on nose, lower lip and chin area. Placed fall precaution. Proper airborne precaution. Will continue to care plan.
--- NOTE | 2019-12-15 19:30 | NUR ---
HAND-OFF: Report given to DARYA Smith.
[2019-12-15] MEDS: Dyna-Hex 2% Top Sol 2oz TOPIC SCH (20:35)
--- NOTE | 2019-12-15 20:54 | Diagnostic Imaging Report ---
EXAM: XR Chest, 1 View CLINICAL HISTORY: DYSPNEA TECHNIQUE: Frontal view of the chest. COMPARISON: 12/12/19 FINDINGS: Lungs: Persistent diffuse bilateral airspace opacities. Pleural space: No significant pleural effusions or pneumothorax. Heart: Stable cardiomediastinal silhouette. Mediastinum: See above. Bones/joints: No acute osseous abnormality. Tubes, lines and devices: Endotracheal tube tip projects approximately 2.7 cm above the cindi. Esophagogastric tube tip projects over the gastric antrum. IMPRESSION: 1. Endotracheal tube tip projects approximately 2.7 cm above the cindi. 2. Esophagogastric tube tip projects over the gastric antrum. 3. Persistent diffuse bilateral airspace opacities. No significant pleural effusions or pneumothorax.
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
--- NOTE | 2019-12-15 22:00 | NUR ---
NURSE NOTES: Pt is sedated with fentanyl drip @ 200mcg/hr. Noted RASS score -3. Decreased Fentanyl drip @ 180mcg/hr. BP is stable with Levophed drip. Given oral care. repositioned. SaO2 100% noted with current Vent setting. Will continue to monitor any change of condition.
[2019-12-16] VITALS (54 sets, daily range): BP systolic 97–158; BP diastolic 50–80
[2019-12-16] MEDS: Acetaminophen 650mg/20.3ml NG PRN ×2 (00:28→16:30)
--- NOTE | 2019-12-16 00:29 | NUR ---
NURSE NOTES: Pt is sleeping on the bed and no noted BT: 100.5F. Given Tylenol 650mg via NGT and keep cooling measure with cooling blanket. Tolerated well with current Vent setting and SaO2 100% noted. On running with Levophed drip @ 10mcg/min, Fentanyl drip @ 160mcg/hr. Reposition. Oral care was done. Given suction. Will continue to monitor any change of condition.
--- NOTE | 2019-12-16 02:00 | NUR ---
NURSE NOTES: Repositioned. oral care suction was done. Tolerated well with current Vent setting and SaO2 100% noted. Will continue to monitor any change of condition.
--- NOTE | 2019-12-16 04:00 | NUR ---
NURSE NOTES: Morning care was done. Cleaned Pt and applied lotion and cream. Noted BP 158/80mmHg. Decrease Levophed drip @5mcg/min. Fentanyl running @ 150mcg/hr. Oral care and suction was done. Changed position. Checked BT: 97.5F by rectal. Will continue to monitor any change of condition.
--- NOTE | 2019-12-16 06:00 | NUR ---
NURSE NOTES: Pt is sedated with Fentanyl. BP is stable. repositioned. suction and oral care was done.
[2019-12-16] MEDS: fentaNYL Citrate 2,500 MCG in NS 200 ML IV SCH (06:13)
[2019-12-16 07:20] LABS: HEMATOCRIT 31.2 % (42.0-52.0); HEMOGLOBIN 9.9 G/DL (14.2-18.0); MEAN CORPUSCULAR VOLUME 93 FL (80-99); PLATELET COUNT 169 K/UL (150-450); RED BLOOD COUNT 3.35 M/UL (4.70-6.10); RED CELL DISTRIBUTION WIDTH 13.7 % (11.6-14.8)
--- NOTE | 2019-12-16 07:23 | NUR ---
HAND-OFF: Report given to Kandi Luciano. Pt is sleeping on the bed and no sign of acute distress noted. .
--- NOTE | 2019-12-16 07:24 | NUR ---
NURSE NOTES: Received patient from Luis LACKEY. Patient is sedated, RASS -2. Sinus Tachycardia on the heart monitor, HR 112. Receiving oxygen via ET tube 8.0 24cm at the lip line, vent settings: AC 20, TV 500, PEEP 7, FiO2 100%. Left nares NGT is intact and receiving Nepro at 35cc/hr. Joe catheter is intact and draining. Rectal tube is intact and draining. IV site is left femoral [place] cath receiving Fentanyl at 150mcg/hr and Levophed at 5mcg/min, Left wrist 20g is intact and asymptomatic. Bed is locked, placed in lowest position, side rails up x3, bed alarm on, call light within reach. Will continue to monitor.
[2019-12-16 07:40] LABS: WHITE BLOOD COUNT 33.5 K/UL (4.8-10.8)
[2019-12-16 07:50] LABS: ALANINE AMINOTRANSFERASE 61 U/L (12-78); ALBUMIN 2.7 G/DL (3.4-5.0); ALBUMIN/GLOBULIN RATIO 0.8 (1.0-2.7); ALKALINE PHOSPHATASE 253 U/L (46-116); ANION GAP 5 mmol/L (5-15); ASPARTATE AMINO TRANSFERASE 46 U/L (15-37); BILIRUBIN,TOTAL 0.8 MG/DL (0.2-1.0); BLOOD UREA NITROGEN 52 mg/dL (7-18); CALCIUM 9.3 MG/DL (8.5-10.1); CARBON DIOXIDE 33 MMOL/L (21-32); CHLORIDE 100 MMOL/L (98-107); POTASSIUM 3.8 MMOL/L (3.5-5.1); SODIUM 138 MMOL/L (136-145)
--- NOTE | 2019-12-16 08:55 | NUR ---
RD ASSESSMENT & RECOMMENDATIONS SEE CARE ACTIVITY FOR COMPLETE ASSESSMENT DAILY ESTIMATED NEEDS: Needs based on Critical care 68.4kg abw 22-28 kcals/kg 0575-4294 total kcals 1.2-2 g protein/kg 82-137 g total protein 25-30 mL/kg 6612-6292 total fluid mLs NUTRITION DIAGNOSIS: Altered nutrition related lab values r/t clinical status as evidenced by midly elev BG (131, 151), elev T bili and LFTs, trending down, elev WBC (33.5*), febrile, critical ABG, now s/p intubation on pressor support, NGT feeds.. CURRENT TF:Nepro @35ml/hr x24 hrs ENTERAL NUTRITION RECOMMENDATIONS: Nepro @35ml/hr x24 hrs + Prosource BID to provide 840ml, 1512 kcal, 68g + 22g pro, 611ml free H2O - WITH HEMODYNAMIC STABILITY, maintain current TF - Flush per MD/ HOB over 30 degrees. 1) Without hemodynamic stability, rec trophic feeds to maintain gut integrity, rec Nepro @5-10ml/hr as able. 2) When Tolerating TF at goal of 35ml/hr and Prosource in stock, rec to add Prosource BID to better meet protein needs. Will provide additional 22g pro. ----- ADDITIONAL RECOMMENDATIONS: 1) Monitor hemodynamic stability: NE held 12/09, NE @ 12mcg 12/12 am 2) Wound care: add CLAUDIO BID (f/up w/ WC eval) 3) NISS w/ TF (elev BGs) 4) Maintain calibrated bed scale wts 5) Monitor for continuity of HD: first HD on 12/05, last 12/14 6) HOLD TF WHILE PT ON PRONE POSITION TO PREVENT ASPIRATION -> monitor TF held time, need to adjust TF rate to meet nutritional needs
[2019-12-16] MEDS: Midodrine 10mg tab ORAL SCH ×3 (08:59→18:04)
[2019-12-16] MEDS: Nephrovite tab (Rena-Vite) NG SCH (08:59)
[2019-12-16] MEDS: Vasopressin 100 UNITS in NS 95 ML IV SCH (09:00)
[2019-12-16] MEDS: Pantoprazole Inj IVP SCH (09:00)
--- NOTE | 2019-12-16 09:24 | NUR ---
NURSE NOTES: Medications given as prescribed, no adverse reactions noted. Patient is sedated RASS -2, holds eye contact for less than 5 seconds and responds to voice. Turned and repositioned patient, no signs of acute distress.
--- NOTE | 2019-12-16 09:52 | Nephrology Progress Note ---
Assessment/Plan Plan #ALBARO- concerns for developing ischemic ATN in the setting of sepsis- r/o vanco toxicity - r/o COVID nephropathy - now with likely ATN #Hyperkalemia due to renal insuffiency - exacerbated by acidosis #COID sepsis #COVID pneumonia #hypoxemic respiratary failure #HTN- now in shock #mediastinal PTX - HD today - order placed- UF as tolerated- 2L-> will give albumin PRN - midodorine 10mg q8hr - monitor I&Os - daily weights - monitor lytes closely -add nephrovite - GOALS of care discussion - continue pressor support to maintain MAP > 65- continue levo - continue fentanyl dip - abx per ID- on vanco and cefepime, flagyl - vent management per pulm -Abd Xray shows mediastinal PTX - too high risk for thorocotomy Subjective ROS Limited/Unobtainable: Yes Subjective s/p HD yesterday with 2.L UF plan HD gain today remains oliguric on Fio2 100 on levo Abd Xray shows mediastinal PTX On fentanyl drip Objective Objective Last 24 Hour Vital Signs Date Time Temp Pulse Resp B/P (MAP) Pulse Ox O2 Delivery O2 Flow Rate FiO2 12/16/19 08:00 100 12/16/19 08:00 99.3 116 25 112/51 (71) 98 12/16/19 08:00 Mechanical Ventilator 12/16/19 07:30 113 24 114/50 (71) 98 12/16/19 07:04 113 28 100 12/16/19 07:00 20 Mechanical Ventilator 100 12/16/19 07:00 125/57 12/16/19 07:00 108 25 125/57 (79) 99 12/16/19 06:30 87 19 114/62 (79) 100 12/16/19 06:13 18 Mechanical Ventilator 100 12/16/19 06:00 77 16 119/62 (81) 100 12/16/19 06:00 18 Mechanical Ventilator 100 12/16/19 06:00 119/62 12/16/19 05:30 72 21 100 12/16/19 05:30 72 18 126/60 (82) 100 12/16/19 05:00 73 22 135/70 (91) 100 12/16/19 05:00 22 Mechanical Ventilator 100 12/16/19 05:00 135/70 12/16/19 04:30 84 16 140/79 (99) 100 12/16/19 04:00 Mechanical Ventilator 12/16/19 04:00 97.5 86 18 158/80 (106) 100 12/16/19 04:00 18 Mechanical Ventilator 100 12/16/19 04:00 158/80 12/16/19 04:00 100 12/16/19 04:00 73 12/16/19 03:46 73 26 100 12/16/19 03:30 75 17 156/67 (96) 100 12/16/19 03:00 78 22 158/73 (101) 100 12/16/19 03:00 21 Mechanical Ventilator 100 12/16/19 03:00 158/73 12/16/19 02:30 140/70 12/16/19 02:30 68 21 149/70 (96) 100 12/16/19 02:00 72 21 137/62 (87) 100 12/16/19 02:00 21 Mechanical Ventilator 100 12/16/19 02:00 137/62 12/16/19 01:30 92 24 100 12/16/19 01:30 82 18 135/64 (87) 100 12/16/19 01:30 135/64 12/16/19 01:00 19 Mechanical Ventilator 100 12/16/19 01:00 128/63 12/16/19 01:00 88 19 128/63 (84) 100 12/16/19 00:58 100.3 12/16/19 00:30 91 18 121/60 (80) 100 12/16/19 00:00 100 12/16/19 00:00 Mechanical Ventilator 12/16/19 00:00 18 Mechanical Ventilator 100 12/16/19 00:00 120/59 12/16/19 00:00 95 12/16/19 00:00 100.5 91 18 120/59 (79) 100 12/15/19 23:30 84 18 120/55 (76) 100 12/15/19 23:30 16 Mechanical Ventilator 100 12/15/19 23:23 91 23 100 12/15/19 23:00 16 Mechanical Ventilator 100 12/15/19 23:00 114/61 12/15/19 23:00 92 18 114/61 (78) 100 12/15/19 22:30 91 19 120/60 (80) 100 12/15/19 22:20 19 Mechanical Ventilator 100 12/15/19 22:20 120/61 12/15/19 22:00 90 19 120/61 (80) 100 12/15/19 22:00 17 Mechanical Ventilator 100 12/15/19 22:00 113/58 12/15/19 21:30 91 17 116/60 (78) 100 12/15/19 21:30 90 22 100 12/15/19 21:00 93 17 113/58 (76) 100 12/15/19 20:30 92 20 120/56 (77) 100 12/15/19 20:00 95 12/15/19 20:00 Mechanical Ventilator 12/15/19 20:00 100.3 94 18 104/56 (72) 100 12/15/19 20:00 18 Mechanical Ventilator 100 12/15/19 20:00 104/56 12/15/19 20:00 100 12/15/19 19:30 91 24 100 12/15/19 19:30 94 17 100/57 (71) 100 12/15/19 19:00 96 16 106/50 (68) 100 12/15/19 19:00 26 Mechanical Ventilator 100 12/15/19 19:00 116/62 12/15/19 18:30 98 16 110/59 (76) 100 12/15/19 18:00 102 18 107/55 (72) 100 12/15/19 18:00 26 Mechanical Ventilator 100 12/15/19 18:00 120/65 12/15/19 17:30 107 17 105/54 (71) 100 12/15/19 17:15 108 20 116/58 (77) 100 12/15/19 17:00 105 18 117/59 (78) 100 12/15/19 17:00 26 Mechanical Ventilator 100 12/15/19 17:00 102/66 12/15/19 16:52 108 24 100 12/15/19 16:45 109 14 114/70 (85) 100 12/15/19 16:39 116/67 12/15/19 16:30 104 15 116/67 (83) 100 12/15/19 16:00 Mechanical Ventilator 12/15/19 16:00 100 12/15/19 16:00 99.6 104 16 108/63 (78) 100 12/15/19 16:00 24 Mechanical Ventilator 100 12/15/19 16:00 108/63 12/15/19 16:00 106 12/15/19 15:45 102 18 109/65 (80) 100 12/15/19 15:30 100 16 114/63 (80) 100 12/15/19 15:15 99 17 107/66 (80) 100 12/15/19 15:15 99 24 100 12/15/19 15:00 101 17 96/57 (70) 100 12/15/19 15:00 26 Mechanical Ventilator 100 12/15/19 15:00 107/66 12/15/19 14:45 99 15 103/64 (77) 100 12/15/19 14:30 98 16 114/63 (80) 100 12/15/19 14:15 96 17 113/68 (83) 100 12/15/19 14:00 95 19 111/54 (73) 100 12/15/19 14:00 26 Mechanical Ventilator 100 12/15/19 14:00 113/68 12/15/19 13:45 91 18 108/65 (79) 100 12/15/19 13:30 90 20 105/63 (77) 100 12/15/19 13:15 94 21 105/54 (71) 100 12/15/19 13:04 94 20 100 12/15/19 13:00 94 20 103/54 (70) 100 12/15/19 13:00 26 Mechanical Ventilator 100 12/15/19 13:00 105/54 12/15/19 12:45 96 21 96/51 (66) 100 12/15/19 12:30 93 20 108/54 (72) 100 12/15/19 12:30 96/51 12/15/19 12:15 98.6 90 22 106/51 (69) 100 12/15/19 12:00 91 21 106/51 (69) 100 12/15/19 12:00 88 12/15/19 12:00 100 12/15/19 12:00 26 Mechanical Ventilator 100 12/15/19 12:00 106/51 12/15/19 12:00 Mechanical Ventilator 12/15/19 11:30 96 21 117/62 (80) 100 12/15/19 11:00 26 Mechanical Ventilator 100 12/15/19 11:00 110/62 12/15/19 11:00 95 21 110/62 (78) 100 12/15/19 10:51 95 20 100 12/15/19 10:30 95 21 116/55 (75) 100 12/15/19 10:00 26 Mechanical Ventilator 100 12/15/19 10:00 114/53 12/15/19 10:00 96 18 114/53 (73) 100 Intake and Output 12/15/19 12/16/19 19:00 07:00 Intake Total 1007.69 ml 1085.33 ml Output Total 2230 ml 110 ml Balance -1222.31 ml 975.33 ml Free Water 30 ml IV Total 557.69 ml 665.33 ml Tube Feeding 420 ml 420 ml Output Urine Total 30 ml 10 ml Stool Total 200 ml 100 ml Hemodialysis UF 2000 ml Laboratory Tests 12/16/19 06:10: White Blood Count 33.5*H, Red Blood Count 3.35L, Hemoglobin 9.9L, Hematocrit 31.2L, Mean Corpuscular Volume 93, Mean Corpuscular Hemoglobin 29.7, Mean Corpuscular Hemoglobin Concent 31.9L, Red Cell Distribution Width 13.7, Platelet Count 169, Mean Platelet Volume 8.4, Neutrophils (%) (Auto) , Lymphocytes (%) (Auto) , Monocytes (%) (Auto) , Eosinophils (%) (Auto) , Basophils (%) (Auto) , Neutrophils % (Manual) [Pending], Lymphocytes % (Manual) [Pending], Platelet Estimate [Pending], Platelet Morphology [Pending], Sodium Level 138, Potassium Level 3.8, Chloride Level 100, Carbon Dioxide Level 33H, Anion Gap 5, Blood Urea Nitrogen 52H, Creatinine 4.0H, Estimat Glomerular Filtration Rate 15.5, Glucose Level 154H, Calcium Level 9.3, Total Bilirubin 0.8 , Aspartate Amino Transf (AST/SGOT) 46H, Alanine Aminotransferase (ALT/SGPT) 61 , Alkaline Phosphatase 253H, Total Protein 6.0L, Albumin 2.7L, Globulin 3.3, Albumin/Globulin Ratio 0.8L Height (Feet): 5 Height (Inches): 6.00 Weight (Pounds): 160 Objective General Appearance: other - intubated- proned Lines, tubes and drains: central line HEENT: normocephalic, atraumatic Respiratory/Chest: rhonchi - bilaterally Cardiovascular/Chest: other - tachycardic Extremities: pitting Dorian Soriano M.D. December 16, 2019 09:52
--- NOTE | 2019-12-16 10:20 | General Progress Note ---
Assessment/Plan Problem List: (1) Elevated LFTs ICD Codes: R79.89 - Other specified abnormal findings of blood chemistry SNOMED: 085645250, 187137424 (2) HTN (hypertension) ICD Codes: I10 - Essential (primary) hypertension SNOMED: 79385357 (3) Suspected COVID-19 virus infection ICD Codes: R68.89 - Other general symptoms and signs SNOMED: 293217184 (4) Pneumonia ICD Codes: J18.9 - Pneumonia, unspecified organism SNOMED: 173403303 (5) Respiratory distress ICD Codes: R06.03 - Acute respiratory distress SNOMED: 138512080 (6) Pneumomediastinum ICD Codes: J98.2 - Interstitial emphysema SNOMED: 09022762 (7) COVID-19 ICD Codes: U07.1 - COVID-19 SNOMED: 976572216 (8) Hypotension ICD Codes: I95.9 - Hypotension, unspecified SNOMED: 51773504 Status: unchanged Assessment/Plan: NGTF rectal tube in place elevated LFTS most likely due to shock liver>>> improving repeat labs in am hepatitis panel>>>Neg abd us when off of isolation fu nephrology recent labs and notes reviewed D/W the nurse Subjective ROS Limited/Unobtainable: No Allergies: Coded Allergies: No Known Allergies (Unverified , 11/29/19) Objective Last 24 Hour Vital Signs Date Time Temp Pulse Resp B/P (MAP) Pulse Ox O2 Delivery O2 Flow Rate FiO2 12/16/19 10:00 105 26 146/59 (88) 100 12/16/19 09:30 107 27 140/68 (92) 100 12/16/19 09:00 115 27 119/54 (75) 100 12/16/19 08:30 115 27 113/55 (74) 100 12/16/19 08:00 100 12/16/19 08:00 99.3 116 25 112/51 (71) 98 12/16/19 08:00 Mechanical Ventilator 12/16/19 07:30 113 24 114/50 (71) 98 12/16/19 07:15 111 12/16/19 07:04 113 28 100 12/16/19 07:00 20 Mechanical Ventilator 100 12/16/19 07:00 125/57 12/16/19 07:00 108 25 125/57 (79) 99 12/16/19 06:30 87 19 114/62 (79) 100 12/16/19 06:13 18 Mechanical Ventilator 100 12/16/19 06:00 77 16 119/62 (81) 100 12/16/19 06:00 18 Mechanical Ventilator 100 12/16/19 06:00 119/62 12/16/19 05:30 72 21 100 12/16/19 05:30 72 18 126/60 (82) 100 12/16/19 05:00 73 22 135/70 (91) 100 12/16/19 05:00 22 Mechanical Ventilator 100 12/16/19 05:00 135/70 12/16/19 04:30 84 16 140/79 (99) 100 12/16/19 04:00 Mechanical Ventilator 12/16/19 04:00 97.5 86 18 158/80 (106) 100 12/16/19 04:00 18 Mechanical Ventilator 100 12/16/19 04:00 158/80 12/16/19 04:00 100 12/16/19 04:00 73 12/16/19 03:46 73 26 100 12/16/19 03:30 75 17 156/67 (96) 100 12/16/19 03:00 78 22 158/73 (101) 100 12/16/19 03:00 21 Mechanical Ventilator 100 12/16/19 03:00 158/73 12/16/19 02:30 140/70 12/16/19 02:30 68 21 149/70 (96) 100 12/16/19 02:00 72 21 137/62 (87) 100 12/16/19 02:00 21 Mechanical Ventilator 100 12/16/19 02:00 137/62 12/16/19 01:30 92 24 100 12/16/19 01:30 82 18 135/64 (87) 100 12/16/19 01:30 135/64 12/16/19 01:00 19 Mechanical Ventilator 100 12/16/19 01:00 128/63 12/16/19 01:00 88 19 128/63 (84) 100 12/16/19 00:58 100.3 12/16/19 00:30 91 18 121/60 (80) 100 12/16/19 00:00 100 12/16/19 00:00 Mechanical Ventilator 12/16/19 00:00 18 Mechanical Ventilator 100 12/16/19 00:00 120/59 20 00:00 95 12/16/19 00:00 100.5 91 18 120/59 (79) 100 12/15/19 23:30 84 18 120/55 (76) 100 12/15/19 23:30 16 Mechanical Ventilator 100 12/15/19 23:23 91 23 100 12/15/19 23:00 16 Mechanical Ventilator 100 12/15/19 23:00 114/61 12/15/19 23:00 92 18 114/61 (78) 100 12/15/19 22:30 91 19 120/60 (80) 100 12/15/19 22:20 19 Mechanical Ventilator 100 12/15/19 22:20 120/61 12/15/19 22:00 90 19 120/61 (80) 100 12/15/19 22:00 17 Mechanical Ventilator 100 12/15/19 22:00 113/58 12/15/19 21:30 91 17 116/60 (78) 100 12/15/19 21:30 90 22 100 12/15/19 21:00 93 17 113/58 (76) 100 12/15/19 20:30 92 20 120/56 (77) 100 12/15/19 20:00 95 12/15/19 20:00 Mechanical Ventilator 12/15/19 20:00 100.3 94 18 104/56 (72) 100 12/15/19 20:00 18 Mechanical Ventilator 100 12/15/19 20:00 104/56 12/15/19 20:00 100 12/15/19 19:30 91 24 100 12/15/19 19:30 94 17 100/57 (71) 100 12/15/19 19:00 96 16 106/50 (68) 100 12/15/19 19:00 26 Mechanical Ventilator 100 12/15/19 19:00 116/62 12/15/19 18:30 98 16 110/59 (76) 100 12/15/19 18:00 102 18 107/55 (72) 100 20 18:00 26 Mechanical Ventilator 100 12/15/19 18:00 120/65 12/15/19 17:30 107 17 105/54 (71) 100 12/15/19 17:15 108 20 116/58 (77) 100 12/15/19 17:00 105 18 117/59 (78) 100 12/15/19 17:00 26 Mechanical Ventilator 100 12/15/19 17:00 102/66 12/15/19 16:52 108 24 100 12/15/19 16:45 109 14 114/70 (85) 100 12/15/19 16:39 116/67 12/15/19 16:30 104 15 116/67 (83) 100 12/15/19 16:00 Mechanical Ventilator 12/15/19 16:00 100 12/15/19 16:00 99.6 104 16 108/63 (78) 100 12/15/19 16:00 24 Mechanical Ventilator 100 12/15/19 16:00 108/63 12/15/19 16:00 106 12/15/19 15:45 102 18 109/65 (80) 100 12/15/19 15:30 100 16 114/63 (80) 100 12/15/19 15:15 99 17 107/66 (80) 100 12/15/19 15:15 99 24 100 12/15/19 15:00 101 17 96/57 (70) 100 12/15/19 15:00 26 Mechanical Ventilator 100 12/15/19 15:00 107/66 12/15/19 14:45 99 15 103/64 (77) 100 12/15/19 14:30 98 16 114/63 (80) 100 12/15/19 14:15 96 17 113/68 (83) 100 12/15/19 14:00 95 19 111/54 (73) 100 12/15/19 14:00 26 Mechanical Ventilator 100 12/15/19 14:00 113/68 12/15/19 13:45 91 18 108/65 (79) 100 12/15/19 13:30 90 20 105/63 (77) 100 12/15/19 13:15 94 21 105/54 (71) 100 12/15/19 13:04 94 20 100 12/15/19 13:00 94 20 103/54 (70) 100 12/15/19 13:00 26 Mechanical Ventilator 100 12/15/19 13:00 105/54 12/15/19 12:45 96 21 96/51 (66) 100 12/15/19 12:30 93 20 108/54 (72) 100 12/15/19 12:30 96/51 12/15/19 12:15 98.6 90 22 106/51 (69) 100 12/15/19 12:00 91 21 106/51 (69) 100 12/15/19 12:00 88 12/15/19 12:00 100 12/15/19 12:00 26 Mechanical Ventilator 100 12/15/19 12:00 106/51 12/15/19 12:00 Mechanical Ventilator 12/15/19 11:30 96 21 117/62 (80) 100 12/15/19 11:00 26 Mechanical Ventilator 100 12/15/19 11:00 110/62 12/15/19 11:00 95 21 110/62 (78) 100 12/15/19 10:51 95 20 100 12/15/19 10:30 95 21 116/55 (75) 100 Intake and Output 12/15/19 12/16/19 19:00 07:00 Intake Total 1007.69 ml 1085.33 ml Output Total 2230 ml 110 ml Balance -1222.31 ml 975.33 ml Free Water 30 ml IV Total 557.69 ml 665.33 ml Tube Feeding 420 ml 420 ml Output Urine Total 30 ml 10 ml Stool Total 200 ml 100 ml Hemodialysis UF 2000 ml Laboratory Tests 12/16/19 06:10: White Blood Count 33.5*H, Red Blood Count 3.35L, Hemoglobin 9.9L, Hematocrit 31.2L, Mean Corpuscular Volume 93, Mean Corpuscular Hemoglobin 29.7, Mean Corpuscular Hemoglobin Concent 31.9L, Red Cell Distribution Width 13.7, Platelet Count 169, Mean Platelet Volume 8.4, Neutrophils (%) (Auto) , Lymphocytes (%) (Auto) , Monocytes (%) (Auto) , Eosinophils (%) (Auto) , Basophils (%) (Auto) , Neutrophils % (Manual) [Pending], Lymphocytes % (Manual) [Pending], Platelet Estimate [Pending], Platelet Morphology [Pending], Sodium Level 138, Potassium Level 3.8, Chloride Level 100, Carbon Dioxide Level 33H, Anion Gap 5, Blood Urea Nitrogen 52H, Creatinine 4.0H, Estimat Glomerular Filtration Rate 15.5, Glucose Level 154H, Calcium Level 9.3, Total Bilirubin 0.8 , Aspartate Amino Transf (AST/SGOT) 46H, Alanine Aminotransferase (ALT/SGPT) 61 , Alkaline Phosphatase 253H, Total Protein 6.0L, Albumin 2.7L, Globulin 3.3, Albumin/Globulin Ratio 0.8L Height (Feet): 5 Height (Inches): 6.00 Weight (Pounds): 160 General Appearance: no apparent distress EENT: normal ENT inspection Neck: supple Cardiovascular: tachycardia Respiratory/Chest: decreased breath sounds Abdomen: normal bowel sounds, non tender, soft Extremities: non-tender João Rdz MD December 16, 2019 10:20
--- NOTE | 2019-12-16 10:30 | NUR ---
NURSE NOTES: Spoke to Dr. Cortes regarding placing patient on prone position today, instructed not to place patient on prone.
--- NOTE | 2019-12-16 11:11 | Hematology/Onc Progress Note ---
Assessment/Plan Assessment/Plan # Leukocytosis/elevated white blood cell count, unspecified likely related to underlying stress reaction and addition of infection, covid19++ on vent, intubated --> have reviewed peripheral smear and bandemia/neutrophilia noted --> continue antibiotics if they have been started by ID team --> on broad spectrum abx cefepime/flag/vanc --> monitor for resolution --> smear is noted, with metamyelocytes --> wbc trend 18-->24-->32.9 --> ID is aware --> again ordered peripheral smear for path review # Anemia of chronic disease due to underlying chronic medical issues, multifactorial v Gi bleed --> Anemia workup has been ordered, rule out gi bleed --> No evidence of hemolysis is noted, peripheral smear has been reviewed. --> Hgb goal >7. Transfuse prn. --> Epogen or iron at this time is not particularly indicated --> Medications have been reviewed --> low threshold for gi evaluation in case has occult + ==> hgb trend 11-->10.7-->10.4 # Thrombocytopenia also likely covid related --> supportive care # Acute Hypoxic Respiratory Failure s/p intubation --> now on vent --> as per Dr. Cortes, weaning # COVID19 positive --> abx # Pneumomediastinum --> monitor for expansion # Subcutaneous emphysema --> too high risk for bedside thoracostomy # ALBARO on ckd --> hd as needed --> per renal # 12/04: femoral HD cath placed --> hd prn ANDREW Rn and appreciate consultation Subjective Cardiovascular: Denies: no symptoms, chest pain, edema, irregular heart rate, lightheadedness, palpitations, syncope, other Genitourinary: Denies: no symptoms, burning, discharge, frequency, flank pain, hematuria, incontinence, pain, urgency, other Neurologic/Psychiatric: Denies: no symptoms, anxiety, depressed, emotional problems, headache, numbness, paresthesia, pre-existing deficit, seizure, tingling, tremors, weakness, other Endocrine: Denies: no symptoms, excessive sweating, flushing, intolerance to cold, intolerance to heat, increased hunger, increased thirst, increased urine, unexplained weight gain, unexplained weight loss, other Allergies: Coded Allergies: No Known Allergies (Unverified , 11/29/19) Subjective 12/12 remains on vent, ogtube, barnes and rectal tube emptied, right fem jia line 12/14 icu, prone, levo gtt, multiple abx, labs reviewed 12/15 nonv, no bleeding, remains in vent, no bleeding, wbc high, on abx per id Objective Objective Current Medications Medications (Trade) Dose Ordered Sig/Vicki Route PRN Reason Start Time Stop Time Status Last Admin Dose Admin Acetaminophen (Tylenol) 650 mg Q4H PRN NG Temp >100.5 12/06/19 14:15 01/05/20 14:14 12/16/19 00:28 Acetaminophen (Tylenol) 650 mg Q4H PRN RECTAL Mild Pain (Pain Scale 1-3) 12/04/19 11:45 01/03/20 11:44 12/06/19 19:17 Cefepime HCl 500 mg/Dextrose 50 ml @ 100 mls/hr Q24HRS IV 12/10/19 23:00 12/17/19 22:59 12/15/19 23:33 Chlorhexidine Gluconate (Arely-Hex 2%) 1 applic DAILY@2000 TOPIC 12/05/19 20:00 03/04/20 19:59 12/15/19 20:35 Dextrose (Dextrose 50%) 25 ml Q30M PRN IV Hypoglycemia 11/29/19 14:15 02/27/20 14:14 Dextrose (Dextrose 50%) 50 ml Q30M PRN IV Hypoglycemia 11/29/19 14:15 02/27/20 14:14 Fentanyl Citrate 2500 mcg/Sodium Chloride 250 ml @ 0 mls/hr Q24H IV 12/13/19 00:00 12/20/19 00:00 12/16/19 06:13 Hydralazine HCl (Apresoline) 10 mg Q4H PRN IV For High Blood Pressure 11/29/19 15:15 02/27/20 15:14 Loperamide HCl (Imodium) 2 mg Q6H PRN NG Diarrhea 12/12/19 12:45 01/11/20 12:44 Metronidazole 100 ml @ 100 mls/hr Q8HR IVPB 12/10/19 23:00 12/17/19 22:59 12/16/19 05:47 Midazolam HCl 100 ml @ 0 mls/hr Q24H PRN IV Restlessness 12/16/19 10:45 03/15/20 10:44 Midodrine (Pro-Amatine) 10 mg THREE TIMES A DAY ORAL 12/12/19 13:00 03/11/20 12:59 12/16/19 08:59 Norepinephrine Bitartrate 16 mg/ Dextrose 566 ml @ 0 mls/hr Q24H IV 12/06/19 09:00 01/05/20 08:59 12/15/19 16:39 Ondansetron HCl (Zofran) 4 mg Q6H PRN IVP Nausea & Vomiting 11/29/19 14:15 12/29/19 14:14 Pantoprazole (Protonix) 40 mg DAILY IVP 11/30/19 12:15 12/30/19 12:14 12/16/19 09:00 Potassium Chloride (K-Dur) 40 meq TWICE A DAY ORAL 12/11/19 09:30 03/10/20 09:29 12/16/19 08:59 Vancomycin HCl (Vanco rx to dose) 1 ea DAILY PRN MISC Per rx protocol 12/08/19 19:30 01/07/20 19:29 Vasopressin 100 units/Sodium Chloride 100 ml @ 0 mls/hr Q24H IV 12/06/19 09:00 01/05/20 08:59 12/06/19 09:03 Vitamin B Complex/ Vit C/Folic Acid (Nephrovite) 1 tab DAILY NG 12/16/19 09:00 01/15/20 08:59 12/16/19 08:59 Last 24 Hour Vital Signs Date Time Temp Pulse Resp B/P (MAP) Pulse Ox O2 Delivery O2 Flow Rate FiO2 12/16/19 10:31 106 28 100 12/16/19 10:30 106 26 134/65 (88) 100 12/16/19 10:00 105 26 146/59 (88) 100 12/16/19 10:00 26 Endotracheal Tube 100 12/16/19 10:00 136/58 12/16/19 09:30 107 27 140/68 (92) 100 12/16/19 09:00 115 27 119/54 (75) 100 12/16/19 09:00 27 Endotracheal Tube 100 12/16/19 08:30 115 27 113/55 (74) 100 12/16/19 08:00 100 12/16/19 08:00 99.3 116 25 112/51 (71) 98 12/16/19 08:00 25 Endotracheal Tube 100 12/16/19 08:00 117/53 12/16/19 08:00 Mechanical Ventilator 12/16/19 07:30 113 24 114/50 (71) 98 12/16/19 07:15 111 12/16/19 07:04 113 28 100 12/16/19 07:00 20 Mechanical Ventilator 100 12/16/19 07:00 125/57 12/16/19 07:00 108 25 125/57 (79) 99 12/16/19 06:30 87 19 114/62 (79) 100 12/16/19 06:13 18 Mechanical Ventilator 100 12/16/19 06:00 77 16 119/62 (81) 100 12/16/19 06:00 18 Mechanical Ventilator 100 12/16/19 06:00 119/62 12/16/19 05:30 72 21 100 12/16/19 05:30 72 18 126/60 (82) 100 12/16/19 05:00 73 22 135/70 (91) 100 12/16/19 05:00 22 Mechanical Ventilator 100 12/16/19 05:00 135/70 12/16/19 04:30 84 16 140/79 (99) 100 12/16/19 04:00 Mechanical Ventilator 12/16/19 04:00 97.5 86 18 158/80 (106) 100 12/16/19 04:00 18 Mechanical Ventilator 100 12/16/19 04:00 158/80 12/16/19 04:00 100 12/16/19 04:00 73 12/16/19 03:46 73 26 100 12/16/19 03:30 75 17 156/67 (96) 100 12/16/19 03:00 78 22 158/73 (101) 100 12/16/19 03:00 21 Mechanical Ventilator 100 12/16/19 03:00 158/73 12/16/19 02:30 140/70 12/16/19 02:30 68 21 149/70 (96) 100 12/16/19 02:00 72 21 137/62 (87) 100 12/16/19 02:00 21 Mechanical Ventilator 100 12/16/19 02:00 137/62 12/16/19 01:30 92 24 100 12/16/19 01:30 82 18 135/64 (87) 100 12/16/19 01:30 135/64 12/16/19 01:00 19 Mechanical Ventilator 100 12/16/19 01:00 128/63 12/16/19 01:00 88 19 128/63 (84) 100 12/16/19 00:58 100.3 12/16/19 00:30 91 18 121/60 (80) 100 12/16/19 00:00 100 12/16/19 00:00 Mechanical Ventilator 12/16/19 00:00 18 Mechanical Ventilator 100 12/16/19 00:00 120/59 12/16/19 00:00 95 12/16/19 00:00 100.5 91 18 120/59 (79) 100 12/15/19 23:30 84 18 120/55 (76) 100 12/15/19 23:30 16 Mechanical Ventilator 100 12/15/19 23:23 91 23 100 12/15/19 23:00 16 Mechanical Ventilator 100 12/15/19 23:00 114/61 12/15/19 23:00 92 18 114/61 (78) 100 12/15/19 22:30 91 19 120/60 (80) 100 12/15/19 22:20 19 Mechanical Ventilator 100 12/15/19 22:20 120/61 12/15/19 22:00 90 19 120/61 (80) 100 12/15/19 22:00 17 Mechanical Ventilator 100 12/15/19 22:00 113/58 12/15/19 21:30 91 17 116/60 (78) 100 12/15/19 21:30 90 22 100 12/15/19 21:00 93 17 113/58 (76) 100 12/15/19 20:30 92 20 120/56 (77) 100 12/15/19 20:00 95 12/15/19 20:00 Mechanical Ventilator 12/15/19 20:00 100.3 94 18 104/56 (72) 100 12/15/19 20:00 18 Mechanical Ventilator 100 12/15/19 20:00 104/56 12/15/19 20:00 100 12/15/19 19:30 91 24 100 12/15/19 19:30 94 17 100/57 (71) 100 12/15/19 19:00 96 16 106/50 (68) 100 12/15/19 19:00 26 Mechanical Ventilator 100 12/15/19 19:00 116/62 12/15/19 18:30 98 16 110/59 (76) 100 12/15/19 18:00 102 18 107/55 (72) 100 12/15/19 18:00 26 Mechanical Ventilator 100 12/15/19 18:00 120/65 12/15/19 17:30 107 17 105/54 (71) 100 12/15/19 17:15 108 20 116/58 (77) 100 12/15/19 17:00 105 18 117/59 (78) 100 12/15/19 17:00 26 Mechanical Ventilator 100 12/15/19 17:00 102/66 12/15/19 16:52 108 24 100 12/15/19 16:45 109 14 114/70 (85) 100 12/15/19 16:39 116/67 12/15/19 16:30 104 15 116/67 (83) 100 12/15/19 16:00 Mechanical Ventilator 12/15/19 16:00 100 12/15/19 16:00 99.6 104 16 108/63 (78) 100 12/15/19 16:00 24 Mechanical Ventilator 100 12/15/19 16:00 108/63 12/15/19 16:00 106 12/15/19 15:45 102 18 109/65 (80) 100 12/15/19 15:30 100 16 114/63 (80) 100 12/15/19 15:15 99 17 107/66 (80) 100 12/15/19 15:15 99 24 100 12/15/19 15:00 101 17 96/57 (70) 100 12/15/19 15:00 26 Mechanical Ventilator 100 12/15/19 15:00 107/66 12/15/19 14:45 99 15 103/64 (77) 100 12/15/19 14:30 98 16 114/63 (80) 100 12/15/19 14:15 96 17 113/68 (83) 100 12/15/19 14:00 95 19 111/54 (73) 100 12/15/19 14:00 26 Mechanical Ventilator 100 12/15/19 14:00 113/68 12/15/19 13:45 91 18 108/65 (79) 100 12/15/19 13:30 90 20 105/63 (77) 100 12/15/19 13:15 94 21 105/54 (71) 100 12/15/19 13:04 94 20 100 12/15/19 13:00 94 20 103/54 (70) 100 12/15/19 13:00 26 Mechanical Ventilator 100 12/15/19 13:00 105/54 12/15/19 12:45 96 21 96/51 (66) 100 12/15/19 12:30 93 20 108/54 (72) 100 12/15/19 12:30 96/51 12/15/19 12:15 98.6 90 22 106/51 (69) 100 12/15/19 12:00 91 21 106/51 (69) 100 12/15/19 12:00 88 12/15/19 12:00 100 12/15/19 12:00 26 Mechanical Ventilator 100 12/15/19 12:00 106/51 12/15/19 12:00 Mechanical Ventilator 12/15/19 11:30 96 21 117/62 (80) 100 12/15/19 11:00 26 Mechanical Ventilator 100 12/15/19 11:00 110/62 12/15/19 11:00 95 21 110/62 (78) 100 12/15/19 10:51 95 20 100 12/15/19 10:30 95 21 116/55 (75) 100 12/15/19 10:00 26 Mechanical Ventilator 100 12/15/19 10:00 114/53 12/15/19 10:00 96 18 114/53 (73) 100 12/15/19 09:30 95 12 117/60 (79) 100 12/15/19 09:04 84 22 100 12/15/19 09:00 92 12 119/59 (79) 100 12/15/19 09:00 26 Mechanical Ventilator 100 12/15/19 09:00 116/58 12/15/19 09:00 116/58 12/15/19 08:30 84 11 115/58 (77) 100 12/15/19 08:00 82 12/15/19 08:00 97.6 12/15/19 08:00 26 Mechanical Ventilator 100 12/15/19 08:00 113/64 12/15/19 08:00 82 14 113/64 (80) 100 12/15/19 08:00 Mechanical Ventilator 12/15/19 08:00 100 12/15/19 07:30 82 13 114/55 (74) 100 12/15/19 07:15 80 11 115/60 (78) 100 12/15/19 07:00 83 16 111/60 (77) 100 12/15/19 07:00 26 Mechanical Ventilator 12/15/19 07:00 116/56 12/15/19 06:50 78 22 100 12/15/19 06:30 86 15 115/58 (77) 100 12/15/19 06:00 20 Mechanical Ventilator 100 12/15/19 06:00 114/62 12/15/19 06:00 86 20 114/62 (79) 100 12/15/19 05:30 78 17 118/55 (76) 100 12/15/19 05:00 73 20 110/57 (74) 100 12/15/19 05:00 19 Mechanical Ventilator 100 12/15/19 05:00 109/57 12/15/19 05:00 69 22 100 12/15/19 04:30 71 23 124/61 (82) 100 12/15/19 04:30 71 23 124/61 (82) 100 12/15/19 04:15 79 26 100 12/15/19 04:00 74 12/15/19 04:00 96.0 71 25 124/54 (77) 100 12/15/19 04:00 100 12/15/19 04:00 Mechanical Ventilator 12/15/19 04:00 19 Mechanical Ventilator 100 12/15/19 04:00 142/62 12/15/19 03:30 72 21 108/53 (71) 100 12/15/19 03:00 72 20 115/54 (74) 100 12/15/19 03:00 20 Mechanical Ventilator 100 12/15/19 03:00 117/55 12/15/19 02:52 19 Mechanical Ventilator 100 12/15/19 02:30 75 19 114/53 (73) 100 12/15/19 02:00 75 18 114/52 (72) 100 12/15/19 02:00 20 Mechanical Ventilator 100 12/15/19 02:00 114/54 12/15/19 01:30 71 22 115/55 (75) 100 12/15/19 01:05 74 23 100 5/3/20 01:00 20 Mechanical Ventilator 100 12/15/19 01:00 113/54 12/15/19 01:00 73 21 112/54 (73) 100 12/15/19 00:30 74 21 111/54 (73) 100 12/15/19 00:00 96.0 74 19 117/50 (72) 100 12/15/19 00:00 100 12/15/19 00:00 21 Mechanical Ventilator 100 12/15/19 00:00 112/53 12/15/19 00:00 Mechanical Ventilator 12/15/19 00:00 75 12/14/19 23:30 70 21 115/59 (77) 100 12/14/19 23:00 67 20 119/53 (75) 100 12/14/19 23:00 22 Mechanical Ventilator 100 12/14/19 23:00 116/57 12/14/19 22:55 72 23 100 12/14/19 22:30 77 20 109/54 (72) 100 12/14/19 22:00 79 22 106/45 (65) 100 12/14/19 22:00 22 Mechanical Ventilator 100 12/14/19 22:00 91/46 12/14/19 21:30 75 21 115/57 (76) 100 12/14/19 21:00 78 23 100 12/14/19 21:00 22 Mechanical Ventilator 100 12/14/19 21:00 115/57 12/14/19 21:00 77 23 119/53 (75) 100 12/14/19 20:30 77 20 112/52 (72) 100 12/14/19 20:00 100 12/14/19 20:00 76 12/14/19 20:00 22 Mechanical Ventilator 100 12/14/19 20:00 110/50 12/14/19 20:00 Mechanical Ventilator 12/14/19 20:00 97.6 75 22 111/52 (71) 100 12/14/19 19:30 94 26 122/67 (85) 99 12/14/19 19:28 83 23 100 12/14/19 19:00 86 20 106/53 (70) 100 12/14/19 19:00 20 Mechanical Ventilator 100 12/14/19 19:00 106/53 12/14/19 18:45 87 15 106/52 (70) 100 12/14/19 18:33 88 16 100/55 (70) 100 520 18:30 88 17 100/55 (70) 100 12/14/19 18:15 90 16 110/53 (72) 100 12/14/19 18:00 20 Mechanical Ventilator 100 12/14/19 18:00 112/58 12/14/19 18:00 94 19 112/58 (76) 100 12/14/19 17:45 99 20 113/58 (76) 100 12/14/19 17:30 102 21 104/49 (67) 100 12/14/19 17:20 105 26 100 12/14/19 17:15 99 23 106/49 (68) 80 12/14/19 17:00 107 20 88/50 (63) 99 12/14/19 17:00 20 Mechanical Ventilator 100 12/14/19 17:00 88/60 12/14/19 16:30 104 18 120/60 (80) 99 12/14/19 16:00 110 12/14/19 16:00 Mechanical Ventilator 12/14/19 16:00 20 Mechanical Ventilator 100 12/14/19 16:00 120/63 12/14/19 16:00 99.5 107 17 120/63 (82) 100 12/14/19 15:30 110 20 110/55 (73) 99 12/14/19 15:00 34 Mechanical Ventilator 100 12/14/19 15:00 100/57 12/14/19 15:00 110 34 100/57 (71) 99 12/14/19 14:51 110 21 100 12/14/19 14:30 110 36 104/52 (69) 100 12/14/19 14:00 38 Mechanical Ventilator 100 12/14/19 14:00 100/58 12/14/19 14:00 110 38 100/58 (72) 100 12/14/19 13:57 100 12/14/19 13:36 32 100 12/14/19 13:30 113 33 108/57 (74) 100 12/14/19 13:30 108 20 100 12/14/19 13:00 38 Mechanical Ventilator 100 12/14/19 13:00 101/59 12/14/19 13:00 110 29 119/60 (79) 100 12/14/19 12:30 107 27 97/45 (62) 98 12/14/19 12:00 107 12/14/19 12:00 24 Mechanical Ventilator 100 12/14/19 12:00 94/48 12/14/19 12:00 Mechanical Ventilator 12/14/19 12:00 100 12/14/19 12:00 99.0 105 26 119/60 (79) 99 12/14/19 11:45 106 20 105/53 (70) 98 12/14/19 11:30 105 19 103/58 (73) 98 12/14/19 11:15 110 31 119/63 (81) 100 Intake and Output 12/15/19 12/16/19 19:00 07:00 Intake Total 1007.69 ml 1085.33 ml Output Total 2230 ml 110 ml Balance -1222.31 ml 975.33 ml Free Water 30 ml IV Total 557.69 ml 665.33 ml Tube Feeding 420 ml 420 ml Output Urine Total 30 ml 10 ml Stool Total 200 ml 100 ml Hemodialysis UF 2000 ml Labs Test 12/14/19 04:00 12/14/19 08:50 12/15/19 05:45 12/16/19 06:10 White Blood Count 25.0 K/UL (4.8-10.8) 32.9 K/UL (4.8-10.8) 33.5 K/UL (4.8-10.8) Red Blood Count 3.58 M/UL (4.70-6.10) 3.53 M/UL (4.70-6.10) 3.35 M/UL (4.70-6.10) Hemoglobin 10.7 G/DL (14.2-18.0) 10.4 G/DL (14.2-18.0) 9.9 G/DL (14.2-18.0) Hematocrit 33.3 % (42.0-52.0) 33.1 % (42.0-52.0) 31.2 % (42.0-52.0) Mean Corpuscular Volume 93 FL (80-99) 94 FL (80-99) 93 FL (80-99) Mean Corpuscular Hemoglobin 30.0 PG (27.0-31.0) 29.5 PG (27.0-31.0) 29.7 PG (27.0-31.0) Mean Corpuscular Hemoglobin Concent 32.2 G/DL (32.0-36.0) 31.5 G/DL (32.0-36.0) 31.9 G/DL (32.0-36.0) Red Cell Distribution Width 14.0 % (11.6-14.8) 14.0 % (11.6-14.8) 13.7 % (11.6-14.8) Platelet Count 176 K/UL (150-450) 160 K/UL (150-450) 169 K/UL (150-450) Mean Platelet Volume 9.1 FL (6.5-10.1) 9.1 FL (6.5-10.1) 8.4 FL (6.5-10.1) Neutrophils (%) (Auto) % (45.0-75.0) % (45.0-75.0) % (45.0-75.0) Lymphocytes (%) (Auto) % (20.0-45.0) % (20.0-45.0) % (20.0-45.0) Monocytes (%) (Auto) % (1.0-10.0) % (1.0-10.0) % (1.0-10.0) Eosinophils (%) (Auto) % (0.0-3.0) % (0.0-3.0) % (0.0-3.0) Basophils (%) (Auto) % (0.0-2.0) % (0.0-2.0) % (0.0-2.0) Differential Total Cells Counted 100 100 100 Neutrophils % (Manual) 78 % (45-75) 87 % (45-75) 79 % (45-75) Lymphocytes % (Manual) 4 % (20-45) 5 % (20-45) 4 % (20-45) Monocytes % (Manual) 6 % (1-10) 6 % (1-10) 8 % (1-10) Eosinophils % (Manual) 1 % (0-3) 0 % (0-3) 0 % (0-3) Basophils % (Manual) 0 % (0-2) 0 % (0-2) 0 % (0-2) Metamyelocytes % 1 % (0-0) 1 % (0-0) 2 % (0-0) Myelocytes % 2 % (0-0) 1 % (0-0) Band Neutrophils 8 % (0-8) 0 % (0-8) 7 % (0-8) Platelet Estimate Adequate Adequate Adequate Platelet Morphology Normal Normal Normal Red Blood Cell Morphology Normal Sodium Level 139 MMOL/L (136-145) 142 MMOL/L (136-145) 138 MMOL/L (136-145) Potassium Level 4.3 MMOL/L (3.5-5.1) 4.6 MMOL/L (3.5-5.1) 3.8 MMOL/L (3.5-5.1) Chloride Level 97 MMOL/L (98-107) 105 MMOL/L (98-107) 100 MMOL/L (98-107) Carbon Dioxide Level 34 MMOL/L (21-32) 31 MMOL/L (21-32) 33 MMOL/L (21-32) Anion Gap 8 mmol/L (5-15) 6 mmol/L (5-15) 5 mmol/L (5-15) Blood Urea Nitrogen 35 mg/dL (7-18) 55 mg/dL (7-18) 52 mg/dL (7-18) Creatinine 3.8 MG/DL (0.55-1.30) 4.5 MG/DL (0.55-1.30) 4.0 MG/DL (0.55-1.30) Estimat Glomerular Filtration Rate 16.4 mL/min (>60) 13.5 mL/min (>60) 15.5 mL/min (>60) Glucose Level 147 MG/DL (74-106) 166 MG/DL (74-106) 154 MG/DL (74-106) Calcium Level 8.9 MG/DL (8.5-10.1) 9.4 MG/DL (8.5-10.1) 9.3 MG/DL (8.5-10.1) Total Bilirubin 1.5 MG/DL (0.2-1.0) 1.0 MG/DL (0.2-1.0) 0.8 MG/DL (0.2-1.0) Direct Bilirubin 1.1 MG/DL (0.0-0.3) Aspartate Amino Transf (AST/SGOT) 62 U/L (15-37) 64 U/L (15-37) 46 U/L (15-37) Alanine Aminotransferase (ALT/SGPT) 98 U/L (12-78) 86 U/L (12-78) 61 U/L (12-78) Alkaline Phosphatase 226 U/L (46-116) 258 U/L (46-116) 253 U/L (46-116) Total Protein 6.2 G/DL (6.4-8.2) 6.3 G/DL (6.4-8.2) 6.0 G/DL (6.4-8.2) Albumin 3.1 G/DL (3.4-5.0) 2.8 G/DL (3.4-5.0) 2.7 G/DL (3.4-5.0) Globulin 3.1 g/dL 3.5 g/dL 3.3 g/dL Albumin/Globulin Ratio 1.0 (1.0-2.7) 0.8 (1.0-2.7) 0.8 (1.0-2.7) Arterial Blood pH 7.146 (7.350-7.450) Arterial Blood Partial Pressure CO2 101.2 mmHg (35.0-45.0) Arterial Blood Partial Pressure O2 193.5 mmHg (75.0-100.0) Arterial Blood HCO3 34.1 mmol/L (22.0-26.0) Arterial Blood Oxygen Saturation 98.4 % (95-100) Arterial Blood Base Excess 3.0 (-2-2) Melecio Test Positive Random Vancomycin Level 7.9 ug/mL Hypochromasia 2+ Anisocytosis 1+ Height (Feet): 5 Height (Inches): 6.00 Weight (Pounds): 160 Objective General Appearance: prone position on vent Heent: nc, at+ ng Respiratory: normal breath sounds, no retraction, vent++ Cardiovascular: no edema, tachycardia Gastrointestinal: normal inspection Neurologic unresponsive on vent Psychiatric: judgement/insight normal, memory normal, mood/affect normal, no suicidal/homicidal ideation Ext: with hd fem jia in place : + barnes and rectal tube Mj Zhu MD December 16, 2019 11:11
--- NOTE | 2019-12-16 11:48 | General Progress Note ---
Assessment/Plan Status: unchanged Assessment/Plan: 59-year-old male with PMH of HTN presents with acute respiratory distress. #Acute Hypoxic Respiratory Failure s/p intubation #Severe sepsis #COVID19 positive #CAP #elevated d-dimer #Fevers - improved -Appreciate ICU level of care -s/p Intubation 12/03 -vent management per Pulm/ICU/CCM team -cont. droplet & isolation precautions -Transaminitis/d-dimer/fluctuating fevers likely reactive/ 2/2 COVID -cont. to monitor LFTs -sedation per pulm/ICU -s/p hydroxychloroquine -s/p actrema -prone position per Pulm -Pulm following, recs appreciated -ID, Dr. Rodriguez, following: cont. Vanc, cefepime, flagyl -cont. current management per ID/Pulm -d/w ID, will repeat BCx, SCx given persistent fevers and worsening leukocytosis #loose stools -c diff negative -d/c PO vanco -immodium PRN #Pneumomediastinum #Subcutaneous emphysema -seen on abd XR -pt too high risk for bedside thoracostomy -d/w general sx and pulm/ICU #ALBARO #Hypernatremia #Hyperkalemia -likely 2/2 to above, COVID -s/p kayexalate, insulin, D5 for hyperkalemia -cont. to montior -12/04: femoral HD cath placed -d/w Nephro, Dr. Soriano: HD per nephro, plan for HD again today #Transaminitis - downtrending #Shock Liver -improved -likely 2/2 to above/COVID -LFTs improving, ctm -abd us when off isolation -cont. NGT feeds -GI, Dr. Rdz, following, recs appreciated #Sinus Tachycardia 2/2 respiratory failure #HTN -hydralazine PRN -Cardio, , following: Echo after COVID negative DVT PPX: Lovenox Pt is at high risk of rapid decompensation and requires continued ICU level of care Prognosis grave/poor Time spent on encounter: 55 mins, 32 mins spent on critical care time. Critical Care Services performed include: Telemetry Review Hemodynamic measurement interpretation Laboratory data review and interpretation Radiology image review and interpretation Interpretation of ABG's Discussion of patient's care with ICU team, Nursing staff and/or consulting services, ID, Dr Rodriguez, Dr. Soriano. Time of note doesn't reflect time of encounter. Subjective Allergies: Coded Allergies: No Known Allergies (Unverified , 11/29/19) Subjective Follow up for acute hypoxic resp failure, COVID19 positive, intubation/sedated, multi-organ failure. Remains intubated, sedated on pressure support. Tm 100.5 WBC uptrending. Per nurse, pt with respiratory secretions Unable to obtain ROS due to clinical picture. Objective Last 24 Hour Vital Signs Date Time Temp Pulse Resp B/P (MAP) Pulse Ox O2 Delivery O2 Flow Rate FiO2 12/16/19 11:00 25 Endotracheal Tube 100 12/16/19 11:00 126/63 12/16/19 11:00 107 25 126/63 (84) 100 12/16/19 10:31 106 28 100 12/16/19 10:30 106 26 134/65 (88) 100 12/16/19 10:00 105 26 146/59 (88) 100 12/16/19 10:00 26 Endotracheal Tube 100 12/16/19 10:00 136/58 12/16/19 09:30 107 27 140/68 (92) 100 12/16/19 09:00 115 27 119/54 (75) 100 12/16/19 09:00 27 Endotracheal Tube 100 12/16/19 08:30 115 27 113/55 (74) 100 12/16/19 08:00 100 12/16/19 08:00 99.3 116 25 112/51 (71) 98 12/16/19 08:00 25 Endotracheal Tube 100 12/16/19 08:00 117/53 12/16/19 08:00 Mechanical Ventilator 12/16/19 07:30 113 24 114/50 (71) 98 12/16/19 07:15 111 12/16/19 07:04 113 28 100 12/16/19 07:00 20 Mechanical Ventilator 100 12/16/19 07:00 125/57 12/16/19 07:00 108 25 125/57 (79) 99 12/16/19 06:30 87 19 114/62 (79) 100 12/16/19 06:13 18 Mechanical Ventilator 100 12/16/19 06:00 77 16 119/62 (81) 100 12/16/19 06:00 18 Mechanical Ventilator 100 12/16/19 06:00 119/62 12/16/19 05:30 72 21 100 12/16/19 05:30 72 18 126/60 (82) 100 12/16/19 05:00 73 22 135/70 (91) 100 12/16/19 05:00 22 Mechanical Ventilator 100 12/16/19 05:00 135/70 12/16/19 04:30 84 16 140/79 (99) 100 12/16/19 04:00 Mechanical Ventilator 12/16/19 04:00 97.5 86 18 158/80 (106) 100 12/16/19 04:00 18 Mechanical Ventilator 100 12/16/19 04:00 158/80 12/16/19 04:00 100 12/16/19 04:00 73 12/16/19 03:46 73 26 100 12/16/19 03:30 75 17 156/67 (96) 100 12/16/19 03:00 78 22 158/73 (101) 100 12/16/19 03:00 21 Mechanical Ventilator 100 12/16/19 03:00 158/73 12/16/19 02:30 140/70 12/16/19 02:30 68 21 149/70 (96) 100 12/16/19 02:00 72 21 137/62 (87) 100 12/16/19 02:00 21 Mechanical Ventilator 100 12/16/19 02:00 137/62 12/16/19 01:30 92 24 100 12/16/19 01:30 82 18 135/64 (87) 100 12/16/19 01:30 135/64 12/16/19 01:00 19 Mechanical Ventilator 100 12/16/19 01:00 128/63 12/16/19 01:00 88 19 128/63 (84) 100 12/16/19 00:58 100.3 12/16/19 00:30 91 18 121/60 (80) 100 12/16/19 00:00 100 12/16/19 00:00 Mechanical Ventilator 12/16/19 00:00 18 Mechanical Ventilator 100 12/16/19 00:00 120/59 12/16/19 00:00 95 12/16/19 00:00 100.5 91 18 120/59 (79) 100 12/15/19 23:30 84 18 120/55 (76) 100 12/15/19 23:30 16 Mechanical Ventilator 100 12/15/19 23:23 91 23 100 12/15/19 23:00 16 Mechanical Ventilator 100 12/15/19 23:00 114/61 5 23:00 92 18 114/61 (78) 100 12/15/19 22:30 91 19 120/60 (80) 100 12/15/19 22:20 19 Mechanical Ventilator 100 12/15/19 22:20 120/61 12/15/19 22:00 90 19 120/61 (80) 100 12/15/19 22:00 17 Mechanical Ventilator 100 12/15/19 22:00 113/58 12/15/19 21:30 91 17 116/60 (78) 100 12/15/19 21:30 90 22 100 12/15/19 21:00 93 17 113/58 (76) 100 12/15/19 20:30 92 20 120/56 (77) 100 12/15/19 20:00 95 12/15/19 20:00 Mechanical Ventilator 12/15/19 20:00 100.3 94 18 104/56 (72) 100 12/15/19 20:00 18 Mechanical Ventilator 100 12/15/19 20:00 104/56 12/15/19 20:00 100 12/15/19 19:30 91 24 100 12/15/19 19:30 94 17 100/57 (71) 100 12/15/19 19:00 96 16 106/50 (68) 100 12/15/19 19:00 26 Mechanical Ventilator 100 12/15/19 19:00 116/62 12/15/19 18:30 98 16 110/59 (76) 100 12/15/19 18:00 102 18 107/55 (72) 100 12/15/19 18:00 26 Mechanical Ventilator 100 12/15/19 18:00 120/65 12/15/19 17:30 107 17 105/54 (71) 100 12/15/19 17:15 108 20 116/58 (77) 100 12/15/19 17:00 105 18 117/59 (78) 100 12/15/19 17:00 26 Mechanical Ventilator 100 12/15/19 17:00 102/66 12/15/19 16:52 108 24 100 12/15/19 16:45 109 14 114/70 (85) 100 12/15/19 16:39 116/67 12/15/19 16:30 104 15 116/67 (83) 100 12/15/19 16:00 Mechanical Ventilator 12/15/19 16:00 100 12/15/19 16:00 99.6 104 16 108/63 (78) 100 12/15/19 16:00 24 Mechanical Ventilator 100 12/15/19 16:00 108/63 12/15/19 16:00 106 12/15/19 15:45 102 18 109/65 (80) 100 12/15/19 15:30 100 16 114/63 (80) 100 12/15/19 15:15 99 17 107/66 (80) 100 12/15/19 15:15 99 24 100 12/15/19 15:00 101 17 96/57 (70) 100 12/15/19 15:00 26 Mechanical Ventilator 100 12/15/19 15:00 107/66 12/15/19 14:45 99 15 103/64 (77) 100 12/15/19 14:30 98 16 114/63 (80) 100 12/15/19 14:15 96 17 113/68 (83) 100 12/15/19 14:00 95 19 111/54 (73) 100 12/15/19 14:00 26 Mechanical Ventilator 100 12/15/19 14:00 113/68 12/15/19 13:45 91 18 108/65 (79) 100 12/15/19 13:30 90 20 105/63 (77) 100 12/15/19 13:15 94 21 105/54 (71) 100 12/15/19 13:04 94 20 100 12/15/19 13:00 94 20 103/54 (70) 100 12/15/19 13:00 26 Mechanical Ventilator 100 12/15/19 13:00 105/54 12/15/19 12:45 96 21 96/51 (66) 100 12/15/19 12:30 93 20 108/54 (72) 100 12/15/19 12:30 96/51 12/15/19 12:15 98.6 90 22 106/51 (69) 100 12/15/19 12:00 91 21 106/51 (69) 100 12/15/19 12:00 88 12/15/19 12:00 100 12/15/19 12:00 26 Mechanical Ventilator 100 12/15/19 12:00 106/51 12/15/19 12:00 Mechanical Ventilator Intake and Output 12/15/19 12/16/19 19:00 07:00 Intake Total 1007.69 ml 1085.33 ml Output Total 2230 ml 110 ml Balance -1222.31 ml 975.33 ml Free Water 30 ml IV Total 557.69 ml 665.33 ml Tube Feeding 420 ml 420 ml Output Urine Total 30 ml 10 ml Stool Total 200 ml 100 ml Hemodialysis UF 2000 ml Laboratory Tests 12/16/19 06:10: White Blood Count 33.5*H, Red Blood Count 3.35L, Hemoglobin 9.9L, Hematocrit 31.2L, Mean Corpuscular Volume 93, Mean Corpuscular Hemoglobin 29.7, Mean Corpuscular Hemoglobin Concent 31.9L, Red Cell Distribution Width 13.7, Platelet Count 169, Mean Platelet Volume 8.4, Neutrophils (%) (Auto) , Lymphocytes (%) (Auto) , Monocytes (%) (Auto) , Eosinophils (%) (Auto) , Basophils (%) (Auto) , Differential Total Cells Counted 100, Neutrophils % ( Manual) 79H, Lymphocytes % (Manual) 4L, Monocytes % (Manual) 8, Eosinophils % ( Manual) 0, Basophils % (Manual) 0, Metamyelocytes % 2H, Band Neutrophils 7, Platelet Estimate Adequate, Platelet Morphology Normal, Hypochromasia 2+, Anisocytosis 1+, Sodium Level 138, Potassium Level 3.8, Chloride Level 100, Carbon Dioxide Level 33H, Anion Gap 5, Blood Urea Nitrogen 52H, Creatinine 4.0H , Estimat Glomerular Filtration Rate 15.5, Glucose Level 154H, Calcium Level 9.3 , Total Bilirubin 0.8, Aspartate Amino Transf (AST/SGOT) 46H, Alanine Aminotransferase (ALT/SGPT) 61, Alkaline Phosphatase 253H, Total Protein 6.0L, Albumin 2.7L, Globulin 3.3, Albumin/Globulin Ratio 0.8L Height (Feet): 5 Height (Inches): 6.00 Weight (Pounds): 160 Objective General Appearance: intubated, OG tube in place, in prone position Cardiovascular: sinus tach on tele, HR 111 Respiratory/Chest: ETT in place, equal rise in lungs b/l Abdomen: non distended Ext: no edema noted Theodore Aguayo M.D. December 16, 2019 11:48
--- NOTE | 2019-12-16 12:00 | Pulmonology Progress Note ---
Assessment/Plan Assessment/Plan IMPRESSION: 1. Bilateral pneumonia. 2. Positive COVID-19. 3. Respiratory failure. DISCUSSION: Intubated On AC 20; FiO2 100; PEEP 7; SaO2 99% Abd Xray shows mediastinal PTX Recent CXR 12/06; no PTX or pneumomediastinum seen Repeat CXR today again shows mediastinal PTX Continue proning On Fentanyl due to high triglycerides Hold further proning Saturations are better Grave prognosis I will follow carefully. On HD now S/p Actemra Blood CS ? contaminant Needs ongoing HD; more ultrafiltration Urine CS negative Will decrease PEEP to 5 Sushil Cortes M.D. Subjective ROS Limited/Unobtainable: No Interval Events: Intubated ;proning continuing but now on hold due to facial decubitus Constitutional: Reports: fever - less, other - on vent and pressors HEENT: Repors: no symptoms Respiratory: Reports: no symptoms Cardiovascular: Reports: no symptoms Gastrointestinal/Abdominal: Denies: nausea, vomiting, diarrhea Genitourinary: Reports: no symptoms Psychiatric: Reports: other - NA Skin: Denies: rash Musculoskeletal: Reports: other - NA Allergies: Coded Allergies: No Known Allergies (Unverified , 11/29/19) All Systems: reviewed and negative except above Objective Last 24 Hour Vital Signs Date Time Temp Pulse Resp B/P (MAP) Pulse Ox O2 Delivery O2 Flow Rate FiO2 12/16/19 11:30 111 26 128/52 (77) 100 12/16/19 11:00 25 Endotracheal Tube 100 12/16/19 11:00 126/63 12/16/19 11:00 107 25 126/63 (84) 100 12/16/19 10:31 106 28 100 12/16/19 10:30 106 26 134/65 (88) 100 12/16/19 10:00 105 26 146/59 (88) 100 12/16/19 10:00 26 Endotracheal Tube 100 12/16/19 10:00 136/58 12/16/19 09:30 107 27 140/68 (92) 100 12/16/19 09:00 115 27 119/54 (75) 100 12/16/19 09:00 27 Endotracheal Tube 100 12/16/19 08:30 115 27 113/55 (74) 100 12/16/19 08:00 100 12/16/19 08:00 99.3 116 25 112/51 (71) 98 12/16/19 08:00 25 Endotracheal Tube 100 12/16/19 08:00 117/53 12/16/19 08:00 Mechanical Ventilator 12/16/19 07:30 113 24 114/50 (71) 98 12/16/19 07:15 111 12/16/19 07:04 113 28 100 12/16/19 07:00 20 Mechanical Ventilator 100 12/16/19 07:00 125/57 12/16/19 07:00 108 25 125/57 (79) 99 12/16/19 06:30 87 19 114/62 (79) 100 12/16/19 06:13 18 Mechanical Ventilator 100 12/16/19 06:00 77 16 119/62 (81) 100 12/16/19 06:00 18 Mechanical Ventilator 100 12/16/19 06:00 119/62 12/16/19 05:30 72 21 100 12/16/19 05:30 72 18 126/60 (82) 100 12/16/19 05:00 73 22 135/70 (91) 100 12/16/19 05:00 22 Mechanical Ventilator 100 12/16/19 05:00 135/70 12/16/19 04:30 84 16 140/79 (99) 100 12/16/19 04:00 Mechanical Ventilator 12/16/19 04:00 97.5 86 18 158/80 (106) 100 12/16/19 04:00 18 Mechanical Ventilator 100 12/16/19 04:00 158/80 12/16/19 04:00 100 12/16/19 04:00 73 12/16/19 03:46 73 26 100 12/16/19 03:30 75 17 156/67 (96) 100 12/16/19 03:00 78 22 158/73 (101) 100 12/16/19 03:00 21 Mechanical Ventilator 100 12/16/19 03:00 158/73 12/16/19 02:30 140/70 12/16/19 02:30 68 21 149/70 (96) 100 12/16/19 02:00 72 21 137/62 (87) 100 12/16/19 02:00 21 Mechanical Ventilator 100 12/16/19 02:00 137/62 12/16/19 01:30 92 24 100 12/16/19 01:30 82 18 135/64 (87) 100 12/16/19 01:30 135/64 12/16/19 01:00 19 Mechanical Ventilator 100 12/16/19 01:00 128/63 12/16/19 01:00 88 19 128/63 (84) 100 12/16/19 00:58 100.3 12/16/19 00:30 91 18 121/60 (80) 100 12/16/19 00:00 100 12/16/19 00:00 Mechanical Ventilator 12/16/19 00:00 18 Mechanical Ventilator 100 12/16/19 00:00 120/59 12/16/19 00:00 95 12/16/19 00:00 100.5 91 18 120/59 (79) 100 12/15/19 23:30 84 18 120/55 (76) 100 12/15/19 23:30 16 Mechanical Ventilator 100 12/15/19 23:23 91 23 100 12/15/19 23:00 16 Mechanical Ventilator 100 12/15/19 23:00 114/61 12/15/19 23:00 92 18 114/61 (78) 100 12/15/19 22:30 91 19 120/60 (80) 100 12/15/19 22:20 19 Mechanical Ventilator 100 12/15/19 22:20 120/61 12/15/19 22:00 90 19 120/61 (80) 100 12/15/19 22:00 17 Mechanical Ventilator 100 12/15/19 22:00 113/58 12/15/19 21:30 91 17 116/60 (78) 100 12/15/19 21:30 90 22 100 12/15/19 21:00 93 17 113/58 (76) 100 12/15/19 20:30 92 20 120/56 (77) 100 12/15/19 20:00 95 12/15/19 20:00 Mechanical Ventilator 12/15/19 20:00 100.3 94 18 104/56 (72) 100 12/15/19 20:00 18 Mechanical Ventilator 100 12/15/19 20:00 104/56 12/15/19 20:00 100 12/15/19 19:30 91 24 100 12/15/19 19:30 94 17 100/57 (71) 100 12/15/19 19:00 96 16 106/50 (68) 100 12/15/19 19:00 26 Mechanical Ventilator 100 12/15/19 19:00 116/62 12/15/19 18:30 98 16 110/59 (76) 100 12/15/19 18:00 102 18 107/55 (72) 100 12/15/19 18:00 26 Mechanical Ventilator 100 12/15/19 18:00 120/65 12/15/19 17:30 107 17 105/54 (71) 100 12/15/19 17:15 108 20 116/58 (77) 100 12/15/19 17:00 105 18 117/59 (78) 100 12/15/19 17:00 26 Mechanical Ventilator 100 12/15/19 17:00 102/66 12/15/19 16:52 108 24 100 12/15/19 16:45 109 14 114/70 (85) 100 12/15/19 16:39 116/67 12/15/19 16:30 104 15 116/67 (83) 100 12/15/19 16:00 Mechanical Ventilator 12/15/19 16:00 100 12/15/19 16:00 99.6 104 16 108/63 (78) 100 12/15/19 16:00 24 Mechanical Ventilator 100 12/15/19 16:00 108/63 12/15/19 16:00 106 12/15/19 15:45 102 18 109/65 (80) 100 12/15/19 15:30 100 16 114/63 (80) 100 12/15/19 15:15 99 17 107/66 (80) 100 12/15/19 15:15 99 24 100 12/15/19 15:00 101 17 96/57 (70) 100 12/15/19 15:00 26 Mechanical Ventilator 100 12/15/19 15:00 107/66 12/15/19 14:45 99 15 103/64 (77) 100 12/15/19 14:30 98 16 114/63 (80) 100 12/15/19 14:15 96 17 113/68 (83) 100 12/15/19 14:00 95 19 111/54 (73) 100 12/15/19 14:00 26 Mechanical Ventilator 100 12/15/19 14:00 113/68 12/15/19 13:45 91 18 108/65 (79) 100 12/15/19 13:30 90 20 105/63 (77) 100 12/15/19 13:15 94 21 105/54 (71) 100 12/15/19 13:04 94 20 100 12/15/19 13:00 94 20 103/54 (70) 100 12/15/19 13:00 26 Mechanical Ventilator 100 12/15/19 13:00 105/54 12/15/19 12:45 96 21 96/51 (66) 100 12/15/19 12:30 93 20 108/54 (72) 100 12/15/19 12:30 96/51 12/15/19 12:15 98.6 90 22 106/51 (69) 100 12/15/19 12:00 91 21 106/51 (69) 100 12/15/19 12:00 88 12/15/19 12:00 100 12/15/19 12:00 26 Mechanical Ventilator 100 12/15/19 12:00 106/51 12/15/19 12:00 Mechanical Ventilator Intake and Output 12/15/19 12/16/19 19:00 07:00 Intake Total 1007.69 ml 1085.33 ml Output Total 2230 ml 110 ml Balance -1222.31 ml 975.33 ml Free Water 30 ml IV Total 557.69 ml 665.33 ml Tube Feeding 420 ml 420 ml Output Urine Total 30 ml 10 ml Stool Total 200 ml 100 ml Hemodialysis UF 2000 ml General Appearance: other - on vent, pressors and sedated HEENT: normocephalic, atraumatic, anicteric, no JVD, other - oral - intubated Respiratory/Chest: chest wall non-tender, lungs clear Cardiovascular: normal peripheral pulses, normal rate Abdomen: normal bowel sounds, soft, non tender, no organomegaly, non distended Genitourinary: other - + barnes - urine slt cloudy Extremities: no cyanosis Skin: no rash 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/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, alert, responsive Lymphatic: no neck adenopathy Musculoskeletal: no effusion Laboratory Tests 12/16/19 06:10: White Blood Count 33.5*H, Red Blood Count 3.35L, Hemoglobin 9.9L, Hematocrit 31.2L, Mean Corpuscular Volume 93, Mean Corpuscular Hemoglobin 29.7, Mean Corpuscular Hemoglobin Concent 31.9L, Red Cell Distribution Width 13.7, Platelet Count 169, Mean Platelet Volume 8.4, Neutrophils (%) (Auto) , Lymphocytes (%) (Auto) , Monocytes (%) (Auto) , Eosinophils (%) (Auto) , Basophils (%) (Auto) , Differential Total Cells Counted 100, Neutrophils % ( Manual) 79H, Lymphocytes % (Manual) 4L, Monocytes % (Manual) 8, Eosinophils % ( Manual) 0, Basophils % (Manual) 0, Metamyelocytes % 2H, Band Neutrophils 7, Platelet Estimate Adequate, Platelet Morphology Normal, Hypochromasia 2+, Anisocytosis 1+, Sodium Level 138, Potassium Level 3.8, Chloride Level 100, Carbon Dioxide Level 33H, Anion Gap 5, Blood Urea Nitrogen 52H, Creatinine 4.0H , Estimat Glomerular Filtration Rate 15.5, Glucose Level 154H, Calcium Level 9.3 , Iron Level [Pending], Unsaturated Iron Binding [Pending], Ferritin [Pending], Total Bilirubin 0.8, Aspartate Amino Transf (AST/SGOT) 46H, Alanine Aminotransferase (ALT/SGPT) 61, Alkaline Phosphatase 253H, Total Protein 6.0L, Albumin 2.7L, Globulin 3.3, Albumin/Globulin Ratio 0.8L, Carcinoembryonic Antigen [Pending], Vitamin B12 Level [Pending], Folate [Pending], Thyroid Stimulating Hormone (TSH) [Pending] 12/16/19 11:36: Arterial Blood pH 7.226*L, Arterial Blood Partial Pressure CO2 80.7*H, Arterial Blood Partial Pressure O2 114.6H, Arterial Blood HCO3 32.7H, Arterial Blood Oxygen Saturation 97.4, Arterial Blood Base Excess 3.3H, Melecio Test Positive Current Medications Medications (Trade) Dose Ordered Sig/Vicki Route PRN Reason Start Time Stop Time Status Last Admin Dose Admin Acetaminophen (Tylenol) 650 mg Q4H PRN NG Temp >100.5 12/06/19 14:15 01/05/20 14:14 12/16/19 00:28 Acetaminophen (Tylenol) 650 mg Q4H PRN RECTAL Mild Pain (Pain Scale 1-3) 12/04/19 11:45 5/22/20 11:44 12/06/19 19:17 Cefepime HCl 500 mg/Dextrose 50 ml @ 100 mls/hr Q24HRS IV 12/10/19 23:00 12/17/19 22:59 12/15/19 23:33 Chlorhexidine Gluconate (Arely-Hex 2%) 1 applic DAILY@2000 TOPIC 12/05/19 20:00 03/04/20 19:59 12/15/19 20:35 Dextrose (Dextrose 50%) 25 ml Q30M PRN IV Hypoglycemia 11/29/19 14:15 02/27/20 14:14 Dextrose (Dextrose 50%) 50 ml Q30M PRN IV Hypoglycemia 11/29/19 14:15 02/27/20 14:14 Fentanyl Citrate 2500 mcg/Sodium Chloride 250 ml @ 0 mls/hr Q24H IV 12/13/19 00:00 12/20/19 00:00 12/16/19 06:13 Hydralazine HCl (Apresoline) 10 mg Q4H PRN IV For High Blood Pressure 11/29/19 15:15 02/27/20 15:14 Loperamide HCl (Imodium) 2 mg Q6H PRN NG Diarrhea 12/12/19 12:45 01/11/20 12:44 Metronidazole 100 ml @ 100 mls/hr Q8HR IVPB 12/10/19 23:00 12/17/19 22:59 12/16/19 05:47 Midazolam HCl 100 ml @ 0 mls/hr Q24H PRN IV Restlessness 12/16/19 10:45 03/15/20 10:44 Midodrine (Pro-Amatine) 10 mg THREE TIMES A DAY ORAL 12/12/19 13:00 03/11/20 12:59 12/16/19 08:59 Norepinephrine Bitartrate 16 mg/ Dextrose 566 ml @ 0 mls/hr Q24H IV 12/06/19 09:00 01/05/20 08:59 12/15/19 16:39 Ondansetron HCl (Zofran) 4 mg Q6H PRN IVP Nausea & Vomiting 11/29/19 14:15 12/29/19 14:14 Pantoprazole (Protonix) 40 mg DAILY IVP 11/30/19 12:15 12/30/19 12:14 12/16/19 09:00 Potassium Chloride (K-Dur) 40 meq TWICE A DAY ORAL 12/11/19 09:30 03/10/20 09:29 12/16/19 08:59 Vancomycin HCl (Vanco rx to dose) 1 ea DAILY PRN MISC Per rx protocol 12/08/19 19:30 01/07/20 19:29 Vasopressin 100 units/Sodium Chloride 100 ml @ 0 mls/hr Q24H IV 12/06/19 09:00 01/05/20 08:59 12/06/19 09:03 Vitamin B Complex/ Vit C/Folic Acid (Nephrovite) 1 tab DAILY NG 12/16/19 09:00 01/15/20 08:59 12/16/19 08:59 Sushil Cortes MD December 16, 2019 12:00
[2019-12-16 12:07] LABS: FERRITIN 783 NG/ML (8-388)
--- NOTE | 2019-12-16 12:16 | Diagnostic Imaging Report ---
Indication: Shortness of breath Technique: One view of the chest Comparison: 12/15/2019 Findings: Diffuse and extensive bilateral hazy infiltrates are unchanged. Stable position of endotracheal and nasogastric tubes. Normal heart size. Findings are unchanged Impression: Unchanged, over one day, findings as above.
[2019-12-16 12:22] LABS: % IRON SATURATION 13 % (15-50); IRON 23 ug/dL (50-175); TOTAL IRON BINDING CAPACITY 180 ug/dL (250-450)
--- NOTE | 2019-12-16 13:31 | NUR ---
CASE MANAGEMENT: REVIEW SI: COVID-19 . BILATERAL PNA . INTUBATED RIGHT FEMORAL TEMP HD CATH PLACEMENT 12/04 T 100.5 HR 115 RR 26 BP 113/55 SAT 98% MECH VENT FIO2 100 WBC 33.5 H/H 9.9/31.2 BUN 52 CR 4.0 ABG: PH 7.226 PCO2 80.7 PO2 114.5 HCO3 32.7 BLOOD CX PENDING SPUTUM CX PENDING IS: VASOPRESSIN IV Q24HR LEVOPHED IV Q24HR FENTANYL IV Q24HR CEFEPIME IV Q24HR FLAGYL IV Q8HR HD PRN NGT FEEDING ICU STATUS DCP: PATIENT IS FROM HOME
--- NOTE | 2019-12-16 13:40 | NUR ---
NURSE NOTES: Patient is currently receiving dialysis. Medications given as prescribed, no adverse reactions noted. Addendum: 12/16/19 at 1402 by Юлия Santos RN NURSE NOTES: Patient is currently receiving dialysis. Medications given as prescribed, no adverse reactions noted. Oral care and suctioning given to patient, no signs of acute distress.
--- NOTE | 2019-12-16 13:56 | Cardiac Electrophysiology PN ---
Assessment/Plan Assessment/Plan 1. Atrial fib with RVR 170 before intubation on 12/04/19. Converted to Sinus tach Troponin 0.77. No further atrial fib. In SR 2. Sinus Tachycardia due to respiratory failure and COVID-19 pneumonia. On IV antibiotic per ID. Echo pending. 3. Septic shock. On Levophed 5 Mcg, Midodrine 10 tid and iv Abx. 4. Respiratory failure, on the Vent by Dr. Cortes. 100% Fio2 PEEP 10 5. Acute renal failure. On HD per Dr. Sanchez via RFV [place] 6. Full code DW RN Subjective Subjective Intubated in ICU on 100% Fio2 and PEEP 10 on Levo 5 mcg . Atrial fib with RVR 160s on 12/04/19 but no recurrence. In SR On HD Objective Last 24 Hour Vital Signs Date Time Temp Pulse Resp B/P (MAP) Pulse Ox O2 Delivery O2 Flow Rate FiO2 12/16/19 13:23 25 Endotracheal Tube 15.0 100 12/16/19 13:00 106 25 125/63 (83) 100 12/16/19 13:00 25 Endotracheal Tube 100 12/16/19 13:00 125/63 12/16/19 12:30 102 23 127/63 (84) 100 12/16/19 12:00 Mechanical Ventilator 12/16/19 12:00 100 12/16/19 12:00 99.8 106 24 120/59 (79) 100 12/16/19 12:00 125/57 12/16/19 11:30 111 26 128/52 (77) 100 12/16/19 11:00 25 Endotracheal Tube 100 12/16/19 11:00 126/63 12/16/19 11:00 107 25 126/63 (84) 100 12/16/19 10:31 106 28 100 12/16/19 10:30 106 26 134/65 (88) 100 12/16/19 10:00 105 26 146/59 (88) 100 12/16/19 10:00 26 Endotracheal Tube 100 12/16/19 10:00 136/58 12/16/19 09:30 107 27 140/68 (92) 100 12/16/19 09:00 115 27 119/54 (75) 100 12/16/19 09:00 27 Endotracheal Tube 100 12/16/19 08:30 115 27 113/55 (74) 100 12/16/19 08:00 100 12/16/19 08:00 99.3 116 25 112/51 (71) 98 12/16/19 08:00 25 Endotracheal Tube 100 12/16/19 08:00 117/53 12/16/19 08:00 Mechanical Ventilator 12/16/19 07:30 113 24 114/50 (71) 98 12/16/19 07:15 111 12/16/19 07:04 113 28 100 12/16/19 07:00 20 Mechanical Ventilator 100 12/16/19 07:00 125/57 12/16/19 07:00 108 25 125/57 (79) 99 12/16/19 06:30 87 19 114/62 (79) 100 12/16/19 06:13 18 Mechanical Ventilator 100 12/16/19 06:00 77 16 119/62 (81) 100 12/16/19 06:00 18 Mechanical Ventilator 100 12/16/19 06:00 119/62 12/16/19 05:30 72 21 100 12/16/19 05:30 72 18 126/60 (82) 100 12/16/19 05:00 73 22 135/70 (91) 100 12/16/19 05:00 22 Mechanical Ventilator 100 12/16/19 05:00 135/70 12/16/19 04:30 84 16 140/79 (99) 100 12/16/19 04:00 Mechanical Ventilator 12/16/19 04:00 97.5 86 18 158/80 (106) 100 12/16/19 04:00 18 Mechanical Ventilator 100 12/16/19 04:00 158/80 12/16/19 04:00 100 12/16/19 04:00 73 12/16/19 03:46 73 26 100 12/16/19 03:30 75 17 156/67 (96) 100 12/16/19 03:00 78 22 158/73 (101) 100 12/16/19 03:00 21 Mechanical Ventilator 100 12/16/19 03:00 158/73 12/16/19 02:30 140/70 12/16/19 02:30 68 21 149/70 (96) 100 12/16/19 02:00 72 21 137/62 (87) 100 12/16/19 02:00 21 Mechanical Ventilator 100 12/16/19 02:00 137/62 12/16/19 01:30 92 24 100 12/16/19 01:30 82 18 135/64 (87) 100 12/16/19 01:30 135/64 12/16/19 01:00 19 Mechanical Ventilator 100 12/16/19 01:00 128/63 12/16/19 01:00 88 19 128/63 (84) 100 12/16/19 00:58 100.3 12/16/19 00:30 91 18 121/60 (80) 100 12/16/19 00:00 100 12/16/19 00:00 Mechanical Ventilator 12/16/19 00:00 18 Mechanical Ventilator 100 12/16/19 00:00 120/59 12/16/19 00:00 95 12/16/19 00:00 100.5 91 18 120/59 (79) 100 12/15/19 23:30 84 18 120/55 (76) 100 12/15/19 23:30 16 Mechanical Ventilator 100 12/15/19 23:23 91 23 100 12/15/19 23:00 16 Mechanical Ventilator 100 12/15/19 23:00 114/61 12/15/19 23:00 92 18 114/61 (78) 100 12/15/19 22:30 91 19 120/60 (80) 100 12/15/19 22:20 19 Mechanical Ventilator 100 12/15/19 22:20 120/61 12/15/19 22:00 90 19 120/61 (80) 100 12/15/19 22:00 17 Mechanical Ventilator 100 12/15/19 22:00 113/58 12/15/19 21:30 91 17 116/60 (78) 100 12/15/19 21:30 90 22 100 12/15/19 21:00 93 17 113/58 (76) 100 12/15/19 20:30 92 20 120/56 (77) 100 12/15/19 20:00 95 12/15/19 20:00 Mechanical Ventilator 12/15/19 20:00 100.3 94 18 104/56 (72) 100 12/15/19 20:00 18 Mechanical Ventilator 100 12/15/19 20:00 104/56 12/15/19 20:00 100 12/15/19 19:30 91 24 100 12/15/19 19:30 94 17 100/57 (71) 100 12/15/19 19:00 96 16 106/50 (68) 100 12/15/19 19:00 26 Mechanical Ventilator 100 12/15/19 19:00 116/62 12/15/19 18:30 98 16 110/59 (76) 100 12/15/19 18:00 102 18 107/55 (72) 100 12/15/19 18:00 26 Mechanical Ventilator 100 12/15/19 18:00 120/65 12/15/19 17:30 107 17 105/54 (71) 100 12/15/19 17:15 108 20 116/58 (77) 100 12/15/19 17:00 105 18 117/59 (78) 100 12/15/19 17:00 26 Mechanical Ventilator 100 12/15/19 17:00 102/66 12/15/19 16:52 108 24 100 12/15/19 16:45 109 14 114/70 (85) 100 12/15/19 16:39 116/67 12/15/19 16:30 104 15 116/67 (83) 100 12/15/19 16:00 Mechanical Ventilator 12/15/19 16:00 100 12/15/19 16:00 99.6 104 16 108/63 (78) 100 12/15/19 16:00 24 Mechanical Ventilator 100 12/15/19 16:00 108/63 12/15/19 16:00 106 12/15/19 15:45 102 18 109/65 (80) 100 12/15/19 15:30 100 16 114/63 (80) 100 12/15/19 15:15 99 17 107/66 (80) 100 12/15/19 15:15 99 24 100 12/15/19 15:00 101 17 96/57 (70) 100 12/15/19 15:00 26 Mechanical Ventilator 100 12/15/19 15:00 107/66 12/15/19 14:45 99 15 103/64 (77) 100 12/15/19 14:30 98 16 114/63 (80) 100 12/15/19 14:15 96 17 113/68 (83) 100 12/15/19 14:00 95 19 111/54 (73) 100 12/15/19 14:00 26 Mechanical Ventilator 100 12/15/19 14:00 113/68 Intake and Output 12/15/19 12/16/19 19:00 07:00 Intake Total 1007.69 ml 1085.33 ml Output Total 2230 ml 110 ml Balance -1222.31 ml 975.33 ml Free Water 30 ml IV Total 557.69 ml 665.33 ml Tube Feeding 420 ml 420 ml Output Urine Total 30 ml 10 ml Stool Total 200 ml 100 ml Hemodialysis UF 2000 ml Laboratory Tests Test 12/16/19 06:10 12/16/19 11:36 White Blood Count 33.5 K/UL (4.8-10.8) *H Red Blood Count 3.35 M/UL (4.70-6.10) L Hemoglobin 9.9 G/DL (14.2-18.0) L Hematocrit 31.2 % (42.0-52.0) L Mean Corpuscular Volume 93 FL (80-99) Mean Corpuscular Hemoglobin 29.7 PG (27.0-31.0) Mean Corpuscular Hemoglobin Concent 31.9 G/DL (32.0-36.0) L Red Cell Distribution Width 13.7 % (11.6-14.8) Platelet Count 169 K/UL (150-450) Mean Platelet Volume 8.4 FL (6.5-10.1) Neutrophils (%) (Auto) % (45.0-75.0) Lymphocytes (%) (Auto) % (20.0-45.0) Monocytes (%) (Auto) % (1.0-10.0) Eosinophils (%) (Auto) % (0.0-3.0) Basophils (%) (Auto) % (0.0-2.0) Differential Total Cells Counted 100 Neutrophils % (Manual) 79 % (45-75) H Lymphocytes % (Manual) 4 % (20-45) L Monocytes % (Manual) 8 % (1-10) Eosinophils % (Manual) 0 % (0-3) Basophils % (Manual) 0 % (0-2) Metamyelocytes % 2 % (0-0) H Band Neutrophils 7 % (0-8) Platelet Estimate Adequate Platelet Morphology Normal Hypochromasia 2+ Anisocytosis 1+ Sodium Level 138 MMOL/L (136-145) Potassium Level 3.8 MMOL/L (3.5-5.1) Chloride Level 100 MMOL/L (98-107) Carbon Dioxide Level 33 MMOL/L (21-32) H Anion Gap 5 mmol/L (5-15) Blood Urea Nitrogen 52 mg/dL (7-18) H Creatinine 4.0 MG/DL (0.55-1.30) H Estimat Glomerular Filtration Rate 15.5 mL/min (>60) Glucose Level 154 MG/DL (74-106) H Calcium Level 9.3 MG/DL (8.5-10.1) Iron Level 23 ug/dL (50-175) L Total Iron Binding Capacity 180 ug/dL (250-450) L Percent Iron Saturation 13 % (15-50) L Unsaturated Iron Binding 157 ug/dL (112-346) Ferritin 783 NG/ML (8-388) H Total Bilirubin 0.8 MG/DL (0.2-1.0) Aspartate Amino Transf (AST/SGOT) 46 U/L (15-37) H Alanine Aminotransferase (ALT/SGPT) 61 U/L (12-78) Alkaline Phosphatase 253 U/L (46-116) H Total Protein 6.0 G/DL (6.4-8.2) L Albumin 2.7 G/DL (3.4-5.0) L Globulin 3.3 g/dL Albumin/Globulin Ratio 0.8 (1.0-2.7) L Carcinoembryonic Antigen Pending Vitamin B12 Level 1619 PG/ML (193-986) H Folate 6.8 NG/ML (8.6-58.9) L Thyroid Stimulating Hormone (TSH) 2.541 uiU/mL (0.358-3.740) Arterial Blood pH 7.226 (7.350-7.450) Arterial Blood Partial Pressure CO2 80.7 mmHg (35.0-45.0) *H Arterial Blood Partial Pressure O2 114.6 mmHg (75.0-100.0) H Arterial Blood HCO3 32.7 mmol/L (22.0-26.0) H Arterial Blood Oxygen Saturation 97.4 % (95-100) Arterial Blood Base Excess 3.3 (-2-2) H Melecio Test Positive Objective HEAD AND NECK: Orally intubated No JVD LUNGS: Decreased breath sounds. Coarse rhonchi. CARDIOVASCULAR: Tachycardic S1 and S2 with no gallop. ABDOMEN: Soft. EXTREMITIES: 1 plus pitting edema. RFV [place] in place Toluie,Raul MD December 16, 2019 13:56
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
--- NOTE | 2019-12-16 16:30 | NUR ---
NURSE NOTES: Patient's rectal temperature read 100.5 degrees Fahrenheit, prescribe Tylenol was given to patient, placed ice packs on patient. Will continue to monitor.
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
--- NOTE | 2019-12-16 17:41 | Urology Progress Note ---
Assessment/Plan Status: unchanged Assessment/Plan: 1. Phimosis. 2. Retention. 3. Hematuria. 4. Pyuria. 5. Proteinuria. 6. Acute kidney injury. 7. Meatal stenosis. monitor clinically maintain barnes, placed 12/04 hand irrigate PRN monitor urine output and renal fxn consider renal imaging abx as ordered HD per nephrology f/u on last blood cx Subjective Allergies: Coded Allergies: No Known Allergies (Unverified , 11/29/19) Subjective remains on vent, still with minimal urine output, HD Objective Last 24 Hour Vital Signs Date Time Temp Pulse Resp B/P (MAP) Pulse Ox O2 Delivery O2 Flow Rate FiO2 12/16/19 17:00 116 28 102/60 (74) 100 12/16/19 17:00 Endotracheal Tube 100 12/16/19 17:00 100.4 12/16/19 16:45 117 27 99/61 (74) 100 12/16/19 16:30 26 Endotracheal Tube 100 12/16/19 16:30 111 26 114/63 (80) 100 12/16/19 16:15 110 27 115/63 (80) 100 12/16/19 16:00 Mechanical Ventilator 12/16/19 16:00 27 Endotracheal Tube 100 12/16/19 16:00 27 Endotracheal Tube 100 12/16/19 16:00 117/63 12/16/19 16:00 100.5 114 27 117/63 (81) 100 12/16/19 15:45 113 27 117/59 (78) 100 12/16/19 15:30 112 26 112/62 (79) 100 12/16/19 15:30 26 Endotracheal Tube 100 12/16/19 15:23 109 12/16/19 15:02 113 25 100 12/16/19 15:00 110 25 106/62 (77) 100 12/16/19 15:00 25 Endotracheal Tube 100 12/16/19 15:00 25 Endotracheal Tube 100 12/16/19 15:00 106/62 12/16/19 14:30 106 25 111/60 (77) 100 12/16/19 14:15 105 24 118/62 (80) 100 12/16/19 14:00 25 Endotracheal Tube 100 12/16/19 14:00 25 Endotracheal Tube 100 12/16/19 14:00 112/66 12/16/19 14:00 106 25 112/66 (81) 100 12/16/19 14:00 100 12/16/19 13:45 107 26 105/58 (74) 99 12/16/19 13:30 100 24 99/63 (75) 100 12/16/19 13:23 25 Endotracheal Tube 15.0 100 12/16/19 13:00 106 25 125/63 (83) 100 12/16/19 13:00 25 Endotracheal Tube 100 12/16/19 13:00 125/63 12/16/19 12:30 102 23 127/63 (84) 100 12/16/19 12:00 Mechanical Ventilator 12/16/19 12:00 100 12/16/19 12:00 99.8 106 24 120/59 (79) 100 12/16/19 12:00 125/57 12/16/19 11:33 104 12/16/19 11:30 111 26 128/52 (77) 100 12/16/19 11:00 25 Endotracheal Tube 100 12/16/19 11:00 126/63 12/16/19 11:00 107 25 126/63 (84) 100 12/16/19 10:31 106 28 100 12/16/19 10:30 106 26 134/65 (88) 100 12/16/19 10:00 105 26 146/59 (88) 100 12/16/19 10:00 26 Endotracheal Tube 100 12/16/19 10:00 136/58 12/16/19 09:30 107 27 140/68 (92) 100 12/16/19 09:00 115 27 119/54 (75) 100 12/16/19 09:00 27 Endotracheal Tube 100 12/16/19 08:30 115 27 113/55 (74) 100 12/16/19 08:00 100 12/16/19 08:00 99.3 116 25 112/51 (71) 98 12/16/19 08:00 25 Endotracheal Tube 100 12/16/19 08:00 117/53 12/16/19 08:00 Mechanical Ventilator 12/16/19 07:30 113 24 114/50 (71) 98 12/16/19 07:15 111 12/16/19 07:04 113 28 100 12/16/19 07:00 20 Mechanical Ventilator 100 12/16/19 07:00 125/57 12/16/19 07:00 108 25 125/57 (79) 99 12/16/19 06:30 87 19 114/62 (79) 100 12/16/19 06:13 18 Mechanical Ventilator 100 12/16/19 06:00 77 16 119/62 (81) 100 12/16/19 06:00 18 Mechanical Ventilator 100 12/16/19 06:00 119/62 12/16/19 05:30 72 21 100 12/16/19 05:30 72 18 126/60 (82) 100 12/16/19 05:00 73 22 135/70 (91) 100 12/16/19 05:00 22 Mechanical Ventilator 100 12/16/19 05:00 135/70 12/16/19 04:30 84 16 140/79 (99) 100 12/16/19 04:00 Mechanical Ventilator 12/16/19 04:00 97.5 86 18 158/80 (106) 100 12/16/19 04:00 18 Mechanical Ventilator 100 12/16/19 04:00 158/80 12/16/19 04:00 100 12/16/19 04:00 73 12/16/19 03:46 73 26 100 12/16/19 03:30 75 17 156/67 (96) 100 12/16/19 03:00 78 22 158/73 (101) 100 12/16/19 03:00 21 Mechanical Ventilator 100 12/16/19 03:00 158/73 12/16/19 02:30 140/70 12/16/19 02:30 68 21 149/70 (96) 100 12/16/19 02:00 72 21 137/62 (87) 100 12/16/19 02:00 21 Mechanical Ventilator 100 12/16/19 02:00 137/62 12/16/19 01:30 92 24 100 12/16/19 01:30 82 18 135/64 (87) 100 12/16/19 01:30 135/64 12/16/19 01:00 19 Mechanical Ventilator 100 12/16/19 01:00 128/63 12/16/19 01:00 88 19 128/63 (84) 100 12/16/19 00:30 91 18 121/60 (80) 100 12/16/19 00:00 100 12/16/19 00:00 Mechanical Ventilator 12/16/19 00:00 18 Mechanical Ventilator 100 12/16/19 00:00 120/59 20 00:00 95 20 00:00 100.5 91 18 120/59 (79) 100 12/15/19 23:30 84 18 120/55 (76) 100 12/15/19 23:30 16 Mechanical Ventilator 100 12/15/19 23:23 91 23 100 12/15/19 23:00 16 Mechanical Ventilator 100 12/15/19 23:00 114/61 12/15/19 23:00 92 18 114/61 (78) 100 12/15/19 22:30 91 19 120/60 (80) 100 12/15/19 22:20 19 Mechanical Ventilator 100 12/15/19 22:20 120/61 12/15/19 22:00 90 19 120/61 (80) 100 12/15/19 22:00 17 Mechanical Ventilator 100 12/15/19 22:00 113/58 12/15/19 21:30 91 17 116/60 (78) 100 12/15/19 21:30 90 22 100 12/15/19 21:00 93 17 113/58 (76) 100 12/15/19 20:30 92 20 120/56 (77) 100 12/15/19 20:00 95 12/15/19 20:00 Mechanical Ventilator 12/15/19 20:00 100.3 94 18 104/56 (72) 100 12/15/19 20:00 18 Mechanical Ventilator 100 12/15/19 20:00 104/56 12/15/19 20:00 100 12/15/19 19:30 91 24 100 12/15/19 19:30 94 17 100/57 (71) 100 12/15/19 19:00 96 16 106/50 (68) 100 12/15/19 19:00 26 Mechanical Ventilator 100 12/15/19 19:00 116/62 12/15/19 18:30 98 16 110/59 (76) 100 20 18:00 102 18 107/55 (72) 100 12/15/19 18:00 26 Mechanical Ventilator 100 12/15/19 18:00 120/65 Intake and Output 12/15/19 12/16/19 19:00 07:00 Intake Total 1007.69 ml 1085.33 ml Output Total 2230 ml 110 ml Balance -1222.31 ml 975.33 ml Free Water 30 ml IV Total 557.69 ml 665.33 ml Tube Feeding 420 ml 420 ml Output Urine Total 30 ml 10 ml Stool Total 200 ml 100 ml Hemodialysis UF 2000 ml Microbiology Date/Time Source Procedure Growth Status 12/10/19 21:15 Blood Blood Culture - Final NO GROWTH AFTER 5 DAYS Complete 12/11/19 22:50 Sputum Gram Stain - Final Complete 12/11/19 22:50 Sputum Sputum Culture - Final NORMAL UPPER RESPIRATORY ALISIA AT 48 ... Complete 12/11/19 22:50 Stool Clostridium difficile Toxin Assay - Final Complete 12/11/19 20:33 Indwelling Cath Urine Culture - Final NO GROWTH AFTER 48 HOURS Complete Current Medications Medications (Trade) Dose Ordered Sig/Vicki Route PRN Reason Start Time Stop Time Status Last Admin Dose Admin Acetaminophen (Tylenol) 650 mg Q4H PRN NG Temp >100.5 12/06/19 14:15 01/05/20 14:14 12/16/19 16:30 Acetaminophen (Tylenol) 650 mg Q4H PRN RECTAL Mild Pain (Pain Scale 1-3) 12/04/19 11:45 01/03/20 11:44 12/06/19 19:17 Cefepime HCl 500 mg/Dextrose 50 ml @ 100 mls/hr Q24HRS IV 12/10/19 23:00 12/17/19 22:59 12/15/19 23:33 Chlorhexidine Gluconate (Arely-Hex 2%) 1 applic DAILY@2000 TOPIC 12/05/19 20:00 03/04/20 19:59 12/15/19 20:35 Dextrose (Dextrose 50%) 25 ml Q30M PRN IV Hypoglycemia 11/29/19 14:15 02/27/20 14:14 Dextrose (Dextrose 50%) 50 ml Q30M PRN IV Hypoglycemia 11/29/19 14:15 02/27/20 14:14 Fentanyl Citrate 2500 mcg/Sodium Chloride 250 ml @ 0 mls/hr Q24H IV 12/13/19 00:00 12/20/19 00:00 12/16/19 06:13 Hydralazine HCl (Apresoline) 10 mg Q4H PRN IV For High Blood Pressure 11/29/19 15:15 02/27/20 15:14 Loperamide HCl (Imodium) 2 mg Q6H PRN NG Diarrhea 12/12/19 12:45 01/11/20 12:44 Metronidazole 100 ml @ 100 mls/hr Q8HR IVPB 12/10/19 23:00 12/17/19 22:59 12/16/19 13:22 Midazolam HCl 100 ml @ 0 mls/hr Q24H PRN IV Restlessness 12/16/19 10:45 03/15/20 10:44 12/16/19 13:23 Midodrine (Pro-Amatine) 10 mg THREE TIMES A DAY ORAL 12/12/19 13:00 03/11/20 12:59 12/16/19 08:59 Norepinephrine Bitartrate 16 mg/ Dextrose 566 ml @ 0 mls/hr Q24H IV 12/06/19 09:00 01/05/20 08:59 12/15/19 16:39 Ondansetron HCl (Zofran) 4 mg Q6H PRN IVP Nausea & Vomiting 11/29/19 14:15 12/29/19 14:14 Pantoprazole (Protonix) 40 mg DAILY IVP 11/30/19 12:15 12/30/19 12:14 12/16/19 09:00 Potassium Chloride (K-Dur) 40 meq TWICE A DAY ORAL 12/11/19 09:30 03/10/20 09:29 12/16/19 08:59 Vancomycin HCl (Vanco rx to dose) 1 ea DAILY PRN MISC Per rx protocol 12/08/19 19:30 01/07/20 19:29 Vasopressin 100 units/Sodium Chloride 100 ml @ 0 mls/hr Q24H IV 12/06/19 09:00 01/05/20 08:59 12/06/19 09:03 Vitamin B Complex/ Vit C/Folic Acid (Nephrovite) 1 tab DAILY NG 12/16/19 09:00 01/15/20 08:59 12/16/19 08:59 Laboratory Tests 12/16/19 06:10: White Blood Count 33.5*H, Red Blood Count 3.35L, Hemoglobin 9.9L, Hematocrit 31.2L, Mean Corpuscular Volume 93, Mean Corpuscular Hemoglobin 29.7, Mean Corpuscular Hemoglobin Concent 31.9L, Red Cell Distribution Width 13.7, Platelet Count 169, Mean Platelet Volume 8.4, Neutrophils (%) (Auto) , Lymphocytes (%) (Auto) , Monocytes (%) (Auto) , Eosinophils (%) (Auto) , Basophils (%) (Auto) , Differential Total Cells Counted 100, Neutrophils % ( Manual) 79H, Lymphocytes % (Manual) 4L, Monocytes % (Manual) 8, Eosinophils % ( Manual) 0, Basophils % (Manual) 0, Metamyelocytes % 2H, Band Neutrophils 7, Platelet Estimate Adequate, Platelet Morphology Normal, Hypochromasia 2+, Anisocytosis 1+, Sodium Level 138, Potassium Level 3.8, Chloride Level 100, Carbon Dioxide Level 33H, Anion Gap 5, Blood Urea Nitrogen 52H, Creatinine 4.0H , Estimat Glomerular Filtration Rate 15.5, Glucose Level 154H, Calcium Level 9.3 , Iron Level 23L, Total Iron Binding Capacity 180L, Percent Iron Saturation 13L , Unsaturated Iron Binding 157, Ferritin 783H, Total Bilirubin 0.8, Aspartate Amino Transf (AST/SGOT) 46H, Alanine Aminotransferase (ALT/SGPT) 61, Alkaline Phosphatase 253H, Total Protein 6.0L, Albumin 2.7L, Globulin 3.3, Albumin/ Globulin Ratio 0.8L, Carcinoembryonic Antigen [Pending], Vitamin B12 Level 1619H , Folate 6.8L, Thyroid Stimulating Hormone (TSH) 2.541 12/16/19 11:36: Arterial Blood pH 7.226*L, Arterial Blood Partial Pressure CO2 80.7*H, Arterial Blood Partial Pressure O2 114.6H, Arterial Blood HCO3 32.7H, Arterial Blood Oxygen Saturation 97.4, Arterial Blood Base Excess 3.3H, Melecio Test Positive Height (Feet): 5 Height (Inches): 6.00 Weight (Pounds): 160 Objective stable no bleeding at prepuce barnes indwelling, marge urine Kai Berger MD December 16, 2019 17:41
--- NOTE | 2019-12-16 18:20 | NUR ---
NURSE NOTES: Bed bath given to patient, turned and repositioned. Patient remains febrile, 300ml of ice water given via NGT, cooling blanket remains underneath patient.
--- NOTE | 2019-12-16 19:30 | NUR ---
NURSE NOTES: Received report from DARYA Luciano. Pt is sleeping on the bed and obtunded. Vital signs stable. Patient remains orally intubated ETT#8.0 at 24cm lip line. Vent dependent setting with setting AC 20, T : 500, P: 5, FiO2 100% and SaO2 100% noted. Given suction and oral care. Iv site intact and no sign of infiltration and dressing is clean and dry on [place] cath area. On running with Fentanyl at 150mcg/hr and versed @ 5mg/hr and Levophed drip @ 5mcg/min and BP is stable. Noted BT: 100.3F. Keep cooling blanket. On NG tube and running Nepro at 35mL/hr. No residual noted. Joe and rectal tube patent. Pt s/p hemodialysis today. Dressing is clean and dry on wound area. still noted open wound on nose, lower lip and chin area. according to previous nurse he verified with Gregory Cortes and not needed pron position today. Placed fall precaution. Proper airborne precaution. Will continue to care plan.
[2019-12-16] MEDS: Dyna-Hex 2% Top Sol 2oz TOPIC SCH (20:57)
--- NOTE | 2019-12-16 20:59 | Infectious Diseases Prog Note ---
Assessment/Plan Assessment/Plan ASSESSMENT AND PLAN: 1. covid-19 virus infection with pna, rule out bacterial pna, sepsis/shock, fevers, leukocytosis vent, respiratory failure, ? 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 - negative - change antibiotics to meropenem, vancomycin and diflucan - s/p hydroxychloroquine - monitor chest x-ray and labs - f/u cultures ordered - s/p tocilizumab - critical - getting HD - poor prognosis - d/w Dr. Aguayo 2. Hypertension. 3. No known allergies. 4. Social history negative. 5. Family history noncontributory. 6. MAR was noted. 7. Case discussed with RN. 8. Continue treatment per primary consultants. Subjective Constitutional: Reports: fever, other - on vent and pressors HEENT: Reports: congestion Respiratory: Reports: shortness of breath Cardiovascular: Reports: other - + pressors Gastrointestinal/Abdominal: Denies: nausea, vomiting, diarrhea Genitourinary: Reports: other - + barnes Neurologic: Reports: other - NA Skin: Denies: rash Hematologic: Denies: bleeding Musculoskeletal: Reports: other - NA Allergies: Coded Allergies: No Known Allergies (Unverified , 11/29/19) Objective Vital Signs Last 24 Hour Vital Signs Date Time Temp Pulse Resp B/P (MAP) Pulse Ox O2 Delivery O2 Flow Rate FiO2 12/16/19 19:38 91 32 100 12/16/19 19:00 30 Endotracheal Tube 100 12/16/19 19:00 30 Endotracheal Tube 100 12/16/19 19:00 122/58 12/16/19 19:00 116 30 122/58 (79) 98 12/16/19 18:30 117 28 115/61 (79) 99 12/16/19 18:15 110 28 118/55 (76) 100 12/16/19 18:00 26 Endotracheal Tube 100 12/16/19 18:00 26 Endotracheal Tube 100 12/16/19 18:00 118/55 12/16/19 18:00 114 26 106/60 (75) 99 12/16/19 17:30 100.4 115 28 97/51 (66) 100 12/16/19 17:00 116 28 102/60 (74) 100 12/16/19 17:00 Endotracheal Tube 100 12/16/19 17:00 28 Endotracheal Tube 100 12/16/19 17:00 100.4 12/16/19 17:00 102/60 12/16/19 16:45 117 27 99/61 (74) 100 12/16/19 16:30 26 Endotracheal Tube 100 12/16/19 16:30 111 26 114/63 (80) 100 12/16/19 16:15 110 27 115/63 (80) 100 12/16/19 16:00 Mechanical Ventilator 12/16/19 16:00 27 Endotracheal Tube 100 12/16/19 16:00 27 Endotracheal Tube 100 12/16/19 16:00 117/63 12/16/19 16:00 100.5 114 27 117/63 (81) 100 12/16/19 15:45 113 27 117/59 (78) 100 12/16/19 15:30 112 26 112/62 (79) 100 12/16/19 15:30 26 Endotracheal Tube 100 12/16/19 15:23 109 12/16/19 15:02 113 25 100 12/16/19 15:00 110 25 106/62 (77) 100 12/16/19 15:00 25 Endotracheal Tube 100 12/16/19 15:00 25 Endotracheal Tube 100 12/16/19 15:00 106/62 12/16/19 14:30 106 25 111/60 (77) 100 12/16/19 14:15 105 24 118/62 (80) 100 12/16/19 14:00 25 Endotracheal Tube 100 12/16/19 14:00 25 Endotracheal Tube 100 12/16/19 14:00 112/66 12/16/19 14:00 106 25 112/66 (81) 100 20 14:00 100 12/16/19 13:45 107 26 105/58 (74) 99 12/16/19 13:30 100 24 99/63 (75) 100 12/16/19 13:23 25 Endotracheal Tube 15.0 100 12/16/19 13:00 106 25 125/63 (83) 100 20 13:00 25 Endotracheal Tube 100 12/16/19 13:00 125/63 12/16/19 12:30 102 23 127/63 (84) 100 12/16/19 12:00 Mechanical Ventilator 12/16/19 12:00 100 12/16/19 12:00 99.8 106 24 120/59 (79) 100 12/16/19 12:00 125/57 12/16/19 11:33 104 12/16/19 11:30 111 26 128/52 (77) 100 12/16/19 11:00 25 Endotracheal Tube 100 12/16/19 11:00 126/63 12/16/19 11:00 107 25 126/63 (84) 100 12/16/19 10:31 106 28 100 12/16/19 10:30 106 26 134/65 (88) 100 12/16/19 10:00 105 26 146/59 (88) 100 12/16/19 10:00 26 Endotracheal Tube 100 12/16/19 10:00 136/58 12/16/19 09:30 107 27 140/68 (92) 100 12/16/19 09:00 115 27 119/54 (75) 100 12/16/19 09:00 27 Endotracheal Tube 100 12/16/19 08:30 115 27 113/55 (74) 100 12/16/19 08:00 100 12/16/19 08:00 99.3 116 25 112/51 (71) 98 12/16/19 08:00 25 Endotracheal Tube 100 12/16/19 08:00 117/53 12/16/19 08:00 Mechanical Ventilator 12/16/19 07:30 113 24 114/50 (71) 98 12/16/19 07:15 111 12/16/19 07:04 113 28 100 12/16/19 07:00 20 Mechanical Ventilator 100 12/16/19 07:00 125/57 12/16/19 07:00 108 25 125/57 (79) 99 12/16/19 06:30 87 19 114/62 (79) 100 12/16/19 06:13 18 Mechanical Ventilator 100 12/16/19 06:00 77 16 119/62 (81) 100 12/16/19 06:00 18 Mechanical Ventilator 100 12/16/19 06:00 119/62 12/16/19 05:30 72 21 100 12/16/19 05:30 72 18 126/60 (82) 100 12/16/19 05:00 73 22 135/70 (91) 100 12/16/19 05:00 22 Mechanical Ventilator 100 12/16/19 05:00 135/70 12/16/19 04:30 84 16 140/79 (99) 100 12/16/19 04:00 Mechanical Ventilator 12/16/19 04:00 97.5 86 18 158/80 (106) 100 12/16/19 04:00 18 Mechanical Ventilator 100 12/16/19 04:00 158/80 12/16/19 04:00 100 12/16/19 04:00 73 12/16/19 03:46 73 26 100 12/16/19 03:30 75 17 156/67 (96) 100 12/16/19 03:00 78 22 158/73 (101) 100 12/16/19 03:00 21 Mechanical Ventilator 100 12/16/19 03:00 158/73 12/16/19 02:30 140/70 12/16/19 02:30 68 21 149/70 (96) 100 12/16/19 02:00 72 21 137/62 (87) 100 12/16/19 02:00 21 Mechanical Ventilator 100 12/16/19 02:00 137/62 12/16/19 01:30 92 24 100 12/16/19 01:30 82 18 135/64 (87) 100 12/16/19 01:30 135/64 12/16/19 01:00 19 Mechanical Ventilator 100 12/16/19 01:00 128/63 12/16/19 01:00 88 19 128/63 (84) 100 12/16/19 00:30 91 18 121/60 (80) 100 12/16/19 00:00 100 12/16/19 00:00 Mechanical Ventilator 12/16/19 00:00 18 Mechanical Ventilator 100 12/16/19 00:00 120/59 12/16/19 00:00 95 12/16/19 00:00 100.5 91 18 120/59 (79) 100 12/15/19 23:30 84 18 120/55 (76) 100 12/15/19 23:30 16 Mechanical Ventilator 100 12/15/19 23:23 91 23 100 12/15/19 23:00 16 Mechanical Ventilator 100 12/15/19 23:00 114/61 12/15/19 23:00 92 18 114/61 (78) 100 12/15/19 22:30 91 19 120/60 (80) 100 12/15/19 22:20 19 Mechanical Ventilator 100 12/15/19 22:20 120/61 12/15/19 22:00 90 19 120/61 (80) 100 12/15/19 22:00 17 Mechanical Ventilator 100 12/15/19 22:00 113/58 12/15/19 21:30 91 17 116/60 (78) 100 12/15/19 21:30 90 22 100 12/15/19 21:00 93 17 113/58 (76) 100 Height (Feet): 5 Height (Inches): 6.00 Weight (Pounds): 160 General Appearance: no acute distress HEENT: normocephalic, atraumatic, other - oral - intubated Respiratory/Chest: crackles/rales, rhonchi - bilaterally Cardiovascular: normal rate, regular rhythm, no gallop/murmur, no JVD Abdomen: normal bowel sounds, soft, non tender, no organomegaly, non distended Genitourinary: other - + barnes Extremities: no cyanosis Skin: no rash Neurologic/Psychiatric: other - lethargic, weak Lymphatic: no neck adenopathy Musculoskeletal: no effusion Objective Chest x-ray - 12/02/19 - Procedure: XRAY Chest 1v EXAM: XR Chest, 1 View CLINICAL HISTORY: ABN CHST TECHNIQUE: Frontal view of the chest. COMPARISON: Chest x-ray dated 11/29/19 FINDINGS: Lungs: Persistent diffuse peripheral groundglass opacities, not significantly changed, concerning for pneumonia. Pleural space: Unremarkable. The costophrenic angles are sharp. No visible pneumothorax. Heart: Unremarkable. No cardiomegaly. Mediastinum: Unremarkable. Bones/joints: Mild degenerative changes throughout the visualized spine. Tubes, lines and devices: Telemetry leads overlie the thorax. IMPRESSION: No significant change compared to the prior chest x-ray. Persistent diffuse peripheral groundglass opacities, concerning for pneumonia. Chest x-ray - 12/07/19 - COMPARISON: Chest x-ray 12/06/19 1317 FINDINGS: Lungs: Diffuse bilateral airspace opacities, improved in the left lung and slightly worsened in the right lung. Pleural space: Unremarkable. No pneumothorax. Heart: Mild cardiomegaly. Mediastinum: Unremarkable. Bones/joints: Mild degenerative changes of spine. Tubes, lines and devices: Endotracheal tube and NG tube are stable. IMPRESSION: Diffuse bilateral airspace opacities, improved in the left lung and slightly worsened in the right lung. Chest x-ray - 12/10/19 - Procedure: XRAY Chest 1v Indication: Shortness of breath Technique: One view of the chest Comparison: 12/07/2019 Findings: There is worsening airspace opacity in the bilateral mid and lower lungs. The left hemidiaphragm is obscured, could indicate some pleural fluid. Stable satisfactory positions of endotracheal and nasogastric tubes. Impression: Worsening infiltrates, likely pneumonia, bilaterally Chest x-ray - 12/16/19 - Procedure: XRAY Chest 1v Indication: Shortness of breath Technique: One view of the chest Comparison: 12/15/2019 Findings: Diffuse and extensive bilateral hazy infiltrates are unchanged. Stable position of endotracheal and nasogastric tubes. Normal heart size. Findings are unchanged Impression: Unchanged, over one day, findings as above. Microbiology Date/Time Source Procedure Growth Status 12/10/19 21:15 Blood Blood Culture - Final NO GROWTH AFTER 5 DAYS Complete 12/11/19 22:50 Sputum Gram Stain - Final Complete 12/11/19 22:50 Sputum Sputum Culture - Final NORMAL UPPER RESPIRATORY ALISIA AT 48 ... Complete 12/11/19 22:50 Stool Clostridium difficile Toxin Assay - Final Complete 12/11/19 20:33 Indwelling Cath Urine Culture - Final NO GROWTH AFTER 48 HOURS Complete Laboratory Tests Test 12/16/19 06:10 12/16/19 11:36 White Blood Count 33.5 K/UL (4.8-10.8) *H Red Blood Count 3.35 M/UL (4.70-6.10) L Hemoglobin 9.9 G/DL (14.2-18.0) L Hematocrit 31.2 % (42.0-52.0) L Mean Corpuscular Volume 93 FL (80-99) Mean Corpuscular Hemoglobin 29.7 PG (27.0-31.0) Mean Corpuscular Hemoglobin Concent 31.9 G/DL (32.0-36.0) L Red Cell Distribution Width 13.7 % (11.6-14.8) Platelet Count 169 K/UL (150-450) Mean Platelet Volume 8.4 FL (6.5-10.1) Neutrophils (%) (Auto) % (45.0-75.0) Lymphocytes (%) (Auto) % (20.0-45.0) Monocytes (%) (Auto) % (1.0-10.0) Eosinophils (%) (Auto) % (0.0-3.0) Basophils (%) (Auto) % (0.0-2.0) Differential Total Cells Counted 100 Neutrophils % (Manual) 79 % (45-75) H Lymphocytes % (Manual) 4 % (20-45) L Monocytes % (Manual) 8 % (1-10) Eosinophils % (Manual) 0 % (0-3) Basophils % (Manual) 0 % (0-2) Metamyelocytes % 2 % (0-0) H Band Neutrophils 7 % (0-8) Platelet Estimate Adequate Platelet Morphology Normal Hypochromasia 2+ Anisocytosis 1+ Sodium Level 138 MMOL/L (136-145) Potassium Level 3.8 MMOL/L (3.5-5.1) Chloride Level 100 MMOL/L (98-107) Carbon Dioxide Level 33 MMOL/L (21-32) H Anion Gap 5 mmol/L (5-15) Blood Urea Nitrogen 52 mg/dL (7-18) H Creatinine 4.0 MG/DL (0.55-1.30) H Estimat Glomerular Filtration Rate 15.5 mL/min (>60) Glucose Level 154 MG/DL (74-106) H Calcium Level 9.3 MG/DL (8.5-10.1) Iron Level 23 ug/dL (50-175) L Total Iron Binding Capacity 180 ug/dL (250-450) L Percent Iron Saturation 13 % (15-50) L Unsaturated Iron Binding 157 ug/dL (112-346) Ferritin 783 NG/ML (8-388) H Total Bilirubin 0.8 MG/DL (0.2-1.0) Aspartate Amino Transf (AST/SGOT) 46 U/L (15-37) H Alanine Aminotransferase (ALT/SGPT) 61 U/L (12-78) Alkaline Phosphatase 253 U/L (46-116) H Total Protein 6.0 G/DL (6.4-8.2) L Albumin 2.7 G/DL (3.4-5.0) L Globulin 3.3 g/dL Albumin/Globulin Ratio 0.8 (1.0-2.7) L Carcinoembryonic Antigen Pending Vitamin B12 Level 1619 PG/ML (193-986) H Folate 6.8 NG/ML (8.6-58.9) L Thyroid Stimulating Hormone (TSH) 2.541 uiU/mL (0.358-3.740) Arterial Blood pH 7.226 (7.350-7.450) Arterial Blood Partial Pressure CO2 80.7 mmHg (35.0-45.0) *H Arterial Blood Partial Pressure O2 114.6 mmHg (75.0-100.0) H Arterial Blood HCO3 32.7 mmol/L (22.0-26.0) H Arterial Blood Oxygen Saturation 97.4 % (95-100) Arterial Blood Base Excess 3.3 (-2-2) H Melecio Test Positive Current Medications Medications (Trade) Dose Ordered Sig/Vicki Route PRN Reason Start Time Stop Time Status Last Admin Dose Admin Acetaminophen (Tylenol) 650 mg Q4H PRN NG Temp >100.5 12/06/19 14:15 01/05/20 14:14 12/16/19 16:30 Acetaminophen (Tylenol) 650 mg Q4H PRN RECTAL Mild Pain (Pain Scale 1-3) 12/04/19 11:45 01/03/20 11:44 12/06/19 19:17 Cefepime HCl 500 mg/Dextrose 50 ml @ 100 mls/hr Q24HRS IV 12/10/19 23:00 12/17/19 22:59 12/15/19 23:33 Chlorhexidine Gluconate (Arely-Hex 2%) 1 applic DAILY@2000 TOPIC 12/05/19 20:00 03/04/20 19:59 12/15/19 20:35 Dextrose (Dextrose 50%) 25 ml Q30M PRN IV Hypoglycemia 11/29/19 14:15 02/27/20 14:14 Dextrose (Dextrose 50%) 50 ml Q30M PRN IV Hypoglycemia 11/29/19 14:15 02/27/20 14:14 Fentanyl Citrate 2500 mcg/Sodium Chloride 250 ml @ 0 mls/hr Q24H IV 12/13/19 00:00 12/20/19 00:00 12/16/19 06:13 Hydralazine HCl (Apresoline) 10 mg Q4H PRN IV For High Blood Pressure 11/29/19 15:15 02/27/20 15:14 Loperamide HCl (Imodium) 2 mg Q6H PRN NG Diarrhea 12/12/19 12:45 01/11/20 12:44 Metronidazole 100 ml @ 100 mls/hr Q8HR IVPB 12/10/19 23:00 12/17/19 22:59 12/16/19 13:22 Midazolam HCl 100 ml @ 0 mls/hr Q24H PRN IV Restlessness 12/16/19 10:45 03/15/20 10:44 12/16/19 13:23 Midodrine (Pro-Amatine) 10 mg THREE TIMES A DAY ORAL 12/12/19 13:00 03/11/20 12:59 12/16/19 18:04 Norepinephrine Bitartrate 16 mg/ Dextrose 566 ml @ 0 mls/hr Q24H IV 12/06/19 09:00 01/05/20 08:59 12/15/19 16:39 Ondansetron HCl (Zofran) 4 mg Q6H PRN IVP Nausea & Vomiting 11/29/19 14:15 12/29/19 14:14 Pantoprazole (Protonix) 40 mg DAILY IVP 11/30/19 12:15 12/30/19 12:14 12/16/19 09:00 Potassium Chloride (K-Dur) 40 meq TWICE A DAY ORAL 12/11/19 09:30 03/10/20 09:29 12/16/19 18:04 Vancomycin HCl (Vanco rx to dose) 1 ea DAILY PRN MISC Per rx protocol 12/08/19 19:30 01/07/20 19:29 Vasopressin 100 units/Sodium Chloride 100 ml @ 0 mls/hr Q24H IV 12/06/19 09:00 01/05/20 08:59 12/06/19 09:03 Vitamin B Complex/ Vit C/Folic Acid (Nephrovite) 1 tab DAILY NG 12/16/19 09:00 01/15/20 08:59 12/16/19 08:59 Ilsa Rodriguez MD December 16, 2019 20:59
--- NOTE | 2019-12-16 22:00 | NUR ---
NURSE NOTES: Pt is sleeping on the bed with sedation. Noted BP 154/67mmHg. Decrease Levophed drip @ 4mcg/min. BT: 97.8F noted. Given suction and oral care. Changed position. Will continue to monitor any change of condition.
[2019-12-17] VITALS (50 sets, daily range): BP systolic 89–137; BP diastolic 46–73
[2019-12-17] MEDS: fentaNYL Citrate 2,500 MCG in NS 200 ML IV SCH ×2 (00:23→16:53)
--- NOTE | 2019-12-17 00:30 | NUR ---
NURSE NOTES: Pt is sleeping on the bed and with sedation. No fever noted. BP is stable. On Fentanyl drip @ 150mcg/hr, Levophed drip @ 3mcg/min and Versed @ 5mg/hr. Collected urine specimen. Changed position. Suction and oral was done. Patent rextal tube. Placed fall precaution. Will continue to monitor any change of condition.
--- NOTE | 2019-12-17 02:00 | NUR ---
NURSE NOTES: Suction was done. Turn and reposition. No fever. SaO2 100% with current Vent setting. Will continue to monitor any change of condition.
--- NOTE | 2019-12-17 04:00 | NUR ---
NURSE NOTES: Morning care was done. Cleaned Pt and applied lotion and cream. Reposition. Giving back rubbing. Suction and mouth care was done. No fever noted. SaO2 100% with current Vent setting. Tolerated well with NG tube feeding. BP is stable with Levophed drip @ 3mcg/min. Placed fall precaution. Will continue to care plan.
[2019-12-17] MEDS: Norepinephrine Bitartrate 16 MG in D5W 500ml 550 ML IV SCH (04:42)
--- NOTE | 2019-12-17 06:00 | NUR ---
NURSE NOTES: No sign of acute distress noted. No fever. SaO2 100% with current Vent setting. Turn and reposition. Placed fall precaution. Will continue to care plan.
--- NOTE | 2019-12-17 07:09 | NUR ---
NURSE NOTES: Received patient from Luis LACKEY. Patient is sedated, RASS -2. Sinus Rhythm on the heart monitor, HR 86. Receiving oxygen via ET tube 8.0 24cm at the lip line, vent settings: AC 20, TV 500, PEEP 5, FiO2 100%. Left nares NGT is intact and receiving Nepro at 35cc/hr. Joe catheter is intact and draining. Rectal tube is intact and draining. IV site is left femoral [place] cath receiving Fentanyl at 150mcg/hr and Levophed at 2mcg/min, Versed at 5mg/hr. Left wrist 20g is intact and asymptomatic. Bed is locked, placed in lowest position, side rails up x3, bed alarm on, call light within reach. Will continue to monitor.
--- NOTE | 2019-12-17 07:16 | Hematology/Onc Progress Note ---
Assessment/Plan Assessment/Plan # Leukocytosis/elevated white blood cell count, unspecified likely related to underlying stress reaction and addition of infection, covid19++ on vent, intubated --> have reviewed peripheral smear and bandemia/neutrophilia noted --> continue antibiotics if they have been started by ID team --> on broad spectrum abx cefepime/flag/vanc --> monitor for resolution --> smear is noted, with metamyelocytes --> wbc trend 18-->24-->32.9-->34k --> ID is aware --> again ordered peripheral smear for path review-->reviewed and no blasts noted # Anemia of chronic disease due to underlying chronic medical issues, multifactorial v Gi bleed --> Anemia workup has been ordered, rule out gi bleed --> No evidence of hemolysis is noted, peripheral smear has been reviewed. --> Hgb goal >7. Transfuse prn. --> Epogen or iron at this time is not particularly indicated --> Medications have been reviewed --> low threshold for gi evaluation in case has occult + ==> hgb trend 11-->10.7-->10.4 # Thrombocytopenia also likely covid related --> supportive care --> plt 149-->164k # Acute Hypoxic Respiratory Failure s/p intubation --> now on vent --> as per Dr. Cortes, weaning # COVID19 positive --> abx # Pneumomediastinum --> monitor for expansion # Subcutaneous emphysema --> too high risk for bedside thoracostomy # ALBARO on ckd --> hd as needed --> per renal # femoral HD cath placed 12/04 --> hd prn # Dvt ppx scds DW Rn and appreciate consultation Subjective HEENT: Denies: no symptoms, eye pain, blurred vision, tearing, double vision, ear pain, ear discharge, nose pain, nose congestion, throat pain, throat swelling, mouth pain, mouth swelling, other Cardiovascular: Denies: no symptoms, chest pain, edema, irregular heart rate, lightheadedness, palpitations, syncope, other Gastrointestinal/Abdominal: Denies: no symptoms, abdomen distended, abdominal pain, black stools, tarry stools, blood in stool, constipated, diarrhea, difficulty swallowing, nausea, poor appetite, poor fluid intake, rectal bleeding , vomiting, other Neurologic/Psychiatric: Denies: no symptoms, anxiety, depressed, emotional problems, headache, numbness, paresthesia, pre-existing deficit, seizure, tingling, tremors, weakness, other Allergies: Coded Allergies: No Known Allergies (Unverified , 11/29/19) Subjective 12/12 remains on vent, ogtube, barnes and rectal tube emptied, right fem jia line 12/14 icu, prone, levo gtt, multiple abx, labs reviewed 12/15 nonv, no bleeding, remains in vent, no bleeding, wbc high, on abx per id 12/16 nonv, on vent, ng, rectal tube, wbc still 34k Objective Objective Current Medications Medications (Trade) Dose Ordered Sig/Vicki Route PRN Reason Start Time Stop Time Status Last Admin Dose Admin Acetaminophen (Tylenol) 650 mg Q4H PRN NG Temp >100.5 12/06/19 14:15 01/05/20 14:14 12/16/19 16:30 Acetaminophen (Tylenol) 650 mg Q4H PRN RECTAL Mild Pain (Pain Scale 1-3) 12/04/19 11:45 01/03/20 11:44 12/06/19 19:17 Chlorhexidine Gluconate (Arely-Hex 2%) 1 applic DAILY@2000 TOPIC 12/05/19 20:00 03/04/20 19:59 12/16/19 20:57 Dextrose (Dextrose 50%) 25 ml Q30M PRN IV Hypoglycemia 11/29/19 14:15 02/27/20 14:14 Dextrose (Dextrose 50%) 50 ml Q30M PRN IV Hypoglycemia 11/29/19 14:15 02/27/20 14:14 Fentanyl Citrate 2500 mcg/Sodium Chloride 250 ml @ 0 mls/hr Q24H IV 12/13/19 00:00 12/20/19 00:00 12/17/19 00:23 Fluconazole/ Sodium Chloride 100 ml @ 100 mls/hr Q24H IV 12/16/19 22:00 12/23/19 21:59 12/16/19 22:10 Hydralazine HCl (Apresoline) 10 mg Q4H PRN IV For High Blood Pressure 11/29/19 15:15 02/27/20 15:14 Loperamide HCl (Imodium) 2 mg Q6H PRN NG Diarrhea 12/12/19 12:45 01/11/20 12:44 Meropenem 500 mg/ Sodium Chloride 50 ml @ 100 mls/hr Q24HRS IVPB 12/16/19 21:30 12/21/19 21:29 12/16/19 21:31 Midazolam HCl 100 ml @ 0 mls/hr Q24H PRN IV Restlessness 12/16/19 10:45 03/15/20 10:44 12/16/19 13:23 Midodrine (Pro-Amatine) 10 mg THREE TIMES A DAY ORAL 12/12/19 13:00 03/11/20 12:59 12/16/19 18:04 Norepinephrine Bitartrate 16 mg/ Dextrose 566 ml @ 0 mls/hr Q24H IV 12/06/19 09:00 01/05/20 08:59 12/17/19 04:42 Ondansetron HCl (Zofran) 4 mg Q6H PRN IVP Nausea & Vomiting 11/29/19 14:15 12/29/19 14:14 Pantoprazole (Protonix) 40 mg DAILY IVP 11/30/19 12:15 12/30/19 12:14 12/16/19 09:00 Potassium Chloride (K-Dur) 40 meq TWICE A DAY ORAL 12/11/19 09:30 03/10/20 09:29 12/16/19 18:04 Vancomycin HCl (Vanco rx to dose) 1 ea DAILY PRN MISC Per rx protocol 12/08/19 19:30 01/07/20 19:29 Vasopressin 100 units/Sodium Chloride 100 ml @ 0 mls/hr Q24H IV 12/06/19 09:00 01/05/20 08:59 12/06/19 09:03 Vitamin B Complex/ Vit C/Folic Acid (Nephrovite) 1 tab DAILY NG 12/16/19 09:00 01/15/20 08:59 12/16/19 08:59 Last 24 Hour Vital Signs Date Time Temp Pulse Resp B/P (MAP) Pulse Ox O2 Delivery O2 Flow Rate FiO2 12/17/19 06:30 89 25 137/69 (91) 100 12/17/19 06:00 95 27 126/68 (87) 96 12/17/19 05:30 98 26 118/67 (84) 95 12/17/19 05:11 96 27 100 12/17/19 05:00 95 26 135/63 (87) 97 12/17/19 05:00 26 Mechanical Ventilator 40 12/17/19 05:00 26 Mechanical Ventilator 40 12/17/19 05:00 135/63 12/17/19 04:42 106/65 12/17/19 04:30 97 22 106/65 (79) 97 12/17/19 04:00 98 12/17/19 04:00 Mechanical Ventilator 12/17/19 04:00 98.2 97 22 100/56 (71) 100 12/17/19 04:00 20 Mechanical Ventilator 100 12/17/19 04:00 20 Mechanical Ventilator 100 12/17/19 04:00 100/56 12/17/19 04:00 100 12/17/19 03:45 96 21 104/61 (75) 100 12/17/19 03:30 97 22 104/58 (73) 100 12/17/19 03:15 95 22 102/57 (72) 100 12/17/19 03:00 93 22 101/56 (71) 100 12/17/19 03:00 22 Mechanical Ventilator 100 12/17/19 03:00 22 Mechanical Ventilator 100 12/17/19 03:00 101/56 12/17/19 02:38 97 26 100 12/17/19 02:30 92 21 101/53 (69) 100 12/17/19 02:00 21 Mechanical Ventilator 100 12/17/19 02:00 21 Mechanical Ventilator 100 12/17/19 02:00 100/55 12/17/19 02:00 90 21 100/55 (70) 100 12/17/19 01:30 86 22 102/58 (73) 100 12/17/19 01:00 86 25 107/60 (76) 100 12/17/19 01:00 25 Mechanical Ventilator 100 12/17/19 01:00 25 Endotracheal Tube 100 12/17/19 01:00 107/60 12/17/19 00:46 88 25 100 12/17/19 00:30 86 23 109/61 (77) 100 12/17/19 00:23 22 Mechanical Ventilator 100 12/17/19 00:00 92 12/17/19 00:00 97.5 86 21 118/62 (80) 100 12/17/19 00:00 22 Mechanical Ventilator 100 12/17/19 00:00 22 Mechanical Ventilator 100 12/17/19 00:00 118/62 12/17/19 00:00 100 12/17/19 00:00 Mechanical Ventilator 12/16/19 23:30 92 27 118/62 (80) 100 12/16/19 23:00 92 24 129/65 (86) 100 12/16/19 23:00 24 100 12/16/19 23:00 24 Mechanical Ventilator 100 12/16/19 23:00 129/64 12/16/19 22:35 94 27 100 12/16/19 22:30 93 26 133/66 (88) 100 12/16/19 22:30 133/66 12/16/19 22:00 26 Mechanical Ventilator 100 12/16/19 22:00 26 Mechanical Ventilator 100 12/16/19 22:00 154/67 12/16/19 22:00 95 26 154/67 (96) 100 12/16/19 21:30 86 25 133/62 (85) 100 12/16/19 21:17 97 34 100 12/16/19 21:00 16 Mechanical Ventilator 100 12/16/19 21:00 16 Mechanical Ventilator 100 12/16/19 21:00 129/65 12/16/19 21:00 85 16 129/65 (86) 100 12/16/19 20:30 87 24 119/54 (75) 98 12/16/19 20:00 Mechanical Ventilator 12/16/19 20:00 28 Mechanical Ventilator 100 12/16/19 20:00 28 Mechanical Ventilator 40 12/16/19 20:00 129/63 12/16/19 20:00 104 12/16/19 20:00 99.8 100 28 129/63 (85) 100 12/16/19 20:00 100 12/16/19 19:38 91 32 100 12/16/19 19:30 106 28 122/58 (79) 100 12/16/19 19:00 30 Endotracheal Tube 100 12/16/19 19:00 30 Endotracheal Tube 100 12/16/19 19:00 122/58 12/16/19 19:00 116 30 122/58 (79) 98 12/16/19 18:30 117 28 115/61 (79) 99 12/16/19 18:15 110 28 118/55 (76) 100 12/16/19 18:00 26 Endotracheal Tube 100 20 18:00 26 Endotracheal Tube 100 12/16/19 18:00 118/55 20 18:00 114 26 106/60 (75) 99 20 17:30 100.4 115 28 97/51 (66) 100 20 17:00 116 28 102/60 (74) 100 12/16/19 17:00 Endotracheal Tube 100 12/16/19 17:00 28 Endotracheal Tube 100 12/16/19 17:00 100.4 12/16/19 17:00 102/60 12/16/19 16:45 117 27 99/61 (74) 100 12/16/19 16:30 26 Endotracheal Tube 100 12/16/19 16:30 111 26 114/63 (80) 100 12/16/19 16:15 110 27 115/63 (80) 100 12/16/19 16:00 Mechanical Ventilator 12/16/19 16:00 27 Endotracheal Tube 100 12/16/19 16:00 27 Endotracheal Tube 100 12/16/19 16:00 117/63 12/16/19 16:00 100.5 114 27 117/63 (81) 100 12/16/19 15:45 113 27 117/59 (78) 100 12/16/19 15:30 112 26 112/62 (79) 100 12/16/19 15:30 26 Endotracheal Tube 100 12/16/19 15:23 109 12/16/19 15:02 113 25 100 12/16/19 15:00 110 25 106/62 (77) 100 12/16/19 15:00 25 Endotracheal Tube 100 12/16/19 15:00 25 Endotracheal Tube 100 12/16/19 15:00 106/62 20 14:30 106 25 111/60 (77) 100 12/16/19 14:15 105 24 118/62 (80) 100 12/16/19 14:00 25 Endotracheal Tube 100 12/16/19 14:00 25 Endotracheal Tube 100 20 14:00 112/66 20 14:00 106 25 112/66 (81) 100 12/16/19 14:00 100 12/16/19 13:45 107 26 105/58 (74) 99 12/16/19 13:30 100 24 99/63 (75) 100 12/16/19 13:23 25 Endotracheal Tube 15.0 100 12/16/19 13:00 106 25 125/63 (83) 100 12/16/19 13:00 25 Endotracheal Tube 100 12/16/19 13:00 125/63 12/16/19 12:30 102 23 127/63 (84) 100 12/16/19 12:00 Mechanical Ventilator 12/16/19 12:00 100 12/16/19 12:00 99.8 106 24 120/59 (79) 100 12/16/19 12:00 125/57 12/16/19 11:33 104 12/16/19 11:30 111 26 128/52 (77) 100 12/16/19 11:00 25 Endotracheal Tube 100 12/16/19 11:00 126/63 12/16/19 11:00 107 25 126/63 (84) 100 12/16/19 10:31 106 28 100 12/16/19 10:30 106 26 134/65 (88) 100 12/16/19 10:00 105 26 146/59 (88) 100 12/16/19 10:00 26 Endotracheal Tube 100 12/16/19 10:00 136/58 12/16/19 09:30 107 27 140/68 (92) 100 12/16/19 09:00 115 27 119/54 (75) 100 12/16/19 09:00 27 Endotracheal Tube 100 12/16/19 08:30 115 27 113/55 (74) 100 12/16/19 08:00 100 12/16/19 08:00 99.3 116 25 112/51 (71) 98 12/16/19 08:00 25 Endotracheal Tube 100 12/16/19 08:00 117/53 12/16/19 08:00 Mechanical Ventilator 12/16/19 07:30 113 24 114/50 (71) 98 12/16/19 07:15 111 12/16/19 07:04 113 28 100 12/16/19 07:00 20 Mechanical Ventilator 100 12/16/19 07:00 125/57 12/16/19 07:00 108 25 125/57 (79) 99 12/16/19 06:30 87 19 114/62 (79) 100 12/16/19 06:13 18 Mechanical Ventilator 100 12/16/19 06:00 77 16 119/62 (81) 100 12/16/19 06:00 18 Mechanical Ventilator 100 12/16/19 06:00 119/62 12/16/19 05:30 72 21 100 12/16/19 05:30 72 18 126/60 (82) 100 12/16/19 05:00 73 22 135/70 (91) 100 12/16/19 05:00 22 Mechanical Ventilator 100 12/16/19 05:00 135/70 12/16/19 04:30 84 16 140/79 (99) 100 12/16/19 04:00 Mechanical Ventilator 12/16/19 04:00 97.5 86 18 158/80 (106) 100 12/16/19 04:00 18 Mechanical Ventilator 100 12/16/19 04:00 158/80 12/16/19 04:00 100 12/16/19 04:00 73 12/16/19 03:46 73 26 100 12/16/19 03:30 75 17 156/67 (96) 100 12/16/19 03:00 78 22 158/73 (101) 100 12/16/19 03:00 21 Mechanical Ventilator 100 12/16/19 03:00 158/73 12/16/19 02:30 140/70 12/16/19 02:30 68 21 149/70 (96) 100 12/16/19 02:00 72 21 137/62 (87) 100 12/16/19 02:00 21 Mechanical Ventilator 100 12/16/19 02:00 137/62 12/16/19 01:30 92 24 100 12/16/19 01:30 82 18 135/64 (87) 100 12/16/19 01:30 135/64 12/16/19 01:00 19 Mechanical Ventilator 100 12/16/19 01:00 128/63 12/16/19 01:00 88 19 128/63 (84) 100 12/16/19 00:30 91 18 121/60 (80) 100 12/16/19 00:00 100 12/16/19 00:00 Mechanical Ventilator 12/16/19 00:00 18 Mechanical Ventilator 100 12/16/19 00:00 120/59 12/16/19 00:00 95 12/16/19 00:00 100.5 91 18 120/59 (79) 100 12/15/19 23:30 84 18 120/55 (76) 100 12/15/19 23:30 16 Mechanical Ventilator 100 12/15/19 23:23 91 23 100 12/15/19 23:00 16 Mechanical Ventilator 100 12/15/19 23:00 114/61 5 23:00 92 18 114/61 (78) 100 12/15/19 22:30 91 19 120/60 (80) 100 12/15/19 22:20 19 Mechanical Ventilator 100 12/15/19 22:20 120/61 12/15/19 22:00 90 19 120/61 (80) 100 12/15/19 22:00 17 Mechanical Ventilator 100 12/15/19 22:00 113/58 12/15/19 21:30 91 17 116/60 (78) 100 12/15/19 21:30 90 22 100 12/15/19 21:00 93 17 113/58 (76) 100 12/15/19 20:30 92 20 120/56 (77) 100 12/15/19 20:00 95 12/15/19 20:00 Mechanical Ventilator 12/15/19 20:00 100.3 94 18 104/56 (72) 100 12/15/19 20:00 18 Mechanical Ventilator 100 12/15/19 20:00 104/56 12/15/19 20:00 100 12/15/19 19:30 91 24 100 12/15/19 19:30 94 17 100/57 (71) 100 12/15/19 19:00 96 16 106/50 (68) 100 12/15/19 19:00 26 Mechanical Ventilator 100 12/15/19 19:00 116/62 12/15/19 18:30 98 16 110/59 (76) 100 12/15/19 18:00 102 18 107/55 (72) 100 12/15/19 18:00 26 Mechanical Ventilator 100 12/15/19 18:00 120/65 12/15/19 17:30 107 17 105/54 (71) 100 12/15/19 17:15 108 20 116/58 (77) 100 12/15/19 17:00 105 18 117/59 (78) 100 12/15/19 17:00 26 Mechanical Ventilator 100 12/15/19 17:00 102/66 12/15/19 16:52 108 24 100 5/3/20 16:45 109 14 114/70 (85) 100 12/15/19 16:39 116/67 12/15/19 16:30 104 15 116/67 (83) 100 12/15/19 16:00 Mechanical Ventilator 12/15/19 16:00 100 12/15/19 16:00 99.6 104 16 108/63 (78) 100 12/15/19 16:00 24 Mechanical Ventilator 100 12/15/19 16:00 108/63 12/15/19 16:00 106 12/15/19 15:45 102 18 109/65 (80) 100 12/15/19 15:30 100 16 114/63 (80) 100 12/15/19 15:15 99 17 107/66 (80) 100 12/15/19 15:15 99 24 100 12/15/19 15:00 101 17 96/57 (70) 100 12/15/19 15:00 26 Mechanical Ventilator 100 12/15/19 15:00 107/66 12/15/19 14:45 99 15 103/64 (77) 100 12/15/19 14:30 98 16 114/63 (80) 100 12/15/19 14:15 96 17 113/68 (83) 100 12/15/19 14:00 95 19 111/54 (73) 100 12/15/19 14:00 26 Mechanical Ventilator 100 12/15/19 14:00 113/68 12/15/19 13:45 91 18 108/65 (79) 100 12/15/19 13:30 90 20 105/63 (77) 100 12/15/19 13:15 94 21 105/54 (71) 100 12/15/19 13:04 94 20 100 12/15/19 13:00 94 20 103/54 (70) 100 12/15/19 13:00 26 Mechanical Ventilator 100 12/15/19 13:00 105/54 12/15/19 12:45 96 21 96/51 (66) 100 12/15/19 12:30 93 20 108/54 (72) 100 12/15/19 12:30 96/51 12/15/19 12:15 98.6 90 22 106/51 (69) 100 12/15/19 12:00 91 21 106/51 (69) 100 12/15/19 12:00 88 12/15/19 12:00 100 12/15/19 12:00 26 Mechanical Ventilator 100 12/15/19 12:00 106/51 12/15/19 12:00 Mechanical Ventilator 12/15/19 11:30 96 21 117/62 (80) 100 12/15/19 11:00 26 Mechanical Ventilator 100 12/15/19 11:00 110/62 12/15/19 11:00 95 21 110/62 (78) 100 12/15/19 10:51 95 20 100 12/15/19 10:30 95 21 116/55 (75) 100 12/15/19 10:00 26 Mechanical Ventilator 100 12/15/19 10:00 114/53 12/15/19 10:00 96 18 114/53 (73) 100 12/15/19 09:30 95 12 117/60 (79) 100 12/15/19 09:04 84 22 100 12/15/19 09:00 92 12 119/59 (79) 100 12/15/19 09:00 26 Mechanical Ventilator 100 12/15/19 09:00 116/58 12/15/19 09:00 116/58 12/15/19 08:30 84 11 115/58 (77) 100 12/15/19 08:00 82 12/15/19 08:00 97.6 12/15/19 08:00 26 Mechanical Ventilator 100 12/15/19 08:00 113/64 12/15/19 08:00 82 14 113/64 (80) 100 12/15/19 08:00 Mechanical Ventilator 12/15/19 08:00 100 12/15/19 07:30 82 13 114/55 (74) 100 12/15/19 07:15 80 11 115/60 (78) 100 Intake and Output 12/16/19 12/17/19 19:00 07:00 Intake Total 1318.32 ml 916.546 ml Output Total 2140 ml 415 ml Balance -821.68 ml 501.546 ml Free Water 500 ml IV Total 398.32 ml 531.546 ml Tube Feeding 420 ml 385 ml Output Urine Total 40 ml 15 ml Stool Total 100 ml 400 ml Hemodialysis UF 2000 ml Labs Test 12/14/19 08:50 12/15/19 05:45 12/16/19 06:10 12/16/19 11:36 Arterial Blood pH 7.146 (7.350-7.450) 7.226 (7.350-7.450) Arterial Blood Partial Pressure CO2 101.2 mmHg (35.0-45.0) 80.7 mmHg (35.0-45.0) Arterial Blood Partial Pressure O2 193.5 mmHg (75.0-100.0) 114.6 mmHg (75.0-100.0) Arterial Blood HCO3 34.1 mmol/L (22.0-26.0) 32.7 mmol/L (22.0-26.0) Arterial Blood Oxygen Saturation 98.4 % (95-100) 97.4 % (95-100) Arterial Blood Base Excess 3.0 (-2-2) 3.3 (-2-2) Melecio Test Positive Positive White Blood Count 32.9 K/UL (4.8-10.8) 33.5 K/UL (4.8-10.8) Red Blood Count 3.53 M/UL (4.70-6.10) 3.35 M/UL (4.70-6.10) Hemoglobin 10.4 G/DL (14.2-18.0) 9.9 G/DL (14.2-18.0) Hematocrit 33.1 % (42.0-52.0) 31.2 % (42.0-52.0) Mean Corpuscular Volume 94 FL (80-99) 93 FL (80-99) Mean Corpuscular Hemoglobin 29.5 PG (27.0-31.0) 29.7 PG (27.0-31.0) Mean Corpuscular Hemoglobin Concent 31.5 G/DL (32.0-36.0) 31.9 G/DL (32.0-36.0) Red Cell Distribution Width 14.0 % (11.6-14.8) 13.7 % (11.6-14.8) Platelet Count 160 K/UL (150-450) 169 K/UL (150-450) Mean Platelet Volume 9.1 FL (6.5-10.1) 8.4 FL (6.5-10.1) Neutrophils (%) (Auto) % (45.0-75.0) % (45.0-75.0) Lymphocytes (%) (Auto) % (20.0-45.0) % (20.0-45.0) Monocytes (%) (Auto) % (1.0-10.0) % (1.0-10.0) Eosinophils (%) (Auto) % (0.0-3.0) % (0.0-3.0) Basophils (%) (Auto) % (0.0-2.0) % (0.0-2.0) Differential Total Cells Counted 100 100 Neutrophils % (Manual) 87 % (45-75) 79 % (45-75) Lymphocytes % (Manual) 5 % (20-45) 4 % (20-45) Monocytes % (Manual) 6 % (1-10) 8 % (1-10) Eosinophils % (Manual) 0 % (0-3) 0 % (0-3) Basophils % (Manual) 0 % (0-2) 0 % (0-2) Metamyelocytes % 1 % (0-0) 2 % (0-0) Myelocytes % 1 % (0-0) Band Neutrophils 0 % (0-8) 7 % (0-8) Platelet Estimate Adequate Adequate Platelet Morphology Normal Normal Sodium Level 142 MMOL/L (136-145) 138 MMOL/L (136-145) Potassium Level 4.6 MMOL/L (3.5-5.1) 3.8 MMOL/L (3.5-5.1) Chloride Level 105 MMOL/L (98-107) 100 MMOL/L (98-107) Carbon Dioxide Level 31 MMOL/L (21-32) 33 MMOL/L (21-32) Anion Gap 6 mmol/L (5-15) 5 mmol/L (5-15) Blood Urea Nitrogen 55 mg/dL (7-18) 52 mg/dL (7-18) Creatinine 4.5 MG/DL (0.55-1.30) 4.0 MG/DL (0.55-1.30) Estimat Glomerular Filtration Rate 13.5 mL/min (>60) 15.5 mL/min (>60) Glucose Level 166 MG/DL (74-106) 154 MG/DL (74-106) Calcium Level 9.4 MG/DL (8.5-10.1) 9.3 MG/DL (8.5-10.1) Total Bilirubin 1.0 MG/DL (0.2-1.0) 0.8 MG/DL (0.2-1.0) Aspartate Amino Transf (AST/SGOT) 64 U/L (15-37) 46 U/L (15-37) Alanine Aminotransferase (ALT/SGPT) 86 U/L (12-78) 61 U/L (12-78) Alkaline Phosphatase 258 U/L (46-116) 253 U/L (46-116) Total Protein 6.3 G/DL (6.4-8.2) 6.0 G/DL (6.4-8.2) Albumin 2.8 G/DL (3.4-5.0) 2.7 G/DL (3.4-5.0) Globulin 3.5 g/dL 3.3 g/dL Albumin/Globulin Ratio 0.8 (1.0-2.7) 0.8 (1.0-2.7) Random Vancomycin Level 7.9 ug/mL Hypochromasia 2+ Anisocytosis 1+ Iron Level 23 ug/dL (50-175) Total Iron Binding Capacity 180 ug/dL (250-450) Percent Iron Saturation 13 % (15-50) Unsaturated Iron Binding 157 ug/dL (112-346) Ferritin 783 NG/ML (8-388) Vitamin B12 Level 1619 PG/ML (193-986) Folate 6.8 NG/ML (8.6-58.9) Thyroid Stimulating Hormone (TSH) 2.541 uiU/mL (0.358-3.740) Test 12/17/19 00:38 12/17/19 06:55 Height (Feet): 5 Height (Inches): 6.00 Weight (Pounds): 161 Objective General Appearance: prone position on vent Heent: nc, at+ ng Respiratory: normal breath sounds, no retraction, vent++ Cardiovascular: no edema, tachycardia Gastrointestinal: normal inspection Neurologic unresponsive on vent Psychiatric: judgement/insight normal, memory normal, mood/affect normal, no suicidal/homicidal ideation Ext: with hd fem jia in place : + barnes and rectal tube Mj Zhu MD December 17, 2019 07:16
[2019-12-17 07:19] LABS: HEMATOCRIT 31.6 % (42.0-52.0); HEMOGLOBIN 10.3 G/DL (14.2-18.0); MEAN CORPUSCULAR VOLUME 94 FL (80-99); PLATELET COUNT 179 K/UL (150-450); RED BLOOD COUNT 3.38 M/UL (4.70-6.10); RED CELL DISTRIBUTION WIDTH 14.2 % (11.6-14.8)
--- NOTE | 2019-12-17 07:20 | NUR ---
HAND-OFF: Report given to DARYA Luciano. Pt is sleeping on the bed and no sign of acute distress noted.
[2019-12-17 07:22] LABS: WHITE BLOOD COUNT 27.4 K/UL (4.8-10.8)
[2019-12-17 07:56] LABS: ALANINE AMINOTRANSFERASE 53 U/L (12-78); ALBUMIN 2.6 G/DL (3.4-5.0); ALBUMIN/GLOBULIN RATIO 0.8 (1.0-2.7); ALKALINE PHOSPHATASE 235 U/L (46-116); ANION GAP 7 mmol/L (5-15); ASPARTATE AMINO TRANSFERASE 40 U/L (15-37); BILIRUBIN,TOTAL 0.7 MG/DL (0.2-1.0); BLOOD UREA NITROGEN 82 mg/dL (7-18); CALCIUM 10.2 MG/DL (8.5-10.1); CARBON DIOXIDE 30 MMOL/L (21-32); CHLORIDE 105 MMOL/L (98-107); CREATININE 3.9 MG/DL (0.55-1.30); POTASSIUM 4.2 MMOL/L (3.5-5.1); SODIUM 142 MMOL/L (136-145)
[2019-12-17] MEDS: Vasopressin 100 UNITS in NS 95 ML IV SCH (09:00)
--- NOTE | 2019-12-17 09:04 | Nephrology Progress Note ---
Assessment/Plan Plan #ALBARO- concerns for developing ischemic ATN in the setting of sepsis- r/o vanco toxicity - r/o COVID nephropathy - now with likely ATN #Hyperkalemia due to renal insuffiency - exacerbated by acidosis #COID sepsis #COVID pneumonia #hypoxemic respiratary failure #HTN- now in shock #mediastinal PTX - HD today - order placed- UF as tolerated- 2L-> will give albumin PRN - midodorine 10mg q8hr - monitor I&Os - daily weights - monitor lytes closely -add nephrovite - GOALS of care discussion - continue pressor support to maintain MAP > 65- continue levo - continue fentanyl dip - abx per ID- on vanco and cefepime, flagyl - vent management per pulm -Abd Xray shows mediastinal PTX - too high risk for thorocotomy Subjective ROS Limited/Unobtainable: Yes Subjective s/p HD yesterday with 2.L UF plan HD gain today remains oliguric on Fio2 100 on levo Abd Xray shows mediastinal PTX Objective Objective Last 24 Hour Vital Signs Date Time Temp Pulse Resp B/P (MAP) Pulse Ox O2 Delivery O2 Flow Rate FiO2 12/17/19 07:11 86 25 100 12/17/19 07:00 25 Mechanical Ventilator 100 12/17/19 07:00 25 Mechanical Ventilator 40 12/17/19 07:00 127/63 12/17/19 07:00 88 25 127/63 (84) 100 12/17/19 06:30 89 25 137/69 (91) 100 12/17/19 06:00 95 27 126/68 (87) 96 12/17/19 05:30 98 26 118/67 (84) 95 12/17/19 05:11 96 27 100 12/17/19 05:00 95 26 135/63 (87) 97 12/17/19 05:00 26 Mechanical Ventilator 40 12/17/19 05:00 26 Mechanical Ventilator 40 12/17/19 05:00 135/63 12/17/19 04:42 106/65 12/17/19 04:30 97 22 106/65 (79) 97 12/17/19 04:00 98 12/17/19 04:00 Mechanical Ventilator 12/17/19 04:00 98.2 97 22 100/56 (71) 100 12/17/19 04:00 20 Mechanical Ventilator 100 12/17/19 04:00 20 Mechanical Ventilator 100 12/17/19 04:00 100/56 12/17/19 04:00 100 12/17/19 03:45 96 21 104/61 (75) 100 12/17/19 03:30 97 22 104/58 (73) 100 12/17/19 03:15 95 22 102/57 (72) 100 12/17/19 03:00 93 22 101/56 (71) 100 12/17/19 03:00 22 Mechanical Ventilator 100 12/17/19 03:00 22 Mechanical Ventilator 100 12/17/19 03:00 101/56 12/17/19 02:38 97 26 100 12/17/19 02:30 92 21 101/53 (69) 100 12/17/19 02:00 21 Mechanical Ventilator 100 12/17/19 02:00 21 Mechanical Ventilator 100 12/17/19 02:00 100/55 12/17/19 02:00 90 21 100/55 (70) 100 12/17/19 01:30 86 22 102/58 (73) 100 12/17/19 01:00 86 25 107/60 (76) 100 12/17/19 01:00 25 Mechanical Ventilator 100 12/17/19 01:00 25 Endotracheal Tube 100 12/17/19 01:00 107/60 12/17/19 00:46 88 25 100 12/17/19 00:30 86 23 109/61 (77) 100 12/17/19 00:23 22 Mechanical Ventilator 100 12/17/19 00:00 92 12/17/19 00:00 97.5 86 21 118/62 (80) 100 12/17/19 00:00 22 Mechanical Ventilator 100 12/17/19 00:00 22 Mechanical Ventilator 100 12/17/19 00:00 118/62 12/17/19 00:00 100 12/17/19 00:00 Mechanical Ventilator 12/16/19 23:30 92 27 118/62 (80) 100 12/16/19 23:00 92 24 129/65 (86) 100 12/16/19 23:00 24 100 12/16/19 23:00 24 Mechanical Ventilator 100 12/16/19 23:00 129/64 12/16/19 22:35 94 27 100 12/16/19 22:30 93 26 133/66 (88) 100 12/16/19 22:30 133/66 12/16/19 22:00 26 Mechanical Ventilator 100 12/16/19 22:00 26 Mechanical Ventilator 100 12/16/19 22:00 154/67 12/16/19 22:00 95 26 154/67 (96) 100 20 21:30 86 25 133/62 (85) 100 12/16/19 21:17 97 34 100 12/16/19 21:00 16 Mechanical Ventilator 100 12/16/19 21:00 16 Mechanical Ventilator 100 12/16/19 21:00 129/65 12/16/19 21:00 85 16 129/65 (86) 100 12/16/19 20:30 87 24 119/54 (75) 98 12/16/19 20:00 Mechanical Ventilator 12/16/19 20:00 28 Mechanical Ventilator 100 12/16/19 20:00 28 Mechanical Ventilator 40 12/16/19 20:00 129/63 12/16/19 20:00 104 12/16/19 20:00 99.8 100 28 129/63 (85) 100 12/16/19 20:00 100 12/16/19 19:38 91 32 100 12/16/19 19:30 106 28 122/58 (79) 100 12/16/19 19:00 30 Endotracheal Tube 100 12/16/19 19:00 30 Endotracheal Tube 100 12/16/19 19:00 122/58 12/16/19 19:00 116 30 122/58 (79) 98 12/16/19 18:30 117 28 115/61 (79) 99 12/16/19 18:15 110 28 118/55 (76) 100 12/16/19 18:00 26 Endotracheal Tube 100 12/16/19 18:00 26 Endotracheal Tube 100 12/16/19 18:00 118/55 12/16/19 18:00 114 26 106/60 (75) 99 12/16/19 17:30 100.4 115 28 97/51 (66) 100 12/16/19 17:00 116 28 102/60 (74) 100 12/16/19 17:00 Endotracheal Tube 100 12/16/19 17:00 28 Endotracheal Tube 100 12/16/19 17:00 100.4 12/16/19 17:00 102/60 12/16/19 16:45 117 27 99/61 (74) 100 12/16/19 16:30 26 Endotracheal Tube 100 12/16/19 16:30 111 26 114/63 (80) 100 12/16/19 16:15 110 27 115/63 (80) 100 20 16:00 Mechanical Ventilator 12/16/19 16:00 27 Endotracheal Tube 100 12/16/19 16:00 27 Endotracheal Tube 100 12/16/19 16:00 117/63 12/16/19 16:00 100.5 114 27 117/63 (81) 100 12/16/19 15:45 113 27 117/59 (78) 100 12/16/19 15:30 112 26 112/62 (79) 100 12/16/19 15:30 26 Endotracheal Tube 100 12/16/19 15:23 109 12/16/19 15:02 113 25 100 12/16/19 15:00 110 25 106/62 (77) 100 12/16/19 15:00 25 Endotracheal Tube 100 12/16/19 15:00 25 Endotracheal Tube 100 12/16/19 15:00 106/62 12/16/19 14:30 106 25 111/60 (77) 100 12/16/19 14:15 105 24 118/62 (80) 100 12/16/19 14:00 25 Endotracheal Tube 100 12/16/19 14:00 25 Endotracheal Tube 100 12/16/19 14:00 112/66 12/16/19 14:00 106 25 112/66 (81) 100 12/16/19 14:00 100 12/16/19 13:45 107 26 105/58 (74) 99 12/16/19 13:30 100 24 99/63 (75) 100 20 13:23 25 Endotracheal Tube 15.0 100 12/16/19 13:00 106 25 125/63 (83) 100 12/16/19 13:00 25 Endotracheal Tube 100 12/16/19 13:00 125/63 12/16/19 12:30 102 23 127/63 (84) 100 12/16/19 12:00 Mechanical Ventilator 12/16/19 12:00 100 12/16/19 12:00 99.8 106 24 120/59 (79) 100 12/16/19 12:00 125/57 12/16/19 11:33 104 5/4/20 11:30 111 26 128/52 (77) 100 12/16/19 11:00 25 Endotracheal Tube 100 12/16/19 11:00 126/63 12/16/19 11:00 107 25 126/63 (84) 100 12/16/19 10:31 106 28 100 12/16/19 10:30 106 26 134/65 (88) 100 12/16/19 10:00 105 26 146/59 (88) 100 12/16/19 10:00 26 Endotracheal Tube 100 12/16/19 10:00 136/58 12/16/19 09:30 107 27 140/68 (92) 100 Intake and Output 12/16/19 12/17/19 19:00 07:00 Intake Total 1318.32 ml 974.546 ml Output Total 2140 ml 415 ml Balance -821.68 ml 559.546 ml Free Water 500 ml IV Total 398.32 ml 554.546 ml Tube Feeding 420 ml 420 ml Output Urine Total 40 ml 15 ml Stool Total 100 ml 400 ml Hemodialysis UF 2000 ml Laboratory Tests 12/16/19 11:36: Arterial Blood pH 7.226*L, Arterial Blood Partial Pressure CO2 80.7*H, Arterial Blood Partial Pressure O2 114.6H, Arterial Blood HCO3 32.7H, Arterial Blood Oxygen Saturation 97.4, Arterial Blood Base Excess 3.3H, Melecio Test Positive 12/17/19 00:38: Urine Color [Pending], Urine Appearance [Pending], Urine pH [Pending], Urine Specific Mobile [Pending], Urine Protein [Pending], Urine Glucose (UA) [Pending ], Urine Ketones [Pending], Urine Blood [Pending], Urine Nitrite [Pending], Urine Bilirubin [Pending], Urine Urobilinogen [Pending], Urine Leukocyte Esterase [Pending] 12/17/19 06:55: White Blood Count 27.4*H, Red Blood Count 3.38L, Hemoglobin 10.3L, Hematocrit 31.6L, Mean Corpuscular Volume 94, Mean Corpuscular Hemoglobin 30.5, Mean Corpuscular Hemoglobin Concent 32.5, Red Cell Distribution Width 14.2, Platelet Count 179, Mean Platelet Volume 7.4, Neutrophils (%) (Auto) , Lymphocytes (%) ( Auto) , Monocytes (%) (Auto) , Eosinophils (%) (Auto) , Basophils (%) (Auto) , Neutrophils % (Manual) [Pending], Lymphocytes % (Manual) [Pending], Platelet Estimate [Pending], Platelet Morphology [Pending], Sodium Level 142, Potassium Level 4.2, Chloride Level 105, Carbon Dioxide Level 30, Anion Gap 7, Blood Urea Nitrogen 82H, Creatinine 3.9H, Estimat Glomerular Filtration Rate 16.0, Glucose Level 123H, Calcium Level 10.2H, Total Bilirubin 0.7, Aspartate Amino Transf ( AST/SGOT) 40H, Alanine Aminotransferase (ALT/SGPT) 53, Alkaline Phosphatase 235H , Total Protein 6.0L, Albumin 2.6L, Globulin 3.4, Albumin/Globulin Ratio 0.8L, Random Vancomycin Level 11.6 Height (Feet): 5 Height (Inches): 6.00 Weight (Pounds): 161 Objective General Appearance: other - intubated- proned Lines, tubes and drains: central line HEENT: normocephalic, atraumatic Respiratory/Chest: rhonchi - bilaterally Cardiovascular/Chest: other - tachycardic Extremities: pitting Dorian Soriano M.D. December 17, 2019 09:04
[2019-12-17] MEDS: Pantoprazole Inj IVP SCH (09:33)
[2019-12-17] MEDS: Nephrovite tab (Rena-Vite) NG SCH (09:34)
[2019-12-17] MEDS: Midodrine 10mg tab ORAL SCH ×3 (09:34→17:08)
--- NOTE | 2019-12-17 09:56 | NUR ---
NURSE NOTES: Turned and repositioned patient, oral care given, medications given as prescribed, no adverse reactions. Bloody sputum suctioned from patient's oral cavity. No signs of acute distress, FLACC score 0.
[2019-12-17] MEDS ORDERED: Vancomycin 1 GM in NS 275 ML IVPB SCH (10:00)
--- NOTE | 2019-12-17 11:19 | General Progress Note ---
Assessment/Plan Problem List: (1) Elevated LFTs ICD Codes: R79.89 - Other specified abnormal findings of blood chemistry SNOMED: 460738874, 073429881 (2) HTN (hypertension) ICD Codes: I10 - Essential (primary) hypertension SNOMED: 11358178 (3) Suspected COVID-19 virus infection ICD Codes: R68.89 - Other general symptoms and signs SNOMED: 748614866 (4) Pneumonia ICD Codes: J18.9 - Pneumonia, unspecified organism SNOMED: 994933068 (5) Respiratory distress ICD Codes: R06.03 - Acute respiratory distress SNOMED: 620983358 (6) Pneumomediastinum ICD Codes: J98.2 - Interstitial emphysema SNOMED: 98849246 (7) COVID-19 ICD Codes: U07.1 - COVID-19 SNOMED: 215169714 (8) Hypotension ICD Codes: I95.9 - Hypotension, unspecified SNOMED: 34357617 Status: unchanged Assessment/Plan: NGTF rectal tube in place elevated LFTS most likely due to shock liver>>> improving repeat labs in am hepatitis panel>>>Neg abd us when off of isolation fu nephrology recent labs and notes reviewed D/W the nurse change tf to vital F Subjective ROS Limited/Unobtainable: No Allergies: Coded Allergies: No Known Allergies (Unverified , 11/29/19) Objective Last 24 Hour Vital Signs Date Time Temp Pulse Resp B/P (MAP) Pulse Ox O2 Delivery O2 Flow Rate FiO2 12/17/19 10:50 29 Endotracheal Tube 15.0 100 12/17/19 10:00 93 29 109/66 (80) 100 12/17/19 10:00 29 Endotracheal Tube 100 12/17/19 09:30 89 27 113/62 (79) 100 12/17/19 09:00 88 27 117/64 (81) 100 12/17/19 09:00 27 Endotracheal Tube 100 12/17/19 08:30 87 26 115/67 (83) 100 12/17/19 08:00 97.9 85 26 127/63 (84) 100 12/17/19 08:00 26 Endotracheal Tube 100 12/17/19 08:00 100 12/17/19 08:00 Mechanical Ventilator 12/17/19 07:57 85 12/17/19 07:30 88 25 130/62 (84) 100 12/17/19 07:11 86 25 100 12/17/19 07:00 25 Mechanical Ventilator 100 12/17/19 07:00 25 Mechanical Ventilator 40 12/17/19 07:00 127/63 12/17/19 07:00 88 25 127/63 (84) 100 12/17/19 06:30 89 25 137/69 (91) 100 12/17/19 06:00 95 27 126/68 (87) 96 12/17/19 05:30 98 26 118/67 (84) 95 12/17/19 05:11 96 27 100 12/17/19 05:00 95 26 135/63 (87) 97 12/17/19 05:00 26 Mechanical Ventilator 40 12/17/19 05:00 26 Mechanical Ventilator 40 12/17/19 05:00 135/63 12/17/19 04:42 106/65 12/17/19 04:30 97 22 106/65 (79) 97 12/17/19 04:00 98 12/17/19 04:00 Mechanical Ventilator 12/17/19 04:00 98.2 97 22 100/56 (71) 100 12/17/19 04:00 20 Mechanical Ventilator 100 12/17/19 04:00 20 Mechanical Ventilator 100 12/17/19 04:00 100/56 12/17/19 04:00 100 12/17/19 03:45 96 21 104/61 (75) 100 12/17/19 03:30 97 22 104/58 (73) 100 12/17/19 03:15 95 22 102/57 (72) 100 12/17/19 03:00 93 22 101/56 (71) 100 12/17/19 03:00 22 Mechanical Ventilator 100 12/17/19 03:00 22 Mechanical Ventilator 100 12/17/19 03:00 101/56 12/17/19 02:38 97 26 100 12/17/19 02:30 92 21 101/53 (69) 100 12/17/19 02:00 21 Mechanical Ventilator 100 12/17/19 02:00 21 Mechanical Ventilator 100 12/17/19 02:00 100/55 12/17/19 02:00 90 21 100/55 (70) 100 12/17/19 01:30 86 22 102/58 (73) 100 12/17/19 01:00 86 25 107/60 (76) 100 12/17/19 01:00 25 Mechanical Ventilator 100 12/17/19 01:00 25 Endotracheal Tube 100 12/17/19 01:00 107/60 12/17/19 00:46 88 25 100 12/17/19 00:30 86 23 109/61 (77) 100 12/17/19 00:23 22 Mechanical Ventilator 100 12/17/19 00:00 92 12/17/19 00:00 97.5 86 21 118/62 (80) 100 12/17/19 00:00 22 Mechanical Ventilator 100 12/17/19 00:00 22 Mechanical Ventilator 100 12/17/19 00:00 118/62 12/17/19 00:00 100 12/17/19 00:00 Mechanical Ventilator 12/16/19 23:30 92 27 118/62 (80) 100 12/16/19 23:00 92 24 129/65 (86) 100 12/16/19 23:00 24 100 12/16/19 23:00 24 Mechanical Ventilator 100 12/16/19 23:00 129/64 12/16/19 22:35 94 27 100 12/16/19 22:30 93 26 133/66 (88) 100 12/16/19 22:30 133/66 12/16/19 22:00 26 Mechanical Ventilator 100 12/16/19 22:00 26 Mechanical Ventilator 100 12/16/19 22:00 154/67 12/16/19 22:00 95 26 154/67 (96) 100 12/16/19 21:30 86 25 133/62 (85) 100 12/16/19 21:17 97 34 100 12/16/19 21:00 16 Mechanical Ventilator 100 12/16/19 21:00 16 Mechanical Ventilator 100 12/16/19 21:00 129/65 12/16/19 21:00 85 16 129/65 (86) 100 12/16/19 20:30 87 24 119/54 (75) 98 12/16/19 20:00 Mechanical Ventilator 12/16/19 20:00 28 Mechanical Ventilator 100 12/16/19 20:00 28 Mechanical Ventilator 40 12/16/19 20:00 129/63 5/20 20:00 104 12/16/19 20:00 99.8 100 28 129/63 (85) 100 5/4/20 20:00 100 520 19:38 91 32 100 520 19:30 106 28 122/58 (79) 100 520 19:00 30 Endotracheal Tube 100 520 19:00 30 Endotracheal Tube 100 5/20 19:00 122/58 520 19:00 116 30 122/58 (79) 98 520 18:30 117 28 115/61 (79) 99 20 18:15 110 28 118/55 (76) 100 520 18:00 26 Endotracheal Tube 100 20 18:00 26 Endotracheal Tube 100 20 18:00 118/55 20 18:00 114 26 106/60 (75) 99 20 17:30 100.4 115 28 97/51 (66) 100 20 17:00 116 28 102/60 (74) 100 12/16/19 17:00 Endotracheal Tube 100 12/16/19 17:00 28 Endotracheal Tube 100 12/16/19 17:00 100.4 520 17:00 102/60 12/16/19 16:45 117 27 99/61 (74) 100 12/16/19 16:30 26 Endotracheal Tube 100 12/16/19 16:30 111 26 114/63 (80) 100 20 16:15 110 27 115/63 (80) 100 20 16:00 Mechanical Ventilator 12/16/19 16:00 27 Endotracheal Tube 100 12/16/19 16:00 27 Endotracheal Tube 100 20 16:00 117/63 5 16:00 100.5 114 27 117/63 (81) 100 20 15:45 113 27 117/59 (78) 100 20 15:30 112 26 112/62 (79) 100 20 15:30 26 Endotracheal Tube 100 20 15:23 109 5/20 15:02 113 25 100 5/20 15:00 110 25 106/62 (77) 100 520 15:00 25 Endotracheal Tube 100 520 15:00 25 Endotracheal Tube 100 20 15:00 106/62 5//20 14:30 106 25 111/60 (77) 100 12/16/19 14:15 105 24 118/62 (80) 100 12/16/19 14:00 25 Endotracheal Tube 100 12/16/19 14:00 25 Endotracheal Tube 100 12/16/19 14:00 112/66 12/16/19 14:00 106 25 112/66 (81) 100 12/16/19 14:00 100 12/16/19 13:45 107 26 105/58 (74) 99 12/16/19 13:30 100 24 99/63 (75) 100 12/16/19 13:23 25 Endotracheal Tube 15.0 100 12/16/19 13:00 106 25 125/63 (83) 100 12/16/19 13:00 25 Endotracheal Tube 100 12/16/19 13:00 125/63 12/16/19 12:30 102 23 127/63 (84) 100 12/16/19 12:00 Mechanical Ventilator 12/16/19 12:00 100 12/16/19 12:00 99.8 106 24 120/59 (79) 100 12/16/19 12:00 125/57 12/16/19 11:33 104 12/16/19 11:30 111 26 128/52 (77) 100 Intake and Output 12/16/19 12/17/19 19:00 07:00 Intake Total 1318.32 ml 974.546 ml Output Total 2140 ml 415 ml Balance -821.68 ml 559.546 ml Free Water 500 ml IV Total 398.32 ml 554.546 ml Tube Feeding 420 ml 420 ml Output Urine Total 40 ml 15 ml Stool Total 100 ml 400 ml Hemodialysis UF 2000 ml Laboratory Tests 12/16/19 11:36: Arterial Blood pH 7.226*L, Arterial Blood Partial Pressure CO2 80.7*H, Arterial Blood Partial Pressure O2 114.6H, Arterial Blood HCO3 32.7H, Arterial Blood Oxygen Saturation 97.4, Arterial Blood Base Excess 3.3H, Melecio Test Positive 12/17/19 06:55: White Blood Count 27.4*H, Red Blood Count 3.38L, Hemoglobin 10.3L, Hematocrit 31.6L, Mean Corpuscular Volume 94, Mean Corpuscular Hemoglobin 30.5, Mean Corpuscular Hemoglobin Concent 32.5, Red Cell Distribution Width 14.2, Platelet Count 179, Mean Platelet Volume 7.4, Neutrophils (%) (Auto) , Lymphocytes (%) ( Auto) , Monocytes (%) (Auto) , Eosinophils (%) (Auto) , Basophils (%) (Auto) , Differential Total Cells Counted 100, Neutrophils % (Manual) 88H, Lymphocytes % (Manual) 6L, Monocytes % (Manual) 6, Eosinophils % (Manual) 0, Basophils % ( Manual) 0, Band Neutrophils 0, Platelet Estimate Adequate, Platelet Morphology Normal, Hypochromasia 1+, Anisocytosis 1+, Sodium Level 142, Potassium Level 4.2 , Chloride Level 105, Carbon Dioxide Level 30, Anion Gap 7, Blood Urea Nitrogen 82H, Creatinine 3.9H, Estimat Glomerular Filtration Rate 16.0, Glucose Level 123H, Calcium Level 10.2H, Total Bilirubin 0.7, Aspartate Amino Transf (AST/SGOT ) 40H, Alanine Aminotransferase (ALT/SGPT) 53, Alkaline Phosphatase 235H, Total Protein 6.0L, Albumin 2.6L, Globulin 3.4, Albumin/Globulin Ratio 0.8L, Random Vancomycin Level 11.6 Height (Feet): 5 Height (Inches): 6.00 Weight (Pounds): 161 General Appearance: no apparent distress EENT: normal ENT inspection Neck: supple Cardiovascular: tachycardia Respiratory/Chest: decreased breath sounds Abdomen: normal bowel sounds, non tender, soft Extremities: non-tender João Rdz MD December 17, 2019 11:19
--- NOTE | 2019-12-17 11:34 | Cardiac Electrophysiology PN ---
Assessment/Plan Assessment/Plan 1. Atrial fib with RVR 170 before intubation on 12/04/19. Converted to Sinus tach Troponin 0.77. No further atrial fib. In SR 2. Sinus Tachycardia due to respiratory failure and COVID-19 pneumonia. On IV antibiotic per ID. Echo pending COVID. 3. Septic shock. On Levophed 3 Mcg, Midodrine 10 tid and iv Abx. 4. Respiratory failure, on the Vent by Dr. Cortes. 100% Fio2 PEEP 5 5. Acute renal failure. On HD per Dr. Sanchez via RFV [place] 6. Full code DW RN Subjective Subjective Intubated in ICU on 100% Fio2 and PEEP 10 on Levo 3 mcg . Atrial fib with RVR 160s on 12/04/19 but no recurrence. In SR had 2 liter HD yesterday and getting HD again today Objective Last 24 Hour Vital Signs Date Time Temp Pulse Resp B/P (MAP) Pulse Ox O2 Delivery O2 Flow Rate FiO2 12/17/19 10:50 29 Endotracheal Tube 15.0 100 12/17/19 10:00 93 29 109/66 (80) 100 12/17/19 10:00 29 Endotracheal Tube 100 12/17/19 09:30 89 27 113/62 (79) 100 12/17/19 09:00 88 27 117/64 (81) 100 12/17/19 09:00 27 Endotracheal Tube 100 12/17/19 08:30 87 26 115/67 (83) 100 12/17/19 08:00 97.9 85 26 127/63 (84) 100 12/17/19 08:00 26 Endotracheal Tube 100 12/17/19 08:00 100 12/17/19 08:00 Mechanical Ventilator 12/17/19 07:57 85 12/17/19 07:30 88 25 130/62 (84) 100 12/17/19 07:11 86 25 100 12/17/19 07:00 25 Mechanical Ventilator 100 12/17/19 07:00 25 Mechanical Ventilator 40 12/17/19 07:00 127/63 12/17/19 07:00 88 25 127/63 (84) 100 12/17/19 06:30 89 25 137/69 (91) 100 12/17/19 06:00 95 27 126/68 (87) 96 12/17/19 05:30 98 26 118/67 (84) 95 12/17/19 05:11 96 27 100 12/17/19 05:00 95 26 135/63 (87) 97 12/17/19 05:00 26 Mechanical Ventilator 40 12/17/19 05:00 26 Mechanical Ventilator 40 12/17/19 05:00 135/63 12/17/19 04:42 106/65 12/17/19 04:30 97 22 106/65 (79) 97 12/17/19 04:00 98 12/17/19 04:00 Mechanical Ventilator 12/17/19 04:00 98.2 97 22 100/56 (71) 100 12/17/19 04:00 20 Mechanical Ventilator 100 12/17/19 04:00 20 Mechanical Ventilator 100 12/17/19 04:00 100/56 12/17/19 04:00 100 12/17/19 03:45 96 21 104/61 (75) 100 12/17/19 03:30 97 22 104/58 (73) 100 12/17/19 03:15 95 22 102/57 (72) 100 12/17/19 03:00 93 22 101/56 (71) 100 12/17/19 03:00 22 Mechanical Ventilator 100 12/17/19 03:00 22 Mechanical Ventilator 100 12/17/19 03:00 101/56 12/17/19 02:38 97 26 100 12/17/19 02:30 92 21 101/53 (69) 100 12/17/19 02:00 21 Mechanical Ventilator 100 12/17/19 02:00 21 Mechanical Ventilator 100 12/17/19 02:00 100/55 12/17/19 02:00 90 21 100/55 (70) 100 12/17/19 01:30 86 22 102/58 (73) 100 12/17/19 01:00 86 25 107/60 (76) 100 12/17/19 01:00 25 Mechanical Ventilator 100 12/17/19 01:00 25 Endotracheal Tube 100 12/17/19 01:00 107/60 12/17/19 00:46 88 25 100 12/17/19 00:30 86 23 109/61 (77) 100 12/17/19 00:23 22 Mechanical Ventilator 100 12/17/19 00:00 92 12/17/19 00:00 97.5 86 21 118/62 (80) 100 12/17/19 00:00 22 Mechanical Ventilator 100 12/17/19 00:00 22 Mechanical Ventilator 100 12/17/19 00:00 118/62 12/17/19 00:00 100 12/17/19 00:00 Mechanical Ventilator 12/16/19 23:30 92 27 118/62 (80) 100 12/16/19 23:00 92 24 129/65 (86) 100 12/16/19 23:00 24 100 12/16/19 23:00 24 Mechanical Ventilator 100 12/16/19 23:00 129/64 12/16/19 22:35 94 27 100 12/16/19 22:30 93 26 133/66 (88) 100 12/16/19 22:30 133/66 12/16/19 22:00 26 Mechanical Ventilator 100 12/16/19 22:00 26 Mechanical Ventilator 100 12/16/19 22:00 154/67 12/16/19 22:00 95 26 154/67 (96) 100 12/16/19 21:30 86 25 133/62 (85) 100 12/16/19 21:17 97 34 100 12/16/19 21:00 16 Mechanical Ventilator 100 12/16/19 21:00 16 Mechanical Ventilator 100 12/16/19 21:00 129/65 12/16/19 21:00 85 16 129/65 (86) 100 12/16/19 20:30 87 24 119/54 (75) 98 12/16/19 20:00 Mechanical Ventilator 12/16/19 20:00 28 Mechanical Ventilator 100 12/16/19 20:00 28 Mechanical Ventilator 40 12/16/19 20:00 129/63 12/16/19 20:00 104 12/16/19 20:00 99.8 100 28 129/63 (85) 100 12/16/19 20:00 100 12/16/19 19:38 91 32 100 12/16/19 19:30 106 28 122/58 (79) 100 12/16/19 19:00 30 Endotracheal Tube 100 12/16/19 19:00 30 Endotracheal Tube 100 12/16/19 19:00 122/58 12/16/19 19:00 116 30 122/58 (79) 98 12/16/19 18:30 117 28 115/61 (79) 99 12/16/19 18:15 110 28 118/55 (76) 100 5/4/20 18:00 26 Endotracheal Tube 100 20 18:00 26 Endotracheal Tube 100 12/16/19 18:00 118/55 20 18:00 114 26 106/60 (75) 99 20 17:30 100.4 115 28 97/51 (66) 100 12/16/19 17:00 116 28 102/60 (74) 100 12/16/19 17:00 Endotracheal Tube 100 12/16/19 17:00 28 Endotracheal Tube 100 12/16/19 17:00 100.4 12/16/19 17:00 102/60 12/16/19 16:45 117 27 99/61 (74) 100 12/16/19 16:30 26 Endotracheal Tube 100 12/16/19 16:30 111 26 114/63 (80) 100 12/16/19 16:15 110 27 115/63 (80) 100 12/16/19 16:00 Mechanical Ventilator 12/16/19 16:00 27 Endotracheal Tube 100 12/16/19 16:00 27 Endotracheal Tube 100 12/16/19 16:00 117/63 12/16/19 16:00 100.5 114 27 117/63 (81) 100 12/16/19 15:45 113 27 117/59 (78) 100 12/16/19 15:30 112 26 112/62 (79) 100 12/16/19 15:30 26 Endotracheal Tube 100 12/16/19 15:23 109 12/16/19 15:02 113 25 100 12/16/19 15:00 110 25 106/62 (77) 100 12/16/19 15:00 25 Endotracheal Tube 100 12/16/19 15:00 25 Endotracheal Tube 100 12/16/19 15:00 106/62 12/16/19 14:30 106 25 111/60 (77) 100 20 14:15 105 24 118/62 (80) 100 12/16/19 14:00 25 Endotracheal Tube 100 12/16/19 14:00 25 Endotracheal Tube 100 20 14:00 112/66 12/16/19 14:00 106 25 112/66 (81) 100 12/16/19 14:00 100 12/16/19 13:45 107 26 105/58 (74) 99 12/16/19 13:30 100 24 99/63 (75) 100 12/16/19 13:23 25 Endotracheal Tube 15.0 100 12/16/19 13:00 106 25 125/63 (83) 100 12/16/19 13:00 25 Endotracheal Tube 100 12/16/19 13:00 125/63 12/16/19 12:30 102 23 127/63 (84) 100 12/16/19 12:00 Mechanical Ventilator 12/16/19 12:00 100 12/16/19 12:00 99.8 106 24 120/59 (79) 100 12/16/19 12:00 125/57 12/16/19 11:33 104 Intake and Output 12/16/19 12/17/19 19:00 07:00 Intake Total 1318.32 ml 974.546 ml Output Total 2140 ml 415 ml Balance -821.68 ml 559.546 ml Free Water 500 ml IV Total 398.32 ml 554.546 ml Tube Feeding 420 ml 420 ml Output Urine Total 40 ml 15 ml Stool Total 100 ml 400 ml Hemodialysis UF 2000 ml Laboratory Tests Test 12/16/19 11:36 12/17/19 06:55 Arterial Blood pH 7.226 (7.350-7.450) Arterial Blood Partial Pressure CO2 80.7 mmHg (35.0-45.0) *H Arterial Blood Partial Pressure O2 114.6 mmHg (75.0-100.0) H Arterial Blood HCO3 32.7 mmol/L (22.0-26.0) H Arterial Blood Oxygen Saturation 97.4 % (95-100) Arterial Blood Base Excess 3.3 (-2-2) H Melecio Test Positive White Blood Count 27.4 K/UL (4.8-10.8) *H Red Blood Count 3.38 M/UL (4.70-6.10) L Hemoglobin 10.3 G/DL (14.2-18.0) L Hematocrit 31.6 % (42.0-52.0) L Mean Corpuscular Volume 94 FL (80-99) Mean Corpuscular Hemoglobin 30.5 PG (27.0-31.0) Mean Corpuscular Hemoglobin Concent 32.5 G/DL (32.0-36.0) Red Cell Distribution Width 14.2 % (11.6-14.8) Platelet Count 179 K/UL (150-450) Mean Platelet Volume 7.4 FL (6.5-10.1) Neutrophils (%) (Auto) % (45.0-75.0) Lymphocytes (%) (Auto) % (20.0-45.0) Monocytes (%) (Auto) % (1.0-10.0) Eosinophils (%) (Auto) % (0.0-3.0) Basophils (%) (Auto) % (0.0-2.0) Differential Total Cells Counted 100 Neutrophils % (Manual) 88 % (45-75) H Lymphocytes % (Manual) 6 % (20-45) L Monocytes % (Manual) 6 % (1-10) Eosinophils % (Manual) 0 % (0-3) Basophils % (Manual) 0 % (0-2) Band Neutrophils 0 % (0-8) Platelet Estimate Adequate Platelet Morphology Normal Hypochromasia 1+ Anisocytosis 1+ Sodium Level 142 MMOL/L (136-145) Potassium Level 4.2 MMOL/L (3.5-5.1) Chloride Level 105 MMOL/L (98-107) Carbon Dioxide Level 30 MMOL/L (21-32) Anion Gap 7 mmol/L (5-15) Blood Urea Nitrogen 82 mg/dL (7-18) H Creatinine 3.9 MG/DL (0.55-1.30) H Estimat Glomerular Filtration Rate 16.0 mL/min (>60) Glucose Level 123 MG/DL (74-106) H Calcium Level 10.2 MG/DL (8.5-10.1) H Total Bilirubin 0.7 MG/DL (0.2-1.0) Aspartate Amino Transf (AST/SGOT) 40 U/L (15-37) H Alanine Aminotransferase (ALT/SGPT) 53 U/L (12-78) Alkaline Phosphatase 235 U/L (46-116) H Total Protein 6.0 G/DL (6.4-8.2) L Albumin 2.6 G/DL (3.4-5.0) L Globulin 3.4 g/dL Albumin/Globulin Ratio 0.8 (1.0-2.7) L Random Vancomycin Level 11.6 ug/mL Microbiology Date/Time Source Procedure Growth Status 12/16/19 16:00 Sputum Gram Stain - Final Resulted 12/16/19 16:00 Sputum Sputum Culture - Preliminary NO GROWTH Resulted Objective HEAD AND NECK: Orally intubated No JVD LUNGS: Decreased breath sounds. Coarse rhonchi. CARDIOVASCULAR: Tachycardic S1 and S2 with no gallop. ABDOMEN: Soft. EXTREMITIES: 1 plus pitting edema. RFV [place] in place Raul Appiah MD December 17, 2019 11:34
--- NOTE | 2019-12-17 12:02 | NUR ---
ULTRASOUND - Regarding abdominal u/s. Discussed w/Dr. Rdz. Current order will be cancelled for reorder when pt is off isolation 12:03 hrs. MNK.
--- NOTE | 2019-12-17 12:24 | General Progress Note ---
Assessment/Plan Status: unchanged Assessment/Plan: 59-year-old male with PMH of HTN presents with acute respiratory distress. #Acute Hypoxic Respiratory Failure s/p intubation #Respiratory Acidosis #Severe sepsis/ septic shock #COVID19 positive #CAP #elevated d-dimer #Fevers - improved -Appreciate ICU level of care -s/p Intubation 12/03 -vent management per Pulm/ICU/CCM team -cont. droplet & isolation precautions -Transaminitis/d-dimer/fluctuating fevers likely reactive/ 2/2 COVID -sedation per pulm/ICU -s/p hydroxychloroquine -s/p actrema -s/p Vanc (12/09-12/15), cefepime (12/09-12/15), flagyl (12/09-12/15) -cont. pressure support -midodrine TID -prone position per Pulm -Pulm following, recs appreciated -ID, Dr. Rodriguez, following: on fluconazole (12/15-12/22), Merrem (12/15-12/20) -SCx NGTD 24 hrs, f/u BCx #loose stools -c diff negative -d/c PO vanco -immodium PRN #Pneumomediastinum #Subcutaneous emphysema -seen on abd XR -pt too high risk for bedside thoracostomy -d/w general sx and pulm/ICU #ALBARO #Hypernatremia - resolved #Hyperkalemia - resolved -likely 2/2 to above, COVID -s/p kayexalate, insulin, D5 for hyperkalemia -cont. to [facility] -12/04: femoral HD cath placed -d/w Nephro, Dr. Soriano: HD per nephro #Transaminitis - downtrending #Shock Liver -improved -likely 2/2 to above/COVID -LFTs improving, ctm -abd us when off isolation -cont. NGT feeds -GI, Dr. Rdz, following, recs appreciated #Sinus Tachycardia 2/2 respiratory failure #HTN -hydralazine PRN -Cardio, , following: Echo after COVID negative DVT PPX: Lovenox Pt is at high risk of rapid decompensation and requires continued ICU level of care Prognosis grave/poor Time spent on encounter: 65 mins, 32 mins spent on critical care time. Critical Care Services performed include: Telemetry Review Hemodynamic measurement interpretation Laboratory data review and interpretation Radiology image review and interpretation Interpretation of ABG's Discussion of patient's care with ICU team, Nursing staff and/or consulting services, ID, Dr Rodriguez, Dr. Soriano, Dr. Appiah. Time of note doesn't reflect time of encounter. Subjective Allergies: Coded Allergies: No Known Allergies (Unverified , 11/29/19) Subjective Follow up for acute hypoxic resp failure, COVID19 positive, intubation/sedated, multi-organ failure. Remains intubated on 100% FiO2, sedated on pressure support Levo 3. WBC remains elevated. Plan for HD again today. Unable to obtain ROS due to clinical picture. Objective Last 24 Hour Vital Signs Date Time Temp Pulse Resp B/P (MAP) Pulse Ox O2 Delivery O2 Flow Rate FiO2 12/17/19 11:30 111 31 109/56 (73) 100 12/17/19 11:07 106 30 100 12/17/19 11:00 107 28 98/53 (68) 100 12/17/19 10:50 29 Endotracheal Tube 15.0 100 12/17/19 10:30 100 30 115/64 (81) 100 12/17/19 10:00 93 29 109/66 (80) 100 12/17/19 10:00 29 Endotracheal Tube 100 12/17/19 09:30 89 27 113/62 (79) 100 12/17/19 09:00 88 27 117/64 (81) 100 12/17/19 09:00 27 Endotracheal Tube 100 12/17/19 08:30 87 26 115/67 (83) 100 12/17/19 08:00 97.9 85 26 127/63 (84) 100 12/17/19 08:00 26 Endotracheal Tube 100 12/17/19 08:00 100 12/17/19 08:00 Mechanical Ventilator 12/17/19 07:57 85 12/17/19 07:30 88 25 130/62 (84) 100 12/17/19 07:11 86 25 100 12/17/19 07:00 25 Mechanical Ventilator 100 12/17/19 07:00 25 Mechanical Ventilator 40 12/17/19 07:00 127/63 12/17/19 07:00 88 25 127/63 (84) 100 12/17/19 06:30 89 25 137/69 (91) 100 12/17/19 06:00 95 27 126/68 (87) 96 12/17/19 05:30 98 26 118/67 (84) 95 12/17/19 05:11 96 27 100 12/17/19 05:00 95 26 135/63 (87) 97 12/17/19 05:00 26 Mechanical Ventilator 40 12/17/19 05:00 26 Mechanical Ventilator 40 12/17/19 05:00 135/63 12/17/19 04:42 106/65 12/17/19 04:30 97 22 106/65 (79) 97 12/17/19 04:00 98 12/17/19 04:00 Mechanical Ventilator 12/17/19 04:00 98.2 97 22 100/56 (71) 100 12/17/19 04:00 20 Mechanical Ventilator 100 12/17/19 04:00 20 Mechanical Ventilator 100 12/17/19 04:00 100/56 12/17/19 04:00 100 12/17/19 03:45 96 21 104/61 (75) 100 12/17/19 03:30 97 22 104/58 (73) 100 12/17/19 03:15 95 22 102/57 (72) 100 12/17/19 03:00 93 22 101/56 (71) 100 12/17/19 03:00 22 Mechanical Ventilator 100 12/17/19 03:00 22 Mechanical Ventilator 100 12/17/19 03:00 101/56 12/17/19 02:38 97 26 100 12/17/19 02:30 92 21 101/53 (69) 100 12/17/19 02:00 21 Mechanical Ventilator 100 12/17/19 02:00 21 Mechanical Ventilator 100 12/17/19 02:00 100/55 12/17/19 02:00 90 21 100/55 (70) 100 12/17/19 01:30 86 22 102/58 (73) 100 12/17/19 01:00 86 25 107/60 (76) 100 12/17/19 01:00 25 Mechanical Ventilator 100 12/17/19 01:00 25 Endotracheal Tube 100 12/17/19 01:00 107/60 12/17/19 00:46 88 25 100 12/17/19 00:30 86 23 109/61 (77) 100 12/17/19 00:23 22 Mechanical Ventilator 100 12/17/19 00:00 92 12/17/19 00:00 97.5 86 21 118/62 (80) 100 12/17/19 00:00 22 Mechanical Ventilator 100 12/17/19 00:00 22 Mechanical Ventilator 100 12/17/19 00:00 118/62 12/17/19 00:00 100 12/17/19 00:00 Mechanical Ventilator 12/16/19 23:30 92 27 118/62 (80) 100 12/16/19 23:00 92 24 129/65 (86) 100 12/16/19 23:00 24 100 12/16/19 23:00 24 Mechanical Ventilator 100 12/16/19 23:00 129/64 12/16/19 22:35 94 27 100 12/16/19 22:30 93 26 133/66 (88) 100 12/16/19 22:30 133/66 12/16/19 22:00 26 Mechanical Ventilator 100 12/16/19 22:00 26 Mechanical Ventilator 100 12/16/19 22:00 154/67 12/16/19 22:00 95 26 154/67 (96) 100 12/16/19 21:30 86 25 133/62 (85) 100 12/16/19 21:17 97 34 100 12/16/19 21:00 16 Mechanical Ventilator 100 12/16/19 21:00 16 Mechanical Ventilator 100 12/16/19 21:00 129/65 12/16/19 21:00 85 16 129/65 (86) 100 12/16/19 20:30 87 24 119/54 (75) 98 12/16/19 20:00 Mechanical Ventilator 12/16/19 20:00 28 Mechanical Ventilator 100 12/16/19 20:00 28 Mechanical Ventilator 40 12/16/19 20:00 129/63 20 20:00 104 12/16/19 20:00 99.8 100 28 129/63 (85) 100 12/16/19 20:00 100 12/16/19 19:38 91 32 100 12/16/19 19:30 106 28 122/58 (79) 100 12/16/19 19:00 30 Endotracheal Tube 100 12/16/19 19:00 30 Endotracheal Tube 100 5/4/20 19:00 122/58 520 19:00 116 30 122/58 (79) 98 20 18:30 117 28 115/61 (79) 99 20 18:15 110 28 118/55 (76) 100 20 18:00 26 Endotracheal Tube 100 20 18:00 26 Endotracheal Tube 100 20 18:00 118/55 520 18:00 114 26 106/60 (75) 99 20 17:30 100.4 115 28 97/51 (66) 100 20 17:00 116 28 102/60 (74) 100 12/16/19 17:00 Endotracheal Tube 100 12/16/19 17:00 28 Endotracheal Tube 100 12/16/19 17:00 100.4 12/16/19 17:00 102/60 12/16/19 16:45 117 27 99/61 (74) 100 12/16/19 16:30 26 Endotracheal Tube 100 12/16/19 16:30 111 26 114/63 (80) 100 12/16/19 16:15 110 27 115/63 (80) 100 12/16/19 16:00 Mechanical Ventilator 12/16/19 16:00 27 Endotracheal Tube 100 12/16/19 16:00 27 Endotracheal Tube 100 12/16/19 16:00 117/63 12/16/19 16:00 100.5 114 27 117/63 (81) 100 12/16/19 15:45 113 27 117/59 (78) 100 12/16/19 15:30 112 26 112/62 (79) 100 12/16/19 15:30 26 Endotracheal Tube 100 12/16/19 15:23 109 12/16/19 15:02 113 25 100 12/16/19 15:00 110 25 106/62 (77) 100 20 15:00 25 Endotracheal Tube 100 12/16/19 15:00 25 Endotracheal Tube 100 20 15:00 106/62 520 14:30 106 25 111/60 (77) 100 20 14:15 105 24 118/62 (80) 100 20 14:00 25 Endotracheal Tube 100 12/16/19 14:00 25 Endotracheal Tube 100 5/4/20 14:00 112/66 12/16/19 14:00 106 25 112/66 (81) 100 12/16/19 14:00 100 12/16/19 13:45 107 26 105/58 (74) 99 12/16/19 13:30 100 24 99/63 (75) 100 12/16/19 13:23 25 Endotracheal Tube 15.0 100 12/16/19 13:00 106 25 125/63 (83) 100 12/16/19 13:00 25 Endotracheal Tube 100 12/16/19 13:00 125/63 12/16/19 12:30 102 23 127/63 (84) 100 Intake and Output 12/16/19 12/17/19 19:00 07:00 Intake Total 1318.32 ml 974.546 ml Output Total 2140 ml 415 ml Balance -821.68 ml 559.546 ml Free Water 500 ml IV Total 398.32 ml 554.546 ml Tube Feeding 420 ml 420 ml Output Urine Total 40 ml 15 ml Stool Total 100 ml 400 ml Hemodialysis UF 2000 ml Laboratory Tests 12/17/19 06:55: White Blood Count 27.4*H, Red Blood Count 3.38L, Hemoglobin 10.3L, Hematocrit 31.6L, Mean Corpuscular Volume 94, Mean Corpuscular Hemoglobin 30.5, Mean Corpuscular Hemoglobin Concent 32.5, Red Cell Distribution Width 14.2, Platelet Count 179, Mean Platelet Volume 7.4, Neutrophils (%) (Auto) , Lymphocytes (%) ( Auto) , Monocytes (%) (Auto) , Eosinophils (%) (Auto) , Basophils (%) (Auto) , Differential Total Cells Counted 100, Neutrophils % (Manual) 88H, Lymphocytes % (Manual) 6L, Monocytes % (Manual) 6, Eosinophils % (Manual) 0, Basophils % ( Manual) 0, Band Neutrophils 0, Platelet Estimate Adequate, Platelet Morphology Normal, Hypochromasia 1+, Anisocytosis 1+, Sodium Level 142, Potassium Level 4.2 , Chloride Level 105, Carbon Dioxide Level 30, Anion Gap 7, Blood Urea Nitrogen 82H, Creatinine 3.9H, Estimat Glomerular Filtration Rate 16.0, Glucose Level 123H, Calcium Level 10.2H, Total Bilirubin 0.7, Aspartate Amino Transf (AST/SGOT ) 40H, Alanine Aminotransferase (ALT/SGPT) 53, Alkaline Phosphatase 235H, Total Protein 6.0L, Albumin 2.6L, Globulin 3.4, Albumin/Globulin Ratio 0.8L, Random Vancomycin Level 11.6 Height (Feet): 5 Height (Inches): 6.00 Weight (Pounds): 161 Objective General Appearance: intubated, OG tube in place, in prone position Cardiovascular: sinus tach on tele Respiratory/Chest: ETT in place, equal rise in lungs b/l Abdomen: non distended Ext: no edema noted Theodore Aguayo M.D. December 17, 2019 12:24
--- NOTE | 2019-12-17 13:11 | NUR ---
NURSE NOTES: Patient is resting in bed, no signs of acute distress, patient is afebrile.
--- NOTE | 2019-12-17 16:02 | NUR ---
CASE MANAGEMENT: REVIEW SI: COVID-19 . BILATERAL PNA . INTUBATED RIGHT FEMORAL TEMP HD CATH PLACEMENT 12/04 T 97.6 HR 111 RR 31 BP 98/53 SAT 100% MECH VENT FIO2 100 WBC 27.4 H/H 10.3/31.6 BUN 82 CR 3.9 IS: LEVOPHED IV Q24HR FENTANYL IV Q24HR DIFLUCAN IV Q24HR MEROPENEM IV Q24HR MIDODRINE 10MG THREE TIMES PER DAY HD PRN NGT FEEDING ICU STATUS DCP: PATIENT IS FROM HOME
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
--- NOTE | 2019-12-17 17:02 | Pulmonology Progress Note ---
Assessment/Plan Assessment/Plan IMPRESSION: 1. Bilateral pneumonia. 2. Positive COVID-19. 3. Respiratory failure. DISCUSSION: Intubated On AC 20; FiO2 100; PEEP 5; SaO2 99% Abd Xray shows mediastinal PTX Recent CXR 12/06; no PTX or pneumomediastinum seen Repeat CXR today again shows mediastinal PTX Hold proning On Fentanyl due to high triglycerides Hold further proning Saturations are better Grave prognosis I will follow carefully. On HD now S/p Actemra Blood CS ? contaminant Needs ongoing HD; more ultrafiltration Urine CS negative Will decrease PEEP to 5 Sushil Cortes M.D. Subjective ROS Limited/Unobtainable: No Interval Events: Intubated ;proning on hold due to facial decubitus Constitutional: Reports: fever, other - on vent and pressors HEENT: Repors: no symptoms Respiratory: Reports: no symptoms Cardiovascular: Reports: no symptoms Gastrointestinal/Abdominal: Denies: nausea, vomiting, diarrhea Genitourinary: Reports: no symptoms Psychiatric: Reports: other - NA Skin: Denies: rash Musculoskeletal: Reports: other - NA Allergies: Coded Allergies: No Known Allergies (Unverified , 11/29/19) All Systems: reviewed and negative except above Objective Last 24 Hour Vital Signs Date Time Temp Pulse Resp B/P (MAP) Pulse Ox O2 Delivery O2 Flow Rate FiO2 12/17/19 16:53 28 Mechanical Ventilator 15.0 100 12/17/19 16:30 96 28 107/57 (74) 100 12/17/19 16:00 97.8 96 27 116/53 (74) 100 12/17/19 16:00 97 12/17/19 16:00 Mechanical Ventilator 12/17/19 16:00 100 12/17/19 15:30 95 26 110/59 (76) 100 12/17/19 15:00 94 20 113/54 (73) 100 12/17/19 14:30 93 14 114/54 (74) 100 12/17/19 14:00 90 12 113/56 (75) 100 12/17/19 14:00 12 Endotracheal Tube 100 5/5/20 14:00 12 Endotracheal Tube 100 5/5/20 14:00 110/61 5/5/20 13:30 89 23 112/58 (76) 100 5/5/20 13:00 90 22 118/60 (79) 100 5/5/20 13:00 22 Endotracheal Tube 100 5/5/20 13:00 23 Endotracheal Tube 100 5/5/20 13:00 113/54 5//20 12:30 93 23 114/61 (78) 100 5//20 12:30 96 27 114/57 (76) 100 5//20 12:00 100 5/5/20 12:00 93 5/5/20 12:00 Mechanical Ventilator 12/17/19 12:00 28 Endotracheal Tube 100 520 12:00 28 Endotracheal Tube 100 20 12:00 115/59 520 12:00 97.6 102 28 108/57 (74) 100 5//20 12:00 97 26 115/59 (77) 100 5/20 11:30 111 31 109/56 (73) 100 5/20 11:28 111 5/20 11:07 106 30 100 5//20 11:00 107 28 98/53 (68) 100 5//20 11:00 28 Endotracheal Tube 100 520 11:00 28 Endotracheal Tube 100 520 11:00 107/56 5/20 10:50 29 Endotracheal Tube 15.0 100 5//20 10:49 Endotracheal Tube 100 5/5/20 10:30 100 30 115/64 (81) 100 5/5/20 10:00 93 29 109/66 (80) 100 5/5/20 10:00 29 Endotracheal Tube 100 5/5/20 10:00 29 Endotracheal Tube 100 5/5/20 10:00 109/66 5/5/20 09:30 89 27 113/62 (79) 100 5/5/20 09:00 88 27 117/64 (81) 100 5/5/20 09:00 27 Endotracheal Tube 100 5/5/20 09:00 27 Endotracheal Tube 100 5/5/20 09:00 117/64 5/5/20 08:30 87 26 115/67 (83) 100 5/20 08:00 97.9 85 26 127/63 (84) 100 12/17/19 08:00 26 Endotracheal Tube 100 12/17/19 08:00 26 Endotracheal Tube 100 12/17/19 08:00 127/63 12/17/19 08:00 100 12/17/19 08:00 Mechanical Ventilator 12/17/19 07:57 85 12/17/19 07:30 88 25 130/62 (84) 100 12/17/19 07:11 86 25 100 12/17/19 07:00 25 Mechanical Ventilator 100 12/17/19 07:00 25 Mechanical Ventilator 40 12/17/19 07:00 127/63 12/17/19 07:00 88 25 127/63 (84) 100 12/17/19 06:30 89 25 137/69 (91) 100 12/17/19 06:00 95 27 126/68 (87) 96 12/17/19 05:30 98 26 118/67 (84) 95 12/17/19 05:11 96 27 100 12/17/19 05:00 95 26 135/63 (87) 97 12/17/19 05:00 26 Mechanical Ventilator 40 12/17/19 05:00 26 Mechanical Ventilator 40 12/17/19 05:00 135/63 12/17/19 04:42 106/65 12/17/19 04:30 97 22 106/65 (79) 97 12/17/19 04:00 98 12/17/19 04:00 Mechanical Ventilator 12/17/19 04:00 98.2 97 22 100/56 (71) 100 12/17/19 04:00 20 Mechanical Ventilator 100 12/17/19 04:00 20 Mechanical Ventilator 100 12/17/19 04:00 100/56 12/17/19 04:00 100 12/17/19 03:45 96 21 104/61 (75) 100 12/17/19 03:30 97 22 104/58 (73) 100 12/17/19 03:15 95 22 102/57 (72) 100 12/17/19 03:00 93 22 101/56 (71) 100 12/17/19 03:00 22 Mechanical Ventilator 100 12/17/19 03:00 22 Mechanical Ventilator 100 12/17/19 03:00 101/56 12/17/19 02:38 97 26 100 5/5/20 02:30 92 21 101/53 (69) 100 12/17/19 02:00 21 Mechanical Ventilator 100 12/17/19 02:00 21 Mechanical Ventilator 100 12/17/19 02:00 100/55 12/17/19 02:00 90 21 100/55 (70) 100 12/17/19 01:30 86 22 102/58 (73) 100 12/17/19 01:00 86 25 107/60 (76) 100 12/17/19 01:00 25 Mechanical Ventilator 100 12/17/19 01:00 25 Endotracheal Tube 100 12/17/19 01:00 107/60 12/17/19 00:46 88 25 100 12/17/19 00:30 86 23 109/61 (77) 100 12/17/19 00:23 22 Mechanical Ventilator 100 12/17/19 00:00 92 12/17/19 00:00 97.5 86 21 118/62 (80) 100 12/17/19 00:00 22 Mechanical Ventilator 100 12/17/19 00:00 22 Mechanical Ventilator 100 12/17/19 00:00 118/62 12/17/19 00:00 100 12/17/19 00:00 Mechanical Ventilator 12/16/19 23:30 92 27 118/62 (80) 100 12/16/19 23:00 92 24 129/65 (86) 100 12/16/19 23:00 24 100 12/16/19 23:00 24 Mechanical Ventilator 100 12/16/19 23:00 129/64 12/16/19 22:35 94 27 100 12/16/19 22:30 93 26 133/66 (88) 100 12/16/19 22:30 133/66 12/16/19 22:00 26 Mechanical Ventilator 100 12/16/19 22:00 26 Mechanical Ventilator 100 12/16/19 22:00 154/67 12/16/19 22:00 95 26 154/67 (96) 100 12/16/19 21:30 86 25 133/62 (85) 100 12/16/19 21:17 97 34 100 12/16/19 21:00 16 Mechanical Ventilator 100 12/16/19 21:00 16 Mechanical Ventilator 100 12/16/19 21:00 129/65 12/16/19 21:00 85 16 129/65 (86) 100 12/16/19 20:30 87 24 119/54 (75) 98 12/16/19 20:00 Mechanical Ventilator 12/16/19 20:00 28 Mechanical Ventilator 100 12/16/19 20:00 28 Mechanical Ventilator 40 12/16/19 20:00 129/63 12/16/19 20:00 104 12/16/19 20:00 99.8 100 28 129/63 (85) 100 12/16/19 20:00 100 12/16/19 19:38 91 32 100 12/16/19 19:30 106 28 122/58 (79) 100 12/16/19 19:00 30 Endotracheal Tube 100 12/16/19 19:00 30 Endotracheal Tube 100 12/16/19 19:00 122/58 12/16/19 19:00 116 30 122/58 (79) 98 12/16/19 18:30 117 28 115/61 (79) 99 12/16/19 18:15 110 28 118/55 (76) 100 12/16/19 18:00 26 Endotracheal Tube 100 12/16/19 18:00 26 Endotracheal Tube 100 12/16/19 18:00 118/55 12/16/19 18:00 114 26 106/60 (75) 99 12/16/19 17:30 100.4 115 28 97/51 (66) 100 Intake and Output 12/16/19 12/17/19 19:00 07:00 Intake Total 1318.32 ml 974.546 ml Output Total 2140 ml 415 ml Balance -821.68 ml 559.546 ml Free Water 500 ml IV Total 398.32 ml 554.546 ml Tube Feeding 420 ml 420 ml Output Urine Total 40 ml 15 ml Stool Total 100 ml 400 ml Hemodialysis UF 2000 ml General Appearance: no acute distress HEENT: normocephalic, atraumatic, other - oral - intubated Respiratory/Chest: chest wall non-tender, lungs clear Cardiovascular: normal peripheral pulses, normal rate Abdomen: normal bowel sounds, soft, non tender, no organomegaly, non distended Genitourinary: other - + barnes Extremities: no cyanosis Skin: no rash Neurologic/Psychiatric: other - lethargic, weak Lymphatic: no neck adenopathy Musculoskeletal: no effusion Microbiology Date/Time Source Procedure Growth Status 12/16/19 16:00 Sputum Gram Stain - Final Resulted 12/16/19 16:00 Sputum Sputum Culture - Preliminary NO GROWTH Resulted Laboratory Tests 12/17/19 06:55: White Blood Count 27.4*H, Red Blood Count 3.38L, Hemoglobin 10.3L, Hematocrit 31.6L, Mean Corpuscular Volume 94, Mean Corpuscular Hemoglobin 30.5, Mean Corpuscular Hemoglobin Concent 32.5, Red Cell Distribution Width 14.2, Platelet Count 179, Mean Platelet Volume 7.4, Neutrophils (%) (Auto) , Lymphocytes (%) ( Auto) , Monocytes (%) (Auto) , Eosinophils (%) (Auto) , Basophils (%) (Auto) , Differential Total Cells Counted 100, Neutrophils % (Manual) 88H, Lymphocytes % (Manual) 6L, Monocytes % (Manual) 6, Eosinophils % (Manual) 0, Basophils % ( Manual) 0, Band Neutrophils 0, Platelet Estimate Adequate, Platelet Morphology Normal, Hypochromasia 1+, Anisocytosis 1+, Sodium Level 142, Potassium Level 4.2 , Chloride Level 105, Carbon Dioxide Level 30, Anion Gap 7, Blood Urea Nitrogen 82H, Creatinine 3.9H, Estimat Glomerular Filtration Rate 16.0, Glucose Level 123H, Calcium Level 10.2H, Total Bilirubin 0.7, Aspartate Amino Transf (AST/SGOT ) 40H, Alanine Aminotransferase (ALT/SGPT) 53, Alkaline Phosphatase 235H, Total Protein 6.0L, Albumin 2.6L, Globulin 3.4, Albumin/Globulin Ratio 0.8L, Random Vancomycin Level 11.6 Current Medications Medications (Trade) Dose Ordered Sig/Vicki Route PRN Reason Start Time Stop Time Status Last Admin Dose Admin Acetaminophen (Tylenol) 650 mg Q4H PRN NG Temp >100.5 12/06/19 14:15 01/05/20 14:14 12/16/19 16:30 Acetaminophen (Tylenol) 650 mg Q4H PRN RECTAL Mild Pain (Pain Scale 1-3) 12/04/19 11:45 01/03/20 11:44 12/06/19 19:17 Chlorhexidine Gluconate (Arely-Hex 2%) 1 applic DAILY@1999 TOPIC 12/05/19 20:00 03/04/20 19:59 12/16/19 20:57 Dextrose (Dextrose 50%) 25 ml Q30M PRN IV Hypoglycemia 11/29/19 14:15 02/27/20 14:14 Dextrose (Dextrose 50%) 50 ml Q30M PRN IV Hypoglycemia 11/29/19 14:15 02/27/20 14:14 Fentanyl Citrate 2500 mcg/Sodium Chloride 250 ml @ 0 mls/hr Q24H IV 12/13/19 00:00 12/20/19 00:00 12/17/19 16:53 Fluconazole/ Sodium Chloride 100 ml @ 100 mls/hr Q24H IV 12/16/19 22:00 12/23/19 21:59 12/16/19 22:10 Folic Acid (Folate) 1 mg DAILY NG 12/18/19 09:00 01/17/20 08:59 Hydralazine HCl (Apresoline) 10 mg Q4H PRN IV For High Blood Pressure 11/29/19 15:15 02/27/20 15:14 Loperamide HCl (Imodium) 2 mg Q6H PRN NG Diarrhea 12/12/19 12:45 01/11/20 12:44 Meropenem 500 mg/ Sodium Chloride 50 ml @ 100 mls/hr Q24HRS IVPB 12/16/19 21:30 12/21/19 21:29 12/16/19 21:31 Midazolam HCl 100 ml @ 0 mls/hr Q24H PRN IV Restlessness 12/16/19 10:45 03/15/20 10:44 12/17/19 10:50 Midodrine (Pro-Amatine) 10 mg THREE TIMES A DAY ORAL 12/12/19 13:00 03/11/20 12:59 12/17/19 09:34 Norepinephrine Bitartrate 16 mg/ Dextrose 566 ml @ 0 mls/hr Q24H IV 12/06/19 09:00 01/05/20 08:59 12/17/19 04:42 Ondansetron HCl (Zofran) 4 mg Q6H PRN IVP Nausea & Vomiting 11/29/19 14:15 12/29/19 14:14 Pantoprazole (Protonix) 40 mg DAILY IVP 11/30/19 12:15 12/30/19 12:14 12/17/19 09:33 Potassium Chloride (K-Dur) 40 meq TWICE A DAY ORAL 12/11/19 09:30 03/10/20 09:29 12/17/19 09:34 Vancomycin HCl (Vanco rx to dose) 1 ea DAILY PRN MISC Per rx protocol 12/08/19 19:30 01/07/20 19:29 Vitamin B Complex/ Vit C/Folic Acid (Nephrovite) 1 tab DAILY NG 12/16/19 09:00 01/15/20 08:59 12/17/19 09:34 Sushil Cortes MD December 17, 2019 17:02
--- NOTE | 2019-12-17 17:34 | NUR ---
NURSE NOTES: Bed bath given to patient, turned and repositioned, oral care given. Oral and tracheal suctioning done, bloody sputum excreted. No signs of acute distress, patient is afebrile 97.8 degrees Fahrenheit via rectal temperature.
--- NOTE | 2019-12-17 19:17 | NUR ---
HAND-OFF: Report given to Angel LACKEY.
--- NOTE | 2019-12-17 19:47 | Urology Progress Note ---
Assessment/Plan Status: unchanged Assessment/Plan: 1. Phimosis. 2. Retention. 3. Hematuria. 4. Pyuria. 5. Proteinuria. 6. Acute kidney injury. 7. Meatal stenosis. monitor clinically maintain barnes, placed 12/04 hand irrigate PRN monitor urine output and renal fxn consider renal imaging abx as ordered HD per nephrology Subjective Allergies: Coded Allergies: No Known Allergies (Unverified , 11/29/19) Subjective remains on vent, still with minimal urine output, HD Objective Last 24 Hour Vital Signs Date Time Temp Pulse Resp B/P (MAP) Pulse Ox O2 Delivery O2 Flow Rate FiO2 12/17/19 19:00 103 30 111/55 (73) 100 12/17/19 19:00 30 Endotracheal Tube 100 12/17/19 19:00 30 Endotracheal Tube 100 12/17/19 19:00 111/55 12/17/19 18:30 102 30 112/58 (76) 100 12/17/19 18:00 100 31 113/54 (73) 99 12/17/19 18:00 30 Endotracheal Tube 100 12/17/19 18:00 30 Endotracheal Tube 100 12/17/19 18:00 111/62 12/17/19 17:30 100 29 89/73 (78) 99 12/17/19 17:00 33 Endotracheal Tube 100 12/17/19 17:00 33 Endotracheal Tube 100 12/17/19 17:00 89/73 12/17/19 17:00 104 27 115/63 (80) 100 12/17/19 17:00 100 29 89/73 (78) 99 12/17/19 16:53 28 Mechanical Ventilator 15.0 100 12/17/19 16:30 96 28 107/57 (74) 100 12/17/19 16:00 97.8 96 27 116/53 (74) 100 12/17/19 16:00 97 12/17/19 16:00 Mechanical Ventilator 12/17/19 16:00 27 Endotracheal Tube 100 12/17/19 16:00 27 Endotracheal Tube 100 12/17/19 16:00 110/58 12/17/19 16:00 100 12/17/19 15:30 95 26 110/59 (76) 100 12/17/19 15:07 95 24 100 12/17/19 15:00 94 20 113/54 (73) 100 5/5/20 15:00 20 Endotracheal Tube 100 5/5/20 15:00 20 Endotracheal Tube 100 5/5/20 15:00 113/54 5/5/20 14:30 93 14 114/54 (74) 100 5/5/20 14:00 90 12 113/56 (75) 100 5/5/20 14:00 12 Endotracheal Tube 100 5/5/20 14:00 12 Endotracheal Tube 100 5/5/20 14:00 110/61 5/5/20 13:30 89 23 112/58 (76) 100 5/5/20 13:00 90 22 118/60 (79) 100 5/5/20 13:00 22 Endotracheal Tube 100 5/5/20 13:00 23 Endotracheal Tube 100 5/5/20 13:00 113/54 5/20 12:30 93 23 114/61 (78) 100 5/5/20 12:30 96 27 114/57 (76) 100 5/5/20 12:00 100 5/5/20 12:00 93 5/5/20 12:00 Mechanical Ventilator 20 12:00 28 Endotracheal Tube 100 5/5/20 12:00 28 Endotracheal Tube 100 5/5/20 12:00 115/59 5/5/20 12:00 97.6 102 28 108/57 (74) 100 5/5/20 12:00 97 26 115/59 (77) 100 5/5/20 11:30 111 31 109/56 (73) 100 5/5/20 11:28 111 5/5/20 11:07 106 30 100 5/5/20 11:00 107 28 98/53 (68) 100 5/5/20 11:00 28 Endotracheal Tube 100 5/5/20 11:00 28 Endotracheal Tube 100 5/5/20 11:00 107/56 5/5/20 10:50 29 Endotracheal Tube 15.0 100 5/5/20 10:49 Endotracheal Tube 100 5/5/20 10:30 100 30 115/64 (81) 100 5/5/20 10:00 93 29 109/66 (80) 100 5/5/20 10:00 29 Endotracheal Tube 100 5/5/20 10:00 29 Endotracheal Tube 100 5/5/20 10:00 109/66 5/5/20 09:30 89 27 113/62 (79) 100 12/17/19 09:00 88 27 117/64 (81) 100 12/17/19 09:00 27 Endotracheal Tube 100 12/17/19 09:00 27 Endotracheal Tube 100 12/17/19 09:00 117/64 12/17/19 08:30 87 26 115/67 (83) 100 12/17/19 08:00 97.9 85 26 127/63 (84) 100 12/17/19 08:00 26 Endotracheal Tube 100 12/17/19 08:00 26 Endotracheal Tube 100 12/17/19 08:00 127/63 12/17/19 08:00 100 12/17/19 08:00 Mechanical Ventilator 12/17/19 07:57 85 12/17/19 07:30 88 25 130/62 (84) 100 12/17/19 07:11 86 25 100 12/17/19 07:00 25 Mechanical Ventilator 100 12/17/19 07:00 25 Mechanical Ventilator 40 12/17/19 07:00 127/63 12/17/19 07:00 88 25 127/63 (84) 100 12/17/19 06:30 89 25 137/69 (91) 100 12/17/19 06:00 95 27 126/68 (87) 96 12/17/19 05:30 98 26 118/67 (84) 95 12/17/19 05:11 96 27 100 12/17/19 05:00 95 26 135/63 (87) 97 12/17/19 05:00 26 Mechanical Ventilator 40 12/17/19 05:00 26 Mechanical Ventilator 40 12/17/19 05:00 135/63 12/17/19 04:42 106/65 12/17/19 04:30 97 22 106/65 (79) 97 12/17/19 04:00 98 12/17/19 04:00 Mechanical Ventilator 12/17/19 04:00 98.2 97 22 100/56 (71) 100 12/17/19 04:00 20 Mechanical Ventilator 100 12/17/19 04:00 20 Mechanical Ventilator 100 12/17/19 04:00 100/56 12/17/19 04:00 100 12/17/19 03:45 96 21 104/61 (75) 100 12/17/19 03:30 97 22 104/58 (73) 100 12/17/19 03:15 95 22 102/57 (72) 100 12/17/19 03:00 93 22 101/56 (71) 100 12/17/19 03:00 22 Mechanical Ventilator 100 12/17/19 03:00 22 Mechanical Ventilator 100 12/17/19 03:00 101/56 12/17/19 02:38 97 26 100 12/17/19 02:30 92 21 101/53 (69) 100 12/17/19 02:00 21 Mechanical Ventilator 100 12/17/19 02:00 21 Mechanical Ventilator 100 12/17/19 02:00 100/55 12/17/19 02:00 90 21 100/55 (70) 100 12/17/19 01:30 86 22 102/58 (73) 100 12/17/19 01:00 86 25 107/60 (76) 100 12/17/19 01:00 25 Mechanical Ventilator 100 12/17/19 01:00 25 Endotracheal Tube 100 12/17/19 01:00 107/60 12/17/19 00:46 88 25 100 12/17/19 00:30 86 23 109/61 (77) 100 12/17/19 00:23 22 Mechanical Ventilator 100 12/17/19 00:00 92 12/17/19 00:00 97.5 86 21 118/62 (80) 100 12/17/19 00:00 22 Mechanical Ventilator 100 12/17/19 00:00 22 Mechanical Ventilator 100 12/17/19 00:00 118/62 12/17/19 00:00 100 12/17/19 00:00 Mechanical Ventilator 12/16/19 23:30 92 27 118/62 (80) 100 12/16/19 23:00 92 24 129/65 (86) 100 12/16/19 23:00 24 100 12/16/19 23:00 24 Mechanical Ventilator 100 12/16/19 23:00 129/64 12/16/19 22:35 94 27 100 12/16/19 22:30 93 26 133/66 (88) 100 12/16/19 22:30 133/66 12/16/19 22:00 26 Mechanical Ventilator 100 12/16/19 22:00 26 Mechanical Ventilator 100 12/16/19 22:00 154/67 12/16/19 22:00 95 26 154/67 (96) 100 12/16/19 21:30 86 25 133/62 (85) 100 12/16/19 21:17 97 34 100 12/16/19 21:00 16 Mechanical Ventilator 100 12/16/19 21:00 16 Mechanical Ventilator 100 12/16/19 21:00 129/65 12/16/19 21:00 85 16 129/65 (86) 100 12/16/19 20:30 87 24 119/54 (75) 98 12/16/19 20:00 Mechanical Ventilator 12/16/19 20:00 28 Mechanical Ventilator 100 12/16/19 20:00 28 Mechanical Ventilator 40 12/16/19 20:00 129/63 12/16/19 20:00 104 12/16/19 20:00 99.8 100 28 129/63 (85) 100 12/16/19 20:00 100 Intake and Output 12/16/19 12/17/19 19:00 07:00 Intake Total 1318.32 ml 974.546 ml Output Total 2140 ml 415 ml Balance -821.68 ml 559.546 ml Free Water 500 ml IV Total 398.32 ml 554.546 ml Tube Feeding 420 ml 420 ml Output Urine Total 40 ml 15 ml Stool Total 100 ml 400 ml Hemodialysis UF 2000 ml Microbiology Date/Time Source Procedure Growth Status 12/10/19 21:15 Blood Blood Culture - Final NO GROWTH AFTER 5 DAYS Complete 12/16/19 16:00 Sputum Gram Stain - Final Resulted 12/16/19 16:00 Sputum Sputum Culture - Preliminary NO GROWTH Resulted 12/11/19 22:50 Stool Clostridium difficile Toxin Assay - Final Complete 12/11/19 20:33 Indwelling Cath Urine Culture - Final NO GROWTH AFTER 48 HOURS Complete Current Medications Medications (Trade) Dose Ordered Sig/Vicki Route PRN Reason Start Time Stop Time Status Last Admin Dose Admin Acetaminophen (Tylenol) 650 mg Q4H PRN NG Temp >100.5 12/06/19 14:15 01/05/20 14:14 12/16/19 16:30 Acetaminophen (Tylenol) 650 mg Q4H PRN RECTAL Mild Pain (Pain Scale 1-3) 12/04/19 11:45 01/03/20 11:44 12/06/19 19:17 Chlorhexidine Gluconate (Arely-Hex 2%) 1 applic DAILY@2000 TOPIC 12/05/19 20:00 03/04/20 19:59 12/16/19 20:57 Dextrose (Dextrose 50%) 25 ml Q30M PRN IV Hypoglycemia 11/29/19 14:15 02/27/20 14:14 Dextrose (Dextrose 50%) 50 ml Q30M PRN IV Hypoglycemia 11/29/19 14:15 02/27/20 14:14 Fentanyl Citrate 2500 mcg/Sodium Chloride 250 ml @ 0 mls/hr Q24H IV 12/13/19 00:00 12/20/19 00:00 12/17/19 16:53 Fluconazole/ Sodium Chloride 100 ml @ 100 mls/hr Q24H IV 12/16/19 22:00 12/23/19 21:59 12/16/19 22:10 Folic Acid (Folate) 1 mg DAILY NG 12/18/19 09:00 01/17/20 08:59 Hydralazine HCl (Apresoline) 10 mg Q4H PRN IV For High Blood Pressure 11/29/19 15:15 02/27/20 15:14 Loperamide HCl (Imodium) 2 mg Q6H PRN NG Diarrhea 12/12/19 12:45 01/11/20 12:44 Meropenem 500 mg/ Sodium Chloride 50 ml @ 100 mls/hr Q24HRS IVPB 12/16/19 21:30 12/21/19 21:29 12/16/19 21:31 Midazolam HCl 100 ml @ 0 mls/hr Q24H PRN IV Restlessness 12/16/19 10:45 03/15/20 10:44 12/17/19 10:50 Midodrine (Pro-Amatine) 10 mg THREE TIMES A DAY ORAL 12/12/19 13:00 03/11/20 12:59 12/17/19 17:08 Norepinephrine Bitartrate 16 mg/ Dextrose 566 ml @ 0 mls/hr Q24H IV 12/06/19 09:00 01/05/20 08:59 12/17/19 04:42 Ondansetron HCl (Zofran) 4 mg Q6H PRN IVP Nausea & Vomiting 11/29/19 14:15 12/29/19 14:14 Pantoprazole (Protonix) 40 mg DAILY IVP 11/30/19 12:15 12/30/19 12:14 12/17/19 09:33 Potassium Chloride (K-Dur) 40 meq TWICE A DAY ORAL 12/11/19 09:30 03/10/20 09:29 12/17/19 17:08 Vancomycin HCl (Vanco rx to dose) 1 ea DAILY PRN MISC Per rx protocol 12/08/19 19:30 01/07/20 19:29 Vitamin B Complex/ Vit C/Folic Acid (Nephrovite) 1 tab DAILY NG 12/16/19 09:00 01/15/20 08:59 12/17/19 09:34 Laboratory Tests 12/17/19 06:55: White Blood Count 27.4*H, Red Blood Count 3.38L, Hemoglobin 10.3L, Hematocrit 31.6L, Mean Corpuscular Volume 94, Mean Corpuscular Hemoglobin 30.5, Mean Corpuscular Hemoglobin Concent 32.5, Red Cell Distribution Width 14.2, Platelet Count 179, Mean Platelet Volume 7.4, Neutrophils (%) (Auto) , Lymphocytes (%) ( Auto) , Monocytes (%) (Auto) , Eosinophils (%) (Auto) , Basophils (%) (Auto) , Differential Total Cells Counted 100, Neutrophils % (Manual) 88H, Lymphocytes % (Manual) 6L, Monocytes % (Manual) 6, Eosinophils % (Manual) 0, Basophils % ( Manual) 0, Band Neutrophils 0, Platelet Estimate Adequate, Platelet Morphology Normal, Hypochromasia 1+, Anisocytosis 1+, Sodium Level 142, Potassium Level 4.2 , Chloride Level 105, Carbon Dioxide Level 30, Anion Gap 7, Blood Urea Nitrogen 82H, Creatinine 3.9H, Estimat Glomerular Filtration Rate 16.0, Glucose Level 123H, Calcium Level 10.2H, Total Bilirubin 0.7, Aspartate Amino Transf (AST/SGOT ) 40H, Alanine Aminotransferase (ALT/SGPT) 53, Alkaline Phosphatase 235H, Total Protein 6.0L, Albumin 2.6L, Globulin 3.4, Albumin/Globulin Ratio 0.8L, Random Vancomycin Level 11.6 Height (Feet): 5 Height (Inches): 6.00 Weight (Pounds): 161 Objective stable no bleeding at prepuce barnes indwelling, marge urine Kai Berger MD December 17, 2019 19:47
--- NOTE | 2019-12-17 20:00 | NUR ---
NURSE NOTES: Received pt in no acute distress; calm, asleep, sedated; HOB elevated. Remains orally intubated and saturating 100% on fio2 of 1.0.Secretions pinkish via ETT, oral secretions blood tinged. NGT on left nare in situ and TF with Nepro running at 35ml/h with 0 residuals. Afebrile, temp 98 rectally; cooling blanket continues underneath pt. right femoral TLC intact; Versed gtt infuses at 5mg/h; Fentanyl gtt at 150mcg/h to RASS-2. Levophed gtt also infuses at 5mcg.min. BP stable. Facial wounds covered with optifoam dressing. FC intact but currently anuric. Airborne, droplet and contact isolation continues due to COVID-[address] Berger here and inquired about pt; no orders made. Will continue to monitor sedation status and vital signs.
[2019-12-17] MEDS: Dyna-Hex 2% Top Sol 2oz TOPIC SCH (21:29)
--- NOTE | 2019-12-17 22:00 | NUR ---
NURSE NOTES: Remains calm and appropriately sedated both with Versed and Fentanyl gtt to RASS-2. VSS. Will continue to monitor
[2019-12-18] VITALS (49 sets, daily range): BP systolic 81–127; BP diastolic 38–63
--- NOTE | 2019-12-18 | NUR ---
NURSE NOTES: Pt has blood tinged sputum from oral cavity. Oral care done. ST on the scope BP MAP 59, still on Levophed gtt at 5mcg/min. Calm, asleep. No distress otherwise
--- NOTE | 2019-12-18 02:00 | NUR ---
NURSE NOTES: Asleep, calm, sedated. MAP 55. No Levo titration. Tolerating TF.
--- NOTE | 2019-12-18 04:00 | NUR ---
NURSE NOTES: Complete bed bath done. Rectal tube intact. FC patent but remains anuric. scabs forming on the tip of the nose and lips, some areas bleeding; dry gauze replaced. A&D ointment to lips. Facial wound still with optifoam, dry and intact. Levophed gtt continues at 5mcg/min; Versed gtt at 2.5mg and Fentanyl gtt at 150mcg/h RASS-2. Temp 100 rectally, cooling blanket continues underneath pt.Will continue to monitor
--- NOTE | 2019-12-18 06:50 | NUR ---
NURSE NOTES: SBP 85. Increased Levophed gtt to 6mcg/min. Will continue to monitor
--- NOTE | 2019-12-18 07:06 | NUR ---
HAND-OFF: Report given to Mirza LACKEY.
--- NOTE | 2019-12-18 07:07 | NUR ---
NURSE NOTES: Received report from DARYA Delgado. Patient is sedated. ETT 8/24cm at lip line with vent setting AC 20, VT 500, Peep 5 and FiO2 100%. Left NGT intact and running with Nepro 35ml/hr. Rectal tube intact and draining with dark brown color liquid stool. Joe intact and patent. Right Femoral jia cath with pigtail running with levophed 6mcg/min, versed 5mg/hr and fentanyl 150mcg/hr. Kept dry, clean,comfortable and HOB>30. Will continue plan of care.
[2019-12-18] MEDS: Nephrovite tab (Rena-Vite) NG SCH (08:05)
[2019-12-18] MEDS: Midodrine 10mg tab ORAL SCH ×3 (08:05→17:47)
[2019-12-18] MEDS: Pantoprazole Inj IVP SCH (08:06)
--- NOTE | 2019-12-18 08:30 | NUR ---
NURSE NOTES: All due medication given as ordered.
--- NOTE | 2019-12-18 08:45 | Hematology/Onc Progress Note ---
Assessment/Plan Assessment/Plan # Leukocytosis/elevated white blood cell count, unspecified likely related to underlying stress reaction and addition of infection, covid19++ on vent, intubated --> have reviewed peripheral smear and bandemia/neutrophilia noted --> continue antibiotics if they have been started by ID team --> on broad spectrum abx cefepime/flag/vanc-->katie/vanc --> monitor for resolution --> smear is noted, with metamyelocytes --> wbc trend 18-->24-->32.9-->34k --> ID is aware --> again ordered peripheral smear for path review-->reviewed and no blasts noted # Anemia of chronic disease due to underlying chronic medical issues, multifactorial v Gi bleed --> Anemia workup has been ordered, rule out gi bleed --> No evidence of hemolysis is noted, peripheral smear has been reviewed. --> Hgb goal >7. Transfuse prn. --> Epogen or iron at this time is not particularly indicated --> Medications have been reviewed --> low threshold for gi evaluation in case has occult + ==> hgb trend 11-->10.7-->10.4 # Thrombocytopenia also likely covid related --> supportive care --> plt 149-->164k # Acute Hypoxic Respiratory Failure s/p intubation --> now on vent --> as per Dr. Cortes, weaning # COVID19 positive --> abx # Pneumomediastinum --> monitor for expansion # Subcutaneous emphysema --> too high risk for bedside thoracostomy # ALBARO on ckd --> hd as needed --> per renal # femoral HD cath placed 12/04 --> hd prn # Dvt ppx scds DW Rn and appreciate consultation Subjective Allergies: Coded Allergies: No Known Allergies (Unverified , 11/29/19) Subjective 12/12 remains on vent, ogtube, barnes and rectal tube emptied, right fem jia line 12/14 icu, prone, levo gtt, multiple abx, labs reviewed 12/15 nonv, no bleeding, remains in vent, no bleeding, wbc high, on abx per id 12/16 nonv, on vent, ng, rectal tube, wbc still 34k 12/17 icu, levo gtt, on katie/vanc, tachy Objective Objective Current Medications Medications (Trade) Dose Ordered Sig/Vicki Route PRN Reason Start Time Stop Time Status Last Admin Dose Admin Acetaminophen (Tylenol) 650 mg Q4H PRN NG Temp >100.5 12/06/19 14:15 01/05/20 14:14 12/16/19 16:30 Acetaminophen (Tylenol) 650 mg Q4H PRN RECTAL Mild Pain (Pain Scale 1-3) 12/04/19 11:45 01/03/20 11:44 12/06/19 19:17 Chlorhexidine Gluconate (Arely-Hex 2%) 1 applic DAILY@2000 TOPIC 12/05/19 20:00 03/04/20 19:59 12/17/19 21:29 Dextrose (Dextrose 50%) 25 ml Q30M PRN IV Hypoglycemia 11/29/19 14:15 02/27/20 14:14 Dextrose (Dextrose 50%) 50 ml Q30M PRN IV Hypoglycemia 11/29/19 14:15 02/27/20 14:14 Fentanyl Citrate 2500 mcg/Sodium Chloride 250 ml @ 0 mls/hr Q24H IV 12/13/19 00:00 12/20/19 00:00 12/17/19 16:53 Fluconazole/ Sodium Chloride 100 ml @ 100 mls/hr Q24H IV 12/16/19 22:00 12/23/19 21:59 12/17/19 21:30 Folic Acid (Folate) 1 mg DAILY NG 12/18/19 09:00 01/17/20 08:59 12/18/19 08:06 Hydralazine HCl (Apresoline) 10 mg Q4H PRN IV For High Blood Pressure 11/29/19 15:15 02/27/20 15:14 Loperamide HCl (Imodium) 2 mg Q6H PRN NG Diarrhea 12/12/19 12:45 01/11/20 12:44 Meropenem 500 mg/ Sodium Chloride 50 ml @ 100 mls/hr Q24HRS IVPB 12/16/19 21:30 12/21/19 21:29 12/17/19 21:30 Midazolam HCl 100 ml @ 0 mls/hr Q24H PRN IV Restlessness 12/16/19 10:45 03/15/20 10:44 12/18/19 06:33 Midodrine (Pro-Amatine) 10 mg THREE TIMES A DAY ORAL 12/12/19 13:00 03/11/20 12:59 12/18/19 08:05 Norepinephrine Bitartrate 16 mg/ Dextrose 566 ml @ 0 mls/hr Q24H IV 12/06/19 09:00 12/18/19 09:00 12/17/19 04:42 Norepinephrine Bitartrate 8 mg/ Dextrose 250 ml @ 0 mls/hr Q24H IV 12/18/19 09:00 01/17/20 08:59 Ondansetron HCl (Zofran) 4 mg Q6H PRN IVP Nausea & Vomiting 11/29/19 14:15 12/29/19 14:14 Pantoprazole (Protonix) 40 mg DAILY IVP 11/30/19 12:15 12/30/19 12:14 12/18/19 08:06 Potassium Chloride (K-Dur) 40 meq TWICE A DAY ORAL 12/11/19 09:30 03/10/20 09:29 12/18/19 08:05 Vancomycin HCl (Vanco rx to dose) 1 ea DAILY PRN MISC Per rx protocol 12/08/19 19:30 01/07/20 19:29 Vitamin B Complex/ Vit C/Folic Acid (Nephrovite) 1 tab DAILY NG 12/16/19 09:00 01/15/20 08:59 12/18/19 08:05 Last 24 Hour Vital Signs Date Time Temp Pulse Resp B/P (MAP) Pulse Ox O2 Delivery O2 Flow Rate FiO2 12/18/19 07:11 114 30 100 12/18/19 06:33 30 Mechanical Ventilator 100 12/18/19 06:30 114 29 90/47 (61) 100 12/18/19 06:00 113 30 88/44 (59) 100 12/18/19 06:00 30 Mechanical Ventilator 100 12/18/19 06:00 30 Mechanical Ventilator 100 12/18/19 06:00 89/42 12/18/19 05:30 113 30 86/50 (62) 100 12/18/19 05:00 113 31 99/41 (60) 100 12/18/19 05:00 31 Mechanical Ventilator 100 12/18/19 05:00 31 Mechanical Ventilator 100 12/18/19 05:00 89/42 12/18/19 04:45 101 29 100 12/18/19 04:30 112 30 91/52 (65) 100 12/18/19 04:00 100.0 114 31 84/42 (56) 98 12/18/19 04:00 114 12/18/19 04:00 100 12/18/19 04:00 30 Mechanical Ventilator 100 12/18/19 04:00 30 Mechanical Ventilator 100 12/18/19 04:00 85/37 12/18/19 04:00 Mechanical Ventilator 12/18/19 03:30 119 29 86/48 (61) 100 12/18/19 03:00 118 29 91/43 (59) 100 12/18/19 03:00 29 Mechanical Ventilator 100 12/18/19 03:00 29 Mechanical Ventilator 100 12/18/19 03:00 95/41 12/18/19 02:54 103 28 100 12/18/19 02:30 118 31 92/43 (59) 100 12/18/19 02:00 117 31 88/47 (61) 100 12/18/19 02:00 30 Mechanical Ventilator 100 12/18/19 02:00 30 Mechanical Ventilator 100 12/18/19 02:00 89/45 12/18/19 01:30 117 31 81/43 (56) 100 12/18/19 01:00 31 Mechanical Ventilator 100 12/18/19 01:00 31 Mechanical Ventilator 100 12/18/19 01:00 96/48 12/18/19 01:00 116 31 98/46 (63) 100 12/18/19 00:30 115 33 89/45 (60) 100 12/18/19 00:00 Mechanical Ventilator 12/18/19 00:00 100 12/18/19 00:00 100.0 113 32 95/48 (64) 100 12/18/19 00:00 31 Mechanical Ventilator 100 12/18/19 00:00 31 Mechanical Ventilator 100 12/18/19 00:00 98/50 12/18/19 00:00 115 12/17/19 23:30 113 32 108/50 (69) 100 12/17/19 23:01 102 30 100 12/17/19 23:00 32 Mechanical Ventilator 100 12/17/19 23:00 32 Mechanical Ventilator 100 12/17/19 23:00 108/50 12/17/19 23:00 112 31 112/46 (68) 100 5/5/20 22:30 109 32 104/50 (68) 100 5/5/20 22:00 108 32 104/59 (74) 100 5/5/20 22:00 32 Mechanical Ventilator 100 5/5/20 22:00 32 Mechanical Ventilator 100 5/5/20 22:00 100/58 5/5/20 21:30 108 31 117/62 (80) 100 5/5/20 21:00 32 Mechanical Ventilator 100 5/5/20 21:00 32 Mechanical Ventilator 100 5/5/20 21:00 101/54 5/5/20 21:00 107 32 110/48 (68) 100 5/5/20 20:30 106 32 109/48 (68) 100 5/5/20 20:00 105 32 107/53 (71) 100 5/5/20 20:00 30 Mechanical Ventilator 100 5/5/20 20:00 30 Mechanical Ventilator 100 5/5/20 20:00 108/53 5/5/20 20:00 100 5/5/20 20:00 Mechanical Ventilator 5/5/20 20:00 104 5/5/20 19:30 98.0 104 31 110/54 (72) 100 5/5/20 19:00 103 30 111/55 (73) 100 5/5/20 19:00 30 Endotracheal Tube 100 5/5/20 19:00 30 Endotracheal Tube 100 5/5/20 19:00 111/55 5/5/20 18:40 104 31 100 5/5/20 18:30 102 30 112/58 (76) 100 5/5/20 18:00 100 31 113/54 (73) 99 5/5/20 18:00 30 Endotracheal Tube 100 5/5/20 18:00 30 Endotracheal Tube 100 5/5/20 18:00 111/62 5/5/20 17:30 100 29 89/73 (78) 99 5/5/20 17:00 33 Endotracheal Tube 100 5/5/20 17:00 33 Endotracheal Tube 100 5/5/20 17:00 89/73 5/5/20 17:00 104 27 115/63 (80) 100 5/5/20 17:00 100 29 89/73 (78) 99 5/5/20 16:53 28 Mechanical Ventilator 15.0 100 5/5/20 16:30 96 28 107/57 (74) 100 5/5/20 16:00 97.8 96 27 116/53 (74) 100 5/20 16:00 97 5/5/20 16:00 Mechanical Ventilator 20 16:00 27 Endotracheal Tube 100 5/5/20 16:00 27 Endotracheal Tube 100 5/5/20 16:00 110/58 5//20 16:00 100 5//20 15:30 95 26 110/59 (76) 100 5/20 15:07 95 24 100 5//20 15:00 94 20 113/54 (73) 100 5//20 15:00 20 Endotracheal Tube 100 5/520 15:00 20 Endotracheal Tube 100 5/20 15:00 113/54 520 14:30 93 14 114/54 (74) 100 5/20 14:00 90 12 113/56 (75) 100 5/20 14:00 12 Endotracheal Tube 100 520 14:00 12 Endotracheal Tube 100 520 14:00 110/61 520 13:30 89 23 112/58 (76) 100 5//20 13:00 90 22 118/60 (79) 100 5/20 13:00 22 Endotracheal Tube 100 520 13:00 23 Endotracheal Tube 100 5//20 13:00 113/54 5//20 12:30 93 23 114/61 (78) 100 5//20 12:30 96 27 114/57 (76) 100 5/20 12:00 100 5/20 12:00 93 5/520 12:00 Mechanical Ventilator 20 12:00 28 Endotracheal Tube 100 5/20 12:00 28 Endotracheal Tube 100 5/5/20 12:00 115/59 5/20 12:00 97.6 102 28 108/57 (74) 100 5/20 12:00 97 26 115/59 (77) 100 5//20 11:30 111 31 109/56 (73) 100 5/5/20 11:28 111 5/5/20 11:07 106 30 100 5/5/20 11:00 107 28 98/53 (68) 100 5/5/20 11:00 28 Endotracheal Tube 100 520 11:00 28 Endotracheal Tube 100 20 11:00 107/56 520 10:50 29 Endotracheal Tube 15.0 100 20 10:49 Endotracheal Tube 100 20 10:30 100 30 115/64 (81) 100 20 10:00 93 29 109/66 (80) 100 20 10:00 29 Endotracheal Tube 100 20 10:00 29 Endotracheal Tube 100 20 10:00 109/66 520 09:30 89 27 113/62 (79) 100 20 09:00 88 27 117/64 (81) 100 12/17/19 09:00 27 Endotracheal Tube 100 12/17/19 09:00 27 Endotracheal Tube 100 20 09:00 117/64 20 08:30 87 26 115/67 (83) 100 12/17/19 08:00 97.9 85 26 127/63 (84) 100 12/17/19 08:00 26 Endotracheal Tube 100 12/17/19 08:00 26 Endotracheal Tube 100 12/17/19 08:00 127/63 20 08:00 100 12/17/19 08:00 Mechanical Ventilator 12/17/19 07:57 85 12/17/19 07:30 88 25 130/62 (84) 100 12/17/19 07:11 86 25 100 12/17/19 07:00 25 Mechanical Ventilator 100 12/17/19 07:00 25 Mechanical Ventilator 40 12/17/19 07:00 127/63 12/17/19 07:00 88 25 127/63 (84) 100 12/17/19 06:30 89 25 137/69 (91) 100 12/17/19 06:00 95 27 126/68 (87) 96 12/17/19 05:30 98 26 118/67 (84) 95 12/17/19 05:11 96 27 100 12/17/19 05:00 95 26 135/63 (87) 97 12/17/19 05:00 26 Mechanical Ventilator 40 12/17/19 05:00 26 Mechanical Ventilator 40 12/17/19 05:00 135/63 12/17/19 04:42 106/65 5/5/20 04:30 97 22 106/65 (79) 97 12/17/19 04:00 98 12/17/19 04:00 Mechanical Ventilator 12/17/19 04:00 98.2 97 22 100/56 (71) 100 12/17/19 04:00 20 Mechanical Ventilator 100 12/17/19 04:00 20 Mechanical Ventilator 100 12/17/19 04:00 100/56 12/17/19 04:00 100 12/17/19 03:45 96 21 104/61 (75) 100 12/17/19 03:30 97 22 104/58 (73) 100 12/17/19 03:15 95 22 102/57 (72) 100 12/17/19 03:00 93 22 101/56 (71) 100 12/17/19 03:00 22 Mechanical Ventilator 100 12/17/19 03:00 22 Mechanical Ventilator 100 12/17/19 03:00 101/56 12/17/19 02:38 97 26 100 12/17/19 02:30 92 21 101/53 (69) 100 12/17/19 02:00 21 Mechanical Ventilator 100 12/17/19 02:00 21 Mechanical Ventilator 100 12/17/19 02:00 100/55 12/17/19 02:00 90 21 100/55 (70) 100 12/17/19 01:30 86 22 102/58 (73) 100 12/17/19 01:00 86 25 107/60 (76) 100 12/17/19 01:00 25 Mechanical Ventilator 100 12/17/19 01:00 25 Endotracheal Tube 100 12/17/19 01:00 107/60 12/17/19 00:46 88 25 100 12/17/19 00:30 86 23 109/61 (77) 100 12/17/19 00:23 22 Mechanical Ventilator 100 12/17/19 00:00 92 12/17/19 00:00 97.5 86 21 118/62 (80) 100 12/17/19 00:00 22 Mechanical Ventilator 100 12/17/19 00:00 22 Mechanical Ventilator 100 12/17/19 00:00 118/62 12/17/19 00:00 100 12/17/19 00:00 Mechanical Ventilator 12/16/19 23:30 92 27 118/62 (80) 100 5/4/20 23:00 92 24 129/65 (86) 100 20 23:00 24 100 20 23:00 24 Mechanical Ventilator 100 20 23:00 129/64 20 22:35 94 27 100 20 22:30 93 26 133/66 (88) 100 20 22:30 133/66 20 22:00 26 Mechanical Ventilator 100 12/16/19 22:00 26 Mechanical Ventilator 100 12/16/19 22:00 154/67 20 22:00 95 26 154/67 (96) 100 12/16/19 21:30 86 25 133/62 (85) 100 12/16/19 21:17 97 34 100 12/16/19 21:00 16 Mechanical Ventilator 100 12/16/19 21:00 16 Mechanical Ventilator 100 12/16/19 21:00 129/65 12/16/19 21:00 85 16 129/65 (86) 100 12/16/19 20:30 87 24 119/54 (75) 98 12/16/19 20:00 Mechanical Ventilator 12/16/19 20:00 28 Mechanical Ventilator 100 12/16/19 20:00 28 Mechanical Ventilator 40 12/16/19 20:00 129/63 20 20:00 104 12/16/19 20:00 99.8 100 28 129/63 (85) 100 20 20:00 100 12/16/19 19:38 91 32 100 12/16/19 19:30 106 28 122/58 (79) 100 12/16/19 19:00 30 Endotracheal Tube 100 12/16/19 19:00 30 Endotracheal Tube 100 20 19:00 122/58 20 19:00 116 30 122/58 (79) 98 20 18:30 117 28 115/61 (79) 99 20 18:15 110 28 118/55 (76) 100 20 18:00 26 Endotracheal Tube 100 20 18:00 26 Endotracheal Tube 100 20 18:00 118/55 520 18:00 114 26 106/60 (75) 99 20 17:30 100.4 115 28 97/51 (66) 100 5//20 17:00 116 28 102/60 (74) 100 520 17:00 Endotracheal Tube 100 5 17:00 28 Endotracheal Tube 100 20 17:00 100.4 20 17:00 102/60 520 16:45 117 27 99/61 (74) 100 20 16:30 26 Endotracheal Tube 100 20 16:30 111 26 114/63 (80) 100 12/16/19 16:15 110 27 115/63 (80) 100 20 16:00 Mechanical Ventilator 12/16/19 16:00 27 Endotracheal Tube 100 12/16/19 16:00 27 Endotracheal Tube 100 12/16/19 16:00 117/63 12/16/19 16:00 100.5 114 27 117/63 (81) 100 12/16/19 15:45 113 27 117/59 (78) 100 12/16/19 15:30 112 26 112/62 (79) 100 12/16/19 15:30 26 Endotracheal Tube 100 12/16/19 15:23 109 12/16/19 15:02 113 25 100 20 15:00 110 25 106/62 (77) 100 20 15:00 25 Endotracheal Tube 100 12/16/19 15:00 25 Endotracheal Tube 100 20 15:00 106/62 520 14:30 106 25 111/60 (77) 100 20 14:15 105 24 118/62 (80) 100 20 14:00 25 Endotracheal Tube 100 12/16/19 14:00 25 Endotracheal Tube 100 20 14:00 112/66 520 14:00 106 25 112/66 (81) 100 20 14:00 100 20 13:45 107 26 105/58 (74) 99 20 13:30 100 24 99/63 (75) 100 5/20 13:23 25 Endotracheal Tube 15.0 100 5/20 13:00 106 25 125/63 (83) 100 520 13:00 25 Endotracheal Tube 100 20 13:00 125/63 5/4/20 12:30 102 23 127/63 (84) 100 12/16/19 12:00 Mechanical Ventilator 12/16/19 12:00 100 12/16/19 12:00 99.8 106 24 120/59 (79) 100 12/16/19 12:00 125/57 12/16/19 11:33 104 12/16/19 11:30 111 26 128/52 (77) 100 12/16/19 11:00 25 Endotracheal Tube 100 12/16/19 11:00 126/63 12/16/19 11:00 107 25 126/63 (84) 100 12/16/19 10:31 106 28 100 12/16/19 10:30 106 26 134/65 (88) 100 12/16/19 10:00 105 26 146/59 (88) 100 12/16/19 10:00 26 Endotracheal Tube 100 12/16/19 10:00 136/58 12/16/19 09:30 107 27 140/68 (92) 100 12/16/19 09:00 115 27 119/54 (75) 100 12/16/19 09:00 27 Endotracheal Tube 100 Intake and Output 12/17/19 12/18/19 19:00 07:00 Intake Total 821.39 ml 871.71 ml Output Total 220 ml 100 ml Balance 601.39 ml 771.71 ml Free Water 100 ml IV Total 301.39 ml 486.71 ml Tube Feeding 420 ml 385 ml Output Urine Total 20 ml 0 ml Stool Total 200 ml 100 ml Labs Test 12/16/19 06:10 12/16/19 11:36 12/17/19 06:55 White Blood Count 33.5 K/UL (4.8-10.8) 27.4 K/UL (4.8-10.8) Red Blood Count 3.35 M/UL (4.70-6.10) 3.38 M/UL (4.70-6.10) Hemoglobin 9.9 G/DL (14.2-18.0) 10.3 G/DL (14.2-18.0) Hematocrit 31.2 % (42.0-52.0) 31.6 % (42.0-52.0) Mean Corpuscular Volume 93 FL (80-99) 94 FL (80-99) Mean Corpuscular Hemoglobin 29.7 PG (27.0-31.0) 30.5 PG (27.0-31.0) Mean Corpuscular Hemoglobin Concent 31.9 G/DL (32.0-36.0) 32.5 G/DL (32.0-36.0) Red Cell Distribution Width 13.7 % (11.6-14.8) 14.2 % (11.6-14.8) Platelet Count 169 K/UL (150-450) 179 K/UL (150-450) Mean Platelet Volume 8.4 FL (6.5-10.1) 7.4 FL (6.5-10.1) Neutrophils (%) (Auto) % (45.0-75.0) % (45.0-75.0) Lymphocytes (%) (Auto) % (20.0-45.0) % (20.0-45.0) Monocytes (%) (Auto) % (1.0-10.0) % (1.0-10.0) Eosinophils (%) (Auto) % (0.0-3.0) % (0.0-3.0) Basophils (%) (Auto) % (0.0-2.0) % (0.0-2.0) Differential Total Cells Counted 100 100 Neutrophils % (Manual) 79 % (45-75) 88 % (45-75) Lymphocytes % (Manual) 4 % (20-45) 6 % (20-45) Monocytes % (Manual) 8 % (1-10) 6 % (1-10) Eosinophils % (Manual) 0 % (0-3) 0 % (0-3) Basophils % (Manual) 0 % (0-2) 0 % (0-2) Metamyelocytes % 2 % (0-0) Band Neutrophils 7 % (0-8) 0 % (0-8) Platelet Estimate Adequate Adequate Platelet Morphology Normal Normal Hypochromasia 2+ 1+ Anisocytosis 1+ 1+ Sodium Level 138 MMOL/L (136-145) 142 MMOL/L (136-145) Potassium Level 3.8 MMOL/L (3.5-5.1) 4.2 MMOL/L (3.5-5.1) Chloride Level 100 MMOL/L (98-107) 105 MMOL/L (98-107) Carbon Dioxide Level 33 MMOL/L (21-32) 30 MMOL/L (21-32) Anion Gap 5 mmol/L (5-15) 7 mmol/L (5-15) Blood Urea Nitrogen 52 mg/dL (7-18) 82 mg/dL (7-18) Creatinine 4.0 MG/DL (0.55-1.30) 3.9 MG/DL (0.55-1.30) Estimat Glomerular Filtration Rate 15.5 mL/min (>60) 16.0 mL/min (>60) Glucose Level 154 MG/DL (74-106) 123 MG/DL (74-106) Calcium Level 9.3 MG/DL (8.5-10.1) 10.2 MG/DL (8.5-10.1) Iron Level 23 ug/dL (50-175) Total Iron Binding Capacity 180 ug/dL (250-450) Percent Iron Saturation 13 % (15-50) Unsaturated Iron Binding 157 ug/dL (112-346) Ferritin 783 NG/ML (8-388) Total Bilirubin 0.8 MG/DL (0.2-1.0) 0.7 MG/DL (0.2-1.0) Aspartate Amino Transf (AST/SGOT) 46 U/L (15-37) 40 U/L (15-37) Alanine Aminotransferase (ALT/SGPT) 61 U/L (12-78) 53 U/L (12-78) Alkaline Phosphatase 253 U/L (46-116) 235 U/L (46-116) Total Protein 6.0 G/DL (6.4-8.2) 6.0 G/DL (6.4-8.2) Albumin 2.7 G/DL (3.4-5.0) 2.6 G/DL (3.4-5.0) Globulin 3.3 g/dL 3.4 g/dL Albumin/Globulin Ratio 0.8 (1.0-2.7) 0.8 (1.0-2.7) Carcinoembryonic Antigen 11.3 ng/mL (0.0-4.7) Vitamin B12 Level 1619 PG/ML (193-986) Folate 6.8 NG/ML (8.6-58.9) Thyroid Stimulating Hormone (TSH) 2.541 uiU/mL (0.358-3.740) Arterial Blood pH 7.226 (7.350-7.450) Arterial Blood Partial Pressure CO2 80.7 mmHg (35.0-45.0) Arterial Blood Partial Pressure O2 114.6 mmHg (75.0-100.0) Arterial Blood HCO3 32.7 mmol/L (22.0-26.0) Arterial Blood Oxygen Saturation 97.4 % (95-100) Arterial Blood Base Excess 3.3 (-2-2) Melecio Test Positive Random Vancomycin Level 11.6 ug/mL Height (Feet): 5 Height (Inches): 6.00 Weight (Pounds): 162 Objective General Appearance: prone position on vent Heent: nc, at+ ng Respiratory: normal breath sounds, no retraction, vent++ Cardiovascular: no edema, tachycardia Gastrointestinal: normal inspection Neurologic unresponsive on vent Psychiatric: judgement/insight normal, memory normal, mood/affect normal, no suicidal/homicidal ideation Ext: with hd fem jia in place : + barnes and rectal tube Mj Zhu MD December 18, 2019 08:45
[2019-12-18] MEDS: Norepinephrine Bitartrate 16 MG in D5W 500ml 550 ML IV SCH (09:00)
--- NOTE | 2019-12-18 09:26 | General Progress Note ---
Assessment/Plan Problem List: (1) Elevated LFTs ICD Codes: R79.89 - Other specified abnormal findings of blood chemistry SNOMED: 243000168, 745450264 (2) HTN (hypertension) ICD Codes: I10 - Essential (primary) hypertension SNOMED: 56149172 (3) Suspected COVID-19 virus infection ICD Codes: R68.89 - Other general symptoms and signs SNOMED: 603486703 (4) Pneumonia ICD Codes: J18.9 - Pneumonia, unspecified organism SNOMED: 025437515 (5) Respiratory distress ICD Codes: R06.03 - Acute respiratory distress SNOMED: 256363123 (6) Pneumomediastinum ICD Codes: J98.2 - Interstitial emphysema SNOMED: 84321657 (7) COVID-19 ICD Codes: U07.1 - COVID-19 SNOMED: 588578776 (8) Hypotension ICD Codes: I95.9 - Hypotension, unspecified SNOMED: 36309757 Status: unchanged Assessment/Plan: NGTF rectal tube in place elevated LFTS most likely due to shock liver>>> improving repeat labs in am hepatitis panel>>>Neg abd us when off of isolation fu nephrology recent labs and notes reviewed D/W the nurse Subjective ROS Limited/Unobtainable: No Allergies: Coded Allergies: No Known Allergies (Unverified , 11/29/19) Objective Last 24 Hour Vital Signs Date Time Temp Pulse Resp B/P (MAP) Pulse Ox O2 Delivery O2 Flow Rate FiO2 12/18/19 07:11 114 30 100 12/18/19 06:33 30 Mechanical Ventilator 100 12/18/19 06:30 114 29 90/47 (61) 100 12/18/19 06:00 113 30 88/44 (59) 100 12/18/19 06:00 30 Mechanical Ventilator 100 12/18/19 06:00 30 Mechanical Ventilator 100 12/18/19 06:00 89/42 12/18/19 05:30 113 30 86/50 (62) 100 12/18/19 05:00 113 31 99/41 (60) 100 12/18/19 05:00 31 Mechanical Ventilator 100 12/18/19 05:00 31 Mechanical Ventilator 100 12/18/19 05:00 89/42 12/18/19 04:45 101 29 100 12/18/19 04:30 112 30 91/52 (65) 100 520 04:00 100.0 114 31 84/42 (56) 98 20 04:00 114 20 04:00 100 20 04:00 30 Mechanical Ventilator 100 20 04:00 30 Mechanical Ventilator 100 20 04:00 85/37 520 04:00 Mechanical Ventilator 12/18/19 03:30 119 29 86/48 (61) 100 20 03:00 118 29 91/43 (59) 100 12/18/19 03:00 29 Mechanical Ventilator 100 12/18/19 03:00 29 Mechanical Ventilator 100 12/18/19 03:00 95/41 12/18/19 02:54 103 28 100 12/18/19 02:30 118 31 92/43 (59) 100 12/18/19 02:00 117 31 88/47 (61) 100 12/18/19 02:00 30 Mechanical Ventilator 100 12/18/19 02:00 30 Mechanical Ventilator 100 12/18/19 02:00 89/45 12/18/19 01:30 117 31 81/43 (56) 100 12/18/19 01:00 31 Mechanical Ventilator 100 12/18/19 01:00 31 Mechanical Ventilator 100 12/18/19 01:00 96/48 12/18/19 01:00 116 31 98/46 (63) 100 20 00:30 115 33 89/45 (60) 100 20 00:00 Mechanical Ventilator 20 00:00 100 5//20 00:00 100.0 113 32 95/48 (64) 100 20 00:00 31 Mechanical Ventilator 100 20 00:00 31 Mechanical Ventilator 100 12/17/20 00:00 98/50 520 00:00 115 5/20 23:30 113 32 108/50 (69) 100 520 23:01 102 30 100 5//20 23:00 32 Mechanical Ventilator 100 20 23:00 32 Mechanical Ventilator 100 520 23:00 108/50 5/20 23:00 112 31 112/46 (68) 100 520 22:30 109 32 104/50 (68) 100 5/5/20 22:00 108 32 104/59 (74) 100 5/5/20 22:00 32 Mechanical Ventilator 100 5/5/20 22:00 32 Mechanical Ventilator 100 5/5/20 22:00 100/58 5/5/20 21:30 108 31 117/62 (80) 100 5/5/20 21:00 32 Mechanical Ventilator 100 5/5/20 21:00 32 Mechanical Ventilator 100 5/5/20 21:00 101/54 5/5/20 21:00 107 32 110/48 (68) 100 5/5/20 20:30 106 32 109/48 (68) 100 5/5/20 20:00 105 32 107/53 (71) 100 5/5/20 20:00 30 Mechanical Ventilator 100 5/5/20 20:00 30 Mechanical Ventilator 100 5/5/20 20:00 108/53 5/5/20 20:00 100 5/5/20 20:00 Mechanical Ventilator 5/5/20 20:00 104 5/5/20 19:30 98.0 104 31 110/54 (72) 100 5/5/20 19:00 103 30 111/55 (73) 100 5/5/20 19:00 30 Endotracheal Tube 100 5/5/20 19:00 30 Endotracheal Tube 100 5/5/20 19:00 111/55 5/5/20 18:40 104 31 100 5/5/20 18:30 102 30 112/58 (76) 100 5/5/20 18:00 100 31 113/54 (73) 99 5/5/20 18:00 30 Endotracheal Tube 100 5/5/20 18:00 30 Endotracheal Tube 100 5/5/20 18:00 111/62 5/5/20 17:30 100 29 89/73 (78) 99 5/5/20 17:00 33 Endotracheal Tube 100 5/5/20 17:00 33 Endotracheal Tube 100 5/5/20 17:00 89/73 5/5/20 17:00 104 27 115/63 (80) 100 5/5/20 17:00 100 29 89/73 (78) 99 5/5/20 16:53 28 Mechanical Ventilator 15.0 100 5/5/20 16:30 96 28 107/57 (74) 100 5/5/20 16:00 97.8 96 27 116/53 (74) 100 5/20 16:00 97 520 16:00 Mechanical Ventilator 12/17/19 16:00 27 Endotracheal Tube 100 520 16:00 27 Endotracheal Tube 100 520 16:00 110/58 520 16:00 100 5/20 15:30 95 26 110/59 (76) 100 520 15:07 95 24 100 520 15:00 94 20 113/54 (73) 100 520 15:00 20 Endotracheal Tube 100 520 15:00 20 Endotracheal Tube 100 520 15:00 113/54 5 14:30 93 14 114/54 (74) 100 12/17/19 14:00 90 12 113/56 (75) 100 12/17/19 14:00 12 Endotracheal Tube 100 12/17/19 14:00 12 Endotracheal Tube 100 12/17/19 14:00 110/61 12/17/19 13:30 89 23 112/58 (76) 100 12/17/19 13:00 90 22 118/60 (79) 100 12/17/19 13:00 22 Endotracheal Tube 100 12/17/19 13:00 23 Endotracheal Tube 100 12/17/19 13:00 113/54 12/17/19 12:30 93 23 114/61 (78) 100 20 12:30 96 27 114/57 (76) 100 20 12:00 100 12/17/19 12:00 93 5 12:00 Mechanical Ventilator 12/17/19 12:00 28 Endotracheal Tube 100 20 12:00 28 Endotracheal Tube 100 20 12:00 115/59 520 12:00 97.6 102 28 108/57 (74) 100 20 12:00 97 26 115/59 (77) 100 20 11:30 111 31 109/56 (73) 100 20 11:28 111 /12/31 11:07 106 30 100 5/20 11:00 107 28 98/53 (68) 100 520 11:00 28 Endotracheal Tube 100 12/17/19 11:00 28 Endotracheal Tube 100 12/17/19 11:00 107/56 12/17/19 10:50 29 Endotracheal Tube 15.0 100 12/17/19 10:49 Endotracheal Tube 100 12/17/19 10:30 100 30 115/64 (81) 100 12/17/19 10:00 93 29 109/66 (80) 100 12/17/19 10:00 29 Endotracheal Tube 100 12/17/19 10:00 29 Endotracheal Tube 100 12/17/19 10:00 109/66 12/17/19 09:30 89 27 113/62 (79) 100 Intake and Output 12/17/19 12/18/19 19:00 07:00 Intake Total 821.39 ml 871.71 ml Output Total 220 ml 100 ml Balance 601.39 ml 771.71 ml Free Water 100 ml IV Total 301.39 ml 486.71 ml Tube Feeding 420 ml 385 ml Output Urine Total 20 ml 0 ml Stool Total 200 ml 100 ml Height (Feet): 5 Height (Inches): 6.00 Weight (Pounds): 162 General Appearance: no apparent distress EENT: normal ENT inspection Neck: supple Cardiovascular: normal rate Respiratory/Chest: decreased breath sounds Abdomen: non tender, soft, hypoactive bowel sounds Extremities: non-tender João Rdz MD December 18, 2019 09:26
[2019-12-18] MEDS: fentaNYL Citrate 2,500 MCG in NS 200 ML IV SCH (09:48)
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
--- NOTE | 2019-12-18 10:01 | General Progress Note ---
Assessment/Plan Status: unchanged Assessment/Plan: 59-year-old male with PMH of HTN presents with acute respiratory distress. #Acute Hypoxic Respiratory Failure s/p intubation #Respiratory Acidosis #Severe sepsis/ septic shock #COVID19 positive #CAP #elevated d-dimer #Fevers - improved -Appreciate ICU level of care -s/p Intubation 12/03 -vent management per Pulm/ICU/CCM team -cont. droplet & isolation precautions -Transaminitis/d-dimer/fluctuating fevers likely reactive/ 2/2 COVID -sedation per pulm/ICU -s/p hydroxychloroquine -s/p actrema -s/p Vanc (12/09-12/15), cefepime (12/09-12/15), flagyl (12/09-12/15) -cont. pressure support -midodrine TID -prone position per Pulm -Pulm following, recs appreciated -ID, Dr. Rodriguez, following: on fluconazole (12/15-12/22), Merrem (12/15-12/20) -SCx NGTD 24 hrs, UCx NGTD, f/u BCx #loose stools - improved -c diff negative -d/c PO vanco -immodium PRN #Pneumomediastinum #Subcutaneous emphysema -seen on abd XR -pt too high risk for bedside thoracostomy -d/w general sx and pulm/ICU #ALBARO #Hypernatremia - resolved #Hyperkalemia - resolved -likely 2/2 to above, COVID -s/p kayexalate, insulin, D5 for hyperkalemia -cont. to [facility] -12/04: femoral HD cath placed -d/w Nephro, Dr. Soriano: HD per nephro #Transaminitis - downtrending #Shock Liver -improved -likely 2/2 to above/COVID -LFTs improving, ctm -abd us when off isolation -cont. NGT feeds -GI, Dr. Rdz, following, recs appreciated #Sinus Tachycardia 2/2 respiratory failure #HTN -hydralazine PRN -Cardio, , following: Echo after COVID negative DVT PPX: Lovenox Pt is at high risk of rapid decompensation and requires continued ICU level of care Prognosis grave/poor Time spent on encounter: 55 mins, 30 mins spent on critical care time. Critical Care Services performed include: Telemetry Review Hemodynamic measurement interpretation Laboratory data review and interpretation Radiology image review and interpretation Interpretation of ABG's Discussion of patient's care with ICU team, Nursing staff and/or consulting services, Dr. Soriano, Dr. Appiah. Time of note doesn't reflect time of encounter. Subjective Allergies: Coded Allergies: No Known Allergies (Unverified , 11/29/19) Subjective Follow up for acute hypoxic resp failure, COVID19 positive, intubation/sedated, multi-organ failure. Remains intubated on 80% FiO2, sedated on pressure support Levo 8. WBC remains elevated. Plan for HD again today. Unable to obtain ROS due to clinical picture. Objective Last 24 Hour Vital Signs Date Time Temp Pulse Resp B/P (MAP) Pulse Ox O2 Delivery O2 Flow Rate FiO2 12/18/19 09:48 26 Mechanical Ventilator 100 12/18/19 09:43 106/47 12/18/19 07:11 114 30 100 12/18/19 06:33 30 Mechanical Ventilator 100 12/18/19 06:30 114 29 90/47 (61) 100 12/18/19 06:00 113 30 88/44 (59) 100 12/18/19 06:00 30 Mechanical Ventilator 100 12/18/19 06:00 30 Mechanical Ventilator 100 12/18/19 06:00 89/42 12/18/19 05:30 113 30 86/50 (62) 100 12/18/19 05:00 113 31 99/41 (60) 100 12/18/19 05:00 31 Mechanical Ventilator 100 12/18/19 05:00 31 Mechanical Ventilator 100 12/18/19 05:00 89/42 12/18/19 04:45 101 29 100 12/18/19 04:30 112 30 91/52 (65) 100 12/18/19 04:00 100.0 114 31 84/42 (56) 98 12/18/19 04:00 114 12/18/19 04:00 100 12/18/19 04:00 30 Mechanical Ventilator 100 12/18/19 04:00 30 Mechanical Ventilator 100 12/18/19 04:00 85/37 12/18/19 04:00 Mechanical Ventilator 12/18/19 03:30 119 29 86/48 (61) 100 5/6/20 03:00 118 29 91/43 (59) 100 12/18/19 03:00 29 Mechanical Ventilator 100 12/18/19 03:00 29 Mechanical Ventilator 100 12/18/19 03:00 95/41 12/18/19 02:54 103 28 100 12/18/19 02:30 118 31 92/43 (59) 100 12/18/19 02:00 117 31 88/47 (61) 100 12/18/19 02:00 30 Mechanical Ventilator 100 12/18/19 02:00 30 Mechanical Ventilator 100 12/18/19 02:00 89/45 12/18/19 01:30 117 31 81/43 (56) 100 12/18/19 01:00 31 Mechanical Ventilator 100 12/18/19 01:00 31 Mechanical Ventilator 100 12/18/19 01:00 96/48 12/18/19 01:00 116 31 98/46 (63) 100 12/18/19 00:30 115 33 89/45 (60) 100 12/18/19 00:00 Mechanical Ventilator 12/18/19 00:00 100 12/18/19 00:00 100.0 113 32 95/48 (64) 100 12/18/19 00:00 31 Mechanical Ventilator 100 12/18/19 00:00 31 Mechanical Ventilator 100 12/18/19 00:00 98/50 12/18/19 00:00 115 12/17/19 23:30 113 32 108/50 (69) 100 12/17/19 23:01 102 30 100 12/17/19 23:00 32 Mechanical Ventilator 100 12/17/19 23:00 32 Mechanical Ventilator 100 12/17/19 23:00 108/50 20 23:00 112 31 112/46 (68) 100 12/17/19 22:30 109 32 104/50 (68) 100 12/17/19 22:00 108 32 104/59 (74) 100 12/17/19 22:00 32 Mechanical Ventilator 100 12/17/19 22:00 32 Mechanical Ventilator 100 12/17/19 22:00 100/58 20 21:30 108 31 117/62 (80) 100 12/17/19 21:00 32 Mechanical Ventilator 100 12/17/19 21:00 32 Mechanical Ventilator 100 5/5/20 21:00 101/54 5/5/20 21:00 107 32 110/48 (68) 100 5/5/20 20:30 106 32 109/48 (68) 100 5/5/20 20:00 105 32 107/53 (71) 100 5/5/20 20:00 30 Mechanical Ventilator 100 5/5/20 20:00 30 Mechanical Ventilator 100 5/5/20 20:00 108/53 5/5/20 20:00 100 5/5/20 20:00 Mechanical Ventilator 5//20 20:00 104 5/5/20 19:30 98.0 104 31 110/54 (72) 100 5/5/20 19:00 103 30 111/55 (73) 100 5//20 19:00 30 Endotracheal Tube 100 520 19:00 30 Endotracheal Tube 100 5//20 19:00 111/55 5/20 18:40 104 31 100 5//20 18:30 102 30 112/58 (76) 100 5//20 18:00 100 31 113/54 (73) 99 5/5/20 18:00 30 Endotracheal Tube 100 520 18:00 30 Endotracheal Tube 100 5/20 18:00 111/62 5/20 17:30 100 29 89/73 (78) 99 5//20 17:00 33 Endotracheal Tube 100 5//20 17:00 33 Endotracheal Tube 100 5//20 17:00 89/73 5/20 17:00 104 27 115/63 (80) 100 5//20 17:00 100 29 89/73 (78) 99 5/20 16:53 28 Mechanical Ventilator 15.0 100 5//20 16:30 96 28 107/57 (74) 100 5/5/20 16:00 97.8 96 27 116/53 (74) 100 5/5/20 16:00 97 5/5/20 16:00 Mechanical Ventilator 520 16:00 27 Endotracheal Tube 100 5/5/20 16:00 27 Endotracheal Tube 100 5/5/20 16:00 110/58 5/5/20 16:00 100 5//20 15:30 95 26 110/59 (76) 100 5/20 15:07 95 24 100 5/5/20 15:00 94 20 113/54 (73) 100 12/17/19 15:00 20 Endotracheal Tube 100 12/17/19 15:00 20 Endotracheal Tube 100 12/17/19 15:00 113/54 12/17/19 14:30 93 14 114/54 (74) 100 12/17/19 14:00 90 12 113/56 (75) 100 12/17/19 14:00 12 Endotracheal Tube 100 12/17/19 14:00 12 Endotracheal Tube 100 12/17/19 14:00 110/61 12/17/19 13:30 89 23 112/58 (76) 100 12/17/19 13:00 90 22 118/60 (79) 100 12/17/19 13:00 22 Endotracheal Tube 100 12/17/19 13:00 23 Endotracheal Tube 100 12/17/19 13:00 113/54 12/17/19 12:30 93 23 114/61 (78) 100 12/17/19 12:30 96 27 114/57 (76) 100 12/17/19 12:00 100 12/17/19 12:00 93 12/17/19 12:00 Mechanical Ventilator 12/17/19 12:00 28 Endotracheal Tube 100 12/17/19 12:00 28 Endotracheal Tube 100 12/17/19 12:00 115/59 12/17/19 12:00 97.6 102 28 108/57 (74) 100 12/17/19 12:00 97 26 115/59 (77) 100 12/17/19 11:30 111 31 109/56 (73) 100 12/17/19 11:28 111 12/17/19 11:07 106 30 100 12/17/19 11:00 107 28 98/53 (68) 100 12/17/19 11:00 28 Endotracheal Tube 100 12/17/19 11:00 28 Endotracheal Tube 100 12/17/19 11:00 107/56 12/17/19 10:50 29 Endotracheal Tube 15.0 100 12/17/19 10:49 Endotracheal Tube 100 12/17/19 10:30 100 30 115/64 (81) 100 Intake and Output 12/17/19 12/18/19 19:00 07:00 Intake Total 821.39 ml 871.71 ml Output Total 220 ml 100 ml Balance 601.39 ml 771.71 ml Free Water 100 ml IV Total 301.39 ml 486.71 ml Tube Feeding 420 ml 385 ml Output Urine Total 20 ml 0 ml Stool Total 200 ml 100 ml Height (Feet): 5 Height (Inches): 6.00 Weight (Pounds): 162 Objective General Appearance: intubated, OG tube in place, in supine position Cardiovascular: sinus tach on tele, HR low 100's Respiratory/Chest: ETT in place, equal rise in lungs b/l Abdomen: non distended Ext: no edema noted Theodore Aguayo M.D. December 18, 2019 10:01
--- NOTE | 2019-12-18 10:02 | NUR ---
NURSE NOTES: Repositioned patient and provided oral care.
--- NOTE | 2019-12-18 10:53 | Nephrology Progress Note ---
Assessment/Plan Plan #ALBARO- concerns for developing ischemic ATN in the setting of sepsis- r/o vanco toxicity - r/o COVID nephropathy - now with likely ATN #Hyperkalemia due to renal insuffiency - exacerbated by acidosis #COID sepsis #COVID pneumonia #hypoxemic respiratary failure #HTN- now in shock #mediastinal PTX - HD today - order placed- UF as tolerated- 2L-> will give albumin PRN - midodorine 10mg q8hr - monitor I&Os - daily weights - monitor lytes closely -add nephrovite - GOALS of care discussion - continue pressor support to maintain MAP > 65- continue levo - continue fentanyl dip - abx per ID- on vanco and cefepime, flagyl - vent management per pulm -Abd Xray shows mediastinal PTX - too high risk for thorocotomy Subjective ROS Limited/Unobtainable: Yes Subjective undergoing HD today remains oliguric on Fio2 100 on levo Abd Xray shows mediastinal PTX Objective Objective Last 24 Hour Vital Signs Date Time Temp Pulse Resp B/P (MAP) Pulse Ox O2 Delivery O2 Flow Rate FiO2 12/18/19 09:48 26 Mechanical Ventilator 100 12/18/19 09:43 106/47 12/18/19 09:30 100 27 106/47 (66) 100 12/18/19 09:00 102 32 99/56 (70) 100 12/18/19 08:30 106 33 95/52 (66) 100 12/18/19 08:00 100 12/18/19 08:00 Mechanical Ventilator 12/18/19 08:00 100.0 112 31 102/38 (59) 100 12/18/19 07:30 111 35 87/46 (60) 100 12/18/19 07:11 114 30 100 12/18/19 07:00 113 30 96/42 (60) 100 12/18/19 06:33 30 Mechanical Ventilator 100 12/18/19 06:30 114 29 90/47 (61) 100 12/18/19 06:00 113 30 88/44 (59) 100 12/18/19 06:00 30 Mechanical Ventilator 100 12/18/19 06:00 30 Mechanical Ventilator 100 12/18/19 06:00 89/42 12/18/19 05:30 113 30 86/50 (62) 100 12/18/19 05:00 113 31 99/41 (60) 100 12/18/19 05:00 31 Mechanical Ventilator 100 12/18/19 05:00 31 Mechanical Ventilator 100 12/18/19 05:00 89/42 12/18/19 04:45 101 29 100 12/18/19 04:30 112 30 91/52 (65) 100 12/18/19 04:00 100.0 114 31 84/42 (56) 98 12/18/19 04:00 114 12/18/19 04:00 100 12/18/19 04:00 30 Mechanical Ventilator 100 12/18/19 04:00 30 Mechanical Ventilator 100 12/18/19 04:00 85/37 12/18/19 04:00 Mechanical Ventilator 12/18/19 03:30 119 29 86/48 (61) 100 12/18/19 03:00 118 29 91/43 (59) 100 12/18/19 03:00 29 Mechanical Ventilator 100 12/18/19 03:00 29 Mechanical Ventilator 100 12/18/19 03:00 95/41 12/18/19 02:54 103 28 100 12/18/19 02:30 118 31 92/43 (59) 100 12/18/19 02:00 117 31 88/47 (61) 100 12/18/19 02:00 30 Mechanical Ventilator 100 12/18/19 02:00 30 Mechanical Ventilator 100 12/18/19 02:00 89/45 12/18/19 01:30 117 31 81/43 (56) 100 12/18/19 01:00 31 Mechanical Ventilator 100 12/18/19 01:00 31 Mechanical Ventilator 100 12/18/19 01:00 96/48 12/18/19 01:00 116 31 98/46 (63) 100 20 00:30 115 33 89/45 (60) 100 12/18/19 00:00 Mechanical Ventilator 12/18/19 00:00 100 12/18/19 00:00 100.0 113 32 95/48 (64) 100 12/18/19 00:00 31 Mechanical Ventilator 100 12/18/19 00:00 31 Mechanical Ventilator 100 12/18/19 00:00 98/50 5 00:00 115 5/12/31 23:30 113 32 108/50 (69) 100 12/17/19 23:01 102 30 100 5/5/20 23:00 32 Mechanical Ventilator 100 5/5/20 23:00 32 Mechanical Ventilator 100 5/5/20 23:00 108/50 5/5/20 23:00 112 31 112/46 (68) 100 5/5/20 22:30 109 32 104/50 (68) 100 5/5/20 22:00 108 32 104/59 (74) 100 5/5/20 22:00 32 Mechanical Ventilator 100 5/5/20 22:00 32 Mechanical Ventilator 100 5/5/20 22:00 100/58 5/5/20 21:30 108 31 117/62 (80) 100 5/5/20 21:00 32 Mechanical Ventilator 100 5/5/20 21:00 32 Mechanical Ventilator 100 5/5/20 21:00 101/54 5/5/20 21:00 107 32 110/48 (68) 100 5/5/20 20:30 106 32 109/48 (68) 100 5/5/20 20:00 105 32 107/53 (71) 100 5/5/20 20:00 30 Mechanical Ventilator 100 5/5/20 20:00 30 Mechanical Ventilator 100 5/5/20 20:00 108/53 5/5/20 20:00 100 5/5/20 20:00 Mechanical Ventilator 5/5/20 20:00 104 5/5/20 19:30 98.0 104 31 110/54 (72) 100 5/5/20 19:00 103 30 111/55 (73) 100 5/5/20 19:00 30 Endotracheal Tube 100 5/5/20 19:00 30 Endotracheal Tube 100 5/5/20 19:00 111/55 5/5/20 18:40 104 31 100 5/5/20 18:30 102 30 112/58 (76) 100 5/5/20 18:00 100 31 113/54 (73) 99 5/5/20 18:00 30 Endotracheal Tube 100 5/5/20 18:00 30 Endotracheal Tube 100 5/5/20 18:00 111/62 5/5/20 17:30 100 29 89/73 (78) 99 5/5/20 17:00 33 Endotracheal Tube 100 5/5/20 17:00 33 Endotracheal Tube 100 5/5/20 17:00 89/73 5/5/20 17:00 104 27 115/63 (80) 100 5/5/20 17:00 100 29 89/73 (78) 99 5/5/20 16:53 28 Mechanical Ventilator 15.0 100 5/5/20 16:30 96 28 107/57 (74) 100 5/5/20 16:00 97.8 96 27 116/53 (74) 100 5/5/20 16:00 97 5/5/20 16:00 Mechanical Ventilator 520 16:00 27 Endotracheal Tube 100 5/5/20 16:00 27 Endotracheal Tube 100 5/5/20 16:00 110/58 5/5/20 16:00 100 5/5/20 15:30 95 26 110/59 (76) 100 5/5/20 15:07 95 24 100 5//20 15:00 94 20 113/54 (73) 100 5/5/20 15:00 20 Endotracheal Tube 100 5/5/20 15:00 20 Endotracheal Tube 100 5/5/20 15:00 113/54 5/5/20 14:30 93 14 114/54 (74) 100 5//20 14:00 90 12 113/56 (75) 100 5//20 14:00 12 Endotracheal Tube 100 5/5/20 14:00 12 Endotracheal Tube 100 5/5/20 14:00 110/61 5/20 13:30 89 23 112/58 (76) 100 5/5/20 13:00 90 22 118/60 (79) 100 5/5/20 13:00 22 Endotracheal Tube 100 5/5/20 13:00 23 Endotracheal Tube 100 5/5/20 13:00 113/54 5/5/20 12:30 93 23 114/61 (78) 100 5/5/20 12:30 96 27 114/57 (76) 100 5/5/20 12:00 100 5/5/20 12:00 93 5/5/20 12:00 Mechanical Ventilator 20 12:00 28 Endotracheal Tube 100 5/5/20 12:00 28 Endotracheal Tube 100 5/5/20 12:00 115/59 5/5/20 12:00 97.6 102 28 108/57 (74) 100 5/5/20 12:00 97 26 115/59 (77) 100 5/5/20 11:30 111 31 109/56 (73) 100 12/17/19 11:28 111 12/17/19 11:07 106 30 100 12/17/19 11:00 107 28 98/53 (68) 100 12/17/19 11:00 28 Endotracheal Tube 100 12/17/19 11:00 28 Endotracheal Tube 100 12/17/19 11:00 107/56 Intake and Output 12/17/19 12/18/19 19:00 07:00 Intake Total 821.39 ml 871.71 ml Output Total 220 ml 100 ml Balance 601.39 ml 771.71 ml Free Water 100 ml IV Total 301.39 ml 486.71 ml Tube Feeding 420 ml 385 ml Output Urine Total 20 ml 0 ml Stool Total 200 ml 100 ml Height (Feet): 5 Height (Inches): 6.00 Weight (Pounds): 162 Objective General Appearance: other - intubated- proned Lines, tubes and drains: central line HEENT: normocephalic, atraumatic Respiratory/Chest: rhonchi - bilaterally Cardiovascular/Chest: other - tachycardic Extremities: pitting Dorian Soriano M.D. December 18, 2019 10:53
--- NOTE | 2019-12-18 11:24 | Pulmonology Progress Note ---
Assessment/Plan Assessment/Plan IMPRESSION: 1. Bilateral pneumonia. 2. Positive COVID-19. 3. Respiratory failure. DISCUSSION: Intubated On AC 20; FiO2 100; PEEP 5; SaO2 99% Abd Xray shows mediastinal PTX Recent CXR 12/06; no PTX or pneumomediastinum seen Repeat CXR today again shows mediastinal PTX Hold proning On Fentanyl due to high triglycerides Hold further proning Saturations are better Grave prognosis I will follow carefully. On HD now S/p Actemra Blood CS ? contaminant Needs ongoing HD; more ultrafiltration Urine CS negative Will decrease PEEP to 5 Sushil Cortes M.D. Subjective ROS Limited/Unobtainable: No Interval Events: Intubated ;proning on hold due to facial decubitus Constitutional: Reports: fever, other - on vent and pressors HEENT: Repors: no symptoms Respiratory: Reports: no symptoms Cardiovascular: Reports: no symptoms Gastrointestinal/Abdominal: Denies: nausea, vomiting, diarrhea Genitourinary: Reports: no symptoms Psychiatric: Reports: other - NA Skin: Denies: rash Musculoskeletal: Reports: other - NA Allergies: Coded Allergies: No Known Allergies (Unverified , 11/29/19) All Systems: reviewed and negative except above Objective Last 24 Hour Vital Signs Date Time Temp Pulse Resp B/P (MAP) Pulse Ox O2 Delivery O2 Flow Rate FiO2 12/18/19 11:00 113/59 12/18/19 11:00 30 Mechanical Ventilator 100 12/18/19 10:00 105/49 12/18/19 10:00 28 Mechanical Ventilator 100 12/18/19 09:48 26 Mechanical Ventilator 100 12/18/19 09:43 106/47 12/18/19 09:42 106/47 12/18/19 09:30 100 27 106/47 (66) 100 12/18/19 09:00 99/56 12/18/19 09:00 102 32 99/56 (70) 100 12/18/19 08:30 106 33 95/52 (66) 100 12/18/19 08:30 95/52 12/18/19 08:15 97/52 12/18/19 08:00 100 12/18/19 08:00 Mechanical Ventilator 12/18/19 08:00 100.0 112 31 102/38 (59) 100 12/18/19 08:00 102/38 12/18/19 07:45 100/38 12/18/19 07:30 111 35 87/46 (60) 100 12/18/19 07:30 87/46 12/18/19 07:11 114 30 100 12/18/19 07:00 113 30 96/42 (60) 100 12/18/19 07:00 20 Mechanical Ventilator 100 12/18/19 07:00 20 Mechanical Ventilator 100 12/18/19 07:00 96/42 12/18/19 06:33 30 Mechanical Ventilator 100 12/18/19 06:30 114 29 90/47 (61) 100 12/18/19 06:00 113 30 88/44 (59) 100 12/18/19 06:00 30 Mechanical Ventilator 100 12/18/19 06:00 30 Mechanical Ventilator 100 12/18/19 06:00 89/42 12/18/19 05:30 113 30 86/50 (62) 100 12/18/19 05:00 113 31 99/41 (60) 100 12/18/19 05:00 31 Mechanical Ventilator 100 12/18/19 05:00 31 Mechanical Ventilator 100 12/18/19 05:00 89/42 12/18/19 04:45 101 29 100 12/18/19 04:30 112 30 91/52 (65) 100 12/18/19 04:00 100.0 114 31 84/42 (56) 98 12/18/19 04:00 114 12/18/19 04:00 100 12/18/19 04:00 30 Mechanical Ventilator 100 12/18/19 04:00 30 Mechanical Ventilator 100 12/18/19 04:00 85/37 12/18/19 04:00 Mechanical Ventilator 12/18/19 03:30 119 29 86/48 (61) 100 12/18/19 03:00 118 29 91/43 (59) 100 12/18/19 03:00 29 Mechanical Ventilator 100 12/18/19 03:00 29 Mechanical Ventilator 100 12/18/19 03:00 95/41 12/18/19 02:54 103 28 100 12/18/19 02:30 118 31 92/43 (59) 100 520 02:00 117 31 88/47 (61) 100 12/18/19 02:00 30 Mechanical Ventilator 100 20 02:00 30 Mechanical Ventilator 100 20 02:00 89/45 520 01:30 117 31 81/43 (56) 100 20 01:00 31 Mechanical Ventilator 100 12/18/19 01:00 31 Mechanical Ventilator 100 12/18/19 01:00 96/48 12/18/19 01:00 116 31 98/46 (63) 100 20 00:30 115 33 89/45 (60) 100 12/18/19 00:00 Mechanical Ventilator 12/18/19 00:00 100 12/18/19 00:00 100.0 113 32 95/48 (64) 100 12/18/19 00:00 31 Mechanical Ventilator 100 12/18/19 00:00 31 Mechanical Ventilator 100 12/18/19 00:00 98/50 20 00:00 115 12/17/19 23:30 113 32 108/50 (69) 100 520 23:01 102 30 100 /20 23:00 32 Mechanical Ventilator 100 12/17/19 23:00 32 Mechanical Ventilator 100 12/17/19 23:00 108/50 20 23:00 112 31 112/46 (68) 100 20 22:30 109 32 104/50 (68) 100 20 22:00 108 32 104/59 (74) 100 20 22:00 32 Mechanical Ventilator 100 20 22:00 32 Mechanical Ventilator 100 20 22:00 100/58 5/20 21:30 108 31 117/62 (80) 100 20 21:00 32 Mechanical Ventilator 100 20 21:00 32 Mechanical Ventilator 100 520 21:00 101/54 5/520 21:00 107 32 110/48 (68) 100 5/20 20:30 106 32 109/48 (68) 100 5/520 20:00 105 32 107/53 (71) 100 5/20 20:00 30 Mechanical Ventilator 100 5/5/20 20:00 30 Mechanical Ventilator 100 5/5/20 20:00 108/53 5/5/20 20:00 100 5/5/20 20:00 Mechanical Ventilator 5/5/20 20:00 104 5/5/20 19:30 98.0 104 31 110/54 (72) 100 5/5/20 19:00 103 30 111/55 (73) 100 5/5/20 19:00 30 Endotracheal Tube 100 5/5/20 19:00 30 Endotracheal Tube 100 5/5/20 19:00 111/55 5/5/20 18:40 104 31 100 5/5/20 18:30 102 30 112/58 (76) 100 5/5/20 18:00 100 31 113/54 (73) 99 5/5/20 18:00 30 Endotracheal Tube 100 520 18:00 30 Endotracheal Tube 100 5//20 18:00 111/62 55/20 17:30 100 29 89/73 (78) 99 55/20 17:00 33 Endotracheal Tube 100 520 17:00 33 Endotracheal Tube 100 5/20 17:00 89/73 520 17:00 104 27 115/63 (80) 100 5//20 17:00 100 29 89/73 (78) 99 5/20 16:53 28 Mechanical Ventilator 15.0 100 520 16:30 96 28 107/57 (74) 100 5/20 16:00 97.8 96 27 116/53 (74) 100 520 16:00 97 5/5/20 16:00 Mechanical Ventilator 20 16:00 27 Endotracheal Tube 100 5/5/20 16:00 27 Endotracheal Tube 100 5/5/20 16:00 110/58 5/5/20 16:00 100 5/5/20 15:30 95 26 110/59 (76) 100 5/5/20 15:07 95 24 100 5/5/20 15:00 94 20 113/54 (73) 100 5/5/20 15:00 20 Endotracheal Tube 100 5/5/20 15:00 20 Endotracheal Tube 100 5/5/20 15:00 113/54 5/5/20 14:30 93 14 114/54 (74) 100 5/5/20 14:00 90 12 113/56 (75) 100 12/17/19 14:00 12 Endotracheal Tube 100 12/17/19 14:00 12 Endotracheal Tube 100 12/17/19 14:00 110/61 12/17/19 13:30 89 23 112/58 (76) 100 12/17/19 13:00 90 22 118/60 (79) 100 12/17/19 13:00 22 Endotracheal Tube 100 12/17/19 13:00 23 Endotracheal Tube 100 12/17/19 13:00 113/54 12/17/19 12:30 93 23 114/61 (78) 100 12/17/19 12:30 96 27 114/57 (76) 100 12/17/19 12:00 100 12/17/19 12:00 93 12/17/19 12:00 Mechanical Ventilator 12/17/19 12:00 28 Endotracheal Tube 100 12/17/19 12:00 28 Endotracheal Tube 100 12/17/19 12:00 115/59 12/17/19 12:00 97.6 102 28 108/57 (74) 100 12/17/19 12:00 97 26 115/59 (77) 100 12/17/19 11:30 111 31 109/56 (73) 100 12/17/19 11:28 111 Intake and Output 12/17/19 12/18/19 19:00 07:00 Intake Total 821.39 ml 899.82 ml Output Total 220 ml 100 ml Balance 601.39 ml 799.82 ml Free Water 100 ml IV Total 301.39 ml 514.82 ml Tube Feeding 420 ml 385 ml Output Urine Total 20 ml 0 ml Stool Total 200 ml 100 ml General Appearance: no acute distress HEENT: normocephalic, atraumatic, other - oral - intubated Respiratory/Chest: chest wall non-tender, lungs clear Cardiovascular: normal peripheral pulses, normal rate Abdomen: normal bowel sounds, soft, non tender, no organomegaly, non distended Genitourinary: other - + barnes Extremities: no cyanosis Skin: no rash Neurologic/Psychiatric: other - lethargic, weak Lymphatic: no neck adenopathy Musculoskeletal: no effusion Microbiology Date/Time Source Procedure Growth Status 12/16/19 16:00 Sputum Gram Stain - Final Complete 12/16/19 16:00 Sputum Sputum Culture - Final NORMAL UPPER RESPIRATORY ALISIA PRESENT Complete 12/17/19 00:38 Indwelling Cath Urine Culture - Preliminary NO GROWTH AFTER 24 HOURS Resulted Current Medications Medications (Trade) Dose Ordered Sig/Vicki Route PRN Reason Start Time Stop Time Status Last Admin Dose Admin Acetaminophen (Tylenol) 650 mg Q4H PRN NG Temp >100.5 12/06/19 14:15 01/05/20 14:14 12/16/19 16:30 Acetaminophen (Tylenol) 650 mg Q4H PRN RECTAL Mild Pain (Pain Scale 1-3) 12/04/19 11:45 01/03/20 11:44 12/06/19 19:17 Chlorhexidine Gluconate (Arely-Hex 2%) 1 applic DAILY@2000 TOPIC 12/05/19 20:00 03/04/20 19:59 12/17/19 21:29 Dextrose (Dextrose 50%) 25 ml Q30M PRN IV Hypoglycemia 11/29/19 14:15 02/27/20 14:14 Dextrose (Dextrose 50%) 50 ml Q30M PRN IV Hypoglycemia 11/29/19 14:15 02/27/20 14:14 Fentanyl Citrate 2500 mcg/Sodium Chloride 250 ml @ 0 mls/hr Q24H IV 12/13/19 00:00 12/20/19 00:00 12/18/19 09:48 Fluconazole/ Sodium Chloride 100 ml @ 100 mls/hr Q24H IV 12/16/19 22:00 12/23/19 21:59 12/17/19 21:30 Folic Acid (Folate) 1 mg DAILY NG 12/18/19 09:00 01/17/20 08:59 12/18/19 08:06 Hydralazine HCl (Apresoline) 10 mg Q4H PRN IV For High Blood Pressure 11/29/19 15:15 02/27/20 15:14 Loperamide HCl (Imodium) 2 mg Q6H PRN NG Diarrhea 12/12/19 12:45 01/11/20 12:44 Meropenem 500 mg/ Sodium Chloride 50 ml @ 100 mls/hr Q24HRS IVPB 12/16/19 21:30 12/21/19 21:29 12/17/19 21:30 Midazolam HCl 100 ml @ 0 mls/hr Q24H PRN IV Restlessness 12/16/19 10:45 03/15/20 10:44 12/18/19 06:33 Midodrine (Pro-Amatine) 10 mg THREE TIMES A DAY ORAL 12/12/19 13:00 03/11/20 12:59 12/18/19 08:05 Norepinephrine Bitartrate 8 mg/ Dextrose 250 ml @ 0 mls/hr Q24H IV 12/18/19 09:00 01/17/20 08:59 12/18/19 09:43 Ondansetron HCl (Zofran) 4 mg Q6H PRN IVP Nausea & Vomiting 11/29/19 14:15 12/29/19 14:14 Pantoprazole (Protonix) 40 mg DAILY IVP 11/30/19 12:15 12/30/19 12:14 12/18/19 08:06 Potassium Chloride (K-Dur) 40 meq TWICE A DAY ORAL 12/11/19 09:30 03/10/20 09:29 12/18/19 08:05 Vancomycin HCl (Vanco rx to dose) 1 ea DAILY PRN MISC Per rx protocol 12/08/19 19:30 01/07/20 19:29 Vitamin B Complex/ Vit C/Folic Acid (Nephrovite) 1 tab DAILY NG 12/16/19 09:00 01/15/20 08:59 12/18/19 08:05 Sushil Cortes MD December 18, 2019 11:24
--- NOTE | 2019-12-18 12:33 | NUR ---
NURSE NOTES: Repositioned patient. HD nurse/celia said water pressure is not enough to do HD.
[2019-12-18] MEDS: Acetaminophen 650mg/20.3ml NG PRN (12:41)
--- NOTE | 2019-12-18 13:02 | NUR ---
NURSE NOTES: Called engineering department. Jamie came and said he can't go COVID patient's room. Recorded water flow and showed to him. He said it's enough to do HD. Compare with another room's pressure as well. It was almost same pressure as view.
--- NOTE | 2019-12-18 13:45 | Cardiac Electrophysiology PN ---
Assessment/Plan Assessment/Plan 1. Atrial fib with RVR 170 before intubation on 12/04/19. Converted to Sinus tach Troponin 0.77. No further atrial fib. In SR 2. Sinus Tachycardia due to respiratory failure and COVID-19 pneumonia. On IV antibiotic per ID. Echo pending COVID. 3. Septic shock. On Levophed 3 Mcg, Midodrine 10 tid and iv Abx. 4. Respiratory failure, on the Vent by Dr. Cortes. 100% Fio2 PEEP 5 5. Acute renal failure. On HD per Dr. Sanchez via RFV [place] 6. Full code DW RN Subjective Subjective Intubated in ICU on 80% Fio2 and PEEP 10 on Levo 8 mcg , Fentanyl and Versed drip. Atrial fib with RVR 160s on 12/04/19 but no recurrence. In SR . Scheduled for HD again today Objective Last 24 Hour Vital Signs Date Time Temp Pulse Resp B/P (MAP) Pulse Ox O2 Delivery O2 Flow Rate FiO2 12/18/19 13:00 108 30 111/48 (69) 96 12/18/19 12:30 106 30 102/57 (72) 96 12/18/19 12:00 105 30 110/53 (72) 97 12/18/19 12:00 108 12/18/19 11:30 100 29 113/54 (73) 99 12/18/19 11:00 99 29 113/59 (77) 100 12/18/19 11:00 113/59 12/18/19 11:00 30 Mechanical Ventilator 100 12/18/19 10:55 99 30 80 12/18/19 10:30 101 28 101/47 (65) 100 12/18/19 10:00 100 28 105/49 (67) 100 12/18/19 10:00 105/49 12/18/19 10:00 28 Mechanical Ventilator 100 12/18/19 09:48 26 Mechanical Ventilator 100 12/18/19 09:43 106/47 12/18/19 09:42 106/47 12/18/19 09:30 100 27 106/47 (66) 100 12/18/19 09:00 99/56 12/18/19 09:00 102 32 99/56 (70) 100 12/18/19 08:30 106 33 95/52 (66) 100 12/18/19 08:30 95/52 12/18/19 08:15 97/52 12/18/19 08:00 110 12/18/19 08:00 100 12/18/19 08:00 Mechanical Ventilator 12/18/19 08:00 100.0 112 31 102/38 (59) 100 12/18/19 08:00 102/38 12/18/19 07:45 100/38 12/18/19 07:30 111 35 87/46 (60) 100 12/18/19 07:30 87/46 12/18/19 07:11 114 30 100 12/18/19 07:00 113 30 96/42 (60) 100 12/18/19 07:00 20 Mechanical Ventilator 100 12/18/19 07:00 20 Mechanical Ventilator 100 12/18/19 07:00 96/42 12/18/19 06:33 30 Mechanical Ventilator 100 12/18/19 06:30 114 29 90/47 (61) 100 12/18/19 06:00 113 30 88/44 (59) 100 12/18/19 06:00 30 Mechanical Ventilator 100 12/18/19 06:00 30 Mechanical Ventilator 100 12/18/19 06:00 89/42 12/18/19 05:30 113 30 86/50 (62) 100 12/18/19 05:00 113 31 99/41 (60) 100 12/18/19 05:00 31 Mechanical Ventilator 100 12/18/19 05:00 31 Mechanical Ventilator 100 12/18/19 05:00 89/42 12/18/19 04:45 101 29 100 12/18/19 04:30 112 30 91/52 (65) 100 12/18/19 04:00 100.0 114 31 84/42 (56) 98 12/18/19 04:00 114 12/18/19 04:00 100 12/18/19 04:00 30 Mechanical Ventilator 100 12/18/19 04:00 30 Mechanical Ventilator 100 12/18/19 04:00 85/37 12/18/19 04:00 Mechanical Ventilator 12/18/19 03:30 119 29 86/48 (61) 100 12/18/19 03:00 118 29 91/43 (59) 100 12/18/19 03:00 29 Mechanical Ventilator 100 12/18/19 03:00 29 Mechanical Ventilator 100 12/18/19 03:00 95/41 12/18/19 02:54 103 28 100 12/18/19 02:30 118 31 92/43 (59) 100 12/18/19 02:00 117 31 88/47 (61) 100 12/18/19 02:00 30 Mechanical Ventilator 100 12/18/19 02:00 30 Mechanical Ventilator 100 12/18/19 02:00 89/45 12/18/19 01:30 117 31 81/43 (56) 100 12/18/19 01:00 31 Mechanical Ventilator 100 12/18/19 01:00 31 Mechanical Ventilator 100 12/18/19 01:00 96/48 12/18/19 01:00 116 31 98/46 (63) 100 12/18/19 00:30 115 33 89/45 (60) 100 12/18/19 00:00 Mechanical Ventilator 12/18/19 00:00 100 12/18/19 00:00 100.0 113 32 95/48 (64) 100 12/18/19 00:00 31 Mechanical Ventilator 100 12/18/19 00:00 31 Mechanical Ventilator 100 12/18/19 00:00 98/50 12/18/19 00:00 115 12/17/19 23:30 113 32 108/50 (69) 100 12/17/19 23:01 102 30 100 12/17/19 23:00 32 Mechanical Ventilator 100 12/17/19 23:00 32 Mechanical Ventilator 100 12/17/19 23:00 108/50 12/17/19 23:00 112 31 112/46 (68) 100 12/17/19 22:30 109 32 104/50 (68) 100 12/17/19 22:00 108 32 104/59 (74) 100 12/17/19 22:00 32 Mechanical Ventilator 100 12/17/19 22:00 32 Mechanical Ventilator 100 12/17/19 22:00 100/58 12/17/19 21:30 108 31 117/62 (80) 100 12/17/19 21:00 32 Mechanical Ventilator 100 12/17/19 21:00 32 Mechanical Ventilator 100 12/17/19 21:00 101/54 12/17/19 21:00 107 32 110/48 (68) 100 20 20:30 106 32 109/48 (68) 100 20 20:00 105 32 107/53 (71) 100 5/5/20 20:00 30 Mechanical Ventilator 100 5/5/20 20:00 30 Mechanical Ventilator 100 5/5/20 20:00 108/53 5/5/20 20:00 100 5/5/20 20:00 Mechanical Ventilator 5/5/20 20:00 104 5/5/20 19:30 98.0 104 31 110/54 (72) 100 5/5/20 19:00 103 30 111/55 (73) 100 5/5/20 19:00 30 Endotracheal Tube 100 5/5/20 19:00 30 Endotracheal Tube 100 5/5/20 19:00 111/55 5/5/20 18:40 104 31 100 5/5/20 18:30 102 30 112/58 (76) 100 5/5/20 18:00 100 31 113/54 (73) 99 5/5/20 18:00 30 Endotracheal Tube 100 5/5/20 18:00 30 Endotracheal Tube 100 5/5/20 18:00 111/62 5/5/20 17:30 100 29 89/73 (78) 99 5/5/20 17:00 33 Endotracheal Tube 100 5/5/20 17:00 33 Endotracheal Tube 100 5/5/20 17:00 89/73 5/5/20 17:00 104 27 115/63 (80) 100 5/5/20 17:00 100 29 89/73 (78) 99 5/5/20 16:53 28 Mechanical Ventilator 15.0 100 5/5/20 16:30 96 28 107/57 (74) 100 5/5/20 16:00 97.8 96 27 116/53 (74) 100 5/5/20 16:00 97 5/5/20 16:00 Mechanical Ventilator 5/5/20 16:00 27 Endotracheal Tube 100 5/5/20 16:00 27 Endotracheal Tube 100 5/5/20 16:00 110/58 5/5/20 16:00 100 5/5/20 15:30 95 26 110/59 (76) 100 5/5/20 15:07 95 24 100 5/5/20 15:00 94 20 113/54 (73) 100 5/5/20 15:00 20 Endotracheal Tube 100 5/5/20 15:00 20 Endotracheal Tube 100 5/5/20 15:00 113/54 5/5/20 14:30 93 14 114/54 (74) 100 12/17/19 14:00 90 12 113/56 (75) 100 12/17/19 14:00 12 Endotracheal Tube 100 12/17/19 14:00 12 Endotracheal Tube 100 12/17/19 14:00 110/61 Intake and Output 12/17/19 12/18/19 19:00 07:00 Intake Total 821.39 ml 899.82 ml Output Total 220 ml 100 ml Balance 601.39 ml 799.82 ml Free Water 100 ml IV Total 301.39 ml 514.82 ml Tube Feeding 420 ml 385 ml Output Urine Total 20 ml 0 ml Stool Total 200 ml 100 ml Microbiology Date/Time Source Procedure Growth Status 12/16/19 16:00 Sputum Gram Stain - Final Complete 12/16/19 16:00 Sputum Sputum Culture - Final NORMAL UPPER RESPIRATORY ALISIA PRESENT Complete 12/17/19 00:38 Indwelling Cath Urine Culture - Preliminary NO GROWTH AFTER 24 HOURS Resulted Objective HEAD AND NECK: Orally intubated No JVD LUNGS: Decreased breath sounds. Coarse rhonchi. CARDIOVASCULAR: Tachycardic S1 and S2 with no gallop. ABDOMEN: Soft. EXTREMITIES: 1 plus pitting edema. RFV [place] in place Raul Appiah MD December 18, 2019 13:45
--- NOTE | 2019-12-18 14:19 | NUR ---
CASE MANAGEMENT: REVIEWFULL CODE 12/18/2019 SI: + COVID-19 . BILATERAL PNA . INTUBATED . SEPTIC SHOCK RIGHT FEMORAL TEMP HD CATH PLACEMENT 12/04 100.0 112 31 102/38 100% MECH VENT FIO2 100 IS: IV LEVOPHED Q24HR IV FENTANYL Q24HR IV DIFLUCAN Q24HR IV MEROPENEM Q24HR IV MIDODRINE 10MG TID MIDAZOLAM Q24HR/PRN IV K-DUR NG QD IV PROTONIX QD HD PRN NGT FEEDING \: ICU STATUS DCP: PATIENT IS FROM HOME PLAN: LABS IN AM RECTAL TUBE IN PLACE
--- NOTE | 2019-12-18 16:30 | NUR ---
NURSE NOTES: Called engineering by charge nurse/DARYA Wan to check water pressure. He came he can't go inside room. RN changed metal hose with room 246-J. HD nurse/Hari will try again.
--- NOTE | 2019-12-18 17:55 | Urology Progress Note ---
Assessment/Plan Status: unchanged Assessment/Plan: 1. Phimosis. 2. Retention. 3. Hematuria. 4. Pyuria. 5. Proteinuria. 6. Acute kidney injury. 7. Meatal stenosis. monitor clinically maintain barnes, placed 12/04 hand irrigate PRN monitor urine output and renal fxn consider renal imaging abx as ordered HD per nephrology f/u on urine cx Subjective Allergies: Coded Allergies: No Known Allergies (Unverified , 11/29/19) Subjective remains on vent, still with minimal urine output, HD Objective Last 24 Hour Vital Signs Date Time Temp Pulse Resp B/P (MAP) Pulse Ox O2 Delivery O2 Flow Rate FiO2 12/18/19 16:00 Mechanical Ventilator 12/18/19 16:00 80 12/18/19 15:41 124/60 12/18/19 15:16 106 32 80 12/18/19 14:30 105 32 121/57 (78) 98 12/18/19 14:00 103 22 109/53 (71) 93 12/18/19 13:30 106 30 109/54 (72) 97 12/18/19 13:11 100.0 12/18/19 13:00 108 30 111/48 (69) 96 12/18/19 13:00 111/48 12/18/19 13:00 31 Mechanical Ventilator 80 12/18/19 13:00 31 Mechanical Ventilator 80 12/18/19 12:30 106 30 102/57 (72) 96 12/18/19 12:30 102/57 12/18/19 12:15 106/56 12/18/19 12:00 105 30 110/53 (72) 97 12/18/19 12:00 Mechanical Ventilator 12/18/19 12:00 80 12/18/19 12:00 100.0 105 30 110/53 (72) 97 12/18/19 12:00 110/53 12/18/19 12:00 31 Mechanical Ventilator 80 12/18/19 12:00 31 Mechanical Ventilator 80 12/18/19 12:00 108 12/18/19 11:45 113/47 12/18/19 11:30 113/54 12/18/19 11:30 100 29 113/54 (73) 99 12/18/19 11:15 113/55 12/18/19 11:00 99 29 113/59 (77) 100 12/18/19 11:00 113/59 5 11:00 30 Mechanical Ventilator 80 12/18/19 11:00 30 Mechanical Ventilator 100 12/18/19 10:55 99 30 80 12/18/19 10:30 101 28 101/47 (65) 100 20 10:00 100 28 105/49 (67) 100 12/18/19 10:00 105/49 12/18/19 10:00 28 Mechanical Ventilator 80 12/18/19 10:00 28 Mechanical Ventilator 100 12/18/19 09:48 26 Mechanical Ventilator 100 12/18/19 09:47 28 Mechanical Ventilator 100 12/18/19 09:43 106/47 12/18/19 09:42 106/47 12/18/19 09:30 100 27 106/47 (66) 100 12/18/19 09:00 23 Mechanical Ventilator 100 12/18/19 09:00 23 Mechanical Ventilator 100 12/18/19 09:00 99/56 12/18/19 09:00 102 32 99/56 (70) 100 12/18/19 08:30 106 33 95/52 (66) 100 12/18/19 08:30 95/52 12/18/19 08:15 97/52 12/18/19 08:00 110 12/18/19 08:00 100 12/18/19 08:00 Mechanical Ventilator 12/18/19 08:00 100.0 112 31 102/38 (59) 100 12/18/19 08:00 20 Mechanical Ventilator 100 12/18/19 08:00 20 Mechanical Ventilator 100 12/18/19 08:00 102/38 12/18/19 07:45 100/38 12/18/19 07:30 111 35 87/46 (60) 100 12/18/19 07:30 87/46 12/18/19 07:11 114 30 100 12/18/19 07:00 113 30 96/42 (60) 100 12/18/19 07:00 20 Mechanical Ventilator 100 12/18/19 07:00 20 Mechanical Ventilator 100 12/18/19 07:00 96/42 12/18/19 06:33 30 Mechanical Ventilator 100 12/18/19 06:30 114 29 90/47 (61) 100 12/18/19 06:00 113 30 88/44 (59) 100 12/18/19 06:00 30 Mechanical Ventilator 100 12/18/19 06:00 30 Mechanical Ventilator 100 12/18/19 06:00 89/42 12/18/19 05:30 113 30 86/50 (62) 100 12/18/19 05:00 113 31 99/41 (60) 100 20 05:00 31 Mechanical Ventilator 100 12/18/19 05:00 31 Mechanical Ventilator 100 12/18/19 05:00 89/42 12/18/19 04:45 101 29 100 12/18/19 04:30 112 30 91/52 (65) 100 12/18/19 04:00 100.0 114 31 84/42 (56) 98 12/18/19 04:00 114 12/18/19 04:00 100 12/18/19 04:00 30 Mechanical Ventilator 100 12/18/19 04:00 30 Mechanical Ventilator 100 12/18/19 04:00 85/37 12/18/19 04:00 Mechanical Ventilator 12/18/19 03:30 119 29 86/48 (61) 100 12/18/19 03:00 118 29 91/43 (59) 100 12/18/19 03:00 29 Mechanical Ventilator 100 12/18/19 03:00 29 Mechanical Ventilator 100 12/18/19 03:00 95/41 12/18/19 02:54 103 28 100 12/18/19 02:30 118 31 92/43 (59) 100 12/18/19 02:00 117 31 88/47 (61) 100 12/18/19 02:00 30 Mechanical Ventilator 100 12/18/19 02:00 30 Mechanical Ventilator 100 12/18/19 02:00 89/45 12/18/19 01:30 117 31 81/43 (56) 100 12/18/19 01:00 31 Mechanical Ventilator 100 12/18/19 01:00 31 Mechanical Ventilator 100 12/18/19 01:00 96/48 12/18/19 01:00 116 31 98/46 (63) 100 20 00:30 115 33 89/45 (60) 100 20 00:00 Mechanical Ventilator 12/18/19 00:00 100 12/18/19 00:00 100.0 113 32 95/48 (64) 100 12/18/19 00:00 31 Mechanical Ventilator 100 5/6/20 00:00 31 Mechanical Ventilator 100 5/6/20 00:00 98/50 5/6/20 00:00 115 5/5/20 23:30 113 32 108/50 (69) 100 5/5/20 23:01 102 30 100 5/5/20 23:00 32 Mechanical Ventilator 100 5/5/20 23:00 32 Mechanical Ventilator 100 5/5/20 23:00 108/50 5/5/20 23:00 112 31 112/46 (68) 100 5/5/20 22:30 109 32 104/50 (68) 100 5/5/20 22:00 108 32 104/59 (74) 100 5/5/20 22:00 32 Mechanical Ventilator 100 5/5/20 22:00 32 Mechanical Ventilator 100 5/5/20 22:00 100/58 5/5/20 21:30 108 31 117/62 (80) 100 5/5/20 21:00 32 Mechanical Ventilator 100 5/5/20 21:00 32 Mechanical Ventilator 100 5/5/20 21:00 101/54 5/5/20 21:00 107 32 110/48 (68) 100 5/5/20 20:30 106 32 109/48 (68) 100 5/5/20 20:00 105 32 107/53 (71) 100 5/5/20 20:00 30 Mechanical Ventilator 100 5/5/20 20:00 30 Mechanical Ventilator 100 5/5/20 20:00 108/53 5/5/20 20:00 100 5/5/20 20:00 Mechanical Ventilator 5/5/20 20:00 104 5/5/20 19:30 98.0 104 31 110/54 (72) 100 5/5/20 19:00 103 30 111/55 (73) 100 5/5/20 19:00 30 Endotracheal Tube 100 5/5/20 19:00 30 Endotracheal Tube 100 5/5/20 19:00 111/55 5/5/20 18:40 104 31 100 5/5/20 18:30 102 30 112/58 (76) 100 5/5/20 18:00 100 31 113/54 (73) 99 5/5/20 18:00 30 Endotracheal Tube 100 5/5/20 18:00 30 Endotracheal Tube 100 5/5/20 18:00 111/62 Intake and Output 5/5/20 5/6/20 19:00 07:00 Intake Total 821.39 ml 934.82 ml Output Total 220 ml 100 ml Balance 601.39 ml 834.82 ml Free Water 100 ml IV Total 301.39 ml 514.82 ml Tube Feeding 420 ml 420 ml Output Urine Total 20 ml 0 ml Stool Total 200 ml 100 ml Microbiology Date/Time Source Procedure Growth Status 12/10/19 21:15 Blood Blood Culture - Final NO GROWTH AFTER 5 DAYS Complete 12/16/19 16:00 Sputum Gram Stain - Final Complete 12/16/19 16:00 Sputum Sputum Culture - Final NORMAL UPPER RESPIRATORY ALISIA PRESENT Complete 12/11/19 22:50 Stool Clostridium difficile Toxin Assay - Final Complete 12/17/19 00:38 Indwelling Cath Urine Culture - Preliminary NO GROWTH AFTER 24 HOURS Resulted Current Medications Medications (Trade) Dose Ordered Sig/Vicki Route PRN Reason Start Time Stop Time Status Last Admin Dose Admin Acetaminophen (Tylenol) 650 mg Q4H PRN NG Temp >100.5 12/06/19 14:15 01/05/20 14:14 12/18/19 12:41 Acetaminophen (Tylenol) 650 mg Q4H PRN RECTAL Mild Pain (Pain Scale 1-3) 12/04/19 11:45 01/03/20 11:44 12/06/19 19:17 Chlorhexidine Gluconate (Arely-Hex 2%) 1 applic DAILY@2000 TOPIC 12/05/19 20:00 03/04/20 19:59 12/17/19 21:29 Dextrose (Dextrose 50%) 25 ml Q30M PRN IV Hypoglycemia 11/29/19 14:15 02/27/20 14:14 Dextrose (Dextrose 50%) 50 ml Q30M PRN IV Hypoglycemia 11/29/19 14:15 02/27/20 14:14 Fentanyl Citrate 2500 mcg/Sodium Chloride 250 ml @ 0 mls/hr Q24H IV 12/13/19 00:00 12/20/19 00:00 12/18/19 09:48 Fluconazole/ Sodium Chloride 100 ml @ 100 mls/hr Q24H IV 12/16/19 22:00 12/23/19 21:59 12/17/19 21:30 Folic Acid (Folate) 1 mg DAILY NG 12/18/19 09:00 01/17/20 08:59 12/18/19 08:06 Hydralazine HCl (Apresoline) 10 mg Q4H PRN IV For High Blood Pressure 11/29/19 15:15 02/27/20 15:14 Loperamide HCl (Imodium) 2 mg Q6H PRN NG Diarrhea 12/12/19 12:45 01/11/20 12:44 Meropenem 500 mg/ Sodium Chloride 50 ml @ 100 mls/hr Q24HRS IVPB 12/16/19 21:30 12/21/19 21:29 12/17/19 21:30 Midazolam HCl 100 ml @ 0 mls/hr Q24H PRN IV Restlessness 12/16/19 10:45 03/15/20 10:44 12/18/19 06:33 Midodrine (Pro-Amatine) 10 mg THREE TIMES A DAY ORAL 12/12/19 13:00 03/11/20 12:59 12/18/19 17:47 Norepinephrine Bitartrate 8 mg/ Dextrose 250 ml @ 0 mls/hr Q24H IV 12/18/19 09:00 01/17/20 08:59 12/18/19 15:41 Ondansetron HCl (Zofran) 4 mg Q6H PRN IVP Nausea & Vomiting 11/29/19 14:15 12/29/19 14:14 Pantoprazole (Protonix) 40 mg DAILY IVP 11/30/19 12:15 12/30/19 12:14 12/18/19 08:06 Potassium Chloride (K-Dur) 40 meq TWICE A DAY ORAL 12/11/19 09:30 03/10/20 09:29 12/18/19 08:05 Vancomycin HCl (Vanco rx to dose) 1 ea DAILY PRN MISC Per rx protocol 12/08/19 19:30 01/07/20 19:29 Vitamin B Complex/ Vit C/Folic Acid (Nephrovite) 1 tab DAILY NG 12/16/19 09:00 01/15/20 08:59 12/18/19 08:05 Height (Feet): 5 Height (Inches): 6.00 Weight (Pounds): 162 Objective stable no bleeding at prepuce barnes indwelling, marge urine Kai Berger MD December 18, 2019 17:55
--- NOTE | 2019-12-18 18:05 | NUR ---
NURSE NOTES: All due medication given. Repositioned patient. No distress noted at this time. Kept dry, clean and comfortable.
--- NOTE | 2019-12-18 18:40 | NUR ---
NURSE NOTES: Started dialysis.
--- NOTE | 2019-12-18 19:00 | Infectious Diseases Prog Note ---
Assessment/Plan Assessment/Plan ASSESSMENT AND PLAN: 1. covid-19 virus infection with pna, rule out bacterial pna, sepsis/shock, fevers, leukocytosis vent, respiratory failure, ? 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 - negative - meropenem, vancomycin and diflucan - day # 3 combination - s/p hydroxychloroquine - monitor chest x-ray and labs - f/u cultures ordered - s/p tocilizumab - critical - getting HD - poor prognosis 2. Hypertension. 3. No known allergies. 4. Social history negative. 5. Family history noncontributory. 6. MAR was noted. 7. Case discussed with RN. 8. Continue treatment per primary consultants. Subjective Constitutional: Reports: fever, other - on vent and pressors HEENT: Reports: congestion Respiratory: Reports: shortness of breath Cardiovascular: Reports: other - + pressors Gastrointestinal/Abdominal: Reports: diarrhea, other - + rectal tube Genitourinary: Reports: other - + barnes, + hd Neurologic: Reports: weakness, other - lethargic Psychiatric: Reports: other - NA Skin: Denies: rash Hematologic: Denies: bleeding Musculoskeletal: Reports: other - NA Allergies: Coded Allergies: No Known Allergies (Unverified , 11/29/19) Objective Vital Signs Last 24 Hour Vital Signs Date Time Temp Pulse Resp B/P (MAP) Pulse Ox O2 Delivery O2 Flow Rate FiO2 12/18/19 18:30 81 28 125/61 (82) 100 12/18/19 18:00 87 30 126/61 (82) 100 12/18/19 18:00 85 30 127/63 (84) 99 12/18/19 17:30 89 30 119/58 (78) 100 12/18/19 17:30 90 31 119/58 (78) 100 12/18/19 17:00 96 32 113/61 (78) 99 12/18/19 17:00 95 32 113/61 (78) 100 12/18/19 16:30 101 32 122/51 (74) 98 12/18/19 16:30 103 32 110/57 (74) 98 12/18/19 16:00 Mechanical Ventilator 12/18/19 16:00 98.0 107 32 116/49 (71) 97 20 16:00 107 5/20 16:00 80 520 16:00 104 32 124/47 (72) 97 20 15:41 124/60 20 15:30 106 31 121/49 (73) 99 20 15:30 104 31 107/55 (72) 97 20 15:16 106 32 80 5/20 15:00 104 31 107/55 (72) 97 20 15:00 106 33 109/53 (71) 97 20 14:30 105 32 121/57 (78) 98 20 14:00 103 22 109/53 (71) 93 12/18/19 13:30 106 30 109/54 (72) 97 12/18/19 13:11 100.0 12/18/19 13:00 108 30 111/48 (69) 96 12/18/19 13:00 111/48 12/18/19 13:00 31 Mechanical Ventilator 80 12/18/19 13:00 31 Mechanical Ventilator 80 12/18/19 12:30 106 30 102/57 (72) 96 12/18/19 12:30 102/57 12/18/19 12:15 106/56 12/18/19 12:00 105 30 110/53 (72) 97 12/18/19 12:00 Mechanical Ventilator 12/18/19 12:00 80 12/18/19 12:00 100.0 105 30 110/53 (72) 97 12/18/19 12:00 110/53 12/18/19 12:00 31 Mechanical Ventilator 80 12/18/19 12:00 31 Mechanical Ventilator 80 20 12:00 108 12/18/19 11:45 113/47 20 11:30 113/54 20 11:30 100 29 113/54 (73) 99 20 11:15 113/55 20 11:00 99 29 113/59 (77) 100 20 11:00 113/59 20 11:00 30 Mechanical Ventilator 80 12/18/19 11:00 30 Mechanical Ventilator 100 20 10:55 99 30 80 5/6/20 10:30 101 28 101/47 (65) 100 12/18/19 10:00 100 28 105/49 (67) 100 12/18/19 10:00 105/49 12/18/19 10:00 28 Mechanical Ventilator 80 12/18/19 10:00 28 Mechanical Ventilator 100 12/18/19 09:48 26 Mechanical Ventilator 100 12/18/19 09:47 28 Mechanical Ventilator 100 12/18/19 09:43 106/47 12/18/19 09:42 106/47 12/18/19 09:30 100 27 106/47 (66) 100 12/18/19 09:00 23 Mechanical Ventilator 100 12/18/19 09:00 23 Mechanical Ventilator 100 12/18/19 09:00 99/56 12/18/19 09:00 102 32 99/56 (70) 100 12/18/19 08:30 106 33 95/52 (66) 100 12/18/19 08:30 95/52 12/18/19 08:15 97/52 12/18/19 08:00 110 12/18/19 08:00 100 12/18/19 08:00 Mechanical Ventilator 12/18/19 08:00 100.0 112 31 102/38 (59) 100 12/18/19 08:00 20 Mechanical Ventilator 100 12/18/19 08:00 20 Mechanical Ventilator 100 12/18/19 08:00 102/38 12/18/19 07:45 100/38 12/18/19 07:30 111 35 87/46 (60) 100 12/18/19 07:30 87/46 12/18/19 07:11 114 30 100 12/18/19 07:00 113 30 96/42 (60) 100 12/18/19 07:00 20 Mechanical Ventilator 100 12/18/19 07:00 20 Mechanical Ventilator 100 12/18/19 07:00 96/42 12/18/19 06:33 30 Mechanical Ventilator 100 12/18/19 06:30 114 29 90/47 (61) 100 12/18/19 06:00 113 30 88/44 (59) 100 12/18/19 06:00 30 Mechanical Ventilator 100 12/18/19 06:00 30 Mechanical Ventilator 100 12/18/19 06:00 89/42 12/18/19 05:30 113 30 86/50 (62) 100 5/6/20 05:00 113 31 99/41 (60) 100 20 05:00 31 Mechanical Ventilator 100 12/18/19 05:00 31 Mechanical Ventilator 100 12/18/19 05:00 89/42 5 04:45 101 29 100 20 04:30 112 30 91/52 (65) 100 12/18/19 04:00 100.0 114 31 84/42 (56) 98 12/18/19 04:00 114 12/18/19 04:00 100 12/18/19 04:00 30 Mechanical Ventilator 100 12/18/19 04:00 30 Mechanical Ventilator 100 12/18/19 04:00 85/37 5 04:00 Mechanical Ventilator 12/18/19 03:30 119 29 86/48 (61) 100 12/18/19 03:00 118 29 91/43 (59) 100 12/18/19 03:00 29 Mechanical Ventilator 100 12/18/19 03:00 29 Mechanical Ventilator 100 12/18/19 03:00 95/41 12/18/19 02:54 103 28 100 12/18/19 02:30 118 31 92/43 (59) 100 12/18/19 02:00 117 31 88/47 (61) 100 12/18/19 02:00 30 Mechanical Ventilator 100 12/18/19 02:00 30 Mechanical Ventilator 100 12/18/19 02:00 89/45 12/18/19 01:30 117 31 81/43 (56) 100 20 01:00 31 Mechanical Ventilator 100 12/18/19 01:00 31 Mechanical Ventilator 100 12/18/19 01:00 96/48 12/18/19 01:00 116 31 98/46 (63) 100 20 00:30 115 33 89/45 (60) 100 20 00:00 Mechanical Ventilator 12/18/19 00:00 100 12/18/19 00:00 100.0 113 32 95/48 (64) 100 20 00:00 31 Mechanical Ventilator 100 20 00:00 31 Mechanical Ventilator 100 12/18/19 00:00 98/50 520 00:00 115 5/20 23:30 113 32 108/50 (69) 100 5/5/20 23:01 102 30 100 /20 23:00 32 Mechanical Ventilator 100 20 23:00 32 Mechanical Ventilator 100 20 23:00 108/50 520 23:00 112 31 112/46 (68) 100 5/20 22:30 109 32 104/50 (68) 100 5/20 22:00 108 32 104/59 (74) 100 20 22:00 32 Mechanical Ventilator 100 20 22:00 32 Mechanical Ventilator 100 20 22:00 100/58 520 21:30 108 31 117/62 (80) 100 12/17/19 21:00 32 Mechanical Ventilator 100 12/17/19 21:00 32 Mechanical Ventilator 100 12/17/19 21:00 101/54 520 21:00 107 32 110/48 (68) 100 20 20:30 106 32 109/48 (68) 100 12/17/19 20:00 105 32 107/53 (71) 100 20 20:00 30 Mechanical Ventilator 100 20 20:00 30 Mechanical Ventilator 100 20 20:00 108/53 520 20:00 100 20 20:00 Mechanical Ventilator 20 20:00 104 12/17/19 19:30 98.0 104 31 110/54 (72) 100 20 19:00 103 30 111/55 (73) 100 12/17/19 19:00 30 Endotracheal Tube 100 12/17/19 19:00 30 Endotracheal Tube 100 20 19:00 111/55 Height (Feet): 5 Height (Inches): 6.00 Weight (Pounds): 162 General Appearance: other - on vent HEENT: normocephalic, atraumatic, anicteric, no JVD, other - intubated Respiratory/Chest: crackles/rales, rhonchi - bilaterally Cardiovascular: normal rate, regular rhythm, no gallop/murmur, no JVD Abdomen: normal bowel sounds, soft, non tender, no organomegaly Genitourinary: other - + barnes Extremities: no cyanosis Skin: no rash Neurologic/Psychiatric: other - lethargic, weak Lymphatic: no neck adenopathy Musculoskeletal: no effusion Objective Chest x-ray - 12/02/19 - Procedure: XRAY Chest 1v EXAM: XR Chest, 1 View CLINICAL HISTORY: ABN CHST TECHNIQUE: Frontal view of the chest. COMPARISON: Chest x-ray dated 11/29/19 FINDINGS: Lungs: Persistent diffuse peripheral groundglass opacities, not significantly changed, concerning for pneumonia. Pleural space: Unremarkable. The costophrenic angles are sharp. No visible pneumothorax. Heart: Unremarkable. No cardiomegaly. Mediastinum: Unremarkable. Bones/joints: Mild degenerative changes throughout the visualized spine. Tubes, lines and devices: Telemetry leads overlie the thorax. IMPRESSION: No significant change compared to the prior chest x-ray. Persistent diffuse peripheral groundglass opacities, concerning for pneumonia. Chest x-ray - 12/07/19 - COMPARISON: Chest x-ray 12/06/19 1317 FINDINGS: Lungs: Diffuse bilateral airspace opacities, improved in the left lung and slightly worsened in the right lung. Pleural space: Unremarkable. No pneumothorax. Heart: Mild cardiomegaly. Mediastinum: Unremarkable. Bones/joints: Mild degenerative changes of spine. Tubes, lines and devices: Endotracheal tube and NG tube are stable. IMPRESSION: Diffuse bilateral airspace opacities, improved in the left lung and slightly worsened in the right lung. Chest x-ray - 12/10/19 - Procedure: XRAY Chest 1v Indication: Shortness of breath Technique: One view of the chest Comparison: 12/07/2019 Findings: There is worsening airspace opacity in the bilateral mid and lower lungs. The left hemidiaphragm is obscured, could indicate some pleural fluid. Stable satisfactory positions of endotracheal and nasogastric tubes. Impression: Worsening infiltrates, likely pneumonia, bilaterally Chest x-ray - 12/16/19 - Procedure: XRAY Chest 1v Indication: Shortness of breath Technique: One view of the chest Comparison: 12/15/2019 Findings: Diffuse and extensive bilateral hazy infiltrates are unchanged. Stable position of endotracheal and nasogastric tubes. Normal heart size. Findings are unchanged Impression: Unchanged, over one day, findings as above. Microbiology Date/Time Source Procedure Growth Status 12/10/19 21:15 Blood Blood Culture - Final NO GROWTH AFTER 5 DAYS Complete 12/16/19 16:00 Sputum Gram Stain - Final Complete 12/16/19 16:00 Sputum Sputum Culture - Final NORMAL UPPER RESPIRATORY ALISIA PRESENT Complete 12/11/19 22:50 Stool Clostridium difficile Toxin Assay - Final Complete 12/17/19 00:38 Indwelling Cath Urine Culture - Preliminary NO GROWTH AFTER 24 HOURS Resulted Microbiology Date/Time Source Procedure Growth Status 12/16/19 16:00 Sputum Gram Stain - Final Complete 12/16/19 16:00 Sputum Sputum Culture - Final NORMAL UPPER RESPIRATORY ALISIA PRESENT Complete 12/17/19 00:38 Indwelling Cath Urine Culture - Preliminary NO GROWTH AFTER 24 HOURS Resulted Labs Test 12/16/19 06:10 12/16/19 11:36 12/17/19 06:55 White Blood Count 33.5 K/UL (4.8-10.8) 27.4 K/UL (4.8-10.8) Red Blood Count 3.35 M/UL (4.70-6.10) 3.38 M/UL (4.70-6.10) Hemoglobin 9.9 G/DL (14.2-18.0) 10.3 G/DL (14.2-18.0) Hematocrit 31.2 % (42.0-52.0) 31.6 % (42.0-52.0) Mean Corpuscular Volume 93 FL (80-99) 94 FL (80-99) Mean Corpuscular Hemoglobin 29.7 PG (27.0-31.0) 30.5 PG (27.0-31.0) Mean Corpuscular Hemoglobin Concent 31.9 G/DL (32.0-36.0) 32.5 G/DL (32.0-36.0) Red Cell Distribution Width 13.7 % (11.6-14.8) 14.2 % (11.6-14.8) Platelet Count 169 K/UL (150-450) 179 K/UL (150-450) Mean Platelet Volume 8.4 FL (6.5-10.1) 7.4 FL (6.5-10.1) Neutrophils (%) (Auto) % (45.0-75.0) % (45.0-75.0) Lymphocytes (%) (Auto) % (20.0-45.0) % (20.0-45.0) Monocytes (%) (Auto) % (1.0-10.0) % (1.0-10.0) Eosinophils (%) (Auto) % (0.0-3.0) % (0.0-3.0) Basophils (%) (Auto) % (0.0-2.0) % (0.0-2.0) Differential Total Cells Counted 100 100 Neutrophils % (Manual) 79 % (45-75) 88 % (45-75) Lymphocytes % (Manual) 4 % (20-45) 6 % (20-45) Monocytes % (Manual) 8 % (1-10) 6 % (1-10) Eosinophils % (Manual) 0 % (0-3) 0 % (0-3) Basophils % (Manual) 0 % (0-2) 0 % (0-2) Metamyelocytes % 2 % (0-0) Band Neutrophils 7 % (0-8) 0 % (0-8) Platelet Estimate Adequate Adequate Platelet Morphology Normal Normal Hypochromasia 2+ 1+ Anisocytosis 1+ 1+ Sodium Level 138 MMOL/L (136-145) 142 MMOL/L (136-145) Potassium Level 3.8 MMOL/L (3.5-5.1) 4.2 MMOL/L (3.5-5.1) Chloride Level 100 MMOL/L (98-107) 105 MMOL/L (98-107) Carbon Dioxide Level 33 MMOL/L (21-32) 30 MMOL/L (21-32) Anion Gap 5 mmol/L (5-15) 7 mmol/L (5-15) Blood Urea Nitrogen 52 mg/dL (7-18) 82 mg/dL (7-18) Creatinine 4.0 MG/DL (0.55-1.30) 3.9 MG/DL (0.55-1.30) Estimat Glomerular Filtration Rate 15.5 mL/min (>60) 16.0 mL/min (>60) Glucose Level 154 MG/DL (74-106) 123 MG/DL (74-106) Calcium Level 9.3 MG/DL (8.5-10.1) 10.2 MG/DL (8.5-10.1) Iron Level 23 ug/dL (50-175) Total Iron Binding Capacity 180 ug/dL (250-450) Percent Iron Saturation 13 % (15-50) Unsaturated Iron Binding 157 ug/dL (112-346) Ferritin 783 NG/ML (8-388) Total Bilirubin 0.8 MG/DL (0.2-1.0) 0.7 MG/DL (0.2-1.0) Aspartate Amino Transf (AST/SGOT) 46 U/L (15-37) 40 U/L (15-37) Alanine Aminotransferase (ALT/SGPT) 61 U/L (12-78) 53 U/L (12-78) Alkaline Phosphatase 253 U/L (46-116) 235 U/L (46-116) Total Protein 6.0 G/DL (6.4-8.2) 6.0 G/DL (6.4-8.2) Albumin 2.7 G/DL (3.4-5.0) 2.6 G/DL (3.4-5.0) Globulin 3.3 g/dL 3.4 g/dL Albumin/Globulin Ratio 0.8 (1.0-2.7) 0.8 (1.0-2.7) Carcinoembryonic Antigen 11.3 ng/mL (0.0-4.7) Vitamin B12 Level 1619 PG/ML (193-986) Folate 6.8 NG/ML (8.6-58.9) Thyroid Stimulating Hormone (TSH) 2.541 uiU/mL (0.358-3.740) Arterial Blood pH 7.226 (7.350-7.450) Arterial Blood Partial Pressure CO2 80.7 mmHg (35.0-45.0) Arterial Blood Partial Pressure O2 114.6 mmHg (75.0-100.0) Arterial Blood HCO3 32.7 mmol/L (22.0-26.0) Arterial Blood Oxygen Saturation 97.4 % (95-100) Arterial Blood Base Excess 3.3 (-2-2) Melecio Test Positive Random Vancomycin Level 11.6 ug/mL Current Medications Medications (Trade) Dose Ordered Sig/Vicki Route PRN Reason Start Time Stop Time Status Last Admin Dose Admin Acetaminophen (Tylenol) 650 mg Q4H PRN NG Temp >100.5 12/06/19 14:15 01/05/20 14:14 12/18/19 12:41 Acetaminophen (Tylenol) 650 mg Q4H PRN RECTAL Mild Pain (Pain Scale 1-3) 12/04/19 11:45 01/03/20 11:44 12/06/19 19:17 Chlorhexidine Gluconate (Arely-Hex 2%) 1 applic DAILY@2000 TOPIC 12/05/19 20:00 03/04/20 19:59 12/17/19 21:29 Dextrose (Dextrose 50%) 25 ml Q30M PRN IV Hypoglycemia 11/29/19 14:15 02/27/20 14:14 Dextrose (Dextrose 50%) 50 ml Q30M PRN IV Hypoglycemia 11/29/19 14:15 02/27/20 14:14 Fentanyl Citrate 2500 mcg/Sodium Chloride 250 ml @ 0 mls/hr Q24H IV 12/13/19 00:00 12/20/19 00:00 12/18/19 09:48 Fluconazole/ Sodium Chloride 100 ml @ 100 mls/hr Q24H IV 12/16/19 22:00 12/23/19 21:59 12/17/19 21:30 Folic Acid (Folate) 1 mg DAILY NG 12/18/19 09:00 01/17/20 08:59 12/18/19 08:06 Hydralazine HCl (Apresoline) 10 mg Q4H PRN IV For High Blood Pressure 11/29/19 15:15 02/27/20 15:14 Loperamide HCl (Imodium) 2 mg Q6H PRN NG Diarrhea 12/12/19 12:45 01/11/20 12:44 Meropenem 500 mg/ Sodium Chloride 50 ml @ 100 mls/hr Q24HRS IVPB 12/16/19 21:30 12/21/19 21:29 12/17/19 21:30 Midazolam HCl 100 ml @ 0 mls/hr Q24H PRN IV Restlessness 12/16/19 10:45 03/15/20 10:44 12/18/19 06:33 Midodrine (Pro-Amatine) 10 mg THREE TIMES A DAY ORAL 12/12/19 13:00 03/11/20 12:59 12/18/19 17:47 Norepinephrine Bitartrate 8 mg/ Dextrose 250 ml @ 0 mls/hr Q24H IV 12/18/19 09:00 01/17/20 08:59 12/18/19 15:41 Ondansetron HCl (Zofran) 4 mg Q6H PRN IVP Nausea & Vomiting 11/29/19 14:15 12/29/19 14:14 Pantoprazole (Protonix) 40 mg DAILY IVP 11/30/19 12:15 12/30/19 12:14 12/18/19 08:06 Potassium Chloride (K-Dur) 40 meq TWICE A DAY ORAL 12/11/19 09:30 03/10/20 09:29 12/18/19 08:05 Vancomycin HCl (Vanco rx to dose) 1 ea DAILY PRN MISC Per rx protocol 12/08/19 19:30 01/07/20 19:29 Vitamin B Complex/ Vit C/Folic Acid (Nephrovite) 1 tab DAILY NG 12/16/19 09:00 01/15/20 08:59 12/18/19 08:05 Ilsa Rodriguez MD December 18, 2019 19:00
--- NOTE | 2019-12-18 19:21 | NUR ---
HAND-OFF: Report given to DARYA Delgado. Endorsed plan of care.
--- NOTE | 2019-12-18 19:30 | NUR ---
NURSE NOTES: Received pt in no acute distress; calm, asleep, sedated. Currently undergoing hemodialysis. Tolerating HD so far per HD RN. VSS. Still orally intubated and saturating 100% on .80 fiO2. Secretions pinkish occasionally blood tinged via oral suction. HOB elevated. TF with Nepro continues at 35ml/ via LNGT. Rectal tube intact, draining small amt of brown liquid stools. FC still patent but currently anuric. Cooling blanket continues underneath pt,. Current temp 98.5 rectally. Versed gtt continues at 5mg/h and Fentanyl gtt at 150mcg/h to RASS-2, Levophed gtt infuses at 12mcg/min. Will continue to monitor.
[2019-12-18] MEDS: Dyna-Hex 2% Top Sol 2oz TOPIC SCH (20:16)
--- NOTE | 2019-12-18 22:40 | NUR ---
NURSE NOTES: HD treatment completed; well tolerated as endorsed by JAIRN, UF-2l. Pt's VSS,
[2019-12-19] VITALS (51 sets, daily range): BP systolic 88–132; BP diastolic 46–66
--- NOTE | 2019-12-19 | NUR ---
NURSE NOTES: Calm, asleerp, sedated; VSS, afebrile, no distress
--- NOTE | 2019-12-19 02:00 | NUR ---
NURSE NOTES: HOB elevated, VSS, no distress. Sleeping. Levophed gtt continues at 12mcg/min. Versed gtt at 5mg/h and Fentanyl gtt at 150mcg/h continues to RASS-2
[2019-12-19] MEDS: fentaNYL Citrate 2,500 MCG in NS 200 ML IV SCH ×2 (02:06→18:41)
--- NOTE | 2019-12-19 04:00 | NUR ---
NURSE NOTES: complete bed bath done, oral care and suctioning done. Rectal tube intact; irrigated. Tolerating current vent parameters and TF. Afebrile. Complete linen changed, removed cooling blanket due to leak. Pt afebrile at this point, kept cooling machine on monitor mode only. Pt remains calm, asleep and sedated. Will continue to monitor; VSS
[2019-12-19 06:00] LABS: HEMATOCRIT 28.6 % (42.0-52.0); HEMOGLOBIN 9.3 G/DL (14.2-18.0); MEAN CORPUSCULAR VOLUME 94 FL (80-99); PLATELET COUNT 154 K/UL (150-450); RED BLOOD COUNT 3.05 M/UL (4.70-6.10); RED CELL DISTRIBUTION WIDTH 14.1 % (11.6-14.8)
[2019-12-19 06:32] LABS: WHITE BLOOD COUNT 27.8 K/UL (4.8-10.8)
[2019-12-19 06:33] LABS: ANION GAP 7 mmol/L (5-15); BLOOD UREA NITROGEN 57 mg/dL (7-18); CARBON DIOXIDE 32 MMOL/L (21-32); CHLORIDE 97 MMOL/L (98-107); CREATININE 3.6 MG/DL (0.55-1.30); POTASSIUM 5.4 MMOL/L (3.5-5.1); SODIUM 136 MMOL/L (136-145)
--- NOTE | 2019-12-19 07:02 | NUR ---
HAND-OFF: Report given to DARYA Blue.
--- NOTE | 2019-12-19 07:15 | NUR ---
NURSE NOTES: Received report from DARYA Delgado. Patient is sedated. ETT 8/24cm at lip line with vent setting AC 20, VT 500, Peep 5 and FiO2 80%. O2 Sat 100% on the monitor. Left NGT intact running Nepro 35ml/hr. Joe intact and patent. Right femoral jia cath with pigtail intact and running with levophed 12mcg/min, versed 5mg/hr and fentanyl 150mcg/hr to meet RASS -2. Kept dry, clean, comfortable and HOB>30. Continue plan of care.
[2019-12-19] MEDS: Midodrine 10mg tab ORAL SCH ×3 (08:07→17:12)
[2019-12-19] MEDS: Nephrovite tab (Rena-Vite) NG SCH (08:07)
[2019-12-19] MEDS: Pantoprazole Inj IVP SCH (08:07)
--- NOTE | 2019-12-19 08:10 | NUR ---
RD ASSESSMENT & RECOMMENDATIONS SEE CARE ACTIVITY FOR COMPLETE ASSESSMENT DAILY ESTIMATED NEEDS: Needs based on Critical care 68.4kg abw 22-28 kcals/kg 1016-1059 total kcals 1.2-2 g protein/kg 82-137 g total protein 25-30 mL/kg 9056-1815 total fluid mLs NUTRITION DIAGNOSIS: Altered nutrition related lab values r/t clinical status as evidenced by mildly elev BG (131, 151), elev T bili and LFTs, trending down, elev WBC (33.5*), febrile, critical ABG, now s/p intubation on pressor support, NGT feeds.. CURRENT TF:Nepro @35ml/hr x24 hrs ENTERAL NUTRITION RECOMMENDATIONS: Nepro @35ml/hr x24 hrs + Prosource BID to provide 840ml, 1512 kcal, 68g + 22g pro, 611ml free H2O - WITH HEMODYNAMIC STABILITY, maintain current TF - When Tolerating TF at goal of 35ml/hr and Prosource in stock, rec to add Prosource BID to better meet protein needs. Will provide additional 22g pro. - Flush per MD/ HOB over 30 degrees. -> Without hemodynamic stability, rec trophic feeds to maintain gut integrity, rec Nepro @5-10ml/hr as able. ADDITIONAL RECOMMENDATIONS: 1) Monitor hemodynamic stability: on Levo @12 2) Wound care: add CLAUDIO BID 3) NISS w/ TF (elev BGs), now <150. 4) Maintain calibrated bed scale wts 5) Monitor for continuity of HD: last HD / 6) HOLD TF WHILE PT ON PRONE POSITION TO PREVENT ASPIRATION -> monitor TF held time, need to adjust TF rate to meet nutritional needs
--- NOTE | 2019-12-19 08:41 | NUR ---
NURSE NOTES: Due medications given. Held KCL d/t K 5.4. Collected blood for Vanco random and sent to lab. Will continue plan of care.
--- NOTE | 2019-12-19 09:31 | Hematology/Onc Progress Note ---
Assessment/Plan Assessment/Plan # Leukocytosis/elevated white blood cell count, unspecified likely related to underlying stress reaction and addition of infection, covid19++ on vent, intubated --> have reviewed peripheral smear and bandemia/neutrophilia noted --> continue antibiotics if they have been started by ID team --> on broad spectrum abx cefepime/flag/vanc-->katie/vanc --> monitor for resolution --> smear is noted, with metamyelocytes --> wbc trend 18-->24-->32.9-->34k-->27 --> ID is aware --> again ordered peripheral smear for path review-->reviewed and no blasts noted # Anemia of chronic disease due to underlying chronic medical issues, multifactorial v Gi bleed --> Anemia workup has been ordered, rule out gi bleed --> No evidence of hemolysis is noted, peripheral smear has been reviewed. --> Hgb goal >7. Transfuse prn. --> Epogen or iron at this time is not particularly indicated --> Medications have been reviewed --> low threshold for gi evaluation in case has occult + ==> hgb trend 11-->10.7-->10.4-->9.3 # Thrombocytopenia also likely covid related --> supportive care --> plt 149-->164k-->154 # Acute Hypoxic Respiratory Failure s/p intubation --> now on vent --> as per Dr. Cortes, weaning prn # COVID19 positive --> abx # Pneumomediastinum --> monitor for expansion # Subcutaneous emphysema --> too high risk for bedside thoracostomy # ALBARO on ckd --> hd as needed --> per renal # femoral HD cath placed 12/04 --> hd prn # Dvt ppx scds DW Rn and appreciate consultation Subjective HEENT: Denies: no symptoms, eye pain, blurred vision, tearing, double vision, ear pain, ear discharge, nose pain, nose congestion, throat pain, throat swelling, mouth pain, mouth swelling, other Cardiovascular: Denies: no symptoms, chest pain, edema, irregular heart rate, lightheadedness, palpitations, syncope, other Respiratory: Denies: no symptoms, cough, shortness of breath, SOB with excertion, SOB at rest, sputum, wheezing, other Gastrointestinal/Abdominal: Denies: no symptoms, abdomen distended, abdominal pain, black stools, tarry stools, blood in stool, constipated, diarrhea, difficulty swallowing, nausea, poor appetite, poor fluid intake, rectal bleeding , vomiting, other Genitourinary: Denies: no symptoms, burning, discharge, frequency, flank pain, hematuria, incontinence, pain, urgency, other Endocrine: Denies: no symptoms, excessive sweating, flushing, intolerance to cold, intolerance to heat, increased hunger, increased thirst, increased urine, unexplained weight gain, unexplained weight loss, other Allergies: Coded Allergies: No Known Allergies (Unverified , 11/29/19) Subjective 12/12 remains on vent, ogtube, barnes and rectal tube emptied, right fem jia line 12/14 icu, prone, levo gtt, multiple abx, labs reviewed 12/15 nonv, no bleeding, remains in vent, no bleeding, wbc high, on abx per id 12/16 nonv, on vent, ng, rectal tube, wbc still 34k 12/17 icu, levo gtt, on katie/vanc, tachy 12/18 in icu, on ng tube feeds, vent, no bleeding, jia in place Objective Objective Current Medications Medications (Trade) Dose Ordered Sig/Vicki Route PRN Reason Start Time Stop Time Status Last Admin Dose Admin Acetaminophen (Tylenol) 650 mg Q4H PRN NG Temp >100.5 12/06/19 14:15 01/05/20 14:14 12/18/19 12:41 Acetaminophen (Tylenol) 650 mg Q4H PRN RECTAL Mild Pain (Pain Scale 1-3) 12/04/19 11:45 01/03/20 11:44 12/06/19 19:17 Chlorhexidine Gluconate (Arely-Hex 2%) 1 applic DAILY@2000 TOPIC 12/05/19 20:00 03/04/20 19:59 12/18/19 20:16 Dextrose (Dextrose 50%) 25 ml Q30M PRN IV Hypoglycemia 11/29/19 14:15 02/27/20 14:14 Dextrose (Dextrose 50%) 50 ml Q30M PRN IV Hypoglycemia 11/29/19 14:15 02/27/20 14:14 Fentanyl Citrate 2500 mcg/Sodium Chloride 250 ml @ 0 mls/hr Q24H IV 12/13/19 00:00 12/20/19 00:00 12/19/19 02:06 Fluconazole/ Sodium Chloride 100 ml @ 100 mls/hr Q24H IV 12/16/19 22:00 12/23/19 21:59 12/18/19 22:50 Folic Acid (Folate) 1 mg DAILY NG 12/18/19 09:00 01/17/20 08:59 12/19/19 08:07 Hydralazine HCl (Apresoline) 10 mg Q4H PRN IV For High Blood Pressure 11/29/19 15:15 02/27/20 15:14 Loperamide HCl (Imodium) 2 mg Q6H PRN NG Diarrhea 12/12/19 12:45 01/11/20 12:44 Meropenem 500 mg/ Sodium Chloride 50 ml @ 100 mls/hr Q24HRS IVPB 12/16/19 21:30 12/21/19 21:29 12/18/19 22:10 Midazolam HCl 100 ml @ 0 mls/hr Q24H PRN IV Restlessness 12/16/19 10:45 03/15/20 10:44 12/19/19 02:03 Midodrine (Pro-Amatine) 10 mg THREE TIMES A DAY ORAL 12/12/19 13:00 03/11/20 12:59 12/19/19 08:07 Norepinephrine Bitartrate 8 mg/ Dextrose 250 ml @ 0 mls/hr Q24H IV 12/18/19 09:00 01/17/20 08:59 12/19/19 02:08 Ondansetron HCl (Zofran) 4 mg Q6H PRN IVP Nausea & Vomiting 11/29/19 14:15 12/29/19 14:14 Pantoprazole (Protonix) 40 mg DAILY IVP 11/30/19 12:15 12/30/19 12:14 12/19/19 08:07 Potassium Chloride (K-Dur) 40 meq TWICE A DAY ORAL 12/11/19 09:30 03/10/20 09:29 12/18/19 08:05 Vancomycin HCl (Vanco rx to dose) 1 ea DAILY PRN MISC Per rx protocol 12/08/19 19:30 01/07/20 19:29 Vancomycin HCl 750 mg/Sodium Chloride 275 ml @ 183.333 mls/hr ONCE ONCE IVPB 12/19/19 11:00 12/19/19 12:29 Vitamin B Complex/ Vit C/Folic Acid (Nephrovite) 1 tab DAILY NG 12/16/19 09:00 01/15/20 08:59 12/19/19 08:07 Last 24 Hour Vital Signs Date Time Temp Pulse Resp B/P (MAP) Pulse Ox O2 Delivery O2 Flow Rate FiO2 12/19/19 07:02 86 27 80 12/19/19 06:30 85 19 111/56 (74) 99 12/19/19 06:00 85 22 103/60 (74) 99 12/19/19 06:00 103/60 12/19/19 06:00 19 Mechanical Ventilator 80 12/19/19 06:00 19 Mechanical Ventilator 80 12/19/19 05:30 87 22 106/60 (75) 98 12/19/19 05:00 112/53 12/19/19 05:00 19 Mechanical Ventilator 80 12/19/19 05:00 19 Mechanical Ventilator 80 12/19/19 05:00 87 19 112/53 (72) 99 12/19/19 04:30 87 21 104/57 (73) 99 12/19/19 04:00 87 18 107/58 (74) 99 12/19/19 04:00 Mechanical Ventilator 12/19/19 04:00 107/58 12/19/19 04:00 18 Mechanical Ventilator 80 12/19/19 04:00 18 Mechanical Ventilator 80 12/19/19 04:00 88 12/19/19 04:00 80 12/19/19 03:30 97.6 91 19 108/54 (72) 100 12/19/19 03:21 82 32 80 12/19/19 03:00 107/56 12/19/19 03:00 20 Mechanical Ventilator 80 12/19/19 03:00 20 Mechanical Ventilator 80 12/19/19 03:00 92 20 107/56 (73) 100 12/19/19 02:30 93 15 110/56 (74) 98 12/19/19 02:08 102/51 12/19/19 02:06 24 Mechanical Ventilator 80 12/19/19 02:03 24 Mechanical Ventilator 80 12/19/19 02:00 95 23 102/51 (68) 100 12/19/19 02:00 102/51 12/19/19 02:00 23 Mechanical Ventilator 80 12/19/19 02:00 23 Mechanical Ventilator 80 12/19/19 01:30 96 24 104/49 (67) 100 12/19/19 01:00 98 24 101/55 (70) 99 12/19/19 01:00 101/58 12/19/19 01:00 27 Mechanical Ventilator 80 12/19/19 01:00 27 Mechanical Ventilator 80 12/19/19 00:30 99 25 109/51 (70) 99 12/19/19 00:00 99 12/19/19 00:00 Mechanical Ventilator 12/19/19 00:00 80 12/19/19 00:00 106/58 12/19/19 00:00 27 Mechanical Ventilator 80 12/19/19 00:00 27 Mechanical Ventilator 80 12/19/19 00:00 97.7 101 25 106/58 (74) 100 12/18/19 23:30 102 25 101/53 (69) 99 12/18/19 23:25 98 20 80 12/18/19 23:00 102 20 106/52 (70) 100 12/18/19 23:00 106/52 12/18/19 23:00 20 Mechanical Ventilator 80 12/18/19 23:00 20 Mechanical Ventilator 80 12/18/19 22:30 98 20 108/62 (77) 100 12/18/19 22:00 97 21 100/61 (74) 100 12/18/19 22:00 100/61 12/18/19 22:00 21 Mechanical Ventilator 80 12/18/19 22:00 21 Mechanical Ventilator 80 12/18/19 21:30 99 20 98/57 (71) 100 12/18/19 21:00 101/60 12/18/19 21:00 20 Mechanical Ventilator 80 12/18/19 21:00 20 Mechanical Ventilator 80 12/18/19 21:00 102 22 98/56 (70) 98 12/18/19 20:30 105 27 101/49 (66) 93 12/18/19 20:00 102 24 102/53 (69) 90 12/18/19 20:00 80 12/18/19 20:00 102/53 12/18/19 20:00 27 Mechanical Ventilator 80 12/18/19 20:00 27 Mechanical Ventilator 80 5/6/20 20:00 104 5/6/20 20:00 Mechanical Ventilator 520 19:33 81 32 80 5//20 19:30 94 29 117/53 (74) 94 /20 19:00 98.5 82 30 116/58 (77) 99 5/6/20 19:00 116/58 5/6/20 19:00 30 Mechanical Ventilator 80 5/20 19:00 30 Mechanical Ventilator 80 20 18:30 81 28 125/61 (82) 100 5/6/20 18:00 87 30 126/61 (82) 100 5/6/20 18:00 127/63 5/20 18:00 31 Mechanical Ventilator 80 20 18:00 31 Mechanical Ventilator 80 20 18:00 85 30 127/63 (84) 99 //20 17:30 89 30 119/58 (78) 100 5//20 17:30 90 31 119/58 (78) 100 //20 17:00 96 32 113/61 (78) 99 20 17:00 95 32 113/61 (78) 100 5/20 17:00 113/61 20 17:00 32 Mechanical Ventilator 80 12/18/19 17:00 32 Mechanical Ventilator 80 20 16:30 101 32 122/51 (74) 98 //20 16:30 103 32 110/57 (74) 98 5//20 16:00 Mechanical Ventilator 12/18/19 16:00 98.0 107 32 116/49 (71) 97 20 16:00 116/49 20 16:00 32 Mechanical Ventilator 80 20 16:00 32 Mechanical Ventilator 80 20 16:00 107 //20 16:00 80 /20 16:00 104 32 124/47 (72) 97 5/20 15:41 124/60 5//20 15:40 107/55 5//20 15:30 106 31 121/49 (73) 99 5/6/20 15:30 104 31 107/55 (72) 97 5//20 15:16 106 32 80 5/20 15:00 104 31 107/55 (72) 97 5/20 15:00 109/53 5/20 15:00 33 Mechanical Ventilator 80 20 15:00 33 Mechanical Ventilator 80 20 15:00 106 33 109/53 (71) 97 5/20 14:30 105 32 121/57 (78) 98 5//20 14:00 103 22 109/53 (71) 93 20 14:00 114/54 520 14:00 30 Mechanical Ventilator 100 20 14:00 30 Mechanical Ventilator 100 20 13:30 106 30 109/54 (72) 97 20 13:11 100.0 12/18/19 13:00 108 30 111/48 (69) 96 12/18/19 13:00 111/48 12/18/19 13:00 31 Mechanical Ventilator 80 12/18/19 13:00 31 Mechanical Ventilator 80 12/18/19 12:30 106 30 102/57 (72) 96 20 12:30 102/57 20 12:15 106/56 20 12:00 105 30 110/53 (72) 97 20 12:00 Mechanical Ventilator 12/18/19 12:00 80 12/18/19 12:00 100.0 105 30 110/53 (72) 97 20 12:00 110/53 20 12:00 31 Mechanical Ventilator 80 12/18/19 12:00 31 Mechanical Ventilator 80 12/18/19 12:00 108 12/18/19 11:45 113/47 520 11:30 113/54 5/20 11:30 100 29 113/54 (73) 99 5//20 11:15 113/55 5/6/20 11:00 99 29 113/59 (77) 100 20 11:00 113/59 5/20 11:00 30 Mechanical Ventilator 80 20 11:00 30 Mechanical Ventilator 100 20 10:55 99 30 80 5//20 10:30 101 28 101/47 (65) 100 520 10:00 100 28 105/49 (67) 100 5/6/20 10:00 105/49 12/18/19 10:00 28 Mechanical Ventilator 80 12/18/19 10:00 28 Mechanical Ventilator 100 12/18/19 09:48 26 Mechanical Ventilator 100 12/18/19 09:47 28 Mechanical Ventilator 100 12/18/19 09:43 106/47 12/18/19 09:42 106/47 12/18/19 09:30 100 27 106/47 (66) 100 12/18/19 09:00 23 Mechanical Ventilator 100 12/18/19 09:00 23 Mechanical Ventilator 100 12/18/19 09:00 99/56 12/18/19 09:00 102 32 99/56 (70) 100 12/18/19 08:30 106 33 95/52 (66) 100 12/18/19 08:30 95/52 12/18/19 08:15 97/52 12/18/19 08:00 110 12/18/19 08:00 100 12/18/19 08:00 Mechanical Ventilator 12/18/19 08:00 100.0 112 31 102/38 (59) 100 12/18/19 08:00 20 Mechanical Ventilator 100 12/18/19 08:00 20 Mechanical Ventilator 100 12/18/19 08:00 102/38 12/18/19 07:45 100/38 12/18/19 07:30 111 35 87/46 (60) 100 12/18/19 07:30 87/46 12/18/19 07:11 114 30 100 12/18/19 07:00 113 30 96/42 (60) 100 12/18/19 07:00 20 Mechanical Ventilator 100 12/18/19 07:00 20 Mechanical Ventilator 100 12/18/19 07:00 96/42 12/18/19 06:33 30 Mechanical Ventilator 100 12/18/19 06:30 114 29 90/47 (61) 100 12/18/19 06:00 113 30 88/44 (59) 100 12/18/19 06:00 30 Mechanical Ventilator 100 12/18/19 06:00 30 Mechanical Ventilator 100 12/18/19 06:00 89/42 12/18/19 05:30 113 30 86/50 (62) 100 12/18/19 05:00 113 31 99/41 (60) 100 12/18/19 05:00 31 Mechanical Ventilator 100 12/18/19 05:00 31 Mechanical Ventilator 100 12/18/19 05:00 89/42 12/18/19 04:45 101 29 100 12/18/19 04:30 112 30 91/52 (65) 100 12/18/19 04:00 100.0 114 31 84/42 (56) 98 12/18/19 04:00 114 12/18/19 04:00 100 12/18/19 04:00 30 Mechanical Ventilator 100 12/18/19 04:00 30 Mechanical Ventilator 100 12/18/19 04:00 85/37 12/18/19 04:00 Mechanical Ventilator 12/18/19 03:30 119 29 86/48 (61) 100 12/18/19 03:00 118 29 91/43 (59) 100 12/18/19 03:00 29 Mechanical Ventilator 100 12/18/19 03:00 29 Mechanical Ventilator 100 12/18/19 03:00 95/41 12/18/19 02:54 103 28 100 12/18/19 02:30 118 31 92/43 (59) 100 12/18/19 02:00 117 31 88/47 (61) 100 12/18/19 02:00 30 Mechanical Ventilator 100 12/18/19 02:00 30 Mechanical Ventilator 100 12/18/19 02:00 89/45 12/18/19 01:30 117 31 81/43 (56) 100 12/18/19 01:00 31 Mechanical Ventilator 100 12/18/19 01:00 31 Mechanical Ventilator 100 12/18/19 01:00 96/48 12/18/19 01:00 116 31 98/46 (63) 100 12/18/19 00:30 115 33 89/45 (60) 100 12/18/19 00:00 Mechanical Ventilator 12/18/19 00:00 100 12/18/19 00:00 100.0 113 32 95/48 (64) 100 12/18/19 00:00 31 Mechanical Ventilator 100 12/18/19 00:00 31 Mechanical Ventilator 100 12/18/19 00:00 98/50 520 00:00 115 12/17/19 23:30 113 32 108/50 (69) 100 12/17/19 23:01 102 30 100 12/17/19 23:00 32 Mechanical Ventilator 100 12/17/19 23:00 32 Mechanical Ventilator 100 5/5/20 23:00 108/50 5/5/20 23:00 112 31 112/46 (68) 100 5/5/20 22:30 109 32 104/50 (68) 100 5/5/20 22:00 108 32 104/59 (74) 100 5/5/20 22:00 32 Mechanical Ventilator 100 5/5/20 22:00 32 Mechanical Ventilator 100 5/5/20 22:00 100/58 5/5/20 21:30 108 31 117/62 (80) 100 5/5/20 21:00 32 Mechanical Ventilator 100 5/5/20 21:00 32 Mechanical Ventilator 100 5/5/20 21:00 101/54 5/5/20 21:00 107 32 110/48 (68) 100 5/5/20 20:30 106 32 109/48 (68) 100 5/5/20 20:00 105 32 107/53 (71) 100 5/5/20 20:00 30 Mechanical Ventilator 100 5/5/20 20:00 30 Mechanical Ventilator 100 5/5/20 20:00 108/53 5/5/20 20:00 100 5/5/20 20:00 Mechanical Ventilator 5/5/20 20:00 104 5/5/20 19:30 98.0 104 31 110/54 (72) 100 5/5/20 19:00 103 30 111/55 (73) 100 5/5/20 19:00 30 Endotracheal Tube 100 5/5/20 19:00 30 Endotracheal Tube 100 5/5/20 19:00 111/55 5/5/20 18:40 104 31 100 5/5/20 18:30 102 30 112/58 (76) 100 5/5/20 18:00 100 31 113/54 (73) 99 5/5/20 18:00 30 Endotracheal Tube 100 5/5/20 18:00 30 Endotracheal Tube 100 5/5/20 18:00 111/62 5/5/20 17:30 100 29 89/73 (78) 99 5/5/20 17:00 33 Endotracheal Tube 100 5/5/20 17:00 33 Endotracheal Tube 100 5/5/20 17:00 89/73 5/5/20 17:00 104 27 115/63 (80) 100 5/5/20 17:00 100 29 89/73 (78) 99 5/5/20 16:53 28 Mechanical Ventilator 15.0 100 5/20 16:30 96 28 107/57 (74) 100 5/20 16:00 97.8 96 27 116/53 (74) 100 5/20 16:00 97 5/20 16:00 Mechanical Ventilator 12/17/19 16:00 27 Endotracheal Tube 100 520 16:00 27 Endotracheal Tube 100 520 16:00 110/58 520 16:00 100 20 15:30 95 26 110/59 (76) 100 20 15:07 95 24 100 520 15:00 94 20 113/54 (73) 100 520 15:00 20 Endotracheal Tube 100 12/17/19 15:00 20 Endotracheal Tube 100 520 15:00 113/54 520 14:30 93 14 114/54 (74) 100 12/17/19 14:00 90 12 113/56 (75) 100 12/17/19 14:00 12 Endotracheal Tube 100 12/17/19 14:00 12 Endotracheal Tube 100 520 14:00 110/61 5 13:30 89 23 112/58 (76) 100 20 13:00 90 22 118/60 (79) 100 12/17/19 13:00 22 Endotracheal Tube 100 520 13:00 23 Endotracheal Tube 100 20 13:00 113/54 520 12:30 93 23 114/61 (78) 100 20 12:30 96 27 114/57 (76) 100 520 12:00 100 5/20 12:00 93 5/20 12:00 Mechanical Ventilator 12/17/19 12:00 28 Endotracheal Tube 100 520 12:00 28 Endotracheal Tube 100 20 12:00 115/59 520 12:00 97.6 102 28 108/57 (74) 100 5/20 12:00 97 26 115/59 (77) 100 520 11:30 111 31 109/56 (73) 100 520 11:28 111 /5/20 11:07 106 30 100 5/5/20 11:00 107 28 98/53 (68) 100 12/17/19 11:00 28 Endotracheal Tube 100 12/17/19 11:00 28 Endotracheal Tube 100 12/17/19 11:00 107/56 12/17/19 10:50 29 Endotracheal Tube 15.0 100 12/17/19 10:49 Endotracheal Tube 100 12/17/19 10:30 100 30 115/64 (81) 100 12/17/19 10:00 93 29 109/66 (80) 100 12/17/19 10:00 29 Endotracheal Tube 100 12/17/19 10:00 29 Endotracheal Tube 100 12/17/19 10:00 109/66 Intake and Output 12/18/19 12/19/19 19:00 07:00 Intake Total 977.635 ml 1002.5 ml Output Total 0 ml 2100 ml Balance 977.635 ml -1097.5 ml Free Water 80 ml IV Total 477.635 ml 617.5 ml Tube Feeding 420 ml 385 ml Output Urine Total 0 ml 0 ml Stool Total 100 ml Hemodialysis UF 2000 ml Labs Test 12/16/19 11:36 12/17/19 06:55 12/19/19 03:45 Arterial Blood pH 7.226 (7.350-7.450) Arterial Blood Partial Pressure CO2 80.7 mmHg (35.0-45.0) Arterial Blood Partial Pressure O2 114.6 mmHg (75.0-100.0) Arterial Blood HCO3 32.7 mmol/L (22.0-26.0) Arterial Blood Oxygen Saturation 97.4 % (95-100) Arterial Blood Base Excess 3.3 (-2-2) Melecio Test Positive White Blood Count 27.4 K/UL (4.8-10.8) 27.8 K/UL (4.8-10.8) Red Blood Count 3.38 M/UL (4.70-6.10) 3.05 M/UL (4.70-6.10) Hemoglobin 10.3 G/DL (14.2-18.0) 9.3 G/DL (14.2-18.0) Hematocrit 31.6 % (42.0-52.0) 28.6 % (42.0-52.0) Mean Corpuscular Volume 94 FL (80-99) 94 FL (80-99) Mean Corpuscular Hemoglobin 30.5 PG (27.0-31.0) 30.5 PG (27.0-31.0) Mean Corpuscular Hemoglobin Concent 32.5 G/DL (32.0-36.0) 32.5 G/DL (32.0-36.0) Red Cell Distribution Width 14.2 % (11.6-14.8) 14.1 % (11.6-14.8) Platelet Count 179 K/UL (150-450) 154 K/UL (150-450) Mean Platelet Volume 7.4 FL (6.5-10.1) 7.5 FL (6.5-10.1) Neutrophils (%) (Auto) % (45.0-75.0) % (45.0-75.0) Lymphocytes (%) (Auto) % (20.0-45.0) % (20.0-45.0) Monocytes (%) (Auto) % (1.0-10.0) % (1.0-10.0) Eosinophils (%) (Auto) % (0.0-3.0) % (0.0-3.0) Basophils (%) (Auto) % (0.0-2.0) % (0.0-2.0) Differential Total Cells Counted 100 100 Neutrophils % (Manual) 88 % (45-75) 91 % (45-75) Lymphocytes % (Manual) 6 % (20-45) 5 % (20-45) Monocytes % (Manual) 6 % (1-10) 4 % (1-10) Eosinophils % (Manual) 0 % (0-3) 0 % (0-3) Basophils % (Manual) 0 % (0-2) 0 % (0-2) Band Neutrophils 0 % (0-8) 0 % (0-8) Platelet Estimate Adequate Adequate Platelet Morphology Normal Normal Hypochromasia 1+ 2+ Anisocytosis 1+ 1+ Sodium Level 142 MMOL/L (136-145) 136 MMOL/L (136-145) Potassium Level 4.2 MMOL/L (3.5-5.1) 5.4 MMOL/L (3.5-5.1) Chloride Level 105 MMOL/L (98-107) 97 MMOL/L (98-107) Carbon Dioxide Level 30 MMOL/L (21-32) 32 MMOL/L (21-32) Anion Gap 7 mmol/L (5-15) 7 mmol/L (5-15) Blood Urea Nitrogen 82 mg/dL (7-18) 57 mg/dL (7-18) Creatinine 3.9 MG/DL (0.55-1.30) 3.6 MG/DL (0.55-1.30) Estimat Glomerular Filtration Rate 16.0 mL/min (>60) 17.5 mL/min (>60) Glucose Level 123 MG/DL (74-106) 127 MG/DL (74-106) Calcium Level 10.2 MG/DL (8.5-10.1) 8.0 MG/DL (8.5-10.1) Total Bilirubin 0.7 MG/DL (0.2-1.0) Aspartate Amino Transf (AST/SGOT) 40 U/L (15-37) Alanine Aminotransferase (ALT/SGPT) 53 U/L (12-78) Alkaline Phosphatase 235 U/L (46-116) Total Protein 6.0 G/DL (6.4-8.2) Albumin 2.6 G/DL (3.4-5.0) Globulin 3.4 g/dL Albumin/Globulin Ratio 0.8 (1.0-2.7) Random Vancomycin Level 11.6 ug/mL 15.6 ug/mL Height (Feet): 5 Height (Inches): 6.00 Weight (Pounds): 159 Objective General: prone position on vent Heent: nc, at+ ng Respiratory: normal breath sounds, no retraction, vent++ Cardiovascular: no edema, tachycardia Gastrointestinal: normal inspection Neurologic unresponsive on vent Psychiatric: judgement/insight normal, memory normal, mood/affect normal, no suicidal/homicidal ideation Ext: with hd fem jia in place : + barnes and rectal tube Mj Zhu MD December 19, 2019 09:31
--- NOTE | 2019-12-19 10:13 | Nephrology Progress Note ---
Assessment/Plan Plan #ALBARO- concerns for developing ischemic ATN in the setting of sepsis- r/o vanco toxicity - r/o COVID nephropathy - now with likely ATN #Hyperkalemia due to renal insuffiency - exacerbated by acidosis #COID sepsis #COVID pneumonia #hypoxemic respiratary failure #HTN- now in shock #mediastinal PTX - getting HD on low K bath today - midodorine 10mg q8hr - monitor I&Os - daily weights - monitor lytes closely -add nephrovite - GOALS of care discussion - continue pressor support to maintain MAP > 65- continue levo - continue fentanyl dip - abx per ID- on vanco and meropenem - vent management per pulm -Abd Xray shows mediastinal PTX - too high risk for thorocotomy Subjective ROS Limited/Unobtainable: Yes Subjective K 5.4 today getting HD on low K bath today remains oliguric on Fio2 80 on levo Abd Xray shows mediastinal PTX Objective Objective Last 24 Hour Vital Signs Date Time Temp Pulse Resp B/P (MAP) Pulse Ox O2 Delivery O2 Flow Rate FiO2 12/19/19 09:30 85 28 117/57 (77) 98 12/19/19 09:02 88 24 80 12/19/19 09:00 84 27 112/60 (77) 98 12/19/19 08:30 85 25 125/64 (84) 98 12/19/19 08:00 98.2 84 24 112/61 (78) 99 12/19/19 08:00 80 12/19/19 08:00 Mechanical Ventilator 12/19/19 07:30 84 14 106/58 (74) 100 12/19/19 07:02 86 27 80 12/19/19 07:00 84 14 105/60 (75) 99 12/19/19 06:30 85 19 111/56 (74) 99 12/19/19 06:00 85 22 103/60 (74) 99 12/19/19 06:00 103/60 12/19/19 06:00 19 Mechanical Ventilator 80 12/19/19 06:00 19 Mechanical Ventilator 80 12/19/19 05:30 87 22 106/60 (75) 98 12/19/19 05:00 112/53 12/19/19 05:00 19 Mechanical Ventilator 80 12/19/19 05:00 19 Mechanical Ventilator 80 12/19/19 05:00 87 19 112/53 (72) 99 12/19/19 04:30 87 21 104/57 (73) 99 12/19/19 04:00 87 18 107/58 (74) 99 12/19/19 04:00 Mechanical Ventilator 12/19/19 04:00 107/58 12/19/19 04:00 18 Mechanical Ventilator 80 12/19/19 04:00 18 Mechanical Ventilator 80 12/19/19 04:00 88 12/19/19 04:00 80 12/19/19 03:30 97.6 91 19 108/54 (72) 100 12/19/19 03:21 82 32 80 12/19/19 03:00 107/56 12/19/19 03:00 20 Mechanical Ventilator 80 12/19/19 03:00 20 Mechanical Ventilator 80 12/19/19 03:00 92 20 107/56 (73) 100 12/19/19 02:30 93 15 110/56 (74) 98 12/19/19 02:08 102/51 12/19/19 02:06 24 Mechanical Ventilator 80 12/19/19 02:03 24 Mechanical Ventilator 80 12/19/19 02:00 95 23 102/51 (68) 100 12/19/19 02:00 102/51 12/19/19 02:00 23 Mechanical Ventilator 80 12/19/19 02:00 23 Mechanical Ventilator 80 12/19/19 01:30 96 24 104/49 (67) 100 12/19/19 01:00 98 24 101/55 (70) 99 12/19/19 01:00 101/58 12/19/19 01:00 27 Mechanical Ventilator 80 12/19/19 01:00 27 Mechanical Ventilator 80 12/19/19 00:30 99 25 109/51 (70) 99 12/19/19 00:00 99 12/19/19 00:00 Mechanical Ventilator 12/19/19 00:00 80 12/19/19 00:00 106/58 12/19/19 00:00 27 Mechanical Ventilator 80 12/19/19 00:00 27 Mechanical Ventilator 80 12/19/19 00:00 97.7 101 25 106/58 (74) 100 12/18/19 23:30 102 25 101/53 (69) 99 12/18/19 23:25 98 20 80 5/6/20 23:00 102 20 106/52 (70) 100 520 23:00 106/52 5/20 23:00 20 Mechanical Ventilator 80 20 23:00 20 Mechanical Ventilator 80 20 22:30 98 20 108/62 (77) 100 5//20 22:00 97 21 100/61 (74) 100 20 22:00 100/61 5/20 22:00 21 Mechanical Ventilator 80 12/18/19 22:00 21 Mechanical Ventilator 80 20 21:30 99 20 98/57 (71) 100 12/18/19 21:00 101/60 5 21:00 20 Mechanical Ventilator 80 12/18/19 21:00 20 Mechanical Ventilator 80 12/18/19 21:00 102 22 98/56 (70) 98 20 20:30 105 27 101/49 (66) 93 20 20:00 102 24 102/53 (69) 90 20 20:00 80 12/18/19 20:00 102/53 12/17/20 20:00 27 Mechanical Ventilator 80 12/18/19 20:00 27 Mechanical Ventilator 80 20 20:00 104 20 20:00 Mechanical Ventilator 12/18/19 19:33 81 32 80 20 19:30 94 29 117/53 (74) 94 //20 19:00 98.5 82 30 116/58 (77) 99 20 19:00 116/58 20 19:00 30 Mechanical Ventilator 80 12/18/19 19:00 30 Mechanical Ventilator 80 20 18:30 81 28 125/61 (82) 100 //20 18:00 87 30 126/61 (82) 100 20 18:00 127/63 5/6/20 18:00 31 Mechanical Ventilator 80 20 18:00 31 Mechanical Ventilator 80 20 18:00 85 30 127/63 (84) 99 //20 17:30 89 30 119/58 (78) 100 /6/20 17:30 90 31 119/58 (78) 100 12/17/20 17:00 96 32 113/61 (78) 99 5/620 17:00 95 32 113/61 (78) 100 5/6/20 17:00 113/61 5/6/20 17:00 32 Mechanical Ventilator 80 520 17:00 32 Mechanical Ventilator 80 20 16:30 101 32 122/51 (74) 98 5//20 16:30 103 32 110/57 (74) 98 20 16:00 Mechanical Ventilator 20 16:00 98.0 107 32 116/49 (71) 97 12/17/20 16:00 116/49 20 16:00 32 Mechanical Ventilator 80 20 16:00 32 Mechanical Ventilator 80 20 16:00 107 20 16:00 80 20 16:00 104 32 124/47 (72) 97 20 15:41 124/60 20 15:40 107/55 20 15:30 106 31 121/49 (73) 99 20 15:30 104 31 107/55 (72) 97 20 15:16 106 32 80 5/20 15:00 104 31 107/55 (72) 97 20 15:00 109/53 20 15:00 33 Mechanical Ventilator 80 12/18/19 15:00 33 Mechanical Ventilator 80 20 15:00 106 33 109/53 (71) 97 5/6/20 14:30 105 32 121/57 (78) 98 20 14:00 103 22 109/53 (71) 93 520 14:00 114/54 5/20 14:00 30 Mechanical Ventilator 100 520 14:00 30 Mechanical Ventilator 100 20 13:30 106 30 109/54 (72) 97 520 13:11 100.0 20 13:00 108 30 111/48 (69) 96 12/17/20 13:00 111/48 20 13:00 31 Mechanical Ventilator 80 5/6/20 13:00 31 Mechanical Ventilator 80 20 12:30 106 30 102/57 (72) 96 20 12:30 102/57 5/6/20 12:15 106/56 12/18/19 12:00 105 30 110/53 (72) 97 12/18/19 12:00 Mechanical Ventilator 12/18/19 12:00 80 12/18/19 12:00 100.0 105 30 110/53 (72) 97 12/18/19 12:00 110/53 12/18/19 12:00 31 Mechanical Ventilator 80 12/18/19 12:00 31 Mechanical Ventilator 80 12/18/19 12:00 108 12/18/19 11:45 113/47 12/18/19 11:30 113/54 12/18/19 11:30 100 29 113/54 (73) 99 12/18/19 11:15 113/55 12/18/19 11:00 99 29 113/59 (77) 100 12/18/19 11:00 113/59 12/18/19 11:00 30 Mechanical Ventilator 80 12/18/19 11:00 30 Mechanical Ventilator 100 12/18/19 10:55 99 30 80 12/18/19 10:30 101 28 101/47 (65) 100 Intake and Output 12/18/19 12/19/19 19:00 07:00 Intake Total 977.635 ml 1002.5 ml Output Total 0 ml 2100 ml Balance 977.635 ml -1097.5 ml Free Water 80 ml IV Total 477.635 ml 617.5 ml Tube Feeding 420 ml 385 ml Output Urine Total 0 ml 0 ml Stool Total 100 ml Hemodialysis UF 2000 ml Laboratory Tests 12/19/19 03:45: White Blood Count 27.8*H, Red Blood Count 3.05L, Hemoglobin 9.3L, Hematocrit 28.6L, Mean Corpuscular Volume 94, Mean Corpuscular Hemoglobin 30.5, Mean Corpuscular Hemoglobin Concent 32.5, Red Cell Distribution Width 14.1, Platelet Count 154, Mean Platelet Volume 7.5, Neutrophils (%) (Auto) , Lymphocytes (%) ( Auto) , Monocytes (%) (Auto) , Eosinophils (%) (Auto) , Basophils (%) (Auto) , Differential Total Cells Counted 100, Neutrophils % (Manual) 91H, Lymphocytes % (Manual) 5L, Monocytes % (Manual) 4, Eosinophils % (Manual) 0, Basophils % ( Manual) 0, Band Neutrophils 0, Platelet Estimate Adequate, Platelet Morphology Normal, Hypochromasia 2+, Anisocytosis 1+, Sodium Level 136, Potassium Level 5.4H, Chloride Level 97L, Carbon Dioxide Level 32, Anion Gap 7, Blood Urea Nitrogen 57H, Creatinine 3.6H, Estimat Glomerular Filtration Rate 17.5, Glucose Level 127H, Calcium Level 8.0L, Random Vancomycin Level 15.6 Height (Feet): 5 Height (Inches): 6.00 Weight (Pounds): 159 Objective General Appearance: other - intubated- proned Lines, tubes and drains: central line HEENT: normocephalic, atraumatic Respiratory/Chest: rhonchi - bilaterally Cardiovascular/Chest: other - tachycardic Extremities: pitting Dorian Soriano M.D. December 19, 2019 10:13
--- NOTE | 2019-12-19 10:20 | NUR ---
NURSE NOTES: Seen By Dr. Cortes.
[2019-12-19] MEDS ORDERED: Vancomycin 750mg/NS 275ml IVPB ONE ×2 (11:00)
--- NOTE | 2019-12-19 11:10 | NUR ---
NURSE NOTES: Seen by Dr. Sroiano and informed pt's K level.
--- NOTE | 2019-12-19 11:15 | General Progress Note ---
Assessment/Plan Problem List: (1) Elevated LFTs ICD Codes: R79.89 - Other specified abnormal findings of blood chemistry SNOMED: 735290132, 729988391 (2) HTN (hypertension) ICD Codes: I10 - Essential (primary) hypertension SNOMED: 17502481 (3) Suspected COVID-19 virus infection ICD Codes: R68.89 - Other general symptoms and signs SNOMED: 847164351 (4) Pneumonia ICD Codes: J18.9 - Pneumonia, unspecified organism SNOMED: 355383245 (5) Respiratory distress ICD Codes: R06.03 - Acute respiratory distress SNOMED: 635701122 (6) Pneumomediastinum ICD Codes: J98.2 - Interstitial emphysema SNOMED: 14333079 (7) COVID-19 ICD Codes: U07.1 - COVID-19 SNOMED: 116699236 (8) Hypotension ICD Codes: I95.9 - Hypotension, unspecified SNOMED: 98743182 Status: unchanged Assessment/Plan: NGTF rectal tube in place elevated LFTS most likely due to shock liver>>> improving repeat labs in am hepatitis panel>>>Neg abd us when off of isolation fu nephrology recent labs and notes reviewed D/W the nurse Subjective ROS Limited/Unobtainable: No Allergies: Coded Allergies: No Known Allergies (Unverified , 11/29/19) Objective Last 24 Hour Vital Signs Date Time Temp Pulse Resp B/P (MAP) Pulse Ox O2 Delivery O2 Flow Rate FiO2 12/19/19 10:55 85 35 80 12/19/19 09:30 85 28 117/57 (77) 98 12/19/19 09:02 88 24 80 12/19/19 09:00 84 27 112/60 (77) 98 12/19/19 08:30 85 25 125/64 (84) 98 12/19/19 08:00 98.2 84 24 112/61 (78) 99 12/19/19 08:00 80 12/19/19 08:00 Mechanical Ventilator 12/19/19 07:30 84 14 106/58 (74) 100 12/19/19 07:02 86 27 80 12/19/19 07:00 84 14 105/60 (75) 99 12/19/19 06:30 85 19 111/56 (74) 99 12/19/19 06:00 85 22 103/60 (74) 99 12/19/19 06:00 103/60 12/19/19 06:00 19 Mechanical Ventilator 80 12/19/19 06:00 19 Mechanical Ventilator 80 12/19/19 05:30 87 22 106/60 (75) 98 12/19/19 05:00 112/53 12/19/19 05:00 19 Mechanical Ventilator 80 12/19/19 05:00 19 Mechanical Ventilator 80 12/19/19 05:00 87 19 112/53 (72) 99 12/19/19 04:30 87 21 104/57 (73) 99 12/19/19 04:00 87 18 107/58 (74) 99 12/19/19 04:00 Mechanical Ventilator 12/19/19 04:00 107/58 12/19/19 04:00 18 Mechanical Ventilator 80 12/19/19 04:00 18 Mechanical Ventilator 80 12/19/19 04:00 88 12/19/19 04:00 80 12/19/19 03:30 97.6 91 19 108/54 (72) 100 12/19/19 03:21 82 32 80 12/19/19 03:00 107/56 12/19/19 03:00 20 Mechanical Ventilator 80 12/19/19 03:00 20 Mechanical Ventilator 80 12/19/19 03:00 92 20 107/56 (73) 100 12/19/19 02:30 93 15 110/56 (74) 98 12/19/19 02:08 102/51 12/19/19 02:06 24 Mechanical Ventilator 80 12/19/19 02:03 24 Mechanical Ventilator 80 12/19/19 02:00 95 23 102/51 (68) 100 12/19/19 02:00 102/51 12/19/19 02:00 23 Mechanical Ventilator 80 12/19/19 02:00 23 Mechanical Ventilator 80 12/19/19 01:30 96 24 104/49 (67) 100 12/19/19 01:00 98 24 101/55 (70) 99 12/19/19 01:00 101/58 12/19/19 01:00 27 Mechanical Ventilator 80 12/19/19 01:00 27 Mechanical Ventilator 80 12/19/19 00:30 99 25 109/51 (70) 99 12/19/19 00:00 99 5/7/20 00:00 Mechanical Ventilator 12/19/19 00:00 80 20 00:00 106/58 12/19/19 00:00 27 Mechanical Ventilator 80 12/19/19 00:00 27 Mechanical Ventilator 80 12/19/19 00:00 97.7 101 25 106/58 (74) 100 20 23:30 102 25 101/53 (69) 99 20 23:25 98 20 80 12/18/19 23:00 102 20 106/52 (70) 100 12/18/19 23:00 106/52 12/18/19 23:00 20 Mechanical Ventilator 80 12/18/19 23:00 20 Mechanical Ventilator 80 12/18/19 22:30 98 20 108/62 (77) 100 12/18/19 22:00 97 21 100/61 (74) 100 12/18/19 22:00 100/61 12/18/19 22:00 21 Mechanical Ventilator 80 12/18/19 22:00 21 Mechanical Ventilator 80 12/18/19 21:30 99 20 98/57 (71) 100 12/18/19 21:00 101/60 12/18/19 21:00 20 Mechanical Ventilator 80 12/18/19 21:00 20 Mechanical Ventilator 80 12/18/19 21:00 102 22 98/56 (70) 98 12/18/19 20:30 105 27 101/49 (66) 93 12/18/19 20:00 102 24 102/53 (69) 90 12/18/19 20:00 80 12/18/19 20:00 102/53 12/18/19 20:00 27 Mechanical Ventilator 80 12/18/19 20:00 27 Mechanical Ventilator 80 12/18/19 20:00 104 20 20:00 Mechanical Ventilator 12/18/19 19:33 81 32 80 20 19:30 94 29 117/53 (74) 94 20 19:00 98.5 82 30 116/58 (77) 99 20 19:00 116/58 20 19:00 30 Mechanical Ventilator 80 20 19:00 30 Mechanical Ventilator 80 20 18:30 81 28 125/61 (82) 100 /20 18:00 87 30 126/61 (82) 100 5/6/20 18:00 127/63 5/6/20 18:00 31 Mechanical Ventilator 80 5/6/20 18:00 31 Mechanical Ventilator 80 5//20 18:00 85 30 127/63 (84) 99 20 17:30 89 30 119/58 (78) 100 5/6/20 17:30 90 31 119/58 (78) 100 5/6/20 17:00 96 32 113/61 (78) 99 20 17:00 95 32 113/61 (78) 100 20 17:00 113/61 520 17:00 32 Mechanical Ventilator 80 20 17:00 32 Mechanical Ventilator 80 20 16:30 101 32 122/51 (74) 98 20 16:30 103 32 110/57 (74) 98 20 16:00 Mechanical Ventilator 12/18/19 16:00 98.0 107 32 116/49 (71) 97 12/18/19 16:00 116/49 12/18/19 16:00 32 Mechanical Ventilator 80 20 16:00 32 Mechanical Ventilator 80 20 16:00 107 //20 16:00 80 20 16:00 104 32 124/47 (72) 97 12/17/20 15:41 124/60 20 15:40 107/55 //20 15:30 106 31 121/49 (73) 99 20 15:30 104 31 107/55 (72) 97 20 15:16 106 32 80 20 15:00 104 31 107/55 (72) 97 12/17/20 15:00 109/53 5/6/20 15:00 33 Mechanical Ventilator 80 20 15:00 33 Mechanical Ventilator 80 20 15:00 106 33 109/53 (71) 97 12/17/20 14:30 105 32 121/57 (78) 98 12/17/20 14:00 103 22 109/53 (71) 93 5/6/20 14:00 114/54 5//20 14:00 30 Mechanical Ventilator 100 12/17/20 14:00 30 Mechanical Ventilator 100 20 13:30 106 30 109/54 (72) 97 12/18/19 13:11 100.0 12/18/19 13:00 108 30 111/48 (69) 96 12/18/19 13:00 111/48 12/18/19 13:00 31 Mechanical Ventilator 80 12/18/19 13:00 31 Mechanical Ventilator 80 12/18/19 12:30 106 30 102/57 (72) 96 12/18/19 12:30 102/57 12/18/19 12:15 106/56 12/18/19 12:00 105 30 110/53 (72) 97 12/18/19 12:00 Mechanical Ventilator 12/18/19 12:00 80 12/18/19 12:00 100.0 105 30 110/53 (72) 97 12/18/19 12:00 110/53 12/18/19 12:00 31 Mechanical Ventilator 80 12/18/19 12:00 31 Mechanical Ventilator 80 12/18/19 12:00 108 12/18/19 11:45 113/47 12/18/19 11:30 113/54 12/18/19 11:30 100 29 113/54 (73) 99 12/18/19 11:15 113/55 Intake and Output 12/18/19 12/19/19 19:00 07:00 Intake Total 977.635 ml 1002.5 ml Output Total 0 ml 2100 ml Balance 977.635 ml -1097.5 ml Free Water 80 ml IV Total 477.635 ml 617.5 ml Tube Feeding 420 ml 385 ml Output Urine Total 0 ml 0 ml Stool Total 100 ml Hemodialysis UF 2000 ml Laboratory Tests 12/19/19 03:45: White Blood Count 27.8*H, Red Blood Count 3.05L, Hemoglobin 9.3L, Hematocrit 28.6L, Mean Corpuscular Volume 94, Mean Corpuscular Hemoglobin 30.5, Mean Corpuscular Hemoglobin Concent 32.5, Red Cell Distribution Width 14.1, Platelet Count 154, Mean Platelet Volume 7.5, Neutrophils (%) (Auto) , Lymphocytes (%) ( Auto) , Monocytes (%) (Auto) , Eosinophils (%) (Auto) , Basophils (%) (Auto) , Differential Total Cells Counted 100, Neutrophils % (Manual) 91H, Lymphocytes % (Manual) 5L, Monocytes % (Manual) 4, Eosinophils % (Manual) 0, Basophils % ( Manual) 0, Band Neutrophils 0, Platelet Estimate Adequate, Platelet Morphology Normal, Hypochromasia 2+, Anisocytosis 1+, Sodium Level 136, Potassium Level 5.4H, Chloride Level 97L, Carbon Dioxide Level 32, Anion Gap 7, Blood Urea Nitrogen 57H, Creatinine 3.6H, Estimat Glomerular Filtration Rate 17.5, Glucose Level 127H, Calcium Level 8.0L, Random Vancomycin Level 15.6 Height (Feet): 5 Height (Inches): 6.00 Weight (Pounds): 159 General Appearance: no apparent distress EENT: normal ENT inspection Neck: supple Cardiovascular: tachycardia Respiratory/Chest: decreased breath sounds Abdomen: normal bowel sounds, non tender, soft Extremities: non-tender João Rdz MD December 19, 2019 11:15
--- NOTE | 2019-12-19 11:28 | Pulmonology Progress Note ---
Subjective ROS Limited/Unobtainable: No Interval Events: Intubated ;proning on hold due to facial decubitus Constitutional: Reports: fever, other - on vent and pressors HEENT: Repors: no symptoms Respiratory: Reports: no symptoms Cardiovascular: Reports: no symptoms Gastrointestinal/Abdominal: Reports: diarrhea, other - + rectal tube Genitourinary: Reports: no symptoms Psychiatric: Reports: other - NA Skin: Denies: rash Musculoskeletal: Reports: other - NA Allergies: Coded Allergies: No Known Allergies (Unverified , 11/29/19) All Systems: reviewed and negative except above Objective Last 24 Hour Vital Signs Date Time Temp Pulse Resp B/P (MAP) Pulse Ox O2 Delivery O2 Flow Rate FiO2 12/19/19 11:00 82 31 117/59 (78) 99 12/19/19 10:55 85 35 80 12/19/19 10:45 83 30 116/57 (76) 98 12/19/19 10:30 84 27 112/57 (75) 98 12/19/19 10:15 85 33 115/57 (76) 98 12/19/19 10:00 85 30 122/55 (77) 99 12/19/19 09:30 85 28 117/57 (77) 98 12/19/19 09:02 88 24 80 12/19/19 09:00 84 27 112/60 (77) 98 12/19/19 08:30 85 25 125/64 (84) 98 12/19/19 08:00 98.2 84 24 112/61 (78) 99 12/19/19 08:00 80 12/19/19 08:00 Mechanical Ventilator 12/19/19 07:30 84 14 106/58 (74) 100 12/19/19 07:02 86 27 80 12/19/19 07:00 84 14 105/60 (75) 99 12/19/19 06:30 85 19 111/56 (74) 99 12/19/19 06:00 85 22 103/60 (74) 99 12/19/19 06:00 103/60 12/19/19 06:00 19 Mechanical Ventilator 80 12/19/19 06:00 19 Mechanical Ventilator 80 12/19/19 05:30 87 22 106/60 (75) 98 12/19/19 05:00 112/53 12/19/19 05:00 19 Mechanical Ventilator 80 12/19/19 05:00 19 Mechanical Ventilator 80 12/19/19 05:00 87 19 112/53 (72) 99 12/19/19 04:30 87 21 104/57 (73) 99 12/19/19 04:00 87 18 107/58 (74) 99 12/19/19 04:00 Mechanical Ventilator 12/19/19 04:00 107/58 12/19/19 04:00 18 Mechanical Ventilator 80 12/19/19 04:00 18 Mechanical Ventilator 80 12/19/19 04:00 88 12/19/19 04:00 80 12/19/19 03:30 97.6 91 19 108/54 (72) 100 12/19/19 03:21 82 32 80 12/19/19 03:00 107/56 12/19/19 03:00 20 Mechanical Ventilator 80 12/19/19 03:00 20 Mechanical Ventilator 80 12/19/19 03:00 92 20 107/56 (73) 100 12/19/19 02:30 93 15 110/56 (74) 98 12/19/19 02:08 102/51 12/19/19 02:06 24 Mechanical Ventilator 80 12/19/19 02:03 24 Mechanical Ventilator 80 12/19/19 02:00 95 23 102/51 (68) 100 12/19/19 02:00 102/51 12/19/19 02:00 23 Mechanical Ventilator 80 12/19/19 02:00 23 Mechanical Ventilator 80 12/19/19 01:30 96 24 104/49 (67) 100 12/19/19 01:00 98 24 101/55 (70) 99 12/19/19 01:00 101/58 12/19/19 01:00 27 Mechanical Ventilator 80 12/19/19 01:00 27 Mechanical Ventilator 80 12/19/19 00:30 99 25 109/51 (70) 99 12/19/19 00:00 99 12/19/19 00:00 Mechanical Ventilator 12/19/19 00:00 80 12/19/19 00:00 106/58 12/19/19 00:00 27 Mechanical Ventilator 80 12/19/19 00:00 27 Mechanical Ventilator 80 12/19/19 00:00 97.7 101 25 106/58 (74) 100 12/18/19 23:30 102 25 101/53 (69) 99 5/6/20 23:25 98 20 80 5/6/20 23:00 102 20 106/52 (70) 100 5/6/20 23:00 106/52 5/6/20 23:00 20 Mechanical Ventilator 80 5/6/20 23:00 20 Mechanical Ventilator 80 5/6/20 22:30 98 20 108/62 (77) 100 5/6/20 22:00 97 21 100/61 (74) 100 5/6/20 22:00 100/61 5/6/20 22:00 21 Mechanical Ventilator 80 5620 22:00 21 Mechanical Ventilator 80 5/620 21:30 99 20 98/57 (71) 100 5/620 21:00 101/60 5/620 21:00 20 Mechanical Ventilator 80 520 21:00 20 Mechanical Ventilator 80 5/6/20 21:00 102 22 98/56 (70) 98 5/6/20 20:30 105 27 101/49 (66) 93 5/6/20 20:00 102 24 102/53 (69) 90 5/20 20:00 80 5//20 20:00 102/53 5/6/20 20:00 27 Mechanical Ventilator 80 20 20:00 27 Mechanical Ventilator 80 20 20:00 104 5/620 20:00 Mechanical Ventilator 20 19:33 81 32 80 5/6/20 19:30 94 29 117/53 (74) 94 5/6/20 19:00 98.5 82 30 116/58 (77) 99 5/20 19:00 116/58 5/6/20 19:00 30 Mechanical Ventilator 80 5/6/20 19:00 30 Mechanical Ventilator 80 5/6/20 18:30 81 28 125/61 (82) 100 5/6/20 18:00 87 30 126/61 (82) 100 5/6/20 18:00 127/63 5/6/20 18:00 31 Mechanical Ventilator 80 5/6/20 18:00 31 Mechanical Ventilator 80 5/6/20 18:00 85 30 127/63 (84) 99 5/6/20 17:30 89 30 119/58 (78) 100 5/6/20 17:30 90 31 119/58 (78) 100 5/620 17:00 96 32 113/61 (78) 99 5/20 17:00 95 32 113/61 (78) 100 5/20 17:00 113/61 20 17:00 32 Mechanical Ventilator 80 520 17:00 32 Mechanical Ventilator 80 20 16:30 101 32 122/51 (74) 98 20 16:30 103 32 110/57 (74) 98 20 16:00 Mechanical Ventilator 12/18/19 16:00 98.0 107 32 116/49 (71) 97 20 16:00 116/49 12/18/19 16:00 32 Mechanical Ventilator 80 12/18/19 16:00 32 Mechanical Ventilator 80 12/18/19 16:00 107 12/18/19 16:00 80 20 16:00 104 32 124/47 (72) 97 12/18/19 15:41 124/60 12/18/19 15:40 107/55 12/18/19 15:30 106 31 121/49 (73) 99 20 15:30 104 31 107/55 (72) 97 20 15:16 106 32 80 /01/31 15:00 104 31 107/55 (72) 97 12/18/19 15:00 109/53 20 15:00 33 Mechanical Ventilator 80 12/18/19 15:00 33 Mechanical Ventilator 80 12/18/19 15:00 106 33 109/53 (71) 97 20 14:30 105 32 121/57 (78) 98 20 14:00 103 22 109/53 (71) 93 20 14:00 114/54 20 14:00 30 Mechanical Ventilator 100 20 14:00 30 Mechanical Ventilator 100 20 13:30 106 30 109/54 (72) 97 20 13:11 100.0 20 13:00 108 30 111/48 (69) 96 20 13:00 111/48 20 13:00 31 Mechanical Ventilator 80 12/18/19 13:00 31 Mechanical Ventilator 80 20 12:30 106 30 102/57 (72) 96 12/18/19 12:30 102/57 12/18/19 12:15 106/56 12/18/19 12:00 105 30 110/53 (72) 97 12/18/19 12:00 Mechanical Ventilator 12/18/19 12:00 80 12/18/19 12:00 100.0 105 30 110/53 (72) 97 12/18/19 12:00 110/53 12/18/19 12:00 31 Mechanical Ventilator 80 12/18/19 12:00 31 Mechanical Ventilator 80 12/18/19 12:00 108 12/18/19 11:45 113/47 12/18/19 11:30 113/54 12/18/19 11:30 100 29 113/54 (73) 99 Intake and Output 12/18/19 12/19/19 19:00 07:00 Intake Total 977.635 ml 1002.5 ml Output Total 0 ml 2100 ml Balance 977.635 ml -1097.5 ml Free Water 80 ml IV Total 477.635 ml 617.5 ml Tube Feeding 420 ml 385 ml Output Urine Total 0 ml 0 ml Stool Total 100 ml Hemodialysis UF 2000 ml General Appearance: other - on vent HEENT: normocephalic, atraumatic, anicteric, no JVD, other - intubated Respiratory/Chest: chest wall non-tender, lungs clear Cardiovascular: normal peripheral pulses, normal rate Abdomen: normal bowel sounds, soft, non tender, no organomegaly Genitourinary: other - + barnes Extremities: no cyanosis Skin: no rash Neurologic/Psychiatric: other - lethargic, weak Lymphatic: no neck adenopathy Musculoskeletal: no effusion Microbiology Date/Time Source Procedure Growth Status 12/17/19 06:55 Blood Blood Culture - Preliminary NO GROWTH AFTER 24 HOURS Resulted 12/17/19 06:40 Blood Blood Culture - Preliminary NO GROWTH AFTER 24 HOURS Resulted 12/16/19 16:00 Sputum Gram Stain - Final Complete 12/16/19 16:00 Sputum Sputum Culture - Final NORMAL UPPER RESPIRATORY ALISIA PRESENT Complete 12/17/19 00:38 Indwelling Cath Urine Culture - Final NO GROWTH AFTER 48 HOURS Complete Laboratory Tests 12/19/19 03:45: White Blood Count 27.8*H, Red Blood Count 3.05L, Hemoglobin 9.3L, Hematocrit 28.6L, Mean Corpuscular Volume 94, Mean Corpuscular Hemoglobin 30.5, Mean Corpuscular Hemoglobin Concent 32.5, Red Cell Distribution Width 14.1, Platelet Count 154, Mean Platelet Volume 7.5, Neutrophils (%) (Auto) , Lymphocytes (%) ( Auto) , Monocytes (%) (Auto) , Eosinophils (%) (Auto) , Basophils (%) (Auto) , Differential Total Cells Counted 100, Neutrophils % (Manual) 91H, Lymphocytes % (Manual) 5L, Monocytes % (Manual) 4, Eosinophils % (Manual) 0, Basophils % ( Manual) 0, Band Neutrophils 0, Platelet Estimate Adequate, Platelet Morphology Normal, Hypochromasia 2+, Anisocytosis 1+, Sodium Level 136, Potassium Level 5.4H, Chloride Level 97L, Carbon Dioxide Level 32, Anion Gap 7, Blood Urea Nitrogen 57H, Creatinine 3.6H, Estimat Glomerular Filtration Rate 17.5, Glucose Level 127H, Calcium Level 8.0L, Random Vancomycin Level 15.6 Current Medications Medications (Trade) Dose Ordered Sig/Vicki Route PRN Reason Start Time Stop Time Status Last Admin Dose Admin Acetaminophen (Tylenol) 650 mg Q4H PRN NG Temp >100.5 12/06/19 14:15 01/05/20 14:14 12/18/19 12:41 Acetaminophen (Tylenol) 650 mg Q4H PRN RECTAL Mild Pain (Pain Scale 1-3) 12/04/19 11:45 01/03/20 11:44 12/06/19 19:17 Chlorhexidine Gluconate (Arely-Hex 2%) 1 applic DAILY@2000 TOPIC 12/05/19 20:00 03/04/20 19:59 12/18/19 20:16 Dextrose (Dextrose 50%) 25 ml Q30M PRN IV Hypoglycemia 11/29/19 14:15 02/27/20 14:14 Dextrose (Dextrose 50%) 50 ml Q30M PRN IV Hypoglycemia 11/29/19 14:15 02/27/20 14:14 Fentanyl Citrate 2500 mcg/Sodium Chloride 250 ml @ 0 mls/hr Q24H IV 12/13/19 00:00 12/20/19 00:00 12/19/19 02:06 Fluconazole/ Sodium Chloride 100 ml @ 100 mls/hr Q24H IV 12/16/19 22:00 12/23/19 21:59 12/18/19 22:50 Folic Acid (Folate) 1 mg DAILY NG 12/18/19 09:00 01/17/20 08:59 12/19/19 08:07 Hydralazine HCl (Apresoline) 10 mg Q4H PRN IV For High Blood Pressure 11/29/19 15:15 02/27/20 15:14 Loperamide HCl (Imodium) 2 mg Q6H PRN NG Diarrhea 12/12/19 12:45 01/11/20 12:44 Meropenem 500 mg/ Sodium Chloride 50 ml @ 100 mls/hr Q24HRS IVPB 12/16/19 21:30 12/21/19 21:29 12/18/19 22:10 Midazolam HCl 100 ml @ 0 mls/hr Q24H PRN IV Restlessness 12/16/19 10:45 03/15/20 10:44 12/19/19 02:03 Midodrine (Pro-Amatine) 10 mg THREE TIMES A DAY ORAL 12/12/19 13:00 03/11/20 12:59 12/19/19 08:07 Norepinephrine Bitartrate 8 mg/ Dextrose 250 ml @ 0 mls/hr Q24H IV 12/18/19 09:00 01/17/20 08:59 12/19/19 02:08 Ondansetron HCl (Zofran) 4 mg Q6H PRN IVP Nausea & Vomiting 11/29/19 14:15 12/29/19 14:14 Pantoprazole (Protonix) 40 mg DAILY IVP 11/30/19 12:15 12/30/19 12:14 12/19/19 08:07 Vancomycin HCl (Vanco rx to dose) 1 ea DAILY PRN MISC Per rx protocol 12/08/19 19:30 01/07/20 19:29 Vancomycin HCl 750 mg/Sodium Chloride 275 ml @ 183.333 mls/hr ONCE ONCE IVPB 12/19/19 11:00 12/19/19 12:29 12/19/19 11:02 Vitamin B Complex/ Vit C/Folic Acid (Nephrovite) 1 tab DAILY NG 12/16/19 09:00 01/15/20 08:59 12/19/19 08:07 Assessment/Plan Assessment/Plan IMPRESSION: 1. Bilateral pneumonia. 2. Positive COVID-19. 3. Respiratory failure. DISCUSSION: Intubated On AC 20; FiO2 100; PEEP 5; SaO2 99% Abd Xray shows mediastinal PTX Recent CXR 12/06; no PTX or pneumomediastinum seen Repeat CXR today again shows mediastinal PTX Hold proning On Fentanyl due to high triglycerides Hold further proning Saturations are better Grave prognosis I will follow carefully. On HD now S/p Actemra Blood CS ? contaminant Needs ongoing HD; more ultrafiltration Urine CS negative Will decrease PEEP to 5 Sushil Cortes M.D. Sushil Cortes MD December 19, 2019 11:28
--- NOTE | 2019-12-19 12:10 | NUR ---
NURSE NOTES: Patient is having HD at this time. No distress noted.
--- NOTE | 2019-12-19 13:15 | NUR ---
NURSE NOTES: Increased levophed from 12mcg/min to 14mcg/min to prevent BP dropping during HD. Will continue to monitor closely.
--- NOTE | 2019-12-19 13:37 | Cardiac Electrophysiology PN ---
Assessment/Plan Assessment/Plan 1. Atrial fib with RVR 170 before intubation on 12/04/19. Converted to Sinus tach Troponin 0.77. No further atrial fib. In SR 2. Sinus Tachycardia due to respiratory failure and COVID-19 pneumonia. On IV antibiotic per ID. Echo pending COVID. 3. Septic shock. On Levophed 12 Mcg, Midodrine 10 tid and iv Abx. 4. Respiratory failure, on the Vent by Dr. Cortes. 100% Fio2 PEEP 5 5. Acute renal failure. On HD per Dr. Sanchez via RFV [place] 6. Full code DW RN Subjective Subjective Intubated in ICU on 80% Fio2 and PEEP 5 on Levo 12 mcg and Versed drip. Atrial fib with RVR 160s on 12/04/19 but no recurrence. In SR . Getting HD daily Objective Last 24 Hour Vital Signs Date Time Temp Pulse Resp B/P (MAP) Pulse Ox O2 Delivery O2 Flow Rate FiO2 12/19/19 13:12 95 22 80 12/19/19 13:00 99/50 12/19/19 12:30 96 26 95/52 (66) 99 12/19/19 12:00 93 26 103/51 (68) 96 12/19/19 12:00 93 12/19/19 11:30 88 32 99/52 (68) 99 12/19/19 11:00 112/54 12/19/19 11:00 33 Mechanical Ventilator 80 12/19/19 11:00 33 Mechanical Ventilator 80 12/19/19 11:00 82 31 117/59 (78) 99 12/19/19 10:55 85 35 80 12/19/19 10:45 83 30 116/57 (76) 98 12/19/19 10:30 84 27 112/57 (75) 98 12/19/19 10:15 85 33 115/57 (76) 98 12/19/19 10:00 85 30 122/55 (77) 99 12/19/19 10:00 115/57 12/19/19 10:00 31 Mechanical Ventilator 80 12/19/19 10:00 31 Mechanical Ventilator 80 12/19/19 09:30 85 28 117/57 (77) 98 12/19/19 09:02 88 24 80 12/19/19 09:00 84 27 112/60 (77) 98 12/19/19 09:00 122/56 12/19/19 09:00 27 Mechanical Ventilator 80 12/19/19 09:00 27 Mechanical Ventilator 80 12/19/19 08:30 85 25 125/64 (84) 98 12/19/19 08:00 85 12/19/19 08:00 98.2 84 24 112/61 (78) 99 12/19/19 08:00 80 12/19/19 08:00 Mechanical Ventilator 12/19/19 08:00 107/65 12/19/19 08:00 25 Mechanical Ventilator 80 12/19/19 08:00 25 Mechanical Ventilator 80 12/19/19 07:30 84 14 106/58 (74) 100 12/19/19 07:02 86 27 80 12/19/19 07:00 111/55 12/19/19 07:00 16 Mechanical Ventilator 80 12/19/19 07:00 16 Mechanical Ventilator 80 12/19/19 07:00 84 14 105/60 (75) 99 12/19/19 06:30 85 19 111/56 (74) 99 12/19/19 06:00 85 22 103/60 (74) 99 12/19/19 06:00 103/60 12/19/19 06:00 19 Mechanical Ventilator 80 12/19/19 06:00 19 Mechanical Ventilator 80 12/19/19 05:30 87 22 106/60 (75) 98 12/19/19 05:00 112/53 12/19/19 05:00 19 Mechanical Ventilator 80 12/19/19 05:00 19 Mechanical Ventilator 80 12/19/19 05:00 87 19 112/53 (72) 99 12/19/19 04:30 87 21 104/57 (73) 99 12/19/19 04:00 87 18 107/58 (74) 99 12/19/19 04:00 Mechanical Ventilator 12/19/19 04:00 107/58 12/19/19 04:00 18 Mechanical Ventilator 80 12/19/19 04:00 18 Mechanical Ventilator 80 12/19/19 04:00 88 12/19/19 04:00 80 12/19/19 03:30 97.6 91 19 108/54 (72) 100 12/19/19 03:21 82 32 80 12/19/19 03:00 107/56 12/19/19 03:00 20 Mechanical Ventilator 80 12/19/19 03:00 20 Mechanical Ventilator 80 12/19/19 03:00 92 20 107/56 (73) 100 12/19/19 02:30 93 15 110/56 (74) 98 12/19/19 02:08 102/51 12/19/19 02:06 24 Mechanical Ventilator 80 12/19/19 02:03 24 Mechanical Ventilator 80 12/19/19 02:00 95 23 102/51 (68) 100 12/19/19 02:00 102/51 12/19/19 02:00 23 Mechanical Ventilator 80 12/19/19 02:00 23 Mechanical Ventilator 80 12/19/19 01:30 96 24 104/49 (67) 100 12/19/19 01:00 98 24 101/55 (70) 99 12/19/19 01:00 101/58 12/19/19 01:00 27 Mechanical Ventilator 80 12/19/19 01:00 27 Mechanical Ventilator 80 12/19/19 00:30 99 25 109/51 (70) 99 12/19/19 00:00 99 12/19/19 00:00 Mechanical Ventilator 12/19/19 00:00 80 12/19/19 00:00 106/58 12/19/19 00:00 27 Mechanical Ventilator 80 12/19/19 00:00 27 Mechanical Ventilator 80 12/19/19 00:00 97.7 101 25 106/58 (74) 100 12/18/19 23:30 102 25 101/53 (69) 99 12/18/19 23:25 98 20 80 12/18/19 23:00 102 20 106/52 (70) 100 12/18/19 23:00 106/52 12/18/19 23:00 20 Mechanical Ventilator 80 12/18/19 23:00 20 Mechanical Ventilator 80 12/18/19 22:30 98 20 108/62 (77) 100 12/18/19 22:00 97 21 100/61 (74) 100 12/18/19 22:00 100/61 12/18/19 22:00 21 Mechanical Ventilator 80 12/18/19 22:00 21 Mechanical Ventilator 80 12/18/19 21:30 99 20 98/57 (71) 100 12/18/19 21:00 101/60 12/18/19 21:00 20 Mechanical Ventilator 80 12/18/19 21:00 20 Mechanical Ventilator 80 20 21:00 102 22 98/56 (70) 98 5//20 20:30 105 27 101/49 (66) 93 5/20 20:00 102 24 102/53 (69) 90 520 20:00 80 520 20:00 102/53 5/6/20 20:00 27 Mechanical Ventilator 80 20 20:00 27 Mechanical Ventilator 80 20 20:00 104 20 20:00 Mechanical Ventilator 12/18/19 19:33 81 32 80 520 19:30 94 29 117/53 (74) 94 20 19:00 98.5 82 30 116/58 (77) 99 12/18/19 19:00 116/58 12/18/19 19:00 30 Mechanical Ventilator 80 12/18/19 19:00 30 Mechanical Ventilator 80 12/18/19 18:30 81 28 125/61 (82) 100 12/18/19 18:00 87 30 126/61 (82) 100 12/18/19 18:00 127/63 5/20 18:00 31 Mechanical Ventilator 80 12/18/19 18:00 31 Mechanical Ventilator 80 12/18/19 18:00 85 30 127/63 (84) 99 12/17/20 17:30 89 30 119/58 (78) 100 //20 17:30 90 31 119/58 (78) 100 //20 17:00 96 32 113/61 (78) 99 20 17:00 95 32 113/61 (78) 100 20 17:00 113/61 20 17:00 32 Mechanical Ventilator 80 12/18/19 17:00 32 Mechanical Ventilator 80 20 16:30 101 32 122/51 (74) 98 20 16:30 103 32 110/57 (74) 98 20 16:00 Mechanical Ventilator 12/18/19 16:00 98.0 107 32 116/49 (71) 97 20 16:00 116/49 20 16:00 32 Mechanical Ventilator 80 12/18/19 16:00 32 Mechanical Ventilator 80 20 16:00 107 12/18/19 16:00 80 12/18/19 16:00 104 32 124/47 (72) 97 12/18/19 15:41 124/60 12/18/19 15:40 107/55 12/18/19 15:30 106 31 121/49 (73) 99 12/18/19 15:30 104 31 107/55 (72) 97 12/18/19 15:16 106 32 80 12/18/19 15:00 104 31 107/55 (72) 97 12/18/19 15:00 109/53 12/18/19 15:00 33 Mechanical Ventilator 80 12/18/19 15:00 33 Mechanical Ventilator 80 12/18/19 15:00 106 33 109/53 (71) 97 12/18/19 14:30 105 32 121/57 (78) 98 12/18/19 14:00 103 22 109/53 (71) 93 12/18/19 14:00 114/54 12/18/19 14:00 30 Mechanical Ventilator 100 12/18/19 14:00 30 Mechanical Ventilator 100 Intake and Output 12/18/19 12/19/19 19:00 07:00 Intake Total 977.635 ml 1045.0 ml Output Total 0 ml 2100 ml Balance 977.635 ml -1055.0 ml Free Water 80 ml IV Total 477.635 ml 660.0 ml Tube Feeding 420 ml 385 ml Output Urine Total 0 ml 0 ml Stool Total 100 ml Hemodialysis UF 2000 ml Laboratory Tests Test 12/19/19 03:45 White Blood Count 27.8 K/UL (4.8-10.8) *H Red Blood Count 3.05 M/UL (4.70-6.10) L Hemoglobin 9.3 G/DL (14.2-18.0) L Hematocrit 28.6 % (42.0-52.0) L Mean Corpuscular Volume 94 FL (80-99) Mean Corpuscular Hemoglobin 30.5 PG (27.0-31.0) Mean Corpuscular Hemoglobin Concent 32.5 G/DL (32.0-36.0) Red Cell Distribution Width 14.1 % (11.6-14.8) Platelet Count 154 K/UL (150-450) Mean Platelet Volume 7.5 FL (6.5-10.1) Neutrophils (%) (Auto) % (45.0-75.0) Lymphocytes (%) (Auto) % (20.0-45.0) Monocytes (%) (Auto) % (1.0-10.0) Eosinophils (%) (Auto) % (0.0-3.0) Basophils (%) (Auto) % (0.0-2.0) Differential Total Cells Counted 100 Neutrophils % (Manual) 91 % (45-75) H Lymphocytes % (Manual) 5 % (20-45) L Monocytes % (Manual) 4 % (1-10) Eosinophils % (Manual) 0 % (0-3) Basophils % (Manual) 0 % (0-2) Band Neutrophils 0 % (0-8) Platelet Estimate Adequate Platelet Morphology Normal Hypochromasia 2+ Anisocytosis 1+ Sodium Level 136 MMOL/L (136-145) Potassium Level 5.4 MMOL/L (3.5-5.1) H Chloride Level 97 MMOL/L (98-107) L Carbon Dioxide Level 32 MMOL/L (21-32) Anion Gap 7 mmol/L (5-15) Blood Urea Nitrogen 57 mg/dL (7-18) H Creatinine 3.6 MG/DL (0.55-1.30) H Estimat Glomerular Filtration Rate 17.5 mL/min (>60) Glucose Level 127 MG/DL (74-106) H Calcium Level 8.0 MG/DL (8.5-10.1) L Random Vancomycin Level 15.6 ug/mL Microbiology Date/Time Source Procedure Growth Status 12/17/19 06:55 Blood Blood Culture - Preliminary NO GROWTH AFTER 24 HOURS Resulted 12/17/19 06:40 Blood Blood Culture - Preliminary NO GROWTH AFTER 24 HOURS Resulted 12/16/19 16:00 Sputum Gram Stain - Final Complete 12/16/19 16:00 Sputum Sputum Culture - Final NORMAL UPPER RESPIRATORY ALISIA PRESENT Complete 12/17/19 00:38 Indwelling Cath Urine Culture - Final NO GROWTH AFTER 48 HOURS Complete Objective HEAD AND NECK: Orally intubated No JVD LUNGS: Decreased breath sounds. Coarse rhonchi. CARDIOVASCULAR: Tachycardic S1 and S2 with no gallop. ABDOMEN: Soft. EXTREMITIES: 1 plus pitting edema. RFV [place] in place Raul Appiah MD December 19, 2019 13:37
--- NOTE | 2019-12-19 14:26 | NUR ---
CASE MANAGEMENT: REVIEW 12/19/2019 SI:SEPSIS. ACUTE RESP FAILURE VS: 98.2 HR 84 RR 25 B/P 112/61 SATS 99% ON MECH VENT FIO2 80 LABS: WBC 27.8 K 5.4 CL 97 BUN 57 CR 3.6 GLU 127 CA 8 IS:PROTONIX IV QD FENTANYL IV PER PARAMETERS FLUCONAZOLE IV Q24H LEVOPHED IV PER PARAMETERS MEROPENEM IV Q24H MIDODRINE PO TID ICU
--- NOTE | 2019-12-19 14:45 | NUR ---
NURSE NOTES: Patient is still having HD. No distress noted. Will continue plan of care.
--- NOTE | 2019-12-19 15:30 | NUR ---
NURSE NOTES: HD done. 2L out. Still on levophed 14mcg/min. BP stable at this time. Will continue to monitor closely.
--- NOTE | 2019-12-19 16:15 | NUR ---
NURSE NOTES: Bed bath given. Kept dry, clean, comfortable and HOB>30. Will continue plan of care.
--- NOTE | 2019-12-19 17:39 | Urology Progress Note ---
Assessment/Plan Status: unchanged Assessment/Plan: 1. Phimosis. 2. Retention. 3. Hematuria. 4. Pyuria. 5. Proteinuria. 6. Acute kidney injury. 7. Meatal stenosis. monitor clinically maintain barnes, placed 12/04 hand irrigate PRN monitor urine output and renal fxn consider renal imaging abx as ordered HD per nephrology f/u on blood cx Subjective Allergies: Coded Allergies: No Known Allergies (Unverified , 11/29/19) Subjective remains on vent, still with minimal urine output, HD Objective Last 24 Hour Vital Signs Date Time Temp Pulse Resp B/P (MAP) Pulse Ox O2 Delivery O2 Flow Rate FiO2 12/19/19 17:34 104 17 107/56 (73) 100 12/19/19 17:01 104 17 105/48 (67) 100 12/19/19 16:45 106 20 80 12/19/19 16:30 106 17 104/50 (68) 100 12/19/19 16:04 105 17 88/46 (60) 98 12/19/19 16:00 104 12/19/19 16:00 80 12/19/19 16:00 Mechanical Ventilator 12/19/19 16:00 88/46 12/19/19 16:00 20 Non-Rebreather 80 12/19/19 16:00 20 Mechanical Ventilator 80 12/19/19 15:30 106 17 97/60 (72) 100 12/19/19 15:04 101 17 92/55 (67) 100 12/19/19 15:00 112/54 12/19/19 15:00 20 Mechanical Ventilator 80 12/19/19 15:00 20 Mechanical Ventilator 80 12/19/19 14:54 106 21 80 12/19/19 14:30 100 17 98/55 (69) 100 12/19/19 14:15 98/55 12/19/19 14:00 100/57 12/19/19 14:00 20 Mechanical Ventilator 80 12/19/19 14:00 20 Mechanical Ventilator 80 12/19/19 14:00 98 17 99/60 (73) 100 12/19/19 13:45 99/60 12/19/19 13:30 105/56 12/19/19 13:30 98 17 105/56 (72) 100 12/19/19 13:15 101/59 12/19/19 13:15 20 Mechanical Ventilator 80 5/7/20 13:12 95 22 80 12/19/19 13:00 99/50 12/19/19 13:00 96 17 103/58 (73) 100 12/19/19 12:59 107/53 12/19/19 12:59 20 Mechanical Ventilator 80 12/19/19 12:59 20 Mechanical Ventilator 80 12/19/19 12:30 96 26 95/52 (66) 99 12/19/19 12:00 93 26 103/51 (68) 96 12/19/19 12:00 Mechanical Ventilator 12/19/19 12:00 103/51 12/19/19 12:00 26 Mechanical Ventilator 80 12/19/19 12:00 Mechanical Ventilator 100 12/19/19 12:00 93 12/19/19 12:00 80 12/19/19 11:30 88 32 99/52 (68) 99 12/19/19 11:00 112/54 12/19/19 11:00 33 Mechanical Ventilator 80 12/19/19 11:00 33 Mechanical Ventilator 80 12/19/19 11:00 82 31 117/59 (78) 99 12/19/19 10:55 85 35 80 12/19/19 10:45 83 30 116/57 (76) 98 12/19/19 10:30 84 27 112/57 (75) 98 12/19/19 10:15 85 33 115/57 (76) 98 12/19/19 10:00 85 30 122/55 (77) 99 12/19/19 10:00 115/57 12/19/19 10:00 31 Mechanical Ventilator 80 12/19/19 10:00 31 Mechanical Ventilator 80 12/19/19 09:30 85 28 117/57 (77) 98 12/19/19 09:02 88 24 80 12/19/19 09:00 84 27 112/60 (77) 98 12/19/19 09:00 122/56 12/19/19 09:00 27 Mechanical Ventilator 80 12/19/19 09:00 27 Mechanical Ventilator 80 12/19/19 08:30 85 25 125/64 (84) 98 12/19/19 08:00 85 12/19/19 08:00 98.2 84 24 112/61 (78) 99 12/19/19 08:00 80 12/19/19 08:00 Mechanical Ventilator 12/19/19 08:00 107/65 12/19/19 08:00 25 Mechanical Ventilator 80 12/19/19 08:00 25 Mechanical Ventilator 80 12/19/19 07:30 84 14 106/58 (74) 100 12/19/19 07:02 86 27 80 12/19/19 07:00 111/55 12/19/19 07:00 16 Mechanical Ventilator 80 12/19/19 07:00 16 Mechanical Ventilator 80 12/19/19 07:00 84 14 105/60 (75) 99 12/19/19 06:30 85 19 111/56 (74) 99 12/19/19 06:00 85 22 103/60 (74) 99 12/19/19 06:00 103/60 12/19/19 06:00 19 Mechanical Ventilator 80 12/19/19 06:00 19 Mechanical Ventilator 80 12/19/19 05:30 87 22 106/60 (75) 98 12/19/19 05:00 112/53 12/19/19 05:00 19 Mechanical Ventilator 80 12/19/19 05:00 19 Mechanical Ventilator 80 12/19/19 05:00 87 19 112/53 (72) 99 12/19/19 04:30 87 21 104/57 (73) 99 12/19/19 04:00 87 18 107/58 (74) 99 12/19/19 04:00 Mechanical Ventilator 12/19/19 04:00 107/58 12/19/19 04:00 18 Mechanical Ventilator 80 12/19/19 04:00 18 Mechanical Ventilator 80 12/19/19 04:00 88 12/19/19 04:00 80 12/19/19 03:30 97.6 91 19 108/54 (72) 100 12/19/19 03:21 82 32 80 12/19/19 03:00 107/56 12/19/19 03:00 20 Mechanical Ventilator 80 12/19/19 03:00 20 Mechanical Ventilator 80 12/19/19 03:00 92 20 107/56 (73) 100 12/19/19 02:30 93 15 110/56 (74) 98 12/19/19 02:08 102/51 12/19/19 02:06 24 Mechanical Ventilator 80 12/19/19 02:03 24 Mechanical Ventilator 80 12/19/19 02:00 95 23 102/51 (68) 100 5/7/20 02:00 102/51 12/19/19 02:00 23 Mechanical Ventilator 80 12/19/19 02:00 23 Mechanical Ventilator 80 12/19/19 01:30 96 24 104/49 (67) 100 12/19/19 01:00 98 24 101/55 (70) 99 12/19/19 01:00 101/58 12/19/19 01:00 27 Mechanical Ventilator 80 12/19/19 01:00 27 Mechanical Ventilator 80 12/19/19 00:30 99 25 109/51 (70) 99 12/19/19 00:00 99 12/19/19 00:00 Mechanical Ventilator 12/19/19 00:00 80 12/19/19 00:00 106/58 12/19/19 00:00 27 Mechanical Ventilator 80 12/19/19 00:00 27 Mechanical Ventilator 80 12/19/19 00:00 97.7 101 25 106/58 (74) 100 12/18/19 23:30 102 25 101/53 (69) 99 12/18/19 23:25 98 20 80 12/18/19 23:00 102 20 106/52 (70) 100 12/18/19 23:00 106/52 12/18/19 23:00 20 Mechanical Ventilator 80 12/18/19 23:00 20 Mechanical Ventilator 80 12/18/19 22:30 98 20 108/62 (77) 100 12/18/19 22:00 97 21 100/61 (74) 100 12/18/19 22:00 100/61 12/18/19 22:00 21 Mechanical Ventilator 80 12/18/19 22:00 21 Mechanical Ventilator 80 12/18/19 21:30 99 20 98/57 (71) 100 12/18/19 21:00 101/60 12/18/19 21:00 20 Mechanical Ventilator 80 12/18/19 21:00 20 Mechanical Ventilator 80 12/18/19 21:00 102 22 98/56 (70) 98 12/18/19 20:30 105 27 101/49 (66) 93 12/18/19 20:00 102 24 102/53 (69) 90 12/18/19 20:00 80 12/18/19 20:00 102/53 12/18/19 20:00 27 Mechanical Ventilator 80 12/18/19 20:00 27 Mechanical Ventilator 80 12/18/19 20:00 104 12/18/19 20:00 Mechanical Ventilator 12/18/19 19:33 81 32 80 12/18/19 19:30 94 29 117/53 (74) 94 12/18/19 19:00 98.5 82 30 116/58 (77) 99 12/18/19 19:00 116/58 12/18/19 19:00 30 Mechanical Ventilator 80 12/18/19 19:00 30 Mechanical Ventilator 80 12/18/19 18:30 81 28 125/61 (82) 100 12/18/19 18:00 87 30 126/61 (82) 100 12/18/19 18:00 127/63 12/18/19 18:00 31 Mechanical Ventilator 80 12/18/19 18:00 31 Mechanical Ventilator 80 12/18/19 18:00 85 30 127/63 (84) 99 Intake and Output 12/18/19 12/19/19 19:00 07:00 Intake Total 977.635 ml 1080.0 ml Output Total 0 ml 2100 ml Balance 977.635 ml -1020.0 ml Free Water 80 ml IV Total 477.635 ml 660.0 ml Tube Feeding 420 ml 420 ml Output Urine Total 0 ml 0 ml Stool Total 100 ml Hemodialysis UF 2000 ml Microbiology Date/Time Source Procedure Growth Status 12/17/19 06:55 Blood Blood Culture - Preliminary NO GROWTH AFTER 24 HOURS Resulted 12/16/19 16:00 Sputum Gram Stain - Final Complete 12/16/19 16:00 Sputum Sputum Culture - Final NORMAL UPPER RESPIRATORY ALISIA PRESENT Complete 12/11/19 22:50 Stool Clostridium difficile Toxin Assay - Final Complete 12/17/19 00:38 Indwelling Cath Urine Culture - Final NO GROWTH AFTER 48 HOURS Complete Current Medications Medications (Trade) Dose Ordered Sig/Vicki Route PRN Reason Start Time Stop Time Status Last Admin Dose Admin Acetaminophen (Tylenol) 650 mg Q4H PRN NG Temp >100.5 12/06/19 14:15 01/05/20 14:14 12/18/19 12:41 Acetaminophen (Tylenol) 650 mg Q4H PRN RECTAL Mild Pain (Pain Scale 1-3) 12/04/19 11:45 01/03/20 11:44 12/06/19 19:17 Chlorhexidine Gluconate (Arely-Hex 2%) 1 applic DAILY@2000 TOPIC 12/05/19 20:00 03/04/20 19:59 12/18/19 20:16 Dextrose (Dextrose 50%) 25 ml Q30M PRN IV Hypoglycemia 11/29/19 14:15 02/27/20 14:14 Dextrose (Dextrose 50%) 50 ml Q30M PRN IV Hypoglycemia 11/29/19 14:15 02/27/20 14:14 Fentanyl Citrate 2500 mcg/Sodium Chloride 250 ml @ 0 mls/hr Q24H IV 12/13/19 00:00 12/20/19 00:00 12/19/19 02:06 Fluconazole/ Sodium Chloride 100 ml @ 100 mls/hr Q24H IV 12/16/19 22:00 12/23/19 21:59 12/18/19 22:50 Folic Acid (Folate) 1 mg DAILY NG 12/18/19 09:00 01/17/20 08:59 12/19/19 08:07 Hydralazine HCl (Apresoline) 10 mg Q4H PRN IV For High Blood Pressure 11/29/19 15:15 02/27/20 15:14 Loperamide HCl (Imodium) 2 mg Q6H PRN NG Diarrhea 12/12/19 12:45 01/11/20 12:44 Meropenem 500 mg/ Sodium Chloride 50 ml @ 100 mls/hr Q24HRS IVPB 12/16/19 21:30 12/21/19 21:29 12/18/19 22:10 Midazolam HCl 100 ml @ 0 mls/hr Q24H PRN IV Restlessness 12/16/19 10:45 03/15/20 10:44 12/19/19 02:03 Midodrine (Pro-Amatine) 10 mg THREE TIMES A DAY ORAL 12/12/19 13:00 03/11/20 12:59 12/19/19 17:12 Norepinephrine Bitartrate 8 mg/ Dextrose 250 ml @ 0 mls/hr Q24H IV 12/18/19 09:00 01/17/20 08:59 12/19/19 13:00 Ondansetron HCl (Zofran) 4 mg Q6H PRN IVP Nausea & Vomiting 11/29/19 14:15 12/29/19 14:14 Pantoprazole (Protonix) 40 mg DAILY IVP 11/30/19 12:15 12/30/19 12:14 12/19/19 08:07 Vancomycin HCl (Vanco rx to dose) 1 ea DAILY PRN MISC Per rx protocol 12/08/19 19:30 01/07/20 19:29 Vitamin B Complex/ Vit C/Folic Acid (Nephrovite) 1 tab DAILY NG 12/16/19 09:00 01/15/20 08:59 12/19/19 08:07 Laboratory Tests 12/19/19 03:45: White Blood Count 27.8*H, Red Blood Count 3.05L, Hemoglobin 9.3L, Hematocrit 28.6L, Mean Corpuscular Volume 94, Mean Corpuscular Hemoglobin 30.5, Mean Corpuscular Hemoglobin Concent 32.5, Red Cell Distribution Width 14.1, Platelet Count 154, Mean Platelet Volume 7.5, Neutrophils (%) (Auto) , Lymphocytes (%) ( Auto) , Monocytes (%) (Auto) , Eosinophils (%) (Auto) , Basophils (%) (Auto) , Differential Total Cells Counted 100, Neutrophils % (Manual) 91H, Lymphocytes % (Manual) 5L, Monocytes % (Manual) 4, Eosinophils % (Manual) 0, Basophils % ( Manual) 0, Band Neutrophils 0, Platelet Estimate Adequate, Platelet Morphology Normal, Hypochromasia 2+, Anisocytosis 1+, Sodium Level 136, Potassium Level 5.4H, Chloride Level 97L, Carbon Dioxide Level 32, Anion Gap 7, Blood Urea Nitrogen 57H, Creatinine 3.6H, Estimat Glomerular Filtration Rate 17.5, Glucose Level 127H, Calcium Level 8.0L, Random Vancomycin Level 15.6 Height (Feet): 5 Height (Inches): 6.00 Weight (Pounds): 159 Objective stable no bleeding at prepuce barnes indwelling, marge urine Kai Berger MD December 19, 2019 17:39
--- NOTE | 2019-12-19 18:02 | NUR ---
NURSE NOTES: Patient has low fever 99.8, Rectal. Started cooling measure.
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
--- NOTE | 2019-12-19 19:05 | General Progress Note ---
Assessment/Plan Status: unchanged Assessment/Plan: . ASSESSMENT RESP/ID #Acute Hypoxic Respiratory Failure 2/2 COVID +, HCAP + #Septic Shock #PTX/Pneumomediastinum--> to high risk for intervention Appreciate Pulm/ID --> Vent Management Fentanyl for Sedation 2/2 elevated TG Pressor support, maintain MAP > 65 ABG per pulm Patient is s/p IL-6 inhibitor and Plaquenil Trend predictive markers Q3 days; CRP, Pro-Calcitonin, Ferritin, Ddimer Monitor Ddimer, if 10X upper limit, consider AC for embolic prevention Continue Broad Spectrum AB per ID, Cx per ID (currently on meropenem, vancomycin , fluconazole) Surgery to monitor PTX NEPHRO #ARF now on HD Continue HD per Nephro, last HD 12/18 GI #Shock Liver Appreciate GI recs Liver enzymes also likely elevated 2/2 COVID + state CV #Tachcyardia, s/p AFib now converted to sinus Appreciate Cardio management DVT/GI ppx, Tube Feeding, FULL CODE Subjective Date patient seen: December 19, 2019 Allergies: Coded Allergies: No Known Allergies (Unverified , 11/29/19) Subjective Patient remains intubated and sedated; currently on levophed, fentanyl, versed. Tx ongoing for COVID w/ Acute hypoxic Resp Failure, along w/ multiorgan failure. Objective Last 24 Hour Vital Signs Date Time Temp Pulse Resp B/P (MAP) Pulse Ox O2 Delivery O2 Flow Rate FiO2 12/19/19 18:41 20 Mechanical Ventilator 80 12/19/19 18:00 103 21 114/56 (75) 100 12/19/19 17:34 104 17 107/56 (73) 100 12/19/19 17:01 104 17 105/48 (67) 100 12/19/19 17:00 97/54 12/19/19 17:00 20 Mechanical Ventilator 80 12/19/19 17:00 20 Mechanical Ventilator 80 12/19/19 16:45 106 20 80 12/19/19 16:30 106 17 104/50 (68) 100 12/19/19 16:04 105 17 88/46 (60) 98 12/19/19 16:00 104 12/19/19 16:00 80 12/19/19 16:00 Mechanical Ventilator 12/19/19 16:00 88/46 12/19/19 16:00 20 Non-Rebreather 80 12/19/19 16:00 20 Mechanical Ventilator 80 12/19/19 16:00 98.8 105 17 88/46 (60) 98 12/19/19 15:30 106 17 97/60 (72) 100 12/19/19 15:04 101 17 92/55 (67) 100 12/19/19 15:00 112/54 12/19/19 15:00 20 Mechanical Ventilator 80 12/19/19 15:00 20 Mechanical Ventilator 80 12/19/19 14:54 106 21 80 12/19/19 14:30 100 17 98/55 (69) 100 12/19/19 14:15 98/55 12/19/19 14:00 100/57 12/19/19 14:00 20 Mechanical Ventilator 80 12/19/19 14:00 20 Mechanical Ventilator 80 12/19/19 14:00 98 17 99/60 (73) 100 12/19/19 13:45 99/60 12/19/19 13:30 105/56 12/19/19 13:30 98 17 105/56 (72) 100 12/19/19 13:15 101/59 12/19/19 13:15 20 Mechanical Ventilator 80 12/19/19 13:12 95 22 80 12/19/19 13:00 99/50 12/19/19 13:00 96 17 103/58 (73) 100 12/19/19 12:59 107/53 12/19/19 12:59 20 Mechanical Ventilator 80 12/19/19 12:59 20 Mechanical Ventilator 80 12/19/19 12:30 96 26 95/52 (66) 99 12/19/19 12:00 93 26 103/51 (68) 96 12/19/19 12:00 Mechanical Ventilator 12/19/19 12:00 103/51 12/19/19 12:00 26 Mechanical Ventilator 80 12/19/19 12:00 Mechanical Ventilator 100 12/19/19 12:00 93 12/19/19 12:00 80 12/19/19 11:30 88 32 99/52 (68) 99 12/19/19 11:00 112/54 12/19/19 11:00 33 Mechanical Ventilator 80 12/19/19 11:00 33 Mechanical Ventilator 80 12/19/19 11:00 82 31 117/59 (78) 99 12/19/19 10:55 85 35 80 12/19/19 10:45 83 30 116/57 (76) 98 12/19/19 10:30 84 27 112/57 (75) 98 12/19/19 10:15 85 33 115/57 (76) 98 12/19/19 10:00 85 30 122/55 (77) 99 12/19/19 10:00 115/57 12/19/19 10:00 31 Mechanical Ventilator 80 12/19/19 10:00 31 Mechanical Ventilator 80 12/19/19 09:30 85 28 117/57 (77) 98 12/19/19 09:02 88 24 80 12/19/19 09:00 84 27 112/60 (77) 98 12/19/19 09:00 122/56 12/19/19 09:00 27 Mechanical Ventilator 80 12/19/19 09:00 27 Mechanical Ventilator 80 12/19/19 08:30 85 25 125/64 (84) 98 12/19/19 08:00 85 12/19/19 08:00 98.2 84 24 112/61 (78) 99 12/19/19 08:00 80 12/19/19 08:00 Mechanical Ventilator 12/19/19 08:00 107/65 12/19/19 08:00 25 Mechanical Ventilator 80 12/19/19 08:00 25 Mechanical Ventilator 80 12/19/19 07:30 84 14 106/58 (74) 100 12/19/19 07:02 86 27 80 12/19/19 07:00 111/55 12/19/19 07:00 16 Mechanical Ventilator 80 12/19/19 07:00 16 Mechanical Ventilator 80 12/19/19 07:00 84 14 105/60 (75) 99 12/19/19 06:30 85 19 111/56 (74) 99 12/19/19 06:00 85 22 103/60 (74) 99 12/19/19 06:00 103/60 12/19/19 06:00 19 Mechanical Ventilator 80 12/19/19 06:00 19 Mechanical Ventilator 80 12/19/19 05:30 87 22 106/60 (75) 98 12/19/19 05:00 112/53 12/19/19 05:00 19 Mechanical Ventilator 80 12/19/19 05:00 19 Mechanical Ventilator 80 12/19/19 05:00 87 19 112/53 (72) 99 12/19/19 04:30 87 21 104/57 (73) 99 12/19/19 04:00 87 18 107/58 (74) 99 12/19/19 04:00 Mechanical Ventilator 12/19/19 04:00 107/58 12/19/19 04:00 18 Mechanical Ventilator 80 12/19/19 04:00 18 Mechanical Ventilator 80 12/19/19 04:00 88 12/19/19 04:00 80 12/19/19 03:30 97.6 91 19 108/54 (72) 100 12/19/19 03:21 82 32 80 12/19/19 03:00 107/56 12/19/19 03:00 20 Mechanical Ventilator 80 12/19/19 03:00 20 Mechanical Ventilator 80 12/19/19 03:00 92 20 107/56 (73) 100 12/19/19 02:30 93 15 110/56 (74) 98 12/19/19 02:08 102/51 12/19/19 02:06 24 Mechanical Ventilator 80 12/19/19 02:03 24 Mechanical Ventilator 80 12/19/19 02:00 95 23 102/51 (68) 100 12/19/19 02:00 102/51 12/19/19 02:00 23 Mechanical Ventilator 80 12/19/19 02:00 23 Mechanical Ventilator 80 12/19/19 01:30 96 24 104/49 (67) 100 12/19/19 01:00 98 24 101/55 (70) 99 12/19/19 01:00 101/58 12/19/19 01:00 27 Mechanical Ventilator 80 12/19/19 01:00 27 Mechanical Ventilator 80 12/19/19 00:30 99 25 109/51 (70) 99 12/19/19 00:00 99 12/19/19 00:00 Mechanical Ventilator 12/19/19 00:00 80 12/19/19 00:00 106/58 12/19/19 00:00 27 Mechanical Ventilator 80 12/19/19 00:00 27 Mechanical Ventilator 80 12/19/19 00:00 97.7 101 25 106/58 (74) 100 12/18/19 23:30 102 25 101/53 (69) 99 12/18/19 23:25 98 20 80 12/18/19 23:00 102 20 106/52 (70) 100 12/18/19 23:00 106/52 12/18/19 23:00 20 Mechanical Ventilator 80 12/18/19 23:00 20 Mechanical Ventilator 80 12/18/19 22:30 98 20 108/62 (77) 100 12/18/19 22:00 97 21 100/61 (74) 100 12/18/19 22:00 100/61 12/18/19 22:00 21 Mechanical Ventilator 80 12/18/19 22:00 21 Mechanical Ventilator 80 12/18/19 21:30 99 20 98/57 (71) 100 12/18/19 21:00 101/60 12/18/19 21:00 20 Mechanical Ventilator 80 12/18/19 21:00 20 Mechanical Ventilator 80 12/18/19 21:00 102 22 98/56 (70) 98 12/18/19 20:30 105 27 101/49 (66) 93 12/18/19 20:00 102 24 102/53 (69) 90 12/18/19 20:00 80 12/18/19 20:00 102/53 12/18/19 20:00 27 Mechanical Ventilator 80 12/18/19 20:00 27 Mechanical Ventilator 80 12/18/19 20:00 104 12/18/19 20:00 Mechanical Ventilator 12/18/19 19:33 81 32 80 12/18/19 19:30 94 29 117/53 (74) 94 12/18/19 19:00 98.5 82 30 116/58 (77) 99 12/18/19 19:00 116/58 12/18/19 19:00 30 Mechanical Ventilator 80 12/18/19 19:00 30 Mechanical Ventilator 80 Intake and Output 12/18/19 12/19/19 19:00 07:00 Intake Total 977.635 ml 1080.0 ml Output Total 0 ml 2100 ml Balance 977.635 ml -1020.0 ml Free Water 80 ml IV Total 477.635 ml 660.0 ml Tube Feeding 420 ml 420 ml Output Urine Total 0 ml 0 ml Stool Total 100 ml Hemodialysis UF 2000 ml Laboratory Tests 12/19/19 03:45: White Blood Count 27.8*H, Red Blood Count 3.05L, Hemoglobin 9.3L, Hematocrit 28.6L, Mean Corpuscular Volume 94, Mean Corpuscular Hemoglobin 30.5, Mean Corpuscular Hemoglobin Concent 32.5, Red Cell Distribution Width 14.1, Platelet Count 154, Mean Platelet Volume 7.5, Neutrophils (%) (Auto) , Lymphocytes (%) ( Auto) , Monocytes (%) (Auto) , Eosinophils (%) (Auto) , Basophils (%) (Auto) , Differential Total Cells Counted 100, Neutrophils % (Manual) 91H, Lymphocytes % (Manual) 5L, Monocytes % (Manual) 4, Eosinophils % (Manual) 0, Basophils % ( Manual) 0, Band Neutrophils 0, Platelet Estimate Adequate, Platelet Morphology Normal, Hypochromasia 2+, Anisocytosis 1+, Sodium Level 136, Potassium Level 5.4H, Chloride Level 97L, Carbon Dioxide Level 32, Anion Gap 7, Blood Urea Nitrogen 57H, Creatinine 3.6H, Estimat Glomerular Filtration Rate 17.5, Glucose Level 127H, Calcium Level 8.0L, Random Vancomycin Level 15.6 Height (Feet): 5 Height (Inches): 6.00 Weight (Pounds): 159 General Appearance: other - intubated, sedated, critical patient EENT: other - ET tube in place Cardiovascular: normal rate, regular rhythm, other - currently requiring pressor support Respiratory/Chest: other - Vented lung sounds Abdomen: soft, no organomegaly, other - NG tube Edema: 2+ Generalized Neurologic: other - sedated Talya Noriega D.O. December 19, 2019 19:05
--- NOTE | 2019-12-19 19:22 | NUR ---
HAND-OFF: Report given to Ortega Smith RN. Endorsed plan of care.
--- NOTE | 2019-12-19 19:30 | NUR ---
NURSE NOTES: Received report from Mirza LACKEY. Upon visual inspection, patient presents in no acute distress. Patient sedated. Attached to monitor; vitals stable to baseline.
--- NOTE | 2019-12-19 19:37 | NUR ---
RESPIRATORY NOTE: Received pt on AC 20, 500VT, 80%, PEEP +5. Pt intubated w/ ETT 8.0 @ 24cm, secured by anchorfast. . Pt sedated. B/S louise. rhonchi, sxn small amounts of thick, b/bloody rown secretions w/ occasional blood clots & plugs. Pt has optifoam on cheeks as he have skin irritations from proning. RN aware. Vent plugged into red outlet, ambubag at bedside. Pt in no apparent distress at this time. Will continue to monitor pt.
[2019-12-19] MEDS: Dyna-Hex 2% Top Sol 2oz TOPIC SCH (21:03)
--- NOTE | 2019-12-19 21:45 | NUR ---
NURSE NOTES: Patient in bed with no acute distress. Vitals stable to baseline. ETT 8; 24cm at lipline; ac 20; tv 500; peep 5; fio2 80%. Pt tolerating vent settings; spo2 99% at 25 breaths per min. OGT noted; flushed and patent; Nepro running at goal of 35cc/hr; no residual noted; flushed 60 ml. . Aspiration precautions observed; HOB raised >30 degrees. Right femoral Bismark noted; flushed and patent; levophed infusing at 14 mcg/min, versed at 5mg/hr and Fentanyl at 150mcg/hour. Right hand 20g IV noted; initiated IV ABX as prescribed. Joe and rectal tube noted; draining well to gravity. Rectal thermometer probe in place; 99.8 F. Droplet precautions observed. All safety measures met; side rails raised x3; bed locked at lowest position; bed alarm engaged on zone 2; call light within reach. Addendum: 12/21/19 at 0720 by Ortega Garza RN NGT not OGT.
[2019-12-20] VITALS (51 sets, daily range): BP systolic 109–138; BP diastolic 51–68
--- NOTE | 2019-12-20 | NUR ---
NURSE NOTES: Patient warm to touch. Temp 99.2 rectal[address] patient on cooling blanket. Will continue to monitor.
--- NOTE | 2019-12-20 02:00 | NUR ---
NURSE NOTES: Upon visual inspection, patient resting in bed with no acute signs of distress. Vitals remains stable to baseline. Will continue to monitor.
--- NOTE | 2019-12-20 04:00 | NUR ---
NURSE NOTES: AM labs drawn; sent down to lab. Bismark dressing remains intact; no saturation of blood noted; flushed and patent; no change to IV titrations. Provided patient with complete bedbath; changed linens and gown. Sacral redness noted. Pressure wound noted to bilateral cheeks; changed dressing. Assisted RT with change of anchor fast. Patient and vitals remain stable to baseline. Repositioned for comfort; bilateral upper and lower extremities raised. Will continue to monitor.
[2019-12-20 05:39] LABS: HEMATOCRIT 27.9 % (42.0-52.0); HEMOGLOBIN 9.1 G/DL (14.2-18.0); MEAN CORPUSCULAR VOLUME 92 FL (80-99); PLATELET COUNT 195 K/UL (150-450); RED BLOOD COUNT 3.03 M/UL (4.70-6.10); RED CELL DISTRIBUTION WIDTH 14.7 % (11.6-14.8)
[2019-12-20 05:48] LABS: WHITE BLOOD COUNT 25.8 K/UL (4.8-10.8)
[2019-12-20 05:59] LABS: ALANINE AMINOTRANSFERASE 40 U/L (12-78); ALBUMIN 2.5 G/DL (3.4-5.0); ALBUMIN/GLOBULIN RATIO 0.6 (1.0-2.7); ALKALINE PHOSPHATASE 254 U/L (46-116); ANION GAP 5 mmol/L (5-15); ASPARTATE AMINO TRANSFERASE 50 U/L (15-37); BILIRUBIN,TOTAL 0.6 MG/DL (0.2-1.0); BLOOD UREA NITROGEN 50 mg/dL (7-18); CALCIUM 8.7 MG/DL (8.5-10.1); CARBON DIOXIDE 33 MMOL/L (21-32); CHLORIDE 96 MMOL/L (98-107); CREATININE 3.4 MG/DL (0.55-1.30); POTASSIUM 4.4 MMOL/L (3.5-5.1); SODIUM 134 MMOL/L (136-145)
--- NOTE | 2019-12-20 06:00 | NUR ---
NURSE NOTES: Patient sleeping without acute distress. Vitals remain stable to baseline.Emptied barnes and rectal tube; documented output. All safety measures met.
[2019-12-20 06:35] LABS: PHOSPHORUS 5.3 MG/DL (2.5-4.9)
--- NOTE | 2019-12-20 07:30 | NUR ---
HAND-OFF: Report given to DARYA Stearns. Patient in stable condition. Endorsed continuity of care.
--- NOTE | 2019-12-20 08:00 | NUR ---
NURSE NOTES: Received change of shift report from Ortega Smith RN. Pt is sedated RASS score -2 light sedation while on Versed 5mg/hr and Fentanyl 150mcg/hr. Pt is orally intubated, ETT 8 at 24cm lipline, with settings AC20, VT500, Peep 5, FIO2 80% at 96% 02Sat. NSR on quality assurance monitor. HR 80's while on Levophed 14mcg/min via right femoral TLC. Pt also has right hand #20G peripheral IV access, patent/intact. Temp 98.3F axillary, pt is on cooling blanket, currently turned off. Left nare NGT with feeding Nepro 35ml/hr. No noted residual. Abdomen is large, round, soft/nontender to touch with hypoactive bowel sounds. Rectal tube present draining brown/soft/liquid stool. Joe catheter draining to gravity, pt is oliguric, receiving HD treatments. Skin has pressure ulcer on bilateral cheeks, lips, mid chest, and sacral redness, areas are covered with optifoam dressings. Pt is on P200 pressure releasing mattress, with SCDs on bilateral LEs. HOB at 30 degrees, bed locked, in lowest position, and three side rails up. Will continue to monitor and follow plan of care.
[2019-12-20] MEDS: Midodrine 10mg tab ORAL SCH ×3 (08:27→16:33)
[2019-12-20] MEDS: Nephrovite tab (Rena-Vite) NG SCH (08:27)
[2019-12-20] MEDS: Pantoprazole Inj IVP SCH (08:27)
--- NOTE | 2019-12-20 08:50 | NUR ---
CASE MANAGEMENT: REVIEW 12/20/2019 SI:SEPSIS. ACUTE RESP FAILURE VS: T 97.9 HR 65 RR 22 B/P 126/62 SATS 98% ON MECH VENT FIO2 80 LABS: WBC 25.8 NA 134 CL 96 CO2 33 BUN 50 CR 3.4 GLU 129 PHOS 5.3 MG 2.5 AST 50 ALP 254 IS:PROTONIX IV QD FENTANYL IV PER PARAMETERS FLUCONAZOLE IV Q24H LEVOPHED IV PER PARAMETERS MEROPENEM IV Q24H MIDODRINE PO TID ICU PLAN OF CARE: CXR
--- NOTE | 2019-12-20 09:00 | NUR ---
NURSE NOTES: AM meds were administered. Levophed was titrated down to 12mcg/min to maintain SBP above 90, and MAP above 65. Oral care was done.
--- NOTE | 2019-12-20 09:18 | General Progress Note ---
Assessment/Plan Status: unchanged Assessment/Plan: . ASSESSMENT RESP/ID #Acute Hypoxic Respiratory Failure 2/2 COVID +, HCAP + #Septic Shock #PTX/Pneumomediastinum--> to high risk for intervention Appreciate Pulm/ID --> Vent Management Fentanyl for Sedation 2/2 elevated TG Pressor support, maintain MAP > 65 ABG per pulm Patient is s/p IL-6 inhibitor and Plaquenil Trend predictive markers Q3 days; CRP, Pro-Calcitonin, Ferritin, Ddimer Monitor Ddimer, if 10X upper limit, consider AC for embolic prevention Continue Broad Spectrum AB per ID, Cx per ID (currently on meropenem, vancomycin , fluconazole) Surgery to monitor PTX NEPHRO #ARF now on HD Continue HD per Nephro, last HD 12/18 GI #Shock Liver Appreciate GI recs Liver enzymes also likely elevated 2/2 COVID + state CV #Tachcyardia, s/p AFib now converted to sinus Appreciate Cardio management DVT/GI ppx, Tube Feeding, FULL CODE Subjective Date patient seen: December 20, 2019 Time patient seen: 09:17 Allergies: Coded Allergies: No Known Allergies (Unverified , 11/29/19) Subjective Patient remains intubated and sedated; currently on levophed, fentanyl, versed. Tx ongoing for COVID w/ Acute hypoxic Resp Failure, along w/ multiorgan failure. WBC is still very elevated. Will obtain predictive markers for tomorrow morning. Objective Last 24 Hour Vital Signs Date Time Temp Pulse Resp B/P (MAP) Pulse Ox O2 Delivery O2 Flow Rate FiO2 12/20/19 08:46 70 28 80 12/20/19 07:00 80 28 115/55 (75) 97 12/20/19 07:00 28 Mechanical Ventilator 80 12/20/19 07:00 115/55 12/20/19 07:00 28 Mechanical Ventilator 80 12/20/19 06:38 80 21 80 12/20/19 06:30 82 19 111/54 (73) 96 12/20/19 06:00 31 Mechanical Ventilator 80 12/20/19 06:00 111/59 12/20/19 06:00 31 Mechanical Ventilator 80 12/20/19 06:00 81 31 111/59 (76) 93 12/20/19 05:41 115/58 12/20/19 05:30 76 29 109/60 (76) 91 12/20/19 05:00 72 25 115/58 (77) 97 12/20/19 05:00 25 Mechanical Ventilator 80 12/20/19 05:00 115/58 12/20/19 05:00 25 Mechanical Ventilator 80 12/20/19 04:30 66 21 128/62 (84) 98 12/20/19 04:00 22 Mechanical Ventilator 80 12/20/19 04:00 126/62 12/20/19 04:00 22 Mechanical Ventilator 80 12/20/19 04:00 Mechanical Ventilator 12/20/19 04:00 64 12/20/19 04:00 97.9 65 22 126/62 (83) 98 12/20/19 04:00 80 12/20/19 03:30 65 26 138/66 (90) 98 12/20/19 03:29 64 20 80 12/20/19 03:00 66 24 135/65 (88) 98 12/20/19 03:00 24 Mechanical Ventilator 80 12/20/19 03:00 135/65 12/20/19 03:00 24 Mechanical Ventilator 80 12/20/19 02:30 68 26 129/64 (85) 98 12/20/19 02:00 69 24 133/64 (87) 98 12/20/19 02:00 24 Mechanical Ventilator 80 12/20/19 02:00 133/64 12/20/19 02:00 24 Mechanical Ventilator 80 12/20/19 01:30 71 26 132/68 (89) 98 12/20/19 01:00 23 Mechanical Ventilator 80 12/20/19 01:00 127/62 12/20/19 01:00 23 Mechanical Ventilator 80 12/20/19 01:00 75 23 127/62 (83) 99 12/20/19 00:30 77 23 125/61 (82) 99 12/20/19 00:00 Mechanical Ventilator 12/20/19 00:00 99.2 79 21 126/58 (80) 100 12/20/19 00:00 80 12/20/19 00:00 21 Mechanical Ventilator 80 12/20/19 00:00 126/58 12/20/19 00:00 21 Mechanical Ventilator 80 12/20/19 00:00 21 Mechanical Ventilator 80 12/20/19 00:00 79 12/19/19 23:30 76 21 80 12/19/19 23:30 78 23 132/66 (88) 100 12/19/19 23:00 105/57 12/19/19 23:00 34 Mechanical Ventilator 80 12/19/19 23:00 34 Mechanical Ventilator 80 12/19/19 23:00 86 34 105/57 (73) 97 12/19/19 22:30 89 28 112/49 (70) 97 12/19/19 22:20 99.8 12/19/19 22:00 87 27 107/58 (74) 98 12/19/19 22:00 107/58 12/19/19 22:00 27 Mechanical Ventilator 80 12/19/19 22:00 27 Mechanical Ventilator 80 12/19/19 21:51 105/53 12/19/19 21:50 21 Mechanical Ventilator 80 12/19/19 21:30 90 27 108/54 (72) 100 12/19/19 21:00 112/55 12/19/19 21:00 24 Mechanical Ventilator 80 12/19/19 21:00 24 Mechanical Ventilator 80 12/19/19 21:00 90 24 112/55 (74) 100 12/19/19 20:30 91 26 103/53 (70) 99 12/19/19 20:00 80 12/19/19 20:00 99.8 94 29 102/54 (70) 99 12/19/19 20:00 Mechanical Ventilator 12/19/19 20:00 102/54 12/19/19 20:00 29 Mechanical Ventilator 80 12/19/19 20:00 29 Mechanical Ventilator 80 12/19/19 20:00 100 12/19/19 19:33 96 24 80 12/19/19 19:30 96 28 102/55 (71) 99 12/19/19 19:00 98/51 12/19/19 19:00 25 Mechanical Ventilator 80 12/19/19 19:00 25 Mechanical Ventilator 80 12/19/19 19:00 101 25 98/51 (67) 99 12/19/19 18:41 20 Mechanical Ventilator 80 12/19/19 18:30 102 23 97/56 (70) 100 12/19/19 18:00 103 21 114/56 (75) 100 12/19/19 17:34 104 17 107/56 (73) 100 12/19/19 17:01 104 17 105/48 (67) 100 12/19/19 17:00 97/54 5/7/20 17:00 20 Mechanical Ventilator 80 12/19/19 17:00 20 Mechanical Ventilator 80 12/19/19 16:45 106 20 80 12/19/19 16:30 106 17 104/50 (68) 100 12/19/19 16:04 105 17 88/46 (60) 98 12/19/19 16:00 104 12/19/19 16:00 80 12/19/19 16:00 Mechanical Ventilator 12/19/19 16:00 88/46 12/19/19 16:00 20 Non-Rebreather 80 12/19/19 16:00 20 Mechanical Ventilator 80 12/19/19 16:00 98.8 105 17 88/46 (60) 98 12/19/19 15:30 106 17 97/60 (72) 100 12/19/19 15:04 101 17 92/55 (67) 100 12/19/19 15:00 112/54 12/19/19 15:00 20 Mechanical Ventilator 80 12/19/19 15:00 20 Mechanical Ventilator 80 12/19/19 14:54 106 21 80 12/19/19 14:30 100 17 98/55 (69) 100 12/19/19 14:15 98/55 12/19/19 14:00 100/57 12/19/19 14:00 20 Mechanical Ventilator 80 12/19/19 14:00 20 Mechanical Ventilator 80 12/19/19 14:00 98 17 99/60 (73) 100 12/19/19 13:45 99/60 12/19/19 13:30 105/56 12/19/19 13:30 98 17 105/56 (72) 100 12/19/19 13:15 101/59 12/19/19 13:15 20 Mechanical Ventilator 80 12/19/19 13:12 95 22 80 12/19/19 13:00 99/50 12/19/19 13:00 96 17 103/58 (73) 100 12/19/19 12:59 107/53 12/19/19 12:59 20 Mechanical Ventilator 80 12/19/19 12:59 20 Mechanical Ventilator 80 12/19/19 12:30 96 26 95/52 (66) 99 12/19/19 12:00 93 26 103/51 (68) 96 12/19/19 12:00 Mechanical Ventilator 12/19/19 12:00 103/51 12/19/19 12:00 26 Mechanical Ventilator 80 12/19/19 12:00 Mechanical Ventilator 100 12/19/19 12:00 93 12/19/19 12:00 80 12/19/19 11:30 88 32 99/52 (68) 99 12/19/19 11:00 112/54 12/19/19 11:00 33 Mechanical Ventilator 80 12/19/19 11:00 33 Mechanical Ventilator 80 12/19/19 11:00 82 31 117/59 (78) 99 12/19/19 10:55 85 35 80 12/19/19 10:45 83 30 116/57 (76) 98 12/19/19 10:30 84 27 112/57 (75) 98 12/19/19 10:15 85 33 115/57 (76) 98 12/19/19 10:00 85 30 122/55 (77) 99 12/19/19 10:00 115/57 12/19/19 10:00 31 Mechanical Ventilator 80 12/19/19 10:00 31 Mechanical Ventilator 80 12/19/19 09:30 85 28 117/57 (77) 98 Intake and Output 12/19/19 12/20/19 19:00 07:00 Intake Total 895.045 ml 1207.06 ml Output Total 2000 ml 180 ml Balance -1104.955 ml 1027.06 ml Free Water 100 ml IV Total 475.045 ml 687.06 ml Tube Feeding 420 ml 420 ml Output Urine Total 0 ml 30 ml Stool Total 150 ml Hemodialysis UF 2000 ml Laboratory Tests 12/20/19 04:45: White Blood Count 25.8*H, Red Blood Count 3.03L, Hemoglobin 9.1L, Hematocrit 27.9L, Mean Corpuscular Volume 92, Mean Corpuscular Hemoglobin 30.2, Mean Corpuscular Hemoglobin Concent 32.8, Red Cell Distribution Width 14.7, Platelet Count 195, Mean Platelet Volume 7.6, Neutrophils (%) (Auto) , Lymphocytes (%) ( Auto) , Monocytes (%) (Auto) , Eosinophils (%) (Auto) , Basophils (%) (Auto) , Differential Total Cells Counted 100, Neutrophils % (Manual) 91H, Lymphocytes % (Manual) 4L, Monocytes % (Manual) 5, Eosinophils % (Manual) 0, Basophils % ( Manual) 0, Band Neutrophils 0, Platelet Estimate Adequate, Platelet Morphology Normal, Hypochromasia 2+, Anisocytosis 1+, Sodium Level 134L, Potassium Level 4.4, Chloride Level 96L, Carbon Dioxide Level 33H, Anion Gap 5, Blood Urea Nitrogen 50H, Creatinine 3.4H, Estimat Glomerular Filtration Rate 18.7, Glucose Level 129H, Calcium Level 8.7, Phosphorus Level 5.3H, Magnesium Level 2.5H, Total Bilirubin 0.6, Aspartate Amino Transf (AST/SGOT) 50H, Alanine Aminotransferase (ALT/SGPT) 40, Alkaline Phosphatase 254H, Total Protein 6.7, Albumin 2.5L, Globulin 4.2, Albumin/Globulin Ratio 0.6L Height (Feet): 5 Height (Inches): 6.00 Weight (Pounds): 161 Objective General Appearance: other - intubated, sedated, critical patient EENT: other - ET tube in place Cardiovascular: normal rate, regular rhythm, other - currently requiring pressor support Respiratory/Chest: other - Vented lung sounds Abdomen: soft, no organomegaly, other - NG tube Edema: 2+ Generalized Neurologic: other - sedated Talya Noriega D.O. December 20, 2019 09:18
--- NOTE | 2019-12-20 10:00 | NUR ---
NURSE NOTES: Xray lamination technician was at bedside for chest xray. Pt was repositioned. VS remain stable.
--- NOTE | 2019-12-20 11:00 | NUR ---
NURSE NOTES: Pt was seen by Dr Cortes and Dr Rdz. No new orders were received.
--- NOTE | 2019-12-20 11:36 | General Progress Note ---
Assessment/Plan Problem List: (1) Elevated LFTs ICD Codes: R79.89 - Other specified abnormal findings of blood chemistry SNOMED: 272010018, 794727722 (2) HTN (hypertension) ICD Codes: I10 - Essential (primary) hypertension SNOMED: 67830783 (3) Suspected COVID-19 virus infection ICD Codes: R68.89 - Other general symptoms and signs SNOMED: 149224804 (4) Pneumonia ICD Codes: J18.9 - Pneumonia, unspecified organism SNOMED: 086096808 (5) Respiratory distress ICD Codes: R06.03 - Acute respiratory distress SNOMED: 991357886 (6) Pneumomediastinum ICD Codes: J98.2 - Interstitial emphysema SNOMED: 86609019 (7) COVID-19 ICD Codes: U07.1 - COVID-19 SNOMED: 591560339 (8) Hypotension ICD Codes: I95.9 - Hypotension, unspecified SNOMED: 52885209 Status: unchanged Assessment/Plan: NGTF rectal tube in place elevated LFTS most likely due to shock liver>>> improving repeat labs in am hepatitis panel>>>Neg fu nephrology recent labs and notes reviewed D/W the nurse Subjective ROS Limited/Unobtainable: No Allergies: Coded Allergies: No Known Allergies (Unverified , 11/29/19) Objective Last 24 Hour Vital Signs Date Time Temp Pulse Resp B/P (MAP) Pulse Ox O2 Delivery O2 Flow Rate FiO2 12/20/19 11:00 26 Mechanical Ventilator 80 12/20/19 11:00 109/46 12/20/19 11:00 28 Mechanical Ventilator 80 12/20/19 10:30 80 37 129/59 (82) 96 12/20/19 10:00 78 32 120/51 (74) 96 12/20/19 10:00 30 Mechanical Ventilator 80 12/20/19 10:00 120/51 12/20/19 10:00 30 Mechanical Ventilator 80 12/20/19 09:30 73 22 129/62 (84) 97 12/20/19 09:00 28 Mechanical Ventilator 80 12/20/19 09:00 112/52 12/20/19 09:00 28 Mechanical Ventilator 80 12/20/19 09:00 73 16 112/52 (72) 97 12/20/19 08:46 70 28 80 12/20/19 08:30 71 28 125/62 (83) 97 12/20/19 08:00 98.3 74 29 122/57 (78) 97 12/20/19 08:00 80 12/20/19 08:00 28 Mechanical Ventilator 80 12/20/19 08:00 122/57 12/20/19 08:00 28 Mechanical Ventilator 80 12/20/19 08:00 Mechanical Ventilator 12/20/19 08:00 77 12/20/19 07:30 76 21 122/59 (80) 97 12/20/19 07:00 80 28 115/55 (75) 97 12/20/19 07:00 28 Mechanical Ventilator 80 12/20/19 07:00 115/55 12/20/19 07:00 28 Mechanical Ventilator 80 12/20/19 06:38 80 21 80 12/20/19 06:30 82 19 111/54 (73) 96 12/20/19 06:00 31 Mechanical Ventilator 80 12/20/19 06:00 111/59 12/20/19 06:00 31 Mechanical Ventilator 80 12/20/19 06:00 81 31 111/59 (76) 93 12/20/19 05:41 115/58 12/20/19 05:30 76 29 109/60 (76) 91 12/20/19 05:00 72 25 115/58 (77) 97 12/20/19 05:00 25 Mechanical Ventilator 80 12/20/19 05:00 115/58 12/20/19 05:00 25 Mechanical Ventilator 80 12/20/19 04:30 66 21 128/62 (84) 98 12/20/19 04:00 22 Mechanical Ventilator 80 12/20/19 04:00 126/62 12/20/19 04:00 22 Mechanical Ventilator 80 12/20/19 04:00 Mechanical Ventilator 12/20/19 04:00 64 12/20/19 04:00 97.9 65 22 126/62 (83) 98 12/20/19 04:00 80 12/20/19 03:30 65 26 138/66 (90) 98 12/20/19 03:29 64 20 80 12/20/19 03:00 66 24 135/65 (88) 98 12/20/19 03:00 24 Mechanical Ventilator 80 12/20/19 03:00 135/65 12/20/19 03:00 24 Mechanical Ventilator 80 5/8/20 02:30 68 26 129/64 (85) 98 12/20/19 02:00 69 24 133/64 (87) 98 12/20/19 02:00 24 Mechanical Ventilator 80 12/20/19 02:00 133/64 12/20/19 02:00 24 Mechanical Ventilator 80 12/20/19 01:30 71 26 132/68 (89) 98 12/20/19 01:00 23 Mechanical Ventilator 80 12/20/19 01:00 127/62 12/20/19 01:00 23 Mechanical Ventilator 80 12/20/19 01:00 75 23 127/62 (83) 99 12/20/19 00:30 77 23 125/61 (82) 99 12/20/19 00:00 Mechanical Ventilator 12/20/19 00:00 99.2 79 21 126/58 (80) 100 12/20/19 00:00 80 12/20/19 00:00 21 Mechanical Ventilator 80 12/20/19 00:00 126/58 12/20/19 00:00 21 Mechanical Ventilator 80 12/20/19 00:00 21 Mechanical Ventilator 80 12/20/19 00:00 79 12/19/19 23:30 76 21 80 12/19/19 23:30 78 23 132/66 (88) 100 12/19/19 23:00 105/57 12/19/19 23:00 34 Mechanical Ventilator 80 12/19/19 23:00 34 Mechanical Ventilator 80 12/19/19 23:00 86 34 105/57 (73) 97 12/19/19 22:30 89 28 112/49 (70) 97 12/19/19 22:20 99.8 12/19/19 22:00 87 27 107/58 (74) 98 12/19/19 22:00 107/58 12/19/19 22:00 27 Mechanical Ventilator 80 12/19/19 22:00 27 Mechanical Ventilator 80 12/19/19 21:51 105/53 12/19/19 21:50 21 Mechanical Ventilator 80 12/19/19 21:30 90 27 108/54 (72) 100 12/19/19 21:00 112/55 12/19/19 21:00 24 Mechanical Ventilator 80 12/19/19 21:00 24 Mechanical Ventilator 80 12/19/19 21:00 90 24 112/55 (74) 100 12/19/19 20:30 91 26 103/53 (70) 99 12/19/19 20:00 80 12/19/19 20:00 99.8 94 29 102/54 (70) 99 12/19/19 20:00 Mechanical Ventilator 12/19/19 20:00 102/54 12/19/19 20:00 29 Mechanical Ventilator 80 12/19/19 20:00 29 Mechanical Ventilator 80 12/19/19 20:00 100 12/19/19 19:33 96 24 80 12/19/19 19:30 96 28 102/55 (71) 99 12/19/19 19:00 98/51 12/19/19 19:00 25 Mechanical Ventilator 80 12/19/19 19:00 25 Mechanical Ventilator 80 12/19/19 19:00 101 25 98/51 (67) 99 12/19/19 18:41 20 Mechanical Ventilator 80 12/19/19 18:30 102 23 97/56 (70) 100 12/19/19 18:00 103 21 114/56 (75) 100 12/19/19 17:34 104 17 107/56 (73) 100 12/19/19 17:01 104 17 105/48 (67) 100 12/19/19 17:00 97/54 12/19/19 17:00 20 Mechanical Ventilator 80 12/19/19 17:00 20 Mechanical Ventilator 80 12/19/19 16:45 106 20 80 12/19/19 16:30 106 17 104/50 (68) 100 12/19/19 16:04 105 17 88/46 (60) 98 12/19/19 16:00 104 12/19/19 16:00 80 12/19/19 16:00 Mechanical Ventilator 12/19/19 16:00 88/46 12/19/19 16:00 20 Non-Rebreather 80 12/19/19 16:00 20 Mechanical Ventilator 80 12/19/19 16:00 98.8 105 17 88/46 (60) 98 12/19/19 15:30 106 17 97/60 (72) 100 12/19/19 15:04 101 17 92/55 (67) 100 12/19/19 15:00 112/54 12/19/19 15:00 20 Mechanical Ventilator 80 12/19/19 15:00 20 Mechanical Ventilator 80 12/19/19 14:54 106 21 80 12/19/19 14:30 100 17 98/55 (69) 100 12/19/19 14:15 98/55 12/19/19 14:00 100/57 12/19/19 14:00 20 Mechanical Ventilator 80 12/19/19 14:00 20 Mechanical Ventilator 80 12/19/19 14:00 98 17 99/60 (73) 100 12/19/19 13:45 99/60 12/19/19 13:30 105/56 12/19/19 13:30 98 17 105/56 (72) 100 12/19/19 13:15 101/59 12/19/19 13:15 20 Mechanical Ventilator 80 12/19/19 13:12 95 22 80 12/19/19 13:00 99/50 12/19/19 13:00 96 17 103/58 (73) 100 12/19/19 12:59 107/53 12/19/19 12:59 20 Mechanical Ventilator 80 12/19/19 12:59 20 Mechanical Ventilator 80 12/19/19 12:30 96 26 95/52 (66) 99 12/19/19 12:00 93 26 103/51 (68) 96 12/19/19 12:00 Mechanical Ventilator 12/19/19 12:00 103/51 12/19/19 12:00 26 Mechanical Ventilator 80 12/19/19 12:00 Mechanical Ventilator 100 12/19/19 12:00 93 12/19/19 12:00 80 Intake and Output 12/19/19 12/20/19 19:00 07:00 Intake Total 895.045 ml 1207.06 ml Output Total 2000 ml 180 ml Balance -1104.955 ml 1027.06 ml Free Water 100 ml IV Total 475.045 ml 687.06 ml Tube Feeding 420 ml 420 ml Output Urine Total 0 ml 30 ml Stool Total 150 ml Hemodialysis UF 2000 ml Laboratory Tests 12/20/19 04:45: White Blood Count 25.8*H, Red Blood Count 3.03L, Hemoglobin 9.1L, Hematocrit 27.9L, Mean Corpuscular Volume 92, Mean Corpuscular Hemoglobin 30.2, Mean Corpuscular Hemoglobin Concent 32.8, Red Cell Distribution Width 14.7, Platelet Count 195, Mean Platelet Volume 7.6, Neutrophils (%) (Auto) , Lymphocytes (%) ( Auto) , Monocytes (%) (Auto) , Eosinophils (%) (Auto) , Basophils (%) (Auto) , Differential Total Cells Counted 100, Neutrophils % (Manual) 91H, Lymphocytes % (Manual) 4L, Monocytes % (Manual) 5, Eosinophils % (Manual) 0, Basophils % ( Manual) 0, Band Neutrophils 0, Platelet Estimate Adequate, Platelet Morphology Normal, Hypochromasia 2+, Anisocytosis 1+, Sodium Level 134L, Potassium Level 4.4, Chloride Level 96L, Carbon Dioxide Level 33H, Anion Gap 5, Blood Urea Nitrogen 50H, Creatinine 3.4H, Estimat Glomerular Filtration Rate 18.7, Glucose Level 129H, Calcium Level 8.7, Phosphorus Level 5.3H, Magnesium Level 2.5H, Total Bilirubin 0.6, Aspartate Amino Transf (AST/SGOT) 50H, Alanine Aminotransferase (ALT/SGPT) 40, Alkaline Phosphatase 254H, Total Protein 6.7, Albumin 2.5L, Globulin 4.2, Albumin/Globulin Ratio 0.6L Height (Feet): 5 Height (Inches): 6.00 Weight (Pounds): 161 General Appearance: lethargic EENT: normal ENT inspection Neck: supple Cardiovascular: normal rate Respiratory/Chest: decreased breath sounds Abdomen: soft, hypoactive bowel sounds Extremities: non-tender João Rdz MD December 20, 2019 11:36
--- NOTE | 2019-12-20 11:53 | Nephrology Progress Note ---
Assessment/Plan Plan #ALBARO- concerns for developing ischemic ATN in the setting of sepsis- r/o vanco toxicity - r/o COVID nephropathy - now with likely ATN #Hyperkalemia due to renal insuffiency - exacerbated by acidosis #COID sepsis #COVID pneumonia #hypoxemic respiratary failure #HTN- now in shock #mediastinal PTX - continue daily HD - midodorine 10mg q8hr - monitor I&Os - daily weights - monitor lytes closely -add nephrovite - GOALS of care discussion - continue pressor support to maintain MAP > 65- continue levo - continue fentanyl dip - abx per ID- on vanco and meropenem - vent management per pulm -Abd Xray shows mediastinal PTX - too high risk for thorocotomy Subjective ROS Limited/Unobtainable: Yes Subjective will continue with daily HD remains oliguric on Fio2 80 on levo Abd Xray shows mediastinal PTX Objective Objective Last 24 Hour Vital Signs Date Time Temp Pulse Resp B/P (MAP) Pulse Ox O2 Delivery O2 Flow Rate FiO2 12/20/19 11:00 26 Mechanical Ventilator 80 12/20/19 11:00 109/46 12/20/19 11:00 28 Mechanical Ventilator 80 12/20/19 10:30 80 37 129/59 (82) 96 12/20/19 10:00 78 32 120/51 (74) 96 12/20/19 10:00 30 Mechanical Ventilator 80 12/20/19 10:00 120/51 12/20/19 10:00 30 Mechanical Ventilator 80 12/20/19 09:30 73 22 129/62 (84) 97 12/20/19 09:00 28 Mechanical Ventilator 80 12/20/19 09:00 112/52 12/20/19 09:00 28 Mechanical Ventilator 80 12/20/19 09:00 73 16 112/52 (72) 97 12/20/19 08:46 70 28 80 12/20/19 08:30 71 28 125/62 (83) 97 12/20/19 08:00 98.3 74 29 122/57 (78) 97 12/20/19 08:00 80 12/20/19 08:00 28 Mechanical Ventilator 80 12/20/19 08:00 122/57 12/20/19 08:00 28 Mechanical Ventilator 80 12/20/19 08:00 Mechanical Ventilator 12/20/19 08:00 77 5/8/20 07:30 76 21 122/59 (80) 97 12/20/19 07:00 80 28 115/55 (75) 97 12/20/19 07:00 28 Mechanical Ventilator 80 12/20/19 07:00 115/55 12/20/19 07:00 28 Mechanical Ventilator 80 12/20/19 06:38 80 21 80 12/20/19 06:30 82 19 111/54 (73) 96 12/20/19 06:00 31 Mechanical Ventilator 80 12/20/19 06:00 111/59 12/20/19 06:00 31 Mechanical Ventilator 80 12/20/19 06:00 81 31 111/59 (76) 93 12/20/19 05:41 115/58 12/20/19 05:30 76 29 109/60 (76) 91 12/20/19 05:00 72 25 115/58 (77) 97 12/20/19 05:00 25 Mechanical Ventilator 80 12/20/19 05:00 115/58 12/20/19 05:00 25 Mechanical Ventilator 80 12/20/19 04:30 66 21 128/62 (84) 98 12/20/19 04:00 22 Mechanical Ventilator 80 12/20/19 04:00 126/62 12/20/19 04:00 22 Mechanical Ventilator 80 12/20/19 04:00 Mechanical Ventilator 12/20/19 04:00 64 12/20/19 04:00 97.9 65 22 126/62 (83) 98 12/20/19 04:00 80 12/20/19 03:30 65 26 138/66 (90) 98 12/20/19 03:29 64 20 80 12/20/19 03:00 66 24 135/65 (88) 98 12/20/19 03:00 24 Mechanical Ventilator 80 12/20/19 03:00 135/65 12/20/19 03:00 24 Mechanical Ventilator 80 12/20/19 02:30 68 26 129/64 (85) 98 12/20/19 02:00 69 24 133/64 (87) 98 12/20/19 02:00 24 Mechanical Ventilator 80 12/20/19 02:00 133/64 12/20/19 02:00 24 Mechanical Ventilator 80 12/20/19 01:30 71 26 132/68 (89) 98 12/20/19 01:00 23 Mechanical Ventilator 80 12/20/19 01:00 127/62 12/20/19 01:00 23 Mechanical Ventilator 80 12/20/19 01:00 75 23 127/62 (83) 99 12/20/19 00:30 77 23 125/61 (82) 99 12/20/19 00:00 Mechanical Ventilator 12/20/19 00:00 99.2 79 21 126/58 (80) 100 12/20/19 00:00 80 12/20/19 00:00 21 Mechanical Ventilator 80 12/20/19 00:00 126/58 12/20/19 00:00 21 Mechanical Ventilator 80 12/20/19 00:00 21 Mechanical Ventilator 80 12/20/19 00:00 79 12/19/19 23:30 76 21 80 12/19/19 23:30 78 23 132/66 (88) 100 12/19/19 23:00 105/57 12/19/19 23:00 34 Mechanical Ventilator 80 12/19/19 23:00 34 Mechanical Ventilator 80 12/19/19 23:00 86 34 105/57 (73) 97 12/19/19 22:30 89 28 112/49 (70) 97 12/19/19 22:20 99.8 12/19/19 22:00 87 27 107/58 (74) 98 12/19/19 22:00 107/58 12/19/19 22:00 27 Mechanical Ventilator 80 12/19/19 22:00 27 Mechanical Ventilator 80 12/19/19 21:51 105/53 12/19/19 21:50 21 Mechanical Ventilator 80 12/19/19 21:30 90 27 108/54 (72) 100 12/19/19 21:00 112/55 12/19/19 21:00 24 Mechanical Ventilator 80 12/19/19 21:00 24 Mechanical Ventilator 80 12/19/19 21:00 90 24 112/55 (74) 100 12/19/19 20:30 91 26 103/53 (70) 99 12/19/19 20:00 80 12/19/19 20:00 99.8 94 29 102/54 (70) 99 12/19/19 20:00 Mechanical Ventilator 12/19/19 20:00 102/54 12/19/19 20:00 29 Mechanical Ventilator 80 12/19/19 20:00 29 Mechanical Ventilator 80 12/19/19 20:00 100 12/19/19 19:33 96 24 80 12/19/19 19:30 96 28 102/55 (71) 99 12/19/19 19:00 98/51 12/19/19 19:00 25 Mechanical Ventilator 80 12/19/19 19:00 25 Mechanical Ventilator 80 12/19/19 19:00 101 25 98/51 (67) 99 12/19/19 18:41 20 Mechanical Ventilator 80 12/19/19 18:30 102 23 97/56 (70) 100 12/19/19 18:00 103 21 114/56 (75) 100 12/19/19 17:34 104 17 107/56 (73) 100 12/19/19 17:01 104 17 105/48 (67) 100 12/19/19 17:00 97/54 12/19/19 17:00 20 Mechanical Ventilator 80 12/19/19 17:00 20 Mechanical Ventilator 80 12/19/19 16:45 106 20 80 12/19/19 16:30 106 17 104/50 (68) 100 12/19/19 16:04 105 17 88/46 (60) 98 12/19/19 16:00 104 12/19/19 16:00 80 12/19/19 16:00 Mechanical Ventilator 12/19/19 16:00 88/46 12/19/19 16:00 20 Non-Rebreather 80 12/19/19 16:00 20 Mechanical Ventilator 80 12/19/19 16:00 98.8 105 17 88/46 (60) 98 12/19/19 15:30 106 17 97/60 (72) 100 12/19/19 15:04 101 17 92/55 (67) 100 12/19/19 15:00 112/54 12/19/19 15:00 20 Mechanical Ventilator 80 12/19/19 15:00 20 Mechanical Ventilator 80 12/19/19 14:54 106 21 80 12/19/19 14:30 100 17 98/55 (69) 100 12/19/19 14:15 98/55 12/19/19 14:00 100/57 12/19/19 14:00 20 Mechanical Ventilator 80 12/19/19 14:00 20 Mechanical Ventilator 80 12/19/19 14:00 98 17 99/60 (73) 100 12/19/19 13:45 99/60 12/19/19 13:30 105/56 12/19/19 13:30 98 17 105/56 (72) 100 12/19/19 13:15 101/59 12/19/19 13:15 20 Mechanical Ventilator 80 12/19/19 13:12 95 22 80 12/19/19 13:00 99/50 12/19/19 13:00 96 17 103/58 (73) 100 12/19/19 12:59 107/53 12/19/19 12:59 20 Mechanical Ventilator 80 12/19/19 12:59 20 Mechanical Ventilator 80 12/19/19 12:30 96 26 95/52 (66) 99 12/19/19 12:00 93 26 103/51 (68) 96 12/19/19 12:00 Mechanical Ventilator 12/19/19 12:00 103/51 12/19/19 12:00 26 Mechanical Ventilator 80 12/19/19 12:00 Mechanical Ventilator 100 12/19/19 12:00 93 12/19/19 12:00 80 Intake and Output 12/19/19 12/20/19 19:00 07:00 Intake Total 895.045 ml 1207.06 ml Output Total 2000 ml 180 ml Balance -1104.955 ml 1027.06 ml Free Water 100 ml IV Total 475.045 ml 687.06 ml Tube Feeding 420 ml 420 ml Output Urine Total 0 ml 30 ml Stool Total 150 ml Hemodialysis UF 2000 ml Laboratory Tests 12/20/19 04:45: White Blood Count 25.8*H, Red Blood Count 3.03L, Hemoglobin 9.1L, Hematocrit 27.9L, Mean Corpuscular Volume 92, Mean Corpuscular Hemoglobin 30.2, Mean Corpuscular Hemoglobin Concent 32.8, Red Cell Distribution Width 14.7, Platelet Count 195, Mean Platelet Volume 7.6, Neutrophils (%) (Auto) , Lymphocytes (%) ( Auto) , Monocytes (%) (Auto) , Eosinophils (%) (Auto) , Basophils (%) (Auto) , Differential Total Cells Counted 100, Neutrophils % (Manual) 91H, Lymphocytes % (Manual) 4L, Monocytes % (Manual) 5, Eosinophils % (Manual) 0, Basophils % ( Manual) 0, Band Neutrophils 0, Platelet Estimate Adequate, Platelet Morphology Normal, Hypochromasia 2+, Anisocytosis 1+, Sodium Level 134L, Potassium Level 4.4, Chloride Level 96L, Carbon Dioxide Level 33H, Anion Gap 5, Blood Urea Nitrogen 50H, Creatinine 3.4H, Estimat Glomerular Filtration Rate 18.7, Glucose Level 129H, Calcium Level 8.7, Phosphorus Level 5.3H, Magnesium Level 2.5H, Total Bilirubin 0.6, Aspartate Amino Transf (AST/SGOT) 50H, Alanine Aminotransferase (ALT/SGPT) 40, Alkaline Phosphatase 254H, Total Protein 6.7, Albumin 2.5L, Globulin 4.2, Albumin/Globulin Ratio 0.6L Height (Feet): 5 Height (Inches): 6.00 Weight (Pounds): 161 Objective General Appearance: other - intubated- proned Lines, tubes and drains: central line HEENT: normocephalic, atraumatic Respiratory/Chest: rhonchi - bilaterally Cardiovascular/Chest: other - tachycardic Extremities: pitting Dorian Soriano M.D. December 20, 2019 11:53
--- NOTE | 2019-12-20 11:56 | Pulmonology Progress Note ---
Subjective ROS Limited/Unobtainable: Yes Interval Events: Intubated ;proning on hold due to facial decubitus Constitutional: Reports: fever, other - on vent and pressors HEENT: Repors: no symptoms Respiratory: Reports: no symptoms Cardiovascular: Reports: no symptoms Gastrointestinal/Abdominal: Reports: diarrhea, other - + rectal tube Genitourinary: Reports: no symptoms Psychiatric: Reports: other - NA Skin: Denies: rash Musculoskeletal: Reports: other - NA Allergies: Coded Allergies: No Known Allergies (Unverified , 11/29/19) All Systems: reviewed and negative except above Subjective On daily HD Objective Last 24 Hour Vital Signs Date Time Temp Pulse Resp B/P (MAP) Pulse Ox O2 Delivery O2 Flow Rate FiO2 12/20/19 11:00 26 Mechanical Ventilator 80 12/20/19 11:00 109/46 12/20/19 11:00 28 Mechanical Ventilator 80 12/20/19 10:30 80 37 129/59 (82) 96 12/20/19 10:00 78 32 120/51 (74) 96 12/20/19 10:00 30 Mechanical Ventilator 80 12/20/19 10:00 120/51 12/20/19 10:00 30 Mechanical Ventilator 80 12/20/19 09:30 73 22 129/62 (84) 97 12/20/19 09:00 28 Mechanical Ventilator 80 12/20/19 09:00 112/52 12/20/19 09:00 28 Mechanical Ventilator 80 12/20/19 09:00 73 16 112/52 (72) 97 12/20/19 08:46 70 28 80 12/20/19 08:30 71 28 125/62 (83) 97 12/20/19 08:00 98.3 74 29 122/57 (78) 97 12/20/19 08:00 80 12/20/19 08:00 28 Mechanical Ventilator 80 12/20/19 08:00 122/57 12/20/19 08:00 28 Mechanical Ventilator 80 12/20/19 08:00 Mechanical Ventilator 12/20/19 08:00 77 12/20/19 07:30 76 21 122/59 (80) 97 12/20/19 07:00 80 28 115/55 (75) 97 12/20/19 07:00 28 Mechanical Ventilator 80 12/20/19 07:00 115/55 12/20/19 07:00 28 Mechanical Ventilator 80 12/20/19 06:38 80 21 80 12/20/19 06:30 82 19 111/54 (73) 96 12/20/19 06:00 31 Mechanical Ventilator 80 12/20/19 06:00 111/59 12/20/19 06:00 31 Mechanical Ventilator 80 12/20/19 06:00 81 31 111/59 (76) 93 12/20/19 05:41 115/58 12/20/19 05:30 76 29 109/60 (76) 91 12/20/19 05:00 72 25 115/58 (77) 97 12/20/19 05:00 25 Mechanical Ventilator 80 12/20/19 05:00 115/58 12/20/19 05:00 25 Mechanical Ventilator 80 12/20/19 04:30 66 21 128/62 (84) 98 12/20/19 04:00 22 Mechanical Ventilator 80 12/20/19 04:00 126/62 12/20/19 04:00 22 Mechanical Ventilator 80 12/20/19 04:00 Mechanical Ventilator 12/20/19 04:00 64 12/20/19 04:00 97.9 65 22 126/62 (83) 98 12/20/19 04:00 80 12/20/19 03:30 65 26 138/66 (90) 98 12/20/19 03:29 64 20 80 12/20/19 03:00 66 24 135/65 (88) 98 12/20/19 03:00 24 Mechanical Ventilator 80 12/20/19 03:00 135/65 12/20/19 03:00 24 Mechanical Ventilator 80 12/20/19 02:30 68 26 129/64 (85) 98 12/20/19 02:00 69 24 133/64 (87) 98 12/20/19 02:00 24 Mechanical Ventilator 80 12/20/19 02:00 133/64 12/20/19 02:00 24 Mechanical Ventilator 80 12/20/19 01:30 71 26 132/68 (89) 98 12/20/19 01:00 23 Mechanical Ventilator 80 12/20/19 01:00 127/62 12/20/19 01:00 23 Mechanical Ventilator 80 12/20/19 01:00 75 23 127/62 (83) 99 12/20/19 00:30 77 23 125/61 (82) 99 12/20/19 00:00 Mechanical Ventilator 12/20/19 00:00 99.2 79 21 126/58 (80) 100 12/20/19 00:00 80 12/20/19 00:00 21 Mechanical Ventilator 80 12/20/19 00:00 126/58 12/20/19 00:00 21 Mechanical Ventilator 80 12/20/19 00:00 21 Mechanical Ventilator 80 12/20/19 00:00 79 12/19/19 23:30 76 21 80 12/19/19 23:30 78 23 132/66 (88) 100 12/19/19 23:00 105/57 12/19/19 23:00 34 Mechanical Ventilator 80 12/19/19 23:00 34 Mechanical Ventilator 80 12/19/19 23:00 86 34 105/57 (73) 97 12/19/19 22:30 89 28 112/49 (70) 97 12/19/19 22:20 99.8 12/19/19 22:00 87 27 107/58 (74) 98 12/19/19 22:00 107/58 12/19/19 22:00 27 Mechanical Ventilator 80 12/19/19 22:00 27 Mechanical Ventilator 80 12/19/19 21:51 105/53 12/19/19 21:50 21 Mechanical Ventilator 80 12/19/19 21:30 90 27 108/54 (72) 100 12/19/19 21:00 112/55 12/19/19 21:00 24 Mechanical Ventilator 80 12/19/19 21:00 24 Mechanical Ventilator 80 12/19/19 21:00 90 24 112/55 (74) 100 12/19/19 20:30 91 26 103/53 (70) 99 12/19/19 20:00 80 12/19/19 20:00 99.8 94 29 102/54 (70) 99 12/19/19 20:00 Mechanical Ventilator 12/19/19 20:00 102/54 12/19/19 20:00 29 Mechanical Ventilator 80 12/19/19 20:00 29 Mechanical Ventilator 80 12/19/19 20:00 100 12/19/19 19:33 96 24 80 12/19/19 19:30 96 28 102/55 (71) 99 12/19/19 19:00 98/51 12/19/19 19:00 25 Mechanical Ventilator 80 12/19/19 19:00 25 Mechanical Ventilator 80 12/19/19 19:00 101 25 98/51 (67) 99 12/19/19 18:41 20 Mechanical Ventilator 80 12/19/19 18:30 102 23 97/56 (70) 100 12/19/19 18:00 103 21 114/56 (75) 100 12/19/19 17:34 104 17 107/56 (73) 100 12/19/19 17:01 104 17 105/48 (67) 100 12/19/19 17:00 97/54 12/19/19 17:00 20 Mechanical Ventilator 80 12/19/19 17:00 20 Mechanical Ventilator 80 12/19/19 16:45 106 20 80 12/19/19 16:30 106 17 104/50 (68) 100 12/19/19 16:04 105 17 88/46 (60) 98 12/19/19 16:00 104 12/19/19 16:00 80 12/19/19 16:00 Mechanical Ventilator 12/19/19 16:00 88/46 12/19/19 16:00 20 Non-Rebreather 80 12/19/19 16:00 20 Mechanical Ventilator 80 12/19/19 16:00 98.8 105 17 88/46 (60) 98 12/19/19 15:30 106 17 97/60 (72) 100 12/19/19 15:04 101 17 92/55 (67) 100 12/19/19 15:00 112/54 12/19/19 15:00 20 Mechanical Ventilator 80 12/19/19 15:00 20 Mechanical Ventilator 80 12/19/19 14:54 106 21 80 12/19/19 14:30 100 17 98/55 (69) 100 12/19/19 14:15 98/55 12/19/19 14:00 100/57 12/19/19 14:00 20 Mechanical Ventilator 80 12/19/19 14:00 20 Mechanical Ventilator 80 12/19/19 14:00 98 17 99/60 (73) 100 12/19/19 13:45 99/60 12/19/19 13:30 105/56 12/19/19 13:30 98 17 105/56 (72) 100 12/19/19 13:15 101/59 12/19/19 13:15 20 Mechanical Ventilator 80 12/19/19 13:12 95 22 80 12/19/19 13:00 99/50 12/19/19 13:00 96 17 103/58 (73) 100 12/19/19 12:59 107/53 12/19/19 12:59 20 Mechanical Ventilator 80 12/19/19 12:59 20 Mechanical Ventilator 80 12/19/19 12:30 96 26 95/52 (66) 99 12/19/19 12:00 93 26 103/51 (68) 96 12/19/19 12:00 Mechanical Ventilator 12/19/19 12:00 103/51 12/19/19 12:00 26 Mechanical Ventilator 80 12/19/19 12:00 Mechanical Ventilator 100 12/19/19 12:00 93 12/19/19 12:00 80 Intake and Output 12/19/19 12/20/19 19:00 07:00 Intake Total 895.045 ml 1207.06 ml Output Total 2000 ml 180 ml Balance -1104.955 ml 1027.06 ml Free Water 100 ml IV Total 475.045 ml 687.06 ml Tube Feeding 420 ml 420 ml Output Urine Total 0 ml 30 ml Stool Total 150 ml Hemodialysis UF 2000 ml General Appearance: other - on vent HEENT: normocephalic, atraumatic, anicteric, no JVD, other - intubated Respiratory/Chest: chest wall non-tender, lungs clear Cardiovascular: normal peripheral pulses, normal rate Abdomen: normal bowel sounds, soft, non tender, no organomegaly Genitourinary: other - + barnes Extremities: no cyanosis Skin: no rash Neurologic/Psychiatric: other - lethargic, weak Lymphatic: no neck adenopathy Musculoskeletal: no effusion Laboratory Tests 12/20/19 04:45: White Blood Count 25.8*H, Red Blood Count 3.03L, Hemoglobin 9.1L, Hematocrit 27.9L, Mean Corpuscular Volume 92, Mean Corpuscular Hemoglobin 30.2, Mean Corpuscular Hemoglobin Concent 32.8, Red Cell Distribution Width 14.7, Platelet Count 195, Mean Platelet Volume 7.6, Neutrophils (%) (Auto) , Lymphocytes (%) ( Auto) , Monocytes (%) (Auto) , Eosinophils (%) (Auto) , Basophils (%) (Auto) , Differential Total Cells Counted 100, Neutrophils % (Manual) 91H, Lymphocytes % (Manual) 4L, Monocytes % (Manual) 5, Eosinophils % (Manual) 0, Basophils % ( Manual) 0, Band Neutrophils 0, Platelet Estimate Adequate, Platelet Morphology Normal, Hypochromasia 2+, Anisocytosis 1+, Sodium Level 134L, Potassium Level 4.4, Chloride Level 96L, Carbon Dioxide Level 33H, Anion Gap 5, Blood Urea Nitrogen 50H, Creatinine 3.4H, Estimat Glomerular Filtration Rate 18.7, Glucose Level 129H, Calcium Level 8.7, Phosphorus Level 5.3H, Magnesium Level 2.5H, Total Bilirubin 0.6, Aspartate Amino Transf (AST/SGOT) 50H, Alanine Aminotransferase (ALT/SGPT) 40, Alkaline Phosphatase 254H, Total Protein 6.7, Albumin 2.5L, Globulin 4.2, Albumin/Globulin Ratio 0.6L Current Medications Medications (Trade) Dose Ordered Sig/Vicki Route PRN Reason Start Time Stop Time Status Last Admin Dose Admin Acetaminophen (Tylenol) 650 mg Q4H PRN NG Temp >100.5 12/06/19 14:15 01/05/20 14:14 12/18/19 12:41 Acetaminophen (Tylenol) 650 mg Q4H PRN RECTAL Mild Pain (Pain Scale 1-3) 12/04/19 11:45 01/03/20 11:44 12/06/19 19:17 Chlorhexidine Gluconate (Arely-Hex 2%) 1 applic DAILY@2000 TOPIC 12/05/19 20:00 03/04/20 19:59 12/19/19 21:03 Dextrose (Dextrose 50%) 25 ml Q30M PRN IV Hypoglycemia 11/29/19 14:15 02/27/20 14:14 Dextrose (Dextrose 50%) 50 ml Q30M PRN IV Hypoglycemia 11/29/19 14:15 02/27/20 14:14 Fentanyl Citrate 2500 mcg/Sodium Chloride 250 ml @ 0 mls/hr Q24H IV 12/20/19 00:00 12/27/19 00:00 12/20/19 00:00 Fluconazole/ Sodium Chloride 100 ml @ 100 mls/hr Q24H IV 12/16/19 22:00 12/23/19 21:59 12/19/19 21:03 Folic Acid (Folate) 1 mg DAILY NG 12/18/19 09:00 01/17/20 08:59 12/20/19 08:27 Hydralazine HCl (Apresoline) 10 mg Q4H PRN IV For High Blood Pressure 11/29/19 15:15 02/27/20 15:14 Loperamide HCl (Imodium) 2 mg Q6H PRN NG Diarrhea 12/12/19 12:45 01/11/20 12:44 Meropenem 500 mg/ Sodium Chloride 50 ml @ 100 mls/hr Q24HRS IVPB 12/16/19 21:30 12/21/19 21:29 12/19/19 21:03 Midazolam HCl 100 ml @ 0 mls/hr Q24H PRN IV Restlessness 12/16/19 10:45 03/15/20 10:44 12/19/19 21:50 Midodrine (Pro-Amatine) 10 mg THREE TIMES A DAY ORAL 12/12/19 13:00 03/11/20 12:59 12/20/19 08:27 Norepinephrine Bitartrate 8 mg/ Dextrose 250 ml @ 0 mls/hr Q24H IV 12/18/19 09:00 01/17/20 08:59 12/20/19 05:41 Ondansetron HCl (Zofran) 4 mg Q6H PRN IVP Nausea & Vomiting 11/29/19 14:15 12/29/19 14:14 Pantoprazole (Protonix) 40 mg DAILY IVP 11/30/19 12:15 12/30/19 12:14 12/20/19 08:27 Vancomycin HCl (Vanco rx to dose) 1 ea DAILY PRN MISC Per rx protocol 12/08/19 19:30 01/07/20 19:29 Vitamin B Complex/ Vit C/Folic Acid (Nephrovite) 1 tab DAILY NG 12/16/19 09:00 01/15/20 08:59 12/20/19 08:27 Assessment/Plan Assessment/Plan IMPRESSION: 1. Bilateral pneumonia. 2. Positive COVID-19. 3. Respiratory failure. DISCUSSION: Intubated On AC 20; FiO2 100; PEEP 5; SaO2 99% Abd Xray shows mediastinal PTX Recent CXR 12/06; no PTX or pneumomediastinum seen Repeat CXR today again shows mediastinal PTX Hold proning On Fentanyl due to high triglycerides Hold further proning Saturations are better Grave prognosis I will follow carefully. On HD now S/p Actemra Blood CS ? contaminant Needs ongoing HD; more ultrafiltration Urine CS negative Will decrease PEEP to 5 Continue vent Tray Tolentino Omar Syed MD December 20, 2019 11:56
[2019-12-20] MEDS: fentaNYL Citrate 2,500 MCG in NS 200 ML IV SCH ×3 (12:00)
--- NOTE | 2019-12-20 12:00 | NUR ---
NURSE NOTES: Levophed was titrated down to 10mcg/min to maintain SBP above 90 and MAP above 65. VS remain stable.
--- NOTE | 2019-12-20 12:01 | Hematology/Onc Progress Note ---
Assessment/Plan Assessment/Plan # Leukocytosis/elevated white blood cell count, unspecified likely related to underlying stress reaction and addition of infection, covid19++ on vent, intubated --> have reviewed peripheral smear and bandemia/neutrophilia noted --> continue antibiotics if they have been started by ID team --> on broad spectrum abx cefepime/flag/vanc-->katie/vanc --> monitor for resolution --> smear is noted, with metamyelocytes --> wbc trend 18-->24-->32.9-->34k-->27->26 --> ID is aware --> again ordered peripheral smear for path review-->reviewed and no blasts noted # Anemia of chronic disease due to underlying chronic medical issues, multifactorial v Gi bleed --> Anemia workup has been ordered, rule out gi bleed --> No evidence of hemolysis is noted, peripheral smear has been reviewed. --> Hgb goal >7. Transfuse prn. --> Epogen or iron at this time is not particularly indicated --> Medications have been reviewed --> low threshold for gi evaluation in case has occult + ==> hgb trend 11-->10.7-->10.4-->9.3-->9.1 # Thrombocytopenia also likely covid related --> supportive care --> plt 149-->164k-->154->195 --> smear # Acute Hypoxic Respiratory Failure s/p intubation --> now on vent --> as per Dr. Cortes, weaning prn # COVID19 positive --> abx # Pneumomediastinum --> monitor for expansion # Subcutaneous emphysema --> too high risk for bedside thoracostomy # ALBARO on ckd --> hd as needed --> per renal # femoral HD cath placed 12/04 --> hd prn # Dvt ppx scds DW Rn and appreciate consultation Subjective Allergies: Coded Allergies: No Known Allergies (Unverified , 11/29/19) Subjective 12/12 remains on vent, ogtube, barnes and rectal tube emptied, right fem jia line 12/14 icu, prone, levo gtt, multiple abx, labs reviewed 12/15 nonv, no bleeding, remains in vent, no bleeding, wbc high, on abx per id 12/16 nonv, on vent, ng, rectal tube, wbc still 34k 12/17 icu, levo gtt, on katie/vanc, tachy 12/18 in icu, on ng tube feeds, vent, no bleeding, jia in place 12/19 in the icu, no bleeding, ngt, with rectal tube, no bleeding ebc 28k Objective Objective Current Medications Medications (Trade) Dose Ordered Sig/Vicki Route PRN Reason Start Time Stop Time Status Last Admin Dose Admin Acetaminophen (Tylenol) 650 mg Q4H PRN NG Temp >100.5 12/06/19 14:15 01/05/20 14:14 12/18/19 12:41 Acetaminophen (Tylenol) 650 mg Q4H PRN RECTAL Mild Pain (Pain Scale 1-3) 12/04/19 11:45 01/03/20 11:44 12/06/19 19:17 Chlorhexidine Gluconate (Arely-Hex 2%) 1 applic DAILY@2000 TOPIC 12/05/19 20:00 03/04/20 19:59 12/19/19 21:03 Dextrose (Dextrose 50%) 25 ml Q30M PRN IV Hypoglycemia 11/29/19 14:15 02/27/20 14:14 Dextrose (Dextrose 50%) 50 ml Q30M PRN IV Hypoglycemia 11/29/19 14:15 02/27/20 14:14 Fentanyl Citrate 2500 mcg/Sodium Chloride 250 ml @ 0 mls/hr Q24H IV 12/20/19 00:00 12/27/19 00:00 12/20/19 00:00 Fluconazole/ Sodium Chloride 100 ml @ 100 mls/hr Q24H IV 12/16/19 22:00 12/23/19 21:59 12/19/19 21:03 Folic Acid (Folate) 1 mg DAILY NG 12/18/19 09:00 01/17/20 08:59 12/20/19 08:27 Hydralazine HCl (Apresoline) 10 mg Q4H PRN IV For High Blood Pressure 11/29/19 15:15 02/27/20 15:14 Loperamide HCl (Imodium) 2 mg Q6H PRN NG Diarrhea 12/12/19 12:45 01/11/20 12:44 Meropenem 500 mg/ Sodium Chloride 50 ml @ 100 mls/hr Q24HRS IVPB 12/16/19 21:30 12/21/19 21:29 12/19/19 21:03 Midazolam HCl 100 ml @ 0 mls/hr Q24H PRN IV Restlessness 12/16/19 10:45 03/15/20 10:44 12/19/19 21:50 Midodrine (Pro-Amatine) 10 mg THREE TIMES A DAY ORAL 12/12/19 13:00 03/11/20 12:59 12/20/19 08:27 Norepinephrine Bitartrate 8 mg/ Dextrose 250 ml @ 0 mls/hr Q24H IV 12/18/19 09:00 01/17/20 08:59 12/20/19 05:41 Ondansetron HCl (Zofran) 4 mg Q6H PRN IVP Nausea & Vomiting 11/29/19 14:15 12/29/19 14:14 Pantoprazole (Protonix) 40 mg DAILY IVP 11/30/19 12:15 12/30/19 12:14 12/20/19 08:27 Vancomycin HCl (Vanco rx to dose) 1 ea DAILY PRN MISC Per rx protocol 12/08/19 19:30 01/07/20 19:29 Vitamin B Complex/ Vit C/Folic Acid (Nephrovite) 1 tab DAILY NG 12/16/19 09:00 01/15/20 08:59 12/20/19 08:27 Last 24 Hour Vital Signs Date Time Temp Pulse Resp B/P (MAP) Pulse Ox O2 Delivery O2 Flow Rate FiO2 12/20/19 11:00 26 Mechanical Ventilator 80 12/20/19 11:00 109/46 12/20/19 11:00 28 Mechanical Ventilator 80 12/20/19 10:30 80 37 129/59 (82) 96 12/20/19 10:00 78 32 120/51 (74) 96 12/20/19 10:00 30 Mechanical Ventilator 80 12/20/19 10:00 120/51 12/20/19 10:00 30 Mechanical Ventilator 80 12/20/19 09:30 73 22 129/62 (84) 97 12/20/19 09:00 28 Mechanical Ventilator 80 12/20/19 09:00 112/52 12/20/19 09:00 28 Mechanical Ventilator 80 12/20/19 09:00 73 16 112/52 (72) 97 12/20/19 08:46 70 28 80 12/20/19 08:30 71 28 125/62 (83) 97 12/20/19 08:00 98.3 74 29 122/57 (78) 97 12/20/19 08:00 80 12/20/19 08:00 28 Mechanical Ventilator 80 12/20/19 08:00 122/57 12/20/19 08:00 28 Mechanical Ventilator 80 12/20/19 08:00 Mechanical Ventilator 12/20/19 08:00 77 12/20/19 07:30 76 21 122/59 (80) 97 12/20/19 07:00 80 28 115/55 (75) 97 12/20/19 07:00 28 Mechanical Ventilator 80 12/20/19 07:00 115/55 12/20/19 07:00 28 Mechanical Ventilator 80 12/20/19 06:38 80 21 80 12/20/19 06:30 82 19 111/54 (73) 96 12/20/19 06:00 31 Mechanical Ventilator 80 12/20/19 06:00 111/59 12/20/19 06:00 31 Mechanical Ventilator 80 12/20/19 06:00 81 31 111/59 (76) 93 12/20/19 05:41 115/58 12/20/19 05:30 76 29 109/60 (76) 91 12/20/19 05:00 72 25 115/58 (77) 97 12/20/19 05:00 25 Mechanical Ventilator 80 12/20/19 05:00 115/58 12/20/19 05:00 25 Mechanical Ventilator 80 12/20/19 04:30 66 21 128/62 (84) 98 12/20/19 04:00 22 Mechanical Ventilator 80 12/20/19 04:00 126/62 12/20/19 04:00 22 Mechanical Ventilator 80 12/20/19 04:00 Mechanical Ventilator 12/20/19 04:00 64 12/20/19 04:00 97.9 65 22 126/62 (83) 98 12/20/19 04:00 80 12/20/19 03:30 65 26 138/66 (90) 98 12/20/19 03:29 64 20 80 12/20/19 03:00 66 24 135/65 (88) 98 12/20/19 03:00 24 Mechanical Ventilator 80 12/20/19 03:00 135/65 12/20/19 03:00 24 Mechanical Ventilator 80 12/20/19 02:30 68 26 129/64 (85) 98 12/20/19 02:00 69 24 133/64 (87) 98 12/20/19 02:00 24 Mechanical Ventilator 80 12/20/19 02:00 133/64 12/20/19 02:00 24 Mechanical Ventilator 80 12/20/19 01:30 71 26 132/68 (89) 98 12/20/19 01:00 23 Mechanical Ventilator 80 12/20/19 01:00 127/62 12/20/19 01:00 23 Mechanical Ventilator 80 12/20/19 01:00 75 23 127/62 (83) 99 12/20/19 00:30 77 23 125/61 (82) 99 12/20/19 00:00 Mechanical Ventilator 12/20/19 00:00 99.2 79 21 126/58 (80) 100 12/20/19 00:00 80 12/20/19 00:00 21 Mechanical Ventilator 80 12/20/19 00:00 126/58 12/20/19 00:00 21 Mechanical Ventilator 80 12/20/19 00:00 21 Mechanical Ventilator 80 12/20/19 00:00 79 12/19/19 23:30 76 21 80 12/19/19 23:30 78 23 132/66 (88) 100 12/19/19 23:00 105/57 12/19/19 23:00 34 Mechanical Ventilator 80 12/19/19 23:00 34 Mechanical Ventilator 80 12/19/19 23:00 86 34 105/57 (73) 97 12/19/19 22:30 89 28 112/49 (70) 97 12/19/19 22:20 99.8 12/19/19 22:00 87 27 107/58 (74) 98 12/19/19 22:00 107/58 12/19/19 22:00 27 Mechanical Ventilator 80 12/19/19 22:00 27 Mechanical Ventilator 80 12/19/19 21:51 105/53 12/19/19 21:50 21 Mechanical Ventilator 80 12/19/19 21:30 90 27 108/54 (72) 100 12/19/19 21:00 112/55 12/19/19 21:00 24 Mechanical Ventilator 80 12/19/19 21:00 24 Mechanical Ventilator 80 12/19/19 21:00 90 24 112/55 (74) 100 12/19/19 20:30 91 26 103/53 (70) 99 12/19/19 20:00 80 12/19/19 20:00 99.8 94 29 102/54 (70) 99 12/19/19 20:00 Mechanical Ventilator 12/19/19 20:00 102/54 12/19/19 20:00 29 Mechanical Ventilator 80 12/19/19 20:00 29 Mechanical Ventilator 80 12/19/19 20:00 100 12/19/19 19:33 96 24 80 12/19/19 19:30 96 28 102/55 (71) 99 12/19/19 19:00 98/51 12/19/19 19:00 25 Mechanical Ventilator 80 12/19/19 19:00 25 Mechanical Ventilator 80 12/19/19 19:00 101 25 98/51 (67) 99 12/19/19 18:41 20 Mechanical Ventilator 80 12/19/19 18:30 102 23 97/56 (70) 100 12/19/19 18:00 103 21 114/56 (75) 100 12/19/19 17:34 104 17 107/56 (73) 100 12/19/19 17:01 104 17 105/48 (67) 100 12/19/19 17:00 97/54 12/19/19 17:00 20 Mechanical Ventilator 80 12/19/19 17:00 20 Mechanical Ventilator 80 12/19/19 16:45 106 20 80 12/19/19 16:30 106 17 104/50 (68) 100 12/19/19 16:04 105 17 88/46 (60) 98 12/19/19 16:00 104 12/19/19 16:00 80 12/19/19 16:00 Mechanical Ventilator 12/19/19 16:00 88/46 12/19/19 16:00 20 Non-Rebreather 80 12/19/19 16:00 20 Mechanical Ventilator 80 12/19/19 16:00 98.8 105 17 88/46 (60) 98 12/19/19 15:30 106 17 97/60 (72) 100 12/19/19 15:04 101 17 92/55 (67) 100 12/19/19 15:00 112/54 12/19/19 15:00 20 Mechanical Ventilator 80 12/19/19 15:00 20 Mechanical Ventilator 80 12/19/19 14:54 106 21 80 12/19/19 14:30 100 17 98/55 (69) 100 12/19/19 14:15 98/55 12/19/19 14:00 100/57 12/19/19 14:00 20 Mechanical Ventilator 80 12/19/19 14:00 20 Mechanical Ventilator 80 12/19/19 14:00 98 17 99/60 (73) 100 12/19/19 13:45 99/60 12/19/19 13:30 105/56 12/19/19 13:30 98 17 105/56 (72) 100 12/19/19 13:15 101/59 12/19/19 13:15 20 Mechanical Ventilator 80 12/19/19 13:12 95 22 80 12/19/19 13:00 99/50 12/19/19 13:00 96 17 103/58 (73) 100 12/19/19 12:59 107/53 12/19/19 12:59 20 Mechanical Ventilator 80 12/19/19 12:59 20 Mechanical Ventilator 80 12/19/19 12:30 96 26 95/52 (66) 99 12/19/19 12:00 93 26 103/51 (68) 96 12/19/19 12:00 Mechanical Ventilator 12/19/19 12:00 103/51 12/19/19 12:00 26 Mechanical Ventilator 80 12/19/19 12:00 Mechanical Ventilator 100 12/19/19 12:00 93 12/19/19 12:00 80 12/19/19 11:30 88 32 99/52 (68) 99 12/19/19 11:00 112/54 12/19/19 11:00 33 Mechanical Ventilator 80 12/19/19 11:00 33 Mechanical Ventilator 80 12/19/19 11:00 82 31 117/59 (78) 99 12/19/19 10:55 85 35 80 12/19/19 10:45 83 30 116/57 (76) 98 12/19/19 10:30 84 27 112/57 (75) 98 12/19/19 10:15 85 33 115/57 (76) 98 12/19/19 10:00 85 30 122/55 (77) 99 12/19/19 10:00 115/57 12/19/19 10:00 31 Mechanical Ventilator 80 12/19/19 10:00 31 Mechanical Ventilator 80 12/19/19 09:30 85 28 117/57 (77) 98 12/19/19 09:02 88 24 80 12/19/19 09:00 84 27 112/60 (77) 98 12/19/19 09:00 122/56 12/19/19 09:00 27 Mechanical Ventilator 80 12/19/19 09:00 27 Mechanical Ventilator 80 12/19/19 08:30 85 25 125/64 (84) 98 12/19/19 08:00 85 12/19/19 08:00 98.2 84 24 112/61 (78) 99 12/19/19 08:00 80 12/19/19 08:00 Mechanical Ventilator 12/19/19 08:00 107/65 12/19/19 08:00 25 Mechanical Ventilator 80 12/19/19 08:00 25 Mechanical Ventilator 80 12/19/19 07:30 84 14 106/58 (74) 100 12/19/19 07:02 86 27 80 12/19/19 07:00 111/55 12/19/19 07:00 16 Mechanical Ventilator 80 12/19/19 07:00 16 Mechanical Ventilator 80 12/19/19 07:00 84 14 105/60 (75) 99 12/19/19 06:30 85 19 111/56 (74) 99 12/19/19 06:00 85 22 103/60 (74) 99 12/19/19 06:00 103/60 12/19/19 06:00 19 Mechanical Ventilator 80 12/19/19 06:00 19 Mechanical Ventilator 80 12/19/19 05:30 87 22 106/60 (75) 98 12/19/19 05:00 112/53 12/19/19 05:00 19 Mechanical Ventilator 80 12/19/19 05:00 19 Mechanical Ventilator 80 12/19/19 05:00 87 19 112/53 (72) 99 12/19/19 04:30 87 21 104/57 (73) 99 12/19/19 04:00 87 18 107/58 (74) 99 12/19/19 04:00 Mechanical Ventilator 12/19/19 04:00 107/58 12/19/19 04:00 18 Mechanical Ventilator 80 12/19/19 04:00 18 Mechanical Ventilator 80 12/19/19 04:00 88 12/19/19 04:00 80 12/19/19 03:30 97.6 91 19 108/54 (72) 100 12/19/19 03:21 82 32 80 12/19/19 03:00 107/56 12/19/19 03:00 20 Mechanical Ventilator 80 12/19/19 03:00 20 Mechanical Ventilator 80 12/19/19 03:00 92 20 107/56 (73) 100 12/19/19 02:30 93 15 110/56 (74) 98 12/19/19 02:08 102/51 12/19/19 02:06 24 Mechanical Ventilator 80 12/19/19 02:03 24 Mechanical Ventilator 80 12/19/19 02:00 95 23 102/51 (68) 100 12/19/19 02:00 102/51 12/19/19 02:00 23 Mechanical Ventilator 80 12/19/19 02:00 23 Mechanical Ventilator 80 12/19/19 01:30 96 24 104/49 (67) 100 12/19/19 01:00 98 24 101/55 (70) 99 12/19/19 01:00 101/58 12/19/19 01:00 27 Mechanical Ventilator 80 12/19/19 01:00 27 Mechanical Ventilator 80 12/19/19 00:30 99 25 109/51 (70) 99 12/19/19 00:00 99 12/19/19 00:00 Mechanical Ventilator 12/19/19 00:00 80 12/19/19 00:00 106/58 12/19/19 00:00 27 Mechanical Ventilator 80 12/19/19 00:00 27 Mechanical Ventilator 80 12/19/19 00:00 97.7 101 25 106/58 (74) 100 12/18/19 23:30 102 25 101/53 (69) 99 12/18/19 23:25 98 20 80 12/18/19 23:00 102 20 106/52 (70) 100 12/18/19 23:00 106/52 12/18/19 23:00 20 Mechanical Ventilator 80 12/18/19 23:00 20 Mechanical Ventilator 80 12/18/19 22:30 98 20 108/62 (77) 100 12/18/19 22:00 97 21 100/61 (74) 100 5/6/20 22:00 100/61 5/620 22:00 21 Mechanical Ventilator 80 520 22:00 21 Mechanical Ventilator 80 520 21:30 99 20 98/57 (71) 100 520 21:00 101/60 5/20 21:00 20 Mechanical Ventilator 80 5/20 21:00 20 Mechanical Ventilator 80 520 21:00 102 22 98/56 (70) 98 12/17/20 20:30 105 27 101/49 (66) 93 20 20:00 102 24 102/53 (69) 90 20 20:00 80 20 20:00 102/53 5/20 20:00 27 Mechanical Ventilator 80 12/18/19 20:00 27 Mechanical Ventilator 80 20 20:00 104 /20 20:00 Mechanical Ventilator 12/18/19 19:33 81 32 80 20 19:30 94 29 117/53 (74) 94 20 19:00 98.5 82 30 116/58 (77) 99 20 19:00 116/58 20 19:00 30 Mechanical Ventilator 80 20 19:00 30 Mechanical Ventilator 80 12/18/19 18:30 81 28 125/61 (82) 100 20 18:00 87 30 126/61 (82) 100 20 18:00 127/63 5//20 18:00 31 Mechanical Ventilator 80 12/18/19 18:00 31 Mechanical Ventilator 80 20 18:00 85 30 127/63 (84) 99 12/17/20 17:30 89 30 119/58 (78) 100 /20 17:30 90 31 119/58 (78) 100 /20 17:00 96 32 113/61 (78) 99 20 17:00 95 32 113/61 (78) 100 20 17:00 113/61 520 17:00 32 Mechanical Ventilator 80 20 17:00 32 Mechanical Ventilator 80 20 16:30 101 32 122/51 (74) 98 12/17/20 16:30 103 32 110/57 (74) 98 5/6/20 16:00 Mechanical Ventilator 20 16:00 98.0 107 32 116/49 (71) 97 20 16:00 116/49 12/18/19 16:00 32 Mechanical Ventilator 80 12/18/19 16:00 32 Mechanical Ventilator 80 20 16:00 107 20 16:00 80 20 16:00 104 32 124/47 (72) 97 20 15:41 124/60 12/18/19 15:40 107/55 20 15:30 106 31 121/49 (73) 99 20 15:30 104 31 107/55 (72) 97 12/18/19 15:16 106 32 80 12/18/19 15:00 104 31 107/55 (72) 97 12/18/19 15:00 109/53 12/18/19 15:00 33 Mechanical Ventilator 80 12/18/19 15:00 33 Mechanical Ventilator 80 12/18/19 15:00 106 33 109/53 (71) 97 12/18/19 14:30 105 32 121/57 (78) 98 12/18/19 14:00 103 22 109/53 (71) 93 12/18/19 14:00 114/54 12/18/19 14:00 30 Mechanical Ventilator 100 12/18/19 14:00 30 Mechanical Ventilator 100 12/18/19 13:30 106 30 109/54 (72) 97 12/18/19 13:11 100.0 12/18/19 13:00 108 30 111/48 (69) 96 12/18/19 13:00 111/48 12/18/19 13:00 31 Mechanical Ventilator 80 12/18/19 13:00 31 Mechanical Ventilator 80 20 12:30 106 30 102/57 (72) 96 20 12:30 102/57 20 12:15 106/56 12/18/19 12:00 105 30 110/53 (72) 97 20 12:00 Mechanical Ventilator 12/18/19 12:00 80 12/18/19 12:00 100.0 105 30 110/53 (72) 97 12/18/19 12:00 110/53 12/18/19 12:00 31 Mechanical Ventilator 80 12/18/19 12:00 31 Mechanical Ventilator 80 12/18/19 12:00 108 Intake and Output 12/19/19 12/20/19 19:00 07:00 Intake Total 895.045 ml 1207.06 ml Output Total 2000 ml 180 ml Balance -1104.955 ml 1027.06 ml Free Water 100 ml IV Total 475.045 ml 687.06 ml Tube Feeding 420 ml 420 ml Output Urine Total 0 ml 30 ml Stool Total 150 ml Hemodialysis UF 2000 ml Labs Test 12/19/19 03:45 12/20/19 04:45 White Blood Count 27.8 K/UL (4.8-10.8) 25.8 K/UL (4.8-10.8) Red Blood Count 3.05 M/UL (4.70-6.10) 3.03 M/UL (4.70-6.10) Hemoglobin 9.3 G/DL (14.2-18.0) 9.1 G/DL (14.2-18.0) Hematocrit 28.6 % (42.0-52.0) 27.9 % (42.0-52.0) Mean Corpuscular Volume 94 FL (80-99) 92 FL (80-99) Mean Corpuscular Hemoglobin 30.5 PG (27.0-31.0) 30.2 PG (27.0-31.0) Mean Corpuscular Hemoglobin Concent 32.5 G/DL (32.0-36.0) 32.8 G/DL (32.0-36.0) Red Cell Distribution Width 14.1 % (11.6-14.8) 14.7 % (11.6-14.8) Platelet Count 154 K/UL (150-450) 195 K/UL (150-450) Mean Platelet Volume 7.5 FL (6.5-10.1) 7.6 FL (6.5-10.1) Neutrophils (%) (Auto) % (45.0-75.0) % (45.0-75.0) Lymphocytes (%) (Auto) % (20.0-45.0) % (20.0-45.0) Monocytes (%) (Auto) % (1.0-10.0) % (1.0-10.0) Eosinophils (%) (Auto) % (0.0-3.0) % (0.0-3.0) Basophils (%) (Auto) % (0.0-2.0) % (0.0-2.0) Differential Total Cells Counted 100 100 Neutrophils % (Manual) 91 % (45-75) 91 % (45-75) Lymphocytes % (Manual) 5 % (20-45) 4 % (20-45) Monocytes % (Manual) 4 % (1-10) 5 % (1-10) Eosinophils % (Manual) 0 % (0-3) 0 % (0-3) Basophils % (Manual) 0 % (0-2) 0 % (0-2) Band Neutrophils 0 % (0-8) 0 % (0-8) Platelet Estimate Adequate Adequate Platelet Morphology Normal Normal Hypochromasia 2+ 2+ Anisocytosis 1+ 1+ Sodium Level 136 MMOL/L (136-145) 134 MMOL/L (136-145) Potassium Level 5.4 MMOL/L (3.5-5.1) 4.4 MMOL/L (3.5-5.1) Chloride Level 97 MMOL/L (98-107) 96 MMOL/L (98-107) Carbon Dioxide Level 32 MMOL/L (21-32) 33 MMOL/L (21-32) Anion Gap 7 mmol/L (5-15) 5 mmol/L (5-15) Blood Urea Nitrogen 57 mg/dL (7-18) 50 mg/dL (7-18) Creatinine 3.6 MG/DL (0.55-1.30) 3.4 MG/DL (0.55-1.30) Estimat Glomerular Filtration Rate 17.5 mL/min (>60) 18.7 mL/min (>60) Glucose Level 127 MG/DL (74-106) 129 MG/DL (74-106) Calcium Level 8.0 MG/DL (8.5-10.1) 8.7 MG/DL (8.5-10.1) Random Vancomycin Level 15.6 ug/mL Phosphorus Level 5.3 MG/DL (2.5-4.9) Magnesium Level 2.5 MG/DL (1.8-2.4) Total Bilirubin 0.6 MG/DL (0.2-1.0) Aspartate Amino Transf (AST/SGOT) 50 U/L (15-37) Alanine Aminotransferase (ALT/SGPT) 40 U/L (12-78) Alkaline Phosphatase 254 U/L (46-116) Total Protein 6.7 G/DL (6.4-8.2) Albumin 2.5 G/DL (3.4-5.0) Globulin 4.2 g/dL Albumin/Globulin Ratio 0.6 (1.0-2.7) Height (Feet): 5 Height (Inches): 6.00 Weight (Pounds): 161 Objective General: prone position on vent Heent: nc, at+ ng Respiratory: normal breath sounds, no retraction, vent++ Cardiovascular: no edema, tachycardia Gastrointestinal: normal inspection Neurologic unresponsive on vent Psychiatric: judgement/insight normal, memory normal, mood/affect normal, no suicidal/homicidal ideation Ext: with hd fem jia in place : + barnes and rectal tube Mj Zhu MD December 20, 2019 12:01
--- NOTE | 2019-12-20 13:03 | Diagnostic Imaging Report ---
Indication: Dyspnea Technique: One view of the chest Comparison: 12/16/2019 Findings: Stable satisfactory positions of endotracheal and nasogastric tubes. The heart size is normal. Bilateral diffuse infiltrates are unchanged. Impression: Unchanged, over four days, findings as above.
--- NOTE | 2019-12-20 13:19 | Urology Progress Note ---
Assessment/Plan Status: unchanged Assessment/Plan: 1. Phimosis. 2. Retention. 3. Hematuria. 4. Pyuria. 5. Proteinuria. 6. Acute kidney injury. 7. Meatal stenosis. monitor clinically maintain barnes, placed 12/04 hand irrigate PRN monitor urine output and renal fxn consider renal imaging abx as ordered HD per nephrology f/u on blood cx Subjective Allergies: Coded Allergies: No Known Allergies (Unverified , 11/29/19) Subjective remains on vent, still with minimal urine output, HD Objective Last 24 Hour Vital Signs Date Time Temp Pulse Resp B/P (MAP) Pulse Ox O2 Delivery O2 Flow Rate FiO2 12/20/19 12:30 99.0 12/20/19 12:00 Mechanical Ventilator 12/20/19 12:00 93 12/20/19 12:00 99.0 92 36 121/58 (79) 100 12/20/19 12:00 26 Mechanical Ventilator 15.0 80 12/20/19 12:00 119/60 12/20/19 12:00 26 Mechanical Ventilator 80 12/20/19 12:00 80 12/20/19 11:30 93 35 121/53 (75) 100 12/20/19 11:00 92 28 123/54 (77) 97 12/20/19 11:00 26 Mechanical Ventilator 80 12/20/19 11:00 109/46 12/20/19 11:00 28 Mechanical Ventilator 80 12/20/19 10:30 80 37 129/59 (82) 96 12/20/19 10:00 78 32 120/51 (74) 96 12/20/19 10:00 30 Mechanical Ventilator 80 12/20/19 10:00 120/51 12/20/19 10:00 30 Mechanical Ventilator 80 12/20/19 09:30 73 22 129/62 (84) 97 12/20/19 09:00 28 Mechanical Ventilator 80 12/20/19 09:00 112/52 12/20/19 09:00 28 Mechanical Ventilator 80 12/20/19 09:00 73 16 112/52 (72) 97 12/20/19 08:46 70 28 80 12/20/19 08:30 71 28 125/62 (83) 97 12/20/19 08:00 98.3 74 29 122/57 (78) 97 12/20/19 08:00 80 12/20/19 08:00 28 Mechanical Ventilator 80 12/20/19 08:00 122/57 12/20/19 08:00 28 Mechanical Ventilator 80 12/20/19 08:00 Mechanical Ventilator 12/20/19 08:00 77 12/20/19 07:30 76 21 122/59 (80) 97 12/20/19 07:00 80 28 115/55 (75) 97 12/20/19 07:00 28 Mechanical Ventilator 80 12/20/19 07:00 115/55 12/20/19 07:00 28 Mechanical Ventilator 80 12/20/19 06:38 80 21 80 12/20/19 06:30 82 19 111/54 (73) 96 12/20/19 06:00 31 Mechanical Ventilator 80 12/20/19 06:00 111/59 12/20/19 06:00 31 Mechanical Ventilator 80 12/20/19 06:00 81 31 111/59 (76) 93 12/20/19 05:41 115/58 12/20/19 05:30 76 29 109/60 (76) 91 12/20/19 05:00 72 25 115/58 (77) 97 12/20/19 05:00 25 Mechanical Ventilator 80 12/20/19 05:00 115/58 12/20/19 05:00 25 Mechanical Ventilator 80 12/20/19 04:30 66 21 128/62 (84) 98 12/20/19 04:00 22 Mechanical Ventilator 80 12/20/19 04:00 126/62 12/20/19 04:00 22 Mechanical Ventilator 80 12/20/19 04:00 Mechanical Ventilator 12/20/19 04:00 64 12/20/19 04:00 97.9 65 22 126/62 (83) 98 12/20/19 04:00 80 12/20/19 03:30 65 26 138/66 (90) 98 12/20/19 03:29 64 20 80 12/20/19 03:00 66 24 135/65 (88) 98 12/20/19 03:00 24 Mechanical Ventilator 80 12/20/19 03:00 135/65 12/20/19 03:00 24 Mechanical Ventilator 80 12/20/19 02:30 68 26 129/64 (85) 98 12/20/19 02:00 69 24 133/64 (87) 98 12/20/19 02:00 24 Mechanical Ventilator 80 12/20/19 02:00 133/64 12/20/19 02:00 24 Mechanical Ventilator 80 12/20/19 01:30 71 26 132/68 (89) 98 12/20/19 01:00 23 Mechanical Ventilator 80 12/20/19 01:00 127/62 12/20/19 01:00 23 Mechanical Ventilator 80 12/20/19 01:00 75 23 127/62 (83) 99 12/20/19 00:30 77 23 125/61 (82) 99 12/20/19 00:00 Mechanical Ventilator 12/20/19 00:00 99.2 79 21 126/58 (80) 100 12/20/19 00:00 80 12/20/19 00:00 21 Mechanical Ventilator 80 12/20/19 00:00 126/58 12/20/19 00:00 21 Mechanical Ventilator 80 12/20/19 00:00 21 Mechanical Ventilator 80 12/20/19 00:00 79 12/19/19 23:30 76 21 80 12/19/19 23:30 78 23 132/66 (88) 100 12/19/19 23:00 105/57 12/19/19 23:00 34 Mechanical Ventilator 80 12/19/19 23:00 34 Mechanical Ventilator 80 12/19/19 23:00 86 34 105/57 (73) 97 12/19/19 22:30 89 28 112/49 (70) 97 12/19/19 22:20 99.8 12/19/19 22:00 87 27 107/58 (74) 98 12/19/19 22:00 107/58 12/19/19 22:00 27 Mechanical Ventilator 80 12/19/19 22:00 27 Mechanical Ventilator 80 12/19/19 21:51 105/53 12/19/19 21:50 21 Mechanical Ventilator 80 12/19/19 21:30 90 27 108/54 (72) 100 12/19/19 21:00 112/55 12/19/19 21:00 24 Mechanical Ventilator 80 12/19/19 21:00 24 Mechanical Ventilator 80 12/19/19 21:00 90 24 112/55 (74) 100 12/19/19 20:30 91 26 103/53 (70) 99 12/19/19 20:00 80 12/19/19 20:00 99.8 94 29 102/54 (70) 99 12/19/19 20:00 Mechanical Ventilator 12/19/19 20:00 102/54 12/19/19 20:00 29 Mechanical Ventilator 80 12/19/19 20:00 29 Mechanical Ventilator 80 12/19/19 20:00 100 12/19/19 19:33 96 24 80 12/19/19 19:30 96 28 102/55 (71) 99 12/19/19 19:00 98/51 12/19/19 19:00 25 Mechanical Ventilator 80 12/19/19 19:00 25 Mechanical Ventilator 80 12/19/19 19:00 101 25 98/51 (67) 99 12/19/19 18:41 20 Mechanical Ventilator 80 12/19/19 18:30 102 23 97/56 (70) 100 12/19/19 18:00 103 21 114/56 (75) 100 12/19/19 17:34 104 17 107/56 (73) 100 12/19/19 17:01 104 17 105/48 (67) 100 12/19/19 17:00 97/54 12/19/19 17:00 20 Mechanical Ventilator 80 12/19/19 17:00 20 Mechanical Ventilator 80 12/19/19 16:45 106 20 80 12/19/19 16:30 106 17 104/50 (68) 100 12/19/19 16:04 105 17 88/46 (60) 98 12/19/19 16:00 104 12/19/19 16:00 80 12/19/19 16:00 Mechanical Ventilator 12/19/19 16:00 88/46 12/19/19 16:00 20 Non-Rebreather 80 12/19/19 16:00 20 Mechanical Ventilator 80 12/19/19 16:00 98.8 105 17 88/46 (60) 98 12/19/19 15:30 106 17 97/60 (72) 100 12/19/19 15:04 101 17 92/55 (67) 100 12/19/19 15:00 112/54 12/19/19 15:00 20 Mechanical Ventilator 80 12/19/19 15:00 20 Mechanical Ventilator 80 12/19/19 14:54 106 21 80 12/19/19 14:30 100 17 98/55 (69) 100 12/19/19 14:15 98/55 12/19/19 14:00 100/57 12/19/19 14:00 20 Mechanical Ventilator 80 12/19/19 14:00 20 Mechanical Ventilator 80 12/19/19 14:00 98 17 99/60 (73) 100 12/19/19 13:45 99/60 12/19/19 13:30 105/56 12/19/19 13:30 98 17 105/56 (72) 100 Intake and Output 12/19/19 12/20/19 19:00 07:00 Intake Total 895.045 ml 1207.06 ml Output Total 2000 ml 180 ml Balance -1104.955 ml 1027.06 ml Free Water 100 ml IV Total 475.045 ml 687.06 ml Tube Feeding 420 ml 420 ml Output Urine Total 0 ml 30 ml Stool Total 150 ml Hemodialysis UF 2000 ml Microbiology Date/Time Source Procedure Growth Status 12/17/19 06:55 Blood Blood Culture - Preliminary NO GROWTH AFTER 48 HOURS Resulted 12/16/19 16:00 Sputum Gram Stain - Final Complete 12/16/19 16:00 Sputum Sputum Culture - Final NORMAL UPPER RESPIRATORY ALISIA PRESENT Complete 12/11/19 22:50 Stool Clostridium difficile Toxin Assay - Final Complete 12/17/19 00:38 Indwelling Cath Urine Culture - Final NO GROWTH AFTER 48 HOURS Complete Current Medications Medications (Trade) Dose Ordered Sig/Vicki Route PRN Reason Start Time Stop Time Status Last Admin Dose Admin Acetaminophen (Tylenol) 650 mg Q4H PRN NG Temp >100.5 12/06/19 14:15 01/05/20 14:14 12/18/19 12:41 Acetaminophen (Tylenol) 650 mg Q4H PRN RECTAL Mild Pain (Pain Scale 1-3) 12/04/19 11:45 01/03/20 11:44 12/06/19 19:17 Chlorhexidine Gluconate (Arely-Hex 2%) 1 applic DAILY@2000 TOPIC 12/05/19 20:00 03/04/20 19:59 12/19/19 21:03 Dextrose (Dextrose 50%) 25 ml Q30M PRN IV Hypoglycemia 11/29/19 14:15 02/27/20 14:14 Dextrose (Dextrose 50%) 50 ml Q30M PRN IV Hypoglycemia 11/29/19 14:15 02/27/20 14:14 Fentanyl Citrate 2500 mcg/Sodium Chloride 250 ml @ 0 mls/hr Q24H IV 12/20/19 00:00 12/27/19 00:00 12/20/19 12:00 Fluconazole/ Sodium Chloride 100 ml @ 100 mls/hr Q24H IV 12/16/19 22:00 12/23/19 21:59 12/19/19 21:03 Folic Acid (Folate) 1 mg DAILY NG 12/18/19 09:00 01/17/20 08:59 12/20/19 08:27 Hydralazine HCl (Apresoline) 10 mg Q4H PRN IV For High Blood Pressure 11/29/19 15:15 02/27/20 15:14 Loperamide HCl (Imodium) 2 mg Q6H PRN NG Diarrhea 12/12/19 12:45 01/11/20 12:44 Meropenem 500 mg/ Sodium Chloride 50 ml @ 100 mls/hr Q24HRS IVPB 12/16/19 21:30 12/21/19 21:29 12/19/19 21:03 Midazolam HCl 100 ml @ 0 mls/hr Q24H PRN IV Restlessness 12/16/19 10:45 03/15/20 10:44 12/19/19 21:50 Midodrine (Pro-Amatine) 10 mg THREE TIMES A DAY ORAL 12/12/19 13:00 03/11/20 12:59 12/20/19 12:01 Norepinephrine Bitartrate 8 mg/ Dextrose 250 ml @ 0 mls/hr Q24H IV 12/18/19 09:00 01/17/20 08:59 12/20/19 05:41 Ondansetron HCl (Zofran) 4 mg Q6H PRN IVP Nausea & Vomiting 11/29/19 14:15 12/29/19 14:14 Pantoprazole (Protonix) 40 mg DAILY IVP 11/30/19 12:15 12/30/19 12:14 12/20/19 08:27 Vancomycin HCl (Vanco rx to dose) 1 ea DAILY PRN MISC Per rx protocol 12/08/19 19:30 01/07/20 19:29 Vitamin B Complex/ Vit C/Folic Acid (Nephrovite) 1 tab DAILY NG 12/16/19 09:00 01/15/20 08:59 12/20/19 08:27 Laboratory Tests 12/20/19 04:45: White Blood Count 25.8*H, Red Blood Count 3.03L, Hemoglobin 9.1L, Hematocrit 27.9L, Mean Corpuscular Volume 92, Mean Corpuscular Hemoglobin 30.2, Mean Corpuscular Hemoglobin Concent 32.8, Red Cell Distribution Width 14.7, Platelet Count 195, Mean Platelet Volume 7.6, Neutrophils (%) (Auto) , Lymphocytes (%) ( Auto) , Monocytes (%) (Auto) , Eosinophils (%) (Auto) , Basophils (%) (Auto) , Differential Total Cells Counted 100, Neutrophils % (Manual) 91H, Lymphocytes % (Manual) 4L, Monocytes % (Manual) 5, Eosinophils % (Manual) 0, Basophils % ( Manual) 0, Band Neutrophils 0, Platelet Estimate Adequate, Platelet Morphology Normal, Hypochromasia 2+, Anisocytosis 1+, Sodium Level 134L, Potassium Level 4.4, Chloride Level 96L, Carbon Dioxide Level 33H, Anion Gap 5, Blood Urea Nitrogen 50H, Creatinine 3.4H, Estimat Glomerular Filtration Rate 18.7, Glucose Level 129H, Calcium Level 8.7, Phosphorus Level 5.3H, Magnesium Level 2.5H, Total Bilirubin 0.6, Aspartate Amino Transf (AST/SGOT) 50H, Alanine Aminotransferase (ALT/SGPT) 40, Alkaline Phosphatase 254H, Total Protein 6.7, Albumin 2.5L, Globulin 4.2, Albumin/Globulin Ratio 0.6L Height (Feet): 5 Height (Inches): 6.00 Weight (Pounds): 161 Objective stable no bleeding at prepuce barnes indwelling, marge urine Kai Berger MD December 20, 2019 13:19
--- NOTE | 2019-12-20 14:00 | NUR ---
NURSE NOTES: Pt remains stable while maintained on Levophed at 10mcg/min and -2 light sedation per RASS score while on Fentanyl 150mcg/hr and Versed 1mg/hr. Pt is on cooling blanket to maintain body temp below 100.5.
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
--- NOTE | 2019-12-20 17:00 | NUR ---
NURSE NOTES: Levophed was titrated up to 14mcg/min to maintain SBP above 90 and MAP above 65 while receives bedside dialysis treatment. cook syrup maker is now at bedside to start HD. Pt was cleaned, gown/bed linens were changed. Pt was repositioned. oral care was done.
--- NOTE | 2019-12-20 17:30 | NUR ---
NURSE NOTES: Versed was removed from pyxis to replace previous bag that is now empty.
--- NOTE | 2019-12-20 17:59 | Infectious Diseases Prog Note ---
Assessment/Plan Assessment/Plan ASSESSMENT AND PLAN: 1. covid-19 virus infection with pna, rule out bacterial pna, sepsis/shock, fevers, leukocytosis vent, respiratory failure, ? leather currier bacteremia vs contaminant, fio2-80%, on pressors leukocytosis worse, persistent fevers, fungemia risk, c.diff. - negative - meropenem, vancomycin and diflucan - day # 5 combination - s/p hydroxychloroquine - monitor chest x-ray and labs - f/u cultures ordered - s/p tocilizumab - critical - getting HD - poor prognosis 2. Hypertension. 3. No known allergies. 4. Social history negative. 5. Family history noncontributory. 6. MAR was noted. 7. Case discussed with RN. 8. Continue treatment per primary consultants. Subjective Constitutional: Reports: fatigue, other - on vent, fever curve better ; Denies : fever HEENT: Reports: congestion Respiratory: Reports: shortness of breath Cardiovascular: Denies: chest pain Gastrointestinal/Abdominal: Denies: vomiting, diarrhea Genitourinary: Reports: other - + barnes - urine slt cloudy Neurologic: Reports: other - lethargic, weak Psychiatric: Reports: other - NA Skin: Denies: rash Hematologic: Denies: bleeding Musculoskeletal: Reports: other - NA Allergies: Coded Allergies: No Known Allergies (Unverified , 11/29/19) Objective Vital Signs Last 24 Hour Vital Signs Date Time Temp Pulse Resp B/P (MAP) Pulse Ox O2 Delivery O2 Flow Rate FiO2 12/20/19 17:21 29 Mechanical Ventilator 15.0 80 12/20/19 16:39 91 32 80 12/20/19 16:32 117/51 12/20/19 16:00 122/60 12/20/19 15:00 117/55 12/20/19 14:38 93 29 80 12/20/19 14:30 89 32 117/51 (73) 100 12/20/19 14:00 88 30 118/56 (76) 100 12/20/19 14:00 118/56 12/20/19 13:30 86 32 117/55 (75) 100 12/20/19 13:19 90 31 80 12/20/19 13:00 119/57 12/20/19 13:00 89 31 112/59 (76) 100 12/20/19 12:30 89 30 119/60 (79) 100 12/20/19 12:30 99.0 12/20/19 12:00 Mechanical Ventilator 12/20/19 12:00 93 12/20/19 12:00 99.0 92 36 121/58 (79) 100 12/20/19 12:00 26 Mechanical Ventilator 15.0 80 12/20/19 12:00 119/60 12/20/19 12:00 26 Mechanical Ventilator 80 12/20/19 12:00 80 12/20/19 11:30 93 35 121/53 (75) 100 12/20/19 11:03 84 27 80 12/20/19 11:00 92 28 123/54 (77) 97 12/20/19 11:00 26 Mechanical Ventilator 80 12/20/19 11:00 109/46 12/20/19 11:00 28 Mechanical Ventilator 80 12/20/19 10:30 80 37 129/59 (82) 96 12/20/19 10:00 78 32 120/51 (74) 96 12/20/19 10:00 30 Mechanical Ventilator 80 12/20/19 10:00 120/51 12/20/19 10:00 30 Mechanical Ventilator 80 12/20/19 09:30 73 22 129/62 (84) 97 12/20/19 09:00 28 Mechanical Ventilator 80 12/20/19 09:00 112/52 12/20/19 09:00 28 Mechanical Ventilator 80 12/20/19 09:00 73 16 112/52 (72) 97 12/20/19 08:46 70 28 80 12/20/19 08:30 71 28 125/62 (83) 97 12/20/19 08:00 98.3 74 29 122/57 (78) 97 12/20/19 08:00 80 12/20/19 08:00 28 Mechanical Ventilator 80 12/20/19 08:00 122/57 12/20/19 08:00 28 Mechanical Ventilator 80 12/20/19 08:00 Mechanical Ventilator 12/20/19 08:00 77 12/20/19 07:30 76 21 122/59 (80) 97 12/20/19 07:00 80 28 115/55 (75) 97 12/20/19 07:00 28 Mechanical Ventilator 80 12/20/19 07:00 115/55 12/20/19 07:00 28 Mechanical Ventilator 80 12/20/19 06:38 80 21 80 12/20/19 06:30 82 19 111/54 (73) 96 12/20/19 06:00 31 Mechanical Ventilator 80 12/20/19 06:00 111/59 12/20/19 06:00 31 Mechanical Ventilator 80 12/20/19 06:00 81 31 111/59 (76) 93 12/20/19 05:41 115/58 12/20/19 05:30 76 29 109/60 (76) 91 12/20/19 05:00 72 25 115/58 (77) 97 12/20/19 05:00 25 Mechanical Ventilator 80 12/20/19 05:00 115/58 12/20/19 05:00 25 Mechanical Ventilator 80 12/20/19 04:30 66 21 128/62 (84) 98 12/20/19 04:00 22 Mechanical Ventilator 80 12/20/19 04:00 126/62 12/20/19 04:00 22 Mechanical Ventilator 80 12/20/19 04:00 Mechanical Ventilator 12/20/19 04:00 64 12/20/19 04:00 97.9 65 22 126/62 (83) 98 12/20/19 04:00 80 12/20/19 03:30 65 26 138/66 (90) 98 12/20/19 03:29 64 20 80 12/20/19 03:00 66 24 135/65 (88) 98 12/20/19 03:00 24 Mechanical Ventilator 80 12/20/19 03:00 135/65 12/20/19 03:00 24 Mechanical Ventilator 80 12/20/19 02:30 68 26 129/64 (85) 98 12/20/19 02:00 69 24 133/64 (87) 98 12/20/19 02:00 24 Mechanical Ventilator 80 12/20/19 02:00 133/64 12/20/19 02:00 24 Mechanical Ventilator 80 12/20/19 01:30 71 26 132/68 (89) 98 12/20/19 01:00 23 Mechanical Ventilator 80 12/20/19 01:00 127/62 12/20/19 01:00 23 Mechanical Ventilator 80 12/20/19 01:00 75 23 127/62 (83) 99 12/20/19 00:30 77 23 125/61 (82) 99 12/20/19 00:00 Mechanical Ventilator 12/20/19 00:00 99.2 79 21 126/58 (80) 100 12/20/19 00:00 80 12/20/19 00:00 21 Mechanical Ventilator 80 12/20/19 00:00 126/58 12/20/19 00:00 21 Mechanical Ventilator 80 12/20/19 00:00 21 Mechanical Ventilator 80 12/20/19 00:00 79 12/19/19 23:30 76 21 80 12/19/19 23:30 78 23 132/66 (88) 100 12/19/19 23:00 105/57 12/19/19 23:00 34 Mechanical Ventilator 80 12/19/19 23:00 34 Mechanical Ventilator 80 12/19/19 23:00 86 34 105/57 (73) 97 12/19/19 22:30 89 28 112/49 (70) 97 12/19/19 22:20 99.8 12/19/19 22:00 87 27 107/58 (74) 98 12/19/19 22:00 107/58 12/19/19 22:00 27 Mechanical Ventilator 80 12/19/19 22:00 27 Mechanical Ventilator 80 12/19/19 21:51 105/53 12/19/19 21:50 21 Mechanical Ventilator 80 12/19/19 21:30 90 27 108/54 (72) 100 12/19/19 21:00 112/55 12/19/19 21:00 24 Mechanical Ventilator 80 12/19/19 21:00 24 Mechanical Ventilator 80 12/19/19 21:00 90 24 112/55 (74) 100 12/19/19 20:30 91 26 103/53 (70) 99 12/19/19 20:00 80 12/19/19 20:00 99.8 94 29 102/54 (70) 99 12/19/19 20:00 Mechanical Ventilator 12/19/19 20:00 102/54 12/19/19 20:00 29 Mechanical Ventilator 80 12/19/19 20:00 29 Mechanical Ventilator 80 12/19/19 20:00 100 12/19/19 19:33 96 24 80 12/19/19 19:30 96 28 102/55 (71) 99 12/19/19 19:00 98/51 12/19/19 19:00 25 Mechanical Ventilator 80 12/19/19 19:00 25 Mechanical Ventilator 80 12/19/19 19:00 101 25 98/51 (67) 99 12/19/19 18:41 20 Mechanical Ventilator 80 12/19/19 18:30 102 23 97/56 (70) 100 12/19/19 18:00 103 21 114/56 (75) 100 Height (Feet): 5 Height (Inches): 6.00 Weight (Pounds): 161 General Appearance: other - on vent and pressors HEENT: normocephalic, atraumatic, no JVD, other - oral - intubated Respiratory/Chest: crackles/rales, rhonchi - bilaterally Cardiovascular: normal rate, regular rhythm, no gallop/murmur Abdomen: normal bowel sounds, soft, non tender, no organomegaly, non distended Genitourinary: other - + barnes - urine slt cloudy Extremities: no cyanosis Skin: no rash Neurologic/Psychiatric: other - lethargic, poorly responsive Lymphatic: no neck adenopathy Musculoskeletal: no effusion Objective Chest x-ray - 12/02/19 - Procedure: XRAY Chest 1v EXAM: XR Chest, 1 View CLINICAL HISTORY: ABN CHST TECHNIQUE: Frontal view of the chest. COMPARISON: Chest x-ray dated 11/29/19 FINDINGS: Lungs: Persistent diffuse peripheral groundglass opacities, not significantly changed, concerning for pneumonia. Pleural space: Unremarkable. The costophrenic angles are sharp. No visible pneumothorax. Heart: Unremarkable. No cardiomegaly. Mediastinum: Unremarkable. Bones/joints: Mild degenerative changes throughout the visualized spine. Tubes, lines and devices: Telemetry leads overlie the thorax. IMPRESSION: No significant change compared to the prior chest x-ray. Persistent diffuse peripheral groundglass opacities, concerning for pneumonia. Chest x-ray - 12/07/19 - COMPARISON: Chest x-ray 12/06/19 1317 FINDINGS: Lungs: Diffuse bilateral airspace opacities, improved in the left lung and slightly worsened in the right lung. Pleural space: Unremarkable. No pneumothorax. Heart: Mild cardiomegaly. Mediastinum: Unremarkable. Bones/joints: Mild degenerative changes of spine. Tubes, lines and devices: Endotracheal tube and NG tube are stable. IMPRESSION: Diffuse bilateral airspace opacities, improved in the left lung and slightly worsened in the right lung. Chest x-ray - 12/10/19 - Procedure: XRAY Chest 1v Indication: Shortness of breath Technique: One view of the chest Comparison: 12/07/2019 Findings: There is worsening airspace opacity in the bilateral mid and lower lungs. The left hemidiaphragm is obscured, could indicate some pleural fluid. Stable satisfactory positions of endotracheal and nasogastric tubes. Impression: Worsening infiltrates, likely pneumonia, bilaterally Chest x-ray - 12/16/19 - Procedure: XRAY Chest 1v Indication: Shortness of breath Technique: One view of the chest Comparison: 12/15/2019 Findings: Diffuse and extensive bilateral hazy infiltrates are unchanged. Stable position of endotracheal and nasogastric tubes. Normal heart size. Findings are unchanged Impression: Unchanged, over one day, findings as above. Microbiology Date/Time Source Procedure Growth Status 12/17/19 06:55 Blood Blood Culture - Preliminary NO GROWTH AFTER 48 HOURS Resulted 12/16/19 16:00 Sputum Gram Stain - Final Complete 12/16/19 16:00 Sputum Sputum Culture - Final NORMAL UPPER RESPIRATORY ALISIA PRESENT Complete 12/11/19 22:50 Stool Clostridium difficile Toxin Assay - Final Complete 12/17/19 00:38 Indwelling Cath Urine Culture - Final NO GROWTH AFTER 48 HOURS Complete Laboratory Tests Test 12/20/19 04:45 White Blood Count 25.8 K/UL (4.8-10.8) *H Red Blood Count 3.03 M/UL (4.70-6.10) L Hemoglobin 9.1 G/DL (14.2-18.0) L Hematocrit 27.9 % (42.0-52.0) L Mean Corpuscular Volume 92 FL (80-99) Mean Corpuscular Hemoglobin 30.2 PG (27.0-31.0) Mean Corpuscular Hemoglobin Concent 32.8 G/DL (32.0-36.0) Red Cell Distribution Width 14.7 % (11.6-14.8) Platelet Count 195 K/UL (150-450) Mean Platelet Volume 7.6 FL (6.5-10.1) Neutrophils (%) (Auto) % (45.0-75.0) Lymphocytes (%) (Auto) % (20.0-45.0) Monocytes (%) (Auto) % (1.0-10.0) Eosinophils (%) (Auto) % (0.0-3.0) Basophils (%) (Auto) % (0.0-2.0) Differential Total Cells Counted 100 Neutrophils % (Manual) 91 % (45-75) H Lymphocytes % (Manual) 4 % (20-45) L Monocytes % (Manual) 5 % (1-10) Eosinophils % (Manual) 0 % (0-3) Basophils % (Manual) 0 % (0-2) Band Neutrophils 0 % (0-8) Platelet Estimate Adequate Platelet Morphology Normal Hypochromasia 2+ Anisocytosis 1+ Sodium Level 134 MMOL/L (136-145) L Potassium Level 4.4 MMOL/L (3.5-5.1) Chloride Level 96 MMOL/L (98-107) L Carbon Dioxide Level 33 MMOL/L (21-32) H Anion Gap 5 mmol/L (5-15) Blood Urea Nitrogen 50 mg/dL (7-18) H Creatinine 3.4 MG/DL (0.55-1.30) H Estimat Glomerular Filtration Rate 18.7 mL/min (>60) Glucose Level 129 MG/DL (74-106) H Calcium Level 8.7 MG/DL (8.5-10.1) Phosphorus Level 5.3 MG/DL (2.5-4.9) H Magnesium Level 2.5 MG/DL (1.8-2.4) H Total Bilirubin 0.6 MG/DL (0.2-1.0) Aspartate Amino Transf (AST/SGOT) 50 U/L (15-37) H Alanine Aminotransferase (ALT/SGPT) 40 U/L (12-78) Alkaline Phosphatase 254 U/L (46-116) H Total Protein 6.7 G/DL (6.4-8.2) Albumin 2.5 G/DL (3.4-5.0) L Globulin 4.2 g/dL Albumin/Globulin Ratio 0.6 (1.0-2.7) L Current Medications Medications (Trade) Dose Ordered Sig/Vicki Route PRN Reason Start Time Stop Time Status Last Admin Dose Admin Acetaminophen (Tylenol) 650 mg Q4H PRN NG Temp >100.5 12/06/19 14:15 01/05/20 14:14 12/18/19 12:41 Acetaminophen (Tylenol) 650 mg Q4H PRN RECTAL Mild Pain (Pain Scale 1-3) 12/04/19 11:45 01/03/20 11:44 12/06/19 19:17 Chlorhexidine Gluconate (Arely-Hex 2%) 1 applic DAILY@2000 TOPIC 12/05/19 20:00 03/04/20 19:59 12/19/19 21:03 Dextrose (Dextrose 50%) 25 ml Q30M PRN IV Hypoglycemia 11/29/19 14:15 02/27/20 14:14 Dextrose (Dextrose 50%) 50 ml Q30M PRN IV Hypoglycemia 11/29/19 14:15 02/27/20 14:14 Fentanyl Citrate 2500 mcg/Sodium Chloride 250 ml @ 0 mls/hr Q24H IV 12/20/19 00:00 12/27/19 00:00 12/20/19 12:00 Fluconazole/ Sodium Chloride 100 ml @ 100 mls/hr Q24H IV 12/16/19 22:00 12/23/19 21:59 12/19/19 21:03 Folic Acid (Folate) 1 mg DAILY NG 12/18/19 09:00 01/17/20 08:59 12/20/19 08:27 Hydralazine HCl (Apresoline) 10 mg Q4H PRN IV For High Blood Pressure 11/29/19 15:15 02/27/20 15:14 Loperamide HCl (Imodium) 2 mg Q6H PRN NG Diarrhea 12/12/19 12:45 01/11/20 12:44 Meropenem 500 mg/ Sodium Chloride 50 ml @ 100 mls/hr Q24HRS IVPB 12/16/19 21:30 12/21/19 21:29 12/19/19 21:03 Midazolam HCl 100 ml @ 0 mls/hr Q24H PRN IV Restlessness 12/16/19 10:45 03/15/20 10:44 12/20/19 17:21 Midodrine (Pro-Amatine) 10 mg THREE TIMES A DAY ORAL 12/12/19 13:00 03/11/20 12:59 12/20/19 16:33 Norepinephrine Bitartrate 8 mg/ Dextrose 250 ml @ 0 mls/hr Q24H IV 12/18/19 09:00 01/17/20 08:59 12/20/19 16:32 Ondansetron HCl (Zofran) 4 mg Q6H PRN IVP Nausea & Vomiting 11/29/19 14:15 12/29/19 14:14 Pantoprazole (Protonix) 40 mg DAILY IVP 11/30/19 12:15 12/30/19 12:14 12/20/19 08:27 Vancomycin HCl (Vanco rx to dose) 1 ea DAILY PRN MISC Per rx protocol 12/08/19 19:30 01/07/20 19:29 Vitamin B Complex/ Vit C/Folic Acid (Nephrovite) 1 tab DAILY NG 12/16/19 09:00 01/15/20 08:59 12/20/19 08:27 Ilsa Rodriguez MD December 20, 2019 17:58
--- NOTE | 2019-12-20 19:26 | NUR ---
HAND-OFF: Report given to Guerita LACKEY. Endorsed plan of care. VS remain stable.
--- NOTE | 2019-12-20 19:30 | NUR ---
NURSE NOTES: Received report from Jinny LACKEY. Upon visual inspection, patient presents in no acute distress. Patient sedated. Attached to monitor; vitals stable to baseline. Patient currently undergoing HD; HD nurse at bedside.
--- NOTE | 2019-12-20 20:00 | NUR ---
NURSE NOTES: Patient currently undergoing HD. Per HD nurse, Bismark cath dressing changed.
--- NOTE | 2019-12-20 22:00 | NUR ---
NURSE NOTES: Patient completed HD. Per HD nurse, 2L output. Patient in bed with no acute distress. Vitals stable to baseline. ETT 8; 24cm at lipline; ac 20; tv 500; peep 5; fio2 80%. Pt tolerating vent settings; spo2 99% at 25 breaths per min. Dressing noted on lower lip. Left NGT noted 65 cm at the lip; flushed and patent; Nepro running at goal of 35cc/hr; no residual noted; flushed 60 ml. . Aspiration precautions observed; HOB raised >30 degrees. Right femoral Bismark noted; flushed and patent; levophed infusing at 14 mcg/min, versed at 5mg/hr and Fentanyl at 150mcg/hour. Right hand 20g IV noted; initiated IV ABX as prescribed. Joe intact and patent; no output. Rectal tube draining well to gravity. Rectal thermometer probe in place; 98.9 F. Aspiration precautions observed. All safety measures met; side rails raised x3; bed locked at lowest position; bed alarm engaged on zone 2; call light within reach.
[2019-12-20] MEDS: Dyna-Hex 2% Top Sol 2oz TOPIC SCH (22:04)
[2019-12-21] VITALS (52 sets, daily range): BP systolic 94–159; BP diastolic 49–75
--- NOTE | 2019-12-21 | NUR ---
NURSE NOTES: Upon visual inspection, patient resting in bed with no acute signs of distress. Vitals remains stable to baseline. Pt afebrile; 98.8F rectal probe. Will continue to monitor.
--- NOTE | 2019-12-21 02:00 | NUR ---
NURSE NOTES: Continued infusion with new bag of levophed through right femoral Bismark cath at 14 mcg/min. BP115/23. Patient stable. Repositioned for comfort. Will continue to monitor.
--- NOTE | 2019-12-21 04:00 | NUR ---
NURSE NOTES: AM labs drawn; sent down to lab. Bismark dressing remains intact; flushed and patent; no change to IV titrations. Provided patient with complete bed bath; changed linens and gown. Sacral redness noted. Pressure wound noted to bilateral cheeks; dressing remains intact and unsoiled. Removed gauze from lower lip; no bleeding noted. Axillary temp 98.4 Patient and vitals remain stable to baseline. Repositioned for comfort; bilateral upper and lower extremities raised. Will continue to monitor.
[2019-12-21 04:41] LABS: HEMATOCRIT 28.5 % (42.0-52.0); HEMOGLOBIN 9.5 G/DL (14.2-18.0); MEAN CORPUSCULAR VOLUME 93 FL (80-99); PLATELET COUNT 197 K/UL (150-450); RED BLOOD COUNT 3.06 M/UL (4.70-6.10); RED CELL DISTRIBUTION WIDTH 14.4 % (11.6-14.8)
[2019-12-21 04:50] LABS: WHITE BLOOD COUNT 28.2 K/UL (4.8-10.8)
[2019-12-21] MEDS: fentaNYL Citrate 2,500 MCG in NS 200 ML IV SCH ×2 (04:58→21:09)
[2019-12-21 05:11] LABS: ANION GAP 3 mmol/L (5-15); BLOOD UREA NITROGEN 30 mg/dL (7-18); CALCIUM 7.8 MG/DL (8.5-10.1); CARBON DIOXIDE 36 MMOL/L (21-32); CHLORIDE 96 MMOL/L (98-107); CREATININE 2.4 MG/DL (0.55-1.30); POTASSIUM 4.2 MMOL/L (3.5-5.1); SODIUM 135 MMOL/L (136-145)
--- NOTE | 2019-12-21 06:00 | NUR ---
NURSE NOTES: Patient sleeping without acute distress. Vitals remain stable to baseline. Continued infusion with new bag of fentanyl through right femoral Bismark cath at 150 mcg/hr; respirations and saturation within normal limits. Emptied barnes and rectal tube; documented output. All safety measures met.
--- NOTE | 2019-12-21 07:19 | NUR ---
HAND-OFF: Report given to Namita Strong RN. Endorsed continuity of care.
--- NOTE | 2019-12-21 07:20 | NUR ---
NURSE NOTES: Report received from Ortega Smith RN. Pt is lightly sedated in bed. Sinus tachy on ekg monitor with HR 100's. Afebrile. Temp 98.6. ETT 8.0/24cm at lip line. AC 20, TV 500, P 5, FiO2 80%. O2 sat 100%. Left NGT in place receiving Nepro at 35cc/hr. No residual noted. Joe in place draining scant amount of urine to gravity. Rectal tube in place draining loose dark brown BM to gravity. Right femoral Bismark catheter for HD noted. IV to right hand G20 patent and asymptomatic. Pt is on Levophed at 14 mcg/min, Versed at 5 mg/hr, and Fentanyl at 150 mcg/hr. Bed in lowest position. Side rails up x3. Will resume plan of care.
[2019-12-21] MEDS: Midodrine 10mg tab ORAL SCH ×3 (08:29→17:07)
[2019-12-21] MEDS: Nephrovite tab (Rena-Vite) NG SCH (08:29)
[2019-12-21] MEDS: Pantoprazole Inj IVP SCH (08:29)
--- NOTE | 2019-12-21 09:54 | Urology Progress Note ---
Assessment/Plan Status: unchanged Assessment/Plan: 1. Phimosis. 2. Retention. 3. Hematuria. 4. Pyuria. 5. Proteinuria. 6. Acute kidney injury. 7. Meatal stenosis. monitor clinically maintain barnes, placed 12/04 hand irrigate PRN monitor urine output and renal fxn consider renal imaging abx as ordered HD per nephrology f/u on blood cx Subjective Allergies: Coded Allergies: No Known Allergies (Unverified , 11/29/19) Subjective remains on vent, still with minimal urine output, HD Objective Last 24 Hour Vital Signs Date Time Temp Pulse Resp B/P (MAP) Pulse Ox O2 Delivery O2 Flow Rate FiO2 12/21/19 08:00 99 12/21/19 07:34 100 12/21/19 07:01 100 34 80 12/21/19 06:30 100 30 126/68 (87) 100 12/21/19 06:00 101 29 123/64 (83) 100 12/21/19 06:00 29 Mechanical Ventilator 80 12/21/19 06:00 123/64 12/21/19 06:00 29 Mechanical Ventilator 80 12/21/19 05:30 100 28 125/61 (82) 100 12/21/19 05:00 97 27 128/65 (86) 100 12/21/19 05:00 27 Mechanical Ventilator 80 12/21/19 05:00 128/65 12/21/19 05:00 27 Mechanical Ventilator 80 12/21/19 04:58 27 Mechanical Ventilator 80 12/21/19 04:30 94 26 118/57 (77) 100 12/21/19 04:00 Mechanical Ventilator 12/21/19 04:00 98.4 93 24 120/59 (79) 100 12/21/19 04:00 24 Mechanical Ventilator 80 12/21/19 04:00 120/59 12/21/19 04:00 24 Mechanical Ventilator 80 12/21/19 04:00 93 12/21/19 04:00 80 12/21/19 03:30 94 26 117/58 (77) 100 12/21/19 03:10 89 30 80 12/21/19 03:00 21 Mechanical Ventilator 80 12/21/19 03:00 113/60 12/21/19 03:00 21 Mechanical Ventilator 80 12/21/19 03:00 91 21 113/60 (77) 100 12/21/19 02:30 90 24 115/57 (76) 100 12/21/19 02:12 115/59 12/21/19 02:00 23 Mechanical Ventilator 80 12/21/19 02:00 115/59 12/21/19 02:00 23 Mechanical Ventilator 80 12/21/19 02:00 88 23 115/59 (77) 100 12/21/19 01:30 88 23 115/60 (78) 100 12/21/19 01:00 22 Mechanical Ventilator 80 12/21/19 01:00 115/58 12/21/19 01:00 22 Mechanical Ventilator 80 12/21/19 01:00 89 22 115/58 (77) 100 12/21/19 00:30 88 23 116/60 (78) 100 12/21/19 00:00 98.8 92 22 121/61 (81) 100 12/21/19 00:00 Mechanical Ventilator 12/21/19 00:00 20 Mechanical Ventilator 80 12/21/19 00:00 121/61 12/21/19 00:00 20 80 12/21/19 00:00 92 12/20/19 23:45 94 25 129/56 (80) 100 12/20/19 23:30 96 26 124/60 (81) 100 12/20/19 23:22 106 33 80 12/20/19 23:15 101 23 122/60 (80) 100 12/20/19 23:00 20 Mechanical Ventilator 80 12/20/19 23:00 122/60 12/20/19 23:00 20 80 12/20/19 23:00 102 31 116/62 (80) 100 12/20/19 22:45 106 29 123/61 (81) 100 12/20/19 22:30 109 30 111/62 (78) 100 12/20/19 22:00 104 27 128/61 (83) 100 12/20/19 22:00 27 Mechanical Ventilator 80 12/20/19 22:00 128/61 12/20/19 22:00 27 Mechanical Ventilator 80 12/20/19 21:30 100 27 119/65 (83) 100 12/20/19 21:00 25 Mechanical Ventilator 80 12/20/19 21:00 125/66 12/20/19 21:00 25 Mechanical Ventilator 80 12/20/19 21:00 90 25 125/66 (85) 100 12/20/19 20:30 88 30 129/67 (87) 100 12/20/19 20:00 80 12/20/19 20:00 Mechanical Ventilator 12/20/19 20:00 28 Mechanical Ventilator 80 12/20/19 20:00 131/67 12/20/19 20:00 28 Mechanical Ventilator 80 12/20/19 20:00 98.9 86 28 131/67 (88) 100 12/20/19 20:00 100 12/20/19 19:30 84 30 133/66 (88) 98 12/20/19 19:24 93 34 80 12/20/19 19:00 89 33 131/64 (86) 99 12/20/19 19:00 24 Mechanical Ventilator 80 12/20/19 19:00 131/64 12/20/19 19:00 26 Mechanical Ventilator 80 12/20/19 18:30 94 33 131/62 (85) 97 12/20/19 18:00 26 Mechanical Ventilator 80 12/20/19 18:00 123/59 12/20/19 18:00 24 Mechanical Ventilator 80 12/20/19 18:00 98 33 128/55 (79) 96 12/20/19 17:51 99.0 12/20/19 17:30 95 31 120/54 (76) 99 12/20/19 17:21 29 Mechanical Ventilator 15.0 80 12/20/19 17:00 91 33 127/59 (81) 99 12/20/19 17:00 26 Mechanical Ventilator 80 12/20/19 17:00 116/52 12/20/19 17:00 26 Mechanical Ventilator 80 12/20/19 16:39 91 32 80 12/20/19 16:32 117/51 12/20/19 16:30 89 30 113/53 (73) 100 12/20/19 16:00 80 12/20/19 16:00 24 Mechanical Ventilator 80 12/20/19 16:00 122/60 12/20/19 16:00 26 Mechanical Ventilator 80 12/20/19 16:00 Mechanical Ventilator 12/20/19 16:00 85 12/20/19 16:00 98.5 76 33 122/60 (80) 97 12/20/19 15:30 84 31 118/56 (76) 100 12/20/19 15:00 24 Mechanical Ventilator 80 12/20/19 15:00 117/55 12/20/19 15:00 26 Mechanical Ventilator 80 12/20/19 15:00 83 24 118/55 (76) 100 12/20/19 14:38 93 29 80 12/20/19 14:30 89 32 117/51 (73) 100 12/20/19 14:00 88 30 118/56 (76) 100 12/20/19 14:00 24 Mechanical Ventilator 80 12/20/19 14:00 118/56 12/20/19 14:00 26 Mechanical Ventilator 80 12/20/19 13:30 86 32 117/55 (75) 100 12/20/19 13:19 90 31 80 12/20/19 13:00 24 Mechanical Ventilator 80 12/20/19 13:00 119/57 12/20/19 13:00 28 Mechanical Ventilator 80 12/20/19 13:00 89 31 112/59 (76) 100 12/20/19 12:30 89 30 119/60 (79) 100 12/20/19 12:30 99.0 12/20/19 12:00 Mechanical Ventilator 12/20/19 12:00 93 12/20/19 12:00 99.0 92 36 121/58 (79) 100 12/20/19 12:00 26 Mechanical Ventilator 15.0 80 12/20/19 12:00 119/60 12/20/19 12:00 26 Mechanical Ventilator 80 12/20/19 12:00 80 12/20/19 11:30 93 35 121/53 (75) 100 12/20/19 11:03 84 27 80 12/20/19 11:00 92 28 123/54 (77) 97 12/20/19 11:00 26 Mechanical Ventilator 80 12/20/19 11:00 109/46 12/20/19 11:00 28 Mechanical Ventilator 80 12/20/19 10:30 80 37 129/59 (82) 96 12/20/19 10:00 78 32 120/51 (74) 96 12/20/19 10:00 30 Mechanical Ventilator 80 12/20/19 10:00 120/51 12/20/19 10:00 30 Mechanical Ventilator 80 Intake and Output 12/20/19 12/21/19 19:00 07:00 Intake Total 1076.875 ml 1225.00 ml Output Total 0 ml 2105 ml Balance 1076.875 ml -880.00 ml Free Water 180 ml 160 ml IV Total 476.875 ml 680.00 ml Tube Feeding 420 ml 385 ml Output Urine Total 0 ml 5 ml Stool Total 100 ml Hemodialysis UF 2000 ml Microbiology Date/Time Source Procedure Growth Status 12/17/19 06:55 Blood Blood Culture - Preliminary NO GROWTH AFTER 72 HOURS Resulted 12/16/19 16:00 Sputum Gram Stain - Final Complete 12/16/19 16:00 Sputum Sputum Culture - Final NORMAL UPPER RESPIRATORY ALISIA PRESENT Complete 12/11/19 22:50 Stool Clostridium difficile Toxin Assay - Final Complete 12/17/19 00:38 Indwelling Cath Urine Culture - Final NO GROWTH AFTER 48 HOURS Complete Current Medications Medications (Trade) Dose Ordered Sig/Vicki Route PRN Reason Start Time Stop Time Status Last Admin Dose Admin Acetaminophen (Tylenol) 650 mg Q4H PRN NG Temp >100.5 12/06/19 14:15 01/05/20 14:14 12/18/19 12:41 Acetaminophen (Tylenol) 650 mg Q4H PRN RECTAL Mild Pain (Pain Scale 1-3) 12/04/19 11:45 01/03/20 11:44 12/06/19 19:17 Chlorhexidine Gluconate (Arely-Hex 2%) 1 applic DAILY@2000 TOPIC 12/05/19 20:00 03/04/20 19:59 12/20/19 22:04 Dextrose (Dextrose 50%) 25 ml Q30M PRN IV Hypoglycemia 11/29/19 14:15 02/27/20 14:14 Dextrose (Dextrose 50%) 50 ml Q30M PRN IV Hypoglycemia 11/29/19 14:15 02/27/20 14:14 Fentanyl Citrate 2500 mcg/Sodium Chloride 250 ml @ 0 mls/hr Q24H IV 12/20/19 00:00 12/27/19 00:00 12/21/19 04:58 Fluconazole/ Sodium Chloride 100 ml @ 100 mls/hr Q24H IV 12/16/19 22:00 12/23/19 21:59 12/20/19 22:05 Folic Acid (Folate) 1 mg DAILY NG 12/18/19 09:00 01/17/20 08:59 12/21/19 08:29 Hydralazine HCl (Apresoline) 10 mg Q4H PRN IV For High Blood Pressure 11/29/19 15:15 02/27/20 15:14 Loperamide HCl (Imodium) 2 mg Q6H PRN NG Diarrhea 12/12/19 12:45 01/11/20 12:44 Meropenem 500 mg/ Sodium Chloride 50 ml @ 100 mls/hr Q24H IVPB 12/20/19 21:30 12/25/19 21:29 12/20/19 22:05 Midazolam HCl 100 ml @ 0 mls/hr Q24H PRN IV Restlessness 12/16/19 10:45 03/15/20 10:44 12/20/19 17:21 Midodrine (Pro-Amatine) 10 mg THREE TIMES A DAY ORAL 12/12/19 13:00 03/11/20 12:59 12/21/19 08:29 Norepinephrine Bitartrate 8 mg/ Dextrose 250 ml @ 0 mls/hr Q24H IV 12/18/19 09:00 01/17/20 08:59 12/21/19 02:12 Ondansetron HCl (Zofran) 4 mg Q6H PRN IVP Nausea & Vomiting 11/29/19 14:15 12/29/19 14:14 Pantoprazole (Protonix) 40 mg DAILY IVP 11/30/19 12:15 12/30/19 12:14 12/21/19 08:29 Vancomycin HCl (Vanco rx to dose) 1 ea DAILY PRN MISC Per rx protocol 12/08/19 19:30 01/07/20 19:29 Vitamin B Complex/ Vit C/Folic Acid (Nephrovite) 1 tab DAILY NG 12/16/19 09:00 01/15/20 08:59 12/21/19 08:29 Laboratory Tests 12/21/19 04:00: White Blood Count 28.2*H, Red Blood Count 3.06L, Hemoglobin 9.5L, Hematocrit 28.5L, Mean Corpuscular Volume 93, Mean Corpuscular Hemoglobin 30.9, Mean Corpuscular Hemoglobin Concent 33.2, Red Cell Distribution Width 14.4, Platelet Count 197, Mean Platelet Volume 7.2, Neutrophils (%) (Auto) , Lymphocytes (%) ( Auto) , Monocytes (%) (Auto) , Eosinophils (%) (Auto) , Basophils (%) (Auto) , Neutrophils % (Manual) [Pending], Lymphocytes % (Manual) [Pending], Platelet Estimate [Pending], Platelet Morphology [Pending], Arterial Blood pH 7.238*L, Arterial Blood Partial Pressure CO2 82.6*H, Arterial Blood Partial Pressure O2 91.8, Arterial Blood HCO3 34.3H, Arterial Blood Oxygen Saturation 96.2, Arterial Blood Base Excess 5.2H, Melecio Test Positive, Sodium Level 135L, Potassium Level 4.2, Chloride Level 96L, Carbon Dioxide Level 36H, Anion Gap 3L , Blood Urea Nitrogen 30H, Creatinine 2.4H, Estimat Glomerular Filtration Rate 27.9, Glucose Level 110H, Calcium Level 7.8L Height (Feet): 5 Height (Inches): 6.00 Weight (Pounds): 160 Objective stable no bleeding at prepuce barnes indwelling, marge urine Kai Berger MD December 21, 2019 09:54
--- NOTE | 2019-12-21 10:00 | NUR ---
NURSE NOTES: Turned and repositioned pt. Afebrile. Spoke with the niece on the phone regarding pt's current condition. Pt is calm and lightly sedated in bed.
--- NOTE | 2019-12-21 11:59 | Pulmonology Progress Note ---
Subjective ROS Limited/Unobtainable: Yes Interval Events: Intubated ;proning on hold due to facial decubitus Constitutional: Reports: no symptoms, other HEENT: Repors: no symptoms Respiratory: Reports: no symptoms Cardiovascular: Reports: no symptoms Genitourinary: Reports: no symptoms Psychiatric: Reports: other Skin: Denies: rash Musculoskeletal: Reports: other Allergies: Coded Allergies: No Known Allergies (Unverified , 11/29/19) All Systems: reviewed and negative except above Subjective On daily HD Objective Last 24 Hour Vital Signs Date Time Temp Pulse Resp B/P (MAP) Pulse Ox O2 Delivery O2 Flow Rate FiO2 12/21/19 11:33 103 30 119/58 (78) 100 12/21/19 11:30 99 29 119/58 (78) 100 12/21/19 11:01 99 30 127/66 (86) 100 12/21/19 11:00 29 Mechanical Ventilator 80 12/21/19 11:00 122/67 12/21/19 11:00 29 Mechanical Ventilator 80 12/21/19 10:30 100 29 125/64 (84) 100 12/21/19 10:00 101 30 133/65 (87) 100 12/21/19 10:00 31 Mechanical Ventilator 80 12/21/19 10:00 131/65 12/21/19 10:00 31 Mechanical Ventilator 80 12/21/19 09:30 99 31 128/68 (88) 100 12/21/19 09:00 31 Mechanical Ventilator 80 12/21/19 09:00 135/67 12/21/19 09:00 31 80 12/21/19 09:00 100 31 131/69 (89) 100 12/21/19 08:30 101 33 131/72 (91) 100 12/21/19 08:00 99 12/21/19 08:00 Mechanical Ventilator 12/21/19 08:00 34 Mechanical Ventilator 80 12/21/19 08:00 133/64 12/21/19 08:00 34 100 12/21/19 08:00 80 12/21/19 08:00 98.6 100 33 130/62 (84) 100 12/21/19 07:34 100 12/21/19 07:30 101 33 134/65 (88) 100 12/21/19 07:01 100 34 80 12/21/19 07:00 32 Mechanical Ventilator 80 12/21/19 07:00 130/69 12/21/19 07:00 32 Mechanical Ventilator 80 12/21/19 07:00 99 32 131/68 (89) 100 12/21/19 06:30 100 30 126/68 (87) 100 12/21/19 06:00 101 29 123/64 (83) 100 12/21/19 06:00 29 Mechanical Ventilator 80 12/21/19 06:00 123/64 12/21/19 06:00 29 Mechanical Ventilator 80 12/21/19 05:30 100 28 125/61 (82) 100 12/21/19 05:00 97 27 128/65 (86) 100 12/21/19 05:00 27 Mechanical Ventilator 80 12/21/19 05:00 128/65 12/21/19 05:00 27 Mechanical Ventilator 80 12/21/19 04:58 27 Mechanical Ventilator 80 12/21/19 04:30 94 26 118/57 (77) 100 12/21/19 04:00 Mechanical Ventilator 12/21/19 04:00 98.4 93 24 120/59 (79) 100 12/21/19 04:00 24 Mechanical Ventilator 80 12/21/19 04:00 120/59 12/21/19 04:00 24 Mechanical Ventilator 80 12/21/19 04:00 93 12/21/19 04:00 80 12/21/19 03:30 94 26 117/58 (77) 100 12/21/19 03:10 89 30 80 12/21/19 03:00 21 Mechanical Ventilator 80 12/21/19 03:00 113/60 12/21/19 03:00 21 Mechanical Ventilator 80 12/21/19 03:00 91 21 113/60 (77) 100 12/21/19 02:30 90 24 115/57 (76) 100 12/21/19 02:12 115/59 12/21/19 02:00 23 Mechanical Ventilator 80 12/21/19 02:00 115/59 12/21/19 02:00 23 Mechanical Ventilator 80 12/21/19 02:00 88 23 115/59 (77) 100 12/21/19 01:30 88 23 115/60 (78) 100 12/21/19 01:00 22 Mechanical Ventilator 80 12/21/19 01:00 115/58 12/21/19 01:00 22 Mechanical Ventilator 80 12/21/19 01:00 89 22 115/58 (77) 100 12/21/19 00:30 88 23 116/60 (78) 100 12/21/19 00:00 98.8 92 22 121/61 (81) 100 12/21/19 00:00 Mechanical Ventilator 12/21/19 00:00 20 Mechanical Ventilator 80 12/21/19 00:00 121/61 12/21/19 00:00 20 80 12/21/19 00:00 92 12/20/19 23:45 94 25 129/56 (80) 100 12/20/19 23:30 96 26 124/60 (81) 100 12/20/19 23:22 106 33 80 12/20/19 23:15 101 23 122/60 (80) 100 12/20/19 23:00 20 Mechanical Ventilator 80 12/20/19 23:00 122/60 12/20/19 23:00 20 80 12/20/19 23:00 102 31 116/62 (80) 100 12/20/19 22:45 106 29 123/61 (81) 100 12/20/19 22:30 109 30 111/62 (78) 100 12/20/19 22:00 104 27 128/61 (83) 100 12/20/19 22:00 27 Mechanical Ventilator 80 12/20/19 22:00 128/61 12/20/19 22:00 27 Mechanical Ventilator 80 12/20/19 21:30 100 27 119/65 (83) 100 12/20/19 21:00 25 Mechanical Ventilator 80 12/20/19 21:00 125/66 12/20/19 21:00 25 Mechanical Ventilator 80 12/20/19 21:00 90 25 125/66 (85) 100 12/20/19 20:30 88 30 129/67 (87) 100 12/20/19 20:00 80 12/20/19 20:00 Mechanical Ventilator 12/20/19 20:00 28 Mechanical Ventilator 80 12/20/19 20:00 131/67 12/20/19 20:00 28 Mechanical Ventilator 80 12/20/19 20:00 98.9 86 28 131/67 (88) 100 12/20/19 20:00 100 12/20/19 19:30 84 30 133/66 (88) 98 12/20/19 19:24 93 34 80 12/20/19 19:00 89 33 131/64 (86) 99 12/20/19 19:00 24 Mechanical Ventilator 80 12/20/19 19:00 131/64 12/20/19 19:00 26 Mechanical Ventilator 80 12/20/19 18:30 94 33 131/62 (85) 97 12/20/19 18:00 26 Mechanical Ventilator 80 12/20/19 18:00 123/59 12/20/19 18:00 24 Mechanical Ventilator 80 12/20/19 18:00 98 33 128/55 (79) 96 12/20/19 17:51 99.0 12/20/19 17:30 95 31 120/54 (76) 99 12/20/19 17:21 29 Mechanical Ventilator 15.0 80 12/20/19 17:00 91 33 127/59 (81) 99 12/20/19 17:00 26 Mechanical Ventilator 80 12/20/19 17:00 116/52 12/20/19 17:00 26 Mechanical Ventilator 80 12/20/19 16:39 91 32 80 12/20/19 16:32 117/51 12/20/19 16:30 89 30 113/53 (73) 100 12/20/19 16:00 80 12/20/19 16:00 24 Mechanical Ventilator 80 12/20/19 16:00 122/60 12/20/19 16:00 26 Mechanical Ventilator 80 12/20/19 16:00 Mechanical Ventilator 12/20/19 16:00 85 12/20/19 16:00 98.5 76 33 122/60 (80) 97 12/20/19 15:30 84 31 118/56 (76) 100 12/20/19 15:00 24 Mechanical Ventilator 80 12/20/19 15:00 117/55 12/20/19 15:00 26 Mechanical Ventilator 80 12/20/19 15:00 83 24 118/55 (76) 100 12/20/19 14:38 93 29 80 12/20/19 14:30 89 32 117/51 (73) 100 12/20/19 14:00 88 30 118/56 (76) 100 12/20/19 14:00 24 Mechanical Ventilator 80 12/20/19 14:00 118/56 12/20/19 14:00 26 Mechanical Ventilator 80 12/20/19 13:30 86 32 117/55 (75) 100 12/20/19 13:19 90 31 80 12/20/19 13:00 24 Mechanical Ventilator 80 12/20/19 13:00 119/57 12/20/19 13:00 28 Mechanical Ventilator 80 12/20/19 13:00 89 31 112/59 (76) 100 12/20/19 12:30 89 30 119/60 (79) 100 12/20/19 12:30 99.0 12/20/19 12:00 Mechanical Ventilator 12/20/19 12:00 93 12/20/19 12:00 99.0 92 36 121/58 (79) 100 12/20/19 12:00 26 Mechanical Ventilator 15.0 80 12/20/19 12:00 119/60 12/20/19 12:00 26 Mechanical Ventilator 80 12/20/19 12:00 80 Intake and Output 12/20/19 12/21/19 19:00 07:00 Intake Total 1076.875 ml 1260.00 ml Output Total 0 ml 2105 ml Balance 1076.875 ml -845.00 ml Free Water 180 ml 160 ml IV Total 476.875 ml 680.00 ml Tube Feeding 420 ml 420 ml Output Urine Total 0 ml 5 ml Stool Total 100 ml Hemodialysis UF 2000 ml General Appearance: other HEENT: normocephalic, atraumatic, no JVD, other Respiratory/Chest: chest wall non-tender, decreased breath sounds Cardiovascular: normal peripheral pulses, normal rate Abdomen: normal bowel sounds, soft, non tender, no organomegaly, non distended Genitourinary: other Extremities: no cyanosis Skin: no rash Neurologic/Psychiatric: other Lymphatic: no neck adenopathy Musculoskeletal: no effusion Laboratory Tests 12/21/19 04:00: White Blood Count 28.2*H, Red Blood Count 3.06L, Hemoglobin 9.5L, Hematocrit 28.5L, Mean Corpuscular Volume 93, Mean Corpuscular Hemoglobin 30.9, Mean Corpuscular Hemoglobin Concent 33.2, Red Cell Distribution Width 14.4, Platelet Count 197, Mean Platelet Volume 7.2, Neutrophils (%) (Auto) , Lymphocytes (%) ( Auto) , Monocytes (%) (Auto) , Eosinophils (%) (Auto) , Basophils (%) (Auto) , Differential Total Cells Counted 100, Neutrophils % (Manual) 86H, Lymphocytes % (Manual) 7L, Monocytes % (Manual) 7, Eosinophils % (Manual) 0, Basophils % ( Manual) 0, Band Neutrophils 0, Platelet Estimate Adequate, Platelet Morphology Normal, Hypochromasia 2+, Anisocytosis 1+, Arterial Blood pH 7.238*L, Arterial Blood Partial Pressure CO2 82.6*H, Arterial Blood Partial Pressure O2 91.8, Arterial Blood HCO3 34.3H, Arterial Blood Oxygen Saturation 96.2, Arterial Blood Base Excess 5.2H, Melecio Test Positive, Sodium Level 135L, Potassium Level 4.2, Chloride Level 96L, Carbon Dioxide Level 36H, Anion Gap 3L, Blood Urea Nitrogen 30H, Creatinine 2.4H, Estimat Glomerular Filtration Rate 27.9, Glucose Level 110H, Calcium Level 7.8L, Random Vancomycin Level 7.8 Current Medications Medications (Trade) Dose Ordered Sig/Vicki Route PRN Reason Start Time Stop Time Status Last Admin Dose Admin Acetaminophen (Tylenol) 650 mg Q4H PRN NG Temp >100.5 12/06/19 14:15 01/05/20 14:14 12/18/19 12:41 Acetaminophen (Tylenol) 650 mg Q4H PRN RECTAL Mild Pain (Pain Scale 1-3) 12/04/19 11:45 01/03/20 11:44 12/06/19 19:17 Chlorhexidine Gluconate (Arely-Hex 2%) 1 applic DAILY@2000 TOPIC 12/05/19 20:00 03/04/20 19:59 12/20/19 22:04 Dextrose (Dextrose 50%) 25 ml Q30M PRN IV Hypoglycemia 11/29/19 14:15 02/27/20 14:14 Dextrose (Dextrose 50%) 50 ml Q30M PRN IV Hypoglycemia 11/29/19 14:15 02/27/20 14:14 Fentanyl Citrate 2500 mcg/Sodium Chloride 250 ml @ 0 mls/hr Q24H IV 12/20/19 00:00 12/27/19 00:00 12/21/19 04:58 Fluconazole/ Sodium Chloride 100 ml @ 100 mls/hr Q24H IV 12/16/19 22:00 12/23/19 21:59 12/20/19 22:05 Folic Acid (Folate) 1 mg DAILY NG 12/18/19 09:00 6/5/20 08:59 12/21/19 08:29 Hydralazine HCl (Apresoline) 10 mg Q4H PRN IV For High Blood Pressure 11/29/19 15:15 02/27/20 15:14 Loperamide HCl (Imodium) 2 mg Q6H PRN NG Diarrhea 12/12/19 12:45 01/11/20 12:44 Meropenem 500 mg/ Sodium Chloride 50 ml @ 100 mls/hr Q24H IVPB 12/20/19 21:30 12/25/19 21:29 12/20/19 22:05 Midazolam HCl 100 ml @ 0 mls/hr Q24H PRN IV Restlessness 12/16/19 10:45 03/15/20 10:44 12/20/19 17:21 Midodrine (Pro-Amatine) 10 mg THREE TIMES A DAY ORAL 12/12/19 13:00 03/11/20 12:59 12/21/19 08:29 Norepinephrine Bitartrate 8 mg/ Dextrose 250 ml @ 0 mls/hr Q24H IV 12/18/19 09:00 01/17/20 08:59 12/21/19 02:12 Ondansetron HCl (Zofran) 4 mg Q6H PRN IVP Nausea & Vomiting 11/29/19 14:15 12/29/19 14:14 Pantoprazole (Protonix) 40 mg DAILY IVP 11/30/19 12:15 12/30/19 12:14 12/21/19 08:29 Vancomycin HCl (Vanco rx to dose) 1 ea DAILY PRN MISC Per rx protocol 12/08/19 19:30 01/07/20 19:29 Vancomycin/Sodium Chloride 275 ml @ 140 mls/hr ONCE IVPB 12/21/19 12:30 12/21/19 14:30 Vitamin B Complex/ Vit C/Folic Acid (Nephrovite) 1 tab DAILY NG 12/16/19 09:00 01/15/20 08:59 12/21/19 08:29 Assessment/Plan Assessment/Plan IMPRESSION: 1. Bilateral pneumonia. 2. Positive COVID-19. 3. Respiratory failure. DISCUSSION: Intubated On AC 20; FiO2 100; PEEP 5; SaO2 99% Mediastinal PTX; stable; continue low PEEP ventilation Hold proning On Fentanyl due to high triglycerides Saturations are better Grave prognosis I will follow carefully. On HD now S/p Actemra Blood CS ? contaminant Needs ongoing HD; more ultrafiltration Urine CS negative Will decrease PEEP to 3 Continue vent Tray Tolentino Omar Syed MD December 21, 2019 11:58
--- NOTE | 2019-12-21 12:00 | NUR ---
NURSE NOTES: Dr Cortes here to see the patient. Updated him with pt's current condition including ABG result and the current vent setting. Order to changed the vent setting entered by Dr Cortes. Notified RT.
--- NOTE | 2019-12-21 12:06 | Nephrology Progress Note ---
Assessment/Plan Plan #ALBARO- concerns for developing ischemic ATN in the setting of sepsis- r/o vanco toxicity - r/o COVID nephropathy - now with likely ATN #Hyperkalemia due to renal insuffiency - exacerbated by acidosis #COID sepsis #COVID pneumonia #hypoxemic respiratary failure #HTN- now in shock #mediastinal PTX - continue daily HD - midodorine 10mg q8hr - monitor I&Os - daily weights - monitor lytes closely -add nephrovite - GOALS of care discussion - continue pressor support to maintain MAP > 65- continue levo - continue fentanyl dip - abx per ID- on vanco and meropenem - vent management per pulm -Abd Xray shows mediastinal PTX - too high risk for thorocotomy Subjective ROS Limited/Unobtainable: Yes Subjective will continue with daily HD remains oliguric on Fio2 80 on levo Abd Xray shows mediastinal PTX Objective Objective Last 24 Hour Vital Signs Date Time Temp Pulse Resp B/P (MAP) Pulse Ox O2 Delivery O2 Flow Rate FiO2 12/21/19 11:33 103 30 119/58 (78) 100 12/21/19 11:30 99 29 119/58 (78) 100 12/21/19 11:01 99 30 127/66 (86) 100 12/21/19 11:00 29 Mechanical Ventilator 80 12/21/19 11:00 122/67 12/21/19 11:00 29 Mechanical Ventilator 80 12/21/19 10:30 100 29 125/64 (84) 100 12/21/19 10:00 101 30 133/65 (87) 100 12/21/19 10:00 31 Mechanical Ventilator 80 12/21/19 10:00 131/65 12/21/19 10:00 31 Mechanical Ventilator 80 12/21/19 09:30 99 31 128/68 (88) 100 12/21/19 09:00 31 Mechanical Ventilator 80 12/21/19 09:00 135/67 12/21/19 09:00 31 80 12/21/19 09:00 100 31 131/69 (89) 100 12/21/19 08:30 101 33 131/72 (91) 100 12/21/19 08:00 99 12/21/19 08:00 Mechanical Ventilator 12/21/19 08:00 34 Mechanical Ventilator 80 12/21/19 08:00 133/64 12/21/19 08:00 34 100 12/21/19 08:00 80 12/21/19 08:00 98.6 100 33 130/62 (84) 100 12/21/19 07:34 100 12/21/19 07:30 101 33 134/65 (88) 100 12/21/19 07:01 100 34 80 12/21/19 07:00 32 Mechanical Ventilator 80 12/21/19 07:00 130/69 12/21/19 07:00 32 Mechanical Ventilator 80 12/21/19 07:00 99 32 131/68 (89) 100 12/21/19 06:30 100 30 126/68 (87) 100 12/21/19 06:00 101 29 123/64 (83) 100 12/21/19 06:00 29 Mechanical Ventilator 80 12/21/19 06:00 123/64 12/21/19 06:00 29 Mechanical Ventilator 80 12/21/19 05:30 100 28 125/61 (82) 100 12/21/19 05:00 97 27 128/65 (86) 100 12/21/19 05:00 27 Mechanical Ventilator 80 12/21/19 05:00 128/65 12/21/19 05:00 27 Mechanical Ventilator 80 12/21/19 04:58 27 Mechanical Ventilator 80 12/21/19 04:30 94 26 118/57 (77) 100 12/21/19 04:00 Mechanical Ventilator 12/21/19 04:00 98.4 93 24 120/59 (79) 100 12/21/19 04:00 24 Mechanical Ventilator 80 12/21/19 04:00 120/59 12/21/19 04:00 24 Mechanical Ventilator 80 12/21/19 04:00 93 12/21/19 04:00 80 12/21/19 03:30 94 26 117/58 (77) 100 12/21/19 03:10 89 30 80 12/21/19 03:00 21 Mechanical Ventilator 80 12/21/19 03:00 113/60 12/21/19 03:00 21 Mechanical Ventilator 80 12/21/19 03:00 91 21 113/60 (77) 100 12/21/19 02:30 90 24 115/57 (76) 100 12/21/19 02:12 115/59 12/21/19 02:00 23 Mechanical Ventilator 80 12/21/19 02:00 115/59 12/21/19 02:00 23 Mechanical Ventilator 80 12/21/19 02:00 88 23 115/59 (77) 100 12/21/19 01:30 88 23 115/60 (78) 100 12/21/19 01:00 22 Mechanical Ventilator 80 12/21/19 01:00 115/58 12/21/19 01:00 22 Mechanical Ventilator 80 12/21/19 01:00 89 22 115/58 (77) 100 12/21/19 00:30 88 23 116/60 (78) 100 12/21/19 00:00 98.8 92 22 121/61 (81) 100 12/21/19 00:00 Mechanical Ventilator 12/21/19 00:00 20 Mechanical Ventilator 80 12/21/19 00:00 121/61 12/21/19 00:00 20 80 12/21/19 00:00 92 12/20/19 23:45 94 25 129/56 (80) 100 12/20/19 23:30 96 26 124/60 (81) 100 12/20/19 23:22 106 33 80 12/20/19 23:15 101 23 122/60 (80) 100 12/20/19 23:00 20 Mechanical Ventilator 80 12/20/19 23:00 122/60 12/20/19 23:00 20 80 12/20/19 23:00 102 31 116/62 (80) 100 12/20/19 22:45 106 29 123/61 (81) 100 12/20/19 22:30 109 30 111/62 (78) 100 12/20/19 22:00 104 27 128/61 (83) 100 12/20/19 22:00 27 Mechanical Ventilator 80 12/20/19 22:00 128/61 12/20/19 22:00 27 Mechanical Ventilator 80 12/20/19 21:30 100 27 119/65 (83) 100 12/20/19 21:00 25 Mechanical Ventilator 80 12/20/19 21:00 125/66 12/20/19 21:00 25 Mechanical Ventilator 80 12/20/19 21:00 90 25 125/66 (85) 100 12/20/19 20:30 88 30 129/67 (87) 100 12/20/19 20:00 80 12/20/19 20:00 Mechanical Ventilator 12/20/19 20:00 28 Mechanical Ventilator 80 12/20/19 20:00 131/67 12/20/19 20:00 28 Mechanical Ventilator 80 12/20/19 20:00 98.9 86 28 131/67 (88) 100 12/20/19 20:00 100 12/20/19 19:30 84 30 133/66 (88) 98 12/20/19 19:24 93 34 80 12/20/19 19:00 89 33 131/64 (86) 99 12/20/19 19:00 24 Mechanical Ventilator 80 12/20/19 19:00 131/64 12/20/19 19:00 26 Mechanical Ventilator 80 12/20/19 18:30 94 33 131/62 (85) 97 12/20/19 18:00 26 Mechanical Ventilator 80 12/20/19 18:00 123/59 12/20/19 18:00 24 Mechanical Ventilator 80 12/20/19 18:00 98 33 128/55 (79) 96 12/20/19 17:51 99.0 12/20/19 17:30 95 31 120/54 (76) 99 12/20/19 17:21 29 Mechanical Ventilator 15.0 80 12/20/19 17:00 91 33 127/59 (81) 99 12/20/19 17:00 26 Mechanical Ventilator 80 12/20/19 17:00 116/52 12/20/19 17:00 26 Mechanical Ventilator 80 12/20/19 16:39 91 32 80 12/20/19 16:32 117/51 12/20/19 16:30 89 30 113/53 (73) 100 12/20/19 16:00 80 12/20/19 16:00 24 Mechanical Ventilator 80 12/20/19 16:00 122/60 12/20/19 16:00 26 Mechanical Ventilator 80 12/20/19 16:00 Mechanical Ventilator 12/20/19 16:00 85 12/20/19 16:00 98.5 76 33 122/60 (80) 97 12/20/19 15:30 84 31 118/56 (76) 100 12/20/19 15:00 24 Mechanical Ventilator 80 12/20/19 15:00 117/55 12/20/19 15:00 26 Mechanical Ventilator 80 12/20/19 15:00 83 24 118/55 (76) 100 12/20/19 14:38 93 29 80 12/20/19 14:30 89 32 117/51 (73) 100 12/20/19 14:00 88 30 118/56 (76) 100 12/20/19 14:00 24 Mechanical Ventilator 80 12/20/19 14:00 118/56 12/20/19 14:00 26 Mechanical Ventilator 80 12/20/19 13:30 86 32 117/55 (75) 100 12/20/19 13:19 90 31 80 12/20/19 13:00 24 Mechanical Ventilator 80 12/20/19 13:00 119/57 12/20/19 13:00 28 Mechanical Ventilator 80 12/20/19 13:00 89 31 112/59 (76) 100 12/20/19 12:30 89 30 119/60 (79) 100 12/20/19 12:30 99.0 Intake and Output 12/20/19 12/21/19 19:00 07:00 Intake Total 1076.875 ml 1260.00 ml Output Total 0 ml 2105 ml Balance 1076.875 ml -845.00 ml Free Water 180 ml 160 ml IV Total 476.875 ml 680.00 ml Tube Feeding 420 ml 420 ml Output Urine Total 0 ml 5 ml Stool Total 100 ml Hemodialysis UF 2000 ml Laboratory Tests 12/21/19 04:00: White Blood Count 28.2*H, Red Blood Count 3.06L, Hemoglobin 9.5L, Hematocrit 28.5L, Mean Corpuscular Volume 93, Mean Corpuscular Hemoglobin 30.9, Mean Corpuscular Hemoglobin Concent 33.2, Red Cell Distribution Width 14.4, Platelet Count 197, Mean Platelet Volume 7.2, Neutrophils (%) (Auto) , Lymphocytes (%) ( Auto) , Monocytes (%) (Auto) , Eosinophils (%) (Auto) , Basophils (%) (Auto) , Differential Total Cells Counted 100, Neutrophils % (Manual) 86H, Lymphocytes % (Manual) 7L, Monocytes % (Manual) 7, Eosinophils % (Manual) 0, Basophils % ( Manual) 0, Band Neutrophils 0, Platelet Estimate Adequate, Platelet Morphology Normal, Hypochromasia 2+, Anisocytosis 1+, Arterial Blood pH 7.238*L, Arterial Blood Partial Pressure CO2 82.6*H, Arterial Blood Partial Pressure O2 91.8, Arterial Blood HCO3 34.3H, Arterial Blood Oxygen Saturation 96.2, Arterial Blood Base Excess 5.2H, Melecio Test Positive, Sodium Level 135L, Potassium Level 4.2, Chloride Level 96L, Carbon Dioxide Level 36H, Anion Gap 3L, Blood Urea Nitrogen 30H, Creatinine 2.4H, Estimat Glomerular Filtration Rate 27.9, Glucose Level 110H, Calcium Level 7.8L, Random Vancomycin Level 7.8 Height (Feet): 5 Height (Inches): 6.00 Weight (Pounds): 160 Objective General Appearance: other - intubated- proned Lines, tubes and drains: central line HEENT: normocephalic, atraumatic Respiratory/Chest: rhonchi - bilaterally Cardiovascular/Chest: other - tachycardic Extremities: pitting Dorian Soriano M.D. December 21, 2019 12:06
--- NOTE | 2019-12-21 12:17 | Diagnostic Imaging Report ---
EXAM: XR Chest, 1 View CLINICAL HISTORY: ABN CHST TECHNIQUE: Frontal view of the chest. COMPARISON: Chest radiograph on 12/20/2019 FINDINGS: Hardware: Endotracheal tube terminates in the region of the mid thoracic trachea. Enteric tube courses past the diaphragm and out of the [id number]. Lungs/pleura: Similar extensive patchy opacities throughout the lungs. Heart/mediastinum: Normal. No cardiomegaly. Soft tissues: Unremarkable. Bones: No acute fracture. Upper abdomen: Normal. Other: Artifact overlying the chest. IMPRESSION: 1. Endotracheal tube terminates in the region of the mid thoracic trachea. Enteric tube courses past the diaphragm and out of the field-of- view. 2. Similar extensive patchy opacities throughout the lungs.
[2019-12-21] MEDS ORDERED: Vancomycin 1.5gm/NS Premix 275 ML IVPB SCH (12:30)
--- NOTE | 2019-12-21 13:30 | NUR ---
NURSE NOTES: Dr Cortes here to see the patient. Updated him with pt's current condition including ABG result and the current vent setting. Order to changed the vent setting entered by Dr Cortes. Notified RT. Addendum: 12/21/19 at 1356 by MARIELA CASTANEDA RN RN Wrong time -> 1200 Addendum: 12/21/19 at 1402 by MARIELA CASTANEDA RN RN NURSE NOTES: Called [facility] for HD order for today. Dialysis nurse, Hari, called back and stated that she will come between 2:30 and 3:30PM today.
--- NOTE | 2019-12-21 14:00 | NUR ---
NURSE NOTES: Dr Noriega here to see the patient. Updated her with pt's current condition. No new orders.
--- NOTE | 2019-12-21 15:00 | NUR ---
NURSE NOTES: Dialysis started at bedside. BP 124/55. Pt is on Levophed at 10mcg/min. Will keep the rate for HD for now.
--- NOTE | 2019-12-21 16:02 | Cardiac Electrophysiology PN ---
Assessment/Plan Assessment/Plan 1. Atrial fib with RVR 170 before intubation on 12/04/19. Converted to Sinus tach Troponin 0.77. No further atrial fib. In SR 2. Sinus Tachycardia due to respiratory failure and COVID-19 pneumonia. On IV antibiotic per ID. Echo pending COVID. 3. Septic shock. On Levophed 10 Mcg, Midodrine 10 tid and iv Abx. 4. Respiratory failure, on the Vent by Dr. Cortes. 65% Fio2, PEEP 5 5. Acute renal failure. On HD per Dr. Sanchez via RFV [place] 6. Full code DW RN Subjective Subjective Intubated in ICU on 65% Fio2 and PEEP 5 on Levo 10 mcg, Fentanyl and Versed drip. Objective Last 24 Hour Vital Signs Date Time Temp Pulse Resp B/P (MAP) Pulse Ox O2 Delivery O2 Flow Rate FiO2 12/21/19 15:08 105 35 65 12/21/19 15:00 105 28 124/55 (78) 91 12/21/19 14:15 103 28 118/60 (79) 100 12/21/19 14:00 29 Mechanical Ventilator 65 12/21/19 14:00 118/57 12/21/19 14:00 29 65 12/21/19 14:00 101 29 118/57 (77) 100 12/21/19 13:45 104 29 121/60 (80) 100 12/21/19 13:30 104 29 122/66 (84) 100 12/21/19 13:30 65 12/21/19 13:15 102 30 132/61 (84) 100 12/21/19 13:14 28 Mechanical Ventilator 80 12/21/19 13:00 100 29 144/70 (94) 100 12/21/19 13:00 30 Mechanical Ventilator 65 12/21/19 13:00 144/70 12/21/19 13:00 30 Mechanical Ventilator 65 12/21/19 12:45 102 30 151/74 (99) 100 12/21/19 12:45 151/74 12/21/19 12:30 98.7 105 29 159/75 (103) 100 12/21/19 12:08 97/56 12/21/19 12:00 Mechanical Ventilator 12/21/19 12:00 30 Mechanical Ventilator 80 12/21/19 12:00 97/56 12/21/19 12:00 30 80 12/21/19 12:00 114 12/21/19 12:00 114 30 97/56 (70) 100 12/21/19 12:00 80 12/21/19 11:33 103 30 119/58 (78) 100 12/21/19 11:30 99 29 119/58 (78) 100 12/21/19 11:03 98 29 80 12/21/19 11:01 99 30 127/66 (86) 100 12/21/19 11:00 29 Mechanical Ventilator 80 12/21/19 11:00 122/67 12/21/19 11:00 29 Mechanical Ventilator 80 12/21/19 10:30 100 29 125/64 (84) 100 12/21/19 10:00 101 30 133/65 (87) 100 12/21/19 10:00 31 Mechanical Ventilator 80 12/21/19 10:00 131/65 12/21/19 10:00 31 Mechanical Ventilator 80 12/21/19 09:30 99 31 128/68 (88) 100 12/21/19 09:00 31 Mechanical Ventilator 80 12/21/19 09:00 135/67 12/21/19 09:00 31 80 12/21/19 09:00 100 31 131/69 (89) 100 12/21/19 08:30 101 33 131/72 (91) 100 12/21/19 08:00 99 12/21/19 08:00 Mechanical Ventilator 12/21/19 08:00 34 Mechanical Ventilator 80 12/21/19 08:00 133/64 12/21/19 08:00 34 100 12/21/19 08:00 80 12/21/19 08:00 98.6 100 33 130/62 (84) 100 12/21/19 07:34 100 12/21/19 07:30 101 33 134/65 (88) 100 12/21/19 07:01 100 34 80 12/21/19 07:00 32 Mechanical Ventilator 80 12/21/19 07:00 130/69 12/21/19 07:00 32 Mechanical Ventilator 80 12/21/19 07:00 99 32 131/68 (89) 100 12/21/19 06:30 100 30 126/68 (87) 100 12/21/19 06:00 101 29 123/64 (83) 100 12/21/19 06:00 29 Mechanical Ventilator 80 12/21/19 06:00 123/64 12/21/19 06:00 29 Mechanical Ventilator 80 12/21/19 05:30 100 28 125/61 (82) 100 12/21/19 05:00 97 27 128/65 (86) 100 12/21/19 05:00 27 Mechanical Ventilator 80 12/21/19 05:00 128/65 12/21/19 05:00 27 Mechanical Ventilator 80 12/21/19 04:58 27 Mechanical Ventilator 80 12/21/19 04:30 94 26 118/57 (77) 100 12/21/19 04:00 Mechanical Ventilator 12/21/19 04:00 98.4 93 24 120/59 (79) 100 12/21/19 04:00 24 Mechanical Ventilator 80 12/21/19 04:00 120/59 12/21/19 04:00 24 Mechanical Ventilator 80 12/21/19 04:00 93 12/21/19 04:00 80 12/21/19 03:30 94 26 117/58 (77) 100 12/21/19 03:10 89 30 80 12/21/19 03:00 21 Mechanical Ventilator 80 12/21/19 03:00 113/60 12/21/19 03:00 21 Mechanical Ventilator 80 12/21/19 03:00 91 21 113/60 (77) 100 12/21/19 02:30 90 24 115/57 (76) 100 12/21/19 02:12 115/59 12/21/19 02:00 23 Mechanical Ventilator 80 12/21/19 02:00 115/59 12/21/19 02:00 23 Mechanical Ventilator 80 12/21/19 02:00 88 23 115/59 (77) 100 12/21/19 01:30 88 23 115/60 (78) 100 12/21/19 01:00 22 Mechanical Ventilator 80 12/21/19 01:00 115/58 12/21/19 01:00 22 Mechanical Ventilator 80 12/21/19 01:00 89 22 115/58 (77) 100 12/21/19 00:30 88 23 116/60 (78) 100 12/21/19 00:00 98.8 92 22 121/61 (81) 100 12/21/19 00:00 Mechanical Ventilator 12/21/19 00:00 20 Mechanical Ventilator 80 12/21/19 00:00 121/61 12/21/19 00:00 20 80 12/21/19 00:00 92 12/20/19 23:45 94 25 129/56 (80) 100 12/20/19 23:30 96 26 124/60 (81) 100 12/20/19 23:22 106 33 80 12/20/19 23:15 101 23 122/60 (80) 100 12/20/19 23:00 20 Mechanical Ventilator 80 12/20/19 23:00 122/60 12/20/19 23:00 20 80 12/20/19 23:00 102 31 116/62 (80) 100 12/20/19 22:45 106 29 123/61 (81) 100 12/20/19 22:30 109 30 111/62 (78) 100 12/20/19 22:00 104 27 128/61 (83) 100 12/20/19 22:00 27 Mechanical Ventilator 80 12/20/19 22:00 128/61 12/20/19 22:00 27 Mechanical Ventilator 80 12/20/19 21:30 100 27 119/65 (83) 100 12/20/19 21:00 25 Mechanical Ventilator 80 12/20/19 21:00 125/66 12/20/19 21:00 25 Mechanical Ventilator 80 12/20/19 21:00 90 25 125/66 (85) 100 12/20/19 20:30 88 30 129/67 (87) 100 12/20/19 20:00 80 12/20/19 20:00 Mechanical Ventilator 12/20/19 20:00 28 Mechanical Ventilator 80 12/20/19 20:00 131/67 12/20/19 20:00 28 Mechanical Ventilator 80 12/20/19 20:00 98.9 86 28 131/67 (88) 100 12/20/19 20:00 100 12/20/19 19:30 84 30 133/66 (88) 98 12/20/19 19:24 93 34 80 12/20/19 19:00 89 33 131/64 (86) 99 12/20/19 19:00 24 Mechanical Ventilator 80 12/20/19 19:00 131/64 12/20/19 19:00 26 Mechanical Ventilator 80 12/20/19 18:30 94 33 131/62 (85) 97 12/20/19 18:00 26 Mechanical Ventilator 80 12/20/19 18:00 123/59 12/20/19 18:00 24 Mechanical Ventilator 80 12/20/19 18:00 98 33 128/55 (79) 96 12/20/19 17:51 99.0 12/20/19 17:30 95 31 120/54 (76) 99 12/20/19 17:21 29 Mechanical Ventilator 15.0 80 12/20/19 17:00 91 33 127/59 (81) 99 12/20/19 17:00 26 Mechanical Ventilator 80 12/20/19 17:00 116/52 12/20/19 17:00 26 Mechanical Ventilator 80 12/20/19 16:39 91 32 80 12/20/19 16:32 117/51 12/20/19 16:30 89 30 113/53 (73) 100 Intake and Output 12/20/19 12/21/19 19:00 07:00 Intake Total 1076.875 ml 1260.00 ml Output Total 0 ml 2105 ml Balance 1076.875 ml -845.00 ml Free Water 180 ml 160 ml IV Total 476.875 ml 680.00 ml Tube Feeding 420 ml 420 ml Output Urine Total 0 ml 5 ml Stool Total 100 ml Hemodialysis UF 2000 ml Laboratory Tests Test 12/21/19 04:00 White Blood Count 28.2 K/UL (4.8-10.8) *H Red Blood Count 3.06 M/UL (4.70-6.10) L Hemoglobin 9.5 G/DL (14.2-18.0) L Hematocrit 28.5 % (42.0-52.0) L Mean Corpuscular Volume 93 FL (80-99) Mean Corpuscular Hemoglobin 30.9 PG (27.0-31.0) Mean Corpuscular Hemoglobin Concent 33.2 G/DL (32.0-36.0) Red Cell Distribution Width 14.4 % (11.6-14.8) Platelet Count 197 K/UL (150-450) Mean Platelet Volume 7.2 FL (6.5-10.1) Neutrophils (%) (Auto) % (45.0-75.0) Lymphocytes (%) (Auto) % (20.0-45.0) Monocytes (%) (Auto) % (1.0-10.0) Eosinophils (%) (Auto) % (0.0-3.0) Basophils (%) (Auto) % (0.0-2.0) Differential Total Cells Counted 100 Neutrophils % (Manual) 86 % (45-75) H Lymphocytes % (Manual) 7 % (20-45) L Monocytes % (Manual) 7 % (1-10) Eosinophils % (Manual) 0 % (0-3) Basophils % (Manual) 0 % (0-2) Band Neutrophils 0 % (0-8) Platelet Estimate Adequate Platelet Morphology Normal Hypochromasia 2+ Anisocytosis 1+ Arterial Blood pH 7.238 (7.350-7.450) Arterial Blood Partial Pressure CO2 82.6 mmHg (35.0-45.0) *H Arterial Blood Partial Pressure O2 91.8 mmHg (75.0-100.0) Arterial Blood HCO3 34.3 mmol/L (22.0-26.0) H Arterial Blood Oxygen Saturation 96.2 % (95-100) Arterial Blood Base Excess 5.2 (-2-2) H Melecio Test Positive Sodium Level 135 MMOL/L (136-145) L Potassium Level 4.2 MMOL/L (3.5-5.1) Chloride Level 96 MMOL/L (98-107) L Carbon Dioxide Level 36 MMOL/L (21-32) H Anion Gap 3 mmol/L (5-15) L Blood Urea Nitrogen 30 mg/dL (7-18) H Creatinine 2.4 MG/DL (0.55-1.30) H Estimat Glomerular Filtration Rate 27.9 mL/min (>60) Glucose Level 110 MG/DL (74-106) H Calcium Level 7.8 MG/DL (8.5-10.1) L Random Vancomycin Level 7.8 ug/mL Objective HEAD AND NECK: Orally intubated No JVD LUNGS: Decreased breath sounds. Coarse rhonchi. CARDIOVASCULAR: Tachycardic S1 and S2 with no gallop. ABDOMEN: Soft. EXTREMITIES: 1 plus pitting edema. RFV [place] in place Raul Appiah MD December 21, 2019 16:02
--- NOTE | 2019-12-21 16:49 | GI Progress Note ---
Assessment/Plan Problems: (1) Suspected COVID-19 virus infection ICD Codes: R68.89 - Other general symptoms and signs SNOMED: 294048059 (2) Elevated LFTs ICD Codes: R79.89 - Other specified abnormal findings of blood chemistry SNOMED: 895208833, [id number] Status: unchanged Status Narrative Discussed with Dr. Rdz. Assessment/Plan NGTF rectal tube in place elevated LFTS most likely due to shock liver>>> improving repeat labs in am hepatitis panel>>>Neg fu nephrology recent labs and notes reviewed D/W the nurse The patient was seen and examined at bedside and all new and available data was reviewed in the patients chart. I agree with the above findings, impression and plan. (Patient seen earlier today. Signature stamp does not reflect patient encounter time.). - João Rdz MD Subjective Subjective limited Objective Last 24 Hour Vital Signs Date Time Temp Pulse Resp B/P (MAP) Pulse Ox O2 Delivery O2 Flow Rate FiO2 12/21/19 16:30 112 36 120/60 (80) 92 12/21/19 16:00 105 36 118/60 (79) 94 12/21/19 16:00 Mechanical Ventilator 12/21/19 16:00 112 12/21/19 15:30 108 36 100/49 (66) 93 12/21/19 15:08 105 35 65 12/21/19 15:00 105 28 124/55 (78) 91 12/21/19 14:15 103 28 118/60 (79) 100 12/21/19 14:00 29 Mechanical Ventilator 65 12/21/19 14:00 118/57 12/21/19 14:00 29 65 12/21/19 14:00 101 29 118/57 (77) 100 12/21/19 13:45 104 29 121/60 (80) 100 12/21/19 13:30 104 29 122/66 (84) 100 12/21/19 13:30 65 12/21/19 13:15 102 30 132/61 (84) 100 12/21/19 13:14 28 Mechanical Ventilator 80 12/21/19 13:00 100 29 144/70 (94) 100 12/21/19 13:00 30 Mechanical Ventilator 65 12/21/19 13:00 144/70 12/21/19 13:00 30 Mechanical Ventilator 65 12/21/19 12:45 102 30 151/74 (99) 100 12/21/19 12:45 151/74 12/21/19 12:30 98.7 105 29 159/75 (103) 100 12/21/19 12:08 97/56 12/21/19 12:00 Mechanical Ventilator 12/21/19 12:00 30 Mechanical Ventilator 80 12/21/19 12:00 97/56 12/21/19 12:00 30 80 12/21/19 12:00 114 12/21/19 12:00 114 30 97/56 (70) 100 12/21/19 12:00 80 12/21/19 11:33 103 30 119/58 (78) 100 12/21/19 11:30 99 29 119/58 (78) 100 12/21/19 11:03 98 29 80 12/21/19 11:01 99 30 127/66 (86) 100 12/21/19 11:00 29 Mechanical Ventilator 80 12/21/19 11:00 122/67 12/21/19 11:00 29 Mechanical Ventilator 80 12/21/19 10:30 100 29 125/64 (84) 100 12/21/19 10:00 101 30 133/65 (87) 100 12/21/19 10:00 31 Mechanical Ventilator 80 12/21/19 10:00 131/65 12/21/19 10:00 31 Mechanical Ventilator 80 12/21/19 09:30 99 31 128/68 (88) 100 12/21/19 09:00 31 Mechanical Ventilator 80 12/21/19 09:00 135/67 12/21/19 09:00 31 80 12/21/19 09:00 100 31 131/69 (89) 100 12/21/19 08:30 101 33 131/72 (91) 100 12/21/19 08:00 99 12/21/19 08:00 Mechanical Ventilator 12/21/19 08:00 34 Mechanical Ventilator 80 12/21/19 08:00 133/64 12/21/19 08:00 34 100 12/21/19 08:00 80 12/21/19 08:00 98.6 100 33 130/62 (84) 100 12/21/19 07:34 100 12/21/19 07:30 101 33 134/65 (88) 100 12/21/19 07:01 100 34 80 12/21/19 07:00 32 Mechanical Ventilator 80 12/21/19 07:00 130/69 12/21/19 07:00 32 Mechanical Ventilator 80 12/21/19 07:00 99 32 131/68 (89) 100 12/21/19 06:30 100 30 126/68 (87) 100 12/21/19 06:00 101 29 123/64 (83) 100 12/21/19 06:00 29 Mechanical Ventilator 80 12/21/19 06:00 123/64 12/21/19 06:00 29 Mechanical Ventilator 80 12/21/19 05:30 100 28 125/61 (82) 100 12/21/19 05:00 97 27 128/65 (86) 100 12/21/19 05:00 27 Mechanical Ventilator 80 12/21/19 05:00 128/65 12/21/19 05:00 27 Mechanical Ventilator 80 12/21/19 04:58 27 Mechanical Ventilator 80 12/21/19 04:30 94 26 118/57 (77) 100 12/21/19 04:00 Mechanical Ventilator 12/21/19 04:00 98.4 93 24 120/59 (79) 100 12/21/19 04:00 24 Mechanical Ventilator 80 12/21/19 04:00 120/59 12/21/19 04:00 24 Mechanical Ventilator 80 12/21/19 04:00 93 12/21/19 04:00 80 12/21/19 03:30 94 26 117/58 (77) 100 12/21/19 03:10 89 30 80 12/21/19 03:00 21 Mechanical Ventilator 80 12/21/19 03:00 113/60 12/21/19 03:00 21 Mechanical Ventilator 80 12/21/19 03:00 91 21 113/60 (77) 100 12/21/19 02:30 90 24 115/57 (76) 100 12/21/19 02:12 115/59 12/21/19 02:00 23 Mechanical Ventilator 80 12/21/19 02:00 115/59 12/21/19 02:00 23 Mechanical Ventilator 80 12/21/19 02:00 88 23 115/59 (77) 100 12/21/19 01:30 88 23 115/60 (78) 100 12/21/19 01:00 22 Mechanical Ventilator 80 12/21/19 01:00 115/58 12/21/19 01:00 22 Mechanical Ventilator 80 12/21/19 01:00 89 22 115/58 (77) 100 12/21/19 00:30 88 23 116/60 (78) 100 12/21/19 00:00 98.8 92 22 121/61 (81) 100 12/21/19 00:00 Mechanical Ventilator 12/21/19 00:00 20 Mechanical Ventilator 80 12/21/19 00:00 121/61 12/21/19 00:00 20 80 12/21/19 00:00 92 12/20/19 23:45 94 25 129/56 (80) 100 12/20/19 23:30 96 26 124/60 (81) 100 12/20/19 23:22 106 33 80 12/20/19 23:15 101 23 122/60 (80) 100 12/20/19 23:00 20 Mechanical Ventilator 80 12/20/19 23:00 122/60 12/20/19 23:00 20 80 12/20/19 23:00 102 31 116/62 (80) 100 12/20/19 22:45 106 29 123/61 (81) 100 12/20/19 22:30 109 30 111/62 (78) 100 12/20/19 22:00 104 27 128/61 (83) 100 12/20/19 22:00 27 Mechanical Ventilator 80 12/20/19 22:00 128/61 12/20/19 22:00 27 Mechanical Ventilator 80 12/20/19 21:30 100 27 119/65 (83) 100 12/20/19 21:00 25 Mechanical Ventilator 80 12/20/19 21:00 125/66 12/20/19 21:00 25 Mechanical Ventilator 80 12/20/19 21:00 90 25 125/66 (85) 100 12/20/19 20:30 88 30 129/67 (87) 100 12/20/19 20:00 80 12/20/19 20:00 Mechanical Ventilator 12/20/19 20:00 28 Mechanical Ventilator 80 12/20/19 20:00 131/67 12/20/19 20:00 28 Mechanical Ventilator 80 12/20/19 20:00 98.9 86 28 131/67 (88) 100 12/20/19 20:00 100 12/20/19 19:30 84 30 133/66 (88) 98 12/20/19 19:24 93 34 80 12/20/19 19:00 89 33 131/64 (86) 99 12/20/19 19:00 24 Mechanical Ventilator 80 12/20/19 19:00 131/64 12/20/19 19:00 26 Mechanical Ventilator 80 12/20/19 18:30 94 33 131/62 (85) 97 12/20/19 18:00 26 Mechanical Ventilator 80 12/20/19 18:00 123/59 12/20/19 18:00 24 Mechanical Ventilator 80 12/20/19 18:00 98 33 128/55 (79) 96 12/20/19 17:51 99.0 12/20/19 17:30 95 31 120/54 (76) 99 12/20/19 17:21 29 Mechanical Ventilator 15.0 80 12/20/19 17:00 91 33 127/59 (81) 99 12/20/19 17:00 26 Mechanical Ventilator 80 12/20/19 17:00 116/52 12/20/19 17:00 26 Mechanical Ventilator 80 Intake and Output 12/20/19 12/21/19 19:00 07:00 Intake Total 1076.875 ml 1260.00 ml Output Total 0 ml 2105 ml Balance 1076.875 ml -845.00 ml Free Water 180 ml 160 ml IV Total 476.875 ml 680.00 ml Tube Feeding 420 ml 420 ml Output Urine Total 0 ml 5 ml Stool Total 100 ml Hemodialysis UF 2000 ml Laboratory Tests Test 12/21/19 04:00 White Blood Count 28.2 K/UL (4.8-10.8) *H Red Blood Count 3.06 M/UL (4.70-6.10) L Hemoglobin 9.5 G/DL (14.2-18.0) L Hematocrit 28.5 % (42.0-52.0) L Mean Corpuscular Volume 93 FL (80-99) Mean Corpuscular Hemoglobin 30.9 PG (27.0-31.0) Mean Corpuscular Hemoglobin Concent 33.2 G/DL (32.0-36.0) Red Cell Distribution Width 14.4 % (11.6-14.8) Platelet Count 197 K/UL (150-450) Mean Platelet Volume 7.2 FL (6.5-10.1) Neutrophils (%) (Auto) % (45.0-75.0) Lymphocytes (%) (Auto) % (20.0-45.0) Monocytes (%) (Auto) % (1.0-10.0) Eosinophils (%) (Auto) % (0.0-3.0) Basophils (%) (Auto) % (0.0-2.0) Differential Total Cells Counted 100 Neutrophils % (Manual) 86 % (45-75) H Lymphocytes % (Manual) 7 % (20-45) L Monocytes % (Manual) 7 % (1-10) Eosinophils % (Manual) 0 % (0-3) Basophils % (Manual) 0 % (0-2) Band Neutrophils 0 % (0-8) Platelet Estimate Adequate Platelet Morphology Normal Hypochromasia 2+ Anisocytosis 1+ Arterial Blood pH 7.238 (7.350-7.450) Arterial Blood Partial Pressure CO2 82.6 mmHg (35.0-45.0) *H Arterial Blood Partial Pressure O2 91.8 mmHg (75.0-100.0) Arterial Blood HCO3 34.3 mmol/L (22.0-26.0) H Arterial Blood Oxygen Saturation 96.2 % (95-100) Arterial Blood Base Excess 5.2 (-2-2) H Melecio Test Positive Sodium Level 135 MMOL/L (136-145) L Potassium Level 4.2 MMOL/L (3.5-5.1) Chloride Level 96 MMOL/L (98-107) L Carbon Dioxide Level 36 MMOL/L (21-32) H Anion Gap 3 mmol/L (5-15) L Blood Urea Nitrogen 30 mg/dL (7-18) H Creatinine 2.4 MG/DL (0.55-1.30) H Estimat Glomerular Filtration Rate 27.9 mL/min (>60) Glucose Level 110 MG/DL (74-106) H Calcium Level 7.8 MG/DL (8.5-10.1) L Random Vancomycin Level 7.8 ug/mL Height (Feet): 5 Height (Inches): 6.00 Weight (Pounds): 160 General Appearance: no apparent distress Cardiovascular: normal rate Abdominal Exam: soft Ronda Gordillo NP December 21, 2019 16:49
--- NOTE | 2019-12-21 17:07 | General Progress Note ---
Assessment/Plan Status: unchanged Assessment/Plan: . ASSESSMENT RESP/ID #Acute Hypoxic Respiratory Failure 2/2 COVID +, HCAP + #Septic Shock #PTX/Pneumomediastinum--> to high risk for intervention Appreciate Pulm/ID --> Vent Management Fentanyl for Sedation 2/2 elevated TG Pressor support, maintain MAP > 65 ABG per pulm Patient is s/p IL-6 inhibitor and Plaquenil Trend predictive markers Q3 days; CRP, Pro-Calcitonin, Ferritin, Ddimer Monitor Ddimer, if 10X upper limit, consider AC for embolic prevention Continue Broad Spectrum AB per ID, Cx per ID (currently on meropenem, vancomycin , fluconazole) Surgery to monitor PTX NEPHRO #ARF now on HD Continue HD per Nephro, last HD 12/20 GI #Shock Liver Appreciate GI recs Liver enzymes also likely elevated 2/2 COVID + state CV #Tachcyardia, s/p AFib now converted to sinus Appreciate Cardio management PLAN Continue AB per ID, HD per nephro, Vent management per Pulm. Obtain AM Ddimer, LDH, Ferritin, CRP to monitor inflammatory response and disease course. DVT/GI ppx, Tube Feeding, FULL CODE Subjective Date patient seen: December 21, 2019 Time patient seen: 12:00 Allergies: Coded Allergies: No Known Allergies (Unverified , 11/29/19) Subjective Patient remains intubated and sedated; currently on levophed, fentanyl, versed. Tx ongoing for COVID w/ Acute hypoxic Resp Failure, along w/ multiorgan failure. WBC is still very elevated. Fi02 now at 70%. HD today Objective Last 24 Hour Vital Signs Date Time Temp Pulse Resp B/P (MAP) Pulse Ox O2 Delivery O2 Flow Rate FiO2 12/21/19 16:30 112 36 120/60 (80) 92 12/21/19 16:00 105 36 118/60 (79) 94 12/21/19 16:00 Mechanical Ventilator 12/21/19 16:00 112 12/21/19 15:30 108 36 100/49 (66) 93 12/21/19 15:08 105 35 65 12/21/19 15:00 105 28 124/55 (78) 91 12/21/19 14:15 103 28 118/60 (79) 100 12/21/19 14:00 29 Mechanical Ventilator 65 12/21/19 14:00 118/57 12/21/19 14:00 29 65 12/21/19 14:00 101 29 118/57 (77) 100 12/21/19 13:45 104 29 121/60 (80) 100 12/21/19 13:30 104 29 122/66 (84) 100 12/21/19 13:30 65 12/21/19 13:15 102 30 132/61 (84) 100 12/21/19 13:14 28 Mechanical Ventilator 80 12/21/19 13:00 100 29 144/70 (94) 100 12/21/19 13:00 30 Mechanical Ventilator 65 12/21/19 13:00 144/70 12/21/19 13:00 30 Mechanical Ventilator 65 12/21/19 12:45 102 30 151/74 (99) 100 12/21/19 12:45 151/74 12/21/19 12:30 98.7 105 29 159/75 (103) 100 12/21/19 12:08 97/56 12/21/19 12:00 Mechanical Ventilator 12/21/19 12:00 30 Mechanical Ventilator 80 12/21/19 12:00 97/56 12/21/19 12:00 30 80 12/21/19 12:00 114 12/21/19 12:00 114 30 97/56 (70) 100 12/21/19 12:00 80 12/21/19 11:33 103 30 119/58 (78) 100 12/21/19 11:30 99 29 119/58 (78) 100 12/21/19 11:03 98 29 80 12/21/19 11:01 99 30 127/66 (86) 100 12/21/19 11:00 29 Mechanical Ventilator 80 12/21/19 11:00 122/67 12/21/19 11:00 29 Mechanical Ventilator 80 12/21/19 10:30 100 29 125/64 (84) 100 12/21/19 10:00 101 30 133/65 (87) 100 12/21/19 10:00 31 Mechanical Ventilator 80 12/21/19 10:00 131/65 12/21/19 10:00 31 Mechanical Ventilator 80 12/21/19 09:30 99 31 128/68 (88) 100 12/21/19 09:00 31 Mechanical Ventilator 80 12/21/19 09:00 135/67 12/21/19 09:00 31 80 5/9/20 09:00 100 31 131/69 (89) 100 12/21/19 08:30 101 33 131/72 (91) 100 12/21/19 08:00 99 12/21/19 08:00 Mechanical Ventilator 12/21/19 08:00 34 Mechanical Ventilator 80 12/21/19 08:00 133/64 12/21/19 08:00 34 100 12/21/19 08:00 80 12/21/19 08:00 98.6 100 33 130/62 (84) 100 12/21/19 07:34 100 12/21/19 07:30 101 33 134/65 (88) 100 12/21/19 07:01 100 34 80 12/21/19 07:00 32 Mechanical Ventilator 80 12/21/19 07:00 130/69 12/21/19 07:00 32 Mechanical Ventilator 80 12/21/19 07:00 99 32 131/68 (89) 100 12/21/19 06:30 100 30 126/68 (87) 100 12/21/19 06:00 101 29 123/64 (83) 100 12/21/19 06:00 29 Mechanical Ventilator 80 12/21/19 06:00 123/64 12/21/19 06:00 29 Mechanical Ventilator 80 12/21/19 05:30 100 28 125/61 (82) 100 12/21/19 05:00 97 27 128/65 (86) 100 12/21/19 05:00 27 Mechanical Ventilator 80 12/21/19 05:00 128/65 12/21/19 05:00 27 Mechanical Ventilator 80 12/21/19 04:58 27 Mechanical Ventilator 80 12/21/19 04:30 94 26 118/57 (77) 100 12/21/19 04:00 Mechanical Ventilator 12/21/19 04:00 98.4 93 24 120/59 (79) 100 12/21/19 04:00 24 Mechanical Ventilator 80 12/21/19 04:00 120/59 12/21/19 04:00 24 Mechanical Ventilator 80 12/21/19 04:00 93 12/21/19 04:00 80 12/21/19 03:30 94 26 117/58 (77) 100 12/21/19 03:10 89 30 80 12/21/19 03:00 21 Mechanical Ventilator 80 12/21/19 03:00 113/60 12/21/19 03:00 21 Mechanical Ventilator 80 12/21/19 03:00 91 21 113/60 (77) 100 12/21/19 02:30 90 24 115/57 (76) 100 12/21/19 02:12 115/59 12/21/19 02:00 23 Mechanical Ventilator 80 12/21/19 02:00 115/59 12/21/19 02:00 23 Mechanical Ventilator 80 12/21/19 02:00 88 23 115/59 (77) 100 12/21/19 01:30 88 23 115/60 (78) 100 12/21/19 01:00 22 Mechanical Ventilator 80 12/21/19 01:00 115/58 12/21/19 01:00 22 Mechanical Ventilator 80 12/21/19 01:00 89 22 115/58 (77) 100 12/21/19 00:30 88 23 116/60 (78) 100 12/21/19 00:00 98.8 92 22 121/61 (81) 100 12/21/19 00:00 Mechanical Ventilator 12/21/19 00:00 20 Mechanical Ventilator 80 12/21/19 00:00 121/61 12/21/19 00:00 20 80 12/21/19 00:00 92 12/20/19 23:45 94 25 129/56 (80) 100 12/20/19 23:30 96 26 124/60 (81) 100 12/20/19 23:22 106 33 80 12/20/19 23:15 101 23 122/60 (80) 100 12/20/19 23:00 20 Mechanical Ventilator 80 12/20/19 23:00 122/60 12/20/19 23:00 20 80 12/20/19 23:00 102 31 116/62 (80) 100 12/20/19 22:45 106 29 123/61 (81) 100 12/20/19 22:30 109 30 111/62 (78) 100 12/20/19 22:00 104 27 128/61 (83) 100 12/20/19 22:00 27 Mechanical Ventilator 80 12/20/19 22:00 128/61 12/20/19 22:00 27 Mechanical Ventilator 80 12/20/19 21:30 100 27 119/65 (83) 100 5/8/20 21:00 25 Mechanical Ventilator 80 12/20/19 21:00 125/66 12/20/19 21:00 25 Mechanical Ventilator 80 12/20/19 21:00 90 25 125/66 (85) 100 12/20/19 20:30 88 30 129/67 (87) 100 12/20/19 20:00 80 12/20/19 20:00 Mechanical Ventilator 12/20/19 20:00 28 Mechanical Ventilator 80 12/20/19 20:00 131/67 12/20/19 20:00 28 Mechanical Ventilator 80 12/20/19 20:00 98.9 86 28 131/67 (88) 100 12/20/19 20:00 100 12/20/19 19:30 84 30 133/66 (88) 98 12/20/19 19:24 93 34 80 12/20/19 19:00 89 33 131/64 (86) 99 12/20/19 19:00 24 Mechanical Ventilator 80 12/20/19 19:00 131/64 12/20/19 19:00 26 Mechanical Ventilator 80 12/20/19 18:30 94 33 131/62 (85) 97 12/20/19 18:00 26 Mechanical Ventilator 80 12/20/19 18:00 123/59 12/20/19 18:00 24 Mechanical Ventilator 80 12/20/19 18:00 98 33 128/55 (79) 96 12/20/19 17:51 99.0 12/20/19 17:30 95 31 120/54 (76) 99 12/20/19 17:21 29 Mechanical Ventilator 15.0 80 Intake and Output 12/20/19 12/21/19 19:00 07:00 Intake Total 1076.875 ml 1260.00 ml Output Total 0 ml 2105 ml Balance 1076.875 ml -845.00 ml Free Water 180 ml 160 ml IV Total 476.875 ml 680.00 ml Tube Feeding 420 ml 420 ml Output Urine Total 0 ml 5 ml Stool Total 100 ml Hemodialysis UF 2000 ml Laboratory Tests 12/21/19 04:00: White Blood Count 28.2*H, Red Blood Count 3.06L, Hemoglobin 9.5L, Hematocrit 28.5L, Mean Corpuscular Volume 93, Mean Corpuscular Hemoglobin 30.9, Mean Corpuscular Hemoglobin Concent 33.2, Red Cell Distribution Width 14.4, Platelet Count 197, Mean Platelet Volume 7.2, Neutrophils (%) (Auto) , Lymphocytes (%) ( Auto) , Monocytes (%) (Auto) , Eosinophils (%) (Auto) , Basophils (%) (Auto) , Differential Total Cells Counted 100, Neutrophils % (Manual) 86H, Lymphocytes % (Manual) 7L, Monocytes % (Manual) 7, Eosinophils % (Manual) 0, Basophils % ( Manual) 0, Band Neutrophils 0, Platelet Estimate Adequate, Platelet Morphology Normal, Hypochromasia 2+, Anisocytosis 1+, Arterial Blood pH 7.238*L, Arterial Blood Partial Pressure CO2 82.6*H, Arterial Blood Partial Pressure O2 91.8, Arterial Blood HCO3 34.3H, Arterial Blood Oxygen Saturation 96.2, Arterial Blood Base Excess 5.2H, Melecio Test Positive, Sodium Level 135L, Potassium Level 4.2, Chloride Level 96L, Carbon Dioxide Level 36H, Anion Gap 3L, Blood Urea Nitrogen 30H, Creatinine 2.4H, Estimat Glomerular Filtration Rate 27.9, Glucose Level 110H, Calcium Level 7.8L, Random Vancomycin Level 7.8 Height (Feet): 5 Height (Inches): 6.00 Weight (Pounds): 160 Objective General Appearance: other - intubated, sedated, critical patient EENT: other - ET tube in place Cardiovascular: normal rate, regular rhythm, other - currently requiring pressor support Respiratory/Chest: other - Vented lung sounds Abdomen: soft, no organomegaly, other - NG tube Edema: 2+ Generalized Neurologic: other - sedated Talya Noriega D.O. December 21, 2019 17:07
[2019-12-21] MEDS ORDERED: Tubing IV Secondary IV ONE (17:45)
[2019-12-21] MEDS ORDERED: NS 275ml ONE ×2 (17:45→22:51)
--- NOTE | 2019-12-21 18:31 | NUR ---
NURSE NOTES: Pictures of facial wound taken and uploaded. New dressing applied on wound on bilateral cheeks. Pt is getting dialysis at bedside. HR 120's. BP 110/82. O2 sat 93%-98% on FiO2 65%.
--- NOTE | 2019-12-21 19:23 | NUR ---
HAND-OFF: Report given to Ortega Smith RN.
--- NOTE | 2019-12-21 19:30 | NUR ---
NURSE NOTES: Received report from Namita Strong RN. Upon visual inspection, patient presents in no acute distress. Patient sedated. Attached to monitor; vitals stable to baseline. Patient currently undergoing HD; HD nurse at bedside.
[2019-12-21] MEDS: Dyna-Hex 2% Top Sol 2oz TOPIC SCH (20:06)
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
--- NOTE | 2019-12-21 21:00 | NUR ---
NURSE NOTES: Patient completed HD. Per HD nurse, 2L output. Patient in bed with no acute distress. Vitals stable to baseline. ETT 8; 24cm at lipline; ac 20; tv 500; peep 5; fio2 65%. Pt tachypneic mid 30s.Left NGT noted 65 cm at the lip; flushed and patent; Nepro running at goal of 35cc/hr; no residual noted; flushed 100ml. Aspiration precautions observed; HOB raised >30 degrees. Right femoral Bismark noted; flushed and patent; levophed infusing at 10 mcg/min, versed at 5mg/hr and continued infusion with new bag of Fentanyl at 150mcg/hour. Right hand 20g IV noted; initiated IV ABX as prescribed. Joe and rectal tube intact and patent; no output. Axillary temp 99.6F. Airborne precautions observed. All safety measures met; side rails raised x3; bed locked at lowest position; bed alarm engaged on zone 2; call light within reach.
--- NOTE | 2019-12-21 23:00 | NUR ---
NURSE NOTES: Continued infusion with new bag of levophed through right femoral Bismark cath at 10 mcg/min. Administered antipyretics; temp 99.9F axillary.
[2019-12-21] MEDS: Acetaminophen 650mg/20.3ml NG PRN (23:27)
[2019-12-22] VITALS (48 sets, daily range): BP systolic 90–123; BP diastolic 46–61
--- NOTE | 2019-12-22 | NUR ---
NURSE NOTES: Provided patient with complete bed bath; changed linens and gown. Pressure wound noted to bilateral cheeks; dressing remains intact and unsoiled. Axillary temp 99.8F. Suctioned patient; provided oral care. Patient remains tachypneic 30s and desaturating; lowest 85%. Increased fio2 to 100%. Patient respirations and spo2 within normal limits. Repositioned for comfort; bilateral upper and lower extremities raised. Will continue to monitor.
--- NOTE | 2019-12-22 02:00 | NUR ---
NURSE NOTES: Upon visual inspection, patient resting in bed with no acute signs of distress. Vitals remains stable to baseline. Will continue to monitor.
[2019-12-22] MEDS: Acetaminophen 650mg/20.3ml NG PRN (03:49)
--- NOTE | 2019-12-22 04:00 | NUR ---
NURSE NOTES: AM labs drawn; sent down to lab. Bismark dressing remains intact; flushed and patent; no change to IV titrations. Antipyretics administered; temp 99.2F axillary.
[2019-12-22 06:15] LABS: HEMATOCRIT 28.2 % (42.0-52.0); MEAN CORPUSCULAR VOLUME 93 FL (80-99); PLATELET COUNT 255 K/UL (150-450); RED BLOOD COUNT 3.03 M/UL (4.70-6.10); RED CELL DISTRIBUTION WIDTH 14.7 % (11.6-14.8)
[2019-12-22 06:18] LABS: WHITE BLOOD COUNT 32.9 K/UL (4.8-10.8)
[2019-12-22 06:53] LABS: ALANINE AMINOTRANSFERASE 53 U/L (12-78); ALBUMIN 2.5 G/DL (3.4-5.0); ALBUMIN/GLOBULIN RATIO 0.5 (1.0-2.7); ALKALINE PHOSPHATASE 325 U/L (46-116); ANION GAP 7 mmol/L (5-15); ASPARTATE AMINO TRANSFERASE 62 U/L (15-37); BILIRUBIN,TOTAL 0.5 MG/DL (0.2-1.0); BLOOD UREA NITROGEN 31 mg/dL (7-18); CALCIUM 8.6 MG/DL (8.5-10.1); CARBON DIOXIDE 35 MMOL/L (21-32); CHLORIDE 97 MMOL/L (98-107); CREATININE 2.9 MG/DL (0.55-1.30); FERRITIN 769 NG/ML (8-388); POTASSIUM 3.8 MMOL/L (3.5-5.1); SODIUM 138 MMOL/L (136-145)
--- NOTE | 2019-12-22 07:10 | NUR ---
NURSE NOTES: Report received from Ortega Smith RN. Pt is lightly sedated in bed. Sinus tachy on night monitor with HR 110's.ETT 8.0/24cm at lip line. AC 20, TV 500, P 5, FiO2 100%. O2 sat 100%. Left NGT in place receiving Nepro at 35cc/hr. No residual noted. Joe in place draining to gravity. Rectal tube in place draining to gravity. Right femoral Bismark catheter for HD noted. IV to right hand G20 patent and asymptomatic. Pt is on Levophed at 10 mcg/min, Versed at 5 mg/hr, and Fentanyl at 150 mcg/hr. Bed in lowest position. Side rails up x3. Will resume plan of care.
[2019-12-22 07:26] LABS: CREATINE KINASE 372 U/L (26-308); LACTATE DEHYDROGENASE 436 U/L (81-234); PHOSPHORUS 6.4 MG/DL (2.5-4.9)
--- NOTE | 2019-12-22 08:00 | NUR ---
NURSE NOTES: Temp 99.2 orally. Turned and repositioned pt. Oral care done. Pt is lightly sedated with Versed at 5mg/hr and Fentanyl at 150mcg/hr. Will continue to monitor.
[2019-12-22] MEDS: Pantoprazole Inj IVP SCH (08:21)
[2019-12-22] MEDS: Midodrine 10mg tab ORAL SCH ×3 (08:21→17:05)
[2019-12-22] MEDS: Nephrovite tab (Rena-Vite) NG SCH (08:21)
--- NOTE | 2019-12-22 09:13 | Pulmonology Progress Note ---
Subjective ROS Limited/Unobtainable: Yes Interval Events: Intubated ;proning on hold due to facial decubitus Constitutional: Reports: no symptoms, other HEENT: Repors: no symptoms Respiratory: Reports: no symptoms Cardiovascular: Reports: no symptoms Genitourinary: Reports: no symptoms Psychiatric: Reports: other Skin: Denies: rash Musculoskeletal: Reports: other Allergies: Coded Allergies: No Known Allergies (Unverified , 11/29/19) All Systems: reviewed and negative except above Subjective On daily HD Objective Last 24 Hour Vital Signs Date Time Temp Pulse Resp B/P (MAP) Pulse Ox O2 Delivery O2 Flow Rate FiO2 12/22/19 07:30 112 23 97/54 (68) 100 12/22/19 07:00 111 22 65 12/22/19 07:00 21 Mechanical Ventilator 100 12/22/19 07:00 100/48 12/22/19 07:00 21 Mechanical Ventilator 100 12/22/19 07:00 111 21 100/48 (65) 100 12/22/19 06:30 109 22 100/47 (64) 100 12/22/19 06:00 22 Mechanical Ventilator 100 12/22/19 06:00 107/52 12/22/19 06:00 22 Mechanical Ventilator 100 12/22/19 06:00 105 22 107/52 (70) 100 12/22/19 05:30 106 23 95/49 (64) 100 12/22/19 05:00 25 Mechanical Ventilator 100 12/22/19 05:00 92/51 12/22/19 05:00 25 Mechanical Ventilator 100 12/22/19 05:00 108 25 92/51 (65) 100 12/22/19 04:30 98.9 110 25 90/50 (63) 100 12/22/19 04:19 98.9 12/22/19 04:00 100 12/22/19 04:00 29 Mechanical Ventilator 100 12/22/19 04:00 99/57 12/22/19 04:00 29 Mechanical Ventilator 100 12/22/19 04:00 113 12/22/19 04:00 Mechanical Ventilator 12/22/19 04:00 99.2 112 29 99/57 (71) 100 12/22/19 03:30 112 27 100/51 (67) 100 12/22/19 03:00 112 23 94/51 (65) 100 12/22/19 03:00 23 Mechanical Ventilator 100 12/22/19 03:00 94/51 12/22/19 03:00 23 Mechanical Ventilator 100 12/22/19 02:30 113 26 98/51 (67) 100 12/22/19 02:00 114 22 105/52 (69) 100 12/22/19 02:00 22 Mechanical Ventilator 100 12/22/19 02:00 105/52 12/22/19 02:00 22 Mechanical Ventilator 100 12/22/19 01:38 117 20 65 12/22/19 01:30 118 25 99/55 (70) 100 12/22/19 01:00 21 Mechanical Ventilator 100 12/22/19 01:00 102/55 12/22/19 01:00 21 Mechanical Ventilator 100 12/22/19 01:00 118 21 102/55 (71) 100 12/22/19 00:30 115 23 109/61 (77) 100 12/22/19 00:00 100 12/22/19 00:00 116 12/22/19 00:00 99.8 115 39 109/56 (73) 93 12/22/19 00:00 39 Mechanical Ventilator 100 12/22/19 00:00 109/59 12/22/19 00:00 39 Mechanical Ventilator 100 12/22/19 00:00 Mechanical Ventilator 12/21/19 23:30 115 39 109/57 (74) 95 12/21/19 23:28 103/56 12/21/19 23:00 99.9 115 38 103/56 (72) 95 12/21/19 22:42 118 40 65 12/21/19 22:30 111 22 94/53 (67) 95 12/21/19 22:00 118 38 116/59 (78) 94 12/21/19 22:00 38 Mechanical Ventilator 65 12/21/19 22:00 116/59 12/21/19 22:00 38 Mechanical Ventilator 65 12/21/19 21:30 119 40 111/55 (73) 95 12/21/19 21:09 38 Mechanical Ventilator 65 12/21/19 21:00 39 Mechanical Ventilator 65 12/21/19 21:00 104/57 12/21/19 21:00 39 Mechanical Ventilator 65 12/21/19 21:00 99.6 119 39 104/57 (73) 95 12/21/19 20:30 120 38 117/61 (79) 96 12/21/19 20:00 122 39 106/56 (73) 95 12/21/19 20:00 65 12/21/19 20:00 121 12/21/19 20:00 Mechanical Ventilator 12/21/19 20:00 39 Mechanical Ventilator 65 12/21/19 20:00 106/56 12/21/19 20:00 39 Mechanical Ventilator 65 12/21/19 19:30 122 38 117/61 (79) 95 12/21/19 19:06 122 38 65 12/21/19 19:00 125 38 107/64 (78) 93 12/21/19 19:00 36 Mechanical Ventilator 65 12/21/19 19:00 107/64 12/21/19 19:00 36 Mechanical Ventilator 65 12/21/19 18:30 119 38 119/63 (81) 98 12/21/19 18:00 38 Mechanical Ventilator 65 12/21/19 18:00 126/63 12/21/19 18:00 38 Mechanical Ventilator 65 12/21/19 18:00 118 38 126/63 (84) 93 12/21/19 17:30 119 38 127/63 (84) 91 12/21/19 17:00 37 Non-Rebreather 65 12/21/19 17:00 127/63 12/21/19 17:00 37 65 12/21/19 17:00 98.3 112 38 127/63 (84) 93 12/21/19 16:30 112 36 120/60 (80) 92 12/21/19 16:00 105 36 118/60 (79) 94 12/21/19 16:00 35 Mechanical Ventilator 65 12/21/19 16:00 118/60 12/21/19 16:00 35 Mechanical Ventilator 65 12/21/19 16:00 Mechanical Ventilator 12/21/19 16:00 112 12/21/19 15:30 108 36 100/49 (66) 93 12/21/19 15:08 105 35 65 12/21/19 15:00 105 28 124/55 (78) 91 12/21/19 15:00 34 Mechanical Ventilator 65 12/21/19 15:00 124/55 12/21/19 15:00 34 Mechanical Ventilator 65 12/21/19 14:15 103 28 118/60 (79) 100 12/21/19 14:00 29 Mechanical Ventilator 65 12/21/19 14:00 118/57 12/21/19 14:00 29 65 12/21/19 14:00 101 29 118/57 (77) 100 12/21/19 13:45 104 29 121/60 (80) 100 12/21/19 13:30 104 29 122/66 (84) 100 12/21/19 13:30 65 12/21/19 13:15 102 30 132/61 (84) 100 12/21/19 13:14 28 Mechanical Ventilator 80 12/21/19 13:00 100 29 144/70 (94) 100 12/21/19 13:00 30 Mechanical Ventilator 65 12/21/19 13:00 144/70 12/21/19 13:00 30 Mechanical Ventilator 65 12/21/19 12:45 102 30 151/74 (99) 100 12/21/19 12:45 151/74 12/21/19 12:30 98.7 105 29 159/75 (103) 100 12/21/19 12:08 97/56 12/21/19 12:00 Mechanical Ventilator 12/21/19 12:00 30 Mechanical Ventilator 80 12/21/19 12:00 97/56 12/21/19 12:00 30 80 12/21/19 12:00 114 12/21/19 12:00 114 30 97/56 (70) 100 12/21/19 12:00 80 12/21/19 11:33 103 30 119/58 (78) 100 12/21/19 11:30 99 29 119/58 (78) 100 12/21/19 11:03 98 29 80 12/21/19 11:01 99 30 127/66 (86) 100 12/21/19 11:00 29 Mechanical Ventilator 80 12/21/19 11:00 122/67 12/21/19 11:00 29 Mechanical Ventilator 80 12/21/19 10:30 100 29 125/64 (84) 100 12/21/19 10:00 101 30 133/65 (87) 100 12/21/19 10:00 31 Mechanical Ventilator 80 12/21/19 10:00 131/65 12/21/19 10:00 31 Mechanical Ventilator 80 12/21/19 09:30 99 31 128/68 (88) 100 Intake and Output 12/21/19 12/22/19 19:00 07:00 Intake Total 1336.875 ml 1152.50 ml Output Total 70 ml 2005 ml Balance 1266.875 ml -852.50 ml Free Water 100 ml 200 ml IV Total 666.875 ml 567.50 ml Tube Feeding 420 ml 385 ml Other 150 ml Output Urine Total 0 ml 5 ml Stool Total 70 ml Hemodialysis UF 2000 ml General Appearance: other HEENT: normocephalic, atraumatic, no JVD, other Respiratory/Chest: chest wall non-tender, decreased breath sounds Cardiovascular: normal peripheral pulses, normal rate Abdomen: normal bowel sounds, soft, non tender, no organomegaly, non distended Genitourinary: other Extremities: no cyanosis Skin: no rash Neurologic/Psychiatric: other Lymphatic: no neck adenopathy Musculoskeletal: no effusion Laboratory Tests 12/22/19 04:00: White Blood Count 32.9*H, Red Blood Count 3.03L, Hemoglobin 9.0L, Hematocrit 28.2L, Mean Corpuscular Volume 93, Mean Corpuscular Hemoglobin 29.8, Mean Corpuscular Hemoglobin Concent 32.0, Red Cell Distribution Width 14.7, Platelet Count 255, Mean Platelet Volume 7.2, Neutrophils (%) (Auto) , Lymphocytes (%) ( Auto) , Monocytes (%) (Auto) , Eosinophils (%) (Auto) , Basophils (%) (Auto) , Neutrophils % (Manual) [Pending], Lymphocytes % (Manual) [Pending], Platelet Estimate [Pending], Platelet Morphology [Pending], D-Dimer 15.39H, Sodium Level 138, Potassium Level 3.8, Chloride Level 97L, Carbon Dioxide Level 35H, Anion Gap 7, Blood Urea Nitrogen 31H, Creatinine 2.9H, Estimat Glomerular Filtration Rate 22.5, Glucose Level 110H, Calcium Level 8.6, Phosphorus Level 6.4H, Magnesium Level 2.4, Ferritin 769H, Total Bilirubin 0.5, Aspartate Amino Transf (AST/SGOT) 62H, Alanine Aminotransferase (ALT/SGPT) 53, Alkaline Phosphatase 325H, Lactate Dehydrogenase 436H, Total Creatine Kinase 372H, Total Protein 7.2 , Albumin 2.5L, Globulin 4.7, Albumin/Globulin Ratio 0.5L Current Medications Medications (Trade) Dose Ordered Sig/Vicki Route PRN Reason Start Time Stop Time Status Last Admin Dose Admin Acetaminophen (Tylenol) 650 mg Q4H PRN NG Temp >100.5 12/06/19 14:15 01/05/20 14:14 12/22/19 03:49 Acetaminophen (Tylenol) 650 mg Q4H PRN RECTAL Mild Pain (Pain Scale 1-3) 12/04/19 11:45 01/03/20 11:44 12/06/19 19:17 Chlorhexidine Gluconate (Arely-Hex 2%) 1 applic DAILY@2000 TOPIC 12/05/19 20:00 03/04/20 19:59 12/21/19 20:06 Dextrose (Dextrose 50%) 25 ml Q30M PRN IV Hypoglycemia 11/29/19 14:15 02/27/20 14:14 Dextrose (Dextrose 50%) 50 ml Q30M PRN IV Hypoglycemia 11/29/19 14:15 02/27/20 14:14 Fentanyl Citrate 2500 mcg/Sodium Chloride 250 ml @ 0 mls/hr Q24H IV 12/20/19 00:00 12/27/19 00:00 12/21/19 21:09 Fluconazole/ Sodium Chloride 100 ml @ 100 mls/hr Q24H IV 12/16/19 22:00 12/23/19 21:59 12/21/19 20:07 Folic Acid (Folate) 1 mg DAILY NG 12/18/19 09:00 01/17/20 08:59 12/22/19 08:22 Hydralazine HCl (Apresoline) 10 mg Q4H PRN IV For High Blood Pressure 11/29/19 15:15 02/27/20 15:14 Loperamide HCl (Imodium) 2 mg Q6H PRN NG Diarrhea 12/12/19 12:45 01/11/20 12:44 Meropenem 500 mg/ Sodium Chloride 50 ml @ 100 mls/hr Q24H IVPB 12/20/19 21:30 12/25/19 21:29 12/21/19 20:06 Midazolam HCl 100 ml @ 0 mls/hr Q24H PRN IV Restlessness 12/16/19 10:45 03/15/20 10:44 12/21/19 13:14 Midodrine (Pro-Amatine) 10 mg THREE TIMES A DAY ORAL 12/12/19 13:00 03/11/20 12:59 12/22/19 08:21 Norepinephrine Bitartrate 8 mg/ Dextrose 250 ml @ 0 mls/hr Q24H IV 12/18/19 09:00 01/17/20 08:59 12/21/19 23:28 Ondansetron HCl (Zofran) 4 mg Q6H PRN IVP Nausea & Vomiting 11/29/19 14:15 12/29/19 14:14 Pantoprazole (Protonix) 40 mg DAILY IVP 11/30/19 12:15 12/30/19 12:14 12/22/19 08:21 Vancomycin HCl (Vanco rx to dose) 1 ea DAILY PRN MISC Per rx protocol 12/08/19 19:30 01/07/20 19:29 Vitamin B Complex/ Vit C/Folic Acid (Nephrovite) 1 tab DAILY NG 12/16/19 09:00 01/15/20 08:59 12/22/19 08:21 Assessment/Plan Assessment/Plan IMPRESSION: 1. Bilateral pneumonia. 2. Positive COVID-19. 3. Respiratory failure. DISCUSSION: Intubated On AC 20; FiO2 100; PEEP 3; SaO2 99% Mediastinal PTX; stable; continue low PEEP ventilation Hold proning On Fentanyl due to high triglycerides Saturations are better Grave prognosis I will follow carefully. On HD now S/p Actemra Blood CS ? contaminant Needs ongoing HD; more ultrafiltration Urine CS negative Will decrease PEEP to 3 Continue vent Tray Tolentino Omar Syed MD December 22, 2019 09:13
--- NOTE | 2019-12-22 10:01 | NUR ---
NURSE NOTES: Called and left a message to Dr Casillas for elevated WBC 32.9. Awaiting call back for new orders.
--- NOTE | 2019-12-22 10:10 | NUR ---
NURSE NOTES: Dr Casillas called back and stated that he will come and see the patient.
--- NOTE | 2019-12-22 11:04 | Nephrology Progress Note ---
Assessment/Plan Plan #ALBARO- concerns for developing ischemic ATN in the setting of sepsis- r/o vanco toxicity - r/o COVID nephropathy - now with likely ATN #Hyperkalemia due to renal insuffiency - exacerbated by acidosis #COID sepsis #COVID pneumonia #hypoxemic respiratary failure #HTN- now in shock #mediastinal PTX - nexy HD tomorrow - midodorine 10mg q8hr - add sevelamer 800mg TID - monitor I&Os - daily weights - monitor lytes closely -add nephrovite - GOALS of care discussion - continue pressor support to maintain MAP > 65- continue levo - continue fentanyl dip - abx per ID- on vanco and meropenem - vent management per pulm -Abd Xray shows mediastinal PTX - too high risk for thorocotomy Subjective ROS Limited/Unobtainable: Yes Subjective HD yesterday with 2L UF remains oliguric on Fio2 100 on levo Abd Xray shows mediastinal PTX Objective Objective Last 24 Hour Vital Signs Date Time Temp Pulse Resp B/P (MAP) Pulse Ox O2 Delivery O2 Flow Rate FiO2 12/22/19 10:28 112 21 116/50 (72) 100 12/22/19 10:12 24 Mechanical Ventilator 100 12/22/19 10:00 109/52 12/22/19 10:00 22 Non-Rebreather 100 12/22/19 10:00 111 22 109/52 (71) 100 12/22/19 09:30 111 22 106/54 (71) 100 12/22/19 09:30 111 21 101/51 (68) 100 12/22/19 09:00 101/51 12/22/19 09:00 22 Mechanical Ventilator 100 12/22/19 09:00 111 21 101/51 (68) 100 12/22/19 08:51 111 12/22/19 08:30 112 22 97/52 (67) 100 12/22/19 08:00 100 12/22/19 08:00 99/47 12/22/19 08:00 22 Mechanical Ventilator 100 12/22/19 08:00 99.2 113 22 99/47 (64) 100 12/22/19 08:00 111 12/22/19 08:00 Mechanical Ventilator 12/22/19 07:30 112 23 97/54 (68) 100 12/22/19 07:00 111 22 65 12/22/19 07:00 21 Mechanical Ventilator 100 12/22/19 07:00 100/48 12/22/19 07:00 21 Mechanical Ventilator 100 12/22/19 07:00 111 21 100/48 (65) 100 12/22/19 06:30 109 22 100/47 (64) 100 12/22/19 06:00 22 Mechanical Ventilator 100 12/22/19 06:00 107/52 12/22/19 06:00 22 Mechanical Ventilator 100 12/22/19 06:00 105 22 107/52 (70) 100 12/22/19 05:30 106 23 95/49 (64) 100 12/22/19 05:00 25 Mechanical Ventilator 100 12/22/19 05:00 92/51 12/22/19 05:00 25 Mechanical Ventilator 100 12/22/19 05:00 108 25 92/51 (65) 100 12/22/19 04:30 98.9 110 25 90/50 (63) 100 12/22/19 04:19 98.9 12/22/19 04:00 100 12/22/19 04:00 29 Mechanical Ventilator 100 12/22/19 04:00 99/57 12/22/19 04:00 29 Mechanical Ventilator 100 12/22/19 04:00 113 12/22/19 04:00 Mechanical Ventilator 12/22/19 04:00 99.2 112 29 99/57 (71) 100 12/22/19 03:30 112 27 100/51 (67) 100 12/22/19 03:00 112 23 94/51 (65) 100 12/22/19 03:00 23 Mechanical Ventilator 100 12/22/19 03:00 94/51 12/22/19 03:00 23 Mechanical Ventilator 100 12/22/19 02:30 113 26 98/51 (67) 100 12/22/19 02:00 114 22 105/52 (69) 100 12/22/19 02:00 22 Mechanical Ventilator 100 12/22/19 02:00 105/52 12/22/19 02:00 22 Mechanical Ventilator 100 12/22/19 01:38 117 20 65 12/22/19 01:30 118 25 99/55 (70) 100 12/22/19 01:00 21 Mechanical Ventilator 100 12/22/19 01:00 102/55 12/22/19 01:00 21 Mechanical Ventilator 100 12/22/19 01:00 118 21 102/55 (71) 100 12/22/19 00:30 115 23 109/61 (77) 100 12/22/19 00:00 100 12/22/19 00:00 116 12/22/19 00:00 99.8 115 39 109/56 (73) 93 12/22/19 00:00 39 Mechanical Ventilator 100 12/22/19 00:00 109/59 12/22/19 00:00 39 Mechanical Ventilator 100 12/22/19 00:00 Mechanical Ventilator 12/21/19 23:30 115 39 109/57 (74) 95 12/21/19 23:28 103/56 12/21/19 23:00 99.9 115 38 103/56 (72) 95 12/21/19 22:42 118 40 65 12/21/19 22:30 111 22 94/53 (67) 95 12/21/19 22:00 118 38 116/59 (78) 94 12/21/19 22:00 38 Mechanical Ventilator 65 12/21/19 22:00 116/59 12/21/19 22:00 38 Mechanical Ventilator 65 12/21/19 21:30 119 40 111/55 (73) 95 12/21/19 21:09 38 Mechanical Ventilator 65 12/21/19 21:00 39 Mechanical Ventilator 65 12/21/19 21:00 104/57 12/21/19 21:00 39 Mechanical Ventilator 65 12/21/19 21:00 99.6 119 39 104/57 (73) 95 12/21/19 20:30 120 38 117/61 (79) 96 12/21/19 20:00 122 39 106/56 (73) 95 12/21/19 20:00 65 12/21/19 20:00 121 12/21/19 20:00 Mechanical Ventilator 12/21/19 20:00 39 Mechanical Ventilator 65 12/21/19 20:00 106/56 12/21/19 20:00 39 Mechanical Ventilator 65 12/21/19 19:30 122 38 117/61 (79) 95 12/21/19 19:06 122 38 65 12/21/19 19:00 125 38 107/64 (78) 93 12/21/19 19:00 36 Mechanical Ventilator 65 12/21/19 19:00 107/64 5/9/20 19:00 36 Mechanical Ventilator 65 12/21/19 18:30 119 38 119/63 (81) 98 12/21/19 18:00 38 Mechanical Ventilator 65 12/21/19 18:00 126/63 12/21/19 18:00 38 Mechanical Ventilator 65 12/21/19 18:00 118 38 126/63 (84) 93 12/21/19 17:30 119 38 127/63 (84) 91 12/21/19 17:00 37 Non-Rebreather 65 12/21/19 17:00 127/63 12/21/19 17:00 37 65 12/21/19 17:00 98.3 112 38 127/63 (84) 93 12/21/19 16:30 112 36 120/60 (80) 92 12/21/19 16:00 105 36 118/60 (79) 94 12/21/19 16:00 35 Mechanical Ventilator 65 12/21/19 16:00 118/60 12/21/19 16:00 35 Mechanical Ventilator 65 12/21/19 16:00 Mechanical Ventilator 12/21/19 16:00 112 12/21/19 15:30 108 36 100/49 (66) 93 12/21/19 15:08 105 35 65 12/21/19 15:00 105 28 124/55 (78) 91 12/21/19 15:00 34 Mechanical Ventilator 65 12/21/19 15:00 124/55 12/21/19 15:00 34 Mechanical Ventilator 65 12/21/19 14:15 103 28 118/60 (79) 100 12/21/19 14:00 29 Mechanical Ventilator 65 12/21/19 14:00 118/57 12/21/19 14:00 29 65 12/21/19 14:00 101 29 118/57 (77) 100 12/21/19 13:45 104 29 121/60 (80) 100 12/21/19 13:30 104 29 122/66 (84) 100 12/21/19 13:30 65 12/21/19 13:15 102 30 132/61 (84) 100 12/21/19 13:14 28 Mechanical Ventilator 80 12/21/19 13:00 100 29 144/70 (94) 100 12/21/19 13:00 30 Mechanical Ventilator 65 12/21/19 13:00 144/70 12/21/19 13:00 30 Mechanical Ventilator 65 12/21/19 12:45 102 30 151/74 (99) 100 12/21/19 12:45 151/74 12/21/19 12:30 98.7 105 29 159/75 (103) 100 12/21/19 12:08 97/56 12/21/19 12:00 Mechanical Ventilator 12/21/19 12:00 30 Mechanical Ventilator 80 12/21/19 12:00 97/56 12/21/19 12:00 30 80 12/21/19 12:00 114 12/21/19 12:00 114 30 97/56 (70) 100 12/21/19 12:00 80 12/21/19 11:33 103 30 119/58 (78) 100 12/21/19 11:30 99 29 119/58 (78) 100 12/21/19 11:03 98 29 80 Intake and Output 12/21/19 12/22/19 19:00 07:00 Intake Total 1336.875 ml 1187.50 ml Output Total 70 ml 2005 ml Balance 1266.875 ml -817.50 ml Free Water 100 ml 200 ml IV Total 666.875 ml 567.50 ml Tube Feeding 420 ml 420 ml Other 150 ml Output Urine Total 0 ml 5 ml Stool Total 70 ml Hemodialysis UF 2000 ml Laboratory Tests 12/22/19 04:00: White Blood Count 32.9*H, Red Blood Count 3.03L, Hemoglobin 9.0L, Hematocrit 28.2L, Mean Corpuscular Volume 93, Mean Corpuscular Hemoglobin 29.8, Mean Corpuscular Hemoglobin Concent 32.0, Red Cell Distribution Width 14.7, Platelet Count 255, Mean Platelet Volume 7.2, Neutrophils (%) (Auto) , Lymphocytes (%) ( Auto) , Monocytes (%) (Auto) , Eosinophils (%) (Auto) , Basophils (%) (Auto) , Differential Total Cells Counted 100, Neutrophils % (Manual) 89H, Lymphocytes % (Manual) 6L, Monocytes % (Manual) 5, Eosinophils % (Manual) 0, Basophils % ( Manual) 0, Band Neutrophils 0, Platelet Estimate Adequate, Platelet Morphology Normal, Polychromasia 1+, Anisocytosis 1+, D-Dimer 15.39H, Sodium Level 138, Potassium Level 3.8, Chloride Level 97L, Carbon Dioxide Level 35H, Anion Gap 7, Blood Urea Nitrogen 31H, Creatinine 2.9H, Estimat Glomerular Filtration Rate 22.5, Glucose Level 110H, Calcium Level 8.6, Phosphorus Level 6.4H, Magnesium Level 2.4, Ferritin 769H, Total Bilirubin 0.5, Aspartate Amino Transf (AST/SGOT ) 62H, Alanine Aminotransferase (ALT/SGPT) 53, Alkaline Phosphatase 325H, Lactate Dehydrogenase 436H, Total Creatine Kinase 372H, Total Protein 7.2, Albumin 2.5L, Globulin 4.7, Albumin/Globulin Ratio 0.5L Height (Feet): 5 Height (Inches): 6.00 Weight (Pounds): 163 Objective General Appearance: other - intubated- proned Lines, tubes and drains: central line HEENT: normocephalic, atraumatic Respiratory/Chest: rhonchi - bilaterally Cardiovascular/Chest: other - tachycardic Extremities: pitting Dorian Soriano M.D. December 22, 2019 11:04
--- NOTE | 2019-12-22 11:49 | General Progress Note ---
Assessment/Plan Status: unchanged Assessment/Plan: . ASSESSMENT RESP/ID #Acute Hypoxic Respiratory Failure 2/2 COVID +, HCAP +--> WBC continues to climb 12/21 #Septic Shock #PTX/Pneumomediastinum--> to high risk for intervention Appreciate Pulm/ID --> Vent Management Fentanyl for Sedation 2/2 elevated TG Pressor support, maintain MAP > 65 ABG per pulm Patient is s/p IL-6 inhibitor and Plaquenil Trend predictive markers Q3 days; CRP, Pro-Calcitonin, Ferritin, Ddimer Monitor Ddimer, if 10X upper limit, consider AC for embolic prevention Continue Broad Spectrum AB per ID, Cx per ID (currently on meropenem, vancomycin , fluconazole) Surgery to monitor PTX NEPHRO #ARF now on HD Continue HD per Nephro, last HD 12/20 GI #Shock Liver Appreciate GI recs Liver enzymes also likely elevated 2/2 COVID + state CV #Tachcyardia, s/p AFib now converted to sinus Appreciate Cardio management PLAN 12/21:Continue AB per ID, HD per nephro, Vent management per Pulm. Will f/u with ID today regarding AB regimen DVT/GI ppx, Tube Feeding, FULL CODE Subjective Date patient seen: December 22, 2019 Allergies: Coded Allergies: No Known Allergies (Unverified , 11/29/19) Subjective Patient remains intubated on Fi02 100 %; His WBC continues to climb despite being on broad spectrum AB; Ddimer > 15 times upper limit of normal. Have ordered DIC panel, will touch base with ID. All recent Cxs negative. Remains on pressor support and sedated Objective Last 24 Hour Vital Signs Date Time Temp Pulse Resp B/P (MAP) Pulse Ox O2 Delivery O2 Flow Rate FiO2 12/22/19 11:00 114 21 114/56 (75) 100 12/22/19 10:35 111 22 65 12/22/19 10:28 112 21 116/50 (72) 100 12/22/19 10:12 24 Mechanical Ventilator 100 12/22/19 10:00 109/52 12/22/19 10:00 22 Non-Rebreather 100 12/22/19 10:00 111 22 109/52 (71) 100 12/22/19 09:30 111 22 106/54 (71) 100 12/22/19 09:30 111 21 101/51 (68) 100 12/22/19 09:00 101/51 12/22/19 09:00 22 Mechanical Ventilator 100 12/22/19 09:00 111 21 101/51 (68) 100 12/22/19 08:51 111 12/22/19 08:30 112 22 97/52 (67) 100 12/22/19 08:00 100 12/22/19 08:00 99/47 12/22/19 08:00 22 Mechanical Ventilator 100 12/22/19 08:00 99.2 113 22 99/47 (64) 100 12/22/19 08:00 111 12/22/19 08:00 Mechanical Ventilator 12/22/19 07:30 112 23 97/54 (68) 100 12/22/19 07:00 111 22 65 12/22/19 07:00 21 Mechanical Ventilator 100 12/22/19 07:00 100/48 12/22/19 07:00 21 Mechanical Ventilator 100 12/22/19 07:00 111 21 100/48 (65) 100 12/22/19 06:30 109 22 100/47 (64) 100 12/22/19 06:00 22 Mechanical Ventilator 100 12/22/19 06:00 107/52 12/22/19 06:00 22 Mechanical Ventilator 100 12/22/19 06:00 105 22 107/52 (70) 100 12/22/19 05:30 106 23 95/49 (64) 100 12/22/19 05:00 25 Mechanical Ventilator 100 12/22/19 05:00 92/51 12/22/19 05:00 25 Mechanical Ventilator 100 12/22/19 05:00 108 25 92/51 (65) 100 12/22/19 04:30 98.9 110 25 90/50 (63) 100 12/22/19 04:19 98.9 12/22/19 04:00 100 12/22/19 04:00 29 Mechanical Ventilator 100 12/22/19 04:00 99/57 12/22/19 04:00 29 Mechanical Ventilator 100 12/22/19 04:00 113 12/22/19 04:00 Mechanical Ventilator 12/22/19 04:00 99.2 112 29 99/57 (71) 100 12/22/19 03:30 112 27 100/51 (67) 100 12/22/19 03:00 112 23 94/51 (65) 100 12/22/19 03:00 23 Mechanical Ventilator 100 12/22/19 03:00 94/51 12/22/19 03:00 23 Mechanical Ventilator 100 12/22/19 02:30 113 26 98/51 (67) 100 12/22/19 02:00 114 22 105/52 (69) 100 12/22/19 02:00 22 Mechanical Ventilator 100 12/22/19 02:00 105/52 12/22/19 02:00 22 Mechanical Ventilator 100 12/22/19 01:38 117 20 65 12/22/19 01:30 118 25 99/55 (70) 100 12/22/19 01:00 21 Mechanical Ventilator 100 12/22/19 01:00 102/55 12/22/19 01:00 21 Mechanical Ventilator 100 12/22/19 01:00 118 21 102/55 (71) 100 12/22/19 00:30 115 23 109/61 (77) 100 12/22/19 00:00 100 12/22/19 00:00 116 12/22/19 00:00 99.8 115 39 109/56 (73) 93 12/22/19 00:00 39 Mechanical Ventilator 100 12/22/19 00:00 109/59 12/22/19 00:00 39 Mechanical Ventilator 100 12/22/19 00:00 Mechanical Ventilator 12/21/19 23:30 115 39 109/57 (74) 95 12/21/19 23:28 103/56 12/21/19 23:00 99.9 115 38 103/56 (72) 95 12/21/19 22:42 118 40 65 12/21/19 22:30 111 22 94/53 (67) 95 12/21/19 22:00 118 38 116/59 (78) 94 12/21/19 22:00 38 Mechanical Ventilator 65 12/21/19 22:00 116/59 12/21/19 22:00 38 Mechanical Ventilator 65 12/21/19 21:30 119 40 111/55 (73) 95 12/21/19 21:09 38 Mechanical Ventilator 65 12/21/19 21:00 39 Mechanical Ventilator 65 12/21/19 21:00 104/57 12/21/19 21:00 39 Mechanical Ventilator 65 12/21/19 21:00 99.6 119 39 104/57 (73) 95 12/21/19 20:30 120 38 117/61 (79) 96 12/21/19 20:00 122 39 106/56 (73) 95 12/21/19 20:00 65 12/21/19 20:00 121 12/21/19 20:00 Mechanical Ventilator 12/21/19 20:00 39 Mechanical Ventilator 65 12/21/19 20:00 106/56 12/21/19 20:00 39 Mechanical Ventilator 65 12/21/19 19:30 122 38 117/61 (79) 95 12/21/19 19:06 122 38 65 12/21/19 19:00 125 38 107/64 (78) 93 12/21/19 19:00 36 Mechanical Ventilator 65 12/21/19 19:00 107/64 12/21/19 19:00 36 Mechanical Ventilator 65 12/21/19 18:30 119 38 119/63 (81) 98 12/21/19 18:00 38 Mechanical Ventilator 65 12/21/19 18:00 126/63 12/21/19 18:00 38 Mechanical Ventilator 65 12/21/19 18:00 118 38 126/63 (84) 93 12/21/19 17:30 119 38 127/63 (84) 91 12/21/19 17:00 37 Non-Rebreather 65 12/21/19 17:00 127/63 12/21/19 17:00 37 65 12/21/19 17:00 98.3 112 38 127/63 (84) 93 12/21/19 16:30 112 36 120/60 (80) 92 12/21/19 16:00 105 36 118/60 (79) 94 12/21/19 16:00 35 Mechanical Ventilator 65 12/21/19 16:00 118/60 12/21/19 16:00 35 Mechanical Ventilator 65 12/21/19 16:00 Mechanical Ventilator 12/21/19 16:00 112 12/21/19 15:30 108 36 100/49 (66) 93 12/21/19 15:08 105 35 65 12/21/19 15:00 105 28 124/55 (78) 91 12/21/19 15:00 34 Mechanical Ventilator 65 12/21/19 15:00 124/55 12/21/19 15:00 34 Mechanical Ventilator 65 12/21/19 14:15 103 28 118/60 (79) 100 5/9/20 14:00 29 Mechanical Ventilator 65 12/21/19 14:00 118/57 12/21/19 14:00 29 65 12/21/19 14:00 101 29 118/57 (77) 100 12/21/19 13:45 104 29 121/60 (80) 100 12/21/19 13:30 104 29 122/66 (84) 100 12/21/19 13:30 65 12/21/19 13:15 102 30 132/61 (84) 100 12/21/19 13:14 28 Mechanical Ventilator 80 12/21/19 13:00 100 29 144/70 (94) 100 12/21/19 13:00 30 Mechanical Ventilator 65 12/21/19 13:00 144/70 12/21/19 13:00 30 Mechanical Ventilator 65 12/21/19 12:45 102 30 151/74 (99) 100 12/21/19 12:45 151/74 12/21/19 12:30 98.7 105 29 159/75 (103) 100 12/21/19 12:08 97/56 12/21/19 12:00 Mechanical Ventilator 12/21/19 12:00 30 Mechanical Ventilator 80 12/21/19 12:00 97/56 12/21/19 12:00 30 80 12/21/19 12:00 114 12/21/19 12:00 114 30 97/56 (70) 100 12/21/19 12:00 80 Intake and Output 12/21/19 12/22/19 19:00 07:00 Intake Total 1336.875 ml 1187.50 ml Output Total 70 ml 2005 ml Balance 1266.875 ml -817.50 ml Free Water 100 ml 200 ml IV Total 666.875 ml 567.50 ml Tube Feeding 420 ml 420 ml Other 150 ml Output Urine Total 0 ml 5 ml Stool Total 70 ml Hemodialysis UF 2000 ml Laboratory Tests 12/22/19 04:00: White Blood Count 32.9*H, Red Blood Count 3.03L, Hemoglobin 9.0L, Hematocrit 28.2L, Mean Corpuscular Volume 93, Mean Corpuscular Hemoglobin 29.8, Mean Corpuscular Hemoglobin Concent 32.0, Red Cell Distribution Width 14.7, Platelet Count 255, Mean Platelet Volume 7.2, Neutrophils (%) (Auto) , Lymphocytes (%) ( Auto) , Monocytes (%) (Auto) , Eosinophils (%) (Auto) , Basophils (%) (Auto) , Differential Total Cells Counted 100, Neutrophils % (Manual) 89H, Lymphocytes % (Manual) 6L, Monocytes % (Manual) 5, Eosinophils % (Manual) 0, Basophils % ( Manual) 0, Band Neutrophils 0, Platelet Estimate Adequate, Platelet Morphology Normal, Polychromasia 1+, Anisocytosis 1+, D-Dimer 15.39H, Sodium Level 138, Potassium Level 3.8, Chloride Level 97L, Carbon Dioxide Level 35H, Anion Gap 7, Blood Urea Nitrogen 31H, Creatinine 2.9H, Estimat Glomerular Filtration Rate 22.5, Glucose Level 110H, Calcium Level 8.6, Phosphorus Level 6.4H, Magnesium Level 2.4, Ferritin 769H, Total Bilirubin 0.5, Aspartate Amino Transf (AST/SGOT ) 62H, Alanine Aminotransferase (ALT/SGPT) 53, Alkaline Phosphatase 325H, Lactate Dehydrogenase 436H, Total Creatine Kinase 372H, Total Protein 7.2, Albumin 2.5L, Globulin 4.7, Albumin/Globulin Ratio 0.5L Height (Feet): 5 Height (Inches): 6.00 Weight (Pounds): 163 Objective General Appearance: other - intubated, sedated, critical patient EENT: other - ET tube in place Cardiovascular: normal rate, regular rhythm, other - currently requiring pressor support Respiratory/Chest: other - Vented lung sounds Abdomen: soft, no organomegaly, other - NG tube Edema: 2+ Generalized Neurologic: other - sedated Talya Noriega D.O. December 22, 2019 11:49
--- NOTE | 2019-12-22 12:08 | NUR ---
NURSE NOTES: Called [facility] for HR order for tomorrow. BP 107/52 on Levophed at 10mcg/min. Afebrile. Will continue to monitor.
--- NOTE | 2019-12-22 12:18 | Urology Progress Note ---
Assessment/Plan Status: unchanged Assessment/Plan: 1. Phimosis. 2. Retention. 3. Hematuria. 4. Pyuria. 5. Proteinuria. 6. Acute kidney injury. 7. Meatal stenosis. monitor clinically maintain barnes, placed 12/04 hand irrigate PRN monitor urine output and renal fxn consider renal imaging abx as ordered HD per nephrology f/u on blood cx Subjective Allergies: Coded Allergies: No Known Allergies (Unverified , 11/29/19) Subjective remains on vent, still with minimal urine output, HD Objective Last 24 Hour Vital Signs Date Time Temp Pulse Resp B/P (MAP) Pulse Ox O2 Delivery O2 Flow Rate FiO2 12/22/19 12:00 Mechanical Ventilator 12/22/19 11:00 114 21 114/56 (75) 100 12/22/19 10:35 111 22 65 12/22/19 10:28 112 21 116/50 (72) 100 12/22/19 10:12 24 Mechanical Ventilator 100 12/22/19 10:00 109/52 12/22/19 10:00 22 Non-Rebreather 100 12/22/19 10:00 111 22 109/52 (71) 100 12/22/19 09:30 111 22 106/54 (71) 100 12/22/19 09:30 111 21 101/51 (68) 100 12/22/19 09:00 101/51 12/22/19 09:00 22 Mechanical Ventilator 100 12/22/19 09:00 111 21 101/51 (68) 100 12/22/19 08:51 111 12/22/19 08:30 112 22 97/52 (67) 100 12/22/19 08:00 100 12/22/19 08:00 99/47 12/22/19 08:00 22 Mechanical Ventilator 100 12/22/19 08:00 99.2 113 22 99/47 (64) 100 12/22/19 08:00 111 12/22/19 08:00 Mechanical Ventilator 12/22/19 07:30 112 23 97/54 (68) 100 12/22/19 07:00 111 22 65 12/22/19 07:00 21 Mechanical Ventilator 100 12/22/19 07:00 100/48 12/22/19 07:00 21 Mechanical Ventilator 100 12/22/19 07:00 111 21 100/48 (65) 100 12/22/19 06:30 109 22 100/47 (64) 100 12/22/19 06:00 22 Mechanical Ventilator 100 12/22/19 06:00 107/52 12/22/19 06:00 22 Mechanical Ventilator 100 12/22/19 06:00 105 22 107/52 (70) 100 12/22/19 05:30 106 23 95/49 (64) 100 12/22/19 05:00 25 Mechanical Ventilator 100 12/22/19 05:00 92/51 12/22/19 05:00 25 Mechanical Ventilator 100 12/22/19 05:00 108 25 92/51 (65) 100 12/22/19 04:30 98.9 110 25 90/50 (63) 100 12/22/19 04:19 98.9 12/22/19 04:00 100 12/22/19 04:00 29 Mechanical Ventilator 100 12/22/19 04:00 99/57 12/22/19 04:00 29 Mechanical Ventilator 100 12/22/19 04:00 113 12/22/19 04:00 Mechanical Ventilator 12/22/19 04:00 99.2 112 29 99/57 (71) 100 12/22/19 03:30 112 27 100/51 (67) 100 12/22/19 03:00 112 23 94/51 (65) 100 12/22/19 03:00 23 Mechanical Ventilator 100 12/22/19 03:00 94/51 12/22/19 03:00 23 Mechanical Ventilator 100 12/22/19 02:30 113 26 98/51 (67) 100 12/22/19 02:00 114 22 105/52 (69) 100 12/22/19 02:00 22 Mechanical Ventilator 100 12/22/19 02:00 105/52 12/22/19 02:00 22 Mechanical Ventilator 100 12/22/19 01:38 117 20 65 12/22/19 01:30 118 25 99/55 (70) 100 12/22/19 01:00 21 Mechanical Ventilator 100 12/22/19 01:00 102/55 12/22/19 01:00 21 Mechanical Ventilator 100 12/22/19 01:00 118 21 102/55 (71) 100 12/22/19 00:30 115 23 109/61 (77) 100 12/22/19 00:00 100 12/22/19 00:00 116 12/22/19 00:00 99.8 115 39 109/56 (73) 93 12/22/19 00:00 39 Mechanical Ventilator 100 12/22/19 00:00 109/59 12/22/19 00:00 39 Mechanical Ventilator 100 12/22/19 00:00 Mechanical Ventilator 12/21/19 23:30 115 39 109/57 (74) 95 12/21/19 23:28 103/56 12/21/19 23:00 99.9 115 38 103/56 (72) 95 12/21/19 22:42 118 40 65 12/21/19 22:30 111 22 94/53 (67) 95 12/21/19 22:00 118 38 116/59 (78) 94 12/21/19 22:00 38 Mechanical Ventilator 65 12/21/19 22:00 116/59 12/21/19 22:00 38 Mechanical Ventilator 65 12/21/19 21:30 119 40 111/55 (73) 95 12/21/19 21:09 38 Mechanical Ventilator 65 12/21/19 21:00 39 Mechanical Ventilator 65 12/21/19 21:00 104/57 12/21/19 21:00 39 Mechanical Ventilator 65 12/21/19 21:00 99.6 119 39 104/57 (73) 95 12/21/19 20:30 120 38 117/61 (79) 96 12/21/19 20:00 122 39 106/56 (73) 95 12/21/19 20:00 65 12/21/19 20:00 121 12/21/19 20:00 Mechanical Ventilator 12/21/19 20:00 39 Mechanical Ventilator 65 12/21/19 20:00 106/56 12/21/19 20:00 39 Mechanical Ventilator 65 12/21/19 19:30 122 38 117/61 (79) 95 12/21/19 19:06 122 38 65 12/21/19 19:00 125 38 107/64 (78) 93 12/21/19 19:00 36 Mechanical Ventilator 65 12/21/19 19:00 107/64 12/21/19 19:00 36 Mechanical Ventilator 65 12/21/19 18:30 119 38 119/63 (81) 98 12/21/19 18:00 38 Mechanical Ventilator 65 12/21/19 18:00 126/63 12/21/19 18:00 38 Mechanical Ventilator 65 12/21/19 18:00 118 38 126/63 (84) 93 12/21/19 17:30 119 38 127/63 (84) 91 12/21/19 17:00 37 Non-Rebreather 65 12/21/19 17:00 127/63 12/21/19 17:00 37 65 12/21/19 17:00 98.3 112 38 127/63 (84) 93 12/21/19 16:30 112 36 120/60 (80) 92 12/21/19 16:00 105 36 118/60 (79) 94 12/21/19 16:00 35 Mechanical Ventilator 65 12/21/19 16:00 118/60 12/21/19 16:00 35 Mechanical Ventilator 65 12/21/19 16:00 Mechanical Ventilator 12/21/19 16:00 112 12/21/19 15:30 108 36 100/49 (66) 93 12/21/19 15:08 105 35 65 12/21/19 15:00 105 28 124/55 (78) 91 12/21/19 15:00 34 Mechanical Ventilator 65 12/21/19 15:00 124/55 12/21/19 15:00 34 Mechanical Ventilator 65 12/21/19 14:15 103 28 118/60 (79) 100 12/21/19 14:00 29 Mechanical Ventilator 65 12/21/19 14:00 118/57 12/21/19 14:00 29 65 12/21/19 14:00 101 29 118/57 (77) 100 12/21/19 13:45 104 29 121/60 (80) 100 12/21/19 13:30 104 29 122/66 (84) 100 12/21/19 13:30 65 12/21/19 13:15 102 30 132/61 (84) 100 12/21/19 13:14 28 Mechanical Ventilator 80 12/21/19 13:00 100 29 144/70 (94) 100 12/21/19 13:00 30 Mechanical Ventilator 65 12/21/19 13:00 144/70 12/21/19 13:00 30 Mechanical Ventilator 65 12/21/19 12:45 102 30 151/74 (99) 100 12/21/19 12:45 151/74 12/21/19 12:30 98.7 105 29 159/75 (103) 100 Intake and Output 12/21/19 12/22/19 19:00 07:00 Intake Total 1336.875 ml 1187.50 ml Output Total 70 ml 2005 ml Balance 1266.875 ml -817.50 ml Free Water 100 ml 200 ml IV Total 666.875 ml 567.50 ml Tube Feeding 420 ml 420 ml Other 150 ml Output Urine Total 0 ml 5 ml Stool Total 70 ml Hemodialysis UF 2000 ml Microbiology Date/Time Source Procedure Growth Status 12/17/19 06:55 Blood Blood Culture - Preliminary NO GROWTH AFTER 4 DAYS Resulted 12/16/19 16:00 Sputum Gram Stain - Final Complete 12/16/19 16:00 Sputum Sputum Culture - Final NORMAL UPPER RESPIRATORY ALISIA PRESENT Complete 12/11/19 22:50 Stool Clostridium difficile Toxin Assay - Final Complete 12/17/19 00:38 Indwelling Cath Urine Culture - Final NO GROWTH AFTER 48 HOURS Complete Current Medications Medications (Trade) Dose Ordered Sig/Vicki Route PRN Reason Start Time Stop Time Status Last Admin Dose Admin Acetaminophen (Tylenol) 650 mg Q4H PRN NG Temp >100.5 12/06/19 14:15 01/05/20 14:14 12/22/19 03:49 Acetaminophen (Tylenol) 650 mg Q4H PRN RECTAL Mild Pain (Pain Scale 1-3) 12/04/19 11:45 01/03/20 11:44 12/06/19 19:17 Chlorhexidine Gluconate (Arely-Hex 2%) 1 applic DAILY@2000 TOPIC 12/05/19 20:00 03/04/20 19:59 12/21/19 20:06 Dextrose (Dextrose 50%) 25 ml Q30M PRN IV Hypoglycemia 11/29/19 14:15 02/27/20 14:14 Dextrose (Dextrose 50%) 50 ml Q30M PRN IV Hypoglycemia 11/29/19 14:15 02/27/20 14:14 Fentanyl Citrate 2500 mcg/Sodium Chloride 250 ml @ 0 mls/hr Q24H IV 12/20/19 00:00 12/27/19 00:00 12/21/19 21:09 Fluconazole/ Sodium Chloride 100 ml @ 100 mls/hr Q24H IV 12/16/19 22:00 12/23/19 21:59 12/21/19 20:07 Folic Acid (Folate) 1 mg DAILY NG 12/18/19 09:00 01/17/20 08:59 12/22/19 08:22 Hydralazine HCl (Apresoline) 10 mg Q4H PRN IV For High Blood Pressure 11/29/19 15:15 02/27/20 15:14 Loperamide HCl (Imodium) 2 mg Q6H PRN NG Diarrhea 12/12/19 12:45 01/11/20 12:44 Meropenem 500 mg/ Sodium Chloride 50 ml @ 100 mls/hr Q24H IVPB 12/20/19 21:30 12/25/19 21:29 12/21/19 20:06 Midazolam HCl 100 ml @ 0 mls/hr Q24H PRN IV Restlessness 12/16/19 10:45 03/15/20 10:44 12/22/19 10:12 Midodrine (Pro-Amatine) 10 mg THREE TIMES A DAY ORAL 12/12/19 13:00 03/11/20 12:59 12/22/19 08:21 Norepinephrine Bitartrate 8 mg/ Dextrose 250 ml @ 0 mls/hr Q24H IV 12/18/19 09:00 01/17/20 08:59 12/21/19 23:28 Ondansetron HCl (Zofran) 4 mg Q6H PRN IVP Nausea & Vomiting 11/29/19 14:15 12/29/19 14:14 Pantoprazole (Protonix) 40 mg DAILY IVP 11/30/19 12:15 12/30/19 12:14 12/22/19 08:21 Sevelamer Carbonate (Renvela) 800 mg THREE TIMES A DAY NG 12/22/19 13:00 03/21/20 12:59 Vancomycin HCl (Vanco rx to dose) 1 ea DAILY PRN MISC Per rx protocol 12/08/19 19:30 01/07/20 19:29 Vitamin B Complex/ Vit C/Folic Acid (Nephrovite) 1 tab DAILY NG 12/16/19 09:00 01/15/20 08:59 12/22/19 08:21 Laboratory Tests 12/22/19 04:00: White Blood Count 32.9*H, Red Blood Count 3.03L, Hemoglobin 9.0L, Hematocrit 28.2L, Mean Corpuscular Volume 93, Mean Corpuscular Hemoglobin 29.8, Mean Corpuscular Hemoglobin Concent 32.0, Red Cell Distribution Width 14.7, Platelet Count 255, Mean Platelet Volume 7.2, Neutrophils (%) (Auto) , Lymphocytes (%) ( Auto) , Monocytes (%) (Auto) , Eosinophils (%) (Auto) , Basophils (%) (Auto) , Differential Total Cells Counted 100, Neutrophils % (Manual) 89H, Lymphocytes % (Manual) 6L, Monocytes % (Manual) 5, Eosinophils % (Manual) 0, Basophils % ( Manual) 0, Band Neutrophils 0, Platelet Estimate Adequate, Platelet Morphology Normal, Polychromasia 1+, Anisocytosis 1+, D-Dimer 15.39H, Sodium Level 138, Potassium Level 3.8, Chloride Level 97L, Carbon Dioxide Level 35H, Anion Gap 7, Blood Urea Nitrogen 31H, Creatinine 2.9H, Estimat Glomerular Filtration Rate 22.5, Glucose Level 110H, Calcium Level 8.6, Phosphorus Level 6.4H, Magnesium Level 2.4, Ferritin 769H, Total Bilirubin 0.5, Aspartate Amino Transf (AST/SGOT ) 62H, Alanine Aminotransferase (ALT/SGPT) 53, Alkaline Phosphatase 325H, Lactate Dehydrogenase 436H, Total Creatine Kinase 372H, Total Protein 7.2, Albumin 2.5L, Globulin 4.7, Albumin/Globulin Ratio 0.5L Height (Feet): 5 Height (Inches): 6.00 Weight (Pounds): 163 Objective stable no bleeding at prepuce barnes indwelling, marge urine Kai Berger MD December 22, 2019 12:18
[2019-12-22] MEDS: Renvela 800mg Pkt NG SCH ×2 (12:31→17:05)
--- NOTE | 2019-12-22 12:42 | Hematology/Onc Progress Note ---
Assessment/Plan Assessment/Plan # Leukocytosis/elevated white blood cell count, unspecified likely related to underlying stress reaction and addition of infection, COVID19++ on vent, intubated --> have reviewed peripheral smear and bandemia/neutrophilia noted --> continue antibiotics if they have been started by ID team --> on broad spectrum abx cefepime/flag/vanc-->katie/vanc/difluc --> monitor for resolution --> smear is noted, with metamyelocytes --> wbc trend 18-->24-->32.9-->34k-->27->26-->32 --> ID is aware --> again ordered peripheral smear for path review-->reviewed and no blasts noted # Anemia of chronic disease due to underlying chronic medical issues, multifactorial v Gi bleed --> Anemia workup has been ordered, rule out gi bleed --> No evidence of hemolysis is noted, peripheral smear has been reviewed. --> Hgb goal >7. Transfuse prn. --> Epogen or iron at this time is not particularly indicated --> Medications have been reviewed --> low threshold for gi evaluation in case has occult + ==> hgb trend 11-->10.7-->10.4-->9.3-->9.1 # Thrombocytopenia also likely covid related --> supportive care --> plt 149-->164k-->154->195 --> smear # Acute Hypoxic Respiratory Failure s/p intubation --> now on vent --> as per Dr. Cortes, weaning prn # COVID19 positive --> abx # Pneumomediastinum --> monitor for expansion --> on vent # Subcutaneous emphysema --> too high risk for bedside thoracostomy # ALBARO on ckd --> hd as needed --> per renal # femoral HD cath placed 12/04 --> hd prn # Dvt ppx scds ANDREW Rn and appreciate consultation Subjective Allergies: Coded Allergies: No Known Allergies (Unverified , 11/29/19) All Systems: reviewed and negative except above Subjective 12/12 remains on vent, ogtube, barnes and rectal tube emptied, right fem jia line 12/14 icu, prone, levo gtt, multiple abx, labs reviewed 12/15 nonv, no bleeding, remains in vent, no bleeding, wbc high, on abx per id 12/16 nonv, on vent, ng, rectal tube, wbc still 34k 12/17 icu, levo gtt, on katie/vanc, tachy 12/18 in icu, on ng tube feeds, vent, no bleeding, jia in place 12/19 in the icu, no bleeding, ngt, with rectal tube, no bleeding ebc 28k 12/21 is with higer wbc, on katie/vanc/diflucan, id aware, on vent Objective Objective Current Medications Medications (Trade) Dose Ordered Sig/Vicki Route PRN Reason Start Time Stop Time Status Last Admin Dose Admin Acetaminophen (Tylenol) 650 mg Q4H PRN NG Temp >100.5 12/06/19 14:15 01/05/20 14:14 12/22/19 03:49 Acetaminophen (Tylenol) 650 mg Q4H PRN RECTAL Mild Pain (Pain Scale 1-3) 12/04/19 11:45 01/03/20 11:44 12/06/19 19:17 Chlorhexidine Gluconate (Arely-Hex 2%) 1 applic DAILY@2000 TOPIC 12/05/19 20:00 03/04/20 19:59 12/21/19 20:06 Dextrose (Dextrose 50%) 25 ml Q30M PRN IV Hypoglycemia 11/29/19 14:15 02/27/20 14:14 Dextrose (Dextrose 50%) 50 ml Q30M PRN IV Hypoglycemia 11/29/19 14:15 02/27/20 14:14 Fentanyl Citrate 2500 mcg/Sodium Chloride 250 ml @ 0 mls/hr Q24H IV 12/20/19 00:00 12/27/19 00:00 12/21/19 21:09 Fluconazole/ Sodium Chloride 100 ml @ 100 mls/hr Q24H IV 12/16/19 22:00 12/23/19 21:59 12/21/19 20:07 Folic Acid (Folate) 1 mg DAILY NG 12/18/19 09:00 01/17/20 08:59 12/22/19 08:22 Hydralazine HCl (Apresoline) 10 mg Q4H PRN IV For High Blood Pressure 11/29/19 15:15 02/27/20 15:14 Loperamide HCl (Imodium) 2 mg Q6H PRN NG Diarrhea 12/12/19 12:45 01/11/20 12:44 Meropenem 500 mg/ Sodium Chloride 50 ml @ 100 mls/hr Q24H IVPB 12/20/19 21:30 12/25/19 21:29 12/21/19 20:06 Midazolam HCl 100 ml @ 0 mls/hr Q24H PRN IV Restlessness 12/16/19 10:45 03/15/20 10:44 12/22/19 10:12 Midodrine (Pro-Amatine) 10 mg THREE TIMES A DAY ORAL 12/12/19 13:00 03/11/20 12:59 12/22/19 12:31 Norepinephrine Bitartrate 8 mg/ Dextrose 250 ml @ 0 mls/hr Q24H IV 12/18/19 09:00 01/17/20 08:59 12/21/19 23:28 Ondansetron HCl (Zofran) 4 mg Q6H PRN IVP Nausea & Vomiting 11/29/19 14:15 12/29/19 14:14 Pantoprazole (Protonix) 40 mg DAILY IVP 11/30/19 12:15 12/30/19 12:14 12/22/19 08:21 Sevelamer Carbonate (Renvela) 800 mg THREE TIMES A DAY NG 12/22/19 13:00 03/21/20 12:59 12/22/19 12:31 Vancomycin HCl (Vanco rx to dose) 1 ea DAILY PRN MISC Per rx protocol 12/08/19 19:30 01/07/20 19:29 Vitamin B Complex/ Vit C/Folic Acid (Nephrovite) 1 tab DAILY NG 12/16/19 09:00 01/15/20 08:59 12/22/19 08:21 Last 24 Hour Vital Signs Date Time Temp Pulse Resp B/P (MAP) Pulse Ox O2 Delivery O2 Flow Rate FiO2 12/22/19 12:00 98.6 117 23 107/52 (70) 100 12/22/19 12:00 Mechanical Ventilator 12/22/19 12:00 100 12/22/19 12:00 118 12/22/19 11:30 115 23 110/55 (73) 100 12/22/19 11:00 114 21 114/56 (75) 100 12/22/19 10:35 111 22 65 12/22/19 10:28 112 21 116/50 (72) 100 12/22/19 10:12 24 Mechanical Ventilator 100 12/22/19 10:00 109/52 12/22/19 10:00 22 Non-Rebreather 100 12/22/19 10:00 111 22 109/52 (71) 100 12/22/19 09:30 111 22 106/54 (71) 100 12/22/19 09:30 111 21 101/51 (68) 100 12/22/19 09:00 101/51 12/22/19 09:00 22 Mechanical Ventilator 100 12/22/19 09:00 111 21 101/51 (68) 100 12/22/19 08:51 111 12/22/19 08:30 112 22 97/52 (67) 100 12/22/19 08:00 100 12/22/19 08:00 99/47 12/22/19 08:00 22 Mechanical Ventilator 100 12/22/19 08:00 99.2 113 22 99/47 (64) 100 12/22/19 08:00 111 12/22/19 08:00 Mechanical Ventilator 12/22/19 07:30 112 23 97/54 (68) 100 12/22/19 07:00 111 22 65 12/22/19 07:00 21 Mechanical Ventilator 100 12/22/19 07:00 100/48 12/22/19 07:00 21 Mechanical Ventilator 100 12/22/19 07:00 111 21 100/48 (65) 100 12/22/19 06:30 109 22 100/47 (64) 100 12/22/19 06:00 22 Mechanical Ventilator 100 12/22/19 06:00 107/52 12/22/19 06:00 22 Mechanical Ventilator 100 12/22/19 06:00 105 22 107/52 (70) 100 12/22/19 05:30 106 23 95/49 (64) 100 12/22/19 05:00 25 Mechanical Ventilator 100 12/22/19 05:00 92/51 12/22/19 05:00 25 Mechanical Ventilator 100 12/22/19 05:00 108 25 92/51 (65) 100 12/22/19 04:30 98.9 110 25 90/50 (63) 100 12/22/19 04:19 98.9 5/10/20 04:00 100 12/22/19 04:00 29 Mechanical Ventilator 100 12/22/19 04:00 99/57 12/22/19 04:00 29 Mechanical Ventilator 100 12/22/19 04:00 113 12/22/19 04:00 Mechanical Ventilator 12/22/19 04:00 99.2 112 29 99/57 (71) 100 12/22/19 03:30 112 27 100/51 (67) 100 12/22/19 03:00 112 23 94/51 (65) 100 12/22/19 03:00 23 Mechanical Ventilator 100 12/22/19 03:00 94/51 12/22/19 03:00 23 Mechanical Ventilator 100 12/22/19 02:30 113 26 98/51 (67) 100 12/22/19 02:00 114 22 105/52 (69) 100 12/22/19 02:00 22 Mechanical Ventilator 100 12/22/19 02:00 105/52 12/22/19 02:00 22 Mechanical Ventilator 100 12/22/19 01:38 117 20 65 12/22/19 01:30 118 25 99/55 (70) 100 12/22/19 01:00 21 Mechanical Ventilator 100 12/22/19 01:00 102/55 12/22/19 01:00 21 Mechanical Ventilator 100 12/22/19 01:00 118 21 102/55 (71) 100 12/22/19 00:30 115 23 109/61 (77) 100 12/22/19 00:00 100 12/22/19 00:00 116 12/22/19 00:00 99.8 115 39 109/56 (73) 93 12/22/19 00:00 39 Mechanical Ventilator 100 12/22/19 00:00 109/59 12/22/19 00:00 39 Mechanical Ventilator 100 12/22/19 00:00 Mechanical Ventilator 12/21/19 23:30 115 39 109/57 (74) 95 12/21/19 23:28 103/56 12/21/19 23:00 99.9 115 38 103/56 (72) 95 12/21/19 22:42 118 40 65 12/21/19 22:30 111 22 94/53 (67) 95 12/21/19 22:00 118 38 116/59 (78) 94 12/21/19 22:00 38 Mechanical Ventilator 65 12/21/19 22:00 116/59 12/21/19 22:00 38 Mechanical Ventilator 65 12/21/19 21:30 119 40 111/55 (73) 95 12/21/19 21:09 38 Mechanical Ventilator 65 12/21/19 21:00 39 Mechanical Ventilator 65 12/21/19 21:00 104/57 12/21/19 21:00 39 Mechanical Ventilator 65 12/21/19 21:00 99.6 119 39 104/57 (73) 95 12/21/19 20:30 120 38 117/61 (79) 96 12/21/19 20:00 122 39 106/56 (73) 95 12/21/19 20:00 65 12/21/19 20:00 121 12/21/19 20:00 Mechanical Ventilator 12/21/19 20:00 39 Mechanical Ventilator 65 12/21/19 20:00 106/56 12/21/19 20:00 39 Mechanical Ventilator 65 12/21/19 19:30 122 38 117/61 (79) 95 12/21/19 19:06 122 38 65 12/21/19 19:00 125 38 107/64 (78) 93 12/21/19 19:00 36 Mechanical Ventilator 65 12/21/19 19:00 107/64 12/21/19 19:00 36 Mechanical Ventilator 65 12/21/19 18:30 119 38 119/63 (81) 98 12/21/19 18:00 38 Mechanical Ventilator 65 12/21/19 18:00 126/63 12/21/19 18:00 38 Mechanical Ventilator 65 12/21/19 18:00 118 38 126/63 (84) 93 12/21/19 17:30 119 38 127/63 (84) 91 12/21/19 17:00 37 Non-Rebreather 65 12/21/19 17:00 127/63 12/21/19 17:00 37 65 12/21/19 17:00 98.3 112 38 127/63 (84) 93 12/21/19 16:30 112 36 120/60 (80) 92 12/21/19 16:00 105 36 118/60 (79) 94 12/21/19 16:00 35 Mechanical Ventilator 65 12/21/19 16:00 118/60 12/21/19 16:00 35 Mechanical Ventilator 65 12/21/19 16:00 Mechanical Ventilator 12/21/19 16:00 112 12/21/19 15:30 108 36 100/49 (66) 93 12/21/19 15:08 105 35 65 12/21/19 15:00 105 28 124/55 (78) 91 12/21/19 15:00 34 Mechanical Ventilator 65 12/21/19 15:00 124/55 12/21/19 15:00 34 Mechanical Ventilator 65 12/21/19 14:15 103 28 118/60 (79) 100 12/21/19 14:00 29 Mechanical Ventilator 65 12/21/19 14:00 118/57 12/21/19 14:00 29 65 12/21/19 14:00 101 29 118/57 (77) 100 12/21/19 13:45 104 29 121/60 (80) 100 12/21/19 13:30 104 29 122/66 (84) 100 12/21/19 13:30 65 12/21/19 13:15 102 30 132/61 (84) 100 12/21/19 13:14 28 Mechanical Ventilator 80 12/21/19 13:00 100 29 144/70 (94) 100 12/21/19 13:00 30 Mechanical Ventilator 65 12/21/19 13:00 144/70 12/21/19 13:00 30 Mechanical Ventilator 65 12/21/19 12:45 102 30 151/74 (99) 100 12/21/19 12:45 151/74 12/21/19 12:30 98.7 105 29 159/75 (103) 100 12/21/19 12:08 97/56 12/21/19 12:00 Mechanical Ventilator 12/21/19 12:00 30 Mechanical Ventilator 80 12/21/19 12:00 97/56 12/21/19 12:00 30 80 12/21/19 12:00 114 12/21/19 12:00 114 30 97/56 (70) 100 12/21/19 12:00 80 12/21/19 11:33 103 30 119/58 (78) 100 12/21/19 11:30 99 29 119/58 (78) 100 12/21/19 11:03 98 29 80 12/21/19 11:01 99 30 127/66 (86) 100 12/21/19 11:00 29 Mechanical Ventilator 80 12/21/19 11:00 122/67 12/21/19 11:00 29 Mechanical Ventilator 80 12/21/19 10:30 100 29 125/64 (84) 100 12/21/19 10:00 101 30 133/65 (87) 100 12/21/19 10:00 31 Mechanical Ventilator 80 12/21/19 10:00 131/65 12/21/19 10:00 31 Mechanical Ventilator 80 12/21/19 09:30 99 31 128/68 (88) 100 12/21/19 09:00 31 Mechanical Ventilator 80 12/21/19 09:00 135/67 12/21/19 09:00 31 80 12/21/19 09:00 100 31 131/69 (89) 100 12/21/19 08:30 101 33 131/72 (91) 100 12/21/19 08:00 99 12/21/19 08:00 Mechanical Ventilator 12/21/19 08:00 34 Mechanical Ventilator 80 12/21/19 08:00 133/64 12/21/19 08:00 34 100 12/21/19 08:00 80 12/21/19 08:00 98.6 100 33 130/62 (84) 100 12/21/19 07:34 100 12/21/19 07:30 101 33 134/65 (88) 100 12/21/19 07:01 100 34 80 12/21/19 07:00 32 Mechanical Ventilator 80 12/21/19 07:00 130/69 12/21/19 07:00 32 Mechanical Ventilator 80 12/21/19 07:00 99 32 131/68 (89) 100 12/21/19 06:30 100 30 126/68 (87) 100 12/21/19 06:00 101 29 123/64 (83) 100 12/21/19 06:00 29 Mechanical Ventilator 80 12/21/19 06:00 123/64 12/21/19 06:00 29 Mechanical Ventilator 80 12/21/19 05:30 100 28 125/61 (82) 100 12/21/19 05:00 97 27 128/65 (86) 100 12/21/19 05:00 27 Mechanical Ventilator 80 12/21/19 05:00 128/65 12/21/19 05:00 27 Mechanical Ventilator 80 12/21/19 04:58 27 Mechanical Ventilator 80 12/21/19 04:30 94 26 118/57 (77) 100 12/21/19 04:00 Mechanical Ventilator 12/21/19 04:00 98.4 93 24 120/59 (79) 100 12/21/19 04:00 24 Mechanical Ventilator 80 12/21/19 04:00 120/59 12/21/19 04:00 24 Mechanical Ventilator 80 12/21/19 04:00 93 12/21/19 04:00 80 12/21/19 03:30 94 26 117/58 (77) 100 12/21/19 03:10 89 30 80 12/21/19 03:00 21 Mechanical Ventilator 80 12/21/19 03:00 113/60 12/21/19 03:00 21 Mechanical Ventilator 80 12/21/19 03:00 91 21 113/60 (77) 100 12/21/19 02:30 90 24 115/57 (76) 100 12/21/19 02:12 115/59 12/21/19 02:00 23 Mechanical Ventilator 80 12/21/19 02:00 115/59 12/21/19 02:00 23 Mechanical Ventilator 80 12/21/19 02:00 88 23 115/59 (77) 100 12/21/19 01:30 88 23 115/60 (78) 100 12/21/19 01:00 22 Mechanical Ventilator 80 12/21/19 01:00 115/58 12/21/19 01:00 22 Mechanical Ventilator 80 12/21/19 01:00 89 22 115/58 (77) 100 12/21/19 00:30 88 23 116/60 (78) 100 12/21/19 00:00 98.8 92 22 121/61 (81) 100 12/21/19 00:00 Mechanical Ventilator 12/21/19 00:00 20 Mechanical Ventilator 80 12/21/19 00:00 121/61 12/21/19 00:00 20 80 12/21/19 00:00 92 12/20/19 23:45 94 25 129/56 (80) 100 12/20/19 23:30 96 26 124/60 (81) 100 12/20/19 23:22 106 33 80 12/20/19 23:15 101 23 122/60 (80) 100 12/20/19 23:00 20 Mechanical Ventilator 80 12/20/19 23:00 122/60 5/8/20 23:00 20 80 12/20/19 23:00 102 31 116/62 (80) 100 12/20/19 22:45 106 29 123/61 (81) 100 12/20/19 22:30 109 30 111/62 (78) 100 12/20/19 22:00 104 27 128/61 (83) 100 12/20/19 22:00 27 Mechanical Ventilator 80 12/20/19 22:00 128/61 12/20/19 22:00 27 Mechanical Ventilator 80 12/20/19 21:30 100 27 119/65 (83) 100 12/20/19 21:00 25 Mechanical Ventilator 80 12/20/19 21:00 125/66 12/20/19 21:00 25 Mechanical Ventilator 80 12/20/19 21:00 90 25 125/66 (85) 100 12/20/19 20:30 88 30 129/67 (87) 100 12/20/19 20:00 80 12/20/19 20:00 Mechanical Ventilator 12/20/19 20:00 28 Mechanical Ventilator 80 12/20/19 20:00 131/67 12/20/19 20:00 28 Mechanical Ventilator 80 12/20/19 20:00 98.9 86 28 131/67 (88) 100 12/20/19 20:00 100 12/20/19 19:30 84 30 133/66 (88) 98 12/20/19 19:24 93 34 80 12/20/19 19:00 89 33 131/64 (86) 99 12/20/19 19:00 24 Mechanical Ventilator 80 12/20/19 19:00 131/64 12/20/19 19:00 26 Mechanical Ventilator 80 12/20/19 18:30 94 33 131/62 (85) 97 12/20/19 18:00 26 Mechanical Ventilator 80 12/20/19 18:00 123/59 12/20/19 18:00 24 Mechanical Ventilator 80 12/20/19 18:00 98 33 128/55 (79) 96 12/20/19 17:51 99.0 12/20/19 17:30 95 31 120/54 (76) 99 12/20/19 17:21 29 Mechanical Ventilator 15.0 80 12/20/19 17:00 91 33 127/59 (81) 99 12/20/19 17:00 26 Mechanical Ventilator 80 12/20/19 17:00 116/52 12/20/19 17:00 26 Mechanical Ventilator 80 12/20/19 16:39 91 32 80 12/20/19 16:32 117/51 12/20/19 16:30 89 30 113/53 (73) 100 12/20/19 16:00 80 12/20/19 16:00 24 Mechanical Ventilator 80 12/20/19 16:00 122/60 12/20/19 16:00 26 Mechanical Ventilator 80 12/20/19 16:00 Mechanical Ventilator 12/20/19 16:00 85 12/20/19 16:00 98.5 76 33 122/60 (80) 97 12/20/19 15:30 84 31 118/56 (76) 100 12/20/19 15:00 24 Mechanical Ventilator 80 12/20/19 15:00 117/55 12/20/19 15:00 26 Mechanical Ventilator 80 12/20/19 15:00 83 24 118/55 (76) 100 12/20/19 14:38 93 29 80 12/20/19 14:30 89 32 117/51 (73) 100 12/20/19 14:00 88 30 118/56 (76) 100 12/20/19 14:00 24 Mechanical Ventilator 80 12/20/19 14:00 118/56 12/20/19 14:00 26 Mechanical Ventilator 80 12/20/19 13:30 86 32 117/55 (75) 100 12/20/19 13:19 90 31 80 12/20/19 13:00 24 Mechanical Ventilator 80 12/20/19 13:00 119/57 12/20/19 13:00 28 Mechanical Ventilator 80 12/20/19 13:00 89 31 112/59 (76) 100 Intake and Output 12/21/19 12/22/19 19:00 07:00 Intake Total 1336.875 ml 1187.50 ml Output Total 70 ml 2005 ml Balance 1266.875 ml -817.50 ml Free Water 100 ml 200 ml IV Total 666.875 ml 567.50 ml Tube Feeding 420 ml 420 ml Other 150 ml Output Urine Total 0 ml 5 ml Stool Total 70 ml Hemodialysis UF 2000 ml Labs Test 12/20/19 04:45 12/21/19 04:00 12/22/19 04:00 White Blood Count 25.8 K/UL (4.8-10.8) 28.2 K/UL (4.8-10.8) 32.9 K/UL (4.8-10.8) Red Blood Count 3.03 M/UL (4.70-6.10) 3.06 M/UL (4.70-6.10) 3.03 M/UL (4.70-6.10) Hemoglobin 9.1 G/DL (14.2-18.0) 9.5 G/DL (14.2-18.0) 9.0 G/DL (14.2-18.0) Hematocrit 27.9 % (42.0-52.0) 28.5 % (42.0-52.0) 28.2 % (42.0-52.0) Mean Corpuscular Volume 92 FL (80-99) 93 FL (80-99) 93 FL (80-99) Mean Corpuscular Hemoglobin 30.2 PG (27.0-31.0) 30.9 PG (27.0-31.0) 29.8 PG (27.0-31.0) Mean Corpuscular Hemoglobin Concent 32.8 G/DL (32.0-36.0) 33.2 G/DL (32.0-36.0) 32.0 G/DL (32.0-36.0) Red Cell Distribution Width 14.7 % (11.6-14.8) 14.4 % (11.6-14.8) 14.7 % (11.6-14.8) Platelet Count 195 K/UL (150-450) 197 K/UL (150-450) 255 K/UL (150-450) Mean Platelet Volume 7.6 FL (6.5-10.1) 7.2 FL (6.5-10.1) 7.2 FL (6.5-10.1) Neutrophils (%) (Auto) % (45.0-75.0) % (45.0-75.0) % (45.0-75.0) Lymphocytes (%) (Auto) % (20.0-45.0) % (20.0-45.0) % (20.0-45.0) Monocytes (%) (Auto) % (1.0-10.0) % (1.0-10.0) % (1.0-10.0) Eosinophils (%) (Auto) % (0.0-3.0) % (0.0-3.0) % (0.0-3.0) Basophils (%) (Auto) % (0.0-2.0) % (0.0-2.0) % (0.0-2.0) Differential Total Cells Counted 100 100 100 Neutrophils % (Manual) 91 % (45-75) 86 % (45-75) 89 % (45-75) Lymphocytes % (Manual) 4 % (20-45) 7 % (20-45) 6 % (20-45) Monocytes % (Manual) 5 % (1-10) 7 % (1-10) 5 % (1-10) Eosinophils % (Manual) 0 % (0-3) 0 % (0-3) 0 % (0-3) Basophils % (Manual) 0 % (0-2) 0 % (0-2) 0 % (0-2) Band Neutrophils 0 % (0-8) 0 % (0-8) 0 % (0-8) Platelet Estimate Adequate Adequate Adequate Platelet Morphology Normal Normal Normal Hypochromasia 2+ 2+ Anisocytosis 1+ 1+ 1+ Sodium Level 134 MMOL/L (136-145) 135 MMOL/L (136-145) 138 MMOL/L (136-145) Potassium Level 4.4 MMOL/L (3.5-5.1) 4.2 MMOL/L (3.5-5.1) 3.8 MMOL/L (3.5-5.1) Chloride Level 96 MMOL/L (98-107) 96 MMOL/L (98-107) 97 MMOL/L (98-107) Carbon Dioxide Level 33 MMOL/L (21-32) 36 MMOL/L (21-32) 35 MMOL/L (21-32) Anion Gap 5 mmol/L (5-15) 3 mmol/L (5-15) 7 mmol/L (5-15) Blood Urea Nitrogen 50 mg/dL (7-18) 30 mg/dL (7-18) 31 mg/dL (7-18) Creatinine 3.4 MG/DL (0.55-1.30) 2.4 MG/DL (0.55-1.30) 2.9 MG/DL (0.55-1.30) Estimat Glomerular Filtration Rate 18.7 mL/min (>60) 27.9 mL/min (>60) 22.5 mL/min (>60) Glucose Level 129 MG/DL (74-106) 110 MG/DL (74-106) 110 MG/DL (74-106) Calcium Level 8.7 MG/DL (8.5-10.1) 7.8 MG/DL (8.5-10.1) 8.6 MG/DL (8.5-10.1) Phosphorus Level 5.3 MG/DL (2.5-4.9) 6.4 MG/DL (2.5-4.9) Magnesium Level 2.5 MG/DL (1.8-2.4) 2.4 MG/DL (1.8-2.4) Total Bilirubin 0.6 MG/DL (0.2-1.0) 0.5 MG/DL (0.2-1.0) Aspartate Amino Transf (AST/SGOT) 50 U/L (15-37) 62 U/L (15-37) Alanine Aminotransferase (ALT/SGPT) 40 U/L (12-78) 53 U/L (12-78) Alkaline Phosphatase 254 U/L (46-116) 325 U/L (46-116) Total Protein 6.7 G/DL (6.4-8.2) 7.2 G/DL (6.4-8.2) Albumin 2.5 G/DL (3.4-5.0) 2.5 G/DL (3.4-5.0) Globulin 4.2 g/dL 4.7 g/dL Albumin/Globulin Ratio 0.6 (1.0-2.7) 0.5 (1.0-2.7) Arterial Blood pH 7.238 (7.350-7.450) Arterial Blood Partial Pressure CO2 82.6 mmHg (35.0-45.0) Arterial Blood Partial Pressure O2 91.8 mmHg (75.0-100.0) Arterial Blood HCO3 34.3 mmol/L (22.0-26.0) Arterial Blood Oxygen Saturation 96.2 % (95-100) Arterial Blood Base Excess 5.2 (-2-2) Melecio Test Positive Random Vancomycin Level 7.8 ug/mL Polychromasia 1+ D-Dimer 15.39 mg/L FEU (0.00-0.49) Ferritin 769 NG/ML (8-388) Lactate Dehydrogenase 436 U/L (81-234) Total Creatine Kinase 372 U/L (26-308) Height (Feet): 5 Height (Inches): 6.00 Weight (Pounds): 163 Objective General: prone position on vent Heent: nc, at+ ng Respiratory: normal breath sounds, no retraction, vent++ Cardiovascular: no edema, tachycardia Gastrointestinal: normal inspection Neurologic unresponsive on vent Psychiatric: judgement/insight normal, memory normal, mood/affect normal, no suicidal/homicidal ideation Ext: with hd fem jia in place : + barnes and rectal tube Mj Zhu MD December 22, 2019 12:42
--- NOTE | 2019-12-22 12:46 | GI Progress Note ---
Assessment/Plan Problems: (1) Suspected COVID-19 virus infection ICD Codes: R68.89 - Other general symptoms and signs SNOMED: 158859764 (2) Elevated LFTs ICD Codes: R79.89 - Other specified abnormal findings of blood chemistry SNOMED: 162447750, [id number] Status: unchanged Status Narrative Discussed with Dr. Rdz. Assessment/Plan NGTF rectal tube in place elevated LFTS most likely due to shock liver>>> improving repeat labs in am hepatitis panel>>>Neg fu nephrology recent labs and notes reviewed D/W the nurse The patient was seen and examined at bedside and all new and available data was reviewed in the patients chart. I agree with the above findings, impression and plan. (Patient seen earlier today. Signature stamp does not reflect patient encounter time.). - João Rdz MD Subjective Subjective limited Objective Last 24 Hour Vital Signs Date Time Temp Pulse Resp B/P (MAP) Pulse Ox O2 Delivery O2 Flow Rate FiO2 12/22/19 12:00 98.6 117 23 107/52 (70) 100 12/22/19 12:00 Mechanical Ventilator 12/22/19 12:00 100 12/22/19 12:00 118 12/22/19 11:30 115 23 110/55 (73) 100 12/22/19 11:00 114 21 114/56 (75) 100 12/22/19 10:35 111 22 65 12/22/19 10:28 112 21 116/50 (72) 100 12/22/19 10:12 24 Mechanical Ventilator 100 12/22/19 10:00 109/52 12/22/19 10:00 22 Non-Rebreather 100 12/22/19 10:00 111 22 109/52 (71) 100 12/22/19 09:30 111 22 106/54 (71) 100 12/22/19 09:30 111 21 101/51 (68) 100 12/22/19 09:00 101/51 12/22/19 09:00 22 Mechanical Ventilator 100 12/22/19 09:00 111 21 101/51 (68) 100 12/22/19 08:51 111 12/22/19 08:30 112 22 97/52 (67) 100 12/22/19 08:00 100 12/22/19 08:00 99/47 12/22/19 08:00 22 Mechanical Ventilator 100 12/22/19 08:00 99.2 113 22 99/47 (64) 100 12/22/19 08:00 111 12/22/19 08:00 Mechanical Ventilator 12/22/19 07:30 112 23 97/54 (68) 100 12/22/19 07:00 111 22 65 12/22/19 07:00 21 Mechanical Ventilator 100 12/22/19 07:00 100/48 12/22/19 07:00 21 Mechanical Ventilator 100 12/22/19 07:00 111 21 100/48 (65) 100 12/22/19 06:30 109 22 100/47 (64) 100 12/22/19 06:00 22 Mechanical Ventilator 100 12/22/19 06:00 107/52 12/22/19 06:00 22 Mechanical Ventilator 100 12/22/19 06:00 105 22 107/52 (70) 100 12/22/19 05:30 106 23 95/49 (64) 100 12/22/19 05:00 25 Mechanical Ventilator 100 12/22/19 05:00 92/51 12/22/19 05:00 25 Mechanical Ventilator 100 12/22/19 05:00 108 25 92/51 (65) 100 12/22/19 04:30 98.9 110 25 90/50 (63) 100 12/22/19 04:19 98.9 12/22/19 04:00 100 12/22/19 04:00 29 Mechanical Ventilator 100 12/22/19 04:00 99/57 12/22/19 04:00 29 Mechanical Ventilator 100 12/22/19 04:00 113 12/22/19 04:00 Mechanical Ventilator 12/22/19 04:00 99.2 112 29 99/57 (71) 100 12/22/19 03:30 112 27 100/51 (67) 100 12/22/19 03:00 112 23 94/51 (65) 100 12/22/19 03:00 23 Mechanical Ventilator 100 12/22/19 03:00 94/51 12/22/19 03:00 23 Mechanical Ventilator 100 12/22/19 02:30 113 26 98/51 (67) 100 12/22/19 02:00 114 22 105/52 (69) 100 12/22/19 02:00 22 Mechanical Ventilator 100 12/22/19 02:00 105/52 12/22/19 02:00 22 Mechanical Ventilator 100 12/22/19 01:38 117 20 65 12/22/19 01:30 118 25 99/55 (70) 100 12/22/19 01:00 21 Mechanical Ventilator 100 12/22/19 01:00 102/55 12/22/19 01:00 21 Mechanical Ventilator 100 12/22/19 01:00 118 21 102/55 (71) 100 12/22/19 00:30 115 23 109/61 (77) 100 12/22/19 00:00 100 12/22/19 00:00 116 12/22/19 00:00 99.8 115 39 109/56 (73) 93 12/22/19 00:00 39 Mechanical Ventilator 100 12/22/19 00:00 109/59 12/22/19 00:00 39 Mechanical Ventilator 100 12/22/19 00:00 Mechanical Ventilator 12/21/19 23:30 115 39 109/57 (74) 95 12/21/19 23:28 103/56 12/21/19 23:00 99.9 115 38 103/56 (72) 95 12/21/19 22:42 118 40 65 12/21/19 22:30 111 22 94/53 (67) 95 12/21/19 22:00 118 38 116/59 (78) 94 12/21/19 22:00 38 Mechanical Ventilator 65 12/21/19 22:00 116/59 12/21/19 22:00 38 Mechanical Ventilator 65 12/21/19 21:30 119 40 111/55 (73) 95 12/21/19 21:09 38 Mechanical Ventilator 65 12/21/19 21:00 39 Mechanical Ventilator 65 12/21/19 21:00 104/57 12/21/19 21:00 39 Mechanical Ventilator 65 12/21/19 21:00 99.6 119 39 104/57 (73) 95 12/21/19 20:30 120 38 117/61 (79) 96 12/21/19 20:00 122 39 106/56 (73) 95 12/21/19 20:00 65 12/21/19 20:00 121 12/21/19 20:00 Mechanical Ventilator 12/21/19 20:00 39 Mechanical Ventilator 65 12/21/19 20:00 106/56 12/21/19 20:00 39 Mechanical Ventilator 65 12/21/19 19:30 122 38 117/61 (79) 95 12/21/19 19:06 122 38 65 12/21/19 19:00 125 38 107/64 (78) 93 12/21/19 19:00 36 Mechanical Ventilator 65 12/21/19 19:00 107/64 12/21/19 19:00 36 Mechanical Ventilator 65 12/21/19 18:30 119 38 119/63 (81) 98 12/21/19 18:00 38 Mechanical Ventilator 65 12/21/19 18:00 126/63 12/21/19 18:00 38 Mechanical Ventilator 65 12/21/19 18:00 118 38 126/63 (84) 93 12/21/19 17:30 119 38 127/63 (84) 91 12/21/19 17:00 37 Non-Rebreather 65 12/21/19 17:00 127/63 12/21/19 17:00 37 65 12/21/19 17:00 98.3 112 38 127/63 (84) 93 12/21/19 16:30 112 36 120/60 (80) 92 12/21/19 16:00 105 36 118/60 (79) 94 12/21/19 16:00 35 Mechanical Ventilator 65 12/21/19 16:00 118/60 12/21/19 16:00 35 Mechanical Ventilator 65 12/21/19 16:00 Mechanical Ventilator 12/21/19 16:00 112 12/21/19 15:30 108 36 100/49 (66) 93 12/21/19 15:08 105 35 65 12/21/19 15:00 105 28 124/55 (78) 91 12/21/19 15:00 34 Mechanical Ventilator 65 12/21/19 15:00 124/55 12/21/19 15:00 34 Mechanical Ventilator 65 12/21/19 14:15 103 28 118/60 (79) 100 12/21/19 14:00 29 Mechanical Ventilator 65 12/21/19 14:00 118/57 12/21/19 14:00 29 65 12/21/19 14:00 101 29 118/57 (77) 100 12/21/19 13:45 104 29 121/60 (80) 100 12/21/19 13:30 104 29 122/66 (84) 100 12/21/19 13:30 65 12/21/19 13:15 102 30 132/61 (84) 100 12/21/19 13:14 28 Mechanical Ventilator 80 12/21/19 13:00 100 29 144/70 (94) 100 12/21/19 13:00 30 Mechanical Ventilator 65 12/21/19 13:00 144/70 12/21/19 13:00 30 Mechanical Ventilator 65 12/21/19 12:45 102 30 151/74 (99) 100 12/21/19 12:45 151/74 Intake and Output 12/21/19 12/22/19 19:00 07:00 Intake Total 1336.875 ml 1187.50 ml Output Total 70 ml 2005 ml Balance 1266.875 ml -817.50 ml Free Water 100 ml 200 ml IV Total 666.875 ml 567.50 ml Tube Feeding 420 ml 420 ml Other 150 ml Output Urine Total 0 ml 5 ml Stool Total 70 ml Hemodialysis UF 2000 ml Laboratory Tests Test 12/22/19 04:00 White Blood Count 32.9 K/UL (4.8-10.8) *H Red Blood Count 3.03 M/UL (4.70-6.10) L Hemoglobin 9.0 G/DL (14.2-18.0) L Hematocrit 28.2 % (42.0-52.0) L Mean Corpuscular Volume 93 FL (80-99) Mean Corpuscular Hemoglobin 29.8 PG (27.0-31.0) Mean Corpuscular Hemoglobin Concent 32.0 G/DL (32.0-36.0) Red Cell Distribution Width 14.7 % (11.6-14.8) Platelet Count 255 K/UL (150-450) Mean Platelet Volume 7.2 FL (6.5-10.1) Neutrophils (%) (Auto) % (45.0-75.0) Lymphocytes (%) (Auto) % (20.0-45.0) Monocytes (%) (Auto) % (1.0-10.0) Eosinophils (%) (Auto) % (0.0-3.0) Basophils (%) (Auto) % (0.0-2.0) Differential Total Cells Counted 100 Neutrophils % (Manual) 89 % (45-75) H Lymphocytes % (Manual) 6 % (20-45) L Monocytes % (Manual) 5 % (1-10) Eosinophils % (Manual) 0 % (0-3) Basophils % (Manual) 0 % (0-2) Band Neutrophils 0 % (0-8) Platelet Estimate Adequate Platelet Morphology Normal Polychromasia 1+ Anisocytosis 1+ D-Dimer 15.39 mg/L FEU (0.00-0.49) H Sodium Level 138 MMOL/L (136-145) Potassium Level 3.8 MMOL/L (3.5-5.1) Chloride Level 97 MMOL/L (98-107) L Carbon Dioxide Level 35 MMOL/L (21-32) H Anion Gap 7 mmol/L (5-15) Blood Urea Nitrogen 31 mg/dL (7-18) H Creatinine 2.9 MG/DL (0.55-1.30) H Estimat Glomerular Filtration Rate 22.5 mL/min (>60) Glucose Level 110 MG/DL (74-106) H Calcium Level 8.6 MG/DL (8.5-10.1) Phosphorus Level 6.4 MG/DL (2.5-4.9) H Magnesium Level 2.4 MG/DL (1.8-2.4) Ferritin 769 NG/ML (8-388) H Total Bilirubin 0.5 MG/DL (0.2-1.0) Aspartate Amino Transf (AST/SGOT) 62 U/L (15-37) H Alanine Aminotransferase (ALT/SGPT) 53 U/L (12-78) Alkaline Phosphatase 325 U/L (46-116) H Lactate Dehydrogenase 436 U/L (81-234) H Total Creatine Kinase 372 U/L (26-308) H Total Protein 7.2 G/DL (6.4-8.2) Albumin 2.5 G/DL (3.4-5.0) L Globulin 4.7 g/dL Albumin/Globulin Ratio 0.5 (1.0-2.7) L Height (Feet): 5 Height (Inches): 6.00 Weight (Pounds): 163 General Appearance: no apparent distress Cardiovascular: tachycardia Respiratory/Chest: no respiratory distress Abdominal Exam: normal bowel sounds, non tender, soft, other - NGT, rectal tube Extremities: non-tender Ronda Gordillo [employer] December 22, 2019 12:46
[2019-12-22] MEDS: fentaNYL Citrate 2,500 MCG in NS 200 ML IV SCH (13:51)
[2019-12-22] MEDS ORDERED: Sterile Water Irrig 1000ml IRRIG ONE (14:51)
--- NOTE | 2019-12-22 15:00 | NUR ---
NURSE NOTES: Dr Noriega here to see the patient. Updated her with pt's current condition, including elevated WBC, mild fever, and abnormal labs. Lab orders received. Not able to draw blood peripherally. Will call lab to draw blood.
--- NOTE | 2019-12-22 16:30 | NUR ---
NURSE NOTES: Blood was drawn and sent to the lab. Cleaned and repositioned pt. Temp 99.4. Will continue to monitor. Will continue to monitor.
[2019-12-22 17:09] LABS: INR 0.9 (0.9-1.1)
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
--- NOTE | 2019-12-22 18:22 | Infectious Diseases Prog Note ---
Assessment/Plan Assessment/Plan ASSESSMENT AND PLAN: 1. covid-19 virus infection with pna, rule out bacterial pna, sepsis/shock, fevers, leukocytosis vent, respiratory failure, ? laboratory coordinator bacteremia vs contaminant, fio2-80%, on pressors leukocytosis worse, persistent fevers, fungemia risk, diarrhea, ? c.diff. - meropenem, vancomycin and diflucan, start po vancomycin - s/p hydroxychloroquine - monitor chest x-ray and labs - f/u c.diff., reculture patient - s/p tocilizumab - critical - getting HD - poor prognosis - communicated with Dr. Noriega 2. Hypertension. 3. No known allergies. 4. Social history negative. 5. Family history noncontributory. 6. MAR was noted. 7. Case discussed with RN. 8. Continue treatment per primary consultants. Subjective Constitutional: Reports: fever, other - on vent and pressors HEENT: Reports: congestion Respiratory: Reports: shortness of breath Cardiovascular: Reports: other Gastrointestinal/Abdominal: Reports: diarrhea, other - + rectal tube ; Denies: nausea, vomiting Neurologic: Reports: other - lethargic, poorly responsive Psychiatric: Reports: other - NA Skin: Denies: rash Hematologic: Denies: bleeding Musculoskeletal: Reports: other - NA Allergies: Coded Allergies: No Known Allergies (Unverified , 11/29/19) Objective Vital Signs Last 24 Hour Vital Signs Date Time Temp Pulse Resp B/P (MAP) Pulse Ox O2 Delivery O2 Flow Rate FiO2 12/22/19 18:00 117 24 121/58 (79) 100 12/22/19 17:30 119 25 112/55 (74) 100 12/22/19 17:00 120 25 112/54 (73) 100 12/22/19 17:00 23 Mechanical Ventilator 100 12/22/19 17:00 112/55 12/22/19 17:00 23 Mechanical Ventilator 100 12/22/19 16:30 120 25 117/54 (75) 100 12/22/19 16:00 100 12/22/19 16:00 Mechanical Ventilator 12/22/19 16:00 24 Mechanical Ventilator 100 12/22/19 16:00 114/58 12/22/19 16:00 24 Mechanical Ventilator 100 12/22/19 16:00 118 25 106/57 (73) 100 12/22/19 16:00 119 5/10/20 15:30 98.9 120 25 114/58 (76) 100 12/22/19 15:00 119 24 65 12/22/19 15:00 118 25 114/58 (76) 100 12/22/19 15:00 25 Mechanical Ventilator 100 12/22/19 15:00 114/58 12/22/19 15:00 25 Mechanical Ventilator 100 12/22/19 14:30 117 25 121/59 (79) 100 12/22/19 14:14 107/52 12/22/19 14:00 121 29 90/49 (63) 100 12/22/19 14:00 26 Mechanical Ventilator 100 12/22/19 14:00 26 Mechanical Ventilator 100 12/22/19 13:51 23 Mechanical Ventilator 100 12/22/19 13:30 121 25 93/46 (62) 100 12/22/19 13:00 118 23 96/51 (66) 100 12/22/19 13:00 23 Mechanical Ventilator 100 12/22/19 13:00 96/51 12/22/19 13:00 23 Mechanical Ventilator 100 12/22/19 12:30 117 22 112/56 (74) 100 12/22/19 12:00 98.6 117 23 107/52 (70) 100 12/22/19 12:00 Mechanical Ventilator 12/22/19 12:00 22 Mechanical Ventilator 100 12/22/19 12:00 107/52 12/22/19 12:00 22 Mechanical Ventilator 100 12/22/19 12:00 100 12/22/19 12:00 118 12/22/19 11:30 115 23 110/55 (73) 100 12/22/19 11:00 22 Mechanical Ventilator 100 12/22/19 11:00 114/56 12/22/19 11:00 22 Mechanical Ventilator 100 12/22/19 11:00 114 21 114/56 (75) 100 12/22/19 10:35 111 22 65 12/22/19 10:28 112 21 116/50 (72) 100 12/22/19 10:12 24 Mechanical Ventilator 100 12/22/19 10:00 22 Mechanical Ventilator 100 12/22/19 10:00 109/52 12/22/19 10:00 22 Non-Rebreather 100 12/22/19 10:00 111 22 109/52 (71) 100 12/22/19 09:30 111 22 106/54 (71) 100 12/22/19 09:30 111 21 101/51 (68) 100 12/22/19 09:00 22 Mechanical Ventilator 12/22/19 09:00 101/51 12/22/19 09:00 22 Mechanical Ventilator 100 12/22/19 09:00 111 21 101/51 (68) 100 12/22/19 08:51 111 12/22/19 08:30 112 22 97/52 (67) 100 12/22/19 08:00 100 12/22/19 08:00 22 Mechanical Ventilator 100 12/22/19 08:00 99/47 12/22/19 08:00 22 Mechanical Ventilator 100 12/22/19 08:00 99.2 113 22 99/47 (64) 100 12/22/19 08:00 111 12/22/19 08:00 Mechanical Ventilator 12/22/19 07:30 112 23 97/54 (68) 100 12/22/19 07:00 111 22 65 12/22/19 07:00 21 Mechanical Ventilator 100 12/22/19 07:00 100/48 12/22/19 07:00 21 Mechanical Ventilator 100 12/22/19 07:00 111 21 100/48 (65) 100 12/22/19 06:30 109 22 100/47 (64) 100 12/22/19 06:00 22 Mechanical Ventilator 100 12/22/19 06:00 107/52 12/22/19 06:00 22 Mechanical Ventilator 100 12/22/19 06:00 105 22 107/52 (70) 100 12/22/19 05:30 106 23 95/49 (64) 100 12/22/19 05:00 25 Mechanical Ventilator 100 12/22/19 05:00 92/51 12/22/19 05:00 25 Mechanical Ventilator 100 12/22/19 05:00 108 25 92/51 (65) 100 12/22/19 04:30 98.9 110 25 90/50 (63) 100 12/22/19 04:19 98.9 12/22/19 04:00 100 12/22/19 04:00 29 Mechanical Ventilator 100 12/22/19 04:00 99/57 12/22/19 04:00 29 Mechanical Ventilator 100 12/22/19 04:00 113 12/22/19 04:00 Mechanical Ventilator 12/22/19 04:00 99.2 112 29 99/57 (71) 100 12/22/19 03:30 112 27 100/51 (67) 100 12/22/19 03:00 112 23 94/51 (65) 100 12/22/19 03:00 23 Mechanical Ventilator 100 12/22/19 03:00 94/51 12/22/19 03:00 23 Mechanical Ventilator 100 12/22/19 02:30 113 26 98/51 (67) 100 12/22/19 02:00 114 22 105/52 (69) 100 12/22/19 02:00 22 Mechanical Ventilator 100 12/22/19 02:00 105/52 12/22/19 02:00 22 Mechanical Ventilator 100 12/22/19 01:38 117 20 65 12/22/19 01:30 118 25 99/55 (70) 100 12/22/19 01:00 21 Mechanical Ventilator 100 12/22/19 01:00 102/55 12/22/19 01:00 21 Mechanical Ventilator 100 12/22/19 01:00 118 21 102/55 (71) 100 12/22/19 00:30 115 23 109/61 (77) 100 12/22/19 00:00 100 12/22/19 00:00 116 12/22/19 00:00 99.8 115 39 109/56 (73) 93 12/22/19 00:00 39 Mechanical Ventilator 100 12/22/19 00:00 109/59 12/22/19 00:00 39 Mechanical Ventilator 100 12/22/19 00:00 Mechanical Ventilator 12/21/19 23:30 115 39 109/57 (74) 95 12/21/19 23:28 103/56 12/21/19 23:00 99.9 115 38 103/56 (72) 95 12/21/19 22:42 118 40 65 12/21/19 22:30 111 22 94/53 (67) 95 12/21/19 22:00 118 38 116/59 (78) 94 12/21/19 22:00 38 Mechanical Ventilator 65 12/21/19 22:00 116/59 12/21/19 22:00 38 Mechanical Ventilator 65 12/21/19 21:30 119 40 111/55 (73) 95 12/21/19 21:09 38 Mechanical Ventilator 65 12/21/19 21:00 39 Mechanical Ventilator 65 12/21/19 21:00 104/57 12/21/19 21:00 39 Mechanical Ventilator 65 12/21/19 21:00 99.6 119 39 104/57 (73) 95 12/21/19 20:30 120 38 117/61 (79) 96 12/21/19 20:00 122 39 106/56 (73) 95 12/21/19 20:00 65 12/21/19 20:00 121 12/21/19 20:00 Mechanical Ventilator 12/21/19 20:00 39 Mechanical Ventilator 65 12/21/19 20:00 106/56 12/21/19 20:00 39 Mechanical Ventilator 65 12/21/19 19:30 122 38 117/61 (79) 95 12/21/19 19:06 122 38 65 12/21/19 19:00 125 38 107/64 (78) 93 12/21/19 19:00 36 Mechanical Ventilator 65 12/21/19 19:00 107/64 12/21/19 19:00 36 Mechanical Ventilator 65 12/21/19 18:30 119 38 119/63 (81) 98 Height (Feet): 5 Height (Inches): 6.00 Weight (Pounds): 163 General Appearance: other - on vent, on pressors HEENT: normocephalic, atraumatic, no JVD Respiratory/Chest: crackles/rales, rhonchi - bilaterally Cardiovascular: normal rate, regular rhythm, no gallop/murmur, no JVD Abdomen: normal bowel sounds, soft, non tender, no organomegaly, non distended , other - + rectal tube Genitourinary: other - + barnes - urine slt cloudy Extremities: no cyanosis Skin: no rash Neurologic/Psychiatric: motor weakness, other - lethargic, weak Lymphatic: no neck adenopathy Musculoskeletal: no effusion Objective Chest x-ray - 12/02/19 - Procedure: XRAY Chest 1v EXAM: XR Chest, 1 View CLINICAL HISTORY: ABN CHST TECHNIQUE: Frontal view of the chest. COMPARISON: Chest x-ray dated 11/29/19 FINDINGS: Lungs: Persistent diffuse peripheral groundglass opacities, not significantly changed, concerning for pneumonia. Pleural space: Unremarkable. The costophrenic angles are sharp. No visible pneumothorax. Heart: Unremarkable. No cardiomegaly. Mediastinum: Unremarkable. Bones/joints: Mild degenerative changes throughout the visualized spine. Tubes, lines and devices: Telemetry leads overlie the thorax. IMPRESSION: No significant change compared to the prior chest x-ray. Persistent diffuse peripheral groundglass opacities, concerning for pneumonia. Chest x-ray - 12/07/19 - COMPARISON: Chest x-ray 12/06/19 1317 FINDINGS: Lungs: Diffuse bilateral airspace opacities, improved in the left lung and slightly worsened in the right lung. Pleural space: Unremarkable. No pneumothorax. Heart: Mild cardiomegaly. Mediastinum: Unremarkable. Bones/joints: Mild degenerative changes of spine. Tubes, lines and devices: Endotracheal tube and NG tube are stable. IMPRESSION: Diffuse bilateral airspace opacities, improved in the left lung and slightly worsened in the right lung. Chest x-ray - 12/10/19 - Procedure: XRAY Chest 1v Indication: Shortness of breath Technique: One view of the chest Comparison: 12/07/2019 Findings: There is worsening airspace opacity in the bilateral mid and lower lungs. The left hemidiaphragm is obscured, could indicate some pleural fluid. Stable satisfactory positions of endotracheal and nasogastric tubes. Impression: Worsening infiltrates, likely pneumonia, bilaterally Chest x-ray - 12/16/19 - Procedure: XRAY Chest 1v Indication: Shortness of breath Technique: One view of the chest Comparison: 12/15/2019 Findings: Diffuse and extensive bilateral hazy infiltrates are unchanged. Stable position of endotracheal and nasogastric tubes. Normal heart size. Findings are unchanged Impression: Unchanged, over one day, findings as above. Chest x-ray - 12/21/19 - IMPRESSION: 1. Endotracheal tube terminates in the region of the mid thoracic trachea. Enteric tube courses past the diaphragm and out of the field-of- view. 2. Similar extensive patchy opacities throughout the lungs. Microbiology Date/Time Source Procedure Growth Status 12/17/19 06:55 Blood Blood Culture - Preliminary NO GROWTH AFTER 4 DAYS Resulted 12/16/19 16:00 Sputum Gram Stain - Final Complete 12/16/19 16:00 Sputum Sputum Culture - Final NORMAL UPPER RESPIRATORY ALISIA PRESENT Complete 12/11/19 22:50 Stool Clostridium difficile Toxin Assay - Final Complete 12/17/19 00:38 Indwelling Cath Urine Culture - Final NO GROWTH AFTER 48 HOURS Complete Laboratory Tests Test 12/22/19 04:00 12/22/19 16:00 White Blood Count 32.9 K/UL (4.8-10.8) *H Red Blood Count 3.03 M/UL (4.70-6.10) L Hemoglobin 9.0 G/DL (14.2-18.0) L Hematocrit 28.2 % (42.0-52.0) L Mean Corpuscular Volume 93 FL (80-99) Mean Corpuscular Hemoglobin 29.8 PG (27.0-31.0) Mean Corpuscular Hemoglobin Concent 32.0 G/DL (32.0-36.0) Red Cell Distribution Width 14.7 % (11.6-14.8) Platelet Count 255 K/UL (150-450) Mean Platelet Volume 7.2 FL (6.5-10.1) Neutrophils (%) (Auto) % (45.0-75.0) Lymphocytes (%) (Auto) % (20.0-45.0) Monocytes (%) (Auto) % (1.0-10.0) Eosinophils (%) (Auto) % (0.0-3.0) Basophils (%) (Auto) % (0.0-2.0) Differential Total Cells Counted 100 Neutrophils % (Manual) 89 % (45-75) H Lymphocytes % (Manual) 6 % (20-45) L Monocytes % (Manual) 5 % (1-10) Eosinophils % (Manual) 0 % (0-3) Basophils % (Manual) 0 % (0-2) Band Neutrophils 0 % (0-8) Platelet Estimate Adequate Platelet Morphology Normal Polychromasia 1+ Anisocytosis 1+ D-Dimer 15.39 mg/L FEU (0.00-0.49) H 13.39 mg/L FEU (0.00-0.49) H Sodium Level 138 MMOL/L (136-145) Potassium Level 3.8 MMOL/L (3.5-5.1) Chloride Level 97 MMOL/L (98-107) L Carbon Dioxide Level 35 MMOL/L (21-32) H Anion Gap 7 mmol/L (5-15) Blood Urea Nitrogen 31 mg/dL (7-18) H Creatinine 2.9 MG/DL (0.55-1.30) H Estimat Glomerular Filtration Rate 22.5 mL/min (>60) Glucose Level 110 MG/DL (74-106) H Calcium Level 8.6 MG/DL (8.5-10.1) Phosphorus Level 6.4 MG/DL (2.5-4.9) H Magnesium Level 2.4 MG/DL (1.8-2.4) Ferritin 769 NG/ML (8-388) H Total Bilirubin 0.5 MG/DL (0.2-1.0) Aspartate Amino Transf (AST/SGOT) 62 U/L (15-37) H Alanine Aminotransferase (ALT/SGPT) 53 U/L (12-78) Alkaline Phosphatase 325 U/L (46-116) H Lactate Dehydrogenase 436 U/L (81-234) H Total Creatine Kinase 372 U/L (26-308) H Total Protein 7.2 G/DL (6.4-8.2) Albumin 2.5 G/DL (3.4-5.0) L Globulin 4.7 g/dL Albumin/Globulin Ratio 0.5 (1.0-2.7) L Prothrombin Time 9.8 SEC (9.30-11.50) Prothromb Time International Ratio 0.9 (0.9-1.1) Activated Partial Thromboplast Time 27 SEC (23-33) Fibrinogen 755 mg/dL (200-400) H Fibrin Degradation Products, Quant Pending Current Medications Medications (Trade) Dose Ordered Sig/Vicki Route PRN Reason Start Time Stop Time Status Last Admin Dose Admin Acetaminophen (Tylenol) 650 mg Q4H PRN NG Temp >100.5 12/06/19 14:15 01/05/20 14:14 12/22/19 03:49 Acetaminophen (Tylenol) 650 mg Q4H PRN RECTAL Mild Pain (Pain Scale 1-3) 12/04/19 11:45 01/03/20 11:44 12/06/19 19:17 Chlorhexidine Gluconate (Arely-Hex 2%) 1 applic DAILY@1999 TOPIC 12/05/19 20:00 03/04/20 19:59 12/21/19 20:06 Dextrose (Dextrose 50%) 25 ml Q30M PRN IV Hypoglycemia 11/29/19 14:15 02/27/20 14:14 Dextrose (Dextrose 50%) 50 ml Q30M PRN IV Hypoglycemia 11/29/19 14:15 02/27/20 14:14 Fentanyl Citrate 2500 mcg/Sodium Chloride 250 ml @ 0 mls/hr Q24H IV 12/20/19 00:00 12/27/19 00:00 12/22/19 13:51 Fluconazole/ Sodium Chloride 100 ml @ 100 mls/hr Q24H IV 12/16/19 22:00 12/23/19 21:59 12/21/19 20:07 Folic Acid (Folate) 1 mg DAILY NG 12/18/19 09:00 01/17/20 08:59 12/22/19 08:22 Hydralazine HCl (Apresoline) 10 mg Q4H PRN IV For High Blood Pressure 11/29/19 15:15 02/27/20 15:14 Loperamide HCl (Imodium) 2 mg Q6H PRN NG Diarrhea 12/12/19 12:45 01/11/20 12:44 Meropenem 500 mg/ Sodium Chloride 50 ml @ 100 mls/hr Q24H IVPB 12/20/19 21:30 12/25/19 21:29 12/21/19 20:06 Midazolam HCl 100 ml @ 0 mls/hr Q24H PRN IV Restlessness 12/16/19 10:45 03/15/20 10:44 12/22/19 10:12 Midodrine (Pro-Amatine) 10 mg THREE TIMES A DAY ORAL 12/12/19 13:00 03/11/20 12:59 12/22/19 17:05 Norepinephrine Bitartrate 8 mg/ Dextrose 250 ml @ 0 mls/hr Q24H IV 12/18/19 09:00 01/17/20 08:59 12/22/19 14:14 Ondansetron HCl (Zofran) 4 mg Q6H PRN IVP Nausea & Vomiting 11/29/19 14:15 12/29/19 14:14 Pantoprazole (Protonix) 40 mg DAILY IVP 11/30/19 12:15 12/30/19 12:14 12/22/19 08:21 Sevelamer Carbonate (Renvela) 800 mg THREE TIMES A DAY NG 12/22/19 13:00 03/21/20 12:59 12/22/19 17:05 Vancomycin HCl (Vanco rx to dose) 1 ea DAILY PRN MISC Per rx protocol 12/08/19 19:30 01/07/20 19:29 Vitamin B Complex/ Vit C/Folic Acid (Nephrovite) 1 tab DAILY NG 12/16/19 09:00 01/15/20 08:59 12/22/19 08:21 Ilsa Rodriguez MD December 22, 2019 18:22
--- NOTE | 2019-12-22 18:39 | NUR ---
NURSE NOTES: Dr Casillas here to see the patient. Updated him again with pt's current condition, including elevated WBC. Orders entered by doctor. Will proceed his orders.
--- NOTE | 2019-12-22 19:13 | NUR ---
HAND-OFF: Report given to Ortega Smith RN.
--- NOTE | 2019-12-22 19:30 | NUR ---
NURSE NOTES: Received report from Namita Strong RN. Upon visual inspection, patient presents in no acute distress. Patient sedated. Attached to monitor; vitals stable to baseline.
[2019-12-22] MEDS: Dyna-Hex 2% Top Sol 2oz TOPIC SCH (20:22)
[2019-12-22] MEDS: Vancomycin oral 125mg/2.5ml ORAL SCH (20:23)
--- NOTE | 2019-12-22 21:00 | NUR ---
NURSE NOTES: Patient in bed with no acute distress. Vitals stable to baseline. ETT 8; 24cm at lipline; ac 20; tv 500; peep 3; fio2 100%. NGT noted 65 cm at the lip; flushed and patent; Nepro running at goal of 35cc/hr; no residual noted; flushed 100ml. Aspiration precautions observed; HOB raised >30 degrees. Right femoral [place] noted; flushed and patent; levophed infusing at 10 mcg/min, versed at 5mg/hr and Fentanyl at 150mcg/hour. Right hand 20g IV noted; initiated IV ABX as prescribed. Joe and rectal tube intact and patent; no output. Axillary temp 100.4F. Airborne precautions observed. All safety measures met; side rails raised x3; bed locked at lowest position; bed alarm engaged on zone 2; call light within reach.
--- NOTE | 2019-12-22 23:00 | NUR ---
NURSE NOTES: Provided patients Lizzy corona, with progress of patients condition. Informed of patients slightly elevated temp.
--- NOTE | 2019-12-22 23:21 | Cardiac Electrophysiology PN ---
Assessment/Plan Assessment/Plan 1. Atrial fib with RVR 170 before intubation on 12/04/19. Converted to Sinus tach Troponin 0.77. No further atrial fib. In SR 2. Sinus Tachycardia due to respiratory failure and COVID-19 pneumonia. On IV antibiotic per ID. Echo pending COVID. 3. Septic shock. On Levophed 10 Mcg, Midodrine 10 tid and iv Abx. 4. Respiratory failure, on the Vent by Dr. Cortes. 100% Fio2, PEEP 5 5. Acute renal failure. On HD per Dr. Sanchez via RFV [place] 6. Full code DW RN Poor prognosis Subjective Subjective Intubated in ICU on 100% Fio2 and PEEP 3 on Levo 10 mcg, Fentanyl 150 and Versed 5 drip. Objective Last 24 Hour Vital Signs Date Time Temp Pulse Resp B/P (MAP) Pulse Ox O2 Delivery O2 Flow Rate FiO2 12/22/19 22:30 119 22 113/54 (73) 100 12/22/19 22:00 119 21 115/58 (77) 100 12/22/19 21:30 119 22 111/55 (73) 100 12/22/19 21:00 100.4 120 22 107/51 (69) 100 12/22/19 20:30 119 21 110/57 (74) 100 12/22/19 20:00 121 22 113/54 (73) 100 12/22/19 20:00 Mechanical Ventilator 12/22/19 20:00 100 12/22/19 19:30 121 23 123/53 (76) 100 12/22/19 19:15 121 26 65 12/22/19 19:00 21 Mechanical Ventilator 100 12/22/19 19:00 121/56 12/22/19 19:00 21 100 12/22/19 19:00 119 23 121/56 (77) 100 12/22/19 18:30 117 23 118/59 (78) 100 12/22/19 18:00 24 Mechanical Ventilator 100 12/22/19 18:00 121/58 12/22/19 18:00 24 Mechanical Ventilator 100 12/22/19 18:00 117 24 121/58 (79) 100 12/22/19 17:30 119 25 112/55 (74) 100 12/22/19 17:00 120 25 112/54 (73) 100 5/10/20 17:00 23 Mechanical Ventilator 100 12/22/19 17:00 112/55 12/22/19 17:00 23 Mechanical Ventilator 100 12/22/19 16:30 120 25 117/54 (75) 100 12/22/19 16:00 100 12/22/19 16:00 Mechanical Ventilator 12/22/19 16:00 24 Mechanical Ventilator 100 12/22/19 16:00 114/58 12/22/19 16:00 24 Mechanical Ventilator 100 12/22/19 16:00 118 25 106/57 (73) 100 12/22/19 16:00 119 12/22/19 15:30 98.9 120 25 114/58 (76) 100 12/22/19 15:00 119 24 65 12/22/19 15:00 118 25 114/58 (76) 100 12/22/19 15:00 25 Mechanical Ventilator 100 12/22/19 15:00 114/58 12/22/19 15:00 25 Mechanical Ventilator 100 12/22/19 14:30 117 25 121/59 (79) 100 12/22/19 14:14 107/52 12/22/19 14:00 121 29 90/49 (63) 100 12/22/19 14:00 26 Mechanical Ventilator 100 12/22/19 14:00 26 Mechanical Ventilator 100 12/22/19 13:51 23 Mechanical Ventilator 100 12/22/19 13:30 121 25 93/46 (62) 100 12/22/19 13:00 118 23 96/51 (66) 100 12/22/19 13:00 23 Mechanical Ventilator 100 12/22/19 13:00 96/51 12/22/19 13:00 23 Mechanical Ventilator 100 12/22/19 12:30 117 22 112/56 (74) 100 12/22/19 12:00 98.6 117 23 107/52 (70) 100 12/22/19 12:00 Mechanical Ventilator 12/22/19 12:00 22 Mechanical Ventilator 100 12/22/19 12:00 107/52 12/22/19 12:00 22 Mechanical Ventilator 100 12/22/19 12:00 100 12/22/19 12:00 118 12/22/19 11:30 115 23 110/55 (73) 100 12/22/19 11:00 22 Mechanical Ventilator 100 12/22/19 11:00 114/56 12/22/19 11:00 22 Mechanical Ventilator 100 12/22/19 11:00 114 21 114/56 (75) 100 12/22/19 10:35 111 22 65 12/22/19 10:28 112 21 116/50 (72) 100 12/22/19 10:12 24 Mechanical Ventilator 100 12/22/19 10:00 22 Mechanical Ventilator 100 12/22/19 10:00 109/52 12/22/19 10:00 22 Non-Rebreather 100 12/22/19 10:00 111 22 109/52 (71) 100 12/22/19 09:30 111 22 106/54 (71) 100 12/22/19 09:30 111 21 101/51 (68) 100 12/22/19 09:00 22 Mechanical Ventilator 12/22/19 09:00 101/51 12/22/19 09:00 22 Mechanical Ventilator 100 12/22/19 09:00 111 21 101/51 (68) 100 12/22/19 08:51 111 12/22/19 08:30 112 22 97/52 (67) 100 12/22/19 08:00 100 12/22/19 08:00 22 Mechanical Ventilator 100 12/22/19 08:00 99/47 12/22/19 08:00 22 Mechanical Ventilator 100 12/22/19 08:00 99.2 113 22 99/47 (64) 100 12/22/19 08:00 111 12/22/19 08:00 Mechanical Ventilator 12/22/19 07:30 112 23 97/54 (68) 100 12/22/19 07:00 111 22 65 12/22/19 07:00 21 Mechanical Ventilator 100 12/22/19 07:00 100/48 12/22/19 07:00 21 Mechanical Ventilator 100 12/22/19 07:00 111 21 100/48 (65) 100 12/22/19 06:30 109 22 100/47 (64) 100 12/22/19 06:00 22 Mechanical Ventilator 100 12/22/19 06:00 107/52 12/22/19 06:00 22 Mechanical Ventilator 100 12/22/19 06:00 105 22 107/52 (70) 100 12/22/19 05:30 106 23 95/49 (64) 100 12/22/19 05:00 25 Mechanical Ventilator 100 12/22/19 05:00 92/51 5/10/20 05:00 25 Mechanical Ventilator 100 12/22/19 05:00 108 25 92/51 (65) 100 12/22/19 04:30 98.9 110 25 90/50 (63) 100 12/22/19 04:19 98.9 12/22/19 04:00 100 12/22/19 04:00 29 Mechanical Ventilator 100 12/22/19 04:00 99/57 12/22/19 04:00 29 Mechanical Ventilator 100 12/22/19 04:00 113 12/22/19 04:00 Mechanical Ventilator 12/22/19 04:00 99.2 112 29 99/57 (71) 100 12/22/19 03:30 112 27 100/51 (67) 100 12/22/19 03:00 112 23 94/51 (65) 100 12/22/19 03:00 23 Mechanical Ventilator 100 12/22/19 03:00 94/51 12/22/19 03:00 23 Mechanical Ventilator 100 12/22/19 02:30 113 26 98/51 (67) 100 12/22/19 02:00 114 22 105/52 (69) 100 12/22/19 02:00 22 Mechanical Ventilator 100 12/22/19 02:00 105/52 12/22/19 02:00 22 Mechanical Ventilator 100 12/22/19 01:38 117 20 65 12/22/19 01:30 118 25 99/55 (70) 100 12/22/19 01:00 21 Mechanical Ventilator 100 12/22/19 01:00 102/55 12/22/19 01:00 21 Mechanical Ventilator 100 12/22/19 01:00 118 21 102/55 (71) 100 12/22/19 00:30 115 23 109/61 (77) 100 12/22/19 00:00 100 12/22/19 00:00 116 12/22/19 00:00 99.8 115 39 109/56 (73) 93 12/22/19 00:00 39 Mechanical Ventilator 100 12/22/19 00:00 109/59 12/22/19 00:00 39 Mechanical Ventilator 100 12/22/19 00:00 Mechanical Ventilator 12/21/19 23:30 115 39 109/57 (74) 95 12/21/19 23:28 103/56 Intake and Output 12/21/19 12/22/19 19:00 07:00 Intake Total 1336.875 ml 1187.50 ml Output Total 70 ml 2005 ml Balance 1266.875 ml -817.50 ml Free Water 100 ml 200 ml IV Total 666.875 ml 567.50 ml Tube Feeding 420 ml 420 ml Other 150 ml Output Urine Total 0 ml 5 ml Stool Total 70 ml Hemodialysis UF 2000 ml Laboratory Tests Test 12/22/19 04:00 12/22/19 16:00 White Blood Count 32.9 K/UL (4.8-10.8) *H Red Blood Count 3.03 M/UL (4.70-6.10) L Hemoglobin 9.0 G/DL (14.2-18.0) L Hematocrit 28.2 % (42.0-52.0) L Mean Corpuscular Volume 93 FL (80-99) Mean Corpuscular Hemoglobin 29.8 PG (27.0-31.0) Mean Corpuscular Hemoglobin Concent 32.0 G/DL (32.0-36.0) Red Cell Distribution Width 14.7 % (11.6-14.8) Platelet Count 255 K/UL (150-450) Mean Platelet Volume 7.2 FL (6.5-10.1) Neutrophils (%) (Auto) % (45.0-75.0) Lymphocytes (%) (Auto) % (20.0-45.0) Monocytes (%) (Auto) % (1.0-10.0) Eosinophils (%) (Auto) % (0.0-3.0) Basophils (%) (Auto) % (0.0-2.0) Differential Total Cells Counted 100 Neutrophils % (Manual) 89 % (45-75) H Lymphocytes % (Manual) 6 % (20-45) L Monocytes % (Manual) 5 % (1-10) Eosinophils % (Manual) 0 % (0-3) Basophils % (Manual) 0 % (0-2) Band Neutrophils 0 % (0-8) Platelet Estimate Adequate Platelet Morphology Normal Polychromasia 1+ Anisocytosis 1+ D-Dimer 15.39 mg/L FEU (0.00-0.49) H 13.39 mg/L FEU (0.00-0.49) H Sodium Level 138 MMOL/L (136-145) Potassium Level 3.8 MMOL/L (3.5-5.1) Chloride Level 97 MMOL/L (98-107) L Carbon Dioxide Level 35 MMOL/L (21-32) H Anion Gap 7 mmol/L (5-15) Blood Urea Nitrogen 31 mg/dL (7-18) H Creatinine 2.9 MG/DL (0.55-1.30) H Estimat Glomerular Filtration Rate 22.5 mL/min (>60) Glucose Level 110 MG/DL (74-106) H Calcium Level 8.6 MG/DL (8.5-10.1) Phosphorus Level 6.4 MG/DL (2.5-4.9) H Magnesium Level 2.4 MG/DL (1.8-2.4) Ferritin 769 NG/ML (8-388) H Total Bilirubin 0.5 MG/DL (0.2-1.0) Aspartate Amino Transf (AST/SGOT) 62 U/L (15-37) H Alanine Aminotransferase (ALT/SGPT) 53 U/L (12-78) Alkaline Phosphatase 325 U/L (46-116) H Lactate Dehydrogenase 436 U/L (81-234) H Total Creatine Kinase 372 U/L (26-308) H Total Protein 7.2 G/DL (6.4-8.2) Albumin 2.5 G/DL (3.4-5.0) L Globulin 4.7 g/dL Albumin/Globulin Ratio 0.5 (1.0-2.7) L Prothrombin Time 9.8 SEC (9.30-11.50) Prothromb Time International Ratio 0.9 (0.9-1.1) Activated Partial Thromboplast Time 27 SEC (23-33) Fibrinogen 755 mg/dL (200-400) H Fibrin Degradation Products, Quant Pending Objective HEAD AND NECK: Orally intubated No JVD LUNGS: Decreased breath sounds. Coarse rhonchi. CARDIOVASCULAR: Tachycardic S1 and S2 with no gallop. ABDOMEN: Soft. EXTREMITIES: 1 plus pitting edema. RFV [place] in place Raul pApiah MD December 22, 2019 23:21
[2019-12-23] VITALS (50 sets, daily range): BP systolic 74–137; BP diastolic 41–71
[2019-12-23] MEDS: Acetaminophen 650mg/20.3ml NG PRN (00:31)
--- NOTE | 2019-12-23 01:00 | NUR ---
NURSE NOTES: Provided patient with complete bed bath; changed linens and gown. Pressure wound noted to bilateral cheeks; dressing remains intact and unsoiled. Axillary temp 100.3F; administered PRN antipyretics. Suctioned patient; provided oral care. Patient tolerated well. Patient respirations and spo2 within normal limits. Decreased Fio2 to 80%; patient tolerating well. Repositioned for comfort; bilateral upper and lower extremities raised. Will continue to monitor.
--- NOTE | 2019-12-23 03:00 | NUR ---
NURSE NOTES: Continued infusion with new bag of Levophed at 5mg/hr; BP 105/57.
--- NOTE | 2019-12-23 04:00 | NUR ---
NURSE NOTES: AM Labs, urine and C-diff specimen collected; sent down to lab. Patient and vitals remain stable to baseline. Axillary temp 98.9F. Emptied barnes and recorded. Replaced rectal tube collection bag; no output during shift.
--- NOTE | 2019-12-23 05:00 | NUR ---
NURSE NOTES: Continued infusion with new bag of Versed at 20mg/hr; RASS -2. No output noted in barnes and rectal tube collection bag.
[2019-12-23] MEDS: fentaNYL Citrate 2,500 MCG in NS 200 ML IV SCH ×2 (05:36→21:33)
[2019-12-23 05:45] LABS: HEMATOCRIT 24.8 % (42.0-52.0); HEMOGLOBIN 7.8 G/DL (14.2-18.0); MEAN CORPUSCULAR VOLUME 94 FL (80-99); PLATELET COUNT 249 K/UL (150-450); RED BLOOD COUNT 2.63 M/UL (4.70-6.10); RED CELL DISTRIBUTION WIDTH 15.2 % (11.6-14.8)
[2019-12-23 05:57] LABS: WHITE BLOOD COUNT 30.9 K/UL (4.8-10.8)
[2019-12-23 06:22] LABS: ALANINE AMINOTRANSFERASE 50 U/L (12-78); ALBUMIN 2.2 G/DL (3.4-5.0); ALBUMIN/GLOBULIN RATIO 0.5 (1.0-2.7); ALKALINE PHOSPHATASE 264 U/L (46-116); ANION GAP 8 mmol/L (5-15); ASPARTATE AMINO TRANSFERASE 61 U/L (15-37); BILIRUBIN,TOTAL 0.5 MG/DL (0.2-1.0); BLOOD UREA NITROGEN 65 mg/dL (7-18); CALCIUM 8.8 MG/DL (8.5-10.1); CARBON DIOXIDE 33 MMOL/L (21-32); CHLORIDE 97 MMOL/L (98-107); CREATININE 5.3 MG/DL (0.55-1.30); PHOSPHORUS 7.8 MG/DL (2.5-4.9); POTASSIUM 4.2 MMOL/L (3.5-5.1); SODIUM 138 MMOL/L (136-145)
--- NOTE | 2019-12-23 07:42 | General Progress Note ---
Assessment/Plan Status: unchanged Assessment/Plan: 59-year-old male with PMH of HTN presents with acute respiratory distress. COVID positive, was intubated on 12/03. RESP/ID #Acute Hypoxic Respiratory Failure 2/2 COVID +, HCAP +--> WBC continues to climb 12/21 #Septic Shock #PTX/Pneumomediastinum--> to high risk for intervention #diarrhea, ?c diff -s/p Intubation 12/03 -Appreciate Pulm/ID --> Vent Management -Fentanyl for Sedation 2/2 elevated TG -Pressor support, maintain MAP > 65 -ABG per pulm -Patient is s/p IL-6 inhibitor and Plaquenil -s/p Vanc (12/09-12/15), cefepime (12/09-12/15), flagyl (12/09-12/15) -Trend predictive markers Q3 days; CRP, Pro-Calcitonin, Ferritin, Ddimer -Monitor Ddimer, if 10X upper limit, consider AC for embolic prevention -Continue Broad Spectrum AB per ID, Cx per ID (currently on meropenem, vancomycin, fluconazole, PO vanco for possible c diff) -Surgery to monitor PTX -f/u c diff NEPHRO #ARF now on HD -12/04: femoral HD cath placed -Continue HD per Nephro, last HD 12/20 GI #Shock Liver -Appreciate GI recs -Liver enzymes also likely elevated 2/2 COVID + state CV #Tachcyardia, - s/p AFib now converted to sinus -Appreciate Cardio management DVT/GI ppx, Tube Feeding, FULL CODE Time spent on encounter: 55 mins, 31 mins spent on critical care time. Critical Care Services performed include: Telemetry Review Hemodynamic measurement interpretation Laboratory data review and interpretation Radiology image review and interpretation Interpretation of ABG's Discussion of patient's care with ICU team, Nursing staff and/or consulting services, Dr. Soriano. Time of note doesn't reflect time of encounter. Subjective Allergies: Coded Allergies: No Known Allergies (Unverified , 11/29/19) Subjective Follow up for acute hypoxic resp failure, COVID19 positive, intubation/sedated, multi-organ failure. Remains intubated on 70% FiO2, PEEP 3, sedated on pressure support Levo 10. WBC remains elevated. Plan for HD again today. Unable to obtain ROS due to clinical picture. Objective Last 24 Hour Vital Signs Date Time Temp Pulse Resp B/P (MAP) Pulse Ox O2 Delivery O2 Flow Rate FiO2 12/23/19 07:20 116 27 70 12/23/19 06:30 117 29 94/50 (65) 100 12/23/19 06:01 32 Mechanical Ventilator 80 12/23/19 06:00 32 Mechanical Ventilator 80 12/23/19 06:00 92/46 12/23/19 06:00 32 Mechanical Ventilator 80 12/23/19 06:00 115 32 92/46 (61) 95 12/23/19 05:36 29 Mechanical Ventilator 80 12/23/19 05:30 116 32 111/53 (72) 99 12/23/19 05:00 117 24 103/52 (69) 100 12/23/19 05:00 24 Mechanical Ventilator 80 12/23/19 05:00 103/52 12/23/19 05:00 24 Mechanical Ventilator 80 12/23/19 04:30 118 23 102/52 (69) 100 12/23/19 04:00 80 12/23/19 04:00 23 Mechanical Ventilator 80 12/23/19 04:00 104/52 12/23/19 04:00 23 Mechanical Ventilator 80 12/23/19 04:00 98.9 118 23 104/52 (69) 99 12/23/19 04:00 Mechanical Ventilator 12/23/19 04:00 121 12/23/19 03:30 119 22 100/48 (65) 98 12/23/19 03:01 105/55 12/23/19 03:00 121 23 105/47 (66) 97 12/23/19 03:00 119 29 80 12/23/19 03:00 23 Mechanical Ventilator 80 12/23/19 03:00 105/47 12/23/19 03:00 23 Mechanical Ventilator 100 12/23/19 02:30 120 20 103/51 (68) 100 12/23/19 02:00 80 12/23/19 02:00 121 20 104/48 (66) 100 12/23/19 02:00 20 Mechanical Ventilator 80 12/23/19 02:00 104/48 12/23/19 02:00 20 80 12/23/19 01:30 121 20 101/53 (69) 100 12/23/19 01:01 100.2 12/23/19 01:00 122 20 103/51 (68) 100 12/23/19 01:00 20 Mechanical Ventilator 100 12/23/19 01:00 103/51 12/23/19 01:00 20 Mechanical Ventilator 100 12/23/19 00:30 122 21 110/53 (72) 100 12/23/19 00:00 100.3 121 20 110/54 (72) 100 12/23/19 00:00 20 Mechanical Ventilator 100 12/23/19 00:00 110/54 12/23/19 00:00 20 Mechanical Ventilator 100 12/23/19 00:00 121 12/23/19 00:00 100 12/23/19 00:00 Mechanical Ventilator 12/22/19 23:30 121 20 112/52 (72) 100 12/22/19 23:30 110 25 100 12/22/19 23:00 120 21 115/54 (74) 100 12/22/19 23:00 24 Mechanical Ventilator 100 12/22/19 23:00 115/54 12/22/19 23:00 24 Mechanical Ventilator 100 12/22/19 22:30 119 22 113/54 (73) 100 12/22/19 22:00 119 21 115/58 (77) 100 12/22/19 22:00 22 Mechanical Ventilator 100 12/22/19 22:00 115/58 12/22/19 22:00 22 Mechanical Ventilator 100 12/22/19 21:30 119 22 111/55 (73) 100 12/22/19 21:00 100.4 120 22 107/51 (69) 100 12/22/19 21:00 22 Mechanical Ventilator 100 12/22/19 21:00 107/51 12/22/19 21:00 27 Mechanical Ventilator 100 12/22/19 20:30 119 21 110/57 (74) 100 12/22/19 20:00 121 22 113/54 (73) 100 12/22/19 20:00 19 Mechanical Ventilator 100 12/22/19 20:00 123/53 12/22/19 20:00 19 Mechanical Ventilator 100 12/22/19 20:00 122 12/22/19 20:00 Mechanical Ventilator 12/22/19 20:00 100 12/22/19 19:30 121 23 123/53 (76) 100 12/22/19 19:15 121 26 100 12/22/19 19:00 21 Mechanical Ventilator 100 12/22/19 19:00 121/56 12/22/19 19:00 21 100 12/22/19 19:00 119 23 121/56 (77) 100 12/22/19 18:30 117 23 118/59 (78) 100 12/22/19 18:00 24 Mechanical Ventilator 100 12/22/19 18:00 121/58 12/22/19 18:00 24 Mechanical Ventilator 100 12/22/19 18:00 117 24 121/58 (79) 100 12/22/19 17:30 119 25 112/55 (74) 100 12/22/19 17:00 120 25 112/54 (73) 100 12/22/19 17:00 23 Mechanical Ventilator 100 12/22/19 17:00 112/55 12/22/19 17:00 23 Mechanical Ventilator 100 12/22/19 16:30 120 25 117/54 (75) 100 12/22/19 16:00 100 12/22/19 16:00 Mechanical Ventilator 12/22/19 16:00 24 Mechanical Ventilator 100 12/22/19 16:00 114/58 12/22/19 16:00 24 Mechanical Ventilator 100 12/22/19 16:00 118 25 106/57 (73) 100 12/22/19 16:00 119 12/22/19 15:30 98.9 120 25 114/58 (76) 100 12/22/19 15:00 119 24 65 12/22/19 15:00 118 25 114/58 (76) 100 12/22/19 15:00 25 Mechanical Ventilator 100 12/22/19 15:00 114/58 12/22/19 15:00 25 Mechanical Ventilator 100 12/22/19 14:30 117 25 121/59 (79) 100 12/22/19 14:14 107/52 12/22/19 14:00 121 29 90/49 (63) 100 12/22/19 14:00 26 Mechanical Ventilator 100 12/22/19 14:00 26 Mechanical Ventilator 100 12/22/19 13:51 23 Mechanical Ventilator 100 12/22/19 13:30 121 25 93/46 (62) 100 12/22/19 13:00 118 23 96/51 (66) 100 12/22/19 13:00 23 Mechanical Ventilator 100 12/22/19 13:00 96/51 12/22/19 13:00 23 Mechanical Ventilator 100 12/22/19 12:30 117 22 112/56 (74) 100 12/22/19 12:00 98.6 117 23 107/52 (70) 100 12/22/19 12:00 Mechanical Ventilator 12/22/19 12:00 22 Mechanical Ventilator 100 12/22/19 12:00 107/52 12/22/19 12:00 22 Mechanical Ventilator 100 12/22/19 12:00 100 12/22/19 12:00 118 12/22/19 11:30 115 23 110/55 (73) 100 12/22/19 11:00 22 Mechanical Ventilator 100 12/22/19 11:00 114/56 12/22/19 11:00 22 Mechanical Ventilator 100 12/22/19 11:00 114 21 114/56 (75) 100 12/22/19 10:35 111 22 65 12/22/19 10:28 112 21 116/50 (72) 100 12/22/19 10:12 24 Mechanical Ventilator 100 12/22/19 10:00 22 Mechanical Ventilator 100 12/22/19 10:00 109/52 12/22/19 10:00 22 Non-Rebreather 100 12/22/19 10:00 111 22 109/52 (71) 100 12/22/19 09:30 111 22 106/54 (71) 100 12/22/19 09:30 111 21 101/51 (68) 100 12/22/19 09:00 22 Mechanical Ventilator 12/22/19 09:00 101/51 12/22/19 09:00 22 Mechanical Ventilator 100 12/22/19 09:00 111 21 101/51 (68) 100 12/22/19 08:51 111 12/22/19 08:30 112 22 97/52 (67) 100 12/22/19 08:00 100 12/22/19 08:00 22 Mechanical Ventilator 100 12/22/19 08:00 99/47 12/22/19 08:00 22 Mechanical Ventilator 100 12/22/19 08:00 99.2 113 22 99/47 (64) 100 12/22/19 08:00 111 12/22/19 08:00 Mechanical Ventilator Intake and Output 12/22/19 12/23/19 19:00 07:00 Intake Total 1016.25 ml 1151.50 ml Output Total 5 ml 10 ml Balance 1011.25 ml 1141.50 ml Free Water 100 ml 100 ml IV Total 446.25 ml 566.50 ml Tube Feeding 420 ml 385 ml Blood Product 100 ml Other 50 ml Output Urine Total 5 ml 10 ml Laboratory Tests 12/22/19 16:00: Prothrombin Time 9.8, Prothromb Time International Ratio 0.9, Activated Partial Thromboplast Time 27, Fibrinogen 755H, Fibrin Degradation Products, Quant [ Pending], D-Dimer 13.39H 12/23/19 04:00: Urine Color [Pending], Urine Appearance [Pending], Urine pH [Pending], Urine Specific [place] [Pending], Urine Protein [Pending], Urine Glucose (UA) [Pending ], Urine Ketones [Pending], Urine Blood [Pending], Urine Nitrite [Pending], Urine Bilirubin [Pending], Urine Urobilinogen [Pending], Urine Leukocyte Esterase [Pending] 12/23/19 04:14: White Blood Count 30.9*H, Red Blood Count 2.63L, Hemoglobin 7.8L, Hematocrit 24.8L, Mean Corpuscular Volume 94, Mean Corpuscular Hemoglobin 29.6, Mean Corpuscular Hemoglobin Concent 31.4L, Red Cell Distribution Width 15.2H, Platelet Count 249, Mean Platelet Volume 6.2L, Neutrophils (%) (Auto) , Lymphocytes (%) (Auto) , Monocytes (%) (Auto) , Eosinophils (%) (Auto) , Basophils (%) (Auto) , Neutrophils % (Manual) [Pending], Lymphocytes % (Manual) [Pending], Platelet Estimate [Pending], Platelet Morphology [Pending], Sodium Level 138, Potassium Level 4.2, Chloride Level 97L, Carbon Dioxide Level 33H, Anion Gap 8, Blood Urea Nitrogen 65H, Creatinine 5.3#H, Estimat Glomerular Filtration Rate 11.2, Glucose Level 115H, Calcium Level 8.8, Phosphorus Level 7.8H, Magnesium Level 2.9H, Total Bilirubin 0.5, Aspartate Amino Transf (AST/ SGOT) 61H, Alanine Aminotransferase (ALT/SGPT) 50, Alkaline Phosphatase 264H, Total Protein 6.7, Albumin 2.2L, Globulin 4.5, Albumin/Globulin Ratio 0.5L Height (Feet): 5 Height (Inches): 6.00 Weight (Pounds): 159 Objective General Appearance: intubated, OG tube in place, in supine position Cardiovascular: sinus tach on tele, HR low 100's Respiratory/Chest: ETT in place, equal rise in lungs b/l Abdomen: non distended Ext: no edema noted Theodore Aguayo M.D. December 23, 2019 07:42
--- NOTE | 2019-12-23 07:53 | NUR ---
RD ASSESSMENT & RECOMMENDATIONS SEE CARE ACTIVITY FOR COMPLETE ASSESSMENT DAILY ESTIMATED NEEDS: Needs based on Critical care 68.4kg abw 22-28 kcals/kg 7865-0284 total kcals 1.2-2 g protein/kg 82-137 g total protein 25-30 mL/kg 2128-6282 total fluid mLs NUTRITION DIAGNOSIS: Altered nutrition related lab values r/t clinical status as evidenced by mildly elev BG (131, 151-> improved), elev T bili-> now wnl, elev LFTs, trending down, elev WBC (30.9*), elev creat (5.3) now on HD, febrile, critical ABG, now s/p intubation on pressor support, NGT feeds.. CURRENT TF:Nepro @35ml/hr x24 hrs ENTERAL NUTRITION RECOMMENDATIONS: Nepro @35ml/hr x24 hrs + Prosource BID to provide 840ml, 1512 kcal, 68g + 22g pro, 611ml free H2O - WITH HEMODYNAMIC STABILITY, maintain current TF - When Tolerating TF at goal of 35ml/hr and Prosource in stock, rec to add Prosource BID to better meet protein needs. Will provide additional 22g pro. - Flush per MD/ HOB over 30 degrees. -> Without hemodynamic stability, rec trophic feeds to maintain gut integrity, rec Nepro @5-10ml/hr as able. ADDITIONAL RECOMMENDATIONS: 1) Monitor hemodynamic stability: on Levo @10 2) Wound care: add CLAUDIO BID 3) NISS w/ TF (elev BGs), now <150. 4) Maintain calibrated bed scale wts 5) Monitor for continuity of HD: last HD 12/20, next 12/22 6) HOLD TF WHILE PT ON PRONE POSITION TO PREVENT ASPIRATION .
[2019-12-23] MEDS: Renvela 800mg Pkt NG SCH ×3 (08:35→17:48)
[2019-12-23] MEDS: Nephrovite tab (Rena-Vite) NG SCH (08:35)
[2019-12-23] MEDS: Midodrine 10mg tab ORAL SCH ×3 (08:35→17:48)
[2019-12-23] MEDS: Vancomycin oral 125mg/2.5ml ORAL SCH ×4 (08:35→20:44)
[2019-12-23] MEDS: Pantoprazole Inj IVP SCH (08:35)
--- NOTE | 2019-12-23 08:45 | NUR ---
NURSE NOTES: Dr. Aguayo made aware of patient respiratory status and updated on hemodialysis. no verbal orders given at this time.
--- NOTE | 2019-12-23 09:04 | Urology Progress Note ---
Assessment/Plan Status: unchanged Assessment/Plan: 1. Phimosis. 2. Retention. 3. Hematuria. 4. Pyuria. 5. Proteinuria. 6. Acute kidney injury. 7. Meatal stenosis. monitor clinically maintain barnes, placed 12/04 hand irrigate PRN monitor urine output and renal fxn consider renal imaging abx as ordered HD per nephrology f/u on blood cx Subjective Allergies: Coded Allergies: No Known Allergies (Unverified , 11/29/19) Subjective remains on vent, still with minimal urine output, HD Objective Last 24 Hour Vital Signs Date Time Temp Pulse Resp B/P (MAP) Pulse Ox O2 Delivery O2 Flow Rate FiO2 12/23/19 08:30 117 31 104/49 (67) 95 12/23/19 08:00 Mechanical Ventilator 12/23/19 08:00 100.1 117 31 101/51 (68) 96 12/23/19 08:00 70 12/23/19 07:30 117 29 96/48 (64) 98 12/23/19 07:20 116 27 70 12/23/19 07:00 117 28 105/47 (66) 98 12/23/19 06:30 117 29 94/50 (65) 100 12/23/19 06:01 32 Mechanical Ventilator 80 12/23/19 06:00 32 Mechanical Ventilator 80 12/23/19 06:00 92/46 12/23/19 06:00 32 Mechanical Ventilator 80 12/23/19 06:00 115 32 92/46 (61) 95 12/23/19 05:36 29 Mechanical Ventilator 80 12/23/19 05:30 116 32 111/53 (72) 99 12/23/19 05:00 117 24 103/52 (69) 100 12/23/19 05:00 24 Mechanical Ventilator 80 12/23/19 05:00 103/52 12/23/19 05:00 24 Mechanical Ventilator 80 12/23/19 04:30 118 23 102/52 (69) 100 12/23/19 04:00 80 12/23/19 04:00 23 Mechanical Ventilator 80 12/23/19 04:00 104/52 12/23/19 04:00 23 Mechanical Ventilator 80 12/23/19 04:00 98.9 118 23 104/52 (69) 99 12/23/19 04:00 Mechanical Ventilator 12/23/19 04:00 121 12/23/19 03:30 119 22 100/48 (65) 98 12/23/19 03:01 105/55 12/23/19 03:00 121 23 105/47 (66) 97 12/23/19 03:00 119 29 80 12/23/19 03:00 23 Mechanical Ventilator 80 12/23/19 03:00 105/47 12/23/19 03:00 23 Mechanical Ventilator 100 12/23/19 02:30 120 20 103/51 (68) 100 12/23/19 02:00 80 12/23/19 02:00 121 20 104/48 (66) 100 12/23/19 02:00 20 Mechanical Ventilator 80 12/23/19 02:00 104/48 12/23/19 02:00 20 80 12/23/19 01:30 121 20 101/53 (69) 100 12/23/19 01:01 100.2 12/23/19 01:00 122 20 103/51 (68) 100 12/23/19 01:00 20 Mechanical Ventilator 100 12/23/19 01:00 103/51 12/23/19 01:00 20 Mechanical Ventilator 100 12/23/19 00:30 122 21 110/53 (72) 100 12/23/19 00:00 100.3 121 20 110/54 (72) 100 12/23/19 00:00 20 Mechanical Ventilator 100 12/23/19 00:00 110/54 12/23/19 00:00 20 Mechanical Ventilator 100 12/23/19 00:00 121 12/23/19 00:00 100 12/23/19 00:00 Mechanical Ventilator 12/22/19 23:30 121 20 112/52 (72) 100 12/22/19 23:30 110 25 100 12/22/19 23:00 120 21 115/54 (74) 100 12/22/19 23:00 24 Mechanical Ventilator 100 12/22/19 23:00 115/54 12/22/19 23:00 24 Mechanical Ventilator 100 12/22/19 22:30 119 22 113/54 (73) 100 12/22/19 22:00 119 21 115/58 (77) 100 12/22/19 22:00 22 Mechanical Ventilator 100 12/22/19 22:00 115/58 12/22/19 22:00 22 Mechanical Ventilator 100 12/22/19 21:30 119 22 111/55 (73) 100 12/22/19 21:00 100.4 120 22 107/51 (69) 100 12/22/19 21:00 22 Mechanical Ventilator 100 12/22/19 21:00 107/51 12/22/19 21:00 27 Mechanical Ventilator 100 12/22/19 20:30 119 21 110/57 (74) 100 12/22/19 20:00 121 22 113/54 (73) 100 12/22/19 20:00 19 Mechanical Ventilator 100 12/22/19 20:00 123/53 12/22/19 20:00 19 Mechanical Ventilator 100 12/22/19 20:00 122 12/22/19 20:00 Mechanical Ventilator 12/22/19 20:00 100 12/22/19 19:30 121 23 123/53 (76) 100 12/22/19 19:15 121 26 100 12/22/19 19:00 21 Mechanical Ventilator 100 12/22/19 19:00 121/56 12/22/19 19:00 21 100 12/22/19 19:00 119 23 121/56 (77) 100 12/22/19 18:30 117 23 118/59 (78) 100 12/22/19 18:00 24 Mechanical Ventilator 100 12/22/19 18:00 121/58 12/22/19 18:00 24 Mechanical Ventilator 100 12/22/19 18:00 117 24 121/58 (79) 100 12/22/19 17:30 119 25 112/55 (74) 100 12/22/19 17:00 120 25 112/54 (73) 100 12/22/19 17:00 23 Mechanical Ventilator 100 12/22/19 17:00 112/55 12/22/19 17:00 23 Mechanical Ventilator 100 12/22/19 16:30 120 25 117/54 (75) 100 12/22/19 16:00 100 12/22/19 16:00 Mechanical Ventilator 12/22/19 16:00 24 Mechanical Ventilator 100 12/22/19 16:00 114/58 12/22/19 16:00 24 Mechanical Ventilator 100 12/22/19 16:00 118 25 106/57 (73) 100 12/22/19 16:00 119 12/22/19 15:30 98.9 120 25 114/58 (76) 100 12/22/19 15:00 119 24 65 12/22/19 15:00 118 25 114/58 (76) 100 12/22/19 15:00 25 Mechanical Ventilator 100 12/22/19 15:00 114/58 12/22/19 15:00 25 Mechanical Ventilator 100 12/22/19 14:30 117 25 121/59 (79) 100 12/22/19 14:14 107/52 12/22/19 14:00 121 29 90/49 (63) 100 12/22/19 14:00 26 Mechanical Ventilator 100 12/22/19 14:00 26 Mechanical Ventilator 100 12/22/19 13:51 23 Mechanical Ventilator 100 12/22/19 13:30 121 25 93/46 (62) 100 12/22/19 13:00 118 23 96/51 (66) 100 12/22/19 13:00 23 Mechanical Ventilator 100 12/22/19 13:00 96/51 12/22/19 13:00 23 Mechanical Ventilator 100 12/22/19 12:30 117 22 112/56 (74) 100 12/22/19 12:00 98.6 117 23 107/52 (70) 100 12/22/19 12:00 Mechanical Ventilator 12/22/19 12:00 22 Mechanical Ventilator 100 12/22/19 12:00 107/52 12/22/19 12:00 22 Mechanical Ventilator 100 12/22/19 12:00 100 12/22/19 12:00 118 12/22/19 11:30 115 23 110/55 (73) 100 12/22/19 11:00 22 Mechanical Ventilator 100 12/22/19 11:00 114/56 12/22/19 11:00 22 Mechanical Ventilator 100 12/22/19 11:00 114 21 114/56 (75) 100 12/22/19 10:35 111 22 65 12/22/19 10:28 112 21 116/50 (72) 100 12/22/19 10:12 24 Mechanical Ventilator 100 12/22/19 10:00 22 Mechanical Ventilator 100 12/22/19 10:00 109/52 12/22/19 10:00 22 Non-Rebreather 100 12/22/19 10:00 111 22 109/52 (71) 100 12/22/19 09:30 111 22 106/54 (71) 100 12/22/19 09:30 111 21 101/51 (68) 100 Intake and Output 12/22/19 12/23/19 19:00 07:00 Intake Total 1016.25 ml 1186.50 ml Output Total 5 ml 10 ml Balance 1011.25 ml 1176.50 ml Free Water 100 ml 100 ml IV Total 446.25 ml 566.50 ml Tube Feeding 420 ml 420 ml Blood Product 100 ml Other 50 ml Output Urine Total 5 ml 10 ml Microbiology Date/Time Source Procedure Growth Status 12/17/19 06:55 Blood Blood Culture - Final NO GROWTH AFTER 5 DAYS Complete 12/16/19 16:00 Sputum Gram Stain - Final Complete 12/16/19 16:00 Sputum Sputum Culture - Final NORMAL UPPER RESPIRATORY ALISIA PRESENT Complete 12/11/19 22:50 Stool Clostridium difficile Toxin Assay - Final Complete 12/17/19 00:38 Indwelling Cath Urine Culture - Final NO GROWTH AFTER 48 HOURS Complete Current Medications Medications (Trade) Dose Ordered Sig/Vicki Route PRN Reason Start Time Stop Time Status Last Admin Dose Admin Acetaminophen (Tylenol) 650 mg Q4H PRN NG Temp >100.5 12/06/19 14:15 01/05/20 14:14 12/23/19 00:31 Acetaminophen (Tylenol) 650 mg Q4H PRN RECTAL Mild Pain (Pain Scale 1-3) 12/04/19 11:45 01/03/20 11:44 12/06/19 19:17 Chlorhexidine Gluconate (Arely-Hex 2%) 1 applic DAILY@2000 TOPIC 12/05/19 20:00 03/04/20 19:59 12/22/19 20:22 Dextrose (Dextrose 50%) 25 ml Q30M PRN IV Hypoglycemia 11/29/19 14:15 02/27/20 14:14 Dextrose (Dextrose 50%) 50 ml Q30M PRN IV Hypoglycemia 11/29/19 14:15 02/27/20 14:14 Fentanyl Citrate 2500 mcg/Sodium Chloride 250 ml @ 0 mls/hr Q24H IV 12/20/19 00:00 12/27/19 00:00 12/23/19 05:36 Fluconazole/ Sodium Chloride 100 ml @ 100 mls/hr Q24H IV 12/22/19 22:00 12/29/19 21:59 12/22/19 20:23 Folic Acid (Folate) 1 mg DAILY NG 12/18/19 09:00 01/17/20 08:59 12/23/19 08:35 Hydralazine HCl (Apresoline) 10 mg Q4H PRN IV For High Blood Pressure 11/29/19 15:15 02/27/20 15:14 Loperamide HCl (Imodium) 2 mg Q6H PRN NG Diarrhea 12/12/19 12:45 01/11/20 12:44 Meropenem 500 mg/ Sodium Chloride 50 ml @ 100 mls/hr Q24H IVPB 12/20/19 21:30 12/25/19 21:29 12/22/19 20:22 Midazolam HCl 100 ml @ 0 mls/hr Q24H PRN IV Restlessness 12/16/19 10:45 03/15/20 10:44 12/23/19 06:01 Midodrine (Pro-Amatine) 10 mg THREE TIMES A DAY ORAL 12/12/19 13:00 03/11/20 12:59 12/23/19 08:35 Norepinephrine Bitartrate 8 mg/ Dextrose 250 ml @ 0 mls/hr Q24H IV 12/18/19 09:00 01/17/20 08:59 12/23/19 03:01 Ondansetron HCl (Zofran) 4 mg Q6H PRN IVP Nausea & Vomiting 11/29/19 14:15 12/29/19 14:14 Pantoprazole (Protonix) 40 mg DAILY IVP 11/30/19 12:15 12/30/19 12:14 12/23/19 08:35 Sevelamer Carbonate (Renvela) 800 mg THREE TIMES A DAY NG 12/22/19 13:00 03/21/20 12:59 12/23/19 08:35 Vancomycin HCl (Firvanq) 125 mg FOUR TIMES A DAY ORAL 12/22/19 21:00 12/29/19 20:59 12/23/19 08:35 Vancomycin HCl (Vanco rx to dose) 1 ea DAILY PRN MISC Per rx protocol 12/08/19 19:30 01/07/20 19:29 Vitamin B Complex/ Vit C/Folic Acid (Nephrovite) 1 tab DAILY NG 12/16/19 09:00 01/15/20 08:59 12/23/19 08:35 Laboratory Tests 12/22/19 16:00: Prothrombin Time 9.8, Prothromb Time International Ratio 0.9, Activated Partial Thromboplast Time 27, Fibrinogen 755H, Fibrin Degradation Products, Quant [ Pending], D-Dimer 13.39H 12/23/19 04:00: Urine Color [Pending], Urine Appearance [Pending], Urine pH [Pending], Urine Specific [place] [Pending], Urine Protein [Pending], Urine Glucose (UA) [Pending ], Urine Ketones [Pending], Urine Blood [Pending], Urine Nitrite [Pending], Urine Bilirubin [Pending], Urine Urobilinogen [Pending], Urine Leukocyte Esterase [Pending] 12/23/19 04:14: White Blood Count 30.9*H, Red Blood Count 2.63L, Hemoglobin 7.8L, Hematocrit 24.8L, Mean Corpuscular Volume 94, Mean Corpuscular Hemoglobin 29.6, Mean Corpuscular Hemoglobin Concent 31.4L, Red Cell Distribution Width 15.2H, Platelet Count 249, Mean Platelet Volume 6.2L, Neutrophils (%) (Auto) , Lymphocytes (%) (Auto) , Monocytes (%) (Auto) , Eosinophils (%) (Auto) , Basophils (%) (Auto) , Differential Total Cells Counted 100, Neutrophils % ( Manual) 84H, Lymphocytes % (Manual) 7L, Monocytes % (Manual) 5, Eosinophils % ( Manual) 3, Basophils % (Manual) 1, Band Neutrophils 0, Platelet Estimate Adequate, Platelet Morphology Normal, Hypochromasia 3+, Anisocytosis 1+, Sodium Level 138, Potassium Level 4.2, Chloride Level 97L, Carbon Dioxide Level 33H, Anion Gap 8, Blood Urea Nitrogen 65H, Creatinine 5.3#H, Estimat Glomerular Filtration Rate 11.2, Glucose Level 115H, Calcium Level 8.8, Phosphorus Level 7.8H, Magnesium Level 2.9H, Total Bilirubin 0.5, Aspartate Amino Transf (AST/ SGOT) 61H, Alanine Aminotransferase (ALT/SGPT) 50, Alkaline Phosphatase 264H, Total Protein 6.7, Albumin 2.2L, Globulin 4.5, Albumin/Globulin Ratio 0.5L Height (Feet): 5 Height (Inches): 6.00 Weight (Pounds): 159 Objective stable no bleeding at prepuce barnes indwelling, marge urine Kai Berger MD December 23, 2019 09:04
[2019-12-23 09:34] LABS: APPEARANCE,URINE SLIGHTLY CLOUDY; BILIRUBIN, URINE NEGATIVE (NEGATIVE); COLOR,URINE BROWN; GLUCOSE, URINE (UA) 2+ (NEGATIVE); KETONES,URINE 1+ (NEGATIVE); LEUKOCYTE ESTERASE ,URINE 2+ (NEGATIVE); NITRITE,URINE POSITIVE (NEGATIVE); PH,URINE 5 (4.5-8.0); PROTEIN,URINE 4+ (NEGATIVE); UROBILINOGEN,URINE 1 MG/DL (0.0-1.0)
--- NOTE | 2019-12-23 09:45 | NUR ---
NURSE NOTES: Hemodialysis nurse So Young aware of order placed by dr. augustine for dialysis this afternoon. will return around 1400 to start dialysis.
--- NOTE | 2019-12-23 10:55 | Nephrology Progress Note ---
Assessment/Plan Plan #ALBARO- concerns for developing ischemic ATN in the setting of sepsis- r/o vanco toxicity - r/o COVID nephropathy - now with likely ATN #Hyperkalemia due to renal insuffiency - exacerbated by acidosis #COID sepsis #COVID pneumonia #hypoxemic respiratary failure #HTN- now in shock #mediastinal PTX - nexy HD today - albumin 25g before HD - midodorine 10mg q8hr - add sevelamer 800mg TID - monitor I&Os - daily weights - monitor lytes closely -add nephrovite - GOALS of care discussion - continue pressor support to maintain MAP > 65- continue levo - continue fentanyl dip - abx per ID- on vanco and meropenem - vent management per pulm -Abd Xray shows mediastinal PTX - too high risk for thorocotomy Subjective ROS Limited/Unobtainable: Yes Subjective remains oliguric plan for HD today on Fio2 70 on levo Abd Xray shows mediastinal PTX Objective Objective Last 24 Hour Vital Signs Date Time Temp Pulse Resp B/P (MAP) Pulse Ox O2 Delivery O2 Flow Rate FiO2 12/23/19 10:39 113 35 60 12/23/19 09:00 114 32 104/52 (69) 95 12/23/19 08:30 117 31 104/49 (67) 95 12/23/19 08:00 Mechanical Ventilator 12/23/19 08:00 100.1 117 31 101/51 (68) 96 12/23/19 08:00 70 12/23/19 07:30 117 29 96/48 (64) 98 12/23/19 07:20 116 27 70 12/23/19 07:00 117 28 105/47 (66) 98 12/23/19 06:30 117 29 94/50 (65) 100 12/23/19 06:01 32 Mechanical Ventilator 80 12/23/19 06:00 32 Mechanical Ventilator 80 12/23/19 06:00 92/46 12/23/19 06:00 32 Mechanical Ventilator 80 12/23/19 06:00 115 32 92/46 (61) 95 12/23/19 05:36 29 Mechanical Ventilator 80 12/23/19 05:30 116 32 111/53 (72) 99 12/23/19 05:00 117 24 103/52 (69) 100 5/11/20 05:00 24 Mechanical Ventilator 80 12/23/19 05:00 103/52 12/23/19 05:00 24 Mechanical Ventilator 80 12/23/19 04:30 118 23 102/52 (69) 100 12/23/19 04:00 80 12/23/19 04:00 23 Mechanical Ventilator 80 12/23/19 04:00 104/52 12/23/19 04:00 23 Mechanical Ventilator 80 12/23/19 04:00 98.9 118 23 104/52 (69) 99 12/23/19 04:00 Mechanical Ventilator 12/23/19 04:00 121 12/23/19 03:30 119 22 100/48 (65) 98 12/23/19 03:01 105/55 12/23/19 03:00 121 23 105/47 (66) 97 12/23/19 03:00 119 29 80 12/23/19 03:00 23 Mechanical Ventilator 80 12/23/19 03:00 105/47 12/23/19 03:00 23 Mechanical Ventilator 100 12/23/19 02:30 120 20 103/51 (68) 100 12/23/19 02:00 80 12/23/19 02:00 121 20 104/48 (66) 100 12/23/19 02:00 20 Mechanical Ventilator 80 12/23/19 02:00 104/48 12/23/19 02:00 20 80 12/23/19 01:30 121 20 101/53 (69) 100 12/23/19 01:01 100.2 12/23/19 01:00 122 20 103/51 (68) 100 12/23/19 01:00 20 Mechanical Ventilator 100 12/23/19 01:00 103/51 12/23/19 01:00 20 Mechanical Ventilator 100 12/23/19 00:30 122 21 110/53 (72) 100 12/23/19 00:00 100.3 121 20 110/54 (72) 100 12/23/19 00:00 20 Mechanical Ventilator 100 12/23/19 00:00 110/54 12/23/19 00:00 20 Mechanical Ventilator 100 12/23/19 00:00 121 12/23/19 00:00 100 12/23/19 00:00 Mechanical Ventilator 12/22/19 23:30 121 20 112/52 (72) 100 12/22/19 23:30 110 25 100 12/22/19 23:00 120 21 115/54 (74) 100 12/22/19 23:00 24 Mechanical Ventilator 100 12/22/19 23:00 115/54 12/22/19 23:00 24 Mechanical Ventilator 100 12/22/19 22:30 119 22 113/54 (73) 100 12/22/19 22:00 119 21 115/58 (77) 100 12/22/19 22:00 22 Mechanical Ventilator 100 12/22/19 22:00 115/58 12/22/19 22:00 22 Mechanical Ventilator 100 12/22/19 21:30 119 22 111/55 (73) 100 12/22/19 21:00 100.4 120 22 107/51 (69) 100 12/22/19 21:00 22 Mechanical Ventilator 100 12/22/19 21:00 107/51 12/22/19 21:00 27 Mechanical Ventilator 100 12/22/19 20:30 119 21 110/57 (74) 100 12/22/19 20:00 121 22 113/54 (73) 100 12/22/19 20:00 19 Mechanical Ventilator 100 12/22/19 20:00 123/53 12/22/19 20:00 19 Mechanical Ventilator 100 12/22/19 20:00 122 12/22/19 20:00 Mechanical Ventilator 12/22/19 20:00 100 12/22/19 19:30 121 23 123/53 (76) 100 12/22/19 19:15 121 26 100 12/22/19 19:00 21 Mechanical Ventilator 100 12/22/19 19:00 121/56 12/22/19 19:00 21 100 12/22/19 19:00 119 23 121/56 (77) 100 12/22/19 18:30 117 23 118/59 (78) 100 12/22/19 18:00 24 Mechanical Ventilator 100 12/22/19 18:00 121/58 12/22/19 18:00 24 Mechanical Ventilator 100 12/22/19 18:00 117 24 121/58 (79) 100 12/22/19 17:30 119 25 112/55 (74) 100 12/22/19 17:00 120 25 112/54 (73) 100 12/22/19 17:00 23 Mechanical Ventilator 100 12/22/19 17:00 112/55 12/22/19 17:00 23 Mechanical Ventilator 100 12/22/19 16:30 120 25 117/54 (75) 100 12/22/19 16:00 100 12/22/19 16:00 Mechanical Ventilator 12/22/19 16:00 24 Mechanical Ventilator 100 12/22/19 16:00 114/58 12/22/19 16:00 24 Mechanical Ventilator 100 12/22/19 16:00 118 25 106/57 (73) 100 12/22/19 16:00 119 12/22/19 15:30 98.9 120 25 114/58 (76) 100 12/22/19 15:00 119 24 65 12/22/19 15:00 118 25 114/58 (76) 100 12/22/19 15:00 25 Mechanical Ventilator 100 12/22/19 15:00 114/58 12/22/19 15:00 25 Mechanical Ventilator 100 12/22/19 14:30 117 25 121/59 (79) 100 12/22/19 14:14 107/52 12/22/19 14:00 121 29 90/49 (63) 100 12/22/19 14:00 26 Mechanical Ventilator 100 12/22/19 14:00 26 Mechanical Ventilator 100 12/22/19 13:51 23 Mechanical Ventilator 100 12/22/19 13:30 121 25 93/46 (62) 100 12/22/19 13:00 118 23 96/51 (66) 100 12/22/19 13:00 23 Mechanical Ventilator 100 12/22/19 13:00 96/51 12/22/19 13:00 23 Mechanical Ventilator 100 12/22/19 12:30 117 22 112/56 (74) 100 12/22/19 12:00 98.6 117 23 107/52 (70) 100 12/22/19 12:00 Mechanical Ventilator 12/22/19 12:00 22 Mechanical Ventilator 100 12/22/19 12:00 107/52 12/22/19 12:00 22 Mechanical Ventilator 100 12/22/19 12:00 100 12/22/19 12:00 118 12/22/19 11:30 115 23 110/55 (73) 100 12/22/19 11:00 22 Mechanical Ventilator 100 12/22/19 11:00 114/56 12/22/19 11:00 22 Mechanical Ventilator 100 12/22/19 11:00 114 21 114/56 (75) 100 Intake and Output 12/22/19 12/23/19 19:00 07:00 Intake Total 1016.25 ml 1186.50 ml Output Total 5 ml 10 ml Balance 1011.25 ml 1176.50 ml Free Water 100 ml 100 ml IV Total 446.25 ml 566.50 ml Tube Feeding 420 ml 420 ml Blood Product 100 ml Other 50 ml Output Urine Total 5 ml 10 ml Laboratory Tests 12/22/19 16:00: Prothrombin Time 9.8, Prothromb Time International Ratio 0.9, Activated Partial Thromboplast Time 27, Fibrinogen 755H, Fibrin Degradation Products, Quant [ Pending], D-Dimer 13.39H 12/23/19 04:00: Urine Color Brown, Urine Appearance Slightly cloudy, Urine pH 5, Urine Specific [place] 1.015, Urine Protein 4+H, Urine Glucose (UA) 2+H, Urine Ketones 1+H, Urine Blood 5+H, Urine Nitrite PositiveH, Urine Bilirubin Negative, Urine Urobilinogen 1H, Urine Leukocyte Esterase 2+H, Urine RBC 15-20H, Urine WBC 5-10H , Urine Squamous Epithelial Cells Occasional, Urine Bacteria ModerateH 12/23/19 04:14: White Blood Count 30.9*H, Red Blood Count 2.63L, Hemoglobin 7.8L, Hematocrit 24.8L, Mean Corpuscular Volume 94, Mean Corpuscular Hemoglobin 29.6, Mean Corpuscular Hemoglobin Concent 31.4L, Red Cell Distribution Width 15.2H, Platelet Count 249, Mean Platelet Volume 6.2L, Neutrophils (%) (Auto) , Lymphocytes (%) (Auto) , Monocytes (%) (Auto) , Eosinophils (%) (Auto) , Basophils (%) (Auto) , Differential Total Cells Counted 100, Neutrophils % ( Manual) 84H, Lymphocytes % (Manual) 7L, Monocytes % (Manual) 5, Eosinophils % ( Manual) 3, Basophils % (Manual) 1, Band Neutrophils 0, Platelet Estimate Adequate, Platelet Morphology Normal, Hypochromasia 3+, Anisocytosis 1+, Sodium Level 138, Potassium Level 4.2, Chloride Level 97L, Carbon Dioxide Level 33H, Anion Gap 8, Blood Urea Nitrogen 65H, Creatinine 5.3#H, Estimat Glomerular Filtration Rate 11.2, Glucose Level 115H, Calcium Level 8.8, Phosphorus Level 7.8H, Magnesium Level 2.9H, Total Bilirubin 0.5, Aspartate Amino Transf (AST/ SGOT) 61H, Alanine Aminotransferase (ALT/SGPT) 50, Alkaline Phosphatase 264H, Total Protein 6.7, Albumin 2.2L, Globulin 4.5, Albumin/Globulin Ratio 0.5L Height (Feet): 5 Height (Inches): 6.00 Weight (Pounds): 159 Objective General Appearance: other - intubated- proned Lines, tubes and drains: central line HEENT: normocephalic, atraumatic Respiratory/Chest: rhonchi - bilaterally Cardiovascular/Chest: other - tachycardic Extremities: pitting Dorian Soriano M.D. December 23, 2019 10:55
--- NOTE | 2019-12-23 11:27 | General Progress Note ---
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 - Interstitial emphysema SNOMED: 34283503 (7) COVID-19 ICD Codes: U07.1 - COVID-19 SNOMED: 294019042 (8) Hypotension ICD Codes: I95.9 - Hypotension, unspecified SNOMED: 34858870 Status: unchanged Assessment/Plan: NGTF rectal tube in place elevated LFTS most likely due to shock liver>>> improving repeat labs in am hepatitis panel>>>Neg fu nephrology recent labs and notes reviewed D/W the nurse Subjective ROS Limited/Unobtainable: No Allergies: Coded Allergies: No Known Allergies (Unverified , 11/29/19) Objective Last 24 Hour Vital Signs Date Time Temp Pulse Resp B/P (MAP) Pulse Ox O2 Delivery O2 Flow Rate FiO2 12/23/19 10:39 113 35 60 12/23/19 09:00 114 32 104/52 (69) 95 12/23/19 08:30 117 31 104/49 (67) 95 12/23/19 08:00 Mechanical Ventilator 12/23/19 08:00 100.1 117 31 101/51 (68) 96 12/23/19 08:00 70 12/23/19 07:30 117 29 96/48 (64) 98 12/23/19 07:20 116 27 70 12/23/19 07:00 117 28 105/47 (66) 98 12/23/19 06:30 117 29 94/50 (65) 100 12/23/19 06:01 32 Mechanical Ventilator 80 12/23/19 06:00 32 Mechanical Ventilator 80 12/23/19 06:00 92/46 12/23/19 06:00 32 Mechanical Ventilator 80 5/11/20 06:00 115 32 92/46 (61) 95 12/23/19 05:36 29 Mechanical Ventilator 80 12/23/19 05:30 116 32 111/53 (72) 99 12/23/19 05:00 117 24 103/52 (69) 100 12/23/19 05:00 24 Mechanical Ventilator 80 12/23/19 05:00 103/52 12/23/19 05:00 24 Mechanical Ventilator 80 12/23/19 04:30 118 23 102/52 (69) 100 12/23/19 04:00 80 12/23/19 04:00 23 Mechanical Ventilator 80 12/23/19 04:00 104/52 12/23/19 04:00 23 Mechanical Ventilator 80 12/23/19 04:00 98.9 118 23 104/52 (69) 99 12/23/19 04:00 Mechanical Ventilator 12/23/19 04:00 121 12/23/19 03:30 119 22 100/48 (65) 98 12/23/19 03:01 105/55 12/23/19 03:00 121 23 105/47 (66) 97 12/23/19 03:00 119 29 80 12/23/19 03:00 23 Mechanical Ventilator 80 12/23/19 03:00 105/47 12/23/19 03:00 23 Mechanical Ventilator 100 12/23/19 02:30 120 20 103/51 (68) 100 12/23/19 02:00 80 12/23/19 02:00 121 20 104/48 (66) 100 12/23/19 02:00 20 Mechanical Ventilator 80 12/23/19 02:00 104/48 12/23/19 02:00 20 80 12/23/19 01:30 121 20 101/53 (69) 100 12/23/19 01:01 100.2 12/23/19 01:00 122 20 103/51 (68) 100 12/23/19 01:00 20 Mechanical Ventilator 100 12/23/19 01:00 103/51 12/23/19 01:00 20 Mechanical Ventilator 100 12/23/19 00:30 122 21 110/53 (72) 100 12/23/19 00:00 100.3 121 20 110/54 (72) 100 12/23/19 00:00 20 Mechanical Ventilator 100 12/23/19 00:00 110/54 12/23/19 00:00 20 Mechanical Ventilator 100 12/23/19 00:00 121 12/23/19 00:00 100 12/23/19 00:00 Mechanical Ventilator 12/22/19 23:30 121 20 112/52 (72) 100 12/22/19 23:30 110 25 100 12/22/19 23:00 120 21 115/54 (74) 100 12/22/19 23:00 24 Mechanical Ventilator 100 12/22/19 23:00 115/54 12/22/19 23:00 24 Mechanical Ventilator 100 12/22/19 22:30 119 22 113/54 (73) 100 12/22/19 22:00 119 21 115/58 (77) 100 12/22/19 22:00 22 Mechanical Ventilator 100 12/22/19 22:00 115/58 12/22/19 22:00 22 Mechanical Ventilator 100 12/22/19 21:30 119 22 111/55 (73) 100 12/22/19 21:00 100.4 120 22 107/51 (69) 100 12/22/19 21:00 22 Mechanical Ventilator 100 12/22/19 21:00 107/51 12/22/19 21:00 27 Mechanical Ventilator 100 12/22/19 20:30 119 21 110/57 (74) 100 12/22/19 20:00 121 22 113/54 (73) 100 12/22/19 20:00 19 Mechanical Ventilator 100 12/22/19 20:00 123/53 12/22/19 20:00 19 Mechanical Ventilator 100 12/22/19 20:00 122 12/22/19 20:00 Mechanical Ventilator 12/22/19 20:00 100 12/22/19 19:30 121 23 123/53 (76) 100 12/22/19 19:15 121 26 100 12/22/19 19:00 21 Mechanical Ventilator 100 12/22/19 19:00 121/56 12/22/19 19:00 21 100 12/22/19 19:00 119 23 121/56 (77) 100 12/22/19 18:30 117 23 118/59 (78) 100 12/22/19 18:00 24 Mechanical Ventilator 100 12/22/19 18:00 121/58 12/22/19 18:00 24 Mechanical Ventilator 100 12/22/19 18:00 117 24 121/58 (79) 100 12/22/19 17:30 119 25 112/55 (74) 100 12/22/19 17:00 120 25 112/54 (73) 100 12/22/19 17:00 23 Mechanical Ventilator 100 12/22/19 17:00 112/55 12/22/19 17:00 23 Mechanical Ventilator 100 12/22/19 16:30 120 25 117/54 (75) 100 12/22/19 16:00 100 12/22/19 16:00 Mechanical Ventilator 12/22/19 16:00 24 Mechanical Ventilator 100 12/22/19 16:00 114/58 12/22/19 16:00 24 Mechanical Ventilator 100 12/22/19 16:00 118 25 106/57 (73) 100 12/22/19 16:00 119 12/22/19 15:30 98.9 120 25 114/58 (76) 100 12/22/19 15:00 119 24 65 12/22/19 15:00 118 25 114/58 (76) 100 12/22/19 15:00 25 Mechanical Ventilator 100 12/22/19 15:00 114/58 12/22/19 15:00 25 Mechanical Ventilator 100 12/22/19 14:30 117 25 121/59 (79) 100 12/22/19 14:14 107/52 12/22/19 14:00 121 29 90/49 (63) 100 12/22/19 14:00 26 Mechanical Ventilator 100 12/22/19 14:00 26 Mechanical Ventilator 100 12/22/19 13:51 23 Mechanical Ventilator 100 12/22/19 13:30 121 25 93/46 (62) 100 12/22/19 13:00 118 23 96/51 (66) 100 12/22/19 13:00 23 Mechanical Ventilator 100 12/22/19 13:00 96/51 12/22/19 13:00 23 Mechanical Ventilator 100 12/22/19 12:30 117 22 112/56 (74) 100 12/22/19 12:00 98.6 117 23 107/52 (70) 100 12/22/19 12:00 Mechanical Ventilator 12/22/19 12:00 22 Mechanical Ventilator 100 12/22/19 12:00 107/52 12/22/19 12:00 22 Mechanical Ventilator 100 12/22/19 12:00 100 5/10/20 12:00 118 12/22/19 11:30 115 23 110/55 (73) 100 Intake and Output 12/22/19 12/23/19 19:00 07:00 Intake Total 1016.25 ml 1225.25 ml Output Total 5 ml 10 ml Balance 1011.25 ml 1215.25 ml Free Water 100 ml 100 ml IV Total 446.25 ml 605.25 ml Tube Feeding 420 ml 420 ml Blood Product 100 ml Other 50 ml Output Urine Total 5 ml 10 ml Laboratory Tests 12/22/19 16:00: Prothrombin Time 9.8, Prothromb Time International Ratio 0.9, Activated Partial Thromboplast Time 27, Fibrinogen 755H, Fibrin Degradation Products, Quant [ Pending], D-Dimer 13.39H 12/23/19 04:00: Urine Color Brown, Urine Appearance Slightly cloudy, Urine pH 5, Urine Specific [place] 1.015, Urine Protein 4+H, Urine Glucose (UA) 2+H, Urine Ketones 1+H, Urine Blood 5+H, Urine Nitrite PositiveH, Urine Bilirubin Negative, Urine Urobilinogen 1H, Urine Leukocyte Esterase 2+H, Urine RBC 15-20H, Urine WBC 5-10H , Urine Squamous Epithelial Cells Occasional, Urine Bacteria ModerateH 12/23/19 04:14: White Blood Count 30.9*H, Red Blood Count 2.63L, Hemoglobin 7.8L, Hematocrit 24.8L, Mean Corpuscular Volume 94, Mean Corpuscular Hemoglobin 29.6, Mean Corpuscular Hemoglobin Concent 31.4L, Red Cell Distribution Width 15.2H, Platelet Count 249, Mean Platelet Volume 6.2L, Neutrophils (%) (Auto) , Lymphocytes (%) (Auto) , Monocytes (%) (Auto) , Eosinophils (%) (Auto) , Basophils (%) (Auto) , Differential Total Cells Counted 100, Neutrophils % ( Manual) 84H, Lymphocytes % (Manual) 7L, Monocytes % (Manual) 5, Eosinophils % ( Manual) 3, Basophils % (Manual) 1, Band Neutrophils 0, Platelet Estimate Adequate, Platelet Morphology Normal, Hypochromasia 3+, Anisocytosis 1+, Sodium Level 138, Potassium Level 4.2, Chloride Level 97L, Carbon Dioxide Level 33H, Anion Gap 8, Blood Urea Nitrogen 65H, Creatinine 5.3#H, Estimat Glomerular Filtration Rate 11.2, Glucose Level 115H, Calcium Level 8.8, Phosphorus Level 7.8H, Magnesium Level 2.9H, Total Bilirubin 0.5, Aspartate Amino Transf (AST/ SGOT) 61H, Alanine Aminotransferase (ALT/SGPT) 50, Alkaline Phosphatase 264H, Total Protein 6.7, Albumin 2.2L, Globulin 4.5, Albumin/Globulin Ratio 0.5L Height (Feet): 5 Height (Inches): 6.00 Weight (Pounds): 159 General Appearance: no apparent distress EENT: normal ENT inspection Neck: supple Cardiovascular: normal rate Respiratory/Chest: decreased breath sounds Abdomen: normal bowel sounds, non tender, soft Extremities: non-tender João Rdz MD December 23, 2019 11:27
--- NOTE | 2019-12-23 11:57 | Hematology/Onc Progress Note ---
Assessment/Plan Assessment/Plan # Leukocytosis/elevated white blood cell count, unspecified likely related to underlying stress reaction and addition of infection, COVID19++ on vent, intubated --> have reviewed peripheral smear and bandemia/neutrophilia noted --> continue antibiotics if they have been started by ID team --> on broad spectrum abx cefepime/flag/vanc-->katie/vanc/difluc --> monitor for resolution --> smear is noted, with metamyelocytes --> wbc trend 18-->24-->32.9-->34k-->27->26-->32->31 --> ID is aware --> again ordered peripheral smear for path review-->reviewed and no blasts noted # Anemia of chronic disease due to underlying chronic medical issues, multifactorial v Gi bleed --> Anemia workup has been ordered, rule out gi bleed --> No evidence of hemolysis is noted, peripheral smear has been reviewed. --> Hgb goal >7. Transfuse prn. --> Epogen or iron at this time is not particularly indicated --> Medications have been reviewed --> low threshold for gi evaluation in case has occult + ==> hgb trend 11-->10.7-->10.4-->9.3-->9.1 # Thrombocytopenia also likely covid related --> supportive care --> plt 149-->164k-->154->195 --> smear noted # Acute Hypoxic Respiratory Failure s/p intubation --> now on vent --> as per Dr. Cortes, weaning prn # COVID19 positive --> abx # Pneumomediastinum --> monitor for expansion --> on vent # Subcutaneous emphysema --> too high risk for bedside thoracostomy # ALBARO on ckd --> hd as needed --> per renal # femoral HD cath placed 12/04 --> hd prn # Dvt ppx scds ANDREW Rn and appreciate consultation Subjective Genitourinary: Denies: no symptoms, burning, discharge, frequency, flank pain, hematuria, incontinence, pain, urgency, other Neurologic/Psychiatric: Denies: no symptoms, anxiety, depressed, emotional problems, headache, numbness, paresthesia, pre-existing deficit, seizure, tingling, tremors, weakness, other Endocrine: Denies: no symptoms, excessive sweating, flushing, intolerance to cold, intolerance to heat, increased hunger, increased thirst, increased urine, unexplained weight gain, unexplained weight loss, other Allergies: Coded Allergies: No Known Allergies (Unverified , 11/29/19) Subjective 12/12 remains on vent, ogtube, barnes and rectal tube emptied, right fem jia line 12/14 icu, prone, levo gtt, multiple abx, labs reviewed 12/15 nonv, no bleeding, remains in vent, no bleeding, wbc high, on abx per id 12/16 nonv, on vent, ng, rectal tube, wbc still 34k 12/17 icu, levo gtt, on katie/vanc, tachy 12/18 in icu, on ng tube feeds, vent, no bleeding, jia in place 12/19 in the icu, no bleeding, ngt, with rectal tube, no bleeding ebc 28k 12/21 is with higer wbc, on katie/vanc/diflucan, id aware, on vent 12/22 hgb 7.8, remains on vent, abx as well, labs reviewed wbc 31k Objective Objective Current Medications Medications (Trade) Dose Ordered Sig/Vicki Route PRN Reason Start Time Stop Time Status Last Admin Dose Admin Acetaminophen (Tylenol) 650 mg Q4H PRN NG Temp >100.5 12/06/19 14:15 01/05/20 14:14 12/23/19 00:31 Acetaminophen (Tylenol) 650 mg Q4H PRN RECTAL Mild Pain (Pain Scale 1-3) 12/04/19 11:45 01/03/20 11:44 12/06/19 19:17 Albumin Human 50 ml @ 50 mls/hr ONCE ONCE IV 12/23/19 11:00 12/23/19 11:59 Chlorhexidine Gluconate (Arely-Hex 2%) 1 applic DAILY@1999 TOPIC 12/05/19 20:00 03/04/20 19:59 12/22/19 20:22 Dextrose (Dextrose 50%) 25 ml Q30M PRN IV Hypoglycemia 11/29/19 14:15 02/27/20 14:14 Dextrose (Dextrose 50%) 50 ml Q30M PRN IV Hypoglycemia 11/29/19 14:15 02/27/20 14:14 Fentanyl Citrate 2500 mcg/Sodium Chloride 250 ml @ 0 mls/hr Q24H IV 12/20/19 00:00 12/27/19 00:00 12/23/19 05:36 Fluconazole/ Sodium Chloride 100 ml @ 100 mls/hr Q24H IV 12/22/19 22:00 12/29/19 21:59 12/22/19 20:23 Folic Acid (Folate) 1 mg DAILY NG 12/18/19 09:00 01/17/20 08:59 12/23/19 08:35 Hydralazine HCl (Apresoline) 10 mg Q4H PRN IV For High Blood Pressure 11/29/19 15:15 02/27/20 15:14 Loperamide HCl (Imodium) 2 mg Q6H PRN NG Diarrhea 12/12/19 12:45 01/11/20 12:44 Meropenem 500 mg/ Sodium Chloride 50 ml @ 100 mls/hr Q24H IVPB 12/20/19 21:30 12/25/19 21:29 12/22/19 20:22 Midazolam HCl 100 ml @ 0 mls/hr Q24H PRN IV Restlessness 12/16/19 10:45 03/15/20 10:44 12/23/19 06:01 Midodrine (Pro-Amatine) 10 mg THREE TIMES A DAY ORAL 12/12/19 13:00 03/11/20 12:59 12/23/19 08:35 Norepinephrine Bitartrate 8 mg/ Dextrose 250 ml @ 0 mls/hr Q24H IV 12/18/19 09:00 01/17/20 08:59 12/23/19 03:01 Ondansetron HCl (Zofran) 4 mg Q6H PRN IVP Nausea & Vomiting 11/29/19 14:15 12/29/19 14:14 Pantoprazole (Protonix) 40 mg DAILY IVP 11/30/19 12:15 12/30/19 12:14 12/23/19 08:35 Sevelamer Carbonate (Renvela) 800 mg THREE TIMES A DAY NG 12/22/19 13:00 03/21/20 12:59 12/23/19 08:35 Vancomycin HCl (Firvanq) 125 mg FOUR TIMES A DAY ORAL 12/22/19 21:00 12/29/19 20:59 12/23/19 08:35 Vancomycin HCl (Vanco rx to dose) 1 ea DAILY PRN MISC Per rx protocol 12/08/19 19:30 01/07/20 19:29 Vitamin B Complex/ Vit C/Folic Acid (Nephrovite) 1 tab DAILY NG 12/16/19 09:00 01/15/20 08:59 12/23/19 08:35 Last 24 Hour Vital Signs Date Time Temp Pulse Resp B/P (MAP) Pulse Ox O2 Delivery O2 Flow Rate FiO2 12/23/19 10:39 113 35 60 12/23/19 09:00 114 32 104/52 (69) 95 12/23/19 08:30 117 31 104/49 (67) 95 12/23/19 08:00 Mechanical Ventilator 12/23/19 08:00 100.1 117 31 101/51 (68) 96 12/23/19 08:00 70 12/23/19 07:30 117 29 96/48 (64) 98 12/23/19 07:20 116 27 70 12/23/19 07:00 117 28 105/47 (66) 98 12/23/19 06:30 117 29 94/50 (65) 100 12/23/19 06:01 32 Mechanical Ventilator 80 12/23/19 06:00 32 Mechanical Ventilator 80 12/23/19 06:00 92/46 12/23/19 06:00 32 Mechanical Ventilator 80 12/23/19 06:00 115 32 92/46 (61) 95 12/23/19 05:36 29 Mechanical Ventilator 80 12/23/19 05:30 116 32 111/53 (72) 99 12/23/19 05:00 117 24 103/52 (69) 100 12/23/19 05:00 24 Mechanical Ventilator 80 12/23/19 05:00 103/52 12/23/19 05:00 24 Mechanical Ventilator 80 12/23/19 04:30 118 23 102/52 (69) 100 12/23/19 04:00 80 12/23/19 04:00 23 Mechanical Ventilator 80 12/23/19 04:00 104/52 12/23/19 04:00 23 Mechanical Ventilator 80 12/23/19 04:00 98.9 118 23 104/52 (69) 99 12/23/19 04:00 Mechanical Ventilator 12/23/19 04:00 121 12/23/19 03:30 119 22 100/48 (65) 98 12/23/19 03:01 105/55 12/23/19 03:00 121 23 105/47 (66) 97 12/23/19 03:00 119 29 80 12/23/19 03:00 23 Mechanical Ventilator 80 12/23/19 03:00 105/47 12/23/19 03:00 23 Mechanical Ventilator 100 12/23/19 02:30 120 20 103/51 (68) 100 12/23/19 02:00 80 12/23/19 02:00 121 20 104/48 (66) 100 12/23/19 02:00 20 Mechanical Ventilator 80 12/23/19 02:00 104/48 12/23/19 02:00 20 80 12/23/19 01:30 121 20 101/53 (69) 100 12/23/19 01:01 100.2 12/23/19 01:00 122 20 103/51 (68) 100 12/23/19 01:00 20 Mechanical Ventilator 100 12/23/19 01:00 103/51 12/23/19 01:00 20 Mechanical Ventilator 100 12/23/19 00:30 122 21 110/53 (72) 100 12/23/19 00:00 100.3 121 20 110/54 (72) 100 12/23/19 00:00 20 Mechanical Ventilator 100 12/23/19 00:00 110/54 12/23/19 00:00 20 Mechanical Ventilator 100 12/23/19 00:00 121 12/23/19 00:00 100 12/23/19 00:00 Mechanical Ventilator 12/22/19 23:30 121 20 112/52 (72) 100 12/22/19 23:30 110 25 100 12/22/19 23:00 120 21 115/54 (74) 100 12/22/19 23:00 24 Mechanical Ventilator 100 12/22/19 23:00 115/54 12/22/19 23:00 24 Mechanical Ventilator 100 12/22/19 22:30 119 22 113/54 (73) 100 12/22/19 22:00 119 21 115/58 (77) 100 12/22/19 22:00 22 Mechanical Ventilator 100 12/22/19 22:00 115/58 12/22/19 22:00 22 Mechanical Ventilator 100 12/22/19 21:30 119 22 111/55 (73) 100 12/22/19 21:00 100.4 120 22 107/51 (69) 100 12/22/19 21:00 22 Mechanical Ventilator 100 12/22/19 21:00 107/51 12/22/19 21:00 27 Mechanical Ventilator 100 12/22/19 20:30 119 21 110/57 (74) 100 12/22/19 20:00 121 22 113/54 (73) 100 12/22/19 20:00 19 Mechanical Ventilator 100 12/22/19 20:00 123/53 12/22/19 20:00 19 Mechanical Ventilator 100 12/22/19 20:00 122 12/22/19 20:00 Mechanical Ventilator 12/22/19 20:00 100 12/22/19 19:30 121 23 123/53 (76) 100 12/22/19 19:15 121 26 100 12/22/19 19:00 21 Mechanical Ventilator 100 12/22/19 19:00 121/56 12/22/19 19:00 21 100 12/22/19 19:00 119 23 121/56 (77) 100 12/22/19 18:30 117 23 118/59 (78) 100 12/22/19 18:00 24 Mechanical Ventilator 100 12/22/19 18:00 121/58 12/22/19 18:00 24 Mechanical Ventilator 100 12/22/19 18:00 117 24 121/58 (79) 100 12/22/19 17:30 119 25 112/55 (74) 100 12/22/19 17:00 120 25 112/54 (73) 100 12/22/19 17:00 23 Mechanical Ventilator 100 12/22/19 17:00 112/55 12/22/19 17:00 23 Mechanical Ventilator 100 12/22/19 16:30 120 25 117/54 (75) 100 12/22/19 16:00 100 12/22/19 16:00 Mechanical Ventilator 12/22/19 16:00 24 Mechanical Ventilator 100 12/22/19 16:00 114/58 12/22/19 16:00 24 Mechanical Ventilator 100 12/22/19 16:00 118 25 106/57 (73) 100 12/22/19 16:00 119 12/22/19 15:30 98.9 120 25 114/58 (76) 100 12/22/19 15:00 119 24 65 12/22/19 15:00 118 25 114/58 (76) 100 12/22/19 15:00 25 Mechanical Ventilator 100 12/22/19 15:00 114/58 12/22/19 15:00 25 Mechanical Ventilator 100 12/22/19 14:30 117 25 121/59 (79) 100 12/22/19 14:14 107/52 12/22/19 14:00 121 29 90/49 (63) 100 12/22/19 14:00 26 Mechanical Ventilator 100 12/22/19 14:00 26 Mechanical Ventilator 100 12/22/19 13:51 23 Mechanical Ventilator 100 12/22/19 13:30 121 25 93/46 (62) 100 12/22/19 13:00 118 23 96/51 (66) 100 12/22/19 13:00 23 Mechanical Ventilator 100 12/22/19 13:00 96/51 12/22/19 13:00 23 Mechanical Ventilator 100 12/22/19 12:30 117 22 112/56 (74) 100 12/22/19 12:00 98.6 117 23 107/52 (70) 100 12/22/19 12:00 Mechanical Ventilator 12/22/19 12:00 22 Mechanical Ventilator 100 12/22/19 12:00 107/52 12/22/19 12:00 22 Mechanical Ventilator 100 12/22/19 12:00 100 12/22/19 12:00 118 12/22/19 11:30 115 23 110/55 (73) 100 12/22/19 11:00 22 Mechanical Ventilator 100 12/22/19 11:00 114/56 12/22/19 11:00 22 Mechanical Ventilator 100 12/22/19 11:00 114 21 114/56 (75) 100 12/22/19 10:35 111 22 65 12/22/19 10:28 112 21 116/50 (72) 100 12/22/19 10:12 24 Mechanical Ventilator 100 12/22/19 10:00 22 Mechanical Ventilator 100 12/22/19 10:00 109/52 12/22/19 10:00 22 Non-Rebreather 100 12/22/19 10:00 111 22 109/52 (71) 100 12/22/19 09:30 111 22 106/54 (71) 100 12/22/19 09:30 111 21 101/51 (68) 100 12/22/19 09:00 22 Mechanical Ventilator 12/22/19 09:00 101/51 12/22/19 09:00 22 Mechanical Ventilator 100 12/22/19 09:00 111 21 101/51 (68) 100 12/22/19 08:51 111 12/22/19 08:30 112 22 97/52 (67) 100 12/22/19 08:00 100 12/22/19 08:00 22 Mechanical Ventilator 100 12/22/19 08:00 99/47 12/22/19 08:00 22 Mechanical Ventilator 100 12/22/19 08:00 99.2 113 22 99/47 (64) 100 12/22/19 08:00 111 12/22/19 08:00 Mechanical Ventilator 12/22/19 07:30 112 23 97/54 (68) 100 12/22/19 07:00 111 22 65 12/22/19 07:00 21 Mechanical Ventilator 100 12/22/19 07:00 100/48 12/22/19 07:00 21 Mechanical Ventilator 100 12/22/19 07:00 111 21 100/48 (65) 100 12/22/19 06:30 109 22 100/47 (64) 100 12/22/19 06:00 22 Mechanical Ventilator 100 12/22/19 06:00 107/52 12/22/19 06:00 22 Mechanical Ventilator 100 12/22/19 06:00 105 22 107/52 (70) 100 12/22/19 05:30 106 23 95/49 (64) 100 12/22/19 05:00 25 Mechanical Ventilator 100 12/22/19 05:00 92/51 12/22/19 05:00 25 Mechanical Ventilator 100 12/22/19 05:00 108 25 92/51 (65) 100 12/22/19 04:30 98.9 110 25 90/50 (63) 100 12/22/19 04:00 100 12/22/19 04:00 29 Mechanical Ventilator 100 12/22/19 04:00 99/57 12/22/19 04:00 29 Mechanical Ventilator 100 12/22/19 04:00 113 12/22/19 04:00 Mechanical Ventilator 12/22/19 04:00 99.2 112 29 99/57 (71) 100 12/22/19 03:30 112 27 100/51 (67) 100 12/22/19 03:00 112 23 94/51 (65) 100 12/22/19 03:00 23 Mechanical Ventilator 100 12/22/19 03:00 94/51 12/22/19 03:00 23 Mechanical Ventilator 100 12/22/19 02:30 113 26 98/51 (67) 100 12/22/19 02:00 114 22 105/52 (69) 100 12/22/19 02:00 22 Mechanical Ventilator 100 12/22/19 02:00 105/52 12/22/19 02:00 22 Mechanical Ventilator 100 12/22/19 01:38 117 20 65 12/22/19 01:30 118 25 99/55 (70) 100 12/22/19 01:00 21 Mechanical Ventilator 100 12/22/19 01:00 102/55 12/22/19 01:00 21 Mechanical Ventilator 100 12/22/19 01:00 118 21 102/55 (71) 100 12/22/19 00:30 115 23 109/61 (77) 100 12/22/19 00:00 100 12/22/19 00:00 116 12/22/19 00:00 99.8 115 39 109/56 (73) 93 12/22/19 00:00 39 Mechanical Ventilator 100 12/22/19 00:00 109/59 12/22/19 00:00 39 Mechanical Ventilator 100 12/22/19 00:00 Mechanical Ventilator 12/21/19 23:30 115 39 109/57 (74) 95 12/21/19 23:28 103/56 12/21/19 23:00 99.9 115 38 103/56 (72) 95 12/21/19 22:42 118 40 65 12/21/19 22:30 111 22 94/53 (67) 95 12/21/19 22:00 118 38 116/59 (78) 94 12/21/19 22:00 38 Mechanical Ventilator 65 12/21/19 22:00 116/59 12/21/19 22:00 38 Mechanical Ventilator 65 12/21/19 21:30 119 40 111/55 (73) 95 12/21/19 21:09 38 Mechanical Ventilator 65 12/21/19 21:00 39 Mechanical Ventilator 65 12/21/19 21:00 104/57 12/21/19 21:00 39 Mechanical Ventilator 65 12/21/19 21:00 99.6 119 39 104/57 (73) 95 12/21/19 20:30 120 38 117/61 (79) 96 12/21/19 20:00 122 39 106/56 (73) 95 12/21/19 20:00 65 12/21/19 20:00 121 12/21/19 20:00 Mechanical Ventilator 12/21/19 20:00 39 Mechanical Ventilator 65 12/21/19 20:00 106/56 12/21/19 20:00 39 Mechanical Ventilator 65 12/21/19 19:30 122 38 117/61 (79) 95 12/21/19 19:06 122 38 65 12/21/19 19:00 125 38 107/64 (78) 93 12/21/19 19:00 36 Mechanical Ventilator 65 12/21/19 19:00 107/64 12/21/19 19:00 36 Mechanical Ventilator 65 12/21/19 18:30 119 38 119/63 (81) 98 12/21/19 18:00 38 Mechanical Ventilator 65 12/21/19 18:00 126/63 12/21/19 18:00 38 Mechanical Ventilator 65 12/21/19 18:00 118 38 126/63 (84) 93 12/21/19 17:30 119 38 127/63 (84) 91 12/21/19 17:00 37 Non-Rebreather 65 12/21/19 17:00 127/63 12/21/19 17:00 37 65 12/21/19 17:00 98.3 112 38 127/63 (84) 93 12/21/19 16:30 112 36 120/60 (80) 92 12/21/19 16:00 105 36 118/60 (79) 94 12/21/19 16:00 35 Mechanical Ventilator 65 12/21/19 16:00 118/60 12/21/19 16:00 35 Mechanical Ventilator 65 12/21/19 16:00 Mechanical Ventilator 12/21/19 16:00 112 12/21/19 15:30 108 36 100/49 (66) 93 12/21/19 15:08 105 35 65 12/21/19 15:00 105 28 124/55 (78) 91 12/21/19 15:00 34 Mechanical Ventilator 65 12/21/19 15:00 124/55 5/9/20 15:00 34 Mechanical Ventilator 65 12/21/19 14:15 103 28 118/60 (79) 100 12/21/19 14:00 29 Mechanical Ventilator 65 12/21/19 14:00 118/57 12/21/19 14:00 29 65 12/21/19 14:00 101 29 118/57 (77) 100 12/21/19 13:45 104 29 121/60 (80) 100 12/21/19 13:30 104 29 122/66 (84) 100 12/21/19 13:30 65 12/21/19 13:15 102 30 132/61 (84) 100 12/21/19 13:14 28 Mechanical Ventilator 80 12/21/19 13:00 100 29 144/70 (94) 100 12/21/19 13:00 30 Mechanical Ventilator 65 12/21/19 13:00 144/70 12/21/19 13:00 30 Mechanical Ventilator 65 12/21/19 12:45 102 30 151/74 (99) 100 12/21/19 12:45 151/74 12/21/19 12:30 98.7 105 29 159/75 (103) 100 12/21/19 12:08 97/56 12/21/19 12:00 Mechanical Ventilator 12/21/19 12:00 30 Mechanical Ventilator 80 12/21/19 12:00 97/56 12/21/19 12:00 30 80 12/21/19 12:00 114 12/21/19 12:00 114 30 97/56 (70) 100 12/21/19 12:00 80 Intake and Output 12/22/19 12/23/19 19:00 07:00 Intake Total 1016.25 ml 1225.25 ml Output Total 5 ml 10 ml Balance 1011.25 ml 1215.25 ml Free Water 100 ml 100 ml IV Total 446.25 ml 605.25 ml Tube Feeding 420 ml 420 ml Blood Product 100 ml Other 50 ml Output Urine Total 5 ml 10 ml Labs Test 12/21/19 04:00 12/22/19 04:00 12/22/19 16:00 12/23/19 04:00 White Blood Count 28.2 K/UL (4.8-10.8) 32.9 K/UL (4.8-10.8) Red Blood Count 3.06 M/UL (4.70-6.10) 3.03 M/UL (4.70-6.10) Hemoglobin 9.5 G/DL (14.2-18.0) 9.0 G/DL (14.2-18.0) Hematocrit 28.5 % (42.0-52.0) 28.2 % (42.0-52.0) Mean Corpuscular Volume 93 FL (80-99) 93 FL (80-99) Mean Corpuscular Hemoglobin 30.9 PG (27.0-31.0) 29.8 PG (27.0-31.0) Mean Corpuscular Hemoglobin Concent 33.2 G/DL (32.0-36.0) 32.0 G/DL (32.0-36.0) Red Cell Distribution Width 14.4 % (11.6-14.8) 14.7 % (11.6-14.8) Platelet Count 197 K/UL (150-450) 255 K/UL (150-450) Mean Platelet Volume 7.2 FL (6.5-10.1) 7.2 FL (6.5-10.1) Neutrophils (%) (Auto) % (45.0-75.0) % (45.0-75.0) Lymphocytes (%) (Auto) % (20.0-45.0) % (20.0-45.0) Monocytes (%) (Auto) % (1.0-10.0) % (1.0-10.0) Eosinophils (%) (Auto) % (0.0-3.0) % (0.0-3.0) Basophils (%) (Auto) % (0.0-2.0) % (0.0-2.0) Differential Total Cells Counted 100 100 Neutrophils % (Manual) 86 % (45-75) 89 % (45-75) Lymphocytes % (Manual) 7 % (20-45) 6 % (20-45) Monocytes % (Manual) 7 % (1-10) 5 % (1-10) Eosinophils % (Manual) 0 % (0-3) 0 % (0-3) Basophils % (Manual) 0 % (0-2) 0 % (0-2) Band Neutrophils 0 % (0-8) 0 % (0-8) Platelet Estimate Adequate Adequate Platelet Morphology Normal Normal Hypochromasia 2+ Anisocytosis 1+ 1+ Arterial Blood pH 7.238 (7.350-7.450) Arterial Blood Partial Pressure CO2 82.6 mmHg (35.0-45.0) Arterial Blood Partial Pressure O2 91.8 mmHg (75.0-100.0) Arterial Blood HCO3 34.3 mmol/L (22.0-26.0) Arterial Blood Oxygen Saturation 96.2 % (95-100) Arterial Blood Base Excess 5.2 (-2-2) Melecio Test Positive Sodium Level 135 MMOL/L (136-145) 138 MMOL/L (136-145) Potassium Level 4.2 MMOL/L (3.5-5.1) 3.8 MMOL/L (3.5-5.1) Chloride Level 96 MMOL/L (98-107) 97 MMOL/L (98-107) Carbon Dioxide Level 36 MMOL/L (21-32) 35 MMOL/L (21-32) Anion Gap 3 mmol/L (5-15) 7 mmol/L (5-15) Blood Urea Nitrogen 30 mg/dL (7-18) 31 mg/dL (7-18) Creatinine 2.4 MG/DL (0.55-1.30) 2.9 MG/DL (0.55-1.30) Estimat Glomerular Filtration Rate 27.9 mL/min (>60) 22.5 mL/min (>60) Glucose Level 110 MG/DL (74-106) 110 MG/DL (74-106) Calcium Level 7.8 MG/DL (8.5-10.1) 8.6 MG/DL (8.5-10.1) Random Vancomycin Level 7.8 ug/mL Polychromasia 1+ D-Dimer 15.39 mg/L FEU (0.00-0.49) 13.39 mg/L FEU (0.00-0.49) Phosphorus Level 6.4 MG/DL (2.5-4.9) Magnesium Level 2.4 MG/DL (1.8-2.4) Ferritin 769 NG/ML (8-388) Total Bilirubin 0.5 MG/DL (0.2-1.0) Aspartate Amino Transf (AST/SGOT) 62 U/L (15-37) Alanine Aminotransferase (ALT/SGPT) 53 U/L (12-78) Alkaline Phosphatase 325 U/L (46-116) Lactate Dehydrogenase 436 U/L (81-234) Total Creatine Kinase 372 U/L (26-308) Total Protein 7.2 G/DL (6.4-8.2) Albumin 2.5 G/DL (3.4-5.0) Globulin 4.7 g/dL Albumin/Globulin Ratio 0.5 (1.0-2.7) Prothrombin Time 9.8 SEC (9.30-11.50) Prothromb Time International Ratio 0.9 (0.9-1.1) Activated Partial Thromboplast Time 27 SEC (23-33) Fibrinogen 755 mg/dL (200-400) Urine Color Brown Urine Appearance Slightly cloudy Urine pH 5 (4.5-8.0) Urine Specific [place] 1.015 (1.005-1.035) Urine Protein 4+ (NEGATIVE) Urine Glucose (UA) 2+ (NEGATIVE) Urine Ketones 1+ (NEGATIVE) Urine Blood 5+ (NEGATIVE) Urine Nitrite Positive (NEGATIVE) Urine Bilirubin Negative (NEGATIVE) Urine Urobilinogen 1 MG/DL (0.0-1.0) Urine Leukocyte Esterase 2+ (NEGATIVE) Urine RBC 15-20 /HPF (0 - 0) Urine WBC 5-10 /HPF (0 - 0) Urine Squamous Epithelial Cells Occasional /LPF Urine Bacteria Moderate /HPF (NONE) Test 12/23/19 04:14 White Blood Count 30.9 K/UL (4.8-10.8) Red Blood Count 2.63 M/UL (4.70-6.10) Hemoglobin 7.8 G/DL (14.2-18.0) Hematocrit 24.8 % (42.0-52.0) Mean Corpuscular Volume 94 FL (80-99) Mean Corpuscular Hemoglobin 29.6 PG (27.0-31.0) Mean Corpuscular Hemoglobin Concent 31.4 G/DL (32.0-36.0) Red Cell Distribution Width 15.2 % (11.6-14.8) Platelet Count 249 K/UL (150-450) Mean Platelet Volume 6.2 FL (6.5-10.1) Neutrophils (%) (Auto) % (45.0-75.0) Lymphocytes (%) (Auto) % (20.0-45.0) Monocytes (%) (Auto) % (1.0-10.0) Eosinophils (%) (Auto) % (0.0-3.0) Basophils (%) (Auto) % (0.0-2.0) Differential Total Cells Counted 100 Neutrophils % (Manual) 84 % (45-75) Lymphocytes % (Manual) 7 % (20-45) Monocytes % (Manual) 5 % (1-10) Eosinophils % (Manual) 3 % (0-3) Basophils % (Manual) 1 % (0-2) Band Neutrophils 0 % (0-8) Platelet Estimate Adequate Platelet Morphology Normal Hypochromasia 3+ Anisocytosis 1+ Sodium Level 138 MMOL/L (136-145) Potassium Level 4.2 MMOL/L (3.5-5.1) Chloride Level 97 MMOL/L (98-107) Carbon Dioxide Level 33 MMOL/L (21-32) Anion Gap 8 mmol/L (5-15) Blood Urea Nitrogen 65 mg/dL (7-18) Creatinine 5.3 MG/DL (0.55-1.30) Estimat Glomerular Filtration Rate 11.2 mL/min (>60) Glucose Level 115 MG/DL (74-106) Calcium Level 8.8 MG/DL (8.5-10.1) Phosphorus Level 7.8 MG/DL (2.5-4.9) Magnesium Level 2.9 MG/DL (1.8-2.4) Total Bilirubin 0.5 MG/DL (0.2-1.0) Aspartate Amino Transf (AST/SGOT) 61 U/L (15-37) Alanine Aminotransferase (ALT/SGPT) 50 U/L (12-78) Alkaline Phosphatase 264 U/L (46-116) Total Protein 6.7 G/DL (6.4-8.2) Albumin 2.2 G/DL (3.4-5.0) Globulin 4.5 g/dL Albumin/Globulin Ratio 0.5 (1.0-2.7) Height (Feet): 5 Height (Inches): 6.00 Weight (Pounds): 159 Objective General: prone position on vent Heent: nc, at+ ng Respiratory: normal breath sounds, no retraction, vent++ Cardiovascular: no edema, tachycardia Gastrointestinal: normal inspection Neurologic unresponsive on vent Psychiatric: judgement/insight normal, memory normal, mood/affect normal, no suicidal/homicidal ideation Ext: with hd fem jia in place : + barnes and rectal tube Mj Zhu MD December 23, 2019 11:56
--- NOTE | 2019-12-23 13:31 | NUR ---
CASE MANAGEMENT: REVIEW SI: COVID-19 INFECTION . PNA . INTUBATED RIGHT FEMORAL TEMP HD CATH PLACEMENT T 100.1 HR 117 RR 35 BP 96/48 SAT 95% MECH VENT FIO2 70 WBC 30.9 H/H 7.8/24.8 BUN 65 CR 5.3 IS: FENTANYL IV Q24HR LEVOPHED IV Q24HR DIFLUCAN IV Q24HR MEROPENEM IV Q24HR TYLENOL 650MG Q6HR NEEDED IMODIUM NGT NEEDED NGT FEEDING RECTAL TUBE HEMODIALYSIS NEEDED ICU STATUS DCP: PATIENT IS FROM HOME
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
--- NOTE | 2019-12-23 13:45 | NUR ---
NURSE NOTES: Dr. Appiah made aware patient remains on Levophed at 10mcg/mil, fentanyl at 150mcg/min and versed at 5mcg/hr. patient remains in sinus tachycardia with heart rate at 105-115. no verbal orders given at this time.
--- NOTE | 2019-12-23 14:25 | Cardiac Electrophysiology PN ---
Assessment/Plan Assessment/Plan 1. Atrial fib with RVR 170 before intubation on 12/04/19. Converted to Sinus tach Troponin 0.77. No further atrial fib. In SR 2. Sinus Tachycardia due to COVID-19 pneumonia. On IV antibiotic per ID. Echo pending COVID. 3. Septic shock. On Levophed 10 Mcg, Midodrine 10 tid and iv Abx. 4. Respiratory failure, on the Vent by Dr. Cortes. 700% Fio2, PEEP 5 5. Acute renal failure. On HD per Dr. Sanchez via RFV [place] 6. Full code DW RN Poor prognosis Subjective Subjective Intubated in ICU on 70% Fio2 and PEEP 3 on Levo 10 mcg, Fentanyl 150 and Versed 5 drip.No other changes. Objective Last 24 Hour Vital Signs Date Time Temp Pulse Resp B/P (MAP) Pulse Ox O2 Delivery O2 Flow Rate FiO2 12/23/19 12:00 Mechanical Ventilator 12/23/19 12:00 70 12/23/19 10:39 113 35 60 12/23/19 09:00 114 32 104/52 (69) 95 12/23/19 08:30 117 31 104/49 (67) 95 12/23/19 08:00 Mechanical Ventilator 12/23/19 08:00 100.1 117 31 101/51 (68) 96 12/23/19 08:00 70 12/23/19 07:30 117 29 96/48 (64) 98 12/23/19 07:20 116 27 70 12/23/19 07:00 117 28 105/47 (66) 98 12/23/19 06:30 117 29 94/50 (65) 100 12/23/19 06:01 32 Mechanical Ventilator 80 12/23/19 06:00 32 Mechanical Ventilator 80 12/23/19 06:00 92/46 12/23/19 06:00 32 Mechanical Ventilator 80 12/23/19 06:00 115 32 92/46 (61) 95 12/23/19 05:36 29 Mechanical Ventilator 80 12/23/19 05:30 116 32 111/53 (72) 99 12/23/19 05:00 117 24 103/52 (69) 100 12/23/19 05:00 24 Mechanical Ventilator 80 12/23/19 05:00 103/52 12/23/19 05:00 24 Mechanical Ventilator 80 12/23/19 04:30 118 23 102/52 (69) 100 12/23/19 04:00 80 12/23/19 04:00 23 Mechanical Ventilator 80 12/23/19 04:00 104/52 12/23/19 04:00 23 Mechanical Ventilator 80 12/23/19 04:00 98.9 118 23 104/52 (69) 99 12/23/19 04:00 Mechanical Ventilator 12/23/19 04:00 121 12/23/19 03:30 119 22 100/48 (65) 98 12/23/19 03:01 105/55 12/23/19 03:00 121 23 105/47 (66) 97 12/23/19 03:00 119 29 80 12/23/19 03:00 23 Mechanical Ventilator 80 12/23/19 03:00 105/47 12/23/19 03:00 23 Mechanical Ventilator 100 12/23/19 02:30 120 20 103/51 (68) 100 12/23/19 02:00 80 12/23/19 02:00 121 20 104/48 (66) 100 12/23/19 02:00 20 Mechanical Ventilator 80 12/23/19 02:00 104/48 12/23/19 02:00 20 80 12/23/19 01:30 121 20 101/53 (69) 100 12/23/19 01:01 100.2 12/23/19 01:00 122 20 103/51 (68) 100 12/23/19 01:00 20 Mechanical Ventilator 100 12/23/19 01:00 103/51 12/23/19 01:00 20 Mechanical Ventilator 100 12/23/19 00:30 122 21 110/53 (72) 100 12/23/19 00:00 100.3 121 20 110/54 (72) 100 12/23/19 00:00 20 Mechanical Ventilator 100 12/23/19 00:00 110/54 12/23/19 00:00 20 Mechanical Ventilator 100 12/23/19 00:00 121 12/23/19 00:00 100 12/23/19 00:00 Mechanical Ventilator 12/22/19 23:30 121 20 112/52 (72) 100 12/22/19 23:30 110 25 100 12/22/19 23:00 120 21 115/54 (74) 100 12/22/19 23:00 24 Mechanical Ventilator 100 12/22/19 23:00 115/54 12/22/19 23:00 24 Mechanical Ventilator 100 12/22/19 22:30 119 22 113/54 (73) 100 12/22/19 22:00 119 21 115/58 (77) 100 12/22/19 22:00 22 Mechanical Ventilator 100 12/22/19 22:00 115/58 12/22/19 22:00 22 Mechanical Ventilator 100 12/22/19 21:30 119 22 111/55 (73) 100 12/22/19 21:00 100.4 120 22 107/51 (69) 100 12/22/19 21:00 22 Mechanical Ventilator 100 12/22/19 21:00 107/51 12/22/19 21:00 27 Mechanical Ventilator 100 12/22/19 20:30 119 21 110/57 (74) 100 12/22/19 20:00 121 22 113/54 (73) 100 12/22/19 20:00 19 Mechanical Ventilator 100 12/22/19 20:00 123/53 12/22/19 20:00 19 Mechanical Ventilator 100 12/22/19 20:00 122 12/22/19 20:00 Mechanical Ventilator 12/22/19 20:00 100 12/22/19 19:30 121 23 123/53 (76) 100 12/22/19 19:15 121 26 100 12/22/19 19:00 21 Mechanical Ventilator 100 12/22/19 19:00 121/56 12/22/19 19:00 21 100 12/22/19 19:00 119 23 121/56 (77) 100 12/22/19 18:30 117 23 118/59 (78) 100 12/22/19 18:00 24 Mechanical Ventilator 100 12/22/19 18:00 121/58 12/22/19 18:00 24 Mechanical Ventilator 100 12/22/19 18:00 117 24 121/58 (79) 100 12/22/19 17:30 119 25 112/55 (74) 100 12/22/19 17:00 120 25 112/54 (73) 100 12/22/19 17:00 23 Mechanical Ventilator 100 12/22/19 17:00 112/55 12/22/19 17:00 23 Mechanical Ventilator 100 12/22/19 16:30 120 25 117/54 (75) 100 12/22/19 16:00 100 12/22/19 16:00 Mechanical Ventilator 12/22/19 16:00 24 Mechanical Ventilator 100 12/22/19 16:00 114/58 12/22/19 16:00 24 Mechanical Ventilator 100 12/22/19 16:00 118 25 106/57 (73) 100 12/22/19 16:00 119 12/22/19 15:30 98.9 120 25 114/58 (76) 100 12/22/19 15:00 119 24 65 12/22/19 15:00 118 25 114/58 (76) 100 12/22/19 15:00 25 Mechanical Ventilator 100 12/22/19 15:00 114/58 12/22/19 15:00 25 Mechanical Ventilator 100 12/22/19 14:30 117 25 121/59 (79) 100 Intake and Output 12/22/19 12/23/19 19:00 07:00 Intake Total 1016.25 ml 1225.25 ml Output Total 5 ml 10 ml Balance 1011.25 ml 1215.25 ml Free Water 100 ml 100 ml IV Total 446.25 ml 605.25 ml Tube Feeding 420 ml 420 ml Blood Product 100 ml Other 50 ml Output Urine Total 5 ml 10 ml Laboratory Tests Test 12/22/19 16:00 12/23/19 04:00 12/23/19 04:14 Prothrombin Time 9.8 SEC (9.30-11.50) Prothromb Time International Ratio 0.9 (0.9-1.1) Activated Partial Thromboplast Time 27 SEC (23-33) Fibrinogen 755 mg/dL (200-400) H Fibrin Degradation Products, Quant Pending D-Dimer 13.39 mg/L FEU (0.00-0.49) H Urine Color Brown Urine Appearance Slightly cloudy Urine pH 5 (4.5-8.0) Urine Specific [place] 1.015 (1.005-1.035) Urine Protein 4+ (NEGATIVE) H Urine Glucose (UA) 2+ (NEGATIVE) H Urine Ketones 1+ (NEGATIVE) H Urine Blood 5+ (NEGATIVE) H Urine Nitrite Positive (NEGATIVE) H Urine Bilirubin Negative (NEGATIVE) Urine Urobilinogen 1 MG/DL (0.0-1.0) H Urine Leukocyte Esterase 2+ (NEGATIVE) H Urine RBC 15-20 /HPF (0 - 0) H Urine WBC 5-10 /HPF (0 - 0) H Urine Squamous Epithelial Cells Occasional /LPF Urine Bacteria Moderate /HPF (NONE) H White Blood Count 30.9 K/UL (4.8-10.8) *H Red Blood Count 2.63 M/UL (4.70-6.10) L Hemoglobin 7.8 G/DL (14.2-18.0) L Hematocrit 24.8 % (42.0-52.0) L Mean Corpuscular Volume 94 FL (80-99) Mean Corpuscular Hemoglobin 29.6 PG (27.0-31.0) Mean Corpuscular Hemoglobin Concent 31.4 G/DL (32.0-36.0) L Red Cell Distribution Width 15.2 % (11.6-14.8) H Platelet Count 249 K/UL (150-450) Mean Platelet Volume 6.2 FL (6.5-10.1) L Neutrophils (%) (Auto) % (45.0-75.0) Lymphocytes (%) (Auto) % (20.0-45.0) Monocytes (%) (Auto) % (1.0-10.0) Eosinophils (%) (Auto) % (0.0-3.0) Basophils (%) (Auto) % (0.0-2.0) Differential Total Cells Counted 100 Neutrophils % (Manual) 84 % (45-75) H Lymphocytes % (Manual) 7 % (20-45) L Monocytes % (Manual) 5 % (1-10) Eosinophils % (Manual) 3 % (0-3) Basophils % (Manual) 1 % (0-2) Band Neutrophils 0 % (0-8) Platelet Estimate Adequate Platelet Morphology Normal Hypochromasia 3+ Anisocytosis 1+ Sodium Level 138 MMOL/L (136-145) Potassium Level 4.2 MMOL/L (3.5-5.1) Chloride Level 97 MMOL/L (98-107) L Carbon Dioxide Level 33 MMOL/L (21-32) H Anion Gap 8 mmol/L (5-15) Blood Urea Nitrogen 65 mg/dL (7-18) H Creatinine 5.3 MG/DL (0.55-1.30) #H Estimat Glomerular Filtration Rate 11.2 mL/min (>60) Glucose Level 115 MG/DL (74-106) H Calcium Level 8.8 MG/DL (8.5-10.1) Phosphorus Level 7.8 MG/DL (2.5-4.9) H Magnesium Level 2.9 MG/DL (1.8-2.4) H Total Bilirubin 0.5 MG/DL (0.2-1.0) Aspartate Amino Transf (AST/SGOT) 61 U/L (15-37) H Alanine Aminotransferase (ALT/SGPT) 50 U/L (12-78) Alkaline Phosphatase 264 U/L (46-116) H Total Protein 6.7 G/DL (6.4-8.2) Albumin 2.2 G/DL (3.4-5.0) L Globulin 4.5 g/dL Albumin/Globulin Ratio 0.5 (1.0-2.7) L Objective HEAD AND NECK: Orally intubated No JVD LUNGS: Decreased breath sounds. Coarse rhonchi. CARDIOVASCULAR: Tachycardic S1 and S2 with no gallop. ABDOMEN: Soft. EXTREMITIES: 1 plus pitting edema. RFV [place] in place Raul Appiah MD December 23, 2019 14:25
--- NOTE | 2019-12-23 14:30 | NUR ---
NURSE NOTES: Hemodialysis started with patient Levophed at 10mcg/min, fentanyl is at 150mcg/min at rate of 15ml/hr. Patient remains sedated at rass scale of -2.
--- NOTE | 2019-12-23 16:29 | Pulmonology Progress Note ---
Subjective ROS Limited/Unobtainable: No Interval Events: Intubated ;proning on hold due to facial decubitus Constitutional: Reports: fever, other - on vent and pressors HEENT: Repors: no symptoms Respiratory: Reports: no symptoms Cardiovascular: Reports: no symptoms Gastrointestinal/Abdominal: Reports: diarrhea, other - + rectal tube ; Denies: nausea, vomiting Genitourinary: Reports: no symptoms Psychiatric: Reports: other - NA Skin: Denies: rash Musculoskeletal: Reports: other - NA Allergies: Coded Allergies: No Known Allergies (Unverified , 11/29/19) All Systems: reviewed and negative except above Subjective On daily HD Objective Last 24 Hour Vital Signs Date Time Temp Pulse Resp B/P (MAP) Pulse Ox O2 Delivery O2 Flow Rate FiO2 12/23/19 16:00 111 12/23/19 15:30 111 35 121/57 (78) 91 12/23/19 15:00 107 32 102/46 (64) 90 12/23/19 14:56 100 33 70 12/23/19 14:30 102 37 113/57 (75) 96 12/23/19 14:00 105 37 115/58 (77) 96 12/23/19 13:30 105 36 116/57 (76) 96 12/23/19 13:00 106 37 104/57 (73) 96 12/23/19 12:30 108 38 112/56 (74) 95 12/23/19 12:00 99.9 108 38 115/56 (75) 95 12/23/19 12:00 108 12/23/19 12:00 Mechanical Ventilator 12/23/19 12:00 70 12/23/19 11:30 109 39 112/57 (75) 95 12/23/19 11:00 113 37 113/53 (73) 90 12/23/19 10:39 113 35 60 12/23/19 10:30 112 33 100/52 (68) 98 12/23/19 10:00 113 33 106/52 (70) 97 12/23/19 09:30 114 33 95/53 (67) 95 12/23/19 09:00 114 32 104/52 (69) 95 12/23/19 08:30 117 31 104/49 (67) 95 12/23/19 08:00 Mechanical Ventilator 12/23/19 08:00 100.1 117 31 101/51 (68) 96 12/23/19 08:00 70 12/23/19 08:00 117 12/23/19 07:30 117 29 96/48 (64) 98 12/23/19 07:20 116 27 70 12/23/19 07:00 117 28 105/47 (66) 98 12/23/19 06:30 117 29 94/50 (65) 100 12/23/19 06:01 32 Mechanical Ventilator 80 12/23/19 06:00 32 Mechanical Ventilator 80 12/23/19 06:00 92/46 12/23/19 06:00 32 Mechanical Ventilator 80 12/23/19 06:00 115 32 92/46 (61) 95 12/23/19 05:36 29 Mechanical Ventilator 80 12/23/19 05:30 116 32 111/53 (72) 99 12/23/19 05:00 117 24 103/52 (69) 100 12/23/19 05:00 24 Mechanical Ventilator 80 12/23/19 05:00 103/52 12/23/19 05:00 24 Mechanical Ventilator 80 12/23/19 04:30 118 23 102/52 (69) 100 12/23/19 04:00 80 12/23/19 04:00 23 Mechanical Ventilator 80 12/23/19 04:00 104/52 12/23/19 04:00 23 Mechanical Ventilator 80 12/23/19 04:00 98.9 118 23 104/52 (69) 99 12/23/19 04:00 Mechanical Ventilator 12/23/19 04:00 121 12/23/19 03:30 119 22 100/48 (65) 98 12/23/19 03:01 105/55 12/23/19 03:00 121 23 105/47 (66) 97 12/23/19 03:00 119 29 80 12/23/19 03:00 23 Mechanical Ventilator 80 12/23/19 03:00 105/47 12/23/19 03:00 23 Mechanical Ventilator 100 12/23/19 02:30 120 20 103/51 (68) 100 12/23/19 02:00 80 12/23/19 02:00 121 20 104/48 (66) 100 12/23/19 02:00 20 Mechanical Ventilator 80 12/23/19 02:00 104/48 5/11/20 02:00 20 80 12/23/19 01:30 121 20 101/53 (69) 100 12/23/19 01:01 100.2 12/23/19 01:00 122 20 103/51 (68) 100 12/23/19 01:00 20 Mechanical Ventilator 100 12/23/19 01:00 103/51 12/23/19 01:00 20 Mechanical Ventilator 100 12/23/19 00:30 122 21 110/53 (72) 100 12/23/19 00:00 100.3 121 20 110/54 (72) 100 12/23/19 00:00 20 Mechanical Ventilator 100 12/23/19 00:00 110/54 12/23/19 00:00 20 Mechanical Ventilator 100 12/23/19 00:00 121 12/23/19 00:00 100 12/23/19 00:00 Mechanical Ventilator 12/22/19 23:30 121 20 112/52 (72) 100 12/22/19 23:30 110 25 100 12/22/19 23:00 120 21 115/54 (74) 100 12/22/19 23:00 24 Mechanical Ventilator 100 12/22/19 23:00 115/54 12/22/19 23:00 24 Mechanical Ventilator 100 12/22/19 22:30 119 22 113/54 (73) 100 12/22/19 22:00 119 21 115/58 (77) 100 12/22/19 22:00 22 Mechanical Ventilator 100 12/22/19 22:00 115/58 12/22/19 22:00 22 Mechanical Ventilator 100 12/22/19 21:30 119 22 111/55 (73) 100 12/22/19 21:00 100.4 120 22 107/51 (69) 100 12/22/19 21:00 22 Mechanical Ventilator 100 12/22/19 21:00 107/51 12/22/19 21:00 27 Mechanical Ventilator 100 12/22/19 20:30 119 21 110/57 (74) 100 12/22/19 20:00 121 22 113/54 (73) 100 12/22/19 20:00 19 Mechanical Ventilator 100 12/22/19 20:00 123/53 12/22/19 20:00 19 Mechanical Ventilator 100 12/22/19 20:00 122 12/22/19 20:00 Mechanical Ventilator 12/22/19 20:00 100 12/22/19 19:30 121 23 123/53 (76) 100 12/22/19 19:15 121 26 100 12/22/19 19:00 21 Mechanical Ventilator 100 12/22/19 19:00 121/56 12/22/19 19:00 21 100 12/22/19 19:00 119 23 121/56 (77) 100 12/22/19 18:30 117 23 118/59 (78) 100 12/22/19 18:00 24 Mechanical Ventilator 100 12/22/19 18:00 121/58 12/22/19 18:00 24 Mechanical Ventilator 100 12/22/19 18:00 117 24 121/58 (79) 100 12/22/19 17:30 119 25 112/55 (74) 100 12/22/19 17:00 120 25 112/54 (73) 100 12/22/19 17:00 23 Mechanical Ventilator 100 12/22/19 17:00 112/55 12/22/19 17:00 23 Mechanical Ventilator 100 12/22/19 16:30 120 25 117/54 (75) 100 Intake and Output 12/22/19 12/23/19 19:00 07:00 Intake Total 1016.25 ml 1225.25 ml Output Total 5 ml 10 ml Balance 1011.25 ml 1215.25 ml Free Water 100 ml 100 ml IV Total 446.25 ml 605.25 ml Tube Feeding 420 ml 420 ml Blood Product 100 ml Other 50 ml Output Urine Total 5 ml 10 ml General Appearance: other - on vent, on pressors HEENT: normocephalic, atraumatic, no JVD Respiratory/Chest: chest wall non-tender, decreased breath sounds Cardiovascular: normal peripheral pulses, normal rate Abdomen: normal bowel sounds, soft, non tender, no organomegaly, non distended , other - + rectal tube Genitourinary: other - + barnes - urine slt cloudy Extremities: no cyanosis Skin: no rash Neurologic/Psychiatric: motor weakness, other - lethargic, weak Lymphatic: no neck adenopathy Musculoskeletal: no effusion Laboratory Tests 12/23/19 04:00: Urine Color Brown, Urine Appearance Slightly cloudy, Urine pH 5, Urine Specific [place] 1.015, Urine Protein 4+H, Urine Glucose (UA) 2+H, Urine Ketones 1+H, Urine Blood 5+H, Urine Nitrite PositiveH, Urine Bilirubin Negative, Urine Urobilinogen 1H, Urine Leukocyte Esterase 2+H, Urine RBC 15-20H, Urine WBC 5-10H , Urine Squamous Epithelial Cells Occasional, Urine Bacteria ModerateH 12/23/19 04:14: White Blood Count 30.9*H, Red Blood Count 2.63L, Hemoglobin 7.8L, Hematocrit 24.8L, Mean Corpuscular Volume 94, Mean Corpuscular Hemoglobin 29.6, Mean Corpuscular Hemoglobin Concent 31.4L, Red Cell Distribution Width 15.2H, Platelet Count 249, Mean Platelet Volume 6.2L, Neutrophils (%) (Auto) , Lymphocytes (%) (Auto) , Monocytes (%) (Auto) , Eosinophils (%) (Auto) , Basophils (%) (Auto) , Differential Total Cells Counted 100, Neutrophils % ( Manual) 84H, Lymphocytes % (Manual) 7L, Monocytes % (Manual) 5, Eosinophils % ( Manual) 3, Basophils % (Manual) 1, Band Neutrophils 0, Platelet Estimate Adequate, Platelet Morphology Normal, Hypochromasia 3+, Anisocytosis 1+, Sodium Level 138, Potassium Level 4.2, Chloride Level 97L, Carbon Dioxide Level 33H, Anion Gap 8, Blood Urea Nitrogen 65H, Creatinine 5.3#H, Estimat Glomerular Filtration Rate 11.2, Glucose Level 115H, Calcium Level 8.8, Phosphorus Level 7.8H, Magnesium Level 2.9H, Total Bilirubin 0.5, Aspartate Amino Transf (AST/ SGOT) 61H, Alanine Aminotransferase (ALT/SGPT) 50, Alkaline Phosphatase 264H, Total Protein 6.7, Albumin 2.2L, Globulin 4.5, Albumin/Globulin Ratio 0.5L Current Medications Medications (Trade) Dose Ordered Sig/Vicki Route PRN Reason Start Time Stop Time Status Last Admin Dose Admin Acetaminophen (Tylenol) 650 mg Q4H PRN NG Temp >100.5 12/06/19 14:15 01/05/20 14:14 12/23/19 00:31 Acetaminophen (Tylenol) 650 mg Q4H PRN RECTAL Mild Pain (Pain Scale 1-3) 12/04/19 11:45 01/03/20 11:44 12/06/19 19:17 Chlorhexidine Gluconate (Arely-Hex 2%) 1 applic DAILY@2000 TOPIC 12/05/19 20:00 03/04/20 19:59 12/22/19 20:22 Dextrose (Dextrose 50%) 25 ml Q30M PRN IV Hypoglycemia 11/29/19 14:15 02/27/20 14:14 Dextrose (Dextrose 50%) 50 ml Q30M PRN IV Hypoglycemia 11/29/19 14:15 02/27/20 14:14 Fentanyl Citrate 2500 mcg/Sodium Chloride 250 ml @ 0 mls/hr Q24H IV 12/20/19 00:00 12/27/19 00:00 12/23/19 05:36 Fluconazole/ Sodium Chloride 100 ml @ 100 mls/hr Q24H IV 12/22/19 22:00 12/29/19 21:59 12/22/19 20:23 Folic Acid (Folate) 1 mg DAILY NG 12/18/19 09:00 01/17/20 08:59 12/23/19 08:35 Hydralazine HCl (Apresoline) 10 mg Q4H PRN IV For High Blood Pressure 11/29/19 15:15 02/27/20 15:14 Loperamide HCl (Imodium) 2 mg Q6H PRN NG Diarrhea 12/12/19 12:45 01/11/20 12:44 Meropenem 500 mg/ Sodium Chloride 50 ml @ 100 mls/hr Q24H IVPB 12/20/19 21:30 12/25/19 21:29 12/22/19 20:22 Midazolam HCl 100 ml @ 0 mls/hr Q24H PRN IV Restlessness 12/16/19 10:45 03/15/20 10:44 12/23/19 06:01 Midodrine (Pro-Amatine) 10 mg THREE TIMES A DAY ORAL 12/12/19 13:00 03/11/20 12:59 12/23/19 14:15 Norepinephrine Bitartrate 8 mg/ Dextrose 250 ml @ 0 mls/hr Q24H IV 12/18/19 09:00 01/17/20 08:59 12/23/19 03:01 Ondansetron HCl (Zofran) 4 mg Q6H PRN IVP Nausea & Vomiting 11/29/19 14:15 12/29/19 14:14 Pantoprazole (Protonix) 40 mg DAILY IVP 11/30/19 12:15 12/30/19 12:14 12/23/19 08:35 Sevelamer Carbonate (Renvela) 800 mg THREE TIMES A DAY NG 12/22/19 13:00 03/21/20 12:59 12/23/19 14:16 Vancomycin HCl (Firvanq) 125 mg FOUR TIMES A DAY ORAL 12/22/19 21:00 12/29/19 20:59 12/23/19 14:16 Vancomycin HCl (Vanco rx to dose) 1 ea DAILY PRN MISC Per rx protocol 12/08/19 19:30 01/07/20 19:29 Vitamin B Complex/ Vit C/Folic Acid (Nephrovite) 1 tab DAILY NG 12/16/19 09:00 01/15/20 08:59 12/23/19 08:35 Assessment/Plan Assessment/Plan IMPRESSION: 1. Bilateral pneumonia. 2. Positive COVID-19. 3. Respiratory failure. DISCUSSION: Intubated On AC 20; FiO2 80; PEEP 3; SaO2 99% Mediastinal PTX; stable; continue low PEEP ventilation Hold proning On Fentanyl due to high triglycerides Saturations are better Grave prognosis I will follow carefully. On HD now S/p Actemra Blood CS ? contaminant Needs ongoing HD; more ultrafiltration Urine CS negative Continue PEEP 3 Continue vent Tray Tolentino Omar Syed MD December 23, 2019 16:29
--- NOTE | 2019-12-23 18:20 | NUR ---
NURSE NOTES: Hemodialysis completed with 2L of fluid removed, Levophed increased to 12mcg/min with fentanyl at 150mcg/min and versed at 5mg/hr.
--- NOTE | 2019-12-23 19:28 | NUR ---
HAND-OFF: Report given to DARYA Santiago.
--- NOTE | 2019-12-23 19:30 | NUR ---
NURSE NOTES: Received pt , orally intubated on ac mode, sedated with Fentanyl drip at 150mcg/min, versed at mg/hr. Bp , been supported with levophed drip at 12mcg/min. All IVF been infusing to RT femoral Bismark cath pigtail, site with drsg dry and intact. Pt was just dialyzed today with 2 liters out. Tolerated fdg Nepro at 35ml/hr, no residuals. HOB kept elevated. On aspiration precaution. Rectal tube to gravity with moderate amt of brownish stool. , pt currently ST 100s Bp 119/64. Will continue to monitor.
[2019-12-23] MEDS: Dyna-Hex 2% Top Sol 2oz TOPIC SCH (19:56)
--- NOTE | 2019-12-23 21:30 | NUR ---
NURSE NOTES: Suctioned tn tk whitish with blood tinged secretions moderate in amt. 02 sat >95% , watch for any resp. distress.
--- NOTE | 2019-12-23 23:30 | NUR ---
NURSE NOTES: Turned q 2hrs prn with good skin care done. Rectal tube slightly leaking. Cleaned up pt.
[2019-12-24] VITALS (64 sets, daily range): BP systolic 85–140; BP diastolic 45–80
--- NOTE | 2019-12-24 02:00 | NUR ---
NURSE NOTES: Tolerated fdg. with acceptable residual.
--- NOTE | 2019-12-24 04:00 | NUR ---
NURSE NOTES: complete bath with bed changed was done.
[2019-12-24 07:09] LABS: ALANINE AMINOTRANSFERASE 44 U/L (12-78); ALBUMIN 2.2 G/DL (3.4-5.0); ALBUMIN/GLOBULIN RATIO 0.5 (1.0-2.7); ALKALINE PHOSPHATASE 226 U/L (46-116); ANION GAP 6 mmol/L (5-15); ASPARTATE AMINO TRANSFERASE 50 U/L (15-37); BILIRUBIN,TOTAL 0.5 MG/DL (0.2-1.0); BLOOD UREA NITROGEN 46 mg/dL (7-18); CALCIUM 8.5 MG/DL (8.5-10.1); CARBON DIOXIDE 34 MMOL/L (21-32); CHLORIDE 95 MMOL/L (98-107); CREATININE 3.7 MG/DL (0.55-1.30); POTASSIUM 3.6 MMOL/L (3.5-5.1); SODIUM 135 MMOL/L (136-145)
--- NOTE | 2019-12-24 07:19 | NUR ---
NURSE NOTES: No resp. distress noted.
--- NOTE | 2019-12-24 07:19 | NUR ---
HAND-OFF: Report given to Monserrat LACKEY.
[2019-12-24 07:20] LABS: HEMATOCRIT 24.3 % (42.0-52.0); MEAN CORPUSCULAR VOLUME 93 FL (80-99); PLATELET COUNT 275 K/UL (150-450); RED BLOOD COUNT 2.63 M/UL (4.70-6.10); RED CELL DISTRIBUTION WIDTH 15.4 % (11.6-14.8)
--- NOTE | 2019-12-24 07:20 | NUR ---
NURSE NOTES: Received patient from DARYA Shaw. Patient sedated at this time with RASS score -2 on fentanyl 150mcg/hr and Versed 5mL/hr. Patient showing no sign of acute distress. Patient orally intubated with size 8 ET tube with 24cm at the lip line. Ventilator setting AC 20, tidal volume 500, FiO2 70%, and PEEP 3. Patient tolerating with RR 30 and SpO2 100%. Will continue to monitor and titrate FiO2 as tolerated. Patient has nasal gastric tube in left nares that is patent, secure, verified with auscultation/aspiration, and running Nepro at 35mL/hr at this time with no residual noted. Patient has rectal tube that is patent and draining dark green stool at this time. Patient has barnes for urine retention that is patent, asymptomatic, and draining small amount of dark marge urine. Patient has right hand 20 gauge peripheral IV that is patent, asymptomatic, and saline locked. Patient has right femoral Bismark catheter with pigtail that is patent, asymptomatic, and running versed, fentanyl, and levophed at 12mcg/min with blood pressure 119/65. Will titrate per protocol as tolerated. Patient bed in low position with bed alarm on and call light in reach at this time. Will continue to monitor. Oral care and repositioning done at this time. Addendum: 12/24/19 at 1630 by Monserrat Murphy RN RASS -4
--- NOTE | 2019-12-24 07:25 | General Progress Note ---
Assessment/Plan Problem List: (1) Elevated LFTs ICD Codes: R79.89 - Other specified abnormal findings of blood chemistry SNOMED: 088308790, 543549480 (2) HTN (hypertension) ICD Codes: I10 - Essential (primary) hypertension SNOMED: 76355940 (3) Suspected COVID-19 virus infection ICD Codes: R68.89 - Other general symptoms and signs SNOMED: 613298630 (4) Pneumonia ICD Codes: J18.9 - Pneumonia, unspecified organism SNOMED: 480550925 (5) Respiratory distress ICD Codes: R06.03 - Acute respiratory distress SNOMED: 273499383 (6) Pneumomediastinum ICD Codes: J98.2 - Interstitial emphysema SNOMED: 81436903 (7) COVID-19 ICD Codes: U07.1 - COVID-19 SNOMED: 869255861 (8) Hypotension ICD Codes: I95.9 - Hypotension, unspecified SNOMED: 67686853 Status: unchanged Assessment/Plan: NGTF rectal tube in place elevated LFTS most likely due to shock liver>>> improving repeat labs in am hepatitis panel>>>Neg fu nephrology recent labs and notes reviewed D/W the nurse Subjective ROS Limited/Unobtainable: No Allergies: Coded Allergies: No Known Allergies (Unverified , 11/29/19) Objective Last 24 Hour Vital Signs Date Time Temp Pulse Resp B/P (MAP) Pulse Ox O2 Delivery O2 Flow Rate FiO2 12/24/19 07:00 91 24 129/63 (85) 100 12/24/19 06:58 89 25 70 12/24/19 06:30 89 24 122/68 (86) 100 12/24/19 06:00 94 30 120/68 (85) 100 12/24/19 06:00 22 Mechanical Ventilator 80 12/24/19 06:00 122/66 12/24/19 06:00 22 80 12/24/19 05:30 96 28 125/61 (82) 100 12/24/19 05:00 95 28 122/66 (84) 100 12/24/19 05:00 22 Mechanical Ventilator 12/24/19 05:00 115/60 12/24/19 05:00 23 Mechanical Ventilator 80 12/24/19 04:30 95 30 114/66 (82) 100 12/24/19 04:00 90 12/24/19 04:00 Mechanical Ventilator 12/24/19 04:00 22 Mechanical Ventilator 80 12/24/19 04:00 110/63 12/24/19 04:00 24 Mechanical Ventilator 80 12/24/19 04:00 60 12/24/19 04:00 99.0 97 32 109/59 (76) 94 12/24/19 03:33 99 28 70 12/24/19 03:30 99 20 122/62 (82) 98 12/24/19 03:20 130/70 12/24/19 03:00 23 Mechanical Ventilator 80 12/24/19 03:00 23 Mechanical Ventilator 80 12/24/19 03:00 101 24 85/48 (60) 96 12/24/19 02:30 98 22 109/61 (77) 98 12/24/19 02:00 24 Mechanical Ventilator 80 12/24/19 02:00 101/60 12/24/19 02:00 22 Mechanical Ventilator 80 12/24/19 02:00 98 23 107/56 (73) 98 12/24/19 01:45 21 Mechanical Ventilator 60 12/24/19 01:30 97 27 102/57 (72) 97 12/24/19 01:00 102 31 105/58 (74) 92 12/24/19 01:00 23 Mechanical Ventilator 80 12/24/19 01:00 104/58 12/24/19 01:00 22 Mechanical Ventilator 80 12/24/19 00:30 101 35 112/58 (76) 93 12/24/19 00:15 96 32 95/45 (62) 97 12/24/19 00:00 95 12/24/19 00:00 Mechanical Ventilator 12/24/19 00:00 60 12/24/19 00:00 98.8 96 31 114/60 (78) 100 12/24/19 00:00 23 Mechanical Ventilator 80 12/24/19 00:00 95/45 12/24/19 00:00 23 Mechanical Ventilator 80 12/23/19 23:53 102 33 60 12/23/19 23:30 96 32 105/61 (76) 100 12/23/19 23:00 23 Mechanical Ventilator 80 12/23/19 23:00 109/66 12/23/19 23:00 22 Mechanical Ventilator 80 12/23/19 23:00 93 27 108/60 (76) 100 12/23/19 22:30 97 26 79/45 (56) 100 12/23/19 22:00 98 28 137/71 (93) 100 12/23/19 22:00 22 Mechanical Ventilator 80 12/23/19 22:00 107/59 12/23/19 22:00 24 Mechanical Ventilator 80 12/23/19 21:33 21 Mechanical Ventilator 70 12/23/19 21:30 95 27 105/61 (76) 100 12/23/19 21:00 99 29 110/57 (74) 100 12/23/19 21:00 25 80 12/23/19 21:00 117/65 12/23/19 21:00 24 80 12/23/19 20:45 99 23 111/62 (78) 100 12/23/19 20:30 100 22 108/67 (81) 100 12/23/19 20:15 101 21 117/65 (82) 100 12/23/19 20:00 70 12/23/19 20:00 23 Mechanical Ventilator 80 12/23/19 20:00 117/65 12/23/19 20:00 22 Mechanical Ventilator 80 12/23/19 20:00 99 12/23/19 20:00 99.0 101 22 119/64 (82) 100 12/23/19 20:00 Mechanical Ventilator 12/23/19 19:49 102 26 70 12/23/19 19:30 104 20 124/67 (86) 100 12/23/19 19:00 105 20 122/68 (86) 100 12/23/19 18:30 108 20 131/67 (88) 99 12/23/19 18:00 108 22 105/65 (78) 98 12/23/19 17:30 110 23 116/66 (83) 98 12/23/19 17:00 115 24 110/54 (72) 96 12/23/19 16:40 74/41 12/23/19 16:30 114 34 74/41 (52) 90 12/23/19 16:00 Mechanical Ventilator 12/23/19 16:00 70 12/23/19 16:00 111 34 111/46 (67) 90 12/23/19 16:00 111 12/23/19 15:30 111 35 121/57 (78) 91 12/23/19 15:00 107 32 102/46 (64) 90 12/23/19 14:56 100 33 70 12/23/19 14:30 102 37 113/57 (75) 96 12/23/19 14:00 105 37 115/58 (77) 96 12/23/19 13:30 105 36 116/57 (76) 96 12/23/19 13:00 106 37 104/57 (73) 96 12/23/19 12:30 108 38 112/56 (74) 95 12/23/19 12:00 99.9 108 38 115/56 (75) 95 12/23/19 12:00 108 12/23/19 12:00 Mechanical Ventilator 12/23/19 12:00 70 12/23/19 11:30 109 39 112/57 (75) 95 12/23/19 11:00 113 37 113/53 (73) 90 12/23/19 10:39 113 35 60 12/23/19 10:30 112 33 100/52 (68) 98 12/23/19 10:00 113 33 106/52 (70) 97 12/23/19 09:30 114 33 95/53 (67) 95 12/23/19 09:00 114 32 104/52 (69) 95 12/23/19 08:30 117 31 104/49 (67) 95 12/23/19 08:00 Mechanical Ventilator 12/23/19 08:00 100.1 117 31 101/51 (68) 96 12/23/19 08:00 70 12/23/19 08:00 117 12/23/19 07:30 117 29 96/48 (64) 98 Intake and Output 12/23/19 12/24/19 19:00 07:00 Intake Total 1070.00 ml 887.5 ml Output Total 2000 ml 10 ml Balance -930.00 ml 877.5 ml Free Water 150 ml 30 ml IV Total 460.00 ml 472.5 ml Tube Feeding 420 ml 385 ml Other 40 ml Output Urine Total 0 ml 10 ml Hemodialysis UF 2000 ml Laboratory Tests 12/24/19 05:07: White Blood Count [Pending], Red Blood Count [Pending], Hemoglobin [Pending], Hematocrit [Pending], Mean Corpuscular Volume [Pending], Mean Corpuscular Hemoglobin [Pending], Mean Corpuscular Hemoglobin Concent [Pending], Red Cell Distribution Width [Pending], Platelet Count [Pending], Mean Platelet Volume [ Pending], Neutrophils (%) (Auto) [Pending], Lymphocytes (%) (Auto) [Pending], Monocytes (%) (Auto) [Pending], Eosinophils (%) (Auto) [Pending], Basophils (%) (Auto) [Pending], Sodium Level 135L, Potassium Level 3.6, Chloride Level 95L, Carbon Dioxide Level 34H, Anion Gap 6, Blood Urea Nitrogen 46H, Creatinine 3.7H , Estimat Glomerular Filtration Rate 17.0, Glucose Level 122H, Calcium Level 8.5 , Total Bilirubin 0.5, Aspartate Amino Transf (AST/SGOT) 50H, Alanine Aminotransferase (ALT/SGPT) 44, Alkaline Phosphatase 226H, Total Protein 7.0, Albumin 2.2L, Globulin 4.8, Albumin/Globulin Ratio 0.5L, Random Vancomycin Level [Pending] Height (Feet): 5 Height (Inches): 6.00 Weight (Pounds): 163 General Appearance: no apparent distress EENT: PERRL/EOMI Neck: supple Cardiovascular: tachycardia Respiratory/Chest: decreased breath sounds Abdomen: normal bowel sounds, non tender, soft Extremities: non-tender João Rdz MD December 24, 2019 07:25
[2019-12-24 07:33] LABS: WHITE BLOOD COUNT 29.8 K/UL (4.8-10.8)
--- NOTE | 2019-12-24 07:50 | NUR ---
NURSE NOTES: Received critical lab report for serum WBC 29.8. WBC trending down. MD not notified as this is expected.
[2019-12-24] MEDS: Nephrovite tab (Rena-Vite) NG SCH (08:49)
[2019-12-24] MEDS: Midodrine 10mg tab ORAL SCH ×3 (08:49→17:14)
[2019-12-24] MEDS: Renvela 800mg Pkt NG SCH ×3 (08:50→17:14)
[2019-12-24] MEDS: Vancomycin oral 125mg/2.5ml ORAL SCH ×3 (08:50→17:14)
[2019-12-24] MEDS: Pantoprazole Inj IVP SCH (08:50)
--- NOTE | 2019-12-24 09:03 | Nephrology Progress Note ---
Assessment/Plan Plan #ALBARO- concerns for developing ischemic ATN in the setting of sepsis- r/o vanco toxicity - r/o COVID nephropathy - now with likely ATN #Hyperkalemia due to renal insuffiency - exacerbated by acidosis #COID sepsis #COVID pneumonia #hypoxemic respiratary failure #HTN- now in shock #mediastinal PTX - next HD today - albumin 25g before HD - midodorine 10mg q8hr - add sevelamer 800mg TID - monitor I&Os - daily weights - monitor lytes closely -add nephrovite - GOALS of care discussion - continue pressor support to maintain MAP > 65- continue levo - continue fentanyl dip - abx per ID- on vanco and meropenem - vent management per pulm -Abd Xray shows mediastinal PTX - too high risk for thorocotomy Subjective ROS Limited/Unobtainable: Yes Subjective remains oliguric plan for HD today on Fio2 70 on levo Abd Xray shows mediastinal PTX Objective Objective Last 24 Hour Vital Signs Date Time Temp Pulse Resp B/P (MAP) Pulse Ox O2 Delivery O2 Flow Rate FiO2 12/24/19 08:00 88 12/24/19 08:00 70 12/24/19 08:00 88 28 127/64 (85) 100 12/24/19 08:00 Mechanical Ventilator 12/24/19 07:45 87 25 127/65 (85) 100 12/24/19 07:30 91 30 119/62 (81) 99 12/24/19 07:00 30 Mechanical Ventilator 70 12/24/19 07:00 119/62 12/24/19 07:00 30 Mechanical Ventilator 70 12/24/19 07:00 91 24 129/63 (85) 100 12/24/19 06:58 89 25 70 12/24/19 06:30 89 24 122/68 (86) 100 12/24/19 06:00 94 30 120/68 (85) 100 12/24/19 06:00 22 Mechanical Ventilator 80 12/24/19 06:00 122/66 12/24/19 06:00 22 80 12/24/19 05:30 96 28 125/61 (82) 100 12/24/19 05:00 95 28 122/66 (84) 100 12/24/19 05:00 22 Mechanical Ventilator 12/24/19 05:00 115/60 12/24/19 05:00 23 Mechanical Ventilator 80 12/24/19 04:30 95 30 114/66 (82) 100 12/24/19 04:00 90 12/24/19 04:00 Mechanical Ventilator 12/24/19 04:00 22 Mechanical Ventilator 80 12/24/19 04:00 110/63 12/24/19 04:00 24 Mechanical Ventilator 80 12/24/19 04:00 60 12/24/19 04:00 99.0 97 32 109/59 (76) 94 12/24/19 03:33 99 28 70 12/24/19 03:30 99 20 122/62 (82) 98 12/24/19 03:20 130/70 12/24/19 03:00 23 Mechanical Ventilator 80 12/24/19 03:00 23 Mechanical Ventilator 80 12/24/19 03:00 101 24 85/48 (60) 96 12/24/19 02:30 98 22 109/61 (77) 98 12/24/19 02:00 24 Mechanical Ventilator 80 12/24/19 02:00 101/60 12/24/19 02:00 22 Mechanical Ventilator 80 12/24/19 02:00 98 23 107/56 (73) 98 12/24/19 01:45 21 Mechanical Ventilator 60 12/24/19 01:30 97 27 102/57 (72) 97 12/24/19 01:00 102 31 105/58 (74) 92 12/24/19 01:00 23 Mechanical Ventilator 80 12/24/19 01:00 104/58 12/24/19 01:00 22 Mechanical Ventilator 80 12/24/19 00:30 101 35 112/58 (76) 93 12/24/19 00:15 96 32 95/45 (62) 97 12/24/19 00:00 95 12/24/19 00:00 Mechanical Ventilator 12/24/19 00:00 60 12/24/19 00:00 98.8 96 31 114/60 (78) 100 12/24/19 00:00 23 Mechanical Ventilator 80 12/24/19 00:00 95/45 12/24/19 00:00 23 Mechanical Ventilator 80 12/23/19 23:53 102 33 60 12/23/19 23:30 96 32 105/61 (76) 100 12/23/19 23:00 23 Mechanical Ventilator 80 12/23/19 23:00 109/66 12/23/19 23:00 22 Mechanical Ventilator 80 12/23/19 23:00 93 27 108/60 (76) 100 12/23/19 22:30 97 26 79/45 (56) 100 12/23/19 22:00 98 28 137/71 (93) 100 12/23/19 22:00 22 Mechanical Ventilator 80 12/23/19 22:00 107/59 12/23/19 22:00 24 Mechanical Ventilator 80 12/23/19 21:33 21 Mechanical Ventilator 70 12/23/19 21:30 95 27 105/61 (76) 100 12/23/19 21:00 99 29 110/57 (74) 100 12/23/19 21:00 25 80 12/23/19 21:00 117/65 12/23/19 21:00 24 80 12/23/19 20:45 99 23 111/62 (78) 100 12/23/19 20:30 100 22 108/67 (81) 100 12/23/19 20:15 101 21 117/65 (82) 100 12/23/19 20:00 70 12/23/19 20:00 23 Mechanical Ventilator 80 12/23/19 20:00 117/65 12/23/19 20:00 22 Mechanical Ventilator 80 12/23/19 20:00 99 12/23/19 20:00 99.0 101 22 119/64 (82) 100 12/23/19 20:00 Mechanical Ventilator 12/23/19 19:49 102 26 70 12/23/19 19:30 104 20 124/67 (86) 100 12/23/19 19:00 105 20 122/68 (86) 100 12/23/19 18:30 108 20 131/67 (88) 99 12/23/19 18:00 108 22 105/65 (78) 98 12/23/19 17:30 110 23 116/66 (83) 98 12/23/19 17:00 115 24 110/54 (72) 96 12/23/19 16:40 74/41 12/23/19 16:30 114 34 74/41 (52) 90 12/23/19 16:00 Mechanical Ventilator 12/23/19 16:00 70 12/23/19 16:00 111 34 111/46 (67) 90 12/23/19 16:00 111 12/23/19 15:30 111 35 121/57 (78) 91 12/23/19 15:00 107 32 102/46 (64) 90 12/23/19 14:56 100 33 70 12/23/19 14:30 102 37 113/57 (75) 96 12/23/19 14:00 105 37 115/58 (77) 96 12/23/19 13:30 105 36 116/57 (76) 96 12/23/19 13:00 106 37 104/57 (73) 96 12/23/19 12:30 108 38 112/56 (74) 95 12/23/19 12:00 99.9 108 38 115/56 (75) 95 12/23/19 12:00 108 12/23/19 12:00 Mechanical Ventilator 12/23/19 12:00 70 12/23/19 11:30 109 39 112/57 (75) 95 12/23/19 11:00 113 37 113/53 (73) 90 12/23/19 10:39 113 35 60 12/23/19 10:30 112 33 100/52 (68) 98 12/23/19 10:00 113 33 106/52 (70) 97 12/23/19 09:30 114 33 95/53 (67) 95 Intake and Output 12/23/19 12/24/19 19:00 07:00 Intake Total 1070.00 ml 965.0 ml Output Total 2000 ml 10 ml Balance -930.00 ml 955.0 ml Free Water 150 ml 30 ml IV Total 460.00 ml 515.0 ml Tube Feeding 420 ml 420 ml Other 40 ml Output Urine Total 0 ml 10 ml Hemodialysis UF 2000 ml Laboratory Tests 12/24/19 05:07: White Blood Count 29.8*H, Red Blood Count 2.63L, Hemoglobin 8.0L, Hematocrit 24.3L, Mean Corpuscular Volume 93, Mean Corpuscular Hemoglobin 30.4, Mean Corpuscular Hemoglobin Concent 32.9, Red Cell Distribution Width 15.4H, Platelet Count 275, Mean Platelet Volume 6.9, Neutrophils (%) (Auto) , Lymphocytes (%) (Auto) , Monocytes (%) (Auto) , Eosinophils (%) (Auto) , Basophils (%) (Auto) , Neutrophils % (Manual) [Pending], Lymphocytes % (Manual) [Pending], Platelet Estimate [Pending], Platelet Morphology [Pending], Sodium Level 135L, Potassium Level 3.6, Chloride Level 95L, Carbon Dioxide Level 34H, Anion Gap 6, Blood Urea Nitrogen 46H, Creatinine 3.7H, Estimat Glomerular Filtration Rate 17.0, Glucose Level 122H, Calcium Level 8.5, Total Bilirubin 0.5 , Aspartate Amino Transf (AST/SGOT) 50H, Alanine Aminotransferase (ALT/SGPT) 44 , Alkaline Phosphatase 226H, Total Protein 7.0, Albumin 2.2L, Globulin 4.8, Albumin/Globulin Ratio 0.5L, Random Vancomycin Level 13.7 Height (Feet): 5 Height (Inches): 6.00 Weight (Pounds): 163 Objective General Appearance: other - intubated- proned Lines, tubes and drains: central line HEENT: normocephalic, atraumatic Respiratory/Chest: rhonchi - bilaterally Cardiovascular/Chest: other - tachycardic Extremities: pitting Dorian Soriano M.D. December 24, 2019 09:03
--- NOTE | 2019-12-24 09:06 | Urology Progress Note ---
Assessment/Plan Status: unchanged Assessment/Plan: 1. Phimosis. 2. Retention. 3. Hematuria. 4. Pyuria. 5. Proteinuria. 6. Acute kidney injury. 7. Meatal stenosis. monitor clinically maintain barnes, placed 12/04 hand irrigate PRN monitor urine output and renal fxn consider renal imaging abx as ordered HD per nephrology f/u on urine cx Subjective Allergies: Coded Allergies: No Known Allergies (Unverified , 11/29/19) Subjective remains on vent, still with minimal urine output, HD Objective Last 24 Hour Vital Signs Date Time Temp Pulse Resp B/P (MAP) Pulse Ox O2 Delivery O2 Flow Rate FiO2 12/24/19 08:00 88 12/24/19 08:00 70 12/24/19 08:00 88 28 127/64 (85) 100 12/24/19 08:00 Mechanical Ventilator 12/24/19 07:45 87 25 127/65 (85) 100 12/24/19 07:30 91 30 119/62 (81) 99 12/24/19 07:00 30 Mechanical Ventilator 70 12/24/19 07:00 119/62 12/24/19 07:00 30 Mechanical Ventilator 70 12/24/19 07:00 91 24 129/63 (85) 100 12/24/19 06:58 89 25 70 12/24/19 06:30 89 24 122/68 (86) 100 12/24/19 06:00 94 30 120/68 (85) 100 12/24/19 06:00 22 Mechanical Ventilator 80 12/24/19 06:00 122/66 12/24/19 06:00 22 80 12/24/19 05:30 96 28 125/61 (82) 100 12/24/19 05:00 95 28 122/66 (84) 100 12/24/19 05:00 22 Mechanical Ventilator 12/24/19 05:00 115/60 12/24/19 05:00 23 Mechanical Ventilator 80 12/24/19 04:30 95 30 114/66 (82) 100 12/24/19 04:00 90 12/24/19 04:00 Mechanical Ventilator 12/24/19 04:00 22 Mechanical Ventilator 80 12/24/19 04:00 110/63 12/24/19 04:00 24 Mechanical Ventilator 80 12/24/19 04:00 60 12/24/19 04:00 99.0 97 32 109/59 (76) 94 12/24/19 03:33 99 28 70 12/24/19 03:30 99 20 122/62 (82) 98 12/24/19 03:20 130/70 12/24/19 03:00 23 Mechanical Ventilator 80 12/24/19 03:00 23 Mechanical Ventilator 80 12/24/19 03:00 101 24 85/48 (60) 96 12/24/19 02:30 98 22 109/61 (77) 98 12/24/19 02:00 24 Mechanical Ventilator 80 12/24/19 02:00 101/60 12/24/19 02:00 22 Mechanical Ventilator 80 12/24/19 02:00 98 23 107/56 (73) 98 12/24/19 01:45 21 Mechanical Ventilator 60 12/24/19 01:30 97 27 102/57 (72) 97 12/24/19 01:00 102 31 105/58 (74) 92 12/24/19 01:00 23 Mechanical Ventilator 80 12/24/19 01:00 104/58 12/24/19 01:00 22 Mechanical Ventilator 80 12/24/19 00:30 101 35 112/58 (76) 93 12/24/19 00:15 96 32 95/45 (62) 97 12/24/19 00:00 95 12/24/19 00:00 Mechanical Ventilator 12/24/19 00:00 60 12/24/19 00:00 98.8 96 31 114/60 (78) 100 12/24/19 00:00 23 Mechanical Ventilator 80 12/24/19 00:00 95/45 12/24/19 00:00 23 Mechanical Ventilator 80 12/23/19 23:53 102 33 60 12/23/19 23:30 96 32 105/61 (76) 100 12/23/19 23:00 23 Mechanical Ventilator 80 12/23/19 23:00 109/66 12/23/19 23:00 22 Mechanical Ventilator 80 12/23/19 23:00 93 27 108/60 (76) 100 12/23/19 22:30 97 26 79/45 (56) 100 12/23/19 22:00 98 28 137/71 (93) 100 12/23/19 22:00 22 Mechanical Ventilator 80 12/23/19 22:00 107/59 12/23/19 22:00 24 Mechanical Ventilator 80 12/23/19 21:33 21 Mechanical Ventilator 70 12/23/19 21:30 95 27 105/61 (76) 100 12/23/19 21:00 99 29 110/57 (74) 100 12/23/19 21:00 25 80 12/23/19 21:00 117/65 12/23/19 21:00 24 80 12/23/19 20:45 99 23 111/62 (78) 100 12/23/19 20:30 100 22 108/67 (81) 100 12/23/19 20:15 101 21 117/65 (82) 100 12/23/19 20:00 70 12/23/19 20:00 23 Mechanical Ventilator 80 12/23/19 20:00 117/65 12/23/19 20:00 22 Mechanical Ventilator 80 12/23/19 20:00 99 12/23/19 20:00 99.0 101 22 119/64 (82) 100 12/23/19 20:00 Mechanical Ventilator 12/23/19 19:49 102 26 70 12/23/19 19:30 104 20 124/67 (86) 100 12/23/19 19:00 105 20 122/68 (86) 100 12/23/19 18:30 108 20 131/67 (88) 99 12/23/19 18:00 108 22 105/65 (78) 98 12/23/19 17:30 110 23 116/66 (83) 98 12/23/19 17:00 115 24 110/54 (72) 96 12/23/19 16:40 74/41 12/23/19 16:30 114 34 74/41 (52) 90 12/23/19 16:00 Mechanical Ventilator 12/23/19 16:00 70 12/23/19 16:00 111 34 111/46 (67) 90 12/23/19 16:00 111 12/23/19 15:30 111 35 121/57 (78) 91 12/23/19 15:00 107 32 102/46 (64) 90 12/23/19 14:56 100 33 70 12/23/19 14:30 102 37 113/57 (75) 96 12/23/19 14:00 105 37 115/58 (77) 96 12/23/19 13:30 105 36 116/57 (76) 96 12/23/19 13:00 106 37 104/57 (73) 96 12/23/19 12:30 108 38 112/56 (74) 95 12/23/19 12:00 99.9 108 38 115/56 (75) 95 12/23/19 12:00 108 12/23/19 12:00 Mechanical Ventilator 12/23/19 12:00 70 12/23/19 11:30 109 39 112/57 (75) 95 12/23/19 11:00 113 37 113/53 (73) 90 12/23/19 10:39 113 35 60 12/23/19 10:30 112 33 100/52 (68) 98 12/23/19 10:00 113 33 106/52 (70) 97 12/23/19 09:30 114 33 95/53 (67) 95 Intake and Output 12/23/19 12/24/19 19:00 07:00 Intake Total 1070.00 ml 965.0 ml Output Total 2000 ml 10 ml Balance -930.00 ml 955.0 ml Free Water 150 ml 30 ml IV Total 460.00 ml 515.0 ml Tube Feeding 420 ml 420 ml Other 40 ml Output Urine Total 0 ml 10 ml Hemodialysis UF 2000 ml Microbiology Date/Time Source Procedure Growth Status 12/17/19 06:55 Blood Blood Culture - Final NO GROWTH AFTER 5 DAYS Complete 12/16/19 16:00 Sputum Gram Stain - Final Complete 12/16/19 16:00 Sputum Sputum Culture - Final NORMAL UPPER RESPIRATORY ALISIA PRESENT Complete 12/23/19 04:00 Stool Clostridium difficile Toxin Assay - Final Complete 12/23/19 04:00 Indwelling Cath Urine Culture - Preliminary NO GROWTH AFTER 24 HOURS Resulted Current Medications Medications (Trade) Dose Ordered Sig/Vicki Route PRN Reason Start Time Stop Time Status Last Admin Dose Admin Acetaminophen (Tylenol) 650 mg Q4H PRN NG Temp >100.5 12/06/19 14:15 01/05/20 14:14 12/23/19 00:31 Acetaminophen (Tylenol) 650 mg Q4H PRN RECTAL Mild Pain (Pain Scale 1-3) 12/04/19 11:45 01/03/20 11:44 12/06/19 19:17 Chlorhexidine Gluconate (Arely-Hex 2%) 1 applic DAILY@2000 TOPIC 12/05/19 20:00 7/22/20 19:59 12/23/19 19:56 Dextrose (Dextrose 50%) 25 ml Q30M PRN IV Hypoglycemia 11/29/19 14:15 02/27/20 14:14 Dextrose (Dextrose 50%) 50 ml Q30M PRN IV Hypoglycemia 11/29/19 14:15 02/27/20 14:14 Fentanyl Citrate 2500 mcg/Sodium Chloride 250 ml @ 0 mls/hr Q24H IV 12/20/19 00:00 12/27/19 00:00 12/23/19 21:33 Fluconazole/ Sodium Chloride 100 ml @ 100 mls/hr Q24H IV 12/22/19 22:00 12/29/19 21:59 12/23/19 21:35 Folic Acid (Folate) 1 mg DAILY NG 12/18/19 09:00 01/17/20 08:59 12/24/19 08:50 Hydralazine HCl (Apresoline) 10 mg Q4H PRN IV For High Blood Pressure 11/29/19 15:15 02/27/20 15:14 Loperamide HCl (Imodium) 2 mg Q6H PRN NG Diarrhea 12/12/19 12:45 01/11/20 12:44 Meropenem 500 mg/ Sodium Chloride 50 ml @ 100 mls/hr Q24H IVPB 12/20/19 21:30 12/25/19 21:29 12/23/19 21:34 Midazolam HCl 100 ml @ 0 mls/hr Q24H PRN IV Restlessness 12/16/19 10:45 03/15/20 10:44 12/24/19 01:45 Midodrine (Pro-Amatine) 10 mg THREE TIMES A DAY ORAL 12/12/19 13:00 03/11/20 12:59 12/24/19 08:49 Norepinephrine Bitartrate 8 mg/ Dextrose 250 ml @ 0 mls/hr Q24H IV 12/18/19 09:00 01/17/20 08:59 12/24/19 03:20 Ondansetron HCl (Zofran) 4 mg Q6H PRN IVP Nausea & Vomiting 11/29/19 14:15 12/29/19 14:14 Pantoprazole (Protonix) 40 mg DAILY IVP 11/30/19 12:15 12/30/19 12:14 12/24/19 08:50 Sevelamer Carbonate (Renvela) 800 mg THREE TIMES A DAY NG 12/22/19 13:00 03/21/20 12:59 12/24/19 08:50 Vancomycin HCl (Firvanq) 125 mg FOUR TIMES A DAY ORAL 12/22/19 21:00 12/29/19 20:59 12/24/19 08:50 Vancomycin HCl (Vanco rx to dose) 1 ea DAILY PRN MISC Per rx protocol 12/08/19 19:30 01/07/20 19:29 Vancomycin HCl 500 mg/Dextrose 110 ml @ 110 mls/hr ONCE ONCE IVPB 12/24/19 10:00 12/24/19 10:59 Vitamin B Complex/ Vit C/Folic Acid (Nephrovite) 1 tab DAILY NG 12/16/19 09:00 01/15/20 08:59 12/24/19 08:49 Laboratory Tests 12/24/19 05:07: White Blood Count 29.8*H, Red Blood Count 2.63L, Hemoglobin 8.0L, Hematocrit 24.3L, Mean Corpuscular Volume 93, Mean Corpuscular Hemoglobin 30.4, Mean Corpuscular Hemoglobin Concent 32.9, Red Cell Distribution Width 15.4H, Platelet Count 275, Mean Platelet Volume 6.9, Neutrophils (%) (Auto) , Lymphocytes (%) (Auto) , Monocytes (%) (Auto) , Eosinophils (%) (Auto) , Basophils (%) (Auto) , Neutrophils % (Manual) [Pending], Lymphocytes % (Manual) [Pending], Platelet Estimate [Pending], Platelet Morphology [Pending], Sodium Level 135L, Potassium Level 3.6, Chloride Level 95L, Carbon Dioxide Level 34H, Anion Gap 6, Blood Urea Nitrogen 46H, Creatinine 3.7H, Estimat Glomerular Filtration Rate 17.0, Glucose Level 122H, Calcium Level 8.5, Total Bilirubin 0.5 , Aspartate Amino Transf (AST/SGOT) 50H, Alanine Aminotransferase (ALT/SGPT) 44 , Alkaline Phosphatase 226H, Total Protein 7.0, Albumin 2.2L, Globulin 4.8, Albumin/Globulin Ratio 0.5L, Random Vancomycin Level 13.7 Height (Feet): 5 Height (Inches): 6.00 Weight (Pounds): 163 Objective stable no bleeding at prepuce barnes indwelling, marge urine Kai Berger MD December 24, 2019 09:06
--- NOTE | 2019-12-24 09:34 | General Progress Note ---
Assessment/Plan Status: unchanged Assessment/Plan: 59-year-old male with PMH of HTN presents with acute respiratory distress. COVID positive, was intubated on 12/03. RESP/ID #Acute Hypoxic Respiratory Failure 2/2 COVID +, HCAP +--> WBC peak on 12/21, now downtrending #Septic Shock #PTX/Pneumomediastinum--> to high risk for intervention #diarrhea -s/p Intubation 12/03 -Appreciate Pulm/ID --> Vent Management -Fentanyl for Sedation 2/2 elevated TG -Pressor support, maintain MAP > 65 -ABG per pulm -Patient is s/p IL-6 inhibitor and Plaquenil -s/p Vanc (12/09-12/15), cefepime (12/09-12/15), flagyl (12/09-12/15) -Trend predictive markers Q3 days; CRP, Pro-Calcitonin, Ferritin, Ddimer -Monitor Ddimer, if 10X upper limit, consider AC for embolic prevention -Continue Broad Spectrum AB per ID, Cx per ID (currently on meropenem, vancomycin, fluconazole, PO vanco for possible c diff) -Surgery to monitor PTX -f/u c diff NEPHRO #ARF now on HD -12/04: femoral HD cath placed -Continue HD per Nephro, last HD 12/20 GI #Shock Liver -Appreciate GI recs -Liver enzymes also likely elevated 2/2 COVID + state CV #Tachcyardia, -s/p AFib now converted to sinus, no further episodes of afib -echo pending COVID -Appreciate Cardio management DVT/GI ppx, Tube Feeding, FULL CODE Time spent on encounter: 58 mins, 32 mins spent on critical care time. Critical Care Services performed include: Telemetry Review Hemodynamic measurement interpretation Laboratory data review and interpretation Radiology image review and interpretation Interpretation of ABG's Discussion of patient's care with ICU team, Nursing staff and/or consulting services, Dr. Soriano, Dr. Appiah, Dr. Cortes. Time of note doesn't reflect time of encounter. Subjective Allergies: Coded Allergies: No Known Allergies (Unverified , 11/29/19) Subjective Follow up for acute hypoxic resp failure, COVID19 positive, intubation/sedated, multi-organ failure. Remains intubated on 70% FiO2, PEEP 5, sedated on pressure support Levo 8, midodrine. WBC remains elevated but down trending. Unable to obtain ROS due to clinical picture. Objective Last 24 Hour Vital Signs Date Time Temp Pulse Resp B/P (MAP) Pulse Ox O2 Delivery O2 Flow Rate FiO2 12/24/19 08:00 88 12/24/19 08:00 70 12/24/19 08:00 88 28 127/64 (85) 100 12/24/19 08:00 Mechanical Ventilator 12/24/19 07:45 87 25 127/65 (85) 100 12/24/19 07:30 91 30 119/62 (81) 99 12/24/19 07:00 30 Mechanical Ventilator 70 12/24/19 07:00 119/62 12/24/19 07:00 30 Mechanical Ventilator 70 12/24/19 07:00 91 24 129/63 (85) 100 12/24/19 06:58 89 25 70 12/24/19 06:30 89 24 122/68 (86) 100 12/24/19 06:00 94 30 120/68 (85) 100 12/24/19 06:00 22 Mechanical Ventilator 80 12/24/19 06:00 122/66 12/24/19 06:00 22 80 12/24/19 05:30 96 28 125/61 (82) 100 12/24/19 05:00 95 28 122/66 (84) 100 12/24/19 05:00 22 Mechanical Ventilator 12/24/19 05:00 115/60 12/24/19 05:00 23 Mechanical Ventilator 80 12/24/19 04:30 95 30 114/66 (82) 100 12/24/19 04:00 90 12/24/19 04:00 Mechanical Ventilator 12/24/19 04:00 22 Mechanical Ventilator 80 12/24/19 04:00 110/63 12/24/19 04:00 24 Mechanical Ventilator 80 12/24/19 04:00 60 12/24/19 04:00 99.0 97 32 109/59 (76) 94 12/24/19 03:33 99 28 70 12/24/19 03:30 99 20 122/62 (82) 98 12/24/19 03:20 130/70 12/24/19 03:00 23 Mechanical Ventilator 80 12/24/19 03:00 23 Mechanical Ventilator 80 12/24/19 03:00 101 24 85/48 (60) 96 12/24/19 02:30 98 22 109/61 (77) 98 12/24/19 02:00 24 Mechanical Ventilator 80 12/24/19 02:00 101/60 12/24/19 02:00 22 Mechanical Ventilator 80 12/24/19 02:00 98 23 107/56 (73) 98 12/24/19 01:45 21 Mechanical Ventilator 60 12/24/19 01:30 97 27 102/57 (72) 97 12/24/19 01:00 102 31 105/58 (74) 92 12/24/19 01:00 23 Mechanical Ventilator 80 12/24/19 01:00 104/58 12/24/19 01:00 22 Mechanical Ventilator 80 12/24/19 00:30 101 35 112/58 (76) 93 12/24/19 00:15 96 32 95/45 (62) 97 12/24/19 00:00 95 12/24/19 00:00 Mechanical Ventilator 12/24/19 00:00 60 12/24/19 00:00 98.8 96 31 114/60 (78) 100 12/24/19 00:00 23 Mechanical Ventilator 80 12/24/19 00:00 95/45 12/24/19 00:00 23 Mechanical Ventilator 80 12/23/19 23:53 102 33 60 12/23/19 23:30 96 32 105/61 (76) 100 12/23/19 23:00 23 Mechanical Ventilator 80 12/23/19 23:00 109/66 12/23/19 23:00 22 Mechanical Ventilator 80 12/23/19 23:00 93 27 108/60 (76) 100 12/23/19 22:30 97 26 79/45 (56) 100 12/23/19 22:00 98 28 137/71 (93) 100 12/23/19 22:00 22 Mechanical Ventilator 80 12/23/19 22:00 107/59 12/23/19 22:00 24 Mechanical Ventilator 80 12/23/19 21:33 21 Mechanical Ventilator 70 12/23/19 21:30 95 27 105/61 (76) 100 12/23/19 21:00 99 29 110/57 (74) 100 12/23/19 21:00 25 80 12/23/19 21:00 117/65 12/23/19 21:00 24 80 12/23/19 20:45 99 23 111/62 (78) 100 12/23/19 20:30 100 22 108/67 (81) 100 12/23/19 20:15 101 21 117/65 (82) 100 12/23/19 20:00 70 12/23/19 20:00 23 Mechanical Ventilator 80 12/23/19 20:00 117/65 12/23/19 20:00 22 Mechanical Ventilator 80 12/23/19 20:00 99 12/23/19 20:00 99.0 101 22 119/64 (82) 100 12/23/19 20:00 Mechanical Ventilator 12/23/19 19:49 102 26 70 12/23/19 19:30 104 20 124/67 (86) 100 12/23/19 19:00 105 20 122/68 (86) 100 12/23/19 18:30 108 20 131/67 (88) 99 12/23/19 18:00 108 22 105/65 (78) 98 12/23/19 17:30 110 23 116/66 (83) 98 12/23/19 17:00 115 24 110/54 (72) 96 12/23/19 16:40 74/41 12/23/19 16:30 114 34 74/41 (52) 90 12/23/19 16:00 Mechanical Ventilator 12/23/19 16:00 70 12/23/19 16:00 111 34 111/46 (67) 90 12/23/19 16:00 111 12/23/19 15:30 111 35 121/57 (78) 91 12/23/19 15:00 107 32 102/46 (64) 90 12/23/19 14:56 100 33 70 12/23/19 14:30 102 37 113/57 (75) 96 12/23/19 14:00 105 37 115/58 (77) 96 12/23/19 13:30 105 36 116/57 (76) 96 12/23/19 13:00 106 37 104/57 (73) 96 12/23/19 12:30 108 38 112/56 (74) 95 12/23/19 12:00 99.9 108 38 115/56 (75) 95 12/23/19 12:00 108 12/23/19 12:00 Mechanical Ventilator 12/23/19 12:00 70 12/23/19 11:30 109 39 112/57 (75) 95 12/23/19 11:00 113 37 113/53 (73) 90 12/23/19 10:39 113 35 60 12/23/19 10:30 112 33 100/52 (68) 98 12/23/19 10:00 113 33 106/52 (70) 97 Intake and Output 12/23/19 12/24/19 19:00 07:00 Intake Total 1070.00 ml 965.0 ml Output Total 2000 ml 10 ml Balance -930.00 ml 955.0 ml Free Water 150 ml 30 ml IV Total 460.00 ml 515.0 ml Tube Feeding 420 ml 420 ml Other 40 ml Output Urine Total 0 ml 10 ml Hemodialysis UF 2000 ml Laboratory Tests 12/24/19 05:07: White Blood Count 29.8*H, Red Blood Count 2.63L, Hemoglobin 8.0L, Hematocrit 24.3L, Mean Corpuscular Volume 93, Mean Corpuscular Hemoglobin 30.4, Mean Corpuscular Hemoglobin Concent 32.9, Red Cell Distribution Width 15.4H, Platelet Count 275, Mean Platelet Volume 6.9, Neutrophils (%) (Auto) , Lymphocytes (%) (Auto) , Monocytes (%) (Auto) , Eosinophils (%) (Auto) , Basophils (%) (Auto) , Neutrophils % (Manual) [Pending], Lymphocytes % (Manual) [Pending], Platelet Estimate [Pending], Platelet Morphology [Pending], Sodium Level 135L, Potassium Level 3.6, Chloride Level 95L, Carbon Dioxide Level 34H, Anion Gap 6, Blood Urea Nitrogen 46H, Creatinine 3.7H, Estimat Glomerular Filtration Rate 17.0, Glucose Level 122H, Calcium Level 8.5, Total Bilirubin 0.5 , Aspartate Amino Transf (AST/SGOT) 50H, Alanine Aminotransferase (ALT/SGPT) 44 , Alkaline Phosphatase 226H, Total Protein 7.0, Albumin 2.2L, Globulin 4.8, Albumin/Globulin Ratio 0.5L, Random Vancomycin Level 13.7 Height (Feet): 5 Height (Inches): 6.00 Weight (Pounds): 163 Objective General Appearance: intubated, OG tube in place, in supine position Cardiovascular: sinus tach on tele, HR low 100's Respiratory/Chest: ETT in place, equal rise in lungs b/l Abdomen: non distended Ext: no edema noted Theodore Aguayo M.D. December 24, 2019 09:34
[2019-12-24] MEDS ORDERED: Vancomycin 500mg/D5W 110ml IVPB ONE ×2 (10:00)
--- NOTE | 2019-12-24 10:00 | NUR ---
NURSE NOTES: Blood pressure 124/64. Levophed decreased to 8mcg/min. Will continue to monitor. Patient repositioned. Bed in low position with bed alarm on and call light in reach. Addendum: 12/24/19 at 1042 by Monserrat Murphy RN Fentanyl running at 100mcg/hr and versed at 5mL/hr. No sign of distress. Will continue to titrate per protocol.
--- NOTE | 2019-12-24 11:07 | Hematology/Onc Progress Note ---
Assessment/Plan Assessment/Plan # Leukocytosis/elevated white blood cell count, unspecified likely related to underlying stress reaction and addition of infection, COVID19++ on vent, intubated --> have reviewed peripheral smear and bandemia/neutrophilia noted --> continue antibiotics if they have been started by ID team --> on broad spectrum abx cefepime/flag/vanc-->katie/vanc/difluc --> monitor for resolution --> smear is noted, with metamyelocytes --> wbc trend 18-->24-->32.9-->34k-->27->26-->32->31->30 --> ID is aware --> again ordered peripheral smear for path review-->reviewed and no blasts noted # Anemia of chronic disease due to underlying chronic medical issues, multifactorial v Gi bleed --> Anemia workup has been ordered, rule out gi bleed --> No evidence of hemolysis is noted, peripheral smear has been reviewed. --> Hgb goal >7. Transfuse prn. --> Epogen or iron at this time is not particularly indicated --> Medications have been reviewed --> low threshold for gi evaluation in case has occult + ==> hgb trend 11-->10.7-->10.4-->9.3-->9.1-->8 # Thrombocytopenia also likely covid related --> supportive care --> plt 149-->164k-->154->195 --> smear noted # Acute Hypoxic Respiratory Failure s/p intubation --> now on vent --> as per Dr. Cortes, weaning prn # COVID19 positive --> abx # Pneumomediastinum --> monitor for expansion --> on vent # Subcutaneous emphysema --> too high risk for bedside thoracostomy # ALBARO on ckd --> hd as needed --> per renal # femoral HD cath placed 12/04 --> hd prn # Dvt ppx scds ANDREW Rn and appreciate consultation Subjective Allergies: Coded Allergies: No Known Allergies (Unverified , 11/29/19) All Systems: reviewed and negative except above Subjective 12/12 remains on vent, ogtube, barnes and rectal tube emptied, right fem jia line 12/14 icu, prone, levo gtt, multiple abx, labs reviewed 12/15 nonv, no bleeding, remains in vent, no bleeding, wbc high, on abx per id 12/16 nonv, on vent, ng, rectal tube, wbc still 34k 12/17 icu, levo gtt, on katie/vanc, tachy 12/18 in icu, on ng tube feeds, vent, no bleeding, jia in place 12/19 in the icu, no bleeding, ngt, with rectal tube, no bleeding ebc 28k 12/21 is with higer wbc, on katie/vanc/diflucan, id aware, on vent 12/22 hgb 7.8, remains on vent, abx as well, labs reviewed wbc 31k 12/23 wbc is 30, hgb 8, no bleeding or chills, on vent, dw rn in am Objective Objective Current Medications Medications (Trade) Dose Ordered Sig/Vicki Route PRN Reason Start Time Stop Time Status Last Admin Dose Admin Acetaminophen (Tylenol) 650 mg Q4H PRN NG Temp >100.5 12/06/19 14:15 01/05/20 14:14 12/23/19 00:31 Acetaminophen (Tylenol) 650 mg Q4H PRN RECTAL Mild Pain (Pain Scale 1-3) 12/04/19 11:45 01/03/20 11:44 12/06/19 19:17 Chlorhexidine Gluconate (Arely-Hex 2%) 1 applic DAILY@2000 TOPIC 12/05/19 20:00 03/04/20 19:59 12/23/19 19:56 Dextrose (Dextrose 50%) 25 ml Q30M PRN IV Hypoglycemia 11/29/19 14:15 02/27/20 14:14 Dextrose (Dextrose 50%) 50 ml Q30M PRN IV Hypoglycemia 11/29/19 14:15 02/27/20 14:14 Fentanyl Citrate 2500 mcg/Sodium Chloride 250 ml @ 0 mls/hr Q24H IV 12/20/19 00:00 12/27/19 00:00 12/23/19 21:33 Fluconazole/ Sodium Chloride 100 ml @ 100 mls/hr Q24H IV 12/22/19 22:00 12/29/19 21:59 12/23/19 21:35 Folic Acid (Folate) 1 mg DAILY NG 12/18/19 09:00 01/17/20 08:59 12/24/19 08:50 Hydralazine HCl (Apresoline) 10 mg Q4H PRN IV For High Blood Pressure 11/29/19 15:15 02/27/20 15:14 Loperamide HCl (Imodium) 2 mg Q6H PRN NG Diarrhea 12/12/19 12:45 01/11/20 12:44 Meropenem 500 mg/ Sodium Chloride 50 ml @ 100 mls/hr Q24H IVPB 12/20/19 21:30 12/25/19 21:29 12/23/19 21:34 Midazolam HCl 100 ml @ 0 mls/hr Q24H PRN IV Restlessness 12/16/19 10:45 03/15/20 10:44 12/24/19 01:45 Midodrine (Pro-Amatine) 10 mg THREE TIMES A DAY ORAL 12/12/19 13:00 03/11/20 12:59 12/24/19 08:49 Norepinephrine Bitartrate 8 mg/ Dextrose 250 ml @ 0 mls/hr Q24H IV 12/18/19 09:00 01/17/20 08:59 12/24/19 03:20 Ondansetron HCl (Zofran) 4 mg Q6H PRN IVP Nausea & Vomiting 11/29/19 14:15 12/29/19 14:14 Pantoprazole (Protonix) 40 mg DAILY IVP 11/30/19 12:15 12/30/19 12:14 12/24/19 08:50 Sevelamer Carbonate (Renvela) 800 mg THREE TIMES A DAY NG 12/22/19 13:00 03/21/20 12:59 12/24/19 08:50 Vancomycin HCl (Firvanq) 125 mg FOUR TIMES A DAY ORAL 12/22/19 21:00 12/29/19 20:59 12/24/19 08:50 Vancomycin HCl (Vanco rx to dose) 1 ea DAILY PRN MISC Per rx protocol 12/08/19 19:30 01/07/20 19:29 Vitamin B Complex/ Vit C/Folic Acid (Nephrovite) 1 tab DAILY NG 12/16/19 09:00 01/15/20 08:59 12/24/19 08:49 Last 24 Hour Vital Signs Date Time Temp Pulse Resp B/P (MAP) Pulse Ox O2 Delivery O2 Flow Rate FiO2 12/24/19 10:41 87 33 70 12/24/19 10:30 88 29 114/64 (81) 100 12/24/19 10:15 90 27 121/62 (81) 99 12/24/19 10:00 30 Mechanical Ventilator 70 12/24/19 10:00 104/60 12/24/19 10:00 30 Mechanical Ventilator 70 12/24/19 10:00 88 28 104/60 (75) 98 12/24/19 09:45 124/64 12/24/19 09:45 89 28 124/64 (84) 100 12/24/19 09:30 91 32 126/63 (84) 99 12/24/19 09:15 92 21 140/67 (91) 100 12/24/19 09:00 30 Mechanical Ventilator 70 12/24/19 09:00 108/58 12/24/19 09:00 30 Mechanical Ventilator 70 12/24/19 09:00 93 31 108/58 (75) 100 12/24/19 08:45 130/64 12/24/19 08:45 94 20 130/64 (86) 100 12/24/19 08:30 87 27 124/60 (81) 100 12/24/19 08:15 98.6 87 28 125/63 (83) 100 12/24/19 08:00 88 12/24/19 08:00 70 12/24/19 08:00 30 Mechanical Ventilator 70 12/24/19 08:00 127/64 12/24/19 08:00 30 Mechanical Ventilator 70 12/24/19 08:00 88 28 127/64 (85) 100 12/24/19 08:00 Mechanical Ventilator 12/24/19 07:45 87 25 127/65 (85) 100 12/24/19 07:30 91 30 119/62 (81) 99 12/24/19 07:00 30 Mechanical Ventilator 70 12/24/19 07:00 119/62 12/24/19 07:00 30 Mechanical Ventilator 70 12/24/19 07:00 91 24 129/63 (85) 100 12/24/19 06:58 89 25 70 12/24/19 06:30 89 24 122/68 (86) 100 12/24/19 06:00 94 30 120/68 (85) 100 12/24/19 06:00 22 Mechanical Ventilator 80 12/24/19 06:00 122/66 12/24/19 06:00 22 80 12/24/19 05:30 96 28 125/61 (82) 100 12/24/19 05:00 95 28 122/66 (84) 100 12/24/19 05:00 22 Mechanical Ventilator 12/24/19 05:00 115/60 12/24/19 05:00 23 Mechanical Ventilator 80 12/24/19 04:30 95 30 114/66 (82) 100 12/24/19 04:00 90 12/24/19 04:00 Mechanical Ventilator 12/24/19 04:00 22 Mechanical Ventilator 80 12/24/19 04:00 110/63 12/24/19 04:00 24 Mechanical Ventilator 80 12/24/19 04:00 60 12/24/19 04:00 99.0 97 32 109/59 (76) 94 12/24/19 03:33 99 28 70 12/24/19 03:30 99 20 122/62 (82) 98 12/24/19 03:20 130/70 12/24/19 03:00 23 Mechanical Ventilator 80 12/24/19 03:00 23 Mechanical Ventilator 80 12/24/19 03:00 101 24 85/48 (60) 96 12/24/19 02:30 98 22 109/61 (77) 98 12/24/19 02:00 24 Mechanical Ventilator 80 12/24/19 02:00 101/60 12/24/19 02:00 22 Mechanical Ventilator 80 12/24/19 02:00 98 23 107/56 (73) 98 12/24/19 01:45 21 Mechanical Ventilator 60 12/24/19 01:30 97 27 102/57 (72) 97 12/24/19 01:00 102 31 105/58 (74) 92 12/24/19 01:00 23 Mechanical Ventilator 80 12/24/19 01:00 104/58 12/24/19 01:00 22 Mechanical Ventilator 80 12/24/19 00:30 101 35 112/58 (76) 93 12/24/19 00:15 96 32 95/45 (62) 97 12/24/19 00:00 95 12/24/19 00:00 Mechanical Ventilator 12/24/19 00:00 60 12/24/19 00:00 98.8 96 31 114/60 (78) 100 12/24/19 00:00 23 Mechanical Ventilator 80 12/24/19 00:00 95/45 12/24/19 00:00 23 Mechanical Ventilator 80 12/23/19 23:53 102 33 60 12/23/19 23:30 96 32 105/61 (76) 100 12/23/19 23:00 23 Mechanical Ventilator 80 12/23/19 23:00 109/66 12/23/19 23:00 22 Mechanical Ventilator 80 12/23/19 23:00 93 27 108/60 (76) 100 12/23/19 22:30 97 26 79/45 (56) 100 12/23/19 22:00 98 28 137/71 (93) 100 12/23/19 22:00 22 Mechanical Ventilator 80 12/23/19 22:00 107/59 12/23/19 22:00 24 Mechanical Ventilator 80 12/23/19 21:33 21 Mechanical Ventilator 70 12/23/19 21:30 95 27 105/61 (76) 100 12/23/19 21:00 99 29 110/57 (74) 100 12/23/19 21:00 25 80 12/23/19 21:00 117/65 12/23/19 21:00 24 80 12/23/19 20:45 99 23 111/62 (78) 100 12/23/19 20:30 100 22 108/67 (81) 100 12/23/19 20:15 101 21 117/65 (82) 100 12/23/19 20:00 70 12/23/19 20:00 23 Mechanical Ventilator 80 12/23/19 20:00 117/65 12/23/19 20:00 22 Mechanical Ventilator 80 12/23/19 20:00 99 12/23/19 20:00 99.0 101 22 119/64 (82) 100 12/23/19 20:00 Mechanical Ventilator 12/23/19 19:49 102 26 70 12/23/19 19:30 104 20 124/67 (86) 100 12/23/19 19:00 105 20 122/68 (86) 100 12/23/19 18:30 108 20 131/67 (88) 99 12/23/19 18:00 108 22 105/65 (78) 98 12/23/19 17:30 110 23 116/66 (83) 98 12/23/19 17:00 115 24 110/54 (72) 96 12/23/19 16:40 74/41 12/23/19 16:30 114 34 74/41 (52) 90 12/23/19 16:00 Mechanical Ventilator 12/23/19 16:00 70 12/23/19 16:00 111 34 111/46 (67) 90 12/23/19 16:00 111 12/23/19 15:30 111 35 121/57 (78) 91 12/23/19 15:00 107 32 102/46 (64) 90 12/23/19 14:56 100 33 70 12/23/19 14:30 102 37 113/57 (75) 96 12/23/19 14:00 105 37 115/58 (77) 96 12/23/19 13:30 105 36 116/57 (76) 96 12/23/19 13:00 106 37 104/57 (73) 96 12/23/19 12:30 108 38 112/56 (74) 95 12/23/19 12:00 99.9 108 38 115/56 (75) 95 12/23/19 12:00 108 12/23/19 12:00 Mechanical Ventilator 12/23/19 12:00 70 12/23/19 11:30 109 39 112/57 (75) 95 12/23/19 11:00 113 37 113/53 (73) 90 12/23/19 10:39 113 35 60 12/23/19 10:30 112 33 100/52 (68) 98 12/23/19 10:00 113 33 106/52 (70) 97 12/23/19 09:30 114 33 95/53 (67) 95 12/23/19 09:00 114 32 104/52 (69) 95 12/23/19 08:30 117 31 104/49 (67) 95 12/23/19 08:00 Mechanical Ventilator 12/23/19 08:00 100.1 117 31 101/51 (68) 96 12/23/19 08:00 70 12/23/19 08:00 117 12/23/19 07:30 117 29 96/48 (64) 98 12/23/19 07:20 116 27 70 12/23/19 07:00 117 28 105/47 (66) 98 12/23/19 06:30 117 29 94/50 (65) 100 12/23/19 06:01 32 Mechanical Ventilator 80 12/23/19 06:00 32 Mechanical Ventilator 80 12/23/19 06:00 92/46 12/23/19 06:00 32 Mechanical Ventilator 80 12/23/19 06:00 115 32 92/46 (61) 95 12/23/19 05:36 29 Mechanical Ventilator 80 12/23/19 05:30 116 32 111/53 (72) 99 12/23/19 05:00 117 24 103/52 (69) 100 12/23/19 05:00 24 Mechanical Ventilator 80 12/23/19 05:00 103/52 12/23/19 05:00 24 Mechanical Ventilator 80 12/23/19 04:30 118 23 102/52 (69) 100 12/23/19 04:00 80 12/23/19 04:00 23 Mechanical Ventilator 80 12/23/19 04:00 104/52 12/23/19 04:00 23 Mechanical Ventilator 80 12/23/19 04:00 98.9 118 23 104/52 (69) 99 12/23/19 04:00 Mechanical Ventilator 12/23/19 04:00 121 12/23/19 03:30 119 22 100/48 (65) 98 12/23/19 03:01 105/55 12/23/19 03:00 121 23 105/47 (66) 97 12/23/19 03:00 119 29 80 12/23/19 03:00 23 Mechanical Ventilator 80 12/23/19 03:00 105/47 12/23/19 03:00 23 Mechanical Ventilator 100 12/23/19 02:30 120 20 103/51 (68) 100 12/23/19 02:00 80 12/23/19 02:00 121 20 104/48 (66) 100 12/23/19 02:00 20 Mechanical Ventilator 80 12/23/19 02:00 104/48 12/23/19 02:00 20 80 12/23/19 01:30 121 20 101/53 (69) 100 12/23/19 01:01 100.2 12/23/19 01:00 122 20 103/51 (68) 100 12/23/19 01:00 20 Mechanical Ventilator 100 12/23/19 01:00 103/51 12/23/19 01:00 20 Mechanical Ventilator 100 12/23/19 00:30 122 21 110/53 (72) 100 12/23/19 00:00 100.3 121 20 110/54 (72) 100 12/23/19 00:00 20 Mechanical Ventilator 100 12/23/19 00:00 110/54 12/23/19 00:00 20 Mechanical Ventilator 100 12/23/19 00:00 121 12/23/19 00:00 100 12/23/19 00:00 Mechanical Ventilator 12/22/19 23:30 121 20 112/52 (72) 100 12/22/19 23:30 110 25 100 12/22/19 23:00 120 21 115/54 (74) 100 12/22/19 23:00 24 Mechanical Ventilator 100 12/22/19 23:00 115/54 12/22/19 23:00 24 Mechanical Ventilator 100 12/22/19 22:30 119 22 113/54 (73) 100 12/22/19 22:00 119 21 115/58 (77) 100 12/22/19 22:00 22 Mechanical Ventilator 100 12/22/19 22:00 115/58 12/22/19 22:00 22 Mechanical Ventilator 100 12/22/19 21:30 119 22 111/55 (73) 100 12/22/19 21:00 100.4 120 22 107/51 (69) 100 12/22/19 21:00 22 Mechanical Ventilator 100 12/22/19 21:00 107/51 12/22/19 21:00 27 Mechanical Ventilator 100 12/22/19 20:30 119 21 110/57 (74) 100 12/22/19 20:00 121 22 113/54 (73) 100 12/22/19 20:00 19 Mechanical Ventilator 100 12/22/19 20:00 123/53 12/22/19 20:00 19 Mechanical Ventilator 100 12/22/19 20:00 122 12/22/19 20:00 Mechanical Ventilator 12/22/19 20:00 100 12/22/19 19:30 121 23 123/53 (76) 100 12/22/19 19:15 121 26 100 12/22/19 19:00 21 Mechanical Ventilator 100 12/22/19 19:00 121/56 12/22/19 19:00 21 100 12/22/19 19:00 119 23 121/56 (77) 100 12/22/19 18:30 117 23 118/59 (78) 100 12/22/19 18:00 24 Mechanical Ventilator 100 12/22/19 18:00 121/58 12/22/19 18:00 24 Mechanical Ventilator 100 12/22/19 18:00 117 24 121/58 (79) 100 12/22/19 17:30 119 25 112/55 (74) 100 12/22/19 17:00 120 25 112/54 (73) 100 12/22/19 17:00 23 Mechanical Ventilator 100 12/22/19 17:00 112/55 12/22/19 17:00 23 Mechanical Ventilator 100 12/22/19 16:30 120 25 117/54 (75) 100 12/22/19 16:00 100 12/22/19 16:00 Mechanical Ventilator 12/22/19 16:00 24 Mechanical Ventilator 100 12/22/19 16:00 114/58 12/22/19 16:00 24 Mechanical Ventilator 100 12/22/19 16:00 118 25 106/57 (73) 100 12/22/19 16:00 119 12/22/19 15:30 98.9 120 25 114/58 (76) 100 12/22/19 15:00 119 24 65 12/22/19 15:00 118 25 114/58 (76) 100 12/22/19 15:00 25 Mechanical Ventilator 100 12/22/19 15:00 114/58 12/22/19 15:00 25 Mechanical Ventilator 100 12/22/19 14:30 117 25 121/59 (79) 100 12/22/19 14:14 107/52 12/22/19 14:00 121 29 90/49 (63) 100 12/22/19 14:00 26 Mechanical Ventilator 100 12/22/19 14:00 26 Mechanical Ventilator 100 12/22/19 13:51 23 Mechanical Ventilator 100 12/22/19 13:30 121 25 93/46 (62) 100 12/22/19 13:00 118 23 96/51 (66) 100 12/22/19 13:00 23 Mechanical Ventilator 100 12/22/19 13:00 96/51 12/22/19 13:00 23 Mechanical Ventilator 100 12/22/19 12:30 117 22 112/56 (74) 100 12/22/19 12:00 98.6 117 23 107/52 (70) 100 12/22/19 12:00 Mechanical Ventilator 12/22/19 12:00 22 Mechanical Ventilator 100 12/22/19 12:00 107/52 12/22/19 12:00 22 Mechanical Ventilator 100 12/22/19 12:00 100 12/22/19 12:00 118 12/22/19 11:30 115 23 110/55 (73) 100 Intake and Output 12/23/19 12/24/19 19:00 07:00 Intake Total 1070.00 ml 965.0 ml Output Total 2000 ml 10 ml Balance -930.00 ml 955.0 ml Free Water 150 ml 30 ml IV Total 460.00 ml 515.0 ml Tube Feeding 420 ml 420 ml Other 40 ml Output Urine Total 0 ml 10 ml Hemodialysis UF 2000 ml Labs Test 12/22/19 04:00 12/22/19 16:00 12/23/19 04:00 12/23/19 04:14 White Blood Count 32.9 K/UL (4.8-10.8) 30.9 K/UL (4.8-10.8) Red Blood Count 3.03 M/UL (4.70-6.10) 2.63 M/UL (4.70-6.10) Hemoglobin 9.0 G/DL (14.2-18.0) 7.8 G/DL (14.2-18.0) Hematocrit 28.2 % (42.0-52.0) 24.8 % (42.0-52.0) Mean Corpuscular Volume 93 FL (80-99) 94 FL (80-99) Mean Corpuscular Hemoglobin 29.8 PG (27.0-31.0) 29.6 PG (27.0-31.0) Mean Corpuscular Hemoglobin Concent 32.0 G/DL (32.0-36.0) 31.4 G/DL (32.0-36.0) Red Cell Distribution Width 14.7 % (11.6-14.8) 15.2 % (11.6-14.8) Platelet Count 255 K/UL (150-450) 249 K/UL (150-450) Mean Platelet Volume 7.2 FL (6.5-10.1) 6.2 FL (6.5-10.1) Neutrophils (%) (Auto) % (45.0-75.0) % (45.0-75.0) Lymphocytes (%) (Auto) % (20.0-45.0) % (20.0-45.0) Monocytes (%) (Auto) % (1.0-10.0) % (1.0-10.0) Eosinophils (%) (Auto) % (0.0-3.0) % (0.0-3.0) Basophils (%) (Auto) % (0.0-2.0) % (0.0-2.0) Differential Total Cells Counted 100 100 Neutrophils % (Manual) 89 % (45-75) 84 % (45-75) Lymphocytes % (Manual) 6 % (20-45) 7 % (20-45) Monocytes % (Manual) 5 % (1-10) 5 % (1-10) Eosinophils % (Manual) 0 % (0-3) 3 % (0-3) Basophils % (Manual) 0 % (0-2) 1 % (0-2) Band Neutrophils 0 % (0-8) 0 % (0-8) Platelet Estimate Adequate Adequate Platelet Morphology Normal Normal Polychromasia 1+ Anisocytosis 1+ 1+ D-Dimer 15.39 mg/L FEU (0.00-0.49) 13.39 mg/L FEU (0.00-0.49) Sodium Level 138 MMOL/L (136-145) 138 MMOL/L (136-145) Potassium Level 3.8 MMOL/L (3.5-5.1) 4.2 MMOL/L (3.5-5.1) Chloride Level 97 MMOL/L (98-107) 97 MMOL/L (98-107) Carbon Dioxide Level 35 MMOL/L (21-32) 33 MMOL/L (21-32) Anion Gap 7 mmol/L (5-15) 8 mmol/L (5-15) Blood Urea Nitrogen 31 mg/dL (7-18) 65 mg/dL (7-18) Creatinine 2.9 MG/DL (0.55-1.30) 5.3 MG/DL (0.55-1.30) Estimat Glomerular Filtration Rate 22.5 mL/min (>60) 11.2 mL/min (>60) Glucose Level 110 MG/DL (74-106) 115 MG/DL (74-106) Calcium Level 8.6 MG/DL (8.5-10.1) 8.8 MG/DL (8.5-10.1) Phosphorus Level 6.4 MG/DL (2.5-4.9) 7.8 MG/DL (2.5-4.9) Magnesium Level 2.4 MG/DL (1.8-2.4) 2.9 MG/DL (1.8-2.4) Ferritin 769 NG/ML (8-388) Total Bilirubin 0.5 MG/DL (0.2-1.0) 0.5 MG/DL (0.2-1.0) Aspartate Amino Transf (AST/SGOT) 62 U/L (15-37) 61 U/L (15-37) Alanine Aminotransferase (ALT/SGPT) 53 U/L (12-78) 50 U/L (12-78) Alkaline Phosphatase 325 U/L (46-116) 264 U/L (46-116) Lactate Dehydrogenase 436 U/L (81-234) Total Creatine Kinase 372 U/L (26-308) Total Protein 7.2 G/DL (6.4-8.2) 6.7 G/DL (6.4-8.2) Albumin 2.5 G/DL (3.4-5.0) 2.2 G/DL (3.4-5.0) Globulin 4.7 g/dL 4.5 g/dL Albumin/Globulin Ratio 0.5 (1.0-2.7) 0.5 (1.0-2.7) Prothrombin Time 9.8 SEC (9.30-11.50) Prothromb Time International Ratio 0.9 (0.9-1.1) Activated Partial Thromboplast Time 27 SEC (23-33) Fibrinogen 755 mg/dL (200-400) Urine Color Brown Urine Appearance Slightly cloudy Urine pH 5 (4.5-8.0) Urine Specific [place] 1.015 (1.005-1.035) Urine Protein 4+ (NEGATIVE) Urine Glucose (UA) 2+ (NEGATIVE) Urine Ketones 1+ (NEGATIVE) Urine Blood 5+ (NEGATIVE) Urine Nitrite Positive (NEGATIVE) Urine Bilirubin Negative (NEGATIVE) Urine Urobilinogen 1 MG/DL (0.0-1.0) Urine Leukocyte Esterase 2+ (NEGATIVE) Urine RBC 15-20 /HPF (0 - 0) Urine WBC 5-10 /HPF (0 - 0) Urine Squamous Epithelial Cells Occasional /LPF Urine Bacteria Moderate /HPF (NONE) Hypochromasia 3+ Test 12/24/19 05:07 White Blood Count 29.8 K/UL (4.8-10.8) Red Blood Count 2.63 M/UL (4.70-6.10) Hemoglobin 8.0 G/DL (14.2-18.0) Hematocrit 24.3 % (42.0-52.0) Mean Corpuscular Volume 93 FL (80-99) Mean Corpuscular Hemoglobin 30.4 PG (27.0-31.0) Mean Corpuscular Hemoglobin Concent 32.9 G/DL (32.0-36.0) Red Cell Distribution Width 15.4 % (11.6-14.8) Platelet Count 275 K/UL (150-450) Mean Platelet Volume 6.9 FL (6.5-10.1) Neutrophils (%) (Auto) % (45.0-75.0) Lymphocytes (%) (Auto) % (20.0-45.0) Monocytes (%) (Auto) % (1.0-10.0) Eosinophils (%) (Auto) % (0.0-3.0) Basophils (%) (Auto) % (0.0-2.0) Differential Total Cells Counted 100 Neutrophils % (Manual) 89 % (45-75) Lymphocytes % (Manual) 3 % (20-45) Monocytes % (Manual) 5 % (1-10) Eosinophils % (Manual) 1 % (0-3) Basophils % (Manual) 0 % (0-2) Band Neutrophils 2 % (0-8) Platelet Estimate Adequate Platelet Morphology Normal Anisocytosis 1+ Sodium Level 135 MMOL/L (136-145) Potassium Level 3.6 MMOL/L (3.5-5.1) Chloride Level 95 MMOL/L (98-107) Carbon Dioxide Level 34 MMOL/L (21-32) Anion Gap 6 mmol/L (5-15) Blood Urea Nitrogen 46 mg/dL (7-18) Creatinine 3.7 MG/DL (0.55-1.30) Estimat Glomerular Filtration Rate 17.0 mL/min (>60) Glucose Level 122 MG/DL (74-106) Calcium Level 8.5 MG/DL (8.5-10.1) Total Bilirubin 0.5 MG/DL (0.2-1.0) Aspartate Amino Transf (AST/SGOT) 50 U/L (15-37) Alanine Aminotransferase (ALT/SGPT) 44 U/L (12-78) Alkaline Phosphatase 226 U/L (46-116) Total Protein 7.0 G/DL (6.4-8.2) Albumin 2.2 G/DL (3.4-5.0) Globulin 4.8 g/dL Albumin/Globulin Ratio 0.5 (1.0-2.7) Random Vancomycin Level 13.7 ug/mL Height (Feet): 5 Height (Inches): 6.00 Weight (Pounds): 163 Objective General: prone position on vent Heent: nc, at+ ng Respiratory: normal breath sounds, no retraction, vent++ Cardiovascular: no edema, tachycardia Gastrointestinal: normal inspection Neurologic unresponsive on vent Psychiatric: judgement/insight normal, memory normal, mood/affect normal, no suicidal/homicidal ideation Ext: with hd fem jia in place : + barnes and rectal tube Mj Zhu MD December 24, 2019 11:07
--- NOTE | 2019-12-24 12:00 | NUR ---
NURSE NOTES: Patient sedated at this time with RASS score -2 on fentanyl 100mcg/hr and Versed 5mL/hr. Patient showing no sign of acute distress. Patient remains orally intubated with Ventilator setting AC 20, tidal volume 500, FiO2 70%, and PEEP 3. Patient tolerating with RR 30 and SpO2 100%. Will continue to monitor and titrate FiO2 as tolerated. Nasal gastric tube remains patent, secure, and running Nepro at 35mL/hr at this time with no residual noted. Rectal tube remains patent and draining dark green stool at this time. Joe remains patent, asymptomatic, and draining small amount of dark marge urine. Right hand 20 gauge peripheral IV that is patent, asymptomatic, and saline locked. Right femoral Bismark catheter with pigtail remains patent, asymptomatic, and running versed, fentanyl, and levophed at 8mcg/min with blood pressure 115/64. Will titrate per protocol as tolerated. Patient bed in low position with bed alarm on and call light in reach at this time. Will continue to monitor. Oral care and repositioning done at this time. Addendum: 12/24/19 at 1629 by Monserrat Murphy RN RASS [phone]
--- NOTE | 2019-12-24 12:18 | Cardiac Electrophysiology PN ---
Assessment/Plan Assessment/Plan 1. Atrial fib with RVR 170 before intubation on 12/04/19. Troponin 0.77. No further atrial fib. In SR 2. Sinus Tachycardia due to COVID-19 pneumonia. On IV antibiotic per ID. Echo pending COVID. 3. Septic shock. On Levophed 8 Mcg, Midodrine 10 tid and iv Abx. 4. Respiratory failure, on the Vent by Dr. Cortes. 700% Fio2, PEEP 5 5. Acute renal failure. On HD per Dr. Sanchez via RFV [place] 6. Full code DW RN Subjective Subjective Intubated in ICU on 70% Fio2 and PEEP 3 on Levo 8 mcg, Fentanyl 150 and Versed 5 drip.No other changes. Objective Last 24 Hour Vital Signs Date Time Temp Pulse Resp B/P (MAP) Pulse Ox O2 Delivery O2 Flow Rate FiO2 12/24/19 12:00 92 12/24/19 12:00 91 30 115/64 (81) 100 12/24/19 11:30 90 31 121/60 (80) 100 12/24/19 11:00 91 29 119/63 (81) 100 12/24/19 11:00 89 20 119/61 (80) 100 12/24/19 10:45 84 19 120/60 (80) 99 12/24/19 10:41 87 33 70 12/24/19 10:30 88 29 114/64 (81) 100 12/24/19 10:15 90 27 121/62 (81) 99 12/24/19 10:00 30 Mechanical Ventilator 70 12/24/19 10:00 104/60 12/24/19 10:00 30 Mechanical Ventilator 70 12/24/19 10:00 88 28 104/60 (75) 98 12/24/19 09:45 124/64 12/24/19 09:45 89 28 124/64 (84) 100 12/24/19 09:30 91 32 126/63 (84) 99 12/24/19 09:15 92 21 140/67 (91) 100 12/24/19 09:00 30 Mechanical Ventilator 70 12/24/19 09:00 108/58 12/24/19 09:00 30 Mechanical Ventilator 70 12/24/19 09:00 93 31 108/58 (75) 100 12/24/19 08:45 130/64 12/24/19 08:45 94 20 130/64 (86) 100 12/24/19 08:30 87 27 124/60 (81) 100 12/24/19 08:15 98.6 87 28 125/63 (83) 100 12/24/19 08:00 88 12/24/19 08:00 70 12/24/19 08:00 30 Mechanical Ventilator 70 12/24/19 08:00 127/64 12/24/19 08:00 30 Mechanical Ventilator 70 12/24/19 08:00 88 28 127/64 (85) 100 12/24/19 08:00 Mechanical Ventilator 12/24/19 07:45 87 25 127/65 (85) 100 12/24/19 07:30 91 30 119/62 (81) 99 12/24/19 07:00 30 Mechanical Ventilator 70 12/24/19 07:00 119/62 12/24/19 07:00 30 Mechanical Ventilator 70 12/24/19 07:00 91 24 129/63 (85) 100 12/24/19 06:58 89 25 70 12/24/19 06:30 89 24 122/68 (86) 100 12/24/19 06:00 94 30 120/68 (85) 100 12/24/19 06:00 22 Mechanical Ventilator 80 12/24/19 06:00 122/66 12/24/19 06:00 22 80 12/24/19 05:30 96 28 125/61 (82) 100 12/24/19 05:00 95 28 122/66 (84) 100 12/24/19 05:00 22 Mechanical Ventilator 12/24/19 05:00 115/60 12/24/19 05:00 23 Mechanical Ventilator 80 12/24/19 04:30 95 30 114/66 (82) 100 12/24/19 04:00 90 12/24/19 04:00 Mechanical Ventilator 12/24/19 04:00 22 Mechanical Ventilator 80 12/24/19 04:00 110/63 12/24/19 04:00 24 Mechanical Ventilator 80 12/24/19 04:00 60 12/24/19 04:00 99.0 97 32 109/59 (76) 94 12/24/19 03:33 99 28 70 12/24/19 03:30 99 20 122/62 (82) 98 5/12/20 03:20 130/70 12/24/19 03:00 23 Mechanical Ventilator 80 12/24/19 03:00 23 Mechanical Ventilator 80 12/24/19 03:00 101 24 85/48 (60) 96 12/24/19 02:30 98 22 109/61 (77) 98 12/24/19 02:00 24 Mechanical Ventilator 80 12/24/19 02:00 101/60 12/24/19 02:00 22 Mechanical Ventilator 80 12/24/19 02:00 98 23 107/56 (73) 98 12/24/19 01:45 21 Mechanical Ventilator 60 12/24/19 01:30 97 27 102/57 (72) 97 12/24/19 01:00 102 31 105/58 (74) 92 12/24/19 01:00 23 Mechanical Ventilator 80 12/24/19 01:00 104/58 12/24/19 01:00 22 Mechanical Ventilator 80 12/24/19 00:30 101 35 112/58 (76) 93 12/24/19 00:15 96 32 95/45 (62) 97 12/24/19 00:00 95 12/24/19 00:00 Mechanical Ventilator 12/24/19 00:00 60 12/24/19 00:00 98.8 96 31 114/60 (78) 100 12/24/19 00:00 23 Mechanical Ventilator 80 12/24/19 00:00 95/45 12/24/19 00:00 23 Mechanical Ventilator 80 12/23/19 23:53 102 33 60 12/23/19 23:30 96 32 105/61 (76) 100 12/23/19 23:00 23 Mechanical Ventilator 80 12/23/19 23:00 109/66 12/23/19 23:00 22 Mechanical Ventilator 80 12/23/19 23:00 93 27 108/60 (76) 100 12/23/19 22:30 97 26 79/45 (56) 100 12/23/19 22:00 98 28 137/71 (93) 100 12/23/19 22:00 22 Mechanical Ventilator 80 12/23/19 22:00 107/59 12/23/19 22:00 24 Mechanical Ventilator 80 12/23/19 21:33 21 Mechanical Ventilator 70 12/23/19 21:30 95 27 105/61 (76) 100 12/23/19 21:00 99 29 110/57 (74) 100 12/23/19 21:00 25 80 12/23/19 21:00 117/65 12/23/19 21:00 24 80 12/23/19 20:45 99 23 111/62 (78) 100 12/23/19 20:30 100 22 108/67 (81) 100 12/23/19 20:15 101 21 117/65 (82) 100 12/23/19 20:00 70 12/23/19 20:00 23 Mechanical Ventilator 80 12/23/19 20:00 117/65 12/23/19 20:00 22 Mechanical Ventilator 80 12/23/19 20:00 99 12/23/19 20:00 99.0 101 22 119/64 (82) 100 12/23/19 20:00 Mechanical Ventilator 12/23/19 19:49 102 26 70 12/23/19 19:30 104 20 124/67 (86) 100 12/23/19 19:00 105 20 122/68 (86) 100 12/23/19 18:30 108 20 131/67 (88) 99 12/23/19 18:00 108 22 105/65 (78) 98 12/23/19 17:30 110 23 116/66 (83) 98 12/23/19 17:00 115 24 110/54 (72) 96 12/23/19 16:40 74/41 12/23/19 16:30 114 34 74/41 (52) 90 12/23/19 16:00 Mechanical Ventilator 12/23/19 16:00 70 12/23/19 16:00 111 34 111/46 (67) 90 12/23/19 16:00 111 12/23/19 15:30 111 35 121/57 (78) 91 12/23/19 15:00 107 32 102/46 (64) 90 12/23/19 14:56 100 33 70 12/23/19 14:30 102 37 113/57 (75) 96 12/23/19 14:00 105 37 115/58 (77) 96 12/23/19 13:30 105 36 116/57 (76) 96 12/23/19 13:00 106 37 104/57 (73) 96 12/23/19 12:30 108 38 112/56 (74) 95 Intake and Output 12/23/19 12/24/19 19:00 07:00 Intake Total 1070.00 ml 965.0 ml Output Total 2000 ml 10 ml Balance -930.00 ml 955.0 ml Free Water 150 ml 30 ml IV Total 460.00 ml 515.0 ml Tube Feeding 420 ml 420 ml Other 40 ml Output Urine Total 0 ml 10 ml Hemodialysis UF 2000 ml Laboratory Tests Test 12/24/19 05:07 White Blood Count 29.8 K/UL (4.8-10.8) *H Red Blood Count 2.63 M/UL (4.70-6.10) L Hemoglobin 8.0 G/DL (14.2-18.0) L Hematocrit 24.3 % (42.0-52.0) L Mean Corpuscular Volume 93 FL (80-99) Mean Corpuscular Hemoglobin 30.4 PG (27.0-31.0) Mean Corpuscular Hemoglobin Concent 32.9 G/DL (32.0-36.0) Red Cell Distribution Width 15.4 % (11.6-14.8) H Platelet Count 275 K/UL (150-450) Mean Platelet Volume 6.9 FL (6.5-10.1) Neutrophils (%) (Auto) % (45.0-75.0) Lymphocytes (%) (Auto) % (20.0-45.0) Monocytes (%) (Auto) % (1.0-10.0) Eosinophils (%) (Auto) % (0.0-3.0) Basophils (%) (Auto) % (0.0-2.0) Differential Total Cells Counted 100 Neutrophils % (Manual) 89 % (45-75) H Lymphocytes % (Manual) 3 % (20-45) L Monocytes % (Manual) 5 % (1-10) Eosinophils % (Manual) 1 % (0-3) Basophils % (Manual) 0 % (0-2) Band Neutrophils 2 % (0-8) Platelet Estimate Adequate Platelet Morphology Normal Anisocytosis 1+ Sodium Level 135 MMOL/L (136-145) L Potassium Level 3.6 MMOL/L (3.5-5.1) Chloride Level 95 MMOL/L (98-107) L Carbon Dioxide Level 34 MMOL/L (21-32) H Anion Gap 6 mmol/L (5-15) Blood Urea Nitrogen 46 mg/dL (7-18) H Creatinine 3.7 MG/DL (0.55-1.30) H Estimat Glomerular Filtration Rate 17.0 mL/min (>60) Glucose Level 122 MG/DL (74-106) H Calcium Level 8.5 MG/DL (8.5-10.1) Total Bilirubin 0.5 MG/DL (0.2-1.0) Aspartate Amino Transf (AST/SGOT) 50 U/L (15-37) H Alanine Aminotransferase (ALT/SGPT) 44 U/L (12-78) Alkaline Phosphatase 226 U/L (46-116) H Total Protein 7.0 G/DL (6.4-8.2) Albumin 2.2 G/DL (3.4-5.0) L Globulin 4.8 g/dL Albumin/Globulin Ratio 0.5 (1.0-2.7) L Random Vancomycin Level 13.7 ug/mL Microbiology Date/Time Source Procedure Growth Status 12/22/19 16:15 Blood Blood Culture - Preliminary NO GROWTH AFTER 24 HOURS Resulted 12/22/19 16:00 Blood Blood Culture - Preliminary NO GROWTH AFTER 24 HOURS Resulted 12/23/19 04:00 Stool Clostridium difficile Toxin Assay - Final Complete 12/23/19 04:00 Indwelling Cath Urine Culture - Preliminary NO GROWTH AFTER 24 HOURS Resulted Objective HEAD AND NECK: Orally intubated No JVD LUNGS: Decreased breath sounds. Coarse rhonchi. CARDIOVASCULAR: Tachycardic S1 and S2 with no gallop. ABDOMEN: Soft. EXTREMITIES: 1 plus pitting edema. RFV [place] in place Raul Appiah MD December 24, 2019 12:18
--- NOTE | 2019-12-24 12:19 | Pulmonology Progress Note ---
Subjective ROS Limited/Unobtainable: No Interval Events: Intubated ;proning on hold due to facial decubitus Constitutional: Reports: fever, other - on vent and pressors HEENT: Repors: no symptoms Respiratory: Reports: no symptoms Cardiovascular: Reports: no symptoms Gastrointestinal/Abdominal: Reports: diarrhea, other - + rectal tube ; Denies: nausea, vomiting Genitourinary: Reports: no symptoms Psychiatric: Reports: other - NA Skin: Denies: rash Musculoskeletal: Reports: other - NA Allergies: Coded Allergies: No Known Allergies (Unverified , 11/29/19) All Systems: reviewed and negative except above Subjective On daily HD Objective Last 24 Hour Vital Signs Date Time Temp Pulse Resp B/P (MAP) Pulse Ox O2 Delivery O2 Flow Rate FiO2 12/24/19 12:00 92 12/24/19 12:00 91 30 115/64 (81) 100 12/24/19 11:30 90 31 121/60 (80) 100 12/24/19 11:00 91 29 119/63 (81) 100 12/24/19 11:00 89 20 119/61 (80) 100 12/24/19 10:45 84 19 120/60 (80) 99 12/24/19 10:41 87 33 70 12/24/19 10:30 88 29 114/64 (81) 100 12/24/19 10:15 90 27 121/62 (81) 99 12/24/19 10:00 30 Mechanical Ventilator 70 12/24/19 10:00 104/60 12/24/19 10:00 30 Mechanical Ventilator 70 12/24/19 10:00 88 28 104/60 (75) 98 12/24/19 09:45 124/64 12/24/19 09:45 89 28 124/64 (84) 100 12/24/19 09:30 91 32 126/63 (84) 99 12/24/19 09:15 92 21 140/67 (91) 100 12/24/19 09:00 30 Mechanical Ventilator 70 12/24/19 09:00 108/58 12/24/19 09:00 30 Mechanical Ventilator 70 12/24/19 09:00 93 31 108/58 (75) 100 12/24/19 08:45 130/64 12/24/19 08:45 94 20 130/64 (86) 100 12/24/19 08:30 87 27 124/60 (81) 100 12/24/19 08:15 98.6 87 28 125/63 (83) 100 12/24/19 08:00 88 12/24/19 08:00 70 12/24/19 08:00 30 Mechanical Ventilator 70 12/24/19 08:00 127/64 12/24/19 08:00 30 Mechanical Ventilator 70 12/24/19 08:00 88 28 127/64 (85) 100 12/24/19 08:00 Mechanical Ventilator 12/24/19 07:45 87 25 127/65 (85) 100 12/24/19 07:30 91 30 119/62 (81) 99 12/24/19 07:00 30 Mechanical Ventilator 70 12/24/19 07:00 119/62 12/24/19 07:00 30 Mechanical Ventilator 70 12/24/19 07:00 91 24 129/63 (85) 100 12/24/19 06:58 89 25 70 12/24/19 06:30 89 24 122/68 (86) 100 12/24/19 06:00 94 30 120/68 (85) 100 12/24/19 06:00 22 Mechanical Ventilator 80 12/24/19 06:00 122/66 12/24/19 06:00 22 80 12/24/19 05:30 96 28 125/61 (82) 100 12/24/19 05:00 95 28 122/66 (84) 100 12/24/19 05:00 22 Mechanical Ventilator 12/24/19 05:00 115/60 12/24/19 05:00 23 Mechanical Ventilator 80 12/24/19 04:30 95 30 114/66 (82) 100 12/24/19 04:00 90 12/24/19 04:00 Mechanical Ventilator 12/24/19 04:00 22 Mechanical Ventilator 80 12/24/19 04:00 110/63 12/24/19 04:00 24 Mechanical Ventilator 80 12/24/19 04:00 60 12/24/19 04:00 99.0 97 32 109/59 (76) 94 12/24/19 03:33 99 28 70 12/24/19 03:30 99 20 122/62 (82) 98 12/24/19 03:20 130/70 12/24/19 03:00 23 Mechanical Ventilator 80 12/24/19 03:00 23 Mechanical Ventilator 80 12/24/19 03:00 101 24 85/48 (60) 96 12/24/19 02:30 98 22 109/61 (77) 98 12/24/19 02:00 24 Mechanical Ventilator 80 12/24/19 02:00 101/60 12/24/19 02:00 22 Mechanical Ventilator 80 12/24/19 02:00 98 23 107/56 (73) 98 12/24/19 01:45 21 Mechanical Ventilator 60 12/24/19 01:30 97 27 102/57 (72) 97 12/24/19 01:00 102 31 105/58 (74) 92 12/24/19 01:00 23 Mechanical Ventilator 80 12/24/19 01:00 104/58 12/24/19 01:00 22 Mechanical Ventilator 80 12/24/19 00:30 101 35 112/58 (76) 93 12/24/19 00:15 96 32 95/45 (62) 97 12/24/19 00:00 95 12/24/19 00:00 Mechanical Ventilator 12/24/19 00:00 60 12/24/19 00:00 98.8 96 31 114/60 (78) 100 12/24/19 00:00 23 Mechanical Ventilator 80 12/24/19 00:00 95/45 12/24/19 00:00 23 Mechanical Ventilator 80 12/23/19 23:53 102 33 60 12/23/19 23:30 96 32 105/61 (76) 100 12/23/19 23:00 23 Mechanical Ventilator 80 12/23/19 23:00 109/66 12/23/19 23:00 22 Mechanical Ventilator 80 12/23/19 23:00 93 27 108/60 (76) 100 12/23/19 22:30 97 26 79/45 (56) 100 12/23/19 22:00 98 28 137/71 (93) 100 12/23/19 22:00 22 Mechanical Ventilator 80 12/23/19 22:00 107/59 12/23/19 22:00 24 Mechanical Ventilator 80 12/23/19 21:33 21 Mechanical Ventilator 70 12/23/19 21:30 95 27 105/61 (76) 100 12/23/19 21:00 99 29 110/57 (74) 100 12/23/19 21:00 25 80 12/23/19 21:00 117/65 12/23/19 21:00 24 80 12/23/19 20:45 99 23 111/62 (78) 100 12/23/19 20:30 100 22 108/67 (81) 100 12/23/19 20:15 101 21 117/65 (82) 100 12/23/19 20:00 70 12/23/19 20:00 23 Mechanical Ventilator 80 12/23/19 20:00 117/65 12/23/19 20:00 22 Mechanical Ventilator 80 12/23/19 20:00 99 12/23/19 20:00 99.0 101 22 119/64 (82) 100 12/23/19 20:00 Mechanical Ventilator 12/23/19 19:49 102 26 70 12/23/19 19:30 104 20 124/67 (86) 100 12/23/19 19:00 105 20 122/68 (86) 100 12/23/19 18:30 108 20 131/67 (88) 99 12/23/19 18:00 108 22 105/65 (78) 98 12/23/19 17:30 110 23 116/66 (83) 98 12/23/19 17:00 115 24 110/54 (72) 96 12/23/19 16:40 74/41 12/23/19 16:30 114 34 74/41 (52) 90 12/23/19 16:00 Mechanical Ventilator 12/23/19 16:00 70 12/23/19 16:00 111 34 111/46 (67) 90 12/23/19 16:00 111 12/23/19 15:30 111 35 121/57 (78) 91 12/23/19 15:00 107 32 102/46 (64) 90 12/23/19 14:56 100 33 70 12/23/19 14:30 102 37 113/57 (75) 96 12/23/19 14:00 105 37 115/58 (77) 96 12/23/19 13:30 105 36 116/57 (76) 96 12/23/19 13:00 106 37 104/57 (73) 96 12/23/19 12:30 108 38 112/56 (74) 95 Intake and Output 12/23/19 12/24/19 19:00 07:00 Intake Total 1070.00 ml 965.0 ml Output Total 2000 ml 10 ml Balance -930.00 ml 955.0 ml Free Water 150 ml 30 ml IV Total 460.00 ml 515.0 ml Tube Feeding 420 ml 420 ml Other 40 ml Output Urine Total 0 ml 10 ml Hemodialysis UF 2000 ml General Appearance: other - on vent, on pressors HEENT: normocephalic, atraumatic, no JVD Respiratory/Chest: chest wall non-tender, decreased breath sounds Cardiovascular: normal peripheral pulses, normal rate Abdomen: normal bowel sounds, soft, non tender, no organomegaly, non distended , other - + rectal tube Genitourinary: other - + barnes - urine slt cloudy Extremities: no cyanosis Skin: no rash Neurologic/Psychiatric: motor weakness, other - lethargic, weak Lymphatic: no neck adenopathy Musculoskeletal: no effusion Microbiology Date/Time Source Procedure Growth Status 12/22/19 16:15 Blood Blood Culture - Preliminary NO GROWTH AFTER 24 HOURS Resulted 12/22/19 16:00 Blood Blood Culture - Preliminary NO GROWTH AFTER 24 HOURS Resulted 12/23/19 04:00 Stool Clostridium difficile Toxin Assay - Final Complete 12/23/19 04:00 Indwelling Cath Urine Culture - Preliminary NO GROWTH AFTER 24 HOURS Resulted Laboratory Tests 12/24/19 05:07: White Blood Count 29.8*H, Red Blood Count 2.63L, Hemoglobin 8.0L, Hematocrit 24.3L, Mean Corpuscular Volume 93, Mean Corpuscular Hemoglobin 30.4, Mean Corpuscular Hemoglobin Concent 32.9, Red Cell Distribution Width 15.4H, Platelet Count 275, Mean Platelet Volume 6.9, Neutrophils (%) (Auto) , Lymphocytes (%) (Auto) , Monocytes (%) (Auto) , Eosinophils (%) (Auto) , Basophils (%) (Auto) , Differential Total Cells Counted 100, Neutrophils % ( Manual) 89H, Lymphocytes % (Manual) 3L, Monocytes % (Manual) 5, Eosinophils % ( Manual) 1, Basophils % (Manual) 0, Band Neutrophils 2, Platelet Estimate Adequate, Platelet Morphology Normal, Anisocytosis 1+, Sodium Level 135L, Potassium Level 3.6, Chloride Level 95L, Carbon Dioxide Level 34H, Anion Gap 6, Blood Urea Nitrogen 46H, Creatinine 3.7H, Estimat Glomerular Filtration Rate 17.0, Glucose Level 122H, Calcium Level 8.5, Total Bilirubin 0.5, Aspartate Amino Transf (AST/SGOT) 50H, Alanine Aminotransferase (ALT/SGPT) 44, Alkaline Phosphatase 226H, Total Protein 7.0, Albumin 2.2L, Globulin 4.8, Albumin/ Globulin Ratio 0.5L, Random Vancomycin Level 13.7 Current Medications Medications (Trade) Dose Ordered Sig/Vicki Route PRN Reason Start Time Stop Time Status Last Admin Dose Admin Acetaminophen (Tylenol) 650 mg Q4H PRN NG Temp >100.5 12/06/19 14:15 01/05/20 14:14 12/23/19 00:31 Acetaminophen (Tylenol) 650 mg Q4H PRN RECTAL Mild Pain (Pain Scale 1-3) 12/04/19 11:45 01/03/20 11:44 12/06/19 19:17 Chlorhexidine Gluconate (Arely-Hex 2%) 1 applic DAILY@2000 TOPIC 12/05/19 20:00 03/04/20 19:59 12/23/19 19:56 Dextrose (Dextrose 50%) 25 ml Q30M PRN IV Hypoglycemia 11/29/19 14:15 02/27/20 14:14 Dextrose (Dextrose 50%) 50 ml Q30M PRN IV Hypoglycemia 11/29/19 14:15 02/27/20 14:14 Fentanyl Citrate 2500 mcg/Sodium Chloride 250 ml @ 0 mls/hr Q24H IV 12/20/19 00:00 12/27/19 00:00 12/23/19 21:33 Fluconazole/ Sodium Chloride 100 ml @ 100 mls/hr Q24H IV 12/22/19 22:00 12/29/19 21:59 12/23/19 21:35 Folic Acid (Folate) 1 mg DAILY NG 12/18/19 09:00 01/17/20 08:59 12/24/19 08:50 Hydralazine HCl (Apresoline) 10 mg Q4H PRN IV For High Blood Pressure 11/29/19 15:15 02/27/20 15:14 Loperamide HCl (Imodium) 2 mg Q6H PRN NG Diarrhea 12/12/19 12:45 01/11/20 12:44 Meropenem 500 mg/ Sodium Chloride 50 ml @ 100 mls/hr Q24H IVPB 12/20/19 21:30 12/25/19 21:29 12/23/19 21:34 Midazolam HCl 100 ml @ 0 mls/hr Q24H PRN IV Restlessness 12/16/19 10:45 03/15/20 10:44 12/24/19 01:45 Midodrine (Pro-Amatine) 10 mg THREE TIMES A DAY ORAL 12/12/19 13:00 03/11/20 12:59 12/24/19 08:49 Norepinephrine Bitartrate 8 mg/ Dextrose 250 ml @ 0 mls/hr Q24H IV 12/18/19 09:00 01/17/20 08:59 12/24/19 03:20 Ondansetron HCl (Zofran) 4 mg Q6H PRN IVP Nausea & Vomiting 11/29/19 14:15 12/29/19 14:14 Pantoprazole (Protonix) 40 mg DAILY IVP 11/30/19 12:15 12/30/19 12:14 12/24/19 08:50 Sevelamer Carbonate (Renvela) 800 mg THREE TIMES A DAY NG 12/22/19 13:00 03/21/20 12:59 12/24/19 08:50 Vancomycin HCl (Firvanq) 125 mg FOUR TIMES A DAY ORAL 12/22/19 21:00 12/29/19 20:59 12/24/19 08:50 Vancomycin HCl (Vanco rx to dose) 1 ea DAILY PRN MISC Per rx protocol 12/08/19 19:30 01/07/20 19:29 Vitamin B Complex/ Vit C/Folic Acid (Nephrovite) 1 tab DAILY NG 12/16/19 09:00 01/15/20 08:59 12/24/19 08:49 Assessment/Plan Assessment/Plan IMPRESSION: 1. Bilateral pneumonia. 2. Positive COVID-19. 3. Respiratory failure. DISCUSSION: Intubated On AC 20; FiO2 80; PEEP 3; SaO2 99% Mediastinal PTX; stable; continue low PEEP ventilation Hold proning On Fentanyl due to high triglycerides Saturations are better Grave prognosis I will follow carefully. On HD now S/p Actemra Blood CS ? contaminant Needs ongoing HD; more ultrafiltration Urine CS negative Continue PEEP 3 Continue vent Tray Tolentino Omar Syed MD December 24, 2019 12:19
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
--- NOTE | 2019-12-24 14:00 | NUR ---
NURSE NOTES: Patient about to begin hemodialysis. Blood pressure 117/59 on levophed at 8mcg/min. Patient remains -2 RASS score with fentanyl at 80mcg/hr and Versed at 5mL/hr. Will continue to monitor and titrate all drips per protocol. Patient repositioned at this time. Addendum: 12/24/19 at 1629 by Monserrat Murphy RN RASS -4.
--- NOTE | 2019-12-24 15:08 | NUR ---
CASE MANAGEMENT: REVIEW SI: COVID-19 INFECTION . PNA . INTUBATED RIGHT FEMORAL TEMP HD CATH PLACEMENT T 98.3 HR 93 RR 33 BP 117/59 SAT 98% MECH VENT FIO2 70 WBC 29.8 H/H 8.0/24.3 NA 135 [id number] CR 3.7 ALK PHOS 226 OB STOOL PENDING IS: MIDAZOLAM IV Q24HR FENTANYL IV Q24HR LEVOPHED IV Q24HR DIFLUCAN IV Q24HR MEROPENEM IV Q24HR TYLENOL 650MG Q6HR NEEDED IMODIUM NGT NEEDED NGT FEEDING RECTAL TUBE HEMODIALYSIS NEEDED ICU STATUS DCP: PATIENT IS FROM HOME
--- NOTE | 2019-12-24 16:00 | NUR ---
NURSE NOTES: Patient sedated at this time with RASS score -4 on fentanyl 50mcg/hr and Versed 3mL/hr. Patient showing no sign of acute distress. Patient remains orally intubated with Ventilator setting AC 20, tidal volume 500, FiO2 70%, and PEEP 3. Patient tolerating with RR 30 and SpO2 100%. Will continue to monitor and titrate FiO2 as tolerated. Nasal gastric tube remains patent, secure, and running Nepro at 35mL/hr at this time with no residual noted. Rectal tube remains patent and draining dark green stool at this time. Joe remains patent, asymptomatic, and draining small amount of dark marge urine. Right hand 20 gauge peripheral IV that is patent, asymptomatic, and saline locked. Right femoral Bismark catheter with pigtail remains patent, asymptomatic, and running versed, fentanyl, and Levophed at 8mcg/min with blood pressure 107/56. Will titrate per protocol as tolerated. Patient bed in low position with bed alarm on and call light in reach at this time. Will continue to monitor. Oral care and repositioning done at this time.
--- NOTE | 2019-12-24 16:23 | NUR ---
NURSE NOTES: Patient sedated with RASS -4. Notified Dr Cortes that patient has been deeply sedated. Asked for clarification regarding sedation order. Received order to sedate patient with fentanyl and versed to RASS -3. Order read back, verified, and placed. Will continue to titrate drips to reach RASS of -3.
[2019-12-24] MEDS: fentaNYL Citrate 2,500 MCG in NS 200 ML IV SCH (16:56)
--- NOTE | 2019-12-24 18:30 | NUR ---
NURSE NOTES: Patient became tachycardic in 120s and tachypneic with RR in 40s with low volumes of 300-400 received. saturation dropped to 85-90% on ventilator setting at 70% FiO2. Patient suctioned and sedation increased to fentanyl at 100mcg/hr and versed 5mL/hr, but patient still in distress. Patient FiO2 increased to 100%. Patient remains tachycardic with HR 113 beats per minute but no longer tachypneic and now receiving full volumes on the ventilator.
--- NOTE | 2019-12-24 19:10 | NUR ---
HAND-OFF: Report given to DARYA Shaw.
--- NOTE | 2019-12-24 19:15 | NUR ---
NURSE NOTES: Received pt orally intubated, sedated with Fentanyl drip at 100mcg/min, Versed at 5mg/hr, Bp been supported with Levophed drip at 10mcg/min, current bp 115/57 ST 111/min on the monitor, afebrile. fio2 up to 100% at this time. 02 sat >95%.Pt was just dialyzed today and remained anuric. Rectal tube to gravity with moderate amt of liquid brownish stool. all IVF been infusing to RT femoral jia cath pig tail; site with drsg dry and intact. Will continue to monitor.
--- NOTE | 2019-12-24 19:37 | NUR ---
RESPIRATORY NOTE: Received pt on AC 20, 500VT, 100%, PEEP +3. Pt intubtaed w/ ETT 8.0 @ 24cm lipline, secured by anchorfast. Pt sedated. B/S louise. rhonchi, sxn minimal amounts of thick/thin, brown secretions w/ occasional blood clots. Vent plugged into red outlet, ambubag at bedside. Pt in no apparent distress at this time. Will continue to monitor pt.
[2019-12-24] MEDS: Dyna-Hex 2% Top Sol 2oz TOPIC SCH (20:14)
--- NOTE | 2019-12-24 20:34 | Infectious Diseases Prog Note ---
Assessment/Plan Assessment/Plan ASSESSMENT AND PLAN: 1. covid-19 virus infection with pna, rule out bacterial pna, sepsis/shock, fevers, leukocytosis vent, respiratory failure, ? 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 negative - meropenem, vancomycin and micafungin, discontinue po vancomycin - s/p hydroxychloroquine - monitor chest x-ray and labs - f/u c.diff., reculture patient - s/p tocilizumab - critical - getting HD - poor prognosis - communicated with Dr. Noriega 2. Hypertension. 3. No known allergies. 4. Social history negative. 5. Family history noncontributory. 6. MAR was noted. 7. Case discussed with RN. 8. Continue treatment per primary consultants. Subjective Constitutional: Reports: fever, fatigue, other - on vent and pressors HEENT: Reports: congestion Respiratory: Reports: shortness of breath Cardiovascular: Reports: other - + pressors Gastrointestinal/Abdominal: Denies: nausea, vomiting, diarrhea Genitourinary: Reports: other - + barnes Neurologic: Reports: weakness, other - poorly responsive Psychiatric: Reports: other - NA Skin: Denies: rash Hematologic: Denies: bleeding Musculoskeletal: Reports: pain - NA Allergies: Coded Allergies: No Known Allergies (Unverified , 11/29/19) Objective Vital Signs Last 24 Hour Vital Signs Date Time Temp Pulse Resp B/P (MAP) Pulse Ox O2 Delivery O2 Flow Rate FiO2 12/24/19 19:35 113 20 100 12/24/19 19:30 110 20 115/57 (76) 100 12/24/19 19:15 113 23 119/63 (81) 100 12/24/19 19:00 30 119/53 Mechanical Ventilator 100 12/24/19 19:00 30 119/63 Mechanical Ventilator 100 12/24/19 19:00 119/63 12/24/19 19:00 111 19 109/68 (82) 100 12/24/19 18:30 45 132/67 Mechanical Ventilator 100 12/24/19 18:30 117 34 129/70 (89) 100 12/24/19 18:00 118 36 106/64 (78) 100 12/24/19 18:00 30 106/64 Mechanical Ventilator 70 12/24/19 18:00 35 106/64 Mechanical Ventilator 70 12/24/19 18:00 106/64 12/24/19 17:42 100 12/24/19 17:30 116 34 103/61 (75) 94 12/24/19 17:15 35 117/63 Mechanical Ventilator 70 12/24/19 17:05 30 117/63 Mechanical Ventilator 70 12/24/19 17:00 118 34 113/61 (78) 94 12/24/19 17:00 30 113/61 Mechanical Ventilator 70 12/24/19 17:00 108/71 12/24/19 17:00 35 117/63 Mechanical Ventilator 70 12/24/19 16:56 30 108/61 Mechanical Ventilator 70 12/24/19 16:56 108/61 12/24/19 16:51 88/60 12/24/19 16:30 116 34 89/51 (64) 93 12/24/19 16:00 111 12/24/19 16:00 109 36 132/60 (84) 96 12/24/19 16:00 32 132/60 Mechanical Ventilator 70 12/24/19 16:00 132/60 12/24/19 16:00 32 132/60 Mechanical Ventilator 70 12/24/19 16:00 70 12/24/19 16:00 Mechanical Ventilator 12/24/19 15:30 103 25 123/58 (79) 97 12/24/19 15:15 98 14 128/64 (85) 98 12/24/19 15:00 100 23 130/65 (86) 100 12/24/19 15:00 30 128/64 Mechanical Ventilator 70 12/24/19 15:00 128/64 12/24/19 15:00 30 128/64 Mechanical Ventilator 70 12/24/19 14:59 97 34 70 12/24/19 14:45 98 34 120/62 (81) 99 12/24/19 14:30 97 33 126/60 (82) 99 12/24/19 14:15 94 34 123/61 (81) 100 12/24/19 14:00 94 29 117/59 (78) 100 12/24/19 14:00 30 123/61 Mechanical Ventilator 70 12/24/19 14:00 123/61 12/24/19 14:00 30 123/61 Mechanical Ventilator 70 12/24/19 13:45 94 32 122/60 (80) 99 12/24/19 13:30 94 30 119/62 (81) 98 12/24/19 13:15 91 29 119/61 (80) 99 12/24/19 13:00 92 34 124/64 (84) 100 12/24/19 13:00 30 119/61 Mechanical Ventilator 70 12/24/19 13:00 119/61 12/24/19 13:00 29 119/61 Mechanical Ventilator 70 12/24/19 12:30 93 31 125/66 (85) 100 12/24/19 12:00 92 12/24/19 12:00 98.3 12/24/19 12:00 91 30 115/64 (81) 100 12/24/19 12:00 30 117/61 Mechanical Ventilator 70 12/24/19 12:00 115/64 12/24/19 12:00 29 115/64 Mechanical Ventilator 70 12/24/19 12:00 70 12/24/19 12:00 Mechanical Ventilator 12/24/19 11:30 90 31 121/60 (80) 100 12/24/19 11:00 91 29 119/63 (81) 100 12/24/19 11:00 30 116/63 Mechanical Ventilator 70 12/24/19 11:00 117/61 12/24/19 11:00 30 117/61 Mechanical Ventilator 70 12/24/19 11:00 89 20 119/61 (80) 100 12/24/19 10:45 84 19 120/60 (80) 99 12/24/19 10:41 87 33 70 12/24/19 10:30 88 29 114/64 (81) 100 12/24/19 10:15 90 27 121/62 (81) 99 12/24/19 10:00 30 121/62 Mechanical Ventilator 70 12/24/19 10:00 104/60 12/24/19 10:00 29 104/60 Mechanical Ventilator 70 12/24/19 10:00 88 28 104/60 (75) 98 12/24/19 09:45 124/64 12/24/19 09:45 89 28 124/64 (84) 100 12/24/19 09:30 91 32 126/63 (84) 99 12/24/19 09:15 92 21 140/67 (91) 100 12/24/19 09:00 30 140/67 Mechanical Ventilator 70 12/24/19 09:00 108/58 12/24/19 09:00 30 121/62 Mechanical Ventilator 70 12/24/19 09:00 93 31 108/58 (75) 100 12/24/19 08:45 130/64 12/24/19 08:45 94 20 130/64 (86) 100 12/24/19 08:30 87 27 124/60 (81) 100 12/24/19 08:15 98.6 87 28 125/63 (83) 100 12/24/19 08:00 88 12/24/19 08:00 70 12/24/19 08:00 30 125/63 Mechanical Ventilator 70 12/24/19 08:00 127/64 12/24/19 08:00 30 125/63 Mechanical Ventilator 70 12/24/19 08:00 88 28 127/64 (85) 100 12/24/19 08:00 Mechanical Ventilator 12/24/19 07:45 87 25 127/65 (85) 100 12/24/19 07:30 91 30 119/62 (81) 99 12/24/19 07:00 30 125/63 Non-Rebreather 70 12/24/19 07:00 119/62 12/24/19 07:00 30 127/65 Mechanical Ventilator 70 12/24/19 07:00 91 24 129/63 (85) 100 12/24/19 06:58 89 25 70 12/24/19 06:30 89 24 122/68 (86) 100 12/24/19 06:00 94 30 120/68 (85) 100 12/24/19 06:00 22 Mechanical Ventilator 80 12/24/19 06:00 122/66 12/24/19 06:00 22 80 12/24/19 05:30 96 28 125/61 (82) 100 12/24/19 05:00 95 28 122/66 (84) 100 12/24/19 05:00 22 Mechanical Ventilator 12/24/19 05:00 115/60 12/24/19 05:00 23 Mechanical Ventilator 80 12/24/19 04:30 95 30 114/66 (82) 100 12/24/19 04:00 90 12/24/19 04:00 Mechanical Ventilator 12/24/19 04:00 22 Mechanical Ventilator 80 12/24/19 04:00 110/63 12/24/19 04:00 24 Mechanical Ventilator 80 12/24/19 04:00 60 12/24/19 04:00 99.0 97 32 109/59 (76) 94 12/24/19 03:33 99 28 70 12/24/19 03:30 99 20 122/62 (82) 98 12/24/19 03:20 130/70 12/24/19 03:00 23 Mechanical Ventilator 80 12/24/19 03:00 23 Mechanical Ventilator 80 12/24/19 03:00 101 24 85/48 (60) 96 12/24/19 02:30 98 22 109/61 (77) 98 12/24/19 02:00 24 Mechanical Ventilator 80 12/24/19 02:00 101/60 12/24/19 02:00 22 Mechanical Ventilator 80 12/24/19 02:00 98 23 107/56 (73) 98 12/24/19 01:45 21 Mechanical Ventilator 60 12/24/19 01:30 97 27 102/57 (72) 97 12/24/19 01:00 102 31 105/58 (74) 92 12/24/19 01:00 23 Mechanical Ventilator 80 12/24/19 01:00 104/58 12/24/19 01:00 22 Mechanical Ventilator 80 12/24/19 00:30 101 35 112/58 (76) 93 12/24/19 00:15 96 32 95/45 (62) 97 12/24/19 00:00 95 12/24/19 00:00 Mechanical Ventilator 12/24/19 00:00 60 12/24/19 00:00 98.8 96 31 114/60 (78) 100 12/24/19 00:00 23 Mechanical Ventilator 80 12/24/19 00:00 95/45 12/24/19 00:00 23 Mechanical Ventilator 80 12/23/19 23:53 102 33 60 12/23/19 23:30 96 32 105/61 (76) 100 12/23/19 23:00 23 Mechanical Ventilator 80 12/23/19 23:00 109/66 12/23/19 23:00 22 Mechanical Ventilator 80 12/23/19 23:00 93 27 108/60 (76) 100 12/23/19 22:30 97 26 79/45 (56) 100 12/23/19 22:00 98 28 137/71 (93) 100 12/23/19 22:00 22 Mechanical Ventilator 80 12/23/19 22:00 107/59 12/23/19 22:00 24 Mechanical Ventilator 80 12/23/19 21:33 21 Mechanical Ventilator 70 12/23/19 21:30 95 27 105/61 (76) 100 12/23/19 21:00 99 29 110/57 (74) 100 12/23/19 21:00 25 80 12/23/19 21:00 117/65 12/23/19 21:00 24 80 12/23/19 20:45 99 23 111/62 (78) 100 12/23/19 20:30 100 22 108/67 (81) 100 Height (Feet): 5 Height (Inches): 6.00 Weight (Pounds): 163 General Appearance: other - on vent and pressors HEENT: normocephalic, atraumatic, no JVD Respiratory/Chest: crackles/rales, rhonchi - bilaterally Cardiovascular: normal rate, regular rhythm, no gallop/murmur Abdomen: normal bowel sounds, soft, non tender, no organomegaly, non distended Genitourinary: other - + barnes, hd pt Extremities: no cyanosis Skin: no rash Neurologic/Psychiatric: motor weakness, other - lethargic and poolry responsive Lymphatic: no neck adenopathy Musculoskeletal: no effusion Objective Chest x-ray - 12/02/19 - Procedure: XRAY Chest 1v EXAM: XR Chest, 1 View CLINICAL HISTORY: ABN CHST TECHNIQUE: Frontal view of the chest. COMPARISON: Chest x-ray dated 11/29/19 FINDINGS: Lungs: Persistent diffuse peripheral groundglass opacities, not significantly changed, concerning for pneumonia. Pleural space: Unremarkable. The costophrenic angles are sharp. No visible pneumothorax. Heart: Unremarkable. No cardiomegaly. Mediastinum: Unremarkable. Bones/joints: Mild degenerative changes throughout the visualized spine. Tubes, lines and devices: Telemetry leads overlie the thorax. IMPRESSION: No significant change compared to the prior chest x-ray. Persistent diffuse peripheral groundglass opacities, concerning for pneumonia. Chest x-ray - 12/07/19 - COMPARISON: Chest x-ray 12/06/19 1317 FINDINGS: Lungs: Diffuse bilateral airspace opacities, improved in the left lung and slightly worsened in the right lung. Pleural space: Unremarkable. No pneumothorax. Heart: Mild cardiomegaly. Mediastinum: Unremarkable. Bones/joints: Mild degenerative changes of spine. Tubes, lines and devices: Endotracheal tube and NG tube are stable. IMPRESSION: Diffuse bilateral airspace opacities, improved in the left lung and slightly worsened in the right lung. Chest x-ray - 12/10/19 - Procedure: XRAY Chest 1v Indication: Shortness of breath Technique: One view of the chest Comparison: 12/07/2019 Findings: There is worsening airspace opacity in the bilateral mid and lower lungs. The left hemidiaphragm is obscured, could indicate some pleural fluid. Stable satisfactory positions of endotracheal and nasogastric tubes. Impression: Worsening infiltrates, likely pneumonia, bilaterally Chest x-ray - 12/16/19 - Procedure: XRAY Chest 1v Indication: Shortness of breath Technique: One view of the chest Comparison: 12/15/2019 Findings: Diffuse and extensive bilateral hazy infiltrates are unchanged. Stable position of endotracheal and nasogastric tubes. Normal heart size. Findings are unchanged Impression: Unchanged, over one day, findings as above. Chest x-ray - 12/21/19 - IMPRESSION: 1. Endotracheal tube terminates in the region of the mid thoracic trachea. Enteric tube courses past the diaphragm and out of the field-of- view. 2. Similar extensive patchy opacities throughout the lungs. Microbiology Date/Time Source Procedure Growth Status 12/22/19 16:15 Blood Blood Culture - Preliminary NO GROWTH AFTER 24 HOURS Resulted 12/22/19 16:00 Blood Blood Culture - Preliminary NO GROWTH AFTER 24 HOURS Resulted 12/23/19 04:00 Stool Clostridium difficile Toxin Assay - Final Complete 12/23/19 04:00 Indwelling Cath Urine Culture - Preliminary NO GROWTH AFTER 24 HOURS Resulted Laboratory Tests Test 12/24/19 05:07 12/24/19 12:19 White Blood Count 29.8 K/UL (4.8-10.8) *H Red Blood Count 2.63 M/UL (4.70-6.10) L Hemoglobin 8.0 G/DL (14.2-18.0) L Hematocrit 24.3 % (42.0-52.0) L Mean Corpuscular Volume 93 FL (80-99) Mean Corpuscular Hemoglobin 30.4 PG (27.0-31.0) Mean Corpuscular Hemoglobin Concent 32.9 G/DL (32.0-36.0) Red Cell Distribution Width 15.4 % (11.6-14.8) H Platelet Count 275 K/UL (150-450) Mean Platelet Volume 6.9 FL (6.5-10.1) Neutrophils (%) (Auto) % (45.0-75.0) Lymphocytes (%) (Auto) % (20.0-45.0) Monocytes (%) (Auto) % (1.0-10.0) Eosinophils (%) (Auto) % (0.0-3.0) Basophils (%) (Auto) % (0.0-2.0) Differential Total Cells Counted 100 Neutrophils % (Manual) 89 % (45-75) H Lymphocytes % (Manual) 3 % (20-45) L Monocytes % (Manual) 5 % (1-10) Eosinophils % (Manual) 1 % (0-3) Basophils % (Manual) 0 % (0-2) Band Neutrophils 2 % (0-8) Platelet Estimate Adequate Platelet Morphology Normal Anisocytosis 1+ Sodium Level 135 MMOL/L (136-145) L Potassium Level 3.6 MMOL/L (3.5-5.1) Chloride Level 95 MMOL/L (98-107) L Carbon Dioxide Level 34 MMOL/L (21-32) H Anion Gap 6 mmol/L (5-15) Blood Urea Nitrogen 46 mg/dL (7-18) H Creatinine 3.7 MG/DL (0.55-1.30) H Estimat Glomerular Filtration Rate 17.0 mL/min (>60) Glucose Level 122 MG/DL (74-106) H Calcium Level 8.5 MG/DL (8.5-10.1) Total Bilirubin 0.5 MG/DL (0.2-1.0) Aspartate Amino Transf (AST/SGOT) 50 U/L (15-37) H Alanine Aminotransferase (ALT/SGPT) 44 U/L (12-78) Alkaline Phosphatase 226 U/L (46-116) H Total Protein 7.0 G/DL (6.4-8.2) Albumin 2.2 G/DL (3.4-5.0) L Globulin 4.8 g/dL Albumin/Globulin Ratio 0.5 (1.0-2.7) L Random Vancomycin Level 13.7 ug/mL Stool Occult Blood Pending Current Medications Medications (Trade) Dose Ordered Sig/Vicki Route PRN Reason Start Time Stop Time Status Last Admin Dose Admin Acetaminophen (Tylenol) 650 mg Q4H PRN NG Temp >100.5 12/06/19 14:15 01/05/20 14:14 12/23/19 00:31 Acetaminophen (Tylenol) 650 mg Q4H PRN RECTAL Mild Pain (Pain Scale 1-3) 12/04/19 11:45 01/03/20 11:44 12/06/19 19:17 Chlorhexidine Gluconate (Arely-Hex 2%) 1 applic DAILY@2000 TOPIC 12/05/19 20:00 03/04/20 19:59 12/24/19 20:14 Dextrose (Dextrose 50%) 25 ml Q30M PRN IV Hypoglycemia 11/29/19 14:15 02/27/20 14:14 Dextrose (Dextrose 50%) 50 ml Q30M PRN IV Hypoglycemia 11/29/19 14:15 02/27/20 14:14 Fentanyl Citrate 2500 mcg/Sodium Chloride 250 ml @ 0 mls/hr Q24H IV 12/24/19 16:30 12/31/19 16:29 12/24/19 16:56 Fluconazole/ Sodium Chloride 100 ml @ 100 mls/hr Q24H IV 12/22/19 22:00 12/29/19 21:59 12/23/19 21:35 Folic Acid (Folate) 1 mg DAILY NG 12/18/19 09:00 01/17/20 08:59 12/24/19 08:50 Hydralazine HCl (Apresoline) 10 mg Q4H PRN IV For High Blood Pressure 11/29/19 15:15 02/27/20 15:14 Loperamide HCl (Imodium) 2 mg Q6H PRN NG Diarrhea 12/12/19 12:45 01/11/20 12:44 Meropenem 500 mg/ Sodium Chloride 50 ml @ 100 mls/hr Q24H IVPB 12/20/19 21:30 12/25/19 21:29 12/23/19 21:34 Midazolam HCl 100 ml @ 0 mls/hr Q24H PRN IV Restlessness 12/24/19 16:30 12/31/19 16:29 12/24/19 17:15 Midodrine (Pro-Amatine) 10 mg THREE TIMES A DAY ORAL 12/12/19 13:00 03/11/20 12:59 12/24/19 17:14 Norepinephrine Bitartrate 8 mg/ Dextrose 250 ml @ 0 mls/hr Q24H IV 12/18/19 09:00 01/17/20 08:59 12/24/19 16:56 Ondansetron HCl (Zofran) 4 mg Q6H PRN IVP Nausea & Vomiting 11/29/19 14:15 12/29/19 14:14 Pantoprazole (Protonix) 40 mg DAILY IVP 11/30/19 12:15 12/30/19 12:14 12/24/19 08:50 Sevelamer Carbonate (Renvela) 800 mg THREE TIMES A DAY NG 12/22/19 13:00 03/21/20 12:59 12/24/19 17:14 Vancomycin HCl (Firvanq) 125 mg FOUR TIMES A DAY ORAL 12/22/19 21:00 12/29/19 20:59 12/24/19 17:14 Vancomycin HCl (Vanco rx to dose) 1 ea DAILY PRN MISC Per rx protocol 12/08/19 19:30 01/07/20 19:29 Vitamin B Complex/ Vit C/Folic Acid (Nephrovite) 1 tab DAILY NG 12/16/19 09:00 01/15/20 08:59 12/24/19 08:49 Ilsa Rodriguez MD December 24, 2019 20:34
--- NOTE | 2019-12-24 21:30 | NUR ---
NURSE NOTES: Suctioned tn blood tinged secretions minimal in amt. oral care done.
--- NOTE | 2019-12-24 23:00 | NUR ---
NURSE NOTES: Resting comfortably at this time. afebrile.
[2019-12-25] VITALS (73 sets, daily range): BP systolic 92–136; BP diastolic 50–75
--- NOTE | 2019-12-25 01:00 | NUR ---
NURSE NOTES: Turned q 2hrs prn with good skin care done.
--- NOTE | 2019-12-25 03:00 | NUR ---
NURSE NOTES: Complete bath with bed changed done.
--- NOTE | 2019-12-25 04:00 | NUR ---
NURSE NOTES: Pt RR at 40s appeared agitated Fentanyl drip increased to 150mcg/hr. Bp 115/60, decreased Levophed drip at 6mcg/min.
[2019-12-25 05:26] LABS: HEMATOCRIT 25.2 % (42.0-52.0); HEMOGLOBIN 8.2 G/DL (14.2-18.0); MEAN CORPUSCULAR VOLUME 93 FL (80-99); PLATELET COUNT 253 K/UL (150-450); RED BLOOD COUNT 2.71 M/UL (4.70-6.10); RED CELL DISTRIBUTION WIDTH 15.6 % (11.6-14.8)
[2019-12-25 05:42] LABS: WHITE BLOOD COUNT 34.2 K/UL (4.8-10.8)
[2019-12-25 05:55] LABS: ALANINE AMINOTRANSFERASE 43 U/L (12-78); ALBUMIN 2.2 G/DL (3.4-5.0); ALBUMIN/GLOBULIN RATIO 0.4 (1.0-2.7); ALKALINE PHOSPHATASE 233 U/L (46-116); ANION GAP 7 mmol/L (5-15); ASPARTATE AMINO TRANSFERASE 53 U/L (15-37); BILIRUBIN,TOTAL 0.5 MG/DL (0.2-1.0); BLOOD UREA NITROGEN 32 mg/dL (7-18); CALCIUM 8.3 MG/DL (8.5-10.1); CARBON DIOXIDE 35 MMOL/L (21-32); CHLORIDE 95 MMOL/L (98-107); CREATININE 2.8 MG/DL (0.55-1.30); POTASSIUM 3.7 MMOL/L (3.5-5.1); SODIUM 137 MMOL/L (136-145)
--- NOTE | 2019-12-25 06:00 | NUR ---
NURSE NOTES: Remained sedated to attain RASS score-3
[2019-12-25] MEDS ORDERED: Vancomycin 500mg/D5W 100ml IVPB ONE ×2 (07:00)
--- NOTE | 2019-12-25 07:29 | NUR ---
HAND-OFF: Report given to Monserrat LACKEY.
--- NOTE | 2019-12-25 07:30 | NUR ---
NURSE NOTES: Received patient from DARYA Shaw. Patient blood pressure 110/58 on Levophed at 6mcg/min. Patient showing sinus tachycardia on the surveillance system monitor at this time with rate of 103 at this time. Will continue to monitor and titrate per protocol. Patient sedated with RASS score -3 on fentanyl at 150mcg/hr and versed at 5mL/hr. Will titrate as tolerated to maintain RASS of -3. Patient orally intubated with size 8 ET tube with 24cm at the lip line. Ventilator setting AC 20, tidal volume 500, FiO2 100%, and PEEP 3. Patient tolerating setting with no sign of acute distress. Patient has nasal gastric tube in left Nares that is patent, auscultated, verified, and running Nepro at 35mL/hr at this time with no residual. Patient has rectal tube for diarrhea with dark green stool noted in tube. Patient has barnes for urine retention that is asymptomatic and draining tiny amount of dark marge urine. Patient oliguric. Patient has right femoral jia catheter with pigtail that is patent, asymptomatic, and pigtail is running Levophed, versed, and propofol. Patient WBC is elevated this morning. Will notify Dr Rodriguez. Patient bed in low position with bed alarm on and call light in reach. Patient repositioned and oral care performed. Will continue to monitor.
--- NOTE | 2019-12-25 07:44 | NUR ---
NURSE NOTES: Left telephone message for Dr Rodriguez regarding elevated WBC of 34.2 this morning. Awaiting call back. Addendum: 12/25/19 at 0754 by Monserrat Murphy RN Received call back fro Dr Rodriguez. Notified him regarding WBC of 34.2 trending up. NO new orders received.
[2019-12-25] MEDS: Midodrine 10mg tab ORAL SCH ×3 (08:34→17:46)
[2019-12-25] MEDS: Nephrovite tab (Rena-Vite) NG SCH (08:34)
[2019-12-25] MEDS: Renvela 800mg Pkt NG SCH ×3 (08:34→17:46)
[2019-12-25] MEDS: Pantoprazole Inj IVP SCH (08:34)
--- NOTE | 2019-12-25 09:05 | Urology Progress Note ---
Assessment/Plan Status: unchanged Assessment/Plan: 1. Phimosis. 2. Retention. 3. Hematuria. 4. Pyuria. 5. Proteinuria. 6. Acute kidney injury. 7. Meatal stenosis. monitor clinically maintain barnes, placed 12/04 hand irrigate PRN monitor urine output and renal fxn consider renal imaging abx as ordered HD per nephrology f/u on blood cx Subjective Allergies: Coded Allergies: No Known Allergies (Unverified , 11/29/19) Subjective remains on vent, still with minimal urine output, HD Objective Last 24 Hour Vital Signs Date Time Temp Pulse Resp B/P (MAP) Pulse Ox O2 Delivery O2 Flow Rate FiO2 12/25/19 07:02 102 23 100 12/25/19 07:00 104 25 103/54 (70) 100 12/25/19 06:30 103 26 109/57 (74) 100 12/25/19 06:27 26 112/58 Mechanical Ventilator 100 12/25/19 06:27 26 112/58 Mechanical Ventilator 100 12/25/19 06:27 112/58 12/25/19 06:00 101 25 107/59 (75) 100 12/25/19 05:30 102 27 111/60 (77) 100 12/25/19 05:00 27 104/60 Mechanical Ventilator 100 12/25/19 05:00 27 104/60 Mechanical Ventilator 12/25/19 05:00 104/60 12/25/19 05:00 103 27 104/59 (74) 100 12/25/19 04:30 106 30 102/58 (73) 100 12/25/19 04:00 103 12/25/19 04:00 Mechanical Ventilator 12/25/19 04:00 99.0 109 33 115/62 (79) 100 12/25/19 04:00 30 113/60 Mechanical Ventilator 100 12/25/19 04:00 30 113/60 Mechanical Ventilator 100 12/25/19 04:00 113/60 12/25/19 04:00 100 12/25/19 03:41 106 33 100 12/25/19 03:30 108 33 122/71 (88) 100 12/25/19 03:00 109 31 126/71 (89) 100 12/25/19 03:00 33 125/70 Mechanical Ventilator 100 12/25/19 03:00 33 125/70 Mechanical Ventilator 100 12/25/19 03:00 125/70 12/25/19 02:30 109 33 127/71 (89) 100 12/25/19 02:00 107 33 129/71 (90) 100 12/25/19 02:00 33 131/72 Mechanical Ventilator 100 12/25/19 01:30 105 31 128/75 (92) 100 12/25/19 01:00 103 33 123/72 (89) 100 12/25/19 01:00 31 132/73 Mechanical Ventilator 100 12/25/19 01:00 31 132/73 Mechanical Ventilator 40 12/25/19 01:00 132/73 12/25/19 00:30 103 32 124/69 (87) 100 12/25/19 00:00 103 12/25/19 00:00 100 12/25/19 00:00 32 121/68 Mechanical Ventilator 100 12/25/19 00:00 32 121/68 Mechanical Ventilator 100 12/25/19 00:00 121/68 12/25/19 00:00 Mechanical Ventilator 12/25/19 00:00 99.0 104 32 119/68 (85) 100 12/24/19 23:30 106 29 112/59 (76) 100 12/24/19 23:03 107 24 100 12/24/19 23:00 28 115/65 Mechanical Ventilator 100 12/24/19 23:00 28 115/65 Mechanical Ventilator 100 12/24/19 23:00 115/65 12/24/19 23:00 106 25 111/53 (72) 100 12/24/19 22:30 105 28 136/80 (98) 100 12/24/19 22:00 25 107/61 Mechanical Ventilator 100 12/24/19 22:00 25 107/61 Mechanical Ventilator 100 12/24/19 22:00 107/61 12/24/19 22:00 107 31 106/60 (75) 100 12/24/19 21:30 110 29 108/60 (76) 100 12/24/19 21:15 110 26 112/61 (78) 100 12/24/19 21:00 29 112/61 Mechanical Ventilator 100 12/24/19 21:00 29 112/61 Mechanical Ventilator 100 12/24/19 21:00 112/61 12/24/19 21:00 109 26 116/63 (80) 100 12/24/19 20:45 110 24 113/61 (78) 100 12/24/19 20:30 109 23 114/58 (76) 100 12/24/19 20:00 Mechanical Ventilator 12/24/19 20:00 109 12/24/19 20:00 24 103/55 Mechanical Ventilator 100 12/24/19 20:00 24 103/55 Mechanical Ventilator 12/24/19 20:00 103/55 12/24/19 20:00 98.4 109 25 112/64 (80) 100 12/24/19 20:00 100 12/24/19 19:35 113 20 100 12/24/19 19:30 110 20 115/57 (76) 100 12/24/19 19:15 113 23 119/63 (81) 100 12/24/19 19:00 30 119/53 Mechanical Ventilator 100 12/24/19 19:00 30 119/63 Mechanical Ventilator 100 12/24/19 19:00 119/63 12/24/19 19:00 111 19 109/68 (82) 100 12/24/19 18:30 45 132/67 Mechanical Ventilator 100 12/24/19 18:30 117 34 129/70 (89) 100 12/24/19 18:00 118 36 106/64 (78) 100 12/24/19 18:00 30 106/64 Mechanical Ventilator 70 12/24/19 18:00 35 106/64 Mechanical Ventilator 70 12/24/19 18:00 106/64 12/24/19 17:42 100 12/24/19 17:30 116 34 103/61 (75) 94 12/24/19 17:15 35 117/63 Mechanical Ventilator 70 12/24/19 17:05 30 117/63 Mechanical Ventilator 70 12/24/19 17:00 118 34 113/61 (78) 94 12/24/19 17:00 30 113/61 Mechanical Ventilator 70 12/24/19 17:00 108/71 12/24/19 17:00 35 117/63 Mechanical Ventilator 70 12/24/19 16:56 30 108/61 Mechanical Ventilator 70 12/24/19 16:56 108/61 12/24/19 16:51 88/60 12/24/19 16:30 116 34 89/51 (64) 93 12/24/19 16:00 111 12/24/19 16:00 109 36 132/60 (84) 96 12/24/19 16:00 32 132/60 Mechanical Ventilator 70 12/24/19 16:00 132/60 12/24/19 16:00 32 132/60 Mechanical Ventilator 70 12/24/19 16:00 70 12/24/19 16:00 Mechanical Ventilator 12/24/19 15:30 103 25 123/58 (79) 97 12/24/19 15:15 98 14 128/64 (85) 98 12/24/19 15:00 100 23 130/65 (86) 100 12/24/19 15:00 30 128/64 Mechanical Ventilator 70 12/24/19 15:00 128/64 12/24/19 15:00 30 128/64 Mechanical Ventilator 70 12/24/19 14:59 97 34 70 12/24/19 14:45 98 34 120/62 (81) 99 12/24/19 14:30 97 33 126/60 (82) 99 12/24/19 14:15 94 34 123/61 (81) 100 12/24/19 14:00 94 29 117/59 (78) 100 12/24/19 14:00 30 123/61 Mechanical Ventilator 70 12/24/19 14:00 123/61 12/24/19 14:00 30 123/61 Mechanical Ventilator 70 12/24/19 13:45 94 32 122/60 (80) 99 12/24/19 13:30 94 30 119/62 (81) 98 12/24/19 13:15 91 29 119/61 (80) 99 12/24/19 13:00 92 34 124/64 (84) 100 12/24/19 13:00 30 119/61 Mechanical Ventilator 70 12/24/19 13:00 119/61 12/24/19 13:00 29 119/61 Mechanical Ventilator 70 12/24/19 12:30 93 31 125/66 (85) 100 12/24/19 12:00 92 12/24/19 12:00 98.3 12/24/19 12:00 91 30 115/64 (81) 100 12/24/19 12:00 30 117/61 Mechanical Ventilator 70 12/24/19 12:00 115/64 12/24/19 12:00 29 115/64 Mechanical Ventilator 70 12/24/19 12:00 70 12/24/19 12:00 Mechanical Ventilator 12/24/19 11:30 90 31 121/60 (80) 100 12/24/19 11:00 91 29 119/63 (81) 100 12/24/19 11:00 30 116/63 Mechanical Ventilator 70 12/24/19 11:00 117/61 12/24/19 11:00 30 117/61 Mechanical Ventilator 70 12/24/19 11:00 89 20 119/61 (80) 100 12/24/19 10:45 84 19 120/60 (80) 99 12/24/19 10:41 87 33 70 12/24/19 10:30 88 29 114/64 (81) 100 12/24/19 10:15 90 27 121/62 (81) 99 12/24/19 10:00 30 121/62 Mechanical Ventilator 70 12/24/19 10:00 104/60 12/24/19 10:00 29 104/60 Mechanical Ventilator 70 12/24/19 10:00 88 28 104/60 (75) 98 12/24/19 09:45 124/64 12/24/19 09:45 89 28 124/64 (84) 100 12/24/19 09:30 91 32 126/63 (84) 99 12/24/19 09:15 92 21 140/67 (91) 100 Intake and Output 12/24/19 12/25/19 19:00 07:00 Intake Total 908.311 ml 891.25 ml Output Total 110 ml 204 ml Balance 798.311 ml 687.25 ml Free Water 110 ml 60 ml IV Total 378.311 ml 446.25 ml Tube Feeding 420 ml 385 ml Output Urine Total 10 ml 4 ml Stool Total 100 ml 200 ml Microbiology Date/Time Source Procedure Growth Status 12/22/19 16:15 Blood Blood Culture - Preliminary NO GROWTH AFTER 48 HOURS Resulted 12/16/19 16:00 Sputum Gram Stain - Final Complete 12/16/19 16:00 Sputum Sputum Culture - Final NORMAL UPPER RESPIRATORY ALISIA PRESENT Complete 12/23/19 04:00 Stool Clostridium difficile Toxin Assay - Final Complete 12/23/19 04:00 Indwelling Cath Urine Culture - Final NO GROWTH AFTER 48 HOURS Complete Current Medications Medications (Trade) Dose Ordered Sig/Vicki Route PRN Reason Start Time Stop Time Status Last Admin Dose Admin Acetaminophen (Tylenol) 650 mg Q4H PRN NG Temp >100.5 12/06/19 14:15 01/05/20 14:14 12/23/19 00:31 Acetaminophen (Tylenol) 650 mg Q4H PRN RECTAL Mild Pain (Pain Scale 1-3) 12/04/19 11:45 01/03/20 11:44 12/06/19 19:17 Chlorhexidine Gluconate (Arely-Hex 2%) 1 applic DAILY@2000 TOPIC 12/05/19 20:00 03/04/20 19:59 12/24/19 20:14 Dextrose (Dextrose 50%) 25 ml Q30M PRN IV Hypoglycemia 11/29/19 14:15 02/27/20 14:14 Dextrose (Dextrose 50%) 50 ml Q30M PRN IV Hypoglycemia 11/29/19 14:15 02/27/20 14:14 Fentanyl Citrate 2500 mcg/Sodium Chloride 250 ml @ 0 mls/hr Q24H IV 12/24/19 16:30 12/31/19 16:29 12/24/19 16:56 Folic Acid (Folate) 1 mg DAILY NG 12/18/19 09:00 01/17/20 08:59 12/25/19 08:34 Hydralazine HCl (Apresoline) 10 mg Q4H PRN IV For High Blood Pressure 11/29/19 15:15 02/27/20 15:14 Loperamide HCl (Imodium) 2 mg Q6H PRN NG Diarrhea 12/12/19 12:45 01/11/20 12:44 Meropenem 500 mg/ Sodium Chloride 50 ml @ 100 mls/hr Q24H IVPB 12/24/19 21:30 12/29/19 21:29 12/24/19 21:46 Micafungin Sodium 100 mg/Sodium Chloride 100 ml @ 100 mls/hr Q24H IVPB 12/24/19 22:00 12/31/19 21:59 12/24/19 21:45 Midazolam HCl 100 ml @ 0 mls/hr Q24H PRN IV Restlessness 12/24/19 16:30 12/31/19 16:29 12/24/19 17:15 Midodrine (Pro-Amatine) 10 mg THREE TIMES A DAY ORAL 12/12/19 13:00 03/11/20 12:59 12/25/19 08:34 Norepinephrine Bitartrate 8 mg/ Dextrose 250 ml @ 0 mls/hr Q24H IV 12/18/19 09:00 01/17/20 08:59 12/25/19 06:27 Ondansetron HCl (Zofran) 4 mg Q6H PRN IVP Nausea & Vomiting 11/29/19 14:15 12/29/19 14:14 Pantoprazole (Protonix) 40 mg DAILY IVP 11/30/19 12:15 12/30/19 12:14 12/25/19 08:34 Sevelamer Carbonate (Renvela) 800 mg THREE TIMES A DAY NG 12/22/19 13:00 03/21/20 12:59 12/25/19 08:34 Vancomycin HCl (Vanco rx to dose) 1 ea DAILY PRN MISC Per rx protocol 12/08/19 19:30 01/07/20 19:29 Vitamin B Complex/ Vit C/Folic Acid (Nephrovite) 1 tab DAILY NG 12/16/19 09:00 01/15/20 08:59 12/25/19 08:34 Laboratory Tests 12/24/19 12:19: Stool Occult Blood [Pending] 12/24/19 22:50: Random Vancomycin Level 16.6 12/25/19 04:10: White Blood Count 34.2*H, Red Blood Count 2.71L, Hemoglobin 8.2L, Hematocrit 25.2L, Mean Corpuscular Volume 93, Mean Corpuscular Hemoglobin 30.1, Mean Corpuscular Hemoglobin Concent 32.4, Red Cell Distribution Width 15.6H, Platelet Count 253, Mean Platelet Volume 7.0, Neutrophils (%) (Auto) , Lymphocytes (%) (Auto) , Monocytes (%) (Auto) , Eosinophils (%) (Auto) , Basophils (%) (Auto) , Neutrophils % (Manual) [Pending], Lymphocytes % (Manual) [Pending], Platelet Estimate [Pending], Platelet Morphology [Pending], Sodium Level 137, Potassium Level 3.7, Chloride Level 95L, Carbon Dioxide Level 35H, Anion Gap 7, Blood Urea Nitrogen 32H, Creatinine 2.8H, Estimat Glomerular Filtration Rate 23.4, Glucose Level 102, Calcium Level 8.3L, Total Bilirubin 0.5 , Aspartate Amino Transf (AST/SGOT) 53H, Alanine Aminotransferase (ALT/SGPT) 43 , Alkaline Phosphatase 233H, Total Protein 7.4, Albumin 2.2L, Globulin 5.2, Albumin/Globulin Ratio 0.4L Height (Feet): 5 Height (Inches): 6.00 Weight (Pounds): 160 Objective stable no bleeding at prepuce barnes indwelling, marge urine Kai Berger MD December 25, 2019 09:05
--- NOTE | 2019-12-25 09:11 | NUR ---
RADIOLOGY DEPT, CHEST X-RAY DONE.-P.DYE
--- NOTE | 2019-12-25 09:37 | General Progress Note ---
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 - Interstitial emphysema SNOMED: 59150286 (7) COVID-19 ICD Codes: U07.1 - COVID-19 SNOMED: 175384273 (8) Hypotension ICD Codes: I95.9 - Hypotension, unspecified SNOMED: 23643735 Status: unchanged Assessment/Plan: NGTF rectal tube in place elevated LFTS most likely due to shock liver>>> improving repeat labs in am hepatitis panel>>>Neg fu nephrology recent labs and notes reviewed D/W the nurse Subjective ROS Limited/Unobtainable: No Allergies: Coded Allergies: No Known Allergies (Unverified , 11/29/19) Objective Last 24 Hour Vital Signs Date Time Temp Pulse Resp B/P (MAP) Pulse Ox O2 Delivery O2 Flow Rate FiO2 12/25/19 07:02 102 23 100 12/25/19 07:00 104 25 103/54 (70) 100 12/25/19 06:30 103 26 109/57 (74) 100 12/25/19 06:27 26 112/58 Mechanical Ventilator 100 12/25/19 06:27 26 112/58 Mechanical Ventilator 100 12/25/19 06:27 112/58 12/25/19 06:00 101 25 107/59 (75) 100 12/25/19 05:30 102 27 111/60 (77) 100 12/25/19 05:00 27 104/60 Mechanical Ventilator 100 12/25/19 05:00 27 104/60 Mechanical Ventilator 12/25/19 05:00 104/60 12/25/19 05:00 103 27 104/59 (74) 100 12/25/19 04:30 106 30 102/58 (73) 100 12/25/19 04:00 103 12/25/19 04:00 Mechanical Ventilator 12/25/19 04:00 99.0 109 33 115/62 (79) 100 12/25/19 04:00 30 113/60 Mechanical Ventilator 100 12/25/19 04:00 30 113/60 Mechanical Ventilator 100 12/25/19 04:00 113/60 12/25/19 04:00 100 12/25/19 03:41 106 33 100 12/25/19 03:30 108 33 122/71 (88) 100 12/25/19 03:00 109 31 126/71 (89) 100 12/25/19 03:00 33 125/70 Mechanical Ventilator 100 12/25/19 03:00 33 125/70 Mechanical Ventilator 100 12/25/19 03:00 125/70 12/25/19 02:30 109 33 127/71 (89) 100 12/25/19 02:00 107 33 129/71 (90) 100 12/25/19 02:00 33 131/72 Mechanical Ventilator 100 12/25/19 01:30 105 31 128/75 (92) 100 12/25/19 01:00 103 33 123/72 (89) 100 12/25/19 01:00 31 132/73 Mechanical Ventilator 100 12/25/19 01:00 31 132/73 Mechanical Ventilator 40 12/25/19 01:00 132/73 12/25/19 00:30 103 32 124/69 (87) 100 12/25/19 00:00 103 12/25/19 00:00 100 12/25/19 00:00 32 121/68 Mechanical Ventilator 100 12/25/19 00:00 32 121/68 Mechanical Ventilator 100 12/25/19 00:00 121/68 12/25/19 00:00 Mechanical Ventilator 12/25/19 00:00 99.0 104 32 119/68 (85) 100 12/24/19 23:30 106 29 112/59 (76) 100 12/24/19 23:03 107 24 100 12/24/19 23:00 28 115/65 Mechanical Ventilator 100 12/24/19 23:00 28 115/65 Mechanical Ventilator 100 12/24/19 23:00 115/65 12/24/19 23:00 106 25 111/53 (72) 100 12/24/19 22:30 105 28 136/80 (98) 100 12/24/19 22:00 25 107/61 Mechanical Ventilator 100 12/24/19 22:00 25 107/61 Mechanical Ventilator 100 12/24/19 22:00 107/61 12/24/19 22:00 107 31 106/60 (75) 100 12/24/19 21:30 110 29 108/60 (76) 100 12/24/19 21:15 110 26 112/61 (78) 100 12/24/19 21:00 29 112/61 Mechanical Ventilator 100 12/24/19 21:00 29 112/61 Mechanical Ventilator 100 12/24/19 21:00 112/61 12/24/19 21:00 109 26 116/63 (80) 100 12/24/19 20:45 110 24 113/61 (78) 100 12/24/19 20:30 109 23 114/58 (76) 100 12/24/19 20:00 Mechanical Ventilator 12/24/19 20:00 109 12/24/19 20:00 24 103/55 Mechanical Ventilator 100 12/24/19 20:00 24 103/55 Mechanical Ventilator 12/24/19 20:00 103/55 12/24/19 20:00 98.4 109 25 112/64 (80) 100 12/24/19 20:00 100 12/24/19 19:35 113 20 100 12/24/19 19:30 110 20 115/57 (76) 100 12/24/19 19:15 113 23 119/63 (81) 100 12/24/19 19:00 30 119/53 Mechanical Ventilator 100 12/24/19 19:00 30 119/63 Mechanical Ventilator 100 12/24/19 19:00 119/63 12/24/19 19:00 111 19 109/68 (82) 100 12/24/19 18:30 45 132/67 Mechanical Ventilator 100 12/24/19 18:30 117 34 129/70 (89) 100 12/24/19 18:00 118 36 106/64 (78) 100 12/24/19 18:00 30 106/64 Mechanical Ventilator 70 12/24/19 18:00 35 106/64 Mechanical Ventilator 70 12/24/19 18:00 106/64 12/24/19 17:42 100 12/24/19 17:30 116 34 103/61 (75) 94 5/12/20 17:15 35 117/63 Mechanical Ventilator 70 12/24/19 17:05 30 117/63 Mechanical Ventilator 70 12/24/19 17:00 118 34 113/61 (78) 94 12/24/19 17:00 30 113/61 Mechanical Ventilator 70 12/24/19 17:00 108/71 12/24/19 17:00 35 117/63 Mechanical Ventilator 70 12/24/19 16:56 30 108/61 Mechanical Ventilator 70 12/24/19 16:56 108/61 12/24/19 16:51 88/60 12/24/19 16:30 116 34 89/51 (64) 93 12/24/19 16:00 111 12/24/19 16:00 109 36 132/60 (84) 96 12/24/19 16:00 32 132/60 Mechanical Ventilator 70 12/24/19 16:00 132/60 12/24/19 16:00 32 132/60 Mechanical Ventilator 70 12/24/19 16:00 70 12/24/19 16:00 Mechanical Ventilator 12/24/19 15:30 103 25 123/58 (79) 97 12/24/19 15:15 98 14 128/64 (85) 98 12/24/19 15:00 100 23 130/65 (86) 100 12/24/19 15:00 30 128/64 Mechanical Ventilator 70 12/24/19 15:00 128/64 12/24/19 15:00 30 128/64 Mechanical Ventilator 70 12/24/19 14:59 97 34 70 12/24/19 14:45 98 34 120/62 (81) 99 12/24/19 14:30 97 33 126/60 (82) 99 12/24/19 14:15 94 34 123/61 (81) 100 12/24/19 14:00 94 29 117/59 (78) 100 12/24/19 14:00 30 123/61 Mechanical Ventilator 70 12/24/19 14:00 123/61 12/24/19 14:00 30 123/61 Mechanical Ventilator 70 12/24/19 13:45 94 32 122/60 (80) 99 12/24/19 13:30 94 30 119/62 (81) 98 12/24/19 13:15 91 29 119/61 (80) 99 12/24/19 13:00 92 34 124/64 (84) 100 12/24/19 13:00 30 119/61 Mechanical Ventilator 70 12/24/19 13:00 119/61 12/24/19 13:00 29 119/61 Mechanical Ventilator 70 12/24/19 12:30 93 31 125/66 (85) 100 12/24/19 12:00 92 12/24/19 12:00 98.3 12/24/19 12:00 91 30 115/64 (81) 100 12/24/19 12:00 30 117/61 Mechanical Ventilator 70 12/24/19 12:00 115/64 12/24/19 12:00 29 115/64 Mechanical Ventilator 70 12/24/19 12:00 70 12/24/19 12:00 Mechanical Ventilator 12/24/19 11:30 90 31 121/60 (80) 100 12/24/19 11:00 91 29 119/63 (81) 100 12/24/19 11:00 30 116/63 Mechanical Ventilator 70 12/24/19 11:00 117/61 12/24/19 11:00 30 117/61 Mechanical Ventilator 70 12/24/19 11:00 89 20 119/61 (80) 100 12/24/19 10:45 84 19 120/60 (80) 99 12/24/19 10:41 87 33 70 12/24/19 10:30 88 29 114/64 (81) 100 12/24/19 10:15 90 27 121/62 (81) 99 12/24/19 10:00 30 121/62 Mechanical Ventilator 70 12/24/19 10:00 104/60 12/24/19 10:00 29 104/60 Mechanical Ventilator 70 12/24/19 10:00 88 28 104/60 (75) 98 12/24/19 09:45 124/64 12/24/19 09:45 89 28 124/64 (84) 100 Intake and Output 12/24/19 12/25/19 19:00 07:00 Intake Total 908.311 ml 891.25 ml Output Total 110 ml 204 ml Balance 798.311 ml 687.25 ml Free Water 110 ml 60 ml IV Total 378.311 ml 446.25 ml Tube Feeding 420 ml 385 ml Output Urine Total 10 ml 4 ml Stool Total 100 ml 200 ml Laboratory Tests 12/24/19 12:19: Stool Occult Blood [Pending] 12/24/19 22:50: Random Vancomycin Level 16.6 12/25/19 04:10: White Blood Count 34.2*H, Red Blood Count 2.71L, Hemoglobin 8.2L, Hematocrit 25.2L, Mean Corpuscular Volume 93, Mean Corpuscular Hemoglobin 30.1, Mean Corpuscular Hemoglobin Concent 32.4, Red Cell Distribution Width 15.6H, Platelet Count 253, Mean Platelet Volume 7.0, Neutrophils (%) (Auto) , Lymphocytes (%) (Auto) , Monocytes (%) (Auto) , Eosinophils (%) (Auto) , Basophils (%) (Auto) , Neutrophils % (Manual) [Pending], Lymphocytes % (Manual) [Pending], Platelet Estimate [Pending], Platelet Morphology [Pending], Sodium Level 137, Potassium Level 3.7, Chloride Level 95L, Carbon Dioxide Level 35H, Anion Gap 7, Blood Urea Nitrogen 32H, Creatinine 2.8H, Estimat Glomerular Filtration Rate 23.4, Glucose Level 102, Calcium Level 8.3L, Total Bilirubin 0.5 , Aspartate Amino Transf (AST/SGOT) 53H, Alanine Aminotransferase (ALT/SGPT) 43 , Alkaline Phosphatase 233H, Total Protein 7.4, Albumin 2.2L, Globulin 5.2, Albumin/Globulin Ratio 0.4L Height (Feet): 5 Height (Inches): 6.00 Weight (Pounds): 160 General Appearance: lethargic EENT: normal ENT inspection Neck: supple Cardiovascular: tachycardia Respiratory/Chest: decreased breath sounds Abdomen: normal bowel sounds, non tender, soft Extremities: non-tender João Rdz MD December 25, 2019 09:37
--- NOTE | 2019-12-25 09:45 | NUR ---
NURSE NOTES: Spoke with Dr Aguayo. Updated her regarding the patient's condition at this time and over night. Notified her that patient does not have DVT prophylaxis ordered at this time. She reported that she would consult with Dr Rdz. Notified her that the sedation was lowered yesterday and the patient became tachypneic and tachycardic and the oxygen saturation dropped to 85%. When sedation increased, the RR, SpO2, and HR improved however the patient remains unresponsive.
--- NOTE | 2019-12-25 10:00 | NUR ---
NURSE NOTES: Spoke with Dr Cortes when he rounded on the patient. Updated him regarding patient's current condition. No verbal orders received.
--- NOTE | 2019-12-25 10:36 | Nephrology Progress Note ---
Assessment/Plan Plan #ALBARO- concerns for developing ischemic ATN in the setting of sepsis- r/o vanco toxicity - r/o COVID nephropathy - now with likely ATN #Hyperkalemia due to renal insuffiency - exacerbated by acidosis #COID sepsis #COVID pneumonia #hypoxemic respiratary failure #HTN- now in shock #mediastinal PTX - next HD today - fio2 up to 100 - concerns for PE - started on heparin drip for PE - midodorine 10mg q8hr - add sevelamer 800mg TID - monitor I&Os - daily weights - monitor lytes closely -add nephrovite - GOALS of care discussion - continue pressor support to maintain MAP > 65- continue levo - continue fentanyl dip - abx per ID- on vanco and meropenem - vent management per pulm -Abd Xray shows mediastinal PTX - too high risk for thorocotomy Subjective ROS Limited/Unobtainable: Yes Subjective plan for HD today again fio2 up to 100 concerns for PE started on heparin drip for PE remains oliguric on levo Abd Xray shows mediastinal PTX Objective Objective Last 24 Hour Vital Signs Date Time Temp Pulse Resp B/P (MAP) Pulse Ox O2 Delivery O2 Flow Rate FiO2 12/25/19 07:02 102 23 100 12/25/19 07:00 104 25 103/54 (70) 100 12/25/19 06:30 103 26 109/57 (74) 100 12/25/19 06:27 26 112/58 Mechanical Ventilator 100 12/25/19 06:27 26 112/58 Mechanical Ventilator 100 12/25/19 06:27 112/58 12/25/19 06:00 101 25 107/59 (75) 100 12/25/19 05:30 102 27 111/60 (77) 100 12/25/19 05:00 27 104/60 Mechanical Ventilator 100 12/25/19 05:00 27 104/60 Mechanical Ventilator 12/25/19 05:00 104/60 12/25/19 05:00 103 27 104/59 (74) 100 12/25/19 04:30 106 30 102/58 (73) 100 12/25/19 04:00 103 12/25/19 04:00 Mechanical Ventilator 12/25/19 04:00 99.0 109 33 115/62 (79) 100 12/25/19 04:00 30 113/60 Mechanical Ventilator 100 12/25/19 04:00 30 113/60 Mechanical Ventilator 100 12/25/19 04:00 113/60 12/25/19 04:00 100 12/25/19 03:41 106 33 100 12/25/19 03:30 108 33 122/71 (88) 100 12/25/19 03:00 109 31 126/71 (89) 100 12/25/19 03:00 33 125/70 Mechanical Ventilator 100 12/25/19 03:00 33 125/70 Mechanical Ventilator 100 12/25/19 03:00 125/70 12/25/19 02:30 109 33 127/71 (89) 100 12/25/19 02:00 107 33 129/71 (90) 100 12/25/19 02:00 33 131/72 Mechanical Ventilator 100 12/25/19 01:30 105 31 128/75 (92) 100 12/25/19 01:00 103 33 123/72 (89) 100 12/25/19 01:00 31 132/73 Mechanical Ventilator 100 12/25/19 01:00 31 132/73 Mechanical Ventilator 40 12/25/19 01:00 132/73 12/25/19 00:30 103 32 124/69 (87) 100 12/25/19 00:00 103 12/25/19 00:00 100 12/25/19 00:00 32 121/68 Mechanical Ventilator 100 12/25/19 00:00 32 121/68 Mechanical Ventilator 100 12/25/19 00:00 121/68 12/25/19 00:00 Mechanical Ventilator 12/25/19 00:00 99.0 104 32 119/68 (85) 100 12/24/19 23:30 106 29 112/59 (76) 100 12/24/19 23:03 107 24 100 12/24/19 23:00 28 115/65 Mechanical Ventilator 100 12/24/19 23:00 28 115/65 Mechanical Ventilator 100 12/24/19 23:00 115/65 12/24/19 23:00 106 25 111/53 (72) 100 12/24/19 22:30 105 28 136/80 (98) 100 12/24/19 22:00 25 107/61 Mechanical Ventilator 100 12/24/19 22:00 25 107/61 Mechanical Ventilator 100 12/24/19 22:00 107/61 12/24/19 22:00 107 31 106/60 (75) 100 12/24/19 21:30 110 29 108/60 (76) 100 12/24/19 21:15 110 26 112/61 (78) 100 12/24/19 21:00 29 112/61 Mechanical Ventilator 100 12/24/19 21:00 29 112/61 Mechanical Ventilator 100 12/24/19 21:00 112/61 12/24/19 21:00 109 26 116/63 (80) 100 12/24/19 20:45 110 24 113/61 (78) 100 12/24/19 20:30 109 23 114/58 (76) 100 12/24/19 20:00 Mechanical Ventilator 12/24/19 20:00 109 12/24/19 20:00 24 103/55 Mechanical Ventilator 100 12/24/19 20:00 24 103/55 Mechanical Ventilator 12/24/19 20:00 103/55 12/24/19 20:00 98.4 109 25 112/64 (80) 100 12/24/19 20:00 100 12/24/19 19:35 113 20 100 12/24/19 19:30 110 20 115/57 (76) 100 12/24/19 19:15 113 23 119/63 (81) 100 12/24/19 19:00 30 119/53 Mechanical Ventilator 100 12/24/19 19:00 30 119/63 Mechanical Ventilator 100 12/24/19 19:00 119/63 12/24/19 19:00 111 19 109/68 (82) 100 12/24/19 18:30 45 132/67 Mechanical Ventilator 100 12/24/19 18:30 117 34 129/70 (89) 100 12/24/19 18:00 118 36 106/64 (78) 100 12/24/19 18:00 30 106/64 Mechanical Ventilator 70 12/24/19 18:00 35 106/64 Mechanical Ventilator 70 12/24/19 18:00 106/64 12/24/19 17:42 100 12/24/19 17:30 116 34 103/61 (75) 94 12/24/19 17:15 35 117/63 Mechanical Ventilator 70 12/24/19 17:05 30 117/63 Mechanical Ventilator 70 12/24/19 17:00 118 34 113/61 (78) 94 12/24/19 17:00 30 113/61 Mechanical Ventilator 70 12/24/19 17:00 108/71 12/24/19 17:00 35 117/63 Mechanical Ventilator 70 12/24/19 16:56 30 108/61 Mechanical Ventilator 70 12/24/19 16:56 108/61 12/24/19 16:51 88/60 12/24/19 16:30 116 34 89/51 (64) 93 12/24/19 16:00 111 12/24/19 16:00 109 36 132/60 (84) 96 12/24/19 16:00 32 132/60 Mechanical Ventilator 70 12/24/19 16:00 132/60 12/24/19 16:00 32 132/60 Mechanical Ventilator 70 12/24/19 16:00 70 12/24/19 16:00 Mechanical Ventilator 12/24/19 15:30 103 25 123/58 (79) 97 12/24/19 15:15 98 14 128/64 (85) 98 12/24/19 15:00 100 23 130/65 (86) 100 12/24/19 15:00 30 128/64 Mechanical Ventilator 70 12/24/19 15:00 128/64 12/24/19 15:00 30 128/64 Mechanical Ventilator 70 12/24/19 14:59 97 34 70 12/24/19 14:45 98 34 120/62 (81) 99 12/24/19 14:30 97 33 126/60 (82) 99 12/24/19 14:15 94 34 123/61 (81) 100 12/24/19 14:00 94 29 117/59 (78) 100 12/24/19 14:00 30 123/61 Mechanical Ventilator 70 12/24/19 14:00 123/61 12/24/19 14:00 30 123/61 Mechanical Ventilator 70 12/24/19 13:45 94 32 122/60 (80) 99 12/24/19 13:30 94 30 119/62 (81) 98 12/24/19 13:15 91 29 119/61 (80) 99 12/24/19 13:00 92 34 124/64 (84) 100 12/24/19 13:00 30 119/61 Mechanical Ventilator 70 12/24/19 13:00 119/61 12/24/19 13:00 29 119/61 Mechanical Ventilator 70 12/24/19 12:30 93 31 125/66 (85) 100 12/24/19 12:00 92 12/24/19 12:00 98.3 12/24/19 12:00 91 30 115/64 (81) 100 12/24/19 12:00 30 117/61 Mechanical Ventilator 70 12/24/19 12:00 115/64 12/24/19 12:00 29 115/64 Mechanical Ventilator 70 12/24/19 12:00 70 12/24/19 12:00 Mechanical Ventilator 12/24/19 11:30 90 31 121/60 (80) 100 12/24/19 11:00 91 29 119/63 (81) 100 12/24/19 11:00 30 116/63 Mechanical Ventilator 70 12/24/19 11:00 117/61 12/24/19 11:00 30 117/61 Mechanical Ventilator 70 12/24/19 11:00 89 20 119/61 (80) 100 12/24/19 10:45 84 19 120/60 (80) 99 12/24/19 10:41 87 33 70 Intake and Output 12/24/19 12/25/19 19:00 07:00 Intake Total 908.311 ml 926.25 ml Output Total 110 ml 204 ml Balance 798.311 ml 722.25 ml Free Water 110 ml 60 ml IV Total 378.311 ml 446.25 ml Tube Feeding 420 ml 420 ml Output Urine Total 10 ml 4 ml Stool Total 100 ml 200 ml Laboratory Tests 12/24/19 12:19: Stool Occult Blood [Pending] 12/24/19 22:50: Random Vancomycin Level 16.6 12/25/19 04:10: White Blood Count 34.2*H, Red Blood Count 2.71L, Hemoglobin 8.2L, Hematocrit 25.2L, Mean Corpuscular Volume 93, Mean Corpuscular Hemoglobin 30.1, Mean Corpuscular Hemoglobin Concent 32.4, Red Cell Distribution Width 15.6H, Platelet Count 253, Mean Platelet Volume 7.0, Neutrophils (%) (Auto) , Lymphocytes (%) (Auto) , Monocytes (%) (Auto) , Eosinophils (%) (Auto) , Basophils (%) (Auto) , Neutrophils % (Manual) [Pending], Lymphocytes % (Manual) [Pending], Platelet Estimate [Pending], Platelet Morphology [Pending], Sodium Level 137, Potassium Level 3.7, Chloride Level 95L, Carbon Dioxide Level 35H, Anion Gap 7, Blood Urea Nitrogen 32H, Creatinine 2.8H, Estimat Glomerular Filtration Rate 23.4, Glucose Level 102, Calcium Level 8.3L, Total Bilirubin 0.5 , Aspartate Amino Transf (AST/SGOT) 53H, Alanine Aminotransferase (ALT/SGPT) 43 , Alkaline Phosphatase 233H, Total Protein 7.4, Albumin 2.2L, Globulin 5.2, Albumin/Globulin Ratio 0.4L Height (Feet): 5 Height (Inches): 6.00 Weight (Pounds): 160 Objective General Appearance: other - intubated- proned Lines, tubes and drains: central line HEENT: normocephalic, atraumatic Respiratory/Chest: rhonchi - bilaterally Cardiovascular/Chest: other - tachycardic Extremities: pitting Dorian Soriano M.D. December 25, 2019 10:36
[2019-12-25] MEDS ORDERED: Heparin1,000 units/500ml Premix(Conc:2 units/ml) IV PRN (10:56)
--- NOTE | 2019-12-25 10:56 | Pulmonology Progress Note ---
Subjective ROS Limited/Unobtainable: Yes Interval Events: Intubated ;proning on hold due to facial decubitus Constitutional: Reports: fever, fatigue, other - on vent and pressors HEENT: Repors: no symptoms Respiratory: Reports: no symptoms Cardiovascular: Reports: no symptoms Gastrointestinal/Abdominal: Denies: nausea, vomiting, diarrhea Genitourinary: Reports: no symptoms Psychiatric: Reports: other - NA Skin: Denies: rash Musculoskeletal: Reports: pain - NA Allergies: Coded Allergies: No Known Allergies (Unverified , 11/29/19) All Systems: reviewed and negative except above Subjective On daily HD Objective Last 24 Hour Vital Signs Date Time Temp Pulse Resp B/P (MAP) Pulse Ox O2 Delivery O2 Flow Rate FiO2 12/25/19 07:02 102 23 100 12/25/19 07:00 104 25 103/54 (70) 100 12/25/19 06:30 103 26 109/57 (74) 100 12/25/19 06:27 26 112/58 Mechanical Ventilator 100 12/25/19 06:27 26 112/58 Mechanical Ventilator 100 12/25/19 06:27 112/58 12/25/19 06:00 101 25 107/59 (75) 100 12/25/19 05:30 102 27 111/60 (77) 100 12/25/19 05:00 27 104/60 Mechanical Ventilator 100 12/25/19 05:00 27 104/60 Mechanical Ventilator 12/25/19 05:00 104/60 12/25/19 05:00 103 27 104/59 (74) 100 12/25/19 04:30 106 30 102/58 (73) 100 12/25/19 04:00 103 12/25/19 04:00 Mechanical Ventilator 12/25/19 04:00 99.0 109 33 115/62 (79) 100 12/25/19 04:00 30 113/60 Mechanical Ventilator 100 12/25/19 04:00 30 113/60 Mechanical Ventilator 100 12/25/19 04:00 113/60 12/25/19 04:00 100 12/25/19 03:41 106 33 100 12/25/19 03:30 108 33 122/71 (88) 100 12/25/19 03:00 109 31 126/71 (89) 100 12/25/19 03:00 33 125/70 Mechanical Ventilator 100 12/25/19 03:00 33 125/70 Mechanical Ventilator 100 12/25/19 03:00 125/70 12/25/19 02:30 109 33 127/71 (89) 100 12/25/19 02:00 107 33 129/71 (90) 100 12/25/19 02:00 33 131/72 Mechanical Ventilator 100 12/25/19 01:30 105 31 128/75 (92) 100 12/25/19 01:00 103 33 123/72 (89) 100 12/25/19 01:00 31 132/73 Mechanical Ventilator 100 12/25/19 01:00 31 132/73 Mechanical Ventilator 40 12/25/19 01:00 132/73 12/25/19 00:30 103 32 124/69 (87) 100 12/25/19 00:00 103 12/25/19 00:00 100 12/25/19 00:00 32 121/68 Mechanical Ventilator 100 12/25/19 00:00 32 121/68 Mechanical Ventilator 100 12/25/19 00:00 121/68 12/25/19 00:00 Mechanical Ventilator 12/25/19 00:00 99.0 104 32 119/68 (85) 100 12/24/19 23:30 106 29 112/59 (76) 100 12/24/19 23:03 107 24 100 12/24/19 23:00 28 115/65 Mechanical Ventilator 100 12/24/19 23:00 28 115/65 Mechanical Ventilator 100 12/24/19 23:00 115/65 12/24/19 23:00 106 25 111/53 (72) 100 12/24/19 22:30 105 28 136/80 (98) 100 12/24/19 22:00 25 107/61 Mechanical Ventilator 100 12/24/19 22:00 25 107/61 Mechanical Ventilator 100 12/24/19 22:00 107/61 12/24/19 22:00 107 31 106/60 (75) 100 12/24/19 21:30 110 29 108/60 (76) 100 12/24/19 21:15 110 26 112/61 (78) 100 12/24/19 21:00 29 112/61 Mechanical Ventilator 100 12/24/19 21:00 29 112/61 Mechanical Ventilator 100 12/24/19 21:00 112/61 5/12/20 21:00 109 26 116/63 (80) 100 12/24/19 20:45 110 24 113/61 (78) 100 12/24/19 20:30 109 23 114/58 (76) 100 12/24/19 20:00 Mechanical Ventilator 12/24/19 20:00 109 12/24/19 20:00 24 103/55 Mechanical Ventilator 100 12/24/19 20:00 24 103/55 Mechanical Ventilator 12/24/19 20:00 103/55 12/24/19 20:00 98.4 109 25 112/64 (80) 100 12/24/19 20:00 100 12/24/19 19:35 113 20 100 12/24/19 19:30 110 20 115/57 (76) 100 12/24/19 19:15 113 23 119/63 (81) 100 12/24/19 19:00 30 119/53 Mechanical Ventilator 100 12/24/19 19:00 30 119/63 Mechanical Ventilator 100 12/24/19 19:00 119/63 12/24/19 19:00 111 19 109/68 (82) 100 12/24/19 18:30 45 132/67 Mechanical Ventilator 100 12/24/19 18:30 117 34 129/70 (89) 100 12/24/19 18:00 118 36 106/64 (78) 100 12/24/19 18:00 30 106/64 Mechanical Ventilator 70 12/24/19 18:00 35 106/64 Mechanical Ventilator 70 12/24/19 18:00 106/64 12/24/19 17:42 100 12/24/19 17:30 116 34 103/61 (75) 94 12/24/19 17:15 35 117/63 Mechanical Ventilator 70 12/24/19 17:05 30 117/63 Mechanical Ventilator 70 12/24/19 17:00 118 34 113/61 (78) 94 12/24/19 17:00 30 113/61 Mechanical Ventilator 70 12/24/19 17:00 108/71 12/24/19 17:00 35 117/63 Mechanical Ventilator 70 12/24/19 16:56 30 108/61 Mechanical Ventilator 70 12/24/19 16:56 108/61 12/24/19 16:51 88/60 12/24/19 16:30 116 34 89/51 (64) 93 5/12/20 16:00 111 12/24/19 16:00 109 36 132/60 (84) 96 12/24/19 16:00 32 132/60 Mechanical Ventilator 70 12/24/19 16:00 132/60 12/24/19 16:00 32 132/60 Mechanical Ventilator 70 12/24/19 16:00 70 12/24/19 16:00 Mechanical Ventilator 12/24/19 15:30 103 25 123/58 (79) 97 12/24/19 15:15 98 14 128/64 (85) 98 12/24/19 15:00 100 23 130/65 (86) 100 12/24/19 15:00 30 128/64 Mechanical Ventilator 70 12/24/19 15:00 128/64 12/24/19 15:00 30 128/64 Mechanical Ventilator 70 12/24/19 14:59 97 34 70 12/24/19 14:45 98 34 120/62 (81) 99 12/24/19 14:30 97 33 126/60 (82) 99 12/24/19 14:15 94 34 123/61 (81) 100 12/24/19 14:00 94 29 117/59 (78) 100 12/24/19 14:00 30 123/61 Mechanical Ventilator 70 12/24/19 14:00 123/61 12/24/19 14:00 30 123/61 Mechanical Ventilator 70 12/24/19 13:45 94 32 122/60 (80) 99 12/24/19 13:30 94 30 119/62 (81) 98 12/24/19 13:15 91 29 119/61 (80) 99 12/24/19 13:00 92 34 124/64 (84) 100 12/24/19 13:00 30 119/61 Mechanical Ventilator 70 12/24/19 13:00 119/61 12/24/19 13:00 29 119/61 Mechanical Ventilator 70 12/24/19 12:30 93 31 125/66 (85) 100 12/24/19 12:00 92 12/24/19 12:00 98.3 12/24/19 12:00 91 30 115/64 (81) 100 12/24/19 12:00 30 117/61 Mechanical Ventilator 70 12/24/19 12:00 115/64 12/24/19 12:00 29 115/64 Mechanical Ventilator 70 12/24/19 12:00 70 12/24/19 12:00 Mechanical Ventilator 12/24/19 11:30 90 31 121/60 (80) 100 12/24/19 11:00 91 29 119/63 (81) 100 12/24/19 11:00 30 116/63 Mechanical Ventilator 70 12/24/19 11:00 117/61 12/24/19 11:00 30 117/61 Mechanical Ventilator 70 12/24/19 11:00 89 20 119/61 (80) 100 Intake and Output 12/24/19 12/25/19 19:00 07:00 Intake Total 908.311 ml 926.25 ml Output Total 110 ml 204 ml Balance 798.311 ml 722.25 ml Free Water 110 ml 60 ml IV Total 378.311 ml 446.25 ml Tube Feeding 420 ml 420 ml Output Urine Total 10 ml 4 ml Stool Total 100 ml 200 ml General Appearance: other - on vent and pressors HEENT: normocephalic, atraumatic, no JVD Respiratory/Chest: chest wall non-tender, decreased breath sounds Cardiovascular: normal peripheral pulses, normal rate Abdomen: normal bowel sounds, soft, non tender, no organomegaly, non distended Genitourinary: other - + barnes, hd pt Extremities: no cyanosis Skin: no rash Neurologic/Psychiatric: motor weakness, other - lethargic and poolry responsive Lymphatic: no neck adenopathy Musculoskeletal: no effusion Microbiology Date/Time Source Procedure Growth Status 12/22/19 16:15 Blood Blood Culture - Preliminary NO GROWTH AFTER 48 HOURS Resulted 12/22/19 16:00 Blood Blood Culture - Preliminary NO GROWTH AFTER 48 HOURS Resulted 12/23/19 04:00 Stool Clostridium difficile Toxin Assay - Final Complete 12/23/19 04:00 Indwelling Cath Urine Culture - Final NO GROWTH AFTER 48 HOURS Complete Laboratory Tests 12/24/19 12:19: Stool Occult Blood [Pending] 12/24/19 22:50: Random Vancomycin Level 16.6 12/25/19 04:10: White Blood Count 34.2*H, Red Blood Count 2.71L, Hemoglobin 8.2L, Hematocrit 25.2L, Mean Corpuscular Volume 93, Mean Corpuscular Hemoglobin 30.1, Mean Corpuscular Hemoglobin Concent 32.4, Red Cell Distribution Width 15.6H, Platelet Count 253, Mean Platelet Volume 7.0, Neutrophils (%) (Auto) , Lymphocytes (%) (Auto) , Monocytes (%) (Auto) , Eosinophils (%) (Auto) , Basophils (%) (Auto) , Differential Total Cells Counted 100, Neutrophils % ( Manual) 88H, Lymphocytes % (Manual) 6L, Monocytes % (Manual) 6, Eosinophils % ( Manual) 0, Basophils % (Manual) 0, Band Neutrophils 0, Platelet Estimate Adequate, Platelet Morphology Normal, Hypochromasia 2+, Anisocytosis 1+, Spherocytes 1+, Sodium Level 137, Potassium Level 3.7, Chloride Level 95L, Carbon Dioxide Level 35H, Anion Gap 7, Blood Urea Nitrogen 32H, Creatinine 2.8H , Estimat Glomerular Filtration Rate 23.4, Glucose Level 102, Calcium Level 8.3L , Total Bilirubin 0.5, Aspartate Amino Transf (AST/SGOT) 53H, Alanine Aminotransferase (ALT/SGPT) 43, Alkaline Phosphatase 233H, Total Protein 7.4, Albumin 2.2L, Globulin 5.2, Albumin/Globulin Ratio 0.4L Current Medications Medications (Trade) Dose Ordered Sig/Vicki Route PRN Reason Start Time Stop Time Status Last Admin Dose Admin Acetaminophen (Tylenol) 650 mg Q4H PRN NG Temp >100.5 12/06/19 14:15 01/05/20 14:14 12/23/19 00:31 Acetaminophen (Tylenol) 650 mg Q4H PRN RECTAL Mild Pain (Pain Scale 1-3) 12/04/19 11:45 01/03/20 11:44 12/06/19 19:17 Chlorhexidine Gluconate (Arely-Hex 2%) 1 applic DAILY@2000 TOPIC 12/05/19 20:00 03/04/20 19:59 12/24/19 20:14 Dextrose (Dextrose 50%) 25 ml Q30M PRN IV Hypoglycemia 11/29/19 14:15 02/27/20 14:14 Dextrose (Dextrose 50%) 50 ml Q30M PRN IV Hypoglycemia 11/29/19 14:15 02/27/20 14:14 Enoxaparin Sodium (Lovenox) 30 mg DAILY SUBQ 12/25/19 11:00 03/24/20 10:59 12/25/19 10:40 Fentanyl Citrate 2500 mcg/Sodium Chloride 250 ml @ 0 mls/hr Q24H IV 5/12/20 16:30 12/31/19 16:29 12/24/19 16:56 Folic Acid (Folate) 1 mg DAILY NG 12/18/19 09:00 01/17/20 08:59 12/25/19 08:34 Hydralazine HCl (Apresoline) 10 mg Q4H PRN IV For High Blood Pressure 11/29/19 15:15 02/27/20 15:14 Loperamide HCl (Imodium) 2 mg Q6H PRN NG Diarrhea 12/12/19 12:45 01/11/20 12:44 Meropenem 500 mg/ Sodium Chloride 50 ml @ 100 mls/hr Q24H IVPB 12/24/19 21:30 12/29/19 21:29 12/24/19 21:46 Micafungin Sodium 100 mg/Sodium Chloride 100 ml @ 100 mls/hr Q24H IVPB 12/24/19 22:00 12/31/19 21:59 12/24/19 21:45 Midazolam HCl 100 ml @ 0 mls/hr Q24H PRN IV Restlessness 12/24/19 16:30 12/31/19 16:29 12/24/19 17:15 Midodrine (Pro-Amatine) 10 mg THREE TIMES A DAY ORAL 12/12/19 13:00 03/11/20 12:59 12/25/19 08:34 Norepinephrine Bitartrate 8 mg/ Dextrose 250 ml @ 0 mls/hr Q24H IV 12/18/19 09:00 01/17/20 08:59 12/25/19 06:27 Ondansetron HCl (Zofran) 4 mg Q6H PRN IVP Nausea & Vomiting 11/29/19 14:15 12/29/19 14:14 Pantoprazole (Protonix) 40 mg DAILY IVP 11/30/19 12:15 12/30/19 12:14 12/25/19 08:34 Sevelamer Carbonate (Renvela) 800 mg THREE TIMES A DAY NG 12/22/19 13:00 03/21/20 12:59 12/25/19 08:34 Vancomycin HCl (Vanco rx to dose) 1 ea DAILY PRN MISC Per rx protocol 12/08/19 19:30 01/07/20 19:29 Vitamin B Complex/ Vit C/Folic Acid (Nephrovite) 1 tab DAILY NG 12/16/19 09:00 01/15/20 08:59 12/25/19 08:34 Assessment/Plan Assessment/Plan IMPRESSION: 1. Bilateral pneumonia. 2. Positive COVID-19. 3. Respiratory failure. DISCUSSION: Intubated On AC 20; FiO2 100; PEEP 3; SaO2 99% Oxygenation worsening last 24 hours will initiate empiric IV heparin for possible PE Mediastinal PTX; stable; continue low PEEP ventilation Hold proning On Fentanyl due to high triglycerides Grave prognosis I will follow carefully. On HD now S/p Actemra Blood CS ? contaminant Needs ongoing HD; more ultrafiltration Urine CS negative Continue PEEP 3 Continue vent Tray Tolentino Omar Syed MD December 25, 2019 10:56
[2019-12-25] MEDS ORDERED: Enoxaparin 30mg Inj SUBQ SCH (11:00)
--- NOTE | 2019-12-25 11:04 | General Progress Note ---
Assessment/Plan Status: unchanged Assessment/Plan: 59-year-old male with PMH of HTN presents with acute respiratory distress. COVID positive, was intubated on 12/03. NEURO #Acute toxic metabolic encephalopathy -per nurse, pt unresponsive and tachypneic off sedation -unable to obtain CT head 2/2 COVID -Neurology, Dr. Wilder, consulted, recs appreciated RESP/ID #Acute Hypoxic Respiratory Failure 2/2 COVID +, HCAP +--> WBC peak on 12/21, now downtrending #Septic Shock #PTX/Pneumomediastinum--> to high risk for intervention #diarrhea -s/p Intubation 12/03 -Appreciate Pulm/ID --> Vent Management -Fentanyl for Sedation 2/2 elevated TG -Pressor support, maintain MAP > 65 -ABG per pulm -Patient is s/p IL-6 inhibitor and Plaquenil -s/p Vanc (12/09-12/15), cefepime (12/09-12/15), flagyl (12/09-12/15) -Trend predictive markers Q3 days; CRP, Pro-Calcitonin, Ferritin, Ddimer -Surgery to monitor PTX -Continue Broad Spectrum AB per ID, Cx per ID (currently on meropenem, vancomycin, fluconazole, PO vanco for possible c diff) -d/w pulm and nephro, given tachypnea, will start pt on heparin ggt as concern for PE is high NEPHRO #ARF now on HD -12/04: femoral HD cath placed -Continue HD per Nephro GI #Shock Liver - resolved -Appreciate GI recs -Liver enzymes also likely elevated 2/2 COVID + state CV #Tachcyardia, -s/p AFib now converted to sinus, no further episodes of afib -echo pending COVID -Appreciate Cardio management DVT/GI ppx, Tube Feeding, FULL CODE Time spent on encounter: 61 mins, 35 mins spent on critical care time. Critical Care Services performed include: Telemetry Review Hemodynamic measurement interpretation Laboratory data review and interpretation Radiology image review and interpretation Interpretation of ABG's Discussion of patient's care with ICU team, Nursing staff and consulting services, Dr. Soriano, Dr. Cortes, Dr. Wilder. Time of note doesn't reflect time of encounter. Subjective Allergies: Coded Allergies: No Known Allergies (Unverified , 11/29/19) Subjective Follow up for acute hypoxic resp failure, COVID19 positive, intubation/sedated, multi-organ failure. Remains intubated on 100% FiO2, PEEP 3, sedated on pressure support Levo 4, on Versed and fentanyl. Per nurse, attempted to wean patient off sedation overnight, patient was unresponsive and became tachypneic, FiO2 was increased from 70 to 100% and sedation was turned back on and pt no longer tachypneic. Unable to obtain ROS due to clinical picture. Objective Last 24 Hour Vital Signs Date Time Temp Pulse Resp B/P (MAP) Pulse Ox O2 Delivery O2 Flow Rate FiO2 12/25/19 07:02 102 23 100 12/25/19 07:00 104 25 103/54 (70) 100 12/25/19 06:30 103 26 109/57 (74) 100 12/25/19 06:27 26 112/58 Mechanical Ventilator 100 12/25/19 06:27 26 112/58 Mechanical Ventilator 100 12/25/19 06:27 112/58 12/25/19 06:00 101 25 107/59 (75) 100 12/25/19 05:30 102 27 111/60 (77) 100 12/25/19 05:00 27 104/60 Mechanical Ventilator 100 12/25/19 05:00 27 104/60 Mechanical Ventilator 12/25/19 05:00 104/60 12/25/19 05:00 103 27 104/59 (74) 100 12/25/19 04:30 106 30 102/58 (73) 100 12/25/19 04:00 103 12/25/19 04:00 Mechanical Ventilator 12/25/19 04:00 99.0 109 33 115/62 (79) 100 12/25/19 04:00 30 113/60 Mechanical Ventilator 100 12/25/19 04:00 30 113/60 Mechanical Ventilator 100 12/25/19 04:00 113/60 12/25/19 04:00 100 12/25/19 03:41 106 33 100 12/25/19 03:30 108 33 122/71 (88) 100 12/25/19 03:00 109 31 126/71 (89) 100 12/25/19 03:00 33 125/70 Mechanical Ventilator 100 12/25/19 03:00 33 125/70 Mechanical Ventilator 100 12/25/19 03:00 125/70 5/13/20 02:30 109 33 127/71 (89) 100 12/25/19 02:00 107 33 129/71 (90) 100 12/25/19 02:00 33 131/72 Mechanical Ventilator 100 12/25/19 01:30 105 31 128/75 (92) 100 12/25/19 01:00 103 33 123/72 (89) 100 12/25/19 01:00 31 132/73 Mechanical Ventilator 100 12/25/19 01:00 31 132/73 Mechanical Ventilator 40 12/25/19 01:00 132/73 12/25/19 00:30 103 32 124/69 (87) 100 12/25/19 00:00 103 12/25/19 00:00 100 12/25/19 00:00 32 121/68 Mechanical Ventilator 100 12/25/19 00:00 32 121/68 Mechanical Ventilator 100 12/25/19 00:00 121/68 12/25/19 00:00 Mechanical Ventilator 12/25/19 00:00 99.0 104 32 119/68 (85) 100 12/24/19 23:30 106 29 112/59 (76) 100 12/24/19 23:03 107 24 100 12/24/19 23:00 28 115/65 Mechanical Ventilator 100 12/24/19 23:00 28 115/65 Mechanical Ventilator 100 12/24/19 23:00 115/65 12/24/19 23:00 106 25 111/53 (72) 100 12/24/19 22:30 105 28 136/80 (98) 100 12/24/19 22:00 25 107/61 Mechanical Ventilator 100 12/24/19 22:00 25 107/61 Mechanical Ventilator 100 12/24/19 22:00 107/61 12/24/19 22:00 107 31 106/60 (75) 100 12/24/19 21:30 110 29 108/60 (76) 100 12/24/19 21:15 110 26 112/61 (78) 100 12/24/19 21:00 29 112/61 Mechanical Ventilator 100 12/24/19 21:00 29 112/61 Mechanical Ventilator 100 12/24/19 21:00 112/61 12/24/19 21:00 109 26 116/63 (80) 100 12/24/19 20:45 110 24 113/61 (78) 100 12/24/19 20:30 109 23 114/58 (76) 100 12/24/19 20:00 Mechanical Ventilator 12/24/19 20:00 109 12/24/19 20:00 24 103/55 Mechanical Ventilator 100 12/24/19 20:00 24 103/55 Mechanical Ventilator 12/24/19 20:00 103/55 12/24/19 20:00 98.4 109 25 112/64 (80) 100 12/24/19 20:00 100 12/24/19 19:35 113 20 100 12/24/19 19:30 110 20 115/57 (76) 100 12/24/19 19:15 113 23 119/63 (81) 100 12/24/19 19:00 30 119/53 Mechanical Ventilator 100 12/24/19 19:00 30 119/63 Mechanical Ventilator 100 12/24/19 19:00 119/63 12/24/19 19:00 111 19 109/68 (82) 100 12/24/19 18:30 45 132/67 Mechanical Ventilator 100 12/24/19 18:30 117 34 129/70 (89) 100 12/24/19 18:00 118 36 106/64 (78) 100 12/24/19 18:00 30 106/64 Mechanical Ventilator 70 12/24/19 18:00 35 106/64 Mechanical Ventilator 70 12/24/19 18:00 106/64 12/24/19 17:42 100 12/24/19 17:30 116 34 103/61 (75) 94 12/24/19 17:15 35 117/63 Mechanical Ventilator 70 12/24/19 17:05 30 117/63 Mechanical Ventilator 70 12/24/19 17:00 118 34 113/61 (78) 94 12/24/19 17:00 30 113/61 Mechanical Ventilator 70 12/24/19 17:00 108/71 12/24/19 17:00 35 117/63 Mechanical Ventilator 70 12/24/19 16:56 30 108/61 Mechanical Ventilator 70 12/24/19 16:56 108/61 12/24/19 16:51 88/60 12/24/19 16:30 116 34 89/51 (64) 93 12/24/19 16:00 111 12/24/19 16:00 109 36 132/60 (84) 96 12/24/19 16:00 32 132/60 Mechanical Ventilator 70 12/24/19 16:00 132/60 12/24/19 16:00 32 132/60 Mechanical Ventilator 70 12/24/19 16:00 70 12/24/19 16:00 Mechanical Ventilator 12/24/19 15:30 103 25 123/58 (79) 97 12/24/19 15:15 98 14 128/64 (85) 98 12/24/19 15:00 100 23 130/65 (86) 100 12/24/19 15:00 30 128/64 Mechanical Ventilator 70 12/24/19 15:00 128/64 12/24/19 15:00 30 128/64 Mechanical Ventilator 70 12/24/19 14:59 97 34 70 12/24/19 14:45 98 34 120/62 (81) 99 12/24/19 14:30 97 33 126/60 (82) 99 12/24/19 14:15 94 34 123/61 (81) 100 12/24/19 14:00 94 29 117/59 (78) 100 12/24/19 14:00 30 123/61 Mechanical Ventilator 70 12/24/19 14:00 123/61 12/24/19 14:00 30 123/61 Mechanical Ventilator 70 12/24/19 13:45 94 32 122/60 (80) 99 12/24/19 13:30 94 30 119/62 (81) 98 12/24/19 13:15 91 29 119/61 (80) 99 12/24/19 13:00 92 34 124/64 (84) 100 12/24/19 13:00 30 119/61 Mechanical Ventilator 70 12/24/19 13:00 119/61 12/24/19 13:00 29 119/61 Mechanical Ventilator 70 12/24/19 12:30 93 31 125/66 (85) 100 12/24/19 12:00 92 12/24/19 12:00 98.3 12/24/19 12:00 91 30 115/64 (81) 100 12/24/19 12:00 30 117/61 Mechanical Ventilator 70 12/24/19 12:00 115/64 12/24/19 12:00 29 115/64 Mechanical Ventilator 70 12/24/19 12:00 70 12/24/19 12:00 Mechanical Ventilator 12/24/19 11:30 90 31 121/60 (80) 100 Intake and Output 12/24/19 12/25/19 19:00 07:00 Intake Total 908.311 ml 926.25 ml Output Total 110 ml 204 ml Balance 798.311 ml 722.25 ml Free Water 110 ml 60 ml IV Total 378.311 ml 446.25 ml Tube Feeding 420 ml 420 ml Output Urine Total 10 ml 4 ml Stool Total 100 ml 200 ml Laboratory Tests 12/24/19 12:19: Stool Occult Blood [Pending] 12/24/19 22:50: Random Vancomycin Level 16.6 12/25/19 04:10: White Blood Count 34.2*H, Red Blood Count 2.71L, Hemoglobin 8.2L, Hematocrit 25.2L, Mean Corpuscular Volume 93, Mean Corpuscular Hemoglobin 30.1, Mean Corpuscular Hemoglobin Concent 32.4, Red Cell Distribution Width 15.6H, Platelet Count 253, Mean Platelet Volume 7.0, Neutrophils (%) (Auto) , Lymphocytes (%) (Auto) , Monocytes (%) (Auto) , Eosinophils (%) (Auto) , Basophils (%) (Auto) , Differential Total Cells Counted 100, Neutrophils % ( Manual) 88H, Lymphocytes % (Manual) 6L, Monocytes % (Manual) 6, Eosinophils % ( Manual) 0, Basophils % (Manual) 0, Band Neutrophils 0, Platelet Estimate Adequate, Platelet Morphology Normal, Hypochromasia 2+, Anisocytosis 1+, Spherocytes 1+, Sodium Level 137, Potassium Level 3.7, Chloride Level 95L, Carbon Dioxide Level 35H, Anion Gap 7, Blood Urea Nitrogen 32H, Creatinine 2.8H , Estimat Glomerular Filtration Rate 23.4, Glucose Level 102, Calcium Level 8.3L , Total Bilirubin 0.5, Aspartate Amino Transf (AST/SGOT) 53H, Alanine Aminotransferase (ALT/SGPT) 43, Alkaline Phosphatase 233H, Total Protein 7.4, Albumin 2.2L, Globulin 5.2, Albumin/Globulin Ratio 0.4L Height (Feet): 5 Height (Inches): 6.00 Weight (Pounds): 160 Objective General Appearance: intubated, OG tube in place, in supine position Cardiovascular: sinus tach on tele, HR low 100's Respiratory/Chest: ETT in place, equal rise in lungs b/l Abdomen: non distended Ext: no edema noted Theodore Aguayo M.D. December 25, 2019 11:04
--- NOTE | 2019-12-25 11:19 | NUR ---
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 She reported that she will be her for hemodialysis around 12:30pm.
--- NOTE | 2019-12-25 11:25 | NUR ---
CASE MANAGEMENT: REVIEW SI: COVID-19 INFECTION . PNA . INTUBATED RIGHT FEMORAL TEMP HD CATH PLACEMENT T 99.0 HR 109 RR 33 BP 103/54 SAT 100% MECH VENT FIO2 100 WBC 34.2 H/H 8.2/25.2 BUN 32 CR 2.8 ALK PHOS 233 IS: FENTANYL IV Q24HR LEVOPHED IV Q24HR HEPARIN GTT MEROPENEM IV Q24HR MICAFUNGIN IV Q24HR TYLENOL 650MG Q6HR NEEDED IMODIUM NGT NEEDED NGT FEEDING RECTAL TUBE HEMODIALYSIS NEEDED ICU STATUS DCP: PATIENT IS FROM HOME
--- NOTE | 2019-12-25 11:26 | Hematology/Onc Progress Note ---
Assessment/Plan Assessment/Plan # Leukocytosis/elevated white blood cell count, unspecified likely related to underlying stress reaction and addition of infection, COVID19++ on vent, intubated --> have reviewed peripheral smear and bandemia/neutrophilia noted --> continue antibiotics if they have been started by ID team --> on broad spectrum abx cefepime/flag/vanc-->katie/vanc/difluc --> monitor for resolution --> smear is noted, with metamyelocytes --> wbc trend 18-->24-->32.9-->34k-->27->26-->32->31->30-->34.2 --> ID is aware --> again ordered peripheral smear for path review-->reviewed and no blasts noted # Anemia of chronic disease due to underlying chronic medical issues, multifactorial v Gi bleed --> Anemia workup has been ordered, rule out gi bleed --> No evidence of hemolysis is noted, peripheral smear has been reviewed. --> Hgb goal >7. Transfuse prn. --> Epogen or iron at this time is not particularly indicated --> Medications have been reviewed --> low threshold for gi evaluation in case has occult + ==> hgb trend 11-->10.7-->10.4-->9.3-->9.1-->8-->8.2 # Thrombocytopenia also likely covid related --> supportive care --> plt 149-->164k-->154->195-->253 --> smear noted # Acute Hypoxic Respiratory Failure s/p intubation --> now on vent --> as per Dr. Cortes, weaning prn # COVID19 positive --> abx # Pneumomediastinum --> monitor for expansion --> on vent # Subcutaneous emphysema --> too high risk for bedside thoracostomy # ALBARO on ckd --> hd as needed --> per renal # femoral HD cath placed 12/04 --> hd prn # Dvt ppx scds ANDREW Rn and appreciate consultation Subjective Allergies: Coded Allergies: No Known Allergies (Unverified , 11/29/19) Subjective 12/12 remains on vent, ogtube, barnes and rectal tube emptied, right fem jia line 12/14 icu, prone, levo gtt, multiple abx, labs reviewed 12/15 nonv, no bleeding, remains in vent, no bleeding, wbc high, on abx per id 12/16 nonv, on vent, ng, rectal tube, wbc still 34k 12/17 icu, levo gtt, on katie/vanc, tachy 12/18 in icu, on ng tube feeds, vent, no bleeding, jia in place 12/19 in the icu, no bleeding, ngt, with rectal tube, no bleeding ebc 28k 12/21 is with higer wbc, on katie/vanc/diflucan, id aware, on vent 12/22 hgb 7.8, remains on vent, abx as well, labs reviewed wbc 31k 12/23 wbc is 30, hgb 8, no bleeding or chills, on vent, dw rn in am 12/24 icu, levo gtt, wbc 34, daily hd, stool ob pending Objective Objective Current Medications Medications (Trade) Dose Ordered Sig/Vicki Route PRN Reason Start Time Stop Time Status Last Admin Dose Admin Acetaminophen (Tylenol) 650 mg Q4H PRN NG Temp >100.5 12/06/19 14:15 01/05/20 14:14 12/23/19 00:31 Acetaminophen (Tylenol) 650 mg Q4H PRN RECTAL Mild Pain (Pain Scale 1-3) 12/04/19 11:45 01/03/20 11:44 12/06/19 19:17 Chlorhexidine Gluconate (Arely-Hex 2%) 1 applic DAILY@2000 TOPIC 12/05/19 20:00 03/04/20 19:59 12/24/19 20:14 Dextrose (Dextrose 50%) 25 ml Q30M PRN IV Hypoglycemia 11/29/19 14:15 02/27/20 14:14 Dextrose (Dextrose 50%) 50 ml Q30M PRN IV Hypoglycemia 11/29/19 14:15 02/27/20 14:14 Fentanyl Citrate 2500 mcg/Sodium Chloride 250 ml @ 0 mls/hr Q24H IV 12/24/19 16:30 12/31/19 16:29 12/24/19 16:56 Folic Acid (Folate) 1 mg DAILY NG 12/18/19 09:00 01/17/20 08:59 12/25/19 08:34 Hydralazine HCl (Apresoline) 10 mg Q4H PRN IV For High Blood Pressure 11/29/19 15:15 02/27/20 15:14 Loperamide HCl (Imodium) 2 mg Q6H PRN NG Diarrhea 12/12/19 12:45 01/11/20 12:44 Meropenem 500 mg/ Sodium Chloride 50 ml @ 100 mls/hr Q24H IVPB 12/24/19 21:30 12/29/19 21:29 12/24/19 21:46 Micafungin Sodium 100 mg/Sodium Chloride 100 ml @ 100 mls/hr Q24H IVPB 12/24/19 22:00 12/31/19 21:59 12/24/19 21:45 Midazolam HCl 100 ml @ 0 mls/hr Q24H PRN IV Restlessness 12/24/19 16:30 12/31/19 16:29 12/24/19 17:15 Midodrine (Pro-Amatine) 10 mg THREE TIMES A DAY ORAL 12/12/19 13:00 03/11/20 12:59 12/25/19 08:34 Norepinephrine Bitartrate 8 mg/ Dextrose 250 ml @ 0 mls/hr Q24H IV 12/18/19 09:00 01/17/20 08:59 12/25/19 06:27 Ondansetron HCl (Zofran) 4 mg Q6H PRN IVP Nausea & Vomiting 11/29/19 14:15 12/29/19 14:14 Pantoprazole (Protonix) 40 mg DAILY IVP 11/30/19 12:15 12/30/19 12:14 12/25/19 08:34 Sevelamer Carbonate (Renvela) 800 mg THREE TIMES A DAY NG 12/22/19 13:00 03/21/20 12:59 12/25/19 08:34 Vancomycin HCl (Vanco rx to dose) 1 ea DAILY PRN MISC Per rx protocol 12/08/19 19:30 01/07/20 19:29 Vitamin B Complex/ Vit C/Folic Acid (Nephrovite) 1 tab DAILY NG 12/16/19 09:00 01/15/20 08:59 12/25/19 08:34 Last 24 Hour Vital Signs Date Time Temp Pulse Resp B/P (MAP) Pulse Ox O2 Delivery O2 Flow Rate FiO2 12/25/19 08:00 Mechanical Ventilator 12/25/19 07:02 102 23 100 12/25/19 07:00 104 25 103/54 (70) 100 12/25/19 06:30 103 26 109/57 (74) 100 12/25/19 06:27 26 112/58 Mechanical Ventilator 100 12/25/19 06:27 26 112/58 Mechanical Ventilator 100 12/25/19 06:27 112/58 12/25/19 06:00 101 25 107/59 (75) 100 12/25/19 05:30 102 27 111/60 (77) 100 12/25/19 05:00 27 104/60 Mechanical Ventilator 100 12/25/19 05:00 27 104/60 Mechanical Ventilator 12/25/19 05:00 104/60 12/25/19 05:00 103 27 104/59 (74) 100 12/25/19 04:30 106 30 102/58 (73) 100 12/25/19 04:00 103 12/25/19 04:00 Mechanical Ventilator 12/25/19 04:00 99.0 109 33 115/62 (79) 100 12/25/19 04:00 30 113/60 Mechanical Ventilator 100 12/25/19 04:00 30 113/60 Mechanical Ventilator 100 12/25/19 04:00 113/60 12/25/19 04:00 100 12/25/19 03:41 106 33 100 12/25/19 03:30 108 33 122/71 (88) 100 12/25/19 03:00 109 31 126/71 (89) 100 12/25/19 03:00 33 125/70 Mechanical Ventilator 100 12/25/19 03:00 33 125/70 Mechanical Ventilator 100 12/25/19 03:00 125/70 12/25/19 02:30 109 33 127/71 (89) 100 12/25/19 02:00 107 33 129/71 (90) 100 12/25/19 02:00 33 131/72 Mechanical Ventilator 100 12/25/19 01:30 105 31 128/75 (92) 100 12/25/19 01:00 103 33 123/72 (89) 100 12/25/19 01:00 31 132/73 Mechanical Ventilator 100 12/25/19 01:00 31 132/73 Mechanical Ventilator 40 12/25/19 01:00 132/73 12/25/19 00:30 103 32 124/69 (87) 100 12/25/19 00:00 103 12/25/19 00:00 100 12/25/19 00:00 32 121/68 Mechanical Ventilator 100 12/25/19 00:00 32 121/68 Mechanical Ventilator 100 12/25/19 00:00 121/68 12/25/19 00:00 Mechanical Ventilator 12/25/19 00:00 99.0 104 32 119/68 (85) 100 12/24/19 23:30 106 29 112/59 (76) 100 12/24/19 23:03 107 24 100 12/24/19 23:00 28 115/65 Mechanical Ventilator 100 12/24/19 23:00 28 115/65 Mechanical Ventilator 100 12/24/19 23:00 115/65 12/24/19 23:00 106 25 111/53 (72) 100 12/24/19 22:30 105 28 136/80 (98) 100 12/24/19 22:00 25 107/61 Mechanical Ventilator 100 12/24/19 22:00 25 107/61 Mechanical Ventilator 100 12/24/19 22:00 107/61 12/24/19 22:00 107 31 106/60 (75) 100 12/24/19 21:30 110 29 108/60 (76) 100 12/24/19 21:15 110 26 112/61 (78) 100 12/24/19 21:00 29 112/61 Mechanical Ventilator 100 12/24/19 21:00 29 112/61 Mechanical Ventilator 100 12/24/19 21:00 112/61 12/24/19 21:00 109 26 116/63 (80) 100 12/24/19 20:45 110 24 113/61 (78) 100 12/24/19 20:30 109 23 114/58 (76) 100 12/24/19 20:00 Mechanical Ventilator 12/24/19 20:00 109 12/24/19 20:00 24 103/55 Mechanical Ventilator 100 12/24/19 20:00 24 103/55 Mechanical Ventilator 12/24/19 20:00 103/55 12/24/19 20:00 98.4 109 25 112/64 (80) 100 12/24/19 20:00 100 12/24/19 19:35 113 20 100 12/24/19 19:30 110 20 115/57 (76) 100 12/24/19 19:15 113 23 119/63 (81) 100 12/24/19 19:00 30 119/53 Mechanical Ventilator 100 12/24/19 19:00 30 119/63 Mechanical Ventilator 100 12/24/19 19:00 119/63 12/24/19 19:00 111 19 109/68 (82) 100 12/24/19 18:30 45 132/67 Mechanical Ventilator 100 12/24/19 18:30 117 34 129/70 (89) 100 12/24/19 18:00 118 36 106/64 (78) 100 12/24/19 18:00 30 106/64 Mechanical Ventilator 70 12/24/19 18:00 35 106/64 Mechanical Ventilator 70 12/24/19 18:00 106/64 12/24/19 17:42 100 12/24/19 17:30 116 34 103/61 (75) 94 12/24/19 17:15 35 117/63 Mechanical Ventilator 70 12/24/19 17:05 30 117/63 Mechanical Ventilator 70 12/24/19 17:00 118 34 113/61 (78) 94 12/24/19 17:00 30 113/61 Mechanical Ventilator 70 12/24/19 17:00 108/71 12/24/19 17:00 35 117/63 Mechanical Ventilator 70 12/24/19 16:56 30 108/61 Mechanical Ventilator 70 12/24/19 16:56 108/61 12/24/19 16:51 88/60 12/24/19 16:30 116 34 89/51 (64) 93 12/24/19 16:00 111 12/24/19 16:00 109 36 132/60 (84) 96 12/24/19 16:00 32 132/60 Mechanical Ventilator 70 12/24/19 16:00 132/60 12/24/19 16:00 32 132/60 Mechanical Ventilator 70 12/24/19 16:00 70 12/24/19 16:00 Mechanical Ventilator 12/24/19 15:30 103 25 123/58 (79) 97 12/24/19 15:15 98 14 128/64 (85) 98 12/24/19 15:00 100 23 130/65 (86) 100 12/24/19 15:00 30 128/64 Mechanical Ventilator 70 12/24/19 15:00 128/64 12/24/19 15:00 30 128/64 Mechanical Ventilator 70 12/24/19 14:59 97 34 70 12/24/19 14:45 98 34 120/62 (81) 99 12/24/19 14:30 97 33 126/60 (82) 99 12/24/19 14:15 94 34 123/61 (81) 100 12/24/19 14:00 94 29 117/59 (78) 100 12/24/19 14:00 30 123/61 Mechanical Ventilator 70 12/24/19 14:00 123/61 12/24/19 14:00 30 123/61 Mechanical Ventilator 70 12/24/19 13:45 94 32 122/60 (80) 99 12/24/19 13:30 94 30 119/62 (81) 98 12/24/19 13:15 91 29 119/61 (80) 99 12/24/19 13:00 92 34 124/64 (84) 100 12/24/19 13:00 30 119/61 Mechanical Ventilator 70 12/24/19 13:00 119/61 12/24/19 13:00 29 119/61 Mechanical Ventilator 70 12/24/19 12:30 93 31 125/66 (85) 100 12/24/19 12:00 92 12/24/19 12:00 98.3 12/24/19 12:00 91 30 115/64 (81) 100 12/24/19 12:00 30 117/61 Mechanical Ventilator 70 12/24/19 12:00 115/64 12/24/19 12:00 29 115/64 Mechanical Ventilator 70 12/24/19 12:00 70 12/24/19 12:00 Mechanical Ventilator 12/24/19 11:30 90 31 121/60 (80) 100 12/24/19 11:00 91 29 119/63 (81) 100 12/24/19 11:00 30 116/63 Mechanical Ventilator 70 12/24/19 11:00 117/61 12/24/19 11:00 30 117/61 Mechanical Ventilator 70 12/24/19 11:00 89 20 119/61 (80) 100 12/24/19 10:45 84 19 120/60 (80) 99 12/24/19 10:41 87 33 70 12/24/19 10:30 88 29 114/64 (81) 100 12/24/19 10:15 90 27 121/62 (81) 99 12/24/19 10:00 30 121/62 Mechanical Ventilator 70 12/24/19 10:00 104/60 12/24/19 10:00 29 104/60 Mechanical Ventilator 70 12/24/19 10:00 88 28 104/60 (75) 98 12/24/19 09:45 124/64 12/24/19 09:45 89 28 124/64 (84) 100 12/24/19 09:30 91 32 126/63 (84) 99 12/24/19 09:15 92 21 140/67 (91) 100 12/24/19 09:00 30 140/67 Mechanical Ventilator 70 12/24/19 09:00 108/58 12/24/19 09:00 30 121/62 Mechanical Ventilator 70 12/24/19 09:00 93 31 108/58 (75) 100 12/24/19 08:45 130/64 12/24/19 08:45 94 20 130/64 (86) 100 12/24/19 08:30 87 27 124/60 (81) 100 12/24/19 08:15 98.6 87 28 125/63 (83) 100 12/24/19 08:00 88 12/24/19 08:00 70 12/24/19 08:00 30 125/63 Mechanical Ventilator 70 12/24/19 08:00 127/64 12/24/19 08:00 30 125/63 Mechanical Ventilator 70 12/24/19 08:00 88 28 127/64 (85) 100 12/24/19 08:00 Mechanical Ventilator 12/24/19 07:45 87 25 127/65 (85) 100 12/24/19 07:30 91 30 119/62 (81) 99 12/24/19 07:00 30 125/63 Non-Rebreather 70 12/24/19 07:00 119/62 12/24/19 07:00 30 127/65 Mechanical Ventilator 70 12/24/19 07:00 91 24 129/63 (85) 100 12/24/19 06:58 89 25 70 12/24/19 06:30 89 24 122/68 (86) 100 12/24/19 06:00 94 30 120/68 (85) 100 12/24/19 06:00 22 Mechanical Ventilator 80 12/24/19 06:00 122/66 12/24/19 06:00 22 80 12/24/19 05:30 96 28 125/61 (82) 100 12/24/19 05:00 95 28 122/66 (84) 100 12/24/19 05:00 22 Mechanical Ventilator 12/24/19 05:00 115/60 12/24/19 05:00 23 Mechanical Ventilator 80 12/24/19 04:30 95 30 114/66 (82) 100 12/24/19 04:00 90 12/24/19 04:00 Mechanical Ventilator 12/24/19 04:00 22 Mechanical Ventilator 80 12/24/19 04:00 110/63 12/24/19 04:00 24 Mechanical Ventilator 80 12/24/19 04:00 60 12/24/19 04:00 99.0 97 32 109/59 (76) 94 12/24/19 03:33 99 28 70 12/24/19 03:30 99 20 122/62 (82) 98 12/24/19 03:20 130/70 12/24/19 03:00 23 Mechanical Ventilator 80 12/24/19 03:00 23 Mechanical Ventilator 80 12/24/19 03:00 101 24 85/48 (60) 96 12/24/19 02:30 98 22 109/61 (77) 98 12/24/19 02:00 24 Mechanical Ventilator 80 12/24/19 02:00 101/60 12/24/19 02:00 22 Mechanical Ventilator 80 12/24/19 02:00 98 23 107/56 (73) 98 12/24/19 01:45 21 Mechanical Ventilator 60 12/24/19 01:30 97 27 102/57 (72) 97 12/24/19 01:00 102 31 105/58 (74) 92 12/24/19 01:00 23 Mechanical Ventilator 80 12/24/19 01:00 104/58 12/24/19 01:00 22 Mechanical Ventilator 80 12/24/19 00:30 101 35 112/58 (76) 93 12/24/19 00:15 96 32 95/45 (62) 97 12/24/19 00:00 95 12/24/19 00:00 Mechanical Ventilator 12/24/19 00:00 60 12/24/19 00:00 98.8 96 31 114/60 (78) 100 12/24/19 00:00 23 Mechanical Ventilator 80 12/24/19 00:00 95/45 12/24/19 00:00 23 Mechanical Ventilator 80 12/23/19 23:53 102 33 60 12/23/19 23:30 96 32 105/61 (76) 100 12/23/19 23:00 23 Mechanical Ventilator 80 12/23/19 23:00 109/66 12/23/19 23:00 22 Mechanical Ventilator 80 12/23/19 23:00 93 27 108/60 (76) 100 12/23/19 22:30 97 26 79/45 (56) 100 12/23/19 22:00 98 28 137/71 (93) 100 12/23/19 22:00 22 Mechanical Ventilator 80 12/23/19 22:00 107/59 12/23/19 22:00 24 Mechanical Ventilator 80 12/23/19 21:33 21 Mechanical Ventilator 70 12/23/19 21:30 95 27 105/61 (76) 100 12/23/19 21:00 99 29 110/57 (74) 100 12/23/19 21:00 25 80 12/23/19 21:00 117/65 12/23/19 21:00 24 80 12/23/19 20:45 99 23 111/62 (78) 100 12/23/19 20:30 100 22 108/67 (81) 100 12/23/19 20:15 101 21 117/65 (82) 100 12/23/19 20:00 70 12/23/19 20:00 23 Mechanical Ventilator 80 12/23/19 20:00 117/65 12/23/19 20:00 22 Mechanical Ventilator 80 12/23/19 20:00 99 12/23/19 20:00 99.0 101 22 119/64 (82) 100 12/23/19 20:00 Mechanical Ventilator 12/23/19 19:49 102 26 70 12/23/19 19:30 104 20 124/67 (86) 100 12/23/19 19:00 105 20 122/68 (86) 100 12/23/19 18:30 108 20 131/67 (88) 99 12/23/19 18:00 108 22 105/65 (78) 98 12/23/19 17:30 110 23 116/66 (83) 98 12/23/19 17:00 115 24 110/54 (72) 96 12/23/19 16:40 74/41 12/23/19 16:30 114 34 74/41 (52) 90 12/23/19 16:00 Mechanical Ventilator 12/23/19 16:00 70 12/23/19 16:00 111 34 111/46 (67) 90 12/23/19 16:00 111 12/23/19 15:30 111 35 121/57 (78) 91 12/23/19 15:00 107 32 102/46 (64) 90 12/23/19 14:56 100 33 70 12/23/19 14:30 102 37 113/57 (75) 96 12/23/19 14:00 105 37 115/58 (77) 96 12/23/19 13:30 105 36 116/57 (76) 96 12/23/19 13:00 106 37 104/57 (73) 96 12/23/19 12:30 108 38 112/56 (74) 95 12/23/19 12:00 99.9 108 38 115/56 (75) 95 12/23/19 12:00 108 12/23/19 12:00 Mechanical Ventilator 12/23/19 12:00 70 12/23/19 11:30 109 39 112/57 (75) 95 Intake and Output 12/24/19 12/25/19 19:00 07:00 Intake Total 908.311 ml 926.25 ml Output Total 110 ml 204 ml Balance 798.311 ml 722.25 ml Free Water 110 ml 60 ml IV Total 378.311 ml 446.25 ml Tube Feeding 420 ml 420 ml Output Urine Total 10 ml 4 ml Stool Total 100 ml 200 ml Labs Test 12/22/19 16:00 12/23/19 04:00 12/23/19 04:14 12/24/19 05:07 Prothrombin Time 9.8 SEC (9.30-11.50) Prothromb Time International Ratio 0.9 (0.9-1.1) Activated Partial Thromboplast Time 27 SEC (23-33) Fibrinogen 755 mg/dL (200-400) Fibrin Degradation Products, Quant 20 ug/mL (<5) D-Dimer 13.39 mg/L FEU (0.00-0.49) Urine Color Brown Urine Appearance Slightly cloudy Urine pH 5 (4.5-8.0) Urine Specific Otis 1.015 (1.005-1.035) Urine Protein 4+ (NEGATIVE) Urine Glucose (UA) 2+ (NEGATIVE) Urine Ketones 1+ (NEGATIVE) Urine Blood 5+ (NEGATIVE) Urine Nitrite Positive (NEGATIVE) Urine Bilirubin Negative (NEGATIVE) Urine Urobilinogen 1 MG/DL (0.0-1.0) Urine Leukocyte Esterase 2+ (NEGATIVE) Urine RBC 15-20 /HPF (0 - 0) Urine WBC 5-10 /HPF (0 - 0) Urine Squamous Epithelial Cells Occasional /LPF Urine Bacteria Moderate /HPF (NONE) White Blood Count 30.9 K/UL (4.8-10.8) 29.8 K/UL (4.8-10.8) Red Blood Count 2.63 M/UL (4.70-6.10) 2.63 M/UL (4.70-6.10) Hemoglobin 7.8 G/DL (14.2-18.0) 8.0 G/DL (14.2-18.0) Hematocrit 24.8 % (42.0-52.0) 24.3 % (42.0-52.0) Mean Corpuscular Volume 94 FL (80-99) 93 FL (80-99) Mean Corpuscular Hemoglobin 29.6 PG (27.0-31.0) 30.4 PG (27.0-31.0) Mean Corpuscular Hemoglobin Concent 31.4 G/DL (32.0-36.0) 32.9 G/DL (32.0-36.0) Red Cell Distribution Width 15.2 % (11.6-14.8) 15.4 % (11.6-14.8) Platelet Count 249 K/UL (150-450) 275 K/UL (150-450) Mean Platelet Volume 6.2 FL (6.5-10.1) 6.9 FL (6.5-10.1) Neutrophils (%) (Auto) % (45.0-75.0) % (45.0-75.0) Lymphocytes (%) (Auto) % (20.0-45.0) % (20.0-45.0) Monocytes (%) (Auto) % (1.0-10.0) % (1.0-10.0) Eosinophils (%) (Auto) % (0.0-3.0) % (0.0-3.0) Basophils (%) (Auto) % (0.0-2.0) % (0.0-2.0) Differential Total Cells Counted 100 100 Neutrophils % (Manual) 84 % (45-75) 89 % (45-75) Lymphocytes % (Manual) 7 % (20-45) 3 % (20-45) Monocytes % (Manual) 5 % (1-10) 5 % (1-10) Eosinophils % (Manual) 3 % (0-3) 1 % (0-3) Basophils % (Manual) 1 % (0-2) 0 % (0-2) Band Neutrophils 0 % (0-8) 2 % (0-8) Platelet Estimate Adequate Adequate Platelet Morphology Normal Normal Hypochromasia 3+ Anisocytosis 1+ 1+ Sodium Level 138 MMOL/L (136-145) 135 MMOL/L (136-145) Potassium Level 4.2 MMOL/L (3.5-5.1) 3.6 MMOL/L (3.5-5.1) Chloride Level 97 MMOL/L (98-107) 95 MMOL/L (98-107) Carbon Dioxide Level 33 MMOL/L (21-32) 34 MMOL/L (21-32) Anion Gap 8 mmol/L (5-15) 6 mmol/L (5-15) Blood Urea Nitrogen 65 mg/dL (7-18) 46 mg/dL (7-18) Creatinine 5.3 MG/DL (0.55-1.30) 3.7 MG/DL (0.55-1.30) Estimat Glomerular Filtration Rate 11.2 mL/min (>60) 17.0 mL/min (>60) Glucose Level 115 MG/DL (74-106) 122 MG/DL (74-106) Calcium Level 8.8 MG/DL (8.5-10.1) 8.5 MG/DL (8.5-10.1) Phosphorus Level 7.8 MG/DL (2.5-4.9) Magnesium Level 2.9 MG/DL (1.8-2.4) Total Bilirubin 0.5 MG/DL (0.2-1.0) 0.5 MG/DL (0.2-1.0) Aspartate Amino Transf (AST/SGOT) 61 U/L (15-37) 50 U/L (15-37) Alanine Aminotransferase (ALT/SGPT) 50 U/L (12-78) 44 U/L (12-78) Alkaline Phosphatase 264 U/L (46-116) 226 U/L (46-116) Total Protein 6.7 G/DL (6.4-8.2) 7.0 G/DL (6.4-8.2) Albumin 2.2 G/DL (3.4-5.0) 2.2 G/DL (3.4-5.0) Globulin 4.5 g/dL 4.8 g/dL Albumin/Globulin Ratio 0.5 (1.0-2.7) 0.5 (1.0-2.7) Random Vancomycin Level 13.7 ug/mL Test 12/24/19 12:19 12/24/19 22:50 12/25/19 04:10 Random Vancomycin Level 16.6 ug/mL White Blood Count 34.2 K/UL (4.8-10.8) Red Blood Count 2.71 M/UL (4.70-6.10) Hemoglobin 8.2 G/DL (14.2-18.0) Hematocrit 25.2 % (42.0-52.0) Mean Corpuscular Volume 93 FL (80-99) Mean Corpuscular Hemoglobin 30.1 PG (27.0-31.0) Mean Corpuscular Hemoglobin Concent 32.4 G/DL (32.0-36.0) Red Cell Distribution Width 15.6 % (11.6-14.8) Platelet Count 253 K/UL (150-450) Mean Platelet Volume 7.0 FL (6.5-10.1) Neutrophils (%) (Auto) % (45.0-75.0) Lymphocytes (%) (Auto) % (20.0-45.0) Monocytes (%) (Auto) % (1.0-10.0) Eosinophils (%) (Auto) % (0.0-3.0) Basophils (%) (Auto) % (0.0-2.0) Differential Total Cells Counted 100 Neutrophils % (Manual) 88 % (45-75) Lymphocytes % (Manual) 6 % (20-45) Monocytes % (Manual) 6 % (1-10) Eosinophils % (Manual) 0 % (0-3) Basophils % (Manual) 0 % (0-2) Band Neutrophils 0 % (0-8) Platelet Estimate Adequate Platelet Morphology Normal Hypochromasia 2+ Anisocytosis 1+ Spherocytes 1+ Sodium Level 137 MMOL/L (136-145) Potassium Level 3.7 MMOL/L (3.5-5.1) Chloride Level 95 MMOL/L (98-107) Carbon Dioxide Level 35 MMOL/L (21-32) Anion Gap 7 mmol/L (5-15) Blood Urea Nitrogen 32 mg/dL (7-18) Creatinine 2.8 MG/DL (0.55-1.30) Estimat Glomerular Filtration Rate 23.4 mL/min (>60) Glucose Level 102 MG/DL (74-106) Calcium Level 8.3 MG/DL (8.5-10.1) Total Bilirubin 0.5 MG/DL (0.2-1.0) Aspartate Amino Transf (AST/SGOT) 53 U/L (15-37) Alanine Aminotransferase (ALT/SGPT) 43 U/L (12-78) Alkaline Phosphatase 233 U/L (46-116) Total Protein 7.4 G/DL (6.4-8.2) Albumin 2.2 G/DL (3.4-5.0) Globulin 5.2 g/dL Albumin/Globulin Ratio 0.4 (1.0-2.7) Height (Feet): 5 Height (Inches): 6.00 Weight (Pounds): 160 Objective General: prone position on vent Heent: nc, at+ ng Respiratory: normal breath sounds, no retraction, vent++ Cardiovascular: no edema, tachycardia Gastrointestinal: normal inspection Neurologic unresponsive on vent Psychiatric: judgement/insight normal, memory normal, mood/affect normal, no suicidal/homicidal ideation Ext: with hd fem jia in place : + barnes and rectal tube Mj Zhu MD December 25, 2019 11:26
--- NOTE | 2019-12-25 12:00 | NUR ---
NURSE NOTES: Patient blood pressure 105/54 on Levophed at 2mcg/min. Patient showing sinus tachycardia on the cloth mender at this time with rate of 108 at this time. Will continue to monitor and titrate per protocol. Patient sedated with RASS score -3 on fentanyl at 120mcg/hr and versed at 3mL/hr. Will continue to titrate as tolerated to maintain RASS of -3. Patient orally intubated with ventilator setting AC 20, tidal volume 500, FiO2 80%, and PEEP 3. Patient tolerating setting with no sign of acute distress. Nasal gastric tube in left Nares remains patent and running Nepro at 35mL/hr at this time with no residual. Rectal tube remains in place. Joe for remains patent, asymptomatic, and draining tiny amount of dark marge urine. right femoral jia catheter with pigtail remains patent, asymptomatic, and pigtail is running Levophed, versed, and propofol. Patient bed in low position with bed alarm on and call light in reach. Patient repositioned and oral care performed. Will continue to monitor.
--- NOTE | 2019-12-25 12:30 | NUR ---
NURSE NOTES: Dr Appiah rounded on the patient. Updated him regarding patient condition. No verbal orders received.
--- NOTE | 2019-12-25 13:42 | Cardiac Electrophysiology PN ---
Assessment/Plan Assessment/Plan 1. Atrial fib with RVR 170 before intubation on 12/04/19. Troponin 0.77. No further atrial fib. In SR 2. Sinus Tachycardia due to COVID-19 pneumonia. On IV antibiotic per ID. Echo pending COVID. 3. Septic shock. On Levophed 2 Mcg, Midodrine 10 tid and iv Abx. 4. Respiratory failure, on the Vent by Dr. Cortes. 80% Fio2, PEEP 3 5. Acute renal failure. On HD per Dr. Sanchez via [facility] [place] 6. Full code DW RN Subjective Subjective Intubated in ICU on 80% Fio2 and PEEP 3 on Levo only 2 mcg, Fentanyl 150 and Versed 5 drip.HD pending today Objective Last 24 Hour Vital Signs Date Time Temp Pulse Resp B/P (MAP) Pulse Ox O2 Delivery O2 Flow Rate FiO2 12/25/19 13:00 107 33 104/57 (73) 95 12/25/19 12:45 108 33 103/55 (71) 95 12/25/19 12:30 108 32 107/55 (72) 94 12/25/19 12:15 107 32 105/54 (71) 94 12/25/19 12:00 80 12/25/19 12:00 98.6 108 32 108/55 (72) 93 12/25/19 12:00 Mechanical Ventilator 12/25/19 12:00 106 12/25/19 11:45 108 31 100/55 (70) 93 12/25/19 11:30 106 30 105/52 (69) 95 12/25/19 11:15 106 31 110/54 (72) 96 12/25/19 11:00 106 28 102/57 (72) 100 12/25/19 10:52 106 29 80 12/25/19 10:45 104 27 104/56 (72) 100 12/25/19 10:30 102 26 108/59 (75) 100 12/25/19 10:15 103 27 108/60 (76) 100 12/25/19 10:00 102 28 112/60 (77) 100 12/25/19 09:45 104 27 112/58 (76) 100 12/25/19 09:30 105 26 103/61 (75) 100 12/25/19 09:15 106 27 119/60 (79) 100 12/25/19 09:00 106 26 112/61 (78) 100 12/25/19 08:58 106 27 121/63 (82) 100 12/25/19 08:45 105 26 112/63 (79) 100 12/25/19 08:30 103 25 109/59 (76) 100 12/25/19 08:15 104 26 106/59 (75) 100 12/25/19 08:00 Mechanical Ventilator 12/25/19 08:00 103 12/25/19 08:00 98.6 106 25 113/59 (77) 100 12/25/19 08:00 100 12/25/19 07:30 103 24 104/58 (73) 100 12/25/19 07:02 102 23 100 12/25/19 07:00 104 25 103/54 (70) 100 12/25/19 06:30 103 26 109/57 (74) 100 12/25/19 06:27 26 112/58 Mechanical Ventilator 100 12/25/19 06:27 26 112/58 Mechanical Ventilator 100 12/25/19 06:27 112/58 12/25/19 06:00 101 25 107/59 (75) 100 12/25/19 05:30 102 27 111/60 (77) 100 12/25/19 05:00 27 104/60 Mechanical Ventilator 100 12/25/19 05:00 27 104/60 Mechanical Ventilator 12/25/19 05:00 104/60 12/25/19 05:00 103 27 104/59 (74) 100 12/25/19 04:30 106 30 102/58 (73) 100 12/25/19 04:00 103 12/25/19 04:00 Mechanical Ventilator 12/25/19 04:00 99.0 109 33 115/62 (79) 100 12/25/19 04:00 30 113/60 Mechanical Ventilator 100 12/25/19 04:00 30 113/60 Mechanical Ventilator 100 12/25/19 04:00 113/60 12/25/19 04:00 100 12/25/19 03:41 106 33 100 12/25/19 03:30 108 33 122/71 (88) 100 12/25/19 03:00 109 31 126/71 (89) 100 12/25/19 03:00 33 125/70 Mechanical Ventilator 100 12/25/19 03:00 33 125/70 Mechanical Ventilator 100 12/25/19 03:00 125/70 12/25/19 02:30 109 33 127/71 (89) 100 12/25/19 02:00 107 33 129/71 (90) 100 12/25/19 02:00 33 131/72 Mechanical Ventilator 100 12/25/19 01:30 105 31 128/75 (92) 100 12/25/19 01:00 103 33 123/72 (89) 100 12/25/19 01:00 31 132/73 Mechanical Ventilator 100 12/25/19 01:00 31 132/73 Mechanical Ventilator 40 12/25/19 01:00 132/73 12/25/19 00:30 103 32 124/69 (87) 100 12/25/19 00:00 103 12/25/19 00:00 100 12/25/19 00:00 32 121/68 Mechanical Ventilator 100 12/25/19 00:00 32 121/68 Mechanical Ventilator 100 12/25/19 00:00 121/68 12/25/19 00:00 Mechanical Ventilator 12/25/19 00:00 99.0 104 32 119/68 (85) 100 12/24/19 23:30 106 29 112/59 (76) 100 12/24/19 23:03 107 24 100 12/24/19 23:00 28 115/65 Mechanical Ventilator 100 12/24/19 23:00 28 115/65 Mechanical Ventilator 100 12/24/19 23:00 115/65 12/24/19 23:00 106 25 111/53 (72) 100 12/24/19 22:30 105 28 136/80 (98) 100 12/24/19 22:00 25 107/61 Mechanical Ventilator 100 12/24/19 22:00 25 107/61 Mechanical Ventilator 100 12/24/19 22:00 107/61 12/24/19 22:00 107 31 106/60 (75) 100 12/24/19 21:30 110 29 108/60 (76) 100 12/24/19 21:15 110 26 112/61 (78) 100 12/24/19 21:00 29 112/61 Mechanical Ventilator 100 12/24/19 21:00 29 112/61 Mechanical Ventilator 100 12/24/19 21:00 112/61 12/24/19 21:00 109 26 116/63 (80) 100 12/24/19 20:45 110 24 113/61 (78) 100 12/24/19 20:30 109 23 114/58 (76) 100 12/24/19 20:00 Mechanical Ventilator 12/24/19 20:00 109 12/24/19 20:00 24 103/55 Mechanical Ventilator 100 12/24/19 20:00 24 103/55 Mechanical Ventilator 12/24/19 20:00 103/55 12/24/19 20:00 98.4 109 25 112/64 (80) 100 12/24/19 20:00 100 12/24/19 19:35 113 20 100 12/24/19 19:30 110 20 115/57 (76) 100 12/24/19 19:15 113 23 119/63 (81) 100 12/24/19 19:00 30 119/53 Mechanical Ventilator 100 12/24/19 19:00 30 119/63 Mechanical Ventilator 100 12/24/19 19:00 119/63 12/24/19 19:00 111 19 109/68 (82) 100 12/24/19 18:30 45 132/67 Mechanical Ventilator 100 12/24/19 18:30 117 34 129/70 (89) 100 12/24/19 18:00 118 36 106/64 (78) 100 12/24/19 18:00 30 106/64 Mechanical Ventilator 70 12/24/19 18:00 35 106/64 Mechanical Ventilator 70 12/24/19 18:00 106/64 12/24/19 17:42 100 12/24/19 17:30 116 34 103/61 (75) 94 12/24/19 17:15 35 117/63 Mechanical Ventilator 70 12/24/19 17:05 30 117/63 Mechanical Ventilator 70 12/24/19 17:00 118 34 113/61 (78) 94 12/24/19 17:00 30 113/61 Mechanical Ventilator 70 12/24/19 17:00 108/71 12/24/19 17:00 35 117/63 Mechanical Ventilator 70 12/24/19 16:56 30 108/61 Mechanical Ventilator 70 12/24/19 16:56 108/61 12/24/19 16:51 88/60 12/24/19 16:30 116 34 89/51 (64) 93 12/24/19 16:00 111 12/24/19 16:00 109 36 132/60 (84) 96 12/24/19 16:00 32 132/60 Mechanical Ventilator 70 12/24/19 16:00 132/60 12/24/19 16:00 32 132/60 Mechanical Ventilator 70 12/24/19 16:00 70 12/24/19 16:00 Mechanical Ventilator 12/24/19 15:30 103 25 123/58 (79) 97 12/24/19 15:15 98 14 128/64 (85) 98 12/24/19 15:00 100 23 130/65 (86) 100 12/24/19 15:00 30 128/64 Mechanical Ventilator 70 12/24/19 15:00 128/64 12/24/19 15:00 30 128/64 Mechanical Ventilator 70 12/24/19 14:59 97 34 70 12/24/19 14:45 98 34 120/62 (81) 99 12/24/19 14:30 97 33 126/60 (82) 99 12/24/19 14:15 94 34 123/61 (81) 100 12/24/19 14:00 94 29 117/59 (78) 100 12/24/19 14:00 30 123/61 Mechanical Ventilator 70 12/24/19 14:00 123/61 12/24/19 14:00 30 123/61 Mechanical Ventilator 70 12/24/19 13:45 94 32 122/60 (80) 99 Intake and Output 12/24/19 12/25/19 19:00 07:00 Intake Total 908.311 ml 926.25 ml Output Total 110 ml 204 ml Balance 798.311 ml 722.25 ml Free Water 110 ml 60 ml IV Total 378.311 ml 446.25 ml Tube Feeding 420 ml 420 ml Output Urine Total 10 ml 4 ml Stool Total 100 ml 200 ml Laboratory Tests Test 12/24/19 22:50 12/25/19 04:10 12/25/19 11:25 Random Vancomycin Level 16.6 ug/mL White Blood Count 34.2 K/UL (4.8-10.8) *H Red Blood Count 2.71 M/UL (4.70-6.10) L Hemoglobin 8.2 G/DL (14.2-18.0) L Hematocrit 25.2 % (42.0-52.0) L Mean Corpuscular Volume 93 FL (80-99) Mean Corpuscular Hemoglobin 30.1 PG (27.0-31.0) Mean Corpuscular Hemoglobin Concent 32.4 G/DL (32.0-36.0) Red Cell Distribution Width 15.6 % (11.6-14.8) H Platelet Count 253 K/UL (150-450) Mean Platelet Volume 7.0 FL (6.5-10.1) Neutrophils (%) (Auto) % (45.0-75.0) Lymphocytes (%) (Auto) % (20.0-45.0) Monocytes (%) (Auto) % (1.0-10.0) Eosinophils (%) (Auto) % (0.0-3.0) Basophils (%) (Auto) % (0.0-2.0) Differential Total Cells Counted 100 Neutrophils % (Manual) 88 % (45-75) H Lymphocytes % (Manual) 6 % (20-45) L Monocytes % (Manual) 6 % (1-10) Eosinophils % (Manual) 0 % (0-3) Basophils % (Manual) 0 % (0-2) Band Neutrophils 0 % (0-8) Platelet Estimate Adequate Platelet Morphology Normal Hypochromasia 2+ Anisocytosis 1+ Spherocytes 1+ Sodium Level 137 MMOL/L (136-145) Potassium Level 3.7 MMOL/L (3.5-5.1) Chloride Level 95 MMOL/L (98-107) L Carbon Dioxide Level 35 MMOL/L (21-32) H Anion Gap 7 mmol/L (5-15) Blood Urea Nitrogen 32 mg/dL (7-18) H Creatinine 2.8 MG/DL (0.55-1.30) H Estimat Glomerular Filtration Rate 23.4 mL/min (>60) Glucose Level 102 MG/DL (74-106) Calcium Level 8.3 MG/DL (8.5-10.1) L Total Bilirubin 0.5 MG/DL (0.2-1.0) Aspartate Amino Transf (AST/SGOT) 53 U/L (15-37) H Alanine Aminotransferase (ALT/SGPT) 43 U/L (12-78) Alkaline Phosphatase 233 U/L (46-116) H Total Protein 7.4 G/DL (6.4-8.2) Albumin 2.2 G/DL (3.4-5.0) L Globulin 5.2 g/dL Albumin/Globulin Ratio 0.4 (1.0-2.7) L Activated Partial Thromboplast Time 28 SEC (23-33) Microbiology Date/Time Source Procedure Growth Status 12/22/19 16:15 Blood Blood Culture - Preliminary NO GROWTH AFTER 48 HOURS Resulted 12/22/19 16:00 Blood Blood Culture - Preliminary NO GROWTH AFTER 48 HOURS Resulted 12/23/19 04:00 Stool Clostridium difficile Toxin Assay - Final Complete 12/23/19 04:00 Indwelling Cath Urine Culture - Final NO GROWTH AFTER 48 HOURS Complete Objective HEAD AND NECK: Orally intubated No JVD LUNGS: Decreased breath sounds. Coarse rhonchi. CARDIOVASCULAR: Tachycardic S1 and S2 with no gallop. ABDOMEN: Soft. EXTREMITIES: 1 plus pitting edema. RFV [place] in place Raul Appiah MD December 25, 2019 13:42
[2019-12-25] MEDS ORDERED: Heparin 25,000u/D5W 500ml 500 ML IV SCH ×3 (14:00→23:00)
--- NOTE | 2019-12-25 14:00 | NUR ---
NURSE NOTES: Patient Levophed increased to 6mcg/min by surgery specialist while patient on hemodialysis. Patient blood pressure dropped to 92/59 upon initiation of hemodialysis. Will continue to monitor and titrate per protocol. Patient repositioned.
[2019-12-25] MEDS: fentaNYL Citrate 2,500 MCG in NS 200 ML IV SCH (14:26)
--- NOTE | 2019-12-25 16:00 | NUR ---
NURSE NOTES: Patient blood pressure 95/51 on Levophed at 6mcg/min. Patient showing sinus tachycardia on the rn cardiac at this time with rate of 118 at this time. Will continue to monitor and titrate per protocol. Patient sedated with RASS score -3 on fentanyl at 150mcg/hr and versed at 3mL/hr. Will continue to titrate as tolerated to maintain RASS of -3. Patient orally intubated with ventilator setting AC 20, tidal volume 500, FiO2 80%, and PEEP 3. Patient tolerating setting with no sign of acute distress. Nasal gastric tube in left Nares remains patent and running Nepro at 35mL/hr at this time with no residual. Rectal tube remains in place. Joe for remains patent, asymptomatic, and draining tiny amount of dark marge urine. right femoral jia catheter with pigtail remains patent, asymptomatic, and pigtail is running Levophed, versed, and propofol. Patient bed in low position with bed alarm on and call light in reach. Patient repositioned and oral care performed. Will continue to monitor.
--- NOTE | 2019-12-25 19:00 | NUR ---
NURSE NOTES: Dr Wilder rounded on the patient. Sedation turned off so Dr Wilder could do his assessment. Sedation left turned off as patient RR remains <35, HR stable at 105, and patient receiving tidal volumes on the ventilator. Will continue to monitor.
--- NOTE | 2019-12-25 19:28 | Consultation ---
Consult Note Consult Note [facility] NEUROLOGY CONSULTATION December 25, [address] Aguayo, I evaluated Mr. Wade Covarrubias and my assessement is as follows. HISTORY: Mr. Wade Covarrubias is a 60-year-old, gentleman, of unknown handedness, who was exposed to his son who had COVID-19 at home. He came into the [facility] emergency room on 11/29/2019 with a 3-day history of shortness of breath a mild cough and a feeling of being unwell. When he was evaluated in the emergency room his SPO2 was 60% on room air. He was started on BiPAP and a chest x-ray was performed the chest x-ray revealed bilateral peripheral infiltrates consistent with a COVID-19 pattern. He was then transferred to the intensive care unit where he desaturated in spite of being on BiPAP and had to be intubated. Since he has been in the ICU he has continued to have respiratory failure, he developed sepsis, he developed renal failure for which he is hemodialysis dependent, and in addition he developed shock liver. He has been on sedation ever since he was intubated and at this time is on fentanyl and midazolam. His nurses had noticed that in the past when the sedation was discontinued for brief periods of time he would respond to painful stimuli with withdrawal. However in the last day or so even when the sedation is discontinued he does not respond in any way other than overbreathing. This consultation was requested to evaluate the patient from a neurological point of view to determine "if he is brain or not, and to determine the degree of brain function at this point in time." PAST HISTORY: Hypertension. FAMILY HISTORY: Nothing significant other than his son having COVID-19 infection. PERSONAL HISTORY: Home: He lives at home with family. Work: Is unclear as to what kind of work he does Habits: There is no history of alcohol tobacco or illicit drug use. ALLERGIES: No known allergies. NEUROLOGIC REVIEW OF SYSTEMS: Unable to perform. PHYSICAL EXAMINATION: GENERAL: He is a well-developed, relatively well-nourished, gentleman, lying in an ICU bed connected to ventilator via an orotracheal tube. VITAL SIGNS: Pulse: 107/minute and regular. Blood Pressure: 99/61 mm of Hg. Respirations: 32/minute -with the patient overbreathing the ventilator setting. Temperature: 98.9 F HEAD: Normocephalic and atraumatic. NECK: No neck rigidity was observed. NEUROLOGIC EXAMINATION: MENTAL STATUS EXAMINATION: The patient was unresponsive even to deep painful stimuli. It should be noted that his fentanyl and midazolam were discontinued for approximately 15 minutes while he was being examined. SPEECH: Could not be tested. LANGUAGE: Could not be tested. CRANIAL NERVE EXAMINATION: II: He did not blink to threat. III, IV, : External ocular movements were present but significantly restricted on oculocephalic eye movements. The pupils were 3 mm in diameter and did not react to light. V-VII: The corneal reflexes were absent bilaterally. VIII: He did not respond to sounds and had no nystagmus. IX-X: The gag reflex was absent on manipulating the endotracheal tube. XI: The sternocleidomastoids and trapezii did not function. XII: The tongue could not be examined adequately. MOTOR SYSTEM: The tone was normal in all 4 extremities. Examination of muscle mass revealed no focal wasting. Examination of power was impossible to perform because even on applying deep painful stimuli no movements were seen. SENSORY EXAMINATION: He did not respond even to deep painful stimuli. COORDINATION: Could not be tested. REFLEXES: 0 biceps, triceps, brachioradialis, knees and ankles. The plantar responses were mute bilaterally. STANCE: Could not be tested. GAIT: Could not be tested. ABNORMAL MOVEMENTS: None DIAGNOSTIC IMPRESSION: 1. Mr. Wade Covarrubias is a 60-year-old, gentleman, of unknown handedness, who was exposed to his son who had COVID-19 at home. He came into the [facility] emergency room on 11/29/2019 with a 3-day history of shortness of breath a mild cough and a feeling of being unwell. 2. He was found to be COVID-19 positive and his disease manifested with respiratory failure, sepsis, renal failure, and hepatic failure. He has been treated for all those problems and until a few days ago when his sedation would be decreased he would respond to uncomfortable stimuli. However in the last few days he has not responded at all to any external stimuli. 3. On neurological examination, at this time, he does not respond to any external stimuli including deep pain. He does have minimal eye movements on oculocephalic maneuvers and in addition breathes at the rate higher than the ventilator setting. He does not demonstrate any signs of cerebral cortical function. Of note is that he has been on sedatives ever since he was hospitalized and those drugs have not been discontinued for any reasonable period of time. 4. The patient's history and neurological examination are most consistent with a severe toxic metabolic encephalopathy related to hypoxia, hepatic dysfunction, renal dysfunction, sepsis, and the mind altering drugs that he has been getting. 5. With regards to the patient being brain , he does not meet criteria for brain as he has brainstem function in the form of oculocephalic eye movements and respiratory drive. 6. With regards to how much cortical function the patient has, it is exceedingly difficult to determine because of the prolonged period that the patient has been on sedative drugs and in addition the other metabolic insults that he is experiencing. RECOMMENDATIONS: 1. Agree with management thus far. 2. An EEG will be ordered to evaluate the patient for the degree and type of cerebral cortical dysfunction. 3. Attempts should be made to minimize mind altering drugs. 4. Continue treatment of other intercurrent medical problems. 5. Depending on the results of the EEG further recommendations will be given. Thank you for entrusting me to take care of Mr. Charly Covarrubias's Neurologic needs. Sincerely, Maxim Wilder M.D., M.S.P.H. Neurologist & Clinical Neurophysiologist Maxim Wilder MD December 25, 2019 19:28
--- NOTE | 2019-12-25 19:30 | NUR ---
HAND-OFF: Report given to DARYA Maldonado.
--- NOTE | 2019-12-25 19:42 | NUR ---
NURSE NOTES: PATIENT ASLEEP STATUS, ON ETT TO VENT AC20/TV500/FIO2 80%/PEEP3, O2 SATURATION OVER 98% NOTED, HR 110'S/MIN ST, NGT TO LEFT NARES, INTACT AND PATENT, ONGOING NEPRO AT 35ML/HR VIA NGT TUBE, KEPT HOB 30 DEGREES AND ASPIRATION PRECAUTION , RECTAL TUBE INTACT, F/C INTACT AND PATENT, ANURIC STATUS, YESI CATHETER W/ PIG TAIL TO RIGHT FEMORAL AND PPL TO RIGHT HAND INTACT AND PATENT, ONGOING LEVOPHED 8MCG/MIN VIA YESI CATH W/ PIG TAIL AND HEPARIN DRIP 18 UNITS/KG/HR VIA RIGHT HAND, LOWER BED POSITION, ON BED ALARM AND LOCKED, KEPT FALL PRECAUTION, WILL CONTINUE TO MONITOR.
[2019-12-25] MEDS: Dyna-Hex 2% Top Sol 2oz TOPIC SCH (20:09)
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
--- NOTE | 2019-12-25 21:13 | NUR ---
NURSE NOTES: FAILED PTT BLOOD DRAW AT THIS TIME DUE TO HARD STICK.
[2019-12-25] MEDS ORDERED: Heparin 5000 units/ml inj IV ONE (23:00)
--- NOTE | 2019-12-25 23:10 | NUR ---
NURSE NOTES: LE; PTT LEVEL 35 NOTED, CHANGED HEPARIN DRIP TO 22 UNITS/KG/HR AND GIVEN HEPARIN 6,000 UNITS BY IVP PER PROTOCOLS.
[2019-12-26] VITALS (58 sets, daily range): BP systolic 77–140; BP diastolic 47–72
--- NOTE | 2019-12-26 00:47 | NUR ---
NURSE NOTES: PATIENT OBTUNDED, NO PAIN OR SOB NOTED AT THIS TIME.
--- NOTE | 2019-12-26 02:31 | NUR ---
NURSE NOTES: ONGOING LEVOPHED 6MCG/MIN, BP 107/61 MMHG, NO DISTRESS NOTED AT THIS TIME.
--- NOTE | 2019-12-26 03:40 | NUR ---
NURSE NOTES: MORNING CARE WAS DONE, RECTAL TUBE INTACT, DARK GREENISH STOOL OUTED.
[2019-12-26 05:42] LABS: HEMATOCRIT 25.5 % (42.0-52.0); HEMOGLOBIN 8.6 G/DL (14.2-18.0); MEAN CORPUSCULAR VOLUME 92 FL (80-99); PLATELET COUNT 326 K/UL (150-450); RED BLOOD COUNT 2.78 M/UL (4.70-6.10); RED CELL DISTRIBUTION WIDTH 15.7 % (11.6-14.8)
[2019-12-26 05:57] LABS: WHITE BLOOD COUNT 29.6 K/UL (4.8-10.8)
[2019-12-26] MEDS ORDERED: Heparin 5000 units/ml inj IV SCH ×3 (06:15→21:15)
[2019-12-26] MEDS ORDERED: Heparin 25,000u/D5W 500ml 500 ML IV SCH ×2 (06:15→13:30)
--- NOTE | 2019-12-26 06:30 | NUR ---
NURSE NOTES: LE: ONGOING HEPARIN DRIP 24UNITS/KG/HR VIA PPL, NO ACUTE DISTRESS NOTED AT THIS SHIFT.
--- NOTE | 2019-12-26 07:04 | NUR ---
HAND-OFF: Report given to DARYA HIGGINBOTHAM.
--- NOTE | 2019-12-26 07:05 | NUR ---
NURSE NOTES: Received patient from Joel RN. Patient is obtunded, sinus tachycardia on the heart monitor, HR 110. Receiving oxygen via ET Tube 8.0 24cm at the lip line, vent settings: AC 20, TV 500, Fio2 80%, PEEP 3. Left NGT is intact and receiving Nepro at 35cc/hr. IV site is Right hand 20g receiving Heparin drip at 24 units/kg/hr, Right Femoral [place] Cath, receiving Levophed at 8mcg/min. Joe catheter is intact and draining, rectal tube is intact and draining. Bed is locked, placed in lowest position, side rails up x3, bed alarm on, head of bed elevated. Will continue to monitor.
--- NOTE | 2019-12-26 07:09 | NUR ---
RD ASSESSMENT & RECOMMENDATIONS SEE CARE ACTIVITY FOR COMPLETE ASSESSMENT DAILY ESTIMATED NEEDS: Needs based on Critical care 68.4kg abw 22-28 kcals/kg 6232-1836 total kcals 1.2-2 g protein/kg 82-137 g total protein 25-30 mL/kg 4864-0845 total fluid mLs NUTRITION DIAGNOSIS: Altered nutrition related lab values r/t clinical status as evidenced by mildly elev BG (131, 151-> improved), elev T bili-> now wnl, elev LFTs, elev WBC (29.6*), elev creat (2.8) now on HD, currently afebrile, critical ABG, now s/p intubation on pressor support, NGT feeds.. CURRENT TF:Nepro @35ml/hr x24 hrs ENTERAL NUTRITION RECOMMENDATIONS: Nepro @35ml/hr x24 hrs + Prosource BID to provide 840ml, 1512 kcal, 68g + 22g pro, 611ml free H2O - WITH HEMODYNAMIC STABILITY, maintain current TF - When Tolerating TF at goal of 35ml/hr and Prosource in stock, rec to add Prosource BID to better meet protein needs. Will provide additional 22g pro. - Flush per MD/ HOB over 30 degrees. -> Without hemodynamic stability, rec trophic feeds to maintain gut integrity, rec Nepro @5-10ml/hr as able. ADDITIONAL RECOMMENDATIONS: 1) Monitor hemodynamic stability: on Levo @6mcg 2) Wound care: add CLAUDIO BID 3) NISS w/ TF (elev BGs), now <150. 4) Maintain calibrated bed scale wts 5) Monitor for continuity of HD: last HD 12/24 6) HOLD TF WHILE PT ON PRONE POSITION TO PREVENT ASPIRATION .
[2019-12-26] MEDS: Pantoprazole Inj IVP SCH (08:53)
[2019-12-26] MEDS: Renvela 800mg Pkt NG SCH ×3 (08:53→17:48)
[2019-12-26] MEDS: Nephrovite tab (Rena-Vite) NG SCH (08:54)
[2019-12-26] MEDS: Midodrine 10mg tab ORAL SCH ×3 (08:54→17:48)
[2019-12-26] MEDS ORDERED: Vancomycin 500mg/D5W 110ml IVPB ONE ×2 (09:00)
--- NOTE | 2019-12-26 09:12 | General Progress Note ---
Assessment/Plan Status: unchanged Assessment/Plan: 59-year-old male with PMH of HTN presents with acute respiratory distress. COVID positive, was intubated on 12/03. NEURO #Acute severe toxic metabolic encephalopathy, multifactorial, 2/2 hypoxia, hepatic dysfunction, renal dysfunction, sepsis -per nurse, pt unresponsive and tachypneic off sedation -unable to obtain CT head 2/2 COVID -Neurology, Dr. Wilder, following: minimal eye movements, breaths over vent, no signs of cerebral cortical function, will obtain EEG for further recs -EEG today RESP/ID #Acute Hypoxic Respiratory Failure 2/2 COVID +, HCAP +--> WBC peak on 12/21, now downtrending #Septic Shock #PTX/Pneumomediastinum--> to high risk for intervention #diarrhea #Tachypnea likely 2/2 PE -s/p Intubation 12/03 -Appreciate Pulm/ID --> Vent Management -Fentanyl for Sedation 2/2 elevated TG -Pressor support, maintain MAP > 65 -ABG per pulm -Patient is s/p IL-6 inhibitor and Plaquenil -s/p Vanc (12/09-12/15), cefepime (12/09-12/15), flagyl (12/09-12/15) -Trend predictive markers Q3 days; CRP, Pro-Calcitonin, Ferritin, Ddimer -Surgery to monitor PTX -Continue [employer] AB per ID, Cx per ID (currently on meropenem, vancomycin, fluconazole, PO vanco for possible c diff) -cont heparin ggt for presumed PE given tachypnea NEPHRO #ARF now on HD -12/04: Right femoral HD cath placed -Continue HD per Nephro GI #Shock Liver - resolved -Appreciate GI recs -Liver enzymes also likely elevated 2/2 COVID + state CV #Tachycardia -s/p AFib now converted to sinus, no further episodes of afib -echo pending COVID -Appreciate Cardio management DVT/GI ppx, Tube Feeding, FULL CODE Time spent on encounter: 35 mins, 25 mins spent on coordination of care w/RN, Pulm, ID, Nephro and Neurology. Additional 32 mins spent on discussion w/pt's Lizzy yuen, on POC, as well as advance life care planning, code status. Time of note doesn't reflect time of encounter. Subjective Allergies: Coded Allergies: No Known Allergies (Unverified , 11/29/19) Subjective Follow up for acute hypoxic resp failure, COVID19 positive, intubation/sedated, multi-organ failure. Remains intubated on 80% FiO2, PEEP 3, on pressure support levo 8. Per nurse, pt off sedation since 7 PM yesterday. Unable to obtain ROS due to clinical picture. Objective Last 24 Hour Vital Signs Date Time Temp Pulse Resp B/P (MAP) Pulse Ox O2 Delivery O2 Flow Rate FiO2 12/26/19 08:00 111 25 102/53 (69) 100 12/26/19 08:00 80 12/26/19 08:00 Mechanical Ventilator 12/26/19 07:41 112 12/26/19 07:30 112 28 93/55 (68) 100 12/26/19 07:00 112 31 80 12/26/19 07:00 97/57 12/26/19 07:00 110 19 107/56 (73) 100 12/26/19 06:45 110 28 104/56 (72) 100 12/26/19 06:30 110 25 97/57 (70) 100 12/26/19 06:15 111 27 93/54 (67) 100 12/26/19 06:00 82/54 12/26/19 06:00 112 26 82/54 (63) 100 12/26/19 05:30 116 24 88/52 (64) 100 12/26/19 05:22 120 22 92/47 (62) 100 12/26/19 05:18 123 24 85/51 (62) 100 12/26/19 05:00 124 38 99/53 (68) 98 12/26/19 05:00 99/53 12/26/19 04:30 121 39 114/48 (70) 97 12/26/19 04:00 114/52 12/26/19 04:00 98.8 120 38 114/57 (76) 97 12/26/19 04:00 120 12/26/19 04:00 Mechanical Ventilator 12/26/19 04:00 80 12/26/19 03:32 109 30 80 12/26/19 03:30 115 39 110/60 (77) 98 12/26/19 03:12 111/67 12/26/19 03:00 111/67 12/26/19 03:00 103 38 111/67 (82) 99 12/26/19 02:30 110 24 107/61 (76) 100 12/26/19 02:00 109 22 115/60 (78) 100 12/26/19 02:00 115/60 12/26/19 01:45 115 24 114/62 (79) 100 12/26/19 01:36 120 28 91/52 (65) 97 12/26/19 01:30 120 32 77/55 (62) 97 12/26/19 01:00 125/62 12/26/19 01:00 119 36 125/62 (83) 99 12/26/19 00:30 112 14 108/61 (77) 100 12/26/19 00:00 80 12/26/19 00:00 103/57 12/26/19 00:00 Mechanical Ventilator 12/26/19 00:00 112 12/26/19 00:00 98.4 112 17 103/57 (72) 100 12/25/19 23:30 113 16 104/52 (69) 100 12/25/19 23:03 113 30 80 12/25/19 23:00 99/62 12/25/19 23:00 114 18 99/62 (74) 100 12/25/19 22:30 118 29 94/52 (66) 97 12/25/19 22:00 116 29 104/60 (75) 97 12/25/19 22:00 104/60 12/25/19 21:30 116 23 107/57 (74) 97 12/25/19 21:00 110 22 92/50 (64) 100 12/25/19 21:00 92/50 12/25/19 20:30 115 32 100/56 (71) 95 12/25/19 20:00 Mechanical Ventilator 12/25/19 20:00 97.8 109 18 100/55 (70) 94 12/25/19 20:00 100/55 12/25/19 20:00 80 12/25/19 19:39 109 12/25/19 19:30 109 30 114/61 (78) 100 12/25/19 19:15 108 35 106/61 (76) 100 12/25/19 19:02 110 36 80 12/25/19 19:00 108 34 111/56 (74) 100 12/25/19 19:00 31 106/61 Mechanical Ventilator 80 12/25/19 19:00 31 106/61 Mechanical Ventilator 80 12/25/19 19:00 106/61 12/25/19 18:45 102 24 97/55 (69) 100 12/25/19 18:30 107 32 99/61 (74) 100 12/25/19 18:15 113 31 102/54 (70) 100 12/25/19 18:00 116 28 98/55 (69) 100 12/25/19 18:00 28 102/54 Mechanical Ventilator 80 12/25/19 18:00 28 102/54 Mechanical Ventilator 80 12/25/19 18:00 102/54 12/25/19 17:45 112 21 92/61 (71) 100 12/25/19 17:30 113 22 103/59 (74) 100 12/25/19 17:15 118 35 111/61 (78) 99 12/25/19 17:00 119 36 92/53 (66) 98 12/25/19 17:00 35 92/53 Mechanical Ventilator 80 12/25/19 17:00 34 92/53 Mechanical Ventilator 80 12/25/19 17:00 92/53 12/25/19 16:45 119 36 97/51 (66) 96 12/25/19 16:31 35 95/51 Mechanical Ventilator 80 12/25/19 16:30 35 97/51 Mechanical Ventilator 80 12/25/19 16:30 95/51 12/25/19 16:30 118 34 92/56 (68) 96 12/25/19 16:15 120 32 95/51 (66) 96 12/25/19 16:00 112 12/25/19 16:00 Mechanical Ventilator 12/25/19 16:00 34 123/55 Mechanical Ventilator 80 12/25/19 16:00 34 95/51 Mechanical Ventilator 80 12/25/19 16:00 123/55 12/25/19 16:00 98.9 118 34 93/56 (68) 97 12/25/19 16:00 80 12/25/19 15:45 114 32 123/55 (77) 95 12/25/19 15:30 45 117/62 Mechanical Ventilator 80 12/25/19 15:30 113 35 117/62 (80) 93 12/25/19 15:15 115 34 98/61 (73) 97 12/25/19 15:01 113 36 80 12/25/19 15:00 115 36 106/62 (77) 95 12/25/19 15:00 35 98/61 Mechanical Ventilator 80 12/25/19 15:00 35 98/61 Mechanical Ventilator 80 12/25/19 15:00 98/61 12/25/19 14:45 111 36 111/63 (79) 95 12/25/19 14:30 105 36 116/67 (83) 90 12/25/19 14:26 35 136/66 Mechanical Ventilator 80 12/25/19 14:25 36 111/63 Mechanical Ventilator 80 12/25/19 14:15 100 32 136/66 (89) 94 12/25/19 14:00 108 35 118/65 (82) 95 12/25/19 14:00 35 136/66 Mechanical Ventilator 80 12/25/19 14:00 35 136/66 Mechanical Ventilator 80 12/25/19 14:00 136/66 12/25/19 13:45 107 31 119/64 (82) 92 12/25/19 13:30 102 36 110/55 (73) 97 12/25/19 13:26 102 37 121/61 (81) 93 12/25/19 13:15 107 34 92/59 (70) 95 12/25/19 13:00 107 33 104/57 (73) 95 12/25/19 13:00 34 92/59 Mechanical Ventilator 80 12/25/19 13:00 34 92/69 Mechanical Ventilator 80 12/25/19 13:00 92/59 12/25/19 12:45 108 33 103/55 (71) 95 12/25/19 12:30 108 32 107/55 (72) 94 12/25/19 12:15 107 32 105/54 (71) 94 12/25/19 12:00 80 12/25/19 12:00 98.6 108 32 108/55 (72) 93 12/25/19 12:00 33 105/54 80 12/25/19 12:00 33 105/54 Mechanical Ventilator 80 12/25/19 12:00 105/54 12/25/19 12:00 Mechanical Ventilator 12/25/19 12:00 106 12/25/19 11:45 108 31 100/55 (70) 93 12/25/19 11:30 106 30 105/52 (69) 95 12/25/19 11:15 106 31 110/54 (72) 96 12/25/19 11:00 106 28 102/57 (72) 100 12/25/19 11:00 31 110/54 Mechanical Ventilator 80 12/25/19 11:00 31 110/54 Mechanical Ventilator 80 12/25/19 11:00 110/54 12/25/19 10:52 106 29 80 12/25/19 10:45 104 27 104/56 (72) 100 12/25/19 10:30 102 26 108/59 (75) 100 12/25/19 10:15 103 27 108/60 (76) 100 12/25/19 10:00 102 28 112/60 (77) 100 12/25/19 10:00 27 108/60 Mechanical Ventilator 100 12/25/19 10:00 33 108/60 Mechanical Ventilator 100 12/25/19 10:00 108/60 12/25/19 09:45 104 27 112/58 (76) 100 12/25/19 09:30 105 26 103/61 (75) 100 12/25/19 09:15 106 27 119/60 (79) 100 Intake and Output 12/25/19 12/26/19 19:00 07:00 Intake Total 1021.760 ml 1095.056 ml Output Total 4200 ml 55 ml Balance -3178.240 ml 1040.056 ml Free Water 60 ml IV Total 541.760 ml 675.056 ml Tube Feeding 420 ml 420 ml Output Urine Total 5 ml Stool Total 200 ml 50 ml Hemodialysis UF 4000 ml Laboratory Tests 12/25/19 11:25: Activated Partial Thromboplast Time 28 12/25/19 21:40: Activated Partial Thromboplast Time 35H 12/26/19 04:48: Activated Partial Thromboplast Time 57H, White Blood Count 29.6*H, Red Blood Count 2.78L, Hemoglobin 8.6L, Hematocrit 25.5L, Mean Corpuscular Volume 92, Mean Corpuscular Hemoglobin 30.8, Mean Corpuscular Hemoglobin Concent 33.6, Red Cell Distribution Width 15.7H, Platelet Count 326, Mean Platelet Volume 6.6, Neutrophils (%) (Auto) , Lymphocytes (%) (Auto) , Monocytes (%) (Auto) , Eosinophils (%) (Auto) , Basophils (%) (Auto) , Differential Total Cells Counted 100, Neutrophils % (Manual) 94H, Lymphocytes % (Manual) 2L, Monocytes % (Manual) 4, Eosinophils % (Manual) 0, Basophils % (Manual) 0, Band Neutrophils 0 , Platelet Estimate Adequate, Platelet Morphology Normal, Hypochromasia 3+, Anisocytosis 1+, Random Vancomycin Level 17.6 Height (Feet): 5 Height (Inches): 6.00 Weight (Pounds): 148 Objective General Appearance: intubated, OG tube in place, in supine position Cardiovascular: sinus tach on tele, HR low 100's Respiratory/Chest: ETT in place, equal rise in lungs b/l Abdomen: non distended Ext: no edema noted Neuro: unable to perform, however per nurse pt was showing signs of gag reflex this AM Theodore Aguayo M.D. December 26, 2019 09:12
--- NOTE | 2019-12-26 09:27 | NUR ---
NURSE NOTES: Gave medications as prescribed, no adverse reaction noted. Axillary temperature read 99.9 Degrees Fahrenheit, placed ice packs on patient to decrease temperature. Oral care given, oral secretion thick and clear, approximately 5cc excreted. ET tube suctioning done, no output. Turned and repositioned patient.
--- NOTE | 2019-12-26 09:30 | Urology Progress Note ---
Assessment/Plan Status: unchanged Assessment/Plan: 1. Phimosis. 2. Retention. 3. Hematuria. 4. Pyuria. 5. Proteinuria. 6. Acute kidney injury. 7. Meatal stenosis. monitor clinically maintain barnes, placed 12/04 hand irrigate PRN monitor urine output and renal fxn consider renal imaging abx as ordered HD per nephrology f/u on blood cx Subjective Allergies: Coded Allergies: No Known Allergies (Unverified , 11/29/19) Subjective remains on vent, still with minimal urine output, HD Objective Last 24 Hour Vital Signs Date Time Temp Pulse Resp B/P (MAP) Pulse Ox O2 Delivery O2 Flow Rate FiO2 12/26/19 09:00 113 29 99/51 (67) 100 12/26/19 08:30 99.9 112 28 85/53 (64) 100 12/26/19 08:00 111 25 102/53 (69) 100 12/26/19 08:00 80 12/26/19 08:00 Mechanical Ventilator 12/26/19 07:41 112 12/26/19 07:30 112 28 93/55 (68) 100 12/26/19 07:00 112 31 80 12/26/19 07:00 97/57 12/26/19 07:00 110 19 107/56 (73) 100 12/26/19 06:45 110 28 104/56 (72) 100 12/26/19 06:30 110 25 97/57 (70) 100 12/26/19 06:15 111 27 93/54 (67) 100 12/26/19 06:00 82/54 12/26/19 06:00 112 26 82/54 (63) 100 12/26/19 05:30 116 24 88/52 (64) 100 12/26/19 05:22 120 22 92/47 (62) 100 12/26/19 05:18 123 24 85/51 (62) 100 12/26/19 05:00 124 38 99/53 (68) 98 12/26/19 05:00 99/53 12/26/19 04:30 121 39 114/48 (70) 97 12/26/19 04:00 114/52 12/26/19 04:00 98.8 120 38 114/57 (76) 97 12/26/19 04:00 120 12/26/19 04:00 Mechanical Ventilator 12/26/19 04:00 80 12/26/19 03:32 109 30 80 12/26/19 03:30 115 39 110/60 (77) 98 12/26/19 03:12 111/67 12/26/19 03:00 111/67 12/26/19 03:00 103 38 111/67 (82) 99 12/26/19 02:30 110 24 107/61 (76) 100 12/26/19 02:00 109 22 115/60 (78) 100 12/26/19 02:00 115/60 12/26/19 01:45 115 24 114/62 (79) 100 12/26/19 01:36 120 28 91/52 (65) 97 12/26/19 01:30 120 32 77/55 (62) 97 12/26/19 01:00 125/62 12/26/19 01:00 119 36 125/62 (83) 99 12/26/19 00:30 112 14 108/61 (77) 100 12/26/19 00:00 80 12/26/19 00:00 103/57 12/26/19 00:00 Mechanical Ventilator 12/26/19 00:00 112 12/26/19 00:00 98.4 112 17 103/57 (72) 100 12/25/19 23:30 113 16 104/52 (69) 100 12/25/19 23:03 113 30 80 12/25/19 23:00 99/62 12/25/19 23:00 114 18 99/62 (74) 100 12/25/19 22:30 118 29 94/52 (66) 97 12/25/19 22:00 116 29 104/60 (75) 97 12/25/19 22:00 104/60 12/25/19 21:30 116 23 107/57 (74) 97 12/25/19 21:00 110 22 92/50 (64) 100 12/25/19 21:00 92/50 12/25/19 20:30 115 32 100/56 (71) 95 12/25/19 20:00 Mechanical Ventilator 12/25/19 20:00 97.8 109 18 100/55 (70) 94 12/25/19 20:00 100/55 12/25/19 20:00 80 12/25/19 19:39 109 12/25/19 19:30 109 30 114/61 (78) 100 12/25/19 19:15 108 35 106/61 (76) 100 12/25/19 19:02 110 36 80 12/25/19 19:00 108 34 111/56 (74) 100 12/25/19 19:00 31 106/61 Mechanical Ventilator 80 12/25/19 19:00 31 106/61 Mechanical Ventilator 80 12/25/19 19:00 106/61 12/25/19 18:45 102 24 97/55 (69) 100 12/25/19 18:30 107 32 99/61 (74) 100 12/25/19 18:15 113 31 102/54 (70) 100 12/25/19 18:00 116 28 98/55 (69) 100 12/25/19 18:00 28 102/54 Mechanical Ventilator 80 12/25/19 18:00 28 102/54 Mechanical Ventilator 80 12/25/19 18:00 102/54 12/25/19 17:45 112 21 92/61 (71) 100 12/25/19 17:30 113 22 103/59 (74) 100 12/25/19 17:15 118 35 111/61 (78) 99 12/25/19 17:00 119 36 92/53 (66) 98 12/25/19 17:00 35 92/53 Mechanical Ventilator 80 12/25/19 17:00 34 92/53 Mechanical Ventilator 80 12/25/19 17:00 92/53 12/25/19 16:45 119 36 97/51 (66) 96 12/25/19 16:31 35 95/51 Mechanical Ventilator 80 12/25/19 16:30 35 97/51 Mechanical Ventilator 80 12/25/19 16:30 95/51 12/25/19 16:30 118 34 92/56 (68) 96 12/25/19 16:15 120 32 95/51 (66) 96 12/25/19 16:00 112 12/25/19 16:00 Mechanical Ventilator 12/25/19 16:00 34 123/55 Mechanical Ventilator 80 12/25/19 16:00 34 95/51 Mechanical Ventilator 80 12/25/19 16:00 123/55 12/25/19 16:00 98.9 118 34 93/56 (68) 97 5/13/20 16:00 80 12/25/19 15:45 114 32 123/55 (77) 95 12/25/19 15:30 45 117/62 Mechanical Ventilator 80 12/25/19 15:30 113 35 117/62 (80) 93 12/25/19 15:15 115 34 98/61 (73) 97 12/25/19 15:01 113 36 80 12/25/19 15:00 115 36 106/62 (77) 95 12/25/19 15:00 35 98/61 Mechanical Ventilator 80 12/25/19 15:00 35 98/61 Mechanical Ventilator 80 12/25/19 15:00 98/61 12/25/19 14:45 111 36 111/63 (79) 95 12/25/19 14:30 105 36 116/67 (83) 90 12/25/19 14:26 35 136/66 Mechanical Ventilator 80 12/25/19 14:25 36 111/63 Mechanical Ventilator 80 12/25/19 14:15 100 32 136/66 (89) 94 12/25/19 14:00 108 35 118/65 (82) 95 12/25/19 14:00 35 136/66 Mechanical Ventilator 80 12/25/19 14:00 35 136/66 Mechanical Ventilator 80 12/25/19 14:00 136/66 12/25/19 13:45 107 31 119/64 (82) 92 12/25/19 13:30 102 36 110/55 (73) 97 12/25/19 13:26 102 37 121/61 (81) 93 12/25/19 13:15 107 34 92/59 (70) 95 12/25/19 13:00 107 33 104/57 (73) 95 12/25/19 13:00 34 92/59 Mechanical Ventilator 80 12/25/19 13:00 34 92/69 Mechanical Ventilator 80 12/25/19 13:00 92/59 12/25/19 12:45 108 33 103/55 (71) 95 12/25/19 12:30 108 32 107/55 (72) 94 12/25/19 12:15 107 32 105/54 (71) 94 12/25/19 12:00 80 12/25/19 12:00 98.6 108 32 108/55 (72) 93 12/25/19 12:00 33 105/54 80 12/25/19 12:00 33 105/54 Mechanical Ventilator 80 12/25/19 12:00 105/54 12/25/19 12:00 Mechanical Ventilator 12/25/19 12:00 106 12/25/19 11:45 108 31 100/55 (70) 93 12/25/19 11:30 106 30 105/52 (69) 95 12/25/19 11:15 106 31 110/54 (72) 96 12/25/19 11:00 106 28 102/57 (72) 100 12/25/19 11:00 31 110/54 Mechanical Ventilator 80 12/25/19 11:00 31 110/54 Mechanical Ventilator 80 12/25/19 11:00 110/54 12/25/19 10:52 106 29 80 12/25/19 10:45 104 27 104/56 (72) 100 12/25/19 10:30 102 26 108/59 (75) 100 12/25/19 10:15 103 27 108/60 (76) 100 12/25/19 10:00 102 28 112/60 (77) 100 12/25/19 10:00 27 108/60 Mechanical Ventilator 100 12/25/19 10:00 33 108/60 Mechanical Ventilator 100 12/25/19 10:00 108/60 12/25/19 09:45 104 27 112/58 (76) 100 12/25/19 09:30 105 26 103/61 (75) 100 Intake and Output 12/25/19 12/26/19 19:00 07:00 Intake Total 1021.760 ml 1095.056 ml Output Total 4200 ml 55 ml Balance -3178.240 ml 1040.056 ml Free Water 60 ml IV Total 541.760 ml 675.056 ml Tube Feeding 420 ml 420 ml Output Urine Total 5 ml Stool Total 200 ml 50 ml Hemodialysis UF 4000 ml Microbiology Date/Time Source Procedure Growth Status 12/22/19 16:15 Blood Blood Culture - Preliminary NO GROWTH AFTER 72 HOURS Resulted 12/16/19 16:00 Sputum Gram Stain - Final Complete 12/16/19 16:00 Sputum Sputum Culture - Final NORMAL UPPER RESPIRATORY ALISIA PRESENT Complete 12/23/19 04:00 Stool Clostridium difficile Toxin Assay - Final Complete 12/23/19 04:00 Indwelling Cath Urine Culture - Final NO GROWTH AFTER 48 HOURS Complete Current Medications Medications (Trade) Dose Ordered Sig/Vicki Route PRN Reason Start Time Stop Time Status Last Admin Dose Admin Acetaminophen (Tylenol) 650 mg Q4H PRN NG Temp >100.5 12/06/19 14:15 01/05/20 14:14 12/23/19 00:31 Acetaminophen (Tylenol) 650 mg Q4H PRN RECTAL Mild Pain (Pain Scale 1-3) 12/04/19 11:45 01/03/20 11:44 12/06/19 19:17 Chlorhexidine Gluconate (Arely-Hex 2%) 1 applic DAILY@2000 TOPIC 12/05/19 20:00 03/04/20 19:59 12/25/19 20:09 Dextrose (Dextrose 50%) 25 ml Q30M PRN IV Hypoglycemia 11/29/19 14:15 02/27/20 14:14 Dextrose (Dextrose 50%) 50 ml Q30M PRN IV Hypoglycemia 11/29/19 14:15 02/27/20 14:14 Fentanyl Citrate 2500 mcg/Sodium Chloride 250 ml @ 0 mls/hr Q24H IV 12/24/19 16:30 12/31/19 16:29 12/25/19 14:26 Folic Acid (Folate) 1 mg DAILY NG 12/18/19 09:00 01/17/20 08:59 12/26/19 08:54 Heparin Sodium/ Dextrose 500 ml @ 34.836 mls/ hr ADJUST PER PROTOCOL IV 12/26/19 06:15 01/25/20 06:14 12/26/19 06:20 Hydralazine HCl (Apresoline) 10 mg Q4H PRN IV For High Blood Pressure 11/29/19 15:15 02/27/20 15:14 Loperamide HCl (Imodium) 2 mg Q6H PRN NG Diarrhea 12/12/19 12:45 01/11/20 12:44 Meropenem 500 mg/ Sodium Chloride 50 ml @ 100 mls/hr Q24H IVPB 12/24/19 21:30 12/29/19 21:29 12/25/19 21:09 Micafungin Sodium 100 mg/Sodium Chloride 100 ml @ 100 mls/hr Q24H IVPB 12/24/19 22:00 12/31/19 21:59 12/25/19 22:01 Midazolam HCl 100 ml @ 0 mls/hr Q24H PRN IV Restlessness 12/24/19 16:30 12/31/19 16:29 12/25/19 16:31 Midodrine (Pro-Amatine) 10 mg THREE TIMES A DAY ORAL 12/12/19 13:00 03/11/20 12:59 12/26/19 08:54 Norepinephrine Bitartrate 8 mg/ Dextrose 250 ml @ 0 mls/hr Q24H IV 12/18/19 09:00 01/17/20 08:59 12/26/19 03:12 Ondansetron HCl (Zofran) 4 mg Q6H PRN IVP Nausea & Vomiting 11/29/19 14:15 12/29/19 14:14 Pantoprazole (Protonix) 40 mg DAILY IVP 11/30/19 12:15 12/30/19 12:14 12/26/19 08:53 Sevelamer Carbonate (Renvela) 800 mg THREE TIMES A DAY NG 12/22/19 13:00 03/21/20 12:59 12/26/19 08:53 Vancomycin HCl (Vanco rx to dose) 1 ea DAILY PRN MISC Per rx protocol 12/08/19 19:30 01/07/20 19:29 Vancomycin HCl 500 mg/Dextrose 110 ml @ 110 mls/hr ONCE ONCE IVPB 12/26/19 09:00 12/26/19 09:59 12/26/19 08:53 Vitamin B Complex/ Vit C/Folic Acid (Nephrovite) 1 tab DAILY NG 12/16/19 09:00 01/15/20 08:59 12/26/19 08:54 Laboratory Tests 12/25/19 11:25: Activated Partial Thromboplast Time 28 12/25/19 21:40: Activated Partial Thromboplast Time 35H 12/26/19 04:48: Activated Partial Thromboplast Time 57H, White Blood Count 29.6*H, Red Blood Count 2.78L, Hemoglobin 8.6L, Hematocrit 25.5L, Mean Corpuscular Volume 92, Mean Corpuscular Hemoglobin 30.8, Mean Corpuscular Hemoglobin Concent 33.6, Red Cell Distribution Width 15.7H, Platelet Count 326, Mean Platelet Volume 6.6, Neutrophils (%) (Auto) , Lymphocytes (%) (Auto) , Monocytes (%) (Auto) , Eosinophils (%) (Auto) , Basophils (%) (Auto) , Differential Total Cells Counted 100, Neutrophils % (Manual) 94H, Lymphocytes % (Manual) 2L, Monocytes % (Manual) 4, Eosinophils % (Manual) 0, Basophils % (Manual) 0, Band Neutrophils 0 , Platelet Estimate Adequate, Platelet Morphology Normal, Hypochromasia 3+, Anisocytosis 1+, Random Vancomycin Level 17.6 Height (Feet): 5 Height (Inches): 6.00 Weight (Pounds): 148 Objective stable no bleeding at prepuce barnes indwelling, marge urine Kai Berger MD December 26, 2019 09:30
--- NOTE | 2019-12-26 10:20 | General Progress Note ---
Assessment/Plan Problem List: (1) Elevated LFTs ICD Codes: R79.89 - Other specified abnormal findings of blood chemistry SNOMED: 738902137, 894544232 (2) HTN (hypertension) ICD Codes: I10 - Essential (primary) hypertension SNOMED: 49911171 (3) Suspected COVID-19 virus infection ICD Codes: R68.89 - Other general symptoms and signs SNOMED: 727899661 (4) Pneumonia ICD Codes: J18.9 - Pneumonia, unspecified organism SNOMED: 473706464 (5) Respiratory distress ICD Codes: R06.03 - Acute respiratory distress SNOMED: 053370259 (6) Pneumomediastinum ICD Codes: J98.2 - Interstitial emphysema SNOMED: 67055172 (7) COVID-19 ICD Codes: U07.1 - COVID-19 SNOMED: 314930524 (8) Hypotension ICD Codes: I95.9 - Hypotension, unspecified SNOMED: 49548839 Status: unchanged Assessment/Plan: NGTF rectal tube in place elevated LFTS most likely due to shock liver>>> improving repeat labs in am hepatitis panel>>>Neg fu nephrology recent labs and notes reviewed D/W the nurse Subjective ROS Limited/Unobtainable: No Allergies: Coded Allergies: No Known Allergies (Unverified , 11/29/19) Objective Last 24 Hour Vital Signs Date Time Temp Pulse Resp B/P (MAP) Pulse Ox O2 Delivery O2 Flow Rate FiO2 12/26/19 09:30 118 37 124/57 (79) 100 12/26/19 09:00 99/51 12/26/19 09:00 113 29 99/51 (67) 100 12/26/19 08:30 99.9 112 28 85/53 (64) 100 12/26/19 08:00 111 25 102/53 (69) 100 12/26/19 08:00 80 12/26/19 08:00 102/53 12/26/19 08:00 Mechanical Ventilator 12/26/19 07:41 112 12/26/19 07:30 112 28 93/55 (68) 100 12/26/19 07:00 112 31 80 12/26/19 07:00 97/57 12/26/19 07:00 110 19 107/56 (73) 100 12/26/19 06:45 110 28 104/56 (72) 100 12/26/19 06:30 110 25 97/57 (70) 100 12/26/19 06:15 111 27 93/54 (67) 100 12/26/19 06:00 82/54 12/26/19 06:00 112 26 82/54 (63) 100 12/26/19 05:30 116 24 88/52 (64) 100 12/26/19 05:22 120 22 92/47 (62) 100 12/26/19 05:18 123 24 85/51 (62) 100 12/26/19 05:00 124 38 99/53 (68) 98 12/26/19 05:00 99/53 12/26/19 04:30 121 39 114/48 (70) 97 12/26/19 04:00 114/52 12/26/19 04:00 98.8 120 38 114/57 (76) 97 12/26/19 04:00 120 12/26/19 04:00 Mechanical Ventilator 12/26/19 04:00 80 12/26/19 03:32 109 30 80 12/26/19 03:30 115 39 110/60 (77) 98 12/26/19 03:12 111/67 12/26/19 03:00 111/67 12/26/19 03:00 103 38 111/67 (82) 99 12/26/19 02:30 110 24 107/61 (76) 100 12/26/19 02:00 109 22 115/60 (78) 100 12/26/19 02:00 115/60 12/26/19 01:45 115 24 114/62 (79) 100 12/26/19 01:36 120 28 91/52 (65) 97 12/26/19 01:30 120 32 77/55 (62) 97 12/26/19 01:00 125/62 12/26/19 01:00 119 36 125/62 (83) 99 12/26/19 00:30 112 14 108/61 (77) 100 12/26/19 00:00 80 12/26/19 00:00 103/57 12/26/19 00:00 Mechanical Ventilator 12/26/19 00:00 112 12/26/19 00:00 98.4 112 17 103/57 (72) 100 12/25/19 23:30 113 16 104/52 (69) 100 12/25/19 23:03 113 30 80 12/25/19 23:00 99/62 12/25/19 23:00 114 18 99/62 (74) 100 12/25/19 22:30 118 29 94/52 (66) 97 12/25/19 22:00 116 29 104/60 (75) 97 12/25/19 22:00 104/60 12/25/19 21:30 116 23 107/57 (74) 97 12/25/19 21:00 110 22 92/50 (64) 100 12/25/19 21:00 92/50 12/25/19 20:30 115 32 100/56 (71) 95 12/25/19 20:00 Mechanical Ventilator 12/25/19 20:00 97.8 109 18 100/55 (70) 94 12/25/19 20:00 100/55 12/25/19 20:00 80 12/25/19 19:39 109 12/25/19 19:30 109 30 114/61 (78) 100 12/25/19 19:15 108 35 106/61 (76) 100 12/25/19 19:02 110 36 80 12/25/19 19:00 108 34 111/56 (74) 100 12/25/19 19:00 31 106/61 Mechanical Ventilator 80 12/25/19 19:00 31 106/61 Mechanical Ventilator 80 12/25/19 19:00 106/61 12/25/19 18:45 102 24 97/55 (69) 100 12/25/19 18:30 107 32 99/61 (74) 100 12/25/19 18:15 113 31 102/54 (70) 100 12/25/19 18:00 116 28 98/55 (69) 100 12/25/19 18:00 28 102/54 Mechanical Ventilator 80 12/25/19 18:00 28 102/54 Mechanical Ventilator 80 12/25/19 18:00 102/54 12/25/19 17:45 112 21 92/61 (71) 100 12/25/19 17:30 113 22 103/59 (74) 100 12/25/19 17:15 118 35 111/61 (78) 99 12/25/19 17:00 119 36 92/53 (66) 98 5/13/20 17:00 35 92/53 Mechanical Ventilator 80 12/25/19 17:00 34 92/53 Mechanical Ventilator 80 12/25/19 17:00 92/53 12/25/19 16:45 119 36 97/51 (66) 96 12/25/19 16:31 35 95/51 Mechanical Ventilator 80 12/25/19 16:30 35 97/51 Mechanical Ventilator 80 12/25/19 16:30 95/51 12/25/19 16:30 118 34 92/56 (68) 96 12/25/19 16:15 120 32 95/51 (66) 96 12/25/19 16:00 112 12/25/19 16:00 Mechanical Ventilator 12/25/19 16:00 34 123/55 Mechanical Ventilator 80 12/25/19 16:00 34 95/51 Mechanical Ventilator 80 12/25/19 16:00 123/55 12/25/19 16:00 98.9 118 34 93/56 (68) 97 12/25/19 16:00 80 12/25/19 15:45 114 32 123/55 (77) 95 12/25/19 15:30 45 117/62 Mechanical Ventilator 80 12/25/19 15:30 113 35 117/62 (80) 93 12/25/19 15:15 115 34 98/61 (73) 97 12/25/19 15:01 113 36 80 12/25/19 15:00 115 36 106/62 (77) 95 12/25/19 15:00 35 98/61 Mechanical Ventilator 80 12/25/19 15:00 35 98/61 Mechanical Ventilator 80 12/25/19 15:00 98/61 12/25/19 14:45 111 36 111/63 (79) 95 12/25/19 14:30 105 36 116/67 (83) 90 12/25/19 14:26 35 136/66 Mechanical Ventilator 80 12/25/19 14:25 36 111/63 Mechanical Ventilator 80 12/25/19 14:15 100 32 136/66 (89) 94 12/25/19 14:00 108 35 118/65 (82) 95 12/25/19 14:00 35 136/66 Mechanical Ventilator 80 12/25/19 14:00 35 136/66 Mechanical Ventilator 80 12/25/19 14:00 136/66 12/25/19 13:45 107 31 119/64 (82) 92 5/13/20 13:30 102 36 110/55 (73) 97 12/25/19 13:26 102 37 121/61 (81) 93 12/25/19 13:15 107 34 92/59 (70) 95 12/25/19 13:00 107 33 104/57 (73) 95 12/25/19 13:00 34 92/59 Mechanical Ventilator 80 12/25/19 13:00 34 92/69 Mechanical Ventilator 80 12/25/19 13:00 92/59 12/25/19 12:45 108 33 103/55 (71) 95 12/25/19 12:30 108 32 107/55 (72) 94 12/25/19 12:15 107 32 105/54 (71) 94 12/25/19 12:00 80 12/25/19 12:00 98.6 108 32 108/55 (72) 93 12/25/19 12:00 33 105/54 80 12/25/19 12:00 33 105/54 Mechanical Ventilator 80 12/25/19 12:00 105/54 12/25/19 12:00 Mechanical Ventilator 12/25/19 12:00 106 12/25/19 11:45 108 31 100/55 (70) 93 12/25/19 11:30 106 30 105/52 (69) 95 12/25/19 11:15 106 31 110/54 (72) 96 12/25/19 11:00 106 28 102/57 (72) 100 12/25/19 11:00 31 110/54 Mechanical Ventilator 80 12/25/19 11:00 31 110/54 Mechanical Ventilator 80 12/25/19 11:00 110/54 12/25/19 10:52 106 29 80 12/25/19 10:45 104 27 104/56 (72) 100 12/25/19 10:30 102 26 108/59 (75) 100 Intake and Output 12/25/19 12/26/19 19:00 07:00 Intake Total 1021.760 ml 1095.056 ml Output Total 4200 ml 55 ml Balance -3178.240 ml 1040.056 ml Free Water 60 ml IV Total 541.760 ml 675.056 ml Tube Feeding 420 ml 420 ml Output Urine Total 5 ml Stool Total 200 ml 50 ml Hemodialysis UF 4000 ml Laboratory Tests 12/25/19 11:25: Activated Partial Thromboplast Time 28 12/25/19 21:40: Activated Partial Thromboplast Time 35H 12/26/19 04:48: Activated Partial Thromboplast Time 57H, White Blood Count 29.6*H, Red Blood Count 2.78L, Hemoglobin 8.6L, Hematocrit 25.5L, Mean Corpuscular Volume 92, Mean Corpuscular Hemoglobin 30.8, Mean Corpuscular Hemoglobin Concent 33.6, Red Cell Distribution Width 15.7H, Platelet Count 326, Mean Platelet Volume 6.6, Neutrophils (%) (Auto) , Lymphocytes (%) (Auto) , Monocytes (%) (Auto) , Eosinophils (%) (Auto) , Basophils (%) (Auto) , Differential Total Cells Counted 100, Neutrophils % (Manual) 94H, Lymphocytes % (Manual) 2L, Monocytes % (Manual) 4, Eosinophils % (Manual) 0, Basophils % (Manual) 0, Band Neutrophils 0 , Platelet Estimate Adequate, Platelet Morphology Normal, Hypochromasia 3+, Anisocytosis 1+, Random Vancomycin Level 17.6 Height (Feet): 5 Height (Inches): 6.00 Weight (Pounds): 148 General Appearance: confused EENT: normal ENT inspection Neck: supple Cardiovascular: tachycardia Respiratory/Chest: decreased breath sounds Abdomen: normal bowel sounds, non tender, soft Extremities: non-tender João Rdz MD December 26, 2019 10:20
--- NOTE | 2019-12-26 10:26 | Nephrology Progress Note ---
Assessment/Plan Plan #ALBARO- concerns for developing ischemic ATN in the setting of sepsis- r/o vanco toxicity - r/o COVID nephropathy - now with likely ATN #Hyperkalemia due to renal insuffiency - exacerbated by acidosis #COID sepsis #COVID pneumonia #hypoxemic respiratary failure #HTN- now in shock #mediastinal PTX - next HD today - fio2 up to 100 - concerns for PE - started on heparin drip for PE - neuro eval for - lack of response off sedation - midodorine 10mg q8hr - add sevelamer 800mg TID - monitor I&Os - daily weights - monitor lytes closely -add nephrovite - GOALS of care discussion - continue pressor support to maintain MAP > 65- continue levo - continue fentanyl dip - abx per ID- on vanco and meropenem - vent management per pulm -Abd Xray shows mediastinal PTX - too high risk for thorocotomy Subjective ROS Limited/Unobtainable: Yes Subjective plan for gain HD today again fio2 up to 100 concerns for PE started on heparin drip for PE not responsive off sedation neurology consulted remains oliguric on levo Abd Xray shows mediastinal PTX Objective Objective Last 24 Hour Vital Signs Date Time Temp Pulse Resp B/P (MAP) Pulse Ox O2 Delivery O2 Flow Rate FiO2 12/26/19 09:30 118 37 124/57 (79) 100 12/26/19 09:00 99/51 12/26/19 09:00 113 29 99/51 (67) 100 12/26/19 08:30 99.9 112 28 85/53 (64) 100 12/26/19 08:00 111 25 102/53 (69) 100 12/26/19 08:00 80 12/26/19 08:00 102/53 12/26/19 08:00 Mechanical Ventilator 12/26/19 07:41 112 12/26/19 07:30 112 28 93/55 (68) 100 12/26/19 07:00 112 31 80 12/26/19 07:00 97/57 12/26/19 07:00 110 19 107/56 (73) 100 12/26/19 06:45 110 28 104/56 (72) 100 12/26/19 06:30 110 25 97/57 (70) 100 12/26/19 06:15 111 27 93/54 (67) 100 12/26/19 06:00 82/54 12/26/19 06:00 112 26 82/54 (63) 100 12/26/19 05:30 116 24 88/52 (64) 100 12/26/19 05:22 120 22 92/47 (62) 100 12/26/19 05:18 123 24 85/51 (62) 100 12/26/19 05:00 124 38 99/53 (68) 98 12/26/19 05:00 99/53 12/26/19 04:30 121 39 114/48 (70) 97 12/26/19 04:00 114/52 12/26/19 04:00 98.8 120 38 114/57 (76) 97 12/26/19 04:00 120 12/26/19 04:00 Mechanical Ventilator 12/26/19 04:00 80 12/26/19 03:32 109 30 80 12/26/19 03:30 115 39 110/60 (77) 98 12/26/19 03:12 111/67 12/26/19 03:00 111/67 12/26/19 03:00 103 38 111/67 (82) 99 12/26/19 02:30 110 24 107/61 (76) 100 12/26/19 02:00 109 22 115/60 (78) 100 12/26/19 02:00 115/60 12/26/19 01:45 115 24 114/62 (79) 100 12/26/19 01:36 120 28 91/52 (65) 97 12/26/19 01:30 120 32 77/55 (62) 97 12/26/19 01:00 125/62 12/26/19 01:00 119 36 125/62 (83) 99 12/26/19 00:30 112 14 108/61 (77) 100 12/26/19 00:00 80 12/26/19 00:00 103/57 12/26/19 00:00 Mechanical Ventilator 12/26/19 00:00 112 12/26/19 00:00 98.4 112 17 103/57 (72) 100 12/25/19 23:30 113 16 104/52 (69) 100 12/25/19 23:03 113 30 80 12/25/19 23:00 99/62 12/25/19 23:00 114 18 99/62 (74) 100 12/25/19 22:30 118 29 94/52 (66) 97 12/25/19 22:00 116 29 104/60 (75) 97 12/25/19 22:00 104/60 12/25/19 21:30 116 23 107/57 (74) 97 12/25/19 21:00 110 22 92/50 (64) 100 12/25/19 21:00 92/50 12/25/19 20:30 115 32 100/56 (71) 95 12/25/19 20:00 Mechanical Ventilator 12/25/19 20:00 97.8 109 18 100/55 (70) 94 12/25/19 20:00 100/55 12/25/19 20:00 80 12/25/19 19:39 109 12/25/19 19:30 109 30 114/61 (78) 100 12/25/19 19:15 108 35 106/61 (76) 100 12/25/19 19:02 110 36 80 12/25/19 19:00 108 34 111/56 (74) 100 12/25/19 19:00 31 106/61 Mechanical Ventilator 80 12/25/19 19:00 31 106/61 Mechanical Ventilator 80 12/25/19 19:00 106/61 12/25/19 18:45 102 24 97/55 (69) 100 12/25/19 18:30 107 32 99/61 (74) 100 12/25/19 18:15 113 31 102/54 (70) 100 12/25/19 18:00 116 28 98/55 (69) 100 12/25/19 18:00 28 102/54 Mechanical Ventilator 80 12/25/19 18:00 28 102/54 Mechanical Ventilator 80 12/25/19 18:00 102/54 12/25/19 17:45 112 21 92/61 (71) 100 12/25/19 17:30 113 22 103/59 (74) 100 12/25/19 17:15 118 35 111/61 (78) 99 12/25/19 17:00 119 36 92/53 (66) 98 12/25/19 17:00 35 92/53 Mechanical Ventilator 80 12/25/19 17:00 34 92/53 Mechanical Ventilator 80 12/25/19 17:00 92/53 12/25/19 16:45 119 36 97/51 (66) 96 12/25/19 16:31 35 95/51 Mechanical Ventilator 80 12/25/19 16:30 35 97/51 Mechanical Ventilator 80 12/25/19 16:30 95/51 12/25/19 16:30 118 34 92/56 (68) 96 12/25/19 16:15 120 32 95/51 (66) 96 12/25/19 16:00 112 12/25/19 16:00 Mechanical Ventilator 12/25/19 16:00 34 123/55 Mechanical Ventilator 80 12/25/19 16:00 34 95/51 Mechanical Ventilator 80 12/25/19 16:00 123/55 12/25/19 16:00 98.9 118 34 93/56 (68) 97 12/25/19 16:00 80 12/25/19 15:45 114 32 123/55 (77) 95 12/25/19 15:30 45 117/62 Mechanical Ventilator 80 12/25/19 15:30 113 35 117/62 (80) 93 12/25/19 15:15 115 34 98/61 (73) 97 12/25/19 15:01 113 36 80 12/25/19 15:00 115 36 106/62 (77) 95 12/25/19 15:00 35 98/61 Mechanical Ventilator 80 12/25/19 15:00 35 98/61 Mechanical Ventilator 80 12/25/19 15:00 98/61 12/25/19 14:45 111 36 111/63 (79) 95 12/25/19 14:30 105 36 116/67 (83) 90 12/25/19 14:26 35 136/66 Mechanical Ventilator 80 12/25/19 14:25 36 111/63 Mechanical Ventilator 80 12/25/19 14:15 100 32 136/66 (89) 94 12/25/19 14:00 108 35 118/65 (82) 95 12/25/19 14:00 35 136/66 Mechanical Ventilator 80 12/25/19 14:00 35 136/66 Mechanical Ventilator 80 12/25/19 14:00 136/66 12/25/19 13:45 107 31 119/64 (82) 92 12/25/19 13:30 102 36 110/55 (73) 97 12/25/19 13:26 102 37 121/61 (81) 93 12/25/19 13:15 107 34 92/59 (70) 95 12/25/19 13:00 107 33 104/57 (73) 95 12/25/19 13:00 34 92/59 Mechanical Ventilator 80 12/25/19 13:00 34 92/69 Mechanical Ventilator 80 12/25/19 13:00 92/59 12/25/19 12:45 108 33 103/55 (71) 95 12/25/19 12:30 108 32 107/55 (72) 94 12/25/19 12:15 107 32 105/54 (71) 94 12/25/19 12:00 80 12/25/19 12:00 98.6 108 32 108/55 (72) 93 12/25/19 12:00 33 105/54 80 12/25/19 12:00 33 105/54 Mechanical Ventilator 80 12/25/19 12:00 105/54 12/25/19 12:00 Mechanical Ventilator 12/25/19 12:00 106 12/25/19 11:45 108 31 100/55 (70) 93 12/25/19 11:30 106 30 105/52 (69) 95 12/25/19 11:15 106 31 110/54 (72) 96 12/25/19 11:00 106 28 102/57 (72) 100 12/25/19 11:00 31 110/54 Mechanical Ventilator 80 12/25/19 11:00 31 110/54 Mechanical Ventilator 80 12/25/19 11:00 110/54 12/25/19 10:52 106 29 80 12/25/19 10:45 104 27 104/56 (72) 100 12/25/19 10:30 102 26 108/59 (75) 100 Intake and Output 12/25/19 12/26/19 19:00 07:00 Intake Total 1021.760 ml 1095.056 ml Output Total 4200 ml 55 ml Balance -3178.240 ml 1040.056 ml Free Water 60 ml IV Total 541.760 ml 675.056 ml Tube Feeding 420 ml 420 ml Output Urine Total 5 ml Stool Total 200 ml 50 ml Hemodialysis UF 4000 ml Laboratory Tests 12/25/19 11:25: Activated Partial Thromboplast Time 28 12/25/19 21:40: Activated Partial Thromboplast Time 35H 12/26/19 04:48: Activated Partial Thromboplast Time 57H, White Blood Count 29.6*H, Red Blood Count 2.78L, Hemoglobin 8.6L, Hematocrit 25.5L, Mean Corpuscular Volume 92, Mean Corpuscular Hemoglobin 30.8, Mean Corpuscular Hemoglobin Concent 33.6, Red Cell Distribution Width 15.7H, Platelet Count 326, Mean Platelet Volume 6.6, Neutrophils (%) (Auto) , Lymphocytes (%) (Auto) , Monocytes (%) (Auto) , Eosinophils (%) (Auto) , Basophils (%) (Auto) , Differential Total Cells Counted 100, Neutrophils % (Manual) 94H, Lymphocytes % (Manual) 2L, Monocytes % (Manual) 4, Eosinophils % (Manual) 0, Basophils % (Manual) 0, Band Neutrophils 0 , Platelet Estimate Adequate, Platelet Morphology Normal, Hypochromasia 3+, Anisocytosis 1+, Random Vancomycin Level 17.6 Height (Feet): 5 Height (Inches): 6.00 Weight (Pounds): 148 Objective General Appearance: other - intubated- proned Lines, tubes and drains: central line HEENT: normocephalic, atraumatic Respiratory/Chest: rhonchi - bilaterally Cardiovascular/Chest: other - tachycardic Extremities: pitting Dorian Soriano M.D. December 26, 2019 10:26
[2019-12-26 10:52] LABS: ALANINE AMINOTRANSFERASE 47 U/L (12-78); ALBUMIN 2.3 G/DL (3.4-5.0); ALBUMIN/GLOBULIN RATIO 0.4 (1.0-2.7); ALKALINE PHOSPHATASE 236 U/L (46-116); ANION GAP 9 mmol/L (5-15); ASPARTATE AMINO TRANSFERASE 55 U/L (15-37); BILIRUBIN,TOTAL 0.6 MG/DL (0.2-1.0); BLOOD UREA NITROGEN 36 mg/dL (7-18); CALCIUM 8.6 MG/DL (8.5-10.1); CARBON DIOXIDE 30 MMOL/L (21-32); CHLORIDE 96 MMOL/L (98-107); CREATININE 3.1 MG/DL (0.55-1.30); POTASSIUM 3.6 MMOL/L (3.5-5.1); SODIUM 135 MMOL/L (136-145)
--- NOTE | 2019-12-26 10:53 | Pulmonology Progress Note ---
Subjective ROS Limited/Unobtainable: Yes Interval Events: Intubated ;proning on hold due to facial decubitus Constitutional: Reports: fever, fatigue, other - on vent and pressors HEENT: Repors: no symptoms Respiratory: Reports: no symptoms Cardiovascular: Reports: no symptoms Gastrointestinal/Abdominal: Denies: nausea, vomiting, diarrhea Genitourinary: Reports: no symptoms Psychiatric: Reports: other - NA Skin: Denies: rash Musculoskeletal: Reports: pain - NA Allergies: Coded Allergies: No Known Allergies (Unverified , 11/29/19) All Systems: reviewed and negative except above Subjective On daily HD Objective Last 24 Hour Vital Signs Date Time Temp Pulse Resp B/P (MAP) Pulse Ox O2 Delivery O2 Flow Rate FiO2 12/26/19 09:30 118 37 124/57 (79) 100 12/26/19 09:00 99/51 12/26/19 09:00 113 29 99/51 (67) 100 12/26/19 08:30 99.9 112 28 85/53 (64) 100 12/26/19 08:00 111 25 102/53 (69) 100 12/26/19 08:00 80 12/26/19 08:00 102/53 12/26/19 08:00 Mechanical Ventilator 12/26/19 07:41 112 12/26/19 07:30 112 28 93/55 (68) 100 12/26/19 07:00 112 31 80 12/26/19 07:00 97/57 12/26/19 07:00 110 19 107/56 (73) 100 12/26/19 06:45 110 28 104/56 (72) 100 12/26/19 06:30 110 25 97/57 (70) 100 12/26/19 06:15 111 27 93/54 (67) 100 12/26/19 06:00 82/54 12/26/19 06:00 112 26 82/54 (63) 100 12/26/19 05:30 116 24 88/52 (64) 100 12/26/19 05:22 120 22 92/47 (62) 100 12/26/19 05:18 123 24 85/51 (62) 100 12/26/19 05:00 124 38 99/53 (68) 98 12/26/19 05:00 99/53 12/26/19 04:30 121 39 114/48 (70) 97 12/26/19 04:00 114/52 12/26/19 04:00 98.8 120 38 114/57 (76) 97 12/26/19 04:00 120 12/26/19 04:00 Mechanical Ventilator 12/26/19 04:00 80 12/26/19 03:32 109 30 80 12/26/19 03:30 115 39 110/60 (77) 98 12/26/19 03:12 111/67 12/26/19 03:00 111/67 12/26/19 03:00 103 38 111/67 (82) 99 12/26/19 02:30 110 24 107/61 (76) 100 12/26/19 02:00 109 22 115/60 (78) 100 12/26/19 02:00 115/60 12/26/19 01:45 115 24 114/62 (79) 100 12/26/19 01:36 120 28 91/52 (65) 97 12/26/19 01:30 120 32 77/55 (62) 97 12/26/19 01:00 125/62 12/26/19 01:00 119 36 125/62 (83) 99 12/26/19 00:30 112 14 108/61 (77) 100 12/26/19 00:00 80 12/26/19 00:00 103/57 12/26/19 00:00 Mechanical Ventilator 12/26/19 00:00 112 12/26/19 00:00 98.4 112 17 103/57 (72) 100 12/25/19 23:30 113 16 104/52 (69) 100 12/25/19 23:03 113 30 80 12/25/19 23:00 99/62 12/25/19 23:00 114 18 99/62 (74) 100 12/25/19 22:30 118 29 94/52 (66) 97 12/25/19 22:00 116 29 104/60 (75) 97 12/25/19 22:00 104/60 12/25/19 21:30 116 23 107/57 (74) 97 12/25/19 21:00 110 22 92/50 (64) 100 12/25/19 21:00 92/50 12/25/19 20:30 115 32 100/56 (71) 95 12/25/19 20:00 Mechanical Ventilator 12/25/19 20:00 97.8 109 18 100/55 (70) 94 12/25/19 20:00 100/55 12/25/19 20:00 80 12/25/19 19:39 109 12/25/19 19:30 109 30 114/61 (78) 100 12/25/19 19:15 108 35 106/61 (76) 100 12/25/19 19:02 110 36 80 12/25/19 19:00 108 34 111/56 (74) 100 12/25/19 19:00 31 106/61 Mechanical Ventilator 80 12/25/19 19:00 31 106/61 Mechanical Ventilator 80 12/25/19 19:00 106/61 12/25/19 18:45 102 24 97/55 (69) 100 12/25/19 18:30 107 32 99/61 (74) 100 12/25/19 18:15 113 31 102/54 (70) 100 12/25/19 18:00 116 28 98/55 (69) 100 12/25/19 18:00 28 102/54 Mechanical Ventilator 80 12/25/19 18:00 28 102/54 Mechanical Ventilator 80 12/25/19 18:00 102/54 12/25/19 17:45 112 21 92/61 (71) 100 12/25/19 17:30 113 22 103/59 (74) 100 12/25/19 17:15 118 35 111/61 (78) 99 12/25/19 17:00 119 36 92/53 (66) 98 12/25/19 17:00 35 92/53 Mechanical Ventilator 80 12/25/19 17:00 34 92/53 Mechanical Ventilator 80 12/25/19 17:00 92/53 12/25/19 16:45 119 36 97/51 (66) 96 12/25/19 16:31 35 95/51 Mechanical Ventilator 80 12/25/19 16:30 35 97/51 Mechanical Ventilator 80 12/25/19 16:30 95/51 12/25/19 16:30 118 34 92/56 (68) 96 12/25/19 16:15 120 32 95/51 (66) 96 12/25/19 16:00 112 12/25/19 16:00 Mechanical Ventilator 12/25/19 16:00 34 123/55 Mechanical Ventilator 80 12/25/19 16:00 34 95/51 Mechanical Ventilator 80 12/25/19 16:00 123/55 12/25/19 16:00 98.9 118 34 93/56 (68) 97 12/25/19 16:00 80 12/25/19 15:45 114 32 123/55 (77) 95 12/25/19 15:30 45 117/62 Mechanical Ventilator 80 12/25/19 15:30 113 35 117/62 (80) 93 12/25/19 15:15 115 34 98/61 (73) 97 12/25/19 15:01 113 36 80 12/25/19 15:00 115 36 106/62 (77) 95 12/25/19 15:00 35 98/61 Mechanical Ventilator 80 12/25/19 15:00 35 98/61 Mechanical Ventilator 80 12/25/19 15:00 98/61 12/25/19 14:45 111 36 111/63 (79) 95 12/25/19 14:30 105 36 116/67 (83) 90 12/25/19 14:26 35 136/66 Mechanical Ventilator 80 12/25/19 14:25 36 111/63 Mechanical Ventilator 80 12/25/19 14:15 100 32 136/66 (89) 94 12/25/19 14:00 108 35 118/65 (82) 95 12/25/19 14:00 35 136/66 Mechanical Ventilator 80 12/25/19 14:00 35 136/66 Mechanical Ventilator 80 12/25/19 14:00 136/66 12/25/19 13:45 107 31 119/64 (82) 92 12/25/19 13:30 102 36 110/55 (73) 97 12/25/19 13:26 102 37 121/61 (81) 93 12/25/19 13:15 107 34 92/59 (70) 95 12/25/19 13:00 107 33 104/57 (73) 95 12/25/19 13:00 34 92/59 Mechanical Ventilator 80 12/25/19 13:00 34 92/69 Mechanical Ventilator 80 12/25/19 13:00 92/59 12/25/19 12:45 108 33 103/55 (71) 95 12/25/19 12:30 108 32 107/55 (72) 94 12/25/19 12:15 107 32 105/54 (71) 94 12/25/19 12:00 80 12/25/19 12:00 98.6 108 32 108/55 (72) 93 12/25/19 12:00 33 105/54 80 12/25/19 12:00 33 105/54 Mechanical Ventilator 80 12/25/19 12:00 105/54 12/25/19 12:00 Mechanical Ventilator 12/25/19 12:00 106 12/25/19 11:45 108 31 100/55 (70) 93 12/25/19 11:30 106 30 105/52 (69) 95 12/25/19 11:15 106 31 110/54 (72) 96 12/25/19 11:00 106 28 102/57 (72) 100 12/25/19 11:00 31 110/54 Mechanical Ventilator 80 12/25/19 11:00 31 110/54 Mechanical Ventilator 80 12/25/19 11:00 110/54 Intake and Output 12/25/19 12/26/19 19:00 07:00 Intake Total 1021.760 ml 1095.056 ml Output Total 4200 ml 55 ml Balance -3178.240 ml 1040.056 ml Free Water 60 ml IV Total 541.760 ml 675.056 ml Tube Feeding 420 ml 420 ml Output Urine Total 5 ml Stool Total 200 ml 50 ml Hemodialysis UF 4000 ml General Appearance: other - on vent and pressors HEENT: normocephalic, atraumatic, no JVD Respiratory/Chest: chest wall non-tender, decreased breath sounds Cardiovascular: normal peripheral pulses, normal rate Abdomen: normal bowel sounds, soft, non tender, no organomegaly, non distended Genitourinary: other - + barnes, hd pt Extremities: no cyanosis Skin: no rash Neurologic/Psychiatric: motor weakness, other - lethargic and poolry responsive Lymphatic: no neck adenopathy Musculoskeletal: no effusion Laboratory Tests 12/25/19 11:25: Activated Partial Thromboplast Time 28 12/25/19 21:40: Activated Partial Thromboplast Time 35H 12/26/19 04:48: Activated Partial Thromboplast Time 57H, White Blood Count 29.6*H, Red Blood Count 2.78L, Hemoglobin 8.6L, Hematocrit 25.5L, Mean Corpuscular Volume 92, Mean Corpuscular Hemoglobin 30.8, Mean Corpuscular Hemoglobin Concent 33.6, Red Cell Distribution Width 15.7H, Platelet Count 326, Mean Platelet Volume 6.6, Neutrophils (%) (Auto) , Lymphocytes (%) (Auto) , Monocytes (%) (Auto) , Eosinophils (%) (Auto) , Basophils (%) (Auto) , Differential Total Cells Counted 100, Neutrophils % (Manual) 94H, Lymphocytes % (Manual) 2L, Monocytes % (Manual) 4, Eosinophils % (Manual) 0, Basophils % (Manual) 0, Band Neutrophils 0 , Platelet Estimate Adequate, Platelet Morphology Normal, Hypochromasia 3+, Anisocytosis 1+, Sodium Level [Pending], Potassium Level [Pending], Chloride Level [Pending], Carbon Dioxide Level [Pending], Blood Urea Nitrogen [Pending], Creatinine [Pending], Estimat Glomerular Filtration Rate [Pending], Glucose Level [Pending], Calcium Level [Pending], Total Bilirubin [Pending], Aspartate Amino Transf (AST/SGOT) [Pending], Alanine Aminotransferase (ALT/SGPT) [Pending] , Alkaline Phosphatase [Pending], Total Protein [Pending], Albumin [Pending], Globulin [Pending], Random Vancomycin Level 17.6 Current Medications Medications (Trade) Dose Ordered Sig/Vicki Route PRN Reason Start Time Stop Time Status Last Admin Dose Admin Acetaminophen (Tylenol) 650 mg Q4H PRN NG Temp >100.5 12/06/19 14:15 01/05/20 14:14 12/23/19 00:31 Acetaminophen (Tylenol) 650 mg Q4H PRN RECTAL Mild Pain (Pain Scale 1-3) 12/04/19 11:45 01/03/20 11:44 12/06/19 19:17 Chlorhexidine Gluconate (Arely-Hex 2%) 1 applic DAILY@2000 TOPIC 12/05/19 20:00 03/04/20 19:59 12/25/19 20:09 Dextrose (Dextrose 50%) 25 ml Q30M PRN IV Hypoglycemia 11/29/19 14:15 02/27/20 14:14 Dextrose (Dextrose 50%) 50 ml Q30M PRN IV Hypoglycemia 11/29/19 14:15 02/27/20 14:14 Fentanyl Citrate 2500 mcg/Sodium Chloride 250 ml @ 0 mls/hr Q24H IV 12/24/19 16:30 12/31/19 16:29 12/25/19 14:26 Folic Acid (Folate) 1 mg DAILY NG 12/18/19 09:00 01/17/20 08:59 12/26/19 08:54 Heparin Sodium/ Dextrose 500 ml @ 34.836 mls/ hr ADJUST PER PROTOCOL IV 12/26/19 06:15 01/25/20 06:14 12/26/19 06:20 Hydralazine HCl (Apresoline) 10 mg Q4H PRN IV For High Blood Pressure 11/29/19 15:15 02/27/20 15:14 Loperamide HCl (Imodium) 2 mg Q6H PRN NG Diarrhea 12/12/19 12:45 01/11/20 12:44 Meropenem 500 mg/ Sodium Chloride 50 ml @ 100 mls/hr Q24H IVPB 12/24/19 21:30 12/29/19 21:29 12/25/19 21:09 Micafungin Sodium 100 mg/Sodium Chloride 100 ml @ 100 mls/hr Q24H IVPB 12/24/19 22:00 12/31/19 21:59 12/25/19 22:01 Midazolam HCl 100 ml @ 0 mls/hr Q24H PRN IV Restlessness 12/24/19 16:30 12/31/19 16:29 12/25/19 16:31 Midodrine (Pro-Amatine) 10 mg THREE TIMES A DAY ORAL 12/12/19 13:00 03/11/20 12:59 12/26/19 08:54 Norepinephrine Bitartrate 8 mg/ Dextrose 250 ml @ 0 mls/hr Q24H IV 12/18/19 09:00 01/17/20 08:59 12/26/19 03:12 Ondansetron HCl (Zofran) 4 mg Q6H PRN IVP Nausea & Vomiting 11/29/19 14:15 12/29/19 14:14 Pantoprazole (Protonix) 40 mg DAILY IVP 11/30/19 12:15 12/30/19 12:14 12/26/19 08:53 Sevelamer Carbonate (Renvela) 800 mg THREE TIMES A DAY NG 12/22/19 13:00 8/8/20 12:59 12/26/19 08:53 Vancomycin HCl (Vanco rx to dose) 1 ea DAILY PRN MISC Per rx protocol 12/08/19 19:30 01/07/20 19:29 Vitamin B Complex/ Vit C/Folic Acid (Nephrovite) 1 tab DAILY NG 12/16/19 09:00 01/15/20 08:59 12/26/19 08:54 Assessment/Plan Assessment/Plan IMPRESSION: 1. Bilateral pneumonia. 2. Positive COVID-19. 3. Respiratory failure. DISCUSSION: Intubated On AC 20; FiO2 100; PEEP 3; SaO2 99% Oxygenation stable On empiric IV heparin for possible PE Mediastinal PTX; stable; continue low PEEP ventilation Hold proning On Fentanyl due to high triglycerides Grave prognosis I will follow carefully. On HD now S/p Actemra Blood CS ? contaminant Needs ongoing HD; more ultrafiltration Urine CS negative Continue PEEP 3 Continue vent Sushil Cortes M.D. Sushil Cortes MD December 26, 2019 10:53
--- NOTE | 2019-12-26 12:21 | NUR ---
CASE MANAGEMENT:REVIEW 12/26/19 SI: COVID 19 PNA. INTUBATED 99.9 112 28 85/53 100% ON VENT SUPPORT W/80% FIO2 WBC+29.6 H/H-8.6/25.5 BUN+36 CR+3.1 IS: HEPARIN GTT IV MICAFUNGIN Q24 IV MEROPENEM Q24 LEVOPHED GTT : ICU STATUS DCP: PATIENT IS FROM HOME
--- NOTE | 2019-12-26 14:14 | Cardiac Electrophysiology PN ---
Assessment/Plan Assessment/Plan 1. Atrial fib with RVR 170 before intubation on 12/04/19. Troponin 0.77. No further atrial fib. In SR 2. Sinus Tachycardia due to COVID-19 pneumonia. On IV antibiotic per ID. Echo pending COVID. 3. Septic shock. On Levophed 2 Mcg, Midodrine 10 tid and iv Abx. 4. Respiratory failure, on the Vent by Dr. Cortes. 80% Fio2, PEEP 3. Started on heparin drip for possible PE 5. Acute renal failure. On HD per Dr. Sanchez via RFV [place] 6. Full code DW RN and Dr Cortes Subjective Subjective Intubated in ICU on 80% Fio2 and PEEP 3 on Levo 8 mcg, Fentanyl 150 and Versed 5 drip. Started on heparin drip Objective Last 24 Hour Vital Signs Date Time Temp Pulse Resp B/P (MAP) Pulse Ox O2 Delivery O2 Flow Rate FiO2 12/26/19 13:00 107 29 102/57 (72) 100 12/26/19 12:30 106 27 110/58 (75) 100 12/26/19 12:00 105 27 107/63 (78) 100 12/26/19 12:00 107 12/26/19 11:30 106 27 107/63 (78) 100 12/26/19 11:00 107 27 124/64 (84) 100 12/26/19 11:00 117 38 80 12/26/19 10:30 116 36 118/58 (78) 100 12/26/19 10:00 116 36 120/62 (81) 100 12/26/19 09:30 118 37 124/57 (79) 100 12/26/19 09:00 99/51 12/26/19 09:00 113 29 99/51 (67) 100 12/26/19 08:30 99.9 112 28 85/53 (64) 100 12/26/19 08:00 111 25 102/53 (69) 100 12/26/19 08:00 80 12/26/19 08:00 102/53 12/26/19 08:00 Mechanical Ventilator 12/26/19 07:41 112 12/26/19 07:30 112 28 93/55 (68) 100 12/26/19 07:00 112 31 80 12/26/19 07:00 97/57 12/26/19 07:00 110 19 107/56 (73) 100 12/26/19 06:45 110 28 104/56 (72) 100 12/26/19 06:30 110 25 97/57 (70) 100 12/26/19 06:15 111 27 93/54 (67) 100 12/26/19 06:00 82/54 12/26/19 06:00 112 26 82/54 (63) 100 12/26/19 05:30 116 24 88/52 (64) 100 12/26/19 05:22 120 22 92/47 (62) 100 12/26/19 05:18 123 24 85/51 (62) 100 12/26/19 05:00 124 38 99/53 (68) 98 12/26/19 05:00 99/53 12/26/19 04:30 121 39 114/48 (70) 97 12/26/19 04:00 114/52 12/26/19 04:00 98.8 120 38 114/57 (76) 97 12/26/19 04:00 120 12/26/19 04:00 Mechanical Ventilator 12/26/19 04:00 80 12/26/19 03:32 109 30 80 12/26/19 03:30 115 39 110/60 (77) 98 12/26/19 03:12 111/67 12/26/19 03:00 111/67 12/26/19 03:00 103 38 111/67 (82) 99 12/26/19 02:30 110 24 107/61 (76) 100 12/26/19 02:00 109 22 115/60 (78) 100 12/26/19 02:00 115/60 12/26/19 01:45 115 24 114/62 (79) 100 12/26/19 01:36 120 28 91/52 (65) 97 12/26/19 01:30 120 32 77/55 (62) 97 12/26/19 01:00 125/62 12/26/19 01:00 119 36 125/62 (83) 99 12/26/19 00:30 112 14 108/61 (77) 100 12/26/19 00:00 80 12/26/19 00:00 103/57 12/26/19 00:00 Mechanical Ventilator 12/26/19 00:00 112 12/26/19 00:00 98.4 112 17 103/57 (72) 100 12/25/19 23:30 113 16 104/52 (69) 100 12/25/19 23:03 113 30 80 12/25/19 23:00 99/62 12/25/19 23:00 114 18 99/62 (74) 100 12/25/19 22:30 118 29 94/52 (66) 97 12/25/19 22:00 116 29 104/60 (75) 97 12/25/19 22:00 104/60 12/25/19 21:30 116 23 107/57 (74) 97 12/25/19 21:00 110 22 92/50 (64) 100 12/25/19 21:00 92/50 12/25/19 20:30 115 32 100/56 (71) 95 12/25/19 20:00 Mechanical Ventilator 12/25/19 20:00 97.8 109 18 100/55 (70) 94 12/25/19 20:00 100/55 12/25/19 20:00 80 12/25/19 19:39 109 12/25/19 19:30 109 30 114/61 (78) 100 12/25/19 19:15 108 35 106/61 (76) 100 12/25/19 19:02 110 36 80 12/25/19 19:00 108 34 111/56 (74) 100 12/25/19 19:00 31 106/61 Mechanical Ventilator 80 12/25/19 19:00 31 106/61 Mechanical Ventilator 80 12/25/19 19:00 106/61 12/25/19 18:45 102 24 97/55 (69) 100 12/25/19 18:30 107 32 99/61 (74) 100 12/25/19 18:15 113 31 102/54 (70) 100 12/25/19 18:00 116 28 98/55 (69) 100 12/25/19 18:00 28 102/54 Mechanical Ventilator 80 12/25/19 18:00 28 102/54 Mechanical Ventilator 80 12/25/19 18:00 102/54 12/25/19 17:45 112 21 92/61 (71) 100 12/25/19 17:30 113 22 103/59 (74) 100 12/25/19 17:15 118 35 111/61 (78) 99 12/25/19 17:00 119 36 92/53 (66) 98 12/25/19 17:00 35 92/53 Mechanical Ventilator 80 12/25/19 17:00 34 92/53 Mechanical Ventilator 80 12/25/19 17:00 92/53 12/25/19 16:45 119 36 97/51 (66) 96 12/25/19 16:31 35 95/51 Mechanical Ventilator 80 12/25/19 16:30 35 97/51 Mechanical Ventilator 80 12/25/19 16:30 95/51 12/25/19 16:30 118 34 92/56 (68) 96 12/25/19 16:15 120 32 95/51 (66) 96 12/25/19 16:00 112 12/25/19 16:00 Mechanical Ventilator 12/25/19 16:00 34 123/55 Mechanical Ventilator 80 12/25/19 16:00 34 95/51 Mechanical Ventilator 80 12/25/19 16:00 123/55 12/25/19 16:00 98.9 118 34 93/56 (68) 97 12/25/19 16:00 80 12/25/19 15:45 114 32 123/55 (77) 95 12/25/19 15:30 45 117/62 Mechanical Ventilator 80 12/25/19 15:30 113 35 117/62 (80) 93 12/25/19 15:15 115 34 98/61 (73) 97 12/25/19 15:01 113 36 80 12/25/19 15:00 115 36 106/62 (77) 95 12/25/19 15:00 35 98/61 Mechanical Ventilator 80 12/25/19 15:00 35 98/61 Mechanical Ventilator 80 12/25/19 15:00 98/61 12/25/19 14:45 111 36 111/63 (79) 95 12/25/19 14:30 105 36 116/67 (83) 90 12/25/19 14:26 35 136/66 Mechanical Ventilator 80 12/25/19 14:25 36 111/63 Mechanical Ventilator 80 12/25/19 14:15 100 32 136/66 (89) 94 Intake and Output 12/25/19 12/26/19 19:00 07:00 Intake Total 1021.760 ml 1095.056 ml Output Total 4200 ml 55 ml Balance -3178.240 ml 1040.056 ml Free Water 60 ml IV Total 541.760 ml 675.056 ml Tube Feeding 420 ml 420 ml Output Urine Total 5 ml Stool Total 200 ml 50 ml Hemodialysis UF 4000 ml Laboratory Tests Test 12/25/19 21:40 12/26/19 04:48 12/26/19 12:25 Activated Partial Thromboplast Time 35 SEC (23-33) H 57 SEC (23-33) H 61 SEC (23-33) H White Blood Count 29.6 K/UL (4.8-10.8) *H Red Blood Count 2.78 M/UL (4.70-6.10) L Hemoglobin 8.6 G/DL (14.2-18.0) L Hematocrit 25.5 % (42.0-52.0) L Mean Corpuscular Volume 92 FL (80-99) Mean Corpuscular Hemoglobin 30.8 PG (27.0-31.0) Mean Corpuscular Hemoglobin Concent 33.6 G/DL (32.0-36.0) Red Cell Distribution Width 15.7 % (11.6-14.8) H Platelet Count 326 K/UL (150-450) Mean Platelet Volume 6.6 FL (6.5-10.1) Neutrophils (%) (Auto) % (45.0-75.0) Lymphocytes (%) (Auto) % (20.0-45.0) Monocytes (%) (Auto) % (1.0-10.0) Eosinophils (%) (Auto) % (0.0-3.0) Basophils (%) (Auto) % (0.0-2.0) Differential Total Cells Counted 100 Neutrophils % (Manual) 94 % (45-75) H Lymphocytes % (Manual) 2 % (20-45) L Monocytes % (Manual) 4 % (1-10) Eosinophils % (Manual) 0 % (0-3) Basophils % (Manual) 0 % (0-2) Band Neutrophils 0 % (0-8) Platelet Estimate Adequate Platelet Morphology Normal Hypochromasia 3+ Anisocytosis 1+ Sodium Level 135 MMOL/L (136-145) L Potassium Level 3.6 MMOL/L (3.5-5.1) Chloride Level 96 MMOL/L (98-107) L Carbon Dioxide Level 30 MMOL/L (21-32) Anion Gap 9 mmol/L (5-15) Blood Urea Nitrogen 36 mg/dL (7-18) H Creatinine 3.1 MG/DL (0.55-1.30) H Estimat Glomerular Filtration Rate 20.8 mL/min (>60) Glucose Level 146 MG/DL (74-106) H Calcium Level 8.6 MG/DL (8.5-10.1) Total Bilirubin 0.6 MG/DL (0.2-1.0) Aspartate Amino Transf (AST/SGOT) 55 U/L (15-37) H Alanine Aminotransferase (ALT/SGPT) 47 U/L (12-78) Alkaline Phosphatase 236 U/L (46-116) H Total Protein 7.5 G/DL (6.4-8.2) Albumin 2.3 G/DL (3.4-5.0) L Globulin 5.2 g/dL Albumin/Globulin Ratio 0.4 (1.0-2.7) L Random Vancomycin Level 17.6 ug/mL Objective HEAD AND NECK: Orally intubated No JVD LUNGS: Decreased breath sounds. Coarse rhonchi. CARDIOVASCULAR: Tachycardic S1 and S2 with no gallop. ABDOMEN: Soft. EXTREMITIES: 1 plus pitting edema. RFV [place] in place Raul Appiah MD December 26, 2019 14:14
--- NOTE | 2019-12-26 14:48 | Hematology/Onc Progress Note ---
Assessment/Plan Assessment/Plan # Leukocytosis/elevated white blood cell count, unspecified likely related to underlying stress reaction and addition of infection, COVID19++++++ on vent, intubated --> have reviewed peripheral smear and bandemia/neutrophilia noted --> continue antibiotics if they have been started by ID team --> on broad spectrum abx cefepime/flag/vanc-->katie/vanc/difluc --> monitor for resolution --> smear is noted, with metamyelocytes --> wbc trend 18-->24-->32.9-->34k-->27->26-->32->31->30-->34.2 -->30 --> ID is aware --> again ordered peripheral smear for path review-->reviewed and no blasts noted # Anemia of chronic disease due to underlying chronic medical issues, multifactorial v Gi bleed --> Anemia workup has been ordered, rule out gi bleed --> No evidence of hemolysis is noted, peripheral smear has been reviewed. --> Hgb goal >7. Transfuse prn. --> Epogen or iron at this time is not particularly indicated --> Medications have been reviewed --> low threshold for gi evaluation in case has occult + ==> hgb trend 11-->10.7-->10.4-->9.3-->9.1-->8-->8.2-->8.6 # Thrombocytopenia also likely covid related --> supportive care --> plt 149-->164k-->154->195-->253 --> smear noted # Acute Hypoxic Respiratory Failure s/p intubation --> now on vent --> as per Dr. Cortes, weaning prn # COVID19 positive --> abx # Pneumomediastinum --> monitor for expansion --> on vent # Subcutaneous emphysema --> too high risk for bedside thoracostomy --> also possible pe--> hep gtt # ALBARO on ckd --> hd as needed --> per renal # femoral HD cath placed 12/04 --> hd prn # Dvt ppx scds --> heparin gtt DW Rn and appreciate consultation Subjective Allergies: Coded Allergies: No Known Allergies (Unverified , 11/29/19) All Systems: reviewed and negative except above Subjective 12/12 remains on vent, ogtube, barnes and rectal tube emptied, right fem jia line 12/14 icu, prone, levo gtt, multiple abx, labs reviewed 12/15 nonv, no bleeding, remains in vent, no bleeding, wbc high, on abx per id 12/16 nonv, on vent, ng, rectal tube, wbc still 34k 12/17 icu, levo gtt, on katie/vanc, tachy 12/18 in icu, on ng tube feeds, vent, no bleeding, jia in place 12/19 in the icu, no bleeding, ngt, with rectal tube, no bleeding ebc 28k 12/21 is with higer wbc, on katie/vanc/diflucan, id aware, on vent 12/22 hgb 7.8, remains on vent, abx as well, labs reviewed wbc 31k 12/23 wbc is 30, hgb 8, no bleeding or chills, on vent, dw rn in am 12/24 icu, levo gtt, wbc 34, daily hd, stool ob pending 12/25 in icu, remains on heparin gtt, wbc 30k, no bleeding, cbc noted Objective Objective Current Medications Medications (Trade) Dose Ordered Sig/Vicki Route PRN Reason Start Time Stop Time Status Last Admin Dose Admin Acetaminophen (Tylenol) 650 mg Q4H PRN NG Temp >100.5 12/06/19 14:15 01/05/20 14:14 12/23/19 00:31 Acetaminophen (Tylenol) 650 mg Q4H PRN RECTAL Mild Pain (Pain Scale 1-3) 12/04/19 11:45 01/03/20 11:44 12/06/19 19:17 Chlorhexidine Gluconate (Arely-Hex 2%) 1 applic DAILY@2000 TOPIC 12/05/19 20:00 03/04/20 19:59 12/25/19 20:09 Dextrose (Dextrose 50%) 25 ml Q30M PRN IV Hypoglycemia 11/29/19 14:15 02/27/20 14:14 Dextrose (Dextrose 50%) 50 ml Q30M PRN IV Hypoglycemia 11/29/19 14:15 02/27/20 14:14 Fentanyl Citrate 2500 mcg/Sodium Chloride 250 ml @ 0 mls/hr Q24H IV 12/24/19 16:30 12/31/19 16:29 12/25/19 14:26 Folic Acid (Folate) 1 mg DAILY NG 12/18/19 09:00 01/17/20 08:59 12/26/19 08:54 Heparin Sodium/ Dextrose 500 ml @ 37.739 mls/ hr ADJUST PER PROTOCOL IV 12/26/19 13:30 01/25/20 13:29 12/26/19 14:16 Hydralazine HCl (Apresoline) 10 mg Q4H PRN IV For High Blood Pressure 11/29/19 15:15 02/27/20 15:14 Loperamide HCl (Imodium) 2 mg Q6H PRN NG Diarrhea 12/12/19 12:45 01/11/20 12:44 Meropenem 500 mg/ Sodium Chloride 50 ml @ 100 mls/hr Q24H IVPB 12/24/19 21:30 12/29/19 21:29 12/25/19 21:09 Micafungin Sodium 100 mg/Sodium Chloride 100 ml @ 100 mls/hr Q24H IVPB 12/24/19 22:00 12/31/19 21:59 12/25/19 22:01 Midazolam HCl 100 ml @ 0 mls/hr Q24H PRN IV Restlessness 12/24/19 16:30 12/31/19 16:29 12/25/19 16:31 Midodrine (Pro-Amatine) 10 mg THREE TIMES A DAY ORAL 12/12/19 13:00 03/11/20 12:59 12/26/19 13:26 Norepinephrine Bitartrate 8 mg/ Dextrose 250 ml @ 0 mls/hr Q24H IV 12/18/19 09:00 01/17/20 08:59 12/26/19 03:12 Ondansetron HCl (Zofran) 4 mg Q6H PRN IVP Nausea & Vomiting 11/29/19 14:15 12/29/19 14:14 Pantoprazole (Protonix) 40 mg DAILY IVP 11/30/19 12:15 12/30/19 12:14 12/26/19 08:53 Sevelamer Carbonate (Renvela) 800 mg THREE TIMES A DAY NG 12/22/19 13:00 03/21/20 12:59 12/26/19 13:25 Vancomycin HCl (Vanco rx to dose) 1 ea DAILY PRN MISC Per rx protocol 12/08/19 19:30 01/07/20 19:29 Vitamin B Complex/ Vit C/Folic Acid (Nephrovite) 1 tab DAILY NG 12/16/19 09:00 01/15/20 08:59 12/26/19 08:54 Last 24 Hour Vital Signs Date Time Temp Pulse Resp B/P (MAP) Pulse Ox O2 Delivery O2 Flow Rate FiO2 12/26/19 14:30 109 26 121/60 (80) 100 12/26/19 14:15 105 23 119/65 (83) 100 12/26/19 14:00 106 21 118/66 (83) 100 12/26/19 13:45 114 36 138/71 (93) 99 12/26/19 13:30 98.8 115 36 117/60 (79) 100 12/26/19 13:00 107 29 102/57 (72) 100 12/26/19 12:30 106 27 110/58 (75) 100 12/26/19 12:00 105 27 107/63 (78) 100 12/26/19 12:00 107 12/26/19 12:00 Mechanical Ventilator 12/26/19 12:00 80 12/26/19 11:30 106 27 107/63 (78) 100 12/26/19 11:00 107 27 124/64 (84) 100 12/26/19 11:00 117 38 80 12/26/19 10:30 116 36 118/58 (78) 100 12/26/19 10:00 116 36 120/62 (81) 100 12/26/19 09:30 118 37 124/57 (79) 100 12/26/19 09:00 99/51 12/26/19 09:00 113 29 99/51 (67) 100 12/26/19 08:30 99.9 112 28 85/53 (64) 100 12/26/19 08:00 111 25 102/53 (69) 100 12/26/19 08:00 80 12/26/19 08:00 102/53 12/26/19 08:00 Mechanical Ventilator 12/26/19 07:41 112 12/26/19 07:30 112 28 93/55 (68) 100 12/26/19 07:00 112 31 80 12/26/19 07:00 97/57 12/26/19 07:00 110 19 107/56 (73) 100 12/26/19 06:45 110 28 104/56 (72) 100 12/26/19 06:30 110 25 97/57 (70) 100 12/26/19 06:15 111 27 93/54 (67) 100 12/26/19 06:00 82/54 12/26/19 06:00 112 26 82/54 (63) 100 12/26/19 05:30 116 24 88/52 (64) 100 12/26/19 05:22 120 22 92/47 (62) 100 12/26/19 05:18 123 24 85/51 (62) 100 12/26/19 05:00 124 38 99/53 (68) 98 12/26/19 05:00 99/53 12/26/19 04:30 121 39 114/48 (70) 97 12/26/19 04:00 114/52 12/26/19 04:00 98.8 120 38 114/57 (76) 97 12/26/19 04:00 120 12/26/19 04:00 Mechanical Ventilator 12/26/19 04:00 80 12/26/19 03:32 109 30 80 12/26/19 03:30 115 39 110/60 (77) 98 12/26/19 03:12 111/67 12/26/19 03:00 111/67 12/26/19 03:00 103 38 111/67 (82) 99 12/26/19 02:30 110 24 107/61 (76) 100 12/26/19 02:00 109 22 115/60 (78) 100 12/26/19 02:00 115/60 12/26/19 01:45 115 24 114/62 (79) 100 12/26/19 01:36 120 28 91/52 (65) 97 12/26/19 01:30 120 32 77/55 (62) 97 12/26/19 01:00 125/62 12/26/19 01:00 119 36 125/62 (83) 99 12/26/19 00:30 112 14 108/61 (77) 100 12/26/19 00:00 80 12/26/19 00:00 103/57 12/26/19 00:00 Mechanical Ventilator 12/26/19 00:00 112 12/26/19 00:00 98.4 112 17 103/57 (72) 100 12/25/19 23:30 113 16 104/52 (69) 100 12/25/19 23:03 113 30 80 12/25/19 23:00 99/62 12/25/19 23:00 114 18 99/62 (74) 100 12/25/19 22:30 118 29 94/52 (66) 97 12/25/19 22:00 116 29 104/60 (75) 97 12/25/19 22:00 104/60 12/25/19 21:30 116 23 107/57 (74) 97 12/25/19 21:00 110 22 92/50 (64) 100 12/25/19 21:00 92/50 12/25/19 20:30 115 32 100/56 (71) 95 12/25/19 20:00 Mechanical Ventilator 12/25/19 20:00 97.8 109 18 100/55 (70) 94 12/25/19 20:00 100/55 12/25/19 20:00 80 12/25/19 19:39 109 12/25/19 19:30 109 30 114/61 (78) 100 12/25/19 19:15 108 35 106/61 (76) 100 12/25/19 19:02 110 36 80 12/25/19 19:00 108 34 111/56 (74) 100 12/25/19 19:00 31 106/61 Mechanical Ventilator 80 12/25/19 19:00 31 106/61 Mechanical Ventilator 80 12/25/19 19:00 106/61 12/25/19 18:45 102 24 97/55 (69) 100 12/25/19 18:30 107 32 99/61 (74) 100 12/25/19 18:15 113 31 102/54 (70) 100 12/25/19 18:00 116 28 98/55 (69) 100 12/25/19 18:00 28 102/54 Mechanical Ventilator 80 12/25/19 18:00 28 102/54 Mechanical Ventilator 80 12/25/19 18:00 102/54 12/25/19 17:45 112 21 92/61 (71) 100 12/25/19 17:30 113 22 103/59 (74) 100 12/25/19 17:15 118 35 111/61 (78) 99 12/25/19 17:00 119 36 92/53 (66) 98 12/25/19 17:00 35 92/53 Mechanical Ventilator 80 12/25/19 17:00 34 92/53 Mechanical Ventilator 80 12/25/19 17:00 92/53 12/25/19 16:45 119 36 97/51 (66) 96 12/25/19 16:31 35 95/51 Mechanical Ventilator 80 12/25/19 16:30 35 97/51 Mechanical Ventilator 80 12/25/19 16:30 95/51 12/25/19 16:30 118 34 92/56 (68) 96 12/25/19 16:15 120 32 95/51 (66) 96 12/25/19 16:00 112 12/25/19 16:00 Mechanical Ventilator 12/25/19 16:00 34 123/55 Mechanical Ventilator 80 12/25/19 16:00 34 95/51 Mechanical Ventilator 80 12/25/19 16:00 123/55 12/25/19 16:00 98.9 118 34 93/56 (68) 97 12/25/19 16:00 80 12/25/19 15:45 114 32 123/55 (77) 95 12/25/19 15:30 45 117/62 Mechanical Ventilator 80 12/25/19 15:30 113 35 117/62 (80) 93 12/25/19 15:15 115 34 98/61 (73) 97 12/25/19 15:01 113 36 80 12/25/19 15:00 115 36 106/62 (77) 95 12/25/19 15:00 35 98/61 Mechanical Ventilator 80 12/25/19 15:00 35 98/61 Mechanical Ventilator 80 12/25/19 15:00 98/61 12/25/19 14:45 111 36 111/63 (79) 95 12/25/19 14:30 105 36 116/67 (83) 90 12/25/19 14:26 35 136/66 Mechanical Ventilator 80 12/25/19 14:25 36 111/63 Mechanical Ventilator 80 12/25/19 14:15 100 32 136/66 (89) 94 12/25/19 14:00 108 35 118/65 (82) 95 12/25/19 14:00 35 136/66 Mechanical Ventilator 80 12/25/19 14:00 35 136/66 Mechanical Ventilator 80 12/25/19 14:00 136/66 12/25/19 13:45 107 31 119/64 (82) 92 12/25/19 13:30 102 36 110/55 (73) 97 12/25/19 13:26 102 37 121/61 (81) 93 12/25/19 13:15 107 34 92/59 (70) 95 12/25/19 13:00 107 33 104/57 (73) 95 12/25/19 13:00 34 92/59 Mechanical Ventilator 80 12/25/19 13:00 34 92/69 Mechanical Ventilator 80 12/25/19 13:00 92/59 12/25/19 12:45 108 33 103/55 (71) 95 12/25/19 12:30 108 32 107/55 (72) 94 12/25/19 12:15 107 32 105/54 (71) 94 12/25/19 12:00 80 12/25/19 12:00 98.6 108 32 108/55 (72) 93 12/25/19 12:00 33 105/54 80 12/25/19 12:00 33 105/54 Mechanical Ventilator 80 12/25/19 12:00 105/54 12/25/19 12:00 Mechanical Ventilator 12/25/19 12:00 106 12/25/19 11:45 108 31 100/55 (70) 93 12/25/19 11:30 106 30 105/52 (69) 95 12/25/19 11:15 106 31 110/54 (72) 96 12/25/19 11:00 106 28 102/57 (72) 100 12/25/19 11:00 31 110/54 Mechanical Ventilator 80 12/25/19 11:00 31 110/54 Mechanical Ventilator 80 12/25/19 11:00 110/54 12/25/19 10:52 106 29 80 12/25/19 10:45 104 27 104/56 (72) 100 12/25/19 10:30 102 26 108/59 (75) 100 12/25/19 10:15 103 27 108/60 (76) 100 12/25/19 10:00 102 28 112/60 (77) 100 12/25/19 10:00 27 108/60 Mechanical Ventilator 100 12/25/19 10:00 33 108/60 Mechanical Ventilator 100 12/25/19 10:00 108/60 12/25/19 09:45 104 27 112/58 (76) 100 12/25/19 09:30 105 26 103/61 (75) 100 12/25/19 09:15 106 27 119/60 (79) 100 12/25/19 09:00 106 26 112/61 (78) 100 12/25/19 09:00 27 119/60 Mechanical Ventilator 100 12/25/19 09:00 27 119/60 Mechanical Ventilator 100 12/25/19 09:00 119/60 12/25/19 08:58 106 27 121/63 (82) 100 12/25/19 08:45 105 26 112/63 (79) 100 12/25/19 08:30 103 25 109/59 (76) 100 12/25/19 08:15 104 26 106/59 (75) 100 12/25/19 08:00 Mechanical Ventilator 12/25/19 08:00 103 12/25/19 08:00 24 106/59 Mechanical Ventilator 100 12/25/19 08:00 25 106/59 Mechanical Ventilator 100 12/25/19 08:00 106/59 12/25/19 08:00 98.6 106 25 113/59 (77) 100 12/25/19 08:00 100 12/25/19 07:30 103 24 104/58 (73) 100 12/25/19 07:02 102 23 100 12/25/19 07:00 24 99/54 Mechanical Ventilator 100 12/25/19 07:00 24 99/54 Mechanical Ventilator 100 12/25/19 07:00 99/54 12/25/19 07:00 104 25 103/54 (70) 100 12/25/19 06:30 103 26 109/57 (74) 100 12/25/19 06:27 26 112/58 Mechanical Ventilator 100 12/25/19 06:27 26 112/58 Mechanical Ventilator 100 12/25/19 06:27 112/58 12/25/19 06:00 101 25 107/59 (75) 100 12/25/19 05:30 102 27 111/60 (77) 100 12/25/19 05:00 27 104/60 Mechanical Ventilator 100 12/25/19 05:00 27 104/60 Mechanical Ventilator 12/25/19 05:00 104/60 12/25/19 05:00 103 27 104/59 (74) 100 12/25/19 04:30 106 30 102/58 (73) 100 12/25/19 04:00 103 12/25/19 04:00 Mechanical Ventilator 12/25/19 04:00 99.0 109 33 115/62 (79) 100 12/25/19 04:00 30 113/60 Mechanical Ventilator 100 12/25/19 04:00 30 113/60 Mechanical Ventilator 100 12/25/19 04:00 113/60 12/25/19 04:00 100 12/25/19 03:41 106 33 100 12/25/19 03:30 108 33 122/71 (88) 100 12/25/19 03:00 109 31 126/71 (89) 100 12/25/19 03:00 33 125/70 Mechanical Ventilator 100 12/25/19 03:00 33 125/70 Mechanical Ventilator 100 12/25/19 03:00 125/70 12/25/19 02:30 109 33 127/71 (89) 100 12/25/19 02:00 107 33 129/71 (90) 100 12/25/19 02:00 33 131/72 Mechanical Ventilator 100 12/25/19 01:30 105 31 128/75 (92) 100 12/25/19 01:00 103 33 123/72 (89) 100 12/25/19 01:00 31 132/73 Mechanical Ventilator 100 12/25/19 01:00 31 132/73 Mechanical Ventilator 40 12/25/19 01:00 132/73 12/25/19 00:30 103 32 124/69 (87) 100 12/25/19 00:00 103 12/25/19 00:00 100 12/25/19 00:00 32 121/68 Mechanical Ventilator 100 12/25/19 00:00 32 121/68 Mechanical Ventilator 100 12/25/19 00:00 121/68 12/25/19 00:00 Mechanical Ventilator 12/25/19 00:00 99.0 104 32 119/68 (85) 100 12/24/19 23:30 106 29 112/59 (76) 100 12/24/19 23:03 107 24 100 12/24/19 23:00 28 115/65 Mechanical Ventilator 100 12/24/19 23:00 28 115/65 Mechanical Ventilator 100 12/24/19 23:00 115/65 12/24/19 23:00 106 25 111/53 (72) 100 12/24/19 22:30 105 28 136/80 (98) 100 12/24/19 22:00 25 107/61 Mechanical Ventilator 100 12/24/19 22:00 25 107/61 Mechanical Ventilator 100 12/24/19 22:00 107/61 12/24/19 22:00 107 31 106/60 (75) 100 12/24/19 21:30 110 29 108/60 (76) 100 12/24/19 21:15 110 26 112/61 (78) 100 12/24/19 21:00 29 112/61 Mechanical Ventilator 100 12/24/19 21:00 29 112/61 Mechanical Ventilator 100 12/24/19 21:00 112/61 12/24/19 21:00 109 26 116/63 (80) 100 12/24/19 20:45 110 24 113/61 (78) 100 12/24/19 20:30 109 23 114/58 (76) 100 12/24/19 20:00 Mechanical Ventilator 12/24/19 20:00 109 12/24/19 20:00 24 103/55 Mechanical Ventilator 100 12/24/19 20:00 24 103/55 Mechanical Ventilator 12/24/19 20:00 103/55 12/24/19 20:00 98.4 109 25 112/64 (80) 100 12/24/19 20:00 100 12/24/19 19:35 113 20 100 12/24/19 19:30 110 20 115/57 (76) 100 12/24/19 19:15 113 23 119/63 (81) 100 12/24/19 19:00 30 119/53 Mechanical Ventilator 100 12/24/19 19:00 30 119/63 Mechanical Ventilator 100 12/24/19 19:00 119/63 12/24/19 19:00 111 19 109/68 (82) 100 12/24/19 18:30 45 132/67 Mechanical Ventilator 100 12/24/19 18:30 117 34 129/70 (89) 100 12/24/19 18:00 118 36 106/64 (78) 100 12/24/19 18:00 30 106/64 Mechanical Ventilator 70 5/12/20 18:00 35 106/64 Mechanical Ventilator 70 12/24/19 18:00 106/64 12/24/19 17:42 100 12/24/19 17:30 116 34 103/61 (75) 94 12/24/19 17:15 35 117/63 Mechanical Ventilator 70 12/24/19 17:05 30 117/63 Mechanical Ventilator 70 12/24/19 17:00 118 34 113/61 (78) 94 12/24/19 17:00 30 113/61 Mechanical Ventilator 70 12/24/19 17:00 108/71 12/24/19 17:00 35 117/63 Mechanical Ventilator 70 12/24/19 16:56 30 108/61 Mechanical Ventilator 70 12/24/19 16:56 108/61 12/24/19 16:51 88/60 12/24/19 16:30 116 34 89/51 (64) 93 12/24/19 16:00 111 12/24/19 16:00 109 36 132/60 (84) 96 12/24/19 16:00 32 132/60 Mechanical Ventilator 70 12/24/19 16:00 132/60 12/24/19 16:00 32 132/60 Mechanical Ventilator 70 12/24/19 16:00 70 12/24/19 16:00 Mechanical Ventilator 12/24/19 15:30 103 25 123/58 (79) 97 12/24/19 15:15 98 14 128/64 (85) 98 12/24/19 15:00 100 23 130/65 (86) 100 12/24/19 15:00 30 128/64 Mechanical Ventilator 70 12/24/19 15:00 128/64 12/24/19 15:00 30 128/64 Mechanical Ventilator 70 12/24/19 14:59 97 34 70 Intake and Output 12/25/19 12/26/19 19:00 07:00 Intake Total 1021.760 ml 1095.056 ml Output Total 4200 ml 55 ml Balance -3178.240 ml 1040.056 ml Free Water 60 ml IV Total 541.760 ml 675.056 ml Tube Feeding 420 ml 420 ml Output Urine Total 5 ml Stool Total 200 ml 50 ml Hemodialysis UF 4000 ml Labs Test 12/24/19 05:07 12/24/19 12:19 12/24/19 22:50 12/25/19 04:10 White Blood Count 29.8 K/UL (4.8-10.8) 34.2 K/UL (4.8-10.8) Red Blood Count 2.63 M/UL (4.70-6.10) 2.71 M/UL (4.70-6.10) Hemoglobin 8.0 G/DL (14.2-18.0) 8.2 G/DL (14.2-18.0) Hematocrit 24.3 % (42.0-52.0) 25.2 % (42.0-52.0) Mean Corpuscular Volume 93 FL (80-99) 93 FL (80-99) Mean Corpuscular Hemoglobin 30.4 PG (27.0-31.0) 30.1 PG (27.0-31.0) Mean Corpuscular Hemoglobin Concent 32.9 G/DL (32.0-36.0) 32.4 G/DL (32.0-36.0) Red Cell Distribution Width 15.4 % (11.6-14.8) 15.6 % (11.6-14.8) Platelet Count 275 K/UL (150-450) 253 K/UL (150-450) Mean Platelet Volume 6.9 FL (6.5-10.1) 7.0 FL (6.5-10.1) Neutrophils (%) (Auto) % (45.0-75.0) % (45.0-75.0) Lymphocytes (%) (Auto) % (20.0-45.0) % (20.0-45.0) Monocytes (%) (Auto) % (1.0-10.0) % (1.0-10.0) Eosinophils (%) (Auto) % (0.0-3.0) % (0.0-3.0) Basophils (%) (Auto) % (0.0-2.0) % (0.0-2.0) Differential Total Cells Counted 100 100 Neutrophils % (Manual) 89 % (45-75) 88 % (45-75) Lymphocytes % (Manual) 3 % (20-45) 6 % (20-45) Monocytes % (Manual) 5 % (1-10) 6 % (1-10) Eosinophils % (Manual) 1 % (0-3) 0 % (0-3) Basophils % (Manual) 0 % (0-2) 0 % (0-2) Band Neutrophils 2 % (0-8) 0 % (0-8) Platelet Estimate Adequate Adequate Platelet Morphology Normal Normal Anisocytosis 1+ 1+ Sodium Level 135 MMOL/L (136-145) 137 MMOL/L (136-145) Potassium Level 3.6 MMOL/L (3.5-5.1) 3.7 MMOL/L (3.5-5.1) Chloride Level 95 MMOL/L (98-107) 95 MMOL/L (98-107) Carbon Dioxide Level 34 MMOL/L (21-32) 35 MMOL/L (21-32) Anion Gap 6 mmol/L (5-15) 7 mmol/L (5-15) Blood Urea Nitrogen 46 mg/dL (7-18) 32 mg/dL (7-18) Creatinine 3.7 MG/DL (0.55-1.30) 2.8 MG/DL (0.55-1.30) Estimat Glomerular Filtration Rate 17.0 mL/min (>60) 23.4 mL/min (>60) Glucose Level 122 MG/DL (74-106) 102 MG/DL (74-106) Calcium Level 8.5 MG/DL (8.5-10.1) 8.3 MG/DL (8.5-10.1) Total Bilirubin 0.5 MG/DL (0.2-1.0) 0.5 MG/DL (0.2-1.0) Aspartate Amino Transf (AST/SGOT) 50 U/L (15-37) 53 U/L (15-37) Alanine Aminotransferase (ALT/SGPT) 44 U/L (12-78) 43 U/L (12-78) Alkaline Phosphatase 226 U/L (46-116) 233 U/L (46-116) Total Protein 7.0 G/DL (6.4-8.2) 7.4 G/DL (6.4-8.2) Albumin 2.2 G/DL (3.4-5.0) 2.2 G/DL (3.4-5.0) Globulin 4.8 g/dL 5.2 g/dL Albumin/Globulin Ratio 0.5 (1.0-2.7) 0.4 (1.0-2.7) Random Vancomycin Level 13.7 ug/mL 16.6 ug/mL Stool Occult Blood Negative (NEGATIVE) Hypochromasia 2+ Spherocytes 1+ Test 12/25/19 11:25 12/25/19 21:40 12/26/19 04:48 12/26/19 12:25 Activated Partial Thromboplast Time 28 SEC (23-33) 35 SEC (23-33) 57 SEC (23-33) 61 SEC (23-33) White Blood Count 29.6 K/UL (4.8-10.8) Red Blood Count 2.78 M/UL (4.70-6.10) Hemoglobin 8.6 G/DL (14.2-18.0) Hematocrit 25.5 % (42.0-52.0) Mean Corpuscular Volume 92 FL (80-99) Mean Corpuscular Hemoglobin 30.8 PG (27.0-31.0) Mean Corpuscular Hemoglobin Concent 33.6 G/DL (32.0-36.0) Red Cell Distribution Width 15.7 % (11.6-14.8) Platelet Count 326 K/UL (150-450) Mean Platelet Volume 6.6 FL (6.5-10.1) Neutrophils (%) (Auto) % (45.0-75.0) Lymphocytes (%) (Auto) % (20.0-45.0) Monocytes (%) (Auto) % (1.0-10.0) Eosinophils (%) (Auto) % (0.0-3.0) Basophils (%) (Auto) % (0.0-2.0) Differential Total Cells Counted 100 Neutrophils % (Manual) 94 % (45-75) Lymphocytes % (Manual) 2 % (20-45) Monocytes % (Manual) 4 % (1-10) Eosinophils % (Manual) 0 % (0-3) Basophils % (Manual) 0 % (0-2) Band Neutrophils 0 % (0-8) Platelet Estimate Adequate Platelet Morphology Normal Hypochromasia 3+ Anisocytosis 1+ Sodium Level 135 MMOL/L (136-145) Potassium Level 3.6 MMOL/L (3.5-5.1) Chloride Level 96 MMOL/L (98-107) Carbon Dioxide Level 30 MMOL/L (21-32) Anion Gap 9 mmol/L (5-15) Blood Urea Nitrogen 36 mg/dL (7-18) Creatinine 3.1 MG/DL (0.55-1.30) Estimat Glomerular Filtration Rate 20.8 mL/min (>60) Glucose Level 146 MG/DL (74-106) Calcium Level 8.6 MG/DL (8.5-10.1) Total Bilirubin 0.6 MG/DL (0.2-1.0) Aspartate Amino Transf (AST/SGOT) 55 U/L (15-37) Alanine Aminotransferase (ALT/SGPT) 47 U/L (12-78) Alkaline Phosphatase 236 U/L (46-116) Total Protein 7.5 G/DL (6.4-8.2) Albumin 2.3 G/DL (3.4-5.0) Globulin 5.2 g/dL Albumin/Globulin Ratio 0.4 (1.0-2.7) Random Vancomycin Level 17.6 ug/mL Height (Feet): 5 Height (Inches): 6.00 Weight (Pounds): 148 Objective General: prone position on vent Heent: nc, at+ ng Respiratory: normal breath sounds, no retraction, vent++ Cardiovascular: no edema, tachycardia Gastrointestinal: normal inspection Neurologic unresponsive on vent Psychiatrc: unable to access Ext: with hd fem jia in place : + barnes and rectal tube Mj Zhu MD December 26, 2019 14:47
--- NOTE | 2019-12-26 16:00 | NUR ---
MODIFIED HD ORDER FROM DR CASTILLO WITH 2HRS ,1L
--- NOTE | 2019-12-26 16:11 | NUR ---
NURSE NOTES: Gave bed bath to patient, no signs of acute distress. Oral care given, oral suctioning and endotracheal suctioning done.
--- NOTE | 2019-12-26 16:23 | NUR ---
NURSE NOTES: Patient is currently receiving dialysis. Hemodialysis Nurse with patient.
[2019-12-26] MEDS: fentaNYL Citrate 2,500 MCG in NS 200 ML IV SCH (16:30)
--- NOTE | 2019-12-26 17:27 | NUR ---
NURSE NOTES: Patient seen and assessed by Dr. Wilder.
--- NOTE | 2019-12-26 17:45 | Neurology Progress Note ---
Interim History Interim History Interim History Mr. Wade Covarrubias is a 60-year-old, gentleman, of unknown handedness, who was exposed to his son who had COVID-19 at home. He came into the [facility] emergency room on 11/29/2019 with a 3-day history of shortness of breath a mild cough and a feeling of being unwell. He was found to be COVID-19 positive and his disease manifested with respiratory failure, sepsis, renal failure, and hepatic failure. He has been treated for all those problems and until a few days ago when his sedation would be decreased he would respond to uncomfortable stimuli. However in the last few days he has not responded at all to any external stimuli. His sedation has been completely discontinued since approximately 1900 hrs. on 12/25/2019. The patient has been unresponsive in spite of that. At this point in time he is undergoing hemodialysis. He does not respond even to deep painful stimuli. He is still overbreathing the ventilator. His nurse has not seen any improvement in his medical or neurological condition. Review of Systems Neuro Review of Systems Unable to obtain. Objective Physical Exam Last Vital Signs Date Time Temp Pulse Resp B/P (MAP) Pulse Ox O2 Delivery O2 Flow Rate FiO2 12/26/19 17:00 113 37 93/57 (69) 94 12/26/19 16:30 99.2 12/26/19 16:00 Mechanical Ventilator 12/26/19 16:00 80 12/20/19 17:21 15.0 Laboratory Tests Test 12/25/19 21:40 12/26/19 04:48 12/26/19 12:25 Activated Partial Thromboplast Time 35 SEC (23-33) H 57 SEC (23-33) H 61 SEC (23-33) H White Blood Count 29.6 K/UL (4.8-10.8) *H Red Blood Count 2.78 M/UL (4.70-6.10) L Hemoglobin 8.6 G/DL (14.2-18.0) L Hematocrit 25.5 % (42.0-52.0) L Mean Corpuscular Volume 92 FL (80-99) Mean Corpuscular Hemoglobin 30.8 PG (27.0-31.0) Mean Corpuscular Hemoglobin Concent 33.6 G/DL (32.0-36.0) Red Cell Distribution Width 15.7 % (11.6-14.8) H Platelet Count 326 K/UL (150-450) Mean Platelet Volume 6.6 FL (6.5-10.1) Neutrophils (%) (Auto) % (45.0-75.0) Lymphocytes (%) (Auto) % (20.0-45.0) Monocytes (%) (Auto) % (1.0-10.0) Eosinophils (%) (Auto) % (0.0-3.0) Basophils (%) (Auto) % (0.0-2.0) Differential Total Cells Counted 100 Neutrophils % (Manual) 94 % (45-75) H Lymphocytes % (Manual) 2 % (20-45) L Monocytes % (Manual) 4 % (1-10) Eosinophils % (Manual) 0 % (0-3) Basophils % (Manual) 0 % (0-2) Band Neutrophils 0 % (0-8) Platelet Estimate Adequate Platelet Morphology Normal Hypochromasia 3+ Anisocytosis 1+ Sodium Level 135 MMOL/L (136-145) L Potassium Level 3.6 MMOL/L (3.5-5.1) Chloride Level 96 MMOL/L (98-107) L Carbon Dioxide Level 30 MMOL/L (21-32) Anion Gap 9 mmol/L (5-15) Blood Urea Nitrogen 36 mg/dL (7-18) H Creatinine 3.1 MG/DL (0.55-1.30) H Estimat Glomerular Filtration Rate 20.8 mL/min (>60) Glucose Level 146 MG/DL (74-106) H Calcium Level 8.6 MG/DL (8.5-10.1) Total Bilirubin 0.6 MG/DL (0.2-1.0) Aspartate Amino Transf (AST/SGOT) 55 U/L (15-37) H Alanine Aminotransferase (ALT/SGPT) 47 U/L (12-78) Alkaline Phosphatase 236 U/L (46-116) H Total Protein 7.5 G/DL (6.4-8.2) Albumin 2.3 G/DL (3.4-5.0) L Globulin 5.2 g/dL Albumin/Globulin Ratio 0.4 (1.0-2.7) L Random Vancomycin Level 17.6 ug/mL Neurologic Exam Objective PHYSICAL EXAMINATION: GENERAL: He is a well-developed, relatively well-nourished, gentleman, lying in an ICU bed connected to ventilator via an orotracheal tube. HEAD: Normocephalic and atraumatic. NECK: No neck rigidity was observed. NEUROLOGIC EXAMINATION: MENTAL STATUS EXAMINATION: The patient was unresponsive even to deep painful stimuli. SPEECH: Could not be tested. LANGUAGE: Could not be tested. CRANIAL NERVE EXAMINATION: II: He did not blink to threat. III, IV, : External ocular movements were present but significantly restricted on oculocephalic eye movements. The pupils were 3 mm in diameter and did not react to light. V-VII: The corneal reflexes were absent bilaterally. VIII: He did not respond to sounds and had no nystagmus. IX-X: The gag reflex was absent on manipulating the endotracheal tube. XI: The sternocleidomastoids and trapezii did not function. XII: The tongue could not be examined adequately. MOTOR SYSTEM: The tone was normal in all 4 extremities. Examination of muscle mass revealed no focal wasting. Examination of power was impossible to perform because even on applying deep painful stimuli no movements were seen. SENSORY EXAMINATION: He did not respond even to deep painful stimuli. COORDINATION: Could not be tested. REFLEXES: 0 biceps, triceps, brachioradialis, knees and ankles. The plantar responses were mute bilaterally. STANCE: Could not be tested. GAIT: Could not be tested. ABNORMAL MOVEMENTS: None Impression/Recommendations Diagnostic Impression DIAGNOSTIC IMPRESSION: 1. Mr. Wade Covarrubias is a 60-year-old, gentleman, of unknown handedness, who was exposed to his son who had COVID-19 at home. He came into the [facility] emergency room on 11/29/2019 with a 3-day history of shortness of breath a mild cough and a feeling of being unwell. 2. He was found to be COVID-19 positive and his disease manifested with respiratory failure, sepsis, renal failure, and hepatic failure. He has been treated for all those problems and until a few days ago when his sedation would be decreased he would respond to uncomfortable stimuli. However in the last few days he has not responded at all to any external stimuli. 3. His sedation has been completely discontinued since approximately 1900 hrs. on 12/25/2019. The patient has been unresponsive in spite of that. At this point in time he is undergoing hemodialysis. He does not respond even to deep painful stimuli. He is still overbreathing the ventilator. His nurse has not seen any improvement in his medical or neurological condition. 4. On neurological examination, at this time, he does not respond to any external stimuli including deep pain. He does have minimal eye movements on oculocephalic maneuvers and in addition breathes at the rate higher than the ventilator setting. He does not demonstrate any signs of cerebral cortical function. 5. The patient's history and neurological examination are most consistent with a severe toxic metabolic encephalopathy related to hypoxia, hepatic dysfunction, renal dysfunction, and sepsis. 6. With regards to the patient being brain , he does not meet criteria for brain as he has brainstem function in the form of oculocephalic eye movements and respiratory drive. 7. With regards to how much cortical function the patient has, it is exceedingly difficult to determine because of the prolonged period that the patient has been on sedative drugs and in addition the other metabolic insults that he is experiencing. However all sedative drugs have been discontinued since 12/25/2019 at approximately 1900 hrs. Recommendations RECOMMENDATIONS: 1. Continue present management. 2. Await EEG to evaluate the patient for the degree and type of cerebral cortical dysfunction. 3. Agree with discontinuing all mind altering drugs. 4. Continue treatment of other intercurrent medical problems. 5. Depending on the results of the EEG further recommendations will be given. Maxim Wilder M.D., M.S.P.H. Neurologist & Clinical Neurophysiologist Maxim Wilder MD December 26, 2019 17:45
--- NOTE | 2019-12-26 19:10 | NUR ---
HAND-OFF: Report given to Nicol LACKEY.
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
--- NOTE | 2019-12-26 19:36 | Infectious Diseases Prog Note ---
Assessment/Plan Assessment/Plan ASSESSMENT AND PLAN: 1. covid-19 virus infection with pna, rule out bacterial pna, sepsis/shock, fevers, leukocytosis vent, respiratory failure, ? building attendant bacteremia vs contaminant, fio2-80%, on pressors leukocytosis worse, persistent fevers, fungemia risk, diarrhea, c.diff. negative - meropenem, vancomycin and micafungin - s/p hydroxychloroquine - monitor chest x-ray and labs - f/u c.diff., reculture patient - s/p tocilizumab - condition critical - getting HD 2. Hypertension. 3. No known allergies. 4. Social history negative. 5. Family history noncontributory. 6. MAR was noted. 7. Case discussed with RN. 8. Continue treatment per primary consultants. Subjective Constitutional: Reports: other - on vent, less pressors ; Denies: fever HEENT: Reports: congestion Respiratory: Reports: shortness of breath Cardiovascular: Reports: other - less pressors Gastrointestinal/Abdominal: Reports: other - + rectal tube ; Denies: nausea, vomiting Genitourinary: Reports: other - + barnes Neurologic: Reports: other - lethargic, poorly responsive Psychiatric: Reports: other - NA Skin: Denies: rash Hematologic: Denies: bleeding Musculoskeletal: Reports: other - NA Allergies: Coded Allergies: No Known Allergies (Unverified , 11/29/19) Objective Vital Signs Last 24 Hour Vital Signs Date Time Temp Pulse Resp B/P (MAP) Pulse Ox O2 Delivery O2 Flow Rate FiO2 12/26/19 19:24 120 38 80 12/26/19 19:00 120 37 105/60 (75) 100 12/26/19 19:00 105/60 12/26/19 18:30 117 37 103/59 (74) 100 12/26/19 18:15 119 24 115/62 (79) 100 12/26/19 18:00 120 39 120/66 (84) 100 12/26/19 18:00 120/66 12/26/19 17:30 114 37 106/62 (77) 100 12/26/19 17:00 113 37 93/57 (69) 94 12/26/19 17:00 93/57 12/26/19 16:30 99.2 110 35 140/72 (94) 97 12/26/19 16:00 Mechanical Ventilator 12/26/19 16:00 123/59 12/26/19 16:00 112 12/26/19 16:00 80 12/26/19 16:00 116 31 123/59 (80) 100 12/26/19 15:30 115 38 126/64 (84) 99 12/26/19 15:00 109 29 113/58 (76) 100 12/26/19 15:00 116 38 80 12/26/19 15:00 113/58 12/26/19 14:45 110 26 116/64 (81) 100 12/26/19 14:30 121/60 12/26/19 14:30 109 26 121/60 (80) 100 12/26/19 14:30 109 26 121/60 (80) 100 12/26/19 14:15 105 23 119/65 (83) 100 12/26/19 14:00 118/66 12/26/19 14:00 106 21 118/66 (83) 100 12/26/19 13:45 114 36 138/71 (93) 99 12/26/19 13:30 98.8 115 36 117/60 (79) 100 12/26/19 13:00 107 29 102/57 (72) 100 12/26/19 13:00 102/57 12/26/19 12:30 106 27 110/58 (75) 100 12/26/19 12:00 105 27 107/63 (78) 100 12/26/19 12:00 107 12/26/19 12:00 107/63 12/26/19 12:00 Mechanical Ventilator 12/26/19 12:00 80 12/26/19 11:30 106 27 107/63 (78) 100 12/26/19 11:00 124/64 12/26/19 11:00 107 27 124/64 (84) 100 12/26/19 11:00 117 38 80 12/26/19 10:30 116 36 118/58 (78) 100 12/26/19 10:00 116 36 120/62 (81) 100 12/26/19 10:00 132/64 12/26/19 09:30 118 37 124/57 (79) 100 12/26/19 09:00 99/51 12/26/19 09:00 113 29 99/51 (67) 100 12/26/19 08:30 99.9 112 28 85/53 (64) 100 12/26/19 08:00 111 25 102/53 (69) 100 12/26/19 08:00 80 12/26/19 08:00 102/53 12/26/19 08:00 Mechanical Ventilator 12/26/19 07:41 112 12/26/19 07:30 112 28 93/55 (68) 100 12/26/19 07:00 112 31 80 12/26/19 07:00 97/57 12/26/19 07:00 110 19 107/56 (73) 100 12/26/19 06:45 110 28 104/56 (72) 100 12/26/19 06:30 110 25 97/57 (70) 100 12/26/19 06:15 111 27 93/54 (67) 100 12/26/19 06:00 82/54 12/26/19 06:00 112 26 82/54 (63) 100 12/26/19 05:30 116 24 88/52 (64) 100 12/26/19 05:22 120 22 92/47 (62) 100 12/26/19 05:18 123 24 85/51 (62) 100 12/26/19 05:00 124 38 99/53 (68) 98 12/26/19 05:00 99/53 12/26/19 04:30 121 39 114/48 (70) 97 12/26/19 04:00 114/52 12/26/19 04:00 98.8 120 38 114/57 (76) 97 12/26/19 04:00 120 12/26/19 04:00 Mechanical Ventilator 12/26/19 04:00 80 12/26/19 03:32 109 30 80 12/26/19 03:30 115 39 110/60 (77) 98 12/26/19 03:12 111/67 12/26/19 03:00 111/67 12/26/19 03:00 103 38 111/67 (82) 99 12/26/19 02:30 110 24 107/61 (76) 100 12/26/19 02:00 109 22 115/60 (78) 100 12/26/19 02:00 115/60 12/26/19 01:45 115 24 114/62 (79) 100 12/26/19 01:36 120 28 91/52 (65) 97 12/26/19 01:30 120 32 77/55 (62) 97 12/26/19 01:00 125/62 12/26/19 01:00 119 36 125/62 (83) 99 12/26/19 00:30 112 14 108/61 (77) 100 12/26/19 00:00 80 12/26/19 00:00 103/57 12/26/19 00:00 Mechanical Ventilator 12/26/19 00:00 112 12/26/19 00:00 98.4 112 17 103/57 (72) 100 12/25/19 23:30 113 16 104/52 (69) 100 12/25/19 23:03 113 30 80 12/25/19 23:00 99/62 12/25/19 23:00 114 18 99/62 (74) 100 12/25/19 22:30 118 29 94/52 (66) 97 12/25/19 22:00 116 29 104/60 (75) 97 12/25/19 22:00 104/60 12/25/19 21:30 116 23 107/57 (74) 97 12/25/19 21:00 110 22 92/50 (64) 100 12/25/19 21:00 92/50 12/25/19 20:30 115 32 100/56 (71) 95 12/25/19 20:00 Mechanical Ventilator 12/25/19 20:00 97.8 109 18 100/55 (70) 94 12/25/19 20:00 100/55 12/25/19 20:00 80 12/25/19 19:39 109 Height (Feet): 5 Height (Inches): 6.00 Weight (Pounds): 148 General Appearance: no acute distress HEENT: normocephalic, atraumatic, anicteric Respiratory/Chest: crackles/rales, rhonchi - bilaterally Cardiovascular: normal rate, regular rhythm, no gallop/murmur, no JVD Abdomen: normal bowel sounds, soft, non tender, no organomegaly, non distended Genitourinary: other - + barnes Extremities: no cyanosis Skin: no rash 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 COMPARISON: Chest x-ray dated 11/29/19 FINDINGS: Lungs: Persistent diffuse peripheral groundglass opacities, not significantly changed, concerning for pneumonia. Pleural space: Unremarkable. The costophrenic angles are sharp. No visible pneumothorax. Heart: Unremarkable. No cardiomegaly. Mediastinum: Unremarkable. Bones/joints: Mild degenerative changes throughout the visualized spine. Tubes, lines and devices: Telemetry leads overlie the thorax. IMPRESSION: No significant change compared to the prior chest x-ray. Persistent diffuse peripheral groundglass opacities, concerning for pneumonia. Chest x-ray - 12/07/19 - COMPARISON: Chest x-ray 12/06/19 1317 FINDINGS: Lungs: Diffuse bilateral airspace opacities, improved in the left lung and slightly worsened in the right lung. Pleural space: Unremarkable. No pneumothorax. Heart: Mild cardiomegaly. Mediastinum: Unremarkable. Bones/joints: Mild degenerative changes of spine. Tubes, lines and devices: Endotracheal tube and NG tube are stable. IMPRESSION: Diffuse bilateral airspace opacities, improved in the left lung and slightly worsened in the right lung. Chest x-ray - 12/10/19 - Procedure: XRAY Chest 1v Indication: Shortness of breath Technique: One view of the chest Comparison: 12/07/2019 Findings: There is worsening airspace opacity in the bilateral mid and lower lungs. The left hemidiaphragm is obscured, could indicate some pleural fluid. Stable satisfactory positions of endotracheal and nasogastric tubes. Impression: Worsening infiltrates, likely pneumonia, bilaterally Chest x-ray - 12/16/19 - Procedure: XRAY Chest 1v Indication: Shortness of breath Technique: One view of the chest Comparison: 12/15/2019 Findings: Diffuse and extensive bilateral hazy infiltrates are unchanged. Stable position of endotracheal and nasogastric tubes. Normal heart size. Findings are unchanged Impression: Unchanged, over one day, findings as above. Chest x-ray - 12/21/19 - IMPRESSION: 1. Endotracheal tube terminates in the region of the mid thoracic trachea. Enteric tube courses past the diaphragm and out of the field-of- view. 2. Similar extensive patchy opacities throughout the lungs. Microbiology Date/Time Source Procedure Growth Status 12/22/19 16:15 Blood Blood Culture - Preliminary NO GROWTH AFTER 72 HOURS Resulted 12/16/19 16:00 Sputum Gram Stain - Final Complete 12/16/19 16:00 Sputum Sputum Culture - Final NORMAL UPPER RESPIRATORY ALISIA PRESENT Complete 12/23/19 04:00 Stool Clostridium difficile Toxin Assay - Final Complete 12/23/19 04:00 Indwelling Cath Urine Culture - Final NO GROWTH AFTER 48 HOURS Complete Laboratory Tests Test 12/25/19 21:40 12/26/19 04:48 12/26/19 12:25 Activated Partial Thromboplast Time 35 SEC (23-33) H 57 SEC (23-33) H 61 SEC (23-33) H White Blood Count 29.6 K/UL (4.8-10.8) *H Red Blood Count 2.78 M/UL (4.70-6.10) L Hemoglobin 8.6 G/DL (14.2-18.0) L Hematocrit 25.5 % (42.0-52.0) L Mean Corpuscular Volume 92 FL (80-99) Mean Corpuscular Hemoglobin 30.8 PG (27.0-31.0) Mean Corpuscular Hemoglobin Concent 33.6 G/DL (32.0-36.0) Red Cell Distribution Width 15.7 % (11.6-14.8) H Platelet Count 326 K/UL (150-450) Mean Platelet Volume 6.6 FL (6.5-10.1) Neutrophils (%) (Auto) % (45.0-75.0) Lymphocytes (%) (Auto) % (20.0-45.0) Monocytes (%) (Auto) % (1.0-10.0) Eosinophils (%) (Auto) % (0.0-3.0) Basophils (%) (Auto) % (0.0-2.0) Differential Total Cells Counted 100 Neutrophils % (Manual) 94 % (45-75) H Lymphocytes % (Manual) 2 % (20-45) L Monocytes % (Manual) 4 % (1-10) Eosinophils % (Manual) 0 % (0-3) Basophils % (Manual) 0 % (0-2) Band Neutrophils 0 % (0-8) Platelet Estimate Adequate Platelet Morphology Normal Hypochromasia 3+ Anisocytosis 1+ Sodium Level 135 MMOL/L (136-145) L Potassium Level 3.6 MMOL/L (3.5-5.1) Chloride Level 96 MMOL/L (98-107) L Carbon Dioxide Level 30 MMOL/L (21-32) Anion Gap 9 mmol/L (5-15) Blood Urea Nitrogen 36 mg/dL (7-18) H Creatinine 3.1 MG/DL (0.55-1.30) H Estimat Glomerular Filtration Rate 20.8 mL/min (>60) Glucose Level 146 MG/DL (74-106) H Calcium Level 8.6 MG/DL (8.5-10.1) Total Bilirubin 0.6 MG/DL (0.2-1.0) Aspartate Amino Transf (AST/SGOT) 55 U/L (15-37) H Alanine Aminotransferase (ALT/SGPT) 47 U/L (12-78) Alkaline Phosphatase 236 U/L (46-116) H Total Protein 7.5 G/DL (6.4-8.2) Albumin 2.3 G/DL (3.4-5.0) L Globulin 5.2 g/dL Albumin/Globulin Ratio 0.4 (1.0-2.7) L Random Vancomycin Level 17.6 ug/mL Current Medications Medications (Trade) Dose Ordered Sig/Vicki Route PRN Reason Start Time Stop Time Status Last Admin Dose Admin Acetaminophen (Tylenol) 650 mg Q4H PRN NG Temp >100.5 12/06/19 14:15 01/05/20 14:14 12/23/19 00:31 Acetaminophen (Tylenol) 650 mg Q4H PRN RECTAL Mild Pain (Pain Scale 1-3) 12/04/19 11:45 01/03/20 11:44 12/06/19 19:17 Chlorhexidine Gluconate (Arely-Hex 2%) 1 applic DAILY@2000 TOPIC 12/05/19 20:00 03/04/20 19:59 12/25/19 20:09 Dextrose (Dextrose 50%) 25 ml Q30M PRN IV Hypoglycemia 11/29/19 14:15 02/27/20 14:14 Dextrose (Dextrose 50%) 50 ml Q30M PRN IV Hypoglycemia 11/29/19 14:15 02/27/20 14:14 Fentanyl Citrate 2500 mcg/Sodium Chloride 250 ml @ 0 mls/hr Q24H IV 12/24/19 16:30 12/31/19 16:29 12/25/19 14:26 Folic Acid (Folate) 1 mg DAILY NG 12/18/19 09:00 01/17/20 08:59 12/26/19 08:54 Heparin Sodium/ Dextrose 500 ml @ 37.739 mls/ hr ADJUST PER PROTOCOL IV 12/26/19 13:30 01/25/20 13:29 12/26/19 14:16 Hydralazine HCl (Apresoline) 10 mg Q4H PRN IV For High Blood Pressure 11/29/19 15:15 02/27/20 15:14 Loperamide HCl (Imodium) 2 mg Q6H PRN NG Diarrhea 12/12/19 12:45 01/11/20 12:44 Meropenem 500 mg/ Sodium Chloride 50 ml @ 100 mls/hr Q24H IVPB 12/24/19 21:30 12/29/19 21:29 12/25/19 21:09 Micafungin Sodium 100 mg/Sodium Chloride 100 ml @ 100 mls/hr Q24H IVPB 12/24/19 22:00 12/31/19 21:59 12/25/19 22:01 Midazolam HCl 100 ml @ 0 mls/hr Q24H PRN IV Restlessness 12/24/19 16:30 12/31/19 16:29 12/25/19 16:31 Midodrine (Pro-Amatine) 10 mg THREE TIMES A DAY ORAL 12/12/19 13:00 03/11/20 12:59 12/26/19 17:48 Norepinephrine Bitartrate 8 mg/ Dextrose 250 ml @ 0 mls/hr Q24H IV 12/18/19 09:00 01/17/20 08:59 12/26/19 03:12 Ondansetron HCl (Zofran) 4 mg Q6H PRN IVP Nausea & Vomiting 11/29/19 14:15 12/29/19 14:14 Pantoprazole (Protonix) 40 mg DAILY IVP 11/30/19 12:15 12/30/19 12:14 12/26/19 08:53 Sevelamer Carbonate (Renvela) 800 mg THREE TIMES A DAY NG 12/22/19 13:00 03/21/20 12:59 12/26/19 17:48 Vancomycin HCl (Vanco rx to dose) 1 ea DAILY PRN MISC Per rx protocol 12/08/19 19:30 01/07/20 19:29 Vitamin B Complex/ Vit C/Folic Acid (Nephrovite) 1 tab DAILY NG 12/16/19 09:00 01/15/20 08:59 12/26/19 08:54 Ilsa Rodriguez MD December 26, 2019 19:36
--- NOTE | 2019-12-26 19:45 | NUR ---
Nurse Note: Report received from Benji RN for continuity of care. N: Pt obtunded, does not react to deep pain; EEG ordered. Pt has RT hand IV infusing Heparin drip at 26U/kg/hr. Pt has RT femoral Bismark cath with pigtail. Pt received HD 12/25, 1 L out. C: ST at rest; HR 120. R: Pt orally intubated. ETT 8, 24cm at lip, AC 20, TV 500, FiO2 30%, Peep 3. GI: LT NGT intact; infusing Nepro at 35cc. : Joe cath intact and rectal tube is intact. S: Facial DTI. Rash scattered throughout body. All safety measures met; will continue to monitor.
[2019-12-26] MEDS: Dyna-Hex 2% Top Sol 2oz TOPIC SCH (20:54)
[2019-12-26] MEDS: Heparin 25,000u/D5W 500ml 500 ML IV SCH ×2 (21:20→22:13)
--- NOTE | 2019-12-26 22:00 | NUR ---
Nurse Note: PTT drawn, new order for heparin rate; will draw PTT q6hr. EEG completed by Migel. Spoke with family member and updated on pt status; all questions answered. Informed RT about anchor fast sliding off face; per RT, new anchor fast will be placed. No desaturation, 100% O2. All safety measures met; will continue to monitor.
[2019-12-27] VITALS (49 sets, daily range): BP systolic 75–119; BP diastolic 41–68
--- NOTE | 2019-12-27 01:25 | NUR ---
Nurse Note: Pt calm, no signs of acute distress noted. HR 118/59, BP MAP >65, afebrile. Orally suctioned and turned as tolerated. No titration on drips. Rectal tube and Joe cath intact. All safety measures met; will continue to monitor.
--- NOTE | 2019-12-27 03:50 | NUR ---
Nurse Note: New IV established on LT FA 20 gauge. RT hand IV removed, site cleaned and bandaged. Pt resting, no change in condition. All safety measures met; will continue to monitor.
[2019-12-27 04:02] LABS: HEMATOCRIT 25.7 % (42.0-52.0); HEMOGLOBIN 8.4 G/DL (14.2-18.0); MEAN CORPUSCULAR VOLUME 91 FL (80-99); PLATELET COUNT 323 K/UL (150-450); RED BLOOD COUNT 2.83 M/UL (4.70-6.10); RED CELL DISTRIBUTION WIDTH 15.4 % (11.6-14.8)
[2019-12-27 04:12] LABS: ALANINE AMINOTRANSFERASE 41 U/L (12-78); ALBUMIN 2.1 G/DL (3.4-5.0); ALBUMIN/GLOBULIN RATIO 0.4 (1.0-2.7); ALKALINE PHOSPHATASE 230 U/L (46-116); ANION GAP 8 mmol/L (5-15); ASPARTATE AMINO TRANSFERASE 43 U/L (15-37); BILIRUBIN,TOTAL 0.7 MG/DL (0.2-1.0); BLOOD UREA NITROGEN 46 mg/dL (7-18); CALCIUM 9.1 MG/DL (8.5-10.1); CARBON DIOXIDE 31 MMOL/L (21-32); CHLORIDE 95 MMOL/L (98-107); CREATININE 3.5 MG/DL (0.55-1.30); SODIUM 134 MMOL/L (136-145)
[2019-12-27 04:16] LABS: WHITE BLOOD COUNT 37.1 K/UL (4.8-10.8)
[2019-12-27] MEDS: Heparin 25,000u/D5W 500ml 500 ML IV SCH ×3 (04:53→23:47)
[2019-12-27] MEDS ORDERED: Heparin 5000 units/ml inj IV SCH (05:00)
--- NOTE | 2019-12-27 06:30 | NUR ---
NURSE NOTES: N: Pt obtunded, does not react to deep pain; EEG ordered. Pt has LT FA IV infusing Heparin drip at 30U/kg/hr. Pt has RT femoral Bismark cath with pigtail. Pt received HD 12/25, 1 L out. C: ST at rest; HR 120. R: Pt orally intubated. ETT 8, 24cm at lip, AC 20, TV 500, FiO2 30%, Peep 3. GI: LT NGT 70 cm at nare, intact; infusing Nepro at 35cc. : Joe cath intact and rectal tube is intact. Little to no urine output, total 10cc output and 80cc stool from rectal tube. S: Facial DTI. Rash scattered throughout body. Pt cleaned, turned, total linen changed. Cool air applied for temperature regulation. All safety measures met; will continue to monitor.
--- NOTE | 2019-12-27 06:38 | NUR ---
Nurse Note: Spoke with Dr. Heredia about pt status. aware of WBC.
--- NOTE | 2019-12-27 07:19 | NUR ---
Nurse Note: Report given to DARYA Lemus for continuity of care.
--- NOTE | 2019-12-27 07:35 | NUR ---
NURSE NOTES: Report received from DARYA Camarena. Pt is lying comfortably in semi fowlers with no signs of distress. Pt is non-verbal and sedated, with eyes closed. Pt only reacting to deep painful stimuli. Respirations even and unlabored, but tachypneic on mechanical ventilator. ETT 8, 24 cm @ the lip line. O2 saturation of 99% with vent settings of AC 20, VT 500, FiO2 80% and peep of 3. Rhonchi heard bilaterally on auscultation. Pt ST on the monitor @ 124 bpm. Right femoral jia cath noted and running fentanyl drip @ 130 mcg, to keep RASS @ -2. Left FA 20 g IV patent and running heparin drip @ 30 u/kg. Pt blood pressure in the 80s systolic so levophed drip will be restarted to keep SBP > 90. Pt has bilateral cheek wounds, dressed in optifoam. Open wound on buttocks dressed in optifoam. Head of bed @ 30 degrees. NGT noted and patent, running feeding @ prescribed rate. Joe in place and patent, draining little dark marge urine. Bed at lowest position, brakes engaged, siderails x3, bed alarm on, and call light within reach. Pt in stable condition at this time; will continue to monitor.
[2019-12-27] MEDS: Pantoprazole Inj IVP SCH (07:53)
[2019-12-27] MEDS: Midodrine 10mg tab ORAL SCH (07:54)
[2019-12-27] MEDS: Renvela 800mg Pkt NG SCH ×3 (07:54→17:26)
[2019-12-27] MEDS: Nephrovite tab (Rena-Vite) NG SCH (07:54)
--- NOTE | 2019-12-27 08:42 | General Progress Note ---
Assessment/Plan Assessment/Plan: 59-year-old male with PMH of HTN presents with acute respiratory distress. Pt w/ known COVID exposure by his son who was living with him at the time. On admission pt presented with 60% room air, was started on BiPAP, CXR revealed b/ l peripheral infiltrates consistent w/COVID, developed sepsis and was intubated on 12/03 and transferred to ICU. Pt is COVID positive. NEURO #Acute severe toxic metabolic encephalopathy, multifactorial, 2/2 hypoxia, hepatic dysfunction, renal dysfunction, sepsis -per nurse, pt unresponsive and tachypneic off sedation -unable to obtain CT head 2/2 COVID -Neuro exam per neurology on 12/25 w/minimal eye movements, breaths over vent, no signs of cerebral cortical function -s/p EEG on 12/26, pending final read by Dr. Wilder -Neurology, Dr. Wilder, following, recs appreciated RESP/ID #Acute Hypoxic Respiratory Failure 2/2 COVID +, HCAP +--> WBC peak on 12/21, now downtrending #Septic Shock #PTX/Pneumomediastinum--> to high risk for intervention #diarrhea #Tachypnea likely 2/2 PE -s/p Intubation 12/03 -Appreciate Pulm/ID --> Vent Management -Fentanyl for Sedation 2/2 elevated TG -Pressor support, maintain MAP > 65 -ABG per pulm -Patient is s/p IL-6 inhibitor and Plaquenil -s/p Vanc (12/09-12/15), cefepime (12/09-12/15), flagyl (12/09-12/15) -Trend predictive markers Q3 days per Critical care team; CRP, Pro-Calcitonin, Ferritin, Ddimer -Surgery to monitor PTX -ID: meropenem, vancomycin, micafungin -cont heparin ggt for presumed PE given tachypnea, monitor for signs of bleeding NEPHRO #ARF now on HD -12/04: Right femoral HD cath placed -very poor UO, pt requiring daily HD -Continue HD per Nephro GI #Shock Liver - resolved -Liver enzymes also likely elevated 2/2 COVID + state -Appreciate GI recs CV #Tachycardia -s/p AFib now converted to sinus, no further episodes of afib -echo pending COVID -Appreciate Cardio management DVT/GI ppx, Tube Feeding, FULL CODE Time spent on encounter: 55 mins, 31 mins spent on critical care. Critical Care Services performed include: Telemetry Review Hemodynamic measurement interpretation Laboratory data review and interpretation Radiology image review and interpretation Interpretation of ABG's Discussion of patient's care with ICU team, Nursing staff and consulting physicians, Dr. Appiah, Dr. Soriano, Dr. Wilder. Time of note doesn't reflect time of encounter. Subjective Allergies: Coded Allergies: No Known Allergies (Unverified , 11/29/19) Subjective Follow up for acute hypoxic resp failure, COVID19 positive, intubation/sedated, multi-organ failure. Intubated on 80% FiO2, PEEP 3, on pressure support levo 4. RASS -2 Per nurse, sedation turned back on after EEG performed yesterday, pt in sinus tach. On heparin ggt for presumed PE, no signs of bleeding at this time. Tolerating TFs. Unable to obtain ROS due to clinical picture. Objective Last 24 Hour Vital Signs Date Time Temp Pulse Resp B/P (MAP) Pulse Ox O2 Delivery O2 Flow Rate FiO2 12/27/19 07:56 88/50 12/27/19 07:00 124 28 95/53 (67) 100 12/27/19 07:00 124 27 80 12/27/19 06:30 125 22 103/56 (72) 100 12/27/19 06:00 124 27 101/57 (72) 100 12/27/19 05:30 124 24 103/59 (74) 100 12/27/19 05:00 124 24 103/59 (74) 100 12/27/19 04:30 121 26 97/59 (72) 100 12/27/19 04:00 80 12/27/19 04:00 125 18 96/56 (69) 100 12/27/19 04:00 125 12/27/19 04:00 Mechanical Ventilator 12/27/19 03:30 122 19 100/57 (71) 100 12/27/19 03:14 120 29 80 12/27/19 03:00 99.3 120 29 108/68 (81) 100 12/27/19 03:00 108/68 12/27/19 02:30 120 29 109/64 (79) 100 12/27/19 02:00 120 25 110/58 (75) 100 12/27/19 02:00 110/58 5/15/20 01:30 120 25 105/63 (77) 100 12/27/19 01:00 109/65 12/27/19 01:00 119 28 109/65 (80) 100 12/27/19 00:30 118 28 108/65 (79) 100 12/27/19 00:00 107/66 12/27/19 00:00 118 21 107/66 (80) 100 12/27/19 00:00 Mechanical Ventilator 12/26/19 23:30 118 30 103/65 (78) 100 12/26/19 23:10 119 30 80 12/26/19 23:00 108/65 12/26/19 23:00 121 28 107/56 (73) 99 12/26/19 22:30 119 30 121/65 (83) 100 12/26/19 22:00 121/61 12/26/19 22:00 117 37 120/61 (80) 100 12/26/19 21:30 117 38 110/58 (75) 99 12/26/19 21:00 26 102/58 Mechanical Ventilator 80 12/26/19 21:00 102/58 12/26/19 21:00 120 38 102/58 (73) 99 12/26/19 20:30 121 34 119/69 (86) 100 12/26/19 20:00 Mechanical Ventilator 12/26/19 20:00 24 94/51 Mechanical Ventilator 80 12/26/19 20:00 94/51 12/26/19 20:00 80 12/26/19 20:00 120 12/26/19 20:00 99.6 119 39 94/51 (65) 100 12/26/19 19:30 118 39 105/56 (72) 100 12/26/19 19:24 120 38 80 12/26/19 19:00 120 37 105/60 (75) 100 12/26/19 19:00 105/60 12/26/19 18:30 117 37 103/59 (74) 100 12/26/19 18:15 119 24 115/62 (79) 100 12/26/19 18:00 120 39 120/66 (84) 100 12/26/19 18:00 120/66 12/26/19 17:30 114 37 106/62 (77) 100 12/26/19 17:00 113 37 93/57 (69) 94 12/26/19 17:00 93/57 12/26/19 16:30 99.2 110 35 140/72 (94) 97 12/26/19 16:00 Mechanical Ventilator 12/26/19 16:00 123/59 12/26/19 16:00 112 12/26/19 16:00 80 12/26/19 16:00 116 31 123/59 (80) 100 12/26/19 15:30 115 38 126/64 (84) 99 12/26/19 15:00 109 29 113/58 (76) 100 12/26/19 15:00 116 38 80 12/26/19 15:00 113/58 12/26/19 14:45 110 26 116/64 (81) 100 12/26/19 14:30 121/60 12/26/19 14:30 109 26 121/60 (80) 100 12/26/19 14:30 109 26 121/60 (80) 100 12/26/19 14:15 105 23 119/65 (83) 100 12/26/19 14:00 118/66 12/26/19 14:00 106 21 118/66 (83) 100 12/26/19 13:45 114 36 138/71 (93) 99 12/26/19 13:30 98.8 115 36 117/60 (79) 100 12/26/19 13:00 107 29 102/57 (72) 100 12/26/19 13:00 102/57 12/26/19 12:30 106 27 110/58 (75) 100 12/26/19 12:00 105 27 107/63 (78) 100 12/26/19 12:00 107 12/26/19 12:00 107/63 12/26/19 12:00 Mechanical Ventilator 12/26/19 12:00 80 12/26/19 11:30 106 27 107/63 (78) 100 12/26/19 11:00 124/64 12/26/19 11:00 107 27 124/64 (84) 100 12/26/19 11:00 117 38 80 12/26/19 10:30 116 36 118/58 (78) 100 12/26/19 10:00 116 36 120/62 (81) 100 12/26/19 10:00 132/64 12/26/19 09:30 118 37 124/57 (79) 100 12/26/19 09:00 99/51 12/26/19 09:00 113 29 99/51 (67) 100 Intake and Output 12/26/19 12/27/19 19:00 07:00 Intake Total 822.791 ml 1370.838 ml Output Total 1130 ml 10 ml Balance -307.209 ml 1360.838 ml Free Water 160 ml IV Total 402.791 ml 860.838 ml Tube Feeding 420 ml 350 ml Output Urine Total 30 ml 10 ml Stool Total 100 ml Hemodialysis UF 1000 ml # Bowel Movements 80 Laboratory Tests 12/26/19 12:25: Activated Partial Thromboplast Time 61H 12/26/19 20:30: Activated Partial Thromboplast Time 63H 12/27/19 03:53: Activated Partial Thromboplast Time 60H, Sodium Level 134L, Potassium Level 4.0 , Chloride Level 95L, Carbon Dioxide Level 31, Anion Gap 8, Blood Urea Nitrogen 46H, Creatinine 3.5H, Estimat Glomerular Filtration Rate 18.1, Glucose Level 129H, Calcium Level 9.1, Total Bilirubin 0.7, Aspartate Amino Transf (AST/SGOT) 43H, Alanine Aminotransferase (ALT/SGPT) 41, Alkaline Phosphatase 230H, Total Protein 7.5, Albumin 2.1L, Globulin 5.4, Albumin/Globulin Ratio 0.4L, Random Vancomycin Level 20.1 12/27/19 04:00: White Blood Count 37.1*H, Red Blood Count 2.83L, Hemoglobin 8.4L, Hematocrit 25.7L, Mean Corpuscular Volume 91, Mean Corpuscular Hemoglobin 29.5, Mean Corpuscular Hemoglobin Concent 32.5, Red Cell Distribution Width 15.4H, Platelet Count 323, Mean Platelet Volume 6.5, Neutrophils (%) (Auto) , Lymphocytes (%) (Auto) , Monocytes (%) (Auto) , Eosinophils (%) (Auto) , Basophils (%) (Auto) , Neutrophils % (Manual) [Pending], Lymphocytes % (Manual) [Pending], Platelet Estimate [Pending], Platelet Morphology [Pending] Height (Feet): 5 Height (Inches): 6.00 Weight (Pounds): 150 Objective General Appearance: intubated, NG tube in place, in supine position Cardiovascular: sinus tach on tele, HR 120's Respiratory/Chest: ETT in place, equal rise in lungs b/l Abdomen: non distended Ext: no edema noted Theodore Aguayo M.D. December 27, 2019 08:42
--- NOTE | 2019-12-27 09:08 | Urology Progress Note ---
Assessment/Plan Assessment/Plan: 1. Phimosis. 2. Retention. 3. Hematuria. 4. Pyuria. 5. Proteinuria. 6. Acute kidney injury. 7. Meatal stenosis. monitor clinically maintain barnes, placed 12/04 hand irrigate PRN monitor urine output and renal fxn consider renal imaging abx as ordered HD per nephrology f/u on blood cx Subjective Allergies: Coded Allergies: No Known Allergies (Unverified , 11/29/19) Subjective remains on vent, still with minimal urine output, HD Objective Last 24 Hour Vital Signs Date Time Temp Pulse Resp B/P (MAP) Pulse Ox O2 Delivery O2 Flow Rate FiO2 12/27/19 07:56 88/50 12/27/19 07:00 124 28 95/53 (67) 100 12/27/19 07:00 124 27 80 12/27/19 06:30 125 22 103/56 (72) 100 12/27/19 06:00 124 27 101/57 (72) 100 12/27/19 05:30 124 24 103/59 (74) 100 12/27/19 05:00 124 24 103/59 (74) 100 12/27/19 04:30 121 26 97/59 (72) 100 12/27/19 04:00 80 12/27/19 04:00 125 18 96/56 (69) 100 12/27/19 04:00 125 12/27/19 04:00 Mechanical Ventilator 12/27/19 03:30 122 19 100/57 (71) 100 12/27/19 03:14 120 29 80 12/27/19 03:00 99.3 120 29 108/68 (81) 100 12/27/19 03:00 108/68 12/27/19 02:30 120 29 109/64 (79) 100 12/27/19 02:00 120 25 110/58 (75) 100 12/27/19 02:00 110/58 12/27/19 01:30 120 25 105/63 (77) 100 12/27/19 01:00 109/65 12/27/19 01:00 119 28 109/65 (80) 100 12/27/19 00:30 118 28 108/65 (79) 100 12/27/19 00:00 107/66 12/27/19 00:00 118 21 107/66 (80) 100 12/27/19 00:00 Mechanical Ventilator 12/26/19 23:30 118 30 103/65 (78) 100 12/26/19 23:10 119 30 80 12/26/19 23:00 108/65 12/26/19 23:00 121 28 107/56 (73) 99 12/26/19 22:30 119 30 121/65 (83) 100 12/26/19 22:00 121/61 12/26/19 22:00 117 37 120/61 (80) 100 12/26/19 21:30 117 38 110/58 (75) 99 12/26/19 21:00 26 102/58 Mechanical Ventilator 80 12/26/19 21:00 102/58 12/26/19 21:00 120 38 102/58 (73) 99 12/26/19 20:30 121 34 119/69 (86) 100 12/26/19 20:00 Mechanical Ventilator 12/26/19 20:00 24 94/51 Mechanical Ventilator 80 12/26/19 20:00 94/51 12/26/19 20:00 80 12/26/19 20:00 120 12/26/19 20:00 99.6 119 39 94/51 (65) 100 12/26/19 19:30 118 39 105/56 (72) 100 12/26/19 19:24 120 38 80 12/26/19 19:00 120 37 105/60 (75) 100 12/26/19 19:00 105/60 12/26/19 18:30 117 37 103/59 (74) 100 12/26/19 18:15 119 24 115/62 (79) 100 12/26/19 18:00 120 39 120/66 (84) 100 12/26/19 18:00 120/66 12/26/19 17:30 114 37 106/62 (77) 100 12/26/19 17:00 113 37 93/57 (69) 94 12/26/19 17:00 93/57 12/26/19 16:30 99.2 110 35 140/72 (94) 97 12/26/19 16:00 Mechanical Ventilator 12/26/19 16:00 123/59 12/26/19 16:00 112 12/26/19 16:00 80 12/26/19 16:00 116 31 123/59 (80) 100 12/26/19 15:30 115 38 126/64 (84) 99 12/26/19 15:00 109 29 113/58 (76) 100 12/26/19 15:00 116 38 80 12/26/19 15:00 113/58 12/26/19 14:45 110 26 116/64 (81) 100 12/26/19 14:30 121/60 12/26/19 14:30 109 26 121/60 (80) 100 12/26/19 14:30 109 26 121/60 (80) 100 12/26/19 14:15 105 23 119/65 (83) 100 12/26/19 14:00 118/66 12/26/19 14:00 106 21 118/66 (83) 100 12/26/19 13:45 114 36 138/71 (93) 99 12/26/19 13:30 98.8 115 36 117/60 (79) 100 12/26/19 13:00 107 29 102/57 (72) 100 12/26/19 13:00 102/57 12/26/19 12:30 106 27 110/58 (75) 100 12/26/19 12:00 105 27 107/63 (78) 100 12/26/19 12:00 107 12/26/19 12:00 107/63 12/26/19 12:00 Mechanical Ventilator 12/26/19 12:00 80 12/26/19 11:30 106 27 107/63 (78) 100 12/26/19 11:00 124/64 12/26/19 11:00 107 27 124/64 (84) 100 12/26/19 11:00 117 38 80 12/26/19 10:30 116 36 118/58 (78) 100 12/26/19 10:00 116 36 120/62 (81) 100 12/26/19 10:00 132/64 12/26/19 09:30 118 37 124/57 (79) 100 Intake and Output 12/26/19 12/27/19 19:00 07:00 Intake Total 822.791 ml 1370.838 ml Output Total 1130 ml 10 ml Balance -307.209 ml 1360.838 ml Free Water 160 ml IV Total 402.791 ml 860.838 ml Tube Feeding 420 ml 350 ml Output Urine Total 30 ml 10 ml Stool Total 100 ml Hemodialysis UF 1000 ml # Bowel Movements 80 Microbiology Date/Time Source Procedure Growth Status 12/22/19 16:15 Blood Blood Culture - Preliminary NO GROWTH AFTER 4 DAYS Resulted 12/16/19 16:00 Sputum Gram Stain - Final Complete 12/16/19 16:00 Sputum Sputum Culture - Final NORMAL UPPER RESPIRATORY ALISIA PRESENT Complete 12/23/19 04:00 Stool Clostridium difficile Toxin Assay - Final Complete 12/23/19 04:00 Indwelling Cath Urine Culture - Final NO GROWTH AFTER 48 HOURS Complete Current Medications Medications (Trade) Dose Ordered Sig/Vicki Route PRN Reason Start Time Stop Time Status Last Admin Dose Admin Acetaminophen (Tylenol) 650 mg Q4H PRN NG Temp >100.5 12/06/19 14:15 01/05/20 14:14 12/23/19 00:31 Acetaminophen (Tylenol) 650 mg Q4H PRN RECTAL Mild Pain (Pain Scale 1-3) 12/04/19 11:45 01/03/20 11:44 12/06/19 19:17 Chlorhexidine Gluconate (Arely-Hex 2%) 1 applic DAILY@2000 TOPIC 12/05/19 20:00 03/04/20 19:59 12/26/19 20:54 Dextrose (Dextrose 50%) 25 ml Q30M PRN IV Hypoglycemia 11/29/19 14:15 02/27/20 14:14 Dextrose (Dextrose 50%) 50 ml Q30M PRN IV Hypoglycemia 11/29/19 14:15 02/27/20 14:14 Fentanyl Citrate 2500 mcg/Sodium Chloride 250 ml @ 0 mls/hr Q24H IV 12/24/19 16:30 12/31/19 16:29 12/25/19 14:26 Folic Acid (Folate) 1 mg DAILY NG 12/18/19 09:00 01/17/20 08:59 12/27/19 07:54 Heparin Sodium/ Dextrose 500 ml @ 40.38 mls/ hr ADJUST PER PROTOCOL IV 12/27/19 05:00 01/25/20 21:14 12/27/19 04:53 Hydralazine HCl (Apresoline) 10 mg Q4H PRN IV For High Blood Pressure 11/29/19 15:15 02/27/20 15:14 Loperamide HCl (Imodium) 2 mg Q6H PRN NG Diarrhea 12/12/19 12:45 01/11/20 12:44 Meropenem 500 mg/ Sodium Chloride 50 ml @ 100 mls/hr Q24H IVPB 12/24/19 21:30 12/29/19 21:29 12/26/19 21:19 Micafungin Sodium 100 mg/Sodium Chloride 100 ml @ 100 mls/hr Q24H IVPB 12/24/19 22:00 12/31/19 21:59 12/26/19 22:03 Midazolam HCl 100 ml @ 0 mls/hr Q24H PRN IV Restlessness 12/24/19 16:30 12/31/19 16:29 12/25/19 16:31 Midodrine (Pro-Amatine) 10 mg THREE TIMES A DAY ORAL 12/12/19 13:00 03/11/20 12:59 12/27/19 07:54 Norepinephrine Bitartrate 8 mg/ Dextrose 250 ml @ 0 mls/hr Q24H IV 12/18/19 09:00 01/17/20 08:59 12/27/19 07:56 Ondansetron HCl (Zofran) 4 mg Q6H PRN IVP Nausea & Vomiting 11/29/19 14:15 12/29/19 14:14 Pantoprazole (Protonix) 40 mg DAILY IVP 11/30/19 12:15 12/30/19 12:14 12/27/19 07:53 Sevelamer Carbonate (Renvela) 800 mg THREE TIMES A DAY NG 12/22/19 13:00 03/21/20 12:59 12/27/19 07:54 Vancomycin HCl (Vanco rx to dose) 1 ea DAILY PRN MISC Per rx protocol 12/08/19 19:30 01/07/20 19:29 Vancomycin HCl 500 mg/Dextrose 110 ml @ 110 mls/hr ONCE ONCE IVPB 12/27/19 15:00 12/27/19 15:59 Vitamin B Complex/ Vit C/Folic Acid (Nephrovite) 1 tab DAILY NG 12/16/19 09:00 01/15/20 08:59 12/27/19 07:54 Laboratory Tests 12/26/19 12:25: Activated Partial Thromboplast Time 61H 12/26/19 20:30: Activated Partial Thromboplast Time 63H 12/27/19 03:53: Activated Partial Thromboplast Time 60H, Sodium Level 134L, Potassium Level 4.0 , Chloride Level 95L, Carbon Dioxide Level 31, Anion Gap 8, Blood Urea Nitrogen 46H, Creatinine 3.5H, Estimat Glomerular Filtration Rate 18.1, Glucose Level 129H, Calcium Level 9.1, Total Bilirubin 0.7, Aspartate Amino Transf (AST/SGOT) 43H, Alanine Aminotransferase (ALT/SGPT) 41, Alkaline Phosphatase 230H, Total Protein 7.5, Albumin 2.1L, Globulin 5.4, Albumin/Globulin Ratio 0.4L, Random Vancomycin Level 20.1 12/27/19 04:00: White Blood Count 37.1*H, Red Blood Count 2.83L, Hemoglobin 8.4L, Hematocrit 25.7L, Mean Corpuscular Volume 91, Mean Corpuscular Hemoglobin 29.5, Mean Corpuscular Hemoglobin Concent 32.5, Red Cell Distribution Width 15.4H, Platelet Count 323, Mean Platelet Volume 6.5, Neutrophils (%) (Auto) , Lymphocytes (%) (Auto) , Monocytes (%) (Auto) , Eosinophils (%) (Auto) , Basophils (%) (Auto) , Neutrophils % (Manual) [Pending], Lymphocytes % (Manual) [Pending], Platelet Estimate [Pending], Platelet Morphology [Pending] Height (Feet): 5 Height (Inches): 6.00 Weight (Pounds): 150 Objective stable no bleeding at prepuce barnes indwelling, marge urine Kai Berger MD December 27, 2019 09:08
--- NOTE | 2019-12-27 09:19 | NUR ---
NURSE NOTES: Dr. Aguayo @ bedside
[2019-12-27] MEDS ORDERED: Tubing IV Secondary IV ONE (09:27)
[2019-12-27] MEDS ORDERED: NS 275ml ONE (09:27)
[2019-12-27] MEDS: Acetaminophen 650mg/20.3ml NG PRN ×2 (09:31→20:04)
--- NOTE | 2019-12-27 10:05 | NUR ---
NURSE NOTES: Oral care done and pt repositioned. Pt shows no signs of acute distress.
--- NOTE | 2019-12-27 10:06 | General Progress Note ---
Assessment/Plan Problem List: (1) Elevated LFTs ICD Codes: R79.89 - Other specified abnormal findings of blood chemistry SNOMED: 836839906, 563482503 (2) HTN (hypertension) ICD Codes: I10 - Essential (primary) hypertension SNOMED: 39319426 (3) Suspected COVID-19 virus infection ICD Codes: R68.89 - Other general symptoms and signs SNOMED: 405248529 (4) Pneumonia ICD Codes: J18.9 - Pneumonia, unspecified organism SNOMED: 112733629 (5) Respiratory distress ICD Codes: R06.03 - Acute respiratory distress SNOMED: 095618571 (6) Pneumomediastinum ICD Codes: J98.2 - Interstitial emphysema SNOMED: 52127962 (7) COVID-19 ICD Codes: U07.1 - COVID-19 SNOMED: 265256460 (8) Hypotension ICD Codes: I95.9 - Hypotension, unspecified SNOMED: 17213084 Assessment/Plan: NGTF rectal tube in place elevated LFTS most likely due to shock liver>>> improving repeat labs in am hepatitis panel>>>Neg fu nephrology recent labs and notes reviewed D/W the nurse Subjective ROS Limited/Unobtainable: No Allergies: Coded Allergies: No Known Allergies (Unverified , 11/29/19) Objective Last 24 Hour Vital Signs Date Time Temp Pulse Resp B/P (MAP) Pulse Ox O2 Delivery O2 Flow Rate FiO2 12/27/19 09:30 123 30 110/57 (74) 100 12/27/19 09:00 123 29 114/61 (78) 100 12/27/19 08:30 124 30 105/56 (72) 100 12/27/19 08:00 80 12/27/19 08:00 99.9 126 28 87/49 (62) 100 12/27/19 08:00 Mechanical Ventilator 12/27/19 07:56 88/50 12/27/19 07:30 125 26 89/53 (65) 100 12/27/19 07:00 124 28 95/53 (67) 100 12/27/19 07:00 124 27 80 12/27/19 06:30 125 22 103/56 (72) 100 12/27/19 06:00 124 27 101/57 (72) 100 12/27/19 05:30 124 24 103/59 (74) 100 12/27/19 05:00 124 24 103/59 (74) 100 12/27/19 04:30 121 26 97/59 (72) 100 12/27/19 04:00 80 12/27/19 04:00 125 18 96/56 (69) 100 12/27/19 04:00 125 12/27/19 04:00 Mechanical Ventilator 12/27/19 03:30 122 19 100/57 (71) 100 12/27/19 03:14 120 29 80 12/27/19 03:00 99.3 120 29 108/68 (81) 100 12/27/19 03:00 108/68 12/27/19 02:30 120 29 109/64 (79) 100 12/27/19 02:00 120 25 110/58 (75) 100 12/27/19 02:00 110/58 12/27/19 01:30 120 25 105/63 (77) 100 12/27/19 01:00 109/65 12/27/19 01:00 119 28 109/65 (80) 100 12/27/19 00:30 118 28 108/65 (79) 100 12/27/19 00:00 107/66 12/27/19 00:00 118 21 107/66 (80) 100 12/27/19 00:00 Mechanical Ventilator 12/26/19 23:30 118 30 103/65 (78) 100 12/26/19 23:10 119 30 80 12/26/19 23:00 108/65 12/26/19 23:00 121 28 107/56 (73) 99 12/26/19 22:30 119 30 121/65 (83) 100 12/26/19 22:00 121/61 12/26/19 22:00 117 37 120/61 (80) 100 12/26/19 21:30 117 38 110/58 (75) 99 12/26/19 21:00 26 102/58 Mechanical Ventilator 80 12/26/19 21:00 102/58 12/26/19 21:00 120 38 102/58 (73) 99 12/26/19 20:30 121 34 119/69 (86) 100 12/26/19 20:00 Mechanical Ventilator 12/26/19 20:00 24 94/51 Mechanical Ventilator 80 5/14/20 20:00 94/51 12/26/19 20:00 80 12/26/19 20:00 120 12/26/19 20:00 99.6 119 39 94/51 (65) 100 12/26/19 19:30 118 39 105/56 (72) 100 12/26/19 19:24 120 38 80 12/26/19 19:00 120 37 105/60 (75) 100 12/26/19 19:00 105/60 12/26/19 18:30 117 37 103/59 (74) 100 12/26/19 18:15 119 24 115/62 (79) 100 12/26/19 18:00 120 39 120/66 (84) 100 12/26/19 18:00 120/66 12/26/19 17:30 114 37 106/62 (77) 100 12/26/19 17:00 113 37 93/57 (69) 94 12/26/19 17:00 93/57 12/26/19 16:30 99.2 110 35 140/72 (94) 97 12/26/19 16:00 Mechanical Ventilator 12/26/19 16:00 123/59 12/26/19 16:00 112 12/26/19 16:00 80 12/26/19 16:00 116 31 123/59 (80) 100 12/26/19 15:30 115 38 126/64 (84) 99 12/26/19 15:00 109 29 113/58 (76) 100 12/26/19 15:00 116 38 80 12/26/19 15:00 113/58 12/26/19 14:45 110 26 116/64 (81) 100 12/26/19 14:30 121/60 12/26/19 14:30 109 26 121/60 (80) 100 12/26/19 14:30 109 26 121/60 (80) 100 12/26/19 14:15 105 23 119/65 (83) 100 12/26/19 14:00 118/66 12/26/19 14:00 106 21 118/66 (83) 100 12/26/19 13:45 114 36 138/71 (93) 99 12/26/19 13:30 98.8 115 36 117/60 (79) 100 12/26/19 13:00 107 29 102/57 (72) 100 12/26/19 13:00 102/57 12/26/19 12:30 106 27 110/58 (75) 100 12/26/19 12:00 105 27 107/63 (78) 100 12/26/19 12:00 107 12/26/19 12:00 107/63 12/26/19 12:00 Mechanical Ventilator 12/26/19 12:00 80 12/26/19 11:30 106 27 107/63 (78) 100 12/26/19 11:00 124/64 12/26/19 11:00 107 27 124/64 (84) 100 12/26/19 11:00 117 38 80 12/26/19 10:30 116 36 118/58 (78) 100 Intake and Output 12/26/19 12/27/19 19:00 07:00 Intake Total 822.791 ml 1370.838 ml Output Total 1130 ml 10 ml Balance -307.209 ml 1360.838 ml Free Water 160 ml IV Total 402.791 ml 860.838 ml Tube Feeding 420 ml 350 ml Output Urine Total 30 ml 10 ml Stool Total 100 ml Hemodialysis UF 1000 ml # Bowel Movements 80 Laboratory Tests 12/26/19 12:25: Activated Partial Thromboplast Time 61H 12/26/19 20:30: Activated Partial Thromboplast Time 63H 12/27/19 03:53: Activated Partial Thromboplast Time 60H, Sodium Level 134L, Potassium Level 4.0 , Chloride Level 95L, Carbon Dioxide Level 31, Anion Gap 8, Blood Urea Nitrogen 46H, Creatinine 3.5H, Estimat Glomerular Filtration Rate 18.1, Glucose Level 129H, Calcium Level 9.1, Total Bilirubin 0.7, Aspartate Amino Transf (AST/SGOT) 43H, Alanine Aminotransferase (ALT/SGPT) 41, Alkaline Phosphatase 230H, Total Protein 7.5, Albumin 2.1L, Globulin 5.4, Albumin/Globulin Ratio 0.4L, Random Vancomycin Level 20.1 12/27/19 04:00: White Blood Count 37.1*H, Red Blood Count 2.83L, Hemoglobin 8.4L, Hematocrit 25.7L, Mean Corpuscular Volume 91, Mean Corpuscular Hemoglobin 29.5, Mean Corpuscular Hemoglobin Concent 32.5, Red Cell Distribution Width 15.4H, Platelet Count 323, Mean Platelet Volume 6.5, Neutrophils (%) (Auto) , Lymphocytes (%) (Auto) , Monocytes (%) (Auto) , Eosinophils (%) (Auto) , Basophils (%) (Auto) , Differential Total Cells Counted 100, Neutrophils % ( Manual) 88H, Lymphocytes % (Manual) 2L, Monocytes % (Manual) 9, Eosinophils % ( Manual) 0, Basophils % (Manual) 0, Band Neutrophils 1, Platelet Estimate Adequate, Platelet Morphology Normal, Hypochromasia 1+, Anisocytosis 1+ Height (Feet): 5 Height (Inches): 6.00 Weight (Pounds): 150 General Appearance: lethargic EENT: normal ENT inspection Neck: supple Cardiovascular: tachycardia Respiratory/Chest: decreased breath sounds Abdomen: soft, hypoactive bowel sounds Extremities: non-tender João Rdz MD December 27, 2019 10:06
--- NOTE | 2019-12-27 11:01 | NUR ---
NURSE NOTES: PTT sent to lab. temp now 99.4 axillary.
--- NOTE | 2019-12-27 11:14 | NUR ---
CASE MANAGEMENT:REVIEW 12/27/19 SI: COVID 19 PNA. INTUBATED 99.8 123 28 94/53 99% ON VENT SUPPORT W/80% FIO2 WBC+37.1 H/H-8.4/25.7 BUN+46 CR+3.5 IS: IV VANCOMYCIN X1 HEPARIN GTT IV MICAFUNGIN Q24 IV MEROPENEM Q24 LEVOPHED GTT : ICU STATUS DCP: PATIENT IS FROM HOME
[2019-12-27] MEDS: fentaNYL 2500mcg/NS 250ml IV SCH (11:25)
--- NOTE | 2019-12-27 11:53 | Pulmonology Progress Note ---
Subjective ROS Limited/Unobtainable: No Interval Events: Intubated ;proning on hold due to facial decubitus Constitutional: Reports: other - on vent, less pressors ; Denies: fever HEENT: Repors: no symptoms Respiratory: Reports: no symptoms Cardiovascular: Reports: no symptoms Gastrointestinal/Abdominal: Reports: other - + rectal tube ; Denies: nausea, vomiting Genitourinary: Reports: no symptoms Psychiatric: Reports: other - NA Skin: Denies: rash Musculoskeletal: Reports: other - NA Allergies: Coded Allergies: No Known Allergies (Unverified , 11/29/19) All Systems: reviewed and negative except above Subjective On daily HD Objective Last 24 Hour Vital Signs Date Time Temp Pulse Resp B/P (MAP) Pulse Ox O2 Delivery O2 Flow Rate FiO2 12/27/19 11:25 28 98/58 Mechanical Ventilator 15.0 80 12/27/19 10:30 123 28 80 12/27/19 10:01 99.8 12/27/19 10:00 123 27 94/53 (67) 99 12/27/19 09:30 123 30 110/57 (74) 100 12/27/19 09:00 123 29 114/61 (78) 100 12/27/19 08:30 124 30 105/56 (72) 100 12/27/19 08:00 126 12/27/19 08:00 80 12/27/19 08:00 29 122/75 Mechanical Ventilator 80 12/27/19 08:00 99.9 126 28 87/49 (62) 100 12/27/19 08:00 Mechanical Ventilator 12/27/19 07:56 88/50 12/27/19 07:30 125 26 89/53 (65) 100 12/27/19 07:00 124 28 95/53 (67) 100 12/27/19 07:00 124 27 80 12/27/19 06:30 125 22 103/56 (72) 100 12/27/19 06:00 124 27 101/57 (72) 100 12/27/19 05:30 124 24 103/59 (74) 100 12/27/19 05:00 124 24 103/59 (74) 100 12/27/19 04:30 121 26 97/59 (72) 100 12/27/19 04:00 80 12/27/19 04:00 125 18 96/56 (69) 100 12/27/19 04:00 125 12/27/19 04:00 Mechanical Ventilator 12/27/19 03:30 122 19 100/57 (71) 100 12/27/19 03:14 120 29 80 12/27/19 03:00 99.3 120 29 108/68 (81) 100 12/27/19 03:00 108/68 12/27/19 02:30 120 29 109/64 (79) 100 12/27/19 02:00 120 25 110/58 (75) 100 12/27/19 02:00 110/58 12/27/19 01:30 120 25 105/63 (77) 100 12/27/19 01:00 109/65 12/27/19 01:00 119 28 109/65 (80) 100 12/27/19 00:30 118 28 108/65 (79) 100 12/27/19 00:00 107/66 12/27/19 00:00 118 21 107/66 (80) 100 12/27/19 00:00 Mechanical Ventilator 12/26/19 23:30 118 30 103/65 (78) 100 12/26/19 23:10 119 30 80 12/26/19 23:00 108/65 12/26/19 23:00 121 28 107/56 (73) 99 12/26/19 22:30 119 30 121/65 (83) 100 12/26/19 22:00 121/61 12/26/19 22:00 117 37 120/61 (80) 100 12/26/19 21:30 117 38 110/58 (75) 99 12/26/19 21:00 26 102/58 Mechanical Ventilator 80 12/26/19 21:00 102/58 12/26/19 21:00 120 38 102/58 (73) 99 12/26/19 20:30 121 34 119/69 (86) 100 12/26/19 20:00 Mechanical Ventilator 12/26/19 20:00 24 94/51 Mechanical Ventilator 80 12/26/19 20:00 94/51 12/26/19 20:00 80 12/26/19 20:00 120 12/26/19 20:00 99.6 119 39 94/51 (65) 100 12/26/19 19:30 118 39 105/56 (72) 100 12/26/19 19:24 120 38 80 12/26/19 19:00 120 37 105/60 (75) 100 12/26/19 19:00 105/60 12/26/19 18:30 117 37 103/59 (74) 100 12/26/19 18:15 119 24 115/62 (79) 100 12/26/19 18:00 120 39 120/66 (84) 100 12/26/19 18:00 120/66 12/26/19 17:30 114 37 106/62 (77) 100 12/26/19 17:00 113 37 93/57 (69) 94 12/26/19 17:00 93/57 12/26/19 16:30 99.2 110 35 140/72 (94) 97 12/26/19 16:00 Mechanical Ventilator 12/26/19 16:00 123/59 12/26/19 16:00 112 12/26/19 16:00 80 12/26/19 16:00 116 31 123/59 (80) 100 12/26/19 15:30 115 38 126/64 (84) 99 12/26/19 15:00 109 29 113/58 (76) 100 12/26/19 15:00 116 38 80 12/26/19 15:00 113/58 12/26/19 14:45 110 26 116/64 (81) 100 12/26/19 14:30 121/60 12/26/19 14:30 109 26 121/60 (80) 100 12/26/19 14:30 109 26 121/60 (80) 100 12/26/19 14:15 105 23 119/65 (83) 100 12/26/19 14:00 118/66 12/26/19 14:00 106 21 118/66 (83) 100 12/26/19 13:45 114 36 138/71 (93) 99 12/26/19 13:30 98.8 115 36 117/60 (79) 100 12/26/19 13:00 107 29 102/57 (72) 100 12/26/19 13:00 102/57 12/26/19 12:30 106 27 110/58 (75) 100 12/26/19 12:00 105 27 107/63 (78) 100 12/26/19 12:00 107 12/26/19 12:00 107/63 12/26/19 12:00 Mechanical Ventilator 12/26/19 12:00 80 Intake and Output 12/26/19 12/27/19 19:00 07:00 Intake Total 822.791 ml 1370.838 ml Output Total 1130 ml 10 ml Balance -307.209 ml 1360.838 ml Free Water 160 ml IV Total 402.791 ml 860.838 ml Tube Feeding 420 ml 350 ml Output Urine Total 30 ml 10 ml Stool Total 100 ml Hemodialysis UF 1000 ml # Bowel Movements 80 General Appearance: no acute distress HEENT: normocephalic, atraumatic, anicteric Respiratory/Chest: chest wall non-tender, decreased breath sounds Cardiovascular: normal peripheral pulses, normal rate Abdomen: normal bowel sounds, soft, non tender, no organomegaly, non distended Genitourinary: other - + barnes Extremities: no cyanosis Skin: no rash Neurologic/Psychiatric: core measures abstractor II-XII grossly normal, alert, responsive Lymphatic: no neck adenopathy Musculoskeletal: no effusion Laboratory Tests 12/26/19 12:25: Activated Partial Thromboplast Time 61H 12/26/19 20:30: Activated Partial Thromboplast Time 63H 12/27/19 03:53: Activated Partial Thromboplast Time 60H, Sodium Level 134L, Potassium Level 4.0 , Chloride Level 95L, Carbon Dioxide Level 31, Anion Gap 8, Blood Urea Nitrogen 46H, Creatinine 3.5H, Estimat Glomerular Filtration Rate 18.1, Glucose Level 129H, Calcium Level 9.1, Total Bilirubin 0.7, Aspartate Amino Transf (AST/SGOT) 43H, Alanine Aminotransferase (ALT/SGPT) 41, Alkaline Phosphatase 230H, Total Protein 7.5, Albumin 2.1L, Globulin 5.4, Albumin/Globulin Ratio 0.4L, Random Vancomycin Level 20.1 12/27/19 04:00: White Blood Count 37.1*H, Red Blood Count 2.83L, Hemoglobin 8.4L, Hematocrit 25.7L, Mean Corpuscular Volume 91, Mean Corpuscular Hemoglobin 29.5, Mean Corpuscular Hemoglobin Concent 32.5, Red Cell Distribution Width 15.4H, Platelet Count 323, Mean Platelet Volume 6.5, Neutrophils (%) (Auto) , Lymphocytes (%) (Auto) , Monocytes (%) (Auto) , Eosinophils (%) (Auto) , Basophils (%) (Auto) , Differential Total Cells Counted 100, Neutrophils % ( Manual) 88H, Lymphocytes % (Manual) 2L, Monocytes % (Manual) 9, Eosinophils % ( Manual) 0, Basophils % (Manual) 0, Band Neutrophils 1, Platelet Estimate Adequate, Platelet Morphology Normal, Hypochromasia 1+, Anisocytosis 1+ 12/27/19 11:00: Activated Partial Thromboplast Time 68H Current Medications Medications (Trade) Dose Ordered Sig/Vicki Route PRN Reason Start Time Stop Time Status Last Admin Dose Admin Acetaminophen (Tylenol) 650 mg Q4H PRN NG Temp >100.5 12/06/19 14:15 01/05/20 14:14 12/27/19 09:31 Acetaminophen (Tylenol) 650 mg Q4H PRN RECTAL Mild Pain (Pain Scale 1-3) 12/04/19 11:45 01/03/20 11:44 12/06/19 19:17 Chlorhexidine Gluconate (Arely-Hex 2%) 1 applic DAILY@2000 TOPIC 12/05/19 20:00 03/04/20 19:59 12/26/19 20:54 Dextrose (Dextrose 50%) 25 ml Q30M PRN IV Hypoglycemia 11/29/19 14:15 02/27/20 14:14 Dextrose (Dextrose 50%) 50 ml Q30M PRN IV Hypoglycemia 11/29/19 14:15 02/27/20 14:14 Fentanyl Citrate 250 ml @ 0 mls/hr Q24H IV 12/27/19 11:00 03/26/20 10:59 12/27/19 11:25 Folic Acid (Folate) 1 mg DAILY NG 12/18/19 09:00 01/17/20 08:59 12/27/19 07:54 Heparin Sodium/ Dextrose 500 ml @ 40.38 mls/ hr ADJUST PER PROTOCOL IV 12/27/19 05:00 01/25/20 21:14 12/27/19 11:29 Hydralazine HCl (Apresoline) 10 mg Q4H PRN IV For High Blood Pressure 11/29/19 15:15 02/27/20 15:14 Loperamide HCl (Imodium) 2 mg Q6H PRN NG Diarrhea 12/12/19 12:45 01/11/20 12:44 Meropenem 500 mg/ Sodium Chloride 50 ml @ 100 mls/hr Q24H IVPB 12/24/19 21:30 12/29/19 21:29 12/26/19 21:19 Micafungin Sodium 100 mg/Sodium Chloride 100 ml @ 100 mls/hr Q24H IVPB 12/24/19 22:00 12/31/19 21:59 12/26/19 22:03 Midazolam HCl 100 ml @ 0 mls/hr Q24H PRN IV Restlessness 12/24/19 16:30 12/31/19 16:29 12/25/19 16:31 Midodrine (Pro-Amatine) 10 mg THREE TIMES A DAY NG 12/27/19 13:00 03/11/20 12:59 Norepinephrine Bitartrate 8 mg/ Dextrose 250 ml @ 0 mls/hr Q24H IV 12/18/19 09:00 01/17/20 08:59 12/27/19 07:56 Ondansetron HCl (Zofran) 4 mg Q6H PRN IVP Nausea & Vomiting 11/29/19 14:15 12/29/19 14:14 Pantoprazole (Protonix) 40 mg DAILY IVP 11/30/19 12:15 12/30/19 12:14 12/27/19 07:53 Sevelamer Carbonate (Renvela) 800 mg THREE TIMES A DAY NG 12/22/19 13:00 03/21/20 12:59 12/27/19 07:54 Vancomycin HCl (Vanco rx to dose) 1 ea DAILY PRN MISC Per rx protocol 12/08/19 19:30 01/07/20 19:29 Vancomycin HCl 500 mg/Dextrose 110 ml @ 110 mls/hr ONCE ONCE IVPB 12/27/19 15:00 12/27/19 15:59 Vitamin B Complex/ Vit C/Folic Acid (Nephrovite) 1 tab DAILY NG 12/16/19 09:00 01/15/20 08:59 12/27/19 07:54 Assessment/Plan Assessment/Plan IMPRESSION: 1. Bilateral pneumonia. 2. Positive COVID-19. 3. Respiratory failure. DISCUSSION: Intubated On AC 20; FiO2 100; PEEP 3; SaO2 99% Oxygenation stable On empiric IV heparin for possible PE Mediastinal PTX; stable; continue low PEEP ventilation Hold proning On Fentanyl due to high triglycerides On HD now S/p Actemra Continue PEEP 3 Continue vent Tray Tolentino Omar Syed MD December 27, 2019 11:53
--- NOTE | 2019-12-27 12:12 | Nephrology Progress Note ---
Assessment/Plan Plan #ALBARO- concerns for developing ischemic ATN in the setting of sepsis- r/o vanco toxicity - r/o COVID nephropathy - now with likely ATN #Hyperkalemia due to renal insuffiency - exacerbated by acidosis #COID sepsis #COVID pneumonia #hypoxemic respiratary failure #HTN- now in shock #mediastinal PTX - next HD today - fio2 up to 100 - concerns for PE - started on heparin drip for PE - neuro eval for - lack of response off sedation - midodorine 10mg q8hr - add sevelamer 800mg TID - monitor I&Os - daily weights - monitor lytes closely -add nephrovite - GOALS of care discussion - continue pressor support to maintain MAP > 65- continue levo - continue fentanyl dip - abx per ID- on vanco and meropenem - vent management per pulm -Abd Xray shows mediastinal PTX - too high risk for thorocotomy Subjective ROS Limited/Unobtainable: Yes Subjective plan for gain HD today again fio2 80 today concerns for PE started on heparin drip for PE not responsive off sedation neurology consulted remains oliguric on levo Abd Xray shows mediastinal PTX Objective Objective Last 24 Hour Vital Signs Date Time Temp Pulse Resp B/P (MAP) Pulse Ox O2 Delivery O2 Flow Rate FiO2 12/27/19 11:25 28 98/58 Mechanical Ventilator 15.0 80 12/27/19 10:30 123 28 80 12/27/19 10:01 99.8 12/27/19 10:00 123 27 94/53 (67) 99 12/27/19 09:30 123 30 110/57 (74) 100 12/27/19 09:00 123 29 114/61 (78) 100 12/27/19 08:30 124 30 105/56 (72) 100 12/27/19 08:00 126 12/27/19 08:00 80 12/27/19 08:00 29 122/75 Mechanical Ventilator 80 12/27/19 08:00 99.9 126 28 87/49 (62) 100 12/27/19 08:00 Mechanical Ventilator 12/27/19 07:56 88/50 12/27/19 07:30 125 26 89/53 (65) 100 12/27/19 07:00 124 28 95/53 (67) 100 12/27/19 07:00 124 27 80 12/27/19 06:30 125 22 103/56 (72) 100 12/27/19 06:00 124 27 101/57 (72) 100 12/27/19 05:30 124 24 103/59 (74) 100 12/27/19 05:00 124 24 103/59 (74) 100 12/27/19 04:30 121 26 97/59 (72) 100 12/27/19 04:00 80 12/27/19 04:00 125 18 96/56 (69) 100 12/27/19 04:00 125 12/27/19 04:00 Mechanical Ventilator 12/27/19 03:30 122 19 100/57 (71) 100 12/27/19 03:14 120 29 80 12/27/19 03:00 99.3 120 29 108/68 (81) 100 12/27/19 03:00 108/68 12/27/19 02:30 120 29 109/64 (79) 100 12/27/19 02:00 120 25 110/58 (75) 100 12/27/19 02:00 110/58 12/27/19 01:30 120 25 105/63 (77) 100 12/27/19 01:00 109/65 12/27/19 01:00 119 28 109/65 (80) 100 12/27/19 00:30 118 28 108/65 (79) 100 12/27/19 00:00 107/66 12/27/19 00:00 118 21 107/66 (80) 100 12/27/19 00:00 Mechanical Ventilator 12/26/19 23:30 118 30 103/65 (78) 100 12/26/19 23:10 119 30 80 12/26/19 23:00 108/65 12/26/19 23:00 121 28 107/56 (73) 99 12/26/19 22:30 119 30 121/65 (83) 100 12/26/19 22:00 121/61 12/26/19 22:00 117 37 120/61 (80) 100 12/26/19 21:30 117 38 110/58 (75) 99 12/26/19 21:00 26 102/58 Mechanical Ventilator 80 12/26/19 21:00 102/58 12/26/19 21:00 120 38 102/58 (73) 99 12/26/19 20:30 121 34 119/69 (86) 100 12/26/19 20:00 Mechanical Ventilator 12/26/19 20:00 24 94/51 Mechanical Ventilator 80 12/26/19 20:00 94/51 12/26/19 20:00 80 12/26/19 20:00 120 12/26/19 20:00 99.6 119 39 94/51 (65) 100 12/26/19 19:30 118 39 105/56 (72) 100 12/26/19 19:24 120 38 80 12/26/19 19:00 120 37 105/60 (75) 100 12/26/19 19:00 105/60 12/26/19 18:30 117 37 103/59 (74) 100 12/26/19 18:15 119 24 115/62 (79) 100 12/26/19 18:00 120 39 120/66 (84) 100 12/26/19 18:00 120/66 12/26/19 17:30 114 37 106/62 (77) 100 12/26/19 17:00 113 37 93/57 (69) 94 12/26/19 17:00 93/57 12/26/19 16:30 99.2 110 35 140/72 (94) 97 12/26/19 16:00 Mechanical Ventilator 12/26/19 16:00 123/59 12/26/19 16:00 112 12/26/19 16:00 80 12/26/19 16:00 116 31 123/59 (80) 100 12/26/19 15:30 115 38 126/64 (84) 99 12/26/19 15:00 109 29 113/58 (76) 100 12/26/19 15:00 116 38 80 12/26/19 15:00 113/58 12/26/19 14:45 110 26 116/64 (81) 100 12/26/19 14:30 121/60 12/26/19 14:30 109 26 121/60 (80) 100 12/26/19 14:30 109 26 121/60 (80) 100 12/26/19 14:15 105 23 119/65 (83) 100 12/26/19 14:00 118/66 12/26/19 14:00 106 21 118/66 (83) 100 12/26/19 13:45 114 36 138/71 (93) 99 12/26/19 13:30 98.8 115 36 117/60 (79) 100 12/26/19 13:00 107 29 102/57 (72) 100 12/26/19 13:00 102/57 12/26/19 12:30 106 27 110/58 (75) 100 Intake and Output 12/26/19 12/27/19 19:00 07:00 Intake Total 822.791 ml 1370.838 ml Output Total 1130 ml 10 ml Balance -307.209 ml 1360.838 ml Free Water 160 ml IV Total 402.791 ml 860.838 ml Tube Feeding 420 ml 350 ml Output Urine Total 30 ml 10 ml Stool Total 100 ml Hemodialysis UF 1000 ml # Bowel Movements 80 Laboratory Tests 12/26/19 12:25: Activated Partial Thromboplast Time 61H 12/26/19 20:30: Activated Partial Thromboplast Time 63H 12/27/19 03:53: Activated Partial Thromboplast Time 60H, Sodium Level 134L, Potassium Level 4.0 , Chloride Level 95L, Carbon Dioxide Level 31, Anion Gap 8, Blood Urea Nitrogen 46H, Creatinine 3.5H, Estimat Glomerular Filtration Rate 18.1, Glucose Level 129H, Calcium Level 9.1, Total Bilirubin 0.7, Aspartate Amino Transf (AST/SGOT) 43H, Alanine Aminotransferase (ALT/SGPT) 41, Alkaline Phosphatase 230H, Total Protein 7.5, Albumin 2.1L, Globulin 5.4, Albumin/Globulin Ratio 0.4L, Random Vancomycin Level 20.1 12/27/19 04:00: White Blood Count 37.1*H, Red Blood Count 2.83L, Hemoglobin 8.4L, Hematocrit 25.7L, Mean Corpuscular Volume 91, Mean Corpuscular Hemoglobin 29.5, Mean Corpuscular Hemoglobin Concent 32.5, Red Cell Distribution Width 15.4H, Platelet Count 323, Mean Platelet Volume 6.5, Neutrophils (%) (Auto) , Lymphocytes (%) (Auto) , Monocytes (%) (Auto) , Eosinophils (%) (Auto) , Basophils (%) (Auto) , Differential Total Cells Counted 100, Neutrophils % ( Manual) 88H, Lymphocytes % (Manual) 2L, Monocytes % (Manual) 9, Eosinophils % ( Manual) 0, Basophils % (Manual) 0, Band Neutrophils 1, Platelet Estimate Adequate, Platelet Morphology Normal, Hypochromasia 1+, Anisocytosis 1+ 12/27/19 11:00: Activated Partial Thromboplast Time 68H Height (Feet): 5 Height (Inches): 6.00 Weight (Pounds): 150 Objective General Appearance: other - intubated- proned Lines, tubes and drains: central line HEENT: normocephalic, atraumatic Respiratory/Chest: rhonchi - bilaterally Cardiovascular/Chest: other - tachycardic Extremities: pitting Dorian Soriano M.D. December 27, 2019 12:11
--- NOTE | 2019-12-27 12:37 | NUR ---
NURSE NOTES: HD nurse Young @ bedside aware of HD scheduled again for tomorrow.
[2019-12-27] MEDS: Midodrine 10mg tab NG SCH ×2 (12:49→17:26)
--- NOTE | 2019-12-27 13:16 | NUR ---
NURSE NOTES: Dr. Wilder @ bedside with EEG results. Let him know that the family keeps calling about results. He said he will call the family after he assesses him
--- NOTE | 2019-12-27 13:37 | Neurology Progress Note ---
Interim History Interim History Interim History Mr. Wade Covarrubias is a 60-year-old, gentleman, of unknown handedness, who was exposed to his son who had COVID-19 at home. He came into the [facility] emergency room on 11/29/2019 with a 3-day history of shortness of breath a mild cough and a feeling of being unwell. He was found to be COVID-19 positive and his disease manifested with respiratory failure, sepsis, renal failure, and hepatic failure. He has been treated for all those problems and until a few days ago when his sedation would be decreased he would respond to uncomfortable stimuli. However in the last few days he has not responded at all to any external stimuli. His sedation has been completely discontinued since approximately 1900 hrs. on 12/25/2019. The patient has been unresponsive in spite of that. At this point in time he is undergoing hemodialysis. He does not respond even to deep painful stimuli. He is still overbreathing the ventilator. His nurse has not seen any improvement in his medical or neurological condition. Review of Systems Neuro Review of Systems Unable to obtain. Objective Physical Exam Last Vital Signs Date Time Temp Pulse Resp B/P (MAP) Pulse Ox O2 Delivery O2 Flow Rate FiO2 12/27/19 13:00 123 27 103/60 (74) 98 12/27/19 12:00 Mechanical Ventilator 12/27/19 12:00 80 12/27/19 12:00 99.2 12/27/19 11:25 15.0 Laboratory Tests Test 12/26/19 20:30 12/27/19 03:53 12/27/19 04:00 12/27/19 11:00 Activated Partial Thromboplast Time 63 SEC (23-33) H 60 SEC (23-33) H 68 SEC (23-33) H Sodium Level 134 MMOL/L (136-145) L Potassium Level 4.0 MMOL/L (3.5-5.1) Chloride Level 95 MMOL/L (98-107) L Carbon Dioxide Level 31 MMOL/L (21-32) Anion Gap 8 mmol/L (5-15) Blood Urea Nitrogen 46 mg/dL (7-18) H Creatinine 3.5 MG/DL (0.55-1.30) H Estimat Glomerular Filtration Rate 18.1 mL/min (>60) Glucose Level 129 MG/DL (74-106) H Calcium Level 9.1 MG/DL (8.5-10.1) Total Bilirubin 0.7 MG/DL (0.2-1.0) Aspartate Amino Transf (AST/SGOT) 43 U/L (15-37) H Alanine Aminotransferase (ALT/SGPT) 41 U/L (12-78) Alkaline Phosphatase 230 U/L (46-116) H Total Protein 7.5 G/DL (6.4-8.2) Albumin 2.1 G/DL (3.4-5.0) L Globulin 5.4 g/dL Albumin/Globulin Ratio 0.4 (1.0-2.7) L Random Vancomycin Level 20.1 ug/mL White Blood Count 37.1 K/UL (4.8-10.8) *H Red Blood Count 2.83 M/UL (4.70-6.10) L Hemoglobin 8.4 G/DL (14.2-18.0) L Hematocrit 25.7 % (42.0-52.0) L Mean Corpuscular Volume 91 FL (80-99) Mean Corpuscular Hemoglobin 29.5 PG (27.0-31.0) Mean Corpuscular Hemoglobin Concent 32.5 G/DL (32.0-36.0) Red Cell Distribution Width 15.4 % (11.6-14.8) H Platelet Count 323 K/UL (150-450) Mean Platelet Volume 6.5 FL (6.5-10.1) Neutrophils (%) (Auto) % (45.0-75.0) Lymphocytes (%) (Auto) % (20.0-45.0) Monocytes (%) (Auto) % (1.0-10.0) Eosinophils (%) (Auto) % (0.0-3.0) Basophils (%) (Auto) % (0.0-2.0) Differential Total Cells Counted 100 Neutrophils % (Manual) 88 % (45-75) H Lymphocytes % (Manual) 2 % (20-45) L Monocytes % (Manual) 9 % (1-10) Eosinophils % (Manual) 0 % (0-3) Basophils % (Manual) 0 % (0-2) Band Neutrophils 1 % (0-8) Platelet Estimate Adequate Platelet Morphology Normal Hypochromasia 1+ Anisocytosis 1+ Neurologic Exam Objective PHYSICAL EXAMINATION: GENERAL: He is a well-developed, relatively well-nourished, gentleman, lying in an ICU bed connected to ventilator via an orotracheal tube. HEAD: Normocephalic and atraumatic. NECK: No neck rigidity was observed. NEUROLOGIC EXAMINATION: MENTAL STATUS EXAMINATION: The patient was unresponsive even to deep painful stimuli. SPEECH: Could not be tested. LANGUAGE: Could not be tested. CRANIAL NERVE EXAMINATION: II: He did not blink to threat. III, IV, : External ocular movements were present but significantly restricted on oculocephalic eye movements. The pupils were 3 mm in diameter and did not react to light. V-VII: The corneal reflexes were absent bilaterally. VIII: He did not respond to sounds and had no nystagmus. IX-X: The gag reflex was absent on manipulating the endotracheal tube. XI: The sternocleidomastoids and trapezii did not function. XII: The tongue could not be examined adequately. MOTOR SYSTEM: The tone was normal in all 4 extremities. Examination of muscle mass revealed no focal wasting. Examination of power was impossible to perform because even on applying deep painful stimuli no movements were seen. SENSORY EXAMINATION: He did not respond even to deep painful stimuli. COORDINATION: Could not be tested. REFLEXES: 0 biceps, triceps, brachioradialis, knees and ankles. The plantar responses were mute bilaterally. STANCE: Could not be tested. GAIT: Could not be tested. ABNORMAL MOVEMENTS: None Impression/Recommendations Diagnostic Impression DIAGNOSTIC IMPRESSION: 1. Mr. Wade Covarrubias is a 60-year-old, gentleman, of unknown handedness, who was exposed to his son who had COVID-19 at home. He came into the [facility] emergency room on 11/29/2019 with a 3-day history of shortness of breath a mild cough and a feeling of being unwell. 2. He was found to be COVID-19 positive and his disease manifested with respiratory failure, sepsis, renal failure, and hepatic failure. He has been treated for all those problems and until a few days ago when his sedation would be decreased he would respond to uncomfortable stimuli. However in the last few days he has not responded at all to any external stimuli. 3. His sedation has been completely discontinued since approximately 1900 hrs. on 12/25/2019. The patient has been unresponsive in spite of that. At this point in time he is undergoing hemodialysis. He does not respond even to deep painful stimuli. He is still overbreathing the ventilator. His nurse has not seen any improvement in his medical or neurological condition. 4. On neurological examination, at this time, he does not respond to any external stimuli including deep pain. He does have minimal eye movements on oculocephalic maneuvers and in addition breathes at the rate higher than the ventilator setting. He does not demonstrate any signs of cerebral cortical function. 5. The EEG done on 12/26/2019 revealed a severe encephalopathy. 6. The patient's history, neurological examination and EEG are most consistent with a severe toxic metabolic encephalopathy related to hypoxia, hepatic dysfunction, renal dysfunction, and sepsis. 6. With regards to the patient being brain , he does not meet criteria for brain as he has brainstem function in the form of oculocephalic eye movements and respiratory drive. 7. With regards to how much cortical function the patient has, his clinical and EEG findings are consistent with severe bilateral cerebral dysfunction which are indicative of a poor prognosis. Unfortunately we cannot get an imaging study of his brain due to his COVID 19 status. Recommendations RECOMMENDATIONS: 1. Continue present management. 2. Keep off all mind altering drugs. 3. Continue treatment of other intercurrent medical problems. 4. Spoke to patient's niece and made her aware of the poor prognosis. 5. Will stop following. Please call if any ne neurologic concerns arise. Maxim Wilder M.D., M.S.P.H. Neurologist & Clinical Neurophysiologist Maxim Wilder MD December 27, 2019 13:37
--- NOTE | 2019-12-27 13:46 | Cardiac Electrophysiology PN ---
Assessment/Plan Assessment/Plan 1. Atrial fib with RVR 170 before intubation on 12/04/19. Troponin 0.77. No further atrial fib. In SR 2. Sinus Tachycardia due to COVID-19 pneumonia. On IV antibiotic per ID. Echo pending COVID. 3. Septic shock. On Levophed 2 Mcg, Midodrine 10 tid and iv Abx. 4. Respiratory failure, on the Vent by Dr. Cortes. 80% Fio2, PEEP 3 on heparin drip for possible PE 5. Acute renal failure. On HD per Dr. Sanchez via RFV [place] 6. Full code DW RN and Dr Cortes Subjective Subjective Intubated in ICU on 80% Fio2 and PEEP 3 on Levo 8 mcg, Fentanyl 150 and Versed 5 drip. Getting HD on heparin drip Objective Last 24 Hour Vital Signs Date Time Temp Pulse Resp B/P (MAP) Pulse Ox O2 Delivery O2 Flow Rate FiO2 12/27/19 13:00 123 27 103/60 (74) 98 12/27/19 12:30 124 29 102/53 (69) 98 12/27/19 12:00 Mechanical Ventilator 12/27/19 12:00 80 12/27/19 12:00 99.2 123 28 104/51 (68) 100 12/27/19 11:45 122 29 105/54 (71) 100 12/27/19 11:30 125 23 119/57 (77) 100 12/27/19 11:25 28 98/58 Mechanical Ventilator 15.0 80 12/27/19 11:00 122 28 103/52 (69) 100 12/27/19 10:30 123 28 80 12/27/19 10:30 124 29 99/52 (68) 99 12/27/19 10:01 99.8 12/27/19 10:00 123 27 94/53 (67) 99 12/27/19 09:30 123 30 110/57 (74) 100 12/27/19 09:00 123 29 114/61 (78) 100 12/27/19 08:30 124 30 105/56 (72) 100 12/27/19 08:00 126 12/27/19 08:00 80 12/27/19 08:00 29 122/75 Mechanical Ventilator 80 12/27/19 08:00 99.9 126 28 87/49 (62) 100 12/27/19 08:00 Mechanical Ventilator 12/27/19 07:56 88/50 12/27/19 07:30 125 26 89/53 (65) 100 12/27/19 07:00 124 28 95/53 (67) 100 12/27/19 07:00 124 27 80 12/27/19 06:30 125 22 103/56 (72) 100 12/27/19 06:00 124 27 101/57 (72) 100 12/27/19 05:30 124 24 103/59 (74) 100 12/27/19 05:00 124 24 103/59 (74) 100 12/27/19 04:30 121 26 97/59 (72) 100 12/27/19 04:00 80 12/27/19 04:00 125 18 96/56 (69) 100 12/27/19 04:00 125 12/27/19 04:00 Mechanical Ventilator 12/27/19 03:30 122 19 100/57 (71) 100 12/27/19 03:14 120 29 80 12/27/19 03:00 99.3 120 29 108/68 (81) 100 12/27/19 03:00 108/68 12/27/19 02:30 120 29 109/64 (79) 100 12/27/19 02:00 120 25 110/58 (75) 100 12/27/19 02:00 110/58 12/27/19 01:30 120 25 105/63 (77) 100 12/27/19 01:00 109/65 12/27/19 01:00 119 28 109/65 (80) 100 12/27/19 00:30 118 28 108/65 (79) 100 12/27/19 00:00 107/66 12/27/19 00:00 118 21 107/66 (80) 100 12/27/19 00:00 Mechanical Ventilator 12/26/19 23:30 118 30 103/65 (78) 100 12/26/19 23:10 119 30 80 12/26/19 23:00 108/65 12/26/19 23:00 121 28 107/56 (73) 99 12/26/19 22:30 119 30 121/65 (83) 100 12/26/19 22:00 121/61 12/26/19 22:00 117 37 120/61 (80) 100 12/26/19 21:30 117 38 110/58 (75) 99 12/26/19 21:00 26 102/58 Mechanical Ventilator 80 12/26/19 21:00 102/58 12/26/19 21:00 120 38 102/58 (73) 99 12/26/19 20:30 121 34 119/69 (86) 100 12/26/19 20:00 Mechanical Ventilator 12/26/19 20:00 24 94/51 Mechanical Ventilator 80 12/26/19 20:00 94/51 12/26/19 20:00 80 12/26/19 20:00 120 12/26/19 20:00 99.6 119 39 94/51 (65) 100 12/26/19 19:30 118 39 105/56 (72) 100 12/26/19 19:24 120 38 80 12/26/19 19:00 120 37 105/60 (75) 100 12/26/19 19:00 105/60 12/26/19 18:30 117 37 103/59 (74) 100 12/26/19 18:15 119 24 115/62 (79) 100 12/26/19 18:00 120 39 120/66 (84) 100 12/26/19 18:00 120/66 12/26/19 17:30 114 37 106/62 (77) 100 12/26/19 17:00 113 37 93/57 (69) 94 12/26/19 17:00 93/57 12/26/19 16:30 99.2 110 35 140/72 (94) 97 12/26/19 16:00 Mechanical Ventilator 12/26/19 16:00 123/59 12/26/19 16:00 112 12/26/19 16:00 80 12/26/19 16:00 116 31 123/59 (80) 100 12/26/19 15:30 115 38 126/64 (84) 99 12/26/19 15:00 109 29 113/58 (76) 100 12/26/19 15:00 116 38 80 12/26/19 15:00 113/58 12/26/19 14:45 110 26 116/64 (81) 100 12/26/19 14:30 121/60 12/26/19 14:30 109 26 121/60 (80) 100 12/26/19 14:30 109 26 121/60 (80) 100 12/26/19 14:15 105 23 119/65 (83) 100 12/26/19 14:00 118/66 12/26/19 14:00 106 21 118/66 (83) 100 12/26/19 13:45 114 36 138/71 (93) 99 Intake and Output 12/26/19 12/27/19 19:00 07:00 Intake Total 822.791 ml 1370.838 ml Output Total 1130 ml 10 ml Balance -307.209 ml 1360.838 ml Free Water 160 ml IV Total 402.791 ml 860.838 ml Tube Feeding 420 ml 350 ml Output Urine Total 30 ml 10 ml Stool Total 100 ml Hemodialysis UF 1000 ml # Bowel Movements 80 Laboratory Tests Test 12/26/19 20:30 12/27/19 03:53 12/27/19 04:00 12/27/19 11:00 Activated Partial Thromboplast Time 63 SEC (23-33) H 60 SEC (23-33) H 68 SEC (23-33) H Sodium Level 134 MMOL/L (136-145) L Potassium Level 4.0 MMOL/L (3.5-5.1) Chloride Level 95 MMOL/L (98-107) L Carbon Dioxide Level 31 MMOL/L (21-32) Anion Gap 8 mmol/L (5-15) Blood Urea Nitrogen 46 mg/dL (7-18) H Creatinine 3.5 MG/DL (0.55-1.30) H Estimat Glomerular Filtration Rate 18.1 mL/min (>60) Glucose Level 129 MG/DL (74-106) H Calcium Level 9.1 MG/DL (8.5-10.1) Total Bilirubin 0.7 MG/DL (0.2-1.0) Aspartate Amino Transf (AST/SGOT) 43 U/L (15-37) H Alanine Aminotransferase (ALT/SGPT) 41 U/L (12-78) Alkaline Phosphatase 230 U/L (46-116) H Total Protein 7.5 G/DL (6.4-8.2) Albumin 2.1 G/DL (3.4-5.0) L Globulin 5.4 g/dL Albumin/Globulin Ratio 0.4 (1.0-2.7) L Random Vancomycin Level 20.1 ug/mL White Blood Count 37.1 K/UL (4.8-10.8) *H Red Blood Count 2.83 M/UL (4.70-6.10) L Hemoglobin 8.4 G/DL (14.2-18.0) L Hematocrit 25.7 % (42.0-52.0) L Mean Corpuscular Volume 91 FL (80-99) Mean Corpuscular Hemoglobin 29.5 PG (27.0-31.0) Mean Corpuscular Hemoglobin Concent 32.5 G/DL (32.0-36.0) Red Cell Distribution Width 15.4 % (11.6-14.8) H Platelet Count 323 K/UL (150-450) Mean Platelet Volume 6.5 FL (6.5-10.1) Neutrophils (%) (Auto) % (45.0-75.0) Lymphocytes (%) (Auto) % (20.0-45.0) Monocytes (%) (Auto) % (1.0-10.0) Eosinophils (%) (Auto) % (0.0-3.0) Basophils (%) (Auto) % (0.0-2.0) Differential Total Cells Counted 100 Neutrophils % (Manual) 88 % (45-75) H Lymphocytes % (Manual) 2 % (20-45) L Monocytes % (Manual) 9 % (1-10) Eosinophils % (Manual) 0 % (0-3) Basophils % (Manual) 0 % (0-2) Band Neutrophils 1 % (0-8) Platelet Estimate Adequate Platelet Morphology Normal Hypochromasia 1+ Anisocytosis 1+ Objective HEAD AND NECK: Orally intubated No JVD LUNGS: Decreased breath sounds. Coarse rhonchi. CARDIOVASCULAR: Tachycardic S1 and S2 with no gallop. ABDOMEN: Soft. EXTREMITIES: 1 plus pitting edema. RFV [place] in place Raul Appiah MD December 27, 2019 13:46
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
--- NOTE | 2019-12-27 14:05 | NUR ---
NURSE NOTES: Spoke with Dr. Appiah @ bedside about pt's heart rate ST in the 120s and 130s. No new orders given.
[2019-12-27] MEDS ORDERED: Vancomycin 500mg/D5W 110ml IVPB ONE ×2 (15:00)
--- NOTE | 2019-12-27 15:30 | NUR ---
NURSE NOTES: HD done. 1 L taken out. Vitals stable on 16 mcg/min of levophed. No acute distress noted.
--- NOTE | 2019-12-27 15:46 | Hematology/Onc Progress Note ---
Assessment/Plan Assessment/Plan # Leukocytosis/elevated white blood cell count, unspecified likely related to underlying stress reaction and addition of infection, COVID19++++++ on vent, intubated --> have reviewed peripheral smear and bandemia/neutrophilia noted --> continue antibiotics if they have been started by ID team --> on broad spectrum abx cefepime/flag/vanc-->katie/vanc/difluc-->vanc/katie --> monitor for resolution --> smear is noted, with metamyelocytes --> wbc trend 18-->24-->32.9-->34k-->27->26-->32->31->30-->34.2 -->30-->37 --> ID is aware --> again ordered peripheral smear for path review-->reviewed and no blasts noted # Anemia of chronic disease due to underlying chronic medical issues, multifactorial v Gi bleed --> Anemia workup has been ordered, rule out gi bleed --> No evidence of hemolysis is noted, peripheral smear has been reviewed. --> Hgb goal >7. Transfuse prn. --> Epogen or iron at this time is not particularly indicated --> Medications have been reviewed --> low threshold for gi evaluation in case has occult + ==> hgb trend 11-->10.7-->10.4-->9.3-->9.1-->8-->8.2-->8.6-->8.4 # Thrombocytopenia also likely covid related --> supportive care --> plt 149-->164k-->154->195-->253 -->323 --> smear noted # Acute Hypoxic Respiratory Failure s/p intubation --> now on vent --> as per Dr. Cortes, weaning prn # COVID19 positive --> abx # Pneumomediastinum --> monitor for expansion --> on vent # Subcutaneous emphysema --> too high risk for bedside thoracostomy --> also possible pe--> hep gtt # ALBARO on ckd --> hd as needed --> per renal # femoral HD cath placed 12/04 --> hd prn # Dvt ppx scds --> heparin gtt DW Rn and appreciate consultation Subjective Allergies: Coded Allergies: No Known Allergies (Unverified , 11/29/19) Subjective 12/12 remains on vent, ogtube, barnes and rectal tube emptied, right fem jia line 12/14 icu, prone, levo gtt, multiple abx, labs reviewed 12/15 nonv, no bleeding, remains in vent, no bleeding, wbc high, on abx per id 12/16 nonv, on vent, ng, rectal tube, wbc still 34k 12/17 icu, levo gtt, on katie/vanc, tachy 12/18 in icu, on ng tube feeds, vent, no bleeding, jia in place 12/19 in the icu, no bleeding, ngt, with rectal tube, no bleeding ebc 28k 12/21 is with higer wbc, on katie/vanc/diflucan, id aware, on vent 12/22 hgb 7.8, remains on vent, abx as well, labs reviewed wbc 31k 12/23 wbc is 30, hgb 8, no bleeding or chills, on vent, felicity rn in am 12/24 icu, levo gtt, wbc 34, daily hd, stool ob pending 12/25 in icu, remains on heparin gtt, wbc 30k, no bleeding, cbc noted 12/26 obtunded, labs and meds reviewed, eeg for today Objective Objective Current Medications Medications (Trade) Dose Ordered Sig/Vicki Route PRN Reason Start Time Stop Time Status Last Admin Dose Admin Acetaminophen (Tylenol) 650 mg Q4H PRN NG Temp >100.5 12/06/19 14:15 01/05/20 14:14 12/27/19 09:31 Acetaminophen (Tylenol) 650 mg Q4H PRN RECTAL Mild Pain (Pain Scale 1-3) 12/04/19 11:45 01/03/20 11:44 12/06/19 19:17 Chlorhexidine Gluconate (Arely-Hex 2%) 1 applic DAILY@1999 TOPIC 12/05/19 20:00 03/04/20 19:59 12/26/19 20:54 Dextrose (Dextrose 50%) 25 ml Q30M PRN IV Hypoglycemia 11/29/19 14:15 02/27/20 14:14 Dextrose (Dextrose 50%) 50 ml Q30M PRN IV Hypoglycemia 11/29/19 14:15 02/27/20 14:14 Fentanyl Citrate 250 ml @ 0 mls/hr Q24H IV 12/27/19 11:00 03/26/20 10:59 12/27/19 11:25 Folic Acid (Folate) 1 mg DAILY NG 12/18/19 09:00 01/17/20 08:59 12/27/19 07:54 Heparin Sodium/ Dextrose 500 ml @ 40.38 mls/ hr ADJUST PER PROTOCOL IV 12/27/19 05:00 01/25/20 21:14 12/27/19 11:29 Hydralazine HCl (Apresoline) 10 mg Q4H PRN IV For High Blood Pressure 11/29/19 15:15 02/27/20 15:14 Loperamide HCl (Imodium) 2 mg Q6H PRN NG Diarrhea 12/12/19 12:45 01/11/20 12:44 Meropenem 500 mg/ Sodium Chloride 50 ml @ 100 mls/hr Q24H IVPB 12/24/19 21:30 12/29/19 21:29 12/26/19 21:19 Micafungin Sodium 100 mg/Sodium Chloride 100 ml @ 100 mls/hr Q24H IVPB 12/24/19 22:00 12/31/19 21:59 12/26/19 22:03 Midazolam HCl 100 ml @ 0 mls/hr Q24H PRN IV Restlessness 12/24/19 16:30 12/31/19 16:29 12/25/19 16:31 Midodrine (Pro-Amatine) 10 mg THREE TIMES A DAY NG 12/27/19 13:00 03/11/20 12:59 12/27/19 12:49 Norepinephrine Bitartrate 8 mg/ Dextrose 250 ml @ 0 mls/hr Q24H IV 12/18/19 09:00 01/17/20 08:59 12/27/19 07:56 Ondansetron HCl (Zofran) 4 mg Q6H PRN IVP Nausea & Vomiting 11/29/19 14:15 12/29/19 14:14 Pantoprazole (Protonix) 40 mg DAILY IVP 11/30/19 12:15 12/30/19 12:14 12/27/19 07:53 Sevelamer Carbonate (Renvela) 800 mg THREE TIMES A DAY NG 12/22/19 13:00 03/21/20 12:59 12/27/19 12:49 Vancomycin HCl (Vanco rx to dose) 1 ea DAILY PRN MISC Per rx protocol 12/08/19 19:30 01/07/20 19:29 Vancomycin HCl 500 mg/Dextrose 110 ml @ 110 mls/hr ONCE ONCE IVPB 12/27/19 15:00 12/27/19 15:59 12/27/19 15:13 Vitamin B Complex/ Vit C/Folic Acid (Nephrovite) 1 tab DAILY NG 12/16/19 09:00 01/15/20 08:59 12/27/19 07:54 Last 24 Hour Vital Signs Date Time Temp Pulse Resp B/P (MAP) Pulse Ox O2 Delivery O2 Flow Rate FiO2 12/27/19 15:00 125 28 80 12/27/19 15:00 123 28 97/52 (67) 98 12/27/19 14:30 123 28 88/50 (63) 99 12/27/19 14:00 124 26 100/53 (69) 100 12/27/19 13:30 123 26 103/58 (73) 100 12/27/19 13:00 123 27 103/60 (74) 98 12/27/19 12:30 124 29 102/53 (69) 98 12/27/19 12:00 Mechanical Ventilator 12/27/19 12:00 80 12/27/19 12:00 99.2 123 28 104/51 (68) 100 12/27/19 11:45 122 29 105/54 (71) 100 12/27/19 11:30 125 23 119/57 (77) 100 12/27/19 11:25 28 98/58 Mechanical Ventilator 15.0 80 12/27/19 11:00 122 28 103/52 (69) 100 12/27/19 11:00 28 95/51 Mechanical Ventilator 80 12/27/19 11:00 95/51 12/27/19 10:30 123 28 80 12/27/19 10:30 124 29 99/52 (68) 99 12/27/19 10:01 99.8 12/27/19 10:00 123 27 94/53 (67) 99 12/27/19 10:00 30 94/53 Mechanical Ventilator 80 12/27/19 10:00 94/53 12/27/19 09:30 123 30 110/57 (74) 100 12/27/19 09:00 29 105/61 Mechanical Ventilator 80 12/27/19 09:00 105/61 12/27/19 09:00 123 29 114/61 (78) 100 12/27/19 08:30 124 30 105/56 (72) 100 12/27/19 08:00 126 12/27/19 08:00 80 12/27/19 08:00 29 122/75 Mechanical Ventilator 80 12/27/19 08:00 99.9 126 28 87/49 (62) 100 12/27/19 08:00 Mechanical Ventilator 12/27/19 07:56 88/50 12/27/19 07:30 125 26 89/53 (65) 100 12/27/19 07:00 124 28 95/53 (67) 100 12/27/19 07:00 124 27 80 12/27/19 06:30 125 22 103/56 (72) 100 12/27/19 06:00 124 27 101/57 (72) 100 12/27/19 05:30 124 24 103/59 (74) 100 12/27/19 05:00 124 24 103/59 (74) 100 12/27/19 04:30 121 26 97/59 (72) 100 12/27/19 04:00 80 12/27/19 04:00 125 18 96/56 (69) 100 12/27/19 04:00 125 12/27/19 04:00 Mechanical Ventilator 12/27/19 03:30 122 19 100/57 (71) 100 12/27/19 03:14 120 29 80 12/27/19 03:00 99.3 120 29 108/68 (81) 100 12/27/19 03:00 108/68 12/27/19 02:30 120 29 109/64 (79) 100 12/27/19 02:00 120 25 110/58 (75) 100 12/27/19 02:00 110/58 12/27/19 01:30 120 25 105/63 (77) 100 12/27/19 01:00 109/65 12/27/19 01:00 119 28 109/65 (80) 100 12/27/19 00:30 118 28 108/65 (79) 100 12/27/19 00:00 107/66 12/27/19 00:00 118 21 107/66 (80) 100 12/27/19 00:00 Mechanical Ventilator 12/26/19 23:30 118 30 103/65 (78) 100 12/26/19 23:10 119 30 80 12/26/19 23:00 108/65 12/26/19 23:00 121 28 107/56 (73) 99 12/26/19 22:30 119 30 121/65 (83) 100 12/26/19 22:00 121/61 12/26/19 22:00 117 37 120/61 (80) 100 12/26/19 21:30 117 38 110/58 (75) 99 12/26/19 21:00 26 102/58 Mechanical Ventilator 80 12/26/19 21:00 102/58 12/26/19 21:00 120 38 102/58 (73) 99 12/26/19 20:30 121 34 119/69 (86) 100 12/26/19 20:00 Mechanical Ventilator 12/26/19 20:00 24 94/51 Mechanical Ventilator 80 12/26/19 20:00 94/51 12/26/19 20:00 80 12/26/19 20:00 120 12/26/19 20:00 99.6 119 39 94/51 (65) 100 12/26/19 19:30 118 39 105/56 (72) 100 12/26/19 19:24 120 38 80 12/26/19 19:00 120 37 105/60 (75) 100 12/26/19 19:00 105/60 12/26/19 18:30 117 37 103/59 (74) 100 12/26/19 18:15 119 24 115/62 (79) 100 12/26/19 18:00 120 39 120/66 (84) 100 12/26/19 18:00 120/66 12/26/19 17:30 114 37 106/62 (77) 100 12/26/19 17:00 113 37 93/57 (69) 94 12/26/19 17:00 93/57 12/26/19 16:30 99.2 110 35 140/72 (94) 97 12/26/19 16:00 Mechanical Ventilator 12/26/19 16:00 123/59 5/14/20 16:00 112 12/26/19 16:00 80 12/26/19 16:00 116 31 123/59 (80) 100 12/26/19 15:30 115 38 126/64 (84) 99 12/26/19 15:00 109 29 113/58 (76) 100 12/26/19 15:00 116 38 80 12/26/19 15:00 113/58 12/26/19 14:45 110 26 116/64 (81) 100 12/26/19 14:30 121/60 12/26/19 14:30 109 26 121/60 (80) 100 12/26/19 14:30 109 26 121/60 (80) 100 12/26/19 14:15 105 23 119/65 (83) 100 12/26/19 14:00 118/66 12/26/19 14:00 106 21 118/66 (83) 100 12/26/19 13:45 114 36 138/71 (93) 99 12/26/19 13:30 98.8 115 36 117/60 (79) 100 12/26/19 13:00 107 29 102/57 (72) 100 12/26/19 13:00 102/57 12/26/19 12:30 106 27 110/58 (75) 100 12/26/19 12:00 105 27 107/63 (78) 100 12/26/19 12:00 107 12/26/19 12:00 107/63 12/26/19 12:00 Mechanical Ventilator 12/26/19 12:00 80 12/26/19 11:30 106 27 107/63 (78) 100 12/26/19 11:00 124/64 12/26/19 11:00 107 27 124/64 (84) 100 12/26/19 11:00 117 38 80 12/26/19 10:30 116 36 118/58 (78) 100 12/26/19 10:00 116 36 120/62 (81) 100 12/26/19 10:00 132/64 12/26/19 09:30 118 37 124/57 (79) 100 12/26/19 09:00 99/51 12/26/19 09:00 113 29 99/51 (67) 100 12/26/19 08:30 99.9 112 28 85/53 (64) 100 12/26/19 08:00 111 25 102/53 (69) 100 12/26/19 08:00 80 12/26/19 08:00 102/53 12/26/19 08:00 Mechanical Ventilator 12/26/19 07:41 112 12/26/19 07:30 112 28 93/55 (68) 100 12/26/19 07:00 112 31 80 12/26/19 07:00 97/57 12/26/19 07:00 110 19 107/56 (73) 100 12/26/19 06:45 110 28 104/56 (72) 100 12/26/19 06:30 110 25 97/57 (70) 100 12/26/19 06:15 111 27 93/54 (67) 100 12/26/19 06:00 82/54 12/26/19 06:00 112 26 82/54 (63) 100 12/26/19 05:30 116 24 88/52 (64) 100 12/26/19 05:22 120 22 92/47 (62) 100 12/26/19 05:18 123 24 85/51 (62) 100 12/26/19 05:00 124 38 99/53 (68) 98 12/26/19 05:00 99/53 12/26/19 04:30 121 39 114/48 (70) 97 12/26/19 04:00 114/52 12/26/19 04:00 98.8 120 38 114/57 (76) 97 12/26/19 04:00 120 12/26/19 04:00 Mechanical Ventilator 12/26/19 04:00 80 12/26/19 03:32 109 30 80 12/26/19 03:30 115 39 110/60 (77) 98 12/26/19 03:12 111/67 12/26/19 03:00 111/67 12/26/19 03:00 103 38 111/67 (82) 99 12/26/19 02:30 110 24 107/61 (76) 100 12/26/19 02:00 109 22 115/60 (78) 100 12/26/19 02:00 115/60 12/26/19 01:45 115 24 114/62 (79) 100 12/26/19 01:36 120 28 91/52 (65) 97 12/26/19 01:30 120 32 77/55 (62) 97 12/26/19 01:00 125/62 12/26/19 01:00 119 36 125/62 (83) 99 12/26/19 00:30 112 14 108/61 (77) 100 12/26/19 00:00 80 12/26/19 00:00 103/57 12/26/19 00:00 Mechanical Ventilator 12/26/19 00:00 112 12/26/19 00:00 98.4 112 17 103/57 (72) 100 12/25/19 23:30 113 16 104/52 (69) 100 12/25/19 23:03 113 30 80 12/25/19 23:00 99/62 12/25/19 23:00 114 18 99/62 (74) 100 12/25/19 22:30 118 29 94/52 (66) 97 12/25/19 22:00 116 29 104/60 (75) 97 12/25/19 22:00 104/60 12/25/19 21:30 116 23 107/57 (74) 97 12/25/19 21:00 110 22 92/50 (64) 100 12/25/19 21:00 92/50 12/25/19 20:30 115 32 100/56 (71) 95 12/25/19 20:00 Mechanical Ventilator 12/25/19 20:00 97.8 109 18 100/55 (70) 94 12/25/19 20:00 100/55 12/25/19 20:00 80 12/25/19 19:39 109 12/25/19 19:30 109 30 114/61 (78) 100 12/25/19 19:15 108 35 106/61 (76) 100 12/25/19 19:02 110 36 80 12/25/19 19:00 108 34 111/56 (74) 100 12/25/19 19:00 31 106/61 Mechanical Ventilator 80 12/25/19 19:00 31 106/61 Mechanical Ventilator 80 12/25/19 19:00 106/61 12/25/19 18:45 102 24 97/55 (69) 100 12/25/19 18:30 107 32 99/61 (74) 100 12/25/19 18:15 113 31 102/54 (70) 100 12/25/19 18:00 116 28 98/55 (69) 100 12/25/19 18:00 28 102/54 Mechanical Ventilator 80 12/25/19 18:00 28 102/54 Mechanical Ventilator 80 12/25/19 18:00 102/54 12/25/19 17:45 112 21 92/61 (71) 100 12/25/19 17:30 113 22 103/59 (74) 100 12/25/19 17:15 118 35 111/61 (78) 99 12/25/19 17:00 119 36 92/53 (66) 98 12/25/19 17:00 35 92/53 Mechanical Ventilator 80 12/25/19 17:00 34 92/53 Mechanical Ventilator 80 12/25/19 17:00 92/53 12/25/19 16:45 119 36 97/51 (66) 96 12/25/19 16:31 35 95/51 Mechanical Ventilator 80 12/25/19 16:30 35 97/51 Mechanical Ventilator 80 12/25/19 16:30 95/51 12/25/19 16:30 118 34 92/56 (68) 96 12/25/19 16:15 120 32 95/51 (66) 96 12/25/19 16:00 112 12/25/19 16:00 Mechanical Ventilator 12/25/19 16:00 34 123/55 Mechanical Ventilator 80 12/25/19 16:00 34 95/51 Mechanical Ventilator 80 12/25/19 16:00 123/55 12/25/19 16:00 98.9 118 34 93/56 (68) 97 12/25/19 16:00 80 12/25/19 15:45 114 32 123/55 (77) 95 Intake and Output 12/26/19 12/27/19 19:00 07:00 Intake Total 822.791 ml 1370.838 ml Output Total 1130 ml 10 ml Balance -307.209 ml 1360.838 ml Free Water 160 ml IV Total 402.791 ml 860.838 ml Tube Feeding 420 ml 350 ml Output Urine Total 30 ml 10 ml Stool Total 100 ml Hemodialysis UF 1000 ml # Bowel Movements 80 Labs Test 12/24/19 22:50 12/25/19 04:10 12/25/19 11:25 12/25/19 21:40 Random Vancomycin Level 16.6 ug/mL White Blood Count 34.2 K/UL (4.8-10.8) Red Blood Count 2.71 M/UL (4.70-6.10) Hemoglobin 8.2 G/DL (14.2-18.0) Hematocrit 25.2 % (42.0-52.0) Mean Corpuscular Volume 93 FL (80-99) Mean Corpuscular Hemoglobin 30.1 PG (27.0-31.0) Mean Corpuscular Hemoglobin Concent 32.4 G/DL (32.0-36.0) Red Cell Distribution Width 15.6 % (11.6-14.8) Platelet Count 253 K/UL (150-450) Mean Platelet Volume 7.0 FL (6.5-10.1) Neutrophils (%) (Auto) % (45.0-75.0) Lymphocytes (%) (Auto) % (20.0-45.0) Monocytes (%) (Auto) % (1.0-10.0) Eosinophils (%) (Auto) % (0.0-3.0) Basophils (%) (Auto) % (0.0-2.0) Differential Total Cells Counted 100 Neutrophils % (Manual) 88 % (45-75) Lymphocytes % (Manual) 6 % (20-45) Monocytes % (Manual) 6 % (1-10) Eosinophils % (Manual) 0 % (0-3) Basophils % (Manual) 0 % (0-2) Band Neutrophils 0 % (0-8) Platelet Estimate Adequate Platelet Morphology Normal Hypochromasia 2+ Anisocytosis 1+ Spherocytes 1+ Sodium Level 137 MMOL/L (136-145) Potassium Level 3.7 MMOL/L (3.5-5.1) Chloride Level 95 MMOL/L (98-107) Carbon Dioxide Level 35 MMOL/L (21-32) Anion Gap 7 mmol/L (5-15) Blood Urea Nitrogen 32 mg/dL (7-18) Creatinine 2.8 MG/DL (0.55-1.30) Estimat Glomerular Filtration Rate 23.4 mL/min (>60) Glucose Level 102 MG/DL (74-106) Calcium Level 8.3 MG/DL (8.5-10.1) Total Bilirubin 0.5 MG/DL (0.2-1.0) Aspartate Amino Transf (AST/SGOT) 53 U/L (15-37) Alanine Aminotransferase (ALT/SGPT) 43 U/L (12-78) Alkaline Phosphatase 233 U/L (46-116) Total Protein 7.4 G/DL (6.4-8.2) Albumin 2.2 G/DL (3.4-5.0) Globulin 5.2 g/dL Albumin/Globulin Ratio 0.4 (1.0-2.7) Activated Partial Thromboplast Time 28 SEC (23-33) 35 SEC (23-33) Test 12/26/19 04:48 12/26/19 12:25 12/26/19 20:30 12/27/19 03:53 White Blood Count 29.6 K/UL (4.8-10.8) Red Blood Count 2.78 M/UL (4.70-6.10) Hemoglobin 8.6 G/DL (14.2-18.0) Hematocrit 25.5 % (42.0-52.0) Mean Corpuscular Volume 92 FL (80-99) Mean Corpuscular Hemoglobin 30.8 PG (27.0-31.0) Mean Corpuscular Hemoglobin Concent 33.6 G/DL (32.0-36.0) Red Cell Distribution Width 15.7 % (11.6-14.8) Platelet Count 326 K/UL (150-450) Mean Platelet Volume 6.6 FL (6.5-10.1) Neutrophils (%) (Auto) % (45.0-75.0) Lymphocytes (%) (Auto) % (20.0-45.0) Monocytes (%) (Auto) % (1.0-10.0) Eosinophils (%) (Auto) % (0.0-3.0) Basophils (%) (Auto) % (0.0-2.0) Differential Total Cells Counted 100 Neutrophils % (Manual) 94 % (45-75) Lymphocytes % (Manual) 2 % (20-45) Monocytes % (Manual) 4 % (1-10) Eosinophils % (Manual) 0 % (0-3) Basophils % (Manual) 0 % (0-2) Band Neutrophils 0 % (0-8) Platelet Estimate Adequate Platelet Morphology Normal Hypochromasia 3+ Anisocytosis 1+ Activated Partial Thromboplast Time 57 SEC (23-33) 61 SEC (23-33) 63 SEC (23-33) 60 SEC (23-33) Sodium Level 135 MMOL/L (136-145) 134 MMOL/L (136-145) Potassium Level 3.6 MMOL/L (3.5-5.1) 4.0 MMOL/L (3.5-5.1) Chloride Level 96 MMOL/L (98-107) 95 MMOL/L (98-107) Carbon Dioxide Level 30 MMOL/L (21-32) 31 MMOL/L (21-32) Anion Gap 9 mmol/L (5-15) 8 mmol/L (5-15) Blood Urea Nitrogen 36 mg/dL (7-18) 46 mg/dL (7-18) Creatinine 3.1 MG/DL (0.55-1.30) 3.5 MG/DL (0.55-1.30) Estimat Glomerular Filtration Rate 20.8 mL/min (>60) 18.1 mL/min (>60) Glucose Level 146 MG/DL (74-106) 129 MG/DL (74-106) Calcium Level 8.6 MG/DL (8.5-10.1) 9.1 MG/DL (8.5-10.1) Total Bilirubin 0.6 MG/DL (0.2-1.0) 0.7 MG/DL (0.2-1.0) Aspartate Amino Transf (AST/SGOT) 55 U/L (15-37) 43 U/L (15-37) Alanine Aminotransferase (ALT/SGPT) 47 U/L (12-78) 41 U/L (12-78) Alkaline Phosphatase 236 U/L (46-116) 230 U/L (46-116) Total Protein 7.5 G/DL (6.4-8.2) 7.5 G/DL (6.4-8.2) Albumin 2.3 G/DL (3.4-5.0) 2.1 G/DL (3.4-5.0) Globulin 5.2 g/dL 5.4 g/dL Albumin/Globulin Ratio 0.4 (1.0-2.7) 0.4 (1.0-2.7) Random Vancomycin Level 17.6 ug/mL 20.1 ug/mL Test 12/27/19 04:00 12/27/19 11:00 White Blood Count 37.1 K/UL (4.8-10.8) Red Blood Count 2.83 M/UL (4.70-6.10) Hemoglobin 8.4 G/DL (14.2-18.0) Hematocrit 25.7 % (42.0-52.0) Mean Corpuscular Volume 91 FL (80-99) Mean Corpuscular Hemoglobin 29.5 PG (27.0-31.0) Mean Corpuscular Hemoglobin Concent 32.5 G/DL (32.0-36.0) Red Cell Distribution Width 15.4 % (11.6-14.8) Platelet Count 323 K/UL (150-450) Mean Platelet Volume 6.5 FL (6.5-10.1) Neutrophils (%) (Auto) % (45.0-75.0) Lymphocytes (%) (Auto) % (20.0-45.0) Monocytes (%) (Auto) % (1.0-10.0) Eosinophils (%) (Auto) % (0.0-3.0) Basophils (%) (Auto) % (0.0-2.0) Differential Total Cells Counted 100 Neutrophils % (Manual) 88 % (45-75) Lymphocytes % (Manual) 2 % (20-45) Monocytes % (Manual) 9 % (1-10) Eosinophils % (Manual) 0 % (0-3) Basophils % (Manual) 0 % (0-2) Band Neutrophils 1 % (0-8) Platelet Estimate Adequate Platelet Morphology Normal Hypochromasia 1+ Anisocytosis 1+ Activated Partial Thromboplast Time 68 SEC (23-33) Height (Feet): 5 Height (Inches): 6.00 Weight (Pounds): 150 Objective General: prone position on vent Heent: nc, at+ ng Respiratory: normal breath sounds, no retraction, vent++ Cardiovascular: no edema, tachycardia Gastrointestinal: normal inspection Neurologic unresponsive on vent Psychiatrc: unable to access Ext: with hd fem jia in place : + barnes and rectal tube Mj Zhu MD December 27, 2019 15:46
--- NOTE | 2019-12-27 16:30 | Diagnostic Imaging Report ---
Procedure: XRAY Chest 1v Reason for study: Reason For Exam: INFECT Comparison films: 12/21/2019. FINDINGS: Endotracheal tube and NG tube remain in place. Diffuse hazy alveolar and interstitial infiltrates stable. No new consolidation. Cardiac and mediastinal silhouette are within normal limits. CP angles are sharp. The bony thorax appear unremarkable. IMPRESSION: NO SIGNIFICANT CHANGE COMPARED TO PREVIOUS EXAM.
--- NOTE | 2019-12-27 17:57 | NUR ---
NURSE NOTES: Pt repositioned and oral care done. Linen changed and pt cleaned. Pt in stable condition with no signs of distress. Vitals stable as documented.
--- NOTE | 2019-12-27 18:26 | NUR ---
NURSE NOTES: irrigated barnes catheter in case of blood or clots. None noted. Barnes is patent.
--- NOTE | 2019-12-27 19:13 | NUR ---
HAND-OFF: Report given to DARYA Camarena. Pt in stable condition; plan of care endorsed.
--- NOTE | 2019-12-27 19:40 | NUR ---
Nurse Note: Report received from DARYA Lemus for continuity of care. N: Pt obtunded, does not react to deep pain. Pt has LT FA IV infusing Heparin drip at 30U/kg/hr. Pt has RT femoral [place] cath with pigtail infusing Levo at 16mcg/min. Pt received HD 12/26, 1 L out. C: ST at rest; HR 126. R: Pt orally intubated. ETT 8, 24cm at lip, AC 20, TV 500, FiO2 30%, Peep 3. GI: LT NGT intact; infusing Nepro at 35cc; no residual. : Joe cath intact and rectal tube is intact. S: Facial DTI. Rash scattered throughout body. Axillary temp 102.5F; will take actions for cooling measures. All safety measures met; will continue to monitor.
[2019-12-27] MEDS: Dyna-Hex 2% Top Sol 2oz TOPIC SCH (19:48)
--- NOTE | 2019-12-27 20:50 | NUR ---
Nurse Note: Axillary temp 100.2F. Tylenol via NGT administered, Ice applied, cooling air applied on pt. Informed RT about ETT anchor fast sliding off face; RT changed anchor fast, intact. Pt suctioned, no gag reflex noted. Levo at 16 mcg/min; MAP >65. All safety measures met; will continue to monitor.
--- NOTE | 2019-12-27 21:00 | Electroencephalogram ---
REQUESTING PHYSICIAN: Beatrice Morgan MD. READING PHYSICIAN: Maxim Wilder MD. PROCEDURE PERFORMED: Electroencephalogram. DATE OF TRACIN12/26/2019 HISTORY: This EEG was performed on a 59-year-old gentleman with a history of multiple medical problems including being COVID-19 positive with respiratory failure, renal failure, hepatic failure, and significant hypoxia, who has been unresponsive for a prolonged period of time. The purpose of this EEG was to evaluate the patient for the degree and type of cerebral dysfunction. TECHNICAL NOTE: This EEG was performed on a [employer] with electrodes placed on the scalp according to the international 10-20 system. [id number] and [id number] montages were used. The EEG was technically satisfactory and was performed while the patient was in an unresponsive state. OBSERVATIONS: In the reportedly unresponsive state, the background activity consisted of very low amplitude slow activity in the 1.5-2 Hz delta and 4-5 Hz theta range. A large amount of electrode and sweat artifact was seen throughout the tracing. When the patient was stimulated, no reactivity was seen on the EEG. No focal abnormalities or epileptiform discharges were noted. IMPRESSION: This is a severely abnormal EEG characterized by a very low amplitude slow background in the 1.5-2 Hz delta and 4-5 Hz theta range with no reactivity to external stimulation. COMMENT: This study is consistent with a severe encephalopathy and carries a poor prognosis for recovery of cerebral function. Maxim Wilder M.D., M.S.P.H. Clinical Neurophysiologist DR: Dawn JOB#: [id number] MTDD
--- NOTE | 2019-12-27 23:10 | NUR ---
Nurse Note: Pt turned, suctioned as needed. Pt tolerating well current vent settings and infusion rate on Levophed and Fentanyl. Joe cath patent; no BM noted. Continue to place ice on pt with cool air. All safety measures met; will continue to monitor.
[2019-12-28] VITALS (62 sets, daily range): BP systolic 79–137; BP diastolic 31–61
[2019-12-28] MEDS: Acetaminophen 650mg/20.3ml NG PRN (01:40)
--- NOTE | 2019-12-28 02:08 | NUR ---
Nurse Note: Cooling blanket applied; ice applied; Tylenol administered, rectal temp 100.5F. Pt suctioned, no signs of acute distress. Pt tolerating interventions. Pt turned and suctioned as needed. All safety measures met; will continue to monitor.
--- NOTE | 2019-12-28 04:10 | NUR ---
Nurse Note: Pt suctioned, oral care completed, turned as needed. Pt cleaned, linens changed. New IV established LT AC 20 gauge; clean and intact. LT AC infusing fentanyl, LT FA infusing heparin, and RT femoral Bismark cath with pigtail infusing levo. Joe cath and rectal tube intact. afebrile. PTT drawn and sent to lab; awaiting results. All safety measures met; will continue to monitor.
[2019-12-28 06:04] LABS: HEMATOCRIT 23.8 % (42.0-52.0); HEMOGLOBIN 7.5 G/DL (14.2-18.0); MEAN CORPUSCULAR VOLUME 96 FL (80-99); PLATELET COUNT 270 K/UL (150-450); RED BLOOD COUNT 2.49 M/UL (4.70-6.10); RED CELL DISTRIBUTION WIDTH 16.6 % (11.6-14.8)
[2019-12-28] MEDS: fentaNYL 2500mcg/NS 250ml IV SCH (06:17)
[2019-12-28 06:19] LABS: WHITE BLOOD COUNT 37.5 K/UL (4.8-10.8)
--- NOTE | 2019-12-28 06:30 | NUR ---
Nurse Note: Report received from DARYA Lemus for continuity of care. N: Pt obtunded, does not react to deep pain. Pt has LT FA IV infusing Heparin drip at 30U/kg/hr. LT AC infusing Fentanyl at 130mcg/hr. Pt has RT femoral Bismark cath with pigtail infusing Levo at 16mcg/min. Pt scheduled HD 12/27. C: ST at rest; average HR 120. R: Pt orally intubated. ETT 8, 24cm at lip, AC 20, TV 500, FiO2 30%, Peep 3. GI: LT NGT intact; infusing Nepro at 35cc; no residual. : Joe cath intact and rectal tube is intact. No urine output. S: Facial DTI. Rash scattered throughout body. Pt on cooling blanket, temperature being regulated. Pt suctioned, turned, oral care as needed. All safety measures met; will continue to monitor.
[2019-12-28 06:36] LABS: ALANINE AMINOTRANSFERASE 35 U/L (12-78); ALBUMIN 1.8 G/DL (3.4-5.0); ALBUMIN/GLOBULIN RATIO 0.4 (1.0-2.7); ALKALINE PHOSPHATASE 217 U/L (46-116); ANION GAP 14 mmol/L (5-15); ASPARTATE AMINO TRANSFERASE 29 U/L (15-37); BILIRUBIN,TOTAL 0.6 MG/DL (0.2-1.0); BLOOD UREA NITROGEN 33 mg/dL (7-18); CALCIUM 7.9 MG/DL (8.5-10.1); CARBON DIOXIDE 30 MMOL/L (21-32); CHLORIDE 86 MMOL/L (98-107); POTASSIUM 3.2 MMOL/L (3.5-5.1); SODIUM 129 MMOL/L (136-145)
--- NOTE | 2019-12-28 07:00 | NUR ---
NURSE NOTES: Report received from Nicol Esparza RN. Observed pt in bed, non-verbal and sedated, with eyes closed. Pt only reacting to deep painful stimuli. ETT 8, 24 cm @ the lip line. Patient's O2 saturation of 88% with vent settings of AC 20, VT 500, FiO2 80% and peep of 3. RT at bedside for suctioning. Pt ST on the monitor with HR of 132bpm. Right femoral Bismark cath noted, intact, infusing fentanyl drip @ 130 mcg, to keep RASS at -2; Levophed infusing at 16mcg/min. Left FA 20g IV patent and asymptomatic with heparin drip inffusing at 30 unit/kg. Awaiting for STAT PTT results. Head of bed elevated at 30 degrees to prevent aspiration. NGT noted and patent, running feeding Nepro at 35ml/hr. Joe in place and patent, draining scant amount of dark marge urine output. Bed at lowest position, locked, side rails are up x3, bed alarm on, and call light within reach. Will continue plan of care and will continue to monitor.
--- NOTE | 2019-12-28 07:00 | NUR ---
Nurse Note: Spoke with phramcy about elevated PTT. Stat redraw of PTT ordered d/t level may be a false high. PTT drawn, sent to lab. Will endorse to AM shift for follow up.
--- NOTE | 2019-12-28 07:10 | General Progress Note ---
Assessment/Plan Problem List: (1) Elevated LFTs ICD Codes: R79.89 - Other specified abnormal findings of blood chemistry SNOMED: 042114311, 519016705 (2) HTN (hypertension) ICD Codes: I10 - Essential (primary) hypertension SNOMED: 51200411 (3) Suspected COVID-19 virus infection ICD Codes: R68.89 - Other general symptoms and signs SNOMED: 650208187 (4) Pneumonia ICD Codes: J18.9 - Pneumonia, unspecified organism SNOMED: 232335070 (5) Respiratory distress ICD Codes: R06.03 - Acute respiratory distress SNOMED: 449067758 (6) Pneumomediastinum ICD Codes: J98.2 - Interstitial emphysema SNOMED: 54832148 (7) COVID-19 ICD Codes: U07.1 - COVID-19 SNOMED: 008112452 (8) Hypotension ICD Codes: I95.9 - Hypotension, unspecified SNOMED: 01242500 Assessment/Plan: NGTF rectal tube in place elevated LFTS most likely due to shock liver>>> improving repeat labs in am hepatitis panel>>>Neg fu nephrology recent labs and notes reviewed D/W the nurse Subjective ROS Limited/Unobtainable: No Allergies: Coded Allergies: No Known Allergies (Unverified , 11/29/19) Objective Last 24 Hour Vital Signs Date Time Temp Pulse Resp B/P (MAP) Pulse Ox O2 Delivery O2 Flow Rate FiO2 12/28/19 06:17 39 112/49 Mechanical Ventilator 80 12/28/19 06:00 125 24 112/49 (70) 95 12/28/19 05:30 120 31 111/47 (68) 94 12/28/19 05:00 116 32 118/53 (74) 95 12/28/19 05:00 32 118/53 Mechanical Ventilator 80 12/28/19 05:00 118/53 12/28/19 04:31 94/43 12/28/19 04:30 115 31 92/42 (59) 92 12/28/19 04:00 80 12/28/19 04:00 110 12/28/19 04:00 Mechanical Ventilator 12/28/19 04:00 30 128/59 Mechanical Ventilator 80 12/28/19 04:00 128/59 12/28/19 04:00 98.2 110 30 128/59 (82) 98 12/28/19 03:30 108 28 80 12/28/19 03:30 110 23 137/61 (86) 99 12/28/19 03:00 21 115/52 Mechanical Ventilator 80 12/28/19 03:00 115/52 12/28/19 03:00 116 21 115/52 (73) 87 12/28/19 02:30 110 29 124/56 (78) 100 12/28/19 02:25 100.5 12/28/19 02:00 117 30 128/60 (82) 99 12/28/19 02:00 29 128/60 Mechanical Ventilator 80 12/28/19 02:00 128/60 12/28/19 01:30 116 30 116/57 (76) 99 12/28/19 01:00 115 29 122/58 (79) 99 12/28/19 01:00 22 122/58 Mechanical Ventilator 80 12/28/19 01:00 122/58 12/28/19 00:30 118 30 110/61 (77) 99 12/28/19 00:00 100.3 119 23 103/49 (67) 100 12/28/19 00:00 80 12/28/19 00:00 Mechanical Ventilator 12/28/19 00:00 23 103/49 Mechanical Ventilator 80 12/28/19 00:00 103/49 12/27/19 23:30 120 28 110/50 (70) 100 12/27/19 23:10 121 30 80 12/27/19 23:00 28 108/50 Mechanical Ventilator 80 12/27/19 23:00 108/50 12/27/19 23:00 122 29 108/50 (69) 100 12/27/19 22:30 122 29 108/53 (71) 100 12/27/19 22:00 23 109/46 Mechanical Ventilator 80 12/27/19 22:00 109/46 12/27/19 22:00 125 27 109/46 (67) 100 12/27/19 21:30 100.2 127 29 108/54 (72) 99 12/27/19 21:00 128 29 112/49 (70) 99 12/27/19 21:00 23 112/53 Mechanical Ventilator 80 12/27/19 21:00 112/53 12/27/19 20:30 130 30 108/51 (70) 99 12/27/19 20:00 131 12/27/19 20:00 Mechanical Ventilator 12/27/19 20:00 20 97/48 Mechanical Ventilator 80 12/27/19 20:00 97/48 12/27/19 20:00 80 12/27/19 20:00 102.5 131 30 97/48 (64) 97 12/27/19 19:47 75/56 12/27/19 19:30 135 28 75/41 (52) 98 12/27/19 19:20 129 26 80 12/27/19 19:00 135 27 95/42 (59) 98 12/27/19 19:00 18 95/42 Mechanical Ventilator 80 12/27/19 19:00 95/42 12/27/19 18:30 134 27 93/46 (62) 98 12/27/19 18:00 135 29 96/49 (65) 98 12/27/19 18:00 28 91/44 Mechanical Ventilator 80 12/27/19 18:00 91/44 12/27/19 17:30 135 30 100/55 (70) 97 12/27/19 17:00 133 30 101/53 (69) 98 12/27/19 17:00 30 94/54 Mechanical Ventilator 80 12/27/19 17:00 94/54 12/27/19 16:30 130 29 111/53 (72) 98 12/27/19 16:00 80 12/27/19 16:00 99.0 127 28 103/58 (73) 100 12/27/19 16:00 125 12/27/19 16:00 30 102/51 Mechanical Ventilator 80 12/27/19 16:00 102/51 12/27/19 16:00 Mechanical Ventilator 12/27/19 15:30 124 29 107/52 (70) 100 12/27/19 15:00 125 28 80 12/27/19 15:00 28 98/53 Mechanical Ventilator 80 12/27/19 15:00 98/53 12/27/19 15:00 123 28 97/52 (67) 98 12/27/19 14:30 123 28 88/50 (63) 99 12/27/19 14:00 27 91/51 Mechanical Ventilator 80 12/27/19 14:00 91/51 12/27/19 14:00 124 26 100/53 (69) 100 12/27/19 13:30 123 26 103/58 (73) 100 12/27/19 13:00 27 105/57 Mechanical Ventilator 80 12/27/19 13:00 105/57 12/27/19 13:00 123 27 103/60 (74) 98 12/27/19 12:30 124 29 102/53 (69) 98 12/27/19 12:00 122 12/27/19 12:00 Mechanical Ventilator 12/27/19 12:00 28 96/52 Mechanical Ventilator 80 12/27/19 12:00 96/52 12/27/19 12:00 80 12/27/19 12:00 99.2 123 28 104/51 (68) 100 12/27/19 11:45 122 29 105/54 (71) 100 12/27/19 11:30 125 23 119/57 (77) 100 12/27/19 11:25 28 98/58 Mechanical Ventilator 15.0 80 12/27/19 11:00 122 28 103/52 (69) 100 12/27/19 11:00 28 95/51 Mechanical Ventilator 80 12/27/19 11:00 95/51 12/27/19 10:30 123 28 80 12/27/19 10:30 124 29 99/52 (68) 99 12/27/19 10:00 123 27 94/53 (67) 99 12/27/19 10:00 30 94/53 Mechanical Ventilator 80 12/27/19 10:00 94/53 12/27/19 09:30 123 30 110/57 (74) 100 12/27/19 09:00 29 105/61 Mechanical Ventilator 80 12/27/19 09:00 105/61 12/27/19 09:00 123 29 114/61 (78) 100 12/27/19 08:30 124 30 105/56 (72) 100 12/27/19 08:00 126 12/27/19 08:00 80 12/27/19 08:00 29 122/75 Mechanical Ventilator 80 12/27/19 08:00 99.9 126 28 87/49 (62) 100 12/27/19 08:00 Mechanical Ventilator 12/27/19 07:56 88/50 12/27/19 07:30 125 26 89/53 (65) 100 Intake and Output 12/27/19 12/28/19 19:00 07:00 Intake Total 1401.56 ml 1429.18 ml Output Total 1045 ml 0 ml Balance 356.56 ml 1429.18 ml Free Water 130 ml IV Total 851.56 ml 1044.18 ml Tube Feeding 420 ml 385 ml Output Urine Total 5 ml 0 ml Stool Total 40 ml Hemodialysis UF 1000 ml Laboratory Tests 12/27/19 11:00: Activated Partial Thromboplast Time 68H 12/28/19 03:45: Activated Partial Thromboplast Time > 150*H, White Blood Count 37.5*H, Red Blood Count 2.49L, Hemoglobin 7.5L, Hematocrit 23.8L, Mean Corpuscular Volume 96 , Mean Corpuscular Hemoglobin 30.0, Mean Corpuscular Hemoglobin Concent 31.4L, Red Cell Distribution Width 16.6H, Platelet Count 270, Mean Platelet Volume 7.2 , Neutrophils (%) (Auto) , Lymphocytes (%) (Auto) , Monocytes (%) (Auto) , Eosinophils (%) (Auto) , Basophils (%) (Auto) , Neutrophils % (Manual) [Pending] , Lymphocytes % (Manual) [Pending], Platelet Estimate [Pending], Platelet Morphology [Pending], Sodium Level 129L, Potassium Level 3.2L, Chloride Level 86L, Carbon Dioxide Level 30, Anion Gap 14, Blood Urea Nitrogen 33H, Creatinine 3.0H, Estimat Glomerular Filtration Rate 21.6, Glucose Level 516#*H, Calcium Level 7.9L, Total Bilirubin 0.6, Aspartate Amino Transf (AST/SGOT) 29, Alanine Aminotransferase (ALT/SGPT) 35, Alkaline Phosphatase 217H, Total Protein 6.8, Albumin 1.8L, Globulin 5.0, Albumin/Globulin Ratio 0.4L, Random Vancomycin Level 21.0 12/28/19 06:50: Activated Partial Thromboplast Time [Pending] Height (Feet): 5 Height (Inches): 6.00 Weight (Pounds): 153 General Appearance: lethargic EENT: normal ENT inspection Neck: supple Cardiovascular: tachycardia Respiratory/Chest: decreased breath sounds Abdomen: soft, hypoactive bowel sounds Extremities: non-tender João Rdz MD December 28, 2019 07:10
--- NOTE | 2019-12-28 07:30 | NUR ---
Nurse Note: Report given to DARYA Bob for continuity of care.
--- NOTE | 2019-12-28 08:04 | NUR ---
NURSE NOTES: Spoke with Lavelle from pharmacy. PTT results came back at 76; Heparin drip remains at 30units/kg. PTT draw in AM. Spoke with Hari Arroyo, HD nurse; aware of HD order for today. Stated will be at the unit today in AM. ABG drawn by RT; patient's O2 saturation is back up to 98%. Will notify ABG results to Dr Cortes.
[2019-12-28] MEDS: Nephrovite tab (Rena-Vite) NG SCH (08:16)
[2019-12-28] MEDS: Pantoprazole Inj IVP SCH (08:17)
[2019-12-28] MEDS: Midodrine 10mg tab NG SCH ×3 (08:17→17:33)
[2019-12-28] MEDS: Renvela 800mg Pkt NG SCH ×3 (08:17→17:33)
--- NOTE | 2019-12-28 08:51 | NUR ---
NURSE NOTES: Scheduled medication given to patient. Left nares intact, patent, infusing TF at prescribed rate. Patient remains on Fentanyl 130mcg/hr, infusing on the left AC peripheral IV. Heparin infusing at 30 units/kg on left forearm IV. Levophed infusing at 20mcg/min on the right femoral Bismark catheter. Joe catheter and rectal tube in place. Cooling blanket in place, noted temperature 98.6 at this time; turned off for now. Will continue to monitor patient.
--- NOTE | 2019-12-28 10:04 | Urology Progress Note ---
Assessment/Plan Assessment/Plan: 1. Phimosis. 2. Retention. 3. Hematuria. 4. Pyuria. 5. Proteinuria. 6. Acute kidney injury. 7. Meatal stenosis. monitor clinically maintain barnes, placed 12/04 hand irrigate PRN monitor urine output and renal fxn consider renal imaging abx as ordered HD per nephrology Subjective Allergies: Coded Allergies: No Known Allergies (Unverified , 11/29/19) Subjective remains on vent, still with minimal urine output, HD Objective Last 24 Hour Vital Signs Date Time Temp Pulse Resp B/P (MAP) Pulse Ox O2 Delivery O2 Flow Rate FiO2 12/28/19 09:30 119 20 127/53 (77) 97 12/28/19 09:15 118 20 121/55 (77) 98 12/28/19 09:00 21 122/50 Mechanical Ventilator 80 12/28/19 09:00 122/50 12/28/19 09:00 120 21 122/50 (74) 99 12/28/19 08:45 119 20 125/53 (77) 99 12/28/19 08:30 125 20 114/50 (71) 96 12/28/19 08:00 Mechanical Ventilator 12/28/19 08:00 22 125/55 Mechanical Ventilator 80 12/28/19 08:00 125/55 12/28/19 08:00 100.0 121 22 125/55 (78) 97 12/28/19 08:00 120 12/28/19 08:00 80 12/28/19 07:30 128 34 106/48 (67) 85 12/28/19 07:12 128 33 80 12/28/19 07:00 32 91/47 Mechanical Ventilator 80 12/28/19 07:00 91/49 12/28/19 07:00 126 36 91/47 (62) 87 12/28/19 06:30 130 27 90/43 (59) 91 12/28/19 06:17 39 112/49 Mechanical Ventilator 80 12/28/19 06:00 125 24 112/49 (70) 95 12/28/19 06:00 28 112/49 Mechanical Ventilator 80 12/28/19 06:00 112/49 12/28/19 05:30 120 31 111/47 (68) 94 12/28/19 05:00 116 32 118/53 (74) 95 12/28/19 05:00 32 118/53 Mechanical Ventilator 80 12/28/19 05:00 118/53 12/28/19 04:31 94/43 12/28/19 04:30 115 31 92/42 (59) 92 12/28/19 04:00 80 12/28/19 04:00 110 12/28/19 04:00 Mechanical Ventilator 12/28/19 04:00 30 128/59 Mechanical Ventilator 80 12/28/19 04:00 128/59 12/28/19 04:00 98.2 110 30 128/59 (82) 98 12/28/19 03:30 108 28 80 12/28/19 03:30 110 23 137/61 (86) 99 12/28/19 03:00 21 115/52 Mechanical Ventilator 80 12/28/19 03:00 115/52 12/28/19 03:00 116 21 115/52 (73) 87 12/28/19 02:30 110 29 124/56 (78) 100 12/28/19 02:25 100.5 12/28/19 02:00 117 30 128/60 (82) 99 12/28/19 02:00 29 128/60 Mechanical Ventilator 80 12/28/19 02:00 128/60 12/28/19 01:30 116 30 116/57 (76) 99 12/28/19 01:00 115 29 122/58 (79) 99 12/28/19 01:00 22 122/58 Mechanical Ventilator 80 12/28/19 01:00 122/58 12/28/19 00:30 118 30 110/61 (77) 99 12/28/19 00:00 100.3 119 23 103/49 (67) 100 12/28/19 00:00 80 12/28/19 00:00 Mechanical Ventilator 12/28/19 00:00 23 103/49 Mechanical Ventilator 80 12/28/19 00:00 103/49 12/27/19 23:30 120 28 110/50 (70) 100 12/27/19 23:10 121 30 80 12/27/19 23:00 28 108/50 Mechanical Ventilator 80 12/27/19 23:00 108/50 12/27/19 23:00 122 29 108/50 (69) 100 12/27/19 22:30 122 29 108/53 (71) 100 12/27/19 22:00 23 109/46 Mechanical Ventilator 80 12/27/19 22:00 109/46 12/27/19 22:00 125 27 109/46 (67) 100 12/27/19 21:30 100.2 127 29 108/54 (72) 99 12/27/19 21:00 128 29 112/49 (70) 99 12/27/19 21:00 23 112/53 Mechanical Ventilator 80 12/27/19 21:00 112/53 12/27/19 20:30 130 30 108/51 (70) 99 12/27/19 20:00 131 12/27/19 20:00 Mechanical Ventilator 12/27/19 20:00 20 97/48 Mechanical Ventilator 80 12/27/19 20:00 97/48 12/27/19 20:00 80 12/27/19 20:00 102.5 131 30 97/48 (64) 97 12/27/19 19:47 75/56 12/27/19 19:30 135 28 75/41 (52) 98 12/27/19 19:20 129 26 80 12/27/19 19:00 135 27 95/42 (59) 98 12/27/19 19:00 18 95/42 Mechanical Ventilator 80 12/27/19 19:00 95/42 12/27/19 18:30 134 27 93/46 (62) 98 12/27/19 18:00 135 29 96/49 (65) 98 12/27/19 18:00 28 91/44 Mechanical Ventilator 80 12/27/19 18:00 91/44 12/27/19 17:30 135 30 100/55 (70) 97 12/27/19 17:00 133 30 101/53 (69) 98 12/27/19 17:00 30 94/54 Mechanical Ventilator 80 12/27/19 17:00 94/54 12/27/19 16:30 130 29 111/53 (72) 98 12/27/19 16:00 80 12/27/19 16:00 99.0 127 28 103/58 (73) 100 12/27/19 16:00 125 12/27/19 16:00 30 102/51 Mechanical Ventilator 80 12/27/19 16:00 102/51 12/27/19 16:00 Mechanical Ventilator 12/27/19 15:30 124 29 107/52 (70) 100 12/27/19 15:00 125 28 80 12/27/19 15:00 28 98/53 Mechanical Ventilator 80 12/27/19 15:00 98/53 12/27/19 15:00 123 28 97/52 (67) 98 12/27/19 14:30 123 28 88/50 (63) 99 12/27/19 14:00 27 91/51 Mechanical Ventilator 80 12/27/19 14:00 91/51 12/27/19 14:00 124 26 100/53 (69) 100 12/27/19 13:30 123 26 103/58 (73) 100 12/27/19 13:00 27 105/57 Mechanical Ventilator 80 12/27/19 13:00 105/57 12/27/19 13:00 123 27 103/60 (74) 98 12/27/19 12:30 124 29 102/53 (69) 98 12/27/19 12:00 122 12/27/19 12:00 Mechanical Ventilator 12/27/19 12:00 28 96/52 Mechanical Ventilator 80 12/27/19 12:00 96/52 12/27/19 12:00 80 12/27/19 12:00 99.2 123 28 104/51 (68) 100 12/27/19 11:45 122 29 105/54 (71) 100 12/27/19 11:30 125 23 119/57 (77) 100 12/27/19 11:25 28 98/58 Mechanical Ventilator 15.0 80 12/27/19 11:00 122 28 103/52 (69) 100 12/27/19 11:00 28 95/51 Mechanical Ventilator 80 12/27/19 11:00 95/51 12/27/19 10:30 123 28 80 12/27/19 10:30 124 29 99/52 (68) 99 Intake and Output 12/27/19 12/28/19 19:00 07:00 Intake Total 1401.56 ml 1638.44 ml Output Total 1045 ml 0 ml Balance 356.56 ml 1638.44 ml Free Water 130 ml IV Total 851.56 ml 1218.44 ml Tube Feeding 420 ml 420 ml Output Urine Total 5 ml 0 ml Stool Total 40 ml Hemodialysis UF 1000 ml Microbiology Date/Time Source Procedure Growth Status 12/22/19 16:15 Blood Blood Culture - Final NO GROWTH AFTER 5 DAYS Complete 12/16/19 16:00 Sputum Gram Stain - Final Complete 12/16/19 16:00 Sputum Sputum Culture - Final NORMAL UPPER RESPIRATORY ALISIA PRESENT Complete 12/23/19 04:00 Stool Clostridium difficile Toxin Assay - Final Complete 12/23/19 04:00 Indwelling Cath Urine Culture - Final NO GROWTH AFTER 48 HOURS Complete Current Medications Medications (Trade) Dose Ordered Sig/Vicki Route PRN Reason Start Time Stop Time Status Last Admin Dose Admin Acetaminophen (Tylenol) 650 mg Q4H PRN NG Temp >100.5 12/06/19 14:15 01/05/20 14:14 12/28/19 01:40 Acetaminophen (Tylenol) 650 mg Q4H PRN RECTAL Mild Pain (Pain Scale 1-3) 12/04/19 11:45 01/03/20 11:44 12/06/19 19:17 Chlorhexidine Gluconate (Arely-Hex 2%) 1 applic DAILY@2000 TOPIC 12/05/19 20:00 03/04/20 19:59 12/27/19 19:48 Dextrose (Dextrose 50%) 25 ml Q30M PRN IV Hypoglycemia 11/29/19 14:15 02/27/20 14:14 Dextrose (Dextrose 50%) 50 ml Q30M PRN IV Hypoglycemia 11/29/19 14:15 02/27/20 14:14 Fentanyl Citrate 250 ml @ 0 mls/hr Q24H IV 12/27/19 11:00 03/26/20 10:59 12/28/19 06:17 Folic Acid (Folate) 1 mg DAILY NG 12/18/19 09:00 01/17/20 08:59 12/28/19 08:17 Heparin Sodium/ Dextrose 500 ml @ 40.38 mls/ hr ADJUST PER PROTOCOL IV 12/27/19 05:00 01/25/20 21:14 12/27/19 23:47 Hydralazine HCl (Apresoline) 10 mg Q4H PRN IV For High Blood Pressure 11/29/19 15:15 02/27/20 15:14 Loperamide HCl (Imodium) 2 mg Q6H PRN NG Diarrhea 12/12/19 12:45 01/11/20 12:44 Meropenem 500 mg/ Sodium Chloride 50 ml @ 100 mls/hr Q24H IVPB 12/24/19 21:30 12/29/19 21:29 12/27/19 21:42 Micafungin Sodium 100 mg/Sodium Chloride 100 ml @ 100 mls/hr Q24H IVPB 12/24/19 22:00 12/31/19 21:59 12/27/19 22:20 Midazolam HCl 100 ml @ 0 mls/hr Q24H PRN IV Restlessness 12/24/19 16:30 12/31/19 16:29 12/25/19 16:31 Midodrine (Pro-Amatine) 10 mg THREE TIMES A DAY NG 12/27/19 13:00 03/11/20 12:59 12/28/19 08:17 Norepinephrine Bitartrate 8 mg/ Dextrose 250 ml @ 0 mls/hr Q24H IV 12/18/19 09:00 01/17/20 08:59 12/28/19 04:31 Ondansetron HCl (Zofran) 4 mg Q6H PRN IVP Nausea & Vomiting 11/29/19 14:15 12/29/19 14:14 Pantoprazole (Protonix) 40 mg DAILY IVP 11/30/19 12:15 12/30/19 12:14 12/28/19 08:17 Sevelamer Carbonate (Renvela) 800 mg THREE TIMES A DAY NG 12/22/19 13:00 03/21/20 12:59 12/28/19 08:17 Vancomycin HCl (Vanco rx to dose) 1 ea DAILY PRN MISC Per rx protocol 12/08/19 19:30 01/07/20 19:29 Vitamin B Complex/ Vit C/Folic Acid (Nephrovite) 1 tab DAILY NG 12/16/19 09:00 01/15/20 08:59 12/28/19 08:16 Laboratory Tests 12/27/19 11:00: Activated Partial Thromboplast Time 68H 12/28/19 03:45: Activated Partial Thromboplast Time > 150*H, White Blood Count 37.5*H, Red Blood Count 2.49L, Hemoglobin 7.5L, Hematocrit 23.8L, Mean Corpuscular Volume 96 , Mean Corpuscular Hemoglobin 30.0, Mean Corpuscular Hemoglobin Concent 31.4L, Red Cell Distribution Width 16.6H, Platelet Count 270, Mean Platelet Volume 7.2 , Neutrophils (%) (Auto) , Lymphocytes (%) (Auto) , Monocytes (%) (Auto) , Eosinophils (%) (Auto) , Basophils (%) (Auto) , Differential Total Cells Counted 100, Neutrophils % (Manual) 88H, Lymphocytes % (Manual) 3L, Monocytes % (Manual) 2, Eosinophils % (Manual) 0, Basophils % (Manual) 0, Band Neutrophils 7 , Platelet Estimate Adequate, Platelet Morphology Normal, Polychromasia 1+, Hypochromasia 1+, Anisocytosis 1+, Sodium Level 129L, Potassium Level 3.2L, Chloride Level 86L, Carbon Dioxide Level 30, Anion Gap 14, Blood Urea Nitrogen 33H, Creatinine 3.0H, Estimat Glomerular Filtration Rate 21.6, Glucose Level 516 #*H, Calcium Level 7.9L, Total Bilirubin 0.6, Aspartate Amino Transf (AST/SGOT) 29, Alanine Aminotransferase (ALT/SGPT) 35, Alkaline Phosphatase 217H, Total Protein 6.8, Albumin 1.8L, Globulin 5.0, Albumin/Globulin Ratio 0.4L, Random Vancomycin Level 21.0 12/28/19 06:50: Activated Partial Thromboplast Time 76H 12/28/19 07:37: Arterial Blood pH 7.228*L, Arterial Blood Partial Pressure CO2 81.9*H, Arterial Blood Partial Pressure O2 50.3L, Arterial Blood HCO3 33.4H, Arterial Blood Oxygen Saturation 81.2*L, Arterial Blood Base Excess 4.6H, Melecio Test Positive Height (Feet): 5 Height (Inches): 6.00 Weight (Pounds): 153 Objective stable no bleeding at prepuce barnes indwelling, marge urine Kai Berger MD December 28, 2019 10:04
--- NOTE | 2019-12-28 10:48 | NUR ---
NURSE NOTES: Lab glucose noted to be 516mg/dL. Orders received from Dr Soriano. Fingerstick blood glucose noted to be 163mg/dL. Dr Soriano notified, cancelled IV insulin. Will continue to monitor patient.
[2019-12-28] MEDS: Heparin 25,000u/D5W 500ml 500 ML IV SCH ×2 (11:06→23:36)
--- NOTE | 2019-12-28 11:22 | NUR ---
NURSE NOTES: xray at bedside.
[2019-12-28] MEDS ORDERED: Insulin Human Regular 100units/ml 3ml IV SCH (12:00)
--- NOTE | 2019-12-28 12:15 | NUR ---
NURSE NOTES: Dr Appiah rounded on patient, updated on patient's condition. No new orders received. Will continue to monitor.
--- NOTE | 2019-12-28 12:22 | Pulmonology Progress Note ---
Subjective ROS Limited/Unobtainable: No Interval Events: Intubated ;proning on hold due to facial decubitus Constitutional: Reports: other - on vent, less pressors ; Denies: fever HEENT: Repors: no symptoms Respiratory: Reports: no symptoms Cardiovascular: Reports: no symptoms Gastrointestinal/Abdominal: Reports: other - + rectal tube ; Denies: nausea, vomiting Genitourinary: Reports: no symptoms Psychiatric: Reports: other - NA Skin: Denies: rash Musculoskeletal: Reports: other - NA Allergies: Coded Allergies: No Known Allergies (Unverified , 11/29/19) All Systems: reviewed and negative except above Subjective On daily HD Objective Last 24 Hour Vital Signs Date Time Temp Pulse Resp B/P (MAP) Pulse Ox O2 Delivery O2 Flow Rate FiO2 12/28/19 11:30 120 23 116/50 (72) 93 12/28/19 11:05 113/52 12/28/19 11:00 122 19 113/52 (72) 93 12/28/19 11:00 19 113/52 Mechanical Ventilator 80 12/28/19 11:00 113/52 12/28/19 10:45 122 20 124/51 (75) 94 12/28/19 10:37 124 25 80 12/28/19 10:30 122 21 123/49 (73) 94 12/28/19 10:15 120 20 119/48 (71) 95 12/28/19 10:00 20 121/50 Mechanical Ventilator 80 12/28/19 10:00 121/50 12/28/19 10:00 118 20 121/50 (73) 95 12/28/19 09:45 119 20 121/50 (73) 96 12/28/19 09:30 119 20 127/53 (77) 97 12/28/19 09:15 118 20 121/55 (77) 98 12/28/19 09:00 21 122/50 Mechanical Ventilator 80 12/28/19 09:00 122/50 12/28/19 09:00 120 21 122/50 (74) 99 12/28/19 08:45 119 20 125/53 (77) 99 12/28/19 08:30 125 20 114/50 (71) 96 12/28/19 08:00 Mechanical Ventilator 12/28/19 08:00 22 125/55 Mechanical Ventilator 80 12/28/19 08:00 125/55 5/16/20 08:00 100.0 121 22 125/55 (78) 97 12/28/19 08:00 120 12/28/19 08:00 80 12/28/19 07:30 128 34 106/48 (67) 85 12/28/19 07:12 128 33 80 12/28/19 07:00 32 91/47 Mechanical Ventilator 80 12/28/19 07:00 91/49 12/28/19 07:00 126 36 91/47 (62) 87 12/28/19 06:30 130 27 90/43 (59) 91 12/28/19 06:17 39 112/49 Mechanical Ventilator 80 12/28/19 06:00 125 24 112/49 (70) 95 12/28/19 06:00 28 112/49 Mechanical Ventilator 80 12/28/19 06:00 112/49 12/28/19 05:30 120 31 111/47 (68) 94 12/28/19 05:00 116 32 118/53 (74) 95 12/28/19 05:00 32 118/53 Mechanical Ventilator 80 12/28/19 05:00 118/53 12/28/19 04:31 94/43 12/28/19 04:30 115 31 92/42 (59) 92 12/28/19 04:00 80 12/28/19 04:00 110 12/28/19 04:00 Mechanical Ventilator 12/28/19 04:00 30 128/59 Mechanical Ventilator 80 12/28/19 04:00 128/59 12/28/19 04:00 98.2 110 30 128/59 (82) 98 12/28/19 03:30 108 28 80 12/28/19 03:30 110 23 137/61 (86) 99 12/28/19 03:00 21 115/52 Mechanical Ventilator 80 12/28/19 03:00 115/52 12/28/19 03:00 116 21 115/52 (73) 87 12/28/19 02:30 110 29 124/56 (78) 100 12/28/19 02:25 100.5 12/28/19 02:00 117 30 128/60 (82) 99 12/28/19 02:00 29 128/60 Mechanical Ventilator 80 12/28/19 02:00 128/60 12/28/19 01:30 116 30 116/57 (76) 99 12/28/19 01:00 115 29 122/58 (79) 99 12/28/19 01:00 22 122/58 Mechanical Ventilator 80 12/28/19 01:00 122/58 12/28/19 00:30 118 30 110/61 (77) 99 12/28/19 00:00 100.3 119 23 103/49 (67) 100 12/28/19 00:00 80 12/28/19 00:00 Mechanical Ventilator 12/28/19 00:00 23 103/49 Mechanical Ventilator 80 12/28/19 00:00 103/49 12/27/19 23:30 120 28 110/50 (70) 100 12/27/19 23:10 121 30 80 12/27/19 23:00 28 108/50 Mechanical Ventilator 80 12/27/19 23:00 108/50 12/27/19 23:00 122 29 108/50 (69) 100 12/27/19 22:30 122 29 108/53 (71) 100 12/27/19 22:00 23 109/46 Mechanical Ventilator 80 12/27/19 22:00 109/46 12/27/19 22:00 125 27 109/46 (67) 100 12/27/19 21:30 100.2 127 29 108/54 (72) 99 12/27/19 21:00 128 29 112/49 (70) 99 12/27/19 21:00 23 112/53 Mechanical Ventilator 80 12/27/19 21:00 112/53 12/27/19 20:30 130 30 108/51 (70) 99 12/27/19 20:00 131 12/27/19 20:00 Mechanical Ventilator 12/27/19 20:00 20 97/48 Mechanical Ventilator 80 12/27/19 20:00 97/48 12/27/19 20:00 80 12/27/19 20:00 102.5 131 30 97/48 (64) 97 12/27/19 19:47 75/56 12/27/19 19:30 135 28 75/41 (52) 98 12/27/19 19:20 129 26 80 12/27/19 19:00 135 27 95/42 (59) 98 12/27/19 19:00 18 95/42 Mechanical Ventilator 80 12/27/19 19:00 95/42 12/27/19 18:30 134 27 93/46 (62) 98 12/27/19 18:00 135 29 96/49 (65) 98 12/27/19 18:00 28 91/44 Mechanical Ventilator 80 12/27/19 18:00 91/44 12/27/19 17:30 135 30 100/55 (70) 97 12/27/19 17:00 133 30 101/53 (69) 98 12/27/19 17:00 30 94/54 Mechanical Ventilator 80 12/27/19 17:00 94/54 12/27/19 16:30 130 29 111/53 (72) 98 12/27/19 16:00 80 12/27/19 16:00 99.0 127 28 103/58 (73) 100 12/27/19 16:00 125 12/27/19 16:00 30 102/51 Mechanical Ventilator 80 12/27/19 16:00 102/51 12/27/19 16:00 Mechanical Ventilator 12/27/19 15:30 124 29 107/52 (70) 100 12/27/19 15:00 125 28 80 12/27/19 15:00 28 98/53 Mechanical Ventilator 80 12/27/19 15:00 98/53 12/27/19 15:00 123 28 97/52 (67) 98 12/27/19 14:30 123 28 88/50 (63) 99 12/27/19 14:00 27 91/51 Mechanical Ventilator 80 12/27/19 14:00 91/51 12/27/19 14:00 124 26 100/53 (69) 100 12/27/19 13:30 123 26 103/58 (73) 100 12/27/19 13:00 27 105/57 Mechanical Ventilator 80 12/27/19 13:00 105/57 12/27/19 13:00 123 27 103/60 (74) 98 12/27/19 12:30 124 29 102/53 (69) 98 Intake and Output 12/27/19 12/28/19 19:00 07:00 Intake Total 1401.56 ml 1638.44 ml Output Total 1045 ml 0 ml Balance 356.56 ml 1638.44 ml Free Water 130 ml IV Total 851.56 ml 1218.44 ml Tube Feeding 420 ml 420 ml Output Urine Total 5 ml 0 ml Stool Total 40 ml Hemodialysis UF 1000 ml General Appearance: no acute distress Respiratory: chest wall non-tender, decreased breath sounds Cardiovascular: normal peripheral pulses, normal rate Abdomen: normal bowel sounds Laboratory Tests 12/28/19 03:45: White Blood Count 37.5*H, Red Blood Count 2.49L, Hemoglobin 7.5L, Hematocrit 23.8L, Mean Corpuscular Volume 96, Mean Corpuscular Hemoglobin 30.0, Mean Corpuscular Hemoglobin Concent 31.4L, Red Cell Distribution Width 16.6H, Platelet Count 270, Mean Platelet Volume 7.2, Neutrophils (%) (Auto) , Lymphocytes (%) (Auto) , Monocytes (%) (Auto) , Eosinophils (%) (Auto) , Basophils (%) (Auto) , Differential Total Cells Counted 100, Neutrophils % ( Manual) 88H, Lymphocytes % (Manual) 3L, Monocytes % (Manual) 2, Eosinophils % ( Manual) 0, Basophils % (Manual) 0, Band Neutrophils 7, Platelet Estimate Adequate, Platelet Morphology Normal, Polychromasia 1+, Hypochromasia 1+, Anisocytosis 1+, Activated Partial Thromboplast Time > 150*H, Sodium Level 129L , Potassium Level 3.2L, Chloride Level 86L, Carbon Dioxide Level 30, Anion Gap 14, Blood Urea Nitrogen 33H, Creatinine 3.0H, Estimat Glomerular Filtration Rate 21.6, Glucose Level 516#*H, Calcium Level 7.9L, Total Bilirubin 0.6, Aspartate Amino Transf (AST/SGOT) 29, Alanine Aminotransferase (ALT/SGPT) 35, Alkaline Phosphatase 217H, Total Protein 6.8, Albumin 1.8L, Globulin 5.0, Albumin/Globulin Ratio 0.4L, Random Vancomycin Level 21.0 12/28/19 06:50: Activated Partial Thromboplast Time 76H 12/28/19 07:37: Arterial Blood pH 7.228*L, Arterial Blood Partial Pressure CO2 81.9*H, Arterial Blood Partial Pressure O2 50.3L, Arterial Blood HCO3 33.4H, Arterial Blood Oxygen Saturation 81.2*L, Arterial Blood Base Excess 4.6H, Melecio Test Positive Current Medications Medications (Trade) Dose Ordered Sig/Vicki Route PRN Reason Start Time Stop Time Status Last Admin Dose Admin Acetaminophen (Tylenol) 650 mg Q4H PRN NG Temp >100.5 12/06/19 14:15 01/05/20 14:14 12/28/19 01:40 Acetaminophen (Tylenol) 650 mg Q4H PRN RECTAL Mild Pain (Pain Scale 1-3) 12/04/19 11:45 01/03/20 11:44 12/06/19 19:17 Chlorhexidine Gluconate (Arely-Hex 2%) 1 applic DAILY@2000 TOPIC 12/05/19 20:00 03/04/20 19:59 12/27/19 19:48 Dextrose (Dextrose 50%) 25 ml Q30M PRN IV Hypoglycemia 11/29/19 14:15 02/27/20 14:14 Dextrose (Dextrose 50%) 50 ml Q30M PRN IV Hypoglycemia 11/29/19 14:15 02/27/20 14:14 Fentanyl Citrate 250 ml @ 0 mls/hr Q24H IV 12/27/19 11:00 03/26/20 10:59 12/28/19 06:17 Folic Acid (Folate) 1 mg DAILY NG 12/18/19 09:00 01/17/20 08:59 12/28/19 08:17 Heparin Sodium/ Dextrose 500 ml @ 40.38 mls/ hr ADJUST PER PROTOCOL IV 12/27/19 05:00 01/25/20 21:14 12/28/19 11:06 Hydralazine HCl (Apresoline) 10 mg Q4H PRN IV For High Blood Pressure 11/29/19 15:15 02/27/20 15:14 Insulin Human Regular (NovoLIN R) 5 units ONCE IV 12/28/19 12:00 12/28/19 14:00 Loperamide HCl (Imodium) 2 mg Q6H PRN NG Diarrhea 12/12/19 12:45 01/11/20 12:44 Meropenem 500 mg/ Sodium Chloride 50 ml @ 100 mls/hr Q24H IVPB 12/24/19 21:30 12/29/19 21:29 12/27/19 21:42 Micafungin Sodium 100 mg/Sodium Chloride 100 ml @ 100 mls/hr Q24H IVPB 12/24/19 22:00 12/31/19 21:59 12/27/19 22:20 Midazolam HCl 100 ml @ 0 mls/hr Q24H PRN IV Restlessness 12/24/19 16:30 12/31/19 16:29 12/25/19 16:31 Midodrine (Pro-Amatine) 10 mg THREE TIMES A DAY NG 12/27/19 13:00 03/11/20 12:59 12/28/19 08:17 Norepinephrine Bitartrate 8 mg/ Dextrose 250 ml @ 0 mls/hr Q24H IV 12/18/19 09:00 01/17/20 08:59 12/28/19 11:05 Ondansetron HCl (Zofran) 4 mg Q6H PRN IVP Nausea & Vomiting 11/29/19 14:15 12/29/19 14:14 Pantoprazole (Protonix) 40 mg DAILY IVP 11/30/19 12:15 12/30/19 12:14 12/28/19 08:17 Sevelamer Carbonate (Renvela) 800 mg THREE TIMES A DAY NG 12/22/19 13:00 03/21/20 12:59 12/28/19 08:17 Vancomycin HCl (Vanco rx to dose) 1 ea DAILY PRN MISC Per rx protocol 12/08/19 19:30 01/07/20 19:29 Vitamin B Complex/ Vit C/Folic Acid (Nephrovite) 1 tab DAILY NG 12/16/19 09:00 01/15/20 08:59 12/28/19 08:16 Assessment/Plan Assessment/Plan IMPRESSION: 1. Bilateral pneumonia. 2. Positive COVID-19. 3. Respiratory failure. DISCUSSION: Intubated On AC 20; FiO2 100; PEEP 3; SaO2 99% Oxygenation stable On empiric IV heparin for possible PE Mediastinal PTX; stable; continue low PEEP ventilation Hold proning On Fentanyl On HD now S/p Actemra Continue PEEP 3 Continue vent Tray Tolentino Omar Syed MD December 28, 2019 12:22
--- NOTE | 2019-12-28 12:28 | NUR ---
NURSE NOTES: Complete bed bath given. Linens changed, placed patient in clean gown. Wound photos taken. TF resumed after care. Levophed infusing at 22mcg/min on right femoral [place]. Fentanyl infusing at 130mcg/hr. Remains orally intubated, saturating 94% with current vent settings. Cooling blanket turned on, temperature noted to be 99.2 rectally. Will continue to monitor.
--- NOTE | 2019-12-28 12:32 | Diagnostic Imaging Report ---
EXAM: XR Chest, 1 View CLINICAL HISTORY: INFECT TECHNIQUE: Frontal view of the chest. COMPARISON: Chest radiograph on 12/25/2019 FINDINGS: Hardware: Endotracheal tube terminates in the region of the upper thoracic trachea. Enteric tube courses past the diaphragm and out of the [id number]. Lungs/pleura: Diffuse opacities and consolidation throughout the lungs, similar in the left lung and increased in the right lung. Possible small right pleural effusion. Heart/mediastinum: Normal. No cardiomegaly. Soft tissues: Unremarkable. Bones: No acute fracture. Degenerative changes of the acromioclavicular joints and spine. Old fracture deformity of the distal right clavicle. Upper abdomen: Normal. IMPRESSION: 1. Endotracheal tube terminates in the region of the upper thoracic trachea. Enteric tube courses past the diaphragm and out of the field-of- view. 2. Diffuse opacities and consolidation throughout the lungs, similar in the left lung and increased in the right lung. Possible small right pleural effusion.
--- NOTE | 2019-12-28 12:56 | Cardiac Electrophysiology PN ---
Assessment/Plan Assessment/Plan 1. Atrial fib with RVR 170 before intubation on 12/04/19. Troponin 0.77. No further atrial fib. In SR 2. Sinus Tachycardia due to COVID-19 pneumonia. On IV antibiotic per ID. Echo pending COVID. 3. Septic shock. On Levophed 22 Mcg, Midodrine 10 tid and iv Abx. 4. Respiratory failure, on the Vent by Dr. Cortes. 80% Fio2, PEEP 3 on heparin drip for possible PE 5. Acute renal failure. On HD per Dr. Sanchez via RFV [place] 6. Full code DW RN Subjective Subjective Intubated in ICU on 80% Fio2 and PEEP 3 on Levo 22 mcg, Fentanyl 150 and Versed 5 drip. Getting HD on heparin drip Objective Last 24 Hour Vital Signs Date Time Temp Pulse Resp B/P (MAP) Pulse Ox O2 Delivery O2 Flow Rate FiO2 12/28/19 12:30 113/55 12/28/19 12:15 99.2 120 21 113/55 (74) 95 12/28/19 12:00 21 113/55 Mechanical Ventilator 80 12/28/19 12:00 113/55 12/28/19 12:00 121 24 112/53 (72) 94 12/28/19 11:30 120 23 116/50 (72) 93 12/28/19 11:05 113/52 12/28/19 11:00 122 19 113/52 (72) 93 12/28/19 11:00 19 113/52 Mechanical Ventilator 80 12/28/19 11:00 113/52 12/28/19 10:45 122 20 124/51 (75) 94 12/28/19 10:37 124 25 80 12/28/19 10:30 122 21 123/49 (73) 94 12/28/19 10:15 120 20 119/48 (71) 95 12/28/19 10:00 20 121/50 Mechanical Ventilator 80 12/28/19 10:00 121/50 12/28/19 10:00 118 20 121/50 (73) 95 12/28/19 09:45 119 20 121/50 (73) 96 12/28/19 09:30 119 20 127/53 (77) 97 12/28/19 09:15 118 20 121/55 (77) 98 5/16/20 09:00 21 122/50 Mechanical Ventilator 80 12/28/19 09:00 122/50 12/28/19 09:00 120 21 122/50 (74) 99 12/28/19 08:45 119 20 125/53 (77) 99 12/28/19 08:30 125 20 114/50 (71) 96 12/28/19 08:00 Mechanical Ventilator 12/28/19 08:00 22 125/55 Mechanical Ventilator 80 12/28/19 08:00 125/55 12/28/19 08:00 100.0 121 22 125/55 (78) 97 12/28/19 08:00 120 12/28/19 08:00 80 12/28/19 07:30 128 34 106/48 (67) 85 12/28/19 07:12 128 33 80 12/28/19 07:00 32 91/47 Mechanical Ventilator 80 12/28/19 07:00 91/49 12/28/19 07:00 126 36 91/47 (62) 87 12/28/19 06:30 130 27 90/43 (59) 91 12/28/19 06:17 39 112/49 Mechanical Ventilator 80 12/28/19 06:00 125 24 112/49 (70) 95 12/28/19 06:00 28 112/49 Mechanical Ventilator 80 12/28/19 06:00 112/49 12/28/19 05:30 120 31 111/47 (68) 94 12/28/19 05:00 116 32 118/53 (74) 95 12/28/19 05:00 32 118/53 Mechanical Ventilator 80 12/28/19 05:00 118/53 12/28/19 04:31 94/43 12/28/19 04:30 115 31 92/42 (59) 92 12/28/19 04:00 80 12/28/19 04:00 110 12/28/19 04:00 Mechanical Ventilator 12/28/19 04:00 30 128/59 Mechanical Ventilator 80 12/28/19 04:00 128/59 12/28/19 04:00 98.2 110 30 128/59 (82) 98 12/28/19 03:30 108 28 80 12/28/19 03:30 110 23 137/61 (86) 99 12/28/19 03:00 21 115/52 Mechanical Ventilator 80 12/28/19 03:00 115/52 5/16/20 03:00 116 21 115/52 (73) 87 12/28/19 02:30 110 29 124/56 (78) 100 12/28/19 02:25 100.5 12/28/19 02:00 117 30 128/60 (82) 99 12/28/19 02:00 29 128/60 Mechanical Ventilator 80 12/28/19 02:00 128/60 12/28/19 01:30 116 30 116/57 (76) 99 12/28/19 01:00 115 29 122/58 (79) 99 12/28/19 01:00 22 122/58 Mechanical Ventilator 80 12/28/19 01:00 122/58 12/28/19 00:30 118 30 110/61 (77) 99 12/28/19 00:00 100.3 119 23 103/49 (67) 100 12/28/19 00:00 80 12/28/19 00:00 Mechanical Ventilator 12/28/19 00:00 23 103/49 Mechanical Ventilator 80 12/28/19 00:00 103/49 12/27/19 23:30 120 28 110/50 (70) 100 12/27/19 23:10 121 30 80 12/27/19 23:00 28 108/50 Mechanical Ventilator 80 12/27/19 23:00 108/50 12/27/19 23:00 122 29 108/50 (69) 100 12/27/19 22:30 122 29 108/53 (71) 100 12/27/19 22:00 23 109/46 Mechanical Ventilator 80 12/27/19 22:00 109/46 12/27/19 22:00 125 27 109/46 (67) 100 12/27/19 21:30 100.2 127 29 108/54 (72) 99 12/27/19 21:00 128 29 112/49 (70) 99 12/27/19 21:00 23 112/53 Mechanical Ventilator 80 12/27/19 21:00 112/53 12/27/19 20:30 130 30 108/51 (70) 99 12/27/19 20:00 131 12/27/19 20:00 Mechanical Ventilator 12/27/19 20:00 20 97/48 Mechanical Ventilator 80 12/27/19 20:00 97/48 12/27/19 20:00 80 12/27/19 20:00 102.5 131 30 97/48 (64) 97 12/27/19 19:47 75/56 12/27/19 19:30 135 28 75/41 (52) 98 12/27/19 19:20 129 26 80 12/27/19 19:00 135 27 95/42 (59) 98 12/27/19 19:00 18 95/42 Mechanical Ventilator 80 12/27/19 19:00 95/42 12/27/19 18:30 134 27 93/46 (62) 98 12/27/19 18:00 135 29 96/49 (65) 98 12/27/19 18:00 28 91/44 Mechanical Ventilator 80 12/27/19 18:00 91/44 12/27/19 17:30 135 30 100/55 (70) 97 12/27/19 17:00 133 30 101/53 (69) 98 12/27/19 17:00 30 94/54 Mechanical Ventilator 80 12/27/19 17:00 94/54 12/27/19 16:30 130 29 111/53 (72) 98 12/27/19 16:00 80 12/27/19 16:00 99.0 127 28 103/58 (73) 100 12/27/19 16:00 125 12/27/19 16:00 30 102/51 Mechanical Ventilator 80 12/27/19 16:00 102/51 12/27/19 16:00 Mechanical Ventilator 12/27/19 15:30 124 29 107/52 (70) 100 12/27/19 15:00 125 28 80 12/27/19 15:00 28 98/53 Mechanical Ventilator 80 12/27/19 15:00 98/53 12/27/19 15:00 123 28 97/52 (67) 98 12/27/19 14:30 123 28 88/50 (63) 99 12/27/19 14:00 27 91/51 Mechanical Ventilator 80 12/27/19 14:00 91/51 12/27/19 14:00 124 26 100/53 (69) 100 12/27/19 13:30 123 26 103/58 (73) 100 12/27/19 13:00 27 105/57 Mechanical Ventilator 80 12/27/19 13:00 105/57 12/27/19 13:00 123 27 103/60 (74) 98 Intake and Output 12/27/19 12/28/19 19:00 07:00 Intake Total 1401.56 ml 1638.44 ml Output Total 1045 ml 0 ml Balance 356.56 ml 1638.44 ml Free Water 130 ml IV Total 851.56 ml 1218.44 ml Tube Feeding 420 ml 420 ml Output Urine Total 5 ml 0 ml Stool Total 40 ml Hemodialysis UF 1000 ml Laboratory Tests Test 12/28/19 03:45 12/28/19 06:50 12/28/19 07:37 White Blood Count 37.5 K/UL (4.8-10.8) *H Red Blood Count 2.49 M/UL (4.70-6.10) L Hemoglobin 7.5 G/DL (14.2-18.0) L Hematocrit 23.8 % (42.0-52.0) L Mean Corpuscular Volume 96 FL (80-99) Mean Corpuscular Hemoglobin 30.0 PG (27.0-31.0) Mean Corpuscular Hemoglobin Concent 31.4 G/DL (32.0-36.0) L Red Cell Distribution Width 16.6 % (11.6-14.8) H Platelet Count 270 K/UL (150-450) Mean Platelet Volume 7.2 FL (6.5-10.1) Neutrophils (%) (Auto) % (45.0-75.0) Lymphocytes (%) (Auto) % (20.0-45.0) Monocytes (%) (Auto) % (1.0-10.0) Eosinophils (%) (Auto) % (0.0-3.0) Basophils (%) (Auto) % (0.0-2.0) Differential Total Cells Counted 100 Neutrophils % (Manual) 88 % (45-75) H Lymphocytes % (Manual) 3 % (20-45) L Monocytes % (Manual) 2 % (1-10) Eosinophils % (Manual) 0 % (0-3) Basophils % (Manual) 0 % (0-2) Band Neutrophils 7 % (0-8) Platelet Estimate Adequate Platelet Morphology Normal Polychromasia 1+ Hypochromasia 1+ Anisocytosis 1+ Activated Partial Thromboplast Time > 150 SEC (23-33) *H 76 SEC (23-33) H Sodium Level 129 MMOL/L (136-145) L Potassium Level 3.2 MMOL/L (3.5-5.1) L Chloride Level 86 MMOL/L (98-107) L Carbon Dioxide Level 30 MMOL/L (21-32) Anion Gap 14 mmol/L (5-15) Blood Urea Nitrogen 33 mg/dL (7-18) H Creatinine 3.0 MG/DL (0.55-1.30) H Estimat Glomerular Filtration Rate 21.6 mL/min (>60) Glucose Level 516 MG/DL (74-106) #*H Calcium Level 7.9 MG/DL (8.5-10.1) L Total Bilirubin 0.6 MG/DL (0.2-1.0) Aspartate Amino Transf (AST/SGOT) 29 U/L (15-37) Alanine Aminotransferase (ALT/SGPT) 35 U/L (12-78) Alkaline Phosphatase 217 U/L (46-116) H Total Protein 6.8 G/DL (6.4-8.2) Albumin 1.8 G/DL (3.4-5.0) L Globulin 5.0 g/dL Albumin/Globulin Ratio 0.4 (1.0-2.7) L Random Vancomycin Level 21.0 ug/mL Arterial Blood pH 7.228 (7.350-7.450) Arterial Blood Partial Pressure CO2 81.9 mmHg (35.0-45.0) *H Arterial Blood Partial Pressure O2 50.3 mmHg (75.0-100.0) L Arterial Blood HCO3 33.4 mmol/L (22.0-26.0) H Arterial Blood Oxygen Saturation 81.2 % (95-100) *L Arterial Blood Base Excess 4.6 (-2-2) H Melecio Test Positive Objective HEAD AND NECK: Orally intubated No JVD LUNGS: Decreased breath sounds. Coarse rhonchi. CARDIOVASCULAR: Tachycardic S1 and S2 with no gallop. ABDOMEN: Soft. EXTREMITIES: 1 plus pitting edema. RFV [place] in place Raul Appiah MD December 28, 2019 12:56
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
--- NOTE | 2019-12-28 14:50 | NUR ---
NURSE NOTES: HD ongoing, BP stable, ST on the monitor. Tolerating vent settings with O2 saturation 96%/ RT at bedside for suctioning and oral care. Cooling blanket off at this time, temp noted 97.5 rectally. Will continue to monitor.
--- NOTE | 2019-12-28 16:35 | Infectious Diseases Prog Note ---
Assessment/Plan Assessment/Plan ASSESSMENT AND PLAN: 1. covid-19 virus infection with pna, rule out bacterial pna, sepsis/shock, fevers, leukocytosis vent, respiratory failure, ? operation specialist bacteremia vs contaminant, fio2-80%, on pressors leukocytosis worse, persistent fevers, fungemia risk, diarrhea, c.diff. negative - meropenem, vancomycin and micafungin - s/p hydroxychloroquine - monitor chest x-ray and labs - surveillance cultures ordered - s/p tocilizumab - condition critical - getting HD 2. Hypertension. 3. No known allergies. 4. Social history negative. 5. Family history noncontributory. 6. MAR was noted. 7. Case discussed with RN. 8. Continue treatment per primary consultants. Subjective Constitutional: Reports: fever, other - on vent HEENT: Reports: congestion Respiratory: Reports: shortness of breath Cardiovascular: Reports: other - + pressors Gastrointestinal/Abdominal: Reports: diarrhea, other - + rectal tube; Denies: nausea, vomiting Genitourinary: Reports: other - + barnes Psychiatric: Reports: other - NA Skin: Denies: rash Hematologic: Denies: bleeding Musculoskeletal: Reports: other - NA Allergies: Coded Allergies: No Known Allergies (Unverified , 11/29/19) Objective Vital Signs Last 24 Hour Vital Signs Date Time Temp Pulse Resp B/P (MAP) Pulse Ox O2 Delivery O2 Flow Rate FiO2 12/28/19 15:00 26 109/72 Mechanical Ventilator 80 12/28/19 15:00 117/47 12/28/19 15:00 113 22 117/47 (70) 93 12/28/19 14:41 115 25 80 12/28/19 14:30 114 21 125/45 (71) 95 12/28/19 14:15 113 21 128/47 (74) 95 12/28/19 14:00 21 131/42 Mechanical Ventilator 80 12/28/19 14:00 131/42 12/28/19 14:00 111 21 131/42 (71) 96 12/28/19 13:30 112 18 131/50 (77) 96 12/28/19 13:00 22 120/55 Mechanical Ventilator 80 12/28/19 13:00 120/55 12/28/19 13:00 120 22 120/55 (76) 96 12/28/19 12:30 113/55 5/16/20 12:30 120 24 111/55 (73) 96 12/28/19 12:15 99.2 120 21 113/55 (74) 95 12/28/19 12:00 118 12/28/19 12:00 21 113/55 Mechanical Ventilator 80 12/28/19 12:00 113/55 12/28/19 12:00 80 12/28/19 12:00 Mechanical Ventilator 12/28/19 12:00 121 24 112/53 (72) 94 12/28/19 11:30 120 23 116/50 (72) 93 12/28/19 11:05 113/52 12/28/19 11:00 122 19 113/52 (72) 93 12/28/19 11:00 19 113/52 Mechanical Ventilator 80 12/28/19 11:00 113/52 12/28/19 10:45 122 20 124/51 (75) 94 12/28/19 10:37 124 25 80 12/28/19 10:30 122 21 123/49 (73) 94 12/28/19 10:15 120 20 119/48 (71) 95 12/28/19 10:00 20 121/50 Mechanical Ventilator 80 12/28/19 10:00 121/50 12/28/19 10:00 118 20 121/50 (73) 95 12/28/19 09:45 119 20 121/50 (73) 96 12/28/19 09:30 119 20 127/53 (77) 97 12/28/19 09:15 118 20 121/55 (77) 98 12/28/19 09:00 21 122/50 Mechanical Ventilator 80 12/28/19 09:00 122/50 12/28/19 09:00 120 21 122/50 (74) 99 12/28/19 08:45 119 20 125/53 (77) 99 12/28/19 08:30 125 20 114/50 (71) 96 12/28/19 08:00 Mechanical Ventilator 12/28/19 08:00 22 125/55 Mechanical Ventilator 80 12/28/19 08:00 125/55 12/28/19 08:00 100.0 121 22 125/55 (78) 97 12/28/19 08:00 120 12/28/19 08:00 80 12/28/19 07:30 128 34 106/48 (67) 85 12/28/19 07:12 128 33 80 12/28/19 07:00 32 91/47 Mechanical Ventilator 80 12/28/19 07:00 91/49 12/28/19 07:00 126 36 91/47 (62) 87 12/28/19 06:30 130 27 90/43 (59) 91 12/28/19 06:17 39 112/49 Mechanical Ventilator 80 12/28/19 06:00 125 24 112/49 (70) 95 12/28/19 06:00 28 112/49 Mechanical Ventilator 80 12/28/19 06:00 112/49 12/28/19 05:30 120 31 111/47 (68) 94 12/28/19 05:00 116 32 118/53 (74) 95 12/28/19 05:00 32 118/53 Mechanical Ventilator 80 12/28/19 05:00 118/53 12/28/19 04:31 94/43 12/28/19 04:30 115 31 92/42 (59) 92 12/28/19 04:00 80 12/28/19 04:00 110 12/28/19 04:00 Mechanical Ventilator 12/28/19 04:00 30 128/59 Mechanical Ventilator 80 12/28/19 04:00 128/59 12/28/19 04:00 98.2 110 30 128/59 (82) 98 12/28/19 03:30 108 28 80 12/28/19 03:30 110 23 137/61 (86) 99 12/28/19 03:00 21 115/52 Mechanical Ventilator 80 12/28/19 03:00 115/52 12/28/19 03:00 116 21 115/52 (73) 87 12/28/19 02:30 110 29 124/56 (78) 100 12/28/19 02:25 100.5 12/28/19 02:00 117 30 128/60 (82) 99 12/28/19 02:00 29 128/60 Mechanical Ventilator 80 12/28/19 02:00 128/60 12/28/19 01:30 116 30 116/57 (76) 99 12/28/19 01:00 115 29 122/58 (79) 99 12/28/19 01:00 22 122/58 Mechanical Ventilator 80 12/28/19 01:00 122/58 12/28/19 00:30 118 30 110/61 (77) 99 12/28/19 00:00 100.3 119 23 103/49 (67) 100 12/28/19 00:00 80 12/28/19 00:00 Mechanical Ventilator 12/28/19 00:00 23 103/49 Mechanical Ventilator 80 12/28/19 00:00 103/49 12/27/19 23:30 120 28 110/50 (70) 100 12/27/19 23:10 121 30 80 12/27/19 23:00 28 108/50 Mechanical Ventilator 80 12/27/19 23:00 108/50 12/27/19 23:00 122 29 108/50 (69) 100 12/27/19 22:30 122 29 108/53 (71) 100 12/27/19 22:00 23 109/46 Mechanical Ventilator 80 12/27/19 22:00 109/46 12/27/19 22:00 125 27 109/46 (67) 100 12/27/19 21:30 100.2 127 29 108/54 (72) 99 12/27/19 21:00 128 29 112/49 (70) 99 12/27/19 21:00 23 112/53 Mechanical Ventilator 80 12/27/19 21:00 112/53 12/27/19 20:30 130 30 108/51 (70) 99 12/27/19 20:00 131 12/27/19 20:00 Mechanical Ventilator 12/27/19 20:00 20 97/48 Mechanical Ventilator 80 12/27/19 20:00 97/48 12/27/19 20:00 80 12/27/19 20:00 102.5 131 30 97/48 (64) 97 12/27/19 19:47 75/56 12/27/19 19:30 135 28 75/41 (52) 98 12/27/19 19:20 129 26 80 12/27/19 19:00 135 27 95/42 (59) 98 12/27/19 19:00 18 95/42 Mechanical Ventilator 80 12/27/19 19:00 95/42 12/27/19 18:30 134 27 93/46 (62) 98 12/27/19 18:00 135 29 96/49 (65) 98 12/27/19 18:00 28 91/44 Mechanical Ventilator 80 12/27/19 18:00 91/44 12/27/19 17:30 135 30 100/55 (70) 97 12/27/19 17:00 133 30 101/53 (69) 98 12/27/19 17:00 30 94/54 Mechanical Ventilator 80 12/27/19 17:00 94/54 12/27/19 16:30 130 29 111/53 (72) 98 Height (Feet): 5 Height (Inches): 6.00 Weight (Pounds): 153 General Appearance: other - lehtargic, on vent, on pressors, getting HD HEENT: normocephalic, atraumatic, anicteric, no JVD Respiratory/Chest: crackles/rales, rhonchi - bilaterally Cardiovascular: normal rate, regular rhythm, no gallop/murmur Abdomen: normal bowel sounds, soft, non tender, no organomegaly, non distended Genitourinary: other - + barnes - urine slt cloudy Extremities: no cyanosis Skin: no rash 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 COMPARISON: Chest x-ray dated 11/29/19 FINDINGS: Lungs: Persistent diffuse peripheral groundglass opacities, not significantly changed, concerning for pneumonia. Pleural space: Unremarkable. The costophrenic angles are sharp. No visible pneumothorax. Heart: Unremarkable. No cardiomegaly. Mediastinum: Unremarkable. Bones/joints: Mild degenerative changes throughout the visualized spine. Tubes, lines and devices: Telemetry leads overlie the thorax. IMPRESSION: No significant change compared to the prior chest x-ray. Persistent diffuse peripheral groundglass opacities, concerning for pneumonia. Chest x-ray - 12/07/19 - COMPARISON: Chest x-ray 12/06/19 1317 FINDINGS: Lungs: Diffuse bilateral airspace opacities, improved in the left lung and slightly worsened in the right lung. Pleural space: Unremarkable. No pneumothorax. Heart: Mild cardiomegaly. Mediastinum: Unremarkable. Bones/joints: Mild degenerative changes of spine. Tubes, lines and devices: Endotracheal tube and NG tube are stable. IMPRESSION: Diffuse bilateral airspace opacities, improved in the left lung and slightly worsened in the right lung. Chest x-ray - 12/10/19 - Procedure: XRAY Chest 1v Indication: Shortness of breath Technique: One view of the chest Comparison: 12/07/2019 Findings: There is worsening airspace opacity in the bilateral mid and lower lungs. The left hemidiaphragm is obscured, could indicate some pleural fluid. Stable satisfactory positions of endotracheal and nasogastric tubes. Impression: Worsening infiltrates, likely pneumonia, bilaterally Chest x-ray - 12/16/19 - Procedure: XRAY Chest 1v Indication: Shortness of breath Technique: One view of the chest Comparison: 12/15/2019 Findings: Diffuse and extensive bilateral hazy infiltrates are unchanged. Stable position of endotracheal and nasogastric tubes. Normal heart size. Findings are unchanged Impression: Unchanged, over one day, findings as above. Chest x-ray - 12/21/19 - IMPRESSION: 1. Endotracheal tube terminates in the region of the mid thoracic trachea. Enteric tube courses past the diaphragm and out of the field-of- view. 2. Similar extensive patchy opacities throughout the lungs. Chest x-ray - 12/28/19 - IMPRESSION: 1. Endotracheal tube terminates in the region of the upper thoracic trachea. Enteric tube courses past the diaphragm and out of the field-of- view. 2. Diffuse opacities and consolidation throughout the lungs, similar in the left lung and increased in the right lung. Possible small right pleural effusion. Microbiology Date/Time Source Procedure Growth Status 12/22/19 16:15 Blood Blood Culture - Final NO GROWTH AFTER 5 DAYS Complete 12/16/19 16:00 Sputum Gram Stain - Final Complete 12/16/19 16:00 Sputum Sputum Culture - Final NORMAL UPPER RESPIRATORY ALISIA PRESENT Complete 12/23/19 04:00 Stool Clostridium difficile Toxin Assay - Final Complete 12/23/19 04:00 Indwelling Cath Urine Culture - Final NO GROWTH AFTER 48 HOURS Complete Laboratory Tests Test 12/28/19 03:45 12/28/19 06:50 12/28/19 07:37 White Blood Count 37.5 K/UL (4.8-10.8) *H Red Blood Count 2.49 M/UL (4.70-6.10) L Hemoglobin 7.5 G/DL (14.2-18.0) L Hematocrit 23.8 % (42.0-52.0) L Mean Corpuscular Volume 96 FL (80-99) Mean Corpuscular Hemoglobin 30.0 PG (27.0-31.0) Mean Corpuscular Hemoglobin Concent 31.4 G/DL (32.0-36.0) L Red Cell Distribution Width 16.6 % (11.6-14.8) H Platelet Count 270 K/UL (150-450) Mean Platelet Volume 7.2 FL (6.5-10.1) Neutrophils (%) (Auto) % (45.0-75.0) Lymphocytes (%) (Auto) % (20.0-45.0) Monocytes (%) (Auto) % (1.0-10.0) Eosinophils (%) (Auto) % (0.0-3.0) Basophils (%) (Auto) % (0.0-2.0) Differential Total Cells Counted 100 Neutrophils % (Manual) 88 % (45-75) H Lymphocytes % (Manual) 3 % (20-45) L Monocytes % (Manual) 2 % (1-10) Eosinophils % (Manual) 0 % (0-3) Basophils % (Manual) 0 % (0-2) Band Neutrophils 7 % (0-8) Platelet Estimate Adequate Platelet Morphology Normal Polychromasia 1+ Hypochromasia 1+ Anisocytosis 1+ Activated Partial Thromboplast Time > 150 SEC (23-33) *H 76 SEC (23-33) H Sodium Level 129 MMOL/L (136-145) L Potassium Level 3.2 MMOL/L (3.5-5.1) L Chloride Level 86 MMOL/L (98-107) L Carbon Dioxide Level 30 MMOL/L (21-32) Anion Gap 14 mmol/L (5-15) Blood Urea Nitrogen 33 mg/dL (7-18) H Creatinine 3.0 MG/DL (0.55-1.30) H Estimat Glomerular Filtration Rate 21.6 mL/min (>60) Glucose Level 516 MG/DL (74-106) #*H Calcium Level 7.9 MG/DL (8.5-10.1) L Total Bilirubin 0.6 MG/DL (0.2-1.0) Aspartate Amino Transf (AST/SGOT) 29 U/L (15-37) Alanine Aminotransferase (ALT/SGPT) 35 U/L (12-78) Alkaline Phosphatase 217 U/L (46-116) H Total Protein 6.8 G/DL (6.4-8.2) Albumin 1.8 G/DL (3.4-5.0) L Globulin 5.0 g/dL Albumin/Globulin Ratio 0.4 (1.0-2.7) L Random Vancomycin Level 21.0 ug/mL Arterial Blood pH 7.228 (7.350-7.450) Arterial Blood Partial Pressure CO2 81.9 mmHg (35.0-45.0) *H Arterial Blood Partial Pressure O2 50.3 mmHg (75.0-100.0) L Arterial Blood HCO3 33.4 mmol/L (22.0-26.0) H Arterial Blood Oxygen Saturation 81.2 % (95-100) *L Arterial Blood Base Excess 4.6 (-2-2) H Melecio Test Positive Current Medications Medications (Trade) Dose Ordered Sig/Vicki Route PRN Reason Start Time Stop Time Status Last Admin Dose Admin Acetaminophen (Tylenol) 650 mg Q4H PRN NG Temp >100.5 12/06/19 14:15 01/05/20 14:14 12/28/19 01:40 Acetaminophen (Tylenol) 650 mg Q4H PRN RECTAL Mild Pain (Pain Scale 1-3) 12/04/19 11:45 01/03/20 11:44 12/06/19 19:17 Chlorhexidine Gluconate (Arely-Hex 2%) 1 applic DAILY@2000 TOPIC 12/05/19 20:00 03/04/20 19:59 12/27/19 19:48 Dextrose (Dextrose 50%) 25 ml Q30M PRN IV Hypoglycemia 11/29/19 14:15 02/27/20 14:14 Dextrose (Dextrose 50%) 50 ml Q30M PRN IV Hypoglycemia 11/29/19 14:15 02/27/20 14:14 Fentanyl Citrate 250 ml @ 0 mls/hr Q24H IV 12/27/19 11:00 03/26/20 10:59 12/28/19 06:17 Folic Acid (Folate) 1 mg DAILY NG 12/18/19 09:00 01/17/20 08:59 12/28/19 08:17 Heparin Sodium/ Dextrose 500 ml @ 40.38 mls/ hr ADJUST PER PROTOCOL IV 12/27/19 05:00 01/25/20 21:14 12/28/19 11:06 Hydralazine HCl (Apresoline) 10 mg Q4H PRN IV For High Blood Pressure 11/29/19 15:15 02/27/20 15:14 Loperamide HCl (Imodium) 2 mg Q6H PRN NG Diarrhea 12/12/19 12:45 01/11/20 12:44 Meropenem 500 mg/ Sodium Chloride 50 ml @ 100 mls/hr Q24H IVPB 12/28/19 21:00 01/02/20 20:59 Micafungin Sodium 100 mg/Sodium Chloride 100 ml @ 100 mls/hr Q24H IVPB 12/24/19 22:00 12/31/19 21:59 12/27/19 22:20 Midazolam HCl 100 ml @ 0 mls/hr Q24H PRN IV Restlessness 12/24/19 16:30 12/31/19 16:29 12/25/19 16:31 Midodrine (Pro-Amatine) 10 mg THREE TIMES A DAY NG 12/27/19 13:00 03/11/20 12:59 12/28/19 13:06 Norepinephrine Bitartrate 8 mg/ Dextrose 250 ml @ 0 mls/hr Q24H IV 12/18/19 09:00 01/17/20 08:59 12/28/19 11:05 Ondansetron HCl (Zofran) 4 mg Q6H PRN IVP Nausea & Vomiting 11/29/19 14:15 12/29/19 14:14 Pantoprazole (Protonix) 40 mg DAILY IVP 11/30/19 12:15 12/30/19 12:14 12/28/19 08:17 Sevelamer Carbonate (Renvela) 800 mg THREE TIMES A DAY NG 12/22/19 13:00 03/21/20 12:59 12/28/19 13:06 Vancomycin HCl (Vanco rx to dose) 1 ea DAILY PRN MISC Per rx protocol 12/08/19 19:30 01/07/20 19:29 Vitamin B Complex/ Vit C/Folic Acid (Nephrovite) 1 tab DAILY NG 12/16/19 09:00 01/15/20 08:59 12/28/19 08:16 Ilsa Rodriguez MD December 28, 2019 16:35
--- NOTE | 2019-12-28 17:04 | NUR ---
NURSE NOTES: HD completed with reported output 1.5L. BP 97/31; ST on the monitor. Levophed infusing at 24mcg/min. Fentanyl infusing at 130mcg/hr. O2 saturation 91% at this time. Attempted to suction via ETT, no sputum noted. Will continue to monitor patient.
--- NOTE | 2019-12-28 17:58 | NUR ---
NURSE NOTES: Scheduled medications given to patient. Patient was turned and repositioned. Tolerating vent settings at this time, O2 saturation 97%. Left NGT intact and patent, Nepro infusing at 35ml/hr; HOB elevated. Left AC intact, patent, Fentanyl infusing at 130mcg/hr. Left forearm intact, patent, infusing Heparin drip at 30units/kg. Right femoral Bismark catheter with pigtail intact, Levophed infusing at 24mcg/min. Patient is afebrile at this time, cooling blanket remains on, rectal temp 98.8. Will continue to monitor.
--- NOTE | 2019-12-28 18:05 | NUR ---
NURSE NOTES: Blood culture and urine collected, sent down to lab.
--- NOTE | 2019-12-28 19:18 | NUR ---
HAND-OFF: Report given to DARYA Shaw. Endorsed plan of care.
--- NOTE | 2019-12-28 20:00 | NUR ---
NURSE NOTES: Received pt obtunded , orally intubated on ac mode, sedated with Fentanyl drip at 130 mcg/hr, Bp been supported with Levophed drip at 24mcg/min, current bp 87/52 ST 133/min on the monitor, afebrile. Pt is an HD pt with Bismark cath RT femoral side with pigtail where all Ivs infusing well. site with drsg dry and intact, Joe to gravity with very miimum amt of urine. Need to send urine for CX, Tolerated Nepro fdg at 35ml/hr. HOB kept elevated. on aspiration precaution. Pt with rectal tube to gravity with moderate amt of dark greenish stool. Monitir I and o. Monitor lytes Heparin drip at 30u/kg/min been infusing well per left FA g20, site patent. For PTT in am. Will continue to monitor.
--- NOTE | 2019-12-28 20:00 | NUR ---
RESPIRATORY NOTE: Received pt on AC 20, 500VT, 80%, PEEP +3. Pt intubated w/ ETT 8.0 @ 24cm lipline, secured by anchorfast. Pt sedated. B/S louise. rhonchi, sxn small-moderate amounts of thick/thin, doss-brown secretions w/ occasional blood clots. Vent plugged into red outlet, ambubag at bedside. Pt in no apparent distress at this time. Will continue to monitor pt.
--- NOTE | 2019-12-28 20:38 | General Progress Note ---
Assessment/Plan Assessment/Plan: 9-year-old male with PMH of HTN presents with acute respiratory distress. Pt w/ known COVID exposure by his son who was living with him at the time. On admission pt presented with 60% room air, was started on BiPAP, CXR revealed b/ l peripheral infiltrates consistent w/COVID, developed sepsis and was intubated on 12/03 and transferred to ICU. Pt is COVID positive. NEURO #Acute severe toxic metabolic encephalopathy, multifactorial, 2/2 hypoxia, hepatic dysfunction, renal dysfunction, sepsis -per nurse, pt unresponsive and tachypneic off sedation -unable to obtain CT head 2/2 COVID -Neuro exam per neurology on 12/25 w/minimal eye movements, breaths over vent, no signs of cerebral cortical function -s/p EEG on 12/26, pending final read by Dr. Wilder -Neurology, Dr. Wilder, following, recs appreciated. Signed off RESP/ID #Acute Hypoxic Respiratory Failure 2/2 COVID +, HCAP +--> WBC peak on 12/21, now downtrending #Septic Shock #PTX/Pneumomediastinum--> to high risk for intervention #diarrhea #Tachypnea likely 2/2 PE #respiratory acidosis -s/p Intubation 12/03 -Appreciate Pulm/--> Vent Management -Fentanyl for Sedation 2/2 elevated TG -Pressor support, maintain MAP > 65 -ABG per pulm -Vent management per pulmonology. Appreciate recommendations -Patient is s/p IL-6 inhibitor and Plaquenil -s/p Vanc (12/09-12/15), cefepime (12/09-12/15), flagyl (12/09-12/15) -Trend predictive markers Q3 days per Critical care team; CRP, Pro-Calcitonin, Ferritin, Ddimer -Surgery to monitor PTX -ID: meropenem, vancomycin, micafungin - ABX per ID -cont heparin ggt for presumed PE given tachypnea, monitor for signs of bleeding. NEPHRO #ARF now on HD #hyponatremia, suspect hypervolemic -12/04: Right femoral HD cath placed -very poor UO, pt requiring daily HD -Continue HD per Nephro GI #Shock Liver - resolved -Liver enzymes also likely elevated 2/2 COVID + state -Appreciate GI recs CV #Tachycardia -s/p AFib now converted to sinus, no further episodes of afib -echo pending COVID -Appreciate Cardio management DVT/GI ppx, Tube Feeding, FULL CODE At the time of my involvement, the patient's condition was critical with high potential for and/or physiologic deterioration secondary to acute respiratory failureas delineated in the note above. On the above date of service, I spent a total [id number], managing , and providing critical care services to this patient, including time spent documenting these activities, counseling patient/family, and coordinating care. Critical care services performed include: Telemetry Review Hemodynamic measurement interpretation Laboratory data review and interpretation Ventilatorsetting review, management, Discussion of care plans with patient, family, and/or surrogate decision makers Discussion of patient's care with primary medical team, surgical team, and/or consulting service Decision to obtain further radiologic evaluation, after consideration of risk/ benefit ratio Review of most recent microbiology results with assessment and modification of antimicrobial coverage Discussion of patient's code status and further advancement towards the ultimate goals of care Plan outlined above discussed with patient/family, RN, ICU team, and involved physicians/consultants. Time of note may not reflect time of encounter. Subjective Date patient seen: December 28, 2019 ROS Limited/Unobtainable: Yes Allergies: Coded Allergies: No Known Allergies (Unverified , 11/29/19) Subjective Chart reviewed. Long complicated hospital course. COVID positive. On vent for weeks. GOC discussion ongoing with family. Patient still on high vent settings. Acidotic. Febrile to 102.5 but now afebrile. Continuing broad spectrum abx. Poor prognosis Objective Last 24 Hour Vital Signs Date Time Temp Pulse Resp B/P (MAP) Pulse Ox O2 Delivery O2 Flow Rate FiO2 12/28/19 19:57 113 25 80 12/28/19 19:00 23 125/59 Mechanical Ventilator 80 12/28/19 19:00 125/59 12/28/19 19:00 114 23 125/59 (81) 99 12/28/19 18:30 115 20 131/56 (81) 99 12/28/19 18:00 118 25 122/60 (80) 99 12/28/19 18:00 25 122/60 Mechanical Ventilator 80 12/28/19 18:00 122/60 12/28/19 17:45 122 26 114/49 (70) 98 12/28/19 17:30 98.8 123 21 116/46 (69) 97 12/28/19 17:04 97/31 12/28/19 17:00 124 25 97/31 (53) 86 12/28/19 17:00 25 97/31 Mechanical Ventilator 80 12/28/19 16:33 123 20 98/32 (54) 88 12/28/19 16:30 122 22 97/33 (54) 87 12/28/19 16:27 120 22 91/35 (53) 82 12/28/19 16:25 120 23 86/38 (54) 84 12/28/19 16:15 119 23 103/38 (59) 87 12/28/19 16:00 80 12/28/19 16:00 97.7 119 21 105/41 (62) 90 12/28/19 16:00 21 105/41 Mechanical Ventilator 80 12/28/19 16:00 105/41 12/28/19 16:00 113 12/28/19 16:00 Mechanical Ventilator 12/28/19 15:45 117 21 114/43 (66) 91 12/28/19 15:30 115 20 115/41 (65) 93 12/28/19 15:00 26 109/72 Mechanical Ventilator 80 12/28/19 15:00 117/47 12/28/19 15:00 113 22 117/47 (70) 93 12/28/19 14:41 115 25 80 12/28/19 14:30 114 21 125/45 (71) 95 12/28/19 14:15 113 21 128/47 (74) 95 12/28/19 14:00 21 131/42 Mechanical Ventilator 80 12/28/19 14:00 131/42 12/28/19 14:00 111 21 131/42 (71) 96 12/28/19 13:30 112 18 131/50 (77) 96 12/28/19 13:00 22 120/55 Mechanical Ventilator 80 12/28/19 13:00 120/55 12/28/19 13:00 120 22 120/55 (76) 96 12/28/19 12:30 113/55 12/28/19 12:30 120 24 111/55 (73) 96 12/28/19 12:15 99.2 120 21 113/55 (74) 95 12/28/19 12:00 118 5/16/20 12:00 21 113/55 Mechanical Ventilator 80 12/28/19 12:00 113/55 12/28/19 12:00 80 12/28/19 12:00 Mechanical Ventilator 12/28/19 12:00 121 24 112/53 (72) 94 12/28/19 11:30 120 23 116/50 (72) 93 12/28/19 11:05 113/52 12/28/19 11:00 122 19 113/52 (72) 93 12/28/19 11:00 19 113/52 Mechanical Ventilator 80 12/28/19 11:00 113/52 12/28/19 10:45 122 20 124/51 (75) 94 12/28/19 10:37 124 25 80 12/28/19 10:30 122 21 123/49 (73) 94 12/28/19 10:15 120 20 119/48 (71) 95 12/28/19 10:00 20 121/50 Mechanical Ventilator 80 12/28/19 10:00 121/50 12/28/19 10:00 118 20 121/50 (73) 95 12/28/19 09:45 119 20 121/50 (73) 96 12/28/19 09:30 119 20 127/53 (77) 97 12/28/19 09:15 118 20 121/55 (77) 98 12/28/19 09:00 21 122/50 Mechanical Ventilator 80 12/28/19 09:00 122/50 12/28/19 09:00 120 21 122/50 (74) 99 12/28/19 08:45 119 20 125/53 (77) 99 12/28/19 08:30 125 20 114/50 (71) 96 12/28/19 08:00 Mechanical Ventilator 12/28/19 08:00 22 125/55 Mechanical Ventilator 80 12/28/19 08:00 125/55 12/28/19 08:00 100.0 121 22 125/55 (78) 97 12/28/19 08:00 120 12/28/19 08:00 80 12/28/19 07:30 128 34 106/48 (67) 85 12/28/19 07:12 128 33 80 12/28/19 07:00 32 91/47 Mechanical Ventilator 80 12/28/19 07:00 91/49 12/28/19 07:00 126 36 91/47 (62) 87 12/28/19 06:30 130 27 90/43 (59) 91 12/28/19 06:17 39 112/49 Mechanical Ventilator 80 12/28/19 06:00 125 24 112/49 (70) 95 12/28/19 06:00 28 112/49 Mechanical Ventilator 80 12/28/19 06:00 112/49 12/28/19 05:30 120 31 111/47 (68) 94 12/28/19 05:00 116 32 118/53 (74) 95 12/28/19 05:00 32 118/53 Mechanical Ventilator 80 12/28/19 05:00 118/53 12/28/19 04:31 94/43 12/28/19 04:30 115 31 92/42 (59) 92 12/28/19 04:00 80 12/28/19 04:00 110 12/28/19 04:00 Mechanical Ventilator 12/28/19 04:00 30 128/59 Mechanical Ventilator 80 12/28/19 04:00 128/59 12/28/19 04:00 98.2 110 30 128/59 (82) 98 12/28/19 03:30 108 28 80 12/28/19 03:30 110 23 137/61 (86) 99 12/28/19 03:00 21 115/52 Mechanical Ventilator 80 12/28/19 03:00 115/52 12/28/19 03:00 116 21 115/52 (73) 87 12/28/19 02:30 110 29 124/56 (78) 100 12/28/19 02:25 100.5 12/28/19 02:00 117 30 128/60 (82) 99 12/28/19 02:00 29 128/60 Mechanical Ventilator 80 12/28/19 02:00 128/60 12/28/19 01:30 116 30 116/57 (76) 99 12/28/19 01:00 115 29 122/58 (79) 99 12/28/19 01:00 22 122/58 Mechanical Ventilator 80 12/28/19 01:00 122/58 12/28/19 00:30 118 30 110/61 (77) 99 12/28/19 00:00 100.3 119 23 103/49 (67) 100 12/28/19 00:00 80 12/28/19 00:00 Mechanical Ventilator 12/28/19 00:00 23 103/49 Mechanical Ventilator 80 12/28/19 00:00 103/49 12/27/19 23:30 120 28 110/50 (70) 100 12/27/19 23:10 121 30 80 12/27/19 23:00 28 108/50 Mechanical Ventilator 80 12/27/19 23:00 108/50 12/27/19 23:00 122 29 108/50 (69) 100 12/27/19 22:30 122 29 108/53 (71) 100 12/27/19 22:00 23 109/46 Mechanical Ventilator 80 12/27/19 22:00 109/46 12/27/19 22:00 125 27 109/46 (67) 100 12/27/19 21:30 100.2 127 29 108/54 (72) 99 12/27/19 21:00 128 29 112/49 (70) 99 12/27/19 21:00 23 112/53 Mechanical Ventilator 80 12/27/19 21:00 112/53 Intake and Output 12/27/19 12/28/19 19:00 07:00 Intake Total 1401.56 ml 1638.44 ml Output Total 1045 ml 0 ml Balance 356.56 ml 1638.44 ml Free Water 130 ml IV Total 851.56 ml 1218.44 ml Tube Feeding 420 ml 420 ml Output Urine Total 5 ml 0 ml Stool Total 40 ml Hemodialysis UF 1000 ml Laboratory Tests 12/28/19 03:45: White Blood Count 37.5*H, Red Blood Count 2.49L, Hemoglobin 7.5L, Hematocrit 23.8L, Mean Corpuscular Volume 96, Mean Corpuscular Hemoglobin 30.0, Mean Corpuscular Hemoglobin Concent 31.4L, Red Cell Distribution Width 16.6H, Platelet Count 270, Mean Platelet Volume 7.2, Neutrophils (%) (Auto) , Lymphocytes (%) (Auto) , Monocytes (%) (Auto) , Eosinophils (%) (Auto) , Basophils (%) (Auto) , Differential Total Cells Counted 100, Neutrophils % ( Manual) 88H, Lymphocytes % (Manual) 3L, Monocytes % (Manual) 2, Eosinophils % ( Manual) 0, Basophils % (Manual) 0, Band Neutrophils 7, Platelet Estimate Adequate, Platelet Morphology Normal, Polychromasia 1+, Hypochromasia 1+, Anisocytosis 1+, Activated Partial Thromboplast Time > 150*H, Sodium Level 129L , Potassium Level 3.2L, Chloride Level 86L, Carbon Dioxide Level 30, Anion Gap 14, Blood Urea Nitrogen 33H, Creatinine 3.0H, Estimat Glomerular Filtration Rate 21.6, Glucose Level 516#*H, Calcium Level 7.9L, Total Bilirubin 0.6, Aspartate Amino Transf (AST/SGOT) 29, Alanine Aminotransferase (ALT/SGPT) 35, Alkaline Phosphatase 217H, Total Protein 6.8, Albumin 1.8L, Globulin 5.0, Albumin/Globulin Ratio 0.4L, Random Vancomycin Level 21.0 12/28/19 06:50: Activated Partial Thromboplast Time 76H 12/28/19 07:37: Arterial Blood pH 7.228*L, Arterial Blood Partial Pressure CO2 81.9*H, Arterial Blood Partial Pressure O2 50.3L, Arterial Blood HCO3 33.4H, Arterial Blood Oxygen Saturation 81.2*L, Arterial Blood Base Excess 4.6H, Melecio Test Positive Height (Feet): 5 Height (Inches): 6.00 Weight (Pounds): 153 General Appearance: other - intubated on sedation EENT: PERRL/EOMI, normal ENT inspection, other - ETT in place Neck: non-tender, normal alignment, other - per nursing Cardiovascular: normal peripheral pulses - per nursing, normal rate, regular rhythm Respiratory/Chest: chest wall non-tender, other Abdomen: normal bowel sounds, non tender, soft - per nursing Edema: other - NO LE edema per nursing Neurologic: brake engineer II-XII grossly normal, other - on sedation Skin: normal pigmentation, warm/dry, other - per nursing Richard Mckinney D.O. December 28, 2019 20:38
[2019-12-28] MEDS: Dyna-Hex 2% Top Sol 2oz TOPIC SCH (20:44)
--- NOTE | 2019-12-28 21:07 | Nephrology Progress Note ---
Assessment/Plan Plan #ALBARO- concerns for developing ischemic ATN in the setting of sepsis- r/o vanco toxicity - r/o COVID nephropathy - now with likely ATN #Hyperkalemia due to renal insuffiency - exacerbated by acidosis #COID sepsis #COVID pneumonia #hypoxemic respiratary failure #HTN- now in shock #mediastinal PTX - next HD today - fio2 up to 100 - concerns for PE - started on heparin drip for PE - neuro eval for - lack of response off sedation - midodorine 10mg q8hr - add sevelamer 800mg TID - monitor I&Os - daily weights - monitor lytes closely -add nephrovite - GOALS of care discussion - continue pressor support to maintain MAP > 65- continue levo - continue fentanyl dip - abx per ID- on vanco and meropenem - vent management per pulm -Abd Xray shows mediastinal PTX - too high risk for thorocotomy Subjective ROS Limited/Unobtainable: Yes Subjective plan for gain HD today again fio2 80 today concerns for PE started on heparin drip for PE not responsive off sedation neurology consulted remains oliguric on levo Abd Xray shows mediastinal PTX Objective Objective Last 24 Hour Vital Signs Date Time Temp Pulse Resp B/P (MAP) Pulse Ox O2 Delivery O2 Flow Rate FiO2 12/28/19 19:57 113 25 80 12/28/19 19:00 23 125/59 Mechanical Ventilator 80 12/28/19 19:00 125/59 12/28/19 19:00 114 23 125/59 (81) 99 12/28/19 18:30 115 20 131/56 (81) 99 12/28/19 18:00 118 25 122/60 (80) 99 12/28/19 18:00 25 122/60 Mechanical Ventilator 80 12/28/19 18:00 122/60 12/28/19 17:45 122 26 114/49 (70) 98 12/28/19 17:30 98.8 123 21 116/46 (69) 97 12/28/19 17:04 97/31 12/28/19 17:00 124 25 97/31 (53) 86 12/28/19 17:00 25 97/31 Mechanical Ventilator 80 12/28/19 16:33 123 20 98/32 (54) 88 12/28/19 16:30 122 22 97/33 (54) 87 12/28/19 16:27 120 22 91/35 (53) 82 12/28/19 16:25 120 23 86/38 (54) 84 12/28/19 16:15 119 23 103/38 (59) 87 12/28/19 16:00 80 12/28/19 16:00 97.7 119 21 105/41 (62) 90 12/28/19 16:00 21 105/41 Mechanical Ventilator 80 12/28/19 16:00 105/41 12/28/19 16:00 113 12/28/19 16:00 Mechanical Ventilator 12/28/19 15:45 117 21 114/43 (66) 91 12/28/19 15:30 115 20 115/41 (65) 93 12/28/19 15:00 26 109/72 Mechanical Ventilator 80 12/28/19 15:00 117/47 12/28/19 15:00 113 22 117/47 (70) 93 12/28/19 14:41 115 25 80 12/28/19 14:30 114 21 125/45 (71) 95 12/28/19 14:15 113 21 128/47 (74) 95 12/28/19 14:00 21 131/42 Mechanical Ventilator 80 12/28/19 14:00 131/42 12/28/19 14:00 111 21 131/42 (71) 96 12/28/19 13:30 112 18 131/50 (77) 96 12/28/19 13:00 22 120/55 Mechanical Ventilator 80 12/28/19 13:00 120/55 12/28/19 13:00 120 22 120/55 (76) 96 12/28/19 12:30 113/55 12/28/19 12:30 120 24 111/55 (73) 96 12/28/19 12:15 99.2 120 21 113/55 (74) 95 12/28/19 12:00 118 12/28/19 12:00 21 113/55 Mechanical Ventilator 80 12/28/19 12:00 113/55 12/28/19 12:00 80 12/28/19 12:00 Mechanical Ventilator 12/28/19 12:00 121 24 112/53 (72) 94 12/28/19 11:30 120 23 116/50 (72) 93 12/28/19 11:05 113/52 12/28/19 11:00 122 19 113/52 (72) 93 12/28/19 11:00 19 113/52 Mechanical Ventilator 80 12/28/19 11:00 113/52 12/28/19 10:45 122 20 124/51 (75) 94 12/28/19 10:37 124 25 80 12/28/19 10:30 122 21 123/49 (73) 94 12/28/19 10:15 120 20 119/48 (71) 95 12/28/19 10:00 20 121/50 Mechanical Ventilator 80 12/28/19 10:00 121/50 12/28/19 10:00 118 20 121/50 (73) 95 12/28/19 09:45 119 20 121/50 (73) 96 12/28/19 09:30 119 20 127/53 (77) 97 12/28/19 09:15 118 20 121/55 (77) 98 12/28/19 09:00 21 122/50 Mechanical Ventilator 80 12/28/19 09:00 122/50 12/28/19 09:00 120 21 122/50 (74) 99 12/28/19 08:45 119 20 125/53 (77) 99 12/28/19 08:30 125 20 114/50 (71) 96 12/28/19 08:00 Mechanical Ventilator 12/28/19 08:00 22 125/55 Mechanical Ventilator 80 12/28/19 08:00 125/55 12/28/19 08:00 100.0 121 22 125/55 (78) 97 12/28/19 08:00 120 12/28/19 08:00 80 12/28/19 07:30 128 34 106/48 (67) 85 12/28/19 07:12 128 33 80 12/28/19 07:00 32 91/47 Mechanical Ventilator 80 12/28/19 07:00 91/49 12/28/19 07:00 126 36 91/47 (62) 87 12/28/19 06:30 130 27 90/43 (59) 91 12/28/19 06:17 39 112/49 Mechanical Ventilator 80 12/28/19 06:00 125 24 112/49 (70) 95 12/28/19 06:00 28 112/49 Mechanical Ventilator 80 12/28/19 06:00 112/49 12/28/19 05:30 120 31 111/47 (68) 94 12/28/19 05:00 116 32 118/53 (74) 95 12/28/19 05:00 32 118/53 Mechanical Ventilator 80 12/28/19 05:00 118/53 12/28/19 04:31 94/43 12/28/19 04:30 115 31 92/42 (59) 92 12/28/19 04:00 80 12/28/19 04:00 110 12/28/19 04:00 Mechanical Ventilator 12/28/19 04:00 30 128/59 Mechanical Ventilator 80 12/28/19 04:00 128/59 12/28/19 04:00 98.2 110 30 128/59 (82) 98 12/28/19 03:30 108 28 80 12/28/19 03:30 110 23 137/61 (86) 99 12/28/19 03:00 21 115/52 Mechanical Ventilator 80 12/28/19 03:00 115/52 12/28/19 03:00 116 21 115/52 (73) 87 12/28/19 02:30 110 29 124/56 (78) 100 12/28/19 02:25 100.5 12/28/19 02:00 117 30 128/60 (82) 99 12/28/19 02:00 29 128/60 Mechanical Ventilator 80 12/28/19 02:00 128/60 12/28/19 01:30 116 30 116/57 (76) 99 12/28/19 01:00 115 29 122/58 (79) 99 12/28/19 01:00 22 122/58 Mechanical Ventilator 80 12/28/19 01:00 122/58 12/28/19 00:30 118 30 110/61 (77) 99 12/28/19 00:00 100.3 119 23 103/49 (67) 100 12/28/19 00:00 80 12/28/19 00:00 Mechanical Ventilator 12/28/19 00:00 23 103/49 Mechanical Ventilator 80 12/28/19 00:00 103/49 12/27/19 23:30 120 28 110/50 (70) 100 12/27/19 23:10 121 30 80 12/27/19 23:00 28 108/50 Mechanical Ventilator 80 12/27/19 23:00 108/50 12/27/19 23:00 122 29 108/50 (69) 100 12/27/19 22:30 122 29 108/53 (71) 100 12/27/19 22:00 23 109/46 Mechanical Ventilator 80 12/27/19 22:00 109/46 12/27/19 22:00 125 27 109/46 (67) 100 12/27/19 21:30 100.2 127 29 108/54 (72) 99 Intake and Output 12/27/19 12/28/19 19:00 07:00 Intake Total 1401.56 ml 1638.44 ml Output Total 1045 ml 0 ml Balance 356.56 ml 1638.44 ml Free Water 130 ml IV Total 851.56 ml 1218.44 ml Tube Feeding 420 ml 420 ml Output Urine Total 5 ml 0 ml Stool Total 40 ml Hemodialysis UF 1000 ml Laboratory Tests 12/28/19 03:45: White Blood Count 37.5*H, Red Blood Count 2.49L, Hemoglobin 7.5L, Hematocrit 23.8L, Mean Corpuscular Volume 96, Mean Corpuscular Hemoglobin 30.0, Mean Corpuscular Hemoglobin Concent 31.4L, Red Cell Distribution Width 16.6H, Platelet Count 270, Mean Platelet Volume 7.2, Neutrophils (%) (Auto) , Lymphocytes (%) (Auto) , Monocytes (%) (Auto) , Eosinophils (%) (Auto) , Basophils (%) (Auto) , Differential Total Cells Counted 100, Neutrophils % ( Manual) 88H, Lymphocytes % (Manual) 3L, Monocytes % (Manual) 2, Eosinophils % ( Manual) 0, Basophils % (Manual) 0, Band Neutrophils 7, Platelet Estimate Adequate, Platelet Morphology Normal, Polychromasia 1+, Hypochromasia 1+, Anisocytosis 1+, Activated Partial Thromboplast Time > 150*H, Sodium Level 129L , Potassium Level 3.2L, Chloride Level 86L, Carbon Dioxide Level 30, Anion Gap 14, Blood Urea Nitrogen 33H, Creatinine 3.0H, Estimat Glomerular Filtration Rate 21.6, Glucose Level 516#*H, Calcium Level 7.9L, Total Bilirubin 0.6, Aspartate Amino Transf (AST/SGOT) 29, Alanine Aminotransferase (ALT/SGPT) 35, Alkaline Phosphatase 217H, Total Protein 6.8, Albumin 1.8L, Globulin 5.0, Albumin/Globulin Ratio 0.4L, Random Vancomycin Level 21.0 12/28/19 06:50: Activated Partial Thromboplast Time 76H 12/28/19 07:37: Arterial Blood pH 7.228*L, Arterial Blood Partial Pressure CO2 81.9*H, Arterial Blood Partial Pressure O2 50.3L, Arterial Blood HCO3 33.4H, Arterial Blood Oxygen Saturation 81.2*L, Arterial Blood Base Excess 4.6H, Melecio Test Positive Height (Feet): 5 Height (Inches): 6.00 Weight (Pounds): 153 Objective General Appearance: other - intubated- proned Lines, tubes and drains: central line HEENT: normocephalic, atraumatic Respiratory/Chest: rhonchi - bilaterally Cardiovascular/Chest: other - tachycardic Extremities: pitting Dorian Soriano M.D. December 28, 2019 21:07
--- NOTE | 2019-12-28 22:00 | NUR ---
NURSE NOTES: Suctioned minimal amt of beige secretions,, oral care done.
[2019-12-29] VITALS (39 sets, daily range): BP systolic 63–128; BP diastolic 29–59
--- NOTE | 2019-12-29 | NUR ---
NURSE NOTES: accucheck 135mg/dl no coverage. pls see emar.
--- NOTE | 2019-12-29 01:00 | NUR ---
HAND-OFF: Report given to Sayda LACKEY for continuity of care.
[2019-12-29] MEDS: Acetaminophen 650mg/20.3ml NG PRN (01:08)
--- NOTE | 2019-12-29 01:08 | NUR ---
NURSE NOTES: Pt temp 101.4, cooling measures started,Tylenoll 650mg through NGT was given.
--- NOTE | 2019-12-29 01:15 | NUR ---
NURSE NOTES: Received report from Valeria LACKEY. patient in bed no s/s of acute distress noted. orally intubated ETT 8/24cm AC20, TV 500, Fi02 90% Peep of 3 satting HOB elevated. Right femoral TLC intact infusing Heparin drip at 30units/kg/hr, Levophed at 24mcg/min,and Fentanyl at 130mcg/hr Rass score -2. Tylenol given by previous nurse. Cooling blanket on. ST on monitoring engineer HR 134. Rectal tube and Joe intact anuric. no s/s of hypo/hyperglycemia. On P200 mattress for skin management. bilateral cheek PS. frequent visual checks continued. bed alarm on. bed locked and in low position. will continue plan of care.
--- NOTE | 2019-12-29 01:38 | NUR ---
NURSE NOTES: Tem 100.9f, cooling mesures continuous
--- NOTE | 2019-12-29 03:25 | NUR ---
NURSE NOTES: Patient Rectal temp 98.0. Frequent visual checks checks continued. comfort measure provided. no s/s of hypo/hyperglycemia. will continue plan of care.
[2019-12-29] MEDS: fentaNYL 2500mcg/NS 250ml IV SCH (04:18)
--- NOTE | 2019-12-29 05:15 | NUR ---
NURSE NOTES: patient desat to 86%, Titrated Fi02 to 100%. HOB elevated. comfort measure provided. frequent visual checks continued. Supervisor [employer] came to draw Timed PTT.
[2019-12-29 06:01] LABS: HEMATOCRIT 23.3 % (42.0-52.0); HEMOGLOBIN 7.3 G/DL (14.2-18.0); MEAN CORPUSCULAR VOLUME 95 FL (80-99); PLATELET COUNT 267 K/UL (150-450); RED BLOOD COUNT 2.45 M/UL (4.70-6.10); RED CELL DISTRIBUTION WIDTH 17.1 % (11.6-14.8)
[2019-12-29 06:21] LABS: WHITE BLOOD COUNT 35.1 K/UL (4.8-10.8)
[2019-12-29 06:30] LABS: PHOSPHORUS 4.4 MG/DL (2.5-4.9)
[2019-12-29 06:33] LABS: ALANINE AMINOTRANSFERASE 35 U/L (12-78); ALBUMIN 1.8 G/DL (3.4-5.0); ALBUMIN/GLOBULIN RATIO 0.3 (1.0-2.7); ALKALINE PHOSPHATASE 268 U/L (46-116); ANION GAP 12 mmol/L (5-15); ASPARTATE AMINO TRANSFERASE 56 U/L (15-37); BLOOD UREA NITROGEN 36 mg/dL (7-18); CALCIUM 9.2 MG/DL (8.5-10.1); CARBON DIOXIDE 28 MMOL/L (21-32); CHLORIDE 97 MMOL/L (98-107); CREATININE 2.5 MG/DL (0.55-1.30); POTASSIUM 4.1 MMOL/L (3.5-5.1); SODIUM 136 MMOL/L (136-145)
[2019-12-29] MEDS: Heparin 25,000u/D5W 500ml 500 ML IV SCH ×2 (06:45→11:25)
[2019-12-29] MEDS ORDERED: Heparin 5000 units/ml inj IV SCH (06:45)
--- NOTE | 2019-12-29 07:15 | NUR ---
NURSE NOTES: Received patient from Sayda LACKEY. patient is obtunded. Sinus Tachycardia on the Heart Monitor, HR 102. Receiving oxygen via ET Tube 8.0, 24 cm at the lip line, vent settings: AC 20, TV 500, FiO2 100%, PEEP 3. Left Nares NGT is intact and receiving Nepro at 35cc/hr. Joe catheter is intact, less than 5cc of urine output. IV site is left forearm 20g and left AC 20g, both intact and asymptomatic, Right Femoral TLC is intact and receiving Heparin drip at 32units/kg/hr, Levophed at 24mcg/min, and Fentanyl at 130mcg/hr. Bed is locked, placed in lowest position, side rails up x3, bed alarm on, head of bed elevated.
--- NOTE | 2019-12-29 07:15 | NUR ---
HAND-OFF: Report given to Mustapha RN. patient desat to 88-90's. will endorse to follow with MD.
--- NOTE | 2019-12-29 07:15 | Hematology/Onc Progress Note ---
Assessment/Plan Assessment/Plan # Leukocytosis/elevated white blood cell count, unspecified likely related to underlying stress reaction and addition of infection, COVID19++++++ on vent, intubated --> have reviewed peripheral smear and bandemia/neutrophilia noted --> continue antibiotics if they have been started by ID team --> on broad spectrum abx cefepime/flag/vanc-->katie/vanc/difluc-->vanc/katie --> monitor for resolution --> smear is noted, with metamyelocytes --> wbc trend 18-->24-->32.9-->34k-->27->26-->32->31->30-->34.2 -->30-->37-->35 --> ID is aware --> again ordered peripheral smear for path review-->reviewed and no blasts noted --> 12/27 cxr: Diffuse opacities and consolidation throughout the lungs, similar in the left lung and increased in the right lung. Possible small right pleural effusion # Anemia of chronic disease due to underlying chronic medical issues, multifactorial v Gi bleed --> Anemia workup has been ordered, rule out gi bleed --> No evidence of hemolysis is noted, peripheral smear has been reviewed. --> Hgb goal >7. Transfuse prn. --> Epogen or iron at this time is not particularly indicated --> Medications have been reviewed --> low threshold for gi evaluation in case has occult + ==> hgb trend 11-->10.7-->10.4-->9.3-->9.1-->8-->8.2-->8.6-->8.4-->7.3 # Thrombocytopenia also likely covid related --> supportive care --> plt 149-->164k-->154->195-->253 -->323-->267 --> smear noted # Acute Hypoxic Respiratory Failure s/p intubation --> now on vent --> as per Dr. Cortes, weaning prn # COVID19 positive --> abx # Pneumomediastinum --> monitor for expansion --> on vent # Subcutaneous emphysema --> too high risk for bedside thoracostomy --> also possible pe--> hep gtt # ALBARO on ckd --> hd as needed --> per renal # femoral HD cath placed 12/04 --> hd prn # Dvt ppx scds --> heparin gtt FELICITY Rn and appreciate consultation Subjective Allergies: Coded Allergies: No Known Allergies (Unverified , 11/29/19) Subjective 12/12 remains on vent, ogtube, barnes and rectal tube emptied, right fem jia line 12/14 icu, prone, levo gtt, multiple abx, labs reviewed 12/15 nonv, no bleeding, remains in vent, no bleeding, wbc high, on abx per id 12/16 nonv, on vent, ng, rectal tube, wbc still 34k 12/17 icu, levo gtt, on katie/vanc, tachy 12/18 in icu, on ng tube feeds, vent, no bleeding, jia in place 12/19 in the icu, no bleeding, ngt, with rectal tube, no bleeding ebc 28k 12/21 is with higer wbc, on katie/vanc/diflucan, id aware, on vent 12/22 hgb 7.8, remains on vent, abx as well, labs reviewed wbc 31k 12/23 wbc is 30, hgb 8, no bleeding or chills, on vent, felicity rn in am 12/24 icu, levo gtt, wbc 34, daily hd, stool ob pending 12/25 in icu, remains on heparin gtt, wbc 30k, no bleeding, cbc noted 12/26 obtunded, labs and meds reviewed, eeg for today 12/28 icu, labs and cxr reviewed, vent, febrile overnight, hgb 7.3 Objective Objective Current Medications Medications (Trade) Dose Ordered Sig/Vicki Route PRN Reason Start Time Stop Time Status Last Admin Dose Admin Acetaminophen (Tylenol) 650 mg Q4H PRN NG Temp >100.5 12/06/19 14:15 01/05/20 14:14 12/29/19 01:08 Acetaminophen (Tylenol) 650 mg Q4H PRN RECTAL Mild Pain (Pain Scale 1-3) 12/04/19 11:45 01/03/20 11:44 12/06/19 19:17 Chlorhexidine Gluconate (Arely-Hex 2%) 1 applic DAILY@1999 TOPIC 12/05/19 20:00 03/04/20 19:59 12/28/19 20:44 Dextrose (Dextrose 50%) 25 ml Q30M PRN IV Hypoglycemia 11/29/19 14:15 02/27/20 14:14 Dextrose (Dextrose 50%) 50 ml Q30M PRN IV Hypoglycemia 11/29/19 14:15 02/27/20 14:14 Fentanyl Citrate 250 ml @ 0 mls/hr Q24H IV 12/27/19 11:00 03/26/20 10:59 12/29/19 04:18 Folic Acid (Folate) 1 mg DAILY NG 12/18/19 09:00 01/17/20 08:59 12/28/19 08:17 Heparin Sodium (Porcine) (Heparin 5000 units/ml) 2,500 units ONCE IV 12/29/19 06:45 12/29/19 08:00 12/29/19 06:41 Heparin Sodium/ Dextrose 500 ml @ 43.072 mls/ hr ADJUST PER PROTOCOL IV 12/29/19 06:45 01/28/20 06:44 12/29/19 06:45 Hydralazine HCl (Apresoline) 10 mg Q4H PRN IV For High Blood Pressure 11/29/19 15:15 02/27/20 15:14 Loperamide HCl (Imodium) 2 mg Q6H PRN NG Diarrhea 12/12/19 12:45 01/11/20 12:44 Meropenem 500 mg/ Sodium Chloride 50 ml @ 100 mls/hr Q24H IVPB 12/28/19 21:00 01/02/20 20:59 12/28/19 20:46 Micafungin Sodium 100 mg/Sodium Chloride 100 ml @ 100 mls/hr Q24H IVPB 12/24/19 22:00 12/31/19 21:59 12/28/19 21:55 Midazolam HCl 100 ml @ 0 mls/hr Q24H PRN IV Restlessness 12/24/19 16:30 12/31/19 16:29 12/25/19 16:31 Midodrine (Pro-Amatine) 10 mg THREE TIMES A DAY NG 12/27/19 13:00 03/11/20 12:59 12/28/19 17:33 Norepinephrine Bitartrate 8 mg/ Dextrose 250 ml @ 0 mls/hr Q24H IV 12/18/19 09:00 01/17/20 08:59 12/29/19 04:56 Ondansetron HCl (Zofran) 4 mg Q6H PRN IVP Nausea & Vomiting 11/29/19 14:15 12/29/19 14:14 Pantoprazole (Protonix) 40 mg DAILY IVP 11/30/19 12:15 12/30/19 12:14 12/28/19 08:17 Sevelamer Carbonate (Renvela) 800 mg THREE TIMES A DAY NG 12/22/19 13:00 03/21/20 12:59 12/28/19 17:33 Vancomycin HCl (Vanco rx to dose) 1 ea DAILY PRN MISC Per rx protocol 12/08/19 19:30 01/07/20 19:29 Vancomycin HCl 1 gm/Dextrose 275 ml @ 183.708 mls/hr ONCE IVPB 12/29/19 09:00 12/29/19 11:00 Vitamin B Complex/ Vit C/Folic Acid (Nephrovite) 1 tab DAILY NG 12/16/19 09:00 01/15/20 08:59 12/28/19 08:16 Last 24 Hour Vital Signs Date Time Temp Pulse Resp B/P (MAP) Pulse Ox O2 Delivery O2 Flow Rate FiO2 12/29/19 06:00 28 121/52 Mechanical Ventilator 100 12/29/19 06:00 121/52 12/29/19 06:00 108 19 121/52 (75) 91 12/29/19 05:45 110 21 117/50 (72) 91 12/29/19 05:30 108 20 115/54 (74) 89 12/29/19 05:15 112 21 92 12/29/19 05:00 112 21 117/53 (74) 93 12/29/19 05:00 28 101/70 Mechanical Ventilator 100 12/29/19 05:00 101/70 12/29/19 04:56 81/45 12/29/19 04:55 81/45 12/29/19 04:45 108 20 81/45 (57) 92 12/29/19 04:32 100 12/29/19 04:30 113 21 111/49 (69) 93 12/29/19 04:18 19 128/56 Mechanical Ventilator 15.0 90 12/29/19 04:15 109 20 102/46 (64) 93 12/29/19 04:00 97.9 114 22 113/53 (73) 96 12/29/19 04:00 114 12/29/19 04:00 Mechanical Ventilator 12/29/19 04:00 100 12/29/19 04:00 102/46 12/29/19 03:45 114 26 116/53 (74) 96 12/29/19 03:30 116 21 115/52 (73) 96 12/29/19 03:15 118 19 128/56 (80) 100 12/29/19 03:09 121 29 90 12/29/19 03:00 121 30 112/51 (71) 96 12/29/19 03:00 30 112/51 Mechanical Ventilator 90 12/29/19 03:00 112/51 12/29/19 02:45 123 27 111/51 (71) 96 12/29/19 02:30 126 30 108/48 (68) 96 12/29/19 02:15 128 30 99/48 (65) 97 12/29/19 02:00 130 29 102/50 (67) 98 12/29/19 02:00 30 99/48 Mechanical Ventilator 90 12/29/19 02:00 99/48 12/29/19 01:38 100.9 12/29/19 01:30 135 36 94/47 (63) 96 12/29/19 01:00 101.4 132 33 98/47 (64) 90 12/29/19 01:00 33 95/45 Mechanical Ventilator 90 12/29/19 01:00 94/45 12/29/19 00:30 131 33 97/49 (65) 93 12/29/19 00:00 80 12/29/19 00:00 131 12/29/19 00:00 Mechanical Ventilator 12/29/19 00:00 30 105/44 Mechanical Ventilator 90 12/29/19 00:00 105/44 12/29/19 00:00 99.8 129 32 96/50 (65) 93 12/28/19 23:33 79/37 12/28/19 23:30 119 24 79/37 (51) 90 12/28/19 23:08 124 34 80 12/28/19 23:00 27 84/42 Mechanical Ventilator 80 5/16/20 23:00 84/42 12/28/19 23:00 124 27 103/52 (69) 96 12/28/19 22:30 122 28 113/52 (72) 97 12/28/19 22:00 122 28 109/50 (69) 95 12/28/19 22:00 27 107/48 Mechanical Ventilator 80 12/28/19 22:00 107/48 12/28/19 21:30 119 23 115/53 (73) 96 12/28/19 21:00 117 22 111/49 (69) 95 12/28/19 21:00 25 114/50 Mechanical Ventilator 80 12/28/19 21:00 114/50 12/28/19 20:45 117 26 113/54 (73) 95 12/28/19 20:30 117 20 117/55 (75) 96 12/28/19 20:15 115 21 117/51 (73) 96 12/28/19 20:00 Mechanical Ventilator 12/28/19 20:00 22 117/51 Mechanical Ventilator 80 12/28/19 20:00 117/51 12/28/19 20:00 99.0 115 18 137/60 (85) 99 12/28/19 19:57 113 25 80 12/28/19 19:00 23 125/59 Mechanical Ventilator 80 12/28/19 19:00 125/59 12/28/19 19:00 114 23 125/59 (81) 99 12/28/19 18:30 115 20 131/56 (81) 99 12/28/19 18:00 118 25 122/60 (80) 99 12/28/19 18:00 25 122/60 Mechanical Ventilator 80 12/28/19 18:00 122/60 12/28/19 17:45 122 26 114/49 (70) 98 12/28/19 17:30 98.8 123 21 116/46 (69) 97 12/28/19 17:04 97/31 12/28/19 17:00 124 25 97/31 (53) 86 12/28/19 17:00 25 97/31 Mechanical Ventilator 80 12/28/19 16:33 123 20 98/32 (54) 88 12/28/19 16:30 122 22 97/33 (54) 87 12/28/19 16:27 120 22 91/35 (53) 82 5/16/20 16:25 120 23 86/38 (54) 84 12/28/19 16:15 119 23 103/38 (59) 87 12/28/19 16:00 80 12/28/19 16:00 97.7 119 21 105/41 (62) 90 12/28/19 16:00 21 105/41 Mechanical Ventilator 80 12/28/19 16:00 105/41 12/28/19 16:00 113 12/28/19 16:00 Mechanical Ventilator 12/28/19 15:45 117 21 114/43 (66) 91 12/28/19 15:30 115 20 115/41 (65) 93 12/28/19 15:00 26 109/72 Mechanical Ventilator 80 12/28/19 15:00 117/47 12/28/19 15:00 113 22 117/47 (70) 93 12/28/19 14:41 115 25 80 12/28/19 14:30 114 21 125/45 (71) 95 12/28/19 14:15 113 21 128/47 (74) 95 12/28/19 14:00 21 131/42 Mechanical Ventilator 80 12/28/19 14:00 131/42 12/28/19 14:00 111 21 131/42 (71) 96 12/28/19 13:30 112 18 131/50 (77) 96 12/28/19 13:00 22 120/55 Mechanical Ventilator 80 12/28/19 13:00 120/55 12/28/19 13:00 120 22 120/55 (76) 96 12/28/19 12:30 113/55 12/28/19 12:30 120 24 111/55 (73) 96 12/28/19 12:15 99.2 120 21 113/55 (74) 95 12/28/19 12:00 118 12/28/19 12:00 21 113/55 Mechanical Ventilator 80 12/28/19 12:00 113/55 12/28/19 12:00 80 12/28/19 12:00 Mechanical Ventilator 12/28/19 12:00 121 24 112/53 (72) 94 12/28/19 11:30 120 23 116/50 (72) 93 12/28/19 11:05 113/52 12/28/19 11:00 122 19 113/52 (72) 93 12/28/19 11:00 19 113/52 Mechanical Ventilator 80 12/28/19 11:00 113/52 12/28/19 10:45 122 20 124/51 (75) 94 12/28/19 10:37 124 25 80 12/28/19 10:30 122 21 123/49 (73) 94 12/28/19 10:15 120 20 119/48 (71) 95 12/28/19 10:00 20 121/50 Mechanical Ventilator 80 12/28/19 10:00 121/50 12/28/19 10:00 118 20 121/50 (73) 95 12/28/19 09:45 119 20 121/50 (73) 96 12/28/19 09:30 119 20 127/53 (77) 97 12/28/19 09:15 118 20 121/55 (77) 98 12/28/19 09:00 21 122/50 Mechanical Ventilator 80 12/28/19 09:00 122/50 12/28/19 09:00 120 21 122/50 (74) 99 12/28/19 08:45 119 20 125/53 (77) 99 12/28/19 08:30 125 20 114/50 (71) 96 12/28/19 08:00 Mechanical Ventilator 12/28/19 08:00 22 125/55 Mechanical Ventilator 80 12/28/19 08:00 125/55 12/28/19 08:00 100.0 121 22 125/55 (78) 97 12/28/19 08:00 120 12/28/19 08:00 80 12/28/19 07:30 128 34 106/48 (67) 85 12/28/19 07:12 128 33 80 12/28/19 07:00 32 91/47 Mechanical Ventilator 80 12/28/19 07:00 91/49 12/28/19 07:00 126 36 91/47 (62) 87 12/28/19 06:30 130 27 90/43 (59) 91 12/28/19 06:17 39 112/49 Mechanical Ventilator 80 12/28/19 06:00 125 24 112/49 (70) 95 12/28/19 06:00 28 112/49 Mechanical Ventilator 80 12/28/19 06:00 112/49 12/28/19 05:30 120 31 111/47 (68) 94 12/28/19 05:00 116 32 118/53 (74) 95 12/28/19 05:00 32 118/53 Mechanical Ventilator 80 12/28/19 05:00 118/53 12/28/19 04:31 94/43 12/28/19 04:30 115 31 92/42 (59) 92 12/28/19 04:00 80 12/28/19 04:00 110 12/28/19 04:00 Mechanical Ventilator 12/28/19 04:00 30 128/59 Mechanical Ventilator 80 12/28/19 04:00 128/59 12/28/19 04:00 98.2 110 30 128/59 (82) 98 12/28/19 03:30 108 28 80 12/28/19 03:30 110 23 137/61 (86) 99 12/28/19 03:00 21 115/52 Mechanical Ventilator 80 12/28/19 03:00 115/52 12/28/19 03:00 116 21 115/52 (73) 87 12/28/19 02:30 110 29 124/56 (78) 100 12/28/19 02:00 117 30 128/60 (82) 99 12/28/19 02:00 29 128/60 Mechanical Ventilator 80 12/28/19 02:00 128/60 12/28/19 01:30 116 30 116/57 (76) 99 12/28/19 01:00 115 29 122/58 (79) 99 12/28/19 01:00 22 122/58 Mechanical Ventilator 80 12/28/19 01:00 122/58 12/28/19 00:30 118 30 110/61 (77) 99 12/28/19 00:00 100.3 119 23 103/49 (67) 100 12/28/19 00:00 80 12/28/19 00:00 Mechanical Ventilator 12/28/19 00:00 23 103/49 Mechanical Ventilator 80 12/28/19 00:00 103/49 12/27/19 23:30 120 28 110/50 (70) 100 12/27/19 23:10 121 30 80 12/27/19 23:00 28 108/50 Mechanical Ventilator 80 12/27/19 23:00 108/50 12/27/19 23:00 122 29 108/50 (69) 100 12/27/19 22:30 122 29 108/53 (71) 100 12/27/19 22:00 23 109/46 Mechanical Ventilator 80 12/27/19 22:00 109/46 12/27/19 22:00 125 27 109/46 (67) 100 12/27/19 21:30 100.2 127 29 108/54 (72) 99 12/27/19 21:00 128 29 112/49 (70) 99 12/27/19 21:00 23 112/53 Mechanical Ventilator 80 12/27/19 21:00 112/53 12/27/19 20:30 130 30 108/51 (70) 99 12/27/19 20:00 131 12/27/19 20:00 Mechanical Ventilator 12/27/19 20:00 20 97/48 Mechanical Ventilator 80 12/27/19 20:00 97/48 12/27/19 20:00 80 12/27/19 20:00 102.5 131 30 97/48 (64) 97 12/27/19 19:47 75/56 12/27/19 19:30 135 28 75/41 (52) 98 12/27/19 19:20 129 26 80 12/27/19 19:00 135 27 95/42 (59) 98 12/27/19 19:00 18 95/42 Mechanical Ventilator 80 12/27/19 19:00 95/42 12/27/19 18:30 134 27 93/46 (62) 98 12/27/19 18:00 135 29 96/49 (65) 98 12/27/19 18:00 28 91/44 Mechanical Ventilator 80 12/27/19 18:00 91/44 12/27/19 17:30 135 30 100/55 (70) 97 12/27/19 17:00 133 30 101/53 (69) 98 12/27/19 17:00 30 94/54 Mechanical Ventilator 80 12/27/19 17:00 94/54 12/27/19 16:30 130 29 111/53 (72) 98 12/27/19 16:00 80 12/27/19 16:00 99.0 127 28 103/58 (73) 100 12/27/19 16:00 125 12/27/19 16:00 30 102/51 Mechanical Ventilator 80 12/27/19 16:00 102/51 12/27/19 16:00 Mechanical Ventilator 12/27/19 15:30 124 29 107/52 (70) 100 12/27/19 15:00 125 28 80 12/27/19 15:00 28 98/53 Mechanical Ventilator 80 12/27/19 15:00 98/53 12/27/19 15:00 123 28 97/52 (67) 98 12/27/19 14:30 123 28 88/50 (63) 99 12/27/19 14:00 27 91/51 Mechanical Ventilator 80 12/27/19 14:00 91/51 12/27/19 14:00 124 26 100/53 (69) 100 12/27/19 13:30 123 26 103/58 (73) 100 12/27/19 13:00 27 105/57 Mechanical Ventilator 80 12/27/19 13:00 105/57 12/27/19 13:00 123 27 103/60 (74) 98 12/27/19 12:30 124 29 102/53 (69) 98 12/27/19 12:00 122 12/27/19 12:00 Mechanical Ventilator 12/27/19 12:00 28 96/52 Mechanical Ventilator 80 12/27/19 12:00 96/52 12/27/19 12:00 80 12/27/19 12:00 99.2 123 28 104/51 (68) 100 12/27/19 11:45 122 29 105/54 (71) 100 12/27/19 11:30 125 23 119/57 (77) 100 12/27/19 11:25 28 98/58 Mechanical Ventilator 15.0 80 12/27/19 11:00 122 28 103/52 (69) 100 12/27/19 11:00 28 95/51 Mechanical Ventilator 80 12/27/19 11:00 95/51 12/27/19 10:30 123 28 80 12/27/19 10:30 124 29 99/52 (68) 99 12/27/19 10:00 123 27 94/53 (67) 99 12/27/19 10:00 30 94/53 Mechanical Ventilator 80 12/27/19 10:00 94/53 12/27/19 09:30 123 30 110/57 (74) 100 12/27/19 09:00 29 105/61 Mechanical Ventilator 80 12/27/19 09:00 105/61 12/27/19 09:00 123 29 114/61 (78) 100 12/27/19 08:30 124 30 105/56 (72) 100 12/27/19 08:00 126 12/27/19 08:00 80 12/27/19 08:00 29 122/75 Mechanical Ventilator 80 12/27/19 08:00 99.9 126 28 87/49 (62) 100 12/27/19 08:00 Mechanical Ventilator 12/27/19 07:56 88/50 12/27/19 07:30 125 26 89/53 (65) 100 Intake and Output 12/28/19 12/29/19 19:00 07:00 Intake Total 1649.935 ml 1632.52 ml Output Total 1525 ml 50 ml Balance 124.935 ml 1582.52 ml Free Water 90 ml IV Total 1129.935 ml 1157.52 ml Tube Feeding 420 ml 385 ml Other 100 ml Output Urine Total 5 ml 0 ml Stool Total 20 ml 50 ml Hemodialysis UF 1500 ml Labs Test 12/26/19 12:25 12/26/19 20:30 12/27/19 03:53 12/27/19 04:00 Activated Partial Thromboplast Time 61 SEC (23-33) 63 SEC (23-33) 60 SEC (23-33) Sodium Level 134 MMOL/L (136-145) Potassium Level 4.0 MMOL/L (3.5-5.1) Chloride Level 95 MMOL/L (98-107) Carbon Dioxide Level 31 MMOL/L (21-32) Anion Gap 8 mmol/L (5-15) Blood Urea Nitrogen 46 mg/dL (7-18) Creatinine 3.5 MG/DL (0.55-1.30) Estimat Glomerular Filtration Rate 18.1 mL/min (>60) Glucose Level 129 MG/DL (74-106) Calcium Level 9.1 MG/DL (8.5-10.1) Total Bilirubin 0.7 MG/DL (0.2-1.0) Aspartate Amino Transf (AST/SGOT) 43 U/L (15-37) Alanine Aminotransferase (ALT/SGPT) 41 U/L (12-78) Alkaline Phosphatase 230 U/L (46-116) Total Protein 7.5 G/DL (6.4-8.2) Albumin 2.1 G/DL (3.4-5.0) Globulin 5.4 g/dL Albumin/Globulin Ratio 0.4 (1.0-2.7) Random Vancomycin Level 20.1 ug/mL White Blood Count 37.1 K/UL (4.8-10.8) Red Blood Count 2.83 M/UL (4.70-6.10) Hemoglobin 8.4 G/DL (14.2-18.0) Hematocrit 25.7 % (42.0-52.0) Mean Corpuscular Volume 91 FL (80-99) Mean Corpuscular Hemoglobin 29.5 PG (27.0-31.0) Mean Corpuscular Hemoglobin Concent 32.5 G/DL (32.0-36.0) Red Cell Distribution Width 15.4 % (11.6-14.8) Platelet Count 323 K/UL (150-450) Mean Platelet Volume 6.5 FL (6.5-10.1) Neutrophils (%) (Auto) % (45.0-75.0) Lymphocytes (%) (Auto) % (20.0-45.0) Monocytes (%) (Auto) % (1.0-10.0) Eosinophils (%) (Auto) % (0.0-3.0) Basophils (%) (Auto) % (0.0-2.0) Differential Total Cells Counted 100 Neutrophils % (Manual) 88 % (45-75) Lymphocytes % (Manual) 2 % (20-45) Monocytes % (Manual) 9 % (1-10) Eosinophils % (Manual) 0 % (0-3) Basophils % (Manual) 0 % (0-2) Band Neutrophils 1 % (0-8) Platelet Estimate Adequate Platelet Morphology Normal Hypochromasia 1+ Anisocytosis 1+ Test 12/27/19 11:00 12/28/19 03:45 12/28/19 06:50 12/28/19 07:37 Activated Partial Thromboplast Time 68 SEC (23-33) > 150 SEC (23-33) 76 SEC (23-33) White Blood Count 37.5 K/UL (4.8-10.8) Red Blood Count 2.49 M/UL (4.70-6.10) Hemoglobin 7.5 G/DL (14.2-18.0) Hematocrit 23.8 % (42.0-52.0) Mean Corpuscular Volume 96 FL (80-99) Mean Corpuscular Hemoglobin 30.0 PG (27.0-31.0) Mean Corpuscular Hemoglobin Concent 31.4 G/DL (32.0-36.0) Red Cell Distribution Width 16.6 % (11.6-14.8) Platelet Count 270 K/UL (150-450) Mean Platelet Volume 7.2 FL (6.5-10.1) Neutrophils (%) (Auto) % (45.0-75.0) Lymphocytes (%) (Auto) % (20.0-45.0) Monocytes (%) (Auto) % (1.0-10.0) Eosinophils (%) (Auto) % (0.0-3.0) Basophils (%) (Auto) % (0.0-2.0) Differential Total Cells Counted 100 Neutrophils % (Manual) 88 % (45-75) Lymphocytes % (Manual) 3 % (20-45) Monocytes % (Manual) 2 % (1-10) Eosinophils % (Manual) 0 % (0-3) Basophils % (Manual) 0 % (0-2) Band Neutrophils 7 % (0-8) Platelet Estimate Adequate Platelet Morphology Normal Polychromasia 1+ Hypochromasia 1+ Anisocytosis 1+ Sodium Level 129 MMOL/L (136-145) Potassium Level 3.2 MMOL/L (3.5-5.1) Chloride Level 86 MMOL/L (98-107) Carbon Dioxide Level 30 MMOL/L (21-32) Anion Gap 14 mmol/L (5-15) Blood Urea Nitrogen 33 mg/dL (7-18) Creatinine 3.0 MG/DL (0.55-1.30) Estimat Glomerular Filtration Rate 21.6 mL/min (>60) Glucose Level 516 MG/DL (74-106) Calcium Level 7.9 MG/DL (8.5-10.1) Total Bilirubin 0.6 MG/DL (0.2-1.0) Aspartate Amino Transf (AST/SGOT) 29 U/L (15-37) Alanine Aminotransferase (ALT/SGPT) 35 U/L (12-78) Alkaline Phosphatase 217 U/L (46-116) Total Protein 6.8 G/DL (6.4-8.2) Albumin 1.8 G/DL (3.4-5.0) Globulin 5.0 g/dL Albumin/Globulin Ratio 0.4 (1.0-2.7) Random Vancomycin Level 21.0 ug/mL Arterial Blood pH 7.228 (7.350-7.450) Arterial Blood Partial Pressure CO2 81.9 mmHg (35.0-45.0) Arterial Blood Partial Pressure O2 50.3 mmHg (75.0-100.0) Arterial Blood HCO3 33.4 mmol/L (22.0-26.0) Arterial Blood Oxygen Saturation 81.2 % (95-100) Arterial Blood Base Excess 4.6 (-2-2) Melecio Test Positive Test 12/29/19 05:25 White Blood Count 35.1 K/UL (4.8-10.8) Red Blood Count 2.45 M/UL (4.70-6.10) Hemoglobin 7.3 G/DL (14.2-18.0) Hematocrit 23.3 % (42.0-52.0) Mean Corpuscular Volume 95 FL (80-99) Mean Corpuscular Hemoglobin 29.8 PG (27.0-31.0) Mean Corpuscular Hemoglobin Concent 31.5 G/DL (32.0-36.0) Red Cell Distribution Width 17.1 % (11.6-14.8) Platelet Count 267 K/UL (150-450) Mean Platelet Volume 7.6 FL (6.5-10.1) Neutrophils (%) (Auto) % (45.0-75.0) Lymphocytes (%) (Auto) % (20.0-45.0) Monocytes (%) (Auto) % (1.0-10.0) Eosinophils (%) (Auto) % (0.0-3.0) Basophils (%) (Auto) % (0.0-2.0) Activated Partial Thromboplast Time 57 SEC (23-33) Sodium Level 136 MMOL/L (136-145) Potassium Level 4.1 MMOL/L (3.5-5.1) Chloride Level 97 MMOL/L (98-107) Carbon Dioxide Level 28 MMOL/L (21-32) Anion Gap 12 mmol/L (5-15) Blood Urea Nitrogen 36 mg/dL (7-18) Creatinine 2.5 MG/DL (0.55-1.30) Estimat Glomerular Filtration Rate 26.7 mL/min (>60) Glucose Level 177 MG/DL (74-106) Calcium Level 9.2 MG/DL (8.5-10.1) Phosphorus Level 4.4 MG/DL (2.5-4.9) Magnesium Level 2.6 MG/DL (1.8-2.4) Total Bilirubin 1.0 MG/DL (0.2-1.0) Aspartate Amino Transf (AST/SGOT) 56 U/L (15-37) Alanine Aminotransferase (ALT/SGPT) 35 U/L (12-78) Alkaline Phosphatase 268 U/L (46-116) Total Protein 7.2 G/DL (6.4-8.2) Albumin 1.8 G/DL (3.4-5.0) Globulin 5.4 g/dL Albumin/Globulin Ratio 0.3 (1.0-2.7) Random Vancomycin Level 12.4 ug/mL Height (Feet): 5 Height (Inches): 6.00 Weight (Pounds): 151 Objective General: prone position on vent Heent: nc, at+ ng Respiratory: normal breath sounds, no retraction, vent++ Cardiovascular: no edema, tachycardia Gastrointestinal: normal inspection Neurologic unresponsive on vent Psychiatrc: unable to access Ext: with hd fem jia in place : + barnes and rectal tube Mj Zhu MD December 29, 2019 07:15
--- NOTE | 2019-12-29 07:37 | General Progress Note ---
Assessment/Plan Problem List: (1) Elevated LFTs ICD Codes: R79.89 - Other specified abnormal findings of blood chemistry SNOMED: 574404560, 964007776 (2) HTN (hypertension) ICD Codes: I10 - Essential (primary) hypertension SNOMED: 72485695 (3) Suspected COVID-19 virus infection ICD Codes: R68.89 - Other general symptoms and signs SNOMED: 668587133 (4) Pneumonia ICD Codes: J18.9 - Pneumonia, unspecified organism SNOMED: 389349290 (5) Respiratory distress ICD Codes: R06.03 - Acute respiratory distress SNOMED: 841395024 (6) Pneumomediastinum ICD Codes: J98.2 - Interstitial emphysema SNOMED: 32515552 (7) COVID-19 ICD Codes: U07.1 - COVID-19 SNOMED: 655229093 (8) Hypotension ICD Codes: I95.9 - Hypotension, unspecified SNOMED: 20165508 Assessment/Plan: NGTF rectal tube in place elevated LFTS most likely due to shock liver>>> improving repeat labs in am hepatitis panel>>>Neg fu nephrology recent labs and notes reviewed D/W the nurse Subjective ROS Limited/Unobtainable: No Allergies: Coded Allergies: No Known Allergies (Unverified , 11/29/19) Objective Last 24 Hour Vital Signs Date Time Temp Pulse Resp B/P (MAP) Pulse Ox O2 Delivery O2 Flow Rate FiO2 12/29/19 07:15 103 20 118/51 (73) 82 12/29/19 07:00 103 20 118/54 (75) 85 12/29/19 06:45 106 20 108/49 (68) 75 12/29/19 06:30 107 20 116/52 (73) 80 12/29/19 06:15 106 20 122/51 (74) 87 12/29/19 06:00 28 121/52 Mechanical Ventilator 100 12/29/19 06:00 121/52 12/29/19 06:00 108 19 121/52 (75) 91 12/29/19 05:45 110 21 117/50 (72) 91 12/29/19 05:30 108 20 115/54 (74) 89 12/29/19 05:15 112 21 92 12/29/19 05:00 112 21 117/53 (74) 93 12/29/19 05:00 28 101/70 Mechanical Ventilator 100 12/29/19 05:00 101/70 12/29/19 04:56 81/45 12/29/19 04:55 81/45 12/29/19 04:45 108 20 81/45 (57) 92 12/29/19 04:32 100 12/29/19 04:30 113 21 111/49 (69) 93 12/29/19 04:18 19 128/56 Mechanical Ventilator 15.0 90 12/29/19 04:15 109 20 102/46 (64) 93 12/29/19 04:00 97.9 114 22 113/53 (73) 96 12/29/19 04:00 114 12/29/19 04:00 Mechanical Ventilator 12/29/19 04:00 100 12/29/19 04:00 102/46 12/29/19 03:45 114 26 116/53 (74) 96 12/29/19 03:30 116 21 115/52 (73) 96 12/29/19 03:15 118 19 128/56 (80) 100 12/29/19 03:09 121 29 90 12/29/19 03:00 121 30 112/51 (71) 96 12/29/19 03:00 30 112/51 Mechanical Ventilator 90 12/29/19 03:00 112/51 12/29/19 02:45 123 27 111/51 (71) 96 12/29/19 02:30 126 30 108/48 (68) 96 12/29/19 02:15 128 30 99/48 (65) 97 12/29/19 02:00 130 29 102/50 (67) 98 12/29/19 02:00 30 99/48 Mechanical Ventilator 90 12/29/19 02:00 99/48 12/29/19 01:38 100.9 12/29/19 01:30 135 36 94/47 (63) 96 12/29/19 01:00 101.4 132 33 98/47 (64) 90 12/29/19 01:00 33 95/45 Mechanical Ventilator 90 12/29/19 01:00 94/45 12/29/19 00:30 131 33 97/49 (65) 93 12/29/19 00:00 80 12/29/19 00:00 131 5/17/20 00:00 Mechanical Ventilator 12/29/19 00:00 30 105/44 Mechanical Ventilator 90 12/29/19 00:00 105/44 12/29/19 00:00 99.8 129 32 96/50 (65) 93 12/28/19 23:33 79/37 12/28/19 23:30 119 24 79/37 (51) 90 12/28/19 23:08 124 34 80 12/28/19 23:00 27 84/42 Mechanical Ventilator 80 12/28/19 23:00 84/42 12/28/19 23:00 124 27 103/52 (69) 96 12/28/19 22:30 122 28 113/52 (72) 97 12/28/19 22:00 122 28 109/50 (69) 95 12/28/19 22:00 27 107/48 Mechanical Ventilator 80 12/28/19 22:00 107/48 12/28/19 21:30 119 23 115/53 (73) 96 12/28/19 21:00 117 22 111/49 (69) 95 12/28/19 21:00 25 114/50 Mechanical Ventilator 80 12/28/19 21:00 114/50 12/28/19 20:45 117 26 113/54 (73) 95 12/28/19 20:30 117 20 117/55 (75) 96 12/28/19 20:15 115 21 117/51 (73) 96 12/28/19 20:00 Mechanical Ventilator 12/28/19 20:00 22 117/51 Mechanical Ventilator 80 12/28/19 20:00 117/51 12/28/19 20:00 99.0 115 18 137/60 (85) 99 12/28/19 19:57 113 25 80 12/28/19 19:00 23 125/59 Mechanical Ventilator 80 12/28/19 19:00 125/59 12/28/19 19:00 114 23 125/59 (81) 99 12/28/19 18:30 115 20 131/56 (81) 99 12/28/19 18:00 118 25 122/60 (80) 99 12/28/19 18:00 25 122/60 Mechanical Ventilator 80 12/28/19 18:00 122/60 12/28/19 17:45 122 26 114/49 (70) 98 12/28/19 17:30 98.8 123 21 116/46 (69) 97 12/28/19 17:04 97/31 12/28/19 17:00 124 25 97/31 (53) 86 12/28/19 17:00 25 97/31 Mechanical Ventilator 80 12/28/19 16:33 123 20 98/32 (54) 88 12/28/19 16:30 122 22 97/33 (54) 87 12/28/19 16:27 120 22 91/35 (53) 82 12/28/19 16:25 120 23 86/38 (54) 84 12/28/19 16:15 119 23 103/38 (59) 87 12/28/19 16:00 80 12/28/19 16:00 97.7 119 21 105/41 (62) 90 12/28/19 16:00 21 105/41 Mechanical Ventilator 80 12/28/19 16:00 105/41 12/28/19 16:00 113 12/28/19 16:00 Mechanical Ventilator 12/28/19 15:45 117 21 114/43 (66) 91 12/28/19 15:30 115 20 115/41 (65) 93 12/28/19 15:00 26 109/72 Mechanical Ventilator 80 12/28/19 15:00 117/47 12/28/19 15:00 113 22 117/47 (70) 93 12/28/19 14:41 115 25 80 12/28/19 14:30 114 21 125/45 (71) 95 12/28/19 14:15 113 21 128/47 (74) 95 12/28/19 14:00 21 131/42 Mechanical Ventilator 80 12/28/19 14:00 131/42 12/28/19 14:00 111 21 131/42 (71) 96 12/28/19 13:30 112 18 131/50 (77) 96 12/28/19 13:00 22 120/55 Mechanical Ventilator 80 12/28/19 13:00 120/55 12/28/19 13:00 120 22 120/55 (76) 96 12/28/19 12:30 113/55 12/28/19 12:30 120 24 111/55 (73) 96 12/28/19 12:15 99.2 120 21 113/55 (74) 95 12/28/19 12:00 118 5/16/20 12:00 21 113/55 Mechanical Ventilator 80 12/28/19 12:00 113/55 12/28/19 12:00 80 12/28/19 12:00 Mechanical Ventilator 12/28/19 12:00 121 24 112/53 (72) 94 12/28/19 11:30 120 23 116/50 (72) 93 12/28/19 11:05 113/52 12/28/19 11:00 122 19 113/52 (72) 93 12/28/19 11:00 19 113/52 Mechanical Ventilator 80 12/28/19 11:00 113/52 12/28/19 10:45 122 20 124/51 (75) 94 12/28/19 10:37 124 25 80 12/28/19 10:30 122 21 123/49 (73) 94 12/28/19 10:15 120 20 119/48 (71) 95 12/28/19 10:00 20 121/50 Mechanical Ventilator 80 12/28/19 10:00 121/50 12/28/19 10:00 118 20 121/50 (73) 95 12/28/19 09:45 119 20 121/50 (73) 96 12/28/19 09:30 119 20 127/53 (77) 97 12/28/19 09:15 118 20 121/55 (77) 98 12/28/19 09:00 21 122/50 Mechanical Ventilator 80 12/28/19 09:00 122/50 12/28/19 09:00 120 21 122/50 (74) 99 12/28/19 08:45 119 20 125/53 (77) 99 12/28/19 08:30 125 20 114/50 (71) 96 12/28/19 08:00 Mechanical Ventilator 12/28/19 08:00 22 125/55 Mechanical Ventilator 80 12/28/19 08:00 125/55 12/28/19 08:00 100.0 121 22 125/55 (78) 97 12/28/19 08:00 120 12/28/19 08:00 80 Intake and Output 12/28/19 12/29/19 19:00 07:00 Intake Total 1649.935 ml 1667.52 ml Output Total 1525 ml 50 ml Balance 124.935 ml 1617.52 ml Free Water 90 ml IV Total 1129.935 ml 1157.52 ml Tube Feeding 420 ml 420 ml Other 100 ml Output Urine Total 5 ml 0 ml Stool Total 20 ml 50 ml Hemodialysis UF 1500 ml Laboratory Tests 12/28/19 07:37: Arterial Blood pH 7.228*L, Arterial Blood Partial Pressure CO2 81.9*H, Arterial Blood Partial Pressure O2 50.3L, Arterial Blood HCO3 33.4H, Arterial Blood Oxygen Saturation 81.2*L, Arterial Blood Base Excess 4.6H, Melecio Test Positive 12/29/19 05:25: White Blood Count 35.1*H, Red Blood Count 2.45L, Hemoglobin 7.3L, Hematocrit 23.3L, Mean Corpuscular Volume 95, Mean Corpuscular Hemoglobin 29.8, Mean Corpuscular Hemoglobin Concent 31.5L, Red Cell Distribution Width 17.1H, Platelet Count 267, Mean Platelet Volume 7.6, Neutrophils (%) (Auto) , Lymphocytes (%) (Auto) , Monocytes (%) (Auto) , Eosinophils (%) (Auto) , Basophils (%) (Auto) , Neutrophils % (Manual) [Pending], Lymphocytes % (Manual) [Pending], Platelet Estimate [Pending], Platelet Morphology [Pending], Activated Partial Thromboplast Time 57H, Sodium Level 136, Potassium Level 4.1, Chloride Level 97L, Carbon Dioxide Level 28, Anion Gap 12, Blood Urea Nitrogen 36H, Creatinine 2.5H, Estimat Glomerular Filtration Rate 26.7, Glucose Level 177 #H, Calcium Level 9.2, Phosphorus Level 4.4, Magnesium Level 2.6H, Total Bilirubin 1.0, Aspartate Amino Transf (AST/SGOT) 56H, Alanine Aminotransferase ( ALT/SGPT) 35, Alkaline Phosphatase 268H, Total Protein 7.2, Albumin 1.8L, Globulin 5.4, Albumin/Globulin Ratio 0.3L, Random Vancomycin Level 12.4 Height (Feet): 5 Height (Inches): 6.00 Weight (Pounds): 151 General Appearance: no apparent distress EENT: normal ENT inspection Neck: supple Cardiovascular: tachycardia Respiratory/Chest: decreased breath sounds Abdomen: normal bowel sounds, non tender, soft Extremities: non-tender João Rdz MD December 29, 2019 07:37
--- NOTE | 2019-12-29 08:59 | Pulmonology Progress Note ---
Subjective ROS Limited/Unobtainable: No Interval Events: Intubated ;proning on hold due to facial decubitus Constitutional: Reports: fever, other - on vent HEENT: Repors: no symptoms Respiratory: Reports: no symptoms Cardiovascular: Reports: no symptoms Gastrointestinal/Abdominal: Reports: diarrhea, other - + rectal tube; Denies: nausea, vomiting Genitourinary: Reports: no symptoms Psychiatric: Reports: other - NA Skin: Denies: rash Musculoskeletal: Reports: other - NA Allergies: Coded Allergies: No Known Allergies (Unverified , 11/29/19) All Systems: reviewed and negative except above Subjective On daily HD Objective Last 24 Hour Vital Signs Date Time Temp Pulse Resp B/P (MAP) Pulse Ox O2 Delivery O2 Flow Rate FiO2 12/29/19 08:00 100 12/29/19 08:00 99 20 117/52 (73) 80 12/29/19 08:00 Mechanical Ventilator 12/29/19 08:00 20 117/52 Endotracheal Tube 100 12/29/19 08:00 117/52 12/29/19 07:30 100 20 119/52 (74) 82 12/29/19 07:15 103 20 118/51 (73) 82 12/29/19 07:00 28 119/52 Mechanical Ventilator 100 12/29/19 07:00 119/52 12/29/19 07:00 103 20 118/54 (75) 85 12/29/19 06:45 106 20 108/49 (68) 75 12/29/19 06:43 101 20 100 12/29/19 06:30 107 20 116/52 (73) 80 12/29/19 06:15 106 20 122/51 (74) 87 12/29/19 06:00 28 121/52 Mechanical Ventilator 100 12/29/19 06:00 121/52 12/29/19 06:00 108 19 121/52 (75) 91 12/29/19 05:45 110 21 117/50 (72) 91 12/29/19 05:30 108 20 115/54 (74) 89 12/29/19 05:15 112 21 92 12/29/19 05:00 112 21 117/53 (74) 93 12/29/19 05:00 28 101/70 Mechanical Ventilator 100 12/29/19 05:00 101/70 5/17/20 04:56 81/45 12/29/19 04:55 81/45 12/29/19 04:45 108 20 81/45 (57) 92 12/29/19 04:32 100 12/29/19 04:30 113 21 111/49 (69) 93 12/29/19 04:18 19 128/56 Mechanical Ventilator 15.0 90 12/29/19 04:15 109 20 102/46 (64) 93 12/29/19 04:00 97.9 114 22 113/53 (73) 96 12/29/19 04:00 114 12/29/19 04:00 Mechanical Ventilator 12/29/19 04:00 100 12/29/19 04:00 102/46 12/29/19 03:45 114 26 116/53 (74) 96 12/29/19 03:30 116 21 115/52 (73) 96 12/29/19 03:15 118 19 128/56 (80) 100 12/29/19 03:09 121 29 90 12/29/19 03:00 121 30 112/51 (71) 96 12/29/19 03:00 30 112/51 Mechanical Ventilator 90 12/29/19 03:00 112/51 12/29/19 02:45 123 27 111/51 (71) 96 12/29/19 02:30 126 30 108/48 (68) 96 12/29/19 02:15 128 30 99/48 (65) 97 12/29/19 02:00 130 29 102/50 (67) 98 12/29/19 02:00 30 99/48 Mechanical Ventilator 90 12/29/19 02:00 99/48 12/29/19 01:38 100.9 12/29/19 01:30 135 36 94/47 (63) 96 12/29/19 01:00 101.4 132 33 98/47 (64) 90 12/29/19 01:00 33 95/45 Mechanical Ventilator 90 12/29/19 01:00 94/45 12/29/19 00:30 131 33 97/49 (65) 93 12/29/19 00:00 80 12/29/19 00:00 131 12/29/19 00:00 Mechanical Ventilator 12/29/19 00:00 30 105/44 Mechanical Ventilator 90 12/29/19 00:00 105/44 12/29/19 00:00 99.8 129 32 96/50 (65) 93 12/28/19 23:33 79/37 12/28/19 23:30 119 24 79/37 (51) 90 12/28/19 23:08 124 34 80 12/28/19 23:00 27 84/42 Mechanical Ventilator 80 12/28/19 23:00 84/42 12/28/19 23:00 124 27 103/52 (69) 96 12/28/19 22:30 122 28 113/52 (72) 97 12/28/19 22:00 122 28 109/50 (69) 95 12/28/19 22:00 27 107/48 Mechanical Ventilator 80 12/28/19 22:00 107/48 12/28/19 21:30 119 23 115/53 (73) 96 12/28/19 21:00 117 22 111/49 (69) 95 12/28/19 21:00 25 114/50 Mechanical Ventilator 80 12/28/19 21:00 114/50 12/28/19 20:45 117 26 113/54 (73) 95 12/28/19 20:30 117 20 117/55 (75) 96 12/28/19 20:15 115 21 117/51 (73) 96 12/28/19 20:00 Mechanical Ventilator 12/28/19 20:00 22 117/51 Mechanical Ventilator 80 12/28/19 20:00 117/51 12/28/19 20:00 99.0 115 18 137/60 (85) 99 12/28/19 19:57 113 25 80 12/28/19 19:00 23 125/59 Mechanical Ventilator 80 12/28/19 19:00 125/59 12/28/19 19:00 114 23 125/59 (81) 99 12/28/19 18:30 115 20 131/56 (81) 99 12/28/19 18:00 118 25 122/60 (80) 99 12/28/19 18:00 25 122/60 Mechanical Ventilator 80 12/28/19 18:00 122/60 12/28/19 17:45 122 26 114/49 (70) 98 12/28/19 17:30 98.8 123 21 116/46 (69) 97 12/28/19 17:04 97/31 12/28/19 17:00 124 25 97/31 (53) 86 12/28/19 17:00 25 97/31 Mechanical Ventilator 80 12/28/19 16:33 123 20 98/32 (54) 88 12/28/19 16:30 122 22 97/33 (54) 87 12/28/19 16:27 120 22 91/35 (53) 82 12/28/19 16:25 120 23 86/38 (54) 84 12/28/19 16:15 119 23 103/38 (59) 87 12/28/19 16:00 80 12/28/19 16:00 97.7 119 21 105/41 (62) 90 12/28/19 16:00 21 105/41 Mechanical Ventilator 80 12/28/19 16:00 105/41 12/28/19 16:00 113 12/28/19 16:00 Mechanical Ventilator 12/28/19 15:45 117 21 114/43 (66) 91 12/28/19 15:30 115 20 115/41 (65) 93 12/28/19 15:00 26 109/72 Mechanical Ventilator 80 12/28/19 15:00 117/47 12/28/19 15:00 113 22 117/47 (70) 93 12/28/19 14:41 115 25 80 12/28/19 14:30 114 21 125/45 (71) 95 12/28/19 14:15 113 21 128/47 (74) 95 12/28/19 14:00 21 131/42 Mechanical Ventilator 80 12/28/19 14:00 131/42 12/28/19 14:00 111 21 131/42 (71) 96 12/28/19 13:30 112 18 131/50 (77) 96 12/28/19 13:00 22 120/55 Mechanical Ventilator 80 12/28/19 13:00 120/55 12/28/19 13:00 120 22 120/55 (76) 96 12/28/19 12:30 113/55 12/28/19 12:30 120 24 111/55 (73) 96 12/28/19 12:15 99.2 120 21 113/55 (74) 95 12/28/19 12:00 118 12/28/19 12:00 21 113/55 Mechanical Ventilator 80 12/28/19 12:00 113/55 12/28/19 12:00 80 12/28/19 12:00 Mechanical Ventilator 12/28/19 12:00 121 24 112/53 (72) 94 12/28/19 11:30 120 23 116/50 (72) 93 12/28/19 11:05 113/52 12/28/19 11:00 122 19 113/52 (72) 93 12/28/19 11:00 19 113/52 Mechanical Ventilator 80 12/28/19 11:00 113/52 12/28/19 10:45 122 20 124/51 (75) 94 12/28/19 10:37 124 25 80 12/28/19 10:30 122 21 123/49 (73) 94 12/28/19 10:15 120 20 119/48 (71) 95 12/28/19 10:00 20 121/50 Mechanical Ventilator 80 12/28/19 10:00 121/50 12/28/19 10:00 118 20 121/50 (73) 95 12/28/19 09:45 119 20 121/50 (73) 96 12/28/19 09:30 119 20 127/53 (77) 97 12/28/19 09:15 118 20 121/55 (77) 98 12/28/19 09:00 21 122/50 Mechanical Ventilator 80 12/28/19 09:00 122/50 12/28/19 09:00 120 21 122/50 (74) 99 Intake and Output 12/28/19 12/29/19 19:00 07:00 Intake Total 1649.935 ml 1759.170 ml Output Total 1525 ml 50 ml Balance 124.935 ml 1709.170 ml Free Water 90 ml IV Total 1129.935 ml 1249.170 ml Tube Feeding 420 ml 420 ml Other 100 ml Output Urine Total 5 ml 0 ml Stool Total 20 ml 50 ml Hemodialysis UF 1500 ml General Appearance: no acute distress Respiratory: chest wall non-tender, decreased breath sounds Cardiovascular: normal peripheral pulses, normal rate Abdomen: normal bowel sounds Laboratory Tests 12/29/19 05:25: White Blood Count 35.1*H, Red Blood Count 2.45L, Hemoglobin 7.3L, Hematocrit 23.3L, Mean Corpuscular Volume 95, Mean Corpuscular Hemoglobin 29.8, Mean Corpuscular Hemoglobin Concent 31.5L, Red Cell Distribution Width 17.1H, Platelet Count 267, Mean Platelet Volume 7.6, Neutrophils (%) (Auto) , Lymphocytes (%) (Auto) , Monocytes (%) (Auto) , Eosinophils (%) (Auto) , Basophils (%) (Auto) , Differential Total Cells Counted 100, Neutrophils % ( Manual) 84H, Lymphocytes % (Manual) 3L, Monocytes % (Manual) 1, Eosinophils % ( Manual) 0, Basophils % (Manual) 0, Band Neutrophils 12H, Platelet Estimate Adequate, Platelet Morphology Normal, Polychromasia 1+, Hypochromasia 1+, Anisocytosis 1+, Activated Partial Thromboplast Time 57H, Sodium Level 136, Potassium Level 4.1, Chloride Level 97L, Carbon Dioxide Level 28, Anion Gap 12, Blood Urea Nitrogen 36H, Creatinine 2.5H, Estimat Glomerular Filtration Rate 26.7, Glucose Level 177#H, Calcium Level 9.2, Phosphorus Level 4.4, Magnesium Level 2.6H, Total Bilirubin 1.0, Aspartate Amino Transf (AST/SGOT) 56H, Alanine Aminotransferase (ALT/SGPT) 35, Alkaline Phosphatase 268H, Total Protein 7.2, Albumin 1.8L, Globulin 5.4, Albumin/Globulin Ratio 0.3L, Random Vancomycin Level 12.4 12/29/19 08:36: Arterial Blood pH 7.015*L, Arterial Blood Partial Pressure CO2 128.7*H, Arterial Blood Partial Pressure O2 45.6*L, Arterial Blood HCO3 32.1H, Arterial Blood Oxygen Saturation 71.1*L, Arterial Blood Base Excess 0.1, Melecio Test Positive Current Medications Medications (Trade) Dose Ordered Sig/Vicki Route PRN Reason Start Time Stop Time Status Last Admin Dose Admin Acetaminophen (Tylenol) 650 mg Q4H PRN NG Temp >100.5 12/06/19 14:15 01/05/20 14:14 12/29/19 01:08 Acetaminophen (Tylenol) 650 mg Q4H PRN RECTAL Mild Pain (Pain Scale 1-3) 12/04/19 11:45 01/03/20 11:44 12/06/19 19:17 Chlorhexidine Gluconate (Arely-Hex 2%) 1 applic DAILY@2000 TOPIC 12/05/19 20:00 03/04/20 19:59 12/28/19 20:44 Dextrose (Dextrose 50%) 25 ml Q30M PRN IV Hypoglycemia 11/29/19 14:15 02/27/20 14:14 Dextrose (Dextrose 50%) 50 ml Q30M PRN IV Hypoglycemia 11/29/19 14:15 02/27/20 14:14 Fentanyl Citrate 250 ml @ 0 mls/hr Q24H IV 12/27/19 11:00 03/26/20 10:59 12/29/19 04:18 Folic Acid (Folate) 1 mg DAILY NG 12/18/19 09:00 01/17/20 08:59 12/28/19 08:17 Heparin Sodium/ Dextrose 500 ml @ 43.072 mls/ hr ADJUST PER PROTOCOL IV 12/29/19 06:45 01/28/20 06:44 12/29/19 06:45 Hydralazine HCl (Apresoline) 10 mg Q4H PRN IV For High Blood Pressure 11/29/19 15:15 02/27/20 15:14 Loperamide HCl (Imodium) 2 mg Q6H PRN NG Diarrhea 12/12/19 12:45 01/11/20 12:44 Meropenem 500 mg/ Sodium Chloride 50 ml @ 100 mls/hr Q24H IVPB 12/28/19 21:00 01/02/20 20:59 12/28/19 20:46 Micafungin Sodium 100 mg/Sodium Chloride 100 ml @ 100 mls/hr Q24H IVPB 12/24/19 22:00 12/31/19 21:59 12/28/19 21:55 Midazolam HCl 100 ml @ 0 mls/hr Q24H PRN IV Restlessness 12/24/19 16:30 12/31/19 16:29 12/25/19 16:31 Midodrine (Pro-Amatine) 10 mg THREE TIMES A DAY NG 12/27/19 13:00 03/11/20 12:59 12/28/19 17:33 Norepinephrine Bitartrate 8 mg/ Dextrose 250 ml @ 0 mls/hr Q24H IV 12/18/19 09:00 01/17/20 08:59 12/29/19 04:56 Ondansetron HCl (Zofran) 4 mg Q6H PRN IVP Nausea & Vomiting 11/29/19 14:15 12/29/19 14:14 Pantoprazole (Protonix) 40 mg DAILY IVP 11/30/19 12:15 12/30/19 12:14 12/28/19 08:17 Sevelamer Carbonate (Renvela) 800 mg THREE TIMES A DAY NG 12/22/19 13:00 03/21/20 12:59 12/28/19 17:33 Vancomycin HCl (Vanco rx to dose) 1 ea DAILY PRN MISC Per rx protocol 12/08/19 19:30 01/07/20 19:29 Vancomycin HCl 1 gm/Dextrose 275 ml @ 183.708 mls/hr ONCE IVPB 12/29/19 09:00 12/29/19 11:00 Vitamin B Complex/ Vit C/Folic Acid (Nephrovite) 1 tab DAILY NG 12/16/19 09:00 01/15/20 08:59 12/28/19 08:16 Assessment/Plan Assessment/Plan IMPRESSION: 1. Bilateral pneumonia. 2. Positive COVID-19. 3. Respiratory failure. DISCUSSION: Intubated On AC 20; FiO2 100; PEEP 3; SaO2 80% Oxygenation much worse today; PaO2 45 only On empiric IV heparin for possible PE Mediastinal PTX; stable; continue low PEEP ventilation Hold proning On Fentanyl On HD now S/p Actemra Continue PEEP 3 Continue vent Needs more HD Discussed with renal Tray Tolentino Omar Syed MD December 29, 2019 08:59
[2019-12-29] MEDS ORDERED: Vancomycin 1gm in D5W 275ml IVPB SCH (09:00)
--- NOTE | 2019-12-29 09:00 | NUR ---
NURSE NOTES: Patient's rectal temperature read 92.5 degrees Fahrenheit. Placed patient on warming blanket and covered patient with extra blankets. Turned and repositioned patient, oral care given, oral suctioning, and endotracheal suctioning done.
[2019-12-29] MEDS: Nephrovite tab (Rena-Vite) NG SCH (09:04)
[2019-12-29] MEDS: Pantoprazole Inj IVP SCH (09:04)
[2019-12-29] MEDS: Midodrine 10mg tab NG SCH (09:04)
[2019-12-29] MEDS: Renvela 800mg Pkt NG SCH (09:04)
--- NOTE | 2019-12-29 09:52 | Urology Progress Note ---
Assessment/Plan Assessment/Plan: 1. Phimosis. 2. Retention. 3. Hematuria. 4. Pyuria. 5. Proteinuria. 6. Acute kidney injury. 7. Meatal stenosis. monitor clinically maintain barnes, placed 12/04 hand irrigate PRN monitor urine output and renal fxn consider renal imaging abx as ordered HD per nephrology grave prognosis Subjective Allergies: Coded Allergies: No Known Allergies (Unverified , 11/29/19) Subjective remains on vent, still with minimal urine output, HD Objective Last 24 Hour Vital Signs Date Time Temp Pulse Resp B/P (MAP) Pulse Ox O2 Delivery O2 Flow Rate FiO2 12/29/19 08:00 100 12/29/19 08:00 99 20 117/52 (73) 80 12/29/19 08:00 Mechanical Ventilator 12/29/19 08:00 20 117/52 Endotracheal Tube 100 12/29/19 08:00 117/52 12/29/19 08:00 102 12/29/19 07:30 100 20 119/52 (74) 82 12/29/19 07:15 103 20 118/51 (73) 82 12/29/19 07:00 28 119/52 Mechanical Ventilator 100 12/29/19 07:00 119/52 12/29/19 07:00 103 20 118/54 (75) 85 12/29/19 06:45 106 20 108/49 (68) 75 12/29/19 06:43 101 20 100 12/29/19 06:30 107 20 116/52 (73) 80 12/29/19 06:15 106 20 122/51 (74) 87 12/29/19 06:00 28 121/52 Mechanical Ventilator 100 12/29/19 06:00 121/52 12/29/19 06:00 108 19 121/52 (75) 91 12/29/19 05:45 110 21 117/50 (72) 91 12/29/19 05:30 108 20 115/54 (74) 89 12/29/19 05:15 112 21 92 12/29/19 05:00 112 21 117/53 (74) 93 12/29/19 05:00 28 101/70 Mechanical Ventilator 100 12/29/19 05:00 101/70 12/29/19 04:56 81/45 12/29/19 04:55 81/45 12/29/19 04:45 108 20 81/45 (57) 92 12/29/19 04:32 100 12/29/19 04:30 113 21 111/49 (69) 93 12/29/19 04:18 19 128/56 Mechanical Ventilator 15.0 90 12/29/19 04:15 109 20 102/46 (64) 93 12/29/19 04:00 97.9 114 22 113/53 (73) 96 12/29/19 04:00 114 12/29/19 04:00 Mechanical Ventilator 12/29/19 04:00 100 12/29/19 04:00 102/46 12/29/19 03:45 114 26 116/53 (74) 96 12/29/19 03:30 116 21 115/52 (73) 96 12/29/19 03:15 118 19 128/56 (80) 100 12/29/19 03:09 121 29 90 12/29/19 03:00 121 30 112/51 (71) 96 12/29/19 03:00 30 112/51 Mechanical Ventilator 90 12/29/19 03:00 112/51 12/29/19 02:45 123 27 111/51 (71) 96 12/29/19 02:30 126 30 108/48 (68) 96 12/29/19 02:15 128 30 99/48 (65) 97 12/29/19 02:00 130 29 102/50 (67) 98 12/29/19 02:00 30 99/48 Mechanical Ventilator 90 12/29/19 02:00 99/48 12/29/19 01:38 100.9 12/29/19 01:30 135 36 94/47 (63) 96 12/29/19 01:00 101.4 132 33 98/47 (64) 90 12/29/19 01:00 33 95/45 Mechanical Ventilator 90 12/29/19 01:00 94/45 12/29/19 00:30 131 33 97/49 (65) 93 12/29/19 00:00 80 12/29/19 00:00 131 12/29/19 00:00 Mechanical Ventilator 12/29/19 00:00 30 105/44 Mechanical Ventilator 90 12/29/19 00:00 105/44 12/29/19 00:00 99.8 129 32 96/50 (65) 93 12/28/19 23:33 79/37 12/28/19 23:30 119 24 79/37 (51) 90 12/28/19 23:08 124 34 80 12/28/19 23:00 27 84/42 Mechanical Ventilator 80 12/28/19 23:00 84/42 12/28/19 23:00 124 27 103/52 (69) 96 12/28/19 22:30 122 28 113/52 (72) 97 12/28/19 22:00 122 28 109/50 (69) 95 12/28/19 22:00 27 107/48 Mechanical Ventilator 80 12/28/19 22:00 107/48 12/28/19 21:30 119 23 115/53 (73) 96 12/28/19 21:00 117 22 111/49 (69) 95 12/28/19 21:00 25 114/50 Mechanical Ventilator 80 12/28/19 21:00 114/50 12/28/19 20:45 117 26 113/54 (73) 95 12/28/19 20:30 117 20 117/55 (75) 96 12/28/19 20:15 115 21 117/51 (73) 96 12/28/19 20:00 Mechanical Ventilator 12/28/19 20:00 22 117/51 Mechanical Ventilator 80 12/28/19 20:00 117/51 12/28/19 20:00 99.0 115 18 137/60 (85) 99 12/28/19 19:57 113 25 80 12/28/19 19:00 23 125/59 Mechanical Ventilator 80 12/28/19 19:00 125/59 12/28/19 19:00 114 23 125/59 (81) 99 12/28/19 18:30 115 20 131/56 (81) 99 12/28/19 18:00 118 25 122/60 (80) 99 12/28/19 18:00 25 122/60 Mechanical Ventilator 80 12/28/19 18:00 122/60 12/28/19 17:45 122 26 114/49 (70) 98 12/28/19 17:30 98.8 123 21 116/46 (69) 97 12/28/19 17:04 97/31 12/28/19 17:00 124 25 97/31 (53) 86 12/28/19 17:00 25 97/31 Mechanical Ventilator 80 12/28/19 16:33 123 20 98/32 (54) 88 12/28/19 16:30 122 22 97/33 (54) 87 12/28/19 16:27 120 22 91/35 (53) 82 12/28/19 16:25 120 23 86/38 (54) 84 12/28/19 16:15 119 23 103/38 (59) 87 12/28/19 16:00 80 12/28/19 16:00 97.7 119 21 105/41 (62) 90 12/28/19 16:00 21 105/41 Mechanical Ventilator 80 12/28/19 16:00 105/41 12/28/19 16:00 113 12/28/19 16:00 Mechanical Ventilator 12/28/19 15:45 117 21 114/43 (66) 91 12/28/19 15:30 115 20 115/41 (65) 93 12/28/19 15:00 26 109/72 Mechanical Ventilator 80 12/28/19 15:00 117/47 12/28/19 15:00 113 22 117/47 (70) 93 12/28/19 14:41 115 25 80 12/28/19 14:30 114 21 125/45 (71) 95 12/28/19 14:15 113 21 128/47 (74) 95 12/28/19 14:00 21 131/42 Mechanical Ventilator 80 12/28/19 14:00 131/42 12/28/19 14:00 111 21 131/42 (71) 96 12/28/19 13:30 112 18 131/50 (77) 96 12/28/19 13:00 22 120/55 Mechanical Ventilator 80 12/28/19 13:00 120/55 12/28/19 13:00 120 22 120/55 (76) 96 12/28/19 12:30 113/55 12/28/19 12:30 120 24 111/55 (73) 96 12/28/19 12:15 99.2 120 21 113/55 (74) 95 12/28/19 12:00 118 12/28/19 12:00 21 113/55 Mechanical Ventilator 80 12/28/19 12:00 113/55 12/28/19 12:00 80 12/28/19 12:00 Mechanical Ventilator 12/28/19 12:00 121 24 112/53 (72) 94 12/28/19 11:30 120 23 116/50 (72) 93 12/28/19 11:05 113/52 12/28/19 11:00 122 19 113/52 (72) 93 12/28/19 11:00 19 113/52 Mechanical Ventilator 80 12/28/19 11:00 113/52 12/28/19 10:45 122 20 124/51 (75) 94 12/28/19 10:37 124 25 80 12/28/19 10:30 122 21 123/49 (73) 94 12/28/19 10:15 120 20 119/48 (71) 95 12/28/19 10:00 20 121/50 Mechanical Ventilator 80 12/28/19 10:00 121/50 12/28/19 10:00 118 20 121/50 (73) 95 Intake and Output 12/28/19 12/29/19 19:00 07:00 Intake Total 1649.935 ml 1759.170 ml Output Total 1525 ml 50 ml Balance 124.935 ml 1709.170 ml Free Water 90 ml IV Total 1129.935 ml 1249.170 ml Tube Feeding 420 ml 420 ml Other 100 ml Output Urine Total 5 ml 0 ml Stool Total 20 ml 50 ml Hemodialysis UF 1500 ml Microbiology Date/Time Source Procedure Growth Status 12/22/19 16:15 Blood Blood Culture - Final NO GROWTH AFTER 5 DAYS Complete 12/16/19 16:00 Sputum Gram Stain - Final Complete 12/16/19 16:00 Sputum Sputum Culture - Final NORMAL UPPER RESPIRATORY ALISIA PRESENT Complete 12/23/19 04:00 Stool Clostridium difficile Toxin Assay - Final Complete 12/23/19 04:00 Indwelling Cath Urine Culture - Final NO GROWTH AFTER 48 HOURS Complete Current Medications Medications (Trade) Dose Ordered Sig/Vicki Route PRN Reason Start Time Stop Time Status Last Admin Dose Admin Acetaminophen (Tylenol) 650 mg Q4H PRN NG Temp >100.5 12/06/19 14:15 01/05/20 14:14 12/29/19 01:08 Acetaminophen (Tylenol) 650 mg Q4H PRN RECTAL Mild Pain (Pain Scale 1-3) 12/04/19 11:45 01/03/20 11:44 12/06/19 19:17 Chlorhexidine Gluconate (Arely-Hex 2%) 1 applic DAILY@1999 TOPIC 12/05/19 20:00 03/04/20 19:59 12/28/19 20:44 Dextrose (Dextrose 50%) 25 ml Q30M PRN IV Hypoglycemia 11/29/19 14:15 02/27/20 14:14 Dextrose (Dextrose 50%) 50 ml Q30M PRN IV Hypoglycemia 11/29/19 14:15 02/27/20 14:14 Fentanyl Citrate 250 ml @ 0 mls/hr Q24H IV 12/27/19 11:00 03/26/20 10:59 12/29/19 04:18 Folic Acid (Folate) 1 mg DAILY NG 12/18/19 09:00 01/17/20 08:59 12/29/19 09:05 Heparin Sodium/ Dextrose 500 ml @ 43.072 mls/ hr ADJUST PER PROTOCOL IV 12/29/19 06:45 01/28/20 06:44 12/29/19 06:45 Hydralazine HCl (Apresoline) 10 mg Q4H PRN IV For High Blood Pressure 11/29/19 15:15 02/27/20 15:14 Loperamide HCl (Imodium) 2 mg Q6H PRN NG Diarrhea 12/12/19 12:45 01/11/20 12:44 Meropenem 500 mg/ Sodium Chloride 50 ml @ 100 mls/hr Q24H IVPB 12/28/19 21:00 01/02/20 20:59 12/28/19 20:46 Micafungin Sodium 100 mg/Sodium Chloride 100 ml @ 100 mls/hr Q24H IVPB 12/24/19 22:00 12/31/19 21:59 12/28/19 21:55 Midazolam HCl 100 ml @ 0 mls/hr Q24H PRN IV Restlessness 12/24/19 16:30 12/31/19 16:29 12/25/19 16:31 Midodrine (Pro-Amatine) 10 mg THREE TIMES A DAY NG 12/27/19 13:00 03/11/20 12:59 12/29/19 09:04 Norepinephrine Bitartrate 8 mg/ Dextrose 250 ml @ 0 mls/hr Q24H IV 12/18/19 09:00 01/17/20 08:59 12/29/19 04:56 Ondansetron HCl (Zofran) 4 mg Q6H PRN IVP Nausea & Vomiting 11/29/19 14:15 12/29/19 14:14 Pantoprazole (Protonix) 40 mg DAILY IVP 11/30/19 12:15 12/30/19 12:14 12/29/19 09:04 Sevelamer Carbonate (Renvela) 800 mg THREE TIMES A DAY NG 12/22/19 13:00 03/21/20 12:59 12/29/19 09:04 Vancomycin HCl (Vanco rx to dose) 1 ea DAILY PRN MISC Per rx protocol 12/08/19 19:30 01/07/20 19:29 Vancomycin HCl 1 gm/Dextrose 275 ml @ 183.708 mls/hr ONCE IVPB 12/29/19 09:00 12/29/19 11:00 12/29/19 09:05 Vitamin B Complex/ Vit C/Folic Acid (Nephrovite) 1 tab DAILY NG 12/16/19 09:00 01/15/20 08:59 12/29/19 09:04 Laboratory Tests 12/29/19 05:25: White Blood Count 35.1*H, Red Blood Count 2.45L, Hemoglobin 7.3L, Hematocrit 23.3L, Mean Corpuscular Volume 95, Mean Corpuscular Hemoglobin 29.8, Mean Corpuscular Hemoglobin Concent 31.5L, Red Cell Distribution Width 17.1H, Platelet Count 267, Mean Platelet Volume 7.6, Neutrophils (%) (Auto) , Lymphocytes (%) (Auto) , Monocytes (%) (Auto) , Eosinophils (%) (Auto) , Basophils (%) (Auto) , Differential Total Cells Counted 100, Neutrophils % ( Manual) 84H, Lymphocytes % (Manual) 3L, Monocytes % (Manual) 1, Eosinophils % ( Manual) 0, Basophils % (Manual) 0, Band Neutrophils 12H, Platelet Estimate Adequate, Platelet Morphology Normal, Polychromasia 1+, Hypochromasia 1+, Anisocytosis 1+, Activated Partial Thromboplast Time 57H, Sodium Level [Pending] , Potassium Level [Pending], Chloride Level [Pending], Carbon Dioxide Level [ Pending], Anion Gap 12, Blood Urea Nitrogen [Pending], Creatinine [Pending], Estimat Glomerular Filtration Rate [Pending], Glucose Level [Pending], Calcium Level [Pending], Phosphorus Level 4.4, Magnesium Level 2.6H, Total Bilirubin 1.0 , Aspartate Amino Transf (AST/SGOT) 56H, Alanine Aminotransferase (ALT/SGPT) 35 , Alkaline Phosphatase 268H, Total Protein 7.2, Albumin 1.8L, Globulin 5.4, Albumin/Globulin Ratio 0.3L, Random Vancomycin Level 12.4 12/29/19 08:36: Arterial Blood pH 7.015*L, Arterial Blood Partial Pressure CO2 128.7*H, Arterial Blood Partial Pressure O2 45.6*L, Arterial Blood HCO3 32.1H, Arterial Blood Oxygen Saturation 71.1*L, Arterial Blood Base Excess 0.1, Melecio Test Positive Height (Feet): 5 Height (Inches): 6.00 Weight (Pounds): 151 Objective stable no bleeding at prepuce barnes indwelling, marge urine Kai Berger MD December 29, 2019 09:52
--- NOTE | 2019-12-29 10:58 | NUR ---
NURSE NOTES: On reassessment patient's rectal temperature is 95.6 degrees. Warming blanket and extra blankets remain on patient.
--- NOTE | 2019-12-29 12:24 | Nephrology Progress Note ---
Assessment/Plan Plan #ALBARO- concerns for developing ischemic ATN in the setting of sepsis- r/o vanco toxicity - r/o COVID nephropathy - now with likely ATN #Hyperkalemia due to renal insuffiency - exacerbated by acidosis #COID sepsis #COVID pneumonia #hypoxemic respiratary failure #HTN- now in shock #mediastinal PTX - next HD today - fio2 up to 100 - concerns for PE - started on heparin drip for PE - neuro eval for - lack of response off sedation - midodorine 10mg q8hr - add sevelamer 800mg TID - monitor I&Os - daily weights - monitor lytes closely -add nephrovite - GOALS of care discussion - continue pressor support to maintain MAP > 65- continue levo - continue fentanyl dip - abx per ID- on vanco and meropenem - vent management per pulm -Abd Xray shows mediastinal PTX - too high risk for thorocotomy Subjective ROS Limited/Unobtainable: Yes Subjective plan for gain HD today again fio2 80 today concerns for PE started on heparin drip for PE not responsive off sedation neurology consulted remains oliguric on levo Abd Xray shows mediastinal PTX Objective Objective Last 24 Hour Vital Signs Date Time Temp Pulse Resp B/P (MAP) Pulse Ox O2 Delivery O2 Flow Rate FiO2 12/29/19 11:00 97.0 112 22 94/43 (60) 80 12/29/19 10:58 113 20 100 12/29/19 10:30 109 23 104/46 (65) 84 12/29/19 10:22 108/49 12/29/19 10:00 103 21 111/51 (71) 89 12/29/19 09:45 102 20 114/52 (72) 90 12/29/19 09:30 101 20 116/57 (76) 90 12/29/19 09:15 101 20 122/59 (80) 89 12/29/19 09:00 101 20 120/53 (75) 86 12/29/19 09:00 102 20 100 12/29/19 08:30 92.5 101 20 112/48 (69) 77 12/29/19 08:00 100 12/29/19 08:00 99 20 117/52 (73) 80 12/29/19 08:00 Mechanical Ventilator 12/29/19 08:00 20 117/52 Endotracheal Tube 100 12/29/19 08:00 117/52 12/29/19 08:00 102 12/29/19 07:30 100 20 119/52 (74) 82 12/29/19 07:15 103 20 118/51 (73) 82 12/29/19 07:00 28 119/52 Mechanical Ventilator 100 12/29/19 07:00 119/52 12/29/19 07:00 103 20 118/54 (75) 85 12/29/19 06:45 106 20 108/49 (68) 75 12/29/19 06:43 101 20 100 12/29/19 06:30 107 20 116/52 (73) 80 12/29/19 06:15 106 20 122/51 (74) 87 12/29/19 06:00 28 121/52 Mechanical Ventilator 100 12/29/19 06:00 121/52 12/29/19 06:00 108 19 121/52 (75) 91 12/29/19 05:45 110 21 117/50 (72) 91 12/29/19 05:30 108 20 115/54 (74) 89 12/29/19 05:15 112 21 92 12/29/19 05:00 112 21 117/53 (74) 93 12/29/19 05:00 28 101/70 Mechanical Ventilator 100 12/29/19 05:00 101/70 12/29/19 04:56 81/45 12/29/19 04:55 81/45 12/29/19 04:45 108 20 81/45 (57) 92 12/29/19 04:32 100 12/29/19 04:30 113 21 111/49 (69) 93 12/29/19 04:18 19 128/56 Mechanical Ventilator 15.0 90 12/29/19 04:15 109 20 102/46 (64) 93 12/29/19 04:00 97.9 114 22 113/53 (73) 96 12/29/19 04:00 114 12/29/19 04:00 Mechanical Ventilator 12/29/19 04:00 100 12/29/19 04:00 102/46 12/29/19 03:45 114 26 116/53 (74) 96 12/29/19 03:30 116 21 115/52 (73) 96 12/29/19 03:15 118 19 128/56 (80) 100 12/29/19 03:09 121 29 90 12/29/19 03:00 121 30 112/51 (71) 96 12/29/19 03:00 30 112/51 Mechanical Ventilator 90 12/29/19 03:00 112/51 12/29/19 02:45 123 27 111/51 (71) 96 12/29/19 02:30 126 30 108/48 (68) 96 12/29/19 02:15 128 30 99/48 (65) 97 12/29/19 02:00 130 29 102/50 (67) 98 12/29/19 02:00 30 99/48 Mechanical Ventilator 90 12/29/19 02:00 99/48 12/29/19 01:38 100.9 12/29/19 01:30 135 36 94/47 (63) 96 12/29/19 01:00 101.4 132 33 98/47 (64) 90 12/29/19 01:00 33 95/45 Mechanical Ventilator 90 12/29/19 01:00 94/45 12/29/19 00:30 131 33 97/49 (65) 93 12/29/19 00:00 80 12/29/19 00:00 131 12/29/19 00:00 Mechanical Ventilator 12/29/19 00:00 30 105/44 Mechanical Ventilator 90 12/29/19 00:00 105/44 12/29/19 00:00 99.8 129 32 96/50 (65) 93 12/28/19 23:33 79/37 12/28/19 23:30 119 24 79/37 (51) 90 12/28/19 23:08 124 34 80 12/28/19 23:00 27 84/42 Mechanical Ventilator 80 12/28/19 23:00 84/42 12/28/19 23:00 124 27 103/52 (69) 96 12/28/19 22:30 122 28 113/52 (72) 97 12/28/19 22:00 122 28 109/50 (69) 95 12/28/19 22:00 27 107/48 Mechanical Ventilator 80 12/28/19 22:00 107/48 12/28/19 21:30 119 23 115/53 (73) 96 12/28/19 21:00 117 22 111/49 (69) 95 12/28/19 21:00 25 114/50 Mechanical Ventilator 80 5/16/20 21:00 114/50 12/28/19 20:45 117 26 113/54 (73) 95 12/28/19 20:30 117 20 117/55 (75) 96 12/28/19 20:15 115 21 117/51 (73) 96 12/28/19 20:00 Mechanical Ventilator 12/28/19 20:00 22 117/51 Mechanical Ventilator 80 12/28/19 20:00 117/51 12/28/19 20:00 99.0 115 18 137/60 (85) 99 12/28/19 19:57 113 25 80 12/28/19 19:00 23 125/59 Mechanical Ventilator 80 12/28/19 19:00 125/59 12/28/19 19:00 114 23 125/59 (81) 99 12/28/19 18:30 115 20 131/56 (81) 99 12/28/19 18:00 118 25 122/60 (80) 99 12/28/19 18:00 25 122/60 Mechanical Ventilator 80 12/28/19 18:00 122/60 12/28/19 17:45 122 26 114/49 (70) 98 12/28/19 17:30 98.8 123 21 116/46 (69) 97 12/28/19 17:04 97/31 12/28/19 17:00 124 25 97/31 (53) 86 12/28/19 17:00 25 97/31 Mechanical Ventilator 80 12/28/19 16:33 123 20 98/32 (54) 88 12/28/19 16:30 122 22 97/33 (54) 87 12/28/19 16:27 120 22 91/35 (53) 82 12/28/19 16:25 120 23 86/38 (54) 84 12/28/19 16:15 119 23 103/38 (59) 87 12/28/19 16:00 80 12/28/19 16:00 97.7 119 21 105/41 (62) 90 12/28/19 16:00 21 105/41 Mechanical Ventilator 80 12/28/19 16:00 105/41 12/28/19 16:00 113 12/28/19 16:00 Mechanical Ventilator 12/28/19 15:45 117 21 114/43 (66) 91 12/28/19 15:30 115 20 115/41 (65) 93 12/28/19 15:00 26 109/72 Mechanical Ventilator 80 12/28/19 15:00 117/47 12/28/19 15:00 113 22 117/47 (70) 93 12/28/19 14:41 115 25 80 12/28/19 14:30 114 21 125/45 (71) 95 12/28/19 14:15 113 21 128/47 (74) 95 12/28/19 14:00 21 131/42 Mechanical Ventilator 80 12/28/19 14:00 131/42 12/28/19 14:00 111 21 131/42 (71) 96 12/28/19 13:30 112 18 131/50 (77) 96 12/28/19 13:00 22 120/55 Mechanical Ventilator 80 12/28/19 13:00 120/55 12/28/19 13:00 120 22 120/55 (76) 96 12/28/19 12:30 113/55 12/28/19 12:30 120 24 111/55 (73) 96 Intake and Output 12/28/19 12/29/19 19:00 07:00 Intake Total 1649.935 ml 1759.170 ml Output Total 1525 ml 50 ml Balance 124.935 ml 1709.170 ml Free Water 90 ml IV Total 1129.935 ml 1249.170 ml Tube Feeding 420 ml 420 ml Other 100 ml Output Urine Total 5 ml 0 ml Stool Total 20 ml 50 ml Hemodialysis UF 1500 ml Laboratory Tests 12/29/19 05:25: White Blood Count 35.1*H, Red Blood Count 2.45L, Hemoglobin 7.3L, Hematocrit 23.3L, Mean Corpuscular Volume 95, Mean Corpuscular Hemoglobin 29.8, Mean Corpuscular Hemoglobin Concent 31.5L, Red Cell Distribution Width 17.1H, Platelet Count 267, Mean Platelet Volume 7.6, Neutrophils (%) (Auto) , Lymphocytes (%) (Auto) , Monocytes (%) (Auto) , Eosinophils (%) (Auto) , Basophils (%) (Auto) , Differential Total Cells Counted 100, Neutrophils % ( Manual) 84H, Lymphocytes % (Manual) 3L, Monocytes % (Manual) 1, Eosinophils % ( Manual) 0, Basophils % (Manual) 0, Band Neutrophils 12H, Platelet Estimate Adequate, Platelet Morphology Normal, Polychromasia 1+, Hypochromasia 1+, Anisocytosis 1+, Activated Partial Thromboplast Time 57H, Sodium Level 136, Potassium Level 4.1, Chloride Level 97L, Carbon Dioxide Level 28, Anion Gap 12, Blood Urea Nitrogen 36H, Creatinine 2.5H, Estimat Glomerular Filtration Rate 26.7, Glucose Level 177#H, Calcium Level 9.2, Phosphorus Level 4.4, Magnesium Level 2.6H, Total Bilirubin 1.0, Aspartate Amino Transf (AST/SGOT) 56H, Alanine Aminotransferase (ALT/SGPT) 35, Alkaline Phosphatase 268H, Total Protein 7.2, Albumin 1.8L, Globulin 5.4, Albumin/Globulin Ratio 0.3L, Random Vancomycin Level 12.4 12/29/19 08:36: Arterial Blood pH 7.015*L, Arterial Blood Partial Pressure CO2 128.7*H, Arterial Blood Partial Pressure O2 45.6*L, Arterial Blood HCO3 32.1H, Arterial Blood Oxygen Saturation 71.1*L, Arterial Blood Base Excess 0.1, Melecio Test Positive Height (Feet): 5 Height (Inches): 6.00 Weight (Pounds): 151 Objective General Appearance: other - intubated- proned Lines, tubes and drains: central line HEENT: normocephalic, atraumatic Respiratory/Chest: rhonchi - bilaterally Cardiovascular/Chest: other - tachycardic Extremities: pitting Dorian Soriano M.D. December 29, 2019 12:24
--- NOTE | 2019-12-29 12:32 | General Progress Note ---
Progress Note Progress Note note Patient well-known to be seen cared for since admission. Patient has recently had significant decline and this morning had a cardiovascular event CODE BLUE called patient was evaluated ACLS protocol initiated 2 rounds including epinephrine were completed with no regain of vitals, pulse, electrocardio activity. Unfortunately unable to resuscitate patient given all maximal medical efforts in a critically ill patient that has been deteriorating over the course of a few days now. Time of 1225. Thank you and it has been a pleasure caring for Wade Parks Eliot Ashford December 29, 2019 12:32
--- NOTE | 2019-12-29 14:33 | Cardiac Electrophysiology PN ---
Assessment/Plan Assessment/Plan 1. Atrial fib with RVR 170 before intubation on 12/04/19. 2. Sinus Tachycardia due to COVID-19 pneumonia. 3. Septic shock. 4. Respiratory failure, on the Vent by Dr. Cortes. 5. Acute renal failure. On HD per Dr. Sanchez via [facility] [place] 6. S/p hypotension and arrest post HD today coded twice that failed. Subjective Subjective Coded after HD today and attempts at resuscitation failed Objective Last 24 Hour Vital Signs Date Time Temp Pulse Resp B/P (MAP) Pulse Ox O2 Delivery O2 Flow Rate FiO2 12/29/19 12:00 71 23 63/29 (40) 58 12/29/19 11:42 115 25 83/39 (54) 78 12/29/19 11:30 121 23 87/45 (59) 80 12/29/19 11:15 114 22 94/43 (60) 80 12/29/19 11:00 97.0 112 22 94/43 (60) 80 12/29/19 10:58 113 20 100 12/29/19 10:30 109 23 104/46 (65) 84 12/29/19 10:22 108/49 12/29/19 10:00 103 21 111/51 (71) 89 12/29/19 09:45 102 20 114/52 (72) 90 12/29/19 09:30 101 20 116/57 (76) 90 12/29/19 09:15 101 20 122/59 (80) 89 12/29/19 09:00 101 20 120/53 (75) 86 12/29/19 09:00 102 20 100 12/29/19 08:30 92.5 101 20 112/48 (69) 77 12/29/19 08:00 100 12/29/19 08:00 99 20 117/52 (73) 80 12/29/19 08:00 Mechanical Ventilator 12/29/19 08:00 20 117/52 Endotracheal Tube 100 12/29/19 08:00 117/52 12/29/19 08:00 102 12/29/19 07:30 100 20 119/52 (74) 82 12/29/19 07:15 103 20 118/51 (73) 82 12/29/19 07:00 28 119/52 Mechanical Ventilator 100 12/29/19 07:00 119/52 12/29/19 07:00 103 20 118/54 (75) 85 12/29/19 06:45 106 20 108/49 (68) 75 12/29/19 06:43 101 20 100 12/29/19 06:30 107 20 116/52 (73) 80 12/29/19 06:15 106 20 122/51 (74) 87 12/29/19 06:00 28 121/52 Mechanical Ventilator 100 12/29/19 06:00 121/52 12/29/19 06:00 108 19 121/52 (75) 91 12/29/19 05:45 110 21 117/50 (72) 91 12/29/19 05:30 108 20 115/54 (74) 89 12/29/19 05:15 112 21 92 12/29/19 05:00 112 21 117/53 (74) 93 12/29/19 05:00 28 101/70 Mechanical Ventilator 100 12/29/19 05:00 101/70 12/29/19 04:56 81/45 12/29/19 04:55 81/45 12/29/19 04:45 108 20 81/45 (57) 92 12/29/19 04:32 100 12/29/19 04:30 113 21 111/49 (69) 93 12/29/19 04:18 19 128/56 Mechanical Ventilator 15.0 90 12/29/19 04:15 109 20 102/46 (64) 93 12/29/19 04:00 97.9 114 22 113/53 (73) 96 12/29/19 04:00 114 12/29/19 04:00 Mechanical Ventilator 12/29/19 04:00 100 12/29/19 04:00 102/46 12/29/19 03:45 114 26 116/53 (74) 96 12/29/19 03:30 116 21 115/52 (73) 96 12/29/19 03:15 118 19 128/56 (80) 100 12/29/19 03:09 121 29 90 12/29/19 03:00 121 30 112/51 (71) 96 12/29/19 03:00 30 112/51 Mechanical Ventilator 90 12/29/19 03:00 112/51 12/29/19 02:45 123 27 111/51 (71) 96 12/29/19 02:30 126 30 108/48 (68) 96 12/29/19 02:15 128 30 99/48 (65) 97 12/29/19 02:00 130 29 102/50 (67) 98 12/29/19 02:00 30 99/48 Mechanical Ventilator 90 12/29/19 02:00 99/48 12/29/19 01:38 100.9 12/29/19 01:30 135 36 94/47 (63) 96 12/29/19 01:00 101.4 132 33 98/47 (64) 90 12/29/19 01:00 33 95/45 Mechanical Ventilator 90 12/29/19 01:00 94/45 12/29/19 00:30 131 33 97/49 (65) 93 12/29/19 00:00 80 12/29/19 00:00 131 12/29/19 00:00 Mechanical Ventilator 12/29/19 00:00 30 105/44 Mechanical Ventilator 90 12/29/19 00:00 105/44 12/29/19 00:00 99.8 129 32 96/50 (65) 93 12/28/19 23:33 79/37 12/28/19 23:30 119 24 79/37 (51) 90 12/28/19 23:08 124 34 80 12/28/19 23:00 27 84/42 Mechanical Ventilator 80 12/28/19 23:00 84/42 12/28/19 23:00 124 27 103/52 (69) 96 12/28/19 22:30 122 28 113/52 (72) 97 12/28/19 22:00 122 28 109/50 (69) 95 12/28/19 22:00 27 107/48 Mechanical Ventilator 80 12/28/19 22:00 107/48 12/28/19 21:30 119 23 115/53 (73) 96 12/28/19 21:00 117 22 111/49 (69) 95 12/28/19 21:00 25 114/50 Mechanical Ventilator 80 12/28/19 21:00 114/50 12/28/19 20:45 117 26 113/54 (73) 95 12/28/19 20:30 117 20 117/55 (75) 96 12/28/19 20:15 115 21 117/51 (73) 96 12/28/19 20:00 Mechanical Ventilator 12/28/19 20:00 22 117/51 Mechanical Ventilator 80 12/28/19 20:00 117/51 12/28/19 20:00 99.0 115 18 137/60 (85) 99 12/28/19 19:57 113 25 80 12/28/19 19:00 23 125/59 Mechanical Ventilator 80 12/28/19 19:00 125/59 12/28/19 19:00 114 23 125/59 (81) 99 12/28/19 18:30 115 20 131/56 (81) 99 12/28/19 18:00 118 25 122/60 (80) 99 12/28/19 18:00 25 122/60 Mechanical Ventilator 80 12/28/19 18:00 122/60 12/28/19 17:45 122 26 114/49 (70) 98 12/28/19 17:30 98.8 123 21 116/46 (69) 97 12/28/19 17:04 97/31 12/28/19 17:00 124 25 97/31 (53) 86 12/28/19 17:00 25 97/31 Mechanical Ventilator 80 12/28/19 16:33 123 20 98/32 (54) 88 12/28/19 16:30 122 22 97/33 (54) 87 12/28/19 16:27 120 22 91/35 (53) 82 12/28/19 16:25 120 23 86/38 (54) 84 12/28/19 16:15 119 23 103/38 (59) 87 12/28/19 16:00 80 12/28/19 16:00 97.7 119 21 105/41 (62) 90 12/28/19 16:00 21 105/41 Mechanical Ventilator 80 12/28/19 16:00 105/41 12/28/19 16:00 113 12/28/19 16:00 Mechanical Ventilator 12/28/19 15:45 117 21 114/43 (66) 91 12/28/19 15:30 115 20 115/41 (65) 93 12/28/19 15:00 26 109/72 Mechanical Ventilator 80 12/28/19 15:00 117/47 12/28/19 15:00 113 22 117/47 (70) 93 12/28/19 14:41 115 25 80 Intake and Output 12/28/19 12/29/19 19:00 07:00 Intake Total 1649.935 ml 1759.170 ml Output Total 1525 ml 50 ml Balance 124.935 ml 1709.170 ml Free Water 90 ml IV Total 1129.935 ml 1249.170 ml Tube Feeding 420 ml 420 ml Other 100 ml Output Urine Total 5 ml 0 ml Stool Total 20 ml 50 ml Hemodialysis UF 1500 ml Laboratory Tests Test 12/29/19 05:25 12/29/19 08:36 White Blood Count 35.1 K/UL (4.8-10.8) *H Red Blood Count 2.45 M/UL (4.70-6.10) L Hemoglobin 7.3 G/DL (14.2-18.0) L Hematocrit 23.3 % (42.0-52.0) L Mean Corpuscular Volume 95 FL (80-99) Mean Corpuscular Hemoglobin 29.8 PG (27.0-31.0) Mean Corpuscular Hemoglobin Concent 31.5 G/DL (32.0-36.0) L Red Cell Distribution Width 17.1 % (11.6-14.8) H Platelet Count 267 K/UL (150-450) Mean Platelet Volume 7.6 FL (6.5-10.1) Neutrophils (%) (Auto) % (45.0-75.0) Lymphocytes (%) (Auto) % (20.0-45.0) Monocytes (%) (Auto) % (1.0-10.0) Eosinophils (%) (Auto) % (0.0-3.0) Basophils (%) (Auto) % (0.0-2.0) Differential Total Cells Counted 100 Neutrophils % (Manual) 84 % (45-75) H Lymphocytes % (Manual) 3 % (20-45) L Monocytes % (Manual) 1 % (1-10) Eosinophils % (Manual) 0 % (0-3) Basophils % (Manual) 0 % (0-2) Band Neutrophils 12 % (0-8) H Platelet Estimate Adequate Platelet Morphology Normal Polychromasia 1+ Hypochromasia 1+ Anisocytosis 1+ Activated Partial Thromboplast Time 57 SEC (23-33) H Sodium Level 136 MMOL/L (136-145) Potassium Level 4.1 MMOL/L (3.5-5.1) Chloride Level 97 MMOL/L (98-107) L Carbon Dioxide Level 28 MMOL/L (21-32) Anion Gap 12 mmol/L (5-15) Blood Urea Nitrogen 36 mg/dL (7-18) H Creatinine 2.5 MG/DL (0.55-1.30) H Estimat Glomerular Filtration Rate 26.7 mL/min (>60) Glucose Level 177 MG/DL (74-106) #H Calcium Level 9.2 MG/DL (8.5-10.1) Phosphorus Level 4.4 MG/DL (2.5-4.9) Magnesium Level 2.6 MG/DL (1.8-2.4) H Total Bilirubin 1.0 MG/DL (0.2-1.0) Aspartate Amino Transf (AST/SGOT) 56 U/L (15-37) H Alanine Aminotransferase (ALT/SGPT) 35 U/L (12-78) Alkaline Phosphatase 268 U/L (46-116) H Total Protein 7.2 G/DL (6.4-8.2) Albumin 1.8 G/DL (3.4-5.0) L Globulin 5.4 g/dL Albumin/Globulin Ratio 0.3 (1.0-2.7) L Random Vancomycin Level 12.4 ug/mL Arterial Blood pH 7.015 (7.350-7.450) Arterial Blood Partial Pressure CO2 128.7 mmHg (35.0-45.0) *H Arterial Blood Partial Pressure O2 45.6 mmHg (75.0-100.0) Arterial Blood HCO3 32.1 mmol/L (22.0-26.0) H Arterial Blood Oxygen Saturation 71.1 % (95-100) *L Arterial Blood Base Excess 0.1 (-2-2) Melecio Test Positive Microbiology Date/Time Source Procedure Growth Status 12/28/19 16:45 Blood Blood Culture - Preliminary Resulted Objective Raul Appiah MD December 29, 2019 14:33
[2019-12-29] MEDS ORDERED: NS 275ml ONE (15:53)
--- NOTE | 2019-12-29 19:16 | Discharge Summary ---
Discharge Summary Hospital Course Date of Admission Nov 29, 2019 at 12:35 Date of Discharge December 29, 2019 at 12:25 Admitting Diagnosis HYPOXEMIA, COVID- 19 HPI Wade Covarrubias is a 59 year old male who was admitted on Nov 29, 2019 at 12:35 for Hypoxemia,Covid 19 Hospital Course 9-year-old male with PMH of HTN presents with acute respiratory distress. Pt w/ known COVID exposure by his son who was living with him at the time. On admission pt presented with 60% room air, was started on BiPAP, CXR revealed b/ l peripheral infiltrates consistent w/COVID, developed sepsis and was intubated on 12/03 and transferred to ICU. Pt is COVID positive. NEURO #Acute severe toxic metabolic encephalopathy, multifactorial, 2/2 hypoxia, hepatic dysfunction, renal dysfunction, sepsis -per nurse, pt unresponsive and tachypneic off sedation -unable to obtain CT head 2/2 COVID -Neuro exam per neurology on 12/25 w/minimal eye movements, breaths over vent, no signs of cerebral cortical function -s/p EEG on 12/26, pending final read by Dr. Wilder -Neurology, Dr. Wilder, following, recs appreciated. Signed off RESP/ID #Acute Hypoxic Respiratory Failure 2/2 COVID +, HCAP +--> WBC peak on 12/21, now downtrending #Septic Shock #PTX/Pneumomediastinum--> to high risk for intervention #diarrhea #Tachypnea likely 2/2 PE #respiratory acidosis -s/p Intubation 12/03 -Appreciate Pulm/--> Vent Management -Fentanyl for Sedation 2/2 elevated TG -Pressor support, maintain MAP > 65 -ABG per pulm -Vent management per pulmonology. Appreciate recommendations -Patient is s/p IL-6 inhibitor and Plaquenil -s/p Vanc (12/09-12/15), cefepime (12/09-12/15), flagyl (12/09-12/15) -Trend predictive markers Q3 days per Critical care team; CRP, Pro-Calcitonin, Ferritin, Ddimer -Surgery to monitor PTX -ID: meropenem, vancomycin, micafungin - ABX per ID -cont heparin ggt for presumed PE given tachypnea, monitor for signs of bleeding. NEPHRO #ARF now on HD #hyponatremia, suspect hypervolemic -12/04: Right femoral HD cath placed -very poor UO, pt requiring daily HD -Continue HD per Nephro GI #Shock Liver - resolved -Liver enzymes also likely elevated 2/2 COVID + state -Appreciate GI recs CV #Tachycardia -s/p AFib now converted to sinus, no further episodes of afib -echo pending COVID -Appreciate Cardio management DVT/GI ppx, Tube Feeding, FULL CODE At the time of my involvement, the patient's condition was critical with high potential for and/or physiologic deterioration secondary to acute respiratory failureas delineated in the note above. On the above date of service, I spent a total [id number], managing , and providing critical care services to this patient, including time spent documenting these activities, counseling patient/family, and coordinating care. Critical care services performed include: Telemetry Review Hemodynamic measurement interpretation Laboratory data review and interpretation Ventilatorsetting review, management, Discussion of care plans with patient, family, and/or surrogate decision makers Discussion of patient's care with primary medical team, surgical team, and/or consulting service Decision to obtain further radiologic evaluation, after consideration of risk/ benefit ratio Review of most recent microbiology results with assessment and modification of antimicrobial coverage Discussion of patient's code status and further advancement towards the ultimate goals of care Plan outlined above discussed with patient/family, RN, ICU team, and involved physicians/consultants. Time of note may not reflect time of encounter. Discharge Discharge Vital Signs Last Vital Signs Date Time Temp Pulse Resp B/P (MAP) Pulse Ox O2 Delivery O2 Flow Rate FiO2 12/29/19 12:00 Mechanical Ventilator 12/29/19 12:00 71 23 63/29 (40) 58 12/29/19 12:00 100 12/29/19 11:00 97.0 12/29/19 04:18 15.0 Discharge Disposition Patient was discharged to Richard Mckinney D.O. December 29, 2019 19:16
== END 2019-12-29 12:25 | disposition expired | DRG 720 ==
LOC: EDBD 10:46 → EMR 11:33 → ICU 12:35 → EDBEDREQ 14:16 → ICU 17:39
PROC: 0BH17EZ Insertion of Endotracheal Airway into Trachea, Via Natural or Artificial Opening (ICD-10-PCS; principal; 2019-12-04)
PROC: 5A1955Z Respiratory Ventilation, Greater than 96 Consecutive Hours (ICD-10-PCS; principal; 2019-12-04)
PROC: 06HM33Z Insertion of Infusion Device into Right Femoral Vein, Percutaneous Approach (ICD-10-PCS; 2019-12-05)
PROC: 5A1D70Z Performance of Urinary Filtration, Intermittent, Less than 6 Hours Per Day (ICD-10-PCS; 2019-12-06)
DX: A41.89 Other specified sepsis (principal); J96.01 Acute respiratory failure with hypoxia; U07.1 COVID-19; J12.89 Other viral pneumonia; R65.21 Severe sepsis with septic shock; I12.9 Hypertensive chronic kidney disease with stage 1 through stage 4 chronic kidney disease, or unspecified chronic kidney disease; N18.9 Chronic kidney disease, unspecified; N17.0 Acute kidney failure with tubular necrosis; E87.5 Hyperkalemia; J98.2 Interstitial emphysema; N47.1 Phimosis; R33.9 Retention of urine, unspecified; R31.9 Hematuria, unspecified; N35.919 Unspecified urethral stricture, male, unspecified site; D64.9 Anemia, unspecified; D69.6 Thrombocytopenia, unspecified; I48.91 Unspecified atrial fibrillation; G93.41 Metabolic encephalopathy; K72.00 Acute and subacute hepatic failure without coma; E87.1 Hypo-osmolality and hyponatremia; E87.0 Hyperosmolality and hypernatremia
CPT/HCPCS: 36415; 36600; 71045; 74018; 80048; 80053; 80202; 81003; 82044; 82248; 82270; 82378; 82550; 82553; 82570; 82607; 82728; 82746; 82803; 82962; 83540; 83550; 83605; 83615; 83735; 83880; 84100; 84133; 84300; 84443; 84478; 84484; 85007; 85025; 85362; 85379; 85384; 85610; 85730; 86705; 86706; 86709; 86803; 87040; 87070; 87081; 87086; 87181; 87205; 87324; 87340; 87635; 92950; 93005; 94002; 94003; 94660; 94664; 95819; 96365; 96367; 96372; 96375; 99285; J0171; J3490; J7030; J8499